=== PATIENT | female | born 1985 | race Caucasian/White ===

== ENCOUNTER 2017-08-25 17:19 | Emergency (ER) | payer MEDICAID, SELFPAY ==
[2017-08-25 17:21] VITALS: BP 165/117; PULSE 97; RESP 16; TEMP 36.7; O2SAT 100; BMI 36.6
--- NOTE | 2017-08-25 17:44 | EKG12_ITS ---
Test Reason : CP Blood Pressure : / mmHG Vent. Rate : 095 BPM Atrial Rate : 095 BPM P-R Int : 158 ms QRS Dur : 100 ms QT Int : 354 ms P-R-T Axes : 066 057 040 degrees QTc Int : 444 ms Normal sinus rhythm Nonspecific T wave abnormality Abnormal ECG Confirmed by LISE CASTAÑEDA, DONTRELL ([id number]), business editor BLANKA BRIGGS ([id number]) on 08/27/2017 3:35:40 PM Referred By: YEHUDA/DAVID Confirmed By:DONTRELL LEZAMA MD
[2017-08-25 18:12] LABS: Absolute Lymphocyte Count 1.82 X10^3/ul (0.83-4.51); Basophil# 0.02 X10^3/uL; Basophil% 0.3 % (0-1); Eosinophil# 0.06 X10^3/uL; Eosinophils% 0.8 % (0-5); Hematocrit 40.1 % (37-47); Hemoglobin 13.3 g/dl (12.0-15.0); Lymphocyte # 1.82 X10^3/ul (4.0); Lymphocyte % 24.3 % (19-41); Mean Corp Hgb Conc 33.2 g/gl (32-36); Mean Corpuscular Hgb 27.1 pg (27.0-32.0); Mean Corpuscular Volume 81.8 fL (81-99); Mean Platelet Vol. 9.5 fl (6.2-12.0); Monocyte# 0.55 X10^3/uL; Monocyte% 7.3 % (0-10); Neutrophil # 5.03 X10^3/uL (2.7-7.7); Neutrophil % 67.2 % (47-70); POSITIVE COUNT NO; POSITIVE DIFFERENTIAL NO; POSITIVE MORPHOLOGY NO; Platelet Count 319 K/mm3 (150-450); RBC Distribution Width CV 13.8 % (11.6-14.6); RBC Distribution Width SD 41.3 fl (35.1-43.9); White Blood Count 7.5 K/mm3 (4.4-11.0)
--- NOTE | 2017-08-25 18:25 | RAD_ITS ---
STUDY: X-RAY CHEST REASON FOR EXAM: Female, 32 years old. Chest pain TECHNIQUE: Single AP portable view of the chest. COMPARISON: None. 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 The lungs are clear and expanded. There is no demonstrated pleural abnormality. Normal size heart. Normal mediastinum and roland. Normal visualized pulmonary arteries. Normal visualized aortic arch and descending thoracic aorta. Normal visualized thoracic spine. Normal visualized ribs, clavicles, and shoulders. There is no demonstrated abnormality of the visualized soft tissue structures of the upper abdomen. RAD/Chest 1 View (Portable) IMPRESSION: Normal x-ray examination of the chest. Electronically Signed: Rhett Gage MD at 19:30 EDT , Service support ,
[2017-08-25 18:30] LABS: Anion Gap 6 (5-15); BUN 6 mg/dL (7-18); BUN/Creat Ratio 10.1 RATIO (10-20); Calcium,Total 9.2 mg/dL (8.5-10.1); Chloride 105 mmol/L (98-107); EST Glomerular Filtration Rate 126 mL/min (>60); Est Glom Filt Rate - Afr Amer 152 mL/min (>60); Estimated Creatinine Clearance 108.43 ml/min; Glucose 95 mg/dL (74-106); Potassium 3.4 mmol/L (3.5-5.1); Sodium Level 138 mmol/L (136-145)
--- NOTE | 2017-08-25 18:32 | CT_ITS ---
STUDY: CTA OF THE BRAIN REASON FOR EXAM: Female, 32 years old. Right arm weakness RADIATION DOSAGE (If Supplied By Facility): CTDIvol = ( 20.90 ) mGy, DLP = ( 2308.43 ) mGycm TECHNIQUE: CT angiography was performed with a multi-detector CT scanner. Data acquisition was obtained from the skull base through the vertex following intravenous administration of ml of . MIP images were reconstructed from the axial data set. Post-processing of the angiographic images was performed, with multiplanar reformation and 3D reconstruction. Individualized dose optimization techniques were used for this CT. COMPARISON: None. FINDINGS: Normal bilateral petrous carotid arteries. Normal right cavernous carotid artery with a normal supraclinoid bifurcation. Normal left cavernous carotid artery with a normal supraclinoid bifurcation. Normal right A1 segments of the anterior cerebral artery. Normal left A1 segments of the anterior cerebral artery. Anterior communicating artery not visualized consistent with normal variant. Normal bilateral A2 segments of the anterior cerebral arteries. Normal right M1 and M2 segments of the middle cerebral arteries, with a normal M1 bifurcation. Normal left M1 and M2 segments of the middle cerebral arteries, with a normal M1 bifurcation. Posterior communicating arteries are not identified consistent with normal variant. Normal bilateral vertebral arteries. Normal basilar artery with a normal basilar bifurcation. The visualized bilateral superior cerebellar (SCA) arteries are normal. Normal bilateral P1, P2 and visualized P3 segments of the posterior cerebral arteries. There is no demonstrated aneurysm of the [place]. There is no demonstrated abnormality of the visualized brain. CT/CTA Head W/WO Contrast IMPRESSION: Normal [place] without a demonstrated aneurysm or hemodynamically significant stenosis. Electronically Signed: Albert Nunez MD at 19:34 EDT , Service support ,
--- NOTE | 2017-08-25 18:32 | CT_ITS ---
STUDY: CTA NECK WITH CONTRAST REASON FOR EXAM: Female, 32 years old. Shortness of breath, right chest pain and right arm weakness dizziness elevated blood pressure RADIATION DOSAGE (If Supplied By Facility): CTDIvol = ( 20.90 ) mGy, DLP = ( 2308.43 ) mGycm TECHNIQUE: CT angiography with multi-detector data acquisition was performed from the aortic arch to the skull base following intravenous administration of 100ML ml of Isovue 370 contrast. MIP images were reconstructed from the axial data set. Post-processing of the angiographic images was performed, with multiplanar reformation and 3D reconstruction. The reconstructed images were obtained in the partial venous phase. Individualized dose optimization techniques were used for this CT. COMPARISON: None. FINDINGS: AORTIC ARCH: Normal visualized aortic arch. Normal origins of the brachiocephalic, left common carotid, and left subclavian arteries. RIGHT CAROTID ARTERIES: Normal right common carotid artery (CCA). Normal right common carotid bulb. Normal origin of the right internal carotid (ICA) artery without a hemodynamically significant stenosis. There is atherosclerotic tortuous elongation of the cervical portion of the right internal carotid artery. Normal origin of the right external carotid artery (ECA). LEFT CAROTID ARTERIES: Normal left common carotid artery (CCA). Normal left common carotid bulb. Normal origin of the left internal carotid (ICA) artery without a hemodynamically significant stenosis. Normal visualized cervical portion of the left internal carotid artery. Normal origin of the left external carotid artery (ECA). VERTEBRAL ARTERIES: Normal bilateral vertebral arteries. CT/CTA Neck W/WO Contrast IMPRESSION: Normal bilateral cervical carotid and vertebral arteries. Electronically Signed: Edelmira Livingston MD at 19:39 EDT Tel , Service support ,
--- NOTE | 2017-08-25 18:32 | CT_ITS ---
STUDY: CTA CHEST REASON FOR EXAM: Female, 32 years old. Chest pain and shortness of breath right arm weakness RADIATION DOSAGE (If Supplied By Facility): CTDIvol = ( 20.90 ) mGy, DLP = ( 2308.43 ) mGycm TECHNIQUE: The examination was performed with the intravenous administration of 100ML ml of Isovue 370 contrast material. Post-processing of the angiographic images was performed, with multiplanar reformation and 3D reconstruction. Individualized dose optimization techniques were used for this CT. COMPARISON: Chest x-ray August 25, 2017 FINDINGS: Normal enhancement of the main pulmonary artery and right and left pulmonary arteries. Normal enhancement of the bilateral peripheral pulmonary arteries. There is no demonstrated pulmonary embolism. Normal thoracic aorta and visualized great vessels. There is no demonstrated aortic dissection. Normal heart and pericardium. Normal mediastinum. Normal hilar regions. Normal visualized trachea and bronchi. There is motion artifact demonstrated. Allowing for motion artifact there is a suggestion of areas of possible air trapping within the lungs. Normal pleura. Normal chest wall structures. At T9-T10 there is a bridging osteophyte. The liver is borderline enlarged and fatty infiltrated. CT/CTA Chest W/WO Contrast IMPRESSION: Normal CTA chest examination, without a demonstrated pulmonary embolism or arterial dissection. There is substantial artifact on the lung windows allowing for this, there may be air trapping which can indicate underlying chronic obstructive pulmonary disease. Electronically Signed: Edelmira Livingston MD at 19:43 EDT Tel , Service support ,
[2017-08-25 18:38] VITALS: BP 154/86; PULSE 88; RESP 18; O2SAT 100
[2017-08-25 19:13] VITALS: BP 153/84; PULSE 96; RESP 26; O2SAT 97
[2017-08-25 19:56] LABS: Bacteria 0 SEEN /hpf (None Seen); Mucous, Urine 0 SEEN /hpf (<or=2+); Red Blood Cells-Urine 0 SEEN /hpf (0-5); White Blood Cells 0 SEEN /hpf (0-5)
[2017-08-25 20:10] VITALS: BP 150/83; PULSE 86; RESP 16; O2SAT 97
[2017-08-25 20:18] LABS: Color, Urine Yellow (Yellow); Glucose, Dipstick Normal (Normal); Ketone-Dipstick Negative (Negative); Leukocyte Esterase-Dipstick 25 /ul (Negative); Nitrite-Dipstick Negative (Negative); Occult Blood-Urine Negative /ul (Negative); Protein-Dipstick Negative (Negative); Specific Gravity, Urine 1.015 (1.002-1.030); Urine Bilirubin Dipstick Negative (Negative); Urine Clarity Clear (Clear); Urine Urobilinogen Normal (Normal)
[2017-08-25 20:24] LABS: Squamous Epithelial Cells - UA 0-5 SEEN /hpf (5-10)
[2017-08-25 20:27] LABS: Amphetamine Urine VISTA NEGATIVE (<1000 ng/mL); Barbiturate Urine VISTA NEGATIVE (< 200 ng/mL); Benzodiazepine Urine VISTA NEGATIVE (< 200 ng/mL); Cocaine Urine VISTA NEGATIVE (< 300 ng/mL); Ecstacy Urine VISTA NEGATIVE (< 500 ng/mL); Methadone Urine VISTA NEGATIVE (< 300 ng/mL); PCP Urine VISTA NEGATIVE (< 25 ng/mL); THC Urine VISTA NEGATIVE (< 50 ng/mL); Vista UDS pH Range 7
--- NOTE | 2017-08-25 20:49 | ED.DCSUM_ITS ---
- ER Visit Summary Date of Service: 08/25/17 Chief Complaint: Chest pain History of Present Illness: The patient is a 32 F presenting with right-sided chest pain. This started a couple of hours prior to arrival. Pain is on the right side of her chest. She complains of shortness of breath as well. Following the chest pain, she began having a tingling sensation in her right arm. She denies PE/DVT risk factors. She has a history of ADHD. She is not a smoker. No other complaints. Physical Examination: Vitals are stable. Patient is afebrile. Alert no acute distress. HEENT exam is unremarkable. Neck is supple. No meningismus Lungs are clear and equal bilaterally. Heart is regular rate and rhythm. Abdomen is soft nontender nondistended. Extremities are unremarkable. Skin is warm and dry. No focal neurologic deficit. NIH 0 Remainder of exam is unremarkable. Emergency Department Course and Treatment: Chest x-ray shows no acute process. CTA chest shows normal CTA chest examination, without a demonstrated pulmonary embolism or arterial dissection. There is substantial artifact on the lung windows allowing for this, there may be air trapping which can indicate underlying chronic obstructive pulmonary disease. CTA head and neck normal [place] without a demonstrated aneurysm or hemodynamically significant stenosis. Normal bilateral cervical carotid and vertebral arteries. EKG is sinus rate of 95. CBC, chemistries unremarkable. Troponin is negative. Urinalysis and urine tox are unremarkable. Patient now states that she is under a lot of stress. She states the tingling in her arm is resolved. When she arrived she was tachypneic, this is now improved. Her chest pain has resolved. She is advised to follow-up with her primary care physician. She is advised to return to ED if worsening complaints. Disposition: Discharge home Impression: Atypical chest pain, right upper extremity paresthesia This note was generated with [facility] dictation software. It may contain incorrect words, spelling, and punctuation that were not noted in review of the chart prior to signing ED Disposition - Plan for ED Patient: Chief Complaint: General Illness Referrals: Harriett Flood MD [Primary Care Provider] -
--- NOTE | 2017-08-25 20:52 | ED.DEP ---
ED Disposition - Plan for ED Patient: Chief Complaint: General Illness Instructions: ED Chest Pain Atypical Unkn Cause Referrals: Harriett Flood MD [Primary Care Provider] -
[2017-08-25 21:13] VITALS: BP 141/99; PULSE 87; RESP 18
== END 2017-08-25 21:14 | disposition home or self-care (01) ==
LOC: ED 18:20
PROVIDERS: Emergency Provider Emergency Medicine; Family Provider Internal Medicine; PCP Internal Medicine
DX: R07.89 Other chest pain (principal); R20.2 Paresthesia of skin; F90.9 Attention-deficit hyperactivity disorder, unspecified type
CPT/HCPCS: 70496; 70498; 71045; 71275; 80048; 80307; 81001; 84484; 85025; 93005; 99284; Q9967; A4216

== ENCOUNTER 2019-01-18 14:50 | Inpatient (IN) | payer MEDICAID, SELFPAY ==
[2019-01-18] MEDS: Lactated Ringers 1,000 ML 50 ML IV (15:55)
[2019-01-18] MEDS: Mag Hydrox/Al Hydrox/Simeth 30 ML UDC PO (16:33)
[2019-01-18 16:44] LABS: Absolute Lymphocyte Count 1.26 X10^3/uL (0.83-4.51); Absolute Neutrophil Count 7.9 X10^3/uL (2.0-7.7); Basophil# 0.02 X10^3/uL; Basophil% 0.2 % (0-1); Eosinophil# 0.09 X10^3/uL; Eosinophils% 0.9 % (0-5); Hemoglobin 11.3 g/dL (12.0-15.0); Lymphocyte # 1.26 X10^3/ul (4.0); Lymphocyte % 12.3 % (19-41); Mean Corp Hgb Conc 32.3 g/dL (32-36); Mean Corpuscular Hgb 26.5 pg (27.0-32.0); Mean Platelet Vol. 10.9 fl (6.2-12.0); Monocyte% 8.8 % (0-10); NRBC Flagged by Analyzer 0 % (0-5); Neutrophil # 7.88 X10^3/uL (2.7-7.7); Platelet Count 238 K/mm3 (150-450); RBC Distribution Width CV 13.6 % (11.6-14.6); RBC Distribution Width SD 40.1 fl (35.1-43.9); Red Blood Count 4.27 M/mm3 (4.2-5.4); White Blood Count 10.2 K/mm3 (4.4-11.0)
[2019-01-18 16:45] LABS: Protein, Urine (Random) 17.7 mg/dL (<11.9); Protein:Creat Ratio 258 mg/g CRE (0-200)
[2019-01-18 16:47] LABS: Partial Thromboplast Time 22.1 Seconds (24.1-36.2)
[2019-01-18 17:09] LABS: AST(SGOT) 19 U/L (15-37); Alanine Aminotransfer ALT/SGPT 22 U/L (13-56); Creatinine, Serum 0.43 mg/dL (0.55-1.02); EST Glomerular Filtration Rate 182 mL/min (>60); Est Glom Filt Rate - Afr Amer 220 mL/min (>60)
[2019-01-18] MEDS: Oxytocin 30 units/NS 500 ml 30 UNITS/500 ML IV.SOLN IV (17:09)
[2019-01-18 17:15] VITALS: BMI 47.2
[2019-01-18] MEDS: 0.9% Normal Saline 100 ML IV.SOLN. IY (17:44)
--- NOTE | 2019-01-18 17:51 | PCM.HP.OB ---
History Date of Admission: 01/18/19 Final [place]: 02/03/19 Gestational age: 37 Weeks and 5 Days History of this : This is a 33 year-old, 3 para 2 female who presents at 37-5/7 weeks gestation with elevated blood pressures in the office. Blood pressure in the office today was 154/92. Patient's had some mild intermittent visual changes but no diplopia. No severe headaches. No regular contractions. Good movement. No vaginal bleeding or leaking of fluid. No epigastric pain. Regnancy has been complicated to date by history of hypertension and previous pregnancies, history of depression, maternal obesity with BMI of 47. First 7 pounds 11 ounce at 40 weeks gestation induced for gestational hypertension, second 6 pound 8 ounces induced at 37-5/7 weeks for gestational hypertension. Allergies No Known Allergies Allergy (Verified 01/18/19 16:36) Home Medications: Home Medications Dextroamphetamine/Amphetamine [Adderall 10 mg Tablet] 10 mg PO BID 08/25/17 Multivitamin Tablet 01/18/19 Smoking Status: Former smoker Alcohol: None Number of Fetus(es): 1 History Past Pregnancies: Past Pregnancies Delivery Date Name GA/ Weeks Outcome Route Wt Infant Sex Labor Length Anesthesia Delivery Location Provider FOB Expected Infant Delivery Method: Spontaneous Vaginal Review of Systems Constitutional: Denies: Chills, Fever Eyes: Denies: Blurred vision Cardiovascular: Denies: Chest Pain Respiratory: Denies: Cough Gynecological: Denies: Vaginal bleeding Skin: Denies: Rash Neurological: Denies: Blurred vision, Double vision, Change in Speech Physical Exam General: Alert, Cooperative, No apparent distress Cardiovascular: Regular rate Lungs: Normal air movement Abdomen: Soft, Non-Distended, Gravid, Obese, Appropriate for Gestational Age Extremities:: Other - 2+edema Neurological: Cranial nerves II-XII grossly intact, Deep Tendon Reflexes 2+/4 and Symmetrical. Negative for: Clonus [employer] MEMBER: Normal external genitalia Estimated gestational size: Appropriate for gestational size Presentation: Cephalic Cervix Dilation (cm): 2 Station: -2 Effacement (%): 60 Assessment/Plan This is a 33 year-old, 3 para 2 at 37-5/7 weeks gestation for induction of labor due to gestational hypertension. Blood pressures are not in the severe range here. Will monitor closely. No evidence of preeclampsia with severe features. Risk benefits and alternatives to Costa induction were discussed with the patient, questions were answered to her satisfaction she desires to proceed. Consent was signed. We will proceed with Pitocin, Costa artificial rupture membranes if needed. Group B strep prophylaxis is initiated. May weight is less than 4500 g clinically, pelvis clinically adequate to expect vaginal delivery. Procedure note: Costa was placed over stylette into the internal cervical loss in the usual sterile fashion without difficulty. The balloon was inflated to 30 cc and placement over the internal loss was confirmed. Patient and fetus tolerated the procedure well.
[2019-01-18] MEDS: Lactated Ringers 500 ML 999 ML IV (20:21)
[2019-01-18] MEDS: fentaNYL-bupivacaine (epidural) 100 ML BAG EPIDURAL (21:50)
[2019-01-19] MEDS: Lactated Ringers 1,000 ML 200 ML IV (00:30)
[2019-01-19] MEDS: Oxytocin 30 units/NS 500 ml 30 UNITS/500 ML IV.SOLN 334 UNITS IV (01:42)
--- NOTE | 2019-01-19 01:56 | PCM.OPRPT ---
Vaginal Delivery Maternal Presentation: Medically Indicated Induction Method of Induction: Pitocin, Costa Bulb, Amniotomy Medical Reason for Induction: Gestational Hypertension Amniotic Membrane Rupture Type: Artificial Amniotic Fluid Description: Clear Final [place]: 02/03/19 Final [place] Source: US <20 weeks Gestational age: 37 Weeks and 6 Days Date of Procedure: 01/19/19 Pre-Operative Diagnosis: labor Post-Operative Diagnosis: same Surgery/ Procedure Performed: Spontaneous Vaginal Delivery Type of Anesthesia: Epidural Description of Procedure: A vigorous male infant was delivered ANIL over intact perineum. Tight nuchal cord x2 was easily reduced. The remainder the was delivered with maternal pushing and gentle traction only in less than 15 seconds. The Pitocin infusion was initiated for active management of the third stage. The cord was clamped and cut after 1 minute. The was attended to by the waiting nursing staff. The placenta was delivered spontaneously and intact. The cervix and vagina were intact. Sponge and needle counts were correct. A vaginal sweep was completed by me. Presentation: AARON Placental Delivery Description: Spontaneous Placenta Disposition: [facility] Cord Vessel Description: 3 Vessels Nuchal Cord Compression: Without compression Cord Entanglement: Around neck x 2, tight Drain: Costa to straight drain Estimated Blood Loss: 200 Infant A gender: Male (1 minute): 9 (5 minute): 9 Episiotomy Description: None Laceration: None Medications given after delivery: IV Pitocin Complications: None
[2019-01-19] MEDS: 0.9% Saline Lock 10 ML Syringe IV (04:37)
[2019-01-19 06:28] LABS: Hematocrit 35.2 % (37-47); Hemoglobin 11.4 g/dL (12.0-15.0); Mean Corp Hgb Conc 32.4 g/dL (32-36); Mean Corpuscular Hgb 26.6 pg (27.0-32.0); Mean Corpuscular Volume 82.2 fL (81-99); Mean Platelet Vol. 10.8 fl (6.2-12.0); Platelet Count 230 K/mm3 (150-450); RBC Distribution Width CV 13.6 % (11.6-14.6); RBC Distribution Width SD 40.2 fl (35.1-43.9); Red Blood Count 4.28 M/mm3 (4.2-5.4); White Blood Count 15.4 K/mm3 (4.4-11.0)
[2019-01-19] MEDS: Acetaminophen 500 MG Tablet 1000 MG PO ×2 (08:43→16:43)
[2019-01-19 08:50] VITALS: BP 130/63; PULSE 91; RESP 20; TEMP 36.3
[2019-01-19 12:00] VITALS: BP 123/72; PULSE 81; RESP 16; TEMP 36.2
[2019-01-19 15:39] VITALS: BP 150/89; PULSE 64; RESP 16; TEMP 36.5
[2019-01-19 16:00] VITALS: BP 126/74
[2019-01-19 19:36] VITALS: BP 140/77; PULSE 91; RESP 16; TEMP 36.2; O2SAT 98
[2019-01-20] VITALS (7 sets, daily range): BP systolic 107–141; BP diastolic 62–84; PULSE 72–99; RESP 16–18; TEMP 36.1–36.6; O2SAT 97
[2019-01-20] MEDS: Acetaminophen 500 MG Tablet 1000 MG PO ×2 (01:25→12:55)
[2019-01-20] MEDS: Ibuprofen 600 MG Tablet PO ×2 (08:37→20:40)
--- NOTE | 2019-01-20 09:15 | NURSING ---
Addendum entered by Nelda Carr 01/20/19 09:18: Labetalol 100 mg Original Note: Dr. Martínez in to see patient, wants to start patient on Labetalol TID precautionary for pt.s past high blood pressures and monitor for another 24 hours
[2019-01-20] MEDS: Labetalol 100 MG Tablet PO ×3 (09:45→22:35)
--- NOTE | 2019-01-20 09:47 | PCM.PN.OB ---
Subjective: pain well controlled, average lochia. Denies GUTIERREZ or visual changes, no epigastric pain - Physical Exam Vitals/I&O's: Vital Signs Temp Pulse Resp BP Pulse Ox 97.2 F L 72 16 126/63 H 98 01/20/19 08:15 01/20/19 08:15 01/20/19 08:15 01/20/19 08:15 01/19/19 19:36 Oxygen Delivery Method Room Air Weight: 117.027 kg Body Mass Index (BMI) 47.2 Intake and Output for Last 24 Hours 01/18/19 01/19/19 01/20/19 23:59 23:59 23:59 Intake Total 1482.57 / 1482.57 1530.50 / 1530.50 Output Total 450 / 450 1100 / 1100 Balance 1032.57 / 1032.57 430.50 / 430.50 General: Alert, Cooperative, No apparent distress Abdomen: Soft, Non-Distended, Tender - mildly, appropriately Extremities: Edema - 2+, - - 2+ DTRs, no clonus Current Medications Acetaminophen (Tylenol) 1,000 mg PO Q8H PRN PRN PRN Reason: Pain Score 1-310 Last Admin: 01/20/19 01:25 Dose: 1,000 mg Documented by: Bisacodyl (Dulcolax) 10 mg RECTAL UD PRN PRN Reason: If no BM Dibucaine (Dibucaine) 1 applic TOPICAL TID PRN PRN; Protocol PRN Reason: Discomfort Hydrocortisone (Hytone) 1 applic TOPICAL TID PRN PRN; Protocol PRN Reason: Discomfort Ibuprofen (Motrin) 600 mg PO Q6H PRN PRN PRN Reason: Pain Score 1-3/10 Last Admin: 01/20/19 08:37 Dose: 600 mg Documented by: Labetalol HCl (Trandate) 100 mg PO TID AMAYA Last Admin: 01/20/19 09:45 Dose: 100 mg Documented by: Methylergonovine Maleate (Methergine) 0.2 mg IM X1 PRN PRN Reason: Excess bleeding/uterine atony Ondansetron HCl (Zofran) 4 mg IV Q4H PRN PRN PRN Reason: Nausea Senna/Docusate Sodium (Senokot-S, Joslyn-Colace) 1 - 2 tablet PO DAILY PRN PRN PRN Reason: Constipation Simethicone (Mylicon) 80 mg PO PCHS PRN PRN Reason: Indigestion/Stomach pain Last Admin: 01/19/19 23:58 Dose: 80 mg Documented by: Sodium Chloride () 5 - 15 ml IV UD PRN PRN Reason: SALINE FLUSH Last Admin: 01/19/19 04:37 Dose: 10 ml Documented by: Medical Necessity - Tobacco Use Smoking Status: Former smoker Assessment/Plan PPD#1 s/p gest HTN, BPs elevated, no symptoms of preeclampsia. Start labetalol likely home tomorrow if BP stable and doing well
[2019-01-21 01:11] VITALS: BP 133/77; PULSE 94; RESP 18; TEMP 36.5; O2SAT 97
--- NOTE | 2019-01-21 05:12 | DCINST_ITS ---
Discharge Diet: No Restrictions Discharge Activity: Return to Normal Activity, May not drive while taking narcotic pain medications., May Shower May resume sexual activity in: 4-6 weeks Additional Activity Instructions:: Nothing in the vagina for 4-6 weeks. You may return to work/school in 6 weeks. Call your doctor if your incision/area has: Continuous Slow Oozing, Sudden Increased Bleeding, Increased Pain/ Swelling, Increased Redness, Foul Smelling Discharge Additional Instructions: If you experience any of the following, contact your healthcare provider. * Bleeding that soaks a pad every hour for 2 hours * Fever 100.4 or higher * Unrelieved incision or abdominal pain * Swelling, redness, discharge or bleeding from your incision or episiotomy site * Your incision begins to separate * Problems urinating (including inability to urinate or burning while urinating). * Visual changes * Severe headache * Flu-like symptoms * Pain or redness in one of both of your breasts * Pain, warmth, tenderness or swelling in your legs, especially the calf area * Frequent nausea and vomiting * Symptoms of depression or anxiety If you experience any of the following, call 911 or go to the nearest Emergency Room. * Chest pain * Problems breathing * Seizure activity * Partial or complete paralysis of a body part, slurred speech, weakness or drooping of the face, or a sudden inability to walk or hold your balance Allergies/Adverse Reactions: Allergies No Known Allergies Allergy (Verified 01/18/19 16:36) Medications to take at Discharge Multivitamin Tablet 01/18/19 Labetalol [Trandate (Beta Marce)] 100 mg PO TID #90 tab 01/21/19 The following prescriptions were given: Labetalol [Trandate (Beta Marce)] 100 mg PO TID #90 tab Transmission Status: Sent to [facility] Please Follow Up With: Sanna Martínez MD - [phone] When: Call to make an appointment with your doctor in 6 weeks. If you had elevated Blood Pressure or 4th degree laceration you will need to be seen in 2 weeks. Primary Care Physician: Harriett Flood MD [Primary Care Provider] - Test Results: Test results from this visit will be discussed in further detail at your follow- up appointment, if applicable.
--- NOTE | 2019-01-21 05:12 | PCM.DCVAG ---
Discharge Diet: No Restrictions Discharge Activity: Return to Normal Activity, May not drive while taking narcotic pain medications., May Shower May resume sexual activity in: 4-6 weeks Additional Activity Instructions:: Nothing in the vagina for 4-6 weeks. You may return to work/school in 6 weeks. Call your doctor if your incision/area has: Continuous Slow Oozing, Sudden Increased Bleeding, Increased Pain/ Swelling, Increased Redness, Foul Smelling Discharge Additional Instructions: If you experience any of the following, contact your healthcare provider. Bleeding that soaks a pad every hour for 2 hours Fever 100.4 or higher Unrelieved incision or abdominal pain Swelling, redness, discharge or bleeding from your incision or episiotomy site Your incision begins to separate Problems urinating (including inability to urinate or burning while urinating). Visual changes Severe headache Flu-like symptoms Pain or redness in one of both of your breasts Pain, warmth, tenderness or swelling in your legs, especially the calf area Frequent nausea and vomiting Symptoms of depression or anxiety If you experience any of the following, call 911 or go to the nearest Emergency Room. Chest pain Problems breathing Seizure activity Partial or complete paralysis of a body part, slurred speech, weakness or drooping of the face, or a sudden inability to walk or hold your balance Allergies/Adverse Reactions: Allergies No Known Allergies Allergy (Verified 01/18/19 16:36) Medications to take at Discharge Multivitamin Tablet 01/18/19 Labetalol [Trandate (Beta Marce)] 100 mg PO TID #90 tab 01/21/19 The following prescriptions were given: Labetalol [Trandate (Beta Marce)] 100 mg PO TID #90 tab Transmission Status: Sent to [facility] Please Follow Up With: Sanna Martínez MD - [phone] When: Call to make an appointment with your doctor in 6 weeks. If you had elevated Blood Pressure or 4th degree laceration you will need to be seen in 2 weeks. Primary Care Physician: Harriett Flood MD [Primary Care Provider] - Test Results: Test results from this visit will be discussed in further detail at your follow-up appointment, if applicable.
--- NOTE | 2019-01-21 05:37 | PCM.PN.OB ---
Subjective: Pain well controlled. Denies headache or visual changes. Has not been able to sleep. Would like to go home. Denies epigastric pain. - Physical Exam Vitals/I&O's: Vital Signs Temp Pulse Resp BP Pulse Ox 97.7 F L 94 18 133/77 H 97 01/21/19 01:11 01/21/19 01:11 01/21/19 01:11 01/21/19 01:11 01/21/19 01:11 Oxygen Delivery Method Room Air Weight: 117.027 kg Body Mass Index (BMI) 47.2 Intake and Output for Last 24 Hours 01/19/19 01/20/19 01/21/19 23:59 23:59 23:59 Intake Total 1530.50 / 1530.50 Output Total 1100 / 1100 Balance 430.50 / 430.50 General: Alert, Cooperative, No apparent distress Extremities: Edema - trace Neurological: Cranial nerves II-XII grossly intact, - - no clonus, 2+ DTRs Current Medications Acetaminophen (Tylenol) 1,000 mg PO Q8H PRN PRN PRN Reason: Pain Score 1-310 Last Admin: 01/20/19 12:55 Dose: 1,000 mg Documented by: Bisacodyl (Dulcolax) 10 mg RECTAL UD PRN PRN Reason: If no BM Dibucaine (Dibucaine) 1 applic TOPICAL TID PRN PRN; Protocol PRN Reason: Discomfort Hydrocortisone (Hytone) 1 applic TOPICAL TID PRN PRN; Protocol PRN Reason: Discomfort Ibuprofen (Motrin) 600 mg PO Q6H PRN PRN PRN Reason: Pain Score 1-310 Last Admin: 01/20/19 20:40 Dose: 600 mg Documented by: Labetalol HCl (Trandate) 100 mg PO TID AMAYA Last Admin: 01/20/19 22:35 Dose: 100 mg Documented by: Methylergonovine Maleate (Methergine) 0.2 mg IM X1 PRN PRN Reason: Excess bleeding/uterine atony Ondansetron HCl (Zofran) 4 mg IV Q4H PRN PRN PRN Reason: Nausea Senna/Docusate Sodium (Senokot-S, Joslyn-Colace) 1 - 2 tablet PO DAILY PRN PRN PRN Reason: Constipation Simethicone (Mylicon) 80 mg PO PCHS PRN PRN Reason: Indigestion/Stomach pain Last Admin: 01/19/19 23:58 Dose: 80 mg Documented by: Sodium Chloride () 5 - 15 ml IV UD PRN PRN Reason: SALINE FLUSH Last Admin: 01/19/19 04:37 Dose: 10 ml Documented by: Medical Necessity - Tobacco Use Smoking Status: Former smoker Assessment/Plan day #2 status post vaginal delivery. Blood pressures are stable on labetalol. No symptoms of preeclampsia. Okay to discharge home on labetalol, follow-up in the office within 1 week for blood pressure check. Call or return for any symptoms of preeclampsia. is breast-feeding and doing well.
[2019-01-21] MEDS: Labetalol 100 MG Tablet PO (05:49)
[2019-01-21 08:43] VITALS: BP 143/71; PULSE 98; RESP 18; TEMP 36
--- NOTE | 2019-01-21 09:10 | NURSING ---
mother dc off unit with baby on lap at this time.
== END 2019-01-21 09:10 | disposition home or self-care (01) | DRG 560 ==
PROVIDERS: Admitting Provider Obstetrics & Gynecology; Family Provider Internal Medicine; PCP Internal Medicine; Referring Provider Obstetrics & Gynecology; Visit Provider Obstetrics & Gynecology
DX: O13.4 Gestational [pregnancy-induced] hypertension without significant proteinuria, complicating childbirth (principal); O69.1XX0 Labor and delivery complicated by cord around neck, with compression, not applicable or unspecified; O60.14X0 Preterm labor third trimester with preterm delivery third trimester, not applicable or unspecified; O99.214 Obesity complicating childbirth; E66.9 Obesity, unspecified; Z3A.37 37 weeks gestation of pregnancy; Z37.0 Single live birth; Z87.891 Personal history of nicotine dependence
CPT/HCPCS: 59050; 82565; 82570; 84156; 84450; 84460; 84550; 85025; 85027; 85610; 85730; 86850; 86900; 86901; 99218; J7120; A4216; G0378

== ENCOUNTER 2021-07-27 12:01 | Emergency (ER) | payer MEDICAID, SELFPAY ==
[2021-07-27 12:03] VITALS: BP 163/114; PULSE 104; RESP 18; TEMP 36.4; O2SAT 99; BMI 36.6
--- NOTE | 2021-07-27 13:39 | EDS_ITS ---
HPI HPI - GI History of Present Illness Chief Complaint: Abd Pain Narrative Narrative: 35-year-old female presenting with epigastric pain. She states that sharp in nature. Patient states it started last night and it has been intermittent. Patient took Kaopectate last night with minimal relief. She states he has a history of GERD but only in . Patient has nausea without vomiting. She denies diarrhea or constipation. Denies fever or chills. She has no urinary complaints. Patient does states that her left lower back hurts. She states that this is not severe and it is a mild dull pain. She is not sure if she is anything to injure it. No known trauma. Patient has no loss of bladder bowel control. No urinary tension or saddle anesthesia. PFSH PFSH Medical History ADHD Home Medications Multivitamin Tablet 01/18/19 [History Last Taken 01/16/19] labetalol 100 mg PO TID #90 tab 01/21/19 [Rx Last Taken Unknown] ondansetron 4 mg PO Q8H PRN #14 tab 07/27/21 [Rx Last Taken Unknown] pantoprazole [Protonix] 40 mg PO DAILY #30 tab 07/27/21 [Rx Last Taken Unknown] Allergy/AdvReac Type Severity Reaction Status Date / Time No Known Allergies Allergy Verified 07/27/21 12:03 Surgical History no surgical history Social History Smoking Status: Former smoker ROS ROS ED Constitutional Constitutional ED: Denies chills or fever(s) ENT ENT ED: Denies rhinorrhea or sore throat Cardiovascular Cardiovascular: Denies chest pain or palpitations Respiratory/Chest Respiratory/Chest: Denies cough, dyspnea or sputum Gastrointestinal Gastrointestinal: Reports abdominal pain and nausea; Denies constipation, diarrhea or vomiting Genitourinary Genitourinary ED: Denies dysuria or hematuria Musculoskeletal Musculoskeletal: Reports back pain; Denies arthralgias, myalgias or neck pain Integumentary Denies rash Neurologic Neurologic: Denies headache(s) Psychiatric Psychiatric: Denies anxiety or depression Endocrine Endocrinology: Denies polydipsia or polyuria Hematologic/Lymphatic Hematologic/Lymphatic: Denies easy bleeding or easy bruising EXAM Physical Exam Const Vital Signs: 07/27/21 12:03 07/27/21 15:59 Temperature 97.6 F L Temperature Source Temporal Pulse Rate 104 H Respiratory Rate 18 Blood Pressure 163/114 H 141/75 H Blood Pressure Mean 130 Pulse Ox 99 95 Oxygen Delivery Method Room Air Positive well nourished General Appearance ED: NAD; Negative for pallor HEENT Reports moist mucous membranes normocephalic and atraumatic Eyes PERRL and EOMs intact bilaterally General Eye ED: Negative for pale conjunctiva or scleral icterus Neck supple Resp normal respiratory effort and clear to auscultation bilaterally Cardio regular rate and regular rhythm GI non-distended Auscultation: normoactive bowel sounds Palpation: soft and tender epigastric Back/Spine no CVA tenderness Lumbar Spine / Lower Back: Negative for lumbar spinal tenderness Neuro Sensorium / Orientation: alert, oriented to person, oriented to place and oriented to time Psych mental status grossly normal Skin No no wounds General Skin Exam: Negative for jaundice or pallor Lesions: no lesions Rashes: no rashes MDM MDM MDM Narrative Medical decision making narrative: 35-year-old female presenting with epigastric pain which is sharp and intermittent. She states is worse with eating and typically happens about 30 minutes after meals. Her abdominal exam benign. Negative Sherwood sign. Blood work is obtained and her CBC and CMP are normal. Lipase negative. Urinalysis negative for infection. Patient was treated with Zofran and a GI cocktail and states she has not had a return of her pain. I will discharge home with Protonix and Zofran. I told her about when to avoid while her stomach is upset. She can advance her diet as tolerated. I do not believe at this time with normal lab work and a benign exam that the patient needs any imaging. Impression: 1. Epigastric pain 2. Nausea Lab Data Attestation: I reviewed the patient's lab results. Labs: Laboratory Results - last 24 hr 07/27/21 07/27/21 07/27/21 13:45 13:45 13:50 WBC 6.4 RBC 5.20 Hgb 13.8 Hct 41.4 MCV 79.6 L MCH 26.5 L MCHC 33.3 RDW Std Deviation 40.9 RDW Coeff of María 14.1 Plt Count 343 MPV 9.6 Immature Gran % (Auto) 0.300 Neut % (Auto) 81.0 H Lymph % (Auto) 9.5 L Stephenson % (Auto) 8.7 Eos % (Auto) 0.3 Baso % (Auto) 0.2 Absolute Neuts (auto) 5.2 Absolute Lymphs (auto) 0.61 L Nucleated RBC % 0 Sodium 138 Potassium 3.6 Chloride 105 Carbon Dioxide 25.0 Anion Gap 8 BUN 6 L Creatinine 0.61 Estim Creat Clear Calc 103.75 Est GFR (MDRD) Af Amer 145 Est GFR (MDRD) Non-Af 120 BUN/Creatinine Ratio 9.9 L Glucose 92 Calcium 9.1 Total Bilirubin 0.50 AST 12 L ALT 20 Alkaline Phosphatase 85 Total Protein 7.8 Albumin 4.2 Globulin 3.6 Albumin/Globulin Ratio 1.2 Lipase 139 Urine Color Yellow Urine Clarity Sl. Cloudy Urine pH 6.0 Ur Specific [place] 1.020 Urine Protein 30 H Urine Glucose (UA) Normal Urine Ketones 5 H Urine Occult Blood Negative Urine Nitrite Negative Urine Bilirubin Negative Urine Urobilinogen Normal Ur Leukocyte Esterase 25 H Urine RBC 0 SEEN Urine WBC 0-5 SEEN Ur Squamous Epith Cells 0-5 SEEN Urine Bacteria RARE Urine Mucus 0 SEEN Urine Test Negative Discharge Plan Triage Chief Complaint: Abd Pain Other Complaint: Nausea/Vomiting ED Provider: Malick Saucedo Dx/Rx/DC Orders Instructions: ED Abdominal Pain Unkn Cause Fem, ED PEPTIC ULCER vs GASTRITIS Prescriptions: New pantoprazole [Protonix] 40 mg tablet,delayed release (DR/EC) 40 mg PO DAILY Qty: 30 RF: 0 ondansetron 4 mg tablet,disintegrating 4 mg PO Q8H PRN (Reason: nausea and vomiting) Qty: 14 RF: 0 No Action Multivitamin Tablet RF: 0 labetalol 100 MG tablet 100 mg PO TID Qty: 90 RF: 0 Primary Care Provider: Harriett Flood Referrals: Harriett Flood MD [Primary Care Provider] - Disposition Disposition: Home, Self Care Discharge Date/Time: 07/27/21 16:00
[2021-07-27 13:59] LABS: Absolute Lymphocyte Count 0.61 X10^3/uL (0.83-4.51); Absolute Neutrophil Count 5.2 X10^3/uL (2.0-7.7); Basophil# 0.01 X10^3/uL; Basophil% 0.2 % (0-1); Eosinophil# 0.02 X10^3/uL; Eosinophils% 0.3 % (0-5); Hematocrit 41.4 % (37-47); Hemoglobin 13.8 g/dL (12.0-15.0); Lymphocyte # 0.61 X10^3/ul (0.83-4.51); Lymphocyte % 9.5 % (19-41); Mean Corp Hgb Conc 33.3 g/dL (32-36); Mean Corpuscular Hgb 26.5 pg (27.0-32.0); Mean Corpuscular Volume 79.6 fL (81-99); Mean Platelet Vol. 9.6 fl (6.2-12.0); Monocyte# 0.56 X10^3/uL; Monocyte% 8.7 % (0-10); NRBC Flagged by Analyzer 0 % (0-5); Neutrophil # 5.21 X10^3/uL (2.7-7.7); Platelet Count 343 K/mm3 (150-450); RBC Distribution Width CV 14.1 % (11.6-14.6); RBC Distribution Width SD 40.9 fl (35.1-43.9); White Blood Count 6.4 K/mm3 (4.4-11.0)
[2021-07-27 14:02] LABS: Mucous, Urine 0 SEEN /hpf (<or=2+); Red Blood Cells-Urine 0 SEEN /hpf (0-5)
[2021-07-27] MEDS: Ondansetron 4 MG/2 ML Vial IV (14:02)
[2021-07-27] MEDS: Mag Hydrox/Al Hydrox/Simeth 30 ML UDC PO (14:03)
[2021-07-27 14:05] LABS: Color, Urine Yellow (Yellow); Glucose, Dipstick Normal (Normal); Ketone-Dipstick 5 mg/dl (Negative); Leukocyte Esterase-Dipstick 25 /ul (Negative); Nitrite-Dipstick Negative (Negative); Occult Blood-Urine Negative /ul (Negative); Protein-Dipstick 30 mg/dl (Negative); Urine Bilirubin Dipstick Negative (Negative); Urine Clarity Sl. Cloudy (Clear); Urine Urobilinogen Normal (Normal)
[2021-07-27 14:06] LABS: Internal QC Validated? YES +Cl - CLEAR BKGD; Pregnancy, Urine Negative Negative
[2021-07-27 14:12] LABS: Squamous Epithelial Cells - UA 0-5 SEEN /hpf (5-10); White Blood Cells 0-5 SEEN /hpf (0-5)
[2021-07-27 14:13] LABS: Bacteria RARE /hpf (None Seen)
[2021-07-27 14:17] LABS: ALB/GLOB Ratio 1.2 RATIO (0.9-2.4); AST(SGOT) 12 U/L (15-37); Alanine Aminotransfer ALT/SGPT 20 U/L (13-56); Albumin, Serum 4.2 g/dL (3.2-5.0); Alkaline Phosphatase 85 U/L (45-117); Anion Gap 8 (5-15); BUN 6 mg/dL (7-18); BUN/Creat Ratio 9.9 RATIO (10-20); Calcium,Total 9.1 mg/dL (8.5-10.1); Chloride 105 mmol/L (98-107); Creatinine, Serum 0.61 mg/dL (0.55-1.02); EST Glomerular Filtration Rate 120 mL/min (>60); Est Glom Filt Rate - Afr Amer 145 mL/min (>60); Estimated Creatinine Clearance 103.75 ml/min; Globulin 3.6 g/dL (2.2-4.2); Glucose 92 mg/dL (74-106); Lipase 139 U/L (73-393); Potassium 3.6 mmol/L (3.5-5.1); Protein, Total 7.8 g/dL (6.4-8.2); Sodium Level 138 mmol/L (136-145)
[2021-07-27] MEDS: Acetaminophen 500 MG Tablet 1000 MG PO (14:37)
[2021-07-27 15:59] VITALS: BP 141/75; O2SAT 95
== END 2021-07-27 16:00 | disposition home or self-care (01) ==
PROVIDERS: Emergency Provider Student in an Organized Health Care Education/Training Program; PCP Internal Medicine; Visit Provider Student in an Organized Health Care Education/Training Program
DX: R11.2 Nausea with vomiting, unspecified (principal); Z87.891 Personal history of nicotine dependence; R10.13 Epigastric pain; F90.9 Attention-deficit hyperactivity disorder, unspecified type
CPT/HCPCS: 80053; 81001; 81025; 83690; 85025; 96374; 99284; A4216; J2405

== ENCOUNTER 2021-11-09 06:33 | Day surgery (SDC) | payer MEDICAID, SELFPAY ==
--- NOTE | 2021-10-23 12:39 | PCM.HP.BLA ---
History and Physical Date of Admission: 10/26/21 HPI: The patient is a 36 year old female presenting for pre-operative visit. She is scheduled for Laparoscopic bilateral salpingectomy, for sterilization on 11/09/21. Procedure discussed along with risks, benefits and complications. Other alternatives discussed for management. Consent form signed? Yes. ? ? PAST MEDICAL HISTORY PAST MEDICAL HISTORY Diagnosis Date ? Abnormal Pap smear of cervix 2015 ? ASCUS pap , negative HPV ? Adult attention deficit disorder ? ? Obesity, unspecified ? ? ? PAST SURGICAL HISTORY PAST SURGICAL HISTORY Procedure Laterality Date ? ADENOIDECTOMY PRIMARY <AGE 14 ? ? ? Adenoidectomy ? PAST SURGICAL HISTORY OF ? ? ? normal vaginal delivery ? PAST SURGICAL HISTORY OF ? 10/2013 ? wisdom teeth ? TONSILLECTOMY PRIMARY/SECONDARY <AGE 14 ? CURRENT MEDICATIONS Current Outpatient Medications Medication Sig Dispense Refill ? MULTIVITAMIN ORAL Take by mouth. ? ? ? ADDERALL 30 mg tablet Take 1 tablet by mouth twice daily for 30 days. May fill today, October 17, 2021. 60 tablet 0 ? clindamycin (CLEOCIN-T) 1 % gel Apply to affected area twice daily. (Patient not taking: No sig reported) 30 g 0 ? No current facility-administered medications for this visit. ? ? ALLERGIES: Seasonal Allergies ? PERSONAL HISTORY: SOCIAL HISTORY Social History ? Tobacco Use ? Smoking status: Former ? ? Types: Cigarettes ? ? Quit date: 06/03/2008 ? ? Years since quittin.3 ? Smokeless tobacco: Never ? Tobacco comments: ? ? 2 Cigarettes per week Vaping Use ? Vaping Use: Never used Substance Use Topics ? Alcohol use: No ? Drug use: No ? FAMILY HISTORY: FAMILY HISTORY FAMILY HISTORY Problem Relation Age of Onset ? Arthritis Mother ? ? Lipids Mother ? ? No Known Problems Father ? ? Headache Sister ? ? No Known Problems Brother ? ? No Known Problems Brother ? ? Diabetes Maternal Grandmother ? ? Arthritis Maternal Grandmother ? ? Heart Maternal Grandmother ? ? Hypertension Maternal Grandmother ? ? Psychiatry Maternal Grandmother ? ? Alcohol/Drug Maternal Grandfather ? ? Arthritis Maternal Grandfather ? ? Heart Maternal Grandfather ? ? Hypertension Maternal Grandfather ? ? Diabetes Paternal Grandmother ? ? Arthritis Paternal Grandmother ? ? No Known Problems Son ? ? No Known Problems Other ? ? No Known Problems Daughter ? ? ? REVIEW OF SYMPTOMS: GENERAL: denies fevers or chills ENDOCRINOLOGY: has not been on steroids Cardiology : denies palpitations or chest pain Respiratory: denies SOB or cough Hematology: denies history of prolonged bleeding or easy bruising or VTE Allergy: Denies history of personal or family history of allergy to anesthesia ? PHYSICAL EXAMINATION: ? VITALS: Last menstrual period 09/13/2021. ? GENERAL: The patient is well nourished, well hydrated in no acute distress. , The patient is oriented to time, place, and person. NECK: Supple. No lynphadenopathy, normal thyroid, no thyromegaly. LUNGS: Clear to auscultation bilaterally. no wheezes, rhonchi or rales HEART: Regular rate and rhythm, Normal heart sounds, and No murmurs or gallops ? IMPRESSION: sterilization request ? PLAN: The risks/benefits/alternatives and personal involved for the planned laparoscopic bilateral salpingectomy were reviewed with the patient. Her questions were answered to her satisfaction and she desires to proceed. Consent was signed. I reviewed with her postop instructions and expectations. Risks, benefits and alternatives to sterilization have been discussed with the patient. She declines reversible options including LARC. She understands sterilization is permanent, irreversible, risks of failure, regret and ectopic. In addition she understands there are surgical risks as well. Her questions were answered to her satisfaction and consent was signed ? ? I have reviewed and updated past medical and surgical history, Assessment & Plan Assessment/Plan (1) Sterilization:
[2021-11-09 07:19] LABS: Hematocrit 37.3 % (37-47); Hemoglobin 11.9 g/dL (12.0-15.0); Mean Corp Hgb Conc 31.9 g/dL (32-36); Mean Corpuscular Volume 81.4 fL (81-99); Mean Platelet Vol. 9.5 fl (6.2-12.0); Platelet Count 351 K/mm3 (150-450); RBC Distribution Width CV 14.6 % (11.6-14.6); RBC Distribution Width SD 42.7 fl (35.1-43.9); Red Blood Count 4.58 M/mm3 (4.2-5.4); White Blood Count 4.9 K/mm3 (4.4-11.0)
[2021-11-09] MEDS: Acetaminophen 500 MG Tablet 1000 MG PO (07:21)
[2021-11-09 07:22] LABS: Internal QC Validated? YES +Cl - CLEAR BKGD; Pregnancy, Urine Negative Negative
[2021-11-09] MEDS: Celecoxib 200 MG Capsule PO (07:22)
[2021-11-09 07:24] VITALS: BP 137/98; PULSE 74; RESP 18; TEMP 36.2; O2SAT 100; BMI 38.8
--- NOTE | 2021-11-09 07:45 | FALS_PTH ---
PATIENT: CANDICE WORLEY [place] [facility] [id number] AGE/SX: 36/F ROOM: RE11/09/[address]: Dr. Sanna Martínez MD : 1985 BED: DIS: 11/09/2021 SPEC #: [id number] RECD: 11/09/21 12:22 STATUS: ASHLEY REAlanna #: [id number] VINAY: 11/09/21 07:[address]: Sanna Martínez DEPT: SURGICAL PATHOLOGY RECD BY: Misti Campuzano ENTERED: 11/09/21 12:51 SP TYPE: FALL TUBES OTHR DR: Dr. Harriett Flood MD Tissues: Fallopian tube Procedures: Surgery Specimen Level II HEADER OPERATION: Laparoscopic salpingectomy PRE-OP DIAGNOSIS: Desires tubal sterilization TISSUE SUBMITTED: Bilateral fallopian tubes MICROSCOPIC DIAGNOSIS Bilateral fallopian tubes, salpingectomy: Bilateral fallopian tubes, no pathologic diagnosis. Bilateral paratubal cysts. SJ:emily 11/13/2021 MICROSCOPIC DESCRIPTION Slides are reviewed. GROSS DESCRIPTION Received in fixative is one container labeled with the patient's name and designated bilateral fallopian tubes. The specimen consists of bilateral fallopian tubes including fimbrial ends measuring 7 cm in length and 0.6 cm in diameter and 3.5 cm in length and 0.6 cm in diameter. Two small segments of fallopian tubes are also noted measuring 1.1 and 1.5 cm in length and 0.5 cm in diameter. One of the fallopian tubes also show a paratubal cyst measuring 0.5 cm in greatest dimension. The second fallopian tube also shows a cyst filled with clear fluid measuring 0.5 cm in greatest dimension. The fallopian tubes are not identified as right or left. Sections reveal unremarkable cut surfaces. Ordnance Officer sections are submitted in two cassettes as follows: 1 ? one fallopian tube and paratubal cyst, 2 ? second fallopian tube, paratubal cyst and detached segment of fallopian tube. / AMAURI:emily 11/09/2021 TC:5 CPT: 71572 x2
[2021-11-09] MEDS: Lactated Ringers 1,000 ML 75 ML IV (08:00)
--- NOTE | 2021-11-09 08:15 | DCINST_ITS ---
Discharge Instructions Diet Discharge Diet: No restrictions Activity Discharge Activity: May Drive (11/11/21 as tolerated) Return to work on:: 11/15/21 May shower in (days): 1 May resume sexual activity in: 1 week Dressing / Incision Call your doctor if your incision/area has: Continuous Slow Oozing, Sudden Increased Bleeding and Foul Smelling Discharge Call your doctor if you observe: Fever of 101 or Higher Remove Dressing in: leave until fall off Cleanse incision/area with: Soap & Water Follow Up Care Please Follow Up With: Sanna Martínez MD When: 1-2 weeks as needed Test Results: Test results from this visit will be discussed in further detail at your follow- up appointment, if applicable. Discharge Plan Admission Primary Reason for Your Visit: Tubal sterilization Attending Provider: Sanna Martínez Primary Care Provider: Harriett Flood Discharge Orders/Prescriptions Prescriptions: New ibuprofen [ibuprofen] 600 MG tablet 600 mg PO Q6H PRN (Reason: Pain) 10 Days Qty: 30 1RF Continued multivitamin Tablet 1 tab PO DAILY dextroamphetamine-amphetamine [Adderall] 30 mg tablet 30 mg PO BID Label Comments: TAKE 1 TABLET BY MOUTH 2CTIMES A DAY Referrals / Follow Up: Harriett Flood MD [Primary Care Provider] - Disposition Disposition (needs filled in before D/C Order can be placed): Home, Self Care
--- NOTE | 2021-11-09 08:17 | OP.PCM_ITS ---
Problems Associated Problem List Diagnoses (1) Sterilization: Report of Operation Date of Procedure: 11/09/21 Pre-Operative Diagnosis: Sterilization request Post-Operative Diagnosis: same Surgery/Procedure Performed:: laparoscopic bilateral salpingectomy Surgeon: Sanna Martínez glove presser: Sanford Wu m3 Type of Anesthesia: General Anesthesiologist: Charan Pearson Special Medications: none Specimen's removed: bilateral fallopian tubes Drains: none Estimated Blood Loss (mL): 10 Fluids Replaced: 900 Description of Procedure: The patient was taken to the operating room where she was prepped and draped in the dorsolithotomy position. A weighted speculum was placed in the vagina and the anterior lip of the cervix was grasped with a tenaculum. The Oneal uterine manipulator was placed and the remainder of the instruments were removed from the vagina. Attention was turned to the abdomen. All port sites were infiltrated with 0.5% Marcaine before skin incisions were made. A 5 mm [intraumbilical] incision was made. The anterior abdominal wall was tented up with 2 towel clamps while a 5 mm blade less trocar and sleeve were [directly inserted]. Intraperitoneal place ment was confirmed with the laparoscope. The pneumoperitoneum was created and the underlying abdominal contents were intact. The patient was placed in Trendelenburg. Right and left lower quadrant ports were placed under direct visualization lateral to the inferior epigastric vessels. The bowel was swept away and the above findings were noted. The LigaSure device was used to clamp seal and transect the antimesenteric portions of the right tube to the cornual insertion of the uterus. The tube was amputated from the uterus and the pedicles were all confirmed to be hemostatic. The same procedure was performed on the contralateral side. The specimens were brought out through a 5 mm port. The pedicles were again examined and found to be hemostatic. The lateral ports were removed under direct visualization and no active bleeding was noted. The pneumoperitoneum was released. The skin incisions were closed with Monocryl suture in a subcuticular fashion and skin glue by me. I performed the entire procedure with assistance. The vaginal instruments were removed and the vaginal sweep was completed by me. All sponge and needle counts were correct and the patient was taken to the recovery room in stable condition. L Grafts/Implants Used: none Procedure Start Time: 08:58 Procedure Stop Time: 09:31 Complications none Admit VTE Documentation VTE Present on Admission: No VTE Mechan Device Prophylaxis: SCD's VTE Pharm Prophylaxis ordered?: No Reason prophylaxis not ordered:: Procedure Not Indicated
[2021-11-09] MEDS: Bupivacaine 0.25% 30 ML Vial (08:31)
[2021-11-09 09:08] VITALS: BP 137/98; BP 150/104; PULSE 85; RESP 12; TEMP 36.2; O2SAT 93
[2021-11-09 09:15] VITALS: BP 137/98; BP 149/98; PULSE 88; RESP 16; O2SAT 98
[2021-11-09 09:30] VITALS: BP 137/98; BP 141/106; PULSE 71; RESP 16; O2SAT 95
[2021-11-09 09:34] VITALS: BP 137/98; BP 138/93; PULSE 63; RESP 16; TEMP 36.2; O2SAT 96
[2021-11-09] MEDS: traMADol 50 MG Tablet PO (10:02)
[2021-11-09 10:19] VITALS: BP 137/98; BP 142/90; PULSE 68; RESP 18; TEMP 36.2; O2SAT 97
== END 2021-11-09 10:32 | disposition home or self-care (01) ==
LOC: SDC 06:35 → AC 06:36
PROVIDERS: PCP Internal Medicine; Referring Provider Obstetrics & Gynecology; Visit Provider Obstetrics & Gynecology
PROC: (CPT 58661; principal; 2021-11-09 07:30)
DX: Z30.2 Encounter for sterilization (principal); F17.210 Nicotine dependence, cigarettes, uncomplicated; F90.0 Attention-deficit hyperactivity disorder, predominantly inattentive type; N83.8 Other noninflammatory disorders of ovary, fallopian tube and broad ligament
CPT/HCPCS: 58661; 00840; 81025; 85027; 88302; J7120; C1760; J2405

== ENCOUNTER 2022-06-22 16:42 | Emergency (ER) | payer MEDICAID, SELFPAY ==
[2022-06-22 16:43] VITALS: BP 167/90; PULSE 94; RESP 16; TEMP 36.6; O2SAT 100; BMI 38.4
--- NOTE | 2022-06-22 17:05 | EDS_ITS ---
HPI History of Present Illness Chief Complaint: Burn Detail of Chief Complaint: Burn/rash in the area of the right and left knee. Onset/Context/Timing Onset: Days Context: Sudden Onset Timing: Continuous Quality: Erythematous rash with pustules and drainage Location: In the proximity of the right and left knee more so inferior than superior Current Severity: Moderate Maximum Severity: Moderate Worsened by: Nothing specific Relieved by: Nothing Associated Symptoms Associated Symptoms: None Narrative Narrative: Patient is a 36-year-old woman who states her and her were trying to save money by pouring their own cement. She apparently kneeled on cement. She developed a rash. She subsequently placed triple antibiotic ointment on it. She now presents because of pustules and drainage. She denies fever, chills night sweats. No systematic fever, heart murmur, SBE, mitral valve prolapse and is on no immunosuppressive meds. She denies history of diabetes or symptoms of diabetes. Prior similar symptoms: No Recent Illness/Hospitalization: No PFSH PFS Medical History ADHD Alcohol use Anxiety Depression Former smoker Hx of vaginal delivery Hypertension Migraine headache Wears glasses Home Medications dextroamphetamine-amphetamine 30 mg tablet (Adderall) 30 mg PO BID 11/08/21 [History Last Taken Unknown] multivitamin 1 tab PO DAILY 11/08/21 [History Last Taken Unknown] ibuprofen 600 mg tablet 600 mg PO Q6H PRN Pain 10 days #30 TABLETS 11/09/21 [Rx Last Taken Unknown] doxycycline monohydrate 100 mg capsule 100 mg PO BID #10 CAPSULES 06/22/22 [Rx Last Taken Unknown] Allergy/AdvReac Type Severity Reaction Status Date / Time No Known Allergies Allergy Verified 06/22/22 16:46 Surgical History History of tonsillectomy and adenoidectomy Social History (Updated 06/22/22 @ 17:[address] Johnny Barney MD) household members: spouse Smoking Status: Former smoker substance use type: does not use ROS ROS ED Constitutional Constitutional ED: Denies chills, fever(s), subjective, sweats or weight loss Eyes Eyes: Denies blurry vision, change in vision or diplopia ENT ENT ED: Denies ear pain, rhinorrhea or sore throat Cardiovascular Cardiovascular: Denies palpitations or racing heartbeat Respiratory/Chest Respiratory/Chest: Denies dyspnea Gastrointestinal Gastrointestinal: Denies nausea or vomiting Genitourinary Genitourinary ED: Reports other Details: Patient denies any signs or symptoms of . Integumentary Reports rash Hematologic/Lymphatic Hematologic/Lymphatic: Reports systems reviewed and no addt'l complaints, except as documented EXAM Physical Exam Const Vital Signs: 06/22/22 16:43 Temperature 97.8 F Temperature Source Temporal Pulse Rate 94 Respiratory Rate 16 Blood Pressure 167/90 H Blood Pressure Mean 115 Pulse Ox 100 Oxygen Delivery Method Room Air Positive well nourished, well developed and obese General Appearance ED: well developed and NAD; Negative for cyanotic, diaphoretic or pallor Nutritional Appearance: obese HEENT Reports moist mucous membranes HEENT Narrative: Head is atraumatic normocephalic. Ears normal. Nares patent. Eyes PERRL and EOMs intact bilaterally General Eye ED: Negative for pale conjunctiva or scleral icterus Neck no lymphadenopathy, supple and no JVD Resp normal respiratory effort Cardio regular rate and regular rhythm Extremity Negative for normal to inspection Extremity Narrative: Slight soft tissue swelling noted. There is a erythematous slightly blanching rash predominately inferior the right and left patella with pustules and drainage noted. There is no popliteal angle lymphadenopathy. There is no lymphangitis. There is no fluctuance. Neuro oriented x3 and CN's II-XII intact bilaterally Sensorium / Orientation: alert Psych mental status grossly normal Skin No no rashes or lesions noted, No no wounds and skin turgor normal General Skin Exam: elasticity normal; Negative for jaundice or pallor MDM MDM MDM Narrative Medical decision making narrative: Patient initially had a chemical dermatitis and may have an allergic component due to the triple antibiotic cream. Patient was instructed to stop the triple antibiotic cream since there is a 9 to 10% incidence of allergic reaction to the triple antibiotic ointment. Because she has pustules with purulent drainage will place on doxycycline to cover both strep and staphylococcal organisms. Blood pressure is elevated which may be due to her being in the emergency department. Since she has no history hypertension we will have her follow-up with her primary care physician to have this rechecked. History & Record Review Additional record(s) reviewed:: Prior outpatient record and Prior ED visit (No significant pathology other than the ADHD. Seen for minor complaints.) Treatment and Re-Evaluation :: Patient received first dose of doxycycline in department. She was discharged with scription for doxycycline. Discharge Plan Triage Chief Complaint: Burn ED Provider: Johnny Barney Dx/Rx/DC Orders Clinical Impression: Pustular rash, Chemical induced allergic contact dermatitis, Allergic derma titis Instructions: ED Cellulitis, ED Chemical Burn, Skin Prescriptions: New doxycycline monohydrate 100 mg capsule 100 mg PO BID Qty: 10 0RF No Action multivitamin Tablet 1 tab PO DAILY dextroamphetamine-amphetamine [Adderall] 30 mg tablet 30 mg PO BID Label Comments: TAKE 1 TABLET BY MOUTH 2CTIMES A DAY ibuprofen [ibuprofen] 600 MG tablet 600 mg PO Q6H PRN (Reason: Pain) 10 Days Qty: 30 1RF Primary Care Provider: Harriett Flood Referrals: Harriett Flood MD [Primary Care Provider] - 3-5 Days Activity Restrictions/Additional Instructions: 1. Disc continue application of triple antibiotic ointment. 2. If you wish to apply appointment use bacitracin ointment. 3. Take antibiotics until gone 4. If you develop temperature greater than 100 have shaking chills or red streak toward your groin return to the emergency department Disposition Disposition: Home, Self Care
[2022-06-22] MEDS: Doxycycline 100 MG CAPSULE PO (17:18)
== END 2022-06-22 17:22 | disposition home or self-care (01) ==
PROVIDERS: Emergency Provider Emergency Medicine; PCP Internal Medicine; Visit Provider Emergency Medicine
DX: L23.9 Allergic contact dermatitis, unspecified cause (principal); I10 Essential (primary) hypertension; Z87.891 Personal history of nicotine dependence
CPT/HCPCS: 99283

== ENCOUNTER 2023-11-05 15:58 | Emergency (ER) | payer MEDICAID, SELFPAY ==
[2023-11-05 15:58] VITALS: BP 138/112; PULSE 84; RESP 16; TEMP 36.4; O2SAT 100; BMI 39.6
--- NOTE | 2023-11-05 16:25 | ED.RN ---
Patient has been waiting for an ER room for 36 minutes. Spouse has come up to triage desk twice. S/o asked if people were seen based on how long they have been here. THis RN stated patients are seen based on acuity and life/ circumstances. Spouse stated so whats the magic word I have to say to get back there, because that cande just went back before us and we have been waiting longer and my is in way more pain. This RN stated that was an inappropriate to want to say things that would put you in front of others just to say it. Pt. and spouse walked out of ER.
== END 2023-11-05 16:26 | disposition left against medical advice (07) ==
LOC: ED 16:28
PROVIDERS: PCP Internal Medicine
DX: R10.9 Unspecified abdominal pain (principal)

== ENCOUNTER 2024-07-04 06:20 | Inpatient (IN) | payer MEDICAID, SELFPAY ==
[2024-07-04] VITALS (9 sets, daily range): BP systolic 116–153; BP diastolic 68–102; PULSE 71–85; RESP 14–20; TEMP 36.4–36.8; O2SAT 95–100; BMI 40.0; BMI 39.4
[2024-07-04] MEDS: 0.9% Normal Saline (1000mL) 1,000 ML 999 ML IV (06:42)
[2024-07-04] MEDS: Morphine 4 MG/ML Syringe IV (06:42)
[2024-07-04] MEDS: Ondansetron 4 MG/2 ML Vial IV (06:42)
[2024-07-04 06:45] LABS: Absolute Lymphocyte Count 0.96 X10^3/uL (0.83-4.51); Basophil# 0.02 X10^3/uL; Basophil% 0.3 % (0-1); Eosinophil# 0.03 X10^3/uL; Eosinophils% 0.4 % (0-5); Hemoglobin 11.9 g/dL (12.0-15.0); Lymphocyte # 0.96 X10^3/ul (0.83-4.51); Lymphocyte % 12.7 % (19-41); Mean Corp Hgb Conc 33.1 g/dL (32-36); Mean Corpuscular Hgb 25.6 pg (27.0-32.0); Mean Corpuscular Volume 77.4 fL (81-99); Monocyte# 0.52 X10^3/uL; Monocyte% 6.9 % (0-10); NRBC Flagged by Analyzer 0 % (0-5); Neutrophil # 6.01 X10^3/uL (2.7-7.7); Neutrophil % 79.3 % (47-70); Platelet Count 312 K/mm3 (150-450); RBC Distribution Width CV 15.9 % (11.6-14.6); RBC Distribution Width SD 44.5 fl (35.1-43.9); Red Blood Count 4.65 M/mm3 (4.2-5.4); White Blood Count 7.6 K/mm3 (4.4-11.0)
--- NOTE | 2024-07-04 06:53 | US_ITS ---
PROCEDURE: GALLBLADDER 07/04/2024 REASON FOR EXAM: RUQ TTP, +SHERWOOD SIGN COMPARISON: None. FINDINGS: Real-time ultrasound images. Unremarkable hepatic echogenicity. The liver measures 15.7 cm. Unremarkable flow in the main portal vein. The liver is normal in size measuring 15.7 cm. Mildly distended gallbladder measuring 7.4 cm. Negative sonographic Sherwood. Multiple gallstones are noted. No evidence of pericholecystic free fluid. Normal gallbladder wall thickness measuring 2.2 mm. Nondilated common bile duct measuring 4.7 mm. Unremarkable visualized pancreas. Unremarkable right kidney measuring 11.6 x 5.8 x 4.5 cm. Normal right renal cortical thickness measuring 1.4 cm. US/Gallbladder IMPRESSION: Cholelithiasis without sonographic evidence of acute cholecystitis. Reading Location: [place] [id number]
--- NOTE | 2024-07-04 06:59 | EDS_ITS ---
HPI History of Present Illness Chief Complaint: Abd Pain PFSH PFSH Medical History ADHD Alcohol use Anxiety Depression Former smoker Hx of vaginal delivery Hypertension Migraine headache Wears glasses Home Medications ?Medication ?Instructions ?Recorded ?Last Taken ?Type dextroamphetamine-amphetamine 30 30 mg PO BID 11/08/21 Unknown History mg tablet (Adderall) multivitamin 1 tab PO DAILY 11/08/21 Unkn own History ibuprofen 600 mg tablet 600 mg PO Q6H PRN Pain 10 da ys #30 11/09/21 Unknown Rx TABLETS doxycycline monohydrate 100 mg 100 mg PO BID #10 CAPSU LES 06/22/22 Unknown Rx capsule benzonatate 100 mg capsule 200 mg PO TID PRN PRN cough 07/04/24 Unknown History dextroamphetamine-amphetamine 30 30 mg PO BID 07/04/24 Unknown History mg tablet (Adderall) lisinopril 5 mg tablet 5 mg PO DAILY 07/04/24 Unkno wn History Allergy/AdvReac Type Severity Reaction Status Date / Time No Known Allergies Allergy Verified 11/05/23 16:00 Family History no significant family his Surgical History History of tonsillectomy and adenoidectomy Social History household members: spouse Smoking Status: Former smoker substance use type: does not use EXAM Physical Exam Const Vital Signs: 07/04/24 06:20 07/04/24 06:47 Temperature 97.5 F L Temperature Source Oral Pulse Rate 85 85 Respiratory Rate 18 20 H Blood Pressure 153/102 H 136/83 H Blood Pressure Mean 119 100 Pulse Ox 100 100 Oxygen Delivery Method Room Air Room Air MDM MDM MDM Narrative Medical decision making narrative: HISTORY OF PRESENT ILLNESS: Chief complaint: Abdominal pain 38-year-old female presents with right upper quad abdominal pain. Notes pain is worse with food. Notes she thinks is her gallbladder. States she had an ultrasound done in October 2023 showed gallstones. States has not followed with general surgery. States she only follows with primary doctor. Denies fevers. Denies chest pain. Denies shortness of breath. Denies trouble urinating. Denies melena hematochezia. Notes history of a tubal ligation otherwise no abdominal surgical history. REVIEW OF SYSTEMS: Pertinent positives: Abdominal pain Pertinent negatives: PHYSICAL EXAM: Nursing triage notes reviewed, Vital signs reviewed Constitutional: please see [facility] HENT: MMM Eyes: Pupils equal round and reactive to light, Extraocular muscles intact Neck: No stridor, no JVD, full neck ROM Lungs: Clear to auscultation, No wheezing or rales. No increased work of breathing, no conversational dyspnea, no accessory muscle use, no nasal flaring. No respiratory distress noted Heart: Regular rate and rhythm, No murmurs, No rubs and No gallops, 2+ distal pulses (radial, femoral, posterior tibial) in all extremities Abdomen: Soft, right upper quadrant TTP, no positive Sherwood sign but no rigidity, rebound or guarding, no obvious peritoneal signs, no palpable pulsatile abdominal masses, no auscultated abdominal bruit : No CVAT Extremities: No edema Neuro: No new focal neurological deficits, cranial nerves II through XII intact, 5/5 strength in all present extremities. Intact sensation to light touch in all present extremities, 2+ reflexes bilateral patella tendons. Skin: No rash or lesions noted MEDICAL DECISION MAKING: Chief Complaint: please see HPI External records reviewed: Reviewed prior imaging studies Factors affecting care: Gall[place] Social determinants of health: Denies alcohol or illicit drug use History obtained from others: none Consults: none [facility] Narrative: The patient was initially hemodynamically stable, afebrile and nontoxic- appearing. Exam with right upper quadrant TTP, positive Sherwood sign I considered the following differential diagnosis: AAA, small bowel obstruction, abdominal perforation, appendicitis, pancreatitis, hepatobiliary pathology (acute cholecystitis), mesenteric ischemia, pathology (ie nephrolithiasis, pyelonephritis). Patient was initially treated with IV fluid, Zofran and morphine. I obtained a broad lab and imaging workup including a right upper quadrant ultrasound to further elucidate etiology of patient's complaints ALL IMAGES (IF OBTAINED) HAVE BEEN PERSONALLY REVIEWED AND INTERPRETED BY MYSELF. CBC without leukocytosis, noted mild anemia, no thrombocytopenia. Awaiting CMP, lipase, right upper quadrant ultrasound, reassessment. Signed out to a.m. physician pending workup. The patient and/or family, caregivers express understanding. The patient and/or family, caregivers agrees with the plan. Shared decision making: I will have a discussion with the patient and or visitors regarding risk/benefits of further testing or admission. They will be made aware of of the risk/benefits inherent in this decision they will be given the opportunity to voice understanding. Total critical care time today provided was at least 0 minutes. This excludes separately billable procedures. Critical care time (if documented) is secondary to the patient having high probability of clinically significant/life threatening deterioration in the patient's condition which required my urgent intervention. Impression: 1. Right upper quadrant abdominal pain 2. Gallstones Dispo: Pending lab and imaging evaluation, reassessment and final disposition This note was generated with [employer] dictation software. It may contain incorrect words, spelling, and punctuation that were not noted in review of the chart prior to signing. Lab Data Labs: Laboratory Results - last 24 hr 07/04/24 06:36 WBC 7.6 RBC 4.65 Hgb 11.9 L Hct 36.0 L MCV 77.4 L MCH 25.6 L MCHC 33.1 RDW Std Deviation 44.5 H RDW Coeff of María 15.9 H Plt Count 312 MPV 10.0 Immature Gran % (Auto) 0.400 Neut % (Auto) 79.3 H Lymph % (Auto) 12.7 L [place] % (Auto) 6.9 Eos % (Auto) 0.4 Baso % (Auto) 0.3 Absolute Neuts (auto) 6.0 Absolute Lymphs (auto) 0.96 Nucleated RBC % 0 Discharge Plan Triage Chief Complaint: Abd Pain ED Provider: Harshil Sanches Dx/Rx/DC Orders Prescriptions: No Action multivitamin Tablet 1 tab PO DAILY dextroamphetamine-amphetamine [Adderall] 30 mg tablet 30 mg PO BID Patient Comments: TAKE 1 TABLET BY MOUTH 2CTIMES A DAY ibuprofen [ibuprofen] 600 MG tablet 600 mg PO Q6H PRN (Reason: Pain) 10 Days Qty: 30 1RF doxycycline monohydrate 100 mg capsule 100 mg PO BID Qty: 10 0RF benzonatate 100 mg capsule 200 mg PO TID PRN PRN (Reason: cough) lisinopril 5 mg tablet 5 mg PO DAILY dextroamphetamine-amphetamine [Adderall] 30 mg tablet 30 mg PO BID Rx Instructions: administer doses at least 4-6 hours apart Primary Care Provider: Harriett Flood Referrals: Harriett Flood MD [Primary Care Provider] - Print Language: Slovenian
[2024-07-04 07:43] LABS: AST(SGOT) 594 U/L (<=31); Alanine Aminotransfer ALT/SGPT 352 U/L (<=34); Albumin, Serum 4.2 g/dL (3.5-5.0); Alkaline Phosphatase 135 U/L (35-104); Anion Gap 13 (5-15); BUN 8 mg/dL (4-19); Bilirubin, Direct 0.54 mg/dL (0.00-0.30); Calcium,Total 9.3 mg/dL (7.6-11.0); Chloride 102 mmol/L (98-108); Creatinine, Serum 0.56 mg/dL (0.70-1.20); EST Glomerular Filtration Rate 121 (>60); Estimated Creatinine Clearance 152.99 ml/min (50-250); Globulin 2.4 g/dL (2.2-4.2); Glucose 105 mg/dL (70-99); Lipase 56 U/L (13-75); Protein, Total 6.6 g/dL (5.9-8.4); Sodium Level 138 mmol/L (133-145)
[2024-07-04 09:21] LABS: Bacteria 0 SEEN /hpf (None Seen); Mucous, Urine 0 SEEN /hpf (<or=2+); Red Blood Cells-Urine 0 SEEN /hpf (0-5)
--- NOTE | 2024-07-04 09:26 | RAD_ITS ---
PROCEDURE: CHEST 1 VIEW (PORTABLE) 07/04/2024 REASON FOR EXAM: PREOP TECHNIQUE: Frontal view of the chest. COMPARISON: None FINDINGS: Hardware: None Heart: Cardiac and mediastinal contours are stable. Lungs: The lungs are clear. Bones: The bones are unremarkable. Other: RAD/Chest 1 View (Portable) IMPRESSION: No Acute Findings. Reading Location: [facility]
--- NOTE | 2024-07-04 09:26 | EKG12_ITS ---
Test Reason : GENRAL Blood Pressure : */* mmHG Vent. Rate : 78 BPM Atrial Rate : 78 BPM P-R Int : 160 ms QRS Dur : 102 ms QT Int : 382 ms P-R-T Axes : 42 66 27 degrees QTcB Int : 435 ms Normal sinus rhythm Normal ECG Confirmed by ELADIO CASTAÑEDA, JOSH ([id number]), editor & co founder VERNELL MONTILLA ([id number]) on 07/07/2024 11:52:56 AM Referred By: Confirmed By: JOSH HENDRICKS MD
[2024-07-04 09:35] LABS: Color, Urine Yellow (Yellow); Glucose, Dipstick Normal (Normal); Ketone-Dipstick Negative (Negative); Leukocyte Esterase-Dipstick Negative /ul (Negative); Nitrite-Dipstick Negative (Negative); Occult Blood-Urine Negative /ul (Negative); Protein-Dipstick 30 mg/dl (Negative); Urine Bilirubin Dipstick Negative (Negative); Urine Clarity Clear (Clear); Urine Urobilinogen Normal (Normal)
[2024-07-04] MEDS: Piperacil/Tazobactam 4.5 GM in 0.9% Normal Saline (100mL MB+) 100 ML IV (09:39)
[2024-07-04 09:43] LABS: Squamous Epithelial Cells - UA 0-5 SEEN /hpf (5-10); White Blood Cells 0-5 SEEN /hpf (0-5)
[2024-07-04 09:44] LABS: Internal QC Validated? YES +Cl - CLEAR BKGD; Pregnancy, Urine Negative Negative
[2024-07-04 10:00] LABS: Prothrombin Time (Protime)PT. 13.5 SECONDS (11.7-14.9)
[2024-07-04 10:01] LABS: Partial Thromboplast Time 23.9 Seconds (24.1-36.2)
--- NOTE | 2024-07-04 10:11 | PCM.HP.STD ---
HPI - General General Date of Admission: 07/04/24 Date of Service: 07/04/24 Chief Complaint: Right upper quadrant biliary colic HPI Narrative CANDICE WORLEY, is a 38 F who came to ER with right upper quadrant colicky pain since 11 AM yesterday. She described her pain as colicky, gripping sensation started last night, waxing and waning till 2 AM and then she fell asleep. She woke up at 5 AM with pain that brought her to ED. She has mild nausea but denies vomiting. No fever but felt cold sweats. She had similar but less severe right upper quadrant pain October 2023 and she went to [facility] where she had ultrasound. She was told that she has a gallbladder stone and probably she has elevated transaminases as per Dr. Austin at that time. I tried to log into cliniisync to check it but could not. She had right upper quadrant sonogram in ED shows cholelithiasis without features of acute cholecystitis. ED physician consulted and she wanted to admit under medicine with GI consult. [facility] Medical History Wears glasses Depression Anxiety Alcohol use Migraine headache Former smoker Hypertension Hx of vaginal delivery ADHD Home Medications ?Medication ?Instructions ?Recorded ?Last Taken ?Type dextroamphetamine-amphetamine 30 30 mg PO 0800,1200 11/08/21 07/03/24 History mg tablet (Adderall) multivitamin 1 tab PO DAILY 11/08/21 07/03/24 History lisinopril 5 mg tablet 5 mg PO DAILY 07/04/24 07/04/24 History Allergy/AdvReac Type Severity Reaction Status Date / Time metformin AdvReac Diarrhea Verified 07/04/24 11:01 Family History no significant family his Surgical History History of tonsillectomy and adenoidectomy Social History household members: spouse Smoking Status: Former smoker substance use type: does not use ROS ROS Narrative Constitutional: Reports fatigue and weakness. No fever. HEENT: Reports systems reviewed and no addt'l complaints, except as documented Respiratory/Chest: No acute shortness of breath or respiratory distress or wheezing. CVS: Denies chronic heart disease. Gastrointestinal: Bowel movement normal. Rest as described in HPI Genitourinary: Denies burning urination or new urinary tract symptoms Musculoskeletal: Denies acute joint pain or limited range of motion. No acute injury Neurologic: Denies seizure-like symptoms. Psychiatric: History of ADHD on Adderall skin: No ulcer. No rash Endocrinology: Reports systems reviewed and no addt'l complaints, except as documented Hematologic/Lymphatic: Reports systems reviewed and no addt'l complaints, except as documented Rest 14 ROS are negative except as mentioned in HPI Vital Signs Vital Signs Vital Signs: 07/04/24 06:20 07/04/24 06:47 07/04/24 08:49 Temperature 97.5 F L Temperature Source Oral Pulse Rate 85 85 84 Respiratory Rate 18 20 H 18 Blood Pressure 153/102 H 136/83 H 146/68 H Blood Pressure Mean 119 100 94 Pulse Ox 100 100 96 Oxygen Delivery Method Room Air Room Air Room Air 07/04/24 09:46 Temperature 98.3 F Temperature Source Pulse Rate 72 Respiratory Rate 18 Blood Pressure 116/68 Blood Pressure Mean 84 Pulse Ox 100 Oxygen Delivery Method Weight Weight: 218 lb 14.704 oz Body Mass Index (BMI) 40.0 Physical Exam Narrative Seen and examined Abdomen was examined after patient received morphine in ED. Abdominal pain is much better. General: Alert, Oriented x3, Cooperative HEENT: Atraumatic, PERRLA, EOMI, Normocephalic Oral: No Gingival or Mucosal Lesions/ Ulcerations Neck: Supple, No JVD, Negative Carotid Bruits Chest wall/Lungs: Air entry diminished in bilateral lung bases. No crepitation/rhonchi Cardiovascular: Regular rate, Regular Rhythm, Normal S1, Normal S2, No M/G/R Abdomen: Bowel Sounds Present, Soft, tenderness present over right subcostal margin at midclavicular line. Sherwood sign positive. No guarding or rigidity. : No dysuria. No renal angle tenderness. No suprapubic tenderness. Extremities: No edema, Capillary Refill Less than 3 Seconds Skin: No rashes, No breakdown Musculoskeletal: No Tenderness to Palpation of Joints or Extremities. Neurological: Cranial nerves II-XII grossly intact, DTR 2+/4. No acute focal neurological deficit. Psych/Mental Status: Normal Affect, Appropriate. Results Lab / Micro Data 07/04/24 06:36 07/04/24 06:36 Labs: Laboratory Results - last 24 hr 07/04/24 06:36: WBC 7.6, RBC 4.65, Hgb 11.9 L, Hct 36.0 L, MCV 77.4 L, MCH 25.6 L, MCHC 33.1, RDW Std Deviation 44.5 H, RDW Coeff of María 15.9 H, Plt Count 312, MPV 10.0, Immature Gran % (Auto) 0.400, Neut % (Auto) 79.3 H, Lymph % (Auto) 12.7 L, [place] % (Auto) 6.9, Eos % (Auto) 0.4, Baso % (Auto) 0.3, Absolute Neuts (auto) 6.0, Absolute Lymphs (auto) 0.96, Nucleated RBC % 0, Sodium 138, Potassium 4.0, Chloride 102, Carbon Dioxide 23.0, Anion Gap 13, BUN 8, Creatinine 0.56 L, Estim Creat Clear Calc 152.99, Est GFR (MDRD) Non-Af 121, BUN/Creatinine Ratio 15.0, Glucose 105 H, Calcium 9.3, Total Bilirubin 0.80, Direct Bilirubin 0.54 H, AST 594 H, ALT 352 H, Alkaline Phosphatase 135 H, Total Protein 6.6, Albumin 4.2, Globulin 2.4, Lipase 56 07/04/24 08:55: Urine Color Yellow, Urine Clarity Clear, Urine pH 7.0, Ur Specific [place] 1.010, Urine Protein 30 H, Urine Glucose (UA) Normal, Urine Ketones Negative, Urine Occult Blood Negative, Urine Nitrite Negative, Urine Bilirubin Negative, Urine Urobilinogen Normal, Ur Leukocyte Esterase Negative, Urine RBC 0 SEEN, Urine WBC 0-5 SEEN, Ur Squamous Epith Cells 0-5 SEEN, Urine Bacteria 0 SEEN, Urine Mucus 0 SEEN, Urine Test Negative 07/04/24 09:40: PT 13.5, INR 1.0, APTT 23.9 L Imaging Radiology Impression Gallbladder Ultrasound 07/04/24 06:53 IMPRESSION: Cholelithiasis without sonographic evidence of acute cholecystitis. Reading Location: [place] [id number] Chest X-Ray 07/04/24 09:26 IMPRESSION: No Acute Findings. Reading Location: [facility] Assessment & Plan Assessment/Plan (1) Acute cholecystitis with acute cholangitis: PLAN: Plan This 38-year-old female is being admitted for right upper quadrant colicky pain for 1. Acute cholecystitis with cholelithiasis: [facility] fluid. Pain control. Lab evaluation shows normal WBC count, ALT 352 AST 594 elevated. ALP 135. Total bilirubin normal. Lipase normal. Right upper quadrant sonogram shows cholelithiasis with normal GB wall, no pericholecystic fluid. Clinically it seems patient has cholecystitis with biliary colic, Sherwood sign positive and elevated transaminases. ED physician consulted surgeon and wanted GI to see for therefore loan manager consulted. I do not think antibiotic is indicated at this time. Patient has similar episode of biliary colic/acute cholecystitis in October 2023. Liquid diet. Monitor liver chemistry and GGT. 2. Hypertension: Blood pressure is normal. On lisinopril 5 mg daily continued. 3. ADHD on Adderall. Continued DVT prophylaxis, low risk. Ambulation encouraged. Living will/advanced directive/end of life care: Patient does not have living will or advanced directive. Her is next of kin. After discussion of benefits/risks procedures involved with full code, DNR CC arrest and DNR CC, the patient opted for full code. Patient does want artificial life support including intubation, tube feed, ventilator and/chest compression, central venous catheter, vasopressor and DC shock if needed Total time spent in [id number] encounter in discussion of advanced directive 17 minutes. Laboratory Results 07/04/24 06:36: WBC 7.6, RBC 4.65, Hgb 11.9 L, Hct 36.0 L, MCV 77.4 L, MCH 25.6 L, MCHC 33.1, RDW Std Deviation 44.5 H, RDW Coeff of María 15.9 H, Plt Count 312, MPV 10.0, Immature Gran % (Auto) 0.400, Neut % (Auto) 79.3 H, Lymph % (Auto) 12.7 L, [place] % (Auto) 6.9, Eos % (Auto) 0.4, Baso % (Auto) 0.3, Absolute Neuts (auto) 6.0, Absolute Lymphs (auto) 0.96, Nucleated RBC % 0, Sodium 138, Potassium 4.0, Chloride 102, Carbon Dioxide 23.0, Anion Gap 13, BUN 8, Creatinine 0.56 L, Estim Creat Clear Calc 152.99, Est GFR (MDRD) Non-Af 121, BUN/Creatinine Ratio 15.0, Glucose 105 H, Calcium 9.3, Total Bilirubin 0.80, Direct Bilirubin 0.54 H, AST 594 H, ALT 352 H, Alkaline Phosphatase 135 H, Total Protein 6.6, Albumin 4.2, Globulin 2.4, Lipase 56 07/04/24 08:55: Urine Color Yellow, Urine Clarity Clear, Urine pH 7.0, Ur Specific [place] 1.010, Urine Protein 30 H, Urine Glucose (UA) Normal, Urine Ketones Negative, Urine Occult Blood Negative, Urine Nitrite Negative, Urine Bilirubin Negative, Urine Urobilinogen Normal, Ur Leukocyte Esterase Negative, Urine RBC 0 SEEN, Urine WBC 0-5 SEEN, Ur Squamous Epith Cells 0-5 SEEN, Urine Bacteria 0 SEEN, Urine Mucus 0 SEEN, Urine Test Negative 07/04/24 09:40: PT 13.5, INR 1.0, APTT 23.9 L, Blood Type Pending, Antibody Screen Pending Clinical Impression(s) from Imaging Studies Gallbladder Ultrasound 07/04/24 06:53 IMPRESSION: Cholelithiasis without sonographic evidence of acute cholecystitis. Reading Location: [place] [id number] Chest X-Ray 07/04/24 09:26 IMPRESSION: No Acute Findings. Reading Location: [facility] Charges/Coding Visit Charges Inpatient E&M: 56834 Init Hosp L3 Procedures Hospitalists Procedures: 37120 Advncd Care Plan 30 Min
[2024-07-04 10:40] LABS: Magnesium 1.9 mg/dL (1.5-2.2)
[2024-07-04] MEDS: Pantoprazole Sodium 40 MG in 0.9% Normal Saline (100mL MB+) 100 ML 330 MG IV (12:01)
[2024-07-04] MEDS: 0.9% Saline Lock 10 ML Syringe IV (12:03)
[2024-07-04] MEDS: Lactated Ringers 1,000 ML 100 ML IV ×2 (12:22→23:44)
[2024-07-05 04:02] LABS: Internal QC Validated? YES +Cl - CLEAR BKGD; Pregnancy, Urine Negative Negative
[2024-07-05 04:27] VITALS: BP 110/65; PULSE 82; RESP 16; TEMP 36.2; O2SAT 96
[2024-07-05 04:29] LABS: Absolute Lymphocyte Count 1.15 X10^3/uL (0.83-4.51); Absolute Neutrophil Count 2.8 X10^3/uL (2.0-7.7); Basophil# 0.04 X10^3/uL; Basophil% 0.9 % (0-1); Eosinophil# 0.16 X10^3/uL; Eosinophils% 3.5 % (0-5); Hematocrit 33.4 % (37-47); Hemoglobin 10.9 g/dL (12.0-15.0); Lymphocyte # 1.15 X10^3/ul (0.83-4.51); Lymphocyte % 25.2 % (19-41); Mean Corp Hgb Conc 32.6 g/dL (32-36); Mean Corpuscular Hgb 25.6 pg (27.0-32.0); Mean Corpuscular Volume 78.4 fL (81-99); Monocyte# 0.45 X10^3/uL; Monocyte% 9.9 % (0-10); NRBC Flagged by Analyzer 0 % (0-5); Neutrophil # 2.75 X10^3/uL (2.7-7.7); Neutrophil % 60.3 % (47-70); Platelet Count 282 K/mm3 (150-450); RBC Distribution Width SD 46.1 fl (35.1-43.9); Red Blood Count 4.26 M/mm3 (4.2-5.4); White Blood Count 4.6 K/mm3 (4.4-11.0)
[2024-07-05 04:48] LABS: AST(SGOT) 442 U/L (<=31); Albumin, Serum 3.6 g/dL (3.5-5.0); Alkaline Phosphatase 191 U/L (35-104); Anion Gap 8 (5-15); BUN 4 mg/dL (4-19); BUN/Creat Ratio 7.2 RATIO (10-20); Calcium,Total 8.3 mg/dL (7.6-11.0); Carbon Dioxide 25.2 mmol/L (21.0-32.0); Chloride 107 mmol/L (98-108); Creatinine, Serum 0.51 mg/dL (0.70-1.20); EST Glomerular Filtration Rate 124 (>60); Estimated Creatinine Clearance 166.71 ml/min (50-250); Globulin 2.5 g/dL (2.2-4.2); Glucose 91 mg/dL (70-99); Potassium 3.8 mmol/L (3.3-5.1); Protein, Total 6.2 g/dL (5.9-8.4); Sodium Level 140 mmol/L (133-145); Total Bilirubin 1.21 mg/dL (0.00-1.30)
[2024-07-05 05:11] VITALS: BMI 40.3
[2024-07-05 05:32] LABS: Alanine Aminotransfer ALT/SGPT 726 U/L (<=34)
[2024-07-05] MEDS: Acetaminophen 325 MG Tablet 650 MG PO (05:59)
--- NOTE | 2024-07-05 06:53 | CT_ITS ---
PROCEDURE: ABDOMEN/PELVIS W IV CONT ONLY 07/05/2024 REASON FOR EXAM: ELEVATED LFT'S TECHNIQUE: Abdomen and pelvis CT with intravenous contrast. Coronal and Sagittal reconstruction series were provided. PATIENT PREPARATION: Per protocol ORAL CONTRAST TYPE: None. CONTRAST: 98 cc Isovue-300 IV One or more dose reduction techniques were used (e.g., Automated exposure control, adjustment of the mA and/or kV according to patient size, use of iterative reconstruction technique. RADIATION DOSE SUMMARY: CTDlvol: 23.90 mGy DLP: 1237.80 mGycm COMPARISON: None available FINDINGS: Bibasilar atelectasis. The liver, adrenal glands, kidneys, pancreas and spleen appear within limits. Nondistended gallbladder with appearance of edema, gallbladder fossa fluid for example coronal 49 concerning for possible cholecystitis, clinically correlate. No evidence of biliary ductal dilation. Abdominal aorta appears within limits. No adenopathy. No bowel dilation or free air. Normal caliber appendix without secondary signs. The ovaries, uterus and bladder appear within limits. 2 cm follicle left ovary. Small amount of left lower quadrant and pelvic free fluid. The visualized osseous structures appear within limits. CT/Abdomen/Pelvis W IV Cont ONLY IMPRESSION: Nondistended gallbladder with appearance of edema, gallbladder fossa fluid for example coronal 49 concerning for possible cholecystitis, clinically correlate. No evidence of biliary ductal dilation. Small amount of left lower quadrant and pelvic free fluid. Reading Location: [id number]
[2024-07-05] MEDS: 0.9% Saline Lock 10 ML Syringe IV (07:29)
--- NOTE | 2024-07-05 08:36 | EX.PCM.CON.S ---
Assessment & Plan Assessment/Plan (1) Cholelithiasis: (2) Elevated LFTs: PLAN: Plan Will await GI workup to see if due to gallbladder/cholelithiasis vs liver primary etiology. Did briefly discuss cholecystectomy with patient and at this would be more of a primary liver issue cholecystectomy would not help at this point. Did review patient's CAT scan as well as her ultrasound with the patient. Patient does have some small gallstones no wall thickening on ultrasound, no evidence of inflammation on ultrasound. If this is questions on CT however ultrasound is a better modality for this. Discussed with patient that depending on further workup may determine whether or not cholecystectomy is warranted. This may be done as an outpatient procedure according to imaging with no obvious inflammation-if it would be beneficial. Reviewed the anatomy with the patient and discussed the procedure: laparoscopic cholecystectomy with possible cholangiograms, possible open. Review risks including but not limited to bleeding, infection, hernia, bile leak, retained gallstones requiring another procedure ERCP- Endoscopic Retrograde Cholangiopancreatography, injury to another organ (bile ducts, common bile duct, small bowel, etc.) and conversion to an open procedure. All questions were answered. Dr. Magdaleno will be covering tomorrow. Veronica Austin M.D. Pager: [phone] [facility] [address] [place] [address], [facility], [address] [place] [address] Office: [phone] HPI Consult Data Date of Consult: 07/05/24 HPI Narrative HPI Narrative: CANDICE WORLEY, is a 38 F who presents due to right upper quadrant/epigastric pain. Patient states that started 2 nights ago about 11 PM patient did not eat prior to this. Patient does not give a history of right upper quadrant pain after eating 30 minutes to an hour. Patient states that it came in waves with start of dull and then increased. Patient states it was a 10 out of 10 when she was in the ER she did get morphine. Patient has had no pain since. Patient denies any nausea and vomiting. Patient previously was seeing Sada in October 2023 and did have elevated LFTs at that time as well with the AST and ALT in the 100s the rest of the liver functions were normal. Patient had an ultrasound of the gallbladder which again showed some gallstones but no signs of cholecystitis. Patient's ultrasound in our ER also showed normal wall at 2.2 mm, normal common bile duct at 4.7 mm, no pericholecystic fluid, small gallstones. The patient's AST and ALT were elevated in the 4-500s with a small elevation of the direct bilirubin 0.4 and normal total bilirubin. This morning the ALT did go up even higher to 726 AST slightly fell and direct went slightly higher to 0.7 alk phos still remained mildly elevated at 191. [facility] Medical History Wears glasses Depression Anxiety Alcohol use Migraine headache Former smoker Hypertension Hx of vaginal delivery ADHD Home Medications ?Medication ?Instructions ?Recorded ?Last Taken ?Type dextroamphetamine-amphetamine 30 30 mg PO 0800,1200 11/08/21 07/03/24 History mg tablet (Adderall) multivitamin 1 tab PO DAILY 11/08/21 07/03/24 History lisinopril 5 mg tablet 5 mg PO DAILY 07/04/24 07/04/24 History Allergy/AdvReac Type Severity Reaction Status Date / Time metformin AdvReac Diarrhea Verified 07/04/24 11:01 Family History no significant family his Surgical History History of tonsillectomy and adenoidectomy Social History household members: spouse Smoking Status: Former smoker substance use type: does not use ROS Constitutional Constitutional: Denies fever(s) Eyes Eyes: Denies change in vision ENT HEENT: Denies dysphagia Cardiovascular Cardiovascular: Denies chest pain Respiratory/Chest Respiratory/Chest: Denies cough Gastrointestinal Gastrointestinal: Reports abdominal pain, nausea and vomiting; Denies diarrhea or hematemesis Genitourinary Genitourinary: Denies dysuria Integumentary Integumentary: Denies rash Neurologic Neurologic: Denies focal weakness Psychiatric Psychiatric: Denies anxiety Hematologic/Lymphatic Hematologic/Lymphatic: Denies easy bleeding Physical Exam Const alert, oriented x3 and no apparent distress HEENT normocephalic and head/scalp atraumatic Resp normal respiratory effort Cardio regular rate GI soft to palpation, non-tender and non-distended Palpation: Negative for guarding Extremity no clubbing, cyanosis or edema Neuro CN's II-XII intact bilaterally Psych mental status grossly normal Lab / Micro Data 07/05/24 04:23 07/05/24 04:23 Labs: Laboratory Results - last 24 hr 07/04/24 06:36: Magnesium 1.9 07/04/24 08:55: Urine Color Yellow, Urine Clarity Clear, Urine pH 7.0, Ur Specific Garrett 1.010, Urine Protein 30 H, Urine Glucose (UA) Normal, Urine Ketones Negative, Urine Occult Blood Negative, Urine Nitrite Negative, Urine Bilirubin Negative, Urine Urobilinogen Normal, Ur Leukocyte Esterase Negative, Urine RBC 0 SEEN, Urine WBC 0-5 SEEN, Ur Squamous Epith Cells 0-5 SEEN, Urine Bacteria 0 SEEN, Urine Mucus 0 SEEN, Urine Test Negative 07/04/24 09:40: PT 13.5, INR 1.0, APTT 23.9 L, Blood Type AB POSITIVE, Antibody Screen NEGATIVE 07/05/24 03:44: Urine Test Negative 07/05/24 04:23: WBC 4.6, RBC 4.26, Hgb 10.9 L, Hct 33.4 L, MCV 78.4 L, MCH 25.6 L, MCHC 32.6, RDW Std Deviation 46.1 H, RDW Coeff of María 16.0 H, Plt Count 282, MPV 10.0, Immature Gran % (Auto) 0.200, Neut % (Auto) 60.3, Lymph % (Auto) 25.2, [place] % (Auto) 9.9, Eos % (Auto) 3.5, Baso % (Auto) 0.9, Absolute Neuts (auto) 2.8, Absolute Lymphs (auto) 1.15, Nucleated RBC % 0, Sodium 140, Potassium 3.8, Chloride 107, Carbon Dioxide 25.2, Anion Gap 8, BUN 4, Creatinine 0.51 L, Estim Creat Clear Calc 166.71, Est GFR (MDRD) Non-Af 124, BUN/Creatinine Ratio 7.2 L, Glucose 91, Calcium 8.3, Total Bilirubin 1.21, Direct Bilirubin 0.70 H, AST 442 H, ALT 726 H, Alkaline Phosphatase 191 H, Total Protein 6.2, Albumin 3.6, Globulin 2.5 Imaging Radiology Impression Gallbladder Ultrasound 07/04/24 06:53 IMPRESSION: Cholelithiasis without sonographic evidence of acute cholecystitis. Reading Location: [facility] Chest X-Ray 07/04/24 09:26 IMPRESSION: No Acute Findings. Reading Location: [facility] Abdomen/Pelvis CT 07/05/24 06:53 IMPRESSION: Nondistended gallbladder with appearance of edema, gallbladder fossa fluid for example coronal 49 concerning for possible cholecystitis, clinically correlate. No evidence of biliary ductal dilation. Small amount of left lower quadrant and pelvic free fluid. Reading Location: [id number] Charges/Coding Visit Charges Inpatient E&M: 33181 In Hosp L3
[2024-07-05 08:38] LABS: Ferritin 23 ng/mL (22-378); Iron 209 ug/dL (50-170); Iron Binding Capacity,Total 316 ug/dL (250-450); Iron Binding Capacity,Unsat 107 ug/dL (228-428)
[2024-07-05 09:02] VITALS: BP 133/80; PULSE 73; RESP 16; TEMP 36.9; O2SAT 99
[2024-07-05 09:30] VITALS: O2SAT 97
[2024-07-05 09:37] LABS: Erythrocyte Sedimentation Rate 9 mm/hr (0-30)
[2024-07-05] MEDS: Pantoprazole Sodium 40 MG in 0.9% Normal Saline (100mL MB+) 100 ML 330 MG IV (11:02)
[2024-07-05 11:05] VITALS: BMI 40.0
--- NOTE | 2024-07-05 11:08 | PCM.PN.HOSP ---
Reason for Visit Reason for Visit: Diagnoses Acute cholecystitis (07/04/24) Other cholangitis (07/04/24) Objective Data Objective Data Vital Signs: Vital Signs Temp Pulse Resp BP Pulse Ox O2 Del Method 98.4 F 73 16 133/80 H 97 Room Air 07/05/24 09:02 07/05/24 09:02 07/05/24 09:02 07/05/24 09:02 07/05/24 09:30 07/05/24 09:30 Oxygen Delivery Method Room Air Weight: 99.3 kg Body Mass Index (BMI) 40.0 Intake & Output: Intake and Output for Last 24 Hours 07/03/24 07/04/24 07/05/24 23:59 23:59 23:59 Intake Total 2163.33 / 2363.33 1075 / 1075 Balance 2163.33 / 2363.33 1075 / 1075 Lab / Micro Data 07/05/24 04:23 07/05/24 04:23 Labs: Laboratory Results - last 24 hr 07/05/24 03:44: Urine Test Negative 07/05/24 04:23: WBC 4.6, RBC 4.26, Hgb 10.9 L, Hct 33.4 L, MCV 78.4 L, MCH 25.6 L, MCHC 32.6, RDW Std Deviation 46.1 H, RDW Coeff of María 16.0 H, Plt Count 282, MPV 10.0, Immature Gran % (Auto) 0.200, Neut % (Auto) 60.3, Lymph % (Auto) 25.2, [place] % (Auto) 9.9, Eos % (Auto) 3.5, Baso % (Auto) 0.9, Absolute Neuts (auto) 2.8, Absolute Lymphs (auto) 1.15, Nucleated RBC % 0, Sodium 140, Potassium 3.8, Chloride 107, Carbon Dioxide 25.2, Anion Gap 8, BUN 4, Creatinine 0.51 L, Estim Creat Clear Calc 166.71, Est GFR (MDRD) Non-Af 124, BUN/Creatinine Ratio 7.2 L, Glucose 91, Calcium 8.3, Iron 209 H, TIBC 316, Iron Saturation 66.0 H, Unsaturated IBC 107 L, Ferritin 23, Total Bilirubin 1.21, Direct Bilirubin 0.70 H, AST 442 H, ALT 726 H, Alkaline Phosphatase 191 H, Total Protein 6.2, Albumin 3.6, Globulin 2.5 07/05/24 09:20: ESR 9 Radiography Diagnostic Testing: Radiology Impression Abdomen/Pelvis CT 07/05/24 06:53 IMPRESSION: Nondistended gallbladder with appearance of edema, gallbladder fossa fluid for example coronal 49 concerning for possible cholecystitis, clinically correlate. No evidence of biliary ductal dilation. Small amount of left lower quadrant and pelvic free fluid. Reading Location: [id number]
[2024-07-05 11:14] LABS: Ferritin 28 ng/mL (22-378); Iron Binding Capacity,Total 352 ug/dL (250-450)
[2024-07-05] MEDS: Acetaminophen/Butalbital/Caffe 1 Tablet 2 TABLET PO (12:02)
[2024-07-05 12:15] LABS: Iron 258 ug/dL (50-170); Iron Binding Capacity,Unsat 94 ug/dL (228-428); PERCENT IRON SATURATION 73.3 % (13-59)
--- NOTE | 2024-07-05 12:20 | CASEMGMT ---
SHARIFA AHN Assessment: Face to Face with pt for initial transition planning/care coordination assessment. SHARIFA AHN introduced self and role at [facility], pt voices understanding and consents to assessment. Pt is A&O x4 and answers all questions appropriately at this time. Pt ambulating in room in no distress. Care providers, pharmacy, and demographics verified/updated. Admitting Dx: acute cholecystitis Strata Score: 1 PCP:Remigio Specialists:Denies Preferred Pharmacy:[facility] Retail Insurance: [facility] Prescription Benefit: yes LNOK: Thien Sánchez, Living Arrangements: Pt lives with and 3 kids in a two story home with no steps to enter. Pt reports she is I in ADL/IADLs and denies concerns at home. Transportation: Pt drives self and denies concerns with transportation. DME:Denies HHC/SNF: Denies hx of Pt states no concerns with going home at time of dc. Pt states no further concerns/needs. CM to follow. Advised pt to ask CM if any further questions/concerns/needs arise, voices understanding. Pt Goal: Home Plan: Home Estefanía SKAGGS CM
--- NOTE | 2024-07-05 13:32 | PCM.DC ---
Discharge Instructions Diet Discharge Diet: No restrictions DC O2, CPAP, BIPAP needs Home O2 Discharge instructions: No Dressing / Incision Discharge Activity: No Restrictions Follow Up Care Test Results: Test results from this visit will be discussed in further detail at your follow-up appointment, if applicable. Discharge Plan Admission Admit Date/Time: 07/04/24 10:12 Primary Reason for Your Visit: Abdominal pain Attending Provider: Tristen Harrison Primary Care Provider: Harriett Flood Consulting Providers: Veronica Austin; Juan Hdez Instructions Additional Instructions / Restrictions: Please have repeat labs drawn on to check your liver enzymes in 5 to 7 days. Follow-up with Dr. Mcfarland in the office in the next few weeks. Discharge Orders/Prescriptions Prescriptions: Continued multivitamin Tablet 1 tab PO DAILY dextroamphetamine-amphetamine [Adderall] 30 mg tablet 30 mg PO 0800,1200 lisinopril 5 mg tablet 5 mg PO DAILY Other Ambulatory Orders: Liver Profile (Routine) Timeframe: 5 Days Facility: [facility] - Location: Laboratory Ordered By: Dr. Tristen Harrison Referrals / Follow Up: Harriett Flood MD [Primary Care Provider] - Sergio Mcfarland DO [Med Staff - Active Staff] - Disposition Disposition (needs filled in before D/C Order can be placed): Home, Self Care
--- NOTE | 2024-07-05 13:33 | DS.PCM_ITS ---
Providers Date of Admission: 07/04/24 Date of Discharge: 07/05/24 Primary Care Physician: Dr. Harriett Flood MD Consultations 07/04/24 10:59 Consult: Gastroenterology Routine Consulting Provider: [facility] Reason for Consult: acute cholecysitis EMERGENT Consult: No Notified: Yes Date Notified: 07/04/24 Time Notified: 10:15 Method of Notification: Text Consult: General Surgery Routine Consulting Provider: Veronica Austin Reason for Consult: Acute cholecystitis with cholelithiasis EMERGENT Consult: No Notified: Yes Date Notified: 07/04/24 Time Notified: 10:15 Method of Notification: ED Physician Initiated Reason For Visit: ACUTE CHOLECYSTITIS Diagnosis Discharge Diagnosis (1) Cholelithiasis: Status: Acute Code(s): K80.20 - Calculus of gallbladder without cholecystitis without obstruction (2) Elevated LFTs: Status: Acute Code(s): R79.89 - Other specified abnormal findings of blood chemistry Medications at Discharge Home Medications dextroamphetamine-amphetamine 30 mg tablet (Adderall) 30 mg PO 0800,1200 11/08/21 multivitamin 1 tab PO DAILY 11/08/21 lisinopril 5 mg tablet 5 mg PO DAILY 07/04/24 Hospital Course Operations None Procedures - (Chest x-ray, gallbladder ultrasound, CT abdomen/pelvis with IV contrast) Summary of Care Provided Minutes Spent on Discharge: 35 Hospital Course: Patient is a 38-year-old female who presented to [facility] ED on 07/04/2024 with RUQ abdominal pain. Short hospital course as noted below. Patient discharged home in stable condition on 07/05. 1. RUQ abdominal pain with elevated LFTs ? GI and general surgery followed. Initially seemed consistent with acute cholecystitis. However, gallbladder ultrasound showed only cholelithiasis with no evidence of acute cholecystitis, and CT abdomen pelvis with IV contrast also showed normal-appearing gallbladder and no biliary duct dilation. LFTs on admit of total bili 0.80, direct bili 0.54, AST 594, ALT 352, alk phos 135; roughly remained stable on hospital day 2. Per GI, unclear etiology but autoimmune hepatitis is a possibility. Significant lab workup sent. Stable on hospital day 2 and wished to go home with close outpatient GI follow-up, and she was discharged home on 07/05. 2. Hypertension ? Continue home lisinopril. 3. Class III obesity ? BMI 40 on admit. Encouraged weight loss. 4. ADHD ? Continue home Adderall on discharge. *Patient notably was admitted under inpatient status but recovered more quickly than expected and was able to be discharged home on hospital day 2. Total clinical time spent by myself addressing the patient's medical issues, reviewing all the data, and collaborating with patient's care team: 35 minutes. Physical Exam Const alert, oriented x3 and no apparent distress Constitutional Narrative: Pleasant younger female, class III obesity, mildly fatigued appearing but otherwise sitting back comfortably in bed, conversing normally, in no acute distress. General Appearance: cooperative and comfortable HEENT normocephalic, head/scalp atraumatic, hearing grossly normal bilaterally, nasal mucous membranes and turbinates normal and moist oral mucous membranes Eyes PERRL, EOMs intact bilaterally and conjunctivae normal Neck full ROM Chest inspection of chest normal Resp normal respiratory effort, normal air movement, no use of accessory muscles and clear to auscultation bilaterally Cardio regular rate, regular rhythm, no murmurs and peripheral pulses 2+ throughout GI normal to inspection, nondistended, normoactive bowel sounds, soft to palpation, non-tender and non-distended Back/Spine normal ROM Extremity normal to inspection, full ROM and no pedal edema Skin no rashes or lesions noted Psych mental status grossly normal Weight / BMI Weight Weight: 99.3 kg Body Mass Index (BMI) 40.0 ABG / Lab / Microbiology Data 07/05/24 04:23 07/05/24 04:23 Laboratory: Laboratory Results - last 24 hr 07/04/24 06:36: GGT 213 H 07/05/24 04:23: Iron 209 H, TIBC 316, Iron Saturation 66.0 H, Unsaturated IBC 107 L, Ferritin 23 07/05/24 09:20: ESR 9, Iron 258 H, TIBC 352, Iron Saturation 73.3 H, Unsaturated IBC 94 L, Ferritin 28, C-React Prot Ext Range 6.50 H Radiography Diagnostic Testing: Radiology Impression Abdomen/Pelvis CT 07/05/24 06:53 IMPRESSION: Nondistended gallbladder with appearance of edema, gallbladder fossa fluid for example coronal 49 concerning for possible cholecystitis, clinically correlate. No evidence of biliary ductal dilation. Small amount of left lower quadrant and pelvic free fluid. Reading Location: [id number] D/C Instructions DC O2, CPAP, BIPAP Needs Home O2 Discharge instructions: No Meaningful Use Info Meaningful Use Meaningful Use Diagnoses (Choose all that apply): None applicable Ischemic Stroke Statin Dosing Therapy Reference: STATIN DOSE THERAPY REFERENCE: * Patients > 75 years receive moderate or high dose statin therapy. * Patients 75 years or YOUNGER should receive HIGH intensity statin dose unless contraindicated. You will be required to document reason for non-treatment if statin daily dose does not meet guidelines. HIGH DOSE STATIN THERAPY DAILY Atorvastatin > than or = to 40 mg Rosuvastatin > than or = to 20 mg Amlodipine + Atorvastatin > than or = to 2.5/40 mg Ezetimibe + Simvastatin 10/80 mg Simvastatin 80mg Discharge Plan Admission Admit Date/Time: 07/04/24 10:12 Primary Reason for Your Visit: Abdominal pain Attending Provider: Tristen Harrison Primary Care Provider: Harriett Flood Consulting Providers: Veronica Austin; Juan Hdez Instructions Forms: Work / School Excuse Additional Instructions / Restrictions: Please have repeat labs drawn on to check your liver enzymes in 5 to 7 days. Follow-up with Dr. Mcfarland in the office in the next few weeks. Discharge Orders/Prescriptions Prescriptions: Continued multivitamin Tablet 1 tab PO DAILY dextroamphetamine-amphetamine [Adderall] 30 mg tablet 30 mg PO 0800,1200 lisinopril 5 mg tablet 5 mg PO DAILY Other Ambulatory Orders: Liver Profile (Routine) Timeframe: 5 Days Facility: [facility] - Location: Laboratory Ordered By: Dr. Tristen Harrison Referrals / Follow Up: Harriett Flood MD [Primary Care Provider] - Sergio Mcfarland DO [Med Staff - Active Staff] - Disposition Disposition (needs filled in before D/C Order can be placed): Home, Self Care Charges/Coding Visit Charges Inpatient E&M: 53136 Disch Hosp >30min
[2024-07-05 14:46] VITALS: BP 138/102; PULSE 78; RESP 16; TEMP 36.2; O2SAT 100
--- NOTE | 2024-07-05 14:54 | PHA.DC.MR.R ---
Pharmacy [place] Med Reconciliation Pharmacy Service has performed discharge medication reconciliation for this patient. The patient's discharge medication list was reviewed for discrepancies and discrepancies were resolved. Medications at Discharge Home Medications dextroamphetamine-amphetamine 30 mg tablet (Adderall) 30 mg PO 0800,1200 11/08/21 multivitamin 1 tab PO DAILY 11/08/21 lisinopril 5 mg tablet 5 mg PO DAILY 07/04/24
[2024-07-06 04:07] LABS: GGTP 213 IU/L (0-60)
[2024-07-06 17:08] LABS: Anti-Mitochondrial AB <20.0 Units (0.0-20.0); Anti-Smooth Muscle ABS 11 Units (0-19)
== END 2024-07-05 14:54 | disposition home or self-care (01) ==
LOC: ED 07:19 → MS3 10:22
PROVIDERS: Anesthesiology; Emergency Medicine; Internal Medicine Gastroenterology; Admitting Provider Internal Medicine; Emergency Provider Emergency Medicine; PCP Internal Medicine; Visit Provider Hospitalist
DX: K80.20 Calculus of gallbladder without cholecystitis without obstruction (principal); E66.813 Obesity, class 3; Z66 Do not resuscitate; Z51.5 Encounter for palliative care; I10 Essential (primary) hypertension; Z68.41 Body mass index [BMI] 40.0-44.9, adult; F90.9 Attention-deficit hyperactivity disorder, unspecified type; Z87.891 Personal history of nicotine dependence; R79.89 Other specified abnormal findings of blood chemistry
CPT/HCPCS: 36415; 71045; 74177; 76705; 80048; 80074; 80076; 81001; 81025; 82728; 82784; 82785; 82787; 82977; 83516; 83540; 83550; 83690; 83735; 84165; 85025; 85610; 85652; 85730; 86036; 86037; 86140; 86255; 86334; 86645; 86664; 86665; 86671; 86850; 86900; 86901; 93005; 94668; 99252; 99283; Q9967; A4216; G0463; J2405

== ENCOUNTER → 2024-07-12 | Outpatient (CLI) | payer MEDICAID, SELFPAY ==
[2024-07-12 18:39] LABS: AST(SGOT) 24 U/L (<=31); Alanine Aminotransfer ALT/SGPT 113 U/L (<=34); Albumin, Serum 4.5 g/dL (3.5-5.0); Alkaline Phosphatase 143 U/L (35-104); Protein, Total 7.5 g/dL (5.9-8.4); Total Bilirubin 0.16 mg/dL (0.00-1.30)
== END | disposition home or self-care (01) ==
LOC: LABSPEC 16:48 → LAB 16:49
PROVIDERS: PCP Internal Medicine; Referring Provider Hospitalist; Visit Provider Hospitalist
DX: R79.89 Other specified abnormal findings of blood chemistry (principal); K80.20 Calculus of gallbladder without cholecystitis without obstruction
CPT/HCPCS: 36415; 80076

== ENCOUNTER → 2024-08-10 | Outpatient (CLI) | payer MEDICAID, SELFPAY ==
[2024-08-10 10:25] LABS: Absolute Neutrophil Count 2.9 X10^3/uL (2.0-7.7); Basophil# 0.03 X10^3/uL; Basophil% 0.6 % (0-1); Eosinophil# 0.11 X10^3/uL; Eosinophils% 2.3 % (0-5); Hemoglobin 12.1 g/dL (12.0-15.0); Lymphocyte % 25.5 % (19-41); Mean Corp Hgb Conc 32.7 g/dL (32-36); Mean Corpuscular Hgb 25.9 pg (27.0-32.0); Mean Corpuscular Volume 79.1 fL (81-99); Mean Platelet Vol. 9.9 fl (6.2-12.0); Monocyte% 10.6 % (0-10); NRBC Flagged by Analyzer 0 % (0-5); Neutrophil # 2.86 X10^3/uL (2.7-7.7); Neutrophil % 60.8 % (47-70); Platelet Count 334 K/mm3 (150-450); RBC Distribution Width CV 15.5 % (11.6-14.6); RBC Distribution Width SD 44.4 fl (35.1-43.9); Red Blood Count 4.68 M/mm3 (4.2-5.4); White Blood Count 4.7 K/mm3 (4.4-11.0)
[2024-08-10 10:46] LABS: Erythrocyte Sedimentation Rate 6 mm/hr (0-30)
[2024-08-10 11:14] LABS: ALB/GLOB Ratio 1.7 RATIO (0.9-2.4); AST(SGOT) 18 U/L (<=31); Alanine Aminotransfer ALT/SGPT 15 U/L (<=34); Albumin, Serum 4.5 g/dL (3.5-5.0); Alkaline Phosphatase 88 U/L (35-104); Anion Gap 9 (5-15); BUN 10 mg/dL (4-19); BUN/Creat Ratio 16.5 RATIO (10-20); CRP 3.64 mg/L (0.0-3.0); Calcium,Total 9.2 mg/dL (7.6-11.0); Carbon Dioxide 23.7 mmol/L (21.0-32.0); Chloride 105 mmol/L (98-108); EST Glomerular Filtration Rate 119 (>60); Globulin 2.6 g/dL (2.2-4.2); Glucose 94 mg/dL (70-99); Potassium 4.4 mmol/L (3.3-5.1); Protein, Total 7.1 g/dL (5.9-8.4); Sodium Level 137 mmol/L (133-145); Total Bilirubin 0.39 mg/dL (0.00-1.30)
--- OUTSIDE RECORDS SUMMARY | 2024-08-10 19:59 | XMS RPT_ITS | CCD ---
Author Organization [facility] Care Team Providers Care Plant Taxonomy Teacher Name Role Phone Mena Vernon MD Primary Care Provider Mena Vernon MD Primary Care Provider Mauricio CASTAÑEDA, Jaylan Unavailable JOANIE, VENITA R Attending Unavailable SELF, SELF Referring Unavailable MENA VERNON Primary Care Unavailable JOANIE, VENITA R Referring Unavailable JOANIE, VENITA R Attending Unavailable MENA VERNON Primary Care Unavailable JOANIE, VENITA R Attending Unavailable MENA VERNON Primary Care Unavailable JOANIE, VENITA R Referring Unavailable Mena Vernon MD Primary Care Provider Mena Vernon MD Primary Care Provider SAULO CASTAÑEDA, DR SAN Primary Care Physician DOMINIQUE CASTAÑEDA, DIEGO Sylvester Attending Unavail able SAULO CASTAÑEDA, DR SAN Primary Care Unavailable DIEGO FOX MD Attending Unavail able SAULO CASTAÑEDA, DR SAN Primary Care Unavailable Redd FUELER.HVAC/R INSTRUCTOR, Deepti Unavailable Jai FUELER.BONING ROOM WORKER, Karol Unavailable Jai FUELER.BONING ROOM WORKER, Karol Unavailable Saulo CASTAÑEDA, Dr. Mena Valenzuela Primary Care Provider Dr. Gavin Alford DO Emergency Provider Lemuel CASTAÑEDA, Dr. Martinez Admit Provider Lemuel CASTAÑEDA, Dr. Martinez Attending Provider Lemuel CASTAÑEDA, Dr. Martinez Other Provider Norman CASTAÑEDA, Dr. Martin Other Provider [phone]. Tristen Harrison DO Attending Provider Norman CASTAÑEDA, Dr. Martin Attending Provider Dr. Tristen Harrison DO Other Provider Hunter KING, Dr. Ramon Referring Provider Jai FUELER.BONING ROOM WORKER, Karol Unavailable TALAMPAS, MENA D Attending Unavailable TALAMPAS, EMNA D Primary Care Unavailable TALAMPAS, MENA D Primary Care Unavailable TALAMPAS, MENA D Primary Care Unavailable TALAMPAS, MENA D Primary Care Unavailable TALAMPAS, MENA D Attending Unavailable TALAMPAS, MENA D Referring Unavailable TALAMPAS, MENA D Primary Care Unavailable TALAMPAS, MENA D Primary Care Unavailable JAYLAN SYED Attending Unavailable TALAMPAS, MENA D Primary Care Unavailable TALAMPAS, MENA D Attending Unavailable TALAMPAS, MENA D Primary Care Unavailable Lemuel, Juan Admitting Unavailable Talampas, Mena D Primary Care Unavailable Robotham, Veronica Consulting Unavailable Lemuel, Juan Attending Unavailable Lemuel, Juan Consulting Unavailable Talampas, Mena D Primary Care Unavailable Tristen Harrison Referring Unavailable Tristen Harrison Attending Unavailable Provider, Ed Physician Attending Unavailab le Talampas, Mena D Primary Care Unavailable Lemuel, Juan Admitting Unavailable Talampas, Mena D Primary Care Unavailable Robotham, Veronica Consulting Unavailable Tristen Harrison Attending Unavailable Lemuel, Juan Consulting Unavailable Talampas, Mena D Primary Care Unavailable Talampas, Mena D Referring Unavailable Sergio Mcfarland Attending Unavailable Tristen Harrison Attending Unavailable Tristen Harrison Consulting Unavailable Roboteddie, Veronica Attending Unavailable Tristen Harrison Referring Unavailable Allergies Allergy Classification Reported Allergen(s) Allergy Type Date of Onset Reaction(s) Facility (20 sources) Seasonal allergy; Translations: [SEASONAL ALLERGIES] Propensity to adverse reactions 07-20-19 16 Other: See Comments [facility] (5 sources) Amphetamine aspartate / Amphetamine Sulfate / Dextroamphetamine saccharate / Dextroamphetamine Sulfate; Translations: [DEXTROAMPHETAMINE-A MPHETAMINE] Drug Allergy 05-25-19 Diarrhea [facility] (5 sources) metFORMIN; Translations: [METFORMIN] Drug Allergy 07-05-[address] [facility] (1 source) metFORMIN Drug Allergy 07-05-19 [facility] Repository Medications Current Medications Medication Drug Class(es) Dates Sig (Normalized) Sig (Original) fluconazole 150 mg oral tablet (3 sources) Azole Antifungal Start: 06-20-2023 End: 06-20-2023 take 1 tablet by mouth once fluconazole (DIFLUCAN) 150 mg tablet Take 1 tablet by mouth one time only for 1 dose. 1 tablet 0 06/20/2023 06/20/2023 Active Start: 07-15-2022 End: 07-15-2022 take 1 tablet by mouth once fluconazole (DIFLUCAN) 150 mg tablet Take 1 tablet by mouth one time only for 1 dose. 1 tablet 0 07/15/2022 07/15/2022 Comment on above: Take 1 tablet by ryan th one time only for 1 dose. labetalol hydrochloride 100 mg oral tablet (1 source) beta-Adrenergic Marce Start: take 100 mg by mouth three times daily Labetalol Active 100 MG PO THREE TIMES A DAY January 21, 2019 6:10am lisdexamfetamine dimesylate 50 mg oral capsule (12 sources) Central Nervous System Stimulant Start: End: take 1 capsule by mouth once daily lisdexamfetamine (VYVANSE) 50 mg capsule Indications: Attention deficit hyperactivity disorder (ADHD), unspecified ADHD type Take 1 capsule by mouth once daily for 30 days. 30 capsule 0 12/01/2021 12/31/2021 Active Start: 10-31-2021 End: 12-01-2021 take 1 capsule by mouth once daily lisdexamfetamine (VYVANSE) 40 mg capsule Indications: Attention deficit hyperactivity disorder (ADHD), unspecified ADHD type Take 1 capsule by mouth once daily for 30 days. 30 capsule 0 10/31/2021 12/01/2021 Discontinued Start: 08-14-2021 End: 07-31-2021 lisdexamfetamine (VYVANSE) 3 0 mg capsule Indications: Attention deficit hyperactivity disorder (ADHD), unspecified ADHD type Take 1 capsule by mouth once daily for 30 days. Do not start before August 14, 2021. 30 capsule 0 08/14/2021 07/31/2021 Discontinued Start: 08-08-2021 End: 09-05-2021 lisdexamfetamine (VYVANSE) 3 0 mg capsule Indications: Attention deficit hyperactivity disorder (ADHD), unspecified ADHD type Take one capsule daily Do not start before August 08, 2021. 30 capsule 0 08/08/2021 2021 Discontinued Start: 07-31-2021 End: 2021 take 1 capsule by mouth once daily, then take 3 capsules by mouth once daily lisdexamfetamine (VYVANSE) 10 mg capsule Indications: Attention deficit hyperactivity disorder (ADHD), unspecified ADHD type Take 1 capsule by mouth once daily for 7 days, THEN 3 capsules once daily for 7 days. 28 capsule 0 07/31/2021 2021 Discontinued Comment on above: Take 1 capsule by mo ut once daily for 7 days, THEN 3 capsules once daily for 7 days. Take one capsule bekah ly Do not start before August 08, 2021. Take 1 capsule by mo [facility] once daily for 7 days. Do not start before August 01, 2021. Take 1 capsule by [facility] once daily for 30 days. Do not start before August 14, 2021. Take 1 capsule by [facility] once daily for 30 days. lisinopril 5 mg oral tablet (20 sources) Angiotensin Converting Enzyme Inhibitor Start: 4 End: 5 take 1 tablet by mouth once daily lisinopril (ZESTRIL) 5 mg tablet Take 1 tablet by mouth once daily. 90 tablet 3 04/19/2024 Active Comment on above: [facility] Multiple Vitamin (multivitamin) capsule (3 sources) take 1 capsule by mouth once daily Multiple Vitamin (multivitamin) capsule Take 1 capsule by mouth daily. 0 Active MULTIVITAMIN ORAL (8 sources) MULTIVITAMIN ORA L Take by mouth. Active MULTIVITAMIN ORA L Take by mouth. 0 Active Comment on above: Take by mouth. Multivitamin preparation (2 sources) Start: 2 take 1 tablet by mouth once daily Multivitamin Active 1 TABLET PO DAILY November 08, 2021 12:00am Multivitamin Tablet (3 sources) Start: 2 Multivitamin Tablet Active 1 {tbl} PO DAILY November 08, 2021 12:00am ondansetron 4 mg disintegrating oral tablet (1 source) Serotonin-3 Receptor Antagonist Start: 2 take 4 mg by mouth every eight hours Ondansetron Active 4 MG PO Q8H July 27, 2021 3:42pm pantoprazole 40 mg delayed release oral tablet (1 source) Proton Pump Inhibitor Start: 2 take 1 tablet by mouth once daily Pantoprazole (Protonix) 40 mg tablet,delayed release (DR/EC) Active 40 MG PO DAILY July 27, 2021 3:42pm Multivitamin Tablet (1 source) Start: 9 Multivitamin Tablet Active January 18, 2019 5:36pm Completed/Discontinued Medications Medication Drug Class(es) Dates Sig (Normalized) Sig (Original) amoxicillin 875 mg / clavulanate 125 mg oral tablet (2 sources) Penicillin-class Antibacterial Start: 04-14-2024 End: 04-19-2024 take 1 tablet by mouth twice daily amoxicillin-clavu lanate potassium (AUGMENTIN) 875-125 mg per tablet Take 1 tablet by mouth two times a day for 5 days. 10 tablet 04/14/2024 04/19/2024 Discontinued amphetamine aspartate 7.5 mg / amphetamine sulfate 7.5 mg / dextroamphetamine saccharate 7.5 mg / dextroamphetamine sulfate 7.5 mg oral tablet (20 sources) Central Nervous System Stimulant Start: 07-04-2024 End: 07-04-2024 take 1 tablet by mouth every four to six hours Dextroamphetamine -Amphetamine (Adderall) 30 mg tablet Discontinued 30 mg PO TWICE A DAY July 04, 2024 12:00am July 04, 2024 9:45am administer doses at least 4-6 hours apart Start: 02-06-2024 End: 07-15-2024 ADDERALL 30 mg tablet Indica tions: Attention deficit hyperactivity disorder (ADHD), unspecified ADHD type Take 1 tablet by mouth two times a day for 30 days. Patient should start on June 15, 2024. 60 tablet 06/15/2024 Active Start: 01-08-2023 End: 12-01-2023 take 1 capsule by mouth once daily amphetamine-dextroamphetamine XR (ADDERALL XR) 30 mg capsule Indications: Attention deficit hyperactivity disorder (ADHD), unspecified ADHD type Take 1 capsule by mouth once daily for 30 days. Midday as directed 30 capsule 0 01/08/2023 01/24/2023 Discontinued Start: 12-09-2022 End: 01-24-2023 take 1 tablet by mouth once daily in the morning ADDERALL 30 mg tablet Indications: Attention deficit hyperactivity disorder (ADHD), unspecified ADHD type Take 1 tablet by mouth once daily for 30 days. In AM 30 tablet 0 12/09/2022 01/24/2023 Discontinued Start: 12-26-2021 End: 12-31-2021 take 1 capsule by mouth once daily amphetamine-dextroamphetamine XR (ADDERALL XR) 30 mg 24 hr capsule Indications: Attention deficit hyperactivity disorder (ADHD), unspecified ADHD type Take 1 capsule by mouth once daily for 30 days. 30 capsule 0 12/26/2021 12/31/2021 Discontinued Start: 04-25-2021 End: 02-02-2024 take 1 tablet by mouth twice daily ADDERALL 30 mg tablet Indications: Attention deficit hyperactivity disorder (ADHD), unspecified ADHD type Take 1 tablet by mouth two times a day for 30 days. 60 tablet 01/07/2024 02/02/2024 Discontinued Start: 08-25-2017 End: 01-21-2019 take 1 tablet by mouth twice daily Dextroamphetamine-Amphetamine (Adderall 10 Mg Tablet) 10 MG tablet Discontinued 10 mg PO TWICE A DAY August 25, 2017 12:00am January 21, 2019 6:10am Start: 06-24-2015 End: 04-26-2016 take 1 tablet by mouth once daily Dextroamphetamine-Amphetamine (Adderall 20 Mg Tablet) 20 MG tablet Discontinued 20 mg PO DAILY June 24, 2015 12:00am April 26, 2016 8:47am Comment on above: Take 1 tablet by ryan twice daily for 30 days. Do not start before July 24, 2021. Take 1 tablet by ryan twice daily for 30 days. Take 1 tablet by ryan twice daily for 30 days. Do not start before September 14, 2021. Take 1 tablet by ryan twice daily for 30 days. Do not start before October 14, 2021. Take 1 tablet by ryan th twice daily for 30 days. Do not start before April 25, 2021. Take 1 tablet by ryan th twice daily for 30 days. Do not start before May 25, 2021. Take 1 tablet by ryan th twice daily for 30 days. Do not start before June 24, 2021. Take 1 tablet by ryan th twice daily for 30 days. JulyOctober 17, 2021. Take 1 tablet by ryan th twice daily for 30 days. Do not start before January 30, 2022. Take 1 tablet by ryan th twice daily for 30 days. Do not start before March 01, 2022. Take 1 capsule by mo uth once daily for 30 days. Take 1 tablet by ryan th twice daily for 14 days. Do not start before March 01, 2022. Take 1 tablet by ryan th twice daily for 30 days. Do not start before March 15, 2022. Take 1 tablet by ryan th twice daily for 30 days. Do not start before April 20, 2022. Take 1 tablet by ryan th twice daily for 30 days. Do not start before May 20, 2022. Take 1 tablet by ryan th twice daily for 30 days. Do not start before June 19, 2022. Take 1 tablet by ryan th twice daily for 30 days. Do not start before July 19, 2022. Take 1 tablet by ryan th twice daily for 30 days. Do not start before September 17, 2022. Take 1 tablet by ryan th twice daily for 30 days. Do not start before August 18, 2022. Take 1 tablet by ryan th twice daily for 30 days. Do not start before November 22, 2022. Take 1 capsule by mo uth once daily for 30 days. Midday as directed Take 1 tablet by ryan th once daily for 30 days. In AM Take 1 tablet by ryan th two times a day for 30 days. Take 1 tablet by ryan th two times a day for 30 days. Do not start before April 27, 2023. Take 1 tablet by yran th two times a day for 30 days. Do not start before May 27, 2023. Take 1 tablet by ryan th two times a day for 30 days. Do not start before June 26, 2023. benzonatate 100 mg oral capsule (18 sources) Non-narcotic Antitussive Start: End: take 2 capsules by mouth three times daily as needed for cough Benzonatate 100 mg capsule Discontinued 200 mg PO 3 TIMES DAILY NEEDED as needed for cough July 04, 2024 12:00am July 04, 2024 9:43am Start: 05-29-2023 End: 10-03-2023 take 2 capsules by mouth every eight hours as needed benzonatate (TESSALON PERLES) 100 mg capsule Take 2 capsules by mouth three times a day as needed. 30 capsule 05/29/2023 10/03/2023 Discontinued Comment on above: Take 2 capsules by m out three times a day as needed. clindamycin 0.01 mg/mg topical gel (9 sources) Lincosamide Antibacterial Start: 04-30-19 End: 11-01-19 clindamycin (CLEOCIN-T) 1 % gel Apply to affected area twice daily. 30 g 0 04/30/2021 10/31/2021 Discontinued Comment on above: Apply to affected ar ea twice daily. doxycycline monohydrate 100 mg oral capsule (4 sources) Tetracycline-class Drug Start: 06-23-19 End: 07-05-19 take 1 capsule by mouth twice daily Doxycycline Monohydrate 100 mg capsule Discontinued 100 mg PO TWICE A DAY June 22, 2022 12:00am July 04, 2024 9:44am drospirenone / Ethinyl Estradiol (15 sources) Progestin, Estrogen Start: 12-25-19 End: 10-03-19 take 1 tablet by mouth once daily Drospirenone-Ethinyl Estradiol (Zahra DOYLE,) 3-0.02 mg per tablet Take 1 tablet by mouth once daily. 28 tablet 11 12/24/2022 10/03/2023 Discontinued Start: 12-24-2022 take 1 tablet by ryan th once daily Drospirenone-Ethinyl Estradiol (Zahra DOYLE,) 3-0.02 mg per tablet Take 1 tablet by mouth once daily. 28 tablet 11 12/24/2022 Active Comment on above: Take 1 tablet by ryan th once daily. escitalopram 10 mg oral tablet (11 sources) Serotonin Reuptake Inhibitor Start: 07-11-19 End: 10-23-19 take 1 tablet by mouth once daily escitalopram oxalate (LEXAPRO) 10 mg tablet Take 1 tablet by mouth once daily. 30 tablet 5 07/11/2022 10/22/2022 Discontinued (Other) Comment on above: Take 1 tablet by ryan th once daily. 12 hr guaiFENesin 600 mg extended release oral tablet (2 sources) Start: 04-14-19 End: 04-19-19 take 2 tablets by mouth twice daily guaiFENesin (MUCINEX) 600 mg 12 hr tablet Take 2 tablets by mouth two times a day. 24 tablet 04/14/2024 04/19/2024 Discontinued ibuprofen 600 mg oral tablet (5 sources) Nonsteroidal Anti-inflammatory Drug Start: 11-10-19 End: 07-05-19 take 1 tablet by mouth every six hours as needed for pain Ibuprofen 600 MG tablet Discontinued 600 mg PO EVERY 6 HOURS as needed for Pain 06 01November 09, 2021 12:00am July 04, 2024 9:45am 24 hr metFORMIN hydrochloride 500 mg extended release oral tablet (5 sources) Biguanide Start: 01-11-20 End: 05-10-19 24 take 1 tablet by mouth twice daily at mealtime metFORMIN ER (GLUCOPHAGE XR) 500 mg 24 hr tablet Take 1 tablet by mouth two times a day with meals. 60 tablet 3 01/10/2023 04/22/2023 Discontinued Start: 01-08-2023 End: 01-10-2023 take 1 tablet by mouth twice daily at mealtime metFORMIN (GLUCOPHAGE) 500 mg tablet Take 1 tablet by mouth two times a day with meals. 60 tablet 5 01/08/2023 01/10/2023 Discontinued Comment on above: Take 1 tablet by ryan th two times a day with meals. Problems Active Problems Problem Classification Problem Date Documented Date Episodic/Chronic Abdominal pain (20 sources) Epigastric pain; Translations: [Epigastric pain] Onset: 01-12-2010 Resolved: 03-24-2013 03-24-2013 Episodic Administrative/social admission (1 source) Worried well; Translations: [Person with feared health complaint in whom no diagnosis is made] Episodic Allergic reactions (8 sources) Allergic contact dermatitis caused by chemical; Translations: [Allergic contact dermatitis due to other chemical products] 06-22-2022 Episodic Anxiety disorders (20 sources) Mixed anxiety and depressive disorder; Translations: [Anxiety disorder, unspecified] Onset: 10-31-2021 Chronic Attention-deficit, conduct, and disruptive behavior disorders (20 sources) Attention deficit hyperactivity disorder; Translations: [Attention-deficit hyperactivity disorder, unspecified type] Chronic Attention-deficit, conduct, and disruptive behavior disorders (1 source) Attention-deficit hyperactivity disorder, unspecified type; Translations: [Attention deficit hyperactivity disorder (ADHD), unspecified ADHD type] Onset: 03-28-2014 Chronic Biliary tract disease (1 source) Other cholangitis; Translations: [Other cholangitis] Onset: 07-28-2024 Chronic Biliary tract disease (10 sources) Acute angiocholecystitis; Translations: [Acute cholecystitis] Onset: 07-28-2024 07-04-2024 Episodic Deficiency and other anemia (1 source) Microcytic hypochromic anemia; Translations: [Iron deficiency anemia, unspecified] 05-18-2023 Episodic Deficiency and other anemia (1 source) Iron deficiency anemia; Translations: [Iron deficiency anemia, unspecified] 04-19-2024 Episodic Disorders usually diagnosed in infancy, childhood, or adolescence (20 sources) Attention deficit hyperactivity disorder, predominantly inattentive type; Translations: [Other specified behavioral and emotional disorders with onset usually occurring in childhood and adolescence] Onset: 03-28-2014 03-28-2014 Chronic Essential hypertension (4 sources) Essential hypertension; Translations: [Essential (primary) hypertension] Onset: 10-03-2023 04-22-2023 Chronic Immunizations and screening for infectious disease (1 source) Encounter for screening for human papillomavirus (HPV); Translations: [Encounter for screening for human papillomavirus (HPV)] Onset: 07-21-2024 Episodic Inflammation; infection of eye (except that caused by tuberculosis or sexually transmitteddisease) (1 source) Acute atopic conjunctivitis, unspecified eye; Translations: [Seasonal allergic conjunctivitis] Onset: 07-28-2024 Episodic Menstrual disorders (2 sources) Menorrhagia; Translations: [Excessive and frequent menstruation with regular cycle] Chronic Nausea and vomiting (1 source) Nausea; Translations: [Nausea] Episodic Nonmalignant breast conditions (12 sources) Pain of breast; Translations: [Mastodynia] Onset: 02-15-2022 Episodic Other aftercare (1 source) Long-term current use of drug therapy; Translations: [Other oysterman (current) drug therapy] 04-19-2024 Episodic Other endocrine disorders (20 sources) Polycystic ovary syndrome; Translations: [Polycystic ovarian syndrome] Onset: 01-08-2023 01-08-2023 Chronic Other female genital disorders (1 source) Abnormal uterine bleeding; Translations: [Abnormal uterine and vaginal bleeding, unspecified] Chronic Other liver diseases (1 source) Inflammatory liver disease, unspecified; Translations: [Hepatitis] Onset: 07-28-2024 Chronic Other lower respiratory disease (1 source) Cough; Translations: [Acute cough] 05-29-2023 Episodic Other lower respiratory disease (1 source) Cough; Translations: [Acute cough] 04-14-2024 Episodic Other nervous system disorders (1 source) Tremor; Translations: [Tremor, unspecified] Episodic Other nervous system disorders (1 source) Eyelid finding; Translations: [Fasciculation] Episodic Other nutritional; endocrine; and metabolic disorders (20 sources) Obesity; Translations: [Obesity, unspecified] Onset: 09-28-2015 Resolved: 05-21-2016 10-07-2014 Chronic Other nutritional; endocrine; and metabolic disorders (20 sources) Obese class II; Translations: [Obesity, unspecified] Onset: 10-10-2021 10-10-2021 Chronic Other nutritional; endocrine; and metabolic disorders (1 source) Childhood obesity; Translations: [Other obesity due to excess calories] Chronic Other nutritional; endocrine; and metabolic disorders (3 sources) Morbid obesity; Translations: [Morbid (severe) obesity due to excess calories] Onset: 02-15-2022 02-15-2022 Chronic Other nutritional; endocrine; and metabolic disorders (3 sources) Obesity caused by energy imbalance; Translations: [Other obesity due to excess calories] 10-22-2022 Chronic Other nutritional; endocrine; and metabolic disorders (2 sources) Body mass index 30+ - obesity; Translations: [Body mass index (BMI) 38.0-38.9, adult] 07-21-2024 Chronic Other nutritional; endocrine; and metabolic disorders (1 source) Other obesity due to excess calories; Translations: [Class 2 obesity due to excess calories with body mass index (BMI) of 38.0 to 38.9 in adult, unspecified whether serious comorbidity present] Onset: 10-07-2014 Chronic Other nutritional; endocrine; and metabolic disorders (1 source) Body mass index (BMI) 38.0-38.9, adult; Translations: [Class 2 obesity due to excess calories with body mass index (BMI) of 38.0 to 38.9 in adult, unspecified whether serious comorbidity present] Onset: 10-07-2014 Chronic Other nutritional; endocrine; and metabolic disorders (1 source) Unintentional weight gain; Translations: [Abnormal weight gain] 10-22-2022 Episodic Other screening for suspected conditions (not mental disorders or infectious disease) (8 sources) Other specified abnormal findings of blood chemistry; Translations: [Elevated liver function tests] Onset: 07-15-2024 07-05-2024 Episodic Other skin disorders (2 sources) Acne vulgaris; Translations: [Acne vulgaris] Episodic Other skin disorders (1 source) Hirsutism; Translations: [Hirsutism] 10-22-2022 Episodic Other upper respiratory infections (4 sources) Acute upper respiratory infection; Translations: [Acute upper respiratory infection, unspecified] Episodic Skin and subcutaneous tissue infections (4 sources) Eruption; Translations: [Pyoderma] 06-22-2022 Episodic Spondylosis; intervertebral disc disorders; other back problems (1 source) Thoracic radiculopathy; Translations: [Radiculopathy, thoracic region] 04-19-2024 Episodic Unclassified (1 source) Obesity, Class II, BMI 35-39.9; Translations: [Obesity, Class II, BMI 35-39.9] Onset: 10-10-2021 Past or Other Problems Problem Classification Problem Date Documented Da te Episodic/Chronic Cancer of cervix (20 sources) Atypical squamous cells of undetermined significance on cervical Papanicolaou smear; Translations: [Atypical squamous cells of undetermined significance on cytologic smear of cervix (ASC-US)] Onset: 08-08-2015 Resolved: 10-10-2021 03-05-2021 Episodic Contraceptive and procreative management (20 sources) Patient encounter status; Translations: [Encounter for sterilization] Onset: 11-11-2018 Resolved: 05-29-2020 Episodic Deficiency and other anemia (1 source) Iron deficiency anemia, unspecified; Translations: [Iron deficiency anemia, unspecified iron deficiency anemia type] Onset: 04-19-2024 Episodic Genitourinary symptoms and ill-defined conditions (19 sources) Urinary incontinence; Translations: [Unspecified urinary incontinence] Onset: 12-10-2012 Resolved: 10-13-2015 10-13-2015 Chronic Hemorrhage during ; abruptio placenta; placenta previa (19 sources) Threatened miscarriage; Translations: [Threatened ] Onset: 01-12-2010 Resolved: 08-26-2010 08-26-2010 Episodic Hypertension complicating ; childbirth and the puerperium (19 sources) Elevated blood pressure; Translations: [Unspecified maternal hypertension, third trimester] Onset: 04-18-2016 Resolved: 05-21-2016 05-21-2016 Chronic Mood disorders (3 sources) Mood disorders Onset: 02-15-2022 02-15-2022 Nutritional deficiencies (2 sources) Iron deficiency; Translations: [Iron deficiency] Onset: 10-03-2023 11-13-2023 Episodic Other aftercare (1 source) Other oysterman (current) drug therapy; Translations: [Encounter for long-term current use of medication] Onset: 04-19-2024 Episodic Other complications of (19 sources) High risk ; Translations: [Supervision of other high risk pregnancies, first trimester] Onset: 02-19-2010 Resolved: 01-29-2019 01-29-2019 Episodic Other complications of (19 sources) Urinary tract infection in ; Translations: [Unspecified infection of urinary tract in , first trimester] Onset: 10-16-2015 Resolved: 05-21-2016 03-06-2021 Episodic Other diseases of bladder and urethra (20 sources) Urethral diverticulum; Translations: [Urethral diverticulum] Onset: 12-10-2012 12-10-2012 Episodic Other eye disorders (20 sources) Dry eyes; Translations: [Dry eye syndrome of bilateral lacrimal glands] Onset: 07-10-2022 Episodic Other eye disorders (1 source) Dry eye syndrome of bilateral lacrimal glands; Translations: [Dry eyes] Onset: 07-10-2022 Episodic Other gastrointestinal disorders (19 sources) Diarrhea; Translations: [Diarrhea, unspecified] Onset: 01-12-2010 Resolved: 03-24-2013 03-24-2013 Episodic Other and delivery including normal (19 sources) Normal in primigravida; Translations: [Encounter for supervision of normal first , unspecified trimester] Onset: 01-12-2010 Resolved: 02-19-2010 02-19-2010 Episodic Residual codes; unclassified (20 sources) History of gestational hypertension; Translations: [Personal history of other complications of , childbirth and the puerperium] Onset: 06-04-2018 06-04-2018 Episodic Screening and history of mental health and substance abuse codes (20 sources) H/O: depression; Translations: [Personal history of other mental and behavioral disorders] Onset: 06-04-2018 06-04-2018 Episodic Results Test Name Value Interpretation Reference Range Facility [facility] 07-23-2024 [facility] Telephone (AGGENS4) LIUDMILA WORLEY ([id number]) 1985 F Date Time Provider Department 07/23/24 PATRICIA GRIMES4 During your visit today, we recorded the following information about you: RejiMadeleineKamron 07/23/2024 11:52 AM Signed Lvm for pt to c/b and schedule new pt appt with Dr. Grimes for Interested in wt loss and possible surgery per referral request from Dr. Syed. Allergies As of Date: 07/23/2024 Noted Allergy Reaction DEXTROAMPHETAMINE-AMP HETAMINE 05/24/2024 6 - Diarrhea METFORMIN 07/04/2024 6 - Diarrhea SEASONAL ALLERGIES 07/20/2015 14 - Other: See Comments Date Reviewed: 07/21/2024 Reviewed by: Jaylan Syed MD - Fully Assessed Reason for Visit: Appointment [186] Prescriptions as of 07/23/2024 - MULTIVITAMIN ORAL Take by mouth. - lisinopril (ZESTRIL) 5 mg tablet Take 1 tablet by mouth once daily. - ADDERALL 30 mg tablet Take 1 tablet by mouth two times a day for 30 days. Patient should start on April 24, 2024. - ADDERALL 30 mg tablet Take 1 tablet by mouth two times a day for 30 days. Patient should start on May 16, 2024. - ADDERALL 30 mg tablet Take 1 tablet by mouth two times a day for 30 days. Patient should start on June 15, 2024. - ADDERALL 30 mg tablet Take 1 tablet by mouth two times a day for 30 days. Patient should start on April 05, 2024. Problem List As Of Date 07/23/2024 Noted Resolved Supervision of normal first [Z34.00] 01/12/2010 02/19/2010 Threatened , antepartum [O20.0] 01/12/2010 08/26/2010 Abdominal pain, epigastric [R10.13] 01/12/2010 03/24/2013 Diarrhea [R19.7] 01/12/2010 03/24/2013 Supervision of other high risk pregnancies, fir*02/19/2010 01/29/2019 Urethral diverticulum [N36.1] 12/10/2012 Urinary incontinence [R32] 12/10/2012 10/13/2015 Attention deficit disorder (ADD) [F98.8] 03/28/2014 Obesity, unspecified [E66.9] Atypical squamous cells of undetermined signifi*08/08/2015 10/10/2021 Obesity in [O99.210] 09/28/2015 05/21/2016 Group B Streptococcus urinary tract infection a*10/16/2015 05/21/2016 Elevated blood pressure affecting in *04/18/2016 05/21/2016 History of gestational hypertension [Z87.59] 06/04/2018 History of depression [Z86.59] 06/04/2018 Sterilization [Z30.2] 11/11/2018 05/29/2020 Obesity, Class II, BMI 35-39.9 [E66.812] 10/10/2021 Anxiety and depression [F41.9, F32.A] 10/31/2021 Dry eyes [H04.123] 07/10/2022 PCOS (polycystic ovarian syndrome) [E28.2] 01/08/2023 Encounter Status:Closed by KAMRON HORTON on 07/23/24 [facility] 07-21-2024 CNOV Office Visit (OBGYWM ) LIUDMILA WORLEY ([id number]) 1985 F Date Time Provider Department 07/21/24 4:00 PM JAYLAN SYED OBGYWM During your visit today, we recorded the following information about you: Blood pressure Weight Height Last Period 134/88 97.5 kg 1.6 m 07/16/24 Jaylan Syed MD 07/21/2024 5:06 PM Signed Liudmila is a 38 year old who presents for an annual gynecologic exam with complaints, GI issues. Had a hospitalization for abd. pain and dx w/ acute hepatitis as some type. Saw Dr. Mcfarland. Not sure what to do now, was told it wasn't her gallbladder. . 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 Menstrual flow: Moderate Sexually active: Yes Contraception: Tubal Ligation Contraception frequency: Always History of abnormal pap: No Last mammogram: never OB History Gravida3 Para3 Term3 Preterm0 AB0 Living3 SAB0 IAB0 Ectopic0 Multiple0 Live Births3 Problem Relation Age of Onset Arthritis Mother Lipids Mother No Known Problems Father Headache Sister No Known Problems Brother No Known Problems Brother Diabetes Maternal Grandmother Arthritis Maternal Grandmother Heart Maternal Grandmother Hypertension Maternal Grandmother Psychiatry Maternal Grandmother Alcohol/Drug Maternal Grandfather Arthritis Maternal Grandfather Heart Maternal Grandfather Hypertension Maternal Grandfather Diabetes Paternal Grandmother Arthritis Paternal Grandmother No Known Problems Son No Known Problems Other No Known Problems Daughter SOCIAL HISTORY Social History Tobacco Use Smoking status: Former Current packs/day: 0.00 Types: Cigarettes Quit date: 06/03/2008 Years since quittin.1 Smokeless tobacco: Never Tobacco comments: 2 Cigarettes per week Vaping Use Vaping status: Never Used Substance Use Topics Alcohol use: No Drug use: No REVIEW OF SYSTEMS Abdomen: No abdominal pain, nausea, vomiting, diarrhea, . No bloating, early satiety, indigestion, or increased flatulence. occas constipation Bladder: No dysuria, gross hematuria, urinary frequency, urinary urgency, or incontinence. Breast: No breast lumps, nipple d/c, overlying skin changes, redness or skin retraction. Allergies and current medication updated:Yes SENSITIVE EXAM: The sensitive examination was discussed with the Patient or Patient's Authorized Hotel Supplies Salesperson. As applicable, any other physician, advance practice provider, medical student, or other health professional student that will be observing or involved in the sensitive examination for educational or training purposes was discussed with the Patient or Authorized Hotel Supplies Salesperson. The Patient or Authorized Hotel Supplies Salesperson has agreed to proceed with the sensitive examination. (Sensitive examination includes inspection and/or palpation of the breasts, pelvis, prostate and anorectal regions). EXAM: BP 134/88 Ht 5' 3 (1.60m) Wt 215 lb (97.5kg) LMP 07/16/2024 BMI 38.09 kg/(m2). GENERAL: pleasant, female in no apparent distress HEENT: Normocephalic, atraumatic, mucus membranes moist, and no lesions NECK: Supple, full range of motion, no adenopathy, and thyroid normal DERMATOLOGY: Normal, without lesions, non-icteric, and non-hirsute BREAST: soft, non-tender, symmetric, no dominant mass, normal nipple-areolar complex, no lymphadenopathy, and no nipple discharge CHEST: Normal inspiratory effort ABDOMEN: soft, non-tender, and no masses PELVIC: external genitalia normal, normal Bartholin's glands, urethra, Friedenswald's glands, no vulvar lesions, no cervical lesions, good vaginal support, physiologic discharge present, normal appearing perineal body and perianal region BIMANUAL: uterus normal size, shape and consistency, no adnexal masses, and non-tender RECTOVAGINAL: deferred. NEURO: alert and oriented x3,exam grossly non-focal EXTREMITIES: normal ASSESSMENT/PLAN: 1) Health maintenance: Pap done with HPV. Mammogram starting age 40. 2) Contraception: tubal sterilization. Contraceptive options reviewed and information provided. 3) STD screening: Declined STD check. 4) Follow up one year or sooner as needed s/p hospitalization w/ elevated LFTs, f/u w/ PCP Desires wt management referal Jaylan Syed MD Allergies As of Date: 07/21/2024 Noted Allergy Reaction DEXTROAMPHETAMINE-AMP HETAMINE 05/24/2024 6 - Diarrhea METFORMIN 07/04/2024 6 - Diarrhea SEASONAL ALLERGIES 07/20/2015 14 - Other: See Comments Date Reviewed: 07/21/2024 Reviewed by: Jaylan Syed MD - Fully Assessed Reason for Visit: Yearly Exam [187] Primary Visit Diagnosis:Encounter for gynecological examination (general) (routine) without abnormal findings [Z01.419] Other Visit Diagnoses:Screening for cervical cancer [Z12.4] Encounter for screening for human papillomavir (more content not included)... Normal [facility] HIGH RISK HUMAN PAPILLOMA ANGEL (HPV), PCR FOR DETECTION AND GENOTYPINGon 07-21-2024 HPV 16 Ag Ql (Unsp spec) Not detected Normal Not detected [facility] Comment on above: Order Comment: Speci men Type: FLUID SPECIMENOrdering Facility: [facility] Address: [address] [place] [address] Performed By: #### H PVHRT ####[facility] LABCLIA [id number] [place] [address] [place] HPV 18 Ag Ql (Unsp spec) Not detected Normal Not detected [facility] Comment on above: Order Comment: Speci men Type: FLUID SPECIMENOrdering Facility: [facility] Address: [address] [place] [address] Performed By: #### H PVHRT ####[facility] LABIA [id number] [place] [address] [place] HPV 31+33+35+39+45+51+52+56+58+ 59+66+68 DNA DAVID+probe Ql (Cvx) Not detected Normal Not detected [facility] Comment on above: Order Comment: Speci men Type: FLUID SPECIMENOrdering Facility: [facility] Address: [address] [place] [address] Result Comment: High Risk HPV Other Type includes HPV types 31, 33, 35, 39, 45, 51, 52, 56, 58, 59, 66 and 68. Performed By: #### H PVHRT ####[facility] LABCLIA [id number] [place] [address] [place] PAP TESTon 07-21-2024 ADEQUACY Normal [facility] Comment on above: Order Comment: Speci men Type: FLUID SPECIMENOrdering Facility: [facility] Address: [address] [place] [address] Result Comment: Sati sfactory for interpretation. Transformation zone present Performed By: #### L [id number] ####[facility] LABCLIA [id number] [address] [address] [place] CASE REPORT Normal [facility] Comment on above: Order Comment: Speci men Type: FLUID SPECIMENOrdering Facility: [facility] Address: [address] [place] [address] Result Comment: Gyne cologic Cytology Report Case: [id number] Authorizing Provider: Jaylan Syed MD Collected: 07/21/2024 04:42 PM Ordering Location: OB/Gynecology Received: 07/22/2024 11:56 AM First Screen: Heard, [place], [place], ASCP Specimen: Pap Test, ThinPrep, Cervix Performed By: #### L [id number] ####[facility] LABCLIA [id number] [address] [address] [place] CLINICAL HISTORY, CYTOLOGY, GRAY MIXING OPERATOR Routine Exam Normal [facility] Comment on above: Order Comment: Speci men Type: FLUID SPECIMENOrdering Facility: [facility] Address: [address] [place] [address] Performed By: #### L [id number] ####[facility] LABCLIA [id number] [address] [address] [place] FINAL PERFORMING LAB Normal [facility] Comment on above: Order Comment: Speci men Type: FLUID SPECIMENOrdering Facility: [facility] Address: [address] [place] [address] Result Comment: Tech nical component, director business systems screening performed at: [facility], [address] [place] [address] [place] [address] CLIA: [id number] Diagnostic interpretation performed at: [facility], [address] [place] [address] [place] [address] CLIA# [id number] Ribbon Winder: Santo Rudd MD Performed By: #### L [id number] ####[facility] LABCLIA [id number] [address] [address] [place] INTERPRETATION, CYTOLOGY, GRAY MIXING OPERATOR Normal [facility] Comment on above: Order Comment: Speci men Type: FLUID SPECIMENOrdering Facility: [facility] Address: [address] [place] [address] Result Comment: Nega tive for intraepithelial lesion or malignancy. at 1358 EDT Performed By: #### L [id number] ####[facility] LABCLIA [id number] [address] [place] LMP 07/16/2024 Normal [facility] Comment on above: Order Comment: Speci men Type: FLUID SPECIMENOrdering Facility: [facility] Address: [address] [place] [address] Performed By: #### L [id number] ####[facility] LABCLIA [id number] [place] [id number] [place] PAP DISCLAIMER COMMENT The Pap Smear is a screening test for cervical cancer. False negative results occur with all screening tests, emphasizing the need for rescreening at recommended intervals, and clinical correlation. Normal [facility] Comment on above: Order Comment: Speci men Type: FLUID SPECIMENOrdering Facility: [facility] Address: [address] [place] [address] Performed By: #### L [id number] ####[facility] LABCLIA [id number] [address] [address] [place] PAP ASSISTANT ELEMENTARY TEACHER COMMENT This specimen has been analyzed by the FDA-approved Applimation System, which uses digital imaging and an enhanced artificial intelligence image analysis algorithm to identify lux of interest on the microscopic slide, to assist the international account representative and pathologist in evaluating cells on ThinPrep Pap tests. Following analysis, lux of interest on the microscopic slide selected by the algorithm are reviewed by a international account representative. If a sample requires hierarchical review, the pathologist will review the same lux of interest selected by the algorithm prior to final interpretation. Normal [facility] Comment on above: Order Comment: Speci men Type: FLUID SPECIMENOrdering Facility: [facility] Address: [address] [place] [address] Performed By: #### L [id number] ####[facility] LABCLIA [id number] [place] [address] [place] Bilirubin directOrdered By: Tristen Harrison on 07-12-2024 Bilirubin.direct [Mass/Vol] 0.10 mg/dL 0.00-0.[address] [facility] Bilirubin, totalOrdered By: Tristen Harrison on 07-12-2024 Bilirubin [Mass/Vol] 0.16 mg/dL 0.00-1.30 [facility] - Chemistry and C hemistry - challengeOrdered By: Tristen Harrison on 07-12-2024 AST [Catalytic activity/Vol] 24 U/L <32 [facility] Liver Profileon 07-12-2024 Albumin [Mass/Vol] 4.5 g/dL Normal 3.5-5.0 [facility] Comment on above: Performed By: #### L 500.3400 #### [facility] [address] [facility] [facility] [place], [place], [id number] ALK PHOS 143 U/L High 35-104 [facility] Comment on above: Performed By: #### L 500.3400 #### [facility] [address] [place], [address] ALT [Catalytic activity/Vol] 113 U/L High <=34 [facility] Comment on above: Performed By: #### L 500.3400 #### [facility] [address] [facility] [place], [address] AST [Catalytic activity/Vol] 24 U/L Normal <=31 [facility] Comment on above: Performed By: #### L 500.3400 #### [facility] [address] [place], [address] Bilirubin [Mass/Vol] 0.16 mg/dL Normal 0.00-1.30 [facility] Comment on above: Performed By: #### L 500.3400 #### [facility] [address] [place], [address] Bilirubin.direct [Mass/Vol] 0.10 mg/dL Normal 0.00-0.[address] [facility] Comment on above: Performed By: #### L 500.3400 #### [facility] [address] [place], [address] Globulin (S) [Mass/Vol] 3.0 g/dL Normal 2.2-4.2 [facility] Comment on above: Performed By: #### L 500.3400 #### [facility] [address] [place], [address] T PROT 7.5 g/dL Normal 5.9-8.4 [facility] Comment on above: Performed By: #### L 500.3400 #### [facility] [address] [place], [address] Serum globulin measurementOr dered By: Tristen Harrison on 07-12-2024 Globulin (S) [Mass/Vol] 3.0 g/dL 2.2-4.2 [facility] Serum or plasma alanine wilde otransferase (ALT) measurementOrdered By: Tristen Harrison on 07-12-2024 ALT [Catalytic activity/Vol] 113 U/L High <35 [facility] Serum or plasma albumin brian urement (mass/volume)Ordered By: Tristen Harrison on 07-12-2024 Albumin [Mass/Vol] 4.5 g/dL 3.5-5.0 [facility] Serum or plasma alkaline eduardo sphatase measurementOrdered By: Tristen Harrison on 07-12-2024 ALP [Catalytic activity/Vol] 143 U/L High 35-104 [facility] Total proteinOrdered By: Jerilyn Harrison on 07-12-2024 Protein [Mass/Vol] 7.5 g/dL 5.9-8.4 [facility] ANCAon 07-09-2024 Atypical pANCA <1:20 Normal Neg:<1:20 [facility] Comment on above: Result Comment: The atypical pANCA pattern has been observed in a significant percentage of patients with ulcerative colitis, primary sclerosing cholangitis and autoimmune hepatitis. Performed By: #### L 500.3400 #### [facility] [address] [place], [address] Cytoplasmic Ab <1:20 Normal Neg:<1:20 [facility] Comment on above: Performed By: #### L 500.3400 #### [facility] [address] [place], [address] Perinuclear Ab. <1:20 Normal Neg:<1:20 [facility] Comment on above: Result Comment: The presence of positive fluorescence exhibiting P-ANCA or C-ANCA patterns alone is not specific for the diagnosis of Salbador's Granulomatosis (WG) or microscopic polyangiitis. Decisions about treatment should not be based solely on ANCA IFA results. The International ANCA Group Consensus recommends follow up testing of positive sera with both SD- 3 and MPO-ANCA enzyme immunoassays. As many as 5% serum samples are positive only by EIA. Ref. AM J Clin Pathol 1999;111:507-513. Performed By: #### L 500.3400 #### [facility] [address] [place], [place], [address] CMV Acute Antibody IgMon CMV Ab, IgM < 30.0 Normal 0.0-29.9 [facility] Comment on above: Result Comment: Nega tive <30.0 Equivocal 30.0 - 34.9 Positive >34.9 A positive result is generally indicative of acute infection, reactivation or persistent IgM production. Performed at: [facility] [id number] Network Consultant: Brett Jasso PhD, Phone: [phone] Performed at: [facility] [address] [id number] Network Consultant: Renée Centeno MD, Phone: [phone] Performed By: #### L 500.3400 #### [facility] [address] [place], [place], [id number] Celiac AB,Comprehensiveon IMMUNOGLOB A QN TNP Normal [facility] Comment on above: Performed By: #### L 500.3400 #### [facility] [address] [place], [place], [id number] EBV Acute Prof IgG / IgMon 0 07-09-2024 EB Ab VCA, IgG 599.0 U/mL High 0.0-17.9 [facility] Comment on above: Result Comment: Nega tive <18.0 Equivocal 18.0 - 21.9 Positive >21.9 Performed By: #### L 500.3400 #### [facility] [address] [place], [place], [id number] EBV Ab VCA, IgM < 36.0 Normal 0.0-35.9 [facility] Comment on above: Result Comment: Nega tive <36.0 Equivocal 36.0 - 43.9 Positive >43.9 Performed By: #### L 500.3400 #### [facility] [address] [place], [place], [address] EBV NuAg Ab,IgG 564.0 U/mL High 0.0-17.9 [facility] Comment on above: Result Comment: Nega tive <18.0 Equivocal 18.0 - 21.9 Positive >21.9 Performed By: #### L 500.3400 #### [facility] [address] [place], [place], [address] INTERPRETATION Comment Normal . [facility] Comment on above: Result Comment: EBV Interpretation Chart Cisse: Antibody Present + Antibody Absent - Interpretation VCA-IgM VCA-IgG EBNA-IgG No previous infection/ - - - Susceptible Primary infection (new + + - or recent) Past Infection +or- + + See comment below* + - - *Results indicate infection with EBV at some time however cannot predict the timing of the infection since antibodies to EBNA usually develop after primary infection or, alternatively, approximately 5-10% of patients with EBV never develop antibodies to EBNA. Performed By: #### L 500.3400 #### [facility] [address] [place], [address] Hepatitis Panel Acuteon 05-0 HEP B CORE,IgM Negative Normal Negative [facility] Comment on above: Performed By: #### L 500.3400 #### [facility] [address] [place], [place], [facility] HEP B SURF AG Negative Normal Negative [facility] Comment on above: Performed By: #### L 500.3400 #### [facility] [address] [place], [place], [facility] HEP C VIRUS AB Non-Reactive Normal Non Reactive [facility] Comment on above: Performed By: #### L 500.3400 #### [facility] [address] [place], [address] HEPATITIS A-IgM Negative Normal Negative [facility] Comment on above: Result Comment: A ne gative anti-HAV IgM result suggests no recent or current HAV infection. Performed By: #### L 500.3400 #### [facility] [address] [place], [address] FABRIZIO + Protein Elect, Serumon 07-09-2024 IMMUNOGLOB G QN TNP Normal [facility] Comment on above: Performed By: #### L 500.3400 #### [facility] [address] [place], [address] IgG Subclasseson 07-09-2024 IgG, SUBCLASS 1 430 mg/dL Normal 248-810 [facility] Comment on above: Performed By: #### L 500.3400 #### [facility] [address] [place], [address] IgG, SUBCLASS 2 178 mg/dL Normal 130-555 [facility] Comment on above: Performed By: #### L 500.3400 #### [facility] [address] [place], [address] IgG, SUBCLASS 3 56 mg/dL Normal 15-102 [facility] Comment on above: Performed By: #### L 500.3400 #### [facility] [address] [place], [address] IgG, SUBCLASS 4 7 mg/dL Normal 2-96 [facility] Comment on above: Performed By: #### L 500.3400 #### [facility] [address] [place], [address] IGG,QUANT 787 mg/dL Normal 586-1602 [facility] Comment on above: Performed By: #### L 500.3400 #### [facility] [address] [place], [address] Immunoglobulins G/A/M/Cristopher IMMUNOGLOB E QN 5 IU/mL Low 6-495 [facility] Comment on above: Performed By: #### L 500.3400 #### [facility] [address] [place], [address] L2100.0000on 07-09-2024 ACCA 24 units Normal 0-90 [facility] Comment on above: Result Comment: Nega tive: <80 Equivocal: 80-90 Positive: >90 Performed By: #### L 500.3400 #### [facility] [address] [place], [address] ALCA 10 units Normal 0-60 [facility] Comment on above: Result Comment: Nega tive:<55 Equivocal: 55-60 Positive: >60 Performed By: #### L 500.3400 #### [facility] [address] [place], [address] AMCA 18 units Normal 0-100 [facility] Comment on above: Result Comment: Nega tive: <90 Equivocal: 90-100 Positive: >100 This test was developed and its performance characteristics determined by [facility]. It has not been cleared or approved by the Food and Drug Administration. The FDA has determined that such clearance or approval is not necessary. Performed By: #### L 500.3400 #### [facility] [facility] [address] [place], [address] Atypical pANCA Negative Normal Negative [facility] Comment on above: Performed By: #### L 500.3400 #### [facility] [address] [place], [address] COMMENT Comment Normal . [facility] Comment on above: Result Comment: Mandy sarah is not suggestive of Inflammatory Bowel Disease Performed By: #### L 500.3400 #### [facility] [address] [place], [address] Result Comment: Not infected with HCV unless early or acute infection is suspected (which may be delayed in an immunocompromised individual), or other evidence exists to indicate HCV infection. Jesika 12 units Normal 0-50 [facility] Comment on above: Result Comment: Nega tive: <45 Equivocal: 45-50 Positive: >50 Performed By: #### L 500.3400 #### [facility] [address] [place], [address] Liver Profileon 07-07-2024 ALB Normal 3.5-5.0 [facility] Comment on above: Result Comment: Canc elled via OM: Order cancelled - Patient discharged Performed By: #### L 500.3400 #### [facility] [address] [place], [address] ALK PHOS Normal 35-104 [facility] Comment on above: Result Comment: Canc elled via OM: Order cancelled - Patient discharged Performed By: #### L 500.3400 #### [facility] [address] [place], [address] ALT Normal <=34 [facility] Comment on above: Result Comment: Canc elled via OM: Order cancelled - Patient discharged Performed By: #### L 500.3400 #### [facility] [address] [place], [address] AST Normal <=31 [facility] Comment on above: Result Comment: Canc elled via OM: Order cancelled - Patient discharged Performed By: #### L 500.3400 #### [facility] [address] [place], [address] D BILI Normal 0.00-0.30 [facility] Comment on above: Result Comment: Canc elled via OM: Order cancelled - Patient discharged Performed By: #### L 500.3400 #### [facility] [address] [place], [address] T BILI Normal 0.00-1.30 [facility] Comment on above: Result Comment: Canc elled via OM: Order cancelled - Patient discharged Performed By: #### L 500.3400 #### [facility] [address] [place], [address] T PROT Normal 5.9-8.4 [facility] Comment on above: Result Comment: Canc elled via OM: Order cancelled - Patient discharged Performed By: #### L 500.3400 #### [facility] [address] [place], [address] Anti-Mitochondrial ABon 04-2 ANTIMITOCHON AB <20.0 Normal 0.0-20.0 [facility] Comment on above: Result Comment: Nega tive 0.0 - 20.0 Equivocal 20.1 - 24.9 Positive >24.9 Mitochondrial (M2) Antibodies are found in 90-96% of patients with primary biliary cirrhosis. Performed at: [address] [id number] Network Consultant: Brett Jasso PhD, Phone: [phone] Performed By: #### L 803.2200, L800.1280 #### [facility] [address] [place], [address] Anti-Smooth Muscle ABSon ANTISMOOTH MUSC 11 Units Normal 0-19 [facility] Comment on above: Result Comment: Nega tive 0 - 19 Weak positive 20 - 30 Moderate to strong positive >30 Actin Antibodies are found in 52-85% of patients with autoimmune hepatitis or chronic active hepatitis and in 22% of patients with primary biliary cirrhosis. Performed at: [address] [id number] Network Consultant: Brett Jasso PhD, Phone: [phone] Performed By: #### L 8032200, L800.1280 #### [facility] [address] [place] [id number] L501.5101on 07-06-2024 GGTP 213 IU/L Abnormal 0-60 [facility] Comment on above: Result Comment: Perf ormed at: [address] [id number] Network Consultant: Brett Jasso PhD, Phone: [phone] Performed By: #### L 501.5105 #### [facility] [address] [place] [id number] Liver Profileon 07-06-2024 ALB Normal 3.5-5.0 [facility] Comment on above: Result Comment: Canc elled via OM: Order cancelled - Patient discharged Performed By: #### L 582.3320 #### [facility] [address] [place], [place], [id number] ALK PHOS Normal 35-104 [facility] Comment on above: Result Comment: Canc elled via OM: Order cancelled - Patient discharged Performed By: #### L 500.3400 #### [facility] [address] [place], [address] ALT Normal <=34 [facility] Comment on above: Result Comment: Canc elled via OM: Order cancelled - Patient discharged Performed By: #### L 500.3400 #### [facility] [address] [place], [address] AST Normal <=31 [facility] Comment on above: Result Comment: Canc elled via OM: Order cancelled - Patient discharged Performed By: #### L 500.3400 #### [facility] [address] [place], [address] D BILI Normal 0.00-0.30 [facility] Comment on above: Result Comment: Canc elled via OM: Order cancelled - Patient discharged Performed By: #### L 500.3400 #### [facility] [address] [place], [address] T BILI Normal 0.00-1.30 [facility] Comment on above: Result Comment: Canc elled via OM: Order cancelled - Patient discharged Performed By: #### L 500.3400 #### [facility] [address] [place], [address] T PROT Normal 5.9-8.4 [facility] Comment on above: Result Comment: Canc elled via OM: Order cancelled - Patient discharged Performed By: #### L 500.3400 #### [facility] [address] [place], [address] Abdomen/Pelvis W IV Cont ONL Yon 07-05-2024 Abdomen/Pelvis W IV Cont ONLY [facility] Services [address] [place] [address] Abdomen/Pelvis W IV Cont ONLY MR#: [id number] Acct: [id number] Name: RUDYLIUDMILA MARQUIS Rep #: [id number] : 1985 F 38 From: Bernard Souza MD PCP: Dr. Mena Vernon MD Status: ADM IN Study: Abdomen/Pelvis W IV Cont ONLY Date of Exam: Exam# [id number] Ordering Dr: Sergio Mcfarland DO PROCEDURE: ABDOMEN/PELVIS W IV CONT ONLY 07/05/2024 REASON FOR EXAM: ELEVATED LFT'S TECHNIQUE: Abdomen and pelvis CT with intravenous contrast. Coronal and Sagittal reconstruction series were provided. PATIENT PREPARATION: Per protocol ORAL CONTRAST TYPE: None. CONTRAST: 98 cc Isovue-300 IV One or more dose reduction techniques were used (e.g., Automated exposure control, adjustment of the mA and/or kV according to patient size, use of iterative reconstruction technique. RADIATION DOSE SUMMARY: CTDlvol: 23.90 mGy DLP: 1237.80 mGycm COMPARISON: None available FINDINGS: Bibasilar atelectasis. The liver, adrenal glands, kidneys, pancreas and spleen appear within limits. Nondistended gallbladder with appearance of edema, gallbladder fossa fluid for example coronal 49 concerning for possible cholecystitis, clinically correlate. No evidence of biliary ductal dilation. Abdominal aorta appears within limits. No adenopathy. No bowel dilation or free air. Normal caliber appendix without secondary signs. The ovaries, uterus and bladder appear within limits. 2 cm follicle left ovary. Small amount of left lower quadrant and pelvic free fluid. The visualized osseous structures appear within limits. CT/Abdomen/Pelvis W IV Cont ONLY IMPRESSION: Nondistended gallbladder with appearance of edema, gallbladder fossa fluid for example coronal 49 concerning for possible cholecystitis, clinically correlate. No evidence of biliary ductal dilation. Small amount of left lower quadrant and pelvic free fluid. Reading Location: [id number] CC: Dr. Mena Vernon MD; Sergio Mcfarland DO Formula Clerk: Signed Normal [facility] Absolute lymphocyte countOrd ered By: Juan Hdez on 07-05-2024 Lymphocytes Auto (Unsp spec) [#/Vol] 1.15 10*3/uL 0.83-4.51 [facility] Absolute neutrophil countOrd ered By: Juan Hdez on 07-05-2024 Neutrophils (Bld) [#/Vol] 2.8 10*3/uL 2.0-7.7 [facility] Albumin Elph [Mass/Vol]Order ed By: Sergio Mcfarland on 07-05-2024 Albumin [Mass/Vol] 3.6 g/dL 2.9-4.4 [facility] Anion gap in Serum or Plasma Ordered By: Juan Hdez on 07-05-2024 Anion gap [Moles/Vol] 8 mmol/L 5-15 [facility] Automated lymphocyte count a s percentage of total leukocytesOrdered By: Juan Hdez on 07-05-2024 Lymphocytes/100 WBC Auto (Unsp spec) 25.2 % 19-41 [facility] BUN/creatinine ratioOrdered By: Juan Hdez on 07-05-2024 Urea nitrogen/Creatinine [Mass ratio] 7.2 mg/mg Low 10-20 [facility] Basic Metabolic Profile (BMP )on 07-05-2024 BUN/CRE 7.2 RATIO Low 10-20 [facility] Comment on above: Performed By: #### L 500.3400 #### [facility] [address] [place], [address] Calcium [Mass/Vol] 8.3 mg/dL Normal 7.6-11.0 [facility] Comment on above: Performed By: #### L 500.3400 #### [facility] [address] [place], [address] Chloride [Moles/Vol] 107 mmol/L Normal 98-108 [facility] Comment on above: Performed By: #### L 500.3400 #### [facility] [address] [place], [address] CO2 [Moles/Vol] 25.2 mmol/L Normal 21.0-32.0 [facility] Comment on above: Performed By: #### L 500.3400 #### [facility] [address] [place], [address] Creatinine [Mass/Vol] 0.51 mg/dL Low 0.70-1.20 [facility] Comment on above: Performed By: #### L 500.3400 #### [facility] [address] [place], [address] ECRCL 166.71 ml/min Normal 50-250 [facility] Comment on above: Performed By: #### L 500.3400 #### [facility] [address] [place], [address] GAP 8 Normal 5-15 [facility] Comment on above: Performed By: #### L 500.3400 #### [facility] [address] [place], [address] GFR/1.73 sq M.predicted among non-blacks MDRD (S/P/Bld) [Vol rate/Area] 124 mL/min/{1.73_m2} Normal >60 [facility] Comment on above: Result Comment: mL/m in/1.73m2 CKD-EPI Creatinine Equation (2020) Performed By: #### L 500.3400 #### [facility] [address] [place], [address] Glucose [Mass/Vol] 91 mg/dL Normal 70-99 [facility] Comment on above: Performed By: #### L 500.3400 #### [facility] [address] [place], [address] Potassium [Moles/Vol] 3.8 mmol/L Normal 3.3-5.1 [facility] Comment on above: Performed By: #### L 500.3400 #### [facility] [address] [place], [address] Sodium [Moles/Vol] 140 mmol/L Normal 133-145 [facility] Comment on above: Performed By: #### L 500.3400 #### [facility] [address] [place], [address] Urea nitrogen [Mass/Vol] 4 mg/dL Normal 4-19 [facility] Comment on above: Performed By: #### L 500.3400 #### [facility] [address] [place], [address] Basophil percentageOrdered B y: Juan Hdez on 07-05-2024 Basophils/100 WBC (Bld) 0.9 % 0-1 [facility] Bilirubin directOrdered By: Juan Hdez on 07-05-2024 Bilirubin.direct [Mass/Vol] 0.70 mg/dL High 0.00-0.[address] [facility] Bilirubin, totalOrdered By: Juan Hdez on 07-05-2024 Bilirubin [Mass/Vol] 1.21 mg/dL 0.00-1.30 [facility] CBC W/Diff, Automatedon 06-09 Absolute Lymph 1.15 X10 3/uL Normal 0.83-4.51 [facility] Comment on above: Performed By: #### L 500.3400 #### [facility] [address] [place], [address] Absolute Neut 2.8 X10 3/uL Normal 2.0-7.7 [facility] Comment on above: Performed By: #### L 500.3400 #### [facility] [address] [place], [address] Basophils/100 WBC (Bld) 0.9 % Normal 0-1 [facility] Comment on above: Performed By: #### L 500.3400 #### [facility] [address] [place], [address] Eosinophils/100 WBC (Bld) 3.5 % Normal 0-5 [facility] Comment on above: Performed By: #### L 500.3400 #### [facility] [address] [place], [address] Erythrocyte distribution width (RBC) [Ratio] 16.0 % High 11.6-14.6 [facility] Comment on above: Performed By: #### L 500.3400 #### [facility] [address] [place], [address] Hematocrit (Bld) [Volume fraction] 33.4 % Low 37-47 [facility] Comment on above: Performed By: #### L 500.3400 #### [facility] [address] [place], [address] Hemoglobin (Bld) [Mass/Vol] 10.9 g/dL Low 12.0-15. 0 [facility] Comment on above: Performed By: #### L 500.3400 #### [facility] [address] [place], [address] IG% 0.200 Normal 0.0-0.9 [facility] Comment on above: Result Comment: IG% - Immature Granulocytes (promyelocytes, myelocytes and metamyelocytes) > 1% indicates that a LEFT SHIFT is Present. Performed By: #### L 500.3400 #### [facility] [address] [place], [address] Lymphocytes/100 WBC (Bld) 25.2 % Normal 19-41 [facility] Comment on above: Performed By: #### L 500.3400 #### [facility] [address] [place], [address] MCH (RBC) [Entitic mass] 25.6 pg Low 27.0-32.0 [facility] Comment on above: Performed By: #### L 500.3400 #### [facility] [address] [place], [address] MCHC (RBC) [Mass/Vol] 32.6 g/dL Normal 32-36 [facility] Comment on above: Performed By: #### L 500.3400 #### [facility] [address] [place], [address] MCV (RBC) [Entitic vol] 78.4 fL Low 81-99 [facility] Comment on above: Performed By: #### L 500.3400 #### [facility] [address] [place], [address] Monocytes/100 WBC (Bld) 9.9 % Normal 0-10 [facility] Comment on above: Performed By: #### L 500.3400 #### [facility] [address] [place], [address] Neutrophils/100 WBC (Bld) 60.3 % Normal 47-70 [facility] Comment on above: Performed By: #### L 500.3400 #### [facility] [address] [place], [address] Nucleated RBC (Bld) [#/Vol] 0 10*3/uL Normal 0-5 [facility] Comment on above: Performed By: #### L 500.3400 #### [facility] [address] [place], [address] Platelet mean volume (Bld) [Entitic vol] 10.0 fL Normal 6.2-12.0 [facility] Comment on above: Performed By: #### L 500.3400 #### [facility] [address] [place], [address] Platelets (Bld) [#/Vol] 282 10*3/uL Normal 150-450 [facility] Comment on above: Performed By: #### L 500.3400 #### [facility] [address] [place], [address] RBC (Bld) [#/Vol] 4.26 10*6/uL Normal 4.2-5.4 [facility] Comment on above: Performed By: #### L 500.3400 #### [facility] [address] [place], [address] RDW SD 46.1 fl High 35.1-43.9 [facility] Comment on above: Performed By: #### L 500.3400 #### [facility] [address] [place], [place], [address] WBC (Bld) [#/Vol] 4.6 10*3/uL Normal 4.4-11.0 [facility] Comment on above: Performed By: #### L 500.3400 #### [facility] [address] [place], [address] CRPon 07-05-2024 C-REACTIVE PROT 6.50 mg/L High 0.0-3.0 [facility] Comment on above: Performed By: #### L 500.3400 #### [facility] [address] [place], [place], [id number] CRP [Mass/Vol]Ordered By: Ra nila Mcfarland on 07-05-2024 C-Reactive Protein Extended Range 6.50 mg/L High 0.0-3.0 [facility] Calculated total iron bindin g capacityOrdered By: Sergio Mcfarland on 07-05-2024 Total Iron Binding Capacity 352 ug/dL 250-450 [facility] Carbon dioxide, total [Moles /volume] in Central venous bloodOrdered By: Juan Hdez on 07-05-2024 CO2 [Moles/Vol] 25.2 mmol/L 21.0-32.0 [facility] Chitobioside IgA antibody as sayOrdered By: Sergio Mcfarland on 07-05-2024 Chitobioside IgA IA Qn 24 units 0-90 [facility] Comment on above: Negative: <80 Equivo abelardo: 80-90 Positive: >90 Chloride assayOrdered By: Brian Hdez on 07-05-2024 Chloride [Moles/Vol] 107 mmol/L 98-108 [facility] Consultation - Surgicalon Consultation - Surgical [facility] Medical Records Department [address] [place] [address] Consultation - Surgical 07/05/24 0836 MR#: [id number] Acct: [id number] Name: LIUDMILA WORLEY Rep #: [id number] : 1985 38 From: Veronica Austin MD PCP: Dr. Mena Vernon MD Status:ADM IN Location: [place] [address] Assessment Plan Assessment/Plan (1) Cholelithiasis: (2) Elevated LFTs: PLAN: Plan Will await GI workup to see if due to gallbladder/cholelith iasis vs liver primary etiology. Did briefly discuss cholecystectomy with patient and at this would be more of a primary liver issue cholecystectomy would not help at this point. Did review patient's CAT scan as well as her ultrasound with the patient. Patient does have some small gallstones no wall thickening on ultrasound, no evidence of inflammation on ultrasound. If this is questions on CT however ultrasound is a better modality for this. Discussed with patient that depending on further workup may determine whether or not cholecystectomy is warranted. This may be done as an outpatient procedure according to imaging with no obvious inflammation-if it would be beneficial. Reviewed the anatomy with the patient and discussed the procedure: laparoscopic cholecystectomy with possible cholangiograms, possible open. Review risks including but not limited to bleeding, infection, hernia, bile leak, retained gallstones requiring another procedure ERCP- Endoscopic Retrograde Cholangiopancreatogra phy, injury to another organ (bile ducts, common bile duct, small bowel, etc.) and conversion to an open procedure. All questions were answered. Dr. Magdaleno will be covering tomorrow. Veronica Austin M.D. Pager: [phone] [facility] [address] [place] [address], [facility], [address] [place] [address] Office: [phone] HPI Consult Data Date of Consult: 07/05/24 HPI Narrative HPI Narrative: LIUDMILA WORLEY, is a 38 F who presents due to right upper quadrant/epigastric pain. Patient states that started 2 nights ago about 11 PM patient did not eat prior to this. Patient does not give a history of right upper quadrant pain after eating 30 minutes to an hour. Patient states that it came in waves with start of dull and then increased. Patient states it was a 10 out of 10 when she was in the ER she did get morphine. Patient has had no pain since. Patient denies any nausea and vomiting. Patient previously was seeing Sada in October 2023 and did have elevated LFTs at that time as well with the AST and ALT in the 100s the rest of the liver functions were normal. Patient had an ultrasound of the gallbladder which again showed some gallstones but no signs of cholecystitis. Patient's ultrasound in our ER also showed normal wall at 2.2 mm, normal common bile duct at 4.7 mm, no pericholecystic fluid, small gallstones. The patient's AST and ALT were elevated in the 4-500s with a small elevation of the direct bilirubin 0.4 and normal total bilirubin. This morning the ALT did go up even higher to 726 AST slightly fell and direct went slightly higher to 0.7 alk phos still remained mildly elevated at 191. [facility] Medical History Wears glasses Depression Anxiety Alcohol use Migraine headache Former smoker Hypertension Hx of vaginal delivery ADHD Home Medications ???Medication ???Instructions ???Recorded ???Last Taken ???Type dextroamphetamine-amp hetamine 30 30 mg PO 0800,1200 11/08/21 History mg tablet (Adderall) multivitamin 1 tab PO DAILY 11/08/21 07/03/24 H istory lisinopril 5 mg tablet 5 mg PO DAILY 07/04/24 07/04/24 Hi story Allergy/AdvReac Type Severity Reaction Status Date / Time metformin AdvReac Diarrhea Verified 07/04/24 11:01 Family History no significant family his Surgical History History of tonsillectomy and adenoidectomy Social History household members: spouse Smoking Status: Former smoker substance use type: does not use ROS Constitutional Constitutional: Denies fever(s) Eyes Eyes: Denies change in vision ENT HEENT: Denies dysphagia Cardiovascular Cardiovascular: Denies chest pain Respiratory/Chest Respiratory/Chest: Denies cough Gastrointestinal Gastrointestinal: Reports abdominal pain, nausea and vomiting; Denies diarrhea or hematemesis Genitourinary Genitourinary: Denies dysuria Integumentary Integumentary: Denies rash Neurologic Neurologic: Denies focal weakness Psychiatric Psychiatric: Denies anxiety Hematologic/Lymphatic Hematologic/Lymphatic : Denies easy bleeding Physical Exam Const alert, oriented x3 and no apparent distress HEENT normocepha (more content not included)... Normal [facility] Discharge Instructionon 06-09 Discharge Instruction [facility] Medical Records Department [address] [place] [address] Instructions for Home/Discharge Instructions 07/05/24 1332 MR#: [id number] Acct: [id number] Name: LIUDMILA WORLEY Rep #: [id number] : 1985 38 From: Tristen Harrison DO PCP: Dr. Mena Vernon MD Status:ADM IN Discharge Instructions Diet Discharge Diet: No restrictions DC O2, CPAP, BIPAP needs Home O2 Discharge instructions: No Dressing / Incision Discharge Activity: No Restrictions Follow Up Care Test Results: Test results from this visit will be discussed in further detail at your follow-up appointment, if applicable. Discharge Plan Admission Admit Date/Time: 07/04/24 10:12 Primary Reason for Your Visit: Abdominal pain Attending Provider: Tristen Harrison Primary Care Provider: Mena Vernon Consulting Providers: Veronica Austin; Juan Hdez Instructions Additional Instructions / Restrictions: Please have repeat labs drawn on to check your liver enzymes in 5 to 7 days. Follow-up with Dr. Mcfarland in the office in the next few weeks. Discharge Orders/Prescriptions Prescriptions: Continued multivitamin Tablet 1 tab PO DAILY dextroamphetamine-amp hetamine [Adderall] 30 mg tablet 30 mg PO 0800,1200 lisinopril 5 mg tablet 5 mg PO DAILY Other Ambulatory Orders: Liver Profile (Routine) Timeframe: 5 Days Facility: [facility] - Location: Laboratory Ordered By: Dr. Tristen Harrison Referrals / Follow Up: Mena Vernon MD [Primary Care Provider] - Sergio Mcfarland DO [Med Staff - Active Staff] - Disposition Disposition (needs filled in before D/C Order can be placed): Home, Self Care 07/05/24 6175 Tristen Harrison DO CC: Dr. Mena Vernon MD; Dr. Juan Hdez MD; Dr. Veronica Austin MD Signed Normal [facility] Eosinophil percentageOrdered By: Juan Hdez on 07-05-2024 Eosinophils/100 WBC (Bld) 3.5 % 0-5 [facility] Erythrocyte Sed Rateon 07-05 SED RATE 9 mm/hr Normal 0-30 [facility] Comment on above: Performed By: #### L 101.9900, L3100.3425, L3000.0375, L503.6030, L3410.2350, L3300.1200, L3200.0500, L2100.0000, L3100.5850, L3400.1500, L503.6550, L3200.1100, L501.6710 #### [facility] [address] [place], [address] Erythrocyte distribution wid th (RBC) [Ratio]Ordered By: Juan Hdez on 07-05-2024 Erythrocyte distribution width (RBC) [Entitic vol] 46.1 fL High 35.1-43.9 [facility] Erythrocyte distribution wid th ratioOrdered By: Juan Hdez on 07-05-2024 Erythrocyte distribution width (RBC) [Ratio] 16.0 % High 11.6-14.6 [facility] Erythrocyte distribution wid th standard deviationOrdered By: Juan Hdez on 07-05-2024 Erythrocyte distribution width (RBC) [Ratio] 46.1 fl High 35.1-43.9 [facility] Erythrocyte sedimentation ra teOrdered By: Sergio Mcfarland on 07-05-2024 ESR (Bld) [Velocity] 9 mm/h 0-30 [facility] Estimation of creatinine jermain aranceOrdered By: Juan Hdez on 07-05-2024 Estimated Creatinine Clearance Calc 166.71 ml/min 50-250 [facility] [facility] Ferritin [Mass/Vol] 28 ng/mL Normal 22-378 [facility] Comment on above: Performed By: #### L 101.9900, L3100.3425, L3000.0375, L503.6030, L3410.2350, L3300.1200, L3200.0500, L2100.0000, L3100.5850, L3400.1500, L503.6550, L3200.1100, L501.6710 #### [facility] [address] [place], [place], [id number] Ferritin [Mass/Vol] 23 ng/mL Normal 22-378 [facility] Comment on above: Performed By: #### L 500.3400 #### [facility] [address] [place], [place], [id number] GFR/1.73 sq M.predicted shala g non-blacks MDRD (S/P/Bld) [Vol rate/Area]Ordered By: Juan Hdez on 07-05-2024 Estimated GFR (MDRD) Non-Af Amer [address] >60 [facility] Comment on above: mL/min/1.73m2 CKD-EP I Creatinine Equation (2020) Glomerular filtration rate ( GFR) estimation/1.73 sq m using serum, plasma, or whole bOrdered By: Juan Hdez on 07-05-2024 GFR/1.73 sq M.predicted among non-blacks MDRD (S/P/Bld) [Vol rate/Area] 124 mL/min/{1.73_m2} >60 [facility] Comment on above: mL/min/1.73m2 CKD-EP I Creatinine Equation (2020) Hematocrit Auto (Bld) [Volum e fraction]Ordered By: Juan Hdez on 07-05-2024 Hematocrit (Bld) [Volume fraction] 33.4 % Low 37-47 [facility] Hemoglobin measurementOrdere d By: Juan Hdez on 07-05-2024 Hemoglobin (Bld) [Mass/Vol] 10.9 g/dL Low 12.0-15. 0 [facility] IgEOrdered By: Sergio Beltrán d on 07-05-2024 IgE 5 IU/mL Low 6-495 [facility] Immature granulocytes/100 WB C Auto (Bld)Ordered By: Juan Hdez on 07-05-2024 Immature granulocytes/100 WBC (Bld) 0.200 % 0.0-0.9 [facility] Comment on above: IG% - Immature Granu locytes (promyelocytes, myelocytes and metamyelocytes) > 1% indicates that a LEFT SHIFT is Present. Interpretation of serum or p lasma protein pattern by immunofixation (narrative resultOrdered By: Sergio Mcfarland on 07-05-2024 Protein Fractions Immunofixation Kiran [Interp] Not Observed g/dL Not Observed [facility] Iron (Unsp spec) [Mass/Mass] Ordered By: Sergio Mcfarland on 07-05-2024 Iron [Mass/Vol] 258 ug/dL High 50-170 [facility] Iron measurement (mass/mass) Ordered By: Sergio Mcfarland on 07-05-2024 Iron (Unsp spec) [Mass/Mass] 258 ug/dL High 50-170 [facility] Iron saturation [Mass fracti on]Ordered By: Sergio Mcfarland on 07-05-2024 Iron Saturation 73.3 % High 13-59 [facility] Comment on above: Previous reported re sult: 73.0 %Edited by: BRENNA on 07/05/24:1215 AMENDED REPORT 07/05/24 1215 IRON SATURATION previously reported as: 73.0 H % Iron+Iron Binding Capacityon 07-05-2024 Iron [Mass/Vol] 258 ug/dL High 50-170 [facility] Comment on above: Performed By: #### L 101.9900, L3100.3425, L3000.0375, L503.6030, L3410.2350, L3300.1200, L3200.0500, L2100.0000, L3100.5850, L3400.1500, L503.6550, L3200.1100, L501.6710 #### [facility] [address] [place], [address] UIBC 94 ug/dL Low 228-428 [facility] Comment on above: Performed By: #### L 101.9900, L3100.3425, L3000.0375, L503.6030, L3410.2350, L3300.1200, L3200.0500, L2100.0000, L3100.5850, L3400.1500, L503.6550, L3200.1100, L501.6710 #### [facility] [address] [place], [address] Iron [Mass/Vol] 209 ug/dL High 50-170 [facility] Comment on above: Performed By: #### L 500.3400 #### [facility] [address] [place], [place], [address] IRON SATURATION 66.0 High 13-59 [facility] Comment on above: Performed By: #### L 500.3400 #### [facility] [address] [place], [address] TIBC 316 ug/dL Normal 250-450 [facility] Comment on above: Performed By: #### L 500.3400 #### [facility] [address] [place], [address] UIBC 107 ug/dL Low 228-428 [facility] Comment on above: Performed By: #### L 500.3400 #### [facility] [address] [place], [place], [address] Laboratory - Chemistry and C hemistry - challengeOrdered By: Juan Hdez on 07-05-2024 AST [Catalytic activity/Vol] 442 U/L High <32 [facility] - Miscellaneous t estsOrdered By: Sergio Mcfarland on 07-05-2024 Laboratory comment Kiran (Report) Comment . [facility] Comment on above: Pattern is not sugge stive of Inflammatory Bowel Disease Laminaribioside carbohydrate IgG antibody assayOrdered By: Sergio Mcfarland on 07-05-2024 Laminaribioside IgG IA Qn 10 units 0-60 [facility] Comment on above: Negative:<55 Equivoc al: 55-60 Positive: >60 Liver Profileon 07-05-2024 ALT [Catalytic activity/Vol] 726 U/L High <=34 [facility] Comment on above: Result Comment: AMENDED REPORT 07/05/24 0532 ALT previously reported as: 585 H U/L Performed By: #### L 500.3400 #### [facility] [address] [place], [address] Lymphocytes Auto (Unsp spec) [#/Vol]Ordered By: Juan Hdez on 07-05-2024 Lymphocytes (Bld) [#/Vol] 1.15 10*3/uL 0.83-4.[address] [facility] Lymphocytes/100 WBC Auto (Un sp spec)Ordered By: Juan Hdez on 07-05-2024 Lymphocytes/100 WBC (Bld) 25.2 % 19-41 [facility] MCV (mean corpuscular volume ) determinationOrdered By: Juan Hdez on 07-05-2024 MCV (RBC) [Entitic vol] 78.4 fL Low 81-99 [facility] Mean corpuscular hemoglobin (MCH) determinationOrdered By: Juan Hdez on 07-05-2024 MCH (RBC) [Entitic mass] 25.6 pg Low 27.0-32.0 [facility] Mean corpuscular hemoglobin concentration (MCHC) determinationOrdered By: Juan Hdez on 07-05-2024 MCHC (RBC) [Mass/Vol] 32.6 g/dL 32-36 [facility] Mean platelet volume determi nationOrdered By: Juanjil Hdez on 07-05-2024 Platelet mean volume (Bld) [Entitic vol] 10.0 fL 6.2-12.0 [facility] Monocyte percentageOrdered B y: Juan Hdez on 07-05-2024 Monocytes/100 WBC (Bld) 9.9 % 0-10 [facility] Neutrophil percentageOrdered By: Juancharlotte Hdez on 07-05-2024 Neutrophils/100 WBC (Bld) 60.3 % 47-70 [facility] No Panel InformationOrdered By: Sergio Friend on 07-05-2024 Addendum Document Comment . [facility] Comment on above: Protein electrophore sis scan will follow via computer,mail, or ophthalmic technologist delivery. Hepatitis C Antibody Comment Comment . [facility] Comment on above: Not infected with HC V unless early or acute infection issuspected (which may be delayed in an immunocompromisedindividual), or other evidence exists to indicate HCVinfection. Tissue Transglutaminase IgG Ab 3 U/mL 0-5 [facility] Comment on above: Negative 0 - 5 Weak Positive 6 - 9 Positive >9 Unsaturated Iron Binding Capacity 94 ug/dL Low 228-428 [facility] Nucleated red blood cell per centageOrdered By: Juan Hdez on 07-05-2024 Nucleated RBC/100 WBC (Bld) [Ratio] 0 % 0-5 [facility] Platelet countOrdered By: Brian Hdez on 07-05-2024 Platelets (Bld) [#/Vol] 282 10*3/uL 150-450 [facility] Potassium (Unsp spec) [Mass/ Vol]Ordered By: Juan Hdez on 07-05-2024 Potassium [Moles/Vol] 3.8 mmol/L 3.3-5.1 [facility] Potassium measurement (mass/ volume)Ordered By: Juan Hdez on 07-05-2024 Potassium (Unsp spec) [Mass/Vol] 3.8 mmol/L 3.3-5.1 [facility] ,Urineon 07-05-2024 Beta HCG ( test) Ql (U) Negative Normal [facility] Comment on above: Order Comment: Result Comment: Very dilute urine specimens, as indicated by a low specific gravity, may not contain sales representative raw fibers levels of hCG. If is still suspected, a first morning urine specimen should be collected 48 hours later and tested. Performed By: #### L 500.3406 #### [facility] [address] [place], [address] RBC Auto (Bld) [#/Vol]Ordere d By: Juan Hdez on 07-05-2024 RBC (Bld) [#/Vol] 4.26 10*6/uL 4.2-5.4 [facility] Serum Eboni Alcala virus cap harsha IgM antibody assay (units/volume)Ordered By: Sergio Mcfarland on 07-05-2024 EBV capsid IgM Qn (S) [arb'U]/mL 0.0-35.9 [facility] Comment on above: Negative <36.0 Equiv ocal 36.0 - 43.9 Positive >43.9 Serum Eboni Alcala virus nuc lear IgG antibody assay (units/volume)Ordered By: Sergio Mcfarland on 07-05-2024 EBV nuclear IgG Qn (S) 564.0 U/mL High 0.0-17.9 [facility] Comment on above: Negative <18.0 Equiv ocal 18.0 - 21.9 Positive >21.9 Serum IgG subclass 1 measure ment (mass/volume)Ordered By: Sergio Mcfarland on 07-05-2024 IgG subclass 1 (S) [Mass/Vol] 430 mg/dL 248-810 [facility] Serum IgG subclass 2 measure ment (mass/volume)Ordered By: Sergio Mcfarland on 07-05-2024 IgG subclass 2 (S) [Mass/Vol] 178 mg/dL 130-555 [facility] Serum IgG subclass 3 measure ment (mass/volume)Ordered By: Sergio Mcfarland on 07-05-2024 IgG subclass 3 (S) [Mass/Vol] 56 mg/dL 15-102 [facility] Serum classic neutrophil cyt oplasmic antibody assay (units/volume)Ordered By: Sergio Mcfarland on 07-05-2024 Neutrophil cytoplasmic Ab.classic Qn (S) <1:20 titer Neg:<1:20 [facility] Serum creatinine measurement (mass/volume)Ordered By: Juan Hdez on 07-05-2024 Creatinine [Mass/Vol] 0.51 mg/dL Low 0.70-1.20 [facility] Serum globulin measurementOr dered By: Juan Hdez on 07-05-2024 Globulin (S) [Mass/Vol] 2.5 g/dL 2.2-4.2 [facility] Serum globulin measurement ( mass/volume)Ordered By: Sergio Mcfarland on 07-05-2024 Globulin (S) [Mass/Vol] 2.5 g/dL 2.2-3.9 [facility] Serum glucose measurement (m ass/volume)Ordered By: Juan Hdez on 07-05-2024 Glucose [Mass/Vol] 91 mg/dL 70-99 [facility] Serum mitochondria antibody detectionOrdered By: Sergio Mcfarland on 07-05-2024 Mitochondria Ab Ql (S) <20.0 Units 0.0-20.0 [facility] Comment on above: Negative 0.0 - 20.0 Equivocal 20.1 - 24.9 Positive >24.9Mitochondrial (M2) Antibodies are found in 90-96% ofpatients with primary biliary cirrhosis.Performed at: [address] [id number] Director: Brett Jasso PhD, Phone: [phone] Serum or plasma C reactive p rotein measurement (mass/volume)Ordered By: Sergio Mcfarland on 07-05-2024 CRP [Mass/Vol] 6.50 mg/L High 0.0-3.0 [facility] Serum or plasma IgA measurem ent (mass/volume)Ordered By: Sergio Mcfarland on 07-05-2024 IgA [Mass/Vol] 106 mg/dL 87-352 [facility] Serum or plasma IgG measurem ent (mass/volume)Ordered By: Sergio Mcfarland on 07-05-2024 IgG [Mass/Vol] 787 mg/dL 586-1602 [facility] IgG [Mass/Vol] TNP [facility] Comment on above: Test not performed Serum or plasma actin IgG an tibody assay (units/volume)Ordered By: Sergio Mcfarland on 07-05-2024 Actin IgG Qn 11 Units 0-19 [facility] Comment on above: Negative 0 - 19 Weak positive 20 - 30 Moderate to strong positive >30 Actin Antibodies are found in 52-85% of patients with autoimmune hepatitis or chronic active hepatitis and in 22% of patients with primary biliary cirrhosis.Performed at: [facility] [employer] [id number] Director: Brett Jasso PhD, Phone: [phone] Serum or plasma alanine wilde otransferase (ALT) measurementOrdered By: Juan Hdez on 07-05-2024 ALT [Catalytic activity/Vol] 726 U/L High <35 [facility] Comment on above: Previous reported re sult: 585 U/LEdited by: BRENNA on 07/05/24:0532 AMENDED REPORT 07/05/24 0532 ALT previously reported as: 585 H U/L Serum or plasma albumin brian urement (mass/volume)Ordered By: Juan Hdez on 07-05-2024 Albumin [Mass/Vol] 3.6 g/dL 3.5-5.0 [facility] Serum or plasma alkaline eduardo sphatase measurementOrdered By: Juan Hdez on 07-05-2024 ALP [Catalytic activity/Vol] 191 U/L High 35-104 [facility] Serum or plasma alpha 1 glob ulin measurement by electrophoresis (mass/volume)Ordered By: Sergio Mcfarland on 07-05-2024 Alpha 1 globulin Elph [Mass/Vol] 0.2 g/dL 0.0-0.4 [facility] Alpha 1 globulin Elph [Mass/Vol] 0.7 g/dL 0.4-1.0 [facility] Serum or plasma beta globuli n measurement by electrophoresis (mass/volume)Ordered By: Sergio Mcfarland on 07-05-2024 Beta globulin Elph [Mass/Vol] 0.8 g/dL 0.7-1.3 [facility] Serum or plasma calcium brian urement (mass/volume)Ordered By: Juan Hdez on 07-05-2024 Calcium [Mass/Vol] 8.3 mg/dL 7.6-11.0 [facility] Serum or plasma cytomegalovi angel (CMV) IgM antibody assay (units/volume)Ordered By: Sergio Mcfarland on 07-05-2024 CMV IgM Qn < 30.0 AU/mL 0.0-29.9 [facility] Comment on above: Negative <30.0 Equiv ocal 30.0 - 34.9 Positive >34.9A positive result is generally indicative of acuteinfection, reactivation or persistent IgM production.Performed at: [facility] [id number] Director: Brett Jasso PhD, Phone: [phone] at: [facility] [id number] Director: Renée Centeno MD, Phone: [phone] Serum or plasma ferritin kenji surement (mass/volume)Ordered By: Sergio Mcfarland on 07-05-2024 Ferritin [Mass/Vol] 28 ng/mL 22-378 [facility] Serum or plasma gamma globul in measurement by electrophoresis (mass/volume)Ordered By: Sergio Mcfarland on 07-05-2024 Gamma globulin Elph [Mass/Vol] 0.8 g/dL 0.4-1.8 [facility] Serum or plasma hepatitis B virus surface antigen detection by immunoassayOrdered By: Sergio Mcfarland on 07-05-2024 HBV surface Ag IA Ql Negative Negative [facility] Serum or plasma immunoelectr ophoresis interpretation (nominal result)Ordered By: Sergio Mcfarland on 07-05-2024 Interpretation IEP [Interp] Comment . [facility] Comment on above: No monoclonality det ected. Serum or plasma iron saturat ion measurement (mass fraction)Ordered By: Sergio Mcfarland on 07-05-2024 Iron saturation [Mass fraction] 73.3 % High 13-59 [facility] Comment on above: Previous reported re sult: 73.0 %Edited by: AUTOINS on 07/05/24:1215 AMENDED REPORT 07/05/24 1215 IRON SATURATION previously reported as: 73.0 H % Serum or plasma mannobioside IgG antibody assay by immunoassay (units/volume)Ordered By: Sergio Mcfarland on 07-05-2024 Mannobioside IgG IA Qn 18 units 0-100 [facility] Comment on above: Negative: <90 Equivo abelardo: 90-100 Positive: >100 This test was developed and its performance characteristics determined by [facility]. It has not been cleared or approved by the Food and Drug Administration. The FDA has determined that such clearance or approval is not necessary. Serum or plasma protein brian urement (mass/volume)Ordered By: Sergio Mcfarland on 07-05-2024 Protein [Mass/Vol] 6.1 g/dL 6.0-8.5 [facility] Serum or plasma urea nitroge n measurement (mass/volume)Ordered By: Juan Hdez on 07-05-2024 Urea nitrogen [Mass/Vol] 4 mg/dL 4-19 [facility] Serum perinuclear neutrophil cytoplasmic antibody titer by immunofluorescenceOrdered By: Sergio Mcfarland on 07-05-2024 Neutrophil cytoplasmic Ab.perinuclear IF (S) [Titer] <1:20 titer Neg:<1:20 [facility] Comment on above: The presence of posi tive fluorescence exhibiting P-ANCA orC-ANCA patterns alone is not specific for the diagnosis ofWegener's Granulomatosis (WG) or microscopic polyangiitis.Decisions about treatment should not be based solely onANCA IFA results. The International ANCA Group Consensusrecommends follow up testing of positive sera with both SD-3 and MPO-ANCA enzyme immunoassays. As many as 5% serumsamples are positive only by EIA. Ref. AM J Clin Elupud3393;111:507-513. Serum tissue transglutaminas e (tTG) IgA antibody assay (units/volume)Ordered By: Sergio Mcfarland on 07-05-2024 tTG IgA Qn (S) <2 U/mL 0-3 [facility] Comment on above: Negative 0 - 3 Weak Positive 4 - 10 Positive >10 Tissue Transglutaminase (tTG) has been identified as the endomysial antigen. Studies have demonstr- ated that endomysial IgA antibodies have over 99% specificity for gluten sensitive enteropathy. Sodium levelOrdered By: Mami Hdez on 07-05-2024 Sodium [Moles/Vol] 140 mmol/L 133-145 [facility] Total proteinOrdered By: Izabel Hdez on 07-05-2024 Protein [Mass/Vol] 6.2 g/dL 5.9-8.4 [facility] Urine testOrdered By: Helder Geiger on 07-05-2024 HCG ( test) Ql (U) Negative [facility] Comment on above: Very dilute urine sp ecimens, as indicated by a low specificgravity, may not contain sales representative raw fibers levels of hCG. If is still suspected, a first morning urinespecimen should be collected 48 hours later and tested. White blood cell (WBC) count Ordered By: Juan Hdez on 07-05-2024 WBC (Bld) [#/Vol] 4.6 10*3/uL 4.4-11.0 [facility] 12 Lead EKGon 07-04-2024 12 Lead EKG [facility] [address] [place] [address] 12 Lead EKG 07/04/24 0942 MR#: [id number] Acct: [id number] Name: LIUDMILA WORLEY Rep #: [id number] : 1985 38 From: Lizzeth Castro MD Attending Dr: Dr. Tristen Harrison DO Status : DIS IN Ordering Dr: Gavin Alford DO Date: 07/04/24 Location: MO3 Sex: F C Admitted: 07/04/24 Test Reason : GENRAL Blood Pressure : */* mmHG Vent. Rate : 78 BPM Atrial Rate : 78 BPM P-R Int : 160 ms QRS Dur : 102 ms QT Int : 382 ms P-R-T Axes : 42 66 27 degrees QTcB Int : 435 ms Normal sinus rhythm Normal ECG Confirmed by ELADIO CASTAÑEDA, JOSH ([id number]), map editor VERNELL MONTILLA ([id number]) on 07/07/2024 11:52:56 AM Referred By: Confirmed By: JOSH CASTRO MD 07/07/24 1152 Date Lizzeth Castro MD CC: Dr. Tristen Harrison DO; Dr. Mena Vernon MD; Dr. Gavin Alford DO Signed Normal [facility] Absolute neutrophil countOrd ered By: Harshil Sanches on 07-04-2024 Neutrophils (Bld) [#/Vol] 6.0 10*3/uL 2.0-7.7 [facility] Activated partial thrombopla stin time (aPTT) in platelet poor plasma by coagulation aOrdered By: Gavin Alford on 07-04-2024 aPTT Coag (PPP) [Time] 23.9 s Low 24.1-36.2 [facility] Anion gap in Serum or Plasma Ordered By: Harshil Sanches on 07-04-2024 Anion gap [Moles/Vol] 13 mmol/L 5- [facility] BUN/creatinine ratioOrdered By: Harshil Sanches on 07-04-2024 Urea nitrogen/Creatinine [Mass ratio] 15.0 mg/mg 10-20 [facility] Basic Metabolic Profile (BMP )on 07-04-2024 BUN/CRE 15.0 RATIO Normal 10-20 [facility] Comment on above: Performed By: #### L 500.3400 #### [facility] [address] [place], [address] Calcium [Mass/Vol] 9.3 mg/dL Normal 7.6-11.0 [facility] Comment on above: Performed By: #### L 500.3400 #### [facility] [address] [place], [address] Chloride [Moles/Vol] 102 mmol/L Normal 98-108 [facility] Comment on above: Performed By: #### L 500.3400 #### [facility] [address] [place], [address] CO2 [Moles/Vol] 23.0 mmol/L Normal 21.0-32.0 [facility] Comment on above: Performed By: #### L 500.3400 #### [facility] [address] [place], [address] Creatinine [Mass/Vol] 0.56 mg/dL Low 0.70-1.20 [facility] Comment on above: Performed By: #### L 500.3400 #### [facility] [address] [place], [address] ECRCL 152.99 ml/min Normal 50-250 [facility] Comment on above: Performed By: #### L 500.3400 #### [facility] [address] [place], [address] GAP 13 Normal 5-15 [facility] Comment on above: Performed By: #### L 500.3400 #### [facility] [address] [place], [address] GFR/1.73 sq M.predicted among non-blacks MDRD (S/P/Bld) [Vol rate/Area] 121 mL/min/{1.73_m2} Normal >60 [facility] Comment on above: Result Comment: mL/m in/1.73m2 CKD-EPI Creatinine Equation (2020) Performed By: #### L 500.3400 #### [facility] [address] [place], [address] Glucose [Mass/Vol] 105 mg/dL High 70-99 [facility] Comment on above: Performed By: #### L 500.3400 #### [facility] [address] [place], [address] Potassium [Moles/Vol] 4.0 mmol/L Normal 3.3-5.1 [facility] Comment on above: Performed By: #### L 500.3400 #### [facility] [address] [place], [address] Sodium [Moles/Vol] 138 mmol/L Normal 133-145 [facility] Comment on above: Performed By: #### L 500.3400 #### [facility] [address] [place], [address] Urea nitrogen [Mass/Vol] 8 mg/dL Normal 4-19 [facility] Comment on above: Performed By: #### L 500.3400 #### [facility] [address] [place], [address] Basophil percentageOrdered B y: Harshil Sanches on 07-04-2024 Basophils/100 WBC (Bld) 0.3 % 0-1 [facility] Bilirubin Test strip Ql (U)O rdered By: Harshil Sanches on 07-04-2024 Bilirubin Ql (U) Negative Negative [facility] Bilirubin directOrdered By: Harshil Sanches on 07-04-2024 Bilirubin.direct [Mass/Vol] 0.54 mg/dL High 0.00-0.[address] [facility] Bilirubin, totalOrdered By: Harshil Sanches on 07-04-2024 Bilirubin [Mass/Vol] 0.80 mg/dL 0.00-1.30 [facility] CBC W/Diff, Automatedon 04-2 Absolute Lymph 0.96 X10 3/uL Normal 0.83-4.51 [facility] Comment on above: Performed By: #### L 500.3400 #### [facility] [address] [place], [address] Absolute Neut 6.0 X10 3/uL Normal 2.0-7.7 [facility] Comment on above: Performed By: #### L 500.3400 #### [facility] [address] [place], [address] Basophils/100 WBC (Bld) 0.3 % Normal 0-1 [facility] Comment on above: Performed By: #### L 500.3400 #### [facility] [address] [place], [address] Eosinophils/100 WBC (Bld) 0.4 % Normal 0-5 [facility] Comment on above: Performed By: #### L 500.3400 #### [facility] [address] [place], [address] Erythrocyte distribution width (RBC) [Ratio] 15.9 % High 11.6-14.6 [facility] Comment on above: Performed By: #### L 500.3400 #### [facility] [address] [place], [address] Hematocrit (Bld) [Volume fraction] 36.0 % Low 37-47 [facility] Comment on above: Performed By: #### L 500.3400 #### [facility] [address] [place], [address] Hemoglobin (Bld) [Mass/Vol] 11.9 g/dL Low 12.0-15. 0 [facility] Comment on above: Performed By: #### L 500.3400 #### [facility] [address] [place], [address] IG% 0.400 Normal 0.0-0.9 [facility] Comment on above: Result Comment: IG% - Immature Granulocytes (promyelocytes, myelocytes and metamyelocytes) > 1% indicates that a LEFT SHIFT is Present. Performed By: #### L 500.3400 #### [facility] [address] [place], [address] Lymphocytes/100 WBC (Bld) 12.7 % Low 19-41 [facility] Comment on above: Performed By: #### L 500.3400 #### [facility] [address] [facility] [place], [address] MCH (RBC) [Entitic mass] 25.6 pg Low 27.0-32.0 [facility] Comment on above: Performed By: #### L 500.3400 #### [facility] [place], [address] MCHC (RBC) [Mass/Vol] 33.1 g/dL Normal 32-36 [facility] Comment on above: Performed By: #### L 500.3400 #### [facility] [address] [facility] [place] [facility] [place], [address] MCV (RBC) [Entitic vol] 77.4 fL Low 81-99 [facility] Comment on above: Performed By: #### L 500.3400 #### [facility] [address] [place], [address] Monocytes/100 WBC (Bld) 6.9 % Normal 0-10 [facility] Comment on above: Performed By: #### L 500.3400 #### [facility] [address] [place], [address] Neutrophils/100 WBC (Bld) 79.3 % High 47-70 [facility] Comment on above: Performed By: #### L 500.3400 #### [facility] [address] [place], [address] Nucleated RBC (Bld) [#/Vol] 0 10*3/uL Normal 0-5 [facility] Comment on above: Performed By: #### L 500.3400 #### [facility] [address] [place], [address] Platelet mean volume (Bld) [Entitic vol] 10.0 fL Normal 6.2-12.0 [facility] Comment on above: Performed By: #### L 500.3400 #### [facility] [address] [place], [address] Platelets (Bld) [#/Vol] 312 10*3/uL Normal 150-450 [facility] Comment on above: Performed By: #### L 500.3400 #### [facility] [address] [place], [address] RBC (Bld) [#/Vol] 4.65 10*6/uL Normal 4.2-5.4 [facility] Comment on above: Performed By: #### L 500.3400 #### [facility] [address] [place], [address] RDW SD 44.5 fl High 35.1-43.9 [facility] Comment on above: Performed By: #### L 500.3400 #### [facility] [address] [place], [address] WBC (Bld) [#/Vol] 7.6 10*3/uL Normal 4.4-11.0 [facility] Comment on above: Performed By: #### L 500.3400 #### [facility] [address] [place], [address] Carbon dioxide, total [Moles /volume] in Central venous bloodOrdered By: Harshil Sanches on 07-04-2024 CO2 [Moles/Vol] 23.0 mmol/L 21.0-32.0 [facility] Chest 1 View (Portable)on Chest 1 View (Portable) [facility] Imaging Services [address] [place] [address] Chest 1 View (Portable) MR#: [id number] Acct: [id number] Name: LIUDMILA WORLEY Rep #: [id number] : 1985 F 38 From: Alon sylvester MD PCP: Dr. Mena Vernon MD Status: REG ER Study: Chest 1 View (Portable) Date of Exam: 07/04/24 Exam# [id number] Ordering Dr: Gavin Alford DO PROCEDURE: CHEST 1 VIEW (PORTABLE) 07/04/2024 REASON FOR EXAM: PREOP TECHNIQUE: Frontal view of the chest. COMPARISON: None FINDINGS: Hardware: None Heart: Cardiac and mediastinal contours are stable. Lungs: The lungs are clear. Bones: The bones are unremarkable. Other: RAD/Chest 1 View (Portable) IMPRESSION: No Acute Findings. Reading [facility] CC: Dr. Mena Vernon MD; Dr. Gavin Alford DO Formula Clerk: Signed Normal [facility] Chloride assayOrdered By: Nancy Sanches on 07-04-2024 Chloride [Moles/Vol] 102 mmol/L 98-108 [facility] Emergency Department Summary on 07-04-[address] [facility] Medical Records Department [address] [place] [address] Emergency Department Summary 07/04/24 MR#: [id number] Acct: [id number] Name: LIUDMILA WORLEY Rep #: [id number] : 1985 38 From: Harshil Sanches DO PCP: Dr. Mena Vernon MD Status:ADM [place] [facility] [id number] Gavin Alford DO on 07/04/24 at 1044 Preop EKG: Sinus rate of 78, no ST changes. QTc 435. 1 view chest x-ray: No acute process. I spoke with Dr. Hdez for admission. 07/04/24 1044 Cosigner Signature (if applicable): cc: Dr. Mena Vernon MD * Signed ADDENDUM by Dr. Gavin Alford DO on 07/04/24 at 0929 Patient signed out to me pending laboratory studies and repeat ultrasound. Labs white count 7.6, lipase normal liver enzymes elevated AST 594 ALT 352 direct bili 0.54. Gallbladder ultrasound multiple gallstones normal common bile duct. Pain is controlled at this time she reports her last initial flare October of last year diagnosed at [place]. She is told to follow-up with her PCP she has not had any issues until yesterday evening she ate nodule cheese for lunch nothing for dinner. I spoke with on-call surgeon Dr. Austin, reviewed her imagings and labs along with labs from [place]. Reported her AST was 100 at that time. She notes gallstones and normal common bile duct however she recommended starting her on Zosyn admission to medicine to get GI involved for possible need for ERCP first before her cholecystectomy. I will speak with hospitalist service. 07/04/24 0929 Cosigner Signature (if applicable): cc: Dr. Mena Vernon MD * Signed HPI History of Present Illness Chief Complaint: Abd Pain [facility] Medical History ADHD Alcohol use Anxiety Depression Former smoker Hx of vaginal delivery Hypertension Migraine headache Wears glasses Home Medications ???Medication ???Instructions ???Recorded ???Last Taken ???Type dextroamphetamine-amp hetamine 30 30 mg PO BID 11/08/21 Unknown Hist ory mg tablet (Adderall) multivitamin 1 tab PO DAILY 11/08/21 Unknown Hi story ibuprofen 600 mg tablet 600 mg PO Q6H PRN Pain 10 days #30 11/09/21 Unknown Rx TABLETS doxycycline monohydrate 100 mg 100 mg PO BID #10 CAPSULES 3 Unknown Rx capsule benzonatate 100 mg capsule 200 mg PO TID PRN PRN cough Unknown History dextroamphetamine-amp hetamine 30 30 mg PO BID 07/04/24 Unknown Hist ory mg tablet (Adderall) lisinopril 5 mg tablet 5 mg PO DAILY 07/04/24 Unknown His tory Allergy/AdvReac Type Severity Reaction Status Date / Time No Known Allergies Allergy Verified 11/05/23 16:00 Family History no significant family his Surgical History History of tonsillectomy and adenoidectomy Social History household members: spouse Smoking Status: Former smoker substance use type: does not use EXAM Physical Exam Const Vital Signs: 07/04/24 06:20 07/04/24 06:47 Temperature 97.5 F L Temperature Source Oral Pulse Rate 85 85 Respiratory Rate 18 20 H Blood Pressure 153/102 H 136/83 H Blood Pressure Mean 119 100 Pulse Ox 100 100 Oxygen Delivery Method Room Air Room Air MDM MDM MDM Narrative Medical decision making narrative: HISTORY OF PRESENT ILLNESS: Chief complaint: Abdominal pain 38-year-old female presents with right upper quad abdominal pain. Notes pain is worse with food. Notes she thinks is her gallbladder. States she had an ultrasound done in October 2023 showed gallstones. States has not followed with general surgery. States she only follows with primary doctor. Denies fevers. Denies chest pain. Denies shortness of breath. Denies trouble urinating. Denies melena hematochezia. Notes history of a tubal ligation otherwise no abdominal surgical history. REVIEW OF SYSTEMS: Pertinent positives: Abdominal pain Pertinent negatives: PHYSICAL EXAM: Nursing triage notes reviewed, Vital signs reviewed Constitutional: please see mdm HENT: MMM Eyes: Pupils equal round and reactive to light, Extraocular muscles intact Neck: No stridor, no JVD, full neck ROM Lungs: Clear to auscultation, No wheezing or rales. No increased work of breathing, no conversational dyspnea, no accessory muscle use, no nasal flaring. No respiratory distress noted Heart: Regular rate and rhythm, No murmurs, No rubs and No gallops, 2+ distal pulses (radial, femoral, posterior tibial) in all extremities Abdomen: Soft, right upper quadrant TTP, no positive Sherwood sign but no rigidity, rebound or guarding, no obvious peritoneal signs, no palpable pulsatile abdominal masses, no (more content not included)... Normal [facility] Eosinophil percentageOrdered By: Harshil Sanches on 07-04-2024 Eosinophils/100 WBC (Bld) 0.4 % 0-5 [facility] Epithelial cells.squamous LM Ql (Urine sed)Ordered By: Harshil Sanches on 07-04-2024 Epithelial cells.squamous LM.HPF (Urine sed) [#/Area] 0 /[HPF] 5-[address] [facility] [address] [facility] Erythrocyte distribution wid th (RBC) [Ratio]Ordered By: Harshil Sanches on 07-04-2024 Erythrocyte distribution width (RBC) [Entitic vol] 44.5 fL High 35.1-43.9 [facility] Erythrocyte distribution wid th ratioOrdered By: Harshil Sanches on 07-04-2024 Erythrocyte distribution width (RBC) [Ratio] 15.9 % High 11.6-14.6 [facility] Estimation of creatinine jermain aranceOrdered By: Harshil Sanches on 07-04-2024 Estimated Creatinine Clearance Calc 152.99 ml/min 50-250 [facility] GFR/1.73 sq M.predicted shala g non-blacks MDRD (S/P/Bld) [Vol rate/Area]Ordered By: Harshil Sanches on 07-04-2024 Estimated GFR (MDRD) Non-Af Amer [address] >60 [facility] Comment on above: mL/min/1.73m2 CKD-EP I Creatinine Equation (2020) Gallbladderon 07-04-2024 Gallbladder [facility] Imaging Services [address] [place], [place] [address] Gallbladder MR#: [id number] Acct: [id number] Name: LIUDMILA WORLEY Rep #: [id number] : 1985 F 38 From: Lexus thomas MD PCP: Dr. Mena Vernon MD Status: REG ER Study: Gallbladder Date of Exam: 07/04/24 Exam# [id number] Ordering Dr: Harshil Sanches DO PROCEDURE: GALLBLADDER 07/04/2024 REASON FOR EXAM: RUQ TTP, +SHERWOOD SIGN COMPARISON: None. FINDINGS: Real-time ultrasound images. Unremarkable hepatic echogenicity. The liver measures 15.7 cm. Unremarkable flow in the main portal vein. The liver is normal in size measuring 15.7 cm. Mildly distended gallbladder measuring 7.4 cm. Negative sonographic Sherwood. Multiple gallstones are noted. No evidence of pericholecystic free fluid. Normal gallbladder wall thickness measuring 2.2 mm. Nondilated common bile duct measuring 4.7 mm. Unremarkable visualized pancreas. Unremarkable right kidney measuring 11.6 x 5.8 x 4.5 cm. Normal right renal cortical thickness measuring 1.4 cm. US/Gallbladder IMPRESSION: Cholelithiasis without sonographic evidence of acute cholecystitis. Reading Location: [place] [address] CC: Dr. Mena Vernon MD; Dr. Harshil Sanches DO Formula Clerk: Signed Normal [facility] Gamma glutamyl transferase ( GGT) measurementOrdered By: Juan Hdez on 07-04-2024 Amylase [Catalytic activity/Vol] 213 U/L High 0-60 [facility] Comment on above: Performed at: [place] [id number] Director: Brett Jasso PhD, Phone: [phone] Glucose Ql (U)Ordered By: Nancy Sanches on 07-04-2024 Urine Glucose (UA) Normal mg/dl Normal [facility] H AND P Exam - Hospitaliston 07-04-2024 H&P Exam - Hospitalist [facility] Medical Records Department [address] [place] [address] H P Exam - Hospitalist 07/04/24 1011 MR#: [id number] Acct: [id number] Name: LIUDMILA WORLEY Rep #: [id number] : 1985 38 From: Juan Hdez MD PCP: Dr. Mena Vernon MD Status:ADM IN Location: [facility]3 [id number] HPI - General General Date of Admission: 07/04/24 Date of Service: 07/04/24 Chief Complaint: Right upper quadrant biliary colic HPI Narrative LIUDMILA WORLEY, is a 38 F who came to ER with right upper quadrant colicky pain since 11 AM yesterday. She described her pain as colicky, gripping sensation started last night, waxing and waning till 2 AM and then she fell asleep. She woke up at 5 AM with pain that brought her to ED. She has mild nausea but denies vomiting. No fever but felt cold sweats. She had similar but less severe right upper quadrant pain October 2023 and she went to [facility] where she had ultrasound. She was told that she has a gallbladder stone and probably she has elevated transaminases as per Dr. Austin at that time. I tried to log into [employer] to check it but could not. She had right upper quadrant sonogram in ED shows cholelithiasis without features of acute cholecystitis. ED physician consulted and she wanted to admit under medicine with GI consult. [facility] Medical History Wears glasses Depression Anxiety Alcohol use Migraine headache Former smoker Hypertension Hx of vaginal delivery ADHD Home Medications ???Medication ???Instructions ???Recorded ???Last Taken ???Type dextroamphetamine-amp hetamine 30 30 mg PO 0800,1200 11/08/21 History mg tablet (Adderall) multivitamin 1 tab PO DAILY 11/08/21 07/03/24 H istory lisinopril 5 mg tablet 5 mg PO DAILY 07/04/24 07/04/24 Hi story Allergy/AdvReac Type Severity Reaction Status Date / Time metformin AdvReac Diarrhea Verified 07/04/24 11:01 Family History no significant family his Surgical History History of tonsillectomy and adenoidectomy Social History household members: spouse Smoking Status: Former smoker substance use type: does not use ROS ROS Narrative Constitutional: Reports fatigue and weakness. No fever. HEENT: Reports systems reviewed and no addt'l complaints, except as documented Respiratory/Chest: No acute shortness of breath or respiratory distress or wheezing. CVS: Denies chronic heart disease. Gastrointestinal: Bowel movement normal. Rest as described in HPI Genitourinary: Denies burning urination or new urinary tract symptoms Musculoskeletal: Denies acute joint pain or limited range of motion. No acute injury Neurologic: Denies seizure-like symptoms. Psychiatric: History of ADHD on Adderall skin: No ulcer. No rash Endocrinology: Reports systems reviewed and no addt'l complaints, except as documented Hematologic/Lymphatic : Reports systems reviewed and no addt'l complaints, except as documented Rest 14 ROS are negative except as mentioned in HPI Vital Signs Vital Signs Vital Signs: 07/04/24 06:20 07/04/24 06:47 07/04/24 08:49 Temperature 97.5 F L Temperature Source Oral Pulse Rate 85 85 84 Respiratory Rate 18 20 H 18 Blood Pressure 153/102 H 136/83 H 146/68 H Blood Pressure Mean 119 100 94 Pulse Ox 100 100 96 Oxygen Delivery Method Room Air Room Air Room Air 07/04/24 09:46 Temperature 98.3 F Temperature Source Pulse Rate 72 Respiratory Rate 18 Blood Pressure 116/68 Blood Pressure Mean 84 Pulse Ox 100 Oxygen Delivery Method Weight Weight: 218 lb 14.704 oz Body Mass Index (BMI) 40.0 Physical Exam Narrative Seen and examined Abdomen was examined after patient received morphine in ED. Abdominal pain is much better. General: Alert, Oriented x3, Cooperative HEENT: Atraumatic, PERRLA, EOMI, Normocephalic Oral: No Gingival or Mucosal Lesions/ Ulcerations Neck: Supple, No JVD, Negative Carotid Bruits Chest wall/Lungs: Air entry diminished in bilateral lung bases. No crepitation/rhonchi Cardiovascular: Regular rate, Regular Rhythm, Normal S1, Normal S2, No M/G/R Abdomen: Bowel Sounds Present, Soft, tenderness present over right subcostal margin at midclavicular line. Sherwood sign positive. No guarding or rigidity. : No dysuria. No renal angle tenderness. No suprapubic tenderness. Extremities: No edema, Capillary Refill Less than 3 Seconds Skin: No rashes, No breakdown Musculoskeletal: No Tenderness to Palpation of Joints or Extremities. Neurological: Cranial nerves II-XII grossly intact, DTR 2+/4. No acute focal neurological deficit. Psych/Mental Status: Nor (more content not included)... Normal [facility] Hematocrit Auto (Bld) [Volum e fraction]Ordered By: Harshil Sanches on 07-04-2024 Hematocrit (Bld) [Volume fraction] 36.0 % Low 37-47 [facility] Hemoglobin measurementOrdere d By: Harshil Sanches on 07-04-2024 Hemoglobin (Bld) [Mass/Vol] 11.9 g/dL Low 12.0-15. 0 [facility] Immature granulocytes/100 WB C Auto (Bld)Ordered By: Harshil Sanches on 07-04-2024 Immature granulocytes/100 WBC (Bld) 0.400 % 0.0-0.9 [facility] Comment on above: IG% - Immature Granu locytes (promyelocytes, myelocytes and metamyelocytes) > 1% indicates that a LEFT SHIFT is Present. International normalized rat io (INR) calculationOrdered By: Gavin Alford on 07-04-2024 INR Coag (Bld) [Relative time] 1.0 {INR} [facility] Ketones Test strip Ql (U)Ord ered By: Harshil Sanches on 07-04-2024 Ketones Ql (U) Negative Negative [facility] - Chemistry and C hemistry - challengeOrdered By: Harshil Sanches on 07-04-2024 AST [Catalytic activity/Vol] 594 U/L High <32 [facility] Lipaseon 07-04-2024 Lipase [Catalytic activity/Vol] 56 U/L Normal 13-75 [facility] Comment on above: Result Comment: Ronen baeza note: LIPASE revised reference range effective 22. New Lipase methodology. Expected to produce lower values than the previous assay method. NEW Reference Range: 13 - 75 U/L Performed By: #### L 500.3400 #### [facility] [address] [place] [address], [address] Lipase measurementOrdered By : Harshil Sanches on 07-04-2024 Lipase [Catalytic activity/Vol] 56 U/L 13-75 [facility] Comment on above: Please note:LIPASE r evised reference range effective 22. New Lipase methodology. Expected to produce lower values than the previous assay method. NEW Reference Range: 13 - 75 U/L Liver Profileon 07-04-2024 Albumin [Mass/Vol] 4.2 g/dL Normal 3.5-5.0 [facility] Comment on above: Performed By: #### L 500.3400 #### [facility] [address] [place], [address] ALK PHOS 135 U/L High 35-104 [facility] Comment on above: Performed By: #### L 500.3400 #### [facility] [address] [place], [address] ALT [Catalytic activity/Vol] 352 U/L High <=34 [facility] Comment on above: Performed By: #### L 500.3400 #### [facility] [address] [place], [address] AST [Catalytic activity/Vol] 594 U/L High <=31 [facility] Comment on above: Performed By: #### L 500.3400 #### [facility] [address] [place], [address] Bilirubin [Mass/Vol] 0.80 mg/dL Normal 0.00-1.30 [facility] Comment on above: Performed By: #### L 500.3400 #### [facility] [address] [place], [address] Bilirubin.direct [Mass/Vol] 0.54 mg/dL High 0.00-0.[address] [facility] Comment on above: Performed By: #### L 500.3400 #### [facility] [address] [place], [address] Globulin (S) [Mass/Vol] 2.4 g/dL Normal 2.2-4.2 [facility] Comment on above: Performed By: #### L 500.3400 #### [facility] [address] [place], [address] T PROT 6.6 g/dL Normal 5.9-8.4 [facility] Comment on above: Performed By: #### L 500.3400 #### [facility] [address] [place], [place], [id number] Lymphocytes Auto (Unsp spec) [#/Vol]Ordered By: Harshil Sanches on 07-04-2024 Lymphocytes (Bld) [#/Vol] 0.96 10*3/uL 0.83-4.[address] [facility] Lymphocytes/100 WBC Auto (Un sp spec)Ordered By: Harshil Sanches on 07-04-2024 Lymphocytes/100 WBC (Bld) 12.7 % Low 19-41 [facility] MCV (mean corpuscular volume ) determinationOrdered By: Harshil Sanches on 07-04-2024 MCV (RBC) [Entitic vol] 77.4 fL Low 81-99 [facility] Magnesiumon 07-04-2024 Magnesium [Mass/Vol] 1.9 mg/dL Normal 1.5-2.2 [facility] Comment on above: Performed By: #### L [id number] #### [facility] [address] [place], [place], [address] Magnesium (Unsp spec) [Mass/ Vol]Ordered By: Juan Hdez on 07-04-2024 Magnesium [Mass/Vol] 1.9 mg/dL 1.5-2.2 [facility] Magnesium measurement (mass/ volume)Ordered By: Juan Hdez on 07-04-2024 Magnesium (Unsp spec) [Mass/Vol] 1.9 mg/dL 1.5-2.2 [facility] Mean corpuscular hemoglobin (MCH) determinationOrdered By: Harshil Sanches on 07-04-2024 MCH (RBC) [Entitic mass] 25.6 pg Low 27.0-32.0 [facility] Mean corpuscular hemoglobin concentration (MCHC) determinationOrdered By: Harshil Sanches on 07-04-2024 MCHC (RBC) [Mass/Vol] 33.1 g/dL 32-36 [facility] Mean platelet volume determi nationOrdered By: Harshil Sanches on 07-04-2024 Platelet mean volume (Bld) [Entitic vol] 10.0 fL 6.2-12.0 [facility] Microscopic analysis of urin e for red blood cells (RBC)Ordered By: Harshil Sanches on 07-04-2024 Microscopic analysis of urine for red blood cells (RBC) 0 SEEN /hpf 0-5 [facility] Urine RBC 0 SEEN /hpf 0-5 [facility] Monocyte percentageOrdered B y: Harshil Sanches on 07-04-2024 Monocytes/100 WBC (Bld) 6.9 % 0-10 [facility] Mucus LM Ql (Urine sed)Order ed By: Harshil Sanches on 07-04-2024 Mucus Ql (Urine sed) 0 SEEN /hpf [facility] Neutrophil percentageOrdered By: Harshil Sanches on 07-04-2024 Neutrophils/100 WBC (Bld) 79.3 % High 47-70 [facility] Nitrite Test strip Ql (U)Ord ered By: Harshil Sanches on 07-04-2024 Nitrite Ql (U) Negative Negative [facility] Nucleated red blood cell per centageOrdered By: Harshil Sanches on 07-04-2024 Nucleated RBC/100 WBC (Bld) [Ratio] 0 % 0-5 [facility] Partial Thromboplast Timeon 07-04-2024 aPTT Coag (Bld) [Time] 23.9 s Low 24.1-36.2 [facility] Comment on above: Performed By: #### L 500.3402 #### [facility] [address] [place] [address], [address] Platelet countOrdered By: Nancy Sanches on 07-04-2024 Platelets (Bld) [#/Vol] 312 10*3/uL 150-450 [facility] Potassium (Unsp spec) [Mass/ Vol]Ordered By: Harshil Sanches on 07-04-2024 Potassium [Moles/Vol] 4.0 mmol/L 3.3-5.1 [facility] ,Urineon 07-04-2024 Beta HCG ( test) Ql (U) Negative Normal [facility] Comment on above: Result Comment: Very dilute urine specimens, as indicated by a low specific gravity, may not contain sales representative raw fibers levels of hCG. If is still suspected, a first morning urine specimen should be collected 48 hours later and tested. Performed By: #### L 501.5200 #### [facility] [address] [place], [place], [id number] Protein Test strip Ql (U)Ord ered By: Harshil Sanches on 07-04-2024 Protein Ql (U) 30 mg/dl High Negative [facility] Prothrombin Time w/INRon INR Coag (PPP) [Relative time] 1.0 {INR} Normal [facility] Comment on above: Performed By: #### L 500.3400 #### [facility] [address] [place], [place], [id number] Prothrombin timeOrdered By: Gavin Alford on 07-04-2024 PT Coag (PPP) [Time] 13.5 s Normal 11.7-14.9 [facility] Comment on above: Performed By: #### L 500.3400 #### [facility] [address] [place], [place], [id number] RBC Auto (Bld) [#/Vol]Ordere d By: Harshil Sanches on 07-04-2024 RBC (Bld) [#/Vol] 4.65 10*6/uL 4.2-5.4 [facility] Serum creatinine measurement (mass/volume)Ordered By: Harshil Sanches on 07-04-2024 Creatinine [Mass/Vol] 0.56 mg/dL Low 0.70-1.20 [facility] Serum globulin measurementOr dered By: Harshil Sanches on 07-04-2024 Globulin (S) [Mass/Vol] 2.4 g/dL 2.2-4.2 [facility] Serum glucose measurement (m ass/volume)Ordered By: Harshil Sanches on 07-04-2024 Glucose [Mass/Vol] 105 mg/dL High 70-99 [facility] Serum or plasma alanine wilde otransferase (ALT) measurementOrdered By: Harshil Sanches on 07-04-2024 ALT [Catalytic activity/Vol] 352 U/L High <35 [facility] Serum or plasma albumin brian urement (mass/volume)Ordered By: Harshil Sanches on 07-04-2024 Albumin [Mass/Vol] 4.2 g/dL 3.5-5.0 [facility] Serum or plasma alkaline eduardo sphatase measurementOrdered By: Harshil Sanches on 07-04-2024 ALP [Catalytic activity/Vol] 135 U/L High 35-104 [facility] Serum or plasma calcium brian urement (mass/volume)Ordered By: Harshil Sanches on 07-04-2024 Calcium [Mass/Vol] 9.3 mg/dL 7.6-11.0 [facility] Serum or plasma urea nitroge n measurement (mass/volume)Ordered By: Harshil Sanches on 07-04-2024 Urea nitrogen [Mass/Vol] 8 mg/dL 4-19 [facility] Sodium levelOrdered By: Cahndan Sanches on 07-04-2024 Sodium [Moles/Vol] 138 mmol/L 133-145 [facility] Squamous epithelial cells de tection in urine sediment by light microscopyOrdered By: Harshil Sanches on 07-04-2024 Epithelial cells.squamous LM Ql (Urine sed) 0-5 SEEN /hpf 5-10 [facility] Total proteinOrdered By: Maynor Sanches on 07-04-2024 Protein [Mass/Vol] 6.6 g/dL 5.9-8.4 [facility] Type AND Screenon 07-04-2024 ABO and Rh group Nom (Bld) Blood group A B Rh(D) positive Normal [facility] Comment on above: Order Comment: S Performed By: #### L 500.3400 #### [facility] [address] [place], [place], [id number] Urinalysis, Completeon 07-04 EPI,SQUAMOUS 0-5 SEEN Normal 5-10 [facility] [facility] Comment on above: Order Comment: COLLE CTOR TO SPECIFY Performed By: #### L 501.5200 #### [facility] [address] [place], [address] WBC 0-5 SEEN Normal 0-5 [facility] Comment on above: Order Comment: MILTON CTOR TO SPECIFY Performed By: #### L 501.5200 #### [facility] [address] [place], [address] BACTERIA 0 SEEN Normal None Seen [facility] Comment on above: Order Comment: MILTON CTOR TO SPECIFY Performed By: #### L 501.5200 #### [facility] [address] [place], [address] Mucus Ql (Urine sed) 0 SEEN Normal [facility] Comment on above: Order Comment: MILTON CTOR TO SPECIFY Performed By: #### L 501.5200 #### [facility] [address] [place], [address] RBC 0 SEEN Normal 0-5 [facility] Comment on above: Order Comment: MILTON CTOR TO SPECIFY Performed By: #### L 501.5200 #### [facility] [address] [place], [address] Urine blood detectionOrdered By: Harshil Sanches on 07-04-2024 Urine Occult Blood Negative Negative [facility] Urine clarityOrdered By: Maynor Sanches on 07-04-2024 Clarity (U) Clear Clear [facility] Urine color determinationOrd ered By: Harshil Sanches on 07-04-2024 Color (U) Yellow Yellow [facility] Urine glucose detectionOrder ed By: Harshil Sanches on 07-04-2024 Glucose Ql (U) Normal mg/dl Normal [facility] Urine leukocyte esterase det ection by dipstickOrdered By: Harshil Sanches on 07-04-2024 Leukocyte esterase Test strip Ql (U) Negative Negative [facility] Urine pHOrdered By: Harshil means on 07-04-2024 pH (U) 7.0 [pH] 5.0 - 8.0 [facility] Urine testOrdered By: Harshil Sanches on 07-04-2024 HCG ( test) Ql (U) Negative [facility] Comment on above: Very dilute urine sp ecimens, as indicated by a low specificgravity, may not contain sales representative raw fibers levels of hCG. If is still suspected, a first morning urinespecimen should be collected 48 hours later and tested. Urine sediment bacteria coun t by microscopy (number/high power field)Ordered By: Harshil Sanches on 07-04-2024 Bacteria LM.HPF (Urine sed) [#/Area] 0 /[HPF] None Seen [facility] Urine specific gravity measu rementOrdered By: Harshil Sanches on 07-04-2024 Specific gravity (U) [Rel density] 1.010 1.002-1.[address] [facility] Urine urobilinogen measureme ntOrdered By: Harshil Sanches on 07-04-2024 Urobilinogen Ql (U) Normal mg/dl Normal [facility] Urobilinogen Ql (U)Ordered B y: Harshil Sanches on 07-04-2024 Urine Urobilinogen Normal mg/dl Normal [facility] White blood cell (WBC) count Ordered By: Harshil Sanches on 07-04-2024 WBC (Bld) [#/Vol] 7.6 10*3/uL 4.4-11.0 [facility] White blood cell countOrdere d By: Harshil Sanches on 07-04-2024 Urine WBC 0-5 SEEN /hpf 0-5 [facility] White blood cell count 0-5 SEEN /hpf 0-5 [facility] aPTT Coag (PPP) [Time]Ordere d By: Gavin Alford on 07-04-2024 aPTT Coag (Bld) [Time] 23.9 s Low 24.1-36.2 [facility] CNPNon 05-17-2024 CNPN Telephone (INTMWS) LIUDMILA WORLEY ([id number]) 1985 F Date Time Provider Department 05/17/24 MENA VERNON INTMWS During your visit today, we recorded the following information about you: Ashley Sprague RN 05/17/2024 12:25 PM Signed Pt states she is out of medication and this has happened before where she has had to have the PA put through before. Pt was asking if this could be processed as Stat or more quickly as the Pt is out of the medication. I told her it typically takes a few days for it to go through and it is dependant on her insurance. Prior Authorization Documentation Prior authorization requested for the following medication: Medication: Adderall Provider: Dr Vernon Insurance Company Name: [facility] [employer] Phone number: [phone] Patient ID number: [id number] Pharmacy Name: [facility] Telephone number: [phone] Leora Gambino MA 05/17/2024 1:35 PM Signed Tried to complete through covermymeds but would not process. Called [facility] at [phone] and completed with rep for adderall 30 mg BID. Advised will notify office once decision made through fax AIXA Meng Janice, LPN 05/18/2024 8:28 AM Signed Fax rec'd from [employer] noting no PA is needed for dextroamphetamine/amp hetamine. Please advise member enrolled in managed care plan to take their prescriptions to an in network pharmacy to have filled. Pt notified via my chart. Ashley Sprague RN 05/18/2024 10:36 AM Signed Pt states it is for the brand name Adderall to get the CHAZ 1. She states Dr Vernon knows about this. Leora Gambino MA 05/18/2024 11:05 AM Signed Called and spoke to [facility] PA is still in process that was done over the phone for Brand name ADDERALL 30 mg BID. Fax received yesterday was from [employer] submission. AIXA Meng Janice, LPN 05/19/2024 4:17 PM Signed Denial rec'd. They note they need notes noting pt has positive effects with current treatment. Office notes faxed for review. eLora Gambino MA 05/24/2024 11:13 AM Signed Called [facility] [phone] and did not receive chart notes. [facility] rep advised should re-submitted again for Name Brand : Adderall 30 mg BID and faxed chart notes Auth ID [id number] Leyla Hussein LPN 05/25/2024 8:55 AM Signed Fax rec'd from [facility]. Approval for adderall 30mg from 05/24/24 to 05/23/26. Faxed to pharmacy and pt notified via my chart. Allergies As of Date: 05/17/2024 Noted Allergy Reaction SEASONAL ALLERGIES 07/20/2015 14 - Other: See Comments Date Reviewed: 04/19/2024 Reviewed by: Edelmira Baugh LPN - Fully Assessed Reason for Visit: Insurance Authorization [[id number]] Prescriptions as of 05/25/2024 - lisinopril (ZESTRIL) 5 mg tablet Take 1 tablet by mouth once daily. - ADDERALL 30 mg tablet Take 1 tablet by mouth two times a day for 30 days. Patient should start on April 24, 2024. - ADDERALL 30 mg tablet Take 1 tablet by mouth two times a day for 30 days. Patient should start on May 16, 2024. - ADDERALL 30 mg tablet Take 1 tablet by mouth two times a day for 30 days. Patient should start on June 15, 2024. - benzonatate (TESSALON PERLE) 100 mg capsule Take 2 capsules by mouth three times a day as needed. - ADDERALL 30 mg tablet Take 1 tablet by mouth two times a day for 30 days. Patient should start on April 05, 2024. 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] 12/10/2012 Urinary incontinence [R32] 12/10/2012 10/13/2015 Attention deficit disorder (ADD) [F98.8] 03/28/2014 Obesity, unspecified [E66.9] Atypical squamous cells of undetermined signifi*08/08/2015 10/10/2021 Obesity in [O99.210] 09/28/2015 05/21/2016 Group B Streptococcus urinary tract infection a*10/16/2015 05/21/2016 Elevated blood pressure affecting in *04/18/2016 05/21/2016 History of gestational hypertension [Z87.59] 06/04/2018 History of depression [Z86.59] 06/04/2018 Sterilization [Z30.2] 11/11/2018 05/29/2020 Obesity, Class II, BMI 35-39.9 [E66.812] 10/10/2021 Anxiety and depression [F41.9, F32.A] 10/31/2021 Dry eyes [H04.123] 07/10/2022 PCOS (polycystic ovarian syndrome) [E28.2] 01/08/2023 Encounter Status:Closed by LEYLA HUSSEIN on 05/25/24 Normal [facility] CBC panel Auto (Bld)on 04-19 Erythrocyte distribution width (RBC) [Ratio] 14.8 % Normal 11.5-15.0 [facility] Comment on above: Order Comment: Speci men Type: BLOOD SPECIMENOrdering Facility: [facility] Address: [address] [place] [address] Performed By: #### 5 8410-2 ####[facility] LABCLIA [id number] [place] [address] [place] Hematocrit (Bld) [Volume fraction] 37.3 % Normal 36.0-46.0 [facility] Comment on above: Order Comment: Speci men Type: BLOOD SPECIMENOrdering Facility: [facility] Address: [address] [place] [address] Performed By: #### 5 8410-2 ####[facility] LABCLIA [id number] [place] [address] [place] Hemoglobin (Bld) [Mass/Vol] 11.7 g/dL Normal 11.5-15. 5 [facility] Comment on above: Order Comment: Speci men Type: BLOOD SPECIMENOrdering Facility: [facility] Address: [address] [place] [address] Performed By: #### 5 8410-2 ####[facility] LABIA [id number] [place] [address] [place] MCH (RBC) [Entitic mass] 24.5 pg Low 26.0-34.0 [facility] Comment on above: Order Comment: Speci men Type: BLOOD SPECIMENOrdering Facility: [facility] Address: [address] [place] [address] Performed By: #### 5 8410-2 ####[facility] LABIA [id number] [place] [address] [place] MCHC (RBC) [Mass/Vol] 31.4 g/dL Normal 30.5-36.0 [facility] Comment on above: Order Comment: Speci men Type: BLOOD SPECIMENOrdering Facility: [facility] Address: [address] [place] [address] Performed By: #### 5 8410-2 ####[facility] LABIA [id number] [place] [address] [place] MCV (RBC) [Entitic vol] 78.0 fL Low 80.0-100.0 [facility] Comment on above: Order Comment: Speci men Type: BLOOD SPECIMENOrdering Facility: [facility] Address: [address] [place] [address] Performed By: #### 5 8410-2 ####[facility] LABCLIA [id number] [place] [address] [place] Nucleated RBC (Bld) [#/Vol] 10*3/uL Normal <0.01 [facility] Comment on above: Order Comment: Speci men Type: BLOOD SPECIMENOrdering Facility: [facility] Address: [address] [place] [address] Performed By: #### 5 8410-2 ####[facility] LABIA [id number] [place] [id number] [place] Platelet mean volume (Bld) [Entitic vol] 9.7 fL Normal 9.0-12.7 [facility] Comment on above: Order Comment: Speci men Type: BLOOD SPECIMENOrdering Facility: [facility] Address: [address] [place] [address] Performed By: #### 5 8410-2 ####[facility] LABIA [id number] [place] [address] [place] Platelets (Bld) [#/Vol] 378 10*3/uL Normal 150-400 [facility] Comment on above: Order Comment: Speci men Type: BLOOD SPECIMENOrdering Facility: [facility] Address: [address] [place] [address] Performed By: #### 5 8410-2 ####[facility] LABIA [id number] [place] [address] [place] RBC (Bld) [#/Vol] 4.78 10*6/uL Normal 3.90-5.20 [facility] Comment on above: Order Comment: Speci men Type: BLOOD SPECIMENOrdering Facility: [facility] Address: [address] [place] [address] Performed By: #### 5 8410-2 ####[facility] LABIA [id number] [place] [address] [place] WBC (Bld) [#/Vol] 5.07 10*3/uL Normal 3.70-11.00 [facility] Comment on above: Order Comment: Speci men Type: BLOOD SPECIMENOrdering Facility: [facility] Address: [address] [place], [place] [address] Performed By: #### 5 8410-2 ####[facility] EBONI [id number] [id number] [id number] [place] CNOVon 04-19-2024 CNOV Office Visit (INTMWS ) LIUDMILA WORLEY ([id number]) 1985 F Date Time Provider Department 04/19/24 8:40 AM MENA VERNON INTMWS During your visit today, we recorded the following information about you: Pulse Respiration Blood pressure Weight 97/minute 16/minute 128/84 98 kg Mena Vernon MD 04/19/2024 9:45 AM Signed This note was created using [employer]. Subjective Liudmila Worley is a 38 year old female. Patient presents with: F/U 3 Month SUBJECTIVE: Liudmila Worley is a 38 year old year old lady here today for 3 month follow up appointment for review of medical conditions. Liudmila Worley is a 38-year-old female with a history of HTN and iron deficiency, presenting for a follow-up visit. Liudmila reports intermittent numbness and pruritus in the left paraspinal region, just below the bra strap area, which has been occurring for approximately 2 years. These symptoms are localized to the same area and can persist intermittently throughout the day. She denies any specific triggers or activities that exacerbate the symptoms and has not noticed any associated muscle tension or discomfort in the area. She has not scratched the area to the point of causing bleeding or bruising. She also reports persistent fatigue, which she attributes to a combination of hormonal changes, stress, and a busy lifestyle. She is uncertain if her fatigue is related to her known iron deficiency. She has been making efforts to incorporate iron-rich foods into her diet but denies consuming liver. Liudmila has been actively working on weight management and has recently started using a weight loss angélica to help with portion control and mindful eating. She reports a tendency to eat late at night, often choosing sweeter foods, but has been trying to make healthier choices, such as [place]an yogurt and fruit parfaits. She also reports experiencing dyspnea, which she notes has been a persistent issue since a previous COVID-19 infection. She recently had a bout of influenza A, which she describes as the worst flu she has ever experienced, with symptoms similar to COVID-19. She notes that her is still experiencing congestion and other symptoms. PAST MEDICAL HISTORY Diagnosis Date Abnormal Pap smear of cervix 2016 ASCUS pap , negative HPV Adult attention deficit disorder Obesity, unspecified Current Outpatient Medications Medication Sig guaiFENesin (MUCINEX) 600 mg 12 hr tablet Take 2 tablets by mouth two times a day. ADDERALL 30 mg tablet Take 1 tablet by mouth two times a day for 30 days. Patient should start on April 05, 2024. lisinopril (ZESTRIL) 5 mg tablet Take 1 tablet by mouth once daily. amoxicillin-clavulana te potassium (AUGMENTIN) 875-125 mg per tablet Take 1 tablet by mouth two times a day for 5 days. (Patient not taking: Reported on 04/19/2024) benzonatate (TESSALON PERLE) 100 mg capsule Take 2 capsules by mouth three times a day as needed. (Patient not taking: Reported on 04/19/2024) ADDERALL 30 mg tablet Take 1 tablet by mouth two times a day for 30 days. Patient should start on March 06, 2024. ADDERALL 30 mg tablet Take 1 tablet by mouth two times a day for 30 days. Patient should start on February 06, 2024. No current facility-administered medications for this visit. Review of Systems Objective BP 128/84 Pulse 97 Resp 16 Wt 98 kg (216 lb 0.8 oz) LMP 09/30/2023 BMI 38.27 kg/m? Last 5 Encounter Wt Readings: Date: Wt: 04/19/2024 98 kg (216 lb 0.8 oz) 04/14/2024 99.7 kg (219 lb 12.8 oz) 10/03/2023 98.9 kg (218 lb) 08/31/2023 97 kg (213 lb 13.5 oz) 05/29/2023 99.5 kg (219 lb 5.7 oz) No waist measurement recorded Estimated body mass index is 38.27 kg/m? as calculated from the following: Height as of 10/22/22: 160 cm (5' 3). Weight as of this encounter: 98 kg (216 lb 0.8 oz). Last 5 Encounter BP Readings: Date: BP: 04/19/2024 128/84 04/14/2024 136/82 10/03/2023 138/78 08/31/2023 155/97[no meds this am[ 05/29/2023 163/120 Physical Exam Musculoskeletal: Back: Assessment and Plan # Attention deficit hyperactivity disorder (ADHD), unspecified ADHD type (F90.9) - Medication management with Adderall; prior authorization required for brand name. - Submitted prescription with note to pharmacy to initiate prior authorization process. - Next refill due on May 16. # Essential (primary) hypertension (I10) - Blood pressure readings improved from 130 mmHg to 120 mmHg. - Refilled lisinopril prescription. - Ordered labs to monitor blood pressure control. # Iron deficiency anemia, unspecified iron deficiency anemia type (D50.9) - Ordered labs to assess current iron levels. - Discussed dietary sources of iron. # Radiculopathy, thoracic region (M54.14) - Symptoms of localized numbness and pruritus in the left thoracic region, likely due to (more content not included)... Normal [facility] Comprehensive metabolic 2000 panelon 04-19-2024 Albumin [Mass/Vol] 4.4 g/dL Normal 3.9-4.9 [facility] Comment on above: Order Comment: Kait rbock Type: BLOOD SPECIMENOrdering Facility: [facility] Address: [address] [place] [address] Performed By: #### 2 4331-1, 2276-4, 98616-9, 00473-1 ####[facility] LABCLIA [id number] [place] [address] [place] ALP [Catalytic activity/Vol] 100 U/L Normal 34-123 [facility] Comment on above: Order Comment: Kait brock Type: BLOOD SPECIMENOrdering Facility: [facility] Address: [address] [place] [address] Performed By: #### 2 4331-1, 2276-4, 35739-0, 82330-1 ####[facility] LABCLIA [id number] [place] [address] [place] ALT [Catalytic activity/Vol] 32 U/L Normal 7-38 [facility] Comment on above: Order Comment: Speci men Type: BLOOD SPECIMENOrdering Facility: [facility] Address: [address] [place] [address] Performed By: #### 2 4331-1, 2276-4, 53992-1, 36857-9 ####[facility] LABIA [id number] [place] [address] [place] Anion gap [Moles/Vol] 8 mmol/L Normal 8-15 [facility] Comment on above: Order Comment: Speci men Type: BLOOD SPECIMENOrdering Facility: [facility] Address: [address] [place] [address] Performed By: #### 2 4331-1, 6-4, 29265-3, 48033-8 ####[facility] LABIA [id number] [place] [address] [place] AST [Catalytic activity/Vol] 22 U/L Normal 13-35 [facility] Comment on above: Order Comment: Speci men Type: BLOOD SPECIMENOrdering Facility: [facility] Address: [address] [place] [address] Performed By: #### 2 4331-1, 6-4, 54811-6, 02697-9 ####[facility] LABIA [id number] [place] [id number] [place] Bilirubin [Mass/Vol] 0.2 mg/dL Normal 0.2-1.3 [facility] Comment on above: Order Comment: Speci men Type: BLOOD SPECIMENOrdering Facility: [facility] Address: [address] [place] [address] Performed By: #### 2 4331-1, 2276-4, 73456-2, 94186-0 ####[facility] LABCLIA [id number] [address] [address] [place] Calcium [Mass/Vol] 9.6 mg/dL Normal 8.5-10.2 [facility] Comment on above: Order Comment: Speci men Type: BLOOD SPECIMENOrdering Facility: [facility] Address: [address] [place], [place] [address] Performed By: #### 2 4331-1, 2276-4, 01252-1, 15886-3 ####[facility] LABIA [id number] [place] [id number] [place] Chloride [Moles/Vol] 105 mmol/L Normal 98-107 [facility] Comment on above: Order Comment: Speci men Type: BLOOD SPECIMENOrdering Facility: [facility] Address: [address] [place] [address] Performed By: #### 2 4331-1, 2276-4, 54792-4, 56714-2 ####[facility] LABIA [id number] [place] [id number] [place] CO2 [Moles/Vol] 24 mmol/L Normal 22-30 [facility] Comment on above: Order Comment: Speci men Type: BLOOD SPECIMENOrdering Facility: [facility] Address: [address] [place], [place] [address] Performed By: #### 2 4331-1, 2276-4, 41035-1, 30747-0 ####[facility] LABIA [id number] [place] [id number] [place] Creatinine [Mass/Vol] 0.59 mg/dL Normal 0.58-0.96 [facility] Comment on above: Order Comment: Speci men Type: BLOOD SPECIMENOrdering Facility: [facility] Address: [address] [place] [address] Performed By: #### 2 4331-1, 2276-4, 04864-0, 21838-7 ####[facility] LABIA [id number] [place] [id number] [place] Creatinine and Glomerular filtration rate.predicted panel (S/P/Bld) 120 mL/min/1.73m??? Normal >=60 [facility] Comment on above: Order Comment: Kait brock Type: BLOOD SPECIMENOrdering Facility: [facility] Address: [address] [place] [address] Result Comment: Angela mated Glomerular Filtration Rate (eGFR) is calculated using the 2020 CKD-EPI creatinine equation. This equation utilizes serum creatinine, sex, and age as parameters. The creatinine assay has traceable calibration to isotope dilution-mass spectrometry. Refer to KDIGO guidelines for clinical interpretation. In patients with unstable renal function, e.g. those with acute kidney injury, the eGFR may not accurately reflect actual GFR. Performed By: #### 2 4331-1, 2276-4, 95958-7, 32666-1 ####[facility] LABIA [id number] [place] [id number] [place] Glucose [Mass/Vol] 91 mg/dL Normal 74-99 [facility] Comment on above: Order Comment: Kait brock Type: BLOOD SPECIMENOrdering Facility: [facility] Address: [address] [place] [address] Result Comment: The [place] [employer] (ADA) provides guidance for cutoff values for fasting glucose and random glucose. The ADA defines fasting as no caloric intake for at least 8 hours. Fasting plasma glucose results between 100 to 125 mg/dL indicate increased risk for diabetes (prediabetes). Fasting plasma glucose results greater than or equal to 126 mg/dL meet the criteria for diagnosis of diabetes. In the absence of unequivocal hyperglycemia, results should be confirmed by repeat testing. In a patient with classic symptoms of hyperglycemia or hyperglycemic crisis, random plasma glucose results greater than or equal to 200 mg/dL meet the criteria for diagnosis of diabetes. Reference: Standards of Medical Care in Diabetes 2016, [place] [employer]. Diabetes Care. 2016.39(Suppl 1). Performed By: #### 2 4331-1, 2276-4, 56546-8, 45029-2 ####[facility] LABCLIA [id number] [address] [address] [place] Potassium [Moles/Vol] 4.2 mmol/L Normal 3.7-5.1 [facility] Comment on above: Order Comment: Speci men Type: BLOOD SPECIMENOrdering Facility: [facility] Address: [address] [place] [address] Performed By: #### 2 4331-1, 6-4, 75873-2, 16976-3 ####[facility] LABIA [id number] [place] [address] [place] Protein [Mass/Vol] 7.0 g/dL Normal 6.3-8.0 [facility] Comment on above: Order Comment: Speci men Type: BLOOD SPECIMENOrdering Facility: [facility] Address: [address] [place] [address] Performed By: #### 2 4331-1, 2276-4, 03788-1, 60594-8 ####[facility] LABIA [id number] [place] [id number] [place] Sodium [Moles/Vol] 137 mmol/L Normal 136-144 [facility] Comment on above: Order Comment: Speci men Type: BLOOD SPECIMENOrdering Facility: [facility] Address: [address] [place] [address] Performed By: #### 2 4331-1, 2276-4, 82674-5, 65147-5 ####[facility] LABIA [id number] [place] [id number] [place] Urea nitrogen [Mass/Vol] 10 mg/dL Normal 7-21 [facility] Comment on above: Order Comment: Speci men Type: BLOOD SPECIMENOrdering Facility: [facility] Address: [address] [place] [address] Performed By: #### 2 4331-1, 6-4, 83497-9, 84368-7 ####[facility] LABCLIA [id number] [address] [address] [place] Ferritin SerPl-ncon 2024 Ferritin [Mass/Vol] 17.6 ng/mL Normal 14.7-205.1 [facility] Comment on above: Order Comment: Speci men Type: BLOOD SPECIMENOrdering Facility: [facility] [facility] Address: [address] [place] [address] Performed By: #### 2 4331-1, 6-4, 22558-0, 38710-9 ####[facility] LABCLIA [id number] [place] [id number] [place] Iron and Iron binding capaci ty panelon 04-19-2024 Iron [Mass/Vol] 34 ug/dL Low 41-186 [facility] Comment on above: Order Comment: Speci men Type: BLOOD SPECIMENOrdering Facility: [facility] Address: [address] [place] [address] Performed By: #### 2 4331-1, 2275-4, 03074-2, 95492-7 ####[facility] LABCLIA [id number] [place] [id number] [place] Iron binding capacity [Mass/Vol] 407 ug/dL High 232-386 [facility] Comment on above: Order Comment: Speci men Type: BLOOD SPECIMENOrdering Facility: [facility] Address: [address] [place], [place] [address] Performed By: #### 2 4331-1, 6-4, 37729-5, 82000-1 ####[facility] LABCLIA [id number] [place] [id number] [place] Iron/TIBC [Molar ratio] 8.4 % Low 15.0-57.0 [facility] Comment on above: Order Comment: Speci men Type: BLOOD SPECIMENOrdering Facility: [facility] Address: [address] [place] [address] Performed By: #### 2 4331-1, 2275-4, 60722-5, 12804-5 ####[facility] LABCLIA [id number] [address] [address] [place] Lipid 1996 panelon 5 Cholesterol [Mass/Vol] 200 mg/dL High <200 [facility] Comment on above: Order Comment: Speci men Type: BLOOD SPECIMENOrdering Facility: [facility] Address: [address] [place] [address] Result Comment: <200 mg/dL, Desirable 200-239 mg/dL, Borderline high >239 mg/dL, High Performed By: #### 2 4331-1, 2275-4, 88770-7, 39816-1 ####[facility] LABCLIA [id number] [address] [place] Cholesterol in HDL [Mass/Vol] 47 mg/dL Normal >39 [facility] Comment on above: Order Comment: Speci men Type: BLOOD SPECIMENOrdering Facility: [facility] Address: [address] [place] [address] Result Comment: 40-5 9 mg/dL, Acceptable >59 mg/dL, High: Negative risk factor for coronary heart disease <40 mg/dL, Low: Positive risk factor for coronary heart disease Performed By: #### 2 4331-1, 2275-4, 26448-8, 15670-2 ####[facility] LABCLIA [id number] [place] [id number] [place] Cholesterol in LDL [Mass/Vol] 143 mg/dL High <100 [facility] Comment on above: Order Comment: Speci men Type: BLOOD SPECIMENOrdering Facility: [facility] Address: [address] [place] [address] Result Comment: <100 mg/dL, Optimal 100-129 mg/dL, Near optimal/above optimal 130-159 mg/dL, Borderline high 160-189 mg/dL, High >189 mg/dL, Very high Secondary prevention optimal LDL Cholesterol levels are recommended to be < 70 mg/dL Performed By: #### 2 4331-1, 2276-4, 82318-4, 09551-2 ####[facility] LABCLIA [id number] [address] [address] [place] Cholesterol in LDL/Cholesterol in HDL [Mass ratio] 3.04 {ratio} High <2.54 [facility] Comment on above: Order Comment: Speci men Type: BLOOD SPECIMENOrdering Facility: [facility] Address: [address] [place] [address] Result Comment: Refe lance: 1. National Cholesterol Education Program ATP III Guideline At-A-Glance Quick Desk Reference: National Heart, Lung, and Blood [place]. National Institutes of Health. 2001: NIH Publication No. 01-3305. 2. An International Atherosclerosis Society position paper: global recommendations for the management of dyslipidemia: executive summary, Atherosclerosis. 2014: 232(2):410-413. Performed By: #### 2 4331-1, 6-4, 62897-4, 20990-9 ####[facility] LABIA [id number] [place] [address] [place] Cholesterol in VLDL [Mass/Vol] 10 mg/dL Normal <30 [facility] Comment on above: Order Comment: Speci men Type: BLOOD SPECIMENOrdering Facility: [facility] Address: [address] [place] [address] Performed By: #### 2 4331-1, 6-4, 14530-8, 14324-1 ####[facility] LABCLIA [id number] [place] [id number] [place] Cholesterol non HDL [Mass/Vol] 153 mg/dL High <130 [facility] Comment on above: Order Comment: Speci men Type: BLOOD SPECIMENOrdering Facility: [facility] Address: [address] [place] [address] Result Comment: <130 mg/dL, Optimal 130-159 mg/dL, Near optimal/above optimal 160-189 mg/dL, Borderline high 190-219 mg/dL, High >219 mg/dL, Very high Secondary prevention optimal non HDL Cholesterol levels are recommended to be <100 mg/dL Performed By: #### 2 4331-1, 2276-4, 52013-2, 81554-5 ####[facility] LABCLIA [id number] [place] [address] [place] Cholesterol.total/Cholester ol in HDL [Mass ratio] 4.26 {ratio} Normal <5.10 [facility] Comment on above: Order Comment: Speci men Type: BLOOD SPECIMENOrdering Facility: [facility] Address: [address] [place] [address] Performed By: #### 2 4331-1, 6-4, 52023-0, 09491-0 ####[facility] LABCLIA [id number] [address] [place] FASTING TIME 12 hrs Normal [facility] Comment on above: Order Comment: Speci men Type: BLOOD SPECIMENOrdering Facility: [facility] Address: [address] [place] [address] Performed By: #### 2 4331-1, 2275-4, 17573-5, 56779-9 ####[facility] LABCLIA [id number] [address] [place] Triglyceride [Mass/Vol] 48 mg/dL Normal <150 [facility] Comment on above: Order Comment: Speci men Type: BLOOD SPECIMENOrdering Facility: [facility] Address: [address] [place] [address] Result Comment: <150 mg/dL, Normal 150-199 mg/dL, Borderline high 200-499 mg/dL, High >499 mg/dL, Very high Performed By: #### 2 4331-1, 6-4, 68988-7, 69086-7 ####[facility] LABCLIA [id number] [address] [address] [place] CNOVon 04-14-2024 CNOV Office Visit (UCWSTR ) LIUDMILA WORLEY ([id number]) 1985 F Date Time Provider Department 04/14/24 7:45 PM [facility] During your visit today, we recorded the following information about you: Temperature Pulse Respiration Blood pressure 97.4 degrees 102/minute 16/minute 136/82 Weight 99.7 kg 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 No english as a second language instructor was used. HPI Liudmila Worley is a 38 year old female who presents today for CC of nasal congestion, cough, sinus pressure for 6-7 days. She has used tylenol, theraflu without relief. Daughter had influenza A yesterday. LMP 09/30/2023 Social History Tobacco Use Smoking status: Former Current packs/day: 0.00 Types: Cigarettes Quit date: 06/03/2008 Years since quittin.8 Smokeless tobacco: Never Tobacco comments: 2 Cigarettes per week Vaping Use Vaping status: Never Used Substance Use Topics Alcohol use: No Drug use: No PAST MEDICAL HISTORY Diagnosis Date Abnormal Pap smear of cervix 2016 ASCUS pap , negative HPV Adult attention deficit disorder Obesity, unspecified I have confirmed and edited as necessary, the [facility] Review of Systems Constitutional: Negative for chills and fever. HENT: Positive for congestion and sinus pain. Negative for ear pain and sore throat. Respiratory: Positive for cough. Negative for sputum production, shortness of breath and wheezing. Cardiovascular: Negative for chest pain. Gastrointestinal: Negative for abdominal pain, diarrhea, nausea and vomiting. Musculoskeletal: Negative for myalgias. Neurological: Negative for headaches. Objective Physical Exam Vitals and nursing note reviewed. HENT: Head: Normocephalic and atraumatic. Right Ear: Tympanic membrane, ear canal and external ear normal. Left Ear: Tympanic membrane, ear canal and external ear normal. Nose: Mucosal edema, congestion and rhinorrhea present. Right Sinus: No maxillary sinus tenderness or frontal sinus tenderness. Left Sinus: No maxillary sinus tenderness or frontal sinus tenderness. Mouth/Throat: Pharynx: Uvula midline. No oropharyngeal exudate or posterior oropharyngeal erythema. Cardiovascular: Rate and Rhythm: Normal rate and regular rhythm. Heart sounds: Normal heart sounds. Pulmonary: Effort: Pulmonary effort is normal. Breath sounds: Normal breath sounds. Lymphadenopathy: Head: Right side of head: No submental, submandibular or tonsillar adenopathy. Left side of head: No submental, submandibular or tonsillar adenopathy. Cervical: No cervical adenopathy. Skin: General: Skin is warm and dry. Neurological: Mental Status: She is alert. Psychiatric: Mood and Affect: Affect normal. ASSESSMENT/PLAN: 1. Viral URI - ICD9: 465.9, ICD10: J06.9 (primary diagnosis) - probable flu - Discussed viral etiology and rationale for treatment. - Symptomatic treatment with prn analgesia - Supportive care with fluids and rest - No testing done If no improvement by Friday, to start Augmentin 2. Acute cough - ICD9: 786.2, ICD10: R05.1 Peyman shrestha Diagnosis and treatment plan were discussed and questions were answered to the patient's satisfaction. Pt acknowledged understanding of concepts and follow up plan. Specific signs and symptoms that would indicate the need for higher level of care were discussed in detail warranting prompt ER evaluation. ANIBAL Agudelo Tonya, APRN.CNP 04/14/2024 8:01 PM Signed Rest, increase water intake Motrin or Tylenol as needed for fever or pain. Salt water gargles, chloraseptic spray or lozenges as needed for sore throat. Warm beverages, honey. Nasal saline spray as needed Cool mist humidifier at night A cold normally lasts 7-10 days. If your symptoms are lasting longer, develop fever, or worsening by that time instead of improving then return to clinic or follow up with PCP for re-evaluation. Kassidyon Iris 2 every 8 hours, do not combine this with robitussin or delsym Mucinex as ordered Tylenol (generic acetaminophen) 500 mg-2 tabs every 8 hrs. as needed for fever and aches Ibuprofen 600 mg (3-200mg tablets) every 6 hours If no improvement start Augmentin as ordered ;* Seek medical care immediately, call 911, go to ER if you have chest pain, difficulty breathing, shortness of breath, inability to swallow. Allergies As of Date: 04/14/2024 Noted Allergy Reaction SEASONAL ALLERGIES 07/20/2015 14 - Other: See Comments Date Reviewed: 04/14/2024 Reviewed by: Elif Stanford MA - Fully Assessed Reason for Visit: Chest Congestion [236] Cmt: cough, sinus pressure, headache, ear pain x 6-7 days Primary Visit Diagnosis:Viral URI [J06.9] Other Visit Diagnosis:Acute cough [R05.1] Order(s):amoxicillin- clavulanate potassium (AUGMENTIN) 875-125 mg per tabletTake 1 (more content not included)... Normal [facility] LIUDMILA WORLEY ([id number]) 1985 F Date Time Provider Department 12/03/23 [facility] INTWS During your visit today, we recorded the following information about you: Aimee Ludwig RN 12/03/2023 10:49 AM Signed PRIOR AUTHORIZATION Medication for Prior Authorization: Adderall 30 mg (Brand Name) Insurance Company: [employer] Patient insurance ID number: [id number] SHARIFA Montanez Janice, LPN 12/03/2023 11:36 AM Signed Unable to complete electronically. Will try on covermymeds. Leyla Hussein LPN 12/03/2023 11:36 AM Signed Covermymeds PA response is Information regarding your request Electronic prior authorization not supported as no PA required for [facility] and for member's age. Called the pharmacy and reviewed. Pharmacist says they have to call insurance every month to get an override. This was previously approved in [facility] and good until 04/26/24. Allergies As of Date: 12/03/2023 Noted Allergy Reaction SEASONAL ALLERGIES 07/20/2015 14 - Other: See Comments Date Reviewed: 10/03/2023 Reviewed by: Caron Jama LPN - Fully Assessed Reason for Visit: Insurance Authorization [2373] Prescriptions as of 12/03/2023 - ADDERALL 30 mg tablet Take 1 tablet by mouth two times a day for 30 days. - ADDERALL 30 mg tablet Take 1 tablet by mouth two times a day for 30 days. Do not start before November 02, 2023. - ADDERALL 30 mg tablet Take 1 tablet by mouth two times a day for 30 days. Do not start before December 02, 2023. - lisinopril (ZESTRIL) 5 mg tablet Take 1 tablet by mouth once daily. 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] 12/10/2012 Urinary incontinence [R32] 12/10/2012 10/13/2015 Attention deficit disorder (ADD) [F98.8] 03/28/2014 Obesity, unspecified [E66.9] Atypical squamous cells of undetermined signifi*08/08/2015 10/10/2021 Obesity in [O99.210] 09/28/2015 05/21/2016 Group B Streptococcus urinary tract infection a*10/16/2015 05/21/2016 Elevated blood pressure affecting in *04/18/2016 05/21/2016 History of gestational hypertension [Z87.59] 06/04/2018 History of depression [Z86.59] 06/04/2018 Sterilization [Z30.2] 11/11/2018 05/29/2020 Obesity, Class II, BMI 35-39.9 [E66.9] 10/10/2021 Anxiety and depression [F41.9, F32.A] 10/31/2021 Dry eyes [H04.123] 07/10/2022 PCOS (polycystic ovarian syndrome) [E28.2] 01/08/2023 Encounter Status:Closed by MELVINA HUSSEINICE on 12/03/23 Normal [facility] US ABDOMEN LIMITEDon 024 US ABDOMEN LIMITED ORIGINAL EXAMINATION: LIMITED ABDOMINAL ULTRASOUND11/07/2023 9:53 am TECHNIQUE: Multiple real time sonographic images of the abdomen were obtained assessing sinclair-scale appearance and color Doppler. All images are recorded and archived. COMPARISON: None HISTORY: ORDERING SYSTEM PROVIDED HISTORY: Reason for Exam: ruq painreported nausea and chills. FINDINGS: PANCREAS: Partially obscured by bowel gas. The visualized portions of the pancreas are normal in size and echogenicity. LIVER: The visualized liver is normal in size, contour, and echogenicity with no hepatic mass identified. GALLBLADDER/BILARY: Negative sonographic Sherwood's sign. Cholelithiasis without evidence of gallbladder-wall thickening or pericholecystic fluid. Nointrahepatic biliary ductal dilatation. CBD measures 3 mm. RIGHT KIDNEY: The visualized right kidney is normal in length, parenchymal echogenicity, and cortical thickness. ASCITES: None. IMPRESSION: Cholelithiasis without secondary sonographic features of acute cholecystitis. I have personally reviewed the images of this examination and agree with the resident's findings and interpretation. Interpreted by: Demarco Gonzalez DO Preliminary Report By: Javad Stout Electronically signed By Demarco Gonzalez DO Dictated Date: 11/07/2023 10:00:27 AM Prelim Date: 11/07/2023 10:46:03 AM Sign Date: 11/07/2023 10:46:03 AM Ordering Provider: DIEGO Wilde [facility] ([place]) .Auto Diffon 11-05-2023 Basophil, Absolute 0.0 10 3/mcL Normal 0.0-0.2 [facility] ([place]) Comment on above: Performed By: #### A DIFF, GFR, MDW, LIP, CMP, ANEU, CBC #### [address] [address] Basophils/100 WBC (Bld) 0.3 % Normal 0.0-2.5 [facility] ([place]) Comment on above: Performed By: #### A DIFF, GFR, MDW, LIP, CMP, ANEU, CBC #### [address] [address] Eosinophil, Absolute 0.0 10 3/mcL Normal 0.0-0.4 [facility] ([place]) Comment on above: Performed By: #### A DIFF, GFR, MDW, LIP, CMP, ANEU, CBC #### [address] [address] Eosinophils/100 WBC (Bld) 0.3 % Normal 0.0-7.0 [facility] ([place]) Comment on above: Performed By: #### A DIFF, GFR, MDW, LIP, CMP, ANEU, CBC #### [address] [address] Lymphocyte, Absolute 0.7 10 3/mcL Low 0.8-3.9 [facility] ([place]) Comment on above: Performed By: #### A DIFF, GFR, MDW, LIP, CMP, ANEU, CBC #### [address] [address] Lymphocytes/100 WBC (Bld) 5.9 % Low 10.0-50.0 [facility] ([place]) Comment on above: Performed By: #### A DIFF, GFR, MDW, LIP, CMP, ANEU, CBC #### [address] [address] Monocyte, Absolute 0.6 10 3/mcL Normal 0.2-1.0 [facility] ([place]) Comment on above: Performed By: #### A DIFF, GFR, MDW, LIP, CMP, ANEU, CBC #### [address] [address] Monocytes/100 WBC (Bld) 5.1 % Normal 1.7-13.0 [facility] ([place]) Comment on above: Performed By: #### A DIFF, GFR, MDW, LIP, CMP, ANEU, CBC #### [address] [address] Neutrophils/100 WBC (Bld) 88.4 % High 37.0-80.0 [facility] ([place]) Comment on above: Performed By: #### A DIFF, GFR, MDW, LIP, CMP, ANEU, CBC #### [address] [address] .GFRon 11-05-2023 GFR 123 ml/min/1.73sqm Normal [facility] ([place]) Comment on above: Result Comment: GFR Population mean for , Non- Americans Ages 20-29 = 116 mL/min/1.73 sq.m. Ages 30-39 = 107 mL/min/1.73 sq.m. Ages 40-49 = 99 mL/min/1.73 sq.m. Ages 50-59 = 93 mL/min/1.73 sq.m. Ages 60-69 = 85 mL/min/1.73 sq.m. Ages 70+ = 75 mL/min/1.73 sq.m. Chronic Kidney Disease: Less than 60 mL/min/1.73 square meters End Stage Renal Disease: Less than 15 mL/min/1.73 square meters Performed By: #### A DIFF, GFR, MDW, LIP, CMP, ANEU, CBC #### [address] [address] GFR Non- 101 ml/min/1.73sqm Normal [facility] ([place]) Comment on above: Result Comment: GFR Population mean for , Non- Americans Ages 20-29 = 116 mL/min/1.73 sq.m. Ages 30-39 = 107 mL/min/1.73 sq.m. Ages 40-49 = 99 mL/min/1.73 sq.m. Ages 50-59 = 93 mL/min/1.73 sq.m. Ages 60-69 = 85 mL/min/1.73 sq.m. Ages 70+ = 75 mL/min/1.73 sq.m. Chronic Kidney Disease: Less than 60 mL/min/1.73 square meters End Stage Renal Disease: Less than 15 mL/min/1.73 square meters Performed By: #### A DIFF, GFR, MDW, LIP, CMP, ANEU, CBC #### [place] [address] .MDWon 11-05-2023 Monocyte Distribution Width 18.53 Normal 0.00-20. 00 [facility] ([place]) Comment on above: Result Comment: For ED adult patients suspected of sepsis, MDW<=20.0 does not rule out sepsis or risk of sepsis Performed By: #### A DIFF, GFR, MDW, LIP, CMP, ANEU, CBC #### [place] [address] .NEUABSon 11-05-2023 Neutrophil, Absolute 10.6 10 3/mcL High 2.9-6.2 [facility] ([place]) Comment on above: Performed By: #### A DIFF, GFR, MDW, LIP, CMP, ANEU, CBC #### [place] [address] CBCon 11-05-2023 Erythrocyte distribution width (RBC) [Ratio] 17.0 % High 11.5-14.5 [facility] ([place]) Comment on above: Performed By: #### A DIFF, GFR, MDW, LIP, CMP, ANEU, CBC #### [place] [address] Hematocrit (Bld) [Volume fraction] 36.9 % Low 37.0-47.0 [facility] ([place]) Comment on above: Performed By: #### A DIFF, GFR, MDW, LIP, CMP, ANEU, CBC #### [place] [address] Hgb 12.2 G/dL Normal 12.0-16.0 [facility] ([place]) Comment on above: Performed By: #### A DIFF, GFR, MDW, LIP, CMP, ANEU, CBC #### [place] [address] MCH (RBC) [Entitic mass] 25.4 pg Low 27.0-31.2 [facility] ([place]) Comment on above: Performed By: #### A DIFF, GFR, MDW, LIP, CMP, ANEU, CBC #### [address] [address] MCHC 33.1 G/dL Normal 33.0-37.0 [facility] ([place]) Comment on above: Performed By: #### A DIFF, GFR, MDW, LIP, CMP, ANEU, CBC #### [address] [address] MCV (RBC) [Entitic vol] 76.8 fL Low 80.0-94.0 [facility] ([place]) Comment on above: Performed By: #### A DIFF, GFR, MDW, LIP, CMP, ANEU, CBC #### [address] [address] Platelet 386 10 3/mcL Normal 130-400 [facility] ([place]) Comment on above: Performed By: #### A DIFF, GFR, MDW, LIP, CMP, ANEU, CBC #### [address] [address] Platelet mean volume (Bld) [Entitic vol] 7.7 fL Normal 7.4-10.4 [facility] ([place]) Comment on above: Performed By: #### A DIFF, GFR, MDW, LIP, CMP, ANEU, CBC #### [address] [address] RBC 4.81 10 6/mcL Normal 4.20-5.40 [facility] ([place]) Comment on above: Performed By: #### A DIFF, GFR, MDW, LIP, CMP, ANEU, CBC #### [address] [address] WBC 12.0 10 3/mcL High 4.6-10.8 [facility] ([place]) Comment on above: Performed By: #### A DIFF, GFR, MDW, LIP, CMP, ANEU, CBC #### [place] [id number] CMPon 11-05-2023 Albumin Level 4.0 G/dL Normal 3.5-5.0 [facility] ([place]) Comment on above: Performed By: #### A DIFF, GFR, MDW, LIP, CMP, ANEU, CBC #### [address] [address] Albumin/Globulin [Mass ratio] 1.3 {ratio} Normal 1.1-2.5 [facility] ([place]) Comment on above: Performed By: #### A DIFF, GFR, MDW, LIP, CMP, ANEU, CBC #### [address] [address] ALP [Catalytic activity/Vol] 107 U/L Normal 40-135 [facility] ([place]) Comment on above: Performed By: #### A DIFF, GFR, MDW, LIP, CMP, ANEU, CBC #### [address] [address] ALT [Catalytic activity/Vol] 81 U/L High 14-59 [facility] ([place]) Comment on above: Performed By: #### A DIFF, GFR, MDW, LIP, CMP, ANEU, CBC #### [address] [address] AST [Catalytic activity/Vol] 115 U/L High 10-40 [facility] ([place]) Comment on above: Performed By: #### A DIFF, GFR, MDW, LIP, CMP, ANEU, CBC #### [address] [address] Bili Total 1.0 mg/dL Normal 0.2-1.0 [facility] ([place]) Comment on above: Result Comment: Use of this assay is not recommended for patients undergoing treatment with eltrombopag due to the potential for falsely elevated results. Performed By: #### A DIFF, GFR, MDW, LIP, CMP, ANEU, CBC #### [address] [address] BUN/Creatinine Ratio 11 ratio Normal 7-27 [facility] ([place]) Comment on above: Performed By: #### A DIFF, GFR, MDW, LIP, CMP, ANEU, CBC #### [place] [address] [place], [place] [address] Calcium [Mass/Vol] 9.6 mg/dL Normal 8.4-10.2 [facility] ([place]) Comment on above: Performed By: #### A DIFF, GFR, MDW, LIP, CMP, ANEU, CBC #### [address] [address] Chloride [Moles/Vol] 101 mmol/L Normal 98-107 [facility] ([place]) Comment on above: Performed By: #### A DIFF, GFR, MDW, LIP, CMP, ANEU, CBC #### [address] [address] CO2 [Moles/Vol] 29 mmol/L Normal 22-29 [facility] ([place]) Comment on above: Performed By: #### A DIFF, GFR, MDW, LIP, CMP, ANEU, CBC #### [place] [id number] Creatinine [Mass/Vol] 0.66 mg/dL Normal 0.55-1.02 [facility] ([place]) Comment on above: Performed By: #### A DIFF, GFR, MDW, LIP, CMP, ANEU, CBC #### [address] [address] Electrolyte Balance 7.0 mEq/L Normal 4.0-15.0 [facility] [place] Comment on above: Performed By: #### A DIFF, GFR, MDW, LIP, CMP, ANEU, CBC #### [address] [address] Globulin 3.0 G/dL Normal [facility] ([place]) Comment on above: Performed By: #### A DIFF, GFR, MDW, LIP, CMP, ANEU, CBC #### [address] [address] Glucose [Mass/Vol] 103 mg/dL Normal 70-105 [facility] ([place]) Comment on above: Performed By: #### A DIFF, GFR, MDW, LIP, CMP, ANEU, CBC #### [address] [address] Potassium [Moles/Vol] 4.0 mmol/L Normal 3.5-5.1 [facility] ([place]) Comment on above: Performed By: #### A DIFF, GFR, MDW, LIP, CMP, ANEU, CBC #### [address] [address] Sodium [Moles/Vol] 137 mmol/L Normal 136-145 [facility] ([place]) Comment on above: Performed By: #### A DIFF, GFR, MDW, LIP, CMP, ANEU, CBC #### [address] [address] Total Protein 7.0 G/dL Normal 6.4-8.2 [facility] ([place]) Comment on above: Performed By: #### A DIFF, GFR, MDW, LIP, CMP, ANEU, CBC #### [address] [address] Urea nitrogen [Mass/Vol] 7 mg/dL Normal 7-18 [facility] ([place]) Comment on above: Performed By: #### A DIFF, GFR, MDW, LIP, CMP, ANEU, CBC #### [address] [address] CNOVon 11-05-2023 CNOV Office Visit (UCTR ) LIUDMILA WORLEY ([id number]) 1985 F Date Time Provider Department 11/05/23 5:00 PM [facility] During your visit today, we recorded the following information about you: Sulaiman Brooke 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 Patient says it is waxing and waning between a 6 and a 15 out of 10. Patient says she noticed it this morning and seems to be getting worse. Patient did go to the ER initially but they told her to go to urgent care. At this time is best believe that patient should be seen in an ER. Patient was okay with this care plan and will go to a different ER. Allergies As of Date: 11/05/2023 Noted Allergy Reaction SEASONAL ALLERGIES 07/20/2015 14 - Other: See Comments Date Reviewed: 10/03/2023 Reviewed by: Caron Jama LPN - Fully Assessed Primary Visit Diagnosis:Right upper quadrant abdominal pain [R10.11] Other Visit Diagnosis:Flank pain [R10.9] Prescriptions as of 11/05/2023 - ADDERALL 30 mg tablet Take 1 tablet by mouth two times a day for 30 days. - ADDERALL 30 mg tablet Take 1 tablet by mouth two times a day for 30 days. Do not start before November 02, 2023. - ADDERALL 30 mg tablet Take 1 tablet by mouth two times a day for 30 days. Do not start before December 02, 2023. - lisinopril (ZESTRIL) 5 mg tablet Take 1 tablet by mouth once daily. 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] 12/10/2012 Urinary incontinence [R32] 12/10/2012 10/13/2015 Attention deficit disorder (ADD) [F98.8] 03/28/2014 Obesity, unspecified [E66.9] Atypical squamous cells of undetermined signifi*08/08/2015 10/10/2021 Obesity in [O99.210] 09/28/2015 05/21/2016 Group B Streptococcus urinary tract infection a*10/16/2015 05/21/2016 Elevated blood pressure affecting in *04/18/2016 05/21/2016 History of gestational hypertension [Z87.59] 06/04/2018 History of depression [Z86.59] 06/04/2018 Sterilization [Z30.2] 11/11/2018 05/29/2020 Obesity, Class II, BMI 35-39.9 [E66.9] 10/10/2021 Anxiety and depression [F41.9, F32.A] 10/31/2021 Dry eyes [H04.123] 07/10/2022 PCOS (polycystic ovarian syndrome) [E28.2] 01/08/2023 Encounter Status:Closed by SULAIMAN BROOKE on 11/05/23 Normal [facility] LABORATORYOrdered By: SYSTEM SYSTEM on 11-05-2023 Albumin BCP dye [Mass/Vol] 4.0 G/dL Normal 3 .5 - 5.0 G/dL AO ADM SS Albumin/Globulin [Mass ratio] 1.3 {ratio} Normal 1.1 - 2.5 ratio AO ADM SS ALP [Catalytic activity/Vol] 107 U/L Normal 40 - 135 U/L AO ADM SS ALT With P-5'-P [Catalytic activity/Vol] 81 U/L High 14 - 59 U/L AO ADM SS AST With P-5'-P [Catalytic activity/Vol] 115 U/L High 10 - 40 U/L AO ADM SS Basophil, Absolute 0.0 103/mcL Normal 0.0 - 0.2 10^3/mcL AO Workflow SS Basophils/100 WBC (Bld) 0.3 % Normal 0.0 - 2.5 % AO Workflow SS Bilirubin [Mass/Vol] 1.0 mg/dL Normal 0.2 - 1 .0 mg/dL AO ADM SS Comment on above: Interpretive Data: U se of this assay is not recommended for patients undergoing treatment with eltrombopag due to the potential for falsely elevated results. Calcium [Mass/Vol] 9.6 mg/dL Normal 8.4 - 10. 2 mg/dL AO ADM SS Chloride [Moles/Vol] 101 mmol/L Normal 98 - 10 7 mmol/L AO ADM SS CO2 [Moles/Vol] 29 mmol/L Normal 22 - 29 mmol/L AO ADM SS Creatinine [Mass/Vol] 0.66 mg/dL Normal 0.55 - 1.02 mg/dL AO ADM SS Electrolyte Balance 7.0 mEq/L Normal 4.0 - 15 .0 mEq/L AO ADM SS Eosinophil, Absolute 0.0 103/mcL Normal 0.0 - 0 .4 10^3/mcL AO Workflow SS Eosinophils/100 WBC (Bld) 0.3 % Normal 0. 0 - 7.0 % AO Workflow SS Erythrocyte distribution width (RBC) [Ratio] 17.0 % High 11.5 - 14.5 % AO Workflow SS GFR/1.73 sq M.predicted among blacks MDRD (S/P/Bld) [Vol rate/Area] 123 ml/min/1.73sqm Invalid Interpretation Code AO Chemistry S Comment on above: Interpretive Data: GFR Population mean for , Non- Americans Ages 20-29 = 116 mL/min/1.73 sq.m. Ages 30-39 = 107 mL/min/1.73 sq.m. Ages 40-49 = 99 mL/min/1.73 sq.m. Ages 50-59 = 93 mL/min/1.73 sq.m. Ages 60-69 = 85 mL/min/1.73 sq.m. Ages 70+ = 75 mL/min/1.73 sq.m. Chronic Kidney Disease: Less than 60 mL/min/1.73 square meters End Stage Renal Disease: Less than 15 mL/min/1.73 square meters GFR/1.73 sq M.predicted among non-blacks MDRD (S/P/Bld) [Vol rate/Area] 101 ml/min/1.73sqm Invalid Interpretation Code AO Chemistry S Comment on above: Interpretive Data: GFR Population mean for , Non- Americans Ages 20-29 = 116 mL/min/1.73 sq.m. Ages 30-39 = 107 mL/min/1.73 sq.m. Ages 40-49 = 99 mL/min/1.73 sq.m. Ages 50-59 = 93 mL/min/1.73 sq.m. Ages 60-69 = 85 mL/min/1.73 sq.m. Ages 70+ = 75 mL/min/1.73 sq.m. Chronic Kidney Disease: Less than 60 mL/min/1.73 square meters End Stage Renal Disease: Less than 15 mL/min/1.73 square meters Globulin 3.0 G/dL Invalid Interpretation Code AO ADM SS Glucose [Mass/Vol] 103 mg/dL Normal 70 - 105 mg/dL AO ADM SS Hematocrit (Bld) [Volume fraction] 36.9 % Low 37.0 - 47.0 % AO Workflow SS Hemoglobin (Bld) [Mass/Vol] 12.2 G/dL Normal 12.0 - 16.0 G/dL AO Workflow SS Lipase [Catalytic activity/Vol] 43 U/L Normal 16 - 77 U/L AO ADM SS Lymphocyte, Absolute 0.7 103/mcL Low 0.8 - 3 .9 10^3/mcL AO Workflow SS Lymphocytes/100 WBC (Bld) 5.9 % Low 10 .0 - 50.0 % AO Workflow SS MCH (RBC) [Entitic mass] 25.4 pg Low 27. 0 - 31.2 pg AO Workflow SS MCHC 33.1 G/dL Normal 33.0 - 37.0 G/dL AO Workflow SS MCV (RBC) [Entitic vol] 76.8 fL Low 80.0 - 94.0 fL AO Workflow SS Monocyte distribution width Auto (Bld) [Entitic vol] 18.53 1 Normal 0.00 - 20.00 AO Workflow SS Comment on above: Result Comment: For ED adult patients suspected of sepsis, MDW<=20.0 does not rule out sepsis or risk of sepsis Monocyte, Absolute 0.6 103/mcL Normal 0.2 - 1.0 10^3/mcL AO Workflow SS Monocytes/100 WBC (Bld) 5.1 % Normal 1.7 - 13.0 % AO Workflow SS Neutrophil, Absolute 10.6 103/mcL High 2.9 - 6 .2 10^3/mcL AO Workflow SS Neutrophils/100 WBC (Bld) 88.4 % High 37 .0 - 80.0 % AO Workflow SS Platelet mean volume (Bld) [Entitic vol] 7.7 fL Normal 7.4 - 10.4 fL AO Workflow SS Platelets (Bld) [#/Vol] 386 103/mcL Normal 130 - 400 10^3/mcL AO Workflow SS Potassium [Moles/Vol] 4.0 mmol/L Normal 3.5 - 5.1 mmol/L AO ADM SS Protein [Mass/Vol] 7.0 G/dL Normal 6.4 - 8.2 G/dL AO ADM SS RBC (Bld) [#/Vol] 4.81 106/mcL Normal 4.20 - 5.40 10^6/mcL AO Workflow SS Sodium [Moles/Vol] 137 mmol/L Normal 136 - 145 mmol/L AO ADM SS Urea nitrogen [Mass/Vol] 7 mg/dL Normal 7 - 18 mg/dL AO ADM SS Urea nitrogen/Creatinine [Mass ratio] 11 ratio Normal 7 - 27 ratio AO ADM SS WBC (Bld) [#/Vol] 12.0 103/mcL High 4.6 - 10.8 10^3/mcL AO Workflow SS LABORATORYOrdered By: Heather Perry on 11-05-2023 Appearance (U) Clear (11/05/23 5:55 PM) Normal Clear AO Auto Urine SS Bilirubin Ql (U) Negative (11/05/23 5:55 PM) Normal Negative AO Auto Urine SS Color (U) Yellow (11/05/23 5:55 PM) Normal AO Auto Urine SS Glucose Test strip (U) [Mass/Vol] Negative Normal Negative AO Auto Urine SS HCG ( test) Ql Negative (11/05/23 5:55 PM) Normal AO Manual Urine SS Hemoglobin Auto test strip (U) [Mass/Vol] Negative (11/05/23 5:55 PM) Normal Negative AO Auto Urine SS Ketones Ql (U) Negative Normal Negative AO Auto Urine SS test (u) int Not detected Invalid Interpretation Code AO Manual Urine SS UA Leuk Est Negative (11/05/23 5:55 PM) Normal Negative AO Auto Urine SS UA Nitrite Negative (11/05/23 5:55 PM) Normal Negative AO Auto Urine SS UA pH 6.5 (11/05/23 5:55 PM) Normal 5.0 - 8.0 AO Auto Urine SS UA Protein Negative Normal Negative AO Auto Urine SS UA Spec Grav 1.025 (11/05/23 5:55 PM) Normal 1.015-1.02 5 AO Auto Urine SS UA Specimen Type Clean Catch (11/05/23 5:55 PM) Normal AO Auto Urine SS UA Urobilinogen 0.2 E.U./dL Normal 0.2-1.0 AO Auto Urine SS LIPon 11-05-2023 Lipase Level 43 U/L Normal 16-77 [facility] ([place]) Comment on above: Performed By: #### A DIFF, GFR, MDW, LIP, CMP, ANEU, CBC #### [address] [address] PREGUon 11-05-2023 HCG ( test) Ql (U) Negative Normal [facility] ([place]) Comment on above: Performed By: #### U A, PREGU #### [address] [address] test (u) int Not detected Invalid Interpretation Code [facility] ([place]) Comment on above: Performed By: #### U A, PREGU #### [address] [address] UAon 11-05-2023 Color (U) Yellow Normal [facility] ([place]) Comment on above: Performed By: #### U A, PREGU #### [place] [address] Glucose (U) [Mass/Vol] Negative Normal Negative [facility] ([place]) Comment on above: Performed By: #### U A, PREGU #### [address] [address] Ketones Ql (U) Negative Normal Negative [facility] ([place]) Comment on above: Performed By: #### U A, PREGU #### [address] [address] UA Appear Clear Normal Clear [facility] ([place]) Comment on above: Performed By: #### U A, PREGU #### [address] [address] UA Blood Negative Normal Negative [facility] ([place]) Comment on above: Performed By: #### U A, PREGU #### [address] [address] UA Leuk Est Negative Normal Negative [facility] ([place]) Comment on above: Performed By: #### U A, PREGU #### [address] [address] UA Nitrite Negative Normal Negative [facility] ([place]) Comment on above: Performed By: #### U A, PREGU #### [address] [address] UA pH 6.5 Normal 5.0 - 8.0 [facility] ([place]) Comment on above: Performed By: #### U Hasmukh, PREGU #### [address] [address] UA Protein Negative Normal Negative [facility] ([place]) Comment on above: Performed By: #### U A, PREGU #### [address] [address] UA Spec Grav 1.025 Normal 1.015-1.02 5 [facility] ([place]) Comment on above: Performed By: #### U Hasmukh, PREGU #### [address] [address] UA Specimen Type Clean Catch Normal [facility] ([place]) Comment on above: Performed By: #### U Hasmukh, PREGU #### [address] [address] UA Urobilinogen 0.2 E.U./dL Normal 0.2-1.0 [facility] ([place]) Comment on above: Performed By: #### U Hasmukh, PREGU #### [address] [address] Urobilinogen (U) [Mass/Vol] Negative Normal Negative [facility] ([place]) Comment on above: Performed By: #### U Hasmukh, PREGU #### [address] [address] CNOVon 10-03-2023 CNOV Office Visit (INTMWS ) LIUDMILA WORLEY ([id number]) 1985 F Date Time Provider Department 10/03/23 4:20 PM MENA VERNON INTMWS During your visit today, we recorded the following information about you: Temperature Pulse Respiration Blood pressure 98.1 degrees 120/minute 18/minute 138/78 Weight Last Period 98.9 kg 09/30/23 Mena Vernon MD 11/13/2023 10:31 PM Signed This note was created using [employer]. Subjective Liudmila Worley is a 38 year old female. Patient presents with: F/U 3 Month SUBJECTIVE: Liudmila Worley is a 38 year old year old lady here today for 3 month follow up appointment for review of medical conditions. Hard time losing weight. Work hours 10:30 to 7 to 8 PM. Stays up late so gets 5 to 6 hours of sleep. Too much sleep causes back hurting. Has a treadmill. Hard to make time. Adderall works sometimes and other times not. Periods have been heavy first and second days. Iron deficiency noted. PAST MEDICAL HISTORY Diagnosis Date Abnormal Pap smear of cervix 2016 ASCUS pap , negative HPV Adult attention deficit disorder Obesity, unspecified Current Outpatient Medications Medication Sig ADDERALL 30 mg tablet Take 1 tablet by mouth two times a day for 30 days. lisinopril (ZESTRIL) 5 mg tablet Take 1 tablet by mouth once daily. Amphetamine-Dextroamp hetamine (ADDERALL) 30 mg tablet Take 1 tablet by mouth two times a day for 30 days. ADDERALL 30 mg tablet Take 1 tablet by mouth two times a day for 30 days. benzonatate (TESSALON PERLES) 100 mg capsule Take 2 capsules by mouth three times a day as needed. (Patient not taking: Reported on 08/31/2023) Drospirenone-Ethinyl Estradiol (YANIRA, Zahra,) 3-0.02 mg per tablet Take 1 tablet by mouth once daily. (Patient not taking: Reported on 05/29/2023) No current facility-administered medications for this visit. Review of Systems Objective BP 138/78 Pulse 120 Temp 36.7 ?C (98.1 ?F) Resp 18 Wt 98.9 kg (218 lb) LMP 09/30/2023 SpO2 100% BMI 38.62 kg/m? Last 5 Encounter Wt Readings: Date: Wt: 10/03/2023 98.9 kg (218 lb) 08/31/2023 97 kg (213 lb 13.5 oz) 05/29/2023 99.5 kg (219 lb 5.7 oz) 04/22/2023 98 kg (216 lb) 10/22/2022 99.8 kg (220 lb) No waist measurement recorded Estimated body mass index is 38.62 kg/m? as calculated from the following: Height as of 10/22/22: 160 cm (5' 3). Weight as of this encounter: 98.9 kg (218 lb). Last 5 Encounter BP Readings: Date: BP: 10/03/2023 138/78 08/31/2023 155/97[no meds this am[ 05/29/2023 163/120 04/22/2023 138/88 10/22/2022 148/90 Physical Exam Constitutional: Appearance: Normal appearance. She is obese. HENT: Head: Normocephalic. Eyes: Conjunctiva/sclera: Conjunctivae normal. Cardiovascular: Rate and Rhythm: Normal rate and regular rhythm. Heart sounds: Normal heart sounds. Pulmonary: Effort: Pulmonary effort is normal. Breath sounds: Normal breath sounds. Musculoskeletal: Right lower leg: No edema. Left lower leg: No edema. Skin: General: Skin is warm and dry. Neurological: General: No focal deficit present. Mental Status: She is alert and oriented to person, place, and time. Psychiatric: Mood and Affect: Mood normal. Behavior: Behavior normal. Thought Content: Thought content normal. Judgment: Judgment normal. Latest Ref Rng 09/19/2021 10/22/2022 04/22/2023 Protein, Total 6.3 - 8.0 g/dL 7.2 Albumin 3.9 - 4.9 g/dL 4.6 Calcium 8.5 - 10.2 mg/dL 9.3 Bilirubin, Total 0.2 - 1.3 mg/dL 0.4 Alkaline Phosphatase 34 - 123 U/L 92 AST 13 - 35 U/L 19 ALT 7 - 38 U/L 14 Glucose 74 - 99 mg/dL 87 BUN 7 - 21 mg/dL 7 Creatinine 0.58 - 0.96 mg/dL 0.60 Sodium 136 - 144 mmol/L 138 Potassium 3.7 - 5.1 mmol/L 4.2 Chloride 97 - 105 mmol/L 102 CO2 22 - 30 mmol/L 26 Anion Gap 9 - 18 mmol/L 10 eGFR >=60 mL/min/1.73m? 120 WBC 3.70 - 11.00 k/uL 5.47 7.40 4.94 RBC 3.90 - 5.20 m/uL 4.84 4.77 5.08 Hemoglobin 11.5 - 15.5 g/dL 12.8 11.2 (L) 11.8 Hematocrit 36.0 - 46.0 % 38.5 36.0 38.7 MCV 80.0 - 100.0 fL 79.5 (L) 75.5 (L) 76.2 (L) MCH 26.0 - 34.0 pg 26.4 23.5 (L) 23.2 (L) MCHC 30.5 - 36.0 g/dL 33.2 31.1 30.5 RDW-CV 11.5 - 15.0 % 14.7 16.2 (H) 14.8 Platelet Count 150 - 400 k/uL 354 384 447 (H) MPV 9.0 - 12.7 fL 9.5 9.5 9.9 Absolute nRBC <0.01 k/uL <0.01 <0.01 <0.01 Cholesterol, Total <200 mg/dL 241 (H) Triglyceride <150 mg/dL 99 HDL Cholesterol >39 mg/dL 68 Non HDL Cholesterol <130 mg/dL 173 (H) Fasting Time hrs 12 VLDL Cholesterol <30 mg/dL 20 TC:HDL Ratio <5.10 3.54 LDL Cholesterol <100 mg/dL 153 (H) LDL:HDL Ratio <2.54 2.25 Iron 41 - 186 ug/dL 53 TIBC 232 - 386 ug/dL 498 (H) Transferrin Saturation 15.0 - 57.0 % 10.6 (L) TSH 0.270 - 4.200 mIU/L 1.890 1.730 Testosterone <40 ng/dL 28 DHEA-S 60.9 - 337.0 ug/dL 218.5 Hydroxyprogesterone <=206.00 ng/dL 28.26 Ferritin 14.7 - 205.1 ng/mL 11 (more content not included)... Normal [facility] CNOVon 08-31-2023 CNOV Office Visit (UCWSTR ) LIUDMILA WORLEY ([id number]) 1985 F Date Time Provider Department 08/31/23 9:00 AM ADE GASTELUM UCWSTR During your visit today, we recorded the following information about you: Temperature Pulse Respiration Blood pressure 97.3 degrees 87/minute 18/minute 155/97 Weight Last Period 97 kg 08/29/23 Ade Gastelum, FUELER.BONING ROOM WORKER 08/31/2023 9:24 AM Signed This note was created using [employer]. Subjective Liudmila Worley is a 38 year old female. HPI Pt developed a sore throat yesterday and today noted runny nose and body aches. Other family members have similar symptoms. Review of Systems Constitutional: Positive for fatigue. Negative for fever. HENT: Positive for sore throat. Musculoskeletal: Positive for arthralgias. Objective BP 155/97 Pulse 87 Temp 36.3 ?C (97.3 ?F) Resp 18 Wt 97 kg (213 lb 13.5 oz) LMP 08/29/2023 (Exact Date) SpO2 100% BMI 37.88 kg/m? Physical Exam Vitals and nursing note reviewed. Constitutional: General: She is not in acute distress. Appearance: Normal appearance. She is not ill-appearing. HENT: Head: Normocephalic. Right Ear: Tympanic membrane normal. Left Ear: Tympanic membrane normal. Mouth/Throat: Mouth: Mucous membranes are moist. Eyes: Conjunctiva/sclera: Conjunctivae normal. Cardiovascular: Rate and Rhythm: Normal rate and regular rhythm. Pulmonary: Effort: Pulmonary effort is normal. Breath sounds: Normal breath sounds. Musculoskeletal: General: Normal range of motion. Cervical back: Normal range of motion. Skin: General: Skin is warm and dry. Neurological: General: No focal deficit present. Mental Status: She is alert. Psychiatric: Mood and Affect: Mood normal. Behavior: Behavior normal. Assessment and Plan ASSESSMENT/PLAN: 1. Sore throat - ICD9: 462, ICD10: J02.9 - suspect viral - Rapid Strep negative in the office today - Discussed supportive care treatment with fluids, rest and analgesia. - The patient may also use warm salt water gargles, throat lozenges and/or OTC throat spray as needed. - Contagious dz precautions discussed- including considered contagious until on antibiotics for 24 hours - The patient should follow up in one week if symptoms persist or worsen - STREP A MOLECULAR (POC) Ade Gastelum APRN.CNP Allergies As of Date: 08/31/2023 Noted Allergy Reaction SEASONAL ALLERGIES 07/20/2015 14 - Other: See Comments Date Reviewed: 08/31/2023 Reviewed by: Ade Gastelum APRN.CNP - Fully Assessed Reason for Visit: Sore Throat [200] Cmt: Headache, runny nose x 2 days Primary Visit Diagnosis:Sore throat [J02.9] Order(s):STREP A MOLECULAR (POC) [5771095] Order #: [id number]. #:[id number] Prescriptions as of 08/31/2023 - ADDERALL 30 mg tablet Take 1 tablet by mouth two times a day for 30 days. - Amphetamine-Dextroamp hetamine (ADDERALL) 30 mg tablet Take 1 tablet by mouth two times a day for 30 days. - ADDERALL 30 mg tablet Take 1 tablet by mouth two times a day for 30 days. - benzonatate (TESSALON PERLES) 100 mg capsule Take 2 capsules by mouth three times a day as needed. - lisinopril (ZESTRIL) 5 mg tablet Take 1 tablet by mouth once daily. - Drospirenone-Ethinyl Estradiol (YANIRA, 28,) 3-0.02 mg per tablet Take 1 tablet by mouth once daily. Problem List As Of Date 08/31/2023 Noted Resolved Supervision of normal first [Z34.00] 01/12/2010 02/19/2010 Threatened , antepartum [O20.0] 01/12/2010 08/26/2010 Abdominal pain, epigastric [R10.13] 01/12/2010 03/24/2013 Diarrhea [R19.7] 01/12/2010 03/24/2013 Supervision of other high risk pregnancies, fir*02/19/2010 01/29/2019 Urethral diverticulum [N36.1] 12/10/2012 Urinary incontinence [R32] 12/10/2012 10/13/2015 Attention deficit disorder (ADD) [F98.8] 03/28/2014 Obesity, unspecified [E66.9] Atypical squamous cells of undetermined signifi*08/08/2015 10/10/2021 Obesity in [O99.210] 09/28/2015 05/21/2016 Group B Streptococcus urinary tract infection a*10/16/2015 05/21/2016 Elevated blood pressure affecting in *04/18/2016 05/21/2016 History of gestational hypertension [Z87.59] 06/04/2018 History of depression [Z86.59] 06/04/2018 Sterilization [Z30.2] 11/11/2018 05/29/2020 Obesity, Class II, BMI 35-39.9 [E66.9] 10/10/2021 Anxiety and depression [F41.9, F32.A] 10/31/2021 Dry eyes [H04.123] 07/10/2022 PCOS (polycystic ovarian syndrome) [E28.2] 01/08/2023 Encounter Status:Closed by ADE GASTELUM on 08/31/23 Normal [facility] STREP A MOLECULAR (POC)on Procedural Control Valid [facility] Strep A (POCT) Negative Negative [facility] XR Chest PA and Lateralon IMPRESSION: No acute radiographic abnormality. Formula Clerk: ROSALIE Transcribe Date/Time: May 29 2023 4:58P Dictated by : LIUDMILA ZARAGOZA MD This examination was interpreted and the report reviewed and electronically signed by: LIUDMILA ZARAGOZA MD on May 29 2023 5:00PM [facility] DIVISION OF RADIOLOGY * * *Final Report* * * DATE OF EXAM: May 29 2023 4:56PM WOX [id number] - XR CHEST 2V FRONTAL/LAT / PROCEDURE REASON: Acute cough * * * * Physician Interpretation * * * * EXAMINATION: CHEST RADIOGRAPH (2 VIEW FRONTAL & LATERAL) CLINICAL HISTORY: Acute cough MQ: XC2_6 EXAM DATE/TIME: 05/29/2023 4:56 PM COMPARISON: Chest x-ray 04/27/2012 RESULT: Lines, tubes, and devices: None. Lungs and pleura: No consolidation. No lung mass. No pleural effusion. No pneumothorax. Cardiomediastinal silhouette: Normal cardiomediastinal silhouette. Bones and soft tissues: Unremarkable. DIVISION OF RADIOLOGY Provider, Myles Negrete - 05/29/2023 * * *Final Report* * * DATE OF EXAM: May 29 2023 4:56PM WOX [id number] - XR CHEST 2V FRONTAL/LAT / PROCEDURE REASON: Acute cough * * * * Physician Interpretation * * * * EXAMINATION: CHEST RADIOGRAPH (2 VIEW FRONTAL & LATERAL) CLINICAL HISTORY: Acute cough MQ: XC2_6 EXAM DATE/TIME: 05/29/2023 4:56 PM COMPARISON: Chest x-ray 04/27/2012 RESULT: Lines, tubes, and devices: None. Lungs and pleura: No consolidation. No lung mass. No pleural effusion. No pneumothorax. Cardiomediastinal silhouette: Normal cardiomediastinal silhouette. Bones and soft tissues: Unremarkable. IMPRESSION IMPRESSION: No acute radiographic abnormality. Formula Clerk: PSCB Transcribe Date/Time: May 29 2023 4:58P Dictated by : LIUDMILA ZARAGOZA MD This examination was interpreted and the report reviewed and electronically signed by: LIUDMILA ZARAGOZA MD on May 29 2023 5:00PM EST [facility] Radiology Study observation (narrative) [facility] XR Chest PA and LateralOrder ed By: Cc Provider on 05-29-2023 [facility] CBC panel Auto (Bld)on 04-22 Erythrocyte distribution width (RBC) [Ratio] 14.8 % 11.5 - 15.0 % [facility] Hematocrit (Bld) [Volume fraction] 38.7 % 36.0 - 46.0 % [facility] Hemoglobin (Bld) [Mass/Vol] 11.8 g/dL 11.5 - 15.5 g/dL [facility] MCH (RBC) [Entitic mass] 23.2 pg Low 26. 0 - 34.0 pg [facility] MCHC (RBC) [Mass/Vol] 30.5 g/dL 30.5 - 36.0 g/dL [facility] MCV (RBC) [Entitic vol] 76.2 fL Low 80.0 - 100.0 fL [facility] Nucleated RBC (Bld) [#/Vol] <0.01 k/ uL [facility] Platelet mean volume (Bld) [Entitic vol] 9.9 fL 9.0 - 12.7 fL [facility] Platelets (Bld) [#/Vol] 447 10*3/uL High 150 - 400 k/uL [facility] RBC (Bld) [#/Vol] 5.08 10*6/uL 3.90 - 5.20 m/uL [facility] WBC (Bld) [#/Vol] 4.94 10*3/uL 3.70 - 11.00 k/uL [facility] Comprehensive metabolic 2000 panelon 04-22-2023 Albumin [Mass/Vol] 4.6 g/dL 3.9 - 4.9 g/dL [facility] ALP [Catalytic activity/Vol] 92 U/L 34 - 123 U/L [facility] ALT [Catalytic activity/Vol] 14 U/L 7 - 38 U/L [facility] Anion gap [Moles/Vol] 10 mmol/L 9 - 18 mmol/L [facility] AST [Catalytic activity/Vol] 19 U/L 13 - 35 U/L [facility] Bilirubin [Mass/Vol] 0.4 mg/dL 0.2 - 1 .3 mg/dL [facility] Calcium [Mass/Vol] 9.3 mg/dL 8.5 - 10. 2 mg/dL [facility] Chloride [Moles/Vol] 102 mmol/L 97 - 10 5 mmol/L [facility] CO2 [Moles/Vol] 26 mmol/L 22 - 30 mmol/L [facility] Creatinine [Mass/Vol] 0.60 mg/dL 0.58 - 0.96 mg/dL [facility] Estimated Glomerular Filtration Rate 120 mL/min/1.73m >=60 mL/min/1.7 3m [facility] Glucose [Mass/Vol] 87 mg/dL 74 - 99 mg/dL [facility] Potassium [Moles/Vol] 4.2 mmol/L 3.7 - 5.1 mmol/L [facility] Protein [Mass/Vol] 7.2 g/dL 6.3 - 8.0 g/dL [facility] Sodium [Moles/Vol] 138 mmol/L 136 - 144 mmol/L [facility] Urea nitrogen [Mass/Vol] 7 mg/dL 7 - 21 mg/dL [facility] FERRITIN BLDon 04-22-2023 Ferritin [Mass/Vol] 11.4 ng/mL Low 14.7 - 205.1 ng/mL [facility] Iron and Iron binding capaci ty panelon 04-22-2023 Iron [Mass/Vol] 53 ug/dL 41 - 186 ug/dL [facility] Iron binding capacity [Mass/Vol] 498 ug/dL High 232 - 386 ug/dL [facility] Iron/TIBC [Molar ratio] 10.6 % Low 15.0 - 57.0 % [facility] Lipid 1996 panelon Cholesterol [Mass/Vol] 241 mg/dL High <200 mg/dL [facility] Cholesterol in HDL [Mass/Vol] 68 mg/dL >39 mg/dL [facility] Cholesterol in LDL [Mass/Vol] 153 mg/dL High <100 mg/dL [facility] Cholesterol in LDL/Cholesterol in HDL [Mass ratio] 2.25 {ratio} <2.54 [facility] Cholesterol in VLDL [Mass/Vol] 20 mg/dL <30 mg/dL [facility] Cholesterol non HDL [Mass/Vol] 173 mg/dL High <130 mg/dL [facility] Cholesterol.total/Cholester ol in HDL [Mass ratio] 3.54 {ratio} <5.10 [facility] Fasting Time 12 hrs [facility] Triglyceride [Mass/Vol] 99 mg/dL <150 mg/dL [facility] CBC panel Auto (Bld)on 10-22 Erythrocyte distribution width (RBC) [Ratio] 16.2 % High 11.5 - 15.0 % [facility] Hematocrit (Bld) [Volume fraction] 36.0 % 36.0 - 46.0 % [facility] Hemoglobin (Bld) [Mass/Vol] 11.2 g/dL Low 11.5 - 15.5 g/dL [facility] MCH (RBC) [Entitic mass] 23.5 pg Low 26. 0 - 34.0 pg [facility] MCHC (RBC) [Mass/Vol] 31.1 g/dL 30.5 - 36.0 g/dL [facility] MCV (RBC) [Entitic vol] 75.5 fL Low 80.0 - 100.0 fL [facility] Nucleated RBC (Bld) [#/Vol] <0.01 k/ uL [facility] Platelet mean volume (Bld) [Entitic vol] 9.5 fL 9.0 - 12.7 fL [facility] Platelets (Bld) [#/Vol] 384 10*3/uL 150 - 400 k/uL [facility] RBC (Bld) [#/Vol] 4.77 10*6/uL 3.90 - 5.20 m/uL [facility] WBC (Bld) [#/Vol] 7.40 10*3/uL 3.70 - 11.00 k/uL [facility] DHEA-S [facility] 10-22-2022 DHEA-S [Mass/Vol] 218.5 ug/dL 60.9 - 337.0 ug/dL [facility] TESTOSTERONE TOTALon 023 Testosterone [Mass/Vol] 28 ng/dL <40 ng/dL C [facility] TSH [facility] 10-22-2022 TSH Qn 1.730 m[IU]/L 0.270 - 4.200 mIU/L [facility] MAMMO DIAGNOSTIC WITH MATA B ILATERALon 02-15-2022 MAMMO DIAGNOSTIC WITH MATA BILATERAL EXAM: MAMMO DIAGNOSTIC WITH MATA BILATERAL, US BREAST LIMITED UNILATERAL RIGHT, 02/15/2022 09:49 AM (accession [id number]), 02/15/2022 09:56 AM (accession [id number]) CLINICAL INDICATIONS: Palpable abnormality 10:00 right breast COMPARISON: No prior studies available for comparison. MAMMOGRAM TECHNIQUE: 2-D MLO and CC views were obtained of the bilateral breasts. 3-D MLO and CC digital tomosynthesis images were also acquired. Computer aided detection was utilized. MAMMOGRAPHIC FINDINGS: The breasts have scattered areas of fibroglandular density. No suspicious masses, suspicious calcifications or areas of distortion identified in either breast. ULTRASOUND TECHNIQUE: Multiple real-time sinclair-scale images of the right breast in the 10 o'clock axis are performed. Color Doppler was used to assess vascular flow. ULTRASOUND FINDINGS: There is no evidence of mass lesions, architectural distortion, or abnormal blood flow. IMPRESSION: Negative bilateral mammogram and negative targeted right breast ultrasound. Clinical follow-up and management of the patient's symptoms recommended BI-RADS: 1: Negative Recommendation: Clinical correlation/managemen t. Recommendation Laterality: Right Normal [facility] MG Breast - bilateral Diagno sticon 02-15-2022 Sha Rodríguez MD - 02/15/2022 EXAM: MAMMO DIAGNOSTIC WITH MATA BILATERAL, US BREAST LIMITED UNILATERAL RIGHT, 02/15/2022 09:49 AM (accession [id number]), 02/15/2022 09:56 AM (accession [id number]) CLINICAL INDICATIONS: Palpable abnormality 10:00 right breast COMPARISON: No prior studies available for comparison. MAMMOGRAM TECHNIQUE: 2-D MLO and CC views were obtained of the bilateral breasts. 3-D MLO and CC digital tomosynthesis images were also acquired. Computer aided detection was utilized. MAMMOGRAPHIC FINDINGS: The breasts have scattered areas of fibroglandular density. No suspicious masses, suspicious calcifications or areas of distortion identified in either breast. ULTRASOUND TECHNIQUE: Multiple real-time sinclair-scale images of the right breast in the 10 o'clock axis are performed. Color Doppler was used to assess vascular flow. ULTRASOUND FINDINGS: There is no evidence of mass lesions, architectural distortion, or abnormal blood flow. IMPRESSION IMPRESSION: Negative bilateral mammogram and negative targeted right breast ultrasound. Clinical follow-up and management of the patient's symptoms recommended BI-RADS: 1: Negative Recommendation: Clinical correlation/managemen t. Recommendation Laterality: Right [facility] Radiology Study observation (narrative) [facility] No Panel Informationon 02-15 IMPRESSION: Negative bilateral mammogram and negative targeted right breast ultrasound. Clinical follow-up and management of the patient's symptoms recommended BI-RADS: 1: Negative Recommendation: Clinical correlation/managemen t. Recommendation Laterality: Right OLOGY EXAM: MAMMO DIAGNOSTIC WITH MATA BILATERAL, US BREAST LIMITED UNILATERAL RIGHT, 02/15/2022 09:49 AM (accession [id number]), 02/15/2022 09:56 AM (accession [id number]) CLINICAL INDICATIONS: Palpable abnormality 10:00 right breast COMPARISON: No prior studies available for comparison. MAMMOGRAM TECHNIQUE: 2-D MLO and CC views were obtained of the bilateral breasts. 3-D MLO and CC digital tomosynthesis images were also acquired. Computer aided detection was utilized. MAMMOGRAPHIC FINDINGS: The breasts have scattered areas of fibroglandular density. No suspicious masses, suspicious calcifications or areas of distortion identified in either breast. ULTRASOUND TECHNIQUE: Multiple real-time sinclair-scale images of the right breast in the 10 o'clock axis are performed. Color Doppler was used to assess vascular flow. ULTRASOUND FINDINGS: There is no evidence of mass lesions, architectural distortion, or abnormal blood flow. RADIOLOGY No Panel InformationOrdered By: Sha Rodríguez on 02-15-2022 [facility] Work Phone: US BREAST LIMITED UNILATERAL RIGHTon 02-15-2022 US BREAST LIMITED UNILATERAL RIGHT EXAM: MAMMO DIAGNOSTIC WITH MATA BILATERAL, US BREAST LIMITED UNILATERAL RIGHT, 02/15/2022 09:49 AM (accession [id number]), 02/15/2022 09:56 AM (accession [id number]) CLINICAL INDICATIONS: Palpable abnormality 10:00 right breast COMPARISON: No prior studies available for comparison. MAMMOGRAM TECHNIQUE: 2-D MLO and CC views were obtained of the bilateral breasts. 3-D MLO and CC digital tomosynthesis images were also acquired. Computer aided detection was utilized. MAMMOGRAPHIC FINDINGS: The breasts have scattered areas of fibroglandular density. No suspicious masses, suspicious calcifications or areas of distortion identified in either breast. ULTRASOUND TECHNIQUE: Multiple real-time sinclair-scale images of the right breast in the 10 o'clock axis are performed. Color Doppler was used to assess vascular flow. ULTRASOUND FINDINGS: There is no evidence of mass lesions, architectural distortion, or abnormal blood flow. IMPRESSION: Negative bilateral mammogram and negative targeted right breast ultrasound. Clinical follow-up and management of the patient's symptoms recommended BI-RADS: 1: Negative Recommendation: Clinical correlation/managemen t. Recommendation Laterality: Right Normal [facility] US Breast - right limitedon 02-15-2022 Radiology Study observation (narrative) [facility] Basophil percentageon 2021 WBC (Bld) [#/Vol] 4.9 10*3/uL 4.4-11.0 [facility] Work Phone: Blood erythrocytes count (nu mber/volume)on 11-09-2021 RBC (Bld) [#/Vol] 4.58 10*6/uL 4.2-5.4 [facility] Work Phone: Blood hemoglobin measurement (mass/volume)on 11-09-2021 Hemoglobin (Bld) [Mass/Vol] 11.9 g/dL 12.0-15. 0 [facility] Work Phone: Blood platelet mean volumeon 11-09-2021 Platelet mean volume (Bld) [Entitic vol] 9.5 fL 6.2-12.0 [facility] Work Phone: Determination of erythrocyte mean corpuscular volume (MCV)on 11-09-2021 MCV (RBC) [Entitic vol] 81.4 fL 81-99 [facility] Work Phone: Hematocrit Auto (Bld) [Volum e fraction]on 11-09-2021 Hematocrit (Bld) [Volume fraction] 37.3 % 37-47 [facility] Work Phone: Laboratory - Chemistry and C hemistry - challengeon 11-09-2021 HCG ( test) Ql (U) Negative [facility] Work Phone: Comment on above: Very dilute urine sp ecimens, as indicated by a low specificgravity, may not contain sales representative raw fibers levels of hCG. If is still suspected, a first morning urinespecimen should be collected 48 hours later and tested. Laboratory - Hematology and Cell countson 11-09-2021 Erythrocyte distribution width (RBC) [Entitic vol] 42.7 fL 35.1-43.9 [facility] Work Phone: Erythrocyte distribution width (RBC) [Ratio] 14.6 % 11.6-14.6 [facility] Work Phone: MCH (RBC) [Entitic mass] 26.0 pg 27.0-32.0 [facility] Work Phone: MCHC Auto (RBC) [Mass/Vol]on 11-09-2021 MCHC (RBC) [Mass/Vol] 31.9 g/dL 32-36 [facility] Work Phone: Platelets bldon 11-09-2021 Platelets (Bld) [#/Vol] 351 10*3/uL 150-450 [facility] Work Phone: HCG QUAL UR B/Oon 10-10-2021 status Negative neg - pos [facility] Quality Check Yes [facility] CBC panel Auto (Bld)on 09-19 Erythrocyte distribution width (RBC) [Ratio] 14.7 % 11.5 - 15.0 % [facility] Hematocrit (Bld) [Volume fraction] 38.5 % 36.0 - 46.0 % [facility] Hemoglobin (Bld) [Mass/Vol] 12.8 g/dL 11.5 - 15.5 g/dL [facility] MCH (RBC) [Entitic mass] 26.4 pg 26. 0 - 34.0 pg [facility] MCHC (RBC) [Mass/Vol] 33.2 g/dL 30.5 - 36.0 g/dL [facility] MCV (RBC) [Entitic vol] 79.5 fL Low 80.0 - 100.0 fL [facility] Nucleated RBC (Bld) [#/Vol] 10*3/uL <0.01 k/ uL [facility] Platelet mean volume (Bld) [Entitic vol] 9.5 fL 9.0 - 12.7 fL [facility] Platelets (Bld) [#/Vol] 354 10*3/uL 150 - 400 k/uL [facility] RBC (Bld) [#/Vol] 4.84 10*6/uL 3.90 - 5.20 m/uL [facility] WBC (Bld) [#/Vol] 5.47 10*3/uL 3.70 - 11.00 k/uL [facility] Absolute lymphocyte counton 07-27-2021 Lymphocytes Auto (Unsp spec) [#/Vol] 0.61 10*3/uL 0.83-4.51 [facility] Work Phone: Basophil percentageon 2021 Basophil percentage 0-5 SEEN /hpf 0-5 [facility] Work Phone: Comment on above: Previous reported re sult: 0 SEEN /hpfEdited by: ALVARO on 07/27/21:1410 AMENDED REPORT 07/27/21 1410 WBC previously reported as: 0 SEEN /hpf Basophils/100 WBC (Bld) 0.2 % 0-1 [facility] Work Phone: Bilirubin [Mass/Vol] 0.50 mg/dL 0.20-1.00 [facility] Work Phone: [phone] Comment on above: For patients on eltr ombopag therapy, use of Dimension [place] TBIL is not recommended. Chloride [Moles/Vol] 105 mmol/L 98-107 [facility] Work Phone: Eosinophils/100 WBC (Bld) 0.3 % 0-5 [facility] Work Phone: Glucose [Mass/Vol] 92 mg/dL 74-106 [facility] Work Phone: Neutrophils (Bld) [#/Vol] 5.2 10*3/uL 2.0-7.7 [facility] Work Phone: [phone] Neutrophils/100 WBC (Bld) 81.0 % 47-70 [facility] Work Phone: Potassium [Moles/Vol] 3.6 mmol/L 3.5-5.1 [facility] Work Phone: Protein [Mass/Vol] 7.8 g/dL 6.4-8.2 [facility] Work Phone: [phone] Sodium [Moles/Vol] 138 mmol/L 136-145 [facility] Work Phone: WBC (Bld) [#/Vol] 6.4 10*3/uL 4.4-11.0 [facility] Work Phone: [phone] Bilirubin Test strip Ql (U)o n 07-27-2021 Bilirubin Ql (U) Negative Negative [facility] Work Phone: Blood erythrocytes count (nu mber/volume)on 07-27-2021 RBC (Bld) [#/Vol] 5.20 10*6/uL 4.2-5.4 [facility] Work Phone: Blood hemoglobin measurement (mass/volume)on 07-27-2021 Hemoglobin (Bld) [Mass/Vol] 13.8 g/dL 12.0-15. 0 [facility] Work Phone: Blood lymphocytes/100 leukoc yteson 07-27-2021 Lymphocytes/100 WBC (Bld) 9.5 % 19-41 [facility] Work Phone: Blood monocytes/100 leukocyt eson 07-27-2021 Monocytes/100 WBC (Bld) 8.7 % 0-10 [facility] Work Phone: Blood platelet mean volumeon 07-27-2021 Platelet mean volume (Bld) [Entitic vol] 9.6 fL 6.2-12.0 [facility] Work Phone: Determination of erythrocyte mean corpuscular volume (MCV)on 07-27-2021 MCV (RBC) [Entitic vol] 79.6 fL 81-99 [facility] Work Phone: Hematocrit Auto (Bld) [Volum e fraction]on 07-27-2021 Hematocrit (Bld) [Volume fraction] 41.4 % 37-47 [facility] Work Phone: Ketones Test strip Ql (U)on 07-27-2021 Ketones Ql (U) 5 mg/dl Negative [facility] Work Phone: Laboratory - Chemistry and C hemistry - challengeon 07-27-2021 HCG ( test) Ql (U) Negative [facility] Work Phone: Comment on above: Very dilute urine sp ecimens, as indicated by a low specificgravity, may not contain sales representative raw fibers levels of hCG. If is still suspected, a first morning urinespecimen should be collected 48 hours later and tested. ALP [Catalytic activity/Vol] 85 U/L 45-117 [facility] Work Phone: ALT [Catalytic activity/Vol] 20 U/L 13-56 [facility] Work Phone: CO2 [Moles/Vol] 25.0 mmol/L 21.0-32.0 [facility] Work Phone: Globulin (S) [Mass/Vol] 3.6 g/dL 2.2-4.2 [facility] Work Phone: Lipase [Catalytic activity/Vol] 139 U/L 73-393 [facility] Work Phone: Urea nitrogen/Creatinine [Mass ratio] 9.9 mg/mg 10-20 [facility] Work Phone: Laboratory - Hematology and Cell countson 07-27-2021 Erythrocyte distribution width (RBC) [Entitic vol] 40.9 fL 35.1-43.9 [facility] Work Phone: Erythrocyte distribution width (RBC) [Ratio] 14.1 % 11.6-14.6 [facility] Work Phone: [phone] Immature granulocytes/100 WBC (Bld) 0.300 % 0.0-0.9 [facility] Work Phone: Comment on above: IG% - Immature Granu locytes (promyelocytes, myelocytes and metamyelocytes) > 1% indicates that a LEFT SHIFT is Present. MCH (RBC) [Entitic mass] 26.5 pg 27.0-32.0 [facility] Work Phone: Nucleated RBC/100 WBC (Bld) [Ratio] 0 % 0-5 [facility] Work Phone: MCHC Auto (RBC) [Mass/Vol]on 07-27-2021 MCHC (RBC) [Mass/Vol] 33.3 g/dL 32-[address] [facility] Work Phone: Mucus LM Ql (Urine sed)on Mucus Ql (Urine sed) 0 SEEN /hpf [facility] Work Phone: Nitrite Test strip Ql (U)on 07-27-2021 Nitrite Ql (U) Negative Negative [facility] Work Phone: No Panel Informationon 07-27 Estimated Creatinine Clearance Calc 103.75 ml/min [facility] Work Phone: Estimated GFR (MDRD) Amer 145 mL/min >60 [facility] Work Phone: Comment on above: GFR Calc Estimated GFR (MDRD) Non-Af Amer 120 mL/min >60 [facility] Work Phone: Comment on above: Non- GFR Calc Platelets bldon 07-27-2021 Platelets (Bld) [#/Vol] 343 10*3/uL 150-450 [facility] Work Phone: Protein Test strip Ql (U)on 07-27-2021 Protein Ql (U) 30 mg/dl Negative [facility] Work Phone: Serum or plasma albumin brian urement (mass/volume)on 07-27-2021 Albumin [Mass/Vol] 4.2 g/dL 3.2-5.0 [facility] Work Phone: Serum or plasma albumin/glob ulin mass ratioon 07-27-2021 Albumin/Globulin [Mass ratio] 1.2 {ratio} 0.9-2.4 [facility] Work Phone: Serum or plasma calcium brian urement (mass/volume)on 07-27-2021 Calcium [Mass/Vol] 9.1 mg/dL 8.5-10.1 [facility] Work Phone: Serum or plasma creatinine m easurement (mass/volume)on 07-27-2021 Creatinine [Mass/Vol] 0.61 mg/dL 0.55-1.02 [facility] Work Phone: Comment on above: The validity of the calculated GFR & GFRAA in patients over 70 years has not been determined. Clinical correlation is essential. Serum or plasma urea nitroge n measurement (mass/volume)on 07-27-2021 Urea nitrogen [Mass/Vol] 6 mg/dL 7-18 [facility] Work Phone: Squamous epithelial cells de tection in urine sediment by light microscopyon 07-27-2021 Epithelial cells.squamous LM Ql (Urine sed) 0-5 SEEN /hpf 5-10 [facility] Work Phone: Comment on above: Previous reported re sult: 0 SEEN /hpfEdited by: ALVARO on 07/27/21:1412 AMENDED REPORT 07/27/21 141 SQUAM EPI previously reported as: 0 SEEN /hpf Thin prep Papanicolaou smear with manual screeningon 07-27-2021 Thin prep Papanicolaou smear with manual screening 12 U/L 15-37 [facility] Work Phone: Thin prep Papanicolaou smear with manual screening 8 5-15 [facility] Work Phone: Urine blood detectionon 07-09 0-2021 RBC Ql (U) Negative Negative [facility] Work Phone: RBC Ql (U) 0 SEEN /hpf 0-5 [facility] Work Phone: Urine clarityon 07-27-2021 Clarity (U) Sl. Cloudy Clear [facility] Work Phone: Urine color determinationon 07-27-2021 Color (U) Yellow Yellow [facility] Work Phone: Urine glucose detectionon Glucose Ql (U) Normal mg/dl Normal [facility] Work Phone: Urine leukocyte esterase det ection by dipstickon 07-27-2021 Leukocyte esterase Test strip Ql (U) 25 /ul Negative [facility] Work Phone: Urine pHon 07-27-2021 pH (U) 6.0 [pH] 5.0 - 8.0 [facility] Work Phone: Urine sediment bacteria coun t by microscopy (number/high power field)on 05-20-2022 Bacteria LM.HPF (Urine sed) [#/Area] RARE /hpf None Seen [facility] Work Phone: Comment on above: Previous reported re sult: 0 SEEN /hpfEdited by: ALVARO on 07/27/21:1413 AMENDED REPORT 07/27/211412 BACTERIA previously reported as: 0 SEEN /hpf Urine specific gravity measu rementon 07-27-2021 Specific gravity (U) [Rel density] 1.020 1.002-1.[address] [facility] Work Phone: Urobilinogen Auto test strip Ql (U)on 07-27-2021 Urobilinogen Ql (U) Normal mg/dl Normal [facility] Work Phone: Vital Signs Date Time Vital Sign Value Performing Clinician Facility 07-21-2024 16:07-0400 Body height 160 cm Jaylan Syed MD Work Phone: [facility] 07-21-2024 16:07-0400 Body mass index (BMI) [Ratio] 38.09 kg/m2 Jaylan Syed MD Work Phone: [facility] 07-21-2024 16:07-0400 Body weight 97.52 kg Jaylan Syed MD Work Phone: [facility] 07-21-2024 16:07-0400 Diastolic blood pressure 88 mm[Hg] Jaylan Syed MD Work Phone: [facility] 07-21-2024 16:07-0400 Systolic blood pressure 134 mm[Hg] Jaylan Syed MD Work Phone: [facility] 07-05-2024 14:46-0400 Body temperature 97.2 [degF] Dr. Mena Vernon MD Work Phone: [facility] 07-05-2024 14:46-0400 Diastolic blood pressure 102 mm[Hg] Dr. Mena Vernon MD Work Phone: [facility] 07-05-2024 14:46-0400 Heart rate 78 /min Dr. Mena Vernon MD Work Phone: [phone])[phone] [place] [address] 07-05-2024 14:46-0400 Respiratory rate 16 /min Dr. Mena Vernon MD Work Phone: [phone])397-753360 [place] [address] 07-05-2024 14:46-0400 SaO2% (BldA) [Mass fraction] 100 % Dr. Mena Vernon MD Work Phone: [phone] [place] [address] 07-05-2024 14:46-0400 Systolic blood pressure 138 mm[Hg] Dr. Mena Vernon MD Work Phone: [phone] [place] [address] 07-05-2024 11:05-0400 Body height 157.[address] Mena Vernon MD Work Phone: [phone] [place] [address] 07-05-2024 11:05-0400 Body mass index (BMI) [Ratio] 40 kg/m2 Dr. Mena Vernon MD Work Phone: [phone])[phone] [place] [address] 07-05-2024 11:05-0400 Body weight 99.[address] Mena Vernon MD Work Phone: [phone] [place] [address] 07-04-2024 09:46-0400 Body temperature 98.3 [degF] Dr. Mena Vernon MD Work Phone: [phone] [place] [address] 07-04-2024 09:46-0400 Diastolic blood pressure 68 mm[Hg] Dr. Mena Vernon MD Work Phone: [phone])[phone] [place] [address] 07-04-2024 09:46-0400 Heart rate 72 /min Dr. Mena Vernon MD Work Phone: [phone] [place] [address] 07-04-2024 09:46-0400 Respiratory rate 18 /min Dr. Mena Vernon MD Work Phone: [phone] [place] [address] 07-04-2024 09:46-0400 SaO2% (BldA) [Mass fraction] 100 % Dr. Mena Vernon MD Work Phone: [phone] [place] [address] 07-04-2024 09:46-0400 Systolic blood pressure 116 mm[Hg] Dr. Mena Vernon MD Work Phone: [facility] 07-04-2024 06:20-0400 Body height 157.[address] Mena Vernon MD Work Phone: [facility] 07-04-2024 06:20-0400 Body mass index (BMI) [Ratio] 40 kg/m2 Dr. Mena Vernon MD Work Phone: [facility] 07-04-2024 06:20-0400 Body weight 99.[address] Mena Vernon MD Work Phone: [facility] 04-19-2024 08:46-0500 Body mass index (BMI) [Ratio] 38.27 kg/m2 Mena Vernon MD Work Phone: [facility] 04-19-2024 08:46-0500 Body weight 98 kg Mena Vernon MD Work Phone: [facility] 04-19-2024 08:46-0500 Diastolic blood pressure 84 mm[Hg] Mena Vernon MD Work Phone: [facility] 04-19-2024 08:46-0500 Heart rate 97 /min Mena Vernon MD Work Phone: [facility] 04-19-2024 08:46-0500 Respiratory rate 16 /min Mena Vernon MD Work Phone: [facility] 04-19-2024 08:46-0500 Systolic blood pressure 128 mm[Hg] Mena Vernon MD Work Phone: [facility] 04-14-2024 19:52-0500 Body mass index (BMI) [Ratio] 38.94 kg/m2 Aliza Mcnamara APRN.[employer]ONING ROOM WORKER Work Phone: [facility] 04-14-2024 19:52-0500 Body temperature 97.39 [degF] Aliza Mcnamara APRN.CNP Work Phone: [facility] 04-14-2024 19:52-0500 Body weight 99.7 kg Aliza Randallk FUELER.[employer]ING [employer] WORKER Work Phone: [facility] 04-14-2024 19:52-0500 Diastolic blood pressure 82 mm[Hg] Aliza Naima FUELER.[employer]ING [employer]OM WORKER Work Phone: [facility] 04-14-2024 19:52-0500 Heart rate 102 /min Aliza Naima FUELER.[employer]ING [employer] WORKER Work Phone: [facility] 04-14-2024 19:52-0500 Respiratory rate 16 /min Aliza Naima FUELER.[employer]ING [employer]OM WORKER Work Phone: [facility] 04-14-2024 19:52-0500 SaO2% (BldA) [Mass fraction] 96 % Aliza Randallk FUELER.[employer]ING [employer] WORKER Work Phone: [facility] 04-14-2024 19:52-0500 Systolic blood pressure 136 mm[Hg] Aliza Naima FUELER.[employer]ING [employer] WORKER Work Phone: [facility] 11-05-2023 17:15-0400 Blood Pressure Location DIEGO FOX MD [facility] 11-05-2023 17:15-0400 Blood Pressure Method DIEGO FOX MD [facility] 11-05-2023 17:15-0400 Body height 157.5 cm DIEGO FOX MD [facility] 11-05-2023 17:15-0400 Body temperature 97.88 [degF] DIE[facility] [facility] 11-[facility]-2023 17:15-0400 Body weight 98 kg DIEGO FOX MD [facility] 11-05-2023 17:15-0400 Diastolic Blood Pressure Non-Invasive 90 mm[Hg] DIEGO FOX MD [facility] 11-05-2023 17:15-0400 Heart rate 95 /min DIEGO FOX MD [facility] 11-05-2023 17:15-0400 Respiratory rate 16 /min DIEGO FOX MD [facility] 11-05-2023 17:15-0400 Systolic Blood Pressure Non-Invasive 128 mm[Hg] DIEGO FOX MD [facility] 10-03-2023 16:56-0400 Body mass index (BMI) [Ratio] 38.62 kg/m2 Mena Vernon MD Work Phone: [facility] 10-03-2023 16:56-0400 Body temperature 98.1 [degF] Mena Vernon MD Work Phone: [facility] 10-03-2023 16:56-0400 Body weight 98.88 kg Mena Vernon MD Work Phone: [facility] 10-03-2023 16:56-0400 Diastolic blood pressure 78 mm[Hg] Mena Vernon MD Work Phone: [facility] 10-03-2023 16:56-0400 Heart rate 120 /min Mena Vernon MD Work Phone: [facility] 10-03-2023 16:56-0400 Respiratory rate 18 /min Mena Vernon MD Work Phone: [facility] 10-03-2023 16:56-0400 SaO2% (BldA) [Mass fraction] 100 % Mena Veronn MD Work Phone: [facility] 10-03-2023 16:56-0400 Systolic blood pressure 138 mm[Hg] Mena Vernon MD Work Phone: [facility] 08-31-2023 09:03-0400 Body mass index (BMI) [Ratio] 37.88 kg/m2 Ade Moomaw FUELER.BONING ROOM WORKER Work Phone: [facility] 08-31-2023 09:03-0400 Body temperature 97.3 [degF] Ade Moomaw FUELER.BONING ROOM WORKER Work Phone: [facility] 08-31-2023 09:03-0400 Body weight 97 kg Ade Moomaw FUELER.BONING ROOM WORKER Work Phone: [facility] 08-31-2023 09:03-0400 Diastolic blood pressure 97 mm[Hg] Ade Moomaw FUELER.BONING ROOM WORKER Work Phone: [facility] Comment on above: no meds this am 08-31-2023 09:03-0400 Heart rate 87 /min Ade Moomaw FUELER.BONING ROOM WORKER Work Phone: [facility] 08-31-2023 09:03-0400 Respiratory rate 18 /min Ade Moomaw FUELER.BONING ROOM WORKER Work Phone: [facility] 08-31-2023 09:03-0400 SaO2% (BldA) [Mass fraction] 100 % Ade Moomaw FUELER.BONING ROOM WORKER Work Phone: [facility] 08-31-2023 09:03-0400 Systolic blood pressure 155 mm[Hg] Ade Moomaw FUELER.BONING ROOM WORKER Work Phone: [facility] Comment on above: no meds this am 05-29-2023 16:37-0400 Body temperature 97 [degF] Shima Athy PA-C Work Phone: [facility] 05-29-2023 16:37-0400 Body weight 99.5 kg Shima Athy PA-C Work Phone: [facility] 05-29-2023 16:37-0400 Diastolic blood pressure 120 mm[Hg] Shima Athy PA-C Work Phone: [facility] 05-29-2023 16:37-0400 Heart rate 116 /min Shima Athy PA-C Work Phone: [facility] 05-29-2023 16:37-0400 Respiratory rate 16 /min Shima Barney PA-C Work Phone: [facility] 05-29-2023 16:37-0400 SaO2% (BldA) [Mass fraction] 98 % Shima Ector PA-C Work Phone: [facility] 05-29-2023 16:37-0400 Systolic blood pressure 163 mm[Hg] Shima Barney PA-C Work Phone: [facility] 04-22-2023 09:05-0500 Diastolic blood pressure 88 mm[Hg] Mena Vernon MD Work Phone: [facility] 04-22-2023 09:05-0500 Systolic blood pressure 138 mm[Hg] Mena Vernon MD Work Phone: [facility] 04-22-2023 08:18-0500 Body weight 97.98 kg Mena Vernon MD Work Phone: [facility] 04-22-2023 08:18-0500 Heart rate 88 /min Mena Vernon MD Work Phone: [facility] 10-22-2022 09:00-0400 Body height 160 cm Jaylan Syed MD Work Phone: [facility] 10-22-2022 09:00-0400 Body weight 99.79 kg Jaylan Syed MD Work Phone: [facility] 10-22-2022 09:00-0400 Diastolic blood pressure 90 mm[Hg] Jaylan Syed MD Work Phone: [facility] 10-22-2022 09:00-0400 Systolic blood pressure 148 mm[Hg] Jaylan Syed MD Work Phone: [facility] 06-22-2022 16:43-0400 Body height 157.48 cm [facility] 06-22-2022 16:43-0400 Body mass index (BMI) [Ratio] 38.4 kg/m2 [facility] 06-22-2022 16:43-0400 Body temperature 97.8 [degF] [facility] 06-22-2022 16:43-0400 Body weight 95.25 kg [facility] 06-22-2022 16:43-0400 Diastolic blood pressure 90 mm[Hg] [facility] 06-22-2022 16:43-0400 Heart rate 94 /min [facility] 06-22-2022 16:43-0400 Respiratory rate 16 /min [facility] 06-22-2022 16:43-0400 SaO2% (BldA) [Mass fraction] 100 % [facility] 06-22-2022 16:43-0400 Systolic blood pressure 167 mm[Hg] [facility] 04-10-2022 11:18-0500 Body temperature 98.01 [degF] Mena Vernon MD Work Phone: [facility] 04-10-2022 11:18-0500 Body weight 94.35 kg Mena Vernon MD Work Phone: [facility] 04-10-2022 11:18-0500 Diastolic blood pressure 74 mm[Hg] Mena Vernon MD Work Phone: [facility] 04-10-2022 11:18-0500 Heart rate 104 /min Mena Vernon MD Work Phone: [facility] 04-10-2022 11:18-0500 Respiratory rate 18 /min Mena Vernon MD Work Phone: [facility] 04-10-2022 11:18-0500 SaO2% (BldA) [Mass fraction] 99 % Mena Vernon MD Work Phone: [facility] 04-10-2022 11:18-0500 Systolic blood pressure 130 mm[Hg] Mena Vernon MD Work Phone: [facility] 04-02-2022 19:58-0500 Body temperature 98.29 [degF] Elizabeth Long PA Work Phone: [facility] 04-02-2022 19:58-0500 Body weight 97.07 kg Krislyn Aberegg PA Work Phone: [facility] 04-02-2022 19:58-0500 Diastolic blood pressure 86 mm[Hg] Krislyn Aberegg PA Work Phone: [facility] 04-02-2022 19:58-0500 Heart rate 100 /min Krislyn Aberegg PA Work Phone: [facility] 04-02-2022 19:58-0500 Respiratory rate 16 /min Krislyn Aberegg PA Work Phone: [facility] 04-02-2022 19:58-0500 SaO2% (BldA) [Mass fraction] 99 % Krislyn Aberegg PA Work Phone: [facility] 04-02-2022 19:58-0500 Systolic blood pressure 138 mm[Hg] Krislyn Aberegg PA Work Phone: [facility] 02-15-2022 09:06-0500 Body height 162.6 cm Venita Kingman FUELER-BONING ROOM WORKER Work Phone: [facility] 02-15-2022 09:06-0500 Body mass index (BMI) [Ratio] 36.06 kg/m2 Venita Joanie FUELER-BONING ROOM WORKER Work Phone: [facility] 02-15-2022 09:06-0500 Body temperature 98.29 [degF] Venita Kingman FUELER-BONING ROOM WORKER Work Phone: [facility] 02-15-2022 09:06-0500 Body weight 95.3 kg Venita Kingman FUELER-BONING ROOM WORKER Work Phone: [facility] 02-15-2022 09:06-0500 Diastolic blood pressure 93 mm[Hg] Venita Joanie FUELER-BONING ROOM WORKER Work Phone: [facility] 02-15-2022 09:06-0500 Heart rate 86 /min Venita Joanie FUELER-BONING ROOM WORKER Work Phone: [facility] 02-15-2022 09:06-0500 Systolic blood pressure 162 mm[Hg] Venita Nair FUELER-BONING ROOM WORKER Work Phone: [facility] 01-28-2022 10:02-0500 Body weight 96.16 kg Kayla Ferrer MD Work Phone: [facility] 01-28-2022 10:02-0500 Diastolic blood pressure 90 mm[Hg] Kayla Ferrer MD Work Phone: [facility] 01-28-2022 10:02-0500 Systolic blood pressure 154 mm[Hg] Kayla Ferrer MD Work Phone: [facility] 11-09-2021 10:19-0400 Body temperature 97.1 [degF] [facility] Work Phone: 11-09-2021 10:19-0400 Diastolic blood pressure 90 mm[Hg] [facility] Work Phone: 11-09-2021 10:19-0400 Heart rate 68 /min [facility] Work Phone: 11-09-2021 10:19-0400 Respiratory rate 18 /min [facility] Work Phone: 11-09-2021 10:19-0400 SaO2% (BldA) [Mass fraction] 97 % [facility] Work Phone: 11-09-2021 10:19-0400 Systolic blood pressure 142 mm[Hg] [facility] Work Phone: 11-09-2021 07:24-0400 Body height 157.48 cm [facility] Work Phone: 11-09-2021 07:24-0400 Body mass index (BMI) [Ratio] 38.8 kg/m2 [facility] Work Phone: 11-09-2021 07:24-0400 Body weight 96.3 kg [facility] Work Phone: 10-23-2021 11:02-0400 Body height 160 cm Jaylan Syed MD Work Phone: [facility] 10-23-2021 11:02-0400 Body weight 96.16 kg Jaylan Syed MD Work Phone: [facility] 10-23-2021 11:02-0400 Diastolic blood pressure 96 mm[Hg] Jaylan Syed MD Work Phone: [facility] 10-23-2021 11:02-0400 Heart rate 96 /min Jaylan Syed MD Work Phone: [facility] 10-23-2021 11:02-0400 Respiratory rate 16 /min Jaylan Syed MD Work Phone: [facility] 10-23-2021 11:02-0400 Systolic blood pressure 142 mm[Hg] Jaylan Syed MD Work Phone: [facility] 10-10-2021 11:35-0400 Diastolic blood pressure 92 mm[Hg] Jaylan Syed MD Work Phone: [facility] 10-10-2021 11:35-0400 Systolic blood pressure 136 mm[Hg] Jaylan Syed MD Work Phone: [facility] 09-19-2021 09:13-0400 Body height 160 cm Jaylan Syed MD Work Phone: [facility] 09-19-2021 09:13-0400 Body weight 97.07 kg Jaylan Syed MD Work Phone: [facility] 09-19-2021 09:13-0400 Diastolic blood pressure 96 mm[Hg] Jayaln Syed MD Work Phone: [facility] 09-19-2021 09:13-0400 Systolic blood pressure 148 mm[Hg] Jaylan Syed MD Work Phone: [facility] 07-31-2021 10:47-0400 Diastolic blood pressure 90 mm[Hg] Mena Vernon MD Work Phone: [facility] 07-31-2021 10:47-0400 Heart rate 70 /min Mena Vernon MD Work Phone: [facility] 07-31-2021 10:47-0400 Systolic blood pressure 142 mm[Hg] Mena Vernon MD Work Phone: [facility] 07-27-2021 15:59-0400 Diastolic blood pressure 75 mm[Hg] [facility] Work Phone: 07-27-2021 15:59-0400 SaO2% (BldA) [Mass fraction] 95 % [facility] Work Phone: 07-27-2021 15:59-0400 Systolic blood pressure 141 mm[Hg] [facility] Work Phone: 07-27-2021 12:03-0400 Body height 157.48 cm [facility] Work Phone: 07-27-2021 12:03-0400 Body mass index (BMI) [Ratio] 36.6 kg/m2 [facility] Work Phone: 07-27-2021 12:03-0400 Body temperature 97.6 [degF] [facility] Work Phone: 07-27-2021 12:03-0400 Body weight 90.71 kg [facility] Work Phone: 07-27-2021 12:03-0400 Heart rate 104 /min [facility] Work Phone: 07-27-2021 12:03-0400 Respiratory rate 18 /min [facility] Work Phone: Encounters Encounter Date Encounter Type Care Provider Facility Start: 08-10-2024 ambulatory Mena Nicolas Vernon Facilit y:[facility] Start: 07-28-2024 End: 07-28-2024 ambulatory MENA D SAULO Facility:[facility] Start: 07-23-2024 End: 07-23-2024 Telephone encounter Patricia Grimes MD Work Phone: [facility] Comment on above: Appointment Start: 07-21-2024 End: 07-21-2024 Patient encounter procedure Jaylan Syed MD Work Phone: OB/Gynecology Comment on above: Encounter for gyneco logical examination (general) (routine) without abnormal findings (Primary Dx); Screening for cervical cancer; Encounter for screening for human papillomavirus (HPV); BMI 38.0-38.9,adult Start: 07-21-2024 End: 07-21-2024 Patient encounter status Jaylan Syed MD Work Phone: [facility] Start: 07-21-2024 End: 07-21-2024 ambulatory MENA VERNON Facility:[facility] Start: 07-21-2024 Encounter for gynecological examination (general) (routine) without abnormal findings JAYLAN SYED [facility] Start: 07-12-2024 End: 07-12-[address] Mena Vernon MD Work Phone: [facility] Work Phone: Start: 07-12-2024 End: 07-12-[address] Tristen Harrison DO -Laboratory Work Phone: Start: 07-12-2024 End: 07-12-2024 ambulatory Mena Vernon Facility:[facility] Start: 07-05-2024 Non-patient / Non-visit Dr. Beltre DO -[facility] Work Phone: Start: 07-05-2024 Non-patient / Non-visit Dr. Aman Austin MD -[facility] Start: 07-04-2024 ambulatory Juan Hdez Facility: [facility] Start: 07-04-2024 End: 07-05-2024 Evaluation and management of inpatient Dr. Juan Hdez MD -Medical Surgical 3 Work Phone: Start: 05-23-2024 End: 05-24-2024 ambulatory Mena Vernon MD Work Phone: [facility] Comment on above: PA ISSUE! Start: 05-17-2024 End: 05-25-2024 Telephone encounter Mena Vernon MD Work Phone: [facility] Comment on above: Insurance Authorizat ion Start: 04-19-2024 End: 04-19-2024 ambulatory MENA VERNON Facility:[facility] Start: 04-19-2024 End: 04-19-2024 ambulatory MENA VERNON Facility:[facility] Start: 04-19-2024 End: 04-19-2024 Office outpatient visit 25 minutes Mena Vernon MD Work Phone: [facility] [place] Comment on above: Attention deficit hy peractivity disorder (ADHD), unspecified ADHD type (Primary Dx); Essential (primary) hypertension; Iron deficiency anemia, unspecified iron deficiency anemia type; Radiculopathy, thoracic region; Encounter for long-term current use of medication; Obesity, Class II, BMI 35-39.9 Start: 04-14-2024 End: 04-14-2024 ambulatory MENA VERNON Facility:[facility] Start: 04-14-2024 End: 04-14-2024 Patient encounter procedure Aliza Mcnamara APRN.BONING ROOM WORKER Work Phone: [facility] Comment on above: Viral URI (Primary D x); Acute cough Start: 02-02-2024 End: 02-02-2024 Refill Mena Vernon MD Work Phone: [facility] Comment on above: Refill Request Start: 12-03-2023 End: 12-03-2023 Telephone encounter Mena Vernon MD Work Phone: [facility] Comment on above: Insurance Authorizat ion Start: 11-07-2023 End: 11-07-2023 ambulatory DIEGO FOX MD Facility: Start: 11-07-2023 End: 11-07-2023 Patient encounter procedure DIEGO FOX MD [facility] Start: 11-05-2023 End: 11-05-2023 Emergency department patient visit DIEGO FOX MD [facility] Start: 11-05-2023 End: 11-05-2023 Patient encounter procedure Sulaiman Brooke APRN.BONING ROOM WORKER Work Phone: [facility] Comment on above: Right upper quadrant abdominal pain (Primary Dx); Flank pain Start: 11-05-2023 End: 11-05-2023 ambulatory MENA VERNON Facility:[facility] Start: 11-05-2023 End: 11-05-2023 Emergency department patient visit Ed Physician Provider Facility:[facility] Start: 10-03-2023 End: 10-03-2023 Office outpatient visit 25 minutes Mena Vernon MD Work Phone: [facility] Comment on above: Attention deficit hy peractivity disorder (ADHD), unspecified ADHD type (Primary Dx); Iron deficiency; Primary hypertension; Class 2 obesity due to excess calories with body mass index (BMI) of 38.0 to 38.9 in adult, unspecified whether serious comorbidity present Start: 10-03-2023 End: 10-03-2023 Refill Karol Vergara APRN.BONING ROOM WORKER Work Phone: [facility] Comment on above: Refill Request Start: 09-03-2023 Refill Karol Donaldsonr A PRN.BONING ROOM WORKER Work Phone: [facility] Comment on above: Refill Request Start: 08-31-2023 End: 08-31-2023 ambulatory MENA VERNON Facility:[facility] Start: 08-31-2023 End: 08-31-2023 Patient encounter procedure Ade Gastelum FUELER.BONING ROOM WORKER Work Phone: [facility] Comment on above: Sore throat (Primary Dx) Start: 08-05-2023 Refill Mena gamboa MD Work Phone: [facility] Comment on above: Refill Request Start: 08-02-2023 Refill Deepti Noe PRN.HVAC/R INSTRUCTOR Work Phone: [facility] Comment on above: Refill Request Start: 07-04-2023 Refill Mena gamboa MD Work Phone: [facility] Comment on above: Refill Request Start: 07-03-2023 Telephone encounter Mena rubio MD Work Phone: [facility] Comment on above: Medication Problem ( Adderall) Medication Problem Start: 06-20-2023 Telephone encounter Jaylan Syed MD Work Phone: OB/Gynecology Comment on above: Vaginal Problem Start: 05-29-2023 End: 05-29-2023 Subsequent hospital visit by physician [facility] Work Phone: Radiology Comment on above: Acute cough [R05.1] Start: 05-29-2023 End: 05-29-2023 Patient encounter procedure Shima Barney PA-C Work Phone: [facility] Comment on above: Viral URI (Primary D x) Start: 04-28-2023 Telephone encounter Mena rubio MD Work Phone: [facility] Comment on above: Insurance Authorizat ion Start: 04-22-2023 End: 04-22-2023 Office outpatient visit 25 minutes Mena Vernon MD Work Phone: [facility] Comment on above: Attention deficit hy peractivity disorder (ADHD), unspecified ADHD type (Primary Dx); Primary hypertension; Hypochromic microcytic anemia; Class 2 obesity due to excess calories with body mass index (BMI) of 38.0 to 38.9 in adult, unspecified whether serious comorbidity present; Lipid screening; Encounter for long-term current use of medication Start: 01-23-2023 Telephone encounter Mena rubio MD Work Phone: [facility] Comment on above: Patient Question Start: 01-21-2023 ambulatory Mena gamboa MD Work Phone: [facility] Comment on above: Medication change re quest Start: 01-09-2023 ambulatory Adilene eli MD Work Phone: Endocrinology Comment on above: Urgent Rx side effec ts Start: 11-14-2022 Refill Karol Noe PRN.CNP Work Phone: [facility] Comment on above: Refill Request Start: 10-22-2022 End: 10-22-2022 Patient encounter procedure Jaylan Syed MD Work Phone: OB/Gynecology Comment on above: Encounter for gyneco logical examination with abnormal finding (Primary Dx); Hirsutism; Acne vulgaris; Unintended weight gain; Class 2 obesity due to excess calories without serious comorbidity with body mass index (BMI) of 38.0 to 38.9 in adult Refill Request Start: 10-22-2022 End: 10-22-2022 Patient encounter status Jaylan Syed MD Work Phone: [facility] Work Phone: Start: 07-17-2022 Refill Jaylan chung MD Work Phone: OB/Gynecology Comment on above: Refill Request Start: 07-15-2022 Telephone encounter Jaylan Syed MD Work Phone: OB/Gynecology Comment on above: Vaginal Problem Patient Update; Medi cation Request Start: 07-11-2022 Telephone encounter Mena rubio MD Work Phone: [facility] [place] Comment on above: Medication Problem ( Lexapro ) Start: 07-10-2022 End: 07-10-2022 Office outpatient visit 25 minutes Mena Vernon MD Work Phone: [facility] Comment on above: Attention deficit hy peractivity disorder (ADHD), unspecified ADHD type (Primary Dx); Anxiety and depression; Dry eyes Start: 06-22-2022 End: 06-22-2022 Emergency department patient visit [facility] Start: 04-23-2022 Telephone encounter Mena rubio MD Work Phone: [facility] [place] Comment on above: Insurance Authorizat ion Start: 04-10-2022 End: 04-10-2022 Office outpatient visit 15 minutes Mena Vernon MD Work Phone: [facility] Comment on above: Attention deficit hy peractivity disorder (ADHD), unspecified ADHD type (Primary Dx); Encounter for long-term current use of medication; Encounter for immunization Start: 04-02-2022 End: 04-02-2022 Patient encounter procedure Elizabeth LIEBERMAN Work Phone: [facility] Comment on above: URI, acute (Primary Dx); Nausea Start: 03-19-2022 Telephone encounter Mena rubio MD Work Phone: [facility] [place] Comment on above: Medication Problem Start: 02-15-2022 ambulatory VENITA NAIR Facility: [facility] Start: 02-15-2022 End: 02-15-2022 Subsequent hospital visit by physician Venita Nair FUELER-BONING ROOM WORKER Work Phone: [facility] Comment on above: Arrived Start: 02-15-2022 End: 02-15-2022 Office outpatient new 45 minutes Venita Nair FUELER-BONING ROOM WORKER Work Phone: [facility] [place] Comment on above: Breast pain (Primary Dx); Mass of right breast, unspecified quadrant Start: 01-28-2022 Telephone encounter Mena rubio MD Work Phone: [facility] Comment on above: fax orders to [facility] Patient Question Start: 01-28-2022 End: 01-28-2022 Patient encounter procedure Kayla Ferrer MD Work Phone: OB/Gynecology Comment on above: Breast pain (Primary Dx); Large breasts Start: 01-15-2022 Telephone encounter Mena rubio MD Work Phone: [facility] [place] Comment on above: Appointment Start: 12-31-2021 Refill Mena gamboa MD Work Phone: [facility] [place] Comment on above: Refill Request (que ent wants brand name Adderall rx) Start: 12-28-2021 Telephone encounter Mena rubio MD Work Phone: [facility] Comment on above: Med Change Request Start: 11-26-2021 ambulatory Mena gamboa MD Work Phone: [facility] Comment on above: Rx Question Start: 11-09-2021 End: 11-09-2021 ambulatory Jaylan Syed MD Work Phone: [facility] Work Phone: Comment on above: Encounter for steril ization (Primary Dx) Start: 11-09-2021 Patient encounter procedure Jaylan Syed MD Work Phone: [facility] Start: 11-09-2021 End: 11-09-2021 Admission to same day surgery center [facility] Start: 10-31-2021 End: 10-31-2021 Office outpatient visit 40 minutes Mena Vernon MD Work Phone: [facility] Comment on above: Attention deficit hy peractivity disorder (ADHD), unspecified ADHD type (Primary Dx); Anxiety and depression; Obesity due to excess calories without serious comorbidity, unspecified classification Start: 10-23-2021 End: 10-23-2021 Patient encounter procedure Jaylan Syed MD Work Phone: OB/Gynecology Comment on above: Encounter for steril ization (Primary Dx); Preoperative examination Start: 10-23-2021 End: 10-23-2021 Preprocedural examination done Jaylan Syed MD Work Phone: OB/Gynecology Start: 10-12-2021 Telephone encounter Mena rubio MD Work Phone: [facility] Comment on above: Medication Question Start: 10-10-2021 End: 10-10-2021 Patient encounter procedure Kayla Ferrer MD Work Phone: OB/Gynecology Comment on above: Abnormal uterine ble eding (AUB) (Primary Dx) Start: 10-10-2021 End: 10-10-2021 Patient encounter procedure Jaylan Syed MD Work Phone: OB/Gynecology Comment on above: Menorrhagia with reg ular cycle (Primary Dx) Start: 09-19-2021 End: 09-19-2021 Patient encounter procedure Jaylan Syed MD Work Phone: OB/Gynecology Comment on above: Encounter for gyneco logical examination with abnormal finding (Primary Dx); Menorrhagia with regular cycle Start: 09-19-2021 End: 09-19-2021 Patient encounter status Jaylan Syed MD Work Phone: OB/Gynecology Start: 08-13-2021 Refill Mena gamboa MD Work Phone: [facility] Comment on above: Refill Request Start: 08-09-2021 ambulatory Mena gamboa MD Work Phone: [facility] Comment on above: Barky Cough Start: 07-31-2021 End: 07-31-2021 Office outpatient visit 40 minutes Mena Vernon MD Work Phone: [facility] Comment on above: Attention deficit hy peractivity disorder (ADHD), unspecified ADHD type (Primary Dx); Tremor; Eyelid twitch; Acne vulgaris; Class 2 obesity due to excess calories with body mass index (BMI) of 37.0 to 37.9 in adult, unspecified whether serious comorbidity present Start: 07-27-2021 End: 07-27-2021 Emergency department patient visit [facility] [facility] Procedures Date Procedure Procedure Detail Performing Clinician Start: 07-05-2024 Albumin/Globulin ratio Dr. Mena Vernon MD Work Phone: Start: 07-05-[address] Adalberto Vernon MD Work Phone: Comment on above: *Additional results available. Contact laboratory/see report*The atypical pANCA pattern has been observed in asignificant percentage of patients with ulcerative colitis,primary sclerosing cholangitis and autoimmune hepatitis. Start: 07-05-2024 Endomysial antibody IgA level Dr. Mena Vernon MD Work Phone: Start: 07-05-2024 Eboni-Alcala virus c apsid IgG measurement Dr. Mena Vernon MD Work Phone: Comment on above: Negative <18.0 Equiv ocal 18.0 - 21.9 Positive >21.9 Start: 07-05-2024 Eboni-Alcala virus serologic test Dr. Mena Vernon MD Work Phone: Comment on above: EBV Interpretation C hartKey: Antibody Present + Antibody Absent -Interpretation VCA-IgM VCA-IgG EBNA-IgGNo previous infection/ - - -SusceptiblePrimary infection (new + + -or recent)Past Infection +or- + +See comment below* + - -*Results indicate infection with EBV at some time however cannot predict the timing of the infection since antibodies to EBNA usually develop after primary infection or, alternatively, approximately 5-10% of patients with EBV never develop antibodies to EBNA. Start: 07-05-2024 Gliadin antibody, Ig A measurement Dr. Mena Vernon MD Work Phone: Comment on above: Negative 0 - 19 Weak Positive 20 - 30 Moderate to Strong Positive >30 Start: 07-05-2024 Gliadin antibody, Ig G measurement Dr. Mena Vernon MD Work Phone: Comment on above: Negative 0 - 19 Weak Positive 20 - 30 Moderate to Strong Positive >30 Start: 07-05-2024 Hepatitis A virus an tibody, IgM type Dr. Mena Vernon MD Work Phone: Comment on above: A negative anti-HAV IgM result suggests no recent orcurrent HAV infection. Start: 07-05-2024 Hepatitis B core ant ibody measurement, IgM type Dr. Mena Vernon MD Work Phone: Start: 07-05-2024 Hepatitis C antibody measurement Dr. Mena Vernon MD Work Phone: Start: 07-05-2024 Immunoglobulin G sub class, G4 measurement Dr. Mena Vernon MD Work Phone: Start: 07-05-[address] M measurement Dr. Mena Vernon MD Work Phone: Start: 07-05-2024 Measurement of funga l antibody Dr. Mena Vernon MD Work Phone: Comment on above: Negative: <45 Equivo abelardo: 45-50 Positive: >50 Start: 07-05-2024 Total iron binding c apacity measurement Dr. Mena Vernon MD Work Phone: Start: 07-05-2024 Computed tomography of abdomen and pelvis with intravenous contrast Dr. Mena Vernon MD Work Phone: Start: 07-05-[address] Mena Vernon MD Work Phone: Start: 07-04-2024 Plain chest X-ray Dr. Nayana Vernon MD Work Phone: Start: 07-04-2024 Urnls dip stick/tabl et reagent auto microscopy Dr. Mena Vernon MD Work Phone: Start: 07-04-2024 US scan of gallbladder Dr. Mena Vernon MD Work Phone: Start: 08-31-2023 STREP A MOLECULAR (POC) Albert Gutierrez APRN.[employer]ONING ROOM WORKER Work Phone: Start: 05-29-2023 Radiologic exam ches t 2 views Shima Barney PA-C Work Phone: Start: 02-15-2022 Us breast uni real t haile with image limited Venita Nair [employer] Work Phone: Start: 02-15-2022 Diagnostic mammograp hy computer-aided detcj bi Venita Nair [employer] Work Phone: Start: 11-09-2021 Laparoscopic salpingectomy Start: 10-10-2021 Urine test visual color cmprsn meths Jaylan Syed MD Work Phone: Start: 07-31-2021 Adult depression scr eening assessment Mena Vernon MD Work Phone: Plan of Treatment Date Care Activity Detail Author Start: 12-08-2028 Tetanus vaccination TETANUS [facility] Start: 12-08-2028 Urine microalbumin profile [facility] Start: 07-22-2025 End: 07-22-2025 Patient encounter procedure 07/22/2025 1:40 PM EDT Office Visit OB/Gynecology [address] [place] [address] Jaylan Syed MD [address] [place] [address] annual OB/Gynecology Comment on above: annual Start: 07-04-2025 HPV TESTING HPV TESTING [facility] Start: 07-04-2025 PAP TESTING PAP TESTING [facility] Start: 07-04-2025 Screening for malignant neoplasm of cervix [facility] Start: 04-19-2025 Annual PCP Team Chronic Disease Visit Annual PCP Team Chronic Disease Visit [facility] Start: 04-19-2025 BP Controlled (<130/80) BP Controlled (<130/80) [facility] Start: 11-08-2024 Influenza vaccination Influenza Vaccine (Season Ended) [facility] Start: 10-27-2024 End: 10-27-2024 Patient encounter procedure 10/27/2024 10:40 AM EDT Office Visit Internal Medicine [place] [address] [facility] [place], [place] [id number] Mena Vernon MD [address], [place] [id number] 3 month f/u [facility] [place] Comment on above: 3 month f/u Start: 10-02-2024 Annual PCP Team Chronic Disease Visit Annual PCP Team Chronic Disease Visit [facility] Start: 09-06-2024 Influenza vaccination Influ[facility] Vacc[facility] Comment on above: Postponed from 11/09/2023 (Declined at t his time) Start: 07-28-2024 End: 07-28-2024 Patient encounter procedure 07/28/2024 9:20 AM EDT Office Visit Internal Medicine [place] [address] [place], [place] [address] Mena Vernon MD [address] [facility], [place] [id number] 3 month follow up [facility] [place] Comment on above: 3 month follow up Start: 07-23-2024 End: 07-23-2024 Patient encounter procedure 07/23/2024 9:20 AM EDT Office Visit Internal Medicine [place] [address] [place] [address] Mena Vernon MD [address] [place] [address] 3 month follow up [facility] [place] Comment on above: 3 month follow up Start: 07-21-2024 End: 07-21-2024 Patient encounter procedure 07/21/2024 4:00 PM EDT Office Visit OB/Gynecology [address] [place] [address] Jaylan Syed MD [address] [place] [address] Annual visit OB/Gynecology Comment on above: Annual visit Start: 07-20-2024 End: 07-20-2024 Patient encounter procedure 07/20/2024 8:20 AM EDT Office Visit Internal Medicine [place] [address] [place] [address] Mena Vernon MD [address] [facility] [place] [address] 3 month follow up Internal Medicine [place] Comment on above: 3 month follow up Start: 07-05-[address] [facility] Start: 07-05-2024 Cytomegalovirus IgM antibody assay [facility] Start: 07-05-2024 Immunoglobulin measurement [facility] Start: 07-05-[address] [facility] Start: 07-05-[address] [facility] Start: 07-05-2024 End: 07-05-2024 [facility] Start: 07-04-2024 Following clinical pathway protocol [facility] Start: 07-04-2024 Assessment of risk of venous thromboembolism [facility] Start: 07-04-[address] [facility] Start: 07-04-2024 Insertion of catheter into peripheral vein [facility] Start: 07-04-2024 Measuring intake and output [facility] Start: 07-04-[address] [facility] Start: 07-04-2024 Providing care according to standard [facility] Start: 07-04-2024 Referral to gastroenterology service [facility] Start: 07-04-2024 Referral to general surgeon [facility] Start: 07-04-2024 [facility] Start: 07-04-[address] [facility] Start: 07-04-2024 Hospital admission, emergency, from emergency room, medical nature [facility] Start: 07-04-[address] [facility] Start: 07-04-2024 End: 07-04-2024 [facility] Start: 07-04-[address] [facility] Start: 04-22-2024 Hepatitis B Vaccine (1 of 3 - 19+ 3-dose series) Hepatitis B Vaccine (1 of 3 - 19+ 3-dose series) [facility] Comment on above: Postponed from 08/14/2006 (Declined at t his time) Start: 04-22-2024 Hepatitis B Vaccine (1 of 3 - 3-dose series) Hepatitis B Vaccine (1 of 3 - 3-dose series) [facility] Comment on above: Postponed from 1987 (Declined at t his time) Start: 04-19-2024 End: 07-19-2024 CBC panel - Blood by Automated count [facility] Comment on above: Expected: 04/19/2024, Expires: Start: 04-19-2024 End: 07-19-2024 Comprehensive metabolic 2000 panel - Serum or Plasma [facility] Work Phone: Comment on above: Expected: 04/19/2024, Expires: Start: 04-19-2024 End: 07-19-2024 Ferritin [Mass/volume] in Serum or Plasma [facility] Comment on above: Expected: 04/19/2024, Expires: Start: 04-19-2024 End: 07-19-2024 Iron and Iron binding capacity panel - Serum or Plasma [facility] Comment on above: Expected: 04/19/2024, Expires: Start: 04-19-2024 End: 07-19-2024 Lipid 1996 panel - Serum or Plasma [facility] Comment on above: Expected: 04/19/2024, Expires: Start: 04-19-2024 End: 04-19-2024 Patient encounter procedure 04/19/2024 8:40 AM EST Office Visit Internal Medicine [place] [address] [place] [address] Mena Vernon MD [address] [facility] [place] [address] 3 month follow up Internal Medicine [facility] Comment on above: 3 month follow up Start: 01-13-2024 End: 01-13-2024 Patient encounter procedure 01/13/2024 8:20 AM EST Office Visit Internal Medicine [place] [address] [place] [address] Mena Vernon MD [address] [facility] [place] [address] 3 month follow up [facility] [place] Comment on above: 3 month follow up Start: 11-09-2023 Influenza vaccination [facility] Start: 10-24-2023 End: 10-24-2023 Patient encounter procedure 10/24/2023 9:00 AM EDT Office Visit OB/Gynecology [address] [place] [address] Jaylan Syed MD [address] [place] [address] annual OB/Gynecology Comment on above: annual Start: 10-03-2023 End: 10-03-2023 Patient encounter procedure 10/03/2023 4:20 PM EDT Office Visit Internal Medicine [place] [address] [place] [address] Mena Vernon MD [address] [facility] [place] [address] 3 month follow up Internal Medicine [place] Comment on above: 3 month follow up Start: 09-07-2023 Influenza vaccination Influenza Vaccine (#1) [facility] Comment on above: Postponed from 11/08/2022 (Declined at t his time) Start: 04-10-2023 COVID-19 VACCINE (3 - Booster for Pfizer series) COVID-19 VACCINE (3 - Booster for Pfizer series) [facility] Comment on above: Postponed from 04/04/2021 (Declined at t his time) Start: 04-10-2023 COVID-19 VACCINE (3 - Pfizer series) COVID-19 VACCINE (3 - Pfizer series) [facility] Comment on above: Postponed from 04/04/2021 (Declined at t his time) Start: 04-10-2023 HEPATITIS B (1 of 3 - 3-dose series) HEPATITIS B (1 of 3 - 3-dose series) [facility] Comment on above: Postponed from 1987 (Declined at t his time) Start: 04-10-2023 Hepatitis B Vaccine (1 of 3 - 3-dose series) Hepatitis B Vaccine (1 of 3 - 3-dose series) [facility] Comment on above: Postponed from 1987 (Declined at t his time) Start: 11-08-2022 Covid-19 Vaccine ( season) Covid-19 Vaccine ( season) [facility] Start: 11-08-2022 Influenza vaccination [facility] Start: 09-06-2022 Influenza vaccination INFLUENZA (#1) [facility] Comment on above: Postponed from 11/08/2021 (Declined at t his time) Start: 07-31-2022 Adult depression screening assessment DEPRESSION SCREENING [facility] Start: 11-09-[address] [facility] Work Phone: Start: 11-09-[address] [facility] Work Phone: Start: 11-09-2021 Medical regimen orders management [facility] Work Phone: Start: 11-09-[address] [facility] Work Phone: Start: 11-09-[address] [facility] Work Phone: Start: 11-09-2021 Taking patient vital signs [facility] Work Phone: Start: 11-09-2021 Vital signs measurements [facility] Work Phone: Start: 11-09-2021 [facility] Work Phone: Start: 11-08-2021 Influenza vaccination [facility] Start: 09-19-2021 End: 11-19-2021 Thyrotropin [Units/volume] in Serum or Plasma [facility] Work Phone: Comment on above: Expected: 09/19/2021, Expires: Start: 07-08-2021 COVID-19 VACCINE (3 - Booster for Pfizer series) COVID-19 VACCINE (3 - Booster for Pfizer series) [facility] Start: 04-04-2021 COVID-19 VACCINE (3 - Booster for Pfizer series) COVID-19 VACCINE (3 - Booster for Pfizer series) [facility] Start: 08-14-2008 Screening for malignant neoplasm of cervix CERVICAL CANCER SCREENING DISCUSSION [facility] Start: 08-14-2006 Hepatitis B Vaccine (1 of 3 - 19+ 3-dose series) Hepatitis B Vaccine (1 of 3 - 19+ 3-dose series) [facility] Start: 08-14-2005 BP Controlled (<130/80) BP Controlled (<130/80) [facility] Start: 08-14-2005 HEPATITIS C SCREENING HEPATITIS C SCREENING [facility] Start: 08-14-2002 HIV screening HIV SCREENING DISCUSSION [facility] Start: 1987 HEPATITIS B (1 of 3 - 3-dose series) HEPATITIS B (1 of 3 - 3-dose series) [facility] Start: 1987 Hepatitis C screening HEPATITIS C VIRUS SCREENING [facility] Albumin [Moles/volum e] in Serum or Plasma [facility] Albumin/Globulin ratio [facility] Chitobioside IgA Ab [Units/volume] in Serum or Plasma by Immunoassay [facility] End: 02-27-2023 Diagnostic mammography computer-aided detcj bi [facility] DIAGNOSTIC BILAT Radiology Routine Breast pain Large breasts 1 Occurrences starting 01/28/2022 until 02/27/2023 [facility] Work Phone: Comment on above: 1 Occurrences starting 01/28/2022 until 02/27/2023 Electrophoresis: [id number] [facility] Electrophoresis: alexa ma globulin [facility] Endometrial bx w/wo endocervix bx w/o dilat spx ENDOMETRIAL BIOPSY Procedures Routine Menorrhagia with regular cycle Ordered: 09/19/2021 [facility] Work Phone: Comment on above: Ordered: 09/19/2021 Ebnoi Alcala virus c apsid IgG Ab [Units/volume] in Serum [facility] Eboni Alcala virus c apsid IgM Ab [Units/volume] in Serum [facility] Eboni Alcala virus n uclear IgG Ab [Units/volume] in Cerebral spinal fluid [facility] Eboni-Alcala virus serologic test [facility] Gliadin peptide IgA Ab [Units/volume] in Serum [facility] Gliadin peptide IgG Ab [Units/volume] in Serum [facility] Globulin measurement [facility] Hepatic function panel [facility] Hepatitis A virus Ig M Ab [Presence] in Serum [facility] Hepatitis B core ant ibody measurement, IgM type [facility] Hepatitis B surface antigen measurement [facility] Hepatitis C antibody measurement [facility] IgA [Mass/volume] in Serum or Plasma [facility] IgE [Units/volume] i n Serum or Plasma [facility] IgG [Mass/volume] in Serum or Plasma [facility] IgG subclass 1 [Mass/volume] in Serum [facility] IgG subclass 2 [Mass/volume] in Serum [facility] IgG subclass 3 [Mass/volume] in Serum [facility] IgG subclass 4 [Mass/volume] in Serum [facility] IgM [Mass/volume] in Serum or Plasma [facility] Laboratory data interpretation [facility] Laminaribioside IgG Ab [Units/volume] in Serum or Plasma by Immunoassay [facility] Mannobioside IgG Ab [Units/volume] in Serum or Plasma by Immunoassay [facility] Measurement of funga l antibody [facility] Measurement of immunoglobulin A in serum specimen [facility] Mitochondria Ab [Pre sence] in Serum [facility] Neutrophil cytoplasm ic Ab.classic [Units/volume] in Serum [facility] Neutrophil cytoplasm ic Ab.perinuclear.atypical [Titer] in Serum by Immunofluorescence [facility] P-ANCA measurement [facility] PAP TEST PAP TEST Lab Rou satish Screening for cervical cancer Encounter for screening for human papillomavirus (HPV) Ordered: 07/21/2024 [facility] Work Phone: Comment on above: Ordered: 07/21/2024 Patient Education [facility] Work Phone: Patient referral [facility] Work Phone: PELVIC US WHI PELVIC US WHI An c Imaging Routine Menorrhagia with regular cycle Ordered: 09/19/2021 [facility] Work Phone: Comment on above: Ordered: 09/19/2021 Protein electrophore sis panel - Serum or Plasma [facility] Smooth muscle Ab [Pr esence] in Serum [facility] SURGICAL PATHOLOGY SURGICAL PATH OLOGY Lab Routine Menorrhagia with regular cycle Ordered: 10/10/2021 [facility] Work Phone: Comment on above: Ordered: 10/10/2021 Tissue transglutamin ase IgA Ab [Units/volume] in Serum [facility] TOX SCREEN ROUT UR TOX SCREEN RO UT UR Lab Routine Encounter for long-term current use of medication Ordered: 04/10/2022 [facility] Work Phone: Comment on above: Ordered: 04/10/2022 End: 02-27-2023 Us breast uni real time with image limited US BREAST LTD RT Radiology Routine Breast pain Large breasts 1 Occurrences starting 01/28/2022 until 02/27/2023 [facility] Work Phone: Comment on above: 1 Occurrences starting 01/28/2022 until 02/27/2023 [facility] Immunizations Immunization Date Immunization Notes Care Provider Brenda roldan 02-07-2021 influenza, injectabl e, quadrivalent, preservative free Mena Vernon MD Work Phone: [facility] 02-07-2021 influenza virus vaccine, unspecified formulation Venita Nair [employer] WORK[employer] Work Phone: [facility] 12-08-2018 Influenza virus vaccine W [facility] 12-08-2018 influenza, injectabl e, quadrivalent, preservative free Mena Vernon MD Work Phone: [facility] 12-08-2018 influenza, seasonal, injectable, preservative free Mena Vernon MD Work Phone: [facility] 12-08-2018 tetanus toxoid, redu tenisha diphtheria toxoid, and acellular pertussis vaccine, adsorbed [facility] 11-26-2018 influenza, injectabl e, quadrivalent, contains preservative Mena Vernon MD Work Phone: [facility] 11-11-2018 tetanus toxoid, redu tenisha diphtheria toxoid, and acellular pertussis vaccine, adsorbed Mena Vernon MD Work Phone: [facility] Work Phone: 03-12-2016 tetanus toxoid, redu tenisha diphtheria toxoid, and acellular pertussis vaccine, adsorbed Mena Vernon MD Work Phone: [facility] 02-08-2014 tetanus toxoid, redu tenisha diphtheria toxoid, and acellular pertussis vaccine, adsorbed Mena Vernon MD Work Phone: [facility] Payers Date Payer Category Payer Self-pay [id number] 2022 Unknown [id number] 2019 Medicaid [employer] [id number] 2019-Present [phone] [address] [place] [address] Medicaid [id number] 2019 Medicaid [id number] 2015 Unknown [id number] 2015 Unknown [id number] 1987 Unknown [id number] 1987 Unknown [id number] 1987 Unknown [id number] 1987 Unknown [id number] 1987 Unknown [id number] Self-pay SELF PAY INSURANCE [id number] Unknown [id number] Unknown [id number] Unknown [id number] Unknown [id number] Unknown [id number] Unknown [id number] Unknown [id number] Social History Date Type Detail Facility [facility] Work Phone: Start: 07-27-2021 End: 06-22-2022 Tobacco smoking status MOIS Unknown if ever smoked [facility] Start: 01-18-2019 None [facility] Start: 1985 Sex Assigned At Female C [facility] Start: 12-28-2014 End: 07-21-2024 Tobacco smoking status NHIS Ex-smoker [facility] End: 06-03-2008 History of tobacco use Current smoker [facility] End: 06-03-2008 History of tobacco use Cigarette Smoker [facility] Start: 12-28-2014 End: 07-21-2024 Tobacco use and exposure Smokeless tobacco non-user [facility] Start: 07-31-2021 End: 07-21-2024 Alcohol intake Current non-drinker of alcohol (finding) [facility] Start: 04-30-2021 End: 07-10-2022 History SDOH Alcohol Frequency 3 [facility] Start: 04-30-2021 End: 07-10-2022 History SDOH Alcohol Std Drinks 1 [facility] Start: 04-30-2021 End: 07-10-2022 History SDOH Social Connections Membership 2 [facility] Start: 04-30-2021 History SDOH Physica l Activity MPS 6 [facility] Start: 04-30-2021 History SDOH Financial 4 [facility] Start: 11-23-2019 Education 21 [facility] Start: 11-09-2013 End: 01-28-2022 Tobacco Comment 2 Cigarettes per week [facility] Start: 1985 Sex Assigned At Not on file [facility] Start: 07-21-2021 End: 02-15-2022 Exposure to SARS-CoV-2 (event) Not sure [facility] Start: 02-15-2022 Alcohol intake Current drinke r of alcohol (finding) [facility] Start: 07-10-2022 History SDOH Social Connections Phone 5 [facility] Start: 07-31-2021 End: 07-10-2022 History of Social function [facility] Start: 07-31-2021 End: 07-10-2022 Social connection and isolation panel [facility] Do you belong to any clubs or organizations such as anabaptist groups, unions, fraternal or athletic groups, or school groups? No [facility] Are you now , , , , never or living with a partner? [facility] How often to you hav e a drink containing alcohol? 2-4 times a month [facility] How many standard dr inks containing alcohol do you have on a typical day? 1 or 2 [facility] How often do you hav e 6 or more drinks on 1 occasion? Never [facility] How hard is it for y ou to pay for the very basics like food, housing, medical care, and heating Somewhat hard [facility] Adult Depression Screening Assessment 1 [facility] Do you feel stress - tense, restless, nervous, or anxious, or unable to sleep at night because your mind is troubled all the time - these days [OSQ] Only a little [facility] (I/We) worried alisha er (my/our) food would run out before (I/we) got money to buy more. Never true [facility] In the past 12 month s, was there a time when you were not able to pay the mortgage or rent on time? Yes [facility] Start: 09-13-2021 Gender identity Identifies as female gender (finding) [facility] Start: 07-04-2024 End: 07-05-2024 Sex Female (finding) [facility] NEGATED: Highlighted row [facility] NEGATED: Highlighted row Not [facility] Goals Date Patient Goal Desired Activity /State Functional Status Date Assessment Result Facility 07-05-2024 Functional status Ambulates;Up ad maikol [facility] Work Phone: 11-05-2023 Functional Status Independent [place] Saad sarmiento [facility] 11-05-2023 Functional Status Standard Safet y ID band on, Call device within reach, Bed in low position, Wheels locked, Upper/Half-Length side-rails up, personal items within reach, Bedside Cart Locked, Visitor at bedside [facility] 09-16-2014 Are you deaf, or do you have serious difficulty hearing No 09/16/2014 4:09 PM EDT Namrata Miguel Cma No [facility] 09-16-2014 Are you blind, or do you have serious difficulty seeing, even when wearing glasses No 09/16/2014 4:09 PM EDT Namrata Miguel Cma [facility] 09-16-2014 Do you have serious difficulty walking or climbing stairs No 09/16/2014 4:09 PM EDT Namrata Miguel Cma [facility] 09-16-2014 Do you have difficul ty dressing or bathing No 09/16/2014 4:09 PM EDT Namrata Miguel Cma [facility] 09-16-2014 Because of a physica l, mental, or emotional condition, do you have difficulty doing errands alone such as visiting a physician's office or shopping No 09/16/2014 4:09 PM EDT Namrata Miguel Cma [facility] Mental Status Date Assessment Result Facility 07-04-2024 Cognitive function Voice/Name [facility] Work Phone: 11-05-2023 Mental Status Orientation Oriented x 4 [facility] 11-05-2023 Mental Status [facility] 11-09-2021 Cognitive function Voice/Name [facility] Work Phone: 09-16-2014 Because of a physica l, mental, or emotional condition, do you have serious difficulty concentrating, remembering, or making decisions No 09/16/2014 4:09 PM EDT Namrata Miguel Cma [facility] Clinical Notes 11-11-2018 to 07-28-2024 Telephone Encounter - Kamron Horton - 07/23/2024 11:52 AM EDTTelephone Encounter - Kamron Horton - 07/23/2024 11:52 AM Jaylan Jordan MD - 07/21/2024 4:04 PM EDT Note Date & Type Note Facility 07-28-2024 Note HNO ID: [id number] Author: MENA VERNON MD Service: ? Author Type: Physician Type: Progress Notes Filed: 07/28/2024 13:04 Note Text: VIRTUAL VISIT PROGRESS NOTE This is a virtual visit using [employer] Video Visit. It required patient-provider interaction for the medical decision making as documented below. I have communicated my name and active licensure. The patient's identity and physical location were verified at the time of this visit. Either the patient or their legal sales representative raw fibers has been informed of the risks and benefits of -- and alternatives to -- treatment through a remote evaluation and consents to proceed with the evaluation remotely. Liudmila is a 38-year-old female presenting for follow-up after a recent hospitalization for abdominal pain and elevated liver enzymes. Liudmila reports feeling well since her recent hospitalization, during which she was evaluated for possible cholecystitis/cholangitis causing pain and elevated liver enzymes. She was initially suspected to have gallbladder issues, but imaging did not reveal any gallstones or acute cholecystitis. Liudmila was informed that she might have passed a couple of gallstones, causing bile to back up into the liver. She was also told that autoimmune hepatitis is a potential diagnosis. She is scheduled to follow up with a regional engineer, Dr. Mcfarland, on August 10. During her hospitalization, Liudmila experienced abdominal pain, which has since resolved. She recalls a similar episode in October, during which she was diagnosed with two gallstones at [facility]. She did not experience any pain after that episode and believes she may have passed the stones. Liudmila was kept NPO during her recent hospitalization and expresses frustration with the [id number] instructions regarding her diet. She was eventually allowed to have liquids and was discharged after two days. Dr. Mcfarland advised her that he did not believe her symptoms were related to her gallbladder and recommended against cholecystectomy. Since her discharge, Liudmlia has felt well and has not experienced any further abdominal pain. She was asked to return for repeat labs, which showed some improvement but still some abnormalities. She has not had any further testing since July 12. Liudmila also discusses her interest in bariatric surgery, specifically the gastric sleeve, as a hard reset for her weight management. She has been referred to a bariatric specialist by her GRAPHIC ART DESIGNER, Dr. Syed, but has not yet pursued this further. She is currently taking metformin for weight management. She expresses a desire to avoid injectable medications and prefers not to be on lifelong medication. 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 She reports being very active on weekends, sometimes reaching up to 20,000 steps a day, but finds it challenging to maintain this level of activity during the week due to work commitments. Additionally, Liudmila reports experiencing seasonal eye allergies and was prescribed Pataday by her eye doctor. She did not purchase the medication due to its cost and inquires about alternative treatments. She has been using Systane Complete PF for dry eyes, which she finds effective but also notes is expensive. HISTORY REVIEWED (electronic chart updated): PAST MEDICAL HISTORY Diagnosis Date Abnormal Pap smear of cervix 2016 ASCUS pap , negative HPV Adult attention deficit disorder Obesity, unspecified PAST SURGICAL HISTORY Procedure Laterality Date ADENOIDECTOMY PRIMARY Adenoidectomy PAST SURGICAL HISTORY OF normal vaginal delivery PAST SURGICAL HISTORY OF 10/08/2013 wisdom teeth SALPINGECTOMY Bilateral 11/09/2021 Laparoscopic B/L Salpingectomy at [facility]-Dr. Syed TONSILLECTOMY PRIMARY/SECONDARY FAMILY HISTORY Problem Relation Age of Onset Arthritis Mother Lipids Mother No Known Problems Father Headache Sister No Known Problems Brother No Known Problems Brother Diabetes Maternal Grandmother Arthritis Maternal Grandmother Heart Maternal Grandmother Hypertension Maternal Grandmother Psychiatry Maternal Grandmother Alcohol/Drug Maternal Grandfather Arthritis Maternal Grandfather Heart Maternal Grandfather Hypertension Maternal Grandfather Diabetes Paternal Grandmother Arthritis Paternal Grandmother No Known Problems Son No Known Problems Other No Known Problems Daughter Social History Tobacco Use Smoking status: Former Current packs/day: 0.00 Types: Cigarettes Quit date: 06/03/2008 Years since quittin.1 Smokeless tobacco: Never Tobacco comments: 2 Cigarettes per week Vaping Use Vaping status: Never Used Substance Use Topics Alcohol use: No Drug use: No Current Outpatient Medications Medication Sig propylene glycoL, PF, (SYSTANE COMPLETE PF) 0.6 % drop Use 1 drop in eyes as needed (more content not included)... [facility] 07-23-2024 Miscellaneous Notes Lvm for pt to c/b and schedule new pt appt with Dr. Grimes for Interested in wt loss and possible surgery per referral request from Dr. Syed. documented in this encounter [facility] 07-23-2024 Telephone encounter Note Lvm for pt to c/b and schedule new pt appt with Dr. Grimes for Interested in wt loss and possible surgery per referral request from Dr. Syed. [facility] 07-21-2024 Note HNO ID: [id number] Author: JAYLAN SYED MD Service: ? Author Type: Physician Type: Progress Notes Filed: 07/21/2024 17:06 Note Text: Liudmila is a 38 year old who presents for an annual gynecologic exam with complaints, GI issues. Had a hospitalization for abd. pain and dx w/ acute hepatitis as some type. Saw Dr. Friend. Not sure what to do now, was told it wasn't her gallbladder. . 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 Menstrual flow: Moderate Sexually active: Yes Contraception: Tubal Ligation Contraception frequency: Always History of abnormal pap: No Last mammogram: never OB History Gravida3 Para3 Term3 Preterm0 AB0 Living3 SAB0 IAB0 Ectopic0 Multiple0 Live Births3 Problem Relation Age of Onset Arthritis Mother Lipids Mother No Known Problems Father Headache Sister No Known Problems Brother No Known Problems Brother Diabetes Maternal Grandmother Arthritis Maternal Grandmother Heart Maternal Grandmother Hypertension Maternal Grandmother Psychiatry Maternal Grandmother Alcohol/Drug Maternal Grandfather Arthritis Maternal Grandfather Heart Maternal Grandfather Hypertension Maternal Grandfather Diabetes Paternal Grandmother Arthritis Paternal Grandmother No Known Problems Son No Known Problems Other No Known Problems Daughter SOCIAL HISTORY Social History Tobacco Use Smoking status: Former Current packs/day: 0.00 Types: Cigarettes Quit date: 06/03/2008 Years since quittin.1 Smokeless tobacco: Never Tobacco comments: 2 Cigarettes per week Vaping Use Vaping status: Never Used Substance Use Topics Alcohol use: No Drug use: No REVIEW OF SYSTEMS Abdomen: No abdominal pain, nausea, vomiting, diarrhea, . No bloating, early satiety, indigestion, or increased flatulence. occas constipation Bladder: No dysuria, gross hematuria, urinary frequency, urinary urgency, or incontinence. Breast: No breast lumps, nipple d/c, overlying skin changes, redness or skin retraction. Allergies and current medication updated:Yes SENSITIVE EXAM: The sensitive examination was discussed with the Patient or Patient's Authorized Hotel Supplies Salesperson. As applicable, any other physician, advance practice provider, medical student, or other health professional student that will be observing or involved in the sensitive examination for educational or training purposes was discussed with the Patient or Authorized Hotel Supplies Salesperson. The Patient or Authorized Hotel Supplies Salesperson has agreed to proceed with the sensitive examination. (Sensitive examination includes inspection and/or palpation of the breasts, pelvis, prostate and anorectal regions). EXAM: BP 134/88 Ht 5' 3 (1.60m) Wt 215 lb (97.5kg) LMP 07/16/2024 BMI 38.09 kg/(m2). GENERAL: pleasant, female in no apparent distress HEENT: Normocephalic, atraumatic, mucus membranes moist, and no lesions NECK: Supple, full range of motion, no adenopathy, and thyroid normal DERMATOLOGY: Normal, without lesions, non-icteric, and non-hirsute BREAST: soft, non-tender, symmetric, no dominant mass, normal nipple-areolar complex, no lymphadenopathy, and no nipple discharge CHEST: Normal inspiratory effort ABDOMEN: soft, non-tender, and no masses PELVIC: external genitalia normal, normal Bartholin's glands, urethra, Friedenswald's glands, no vulvar lesions, no cervical lesions, good vaginal support, physiologic discharge present, normal appearing perineal body and perianal region BIMANUAL: uterus normal size, shape and consistency, no adnexal masses, and non-tender RECTOVAGINAL: deferred. NEURO: alert and oriented x3,exam grossly non-focal EXTREMITIES: normal ASSESSMENT/PLAN: 1) Health maintenance: Pap done with HPV. Mammogram starting age 40. 2) Contraception: tubal sterilization. Contraceptive options reviewed and information provided. 3) STD screening: Declined STD check. 4) Follow up one year or sooner as needed s/p hospitalization w/ elevated LFTs, f/u w/ PCP Desires wt management referal Jaylan Syed MD [facility] 07-21-2024 History of Presen t illness Narrative Liudmila is a 38 year old who presents for an annual gynecologic exam with complaints, GI issues. Had a hospitalization for abd. pain and dx w/ acute hepatitis as some type. Saw Friend. Not sure what to do now, was told it wasn't her gallbladder. . 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 Menstrual flow: Moderate Sexually active: Yes Contraception: Tubal Ligation Contraception frequency: Always History of abnormal pap: No Last mammogram: never OB History Gravida3 Para3 Term3 Preterm0 AB0 Living3 SAB0 IAB0 Ectopic0 Multiple0 Live Births3 Problem Relation Age of Onset Arthritis Mother Lipids Mother No Known Problems Father Headache Sister No Known Problems Brother No Known Problems Brother Diabetes Maternal Grandmother Arthritis Maternal Grandmother Heart Maternal Grandmother Hypertension Maternal Grandmother Psychiatry Maternal Grandmother Alcohol/Drug Maternal Grandfather Arthritis Maternal Grandfather Heart Maternal Grandfather Hypertension Maternal Grandfather Diabetes Paternal Grandmother Arthritis Paternal Grandmother No Known Problems Son No Known Problems Other No Known Problems Daughter SOCIAL HISTORY Social History Tobacco Use Smoking status: Former Current packs/day: 0.00 Types: Cigarettes Quit date: 06/03/2008 Years since quittin.1 Smokeless tobacco: Never Tobacco comments: 2 Cigarettes per week Vaping Use Vaping status: Never Used Substance Use Topics Alcohol use: No Drug use: No REVIEW OF SYSTEMS Abdomen: No abdominal pain, nausea, vomiting, diarrhea, . No bloating, early satiety, indigestion, or increased flatulence. occas constipation Bladder: No dysuria, gross hematuria, urinary frequency, urinary urgency, or incontinence. Breast: No breast lumps, nipple d/c, overlying skin changes, redness or skin retraction. Allergies and current medication updated:Yes SENSITIVE EXAM: The sensitive examination was discussed with the Patient or Patient's Authorized Hotel Supplies Salesperson. As applicable, any other physician, advance practice provider, medical student, or other health professional student that will be observing or involved in the sensitive examination for educational or training purposes was discussed with the Patient or Authorized Hotel Supplies Salesperson. The Patient or Authorized Hotel Supplies Salesperson has agreed to proceed with the sensitive examination. (Sensitive examination includes inspection and/or palpation of the breasts, pelvis, prostate and anorectal regions). EXAM: BP 134/88 Ht 5' 3 (1.60m) Wt 215 lb (97.5kg) LMP 07/16/2024 BMI 38.09 kg/(m^2). GENERAL: pleasant, female in no apparent distress HEENT: Normocephalic, atraumatic, mucus membranes moist, and no lesions NECK: Supple, full range of motion, no adenopathy, and thyroid normal DERMATOLOGY: Normal, without lesions, non-icteric, and non-hirsute BREAST: soft, non-tender, symmetric, no dominant mass, normal nipple-areolar complex, no lymphadenopathy, and no nipple discharge CHEST: Normal inspiratory effort ABDOMEN: soft, non-tender, and no masses PELVIC: external genitalia normal, normal Bartholin's glands, urethra, Friedenswald's glands, no vulvar lesions, no cervical lesions, good vaginal support, physiologic discharge present, normal appearing perineal body and perianal region BIMANUAL: uterus normal size, shape and consistency, no adnexal masses, and non-tender RECTOVAGINAL: deferred. NEURO: alert and oriented x3,exam grossly non-focal EXTREMITIES: normal ASSESSMENT/PLAN: 1) Health maintenance: Pap done with HPV. Mammogram starting age 40. 2) Contraception: tubal sterilization. Contraceptive options reviewed and information provided. 3) STD screening: Declined STD check. 4) Follow up one year or sooner as needed s/p hospitalization w/ elevated LFTs, f/u w/ PCP Desires wt management referal Jaylan Syed MD documented in this encounter [facility] 07-05-[address] [facility] 07-05-[address] [facility] 07-05-2024 Note [facility] Medical Records Department [address] [place] [address] Discharge Summary 07/05/24 1333 MR#: [id number] Acct: [id number] Name: LIUDMILA WORLEY Rep #: [id number] : 1985 38 From: Tristen Harrison DO PCP: Dr. Mena Vernon MD Status:DIS IN [place] [facility] [id number] Providers Date of Admission: 07/04/24 Date of Discharge: 07/05/24 Primary Care Physician: Dr. Mena Vernon MD Consultations 07/04/24 10:59 Consult: Gastroenterology Routine Consulting Provider: [facility]y Gastro[facility] Reason for Consult: acute cholecysitis EMERGENT Consult: No Notified: Yes Date Notified: 07/04/24 Time Notified: 10:15 Method of Notification: Text Consult: General Surgery Routine Consulting Provider: Veronica Austin Reason for Consult: Acute cholecystitis with cholelithiasis EMERGENT Consult: No Notified: Yes Date Notified: 07/04/24 Time Notified: 10:15 Method of Notification: ED Physician Initiated Reason For Visit: ACUTE CHOLECYSTITIS Diagnosis Discharge Diagnosis (1) Cholelithiasis: Status: Acute Code(s): K80.20 - Calculus of gallbladder without cholecystitis without obstruction (2) Elevated LFTs: Status: Acute Code(s): R79.89 - Other specified abnormal findings of blood chemistry Medications at Discharge Home Medications dextroamphetamine-amphetamine 30 mg tablet (Adderall) 30 mg PO 0800,1200 11/08/21 multivitamin 1 tab PO DAILY 11/08/21 lisinopril 5 mg tablet 5 mg PO DAILY 07/04/24 Hospital Course Operations None Procedures - (Chest x-ray, gallbladder ultrasound, CT abdomen/pelvis with IV contrast) Summary of Care Provided Minutes Spent on Discharge: 35 Hospital Course: Patient is a 38-year-old female who presented to [facility] ED on 07/04/2024 with RUQ abdominal pain. Short hospital course as noted below. Patient discharged home in stable condition on 07/05. 1. RUQ abdominal pain with elevated LFTs ??? GI and general surgery followed. Initially seemed consistent with acute cholecystitis. However, gallbladder ultrasound showed only cholelithiasis with no evidence of acute cholecystitis, and CT abdomen pelvis with IV contrast also showed normal-appearing gallbladder and no biliary duct dilation. LFTs on admit of total bili 0.80, direct bili 0.54, AST 594, ALT 352, alk phos 135; roughly remained stable on hospital day 2. Per GI, unclear etiology but autoimmune hepatitis is a possibility. Significant lab workup sent. Stable on hospital day 2 and wished to go home with close outpatient GI follow-up, and she was discharged home on 07/05. 2. Hypertension ??? Continue home lisinopril. 3. Class III obesity ??? BMI 40 on admit. Encouraged weight loss. 4. ADHD ??? Continue home Adderall on discharge. *Patient notably was admitted under inpatient status but recovered more quickly than expected and was able to be discharged home on hospital day 2. Total clinical time spent by myself addressing the patient's medical issues, reviewing all the data, and collaborating with patient's care team: 35 minutes. Physical Exam Const alert, oriented x3 and no apparent distress Constitutional Narrative: Pleasant younger female, class III obesity, mildly fatigued appearing but otherwise sitting back comfortably in bed, conversing normally, in no acute distress. General Appearance: cooperative and comfortable HEENT normocephalic, head/scalp atraumatic, hearing grossly normal bilaterally, nasal mucous membranes and turbinates normal and moist oral mucous membranes Eyes PERRL, EOMs intact bilaterally and conjunctivae normal Neck full ROM Chest inspection of chest normal Resp normal respiratory effort, normal air movement, no use of accessory muscles and clear to auscultation bilaterally Cardio regular rate, regular rhythm, no murmurs and peripheral pulses 2+ throughout GI normal to inspection, nondistended, normoactive bowel sounds, soft to palpation, non-tender and non- distended Back/Spine normal ROM Extremity normal to inspection, full ROM and no pedal edema Skin no rashes or lesions noted Psych mental status grossly normal Weight / BMI Weight Weight: 99.3 kg Body Mass Index (BMI) 40.0 ABG / Lab / Microbiology Data 07/05/24 04:23 07/05/24 04:23 Laboratory: Laboratory Results - last 24 hr 07/04/24 06:36: GGT 213 H 07/05/24 04:23: Iron 209 H, TIBC 316, Iron Saturation 66.0 H, Unsaturated IBC 107 L, Ferritin 23 07/05/24 09:20: ESR 9, Iron 258 H, TIBC 352, Iron Saturation 73.3 H, Unsaturated IBC 94 L, Ferritin 28, C-React Prot Ext Range 6.50 H Radiography Diagnostic Testing: Radiology Impression Abdomen/Pelvis CT 07/05/24 06:53 IMPRESSION: Nondistended gallbladder with appearance of edema, gallbladder fossa fluid for ex (more content not included)... [facility] 07-05-[address] [facility] 07-05-2024 Consult note Note Date/Time July 05, 2024 1:05pm [facility] Medical Records Department [address] [place] [address] Consultation - Surgical 07/05/24 0836 MR#: [id number] Acct: [id number] Name: LIUDMILA WORLEY Rep #:[id number] : 1985 38 From: Veronica Austin MD PCP: Dr. Mena Vernon MD Status:AD M IN Location: MS3 [id number] Assessment & Plan Assessment/Plan (1) Cholelithiasis: (2) Elevated LFTs: PLAN: Plan Will await GI workup to see if due to gallbladder/cholelithiasis vs liver primary etiology. Did briefly discuss cholecystectomy with patient and at this would be more of a primary liver issue cholecystectomy would not help at this point. Did review patient's CAT scan as well as her ultrasound with the patient. Patient does have some small gallstones no wall thickening on ultrasound, no evidence of inflammation on ultrasound. If this is questions on CT however ultrasound is a better modality for this. Discussed with patient that depending on further workup may determine whether ornot cholecystectomy is warranted. This may be done as an outpatient procedure according to imaging with no obvious inflammation-if it would be beneficial. Reviewed the anatomy with the patient and discussed the procedure: laparoscopic cholecystectomy with possible cholangiograms, possible open. Review risks including but not limited to bleeding, infection, hernia, bile leak, retained gallstones requiring another procedure ERCP- Endoscopic Retrograde Cholangiopancreatography, injury to another organ (bile ducts, common bile duct,small bowel, etc.) and conversion to an open procedure. All questions were answered. Dr. Magdaleno will be covering tomorrow. Veronica Austin M.D. Pager: [phone] [facility] [address] [place] [address], [address] [place] [address] Office: [phone] HPI Consult Data Date of Consult: 07/05/24 HPI Narrative HPI Narrative: LIUDMILA WORLEY, is a 38 F who presents due to right upper quadrant/epigastric pain. Patient states that started 2 nights ago about 11 PM patient did not eat prior to this. Patient does not give a history of right upper quadrant pain after eating 30 minutes to an hour. Patient states that it came in waves with start of dull and then increased. Patient states it was a 10 out of 10 when shewas in the ER she did get morphine. Patient has had no pain since. Patient denies any nausea and vomiting. Patient previously was seeing Sada in October2023 and did have elevated LFTs at that time as well with the AST and ALT in [id number] the rest of the liver functions were normal. Patient had an ultrasound of the gallbladder which again showed some gallstones but no signs of cholecystitis. Patient's ultrasound in our ER also showed normal wall at 2.2 mm, normal common bile duct at 4.7 mm, no pericholecystic fluid, small gallstones. The patient's AST and ALT were elevated in the 4-500s with a small elevation of the direct bilirubin 0.4 and normal total bilirubin. This morning the ALT did go up even higher to 726 AST slightly fell and direct went slightly higher to 0.7 alk phos still remained mildly elevated at 191. [facility] Medical History Wears glasses Depression Anxiety Alcohol use Migraine headache Former smoker Hypertension Hx of vaginal delivery ADHD Home Medications ?Medication ?Instructions ?Recorded ?Last Taken ?Type dextroamphetamine-amphetamine 30 30 mg PO 0800,1200 07/03/24 History mg tablet (Adderall) multivitamin 1 tab PO DAILY 11/08/2106/09 History lisinopril 5 mg tablet 5 mg PO DAILY 07/04/2407/04 History Allergy/AdvReac Type Severity Reaction Status Date / Time metformin AdvReac Diarrhea Verified 07/04/24 11:01 Family History no significant family his Surgical History History of tonsillectomy and adenoidectomy Social History household members: spouse Smoking Status: Former smoker substance use type: does not use ROS Constitutional Constitutional: Denies fever(s) Eyes Eyes: Denies change in vision ENT HEENT: Denies dysphagia Cardiovascular Cardiovascular: Denies chest pain Respiratory/Chest Respiratory/Chest: Denies cough Gastrointestinal Gastrointestinal: Reports abdominal pain, nausea and vomiting; Denies diarrhea or hematemesis Genitourinary Genitourinary: Denies dysuria Integumentary Integumentary: Denies rash Neurologic Neurologic: Denies focal weakness Psychiatric Psychiatric: Denies anxiety Hematologic/Lymphatic Hematologic/Lymphatic: Denies easy bleeding Physical Exam Const alert, oriented x3 and no apparent distress HEENT normocephalic and head/scalp atraumatic Resp normal respiratory effort Cardio regular rate GI soft to palpation, non-tender and non-distended Palpation: Negative for guarding Extremity no clubbing, cyanosis or edema Neuro CN's II-XII intact bilaterally Psych mental status grossly normal Lab / Micro Data 07/05/24 04:23 07/05/24 04:23 Labs: Laboratory Results - last 24 hr 07/04/24 06:36: Magnesium 1.9 07/04/24 08:55: Urine Color Yellow, Urine Clarity Clear, Urine pH 7.0, Ur Specific [place] 1.010, Urine Protein 30 H, Urine Glucose (UA) Normal, Urine Ketones Negative, Urine Occult Blood Negative, Urine Nitrite Negative, Urine Bilirubin Negative, Urine Urobilinogen Normal, Ur Leukocyte Esterase Negative, Urine RBC 0 SEEN, Urine WBC 0-5 SEEN, Ur Squamous Epith Cells 0-5 SEEN, Urine Bacteria 0 SEEN, Urine Mucus 0 SEEN, Urine Test Negative 07/04/24 09:40: PT 13.5, INR 1.0, APTT 23.9 L, Blood Type AB POSITIVE, Antibody Screen NEGATIVE 07/05/24 03:44: Urine Test Negative 07/05/24 04:23: WBC 4.6, RBC 4.26, Hgb 10.9 L, Hct 33.4 L, MCV 78.4 L, MCH 25.6 L, MCHC 32.6, RDW Std Deviation 46.1 H, RDW Coeff of María 16.0 H, Plt Count 282, MPV 10.0, Immature Gran % (Auto) 0.200, Neut % (Auto) 60.3, Lymph % (Auto) 25.2,Wright % (Auto) 9.9, Eos % (Auto) 3.5, Baso % (Auto) 0.9, Absolute Neuts (auto) 2.8, Absolute Lymphs (auto) 1.15, Nucleated RBC % 0, Sodium 140, Potassium 3.8, Chloride 107, Carbon Dioxide 25.2, Anion Gap 8, BUN 4, Creatinine 0.51 L, Estim Creat Clear Calc 166.71, Est GFR (MDRD) Non-Af 124, BUN/Creatinine Ratio 7.2 L, Glucose 91, Calcium 8.3, Total Bilirubin 1.21, Direct Bilirubin 0.70 H, AST 442 H, ALT 726 H, Alkaline Phosphatase 191 H, Total Protein 6.2, Albumin 3.6, Globulin 2.5 Imaging Radiology Impression Gallbladder Ultrasound 07/04/24 06:53 IMPRESSION: Cholelithiasis without sonographic evidence of acute cholecystitis. [facility] Chest [facility] 07/04/24 09:26 IMPRESSION: No Acute Findings. Reading [facility] Abdomen/Pelvis CT 07/05/24 06:53 IMPRESSION: Nondistended gallbladder with appearance of edema, gallbladder fossa fluid for example coronal 49 concerning for possible cholecystitis, clinically correlate. No evidence of biliary ductal dilation. Small amount of left lower quadrant and pelvic free fluid. Reading Location: [id number] Charges/Coding Visit Charges Inpatient E&M: 32138 Init Hosp L3 07/05/24 1305 <Electronically signed by Veronica Austin MD> Cosigner Signature (if applicable): CC: Dr. Mena Vernon MD~ Signed [facility] Work Phone: [phone] 499-354604-28-2025 Radiology Diagnostic study note [facility] Imaging Services [address] [place] [address] [id number] Abdomen/Pelvis W IV Cont ONLY MR#: [id number] Acct: [id number] Name: LIUDMILA WORLEY Rep #: [id number] : 1985 F 38 From: Lucien Souza MD PCP: Dr. Mena Vernon MD Status: AD M IN Study:Abdomen/Pelvis W IV Cont ONLY Date of E xam: 07/05/24 Exam# [id number] Ordering Dr: Julissa Mcfarland DO PROCEDURE: ABDOMEN/PELVIS W IV CONT ONLY 07/05/2024 REASON FOR EXAM: ELEVATED LFT'S TECHNIQUE: Abdomen and pelvis CT with intravenous contrast. Coronal and Sagittal reconstruction series were provided. PATIENT PREPARATION: Per protocol ORAL CONTRAST TYPE: None. CONTRAST: 98 cc Isovue-300 IV One or more dose reduction techniques were used (e.g., Automated exposure control, adjustment of the mA and/or kV according to patient size, use of iterative reconstruction technique. RADIATION DOSE SUMMARY: CTDlvol: 23.90 mGy DLP: 1237.80 mGycm COMPARISON: None available FINDINGS: Bibasilar atelectasis. The liver, adrenal glands, kidneys, pancreas and spleen appear within limits. Nondistended gallbladder with appearance of edema, gallbladder fossa fluid for example coronal 49 concerning for possible cholecystitis, clinically correlate. No evidence of biliary ductal dilation. Abdominal aorta appears within limits. No adenopathy. No bowel dilation or free air. Normal caliber appendix without secondary signs. The ovaries, uterus and bladder appear within limits. 2 cm follicle left ovary. Small amount of left lower quadrant and pelvic free fluid. The visualized osseous structures appear within limits. CT/Abdomen/Pelvis W IV Cont ONLY IMPRESSION: Nondistended gallbladder with appearance of edema, gallbladder fossa fluid for example coronal 49 concerning for possible cholecystitis, clinically correlate. No evidence of biliary ductal dilation. Small amount of left lower quadrant and pelvic free fluid. Reading Location: [id number] CC: Dr. Mena Vernon MD; Sergio Friend, DO ~ Formula Clerk: Signed [facility]04-27-2025 History and physical note Author Juan Hdez [facility] Note Date/Time July 04, 2024 11: 35am [facility] Medical Records Department [address] [place] [id number] H&P Exam - Hospitalist 07/04/24 1011 MR#: [id number] Acct: [id number] Name: LIUDMILA WORLEY Rep #:[id number] : 1985 38 From: Juan Valenzuela PCP: Dr. Mena Vernon MD Status:AD M IN Location: MO3 [id number] HPI - General General Date of Admission: 07/04/24 Date of Service: 07/04/24 Chief Complaint: Right upper quadrant biliary colic HPI Narrative LIUDMILA WORLEY, is a 38 F who came to ER with right upper quadrant colicky pain since 11 AM yesterday. She described her pain as colicky, gripping sensation started last night, waxing and waning till 2 AM and then she fell asleep. She woke up at 5 AM with pain that brought her to ED. She has mild nausea but denies vomiting. No fever but felt cold sweats. She had similar butless severe right upper quadrant pain October 2023 and she went to [facility] where she had ultrasound. She was told that she has a gallbladder stone and probably she has elevated transaminases as per Dr. Austin at that time. I tried to log into [employer] to check it but could not. She had right upper quadrant sonogram in ED shows cholelithiasis without features of acute cholecystitis. ED physician consulted and she wanted to admit under medicine with GI consult. [facility] Medical History Wears glasses Depression Anxiety Alcohol use Migraine headache Former smoker Hypertension Hx of vaginal delivery ADHD Home Medications ?Medication ?Instructions ?Recorded ?Last Taken ?Type dextroamphetamine-amphetamine 30 30 mg PO 0800,1200 07/03/24 History mg tablet (Adderall) multivitamin 1 tab PO DAILY 11/08/2106/09 History lisinopril 5 mg tablet 5 mg PO DAILY 07/04/2407/04 History Allergy/AdvReac Type Severity Reaction Status Date / Time metformin AdvReac Diarrhea Verified 07/04/24 11:01 Family History no significant family his Surgical History History of tonsillectomy and adenoidectomy Social History household members: spouse Smoking Status: Former smoker substance use type: does not use ROS ROS Narrative Constitutional: Reports fatigue and weakness. No fever. HEENT: Reports systems reviewed and no addt'l complaints, except as documented Respiratory/Chest: No acute shortness of breath or respiratory distress or wheezing. CVS: Denies chronic heart disease. Gastrointestinal: Bowel movement normal. Rest as described in HPI Genitourinary: Denies burning urination or new urinary tract symptoms Musculoskeletal: Denies acute joint pain or limited range of motion. No acute injury Neurologic: Denies seizure-like symptoms. Psychiatric: History of ADHD on Adderall skin: No ulcer. No rash Endocrinology: Reports systems reviewed and no addt'l complaints, except as documented Hematologic/Lymphatic: Reports systems reviewed and no addt'l complaints, exceptas documented Rest 14 ROS are negative except as mentioned in HPI Vital Signs Vital Signs Vital Signs: 07/04/24 06:20 07/04/24 06:47 07/04/24 08:49 Temperature 97.5 F L Temperature Source Oral Pulse Rate 85 85 84 Respiratory Rate 18 20 H 18 Blood Pressure 153/102 H 136/83 H 146/68 H Blood Pressure Mean 119 100 94 Pulse Ox 100 100 96 Oxygen Delivery Method Room Air Room Air Room Air 07/04/24 09:46 Temperature 98.3 F Temperature Source Pulse Rate 72 Respiratory Rate 18 Blood Pressure 116/68 Blood Pressure Mean 84 Pulse Ox 100 Oxygen Delivery Method Weight Weight: 218 lb 14.704 oz Body Mass Index (BMI) 40.0 Physical Exam Narrative Seen and examined Abdomen was examined after patient received morphine in ED. Abdominal pain is much better. General: Alert, Oriented x3, Cooperative HEENT: Atraumatic, PERRLA, EOMI, Normocephalic Oral: No Gingival or Mucosal Lesions/ Ulcerations Neck: Supple, No JVD, Negative Carotid Bruits Chest wall/Lungs: Air entry diminished in bilateral lung bases. No crepitation/rhonchi Cardiovascular: Regular rate, Regular Rhythm, Normal S1, Normal S2, No M/G/R Abdomen: Bowel Sounds Present, Soft, tenderness present over right subcostal margin at midclavicular line. [place] sign positive. No guarding or rigidity. : No dysuria. No renal angle tenderness. No suprapubic tenderness. Extremities: No edema, Capillary Refill Less than 3 Seconds Skin: No rashes, No breakdown Musculoskeletal: No Tenderness to Palpation of Joints or Extremities. Neurological: Cranial nerves II-XII grossly intact, DTR 2+/4. No acute focal neurological deficit. Psych/Mental Status: Normal Affect, Appropriate. Results Lab / Micro Data 07/04/24 06:36 07/04/24 06:36 Labs: Laboratory Results - last 24 hr 07/04/24 06:36: WBC 7.6, RBC 4.65, Hgb 11.9 L, Hct 36.0 L, MCV 77.4 L, MCH 25.6 L, MCHC 33.1, RDW Std Deviation 44.5 H, RDW Coeff of María 15.9 H, Plt Count 312, MPV 10.0, Immature Gran % (Auto) 0.400, Neut % (Auto) 79.3 H, Lymph % (Auto) 12.7 L, Wright % (Auto) 6.9, Eos % (Auto) 0.4, Baso % (Auto) 0.3, Absolute Neuts (auto) 6.0, Absolute Lymphs (auto) 0.96, Nucleated RBC % 0, Sodium 138, Potassium 4.0, Chloride 102, Carbon Dioxide 23.0, Anion Gap 13, BUN 8, Creatinine 0.56 L, Estim Creat Clear Calc 152.99, Est GFR (MDRD) Non-Af 121, BUN/Creatinine Ratio 15.0, Glucose 105 H, Calcium 9.3, Total Bilirubin 0.80, Direct Bilirubin 0.54 H, AST 594 H, ALT 352 H, Alkaline Phosphatase 135 H, Total Protein 6.6, Albumin 4.2, Globulin 2.4, Lipase 56 07/04/24 08:55: Urine Color Yellow, Urine Clarity Clear, Urine pH 7.0, Ur Specific [place] 1.010, Urine Protein 30 H, Urine Glucose (UA) Normal, Urine Ketones Negative, Urine Occult Blood Negative, Urine Nitrite Negative, Urine Bilirubin Negative, Urine Urobilinogen Normal, Ur Leukocyte Esterase Negative, Urine RBC 0 SEEN, Urine WBC 0-5 SEEN, Ur Squamous Epith Cells 0-5 SEEN, Urine Bacteria 0 SEEN, Urine Mucus 0 SEEN, Urine Test Negative 07/04/24 09:40: PT 13.5, INR 1.0, APTT 23.9 L Imaging Radiology Impression Gallbladder Ultrasound 07/04/24 06:53 IMPRESSION: Cholelithiasis without sonographic evidence of acute cholecystitis. Reading Location: [place] [address] Chest X-Ray 07/04/24 09:26 IMPRESSION: No Acute Findings. Reading [facility] Assessment & Plan Assessment/Plan (1) Acute cholecystitis with acute cholangitis: PLAN: Plan This 38-year-old female is being admitted for right upper quadrant colicky pain for 1. Acute cholecystitis with cholelithiasis: Patient is being admitted to [facility] floor. IV fluid. Pain control. Lab evaluation shows normal WBC count,ALT 352 AST 594 elevated. ALP 135. Total bilirubin normal. Lipase normal. Right upper quadrant sonogram shows cholelithiasis with normal GB wall, no pericholecystic fluid. Clinically it seems patient has cholecystitis with biliary colic, [place] sign positive and elevated transaminases. ED physician consulted surgeon and wanted GI to see for therefore regional engineer consulted. I do not think antibiotic is indicated at this time. Patient has similar episode of biliary colic/acute cholecystitis in October 2023. Liquid diet. Monitor liver chemistry and GGT. 2. Hypertension: Blood pressure is normal. On lisinopril 5 mg daily continued. 3. ADHD on Adderall. Continued DVT prophylaxis, low risk. Ambulation encouraged. Living will/advanced directive/end of life care: Patient does not have living will or advanced directive. Her is next of kin. After discussion of benefits/risks procedures involved with full code, DNR CC arrest and DNR CC, the patient opted for full code. Patient does want artificial life support including intubation, tube feed, ventilator and/chest compression, central venous catheter, vasopressor and DC shock if needed Total time spent in [id number] encounter in discussion of advanced directive 17 minutes. Laboratory Results 07/04/24 06:36: WBC 7.6, RBC 4.65, Hgb 11.9 L, Hct 36.0 L, MCV 77.4 L, MCH 25.6 L, MCHC 33.1, RDW Std Deviation 44.5 H, RDW Coeff of María 15.9 H, Plt Count 312, MPV 10.0, Immature Gran % (Auto) 0.400, Neut % (Auto) 79.3 H, Lymph % (Auto) 12.7 L, Wright % (Auto) 6.9, Eos % (Auto) 0.4, Baso % (Auto) 0.3, Absolute Neuts (auto) 6.0, Absolute Lymphs (auto) 0.96, Nucleated RBC % 0, Sodium 138, Potassium 4.0, Chloride 102, Carbon Dioxide 23.0, Anion Gap 13, BUN8, Creatinine 0.56 L, Estim Creat Clear Calc 152.99, Est GFR (MDRD) Non-Af 121, BUN/Creatinine Ratio 15.0, Glucose 105 H, Calcium 9.3, Total Bilirubin 0.80, Direct Bilirubin 0.54 H, AST 594 H, ALT 352 H, Alkaline Phosphatase 135 H, Total Protein 6.6, Albumin 4.2, Globulin 2.4, Lipase 56 07/04/24 08:55: Urine Color Yellow, Urine Clarity Clear, Urine pH 7.0, Ur Specific [place] 1.010, Urine Protein 30 H, Urine Glucose (UA) Normal, Urine Ketones Negative, Urine Occult Blood Negative, Urine Nitrite Negative, Urine Bilirubin Negative, Urine Urobilinogen Normal, Ur Leukocyte Esterase Negative, Urine RBC 0 SEEN, Urine WBC 0-5 SEEN, Ur Squamous Epith Cells 0-5 SEEN, Urine Bacteria 0 SEEN, Urine Mucus 0 SEEN, Urine Test Negative 07/04/24 09:40: PT 13.5, INR 1.0, APTT 23.9 L, Blood Type Pending, Antibody Screen Pending Clinical Impression(s) from Imaging Studies Gallbladder Ultrasound 07/04/24 06:53 IMPRESSION: Cholelithiasis without sonographic evidence of acute cholecystitis. Reading Location: [place] [address] Chest X-Ray 07/04/24 09:26 IMPRESSION: No Acute Findings. Reading Location[facility] Charges/Coding Visit Charges Inpatient E&M: 28726 Init Hosp L3 Procedures Hospitalists Procedures: 82666 Advncd Care Plan 30 Min 07/04/24 1135 <Electronically signed by Juan Hdez MD> Cosigner Signature (if applicable): CC: Dr. Mena Vernon MD; Dr. Juan Hdez MD~ Signed [facility] Work Phone: [phone]) 336-940204-27-2025 Discharge summary Author Harshil Sanches [facility] Note Date/Time July 04, 2024 10: 44am [facility] Medical Records Department [address] [place] [address] Emergency Department Summary 07/04/24 MR#: [id number] Acct: [id number] Name: LIUDMILA WORLEY Rep #:[id number] : 1985 38 From: Harshil Garcia PCP: Dr. Mena Vernon MD Status:AD M IN Location: MS3 [id number] Gavin Alford DO on 07/04/24 at 1044 Preop EKG: Sinus rate of 78, no ST changes. QTc 435. 1 view chest x-ray: No acute process. I spoke with Dr. Hdez for admission. 07/04/24 1044<Electronically signed by Gavin Sparrow> Cosigner Signature (if applicable): cc: Dr. Mena Vernon MD ~* Signed ADDENDUM by Dr. Gavin Alford DO on 07/04/24 at 0929 Patient signed out to me pending laboratory studies and repeat ultrasound. Labswhite count 7.6, lipase normal liver enzymes elevated AST 594 ALT 352 direct bili 0.54. Gallbladder ultrasound multiple gallstones normal common bile duct. Pain is controlled at this time she reports her last initial flare October of last year diagnosed at [place]. She is told to follow-up with her PCP she has not had any issues until yesterday evening she ate nodule cheese for lunch nothing for dinner. I spoke with on-call surgeon Dr. Austin, reviewed her imagings and labs along with labs from [place]. Reported her AST was 100 at that time. She notes gallstones and normal common bile duct however she recommended starting her on Zosyn admission to medicine to get GI involved for possible need for ERCP first before her cholecystectomy. I will speak with hospitalist service. 07/04/24 0929<Electronically signed by Gavin Sparrow> Cosigner Signature (if applicable): cc: Dr. Mena Vernon MD ~* Signed HPI History of Present Illness Chief Complaint: Abd Pain [facility] Medical History ADHD Alcohol use Anxiety Depression Former smoker Hx of vaginal delivery Hypertension Migraine headache Wears glasses Home Medications ?Medication ?Instructions ?Recorded ?Last Taken ?Type dextroamphetamine-amphetamine 30 30 mg PO BID 11/08/21 Unknown History mg tablet (Adderall) multivitamin 1 tab PO DAILY 11/08/21 Unkn own History ibuprofen 600 mg tablet 600 mg PO Q6H PRN Pain 10 da ys #30 11/09/21 Unknown Rx TABLETS doxycycline monohydrate 100 mg 100 mg PO BID #10 CAPSU LES 06/22/22 Unknown Rx capsule benzonatate 100 mg capsule 200 mg PO TID PRN PRN cough 07/04/24 Unknown History dextroamphetamine-amphetamine 30 30 mg PO BID 07/04/24 Unknown History mg tablet (Adderall) lisinopril 5 mg tablet 5 mg PO DAILY 07/04/24 Unkno wn History Allergy/AdvReac Type Severity Reaction Status Date / Time No Known Allergies Allergy Verified 11/05/23 16:00 Family History no significant family his Surgical History History of tonsillectomy and adenoidectomy Social History household members: spouse Smoking Status: Former smoker substance use type: does not use EXAM Physical Exam Const Vital Signs: 07/04/24 06:20 07/04/24 06:47 Temperature 97.5 F L Temperature Source Oral Pulse Rate 85 85 Respiratory Rate 18 20 H Blood Pressure 153/102 H 136/83 H Blood Pressure Mean 119 100 Pulse Ox 100 100 Oxygen Delivery Method Room Air Room Air MDM MDM MDM Narrative Medical decision making narrative: HISTORY OF PRESENT ILLNESS: Chief complaint: Abdominal pain 38-year-old female presents with right upper quad abdominal pain. Notes pain isworse with food. Notes she thinks is her gallbladder. States she had an ultrasound done in October 2023 showed gallstones. States has not followed with general surgery. States she only follows with primary doctor. Denies fevers. Denies chest pain. Denies shortness of breath. Denies trouble urinating. Denies melena hematochezia. Notes history of a tubal ligation otherwise no abdominal surgical history. REVIEW OF SYSTEMS: Pertinent positives: Abdominal pain Pertinent negatives: PHYSICAL EXAM: Nursing triage notes reviewed, Vital signs reviewed Constitutional: please see mdm HENT: MMM Eyes: Pupils equal round and reactive to light, Extraocular muscles intact Neck: No stridor, no JVD, full neck ROM Lungs: Clear to auscultation, No wheezing or rales. No increased work of breathing, no conversational dyspnea, no accessory muscle use, no nasal flaring. No respiratory distress noted Heart: Regular rate and rhythm, No murmurs, No rubs and No gallops, 2+ distal pulses (radial, femoral, posterior tibial) in all extremities Abdomen: Soft, right upper quadrant TTP, no positive [place] sign but no rigidity, rebound or guarding, no obvious peritoneal signs, no palpable pulsatile abdominal masses, no auscultated abdominal bruit : No CVAT Extremities: No edema Neuro: No new focal neurological deficits, cranial nerves II through XII intact,5/5 strength in all present extremities. Intact sensation to light touch in all present extremities, 2+ reflexes bilateral patella tendons. Skin: No rash or lesions noted MEDICAL DECISION MAKING: Chief Complaint: please see HPI External records reviewed: Reviewed prior imaging studies Factors affecting care: Gallstone Social determinants of health: Denies alcohol or illicit drug use History obtained from others: none Consults: none MDM Narrative: The patient was initially hemodynamically stable, afebrile and nontoxic- appearing. Exam with right upper quadrant TTP, positive [place] sign I considered the following differential diagnosis: AAA, small bowel obstruction,abdominal perforation, appendicitis, pancreatitis, hepatobiliary pathology (acute cholecystitis), mesenteric ischemia, pathology (ie nephrolithiasis, pyelonephritis). Patient was initially treated with IV fluid, Zofran and morphine. I obtained a broad lab and imaging workup including a right upper quadrant ultrasound to further elucidate etiology of patient's complaints ALL IMAGES (IF OBTAINED) HAVE BEEN PERSONALLY REVIEWED AND INTERPRETED BY MYSELF. CBC without leukocytosis, noted mild anemia, no thrombocytopenia. Awaiting CMP, lipase, right upper quadrant ultrasound, reassessment. Signed outto a.m. physician pending workup. The patient and/or family, caregivers express understanding. The patient and/orfamily, caregivers agrees with the plan. Shared decision making: I will have a discussion with the patient and or visitors regarding risk/benefits of further testing or admission. They will be made aware of of the risk/benefits inherent in this decision they will be given the opportunity to voice understanding. Total critical care time today provided was at least 0 minutes. This excludes separately billable procedures. Critical care time (if documented) is secondary to the patient having high probability of clinically significant/life threatening deterioration in the patient's condition which required my urgent intervention. Impression: 1. Right upper quadrant abdominal pain 2. Gallstones Dispo: Pending lab and imaging evaluation, reassessment and final disposition This note was generated with [employer] dictation software. It may contain incorrectwords, spelling, and punctuation that were not noted in review of the chart prior to signing. Lab Data Labs: Laboratory Results - last 24 hr 07/04/24 06:36 WBC 7.6 RBC 4.65 Hgb 11.9 L Hct 36.0 L MCV 77.4 L MCH 25.6 L MCHC 33.1 RDW Std Deviation 44.5 H RDW Coeff of María 15.9 H Plt Count 312 MPV 10.0 Immature Gran % (Auto) 0.400 Neut % (Auto) 79.3 H Lymph % (Auto) 12.7 L Wright % (Auto) 6.9 Eos % (Auto) 0.4 Baso % (Auto) 0.3 Absolute Neuts (auto) 6.0 Absolute Lymphs (auto) 0.96 Nucleated RBC % 0 Discharge Plan Triage Chief Complaint: Abd Pain ED Provider: Harshil Sanches Dx/Rx/DC Orders Prescriptions: No Action multivitamin Tablet 1 tab PO DAILY dextroamphetamine-amphetamine [Adderall] 30 mg tablet 30 mg PO BID Patient Comments: TAKE 1 TABLET BY MOUTH 2CTIMES A DAY ibuprofen [ibuprofen] 600 MG tablet 600 mg PO Q6H PRN (Reason: Pain) 10 Days Qty: 30 1RF doxycycline monohydrate 100 mg capsule 100 mg PO BID Qty: 10 0RF benzonatate 100 mg capsule 200 mg PO TID PRN PRN (Reason: cough) lisinopril 5 mg tablet 5 mg PO DAILY dextroamphetamine-amphetamine [Adderall] 30 mg tablet 30 mg PO BID Rx Instructions: administer doses at least 4-6 hours apart Primary Care Provider: Mena Vernon Referrals: Mena Vernon MD [Primary Care Provider] - Print Language: Djiboutian What to do if you have Problems For any increased pain, shortness of breath, bleeding, nausea or vomiting, chestpain, or any unexpected problems, contact your Primary Care Provider. Call [facility] ([phone]) or report to the closest Emergency Room. Call 911 if necessary. 07/04/24 0707 <Electronically signed by Harshil Sanches DO> Cosigner Signature (if applicable): CC: Dr. Mena Vernon MD ~ Signed [facility] Work Phone: 1(688) 540-540604-27-2025 Evaluation note* Diagnosis Onset Date Resolution Status Admit Date Acute cholecystitis with acu te cholangitis acute July 04, 2024 10:12am Cholelithiasis acute June 10:12am Elevated LFTs acute July 04, 2024 10:12am [facility] Work Phone: [phone]) 240-691704-27-2025 Evaluation note* Diagnosis Onset Date Resolution Status Admit Date Elevated LFTs acute July 04, 2024 10:12am Acute cholecystitis with acu te cholangitis resolved July 04, 2024 10:12am Cholelithiasis inactive June 10:12am [facility] Work Phone: 1(796) 885-160604-27-2025 History and physical note [facility] Medical Records Department [address] [place] [address] H&P Exam - Hospitalist 07/04/24 1011 MR#: [id number] Acct: [id number] Name: LIUDMILA WORLEY Rep #:[id number] : 1985 38 From: Juan Valenzuela PCP: Dr. Mena Vernon MD Status:AD M IN [place] [facility] [id number] HPI - General General Date of Admission: 07/04/24 Date of Service: 07/04/24 Chief Complaint: Right upper quadrant biliary colic HPI Narrative LIUDMILA WORLEY, is a 38 F who came to ER with right upper quadrant colicky pain since 11 AM yesterday. She described her pain as colicky, gripping sensation started last night, waxing and waning till 2 AM and then she fell asleep. She woke up at 5 AM with pain that brought her to ED. She has mildnausea but denies vomiting. No fever but felt cold sweats. She had similar butless severe right upper quadrant pain October 2023 and she went to [facility] where she had ultrasound. She was toldthat she has a gallbladder stone and probably she has elevated transaminases as per Dr. Norman suazo time. I tried to log into cliniisync to check it but could not. She had right upper quadrant sonogram in ED shows cholelithiasis without features of acute cholecystitis. ED physician consulted and she wanted to admit under medicine with GI consult. [facility] Medical History Wears glasses Depression Anxiety Alcohol use Migraine headache Former smoker Hypertension Hx of vaginal delivery ADHD Home Medications ?Medication ?Instructions ?Recorded ?Last Taken ?Type dextroamphetamine-amphetamine 30 30 mg PO 0800,1200 07/03/24 History mg tablet (Adderall) multivitamin 1 tab PO DAILY 11/08/21/09/01 History lisinopril 5 mg tablet 5 mg PO DAILY 07/04/2407/04 History Allergy/AdvReac Type Severity Reaction Status Date / Time metformin AdvReac Diarrhea Verified 07/04/24 11:01 Family History no significant family his Surgical History History of tonsillectomy and adenoidectomy Social History household members: spouse Smoking Status: Former smoker substance use type: does not use ROS ROS Narrative Constitutional: Reports fatigue and weakness. No fever. HEENT: Reports systems reviewed and no addt'l complaints, except as documented Respiratory/Chest: No acute shortness of breath or respiratory distress or wheezing. CVS: Denies chronic heart disease. Gastrointestinal: Bowel movement normal. Rest as described in HPI Genitourinary: Denies burning urination or new urinary tract symptoms Musculoskeletal: Denies acute joint pain or limited range of motion. No acute injury Neurologic: Denies seizure-like symptoms. Psychiatric: History of ADHD on Adderall skin: No ulcer. No rash Endocrinology: Reports systems reviewed and no addt'l complaints, except as documented Hematologic/Lymphatic: Reports systems reviewed and no addt'l complaints, exceptas documented Rest 14 ROS are negative except as mentioned in HPI Vital Signs Vital Signs Vital Signs: 07/04/24 06:20 07/04/24 06:47 07/04/24 08:49 Temperature 97.5 F L Temperature Source Oral Pulse Rate 85 85 84 Respiratory Rate 18 20 H 18 Blood Pressure 153/102 H 136/83 H 146/68 H Blood Pressure Mean 119 100 94 Pulse Ox 100 100 96 Oxygen Delivery Method Room Air Room Air Room Air 07/04/24 09:46 Temperature 98.3 F Temperature Source Pulse Rate 72 Respiratory Rate 18 Blood Pressure 116/68 Blood Pressure Mean 84 Pulse Ox 100 Oxygen Delivery Method Weight Weight: 218 lb 14.704 oz Body Mass Index (BMI) 40.0 Physical Exam Narrative Seen and examined Abdomen was examined after patient received morphine in ED. Abdominal pain is much better. General: Alert, Oriented x3, Cooperative HEENT: Atraumatic, PERRLA, EOMI, Normocephalic Oral: No Gingival or Mucosal Lesions/ Ulcerations Neck: Supple, No JVD, Negative Carotid Bruits Chest wall/Lungs: Air entry diminished in bilateral lung bases. No crepitation/rhonchi Cardiovascular: Regular rate, Regular Rhythm, Normal S1, Normal S2, No M/G/R Abdomen: Bowel Sounds Present, Soft, tenderness present over right subcostal margin at midclavicular line. Sherwood sign positive. No guarding or rigidity. : No dysuria. No renal angle tenderness. No suprapubic tenderness. Extremities: No edema, Capillary Refill Less than 3 Seconds Skin: No rashes, No breakdown Musculoskeletal: No Tenderness to Palpation of Joints or Extremities. Neurological: Cranial nerves II-XII grossly intact, DTR 2+/4. No acute focal neurological deficit. Psych/Mental Status: Normal Affect, Appropriate. Results Lab / Micro Data 07/04/24 06:36 07/04/24 06:36 Labs: Laboratory Results - last 24 hr 07/04/24 06:36: WBC 7.6, RBC 4.65, Hgb 11.9 L, Hct 36.0 L, MCV 77.4 L, MCH 25.6 L, MCHC 33.1, RDW Std Deviation 44.5 H, RDW Coeff of María 15.9 H, Plt Count 312, MPV 10.0, Immature Gran % (Auto) 0.400,Neut % (Auto) 79.3 H, Lymph % (Auto) 12.7 L, Wright % (Auto) 6.9, Eos % (Auto) 0.4, Baso % (Auto) 0.3, Absolute Neuts (auto) 6.0, Absolute Lymphs (auto) 0.96, Nucleated RBC % 0, Sodium 138, Potassium 4.0, Chloride 102, Carbon Dioxide 23.0, Anion Gap 13, BUN 8, Creatinine 0.56 L, Estim Creat Clear Calc 152.99, Est GFR (MDRD) Non-Af 121, BUN/Creatinine Ratio 15.0, Glucose 105 H, Calcium 9.3, Total Bilirubin 0.80, Direct Bilirubin 0.54 H, AST 594 H, ALT 352 H, Alkaline Phosphatase 135 H, Total Protein 6.6, Albumin 4.2, Globulin 2.4, Lipase 56 07/04/24 08:55: Urine Color Yellow, Urine Clarity Clear, Urine pH 7.0, Ur Specific [place] 1.010, Urine Protein 30 H, Urine Glucose (UA) Normal, Urine Ketones Negative, Urine Occult Blood Negative, Urine Nitrite Negative, Urine Bilirubin Negative, Urine Urobilinogen Normal, Ur Leukocyte Esterase Negative, Urine RBC 0 SEEN, Urine WBC 0-5 SEEN, Ur Squamous Epith Cells 0-5 SEEN, Urine Bacteria 0 SEEN, Urine Mucus 0 SEEN, Urine Test Negative 07/04/24 09:40: PT 13.5, INR 1.0, APTT 23.9 L Imaging Radiology Impression Gallbladder Ultrasound 07/04/24 06:53 IMPRESSION: Cholelithiasis without sonographic evidence of acute cholecystitis. Reading Location: [place] [address] Chest X-Ray 07/04/24 09:26 IMPRESSION: No Acute Findings. Reading [facility] Assessment & Plan Assessment/Plan (1) Acute cholecystitis with acute cholangitis: PLAN: Plan This 38-year-old female is being admitted for right upper quadrant colicky pain for 1. Acute cholecystitis with cholelithiasis: Patient is being admitted to [facility]Sur floor. IV fluid. Pain control. Lab evaluation shows normal WBC count,ALT 352 AST 594 elevated. ALP 135. Total bilirubin normal. Lipase normal. Right upper quadrant sonogram shows cholelithiasis with normal GB wall, no pericholecystic fluid. Clinically it seems patient has cholecystitis with biliary colic, Sherwood signpositive and elevated transaminases. ED physician consulted surgeon and wanted GI to see for therefore regional engineer consulted. I do not think antibiotic is indicated at this time. Patient has similar episode of biliary colic/acute cholecystitis in October 2023. Liquid diet. Monitor liver chemistry and GGT. 2. Hypertension: Blood pressure is normal. On lisinopril 5 mg daily continued. 3. ADHD on Adderall. Continued DVT prophylaxis, low risk. Ambulation encouraged. Living will/advanced directive/end of life care: Patient does not have living will or advanced directive. Her is next of kin. After discussion of benefits/risks procedures involved with full code, DNR CC arrest and DNR CC, the patient opted for full code. Patient does want artificial life support including intubation, tube feed, ventilator and/chest compression, central venous catheter, vasopressor and DC shock if needed Total time spent in [id number] encounter in discussion of advanced directive 17 minutes. Laboratory Results 07/04/24 06:36: WBC 7.6, RBC 4.65, Hgb 11.9 L, Hct 36.0 L, MCV 77.4 L, MCH 25.6 L, MCHC 33.1, RDW Std Deviation 44.5 H, RDW Coeff of María 15.9 H, Plt Count 312, MPV 10.0, Immature Gran % (Auto) 0.400,Neut % (Auto) 79.3 H, Lymph % (Auto) 12.7 L, Wright % (Auto) 6.9, Eos % (Auto) 0.4, Baso % (Auto) 0.3, Absolute Neuts (auto) 6.0, Absolute Lymphs (auto) 0.96, Nucleated RBC % 0, Sodium 138, Potassium 4.0, Chloride 102, Carbon Dioxide 23.0, Anion Gap 13, BUN8, Creatinine 0.56 L, Estim Creat Clear Calc 152.99, Est GFR (MDRD) Non-Af 121, BUN/Creatinine Ratio 15.0, Glucose 105 H, Calcium 9.3, Total Bilirubin 0.80, Direct Bilirubin 0.54 H, AST 594 H, ALT 352 H, Alkaline Phosphatase 135 H, Total Protein 6.6, Albumin 4.2, Globulin 2.4, Lipase 56 07/04/24 08:55: Urine Color Yellow, Urine Clarity Clear, Urine pH 7.0, Ur Specific [place] 1.010, Urine Protein 30 H, Urine Glucose (UA) Normal, Urine Ketones Negative, Urine Occult Blood Negative, Urine Nitrite Negative, Urine Bilirubin Negative, Urine Urobilinogen Normal, Ur Leukocyte Esterase Negative, Urine RBC 0 SEEN, Urine WBC 0-5 SEEN, Ur Squamous Epith Cells 0-5 SEEN, Urine Bacteria 0 SEEN, Urine Mucus 0 SEEN, Urine Test Negative 07/04/24 09:40: PT 13.5, INR 1.0, APTT 23.9 L, Blood Type Pending, Antibody Screen Pending Clinical Impression(s) from Imaging Studies Gallbladder Ultrasound 07/04/24 06:53 IMPRESSION: Cholelithiasis without sonographic evidence of acute cholecystitis. Reading Location: [place] [address] Chest X-Ray 07/04/24 09:26 IMPRESSION: No Acute Findings. Reading Location: [facility] Charges/Coding Visit Charges Inpatient E&M: 23096 Init Hosp L3 Procedures Hospitalists Procedures: 62530 Advncd Care Plan 30 Min 07/04/24 1135 Cosigner Signature (if applicable): CC: Dr. Mena Vernon MD; Dr. Juan Hdez MD~ Signed [facility]04-27-2025 Discharge summary [facility] Records Department [address] [place] [address] Emergency Department Summary 07/04/24 MR#: [id number] Acct: [id number] Name: LIUDMILA WORLEY Rep #:[id number] : 1985 38 From: Harshil Garcia PCP: Dr. Mena Vernon MD Status:AD M IN Location: [facility] [id number] Gavin Alford DO on 07/04/24 at 1044 Preop EKG: Sinus rate of 78, no ST changes. QTc 435. 1 view chest x-ray: No acute process. I spoke with Dr. Hdez for admission. 07/04/24 1044 Cosigner Signature (if applicable): cc: Dr. Mena Vernon MD ~* Signed ADDENDUM by Dr. Gavin Alford DO on 07/04/24 at 0929 Patient signed out to me pending laboratory studies and repeat ultrasound. Labswhite count 7.6, lipase normal liver enzymes elevated AST 594 ALT 352 direct bili 0.54. Gallbladder ultrasound multiple gallstones normal common bile duct. Pain is controlled at this time she reports her last initial flare October of last year diagnosed at [place]. She is told to follow-up with her PCP she has not had any issues until yesterday evening she ate nodule cheese for lunch nothing for dinner. I spoke with on-call surgeon Dr. Austin, reviewed her imagings and labs along with labs from [place]. Reported her AST was 100 at that time. She notes gallstones and normal common bile duct however she recommended starting her on Zosyn admission to medicine to get GI involved for possible need for ERCP first before her cholecystectomy. I will speak with hospitalist service. 07/04/24928 Cosigner Signature (if applicable): cc: Dr. Mena Vernon MD ~* Signed HPI History of Present Illness Chief Complaint: [facility] Medical History ADHD Alcohol use Anxiety Depression Former smoker Hx of vaginal delivery Hypertension Migraine headache Wears glasses Home Medications ?Medication ?Instructions ?Recorded ?Last Taken ?Type dextroamphetamine-amphetamine 30 30 mg PO BID 11/08/21 Unknown History mg tablet (Adderall) multivitamin 1 tab PO DAILY 11/08/21 Unkn own History ibuprofen 600 mg tablet 600 mg PO Q6H PRN Pain 10 da ys #30 11/09/21 Unknown Rx TABLETS doxycycline monohydrate 100 mg 100 mg PO BID #10 CAPSU LES 06/22/22 Unknown Rx capsule benzonatate 100 mg capsule 200 mg PO TID PRN PRN cough 07/04/24 Unknown History dextroamphetamine-amphetamine 30 30 mg PO BID 07/04/24 Unknown History mg tablet (Adderall) lisinopril 5 mg tablet 5 mg PO DAILY 07/04/24 Unkno wn History Allergy/AdvReac Type Severity Reaction Status Date / Time No Known Allergies Allergy Verified 11/05/23 16:00 Family History no significant family his Surgical History History of tonsillectomy and adenoidectomy Social History household members: spouse Smoking Status: Former smoker substance use type: does not use EXAM Physical Exam Const Vital Signs: 07/04/24 06:20 07/04/24 06:47 Temperature 97.5 F L Temperature Source Oral Pulse Rate 85 85 Respiratory Rate 18 20 H Blood Pressure 153/102 H 136/83 H Blood Pressure Mean 119 100 Pulse Ox 100 100 Oxygen Delivery Method Room Air Room Air [facility] Narrative Medical decision making narrative: HISTORY OF PRESENT ILLNESS: Chief complaint: Abdominal pain 38-year-old female presents with right upper quad abdominal pain. Notes pain isworse with food. Notes she thinks is her gallbladder. States she had an ultrasound done in October 2023 showed gallstones. States has not followed with general surgery. States she only follows with primary doctor. Denies fevers. Denies chest pain. Denies shortness of breath. Denies trouble urinating. Denies melena hematochezia. Notes history of a tubal ligation otherwise no abdominal surgical history. REVIEW OF SYSTEMS: Pertinent positives: Abdominal pain Pertinent negatives: PHYSICAL EXAM: Nursing triage notes reviewed, Vital signs reviewed Constitutional: please see mdm HENT: MMM Eyes: Pupils equal round and reactive to light, Extraocular muscles intact Neck: No stridor, no JVD, full neck ROM Lungs: Clear to auscultation, No wheezing or rales. No increased work of breathing, no conversational dyspnea, no accessory muscle use, no nasal flaring. No respiratory distress noted Heart: Regular rate and rhythm, No murmurs, No rubs and No gallops, 2+ distal pulses (radial, femoral, posterior tibial) in all extremities Abdomen: Soft, right upper quadrant TTP, no positive Sherwood sign but no rigidity, rebound or guarding, no obvious peritoneal signs, no palpable pulsatile abdominal masses, no auscultated abdominal bruit : No CVAT Extremities: No edema Neuro: No new focal neurological deficits, cranial nerves II through XII intact,5/5 strength in allpresent extremities. Intact sensation to light touch in all present extremities, 2+ reflexes bilateral patella tendons. Skin: No rash or lesions noted MEDICAL DECISION MAKING: Chief Complaint: please see HPI External records reviewed: Reviewed prior imaging studies Factors affecting care: Gallstone Social determinants of health: Denies alcohol or illicit drug use History obtained from others: none Consults: none [facility] Narrative: The patient was initially hemodynamically stable, afebrile and nontoxic- appearing. Exam with right upper quadrant TTP, positive Sherwood sign I considered the following differential diagnosis: AAA, small bowel obstruction,abdominal perforation, appendicitis, pancreatitis, hepatobiliary pathology (acute cholecystitis), mesenteric ischemia, pathology (ie nephrolithiasis, pyelonephritis). Patient was initially treated with IV fluid, Zofran and morphine. I obtained a broad lab and imaging workup including a right upper quadrant ultrasound to further elucidate etiology of patient's complaints ALL IMAGES (IF OBTAINED) HAVE BEEN PERSONALLY REVIEWED AND INTERPRETED BY MYSELF. CBC without leukocytosis, noted mild anemia, no thrombocytopenia. Awaiting CMP, lipase, right upper quadrant ultrasound, reassessment. Signed outto a.m. physician pending workup. The patient and/or family, caregivers express understanding. The patient and/orfamily, caregivers agrees with the plan. Shared decision making: I will have a discussion with the patient and or visitors regarding risk/benefits of further testing or admission. They will be made aware of of the risk/benefits inherent in this decision they will be given the opportunity to voice understanding. Total critical care time today provided was at least 0 minutes. This excludes separately billable procedures. Critical care time (if documented) is secondary to the patient having high probability ofclinically significant/life threatening deterioration in the patient's condition which required my urgent intervention. Impression: 1. Right upper quadrant abdominal pain 2. Gallstones Dispo: Pending lab and imaging evaluation, reassessment and final disposition This note was generated with EntrenaYa dictation software. It may contain incorrectwords, spelling, and punctuation that were not noted in review of the chart prior to signing. Lab Data Labs: Laboratory Results - last 24 hr 07/04/24 06:36 WBC 7.6 RBC 4.65 Hgb 11.9 L Hct 36.0 L MCV 77.4 L MCH 25.6 L MCHC 33.1 RDW Std Deviation 44.5 H RDW Coeff of María 15.9 H Plt Count 312 MPV 10.0 Immature Gran % (Auto) 0.400 Neut % (Auto) 79.3 H Lymph % (Auto) 12.7 L Wright % (Auto) 6.9 Eos % (Auto) 0.4 Baso % (Auto) 0.3 Absolute Neuts (auto) 6.0 Absolute Lymphs (auto) 0.96 Nucleated RBC % 0 Discharge Plan Triage Chief Complaint: Abd Pain ED Provider: Harshil Sanches Dx/Rx/DC Orders Prescriptions: No Action multivitamin Tablet 1 tab PO DAILY dextroamphetamine-amphetamine [Adderall] 30 mg tablet 30 mg PO BID Patient Comments: TAKE 1 TABLET BY MOUTH 2CTIMES A DAY ibuprofen [ibuprofen] 600 MG tablet 600 mg PO Q6H PRN (Reason: Pain) 10 Days Qty: 30 1RF doxycycline monohydrate 100 mg capsule 100 mg PO BID Qty: 10 0RF benzonatate 100 mg capsule 200 mg PO TID PRN PRN (Reason: cough) lisinopril 5 mg tablet 5 mg PO DAILY dextroamphetamine-amphetamine [Adderall] 30 mg tablet 30 mg PO BID Rx Instructions: administer doses at least 4-6 hours apart Primary Care Provider: Mena Vernon Referrals: Mena Vernon MD [Primary Care Provider] - Print Language: Djiboutian What to do if you have Problems For any increased pain, shortness of breath, bleeding, nausea or vomiting, chestpain, or any unexpected problems, contact your Primary Care Provider. Call [facility] ([phone]) or report tothe closest Emergency Room. Call 911 if necessary. 07/04/24 0707 Cosigner Signature (if applicable): CC: Dr. Mena Vernon MD ~ Signed [facility]04-27-2025 Radiology Diagnostic study note [facility] Imaging Services [address] [place], [place] [address] Chest 1 View (Portable) MR#: [id number] Acct: [id number] Name: LIUDMIAL WORLEY Rep #: [id number] : 1985 F 38 From: Lamar Patel MD PCP: Dr. Mena Vernon MD Status: RE G ER Study:Chest 1 View (Portable) Date of Exam: 07/04/24 Exam# [id number] Ordering Dr: Gavin Alford DO PROCEDURE: CHEST 1 VIEW (PORTABLE) 07/04/2024 REASON FOR EXAM: PREOP TECHNIQUE: Frontal view of the chest. COMPARISON: None FINDINGS: Hardware: None Heart: Cardiac and mediastinal contours are stable. Lungs: The lungs are clear. Bones: The bones are unremarkable. Other: RAD/Chest 1 View (Portable) IMPRESSION: No Acute Findings. Reading Location: [facility] CC: Dr. Mena Vernon MD; Dr. Gavni Alford DO ~ Formula Clerk: Signed [facility]04-27-2025 Radiology Diagnostic study note [facility] Imaging Services [address] [place], [place] [id number] Gallbladder MR#: [id number] Acct: [id number] Name: LIUDMILA WORLEY Rep #: [id number] : 1985 F 38 From: Maynor Lopez MD PCP: Dr. Mena Vernon MD Status: RE G ER Study:Gallbladder Date of Exam: 07/04/24 Exam# [id number] Ordering Dr: Brenda Sanches DO PROCEDURE: GALLBLADDER 07/04/2024 REASON FOR EXAM: RUQ TTP, +SHERWOOD SIGN COMPARISON: None. FINDINGS: Real-time ultrasound images. Unremarkable hepatic echogenicity. The liver measures 15.7 cm. Unremarkable flow in the main portal vein. The liver is normal in size measuring 15.7 cm. Mildly distended gallbladder measuring 7.4 cm. Negative sonographic Sherwood. Multiple gallstones are noted. No evidence of pericholecystic free fluid. Normal gallbladder wall thickness measuring 2.2 mm. Nondilated common bile duct measuring 4.7 mm. Unremarkable visualized pancreas. Unremarkable right kidney measuring 11.6 x 5.8 x 4.5 cm. Normal right renal cortical thickness measuring 1.4 cm. US/Gallbladder IMPRESSION: Cholelithiasis without sonographic evidence of acute cholecystitis. Reading [facility] CC: Dr. Mena Vernon MD; Dr. Harshil Sanchse DO ~ Formula Clerk: Signed [facility]03-18-2025 Telephone encounter Note* Telephone Encounter - Leyla Hussein LPN - 05/25/2024 8:49 AM EDT Fax rec'd from [facility]. Approval for adderall 30mg from 05/24/24 to 05/23/26. Faxed to pharmacy and pt notified via my chart. [facility]03-18-2025 Miscellaneous Notes* Telephone Encounter - Leyla Hussein LPN - 05/25/2024 8:49 AM EDT Fax rec'd from [facility]. Approval for adderall 30mg from 05/24/24 to 05/23/26. Faxed to pharmacy and pt notified via my chart. * Telephone Encounter - Leora Gambino MA - 05/24/2024 11:13 AM EDT Called [facility] [phone] and did not receive chart notes. [facility] rep advised should re-submitted again for Name Brand : Adderall 30 mg BID and faxed chart notes Auth ID [id number] * Telephone Encounter - Leyla Hussein LPN - 05/19/2024 4:12 PM EDT Denial rec'd. They note they need notes noting pt has positive effects with current treatment. Office notes faxed for review. * Telephone Encounter - Leora Gambino MA - 05/18/2024 11:04 AM EDT Called and spoke to [facility] PA is still in process that was done over the phone for Brand name ADDERALL 30 mg BID. Fax received yesterday was from covermeds submission. Leora Gambino MA * Telephone Encounter - Ashley Sprague RN - 05/18/2024 10:36 AM EDT Pt states it is for the brand name Adderall to get the CHAZ [address]. She states Dr Vernon knows about this. * Telephone Encounter - Leyla Hussein LPN - 05/18/2024 8:18 AM EDT Fax rec'd from [facility] noting no PA is needed for dextroamphetamine/amphetamine. Please advise member enrolled in managed care plan to take their prescriptions to an in network pharmacy to have filled. Pt notified via my chart. * Telephone Encounter - Leora Gambino MA - 05/17/2024 1:34 PM EDT Tried to complete through covermymeds but would not process. Called [facility] at [phone] and completed with rep for adderall 30 mg BID. Advised will notify office once decision made through fax Leora Gambino MA * Telephone Encounter - Ashley Sprague RN - 05/17/2024 12:19 PM EDT Pt states she is out of medication and this has happened before where she has had to have the PA put through before. Pt was asking if this could be processed as Stat or more quickly as the Pt is out of the medication. I told her it typically takes a few days for it to go through and it is dependanton her insurance. Prior Authorization Documentation Prior authorization requested for the following medication: Medication: Adderall Provider: Dr Vernon Insurance Company Name: [facility] [employer] Phone number: [phone] Patient ID number: [id number] Pharmacy Name: [facility] Telephone number: [phone] [facility] in [facility] Telephone encounter Note * Telephone Encounter - Leora Gambino MA - 05/24/2024 11:13 AM EDT Called [facility] [phone] and did not receive chart notes. [facility] meyer advised should re-submitted again for Name Brand : Adderall 30 mg BID and faxed chart notes Auth ID [id number] [facility]03-17-2025 Telephone encounter Note* Telephone Encounter - Leora Gambino MA - 05/24/2024 10:44 AM EDT Called Beverley [phone] and did not receive chart notes. Beverley meyer advised should re-submitted again for Name Brand : Adderall 30 mg BID and faxed chart notes Auth ID [id number] [facility]03-17-2025 Miscellaneous Notes* Telephone Encounter - Leora Gambino MA - 05/24/2024 10:44 AM EDT Called Beverley [phone] and did not receive chart notes. Beverley meyer advised should re-submitted again for Name Brand : Adderall 30 mg BID and faxed chart notes Auth ID [id number] documented in this encounter[facility] Telephone encounter Note * Telephone Encounter - Leyla Hussein LPN - 05/19/2024 4:12 PM EDT Denial rec'd. They note they need notes noting pt has positive effects with current treatment. Office notes faxed for review. [facility]03-11-2025 Telephone encounter Note* Telephone Encounter - Leora Gambino MA - 05/18/2024 11:04 AM EDT Called and spoke to beverley PA is still in process that was done over the phone for Brand name ADDERALL 30 mg BID. Fax received yesterday was from covermymeds submission. Leora Gambino MA [facility]03-11-2025 Telephone encounter Note* Telephone Encounter - Ashley Sprague RN - 05/18/2024 10:36 AM EDT Pt states it is for the brand name Adderall to get the CHAZ 1. She states Dr Vernon knows about this. [facility]03-11-2025 Telephone encounter Note* Telephone Encounter - Leyla Hussein LPN - 05/18/2024 8:18 AM EDT Fax rec'd from [facility] noting no PA is needed for dextroamphetamine/amphetamine. Please advise member enrolled in managed care plan to take their prescriptions to an in network pharmacy to have filled. Pt notified via my chart. [facility]03-10-2025 Telephone encounter Note* Telephone Encounter - Leora Gambino MA - 05/17/2024 1:34 PM EDT Tried to complete through covermymeds but would not process. Called beverley at [phone] and completed with rep for adderall 30 mg BID. Advised will notify office once decision made through fax Leora Gambino MA [facility]03-10-2025 Telephone encounter Note* Telephone Encounter - Ashley Sprague RN - 05/17/2024 12:19 PM EDT Pt states she is out of medication and this has happened before where she has had to have the PA put through before. Pt was asking if this could be processed as Stat or more quickly as the Pt is out of the medication. I told her it typically takes a few days for it to go through and it is dependanton her insurance. Prior Authorization Documentation Prior authorization requested for the following medication: Medication: Adderall Provider: Dr Vernon Insurance Company Name: [employer] Phone number: [phone] Patient ID number: [id number] Pharmacy Name: [facility] Telephone number: [phone] [facility]02-10-2025 NoteHNO ID: [id number] Author: MENA VERNON MD Service: ? Author Type: Physician Type: Progress Notes Filed: 04/19/2024 09:45 Note Text: This note was created using [employer]. Subjective Liudmila Worley is a 38 year old female. Patient presents with: F/U 3 Month SUBJECTIVE: Liudmila Worley is a 38 year old year old lady here today for 3 month follow up appointment for review of medical conditions. Liudmila Worley is a 38-year-old female with a history of HTN and iron deficiency, presenting for a follow-up visit. Liudmila reports intermittent numbness and pruritus in the left paraspinal region, just below the bra strap area, which has been occurring for approximately 2 years. These symptoms are localized to the same area and can persist intermittently throughout the day. She denies any specific triggers or activities that exacerbate the symptoms and has not noticed any associated muscle tension or discomfort in the area. She has not scratched the area to the point of causing bleeding or bruising. She also reports persistent fatigue, which she attributes to a combination of hormonal changes, stress, and a busy lifestyle. She is uncertain if her fatigue is related to her known iron deficiency. She has been making efforts to incorporate iron-rich foods into her diet but denies consuming liver. Liudmila has been actively working on weight management and has recently started using a weight loss angélica to help with portion control and mindful eating. She reports a tendency to eat late at night, often choosing sweeter foods, but has been trying to make healthier choices, such as [place] yogurt and fruit parfaits. She also reports experiencing dyspnea, which she notes has been a persistent issue since a previous COVID-19 infection. She recently had a bout of influenza A, which she describes as the worst flu she has ever experienced, with symptoms similar to COVID-19. She notes that her is still experiencing congestion and other symptoms. PAST MEDICAL HISTORY Diagnosis Date Abnormal Pap smear of cervix 2016 ASCUS pap , negative HPV Adult attention deficit disorder Obesity, unspecified Current Outpatient Medications Medication Sig guaiFENesin (MUCINEX) 600 mg 12 hr tablet Take 2 tablets by mouth two times a day. ADDERALL 30 mg tablet Take 1 tablet by mouth two times a day for 30 days. Patient should start on April 05, 2024. lisinopril (ZESTRIL) 5 mg tablet Take 1 tablet by mouth once daily. amoxicillin-clavulanate potassium (AUGMENTIN) 875-125 mg per tablet Take 1 tablet by mouth two times a day for 5 days. (Patient not taking: Reported on 04/19/2024) benzonatate (TESSALON PERLE) 100 mg capsule Take 2 capsules by mouth three times a day as needed. (Patient not taking: Reported on 04/19/2024) ADDERALL 30 mg tablet Take 1 tablet by mouth two times a day for 30 days. Patient should start on March 06, 2024. ADDERALL 30 mg tablet Take 1 tablet by mouth two times a day for 30 days. Patient should start on February 06, 2024. No current facility-administered medications for this visit. Review of Systems Objective BP 128/84 Pulse 97 Resp 16 Wt 98 kg (216 lb 0.8 oz) LMP 09/30/2023 BMI 38.27 kg/m? Last 5 Encounter Wt Readings: Date: Wt: 04/19/2024 98 kg (216 lb 0.8 oz) 04/14/2024 99.7 kg (219 lb 12.8 oz) 10/03/2023 98.9 kg (218 lb) 08/31/2023 97 kg (213 lb 13.5 oz) 05/29/2023 99.5 kg (219 lb 5.7 oz) No waist measurement recorded Estimated body mass index is 38.27 kg/m? as calculated from the following: Height as of 10/22/22: 160 cm (5' 3). Weight as of this encounter: 98 kg (216 lb 0.8 oz). Last 5 Encounter BP Readings: Date: BP: 04/19/2024 128/84 04/14/2024 136/82 10/03/2023 138/78 08/31/2023 155/97[no meds this am[ 05/29/2023 163/120 Physical Exam Musculoskeletal: Back: Assessment and Plan # Attention deficit hyperactivity disorder (ADHD), unspecified ADHD type (F90.9) - Medication management with Adderall; prior authorization required for brand name. - Submitted prescription with note to pharmacy to initiate prior authorization process. - Next refill due on May 16. # Essential (primary) hypertension (I10) - Blood pressure readings improved from 130 mmHg to 120 mmHg. - Refilled lisinopril prescription. - Ordered labs to monitor blood pressure control. # Iron deficiency anemia, unspecified iron deficiency anemia type (D50.9) - Ordered labs to assess current iron levels. - Discussed dietary sources of iron. # Radiculopathy, thoracic region (M54.14) - Symptoms of localized numbness and pruritus in the left thoracic region, likely due to nerve impingement. - Recommended yoga and stretching exercises to improve posture and core strength. - Advised use of cool compresses and antihistamines like Claritin to alleviate pruritus. - Suggested trial of sxhb-ihh-mkaiowx lidocaine patches for localized sympt (more content not included)...[facility]02-10-2025 History of Present illness Narrative* Mena Vernon MD - 04/19/2024 9:13 AM EST Images from the original note were not included. This note was created using NoteWriter. Subjective Liudmila Worley is a 38 year old female. Patient presents with: F/U 3 Month SUBJECTIVE: Liudmila Worley is a 38 year old year old lady here today for 3 month follow up appointment for review of medical conditions. Liudmila Worley is a 38-year-old female with a history of HTN and iron deficiency, presenting for a follow-up visit. Liudmila reports intermittent numbness and pruritus in the left paraspinal region, just below the bra strap area, which has been occurring for approximately 2 years. These symptoms are localized to the same area and can persist intermittently throughout the day. She denies any specific triggers or activities that exacerbate the symptoms and has not noticed any associated muscle tension or discomfort in the area. She has not scratched the area to the point of causing bleeding or bruising. She also reports persistent fatigue, which she attributes to a combination of hormonal changes, stress, and a busy lifestyle. She is uncertain if her fatigue is related to her known iron deficiency. She has been making efforts to incorporate iron-rich foods into her diet but denies consuming liver. Liudmila has been actively working on weight management and has recently started using a weight lossapp to help with portion control and mindful eating. She reports a tendency to eat late at night, often choosing sweeter foods, but has been trying to make healthier choices, such as [place] yogurt andfruit parfaits. She also reports experiencing dyspnea, which she notes has been a persistent issue since a previousCOVID-19 infection. She recently had a bout of influenza A, which she describes as the worst flu she has ever experienced, with symptoms similar to COVID-19. She notes that her is still experiencing congestion and other symptoms. PAST MEDICAL HISTORY Diagnosis Date Abnormal Pap smear of cervix 2016 ASCUS pap , negative HPV Adult attention deficit disorder Obesity, unspecified Current Outpatient Medications Medication Sig guaiFENesin (MUCINEX) 600 mg 12 hr tablet Take 2 tablets by mouth two times a day. ADDERALL 30 mg tablet Take 1 tablet by mouth two times a day for 30 days. Patient should start on April 05, 2024. lisinopril (ZESTRIL) 5 mg tablet Take 1 tablet by mouth once daily. amoxicillin-clavulanate potassium (AUGMENTIN) 875-125 mg per tablet Take 1 tablet by mouth two times a day for 5 days. (Patient not taking: Reported on 04/19/2024) benzonatate (TESSALON PERLE) 100 mg capsule Take 2 capsules by mouth three times a day as needed. (Patient not taking: Reported on 04/19/2024) ADDERALL 30 mg tablet Take 1 tablet by mouth two times a day for 30 days. Patient should start on March 06, 2024. ADDERALL 30 mg tablet Take 1 tablet by mouth two times a day for 30 days. Patient should start on February 06, 2024. No current facility-administered medications for this visit. Review of Systems Objective BP 128/84 Pulse 97 Resp 16 Wt 98 kg (216 lb 0.8 oz) LMP 09/30/2023 BMI 38.27 kg/m Last 5 Encounter Wt Readings: Date: Wt: 04/19/2024 98 kg (216 lb 0.8 oz) 04/14/2024 99.7 kg (219 lb 12.8 oz) 10/03/2023 98.9 kg (218 lb) 08/31/2023 97 kg (213 lb 13.5 oz) 05/29/2023 99.5 kg (219 lb 5.7 oz) No waist measurement recorded Estimated body mass index is 38.27 kg/m as calculated from the following: Height as of 10/22/22: 160 cm (5' 3). Weight as of this encounter: 98 kg (216 lb 0.8 oz). Last 5 Encounter BP Readings: Date: BP: 04/19/2024 128/84 04/14/2024 136/82 10/03/2023 138/78 08/31/2023 155/97[no meds this am[ 05/29/2023 163/120 Physical Exam Musculoskeletal: Back: Assessment and Plan # Attention deficit hyperactivity disorder (ADHD), unspecified ADHD type (F90.9) - Medication management with Adderall; prior authorization required for brand name. - Submitted prescription with note to pharmacy to initiate prior authorization process. - Next refill due on May 16. # Essential (primary) hypertension (I10) - Blood pressure readings improved from 130 mmHg to 120 mmHg. - Refilled lisinopril prescription. - Ordered labs to monitor blood pressure control. # Iron deficiency anemia, unspecified iron deficiency anemia type (D50.9) - Ordered labs to assess current iron levels. - Discussed dietary sources of iron. # Radiculopathy, thoracic region (M54.14) - Symptoms of localized numbness and pruritus in the left thoracic region, likely due to nerve impingement. - Recommended yoga and stretching exercises to improve posture and core strength. - Advised use of cool compresses and antihistamines like Claritin to alleviate pruritus. - Suggested trial of gqhl-fsw-wujhfdo lidocaine patches for localized symptom relief. # Encounter for long-term current use of medication (Z79.049) - Reviewed and updated medication list. - Discontinued Augmentin and Tessalon Perles as they were not needed. - Removed guaifenesin (Mucinex) from the list as it was not picked up. # Obesity, Class II, BMI 35-39.9 (E66.812) - Weight decreased from 218 lbs to 216 lbs. - Discussed dietary habits and introduced a new weight loss angélica focusing on mindset and portion control. - Encouraged continuation of healthy eating practices and regular physical activity. Noted getting over influenza A. No bacterial superinfection noted. Mena Vernon MD documented in this encounterAv[facility] Instructions* Patient Instructions* Aliza Mcnamara APRN.[facility] - 04/14/2024 8:01 PM EST Rest, increase water intake Motrin or Tylenol as needed for fever or pain. Salt water gargles, chloraseptic spray or lozenges as needed for sore throat. Warm beverages, honey. Nasal saline spray as needed Cool mist humidifier at night A cold normally lasts 7-10 days. If your symptoms are lasting longer, develop fever, or worsening by that time instead of improving then return to clinic or follow up with PCP for re-evaluation. Tessalon Perles 2 every 8 hours, do not combine this with robitussin or delsym Mucinex as ordered Tylenol (generic acetaminophen) 500 mg-2 tabs every 8 hrs. as needed for fever and aches Ibuprofen 600 mg (3-200mg tablets) every 6 hours If no improvement start Augmentin as ordered ;* Seek medical care immediately, call 911, go to ER if you have chest pain, difficulty breathing, shortness of breath, inability to swallow. documented in this encounterAvita [facility]25 NoteHNO ID: [id number] Author: ALIZA MCNAMARA APRN.DELMA Service: ? Author Type: Nurse Practitioner Type: Progress Notes Filed: 04/14/2024 20:08 Note Text: Subjective The history is provided by the patient. No english as a second language instructor was used. HPI Liudmila Worley is a 38 year old female who presents today for CC of nasal congestion, cough, sinus pressure for 6-7 days. She has used tylenol, theraflu without relief. Daughter had influenza A yesterday. LMP 09/30/2023 Social History Tobacco Use Smoking status: Former Current packs/day: 0.00 Types: Cigarettes Quit date: 06/03/2008 Years since quittin.8 Smokeless tobacco: Never Tobacco comments: 2 Cigarettes per week Vaping Use Vaping status: Never Used Substance Use Topics Alcohol use: No Drug use: No PAST MEDICAL HISTORY Diagnosis Date Abnormal Pap smear of cervix 2016 ASCUS pap , negative HPV Adult attention deficit disorder Obesity, unspecified I have confirmed and edited as necessary, the [facility] Review of Systems Constitutional: Negative for chills and fever. HENT: Positive for congestion and sinus pain. Negative for ear pain and sore throat. Respiratory: Positive for cough. Negative for sputum production, shortness of breath and wheezing. Cardiovascular: Negative for chest pain. Gastrointestinal: Negative for abdominal pain, diarrhea, nausea and vomiting. Musculoskeletal: Negative for myalgias. Neurological: Negative for headaches. Objective Physical Exam Vitals and nursing note reviewed. HENT: Head: Normocephalic and atraumatic. Right Ear: Tympanic membrane, ear canal and external ear normal. Left Ear: Tympanic membrane, ear canal and external ear normal. Nose: Mucosal edema, congestion and rhinorrhea present. Right Sinus: No maxillary sinus tenderness or frontal sinus tenderness. Left Sinus: No maxillary sinus tenderness or frontal sinus tenderness. Mouth/Throat: Pharynx: Uvula midline. No oropharyngeal exudate or posterior oropharyngeal erythema. Cardiovascular: Rate and Rhythm: Normal rate and regular rhythm. Heart sounds: Normal heart sounds. Pulmonary: Effort: Pulmonary effort is normal. Breath sounds: Normal breath sounds. Lymphadenopathy: Head: Right side of head: No submental, submandibular or tonsillar adenopathy. Left side of head: No submental, submandibular or tonsillar adenopathy. Cervical: No cervical adenopathy. Skin: General: Skin is warm and dry. Neurological: Mental Status: She is alert. Psychiatric: Mood and Affect: Affect normal. ASSESSMENT/PLAN: 1. Viral URI - ICD9: 465.9, ICD10: J06.9 (primary diagnosis) - probable flu - Discussed viral etiology and rationale for treatment. - Symptomatic treatment with prn analgesia - Supportive care with fluids and rest - No testing done If no improvement by Friday, to start Augmentin 2. Acute cough - ICD9: 786.2, ICD10: R05.1 Peyman shrestha Diagnosis and treatment plan were discussed and questions were answered to the patient's satisfaction. Pt acknowledged understanding of concepts and follow up plan. Specific signs and symptoms that would indicate the need for higher level of care were discussed in detail warranting prompt ER evaluation. Al[facility] Mcnamara APRN.[facility] History of Present illness Narrative* Aliza Mcnamara APRN.[employer] - 04/14/2024 7:48 PM EST Subjective The history is provided by the patient. No english as a second language instructor was used. HPI Liudmila Worley is a 38 year old female who presents today for CC of nasal congestion, cough, sinus pressure for 6-7 days. She has used tylenol, theraflu without relief. Daughter had influenzaA yesterday. LMP 09/30/2023 Social History Tobacco Use Smoking status: Former Current packs/day: 0.00 Types: Cigarettes Quit date: 06/03/2008 Years since quittin.8 Smokeless tobacco: Never Tobacco comments: 2 Cigarettes per week Vaping Use Vaping status: Never Used Substance Use Topics Alcohol use: No Drug use: No PAST MEDICAL HISTORY Diagnosis Date Abnormal Pap smear of cervix 2016 ASCUS pap , negative HPV Adult attention deficit disorder Obesity, unspecified I have confirmed and edited as necessary, the [facility] Review of Systems Constitutional: Negative for chills and fever. HENT: Positive for congestion and sinus pain. Negative for ear pain and sore throat. Respiratory: Positive for cough. Negative for sputum production, shortness of breath and wheezing. Cardiovascular: Negative for chest pain. Gastrointestinal: Negative for abdominal pain, diarrhea, nausea and vomiting. Musculoskeletal: Negative for myalgias. Neurological: Negative for headaches. Objective Physical Exam Vitals and nursing note reviewed. HENT: Head: Normocephalic and atraumatic. Right Ear: Tympanic membrane, ear canal and external ear normal. Left Ear: Tympanic membrane, ear canal and external ear normal. Nose: Mucosal edema, congestion and rhinorrhea present. Right Sinus: No maxillary sinus tenderness or frontal sinus tenderness. Left Sinus: No maxillary sinus tenderness or frontal sinus tenderness. Mouth/Throat: Pharynx: Uvula midline. No oropharyngeal exudate or posterior oropharyngeal erythema. Cardiovascular: Rate and Rhythm: Normal rate and regular rhythm. Heart sounds: Normal heart sounds. Pulmonary: Effort: Pulmonary effort is normal. Breath sounds: Normal breath sounds. Lymphadenopathy: Head: Right side of head: No submental, submandibular or tonsillar adenopathy. Left side of head: No submental, submandibular or tonsillar adenopathy. Cervical: No cervical adenopathy. Skin: General: Skin is warm and dry. Neurological: Mental Status: She is alert. Psychiatric: Mood and Affect: Affect normal. ASSESSMENT/PLAN: 1. Viral URI - ICD9: 465.9, ICD10: J06.9 (primary diagnosis) - probable flu - Discussed viral etiology and rationale for treatment. - Symptomatic treatment with prn analgesia - Supportive care with fluids and rest - No testing done If no improvement by Friday, to start Augmentin 2. Acute cough - ICD9: 786.2, ICD10: R05.1 Peyman shrestha Diagnosis and treatment plan were discussed and questions were answered to the patient's satisfaction. Pt acknowledged understanding of concepts and follow up plan. Specific signs and symptoms that would indicate the need for higher level of care were discussed indetail warranting prompt ER evaluation. Aliza Mcnamara APRN.CNP documented in this encounterAvita [facility] Telephone encounter Note * Telephone Encounter - Fariha Syed LPN - 02/02/2024 1:21 PM EST Prescription Refill Information The patient has been identified by name and date of : Yes Caregiver verified no other encounters exist for this prescription request: Yes Caregiver confirmed with patient/requestor that no other refills are due, in the near future, with this provider at this time: Yes The last office visit in the department: 10/03/23 Does the patient have a future office visit with this provider/department: Yes 04/19/23 Requested Prescriptions Pending Prescriptions Disp Refills ADDERALL 30 mg tablet 60 tablet 0 Sig: Take 1 tablet by mouth two times a day for 30 days. ADDERALL 30 mg tablet 60 tablet 0 Sig: Take 1 tablet by mouth two times a day for 30 days. ADDERALL 30 mg tablet 60 tablet 0 Sig: Take 1 tablet by mouth two times a day for 30 days. Fariha Syed LPN February 02, 2024 1:22 PM [facility]11-25-2024 Miscellaneous Notes* Telephone Encounter - Fariha Syed LPN - 02/02/2024 1:21 PM EST Prescription Refill Information The patient has been identified by name and date of : Yes Caregiver verified no other encounters exist for this prescription request: Yes Caregiver confirmed with patient/requestor that no other refills are due, in the near future, with this provider at this time: Yes The last office visit in the department: 10/03/23 Does the patient have a future office visit with this provider/department: Yes 04/19/23 Requested Prescriptions Pending Prescriptions Disp Refills ADDERALL 30 mg tablet 60 tablet 0 Sig: Take 1 tablet by mouth two times a day for 30 days. ADDERALL 30 mg tablet 60 tablet 0 Sig: Take 1 tablet by mouth two times a day for 30 days. ADDERALL 30 mg tablet 60 tablet 0 Sig: Take 1 tablet by mouth two times a day for 30 days. Fariha Syed LPN February 02, 2024 1:22 PM documented in this encounterAvita [facility]09-[facility]24 Telephone encounter Note * Telephone Encounter - Leyla Hussein LPN - 12/03/2023 11:34 AM EDT Covermymeds PA response is Information regarding your request Electronic prior authorization not supported as no PA required for NDC and for member's age. Called the pharmacy and reviewed. Pharmacist says they have to call insurance every month to get anoverride. This was previously approved in [employer] until 04/26/24. [facility]09-25-2024 Miscellaneous Notes* Telephone Encounter - Leyla Hussein LPN - 12/03/2023 11:34 AM EDT Covermymeds PA response is Information regarding your request Electronic prior authorization not supported as no PA required for NDC and for member's age. Called the pharmacy and reviewed. Pharmacist says they have to call insurance every month to get anoverride. This was previously approved in [employer] until 04/26/24. * Telephone Encounter - Leyla Hussein LPN - 12/03/2023 11:25 AM EDT Unable to complete electronically. Will try on covermymeds. * Telephone Encounter - Aimee Ludwig RN - 12/03/2023 10:47 AM EDT PRIOR AUTHORIZATION Medication for Prior Authorization: Adderall 30 mg (Brand Name) Insurance Company: [employer] Patient insurance ID number: [id number] Aimee Ludwig RN documented in this encounterAvita Health [facility]09-[facility]-2024 Telephone encounter Note * Telephone Encounter - Leyla Hussein LPN - 12/03/2023 11:25 AM EDT Unable to complete electronically. Will try on covermymeds. [facility]09-25-2024 Telephone encounter Note* Telephone Encounter - Aimee Ludwig RN - 12/03/2023 10:47 AM EDT PRIOR AUTHORIZATION Medication for Prior Authorization: Adderall 30 mg (Brand Name) Insurance Company: [employer] Patient insurance ID number: [id number] Aimee Ludwgi RN [facility]08-30-2024 Note ORIGINAL EXAMINATION: LIMITED ABDOMINAL ULTRASOUND11/07/2023 9:53 am TECHNIQUE: Multiple real time sonographic images of the abdomen were obtained assessing sinclair-scale appearance and color Doppler. All images are recorded and archived. COMPARISON: None HISTORY: ORDERING SYSTEM PROVIDED HISTORY: Reason for Exam: ruq painreported nausea and chills. FINDINGS: PANCREAS: Partially obscured by bowel gas. The visualized portions of the pancreas are normal in size and echogenicity. LIVER: The visualized liver is normal in size, contour, and echogenicity with no hepatic mass identified. GALLBLADDER/BILARY: Negative sonographic Sherwood's sign. Cholelithiasis without evidence of gallbladder-wall thickening or pericholecystic fluid. Nointrahepatic biliary ductal dilatation. CBD measures 3 mm. RIGHT KIDNEY: The visualized right kidney is normal in length, parenchymal echogenicity, and cortical thickness. ASCITES: None. IMPRESSION: Cholelithiasis without secondary sonographic features of acute cholecystitis. I have personally reviewed the images of this examination and agree with the resident's findings and interpretation. Interpreted by: Demarco Gonzalez DO Preliminary Report By: Javad Stout Electronically signed By Demarco Gonzalez DO Dictated Date: 11/07/2023 10:00:27 AM Prelim Date: 11/07/2023 10:46:03 AM Sign Date: 11/07/2023 10:46:03 AM [facility]ing [facility] Discharge instructions Patient Education 11/05/2023 18:56:15 Abdominal Pain Abdominal Pain Abdominal pain is pain in the stomach or belly area. Everyone has this pain from time to time. In many cases it goes away on its own. But abdominal pain can sometimes be due to a serious problem, such as appendicitis. So it s important to know when to get help. Causes of abdominal pain There are many possible causes of abdominal pain. Common causes in adults include: Constipation, diarrhea, or gas Stomach acid flowing back up into the esophagus (acid reflux or heartburn) Severe acid reflux, called GERD (gastroesophageal reflux disease) A sore in the lining of the stomach or small intestine (peptic ulcer) Inflammation of the gallbladder, liver, or pancreas Gallstones or kidney stones Appendicitis Intestinal blockage An internal organ pushing through a muscle or other tissue (hernia) Urinary tract infections In women, menstrual cramps, fibroids, ovarian cysts, pelvic inflammatory disease, or endometriosis Inflammation or infection of the intestines, including Crohn's disease and ulcerative colitis Irritable bowel syndrome Diagnosing the cause of abdominal pain Your healthcare provider will give you a physical exam help find the cause of your pain. If needed,you will have tests. Belly pain has many possible causes. So it can be hard to find the reason for your pain. Giving details about your pain can help. Tell your provider where and when you feel the pain, and what makes it better or worse. Also let your provider know if you have other symptoms such as: Fever Tiredness Upset stomach (nausea) Vomiting Changes in bathroom habits Blood in the stool or black, tarry stool Weight loss that you can't explain (involuntary weight loss?) Also report any family history of stomach or intestinal problems, or cancers. Tell your provider about all your alcohol use and drug use. Tell your provider about all medicines you use, including herbs, vitamins, and supplements. Treating abdominal pain Some causes of pain need emergency medical treatment right away. These include appendicitis or a bowel blockage. Other problems can be treated with rest, fluids, or medicines. Your healthcare provider can give you specific instructions for treatment or self-care based on what is causing your pain. If you have vomiting or diarrhea, sip water or other clear fluids. When you are ready to eat solid foods again, start with small amounts of gund-ir-bruxvp, low- fat foods. These include apple sauce, toast, or crackers. When to get medical care Call 911 or go to the hospital right away if you: Can t pass stool and are vomiting Are vomiting blood or have bloody diarrhea or black, tarry diarrhea Have chest, neck, or shoulder pain Feel like you might pass out Have pain in your shoulder blades with nausea Have sudden, severe belly pain Have new, severe pain unlike any you have felt before Have a belly that is rigid, hard, and hurts to touch Call your healthcare provider if you have: Pain for more than 5 days Bloating for more than 2 days Diarrhea for more than 5 days A fever of 100.4 F (38 C) or higher, or as directed by your healthcare provider Pain that gets worse Weight loss for no reason Continued lack of appetite Blood in your stool How to prevent abdominal pain Here are some tips to help prevent abdominal pain: Eat smaller amounts of food at each meal. Don't eat greasy, fried, or other high-fat foods. Don't eat foods that give you gas. Exercise regularly. Drink plenty of fluids. To help prevent GERD symptoms: Quit smoking. Reduce alcohol and foods that increase stomach acid. Don't use aspirin or garq-qii-dsbrrqt pain and fever medicines, if possible. This includes nonsteroidal anti-inflammatory drugs (NSAIDs). Lose excess weight. Finish eating at least 2 hours before you go to bed or lie down. Raise the head of your bed. 1697-1797 [employer]. [address] [place] [address]. All rights reserved. This information is not intended as a substitute for professional medical care. Always follow yourhealthcare professional's instructions. Follow Up Care 11/05/2023 17:11:21 With:MENA VERNON MD Address: [address] [place] [id number]- When:2-4 days [facility] 08-28-2024 Note Discharge Instructions Thank you for allowing [facility] to assist you with your healthcare needs. The following is importantdischarge information regarding your hospital visit. Diagnosis from Today's Visit Abdominal pain What to Do Next Instructions from Your Care Team No qualifying data available. Post Acute Orders No qualifying data available. You Need to Schedule the Following Appointments Follow Up with MENA VERNON MD When:Within 2-4 days Where:[address] [place] [id number]- Allergies No Known Medication Allergies Medications Please ask your primary doctor or pharmacist before taking any other medication not listed, including over the counter drugs, herbal medications, vitamins and or supplements as they may interact withyour home medications. Please take this list to your next doctor s visit. Bring all medications you take, including over the counter medications, herbals and other supplements with you to your doctor s visit. Patients and families are reminded to discard old lists and to update any records with all medication providers or retail pharmacies. Education Materials Abdominal Pain Abdominal pain is pain in the stomach or belly area. Everyone has this pain from time to time. In many cases it goes away on its own. But abdominal pain can sometimes be due to a serious problem, such as appendicitis. So it s important to know when to get help. Causes of abdominal pain There are many possible causes of abdominal pain. Common causes in adults include: Constipation, diarrhea, or gas Stomach acid flowing back up into the esophagus (acid reflux or heartburn) Severe acid reflux, called GERD (gastroesophageal reflux disease) A sore in the lining of the stomach or small intestine (peptic ulcer) Inflammation of the gallbladder, liver, or pancreas Gallstones or kidney stones Appendicitis Intestinal blockage An internal organ pushing through a muscle or other tissue (hernia) Urinary tract infections In women, menstrual cramps, fibroids, ovarian cysts, pelvic inflammatory disease, or endometriosis Inflammation or infection of the intestines, including Crohn's disease and ulcerative colitis Irritable bowel syndrome Diagnosing the cause of abdominal pain Your healthcare provider will give you a physical exam help find the cause of your pain. If needed,you will have tests. Belly pain has many possible causes. So it can be hard to find the reason for your pain. Giving details about your pain can help. Tell your provider where and when you feel the pain, and what makes it better or worse. Also let your provider know if you have other symptoms such as: Fever Tiredness Upset stomach (nausea) Vomiting Changes in bathroom habits Blood in the stool or black, tarry stool Weight loss that you can't explain (involuntary weight loss?) Also report any family history of stomach or intestinal problems, or cancers. Tell your provider about all your alcohol use and drug use. Tell your provider about all medicines you use, including herbs, vitamins, and supplements. Treating abdominal pain Some causes of pain need emergency medical treatment right away. These include appendicitis or a bowel blockage. Other problems can be treated with rest, fluids, or medicines. Your healthcare provider can give you specific instructions for treatment or self-care based on what is causing your pain. If you have vomiting or diarrhea, sip water or other clear fluids. When you are ready to eat solid foods again, start with small amounts of iaqc-ni-ygzzba, low- fat foods. These include apple sauce, toast, or crackers. When to get medical care Call 911 or go to the hospital right away if you: Can t pass stool and are vomiting Are vomiting blood or have bloody diarrhea or black, tarry diarrhea Have chest, neck, or shoulder pain Feel like you might pass out Have pain in your shoulder blades with nausea Have sudden, severe belly pain Have new, severe pain unlike any you have felt before Have a belly that is rigid, hard, and hurts to touch Call your healthcare provider if you have: Pain for more than 5 days Bloating for more than 2 days Diarrhea for more than 5 days A fever of 100.4 F (38 C) or higher, or as directed by your healthcare provider Pain that gets worse Weight loss for no reason Continued lack of appetite Blood in your stool How to prevent abdominal pain Here are some tips to help prevent abdominal pain: Eat smaller amounts of food at each meal. Don't eat greasy, fried, or other high-fat foods. Don't eat foods that give you gas. Exercise regularly. Drink plenty of fluids. To help prevent GERD symptoms: Quit smoking. Reduce alcohol and foods that increase stomach acid. Don't use aspirin or zaat-knf-qjqzuni pain and fever medicines, if possible. This includes nonsteroidal anti-inflammatory drugs (NSAIDs). Lose excess weight. Finish eating at least 2 hours before you go to bed or lie down. Raise the head of your bed. 9764-4819 [employer]. [address] [place] [address], [place] [address]. All rights reserved. This information is not intended as a substitute for professional medical care. Always follow yourhealthcare professional's instructions. Additional Information VACCINATE! IT SAVES LIVES! Members of the community who have not yet received the COVID-19 vaccine and would like to receive it can visit one of [facility] vaccine clinics. There are many vaccine clinic locations within the [facility]. For locations and available times, please visit www.[email or web address].[email or web address]/. It is important to note that some COVID mobile vaccine clinics are held outdoors and may be canceled in rainy or stormy conditions. To learn more about pediatric vaccinations (ages 5-11), we invite you to visit the [facility] webpage. [email or web address]/[email or web address] [email or web address].htmlTo learn more about the COVID-19 vaccine, we invite you to visit the CDC website for a list of frequently asked questions. https://www.cdc.gov/coronavirus/2019-ncov/vaccines/faq.html [facility] Patient Portal Access Instructions: Stay connected with your healthcare team and access your personal medical information anytime with the [facility] Patient Portal. If you would like a full copy of your medical records please contact the [facility] Medical Records Department Friday through Friday between 8a.m. and 4:30p.m. Please follow the directions below to access the portal: 1.Access the email account you provided upon registration to the hospital.2.Look for an invitation email from [facility].3.Open the email and access the invitation link: Accept Invitation to [facility]4.Fill in the required lux to create your account. Sign into [email or web address] with your username and password that you created in the above steps to stay up to date. You can then view a summary of results, a summary of your visits, and the ability to download your summaries to your computer or send the information securely to a physician. Remember that your healthcare information is confidential, so carefully consider who you will allow to register on the [facility] Patient Portal for access to your information. You can also access the [facility] Patient Portal on the [employer] angélica. Simply click on Health Records under [email or web address] and then click on the [employer] logo. HOW TO SAFELY DISPOSE OF PRESCRIPTION MEDICATIONS Please use one of the following methods to safely dispose of your unused medications. 1.Use a drug disposal kit: the drug disposal pouch allows you to safely discard your old and unuseddrugs. Ask your nurse to give you one when you are discharged.2.Visit a local take-back location: Many local pharmacies and police departments have programs that collect old and unwanted prescriptiondrugs. Call your local pharmacy or go to http://[employer].Zillow/9N4Vl9x to find one close to you.3.Make use of household items: Use cat litter or old coffee grounds to dispose medications if other options arenot available. Mix your drugs with these household products, seal them in an airtight container andthrow it into the garbage. Call [facility]: [phone] to be sure your drugs can be disposed of in this way. Some medicines may require a different approach.4.Never flush your medications down the toilet. IF YOU HAVE BEEN PRESCRIBED AN OPIOIDS FOR PAIN If you have been prescribed an opioid (such as hydrocodone, oxycodone or morphine), it is critical to understand the possible side effects and risks of opioid pain medications. Even when taken as directed, opioids can have several side effects including: Tolerance, meaning you might need to take more of a medication for the same pain relief. Nausea, vomiting and/or constipation. Sleepiness, dizziness, dry mouth, confusion, depression or itching. Physical dependence, meaning you have withdrawal symptoms when a medication is stopped ? this can develop within a few days. KNOW YOUR RESPONSIBILITIES It is important to know exactly how much and how often to take the opioid pain medications you are prescribed. Never take opioids in higher amounts or more often than prescribed. Do not combine opioids with alcohol or other drugs that cause drowsiness, such as benzodiazepines, also known as benzos,including diazepam and alprazolam, muscle relaxants or sleep aids. Never sell or share prescriptionopioids. This is illegal. Store opioids in a secure place and out of reach of others (including children, family, friends and visitors). The last page(s) of this document has been signed and retained as a CHART COPY Signatures Patient Education Materials Abdominal Pain Medication Leaflets My discharge plan and instructions have been reviewed and explained to me and IMEIR HEATHER Eunderstand my current condition and have read and understand these discharge instructions. I have received a written copy of the plan/instructions. If I have questions, I am aware that I should contact my doctor. 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 Author Type: Nurse Practitioner Type: Progress Notes Filed: 11/05/2023 16:48 Note Text: Patient came in with complaints of right sided upper abdominal pain and back pain. Patient says it is waxing and waning between a 6 and a 15 out of 10. Patient says she noticed it this morning and seems to be getting worse. Patient did go to the ER initially but they told her to go to urgent care. At this time is best believe that patient should be seen in an ER. Patient was okay with this care plan and will go to a different ER.[facility] 11-05-2023 History of Present illness Narrative* Sulaiman Brooke APRN.DELMA - 11/05/2023 4:45 PM EDT Patient came in with complaints of right sided upper abdominal pain and back pain. Patient says it is waxing and waning between a 6 and a 15 out of 10. Patient says she noticed it this morning and seems to be getting worse. Patient did go to the ER initially but they told her to go to urgent care. At this time is best believe that patient should be seen in an ER. Patient was okay with this care plan and will go to a different ER. [facility] Instructions* Patient Instructions* Mena Vernon MD - 10/03/2023 5:58 PM EDT Iron --if take supplement, then Mon, Wed, Fri. Iron glycinate, gluconate, fumarate or succinate better tolerated to sulfate. Okay lower doses of iron around 20 range. Okay to take [id number] documented in [facility] NoteHNO ID: [id number] Author: MENA VERNON MD Service: ? Author Type: Physician Type: Progress Notes Filed: 11/13/2023 22:31 Note Text: This note was created using [employer]. Subjective Liudmila Worley is a 38 year old female. Patient presents with: F/U 3 Month SUBJECTIVE: Liudmila Worley is a 38 year old year old lady here today for 3 month follow up appointment for review of medical conditions. Hard time losing weight. Work hours 10:30 to 7 to 8 PM. Stays up late so gets 5 to 6 hours of sleep. Too much sleep causes back hurting. Has a treadmill. Hard to make time. Adderall works sometimes and other times not. Periods have been heavy first and second days. Iron deficiency noted. PAST MEDICAL HISTORY Diagnosis Date Abnormal Pap smear of cervix 2016 ASCUS pap , negative HPV Adult attention deficit disorder Obesity, unspecified Current Outpatient Medications Medication Sig ADDERALL 30 mg tablet Take 1 tablet by mouth two times a day for 30 days. lisinopril (ZESTRIL) 5 mg tablet Take 1 tablet by mouth once daily. Amphetamine-Dextroamphetamine (ADDERALL) 30 mg tablet Take 1 tablet by mouth two times a day for 30 days. ADDERALL 30 mg tablet Take 1 tablet by mouth two times a day for 30 days. benzonatate (TESSALON PERLES) 100 mg capsule Take 2 capsules by mouth three times a day as needed. (Patient not taking: Reported on 08/31/2023) Drospirenone-Ethinyl Estradiol (YANIRA, 28,) 3-0.02 mg per tablet Take 1 tablet by mouth once daily. (Patient not taking: Reported on 05/29/2023) No current facility-administered medications for this visit. Review of Systems Objective BP 138/78 Pulse 120 Temp 36.7 ?C (98.1 ?F) Resp 18 Wt 98.9 kg (218 lb) LMP 09/30/2023 SpO2 100% BMI 38.62 kg/m? Last 5 Encounter Wt Readings: Date: Wt: 10/03/2023 98.9 kg (218 lb) 08/31/2023 97 kg (213 lb 13.5 oz) 05/29/2023 99.5 kg (219 lb 5.7 oz) 04/22/2023 98 kg (216 lb) 10/22/2022 99.8 kg (220 lb) No waist measurement recorded Estimated body mass index is 38.62 kg/m? as calculated from the following: Height as of 10/22/22: 160 cm (5' 3). Weight as of this encounter: 98.9 kg (218 lb). Last 5 Encounter BP Readings: Date: BP: 10/03/2023 138/78 08/31/2023 155/97[no meds this am[ 05/29/2023 163/120 04/22/2023 138/88 10/22/2022 148/90 Physical Exam Constitutional: Appearance: Normal appearance. She is obese. HENT: Head: Normocephalic. Eyes: Conjunctiva/sclera: Conjunctivae normal. Cardiovascular: Rate and Rhythm: Normal rate and regular rhythm. Heart sounds: Normal heart sounds. Pulmonary: Effort: Pulmonary effort is normal. Breath sounds: Normal breath sounds. Musculoskeletal: Right lower leg: No edema. Left lower leg: No edema. Skin: General: Skin is warm and dry. Neurological: General: No focal deficit present. Mental Status: She is alert and oriented to person, place, and time. Psychiatric: Mood and Affect: Mood normal. Behavior: Behavior normal. Thought Content: Thought content normal. Judgment: Judgment normal. Latest Ref Rng 09/19/2021 10/22/2022 04/22/2023 Protein, Total 6.3 - 8.0 g/dL 7.2 Albumin 3.9 - 4.9 g/dL 4.6 Calcium 8.5 - 10.2 mg/dL 9.3 Bilirubin, Total 0.2 - 1.3 mg/dL 0.4 Alkaline Phosphatase 34 - 123 U/L 92 AST 13 - 35 U/L 19 ALT 7 - 38 U/L 14 Glucose 74 - 99 mg/dL 87 BUN 7 - 21 mg/dL 7 Creatinine 0.58 - 0.96 mg/dL 0.60 Sodium 136 - 144 mmol/L 138 Potassium 3.7 - 5.1 mmol/L 4.2 Chloride 97 - 105 mmol/L 102 CO2 22 - 30 mmol/L 26 Anion Gap 9 - 18 mmol/L 10 eGFR >=60 mL/min/1.73m? 120 WBC 3.70 - 11.00 k/uL 5.47 7.40 4.94 RBC 3.90 - 5.20 m/uL 4.84 4.77 5.08 Hemoglobin 11.5 - 15.5 g/dL 12.8 11.2 (L) 11.8 Hematocrit 36.0 - 46.0 % 38.5 36.0 38.7 MCV 80.0 - 100.0 fL 79.5 (L) 75.5 (L) 76.2 (L) MCH 26.0 - 34.0 pg 26.4 23.5 (L) 23.2 (L) MCHC 30.5 - 36.0 g/dL 33.2 31.1 30.5 RDW-CV 11.5 - 15.0 % 14.7 16.2 (H) 14.8 Platelet Count 150 - 400 k/uL 354 384 447 (H) MPV 9.0 - 12.7 fL 9.5 9.5 9.9 Absolute nRBC <0.01 k/uL <0.01 <0.01 <0.01 Cholesterol, Total <200 mg/dL 241 (H) Triglyceride <150 mg/dL 99 HDL Cholesterol >39 mg/dL 68 Non HDL Cholesterol <130 mg/dL 173 (H) Fasting Time hrs 12 VLDL Cholesterol <30 mg/dL 20 TC:HDL Ratio <5.10 3.54 LDL Cholesterol <100 mg/dL 153 (H) LDL:HDL Ratio <2.54 2.25 Iron 41 - 186 ug/dL 53 TIBC 232 - 386 ug/dL 498 (H) Transferrin Saturation 15.0 - 57.0 % 10.6 (L) TSH 0.270 - 4.200 mIU/L 1.890 1.730 Testosterone <40 ng/dL 28 DHEA-S 60.9 - 337.0 ug/dL 218.5 Hydroxyprogesterone <=206.00 ng/dL 28.26 Ferritin 14.7 - 205.1 ng/mL 11.4 (L) Legend: (L) Low (H) High Assessment and Plan Encounter Diagnosis ICD-10-CM 1. Attention deficit hyperactivity disorder (ADHD), unspecified ADHD type F90.9 ADDERALL 30 mg tablet ADDERALL 30 mg tablet ADDERALL 30 mg tablet Stable on med. Continue present management 2. Iron deficiency E61.1 Heavy m (more content not included)...[facility]07-26-2024 History of Present illness Narrative* Mena Vernon MD - 10/03/2023 5:25 PM EDT This note was created using [employer]. Subjective Liudmila Worley is a 38 year old female. Patient presents with: F/U 3 Month SUBJECTIVE: Liudmila Worley is a 38 year old year old lady here today for 3 month follow up appointment for review of medical conditions. Hard time losing weight. Work hours 10:30 to 7 to 8 PM. Stays up late so gets 5 to 6 hours of sleep. Too much sleep causes back hurting. Has a treadmill. Hard to make time. Adderall works sometimes and other times not. Periods have been heavy first and second days. Iron deficiency noted. PAST MEDICAL HISTORY Diagnosis Date Abnormal Pap smear of cervix 2016 ASCUS pap , negative HPV Adult attention deficit disorder Obesity, unspecified Current Outpatient Medications Medication Sig ADDERALL 30 mg tablet Take 1 tablet by mouth two times a day for 30 days. lisinopril (ZESTRIL) 5 mg tablet Take 1 tablet by mouth once daily. Amphetamine-Dextroamphetamine (ADDERALL) 30 mg tablet Take 1 tablet by mouth two times a day for 30days. ADDERALL 30 mg tablet Take 1 tablet by mouth two times a day for 30 days. benzonatate (TESSALON PERLES) 100 mg capsule Take 2 capsules by mouth three times a day as needed. (Patient not taking: Reported on 08/31/2023) Drospirenone-Ethinyl Estradiol (YANIRA, 28,) 3-0.02 mg per tablet Take 1 tablet by mouth once daily. (Patient not taking: Reported on 05/29/2023) No current facility-administered medications for this visit. Review of Systems Objective BP 138/78 Pulse 120 Temp 36.7 C (98.1 F) Resp 18 Wt 98.9 kg (218 lb) LMP 09/30/2023 SpO2 100% BMI 38.62 kg/m Last 5 Encounter Wt Readings: Date: Wt: 10/03/2023 98.9 kg (218 lb) 08/31/2023 97 kg (213 lb 13.5 oz) 05/29/2023 99.5 kg (219 lb 5.7 oz) 04/22/2023 98 kg (216 lb) 10/22/2022 99.8 kg (220 lb) No waist measurement recorded Estimated body mass index is 38.62 kg/m as calculated from the following: Height as of 10/22/22: 160 cm (5' 3). Weight as of this encounter: 98.9 kg (218 lb). Last 5 Encounter BP Readings: Date: BP: 10/03/2023 138/78 08/31/2023 155/97[no meds this am[ 05/29/2023 163/120 04/22/2023 138/88 10/22/2022 148/90 Physical Exam Constitutional: Appearance: Normal appearance. She is obese. HENT: Head: Normocephalic. Eyes: Conjunctiva/sclera: Conjunctivae normal. Cardiovascular: Rate and Rhythm: Normal rate and regular rhythm. Heart sounds: Normal heart sounds. Pulmonary: Effort: Pulmonary effort is normal. Breath sounds: Normal breath sounds. Musculoskeletal: Right lower leg: No edema. Left lower leg: No edema. Skin: General: Skin is warm and dry. Neurological: General: No focal deficit present. Mental Status: She is alert and oriented to person, place, and time. Psychiatric: Mood and Affect: Mood normal. Behavior: Behavior normal. Thought Content: Thought content normal. Judgment: Judgment normal. Latest Ref Rng 09/19/2021 10/22/2022 04/22/2023 Protein, Total 6.3 - 8.0 g/dL 7.2 Albumin 3.9 - 4.9 g/dL 4.6 Calcium 8.5 - 10.2 mg/dL 9.3 Bilirubin, Total 0.2 - 1.3 mg/dL 0.4 Alkaline Phosphatase 34 - 123 U/L 92 AST 13 - 35 U/L 19 ALT 7 - 38 U/L 14 Glucose 74 - 99 mg/dL 87 BUN 7 - 21 mg/dL 7 Creatinine 0.58 - 0.96 mg/dL 0.60 Sodium 136 - 144 mmol/L 138 Potassium 3.7 - 5.1 mmol/L 4.2 Chloride 97 - 105 mmol/L 102 CO2 22 - 30 mmol/L 26 Anion Gap 9 - 18 mmol/L 10 eGFR >=60 mL/min/1.73m 120 WBC 3.70 - 11.00 k/uL 5.47 7.40 4.94 RBC 3.90 - 5.20 m/uL 4.84 4.77 5.08 Hemoglobin 11.5 - 15.5 g/dL 12.8 11.2 (L) 11.8 Hematocrit 36.0 - 46.0 % 38.5 36.0 38.7 MCV 80.0 - 100.0 fL 79.5 (L) 75.5 (L) 76.2 (L) MCH 26.0 - 34.0 pg 26.4 23.5 (L) 23.2 (L) MCHC 30.5 - 36.0 g/dL 33.2 31.1 30.5 RDW-CV 11.5 - 15.0 % 14.7 16.2 (H) 14.8 Platelet Count 150 - 400 k/uL 354 384 447 (H) MPV 9.0 - 12.7 fL 9.5 9.5 9.9 Absolute nRBC <0.01 k/uL <0.01 <0.01 <0.01 Cholesterol, Total <200 mg/dL 241 (H) Triglyceride <150 mg/dL 99 HDL Cholesterol >39 mg/dL 68 Non HDL Cholesterol <130 mg/dL 173 (H) Fasting Time hrs 12 VLDL Cholesterol <30 mg/dL 20 TC:HDL Ratio <5.10 3.54 LDL Cholesterol <100 mg/dL 153 (H) LDL:HDL Ratio <2.54 2.25 Iron 41 - 186 ug/dL 53 TIBC 232 - 386 ug/dL 498 (H) Transferrin Saturation 15.0 - 57.0 % 10.6 (L) TSH 0.270 - 4.200 mIU/L 1.890 1.730 Testosterone <40 ng/dL 28 DHEA-S 60.9 - 337.0 ug/dL 218.5 Hydroxyprogesterone <=206.00 ng/dL 28.26 Ferritin 14.7 - 205.1 ng/mL 11.4 (L) Legend: (L) Low (H) High Assessment and Plan Encounter Diagnosis ICD-10-CM 1. Attention deficit hyperactivity disorder (ADHD), unspecified ADHD type F90.9 ADDERALL 30 mg tablet ADDERALL 30 mg tablet ADDERALL 30 mg tablet Stable on med. Continue present management 2. Iron deficiency E61.1 Heavy menses contributing. Iron supplement as discussed. 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 Primary hypertension I10 Stay on same med management. Control fair 4. Class 2 obesity due to excess calories with body mass index (BMI) of 38.0 to 38.9 in adult, unspecified whether serious comorbidity present E66.09 Z68.38 Reviewed difficulties with losing weight.Discsused options for diet and exercise lifestyle changes.Work on stress management Above issues addressed with patient. Patient involved in shared decision making for management of medical issues. History and medications reviewed. Epic updated as needed Refills and/or prescriptions taken care of and meds adjusted as indicated after reviewed history, exam and labs. Health Maintenance reviewed. Updated record and/or ordered tests as recorded. Encouraged on efforts at healthy diet and regular exercise and adequate sleep. Mena Vernon MD documented [facility] encounter[facility] Telephone encounter Note * Telephone Encounter - Deacon Burgos MA - 10/03/2023 2:48 PM EDT Prescription Refill Information The patient has been identified by name and date of : Yes Caregiver verified no other encounters exist for this prescription request: Yes Caregiver confirmed with patient/requestor that no other refills are due, in the near future, with this provider at this time: Yes The last office visit in the department: 04/12/2023 Does the patient have a future office visit with this provider/department: Yes Requested Prescriptions Pending Prescriptions Disp Refills ADDERALL 30 mg tablet 60 tablet 0 Sig: Take 1 tablet by mouth two times a day for 30 days. Deacon Burgos MA October 03, 2023 2:48 PM [facility]07-26-2024 Miscellaneous Notes* Telephone Encounter - Deacon Burgos MA - 10/03/2023 2:48 PM EDT Prescription Refill Information The patient has been identified by name and date of : Yes Caregiver verified no other encounters exist for this prescription request: Yes Caregiver confirmed with patient/requestor that no other refills are due, in the near future, with this provider at this time: Yes The last office visit in the department: 04/12/2023 Does the patient have a future office visit with this provider/department: Yes Requested Prescriptions Pending Prescriptions Disp Refills ADDERALL 30 mg tablet 60 tablet 0 Sig: Take 1 tablet by mouth two times a day for 30 days. Deacon Burgos MA October 03, 2023 2:48 PM documented in this encounterAv[facility]06[facility] Telephone encounter Note * Telephone Encounter - Delisa Rea OCCA - 09/03/2023 1:11 PM EDT Prescription Refill Information The patient has been identified by name and date of : Yes Caregiver verified no other encounters exist for this prescription request: Yes Caregiver confirmed with patient/requestor that no other refills are due, in the near future, with this provider at this time: Yes The last office visit in the department: 04/22/2023 Does the patient have a future office visit with this provider/department: Yes, 10/03/2023 Requested Prescriptions Pending Prescriptions Disp Refills ADDERALL 30 mg tablet 60 tablet 0 Sig: Take 1 tablet by mouth two times a day for 30 days. DERECK Alejandre September 03, 2023 1:11 PM [facility] Miscellaneous Notes* Telephone Encounter - Delisa Rea OCCA - 09/03/2023 1:11 PM EDT Prescription Refill Information The patient has been identified by name and date of : Yes Caregiver verified no other encounters exist for this prescription request: Yes Caregiver confirmed with patient/requestor that no other refills are due, in the near future, with this provider at this time: Yes The last office visit in the department: 04/22/2023 Does the patient have a future office visit with this provider/department: Yes, 10/03/2023 Requested Prescriptions Pending Prescriptions Disp Refills ADDERALL 30 mg tablet 60 tablet 0 Sig: Take 1 tablet by mouth two times a day for 30 days. DERECK Alejandre September 03, 2023 1:11 PM documented in this encounterAvita [facility]06-[facility]24 NoteHNO ID: [id number] Author: ADE GASTELUM APRN.BONING ROOM WORKER Service: ? Author Type: Nurse Practitioner Type: Progress Notes Filed: 08/31/2023 09:24 Note Text: This note was created using [employer]. Dorene Worley is a 38 year old female. HPI Pt developed a sore throat yesterday and today noted runny nose and body aches. Other family members have similar symptoms. Review of Systems Constitutional: Positive for fatigue. Negative for fever. HENT: Positive for sore throat. Musculoskeletal: Positive for arthralgias. Objective BP 155/97 Pulse 87 Temp 36.3 ?C (97.3 ?F) Resp 18 Wt 97 kg (213 lb 13.5 oz) LMP 08/29/2023 (Exact Date) SpO2 100% BMI 37.88 kg/m? Physical Exam Vitals and nursing note reviewed. Constitutional: General: She is not in acute distress. Appearance: Normal appearance. She is not ill-appearing. HENT: Head: Normocephalic. Right Ear: Tympanic membrane normal. Left Ear: Tympanic membrane normal. Mouth/Throat: Mouth: Mucous membranes are moist. Eyes: Conjunctiva/sclera: Conjunctivae normal. Cardiovascular: Rate and Rhythm: Normal rate and regular rhythm. Pulmonary: Effort: Pulmonary effort is normal. Breath sounds: Normal breath sounds. Musculoskeletal: General: Normal range of motion. Cervical back: Normal range of motion. Skin: General: Skin is warm and dry. Neurological: General: No focal deficit present. Mental Status: She is alert. Psychiatric: Mood and Affect: Mood normal. Behavior: Behavior normal. Assessment and Plan ASSESSMENT/PLAN: 1. Sore throat - ICD9: 462, ICD10: J02.9 - suspect viral - Rapid Strep negative in the office today - Discussed supportive care treatment with fluids, rest and analgesia. - The patient may also use warm salt water gargles, throat lozenges and/or OTC throat spray as needed. - Contagious dz precautions discussed- including considered contagious until on antibiotics for 24 hours - The patient should follow up in one week if symptoms persist or worsen - STREP A MOLECULAR (POC) Ade Gastelum APRN.[facility]06-[facility] History of Present illness Narrative* Ade Gastelum APRN.DELMA - 08/31/2023 9:13 AM EDT This note was created using [employer]. Subjective Liudmila Worley is a 38 year old female. HPI Pt developed a sore throat yesterday and today noted runny nose and body aches. Other family members have similar symptoms. Review of Systems Constitutional: Positive for fatigue. Negative for fever. HENT: Positive for sore throat. Musculoskeletal: Positive for arthralgias. Objective BP 155/97 Pulse 87 Temp 36.3 C (97.3 F) Resp 18 Wt 97 kg (213 lb 13.5 oz) LMP 08/29/2023 (Exact Date) SpO2 100% BMI 37.88 kg/m Physical Exam Vitals and nursing note reviewed. Constitutional: General: She is not in acute distress. Appearance: Normal appearance. She is not ill-appearing. HENT: Head: Normocephalic. Right Ear: Tympanic membrane normal. Left Ear: Tympanic membrane normal. Mouth/Throat: Mouth: Mucous membranes are moist. Eyes: Conjunctiva/sclera: Conjunctivae normal. Cardiovascular: Rate and Rhythm: Normal rate and regular rhythm. Pulmonary: Effort: Pulmonary effort is normal. Breath sounds: Normal breath sounds. Musculoskeletal: General: Normal range of motion. Cervical back: Normal range of motion. Skin: General: Skin is warm and dry. Neurological: General: No focal deficit present. Mental Status: She is alert. Psychiatric: Mood and Affect: Mood normal. Behavior: Behavior normal. Assessment and Plan ASSESSMENT/PLAN: 1. Sore throat - ICD9: 462, ICD10: J02.9 - suspect viral - Rapid Strep negative in the office today - Discussed supportive care treatment with fluids, rest and analgesia. - The patient may also use warm salt water gargles, throat lozenges and/or OTC throat spray as needed. - Contagious dz precautions discussed- including considered contagious until on antibiotics for 24 hours - The patient should follow up in one week if symptoms persist or worsen - STREP A MOLECULAR (POC) Ade Gastelum APRN.CNP documented in this encounterAv[facility]05-29-[facility] Telephone encounter Note * Telephone Encounter - Karol Vergara APRN.CNP - 08/06/2023 12:41 PM EDT Addressed in another encounter [facility] Work Phone: 1(209) 837-445105-29-2024 Telephone encounter Note* Telephone Encounter - Karol Vergara APRN.CNP - 08/06/2023 12:41 PM EDT PDMP website checked and validated. All prescriptions have been APPROPRIATELY filled. No suspiciousactivity was identified. 08/06/2023 by Karol Vergara APRN.CNP [facility]05-29-2024 Miscellaneous Notes* Telephone Encounter - Karol Vergara APRN.CNP - 08/06/2023 12:41 PM EDT PDMP website checked and validated. All prescriptions have been APPROPRIATELY filled. No suspiciousactivity was identified. 08/06/2023 by Karol Vergara APRN.CNP * Telephone Encounter - Tereza Tobar RN - 08/06/2023 9:22 AM EDT Patient has been out of medication for 2 days. * Telephone Encounter - Carmen Rooney MA - 08/05/2023 4:24 PM EDT Patient has been identified by name and date of : Yes Patient phones for refill(s): Requested Prescriptions Pending Prescriptions Disp Refills ADDERALL 30 mg tablet 60 tablet 0 Sig: Take 1 tablet by mouth two times a day for 30 days. Date of last office visit in primary care: 04/22/2023 Date of next office visit in primary care: 10/03/2023 Please advise. Thank you. Carmen Rooney MA. documented in this encounterAv[facility]05-29-2024 Miscellaneous Notes* Telephone Encounter - Karol Vergara APRN.CNP - 08/06/2023 12:41 PM EDT Addressed in another encounter * Telephone Encounter - Carmen Rooney MA - 08/05/2023 8:44 AM EDT Patient has been identified by name and date of : Yes Patient phones for refill(s): Requested Prescriptions Pending Prescriptions Disp Refills ADDERALL 30 mg tablet 60 tablet 0 Sig: Take 1 tablet by mouth two times a day for 30 days. Date of last office visit in primary care: 04/22/2023 Date of next office visit in primary care: 10/03/2023 Please advise. Thank you. Carmen Rooney MA. documented in this encounterAv[facility]05-[facility] Telephone encounter Note * Telephone Encounter - Tereza Tobar RN - 08/06/2023 9:22 AM EDT Patient has been out of medication for 2 days. [facility]05-28-[facility] Telephone encounter Note* Telephone Encounter - Carmen Rooney MA - 08/05/2023 4:24 PM EDT Patient has been identified by name and date of : Yes Patient phones for refill(s): Requested Prescriptions Pending Prescriptions Disp Refills ADDERALL 30 mg tablet 60 tablet 0 Sig: Take 1 tablet by mouth two times a day for 30 days. Date of last office visit in primary care: 04/22/2023 Date of next office visit in primary care: 10/03/2023 Please advise. Thank you. Carmen Rooney MA. [facility]05-28-2024 Telephone encounter Note* Telephone Encounter - Carmen Rooney MA - 08/05/2023 8:44 AM EDT Patient has been identified by name and date of : Yes Patient phones for refill(s): Requested Prescriptions Pending Prescriptions Disp Refills ADDERALL 30 mg tablet 60 tablet 0 Sig: Take 1 tablet by mouth two times a day for 30 days. Date of last office visit in primary care: 04/22/2023 Date of next office visit in primary care: 10/03/2023 Please advise. Thank you. Carmen Rooney MA. [facility]04-26-2024 Telephone encounter Note* Telephone Encounter - Deepti Redd APRN.CNS - 07/04/2023 9:06 AM EDT ok [facility]04-26-2024 Miscellaneous Notes* Telephone Encounter - Deepti Redd APRN.CNS - 07/04/2023 9:06 AM EDT ok * Telephone Encounter - Tereza Tobar RN - 07/04/2023 8:54 AM EDT Patient reports the adderall rx sent to [facility] yesterday was not generic, it was name brand. Reports the name brand is $850 The generic is $50 Reports she learned [facility] did not renew their contract with her insurance so adderall is no longer covered at [facility], but they are the only ones that have it. [facility] does not have it. Patient is willingto pay the $50 this month. Patient took her last pill yesterday. Pended for generic adderall. documented in this encounterAv[facility]04-[facility] Telephone encounter Note * Telephone Encounter - Tereza Tobar RN - 07/04/2023 8:54 AM EDT Patient reports the adderall rx sent to [facility] yesterday was not generic, it was name brand. Reports the name brand is $850 The generic is $50 Reports she learned [facility] did not renew their contract with her insurance so adderall is no longer covered at [facility], but they are the only ones that have it. [facility] does not have it. Patient is willingto pay the $50 this month. Patient took her last pill yesterday. Pended for generic adderall. [facility]04-[facility] Telephone encounter Note* Telephone Encounter - Deepti Redd APRN.CNS - 07/03/2023 4:17 PM EDT ok [facility]04-[facility] Miscellaneous Notes* Telephone Encounter - Deepti Redd APRN.CNS - 07/03/2023 4:17 PM EDT ok * Telephone Encounter - Leanne Woods RN - 07/03/2023 2:27 PM EDT Patient calling to say [facility] pharmacy does not have brand name Adderall in stock. She is requesting script for generic Adderall be sent to [facility] retail pharmacy and she will pay out of pocket. Leanne Woods RN documented in this encounterAvita [facility]04-25-2024 Telephone encounter Note * Telephone Encounter - Leanne Woods RN - 07/03/2023 2:27 PM EDT Patient calling to say [facility] pharmacy does not have brand name Adderall in stock. She is requesting script for generic Adderall be sent to [facility] retail pharmacy and she will pay out of pocket. Leanne Woods RN [facility]04-25-[facility] Telephone encounter Note* Telephone Encounter - Deepti Redd APRN.CNS - 07/03/2023 10:58 AM EDT ok [facility]04-[facility] Miscellaneous Notes* Telephone Encounter - Deepti Redd APRN.CNS - 07/03/2023 10:58 AM EDT ok * Telephone Encounter - Kelly Bush LPN - 07/03/2023 9:32 AM EDT Pt called back and she [facility] the Brand name is what she wants not generic. Reason for switching pharmacy [facility] did not renew contract with the insurance pt has. No call back, only if a problem KAPIL: 04/22/23 NOV: 10/03/23 Kelly Bush LPN * Telephone Encounter - Veronica Thacker RN - 07/03/2023 8:48 AM EDT Pt calling and states she has to pay out of pocket this month for her Adderall so she needs the generic sent in to [facility] pharmacy. Call pt only if problem. Last OV 04/22/23 Next OV 10/03/23 documented in this encounterAvita [facility]04-[facility]-2024 Telephone encounter Note * Telephone Encounter - Kelly Bush LPN - 07/03/2023 9:32 AM EDT Pt called back and she wants request for Adderall to be sent to [facility] and the Brand name is what she wants not generic. Reason for switching pharmacy [facility] did not renew contract with the insurance pt has. No call back, only if a problem KAPIL: 04/22/23 NOV: 10/03/23 Kelly Bush LPN [facility]04-[facility] Telephone encounter Note* Telephone Encounter - Veroinca Thacker RN - 07/03/2023 8:48 AM EDT Pt calling and states she has to pay out of pocket this month for her Adderall so she needs the generic sent in to [facility] pharmacy. Call pt only if problem. Last OV 04/22/23 Next OV 10/03/23 [facility]04-[facility]24 Miscellaneous Notes* Telephone Encounter - Lissa Neumann RN - 06/20/2023 4:49 PM EDT Patient notified and voiced understanding. Lissa Neumann RN * Telephone Encounter - Brittni Ware APRN.CNM - 06/20/2023 4:44 PM EDT Rx sent. Brittni Ware APRN.CNM * Telephone Encounter - Lissa Neumann RN - 06/20/2023 3:41 PM EDT Can you address in Dr. Syed's absence? Lissa Neumann RN * Telephone Encounter - Lissa Neumann RN - 06/20/2023 12:51 PM EDT Patient calling requesting a Diflucan. Patient states she has had vaginal itching/burning and discharge without odor for 3 days. Patient refusing to use Monistat. Pharmacy is up to date. Please address if medication can be sent. Lissa Neumann RN documented in this encounterAvita [facility]03-21-[facility] History of Present illness Narrative* Shima Barney PA-C - 05/29/2023 4:52 PM EDT This note was created using [employer]. Subjective Liudmila Worley is a 37 year old female. Cough (Congestion, sore throat, & drainage with RIGHT ear pressure ) HPI Presents with cough and shortness of breath over the past 4 days. Cough has been productive. No hemoptysis. She has had some nasal congestion and ear pain. She is also had a sore throat. No fever. Denies sick contacts. She did try some [id number] cough and cold medicines which did help some at night. Cough does wake her up at night. No vomiting or diarrhea. No abdominal pain. No hx of asthma, not a smoker. Review of Systems Constitutional: Negative for fever. HENT: Positive for congestion, ear pain and sore throat. Negative for sinus pain. Respiratory: Positive for cough and shortness of breath. Negative for chest tightness and wheezing. All other systems reviewed and are negative. PAST MEDICAL HISTORY Diagnosis Date Abnormal Pap smear of cervix 2016 ASCUS pap , negative HPV Adult attention deficit disorder Obesity, unspecified Current Outpatient Medications Medication Sig Dispense Refill ADDERALL 30 mg tablet Take 1 tablet by mouth two times a day for 30 days. Do not start before 2023. 60 tablet 0 [START ON 06/26/2023] ADDERALL 30 mg tablet Take 1 tablet by mouth two times a day for 30 days. Do not start before June 26, 2023. 60 tablet 0 lisinopril (ZESTRIL) 5 mg tablet Take 1 tablet by mouth once daily. 90 tablet 3 ADDERALL 30 mg tablet Take 1 tablet by mouth two times a day for 30 days. Do not start before April 27, 2023. 60 tablet 0 Drospirenone-Ethinyl Estradiol (YANIRA, 28,) 3-0.02 mg per tablet Take 1 tablet by mouth once daily. (Patient not taking: Reported on 05/29/2023) 28 tablet 11 No current facility-administered medications for this visit. PAST SURGICAL HISTORY Procedure Laterality Date ADENOIDECTOMY PRIMARY <AGE 14 Adenoidectomy PAST SURGICAL HISTORY OF normal vaginal delivery PAST SURGICAL HISTORY OF 10/08/2013 wisdom teeth SALPINGECTOMY Bilateral 11/09/2021 Laparoscopic B/L Salpingectomy at [facility]-Dr. Syed TONSILLECTOMY PRIMARY/SECONDARY <AGE 12 FAMILY HISTORY Problem Relation Age of Onset Arthritis Mother Lipids Mother No Known Problems Father Headache Sister No Known Problems Brother No Known Problems Brother Diabetes Maternal Grandmother Arthritis Maternal Grandmother Heart Maternal Grandmother Hypertension Maternal Grandmother Psychiatry Maternal Grandmother Alcohol/Drug Maternal Grandfather Arthritis Maternal Grandfather Heart Maternal Grandfather Hypertension Maternal Grandfather Diabetes Paternal Grandmother Arthritis Paternal Grandmother No Known Problems Son No Known Problems Other No Known Problems Daughter Social History Tobacco Use Smoking status: Former Types: Cigarettes Quit date: 06/03/2008 Years since quittin.9 Smokeless tobacco: Never Tobacco comments: 2 Cigarettes per week Vaping Use Vaping Use: Never used Substance Use Topics Alcohol use: No Drug use: No Objective BP 163/120 Pulse 116 Temp 36.1 C (97 F) (Left Tympanic) Resp 16 Wt 99.5 kg (219 lb 5.7 oz) LMP 10/08/2022 (Within Days) SpO2 98% BMI 38.86 kg/m Physical Exam Vitals reviewed. Constitutional: Appearance: Normal appearance. HENT: Head: Normocephalic and atraumatic. Right Ear: Tympanic membrane, ear canal and external ear normal. Left Ear: Tympanic membrane, ear canal and external ear normal. Nose: Congestion present. Mouth/Throat: Mouth: Mucous membranes are moist. Cardiovascular: Rate and Rhythm: Regular rhythm. Tachycardia present. Heart sounds: Normal heart sounds. Pulmonary: Effort: Pulmonary effort is normal. Breath sounds: Normal breath sounds. Musculoskeletal: Cervical back: Neck supple. Lymphadenopathy: Cervical: No cervical adenopathy. Skin: General: Skin is warm and dry. Findings: No rash. Neurological: Mental Status: She is alert. Assessment and Plan ASSESSMENT/PLAN: 1. Viral URI - ICD9: 465.9, ICD10: J06.9 - Discussed viral etiology and rationale for treatment. - Symptomatic treatment with prn analgesia - Supportive care with fluids and rest -Chest x-ray is clear. Rx for tesssalon. I feel she does have a viral URI. She declined viral testing. Blood pressure noted to be elevated, she does not take her lisinopril today. No symptoms of hypertension. Recommended seeing her blood pressure medication as prescribed. - XR CHEST 2V FRONTAL/LAT Shima Barney PA-C documented in this encounterAvita [facility]03-21-2024 History of Present illness Narrative* Cheryl Polanco RT(R) - 05/29/2023 4:50 PM EDT Radiology Service Progress Note PATIENT NAME: Liudmila Worley DATE OF SERVICE: May 29, 2023 TIME: 4:47 PM PATIENT IDENTITY VERIFICATION COMPLETED USING TWO (2) IDENTIFIERS: Name and Date of confirmedby patient verbally. FALL SCREENING: Has the patient had 2 falls in the last year or 1 fall with injury or currently using an Ambulatory Assistive Device (Walker, Cane, Wheelchair, Crutches, etc.)? No PATIENT GENDER DATA: Female. status: : No status: NO. PATIENT RELEVANT IMPLANT DATA REVIEWED: Yes PATIENT PRESENTS WITH AN IMPLANTABLE OR ATTACHED COKE DRAWER: No RADIOLOGY DEPARTMENT: General X-ray: Exam(s) Completed: Chest X-Ray PERIPHERAL IV DATA: Not applicable SIGNED BY: RT Perry(R) May 29, 2023 4:47 PM documented in this encounterAvita Health System [facility]02-20-2024 Miscellaneous Notes* Telephone Encounter - Leyla Hussein LPN - 04/29/2023 12:44 PM EST PA number is [id number] * Telephone Encounter - Leyla Hussein LPN - 04/29/2023 12:42 PM EST Pt notified. * Telephone Encounter - Leyla Hussein LPN - 04/29/2023 12:19 PM EST Rec'd approval from [facility]. This was approved from 04/29/23 to 04/26/24. Pharmacy notified. They say it's still not called [facility]. They have this corrected and they will notify the pharmacy. This call reference number is [id number]. * Telephone Encounter - Leyla Hussein LPN - 04/29/2023 9:31 AM EST Was re entered with one twice daily and sent to plan for review. * Telephone Encounter - Gabriela Menendez LPN - 04/29/2023 9:23 AM EST Pt called in & stated she was told by her insurance company that the PA was sent in for her to take one adderall tab daily so it was determined a PA was not needed. However pt takes 2 tabs daily so it will need to be resubmitted for 2 tabs. Please notify pt when PA has been completed. Gabriela Menendez LPN * Telephone Encounter - Leyla Hussein LPN - 04/28/2023 3:33 PM EST PA completed via [facility] liudmila worley (Cisse: [id number]) Adderall 30MG tablets Status: Sent To Plan Created: April 28, 2023 Sent: April 28, 2023 Open José Manuel As Not Sent Archive * Telephone Encounter - Leyla Hussein LPN - 04/28/2023 1:58 PM EST PA response is Prior Authorization History ADDERALL 30 mg tablet History View all authorizations for this medication Closed 04/28/2023 1:55 PM Close reason: Prior Authorization not required for patient/medication Note from payer: Prior Authorization not required for patient/medication * Telephone Encounter - Leyla Hussein LPN - 04/28/2023 1:55 PM EST Electronic PA requested. * Telephone Encounter - Adriane Reinoso LPN - 04/28/2023 12:32 PM EST Pt. calling and states her Adderall 30 mg needs Prior Auth. Please advise. documented in this encounterAvita Health System [facility]02-13-2024 History of Present illness Narrative* Mena Vernon MD - 04/22/2023 8:30 AM EST This note was created using [employer]. Subjective Liudmila Worley is a 37 year old female. Patient presents with: Follow Up SUBJECTIVE: Liudmila Worley is a 37 year old year old lady here today for follow up appointment for review of medical conditions. Reviewed Dr. Mckay's progress note. Cotton wool spot and also had blepharoconjuncitivitis right eye. He recommended check sugar and lipids. PAST MEDICAL HISTORY Diagnosis Date Abnormal Pap smear of cervix 2016 ASCUS pap , negative HPV Adult attention deficit disorder Obesity, unspecified Current Outpatient Medications Medication Sig ADDERALL 30 mg tablet Take 1 tablet by mouth two times a day for 30 days. metFORMIN ER (GLUCOPHAGE XR) 500 mg 24 hr tablet Take 1 tablet by mouth two times a day with meals. Drospirenone-Ethinyl Estradiol (YANIRA, 28,) 3-0.02 mg per tablet Take 1 tablet by mouth once daily. No current facility-administered medications for this visit. OBJECTIVE: Review of Systems Objective BP 136/88 Pulse 88 Wt 98 kg (216 lb) LMP 10/08/2022 (Within Days) BMI 38.26 kg/m Last 5 Encounter Wt Readings: Date: Wt: 04/22/2023 98 kg (216 lb) 10/22/2022 99.8 kg (220 lb) 04/10/2022 94.3 kg (208 lb) 04/02/2022 97.1 kg (214 lb) 01/28/2022 96.2 kg (212 lb) No waist measurement recorded Estimated body mass index is 38.26 kg/m as calculated from the following: Height as of 10/22/22: 160 cm (5' 3). Weight as of this encounter: 98 kg (216 lb). Last 5 Encounter BP Readings: Date: BP: 04/22/2023 136/88 10/22/2022 148/90 04/10/2022 130/74 04/02/2022 138/86 01/28/2022 154/90 Physical Exam Constitutional: Appearance: Normal appearance. HENT: Head: Normocephalic. Eyes: Conjunctiva/sclera: Conjunctivae normal. Cardiovascular: Rate and Rhythm: Normal rate and regular rhythm. Heart sounds: Normal heart sounds. Pulmonary: Effort: Pulmonary effort is normal. Breath sounds: Normal breath sounds. Musculoskeletal: Right lower leg: No edema. Left lower leg: No edema. Skin: General: Skin is warm and dry. Neurological: General: No focal deficit present. Mental Status: She is alert and oriented to person, place, and time. Psychiatric: Attention and Perception: Attention and perception normal. Mood and Affect: Mood and affect normal. Speech: Speech normal. Behavior: Behavior normal. Thought Content: Thought content normal. Judgment: Judgment normal. Assessment and Plan Encounter Diagnosis ICD-10-CM 1. Attention deficit hyperactivity disorder (ADHD), unspecified ADHD type F90.9 ADDERALL 30 mg tablet ADDERALL 30 mg tablet ADDERALL 30 mg tablet 2. Primary hypertension I10 BP staying over 130/80. Mother has HTN. Will treat with lisinopril. Adjust as needed 3. Hypochromic microcytic anemia D50.9 CBC IRON + TIBC FERRITIN BLD 4. Class 2 obesity due to excess calories with body mass index (BMI) of 38.0 to 38.9 in adult, unspecified whether serious comorbidity present E66.09 Z68.38 5. Lipid screening Z13.220 LIPID PANEL BASIC 6. Encounter for long-term current use of medication Z79.899 LIPID PANEL BASIC COMP METABOLIC PANEL CBC IRON + TIBC FERRITIN BLD Above issues addressed with patient. Patient involved in shared decision making for management of medical issues. History and medications reviewed. Epic updated as needed Refills and/or prescriptions taken care of and meds adjusted as indicated after reviewed history, exam and labs. Health Maintenance reviewed. Updated record and/or ordered tests as recorded. Encouraged on efforts at healthy diet and regular exercise and adequate sleep. Stable with control of ADHD. Benefits from use and able to continue working from home. No signs of diversion or abuse of medication(s); no adverse effects. Continue present management. I spent a total of at least 39 minutes on the date of the service which included [id number] patient care, completing clinical documentation, obtaining and/or reviewing separately obtained history, performing a medically appropriate examination, counseling and educating the patient/family/caregiver, and ordering medications, tests, or procedures. Mena Vernon MD documented in this encounterAvita Health [facility]11-17-2023 Miscellaneous Notes* Telephone Encounter - Tereza Tobar RN - 01/24/2023 1:45 PM EST Notified patient. * Telephone Encounter - Mena Vernon MD - 01/24/2023 12:13 PM EST The following approved medication requests have been transmitted electronically. Requested Prescriptions Signed Prescriptions Disp Refills ADDERALL 30 mg tablet 60 tablet 0 Sig: Take 1 tablet by mouth two times a day for 30 days. Authorizing Provider: MENA VERNON MD * Telephone Encounter - Yakelin Weston LPN - 01/24/2023 11:46 AM EST Pt calling to check on status of request below. Pt states the Adderall XR did not help and she wants to go back on Adderall 30 mg twice daily. 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 States [facility] Pharm is only open a couple of hrs on Sat. Please call pt when rx has been sent. Yakelin Weston LPN * Telephone Encounter - Evita Madrigal RN - 01/23/2023 10:43 AM EST Patient calls to check on status of request of returning back to Adderall 30 mg twice daily and discontinuing the Adderall XR dose. Notified patient it was pending provider review. Changed request to TE. Pended request for review. Evita Madrigal RN documented in this encounterAvita Health [facility]11-16-2023 Miscellaneous Notes* Telephone Encounter - Evita Madrigal RN - 01/23/2023 10:37 AM EST Patient calls to check on status of request of returning back to Adderall 30 mg twice daily and discontinuing the Adderall XR dose. Notified patient it was pending provider review. Changed request to TE. Evita Madrigal RN documented in this encounterAvita Health [facility]11-03-2023 Miscellaneous Notes* Telephone Encounter - Adilene Jacobo MD - 01/10/2023 11:34 AM EDT Noted and signed. FLY Richardson * Telephone Encounter - Geena Martinez RN - 01/10/2023 10:00 AM EDT Contacted patient , symptoms are dull ache, encouraged to stay hydrated and make sure she is urinating. If symptoms continue to go to the ED. Patient also is fine with trying Metformin XR. Requested Prescriptions Pending Prescriptions Disp Refills metFORMIN ER (GLUCOPHAGE XR) 500 mg 24 hr tablet 60 tablet 3 Sig: Take 1 tablet by mouth two times a day with meals. * Telephone Encounter - Adilene Jacobo MD - 01/10/2023 9:55 AM EDT Sounds good.Patient should not take the Metformin (if IR form,we can offer XR form) if the patient cannot tolerate it at all.If the patient is feeling worse,she needs to go to ER. [facility] * Telephone Encounter - Samara Sow MA - 01/10/2023 9:46 AM EDT Pt reports better today. It had gotten worse overnight however. Asked pt if any urinary concerns - denies pressure/burning but does state urine is brown. States she hasn't been drinking as much. States today back is still sore, dull pain. States she has not taken Metformin today. * Telephone Encounter - Geena Martinez RN - 01/10/2023 9:26 AM EDT Attempted to contact patient and see how she is feeling this morning. Left contact information in documented in this encounterAvita Health [facility]09-08-2023 Miscellaneous Notes* Telephone Encounter - Mena Vernon MD - 11/15/2022 10:15 PM EDT The following approved medication requests have been transmitted electronically. Requested Prescriptions Signed Prescriptions Disp Refills ADDERALL 30 mg tablet 60 tablet 0 Sig: Take 1 tablet by mouth twice daily for 30 days. Do not start before November 22, 2022. Authorizing Provider: MENA VERNON MD * Telephone Encounter - Fariha Syed LPN - 11/15/2022 1:51 PM EDT Last office visit: 07/10/22 Next appointment scheduled: 12/09/22 Last labs: 06/19/18 last tox screen Patient phones requesting refills as follows: Requested Prescriptions Pending Prescriptions Disp Refills ADDERALL 30 mg tablet 60 tablet 0 Sig: Take 1 tablet by mouth twice daily for 30 days. Please review and advise. Fariha Syed LPN documented in this encounterAvita [facility]2023 Miscellaneous Notes* Telephone Encounter - Fariha Syed LPN - 10/22/2022 1:27 PM EDT Last office visit: 07/10/2022 Next appointment scheduled: 10/22/2022 Last labs: 06/19/2018 last tox screen Patient phones requesting refills as follows: Requested Prescriptions Pending Prescriptions Disp Refills ADDERALL 30 mg tablet 60 tablet 0 Sig: Take 1 tablet by mouth twice daily for 30 days. Fariha Syed LPN documented in this encounterAvita Health [facility]2023 History of Present illness Narrative* Jaylan Syed MD - 10/22/2022 8:57 AM EDT Liudmila is a 37 year old who presents for an annual gynecologic exam with complaints, acne . Some shoulder acne as well. Some increased hair growth on face Menses: cycles every 28 days and 3 days of flow. Contraception: tubal sterilization HPV vaccine: No Last Pap: 07/10/2020 normal HPV: 07/08/2020 negative History of abnormal pap: Yes Last mammogram: 2021 Sexually active: Yes OB History T3 L3 SAB0 IAB0 Ectopic0 Multiple0 Live Births3 Tobacco Buyer History LMP: 10/08/2022 (Within Days), Having periods Age at Menarche: Age at First : Age at Menopause: Tobacco Buyer History Comments: Sexual Activity: Yes; Male; bilateral salpingectomy Contraception: Condom, Tubal Ligation PAST MEDICAL HISTORY Diagnosis Date Abnormal Pap smear of cervix 2016 ASCUS pap , negative HPV Adult attention deficit disorder Obesity, unspecified PAST SURGICAL HISTORY Procedure Laterality Date ADENOIDECTOMY PRIMARY <AGE 14 Adenoidectomy PAST SURGICAL HISTORY OF normal vaginal delivery PAST SURGICAL HISTORY OF 10/08/2013 wisdom teeth SALPINGECTOMY Bilateral 11/09/2021 Laparoscopic B/L Salpingectomy at [facility]-Dr. Syed TONSILLECTOMY PRIMARY/SECONDARY <AGE 14 FAMILY HISTORY Problem Relation Age of Onset Arthritis Mother Lipids Mother No Known Problems Father Headache Sister No Known Problems Brother No Known Problems Brother Diabetes Maternal Grandmother Arthritis Maternal Grandmother Heart Maternal Grandmother Hypertension Maternal Grandmother Psychiatry Maternal Grandmother Alcohol/Drug Maternal Grandfather Arthritis Maternal Grandfather Heart Maternal Grandfather Hypertension Maternal Grandfather Diabetes Paternal Grandmother Arthritis Paternal Grandmother No Known Problems Son No Known Problems Other No Known Problems Daughter SOCIAL HISTORY Social History Tobacco Use Smoking status: Former Types: Cigarettes Quit date: 06/03/2008 Years since quittin.3 Smokeless tobacco: Never Tobacco comments: 2 Cigarettes per week Vaping Use Vaping Use: Never used Substance Use Topics Alcohol use: No Drug use: No REVIEW OF SYSTEMS Abdomen: No abdominal pain, nausea, vomiting, diarrhea, or constipation. No bloating, early satiety, indigestion, or increased flatulence. Bladder: No dysuria, gross hematuria, urinary frequency, urinary urgency, or incontinence. Breast: No breast lumps, nipple d/c, overlying skin changes, redness or skin retraction. Allergies and current medication updated:Yes EXAM: BP 148/90 Ht 5' 3 (1.60m) Wt 220 lb (99.8kg) LMP 10/08/2022 BMI 38.98 kg/(m^2). GENERAL: pleasant, female in no apparent distress HEENT: Normocephalic, atraumatic, mucus membranes moist, and no lesions NECK: Supple, full range of motion, no adenopathy, and thyroid normal DERMATOLOGY: Normal, without lesions, non-icteric, and non-hirsute BREAST: soft, non-tender, symmetric, no dominant mass, normal nipple-areolar complex, no lymphadenopathy, and no nipple discharge CHEST: Normal inspiratory effort ABDOMEN: soft, non-tender, and no masses PELVIC: external genitalia normal, normal Bartholin's glands, urethra, Friedenswald's glands, no vulvar lesions, no cervical lesions, good vaginal support, physiologic discharge present, normal appearing perineal body and perianal region BIMANUAL: uterus normal size, shape and consistency, no adnexal masses, and non-tender RECTOVAGINAL: deferred. NEURO: alert and oriented x3,exam grossly non-focal EXTREMITIES: normal ASSESSMENT/PLAN: 1) Health maintenance: Pap/HPV up to date. Mammogram starting age 40. 2) Contraception: tubal sterilization. Contraceptive options reviewed and information provided. 3) STD screening: Declined STD check. 4) Follow up one year or sooner as needed acne- check labs obesity- d/w her option of consult w/ weight management team/provider and she would like to proceedwith this. Jaylan Syed MD documented in this encounterAvita Health System [facility]05-08-2023 Miscellaneous Notes* Telephone Encounter - Deepti Redd APRN.CNS - 07/15/2022 4:40 PM EDT Sent in by Dr Syed * Telephone Encounter - Ashley Sprague RN - 07/15/2022 9:15 AM EDT Pt called in and reports she is having vaginal burning and itching. She is asking if the provider would call in Fluconazole to [facility] pharmacy for her. I let Pt know that she need to come in and be see. Patient has been identified by name and date of : Yes, Provider Dr Vernon Date 07/15/22 Time 0917. Patient phones for refill(s): Requested Prescriptions Pending Prescriptions Disp Refills fluconazole (DIFLUCAN) 150 mg tablet 1 tablet 0 Sig: Take 1 tablet by mouth once daily for 1 day. Date of last office visit in primary care: 07/10/22 Future visit: none Last 2 Encounter Wt Readings: Date: Wt: 04/10/2022 94.3 kg (208 lb) 04/02/2022 97.1 kg (214 lb) Previous labs/tests for medication: Blood Pressure: BUN (mg/dL) Date Value 04/18/2016 4 Sodium (mmol/L) Date Value 04/18/2016 138 Last 1 Encounter BP Readings: Date: BP: 04/10/2022 130/74 Liver Function: ALT (U/L) Date Value 04/18/2016 10 AST (U/L) Date Value 04/18/2016 12 Please advise. Thank you. Ashley Sprague RN documented in this encounterAvita Health System [facility]05-08-2023 Miscellaneous Notes* Telephone Encounter - Robyn Perez RN - 07/15/2022 2:04 PM EDT Patient calling c/o yeast infection symptoms of vaginal itching/irritation. Asking for diflucan refill. Only call back with problems. Robyn Perez RN documented in this encounterAvita Health System [facility]05-04-2023 Miscellaneous Notes* Telephone Encounter - Leora Gambino Ma - 07/11/2022 9:06 AM EDT [employer] will not cover name brand lexapro and not willing to approve PA since not clinical evidence that generic ineffective. Spoke to patient who is aware and fine with generic being sent. Pleasesend rx Leora Gambino Ma documented in this encounterAvita Health System [facility]05-03-2023 History of Present illness Narrative* Mena Vernon MD - 07/10/2022 10:40 AM EDT VIRTUAL VISIT PROGRESS NOTE This is a virtual visit using [employer] video visit. It required patient-provider interaction for themedical decision making as documented below. I have communicated my name and active licensure. The patient's identity and physical location wereverified at the time of this visit. Either the patient or their legal sales representative [employer] fibers has been informed of the risks and benefits of -- and alternatives to -- treatment through a remote evaluation andconsents to proceed with the evaluation remotely. Liudmila Worley is a 36 year old female seen for follow up. Wonders about med for depression and anxiety. Some irritability Migraines the past couple months. Few times a weeks--Excedrin migraine does help. Stressors noted. 2,11, 14 yo kids. Did online questionnaire and Lexapro popped up. Had depression symptoms during . Prefers to see psychotherapists or psychologist rather than a therapist. Prefers namebrand. Concerned about potential for adverse effects with generic meds. Dry eyes discussed. Has not closed eyes for a few minutes after applying drops (saline lubricating eye drops). Eye feel irritated and burn. HISTORY REVIEWED (electronic chart updated): PAST MEDICAL HISTORY Diagnosis Date Abnormal Pap smear of cervix 2015 ASCUS pap , negative HPV Adult attention deficit disorder Obesity, unspecified PAST SURGICAL HISTORY Procedure Laterality Date ADENOIDECTOMY PRIMARY <AGE 14 Adenoidectomy PAST SURGICAL HISTORY OF normal vaginal delivery PAST SURGICAL HISTORY OF 10/08/2013 wisdom teeth SALPINGECTOMY Bilateral 11/09/2021 Laparoscopic B/L Salpingectomy at [facility]-Dr. Syed TONSILLECTOMY PRIMARY/SECONDARY <AGE 12 FAMILY HISTORY Problem Relation Age of Onset Arthritis Mother Lipids Mother No Known Problems Father Headache Sister No Known Problems Brother No Known Problems Brother Diabetes Maternal Grandmother Arthritis Maternal Grandmother Heart Maternal Grandmother Hypertension Maternal Grandmother Psychiatry Maternal Grandmother Alcohol/Drug Maternal Grandfather Arthritis Maternal Grandfather Heart Maternal Grandfather Hypertension Maternal Grandfather Diabetes Paternal Grandmother Arthritis Paternal Grandmother No Known Problems Son No Known Problems Other No Known Problems Daughter Social History Tobacco Use Smoking status: Former Types: Cigarettes Quit date: 06/03/2008 Years since quittin.1 Smokeless tobacco: Never Tobacco comments: 2 Cigarettes per week Vaping Use Vaping Use: Never used Substance Use Topics Alcohol use: No Drug use: No Current Outpatient Medications Medication Sig ADDERALL 30 mg tablet Take 1 tablet by mouth twice daily for 30 days. Do not start before April 20, 2022. ADDERALL 30 mg tablet Take 1 tablet by mouth twice daily for 30 days. Do not start before May. ADDERALL 30 mg tablet Take 1 tablet by mouth twice daily for 30 days. Do not start before June. ADDERALL 30 mg tablet Take 1 tablet by mouth twice daily for 30 days. Do not start before March 15, 2022. ADDERALL 30 mg tablet Take 1 tablet by mouth twice daily for 14 days. Do not start before March 01, 2022. No current facility-administered medications for this visit. ALLERGIES Allergen Reactions Seasonal Allergies Other: See Comments REVIEW OF SYSTEMS: As noted in HPI PHYSICAL EXAMINATION: VIDEO EXAM: (if completed, performed via video enabled technology) GENERAL: alert and appropriate, in no distress, well-hydrated, well nourished, appears anxious to depressed at times while discussing stressors and need for med to help with anxiety and depression but affect is reactive, overweight. HEAD: normocephalic, no abnormality or lesion noted EYES: no injection and visual acuity is grossly normal RESPIRATORY: breathing non-labored Encounter Diagnosis ICD-10-CM 1. Attention deficit hyperactivity disorder (ADHD), unspecified ADHD type F90.9 ADDERALL 30 mg tablet ADDERALL 30 mg tablet ADDERALL 30 mg tablet 2. Anxiety and depression F41.9 LEXAPRO 10 mg tablet F32.A 3. Dry eyes H04.123 Above issues addressed with patient. Patient involved in shared decision making for management of medical issues. History and medications reviewed. Epic updated as needed Refills and/or prescriptions taken care of and meds adjusted as indicated after reviewed history, exam and labs. Health Maintenance reviewed. Updated record and/or ordered tests as recorded. Encouraged on efforts at healthy diet and regular exercise and adequate sleep. Stable with control of ADHD. At this time benefits outweigh risks. Continue to monitor for adverse effects and indications for decreasing dose or tapering off. No signs of diversion or abuse of medication(s); no adverse effects. Continue present management. Depression and anxiety symptoms increased to point needs to try a medication to help control symptoms. better. Consider Psychiatrist or Psychologist to help with management of symptoms--seems she is leaning toward a psychologist who could help more with counseling than prior therapists has followedwith over the years. Will see if medication adequate first then refer as needed. One who specializes in family counseling may be most effective since from discussion today, stressors sound related tomanaging family dynamics/issues. Emotional support given. Adjust Lexapro as needed. Discussed R/B/I/A. Low risk for interaction with Adderall to cause serotonin syndrome discussed. Discussed proper use of saline lubricating eye drops. If not adequate for treating and preventing eye irritation, then consider other eye drops as well as evaluation by ophthalmology. Mena Vernon MD documented in this encounterAvita Health System [facility]04-15-[address] [facility] June 22, 2022 5:13pm Note Date/Time June 22, 2022 5:0 9pm [facility] Medical Records Department [address] [place] [address] Emergency Department Summary 06/22/22 MR#: [id number] Acct: [id number] Name: LIUDMILA WORLEY Rep #:[id number] : 1985 36 From: Johnny Barney MD PCP: Dr. Mena Vernon MD Status:SD E ER Location: ED HPI History of Present Illness Chief Complaint: Burn Detail of Chief Complaint: Burn/rash in the area of the right and left knee. Onset/Context/Timing Onset: Days Context: Sudden Onset Timing: Continuous Quality: Erythematous rash with pustules and drainage Location: In the proximity of the right and left knee more so inferior than superior Current Severity: Moderate Maximum Severity: Moderate Worsened by: Nothing specific Relieved by: Nothing Associated Symptoms Associated Symptoms: None Narrative Narrative: Patient is a 36-year-old woman who states her and her were trying to save money by pouring their own cement. She apparently kneeled on cement. She developed a rash. She subsequently placed triple antibiotic ointment on it. She now presents because of pustules and drainage. She denies fever, chills night sweats. No systematic fever, heart murmur, SBE, mitral valve prolapse andis on no immunosuppressive meds. She denies history of diabetes or symptoms of diabetes. Prior similar symptoms: No Recent Illness/Hospitalization: No PFSH PFSH Medical History ADHD Alcohol use Anxiety Depression Former smoker Hx of vaginal delivery Hypertension Migraine headache Wears glasses Home Medications dextroamphetamine-amphetamine 30 mg tablet (Adderall) 30 mg PO BID 11/08/21 [History Last Taken Unknown] multivitamin 1 tab PO DAILY 11/08/21 [History Last Taken Unknown] ibuprofen 600 mg tablet 600 mg PO Q6H PRN Pain 10 days #30 TABLETS 11/09/21 [Rx Last Taken Unknown] doxycycline monohydrate 100 mg capsule 100 mg PO BID #10 CAPSULES 06/22/22 [Rx Last Taken Unknown] Allergy/AdvReac Type Severity Reaction Status Date / Time No Known Allergies Allergy Verified 06/22/22 16:46 Surgical History History of tonsillectomy and adenoidectomy Social History (Updated 06/22/22 @ 17:[address] Johnny Barney MD) household members: spouse Smoking Status: Former smoker substance use type: does not use ROS ROS ED Constitutional Constitutional ED: Denies chills, fever(s), subjective, sweats or weight loss Eyes Eyes: Denies blurry vision, change in vision or diplopia ENT ENT ED: Denies ear pain, rhinorrhea or sore throat Cardiovascular Cardiovascular: Denies palpitations or racing heartbeat Respiratory/Chest Respiratory/Chest: Denies dyspnea Gastrointestinal Gastrointestinal: Denies nausea or vomiting Genitourinary Genitourinary ED: Reports other Details: Patient denies any signs or symptoms ofpregnancy. Integumentary Reports rash Hematologic/Lymphatic Hematologic/Lymphatic: Reports systems reviewed and no addt'l complaints, exceptas documented EXAM Physical Exam Const Vital Signs: 06/22/22 16:43 Temperature 97.8 F Temperature Source Temporal Pulse Rate 94 Respiratory Rate 16 Blood Pressure 167/90 H Blood Pressure Mean 115 Pulse Ox 100 Oxygen Delivery Method Room Air Positive well nourished, well developed and obese General Appearance ED: well developed and NAD; Negative for cyanotic, diaphoretic or pallor Nutritional Appearance: obese HEENT Reports moist mucous membranes HEENT Narrative: Head is atraumatic normocephalic. Ears normal. Nares patent. Eyes PERRL and EOMs intact bilaterally General Eye ED: Negative for pale conjunctiva or scleral icterus Neck no lymphadenopathy, supple and no JVD Resp normal respiratory effort Cardio regular rate and regular rhythm Extremity Negative for normal to inspection Extremity Narrative: Slight soft tissue swelling noted. There is a erythematous slightly blanching rash predominately inferior the right and left patella with pustules and drainage noted. There is no popliteal angle lymphadenopathy. There is no lymphangitis. There is no fluctuance. Neuro oriented x3 and CN's II-XII intact bilaterally Sensorium / Orientation: alert Psych mental status grossly normal Skin No no rashes or lesions noted, No no wounds and skin turgor normal General Skin Exam: elasticity normal; Negative for jaundice or pallor MDM MDM MDM Narrative Medical decision making narrative: Patient initially had a chemical dermatitis and may have an allergic component due to the triple antibiotic cream. Patient was instructed to stop the triple antibiotic cream since there is a 9 to 10% incidence of allergic reaction to thetriple antibiotic ointment. Because she has pustules with purulent drainage will place on doxycycline to cover both strep and staphylococcal organisms. Blood pressure is elevated which may be due to her being in the emergency department. Since she has no history hypertension we will have her follow-up with her primary care physician to have this rechecked. History & Record Review Additional record(s) reviewed:: Prior outpatient record and Prior ED visit (No significant pathology other than the ADHD. Seen for minor complaints.) Treatment and Re-Evaluation :: Patient received first dose of doxycycline in department. She was discharged with scription for doxycycline. Discharge Plan Triage Chief Complaint: Burn ED Provider: Johnny Barney Dx/Rx/DC Orders Clinical Impression: Pustular rash, Chemical induced allergic contact dermatitis, Allergic dermatitis Instructions: ED Cellulitis, ED Chemical Burn, Skin Prescriptions: New doxycycline monohydrate 100 mg capsule 100 mg PO BID Qty: 10 0RF No Action multivitamin Tablet 1 tab PO DAILY dextroamphetamine-amphetamine [Adderall] 30 mg tablet 30 mg PO BID Label Comments: TAKE 1 TABLET BY MOUTH 2CTIMES A DAY ibuprofen [ibuprofen] 600 MG tablet 600 mg PO Q6H PRN (Reason: Pain) 10 Days Qty: 30 1RF Primary Care Provider: Mena Vernon Referrals: Mena Vernon MD [Primary Care Provider] - 3-5 Days Activity Restrictions/Additional Instructions: 1. Disc continue application of triple antibiotic ointment. 2. If you wish to apply appointment use bacitracin ointment. 3. Take antibiotics until gone 4. If you develop temperature greater than 100 have shaking chills or red streak toward your groin return to the emergency department Disposition Disposition: Home, Self Care What to do if you have Problems For any increased pain, shortness of breath, bleeding, nausea or vomiting, chestpain, or any unexpected problems, contact your Primary Care Provider. Call [facility] ([phone]) or report to the closest Emergency Room. Call 911 if necessary. 06/22/221712 <Electronically signed by Johnny Barney MD> Cosigner Signature (if applicable): CC: Dr. Mena Vernon MD ~ Signed [facility] Work Phone: [phone] 119-482502-16-2023 Miscellaneous Notes* Telephone Encounter - Leyla Hussein SYD - 04/25/2022 9:30 AM EST Rec'd fax noting this was already approved until 03/18/23. * Telephone Encounter - Leyla Hussein LPN - 04/23/2022 2:49 PM EST LIUDMILA WORLEY (Cisse: [id number]) - [id number] Adderall 30MG tablets Status: Sent to Plan Created: April 20, 2022 Sent: April 23, 2022 documented in this encounter[facility] History of Present illness Narrative* Mena Vernon MD - 04/10/2022 11:05 AM EST This note was created using [employer]. Subjective Liudmila Worley is a 36 year old female. Patient presents with: F/U 3 Month SUBJECTIVE: Liudmila Worley is a 36 year old year old lady here today for 3 month follow up appointment for review of medical conditions. Stable on meds. Issues with getting meds--availability at pharmacy. PAST MEDICAL HISTORY Diagnosis Date Abnormal Pap smear of cervix 2016 ASCUS pap , negative HPV Adult attention deficit disorder Obesity, unspecified Current Outpatient Medications Medication Sig ADDERALL 30 mg tablet Take 1 tablet by mouth twice daily for 30 days. Do not start before March 15, 2022. ADDERALL 30 mg tablet Take 1 tablet by mouth twice daily for 14 days. Do not start before March 01, 2022. Amphetamine-Dextroamphetamine (ADDERALL) 30 mg tablet Take 1 tablet by mouth twice daily for 30 days. No current facility-administered medications for this visit. Review of Systems Objective BP 130/74 Pulse 104 Temp 36.7 C (98 F) Resp 18 Wt 94.3 kg (208 lb) LMP 04/07/2022 (Exact Date) SpO2 99% BMI 36.85 kg/m Last 5 Encounter Wt Readings: Date: Wt: 04/10/2022 94.3 kg (208 lb) 04/02/2022 97.1 kg (214 lb) 01/28/2022 96.2 kg (212 lb) 10/23/2021 96.2 kg (212 lb) 09/19/2021 97.1 kg (214 lb) No waist measurement recorded Estimated body mass index is 36.85 kg/m as calculated from the following: Height as of 10/23/21: 160 cm (5' 3). Weight as of this encounter: 94.3 kg (208 lb). Last 5 Encounter BP Readings: Date: BP: 04/10/2022 130/74 04/02/2022 138/86 01/28/2022 154/90 10/23/2021 142/96 10/10/2021 136/92 Physical Exam Constitutional: Appearance: Normal appearance. HENT: Head: Normocephalic. Eyes: Conjunctiva/sclera: Conjunctivae normal. Cardiovascular: Rate and Rhythm: Normal rate and regular rhythm. Heart sounds: Normal heart sounds. Pulmonary: Effort: Pulmonary effort is normal. Breath sounds: Normal breath sounds. Skin: General: Skin is warm and dry. Neurological: General: No focal deficit present. Mental Status: She is alert and oriented to person, place, and time. Psychiatric: Mood and Affect: Mood normal. Behavior: Behavior normal. Thought Content: Thought content normal. Judgment: Judgment normal. Mammogram reviewed. [facility] Assessment and Plan Encounter Diagnosis ICD-10-CM 1. Attention deficit hyperactivity disorder (ADHD), unspecified ADHD type F90.9 ADDERALL 30 mg tablet ADDERALL 30 mg tablet ADDERALL 30 mg tablet 2. Encounter for long-term current use of medication Z79.899 TOX SCREEN ROUT UR 3. Encounter for immunization Z23 Above issues addressed with patient. Patient involved in shared decision making for management of medical issues. History and medications reviewed. Epic updated as needed Refills and/or prescriptions taken care of and meds adjusted as indicated after reviewed history, exam and labs. Health Maintenance reviewed. Updated record and/or ordered tests as recorded. Encouraged on efforts at healthy diet and regular exercise and adequate sleep. Stable with control of ADHD--helps with getting work done. Noted issues with pharmacy having enoughmed to refill RXs. Work with pharmacy to get meds on time. At this time benefits outweigh risks. Continue to monitor for adverse effects and indications for decreasing dose or tapering off. No signs of diversion or abuse of medication(s); no adverse effects. Continue present management. Mena Vernon MD documented in this encounterAv[facility]01-24-[facility] History of Present illness Narrative* MIO Meyer - 04/02/2022 8:14 PM EST This note was created using [employer]. Subjective Liudmila Worley is a 36 year old female. HPI 36-year-old female presents for nausea, body aches. Patient states she has been having some achiness for about a week. Her family has been sick recently. She reports nausea, no vomiting. No fevers. Mild cough. No congestion. No ear pain. No fevers. No sore throat PAST MEDICAL HISTORY Diagnosis Date Abnormal Pap smear of cervix 2015 ASCUS pap , negative HPV Adult attention deficit disorder Obesity, unspecified PAST SURGICAL HISTORY Procedure Laterality Date ADENOIDECTOMY PRIMARY <AGE 14 Adenoidectomy PAST SURGICAL HISTORY OF normal vaginal delivery PAST SURGICAL HISTORY OF 10/08/2013 wisdom teeth SALPINGECTOMY Bilateral 11/09/2021 Laparoscopic B/L Salpingectomy at [facility]-Dr. Syed TONSILLECTOMY PRIMARY/SECONDARY <AGE 14 ALLERGIES Seasonal Allergies MEDICATIONS ADDERALL 30 mg tablet Take 1 tablet by mouth twice daily for 30 days. Do not start before March 15, 2022. ADDERALL 30 mg tablet Take 1 tablet by mouth twice daily for 14 days. Do not start before March 01, 2022. Amphetamine-Dextroamphetamine (ADDERALL) 30 mg tablet Take 1 tablet by mouth twice daily for 30 days. FAMILY HISTORY Problem Relation Age of Onset Arthritis Mother Lipids Mother No Known Problems Father Headache Sister No Known Problems Brother No Known Problems Brother Diabetes Maternal Grandmother Arthritis Maternal Grandmother Heart Maternal Grandmother Hypertension Maternal Grandmother Psychiatry Maternal Grandmother Alcohol/Drug Maternal Grandfather Arthritis Maternal Grandfather Heart Maternal Grandfather Hypertension Maternal Grandfather Diabetes Paternal Grandmother Arthritis Paternal Grandmother No Known Problems Son No Known Problems Other No Known Problems Daughter Social History Tobacco Use Smoking status: Former Types: Cigarettes Quit date: 06/03/2008 Years since quittin.8 Smokeless tobacco: Never Tobacco comments: 2 Cigarettes per week Vaping Use Vaping Use: Never used Substance Use Topics Alcohol use: No Drug use: No Review of Systems Constitutional: Positive for fatigue. Negative for chills and fever. HENT: Negative for congestion, ear pain and sore throat. Respiratory: Positive for cough. Negative for shortness of breath. Cardiovascular: Negative for chest pain. Gastrointestinal: Positive for nausea. Negative for diarrhea and vomiting. Musculoskeletal: Positive for myalgias. Objective BP 138/86 Pulse 100 Temp 36.8 C (98.3 F) Resp 16 Wt 97.1 kg (214 lb) LMP 01/18/2022 (Exact Date) SpO2 99% BMI 37.91 kg/m Physical Exam Vitals and nursing note reviewed. Constitutional: General: She is not in acute distress. Appearance: Normal appearance. She is not toxic-appearing. HENT: Right Ear: Tympanic membrane and ear canal normal. Left Ear: Tympanic membrane and ear canal normal. Nose: Nose normal. Mouth/Throat: Mouth: Mucous membranes are moist. Pharynx: No oropharyngeal exudate or posterior oropharyngeal erythema. Eyes: Conjunctiva/sclera: Conjunctivae normal. Cardiovascular: Rate and Rhythm: Normal rate and regular rhythm. Pulmonary: Effort: Pulmonary effort is normal. Breath sounds: Normal breath sounds. Neurological: Mental Status: She is alert. Assessment and Plan ASSESSMENT/PLAN: 1. URI, acute - ICD9: 465.9, ICD10: J06.9 (primary diagnosis) - Discussed viral etiology and rationale for treatment. - Symptomatic treatment with prn analgesia - Supportive care with fluids and rest -Offered COVID/flu swab, but she declined. 2. Nausea - ICD9: 787.02, ICD10: R11.0 -Likely viral illness. -Supportive treatment at home. -Offered COVID/flu swab, but declined. Diagnosis and treatment plan were discussed and questions were answered to the patient's satisfaction. Pt acknowledged understanding of concepts and follow up plan. Specific signs and symptoms that would indicate the need for higher level of care were discussed in detail warranting prompt ER evaluation. MIO Meyer documented in this encounterAvita [facility]01-12-2023 Miscellaneous Notes* Telephone Encounter - Leora Gambino Ma - 03/21/2022 9:52 AM EST Spoke to [facility] josef who advised stating need PA. Called [facility] and they advised name brand is approved appears issue on pharmacy end when running RX are not using correct code. Spoke to [facility] pharmacy again and josef stated needing CHAZ-9 so ran and went through. PA is approved and patient notified. Ref# [id number] Leora Gambino Ma * Telephone Encounter - Leyla Hussein LPN - 03/20/2022 10:52 AM EST Rec'd approval from [facility] for dextromphetamine/amthetamine 03/19/22 to 03/18/23. But this PA is for ADDERALL. Brand not generic. Will wait for that PA to be reviewed. * Telephone Encounter - Leora Gambino Ma - 03/19/2022 3:13 PM EST Prior Authorization has been completed online at [employer] for Adderall, will await response. [id number] Please keep encounter open until final decision has been received and documented from insurance company. Leora Gambino MA * Telephone Encounter - Fariha Syed LPN - 03/19/2022 11:41 AM EST Patient states that the prior authorization for the brand name Adderall is and a new prior authorization is needed for brand name. She is also due for a refill of Adderall but because prior authorization has will have to be written for generic. She states that the generic she is able to take the pharmacy has in stock at this time. documented in this encounterAvita [facility]12-09-2022 History of Present illness Narrative* Kamron Sharif - 02/15/2022 8:30 AM EST Patient offered a medical taker off hemp fiber for sensitive exam. Pt declined [facility] History and physical note* Venita Nair, FUELER-BONING ROOM WORKER - 02/15/2022 8:00 AM EST Date of Service: 02/15/2022 History of Present Illness: Chief Complaint Patient presents with New Patient Here for evaluation of right breast flatter and c/o right breast pain lateral to the right nipple. Present for the last few months. Denies nipple discharge. States right breast feels warm at times. Liudmila Worley is a 36 y.o. premenopausal female who presents to the [facility] on 02/15/2022 for evaluation regarding right breast changein contour-appears flatter and also reports right breast pain adjacent to the nipple. Pain in the right breast is focal, non cyclic rates at 2/10. She also reports intermittent warmth in the right breast. She reports first noticing these symptoms for a few months. She feels that at times she has found a pea size lump in the region of the right focal breast pain. She has not noted any associated left breast masses, B/L skin changes, B/L nipple discharge, or left pain. Denies injury to breast/chest wall. Denies any nipple piercing in the past. Denies any recent vaccines in the UE. She presents to the [facility] today for evaluation. Liudmila Worley reports examining her breasts intermittently. She denies any history of breast problems or previous breast biopsy. She has not had prior breast imaging. She denies any family history of breast or ovarian cancer. She advises her mother is currently being evaluated for a breast finding that might be cystic in nature. Ms. Worley took OCPs 10-15 years. Menses began at age 14 years. 3 times. Age at first live 25 years. She breast fed her children. 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 01/2022 Last PAP: 2021 Para: 3 Age at of first child: 25 Age of menarche: 14 Age of menopause: n/a Patient denies hormonal therapy at this time. BREAST (GENERAL): Patient admits to self-breast exams and does them intermittently. Date of patient's first mammogram: n/a Date of most recent mammogram: n/a Bra/Cup Size: 44F BREAST(HISTORICAL BIOPSY/THERAPY/TREATMENT) Patient denies previous breast biopsy(s). Patient denies being told they personally have breast cancer or a breast malignancy. Patient denies chemotherapy, hormone therapy or radiation therapy during the last month. Family/Social History: Her family history is not on file. She reports that she has quit smoking. Her smoking use included cigarettes. She has never used smokeless tobacco. She reports current alcohol use. She reports that she does not currently use drugs. Medications/Allergies/Immunizations: Current Outpatient Medications Medication Sig amphetamine-dextroamphetamine (Adderall) 30 MG tablet Take 30 mg by mouth 2 times daily. Multiple Vitamin (multivitamin) capsule Take 1 capsule by mouth daily. No Known Allergies Immunization History Administered Date(s) Administered COVID-19 vaccine, mRNA, Pfizer, 0.3 ML 11/29/2020, 02/07/2021 Review of Systems: General/Constitutional: Negative for fever, chills, fatigue, recent unexplained weight gain or loss. HEENT: No visual disturbances, diplopia. No hearing loss, tinnitus, sore throat, nosebleeds, and rhinorrhea. No dysphagia or odynophagia. Cardiovascular: Negative for persistent palpitations or chest pain. States she does drink coffee and takes Adderall. Sometimes feels that she can't take a deep breath and this causes some panic. States some occasional dyspnea at rest that just goes away. Respiratory: No history of TB exposure. Negative for chronic or productive cough, hemoptysis, or asthma. Non smoker. Lymph/Heme: No history of hematologic malignancies or bleeding disorders. Denies any blood thinner use. Gastrointestinal: Negative for abdominal pain, nausea, vomiting, diarrhea, constipation or changes in bowel habits. Genitourinary: Negative for dysuria or hematuria. No frequency, urgency, or hesitancy. Musculoskeletal: Negative for arthralgias, myalgias, or back pain. Neurological: Negative for dizziness, syncope, focal weakness. In the past one year has been experiencing headaches behind the eyes. OTC analgesics sometimes helpful. Psychiatric: +Attention concerns on Adderall. Some low mood but feels this is stable and denies anysuicidal/homicial ideation. C/o some arm pain and intermittent tremor which she has reported to herPCP. Endocrine: Negative for polyuria, polydipsia or hot/cold intolerance. Skin: Negative for acute skin lesions. Physical Exam: Vital Signs: BP (!) 162/93 Pulse 86 Temp 98.3 F (36.8 C) Ht 1.321 m (4' 4) Wt 95.3 kg (210lb 1.6 oz) BMI 54.63 kg/m Smoking Status Former , General/Constitutional: Well developed, well nourished female, who looks their stated age of 36 y.o.. No acute distress. HEENT: Head: Normocephalic and atraumatic. Eyes: Pupils are equal, round, and reactive to light andaccomodation. Extraocular movements are intact. Sclerae are anicteric. Neck: Supple, non-tender, with no lymphadenopathy. No jugular venous distension, carotid bruits, or tracheal deviation. Pulmonary/Chest: Respirations regular and easy w/symmetric expansion. No cough noted during interview/exam. Normal effort. Breast/ChestWall: Examined sitting and supine. Breasts appear symmetric, large, ptotic. There are no dominant masses present in either breast. There are no nipple abnormalities or skin changes bilaterally. There is no supraclavicular or axillary adenopathy present. There is no significant left breast pain or tenderness on exam today. She has focal pain of 2-3 cm at 10:00 9-10 cmfn and advises shemay have felt a pea size lump there. Abdominal: Normoactive bowel sounds in all four quadrants. Soft, non-tender, non-distended. No organomegaly. No hepatojugular reflux. No abdominal wall hernias. No guarding, rebound, or CVA tenderness. Extremities: Normal range of motion in all four extremities, with normal strength equally and symmetrically. No cyanosis or clubbing or peripheral edema. Radial pulses easily palpable and regular. Peripheral Vascular Exam: Normal radial, posterior tibialis, and dorsalis pedis arterial pulses. Neurological: Conscious, alert and oriented. Cranial nerves II through XII are intact grossly and symmetrically. No focal neurologic deficit. Skin: Skin is warm and dry. She is not diaphoretic. Psychiatric: Appropiate mood and affect for her clinical situation. Imaging Data: EXAM: MAMMO DIAGNOSTIC WITH MATA BILATERAL, US BREAST LIMITED UNILATERAL RIGHT, 02/15/2022 09:49 AM (accession [id number]), 02/15/2022 09:56 AM (accession [id number]) CLINICAL INDICATIONS: Palpable abnormality 10:00 right breast COMPARISON: No prior studies available for comparison. MAMMOGRAM TECHNIQUE: 2-D MLO and CC views were obtained of the bilateral breasts. 3-D MLO and CC digital tomosynthesis images were also acquired. Computer aided detection was utilized. MAMMOGRAPHIC FINDINGS: The breasts have scattered areas of fibroglandular density. No suspicious masses, suspicious calcifications or areas of distortion identified in either breast. ULTRASOUND TECHNIQUE: Multiple real-time sinclair-scale images of the right breast in the 10 o'clock axis are performed. Color Doppler was used to assess vascular flow. ULTRASOUND FINDINGS: There is no evidence of mass lesions, architectural distortion, or abnormal blood flow. IMPRESSION: Negative bilateral mammogram and negative targeted right breast ultrasound. Clinical follow-up and management of the patient's symptoms recommended BI-RADS: 1: Negative Recommendation: Clinical correlation/management. Recommendation Laterality: Right Impression and Plan: Impression: Ms. Worley is a 36 year old premenopausal woman that presents to the [facility] for evaluation of change in right breast contour (appears flatter), focal non cyclic right breast pain with possibly a pea size lump in the region. She also reports some intermittent right breast warmth. Clinical exam without suspicious findings. I recommended B/L diagnostic mammogram and right breast ultrasound. Plan: I reviewed the findings of today's B/L diagnostic mammogram and right breast ultrasound with Ms. Worley in detail. I advised of the dense tissue and negative findings. Today we reviewed the importance of engaging in self breast awareness. I advised it is important toknow how your breasts normally look and feel so that changes are able to be detected. I recommendedthe patient call for evaluation if a change is seen or felt in either breast. This includes, but isnot limited to: changes to the nipple which includes scaling, discharge, inversion, rashes or sores, signs of breast infection (+/- pain, +/-erythema, +/- excess warmth), new lumps under the arm pit,sudden changes in shape or size of the breast(s), skin irritation to the breast or nipples, dimpling or skin thickening, or darkening of the breasts. Written literature from the [facility] was provided today regarding breast health. Today we discussed cyclical/noncyclical breast pain. I provided reassurance that breast pain is nota common sign of breast cancer and that today's clinical breast exam and breast imaging are withoutsuspicious findings. We reviewed common causes of breast pain. We discussed that chronic breast pain can be a difficult problem to manage and treat, both from theperspective of the patient and from the perspective of the treating provider as often times no clear etiology can be found. We reviewed strategies to mitigate breast pain including obtaining/maintaining a healthy weight which may lower circulating endogeneous estrogen levels thus decreasing chronicbreast pain, elimination/reduction of caffeine, smoking cessation, participation in moderate physical activity, addition of oral Flax Seed 25 grams daily if deemed safe by a healthcare provider, decreasing sodium intake, and decreasing alcohol intake. I encouraged the utilization of a well fitting s upportive bra, such as a sports bra. I advised that utilization of over the counter (OTC) analgesics could be helpful if deemed safe by a healthcare provider. Further, I advised that topical OTC Voltaren Gel 1% could be a helpful analgesic. [facility] patient education literature was provided regarding breast pain (mastalgia). Urged to call for any breast related changes or if the breast pain failed to improve or worsened. Contact information was provided. RTC prn. Orders Placed This Encounter MAMMO DIAGNOSTIC WITH MATA BILATERAL US BREAST LIMITED UNILATERAL RIGHT amphetamine-dextroamphetamine (Adderall) 30 MG tablet Multiple Vitamin (multivitamin) capsule Venita Nair, FUELER-BONING ROOM WORKER, AOCNP Breast Surgical Oncology [facility] P: [phone] [facility]12-09-2022 History and physical note* PIOTR Cox - 02/15/2022 8:00 AM EST Date of Service: 02/15/2022 History of Present Illness: Chief Complaint Patient presents with New Patient Here for evaluation of right breast flatter and c/o right breast pain lateral to the right nipple. Present for the last few months. Denies nipple discharge. States right breast feels warm at times. Liudmila Worley is a 36 y.o. premenopausal female who presents to the [facility] on 02/15/2022 for evaluation regarding right breast changein contour-appears flatter and also reports right breast pain adjacent to the nipple. Pain in the right breast is focal, non cyclic rates at 2/10. She also reports intermittent warmth in the right breast. She reports first noticing these symptoms for a few months. She feels that at times she has found a pea size lump in the region of the right focal breast pain. She has not noted any associated left breast masses, B/L skin changes, B/L nipple discharge, or left pain. Denies injury to breast/chest wall. Denies any nipple piercing in the past. Denies any recent vaccines in the UE. She presents to the [facility] today for evaluation. Liudmila Worley reports examining her breasts intermittently. She denies any history of breast problems or previous breast biopsy. She has not had prior breast imaging. She denies any family history of breast or ovarian cancer. She advises her mother is currently being evaluated for a breast finding that might be cystic in nature. Ms. Worley took OCPs 10-15 years. Menses began at age 14 years. 3 times. Age at first live 25 years. She breast fed her children. She works in [employer] and has been very busy with open enrollment. 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 01/2022 Last PAP: 2021 Para: 3 Age at of first child: 25 Age of menarche: 14 Age of menopause: n/a Patient denies hormonal therapy at this time. BREAST (GENERAL): Patient admits to self-breast exams and does them intermittently. Date of patient's first mammogram: n/a Date of most recent mammogram: n/a Bra/Cup Size: 44F BREAST(HISTORICAL BIOPSY/THERAPY/TREATMENT) Patient denies previous breast biopsy(s). Patient denies being told they personally have breast cancer or a breast malignancy. Patient denies chemotherapy, hormone therapy or radiation therapy during the last month. Family/Social History: Her family history is not on file. She reports that she has quit smoking. Her smoking use included cigarettes. She has never used smokeless tobacco. She reports current alcohol use. She reports that she does not currently use drugs. Medications/Allergies/Immunizations: Current Outpatient Medications Medication Sig amphetamine-dextroamphetamine (Adderall) 30 MG tablet Take 30 mg by mouth 2 times daily. Multiple Vitamin (multivitamin) capsule Take 1 capsule by mouth daily. No Known Allergies Immunization History Administered Date(s) Administered COVID-19 vaccine, mRNA, Pfizer, 0.3 ML 11/29/2020, 02/07/2021 Review of Systems: General/Constitutional: Negative for fever, chills, fatigue, recent unexplained weight gain or loss. HEENT: No visual disturbances, diplopia. No hearing loss, tinnitus, sore throat, nosebleeds, and rhinorrhea. No dysphagia or odynophagia. Cardiovascular: Negative for persistent palpitations or chest pain. States she does drink coffee and takes Adderall. Sometimes feels that she can't take a deep breath and this causes some panic. States some occasional dyspnea at rest that just goes away. Respiratory: No history of TB exposure. Negative for chronic or productive cough, hemoptysis, or asthma. Non smoker. Lymph/Heme: No history of hematologic malignancies or bleeding disorders. Denies any blood thinner use. Gastrointestinal: Negative for abdominal pain, nausea, vomiting, diarrhea, constipation or changes in bowel habits. Genitourinary: Negative for dysuria or hematuria. No frequency, urgency, or hesitancy. Musculoskeletal: Negative for arthralgias, myalgias, or back pain. Neurological: Negative for dizziness, syncope, focal weakness. In the past one year has been experiencing headaches behind the eyes. OTC analgesics sometimes helpful. Psychiatric: +Attention concerns on Adderall. Some low mood but feels this is stable and denies anysuicidal/homicial ideation. C/o some arm pain and intermittent tremor which she has reported to herP. Endocrine: Negative for polyuria, polydipsia or hot/cold intolerance. Skin: Negative for acute skin lesions. Physical Exam: Vital Signs: BP (!) 162/93 Pulse 86 Temp 98.3 F (36.8 C) Ht 1.321 m (4' 4) Wt 95.3 kg (210lb 1.6 oz) BMI 54.63 kg/m Smoking Status Former , General/Constitutional: Well developed, well nourished female, who looks their stated age of 36 y.o.. No acute distress. HEENT: Head: Normocephalic and atraumatic. Eyes: Pupils are equal, round, and reactive to light andaccomodation. Extraocular movements are intact. Sclerae are anicteric. Neck: Supple, non-tender, with no lymphadenopathy. No jugular venous distension, carotid bruits, or tracheal deviation. Pulmonary/Chest: Respirations regular and easy w/symmetric expansion. No cough noted during interview/exam. Normal effort. Breast/ChestWall: Examined sitting and supine. Breasts appear symmetric, large, ptotic. There are no dominant masses present in either breast. There are no nipple abnormalities or skin changes bilaterally. There is no supraclavicular or axillary adenopathy present. There is no significant left breast pain or tenderness on exam today. She has focal pain of 2-3 cm at 10:00 9-10 cmfn and advises shemay have felt a pea size lump there. Abdominal: Normoactive bowel sounds in all four quadrants. Soft, non-tender, non-distended. No organomegaly. No hepatojugular reflux. No abdominal wall hernias. No guarding, rebound, or CVA tenderness. Extremities: Normal range of motion in all four extremities, with normal strength equally and symmetrically. No cyanosis or clubbing or peripheral edema. Radial pulses easily palpable and regular. Peripheral Vascular Exam: Normal radial, posterior tibialis, and dorsalis pedis arterial pulses. Neurological: Conscious, alert and oriented. Cranial nerves II through XII are intact grossly and symmetrically. No focal neurologic deficit. Skin: Skin is warm and dry. She is not diaphoretic. Psychiatric: Appropiate mood and affect for her clinical situation. Imaging Data: EXAM: MAMMO DIAGNOSTIC WITH MATA BILATERAL, US BREAST LIMITED UNILATERAL RIGHT, 02/15/2022 09:49 AM (accession [id number]), 02/15/2022 09:56 AM (accession [id number]) CLINICAL INDICATIONS: Palpable abnormality 10:00 right breast COMPARISON: No prior studies available for comparison. MAMMOGRAM TECHNIQUE: 2-D MLO and CC views were obtained of the bilateral breasts. 3-D MLO and CC digital tomosynthesis images were also acquired. Computer aided detection was utilized. MAMMOGRAPHIC FINDINGS: The breasts have scattered areas of fibroglandular density. No suspicious masses, suspicious calcifications or areas of distortion identified in either breast. ULTRASOUND TECHNIQUE: Multiple real-time sinclair-scale images of the right breast in the 10 o'clock axis are performed. Color Doppler was used to assess vascular flow. ULTRASOUND FINDINGS: There is no evidence of mass lesions, architectural distortion, or abnormal blood flow. IMPRESSION: Negative bilateral mammogram and negative targeted right breast ultrasound. Clinical follow-up and management of the patient's symptoms recommended BI-RADS: 1: Negative Recommendation: Clinical correlation/management. Recommendation Laterality: Right Impression and Plan: Impression: Ms. Worley is a 36 year old premenopausal woman that presents to the [facility] for evaluation of change in right breast contour (appears flatter), focal non cyclic right breast pain with possibly a pea size lump in the region. She also reports some intermittent right breast warmth. Clinical exam without suspicious findings. I recommended B/L diagnostic mammogram and right breast ultrasound. Plan: I reviewed the findings of today's B/L diagnostic mammogram and right breast ultrasound with Ms. Worley in detail. I advised of the dense tissue and negative findings. Today we reviewed the importance of engaging in self breast awareness. I advised it is important toknow how your breasts normally look and feel so that changes are able to be detected. I recommendedthe patient call for evaluation if a change is seen or felt in either breast. This includes, but isnot limited to: changes to the nipple which includes scaling, discharge, inversion, rashes or sores, signs of breast infection (+/- pain, +/-erythema, +/- excess warmth), new lumps under the arm pit,sudden changes in shape or size of the breast(s), skin irritation to the breast or nipples, dimpling or skin thickening, or darkening of the breasts. Written literature from the [facility] was provided today regarding breast health. Today we discussed cyclical/noncyclical breast pain. I provided reassurance that breast pain is nota common sign of breast cancer and that today's clinical breast exam and breast imaging are withoutsuspicious findings. We reviewed common causes of breast pain. We discussed that chronic breast pain can be a difficult problem to manage and treat, both from theperspective of the patient and from the perspective of the treating provider as often times no clear etiology can be found. We reviewed strategies to mitigate breast pain including obtaining/maintaining a healthy weight which may lower circulating endogeneous estrogen levels thus decreasing chronicbreast pain, elimination/reduction of caffeine, smoking cessation, participation in moderate physical activity, addition of oral Flax Seed 25 grams daily if deemed safe by a healthcare provider, decreasing sodium intake, and decreasing alcohol intake. I encouraged the utilization of a well fitting s upportive bra, such as a sports bra. I advised that utilization of over the counter (OTC) analgesics could be helpful if deemed safe by a healthcare provider. Further, I advised that topical OTC Voltaren Gel 1% could be a helpful analgesic. [facility] patient education literature was provided regarding breast pain (mastalgia). Urged to call for any breast related changes or if the breast pain failed to improve or worsened. Contact information was provided. RTC prn. Orders Placed This Encounter MAMMO DIAGNOSTIC WITH MATA BILATERAL US BREAST LIMITED UNILATERAL RIGHT amphetamine-dextroamphetamine (Adderall) 30 MG tablet Multiple Vitamin (multivitamin) capsule PIOTR Paul, AOCNP Breast Surgical Oncology [facility] P: [phone] documented [facility] this encounter[facility] History of Present illness Narrative* Alicia Adams RN - 02/15/2022 8:00 AM EST Liudmila Worley was offered and declined a Medical Rehabilitation Physician for this exam/procedure/test 02/15/2022. documented in this encounterOS[facility]11-21-2022 Miscellaneous Notes* Telephone Encounter - Aleshia Brito RN - 01/28/2022 3:19 PM EST Patient notified. States that she wishes to go to [facility]. Orders faxed. Aleshia Brito RN * Telephone Encounter - Kayla Ferrer MD - 01/28/2022 2:58 PM EST Yes, I told her at appt today that the wait was probably 4-5 weeks out but that I did not feel anything needed done emergently. I am ok with her waiting. If she desires sooner appt she can go to [facility]. * Telephone Encounter - Aleshia Brito RN - 01/28/2022 2:28 PM EST See below. Patient seen in office today. * Telephone Encounter - Aleshia Rousseau - 01/28/2022 2:19 PM EST Pt called concerned about mammogram appt that is scheduled in the soonest appt available on 03/06/22. She would like to know if that is okay or should she be more concerned. [facility] location is the soonest available anywhere within the system and she is on the waitlist. documented [facility] encounter[facility] Miscellaneous Notes* Telephone Encounter - Annabelle Bolaños LPN - 01/28/2022 2:37 PM EST Patient calling asking that luma diagnostic mamm and ultrasound right breast order be faxed to [facility] to [phone]. Printed orders, face sheet and faxed as requested. documented in this encounterAv[facility]11-21-2022 Instructions* Patient Instructions* Kayla Ferrer MD - 01/28/2022 10:19 AM EST Breast Reconstruction Lobito Ruelas [facility] [phone] [facility] [phone] [phone] [facility]. Robbie Nolen [facility] [phone] Dr. Iron Fernandez [facility] [phone] documented in this encounterAvita [facility]11-21-2022 History of Present illness Narrative* Kayla Ferrer MD - 01/28/2022 10:00 AM EST Rehabilitation Physician offered: Patient declines. Liudmila Worley is a 36 year old female who presents for concerns regarding right breast pain for the last few weeks. Patient states she has noticed heavier feeling in her right breast and more pain on the upper outer quadrant. She denies any masses or skin changes or nipple discharge but statesis just an uncomfortable feeling. She denies any trauma to the area. She also states she notices more varicosities on the right breast. Patient has been interested in a breast reduction but is worried they will tell her that she needs to lose weight prior to having that performed. Patient offers noother concerns at this time today. OB History T3 L3 SAB0 IAB0 Ectopic0 Multiple0 Live Births3 Tobacco Buyer History LMP: 10/11/2021 (Exact Date), Having periods Age at Menarche: Age at First : Age at Menopause: Tobacco Buyer History Comments: Sexual Activity: Yes; Male; bilateral salpingectomy Contraception: Condom, Tubal Ligation PAST MEDICAL HISTORY Diagnosis Date Abnormal Pap smear of cervix 2016 ASCUS pap , negative HPV Adult attention deficit disorder Obesity, unspecified PAST SURGICAL HISTORY Procedure Laterality Date ADENOIDECTOMY PRIMARY <AGE 14 Adenoidectomy PAST SURGICAL HISTORY OF normal vaginal delivery PAST SURGICAL HISTORY OF 10/08/2013 wisdom teeth SALPINGECTOMY Bilateral 11/09/2021 Laparoscopic B/L Salpingectomy at [facility]-Dr. Syed TONSILLECTOMY PRIMARY/SECONDARY <AGE 14 FAMILY HISTORY Problem Relation Age of Onset Arthritis Mother Lipids Mother No Known Problems Father Headache Sister No Known Problems Brother No Known Problems Brother Diabetes Maternal Grandmother Arthritis Maternal Grandmother Heart Maternal Grandmother Hypertension Maternal Grandmother Psychiatry Maternal Grandmother Alcohol/Drug Maternal Grandfather Arthritis Maternal Grandfather Heart Maternal Grandfather Hypertension Maternal Grandfather Diabetes Paternal Grandmother Arthritis Paternal Grandmother No Known Problems Son No Known Problems Other No Known Problems Daughter Social History Tobacco Use Smoking status: Former Types: Cigarettes Quit date: 06/03/2008 Years since quittin.6 Smokeless tobacco: Never Tobacco comments: 2 Cigarettes per week Vaping Use Vaping Use: Never used Substance Use Topics Alcohol use: No Drug use: No Current Outpatient Medications Medication Sig [START ON 03/01/2022] ADDERALL 30 mg tablet Take 1 tablet by mouth twice daily for 14 days. Do not start before March 01, 2022. [START ON 01/30/2022] ADDERALL 30 mg tablet Take 1 tablet by mouth twice daily for 30 days. Do not start before January 30, 2022. Amphetamine-Dextroamphetamine (ADDERALL) 30 mg tablet Take 1 tablet by mouth twice daily for 30 days. No current facility-administered medications for this visit. Allergies As of Date: 01/28/2022 Allergen Noted Reaction SEASONAL ALLERGIES 07/20/2015 Other: See Comments Fully Assessed 10/23/2021 REVIEW OF SYSTEMS Abdomen: no pain Expanded ROS: GENERAL: Negative for fever Allergies and current medication updated:Yes EXAM: BP 154/90 Wt 212 lb (96.2kg) LMP 01/18/2022 GENERAL: pleasant, female in no apparent distress HEENT: Normocephalic, atraumatic, mucus membranes moist, and no lesions NECK: full range of motion, no adenopathy DERMATOLOGY: Normal, without lesions, non-icteric, and non-hirsute BREAST: soft, symmetric, no dominant mass, normal nipple-areolar complex, no lymphadenopathy, no nipple discharge, and tender in right breast. Right breast is slightly larger. Pt examined sitting andsupine. Dermatitis under right breast. NEURO: alert and oriented x3,exam grossly non-focal EXTREMITIES: normal ASSESSMENT AND PLAN: Encounter Diagnosis ICD-10-CM 1. Breast pain N64.4 MATA DIAGNOSTIC BILAT US BREAST LTD RT 2. Large breasts N62 MATA DIAGNOSTIC BILAT US BREAST LTD RT 3. Reviewed breast reduction surgery gave her the names of physicians and numbers to call if interested. Patient does suffer from rashes under her breasts as well as breast indentations from shoulderstraps and neck pain. I spent a total of 20 minutes on the date of the service which included preparing to see the patient, [id number] patient care, completing clinical documentation, obtaining and/or reviewing separately obtained history, performing a medically appropriate examination, counseling and educating the pat ient/family/caregiver, and ordering medications, tests, or procedures Medical Decision Making: Medical Decision Making Level: 1 - N/A Kayla Bustillo MD documented in this encounterAvita [facility]11-08-2022 Miscellaneous Notes* Telephone Encounter - Wendy Obando Ma - 01/15/2022 11:19 AM EST PER LDT: Please make follow up appointments; AM in April any day F2F and VV next Left message for patient to call office documented in this encounterAvita [facility]10-24-2022 Miscellaneous Notes* Telephone Encounter - Mena Vernon MD - 12/31/2021 5:35 PM EDT The following approved medication requests have been transmitted electronically. Requested Prescriptions Signed Prescriptions Disp Refills ADDERALL 30 mg tablet 60 tablet 0 Sig: Take 1 tablet by mouth twice daily for 30 days. Authorizing Provider: MENA VERNON ADDERALL 30 mg tablet 60 tablet 0 Sig: Take 1 tablet by mouth twice daily for 30 days. Do not start before January 30, 2022. Authorizing Provider: MENA VERNON ADDERALL 30 mg tablet 28 tablet 0 Sig: Take 1 tablet by mouth twice daily for 14 days. Do not start before March 01, 2022. Authorizing Provider: MENA VERNON MD * Telephone Encounter - nAnabelle Bolaños LPN - 12/31/2021 4:49 PM EDT [facility] pharmacist from [facility] calling patient is requesting Brand Name Adderall rx please. Patient said her insurance does not cover the XR. Pending brand name for 3 rx, need check the dates.Not sure I completed correctly. [facility] cancelled the other rx that were sent. Please advise Patient has been identified by name and date of : Yes Pharmacy phones for refill(s): Requested Prescriptions Pending Prescriptions Disp Refills ADDERALL 30 mg tablet 30 tablet 0 Sig: Take 1 tablet by mouth once daily for 30 days. ADDERALL 30 mg tablet 30 tablet 0 Sig: Take 1 tablet by mouth once daily for 30 days. Do not start before January 30, 2022. ADDERALL 30 mg tablet 30 tablet 0 Sig: Take 1 tablet by mouth once daily for 30 days. Do not start before March 01, 2022. Date of last office visit in primary care: 10/31/2021 , has appt 04/01/2022 Last 2 Encounter Wt Readings: Date: Wt: 10/23/2021 96.2 kg (212 lb) 09/19/2021 97.1 kg (214 lb) Previous labs/tests for medication: Not applicable Please advise. Thank you. Annabelle Bolaños LPN documented in this encounterAvita [facility]10-24-2022 Miscellaneous Notes* Telephone Encounter - Edelmira Marcial LPN - 12/31/2021 4:34 PM EDT Patient notified that provider sent in regular dose of the adderall to the pharmacy and verbalized understanding. * Telephone Encounter - Mena Vernon MD - 12/31/2021 3:46 PM EDT The following approved medication requests have been transmitted electronically. Requested Prescriptions Signed Prescriptions Disp Refills Amphetamine-Dextroamphetamine (ADDERALL) 30 mg tablet 60 tablet 0 Sig: Take 1 tablet by mouth twice daily for 30 days. Authorizing Provider: MENA VERNON Amphetamine-Dextroamphetamine (ADDERALL) 30 mg tablet 60 tablet 0 Sig: Take 1 tablet by mouth twice daily for 30 days. Do not start before January 30, 2022. Authorizing Provider: MENA VERNON Amphetamine-Dextroamphetamine (ADDERALL) 30 mg tablet 60 tablet 0 Sig: Take 1 tablet by mouth twice daily for 30 days. Do not start before March 01, 2022. Authorizing Provider: MENA VERNON MD * Telephone Encounter - Marcia Pace Pss - 12/31/2021 2:58 PM EDT Patient Liudmila called checking on status of adderall , insurance wont cover XR, need to go back onprevious medication. Please advise, . * Telephone Encounter - Adele Salinas - 12/28/2021 9:14 AM EDT Patient requesting again that the Adderal brand name prescription 30 mg sig 2 x daily be sent to pharmacy instead of the extended release that was sent to pharmacy on 12/26/21. Please contact patientonce the prescription has been sent. documented in this encounterAvita [facility]09-24-2022 Miscellaneous Notes* Telephone Encounter - Ashley Sprague RN - 12/01/2021 10:24 AM EDT Pt called and is notified of providers message and instructions. Pt voices understanding. Ashley Sprague RN * Telephone Encounter - Mena Vernon MD - 12/01/2021 10:12 AM EDT The following approved medication requests have been transmitted electronically. Requested Prescriptions Signed Prescriptions Disp Refills lisdexamfetamine (VYVANSE) 50 mg capsule 30 capsule 0 Sig: Take 1 capsule by mouth once daily for 30 days. Mena Vernon MD Okayed increased dose * Telephone Encounter - Ashley Sprague RN - 12/01/2021 9:20 AM EDT Pt called in asking about if this medication was filled. Provider out of office, sending to [employer] to do on Friday. * Telephone Encounter - Marcia Saravia - 11/30/2021 8:55 AM EDT Patient Liudmila called checking if prescription-lisdexamfetamine (VYVANSE) 40 mg capsule, can be increased to 50 mg. Please advise, . documented in this encounterAvita Health [facility]09-06-2022 History of Present illness Narrative* Jaylan Syed MD - 11/13/2021 12:39 PM EDT Laparoscopic bilateral salpingectomy at [facility] on 11/09/2021 without complication. Jaylan Syed MD documented in this encounterAvita Health System [facility]08-24-2022 History of Present illness Narrative* Mena Vernon MD - 10/31/2021 5:44 PM EDT VIRTUAL VISIT PROGRESS NOTE This is a virtual visit using [employer] video visit. It required patient-provider interaction for themedical decision making as documented below. Liudmila Worley is a 36 year old female seen for Medication check. 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 Panic attack first one at store--kids were with her. [place] warm; SOB, heart racing. happened before appointment today. For a while felt heart still racing and fitness tracker watch showed heart rate could be 100 to 120s. ADHD med needed when works. Memory issues sometimes--feels like so many things going on. Worried about depression meds and potential adverse effects or interaction with ADHD med. Not great experience with counseling before so had not sought counseling--now interested in counseling to help with marriage and raising children, Would like it if went back to work so she could spend more time with the kids. Noted that tries to teach their kids to be grateful for what they have and be content with what they have. She and try to give when they see a need. HISTORY REVIEWED (electronic chart updated): PAST MEDICAL HISTORY Diagnosis Date Abnormal Pap smear of cervix 2015 ASCUS pap , negative HPV Adult attention deficit disorder Obesity, unspecified PAST SURGICAL HISTORY Procedure Laterality Date ADENOIDECTOMY PRIMARY <AGE 14 Adenoidectomy PAST SURGICAL HISTORY OF normal vaginal delivery PAST SURGICAL HISTORY OF 10/2013 wisdom teeth TONSILLECTOMY PRIMARY/SECONDARY <AGE 14 FAMILY HISTORY Problem Relation Age of Onset Arthritis Mother Lipids Mother No Known Problems Father Headache Sister No Known Problems Brother No Known Problems Brother Diabetes Maternal Grandmother Arthritis Maternal Grandmother Heart Maternal Grandmother Hypertension Maternal Grandmother Psychiatry Maternal Grandmother Alcohol/Drug Maternal Grandfather Arthritis Maternal Grandfather Heart Maternal Grandfather Hypertension Maternal Grandfather Diabetes Paternal Grandmother Arthritis Paternal Grandmother No Known Problems Son No Known Problems Other No Known Problems Daughter Social History Tobacco Use Smoking status: Former Types: Cigarettes Quit date: 06/03/2008 Years since quittin.4 Smokeless tobacco: Never Tobacco comments: 2 Cigarettes per week Vaping Use Vaping Use: Never used Substance Use Topics Alcohol use: No Drug use: No Current Outpatient Medications Medication Sig MULTIVITAMIN ORAL Take by mouth. ADDERALL 30 mg tablet Take 1 tablet by mouth twice daily for 30 days. May fill today, October 17, 2021. clindamycin (CLEOCIN-T) 1 % gel Apply to affected area twice daily. (Patient not taking: No sig reported) No current facility-administered medications for this visit. ALLERGIES Allergen Reactions Seasonal Allergies Other: See Comments REVIEW OF SYSTEMS: As noted in HPI PHYSICAL EXAMINATION: Last 5 Encounter Pulse Readings: Date: Pulse: 10/23/2021 96 07/31/2021 70 12/06/2020 86 09/08/2017 92 06/13/2017 96 VIDEO EXAM: (if completed, performed via video enabled technology) GENERAL: alert and appropriate, in no distress, well-hydrated, well nourished, overweight, and initially was teary, then anxious and depressed but affect was normal reactive. HEAD: normocephalic, no abnormality or lesion noted EYES: no injection and visual acuity is grossly normal RESPIRATORY: breathing non-labored ASSESSMENT/PLAN: 1. Attention deficit hyperactivity disorder (ADHD), unspecified ADHD type - ICD9: 314.01, ICD10: F90.9 (primary diagnosis) Will try Vyvanse at higher dose since already on higher dose of Adderall. Discussed that dose range goes up to 70 mg. - LISDEXAMFETAMINE 40 MG CAPSULE 2. Anxiety and depression - ICD9: 300.00, 311, ICD10: F41.9, F32.A Plans to see counselor Emotional support given. Encouraged to find support system. Family not helpful (discussed issues). Consider meds. Also consider referral to Jennifer Rangel to help with meds to help for depression andanxiety and maybe ADHD if needed then back to me for management. Work on dealing with frustrations--not being able to spend more time with family/kids, not able to take a break from work for long, etc. 3. Obesity--discussed setting SMART goals to help with weight loss to help with setting goals to exercise routinely as well as make healthy diet changes. Has treadmill by her work desk. Mena Vernon MD There are no Patient Instructions on file for this visit. I spent a total of at least 99 minutes on the date of the service which included preparing to see the patient, [id number] patient care, completing clinical documentation, counseling and educating the patient/family/caregiver, and ordering medications, tests, or procedures Mena Vernon MD documented in this encounterAvita Health System [facility]08-16-2022 History and physical note * Jaylan Syed MD - 10/23/2021 11:01 AM EDT Pre-Op History and Physical HPI: The patient is a 36 year old female presenting for pre-operative visit. She is scheduled for Laparoscopic bilateral salpingectomy, for sterilization on 11/09/21. Procedure discussed along with risks, benefits and complications. Other alternatives discussed for management. Consent form signed? Yes. PAST MEDICAL HISTORY Diagnosis Date Abnormal Pap smear of cervix 2015 ASCUS pap , negative HPV Adult attention deficit disorder Obesity, unspecified PAST SURGICAL HISTORY Procedure Laterality Date ADENOIDECTOMY PRIMARY <AGE 14 Adenoidectomy PAST SURGICAL HISTORY OF normal vaginal delivery PAST SURGICAL HISTORY OF 10/2013 wisdom teeth TONSILLECTOMY PRIMARY/SECONDARY <AGE 14 Current Outpatient Medications Medication Sig Dispense Refill MULTIVITAMIN ORAL Take by mouth. ADDERALL 30 mg tablet Take 1 tablet by mouth twice daily for 30 days. May fill today, October 17, 2021. 60 tablet 0 clindamycin (CLEOCIN-T) 1 % gel Apply to affected area twice daily. (Patient not taking: No sig reported) 30 g 0 No current facility-administered medications for this visit. ALLERGIES: Seasonal Allergies PERSONAL HISTORY: Social History Tobacco Use Smoking status: Former Types: Cigarettes Quit date: 06/03/2008 Years since quittin.3 Smokeless tobacco: Never Tobacco comments: 2 Cigarettes per week Vaping Use Vaping Use: Never used Substance Use Topics Alcohol use: No Drug use: No FAMILY HISTORY: FAMILY HISTORY Problem Relation Age of Onset Arthritis Mother Lipids Mother No Known Problems Father Headache Sister No Known Problems Brother No Known Problems Brother Diabetes Maternal Grandmother Arthritis Maternal Grandmother Heart Maternal Grandmother Hypertension Maternal Grandmother Psychiatry Maternal Grandmother Alcohol/Drug Maternal Grandfather Arthritis Maternal Grandfather Heart Maternal Grandfather Hypertension Maternal Grandfather Diabetes Paternal Grandmother Arthritis Paternal Grandmother No Known Problems Son No Known Problems Other No Known Problems Daughter REVIEW OF SYMPTOMS: GENERAL: denies fevers or chills ENDOCRINOLOGY: has not been on steroids Cardiology : denies palpitations or chest pain Respiratory: denies SOB or cough Hematology: denies history of prolonged bleeding or easy bruising or VTE Allergy: Denies history of personal or family history of allergy to anesthesia PHYSICAL EXAMINATION: VITALS: Last menstrual period 09/13/2021. GENERAL: The patient is well nourished, well hydrated in no acute distress. , The patient is oriented to time, place, and person. NECK: Supple. No lynphadenopathy, normal thyroid, no thyromegaly. LUNGS: Clear to auscultation bilaterally. no wheezes, rhonchi or rales HEART: Regular rate and rhythm, Normal heart sounds, and No murmurs or gallops IMPRESSION: sterilization request PLAN: The risks/benefits/alternatives and personal involved for the planned laparoscopic bilateral salpingectomy were reviewed with the patient. Her questions were answered to her satisfaction and she desires to proceed. Consent was signed. I reviewed with her postop instructions and expectations. Risks, benefits and alternatives to sterilization have been discussed with the patient. She declines reversible options including LARC. She understands sterilization is permanent, irreversible, risksof failure, regret and ectopic. In addition she understands there are surgical risks as well. Her questions were answered to her satisfaction and consent was signed I have reviewed and updated past medical and surgical history, medications and allergies Jaylan Syed M.D. documented in this encounterAvita Health [facility]08-11-2022 Miscellaneous Notes* Telephone Encounter - Leyla Hussein LPN - 10/18/2021 12:08 PM EDT No return call from pt. My chart message sent. * Telephone Encounter - Wendy Obando Ma - 10/17/2021 10:11 AM EDT Left message for patient to call office * Telephone Encounter - Mena Vernon MD - 10/17/2021 1:21 AM EDT Below noted Just saw note today. Should be able to fill a couple days early. Make sure to take precautions with pills since insurance and pharmacy often will not fill controlled medication prescription early more than once in a year and medicine institute guidelines to avoid early refills.. The following approved medication requests have been transmitted electronically. Requested Prescriptions Signed Prescriptions Disp Refills ADDERALL 30 mg tablet 60 tablet 0 Sig: Take 1 tablet by mouth twice daily for 30 days. May fill today, October 17, 2021. Authorizing Provider: MENA VERNON MD * Telephone Encounter - Brianna Connlely - 10/12/2021 11:04 AM EDT Liudmila Worley is calling Mena Vernon MD today requesting an early refill of her Adderall medication. Patient accidentally dropped her medicine in the sink. She was only able to save two pills. Pharmacy said she is not due for refill until 10/19 and would need call from PCP to allow early fill. Please advise and return her call. [facility] Pharmacy documented in this encounterAvita Health [facility]08-03-2022 Instructions* Patient Instructions* Anna Nieto Ma - 10/10/2021 11:08 AM EDT YOUR RECOVERY After your biopsy you may have: Vaginal bleeding (less than a normal menstrual period) Mild cramping Do NOT put anything in the vagina for 1 week after your endometrial biopsy. This includes: tampons douches and refraining from having sexual intercourse If you have any discomfort, you may take an over the counter pain medication (motrin, advil, ibuprofen, tylenol, etc). If this does not relieve your discomfort, contact the office. It is okay to wear a sanitary pad until the discharge and spotting stops. RISKS Although problems seldom occur with endometrial biopsies, there can be some complications. You may feel faint during and shortly after the procedure as well as have some bleeding after the procedure.There is also a risk of infection after the procedure. These complications are rare and can be easily treated. You should contact you doctor is you have any of the following: Heavy bleeding (more than your normal period) Bleeding with clots Severe abdominal pain Fever (more than 100.4F) Foul smelling vaginal discharge RESULTS We will have the results of your biopsy in 1-2 weeks. If you do not hear the results of your biopsyafter 2 weeks, please contact the office for the results. If you have any additional questions or concerns please do not hesitate to contact the office. documented in this encounterAvita Health [facility]08-03-2022 History of Present illness Narrative* Jaylan Syed MD - 10/10/2021 11:06 AM EDT Liudmila is a 36 year old Female who presents today for an endometrial biopsy for abnormal uterine bleeding. test: negative UNIVERSAL PROTOCOL / SAFETY CHECKLIST Procedure to be Performed: EMB Sign In: A Moment of CARE was completed. Personnel directly involved with the procedure wore the appropriate PPE (Personal Protective Equipment). Patient/Surrogate Stated/Verified: PATIENT VERIFIED(optional for EMERGENT procedures): Patient name, Date of , Relevant allergies and The intended procedure Time Out Communication: Intended patient and procedure match the source documents. Consent documented and matches the intended procedure. No implant(s) inserted. Sign Out: SIGN OUT (optional for EMERGENT procedures): All specimen containers correctly labeled. All instruments, equipment, possible retained foreign bodies accounted for. Post-procedure follow-up management communicated and Plan of Care Visit completed when applicable. Jaylan Syed M.D. PROCEDURE: EXTERNAL GENITALIA: Normal in appearance without lesions VAGINA: Normal in appearance without lesions BIOPSY: Speculum placed into the vagina with excellent visualization of the cervix. Cervix cleaned with betadine. Anterior lip of cervix grasped with single toothed tenaculum. Uterus sounded to 8 cm.Pipelle inserted into the uterus without difficulty and endometrial biopsy obtained. Specimen labeled and sent to pathology. Procedure Summary: Patient tolerated procedure well. ASSESSMENT: abnormal uterine bleeding PLAN: Specimens labeled and sent to Pathology. Will notify patient of results in 1-2 weeks. Post-procedure instructions reviewed and written material given to the patient. IF benign prefers to monitor for now. D/ wher options including lysteda. Plans tubal for contraception Jaylan Syed MD documented in this encounterAvita Health [facility]07-13-2022 History of Present illness Narrative* Jaylan Syed MD - 09/19/2021 9:10 AM EDT Liudmila is a 36 year old who presents for an annual gynecologic exam with complaints, heavier menses over past few years. Menses: cycles every 28 -30days and 3-4 days of flow. Contraception: condoms HPV vaccine: No Last Pap: 07/10/2020 normal HPV: 07/08/2020 negative History of abnormal pap: No Last mammogram: never Sexually active: Yes, no pain or discomfort OB History T3 L3 SAB0 IAB0 Ectopic0 Multiple0 Live Births3 Tobacco Buyer History LMP: 09/13/2021 (Exact Date), Having periods Age at Menarche: Age at First : Age at Menopause: Tobacco Buyer History Comments: Sexual Activity: Yes; Male Contraception: Condom PAST MEDICAL HISTORY Diagnosis Date Abnormal Pap smear of cervix 2015 ASCUS pap , negative HPV Adult attention deficit disorder Obesity, unspecified PAST SURGICAL HISTORY Procedure Laterality Date ADENOIDECTOMY PRIMARY <AGE 14 Adenoidectomy PAST SURGICAL HISTORY OF normal vaginal delivery PAST SURGICAL HISTORY OF 10/2013 wisdom teeth TONSILLECTOMY PRIMARY/SECONDARY <AGE 14 FAMILY HISTORY Problem Relation Age of Onset Arthritis Mother Lipids Mother No Known Problems Father Headache Sister No Known Problems Brother No Known Problems Brother Diabetes Maternal Grandmother Arthritis Maternal Grandmother Heart Maternal Grandmother Hypertension Maternal Grandmother Psychiatry Maternal Grandmother Alcohol/Drug Maternal Grandfather Arthritis Maternal Grandfather Heart Maternal Grandfather Hypertension Maternal Grandfather Diabetes Paternal Grandmother Arthritis Paternal Grandmother No Known Problems Son No Known Problems Other No Known Problems Daughter SOCIAL HISTORY Social History Tobacco Use Smoking status: Former Smoker Types: Cigarettes Quit date: 06/03/2008 Years since quittin.3 Smokeless tobacco: Never Used Tobacco comment: 2 Cigarettes per week Vaping Use Vaping Use: Never used Substance Use Topics Alcohol use: No Drug use: No REVIEW OF SYSTEMS Abdomen: No abdominal pain, nausea, vomiting, diarrhea, or constipation. No bloating, early satiety, indigestion, or increased flatulence. Bladder: No dysuria, gross hematuria, urinary frequency, urinary urgency, or incontinence. Breast: No breast lumps, nipple d/c, overlying skin changes, redness or skin retraction. Allergies and current medication updated:Yes EXAM: BP 148/96 Ht 5' 3 (1.60m) Wt 214 lb (97.1kg) LMP 09/13/2021 BMI 37.92 kg/(m^2). GENERAL: pleasant, female in no apparent distress HEENT: Normocephalic, atraumatic, mucus membranes moist and no lesions NECK: Supple, full range of motion, no adenopathy and thyroid normal DERMATOLOGY: Normal, without lesions, non-icteric and non-hirsute BREAST: soft, non-tender, symmetric, no dominant mass, normal nipple-areolar complex, no lymphadenopathy and no nipple discharge CHEST: Normal inspiratory effort ABDOMEN: soft, non-tender and no masses PELVIC: external genitalia normal, normal Bartholin's glands, urethra, Friedenswald's glands, no vulvar lesions, no cervical lesions, good vaginal support, physiologic discharge present, normal appearing perineal body and perianal region BIMANUAL: uterus normal size, shape and consistency, no adnexal masses and non-tender RECTOVAGINAL: deferred. NEURO: alert and oriented x3,exam grossly non-focal EXTREMITIES: normal ASSESSMENT/PLAN: 1) Health maintenance: Pap/HPV up to date. 2) Contraception: condoms. Contraceptive options reviewed and information provided. 3) STD screening: Declined STD check. 4) Follow up one year or sooner as needed Heavy menstrual bleeding, labs, US and EMB. Had mirena in the past, one dislodged. Didn't really like it but did help menses. Risks, benefits and alternatives to sterilization have been discussed with the patient. She declines reversible options including LARC. She understands sterilization is permanent, irreversible, risksof failure, regret and ectopic. In addition she understands there are surgical risks as well. Her questions were answered to her satisfaction and consent was signed Jaylan Syed MD documented in this encounterAvita Health [facility]06-09-2022 Miscellaneous Notes* Telephone Encounter - Leyla Hussein LPN - 08/16/2021 2:02 PM EDT Message left to pt with info. Recommended she call back if she needs anything else. * Telephone Encounter - Mena Vernon MD - 2021 7:00 PM EDT The following approved medication requests have been transmitted electronically. Signed Prescriptions Disp Refills ADDERALL 30 mg tablet 60 tablet 0 Sig: Take 1 tablet by mouth twice daily for 30 days. AMANDA Class: C-II CHAZ: Yes Authorizing Provider: MENA VERNON ADDERALL 30 mg tablet 60 tablet 0 Sig: Take 1 tablet by mouth twice daily for 30 days. Do not start before September 14, 2021. AMANDA Class: C-II CHAZ: Yes Authorizing Provider: MENA VERNON ADDERALL 30 mg tablet 60 tablet 0 Sig: Take 1 tablet by mouth twice daily for 30 days. Do not start before October 14, 2021. AMANDA Class: C-II CHAZ: Yes Authorizing Provider: MENA VERNON MD Below noted RE: insurance issue See if still needs me to try to call her about other issues. * Telephone Encounter - Kelly Bush LPN - 2021 4:22 PM EDT Pt called back and states she wants to stay with the Adderall. She picked up the 1st prescription for Vyvanse and her insurance is going to be a problem per pt. So pt states just want to go back to the Adderall. Kelly Bush LPN * Telephone Encounter - Kelly Bush LPN - 2021 8:35 AM EDT Left a message for pt to call the office and ask to speak to a triage nurse. Kelly Bush LPN * Telephone Encounter - Mena Vernon MD - 2021 12:59 AM EDT Is patient wanting to go back to Adderall instead of titrating up the Vyvanse? documented in this encounterAvita Health [facility]06-02-2022 Miscellaneous Notes* Telephone Encounter - Leyla Hussein LPN - 08/09/2021 11:39 AM EDT My chart message to pt to arrange appt or come to urgent care. * Telephone Encounter - Marcia Pace Pss - 08/09/2021 10:39 AM EDT Patient Liudmila hoyos, she had a sore throat few days ago, now has a barky cough with green phlegm. Please advise if an inhaler can be prescribed, ok to leave VM (since at work) or message on my chart. documented in this encounterAvita Health System [facility]05-24-2022 History of Present illness Narrative* Mena Vernon MD - 07/31/2021 11:02 AM EDT This note was created using [employer]. Subjective Liudmila Worley is a 35 year old female. Patient presents with: Follow Up SUBJECTIVE: Liudmila Worley is a 35 year old year old lady here today for follow up appointment for review of medical conditions. Brand name Adderall does not seem as effective as the generic but would keep getting wrong effective one. Noted second pill that does not last long enough. Needs to last longer for her longer work shift. 6:30 AM first dose Second dose 1 to 1:30. End of work day is 6:30--med lasts to about 4:30. Melencrot not effective. Teva at [facility]--this was fine. Issues with shortages so went to namebrand. Wondered about extended release. Noted works from home. Hand with left thumb sometimes like no control. Video showed that thumb tremors but fingers also with tremor. Can last a few minutes. Stretching hand does not help. Lasted 15 minutes the day did the video. Hadnot eaten yet. No coffee yet. No specific time of day. Eye twitches sometimes. Lateral corner of right eye. Does not bother her too much but seems to be happening more, Started using eye drops. Noted found benign fasciculation syndrome info. ER labs reviewed--all fine. Acne ?Hormones--after period maybe. Was 2 weeks ago. Stressors noted. Not enough motivation to exercise. Issues with depression too but not able to discuss with son present at appointment. Decided to try to work on above issues and try to touch base another time to discuss depression symptoms. PAST MEDICAL HISTORY Diagnosis Date Abnormal Pap smear of cervix 2016 ASCUS pap , negative HPV Adult attention deficit disorder Obesity, unspecified Current Outpatient Medications Medication Sig ADDERALL 30 mg tablet Take 1 tablet by mouth twice daily for 30 days. Do not start before July 24, 2021. ADDERALL 30 mg tablet Take 1 tablet by mouth twice daily for 30 days. Do not start before May. ADDERALL 30 mg tablet Take 1 tablet by mouth twice daily for 30 days. Do not start before June. clindamycin (CLEOCIN-T) 1 % gel Apply to affected area twice daily. (Patient not taking: Reported on 07/31/2021 ) ADDERALL 30 mg tablet Take 1 tablet by mouth twice daily for 30 days. Do not start before April 25, 2021. No current facility-administered medications for this visit. Objective BP 142/90 Pulse 70 LMP 06/28/2020 (Exact Date) Last 5 Encounter Wt Readings: Date: Wt: 12/06/2020 93 kg (205 lb) 07/04/2020 95.3 kg (210 lb) 10/15/2019 101.6 kg (224 lb) 03/31/2019 107 kg (236 lb) 03/01/2019 106.1 kg (234 lb) No waist measurement recorded Estimated body mass index is 36.31 kg/m as calculated from the following: Height as of 10/12/18: 160 cm (5' 3). Weight as of 12/06/20: 93 kg (205 lb). Last 5 Encounter BP Readings: Date: BP: 07/31/2021 142/90 12/06/2020 122/82 10/15/2019 132/82 03/31/2019 122/80 03/01/2019 118/78 Physical Exam Constitutional: Appearance: Normal appearance. She is obese. HENT: Head: Normocephalic. Eyes: Conjunctiva/sclera: Conjunctivae normal. Cardiovascular: Rate and Rhythm: Normal rate and regular rhythm. Heart sounds: Normal heart sounds. Pulmonary: Effort: Pulmonary effort is normal. Breath sounds: Normal breath sounds. Skin: General: Skin is warm and dry. Neurological: General: No focal deficit present. Mental Status: She is alert and oriented to person, place, and time. Psychiatric: Attention and Perception: Attention and perception normal. Mood and Affect: Affect normal. Mood is depressed. Speech: Speech normal. Behavior: Behavior normal. Thought Content: Thought content normal. Judgment: Judgment normal. Assessment and Plan ASSESSMENT/PLAN: 1. Attention deficit hyperactivity disorder (ADHD), unspecified ADHD type - ICD9: 314.01, ICD10: F90.9 (primary diagnosis) Will adjust meds as discussed. Further evaluation and treatment as indicated. - LISDEXAMFETAMINE 10 MG CAPSULE - LISDEXAMFETAMINE 30 MG CAPSULE 2. Tremor - ICD9: 781.0, ICD10: R25.1 Monitor for now. Try stretching exercises. Stay hydrated. Further evaluation and treatment as indicated. 3. Eyelid twitch - ICD9: 781.0, ICD10: R25.3 As noted above. Eye strain and fatigue can contribute. Rest eyes as able. Might need dry eye drops. Further evaluation and treatment as indicated. 4. Acne vulgaris - ICD9: 706.1, ICD10: L70.0 Discussed management. Masks can contribute. Further evaluation and treatment as indicated. 5. Class 2 obesity due to excess calories with body mass index (BMI) of 37.0 to 37.9 in adult, unspecified whether serious comorbidity present - ICD9: 278.00, V85.37, ICD10: E66.09, Z68.37 Weight increasing - Behavioral intervention Needs to keep working on diet and exercise with lifestyle changes for effective weight loss as wellas prevention of DM, and control of BP and lipids. I spent a total of at least 44 minutes on the date of the service which included preparing to see the patient, [id number] patient care, completing clinical documentation, obtaining and/or reviewingseparately obtained history, performing a medically appropriate examination, counseling and educating the patient/family/caregiver and ordering medications, tests, or procedures. Mena Vernon MD [facility] History of Past illness Narrative* Problem Noted Date Resolved Date Sterilization 11/11/2018 05/29/2020 Overview: November 11, 2018 Risks, benefits and alternatives to sterilization have been discussed with the patient. She declines reversible options including LARC. She understands sterilization is permanent, irreversible, risks of failure, regret and ectopic. In addition she understands there are surgical risks as well. Her questions were answered to her satisfaction and consent was signed. Jaylan Syed MD Elevated blood pressure affe cting in third trimester, antepartum 04/18/2016 05/21/2016 Overview: Mild elevated asymptomatic- check labs today and 24 urine, come back for bp check tomorrow. If still elevated or labs abnormal recommend IOL 37 weeks Yadi Howard MD Group B Streptococcus urinar y tract infection affecting in first trimester 10/16/2015 05/21/2016 Overview: 11/14/15: Urine culture contaminated, repeat at next visit. 10/16/15 Repeat urine culture 4 weeks Obesity in 09/28/2015 05/21/2016 Overview: 06/04/2018Patient is obese. Will plan on GCT@ NOB. TKRN Urinary incontinence 12/10/2012 10/13/2015 Supervision of other high risk pregnancies, firs t trimester 02/19/2010 01/29/2019 Supervision of normal first 01/12/2010 02/19/2010 Threatened , antepartum 01/12/2010 08/26/2010 Abdominal pain, epigastric 01/12/201003/24 Diarrhea 01/12/2010 03/24/2013 documented as of this encounter (statuses as of 08/09/2021) [facility] History of Past illness Narrative* Problem Noted Date Resolved Date Sterilization 11/11/2018 05/29/2020 Overview: November 11, 2018 Risks, benefits and alternatives to sterilization have been discussed with the patient. She declines reversible options including LARC. She understands sterilization is permanent, irreversible, risks of failure, regret and ectopic. In addition she understands there are surgical risks as well. Her questions were answered to her satisfaction and consent was signed. Jaylan Syed MD Elevated blood pressure affe cting in third trimester, antepartum 04/18/2016 05/21/2016 Overview: Mild elevated asymptomatic- check labs today and 24 urine, come back for bp check tomorrow. If still elevated or labs abnormal recommend IOL 37 weeks Yadi Howard MD Group B Streptococcus urinar y tract infection affecting in first trimester 10/16/2015 05/21/2016 Overview: 11/14/15: Urine culture contaminated, repeat at next visit. MH 10/16/15 Repeat urine culture 4 weeks MH Obesity in 09/28/2015 05/21/2016 Overview: 06/04/2018Patient is obese. Will plan on GCT@ NOB. TKRN Urinary incontinence 12/10/2012 10/13/2015 Supervision of other high risk pregnancies, firs t trimester 02/19/2010 01/29/2019 Supervision of normal first 01/12/2010 02/19/2010 Threatened , antepartum 01/12/2010 08/26/2010 Abdominal pain, epigastric 01/12/201003/24 Diarrhea 01/12/2010 03/24/2013 documented as of this encounter (statuses as of 08/16/2021) [facility] History of Past illness Narrative* Problem Noted Date Resolved Date Sterilization 11/11/2018 05/29/2020 Overview: November 11, 2018 Risks, benefits and alternatives to sterilization have been discussed with the patient. She declines reversible options including LARC. She understands sterilization is permanent, irreversible, risks of failure, regret and ectopic. In addition she understands there are surgical risks as well. Her questions were answered to her satisfaction and consent was signed. Jaylan Syed MD Elevated blood pressure affe cting in third trimester, antepartum 04/18/2016 05/21/2016 Overview: Mild elevated asymptomatic- check labs today and 24 urine, come back for bp check tomorrow. If still elevated or labs abnormal recommend IOL 37 weeks Yadi Howard MD Group B Streptococcus urinar y tract infection affecting in first trimester 10/16/2015 05/21/2016 Overview: 11/14/15: Urine culture contaminated, repeat at next visit. MH 10/16/15 Repeat urine culture 4 weeks Obesity in 09/28/2015 05/21/2016 Overview: 06/04/2018Patient is obese. Will plan on GCT@ NOB. TKRN Urinary incontinence 12/10/2012 10/13/2015 Supervision of other high risk pregnancies, firs t trimester 02/19/2010 01/29/2019 Supervision of normal first 01/12/2010 02/19/2010 Threatened , antepartum 01/12/2010 08/26/2010 Abdominal pain, epigastric 01/12/201003/24 Diarrhea 01/12/2010 03/24/2013 documented as of this encounter (statuses as of 09/19/2021) [facility] of Past illness Narrative* Problem Noted Date Resolved Date Sterilization 11/11/2018 05/29/2020 Overview: November 11, 2018 Risks, benefits and alternatives to sterilization have been discussed with the patient. She declines reversible options including LARC. She understands sterilization is permanent, irreversible, risks of failure, regret and ectopic. In addition she understands there are surgical risks as well. Her questions were answered to her satisfaction and consent was signed. Jaylan Syed MD Elevated blood pressure affe cting in third trimester, antepartum 04/18/2016 05/21/2016 Overview: Mild elevated asymptomatic- check labs today and 24 urine, come back for bp check tomorrow. If still elevated or labs abnormal recommend IOL 37 weeks Yadi Howard MD Group B Streptococcus urinar y tract infection affecting in first trimester 10/16/2015 05/21/2016 Overview: 11/14/15: Urine culture contaminated, repeat at next visit. MH 10/16/15 Repeat urine culture 4 weeks MH Obesity in 09/28/2015 05/21/2016 Overview: 06/04/2018Patient is obese. Will plan on GCT@ NOB. TKRN Urinary incontinence 12/10/2012 10/13/2015 Supervision of other high risk pregnancies, firs t trimester 02/19/2010 01/29/2019 Supervision of normal first 01/12/2010 02/19/2010 Threatened , antepartum 01/12/2010 08/26/2010 Abdominal pain, epigastric 01/12/201003/24 Diarrhea 01/12/2010 03/24/2013 documented as of this encounter (statuses as of 09/28/2021) [facility] History of Past illness Narrative* Problem Noted Date Resolved Date Sterilization 11/11/2018 05/29/2020 Overview: November 11, 2018 Risks, benefits and alternatives to sterilization have been discussed with the patient. She declines reversible options including LARC. She understands sterilization is permanent, irreversible, risks of failure, regret and ectopic. In addition she understands there are surgical risks as well. Her questions were answered to her satisfaction and consent was signed. Jaylan Syed MD Elevated blood pressure affe cting in third trimester, antepartum 04/18/2016 05/21/2016 Overview: Mild elevated asymptomatic- check labs today and 24 urine, come back for bp check tomorrow. If still elevated or labs abnormal recommend IOL 37 weeks Yadi Howard MD Group B Streptococcus urinar y tract infection affecting in first trimester 10/16/2015 05/21/2016 Overview: 11/14/15: Urine culture contaminated, repeat at next visit. MH 10/16/15 Repeat urine culture 4 weeks MH Obesity in 09/28/2015 05/21/2016 Overview: 06/04/2018Patient is obese. Will plan on GCT@ NOB. TKRN Atypical squamous cells of u ndetermined significance (ASCUS) on Papanicolaou smear of cervix 08/08/2015 10/10/2021 Overview: August 08, 2015 neg HRHPV.; Jaylan Syed MD Urinary incontinence 12/10/2012 10/13/2015 Supervision of other high risk pregnancies, firs t trimester 02/19/2010 01/29/2019 Supervision of normal first 01/12/2010 02/19/2010 Threatened , antepartum 01/12/2010 08/26/2010 Abdominal pain, epigastric 01/12/201003/24 Diarrhea 01/12/2010 03/24/2013 documented as of this encounter (statuses as of 10/10/2021) [facility] History of Past illness Narrative* Problem Noted Date Resolved Date Sterilization 11/11/2018 05/29/2020 Overview: November 11, 2018 Risks, benefits and alternatives to sterilization have been discussed with the patient. She declines reversible options including LARC. She understands sterilization is permanent, irreversible, risks of failure, regret and ectopic. In addition she understands there are surgical risks as well. Her questions were answered to her satisfaction and consent was signed. Jaylan Syed MD Elevated blood pressure affe cting in third trimester, antepartum 04/18/2016 05/21/2016 Overview: Mild elevated asymptomatic- check labs today and 24 urine, come back for bp check tomorrow. If still elevated or labs abnormal recommend IOL 37 weeks Yadi Howard MD Group B Streptococcus urinar y tract infection affecting in first trimester 10/16/2015 05/21/2016 Overview: 11/14/15: Urine culture contaminated, repeat at next visit. 10/16/15 Repeat urine culture 4 weeks MH Obesity in 09/28/2015 05/21/2016 Overview: 06/04/2018Patient is obese. Will plan on GCT@ NOB. TKRN Atypical squamous cells of u ndetermined significance (ASCUS) on Papanicolaou smear of cervix 08/08/2015 10/10/2021 Overview: August 08, 2015 neg HRHPV.; Jaylan Syed MD Urinary incontinence 12/10/2012 10/13/2015 Supervision of other high risk pregnancies, firs t trimester 02/19/2010 01/29/2019 Supervision of normal first 01/12/2010 02/19/2010 Threatened , antepartum 01/12/2010 08/26/2010 Abdominal pain, epigastric 01/12/201003/24 Diarrhea 01/12/2010 03/24/2013 documented as of this encounter (statuses as of 10/10/2021) [facility] of Past illness Narrative* Problem Noted Date Resolved Date Sterilization 11/11/2018 05/29/2020 Overview: November 11, 2018 Risks, benefits and alternatives to sterilization have been discussed with the patient. She declines reversible options including LARC. She understands sterilization is permanent, irreversible, risks of failure, regret and ectopic. In addition she understands there are surgical risks as well. Her questions were answered to her satisfaction and consent was signed. Jaylan Syed MD Elevated blood pressure affe cting in third trimester, antepartum 04/18/2016 05/21/2016 Overview: Mild elevated asymptomatic- check labs today and 24 urine, come back for bp check tomorrow. If still elevated or labs abnormal recommend IOL 37 weeks Yadi Howard MD Group B Streptococcus urinar y tract infection affecting in first trimester 10/16/2015 05/21/2016 Overview: 11/14/15: Urine culture contaminated, repeat at next visit. MH 10/16/15 Repeat urine culture 4 weeks MH Obesity in 09/28/2015 05/21/2016 Overview: 06/04/2018Patient is obese. Will plan on GCT@ NOB. TKRN Atypical squamous cells of u ndetermined significance (ASCUS) on Papanicolaou smear of cervix 08/08/2015 10/10/2021 Overview: August 08, 2015 neg HRHPV.; Jaylan Syed MD Urinary incontinence 12/10/2012 10/13/2015 Supervision of other high risk pregnancies, firs t trimester 02/19/2010 01/29/2019 Supervision of normal first 01/12/2010 02/19/2010 Threatened , antepartum 01/12/2010 08/26/2010 Abdominal pain, epigastric 01/12/201003/24 Diarrhea 01/12/2010 03/24/2013 documented as of this encounter (statuses as of 10/18/2021) [facility] of Past illness Narrative* Problem Noted Date Resolved Date Sterilization 11/11/2018 05/29/2020 Overview: November 11, 2018 Risks, benefits and alternatives to sterilization have been discussed with the patient. She declines reversible options including LARC. She understands sterilization is permanent, irreversible, risks of failure, regret and ectopic. In addition she understands there are surgical risks as well. Her questions were answered to her satisfaction and consent was signed. Jaylan Syed MD Elevated blood pressure affe cting in third trimester, antepartum 04/18/2016 05/21/2016 Overview: Mild elevated asymptomatic- check labs today and 24 urine, come back for bp check tomorrow. If still elevated or labs abnormal recommend IOL 37 weeks Yadi Howard MD Group B Streptococcus urinar y tract infection affecting in first trimester 10/16/2015 05/21/2016 Overview: 11/14/15: Urine culture contaminated, repeat at next visit. 10/16/15 Repeat urine culture 4 weeks MH Obesity in 09/28/2015 05/21/2016 Overview: 06/04/2018Patient is obese. Will plan on GCT@ NOB. TKRN Atypical squamous cells of u ndetermined significance (ASCUS) on Papanicolaou smear of cervix 08/08/2015 10/10/2021 Overview: August 08, 2015 neg HRHPV.; Jaylan Syed MD Urinary incontinence 12/10/2012 10/13/2015 Supervision of other high risk pregnancies, firs t trimester 02/19/2010 01/29/2019 Supervision of normal first 01/12/2010 02/19/2010 Threatened , antepartum 01/12/2010 08/26/2010 Abdominal pain, epigastric 01/12/201003/24 Diarrhea 01/12/2010 03/24/2013 documented as of this encounter (statuses as of 10/23/2021) [facility] of Past illness Narrative* Problem Noted Date Resolved Date Sterilization 11/11/2018 05/29/2020 Overview: November 11, 2018 Risks, benefits and alternatives to sterilization have been discussed with the patient. She declines reversible options including LARC. She understands sterilization is permanent, irreversible, risks of failure, regret and ectopic. In addition she understands there are surgical risks as well. Her questions were answered to her satisfaction and consent was signed. Jaylan Syed MD Elevated blood pressure affe cting in third trimester, antepartum 04/18/2016 05/21/2016 Overview: Mild elevated asymptomatic- check labs today and 24 urine, come back for bp check tomorrow. If still elevated or labs abnormal recommend IOL 37 weeks Yadi Howard MD Group B Streptococcus urinar y tract infection affecting in first trimester 10/16/2015 05/21/2016 Overview: 11/14/15: Urine culture contaminated, repeat at next visit. 10/16/15 Repeat urine culture 4 weeks MH Obesity in 09/28/2015 05/21/2016 Overview: 06/04/2018Patient is obese. Will plan on GCT@ NOB. TKRN Atypical squamous cells of u ndetermined significance (ASCUS) on Papanicolaou smear of cervix 08/08/2015 10/10/2021 Overview: August 08, 2015 neg HRHPV.; Jaylan Syed MD Urinary incontinence 12/10/2012 10/13/2015 Supervision of other high risk pregnancies, firs t trimester 02/19/2010 01/29/2019 Supervision of normal first 01/12/2010 02/19/2010 Threatened , antepartum 01/12/2010 08/26/2010 Abdominal pain, epigastric 01/12/201003/24 Diarrhea 01/12/2010 03/24/2013 documented as of this encounter (statuses as of 10/31/2021) [facility] of Past illness Narrative* Problem Noted Date Resolved Date Sterilization 11/11/2018 05/29/2020 Overview: November 11, 2018 Risks, benefits and alternatives to sterilization have been discussed with the patient. She declines reversible options including LARC. She understands sterilization is permanent, irreversible, risks of failure, regret and ectopic. In addition she understands there are surgical risks as well. Her questions were answered to her satisfaction and consent was signed. Jaylan Syed MD Elevated blood pressure affe cting in third trimester, antepartum 04/18/2016 05/21/2016 Overview: Mild elevated asymptomatic- check labs today and 24 urine, come back for bp check tomorrow. If still elevated or labs abnormal recommend IOL 37 weeks Yadi Howard MD Group B Streptococcus urinar y tract infection affecting in first trimester 10/16/2015 05/21/2016 Overview: 11/14/15: Urine culture contaminated, repeat at next visit. 10/16/15 Repeat urine culture 4 weeks MH Obesity in 09/28/2015 05/21/2016 Overview: 06/04/2018Patient is obese. Will plan on GCT@ NOB. TKRN Atypical squamous cells of u ndetermined significance (ASCUS) on Papanicolaou smear of cervix 08/08/2015 10/10/2021 Overview: August 08, 2015 neg HRHPV.; Jaylan Syed MD Urinary incontinence 12/10/2012 10/13/2015 Supervision of other high risk pregnancies, firs t trimester 02/19/2010 01/29/2019 Supervision of normal first 01/12/2010 02/19/2010 Threatened , antepartum 01/12/2010 08/26/2010 Abdominal pain, epigastric 01/12/201003/24 Diarrhea 01/12/2010 03/24/2013 documented as of this encounter (statuses as of 11/13/2021) [facility] Past illness Narrative* Problem Noted Date Resolved Date Sterilization 11/11/2018 05/29/2020 Overview: November 11, 2018 Risks, benefits and alternatives to sterilization have been discussed with the patient. She declines reversible options including LARC. She understands sterilization is permanent, irreversible, risks of failure, regret and ectopic. In addition she understands there are surgical risks as well. Her questions were answered to her satisfaction and consent was signed. Jaylan Syed MD Elevated blood pressure affe cting in third trimester, antepartum 04/18/2016 05/21/2016 Overview: Mild elevated asymptomatic- check labs today and 24 urine, come back for bp check tomorrow. If still elevated or labs abnormal recommend IOL 37 weeks Yadi Howard MD Group B Streptococcus urinar y tract infection affecting in first trimester 10/16/2015 05/21/2016 Overview: 11/14/15: Urine culture contaminated, repeat at next visit. 10/16/15 Repeat urine culture 4 weeks MH Obesity in 09/28/2015 05/21/2016 Overview: 06/04/2018Patient is obese. Will plan on GCT@ NOB. TKRN Atypical squamous cells of u ndetermined significance (ASCUS) on Papanicolaou smear of cervix 08/08/2015 10/10/2021 Overview: August 08, 2015 neg HRHPV.; Jaylan Syed MD Urinary incontinence 12/10/2012 10/13/2015 Supervision of other high risk pregnancies, firs t trimester 02/19/2010 01/29/2019 Supervision of normal first 01/12/2010 02/19/2010 Threatened , antepartum 01/12/2010 08/26/2010 Abdominal pain, epigastric 01/12/201003/24 Diarrhea 01/12/2010 03/24/2013 documented as of this encounter (statuses as of 12/01/2021) [facility] of Past illness Narrative* Problem Noted Date Resolved Date Sterilization 11/11/2018 05/29/2020 Overview: November 11, 2018 Risks, benefits and alternatives to sterilization have been discussed with the patient. She declines reversible options including LARC. She understands sterilization is permanent, irreversible, risks of failure, regret and ectopic. In addition she understands there are surgical risks as well. Her questions were answered to her satisfaction and consent was signed. Jaylan Syed MD Elevated blood pressure affe cting in third trimester, antepartum 04/18/2016 05/21/2016 Overview: Mild elevated asymptomatic- check labs today and 24 urine, come back for bp check tomorrow. If still elevated or labs abnormal recommend IOL 37 weeks Yadi Howard MD Group B Streptococcus urinar y tract infection affecting in first trimester 10/16/2015 05/21/2016 Overview: 11/14/15: Urine culture contaminated, repeat at next visit. 10/16/15 Repeat urine culture 4 weeks MH Obesity in 09/28/2015 05/21/2016 Overview: 06/04/2018Patient is obese. Will plan on GCT@ NOB. TKRN Atypical squamous cells of u ndetermined significance (ASCUS) on Papanicolaou smear of cervix 08/08/2015 10/10/2021 Overview: August 08, 2015 neg HRHPV.; Jaylan Syed MD Urinary incontinence 12/10/2012 10/13/2015 Supervision of other high risk pregnancies, firs t trimester 02/19/2010 01/29/2019 Supervision of normal first 01/12/2010 02/19/2010 Threatened , antepartum 01/12/2010 08/26/2010 Abdominal pain, epigastric 01/12/201003/24 Diarrhea 01/12/2010 03/24/2013 documented as of this encounter (statuses as of 12/31/2021) [facility] of Past illness Narrative* Problem Noted Date Resolved Date Sterilization 11/11/2018 05/29/2020 Overview: November 11, 2018 Risks, benefits and alternatives to sterilization have been discussed with the patient. She declines reversible options including LARC. She understands sterilization is permanent, irreversible, risks of failure, regret and ectopic. In addition she understands there are surgical risks as well. Her questions were answered to her satisfaction and consent was signed. Jaylan Syed MD Elevated blood pressure affe cting in third trimester, antepartum 04/18/2016 05/21/2016 Overview: Mild elevated asymptomatic- check labs today and 24 urine, come back for bp check tomorrow. If still elevated or labs abnormal recommend IOL 37 weeks Yadi Howard MD Group B Streptococcus urinar y tract infection affecting in first trimester 10/16/2015 05/21/2016 Overview: 11/14/15: Urine culture contaminated, repeat at next visit. 10/16/15 Repeat urine culture 4 weeks Obesity in 09/28/2015 05/21/2016 Overview: 06/04/2018Patient is obese. Will plan on GCT@ NOB. TKRN Atypical squamous cells of u ndetermined significance (ASCUS) on Papanicolaou smear of cervix 08/08/2015 10/10/2021 Overview: August 08, 2015 neg HRHPV.; Jaylan Syed MD Urinary incontinence 12/10/2012 10/13/2015 Supervision of other high risk pregnancies, firs t trimester 02/19/2010 01/29/2019 Supervision of normal first 01/12/2010 02/19/2010 Threatened , antepartum 01/12/2010 08/26/2010 Abdominal pain, epigastric 01/12/201003/24 Diarrhea 01/12/2010 03/24/2013 documented as of this encounter (statuses as of 01/01/2022) [facility] History of Past illness Narrative* Problem Noted Date Resolved Date Sterilization 11/11/2018 05/29/2020 Overview: November 11, 2018 Risks, benefits and alternatives to sterilization have been discussed with the patient. She declines reversible options including LARC. She understands sterilization is permanent, irreversible, risks of failure, regret and ectopic. In addition she understands there are surgical risks as well. Her questions were answered to her satisfaction and consent was signed. Jaylan Syed MD Elevated blood pressure affe cting in third trimester, antepartum 04/18/2016 05/21/2016 Overview: Mild elevated asymptomatic- check labs today and 24 urine, come back for bp check tomorrow. If still elevated or labs abnormal recommend IOL 37 weeks Yadi Howard MD [facility] Streptococcus urinar y tract infection affecting in first trimester 10/16/2015 05/21/2016 Overview: 11/14/15: Urine culture contaminated, repeat at next visit. MH 10/16/15 Repeat urine culture 4 weeks MH Obesity in 09/28/2015 05/21/2016 Overview: 06/04/2018Patient is obese. Will plan on GCT@ NOB. TKRN Atypical squamous cells of u ndetermined significance (ASCUS) on Papanicolaou smear of cervix 08/08/2015 10/10/2021 Overview: August 08, 2015 neg HRHPV.; Jaylan Syed MD Urinary incontinence 12/10/2012 10/13/2015 Supervision of other high risk pregnancies, firs t trimester 02/19/2010 01/29/2019 Supervision of normal first 01/12/2010 02/19/2010 Threatened , antepartum 01/12/2010 08/26/2010 Abdominal pain, epigastric 01/12/201003/24 Diarrhea 01/12/2010 03/24/2013 documented as of this encounter (statuses as of 01/28/2022) [facility]09-04-2019 History of Past illness Narrative* Problem Noted Date Resolved Date Sterilization 11/11/2018 05/29/2020 Overview: November 11, 2018 Risks, benefits and alternatives to sterilization have been discussed with the patient. She declines reversible options including LARC. She understands sterilization is permanent, irreversible, risks of failure, regret and ectopic. In addition she understands there are surgical risks as well. Her questions were answered to her satisfaction and consent was signed. Jaylan Syed MD Elevated blood pressure affe cting in third trimester, antepartum 04/18/2016 05/21/2016 Overview: Mild elevated asymptomatic- check labs today and 24 urine, come back for bp check tomorrow. If still elevated or labs abnormal recommend IOL 37 weeks Yadi Howard MD Group B Streptococcus urinar y tract infection affecting in first trimester 10/16/2015 05/21/2016 Overview: 11/14/15: Urine culture contaminated, repeat at next visit. MH 10/16/15 Repeat urine culture 4 weeks MH Obesity in 09/28/2015 05/21/2016 Overview: 06/04/2018Patient is obese. Will plan on GCT@ NOB. TKRN Atypical squamous cells of u ndetermined significance (ASCUS) on Papanicolaou smear of cervix 08/08/2015 10/10/2021 Overview: August 08, 2015 neg HRHPV.; Jaylan Syed MD Urinary incontinence 12/10/2012 10/13/2015 Supervision of other high risk pregnancies, firs t trimester 02/19/2010 01/29/2019 Supervision of normal first 01/12/2010 02/19/2010 Threatened , antepartum 01/12/2010 08/26/2010 Abdominal pain, epigastric 01/12/201003/24 Diarrhea 01/12/2010 03/24/2013 documented as of this encounter (statuses as of 01/28/2022) [facility]09-04-2019 History of Past illness Narrative* Problem Noted Date Resolved Date Sterilization 11/11/2018 05/29/2020 Overview: November 11, 2018 Risks, benefits and alternatives to sterilization have been discussed with the patient. She declines reversible options including LARC. She understands sterilization is permanent, irreversible, risks of failure, regret and ectopic. In addition she understands there are surgical risks as well. Her questions were answered to her satisfaction and consent was signed. Jaylan Syed MD Elevated blood pressure affe cting in third trimester, antepartum 04/18/2016 05/21/2016 Overview: Mild elevated asymptomatic- check labs today and 24 urine, come back for bp check tomorrow. If still elevated or labs abnormal recommend IOL 37 weeks Yadi Howard MD Group B Streptococcus urinar y tract infection affecting in first trimester 10/16/2015 05/21/2016 Overview: 11/14/15: Urine culture contaminated, repeat at next visit. 10/16/15 Repeat urine culture 4 weeks Obesity in 09/28/2015 05/21/2016 Overview: 06/04/2018Patient is obese. Will plan on GCT@ NOB. TKRN Atypical squamous cells of u ndetermined significance (ASCUS) on Papanicolaou smear of cervix 08/08/2015 10/10/2021 Overview: August 08, 2015 neg HRHPV.; Jaylan Syed MD Urinary incontinence 12/10/2012 10/13/2015 Supervision of other high risk pregnancies, firs t trimester 02/19/2010 01/29/2019 Supervision of normal first 01/12/2010 02/19/2010 Threatened , antepartum 01/12/2010 08/26/2010 Abdominal pain, epigastric 01/12/201003/24 Diarrhea 01/12/2010 03/24/2013 documented as of this encounter (statuses as of 03/15/2022) [facility]09-04[facility]2019 History of Past illness Narrative* Problem Noted Date Resolved Date Sterilization 11/11/2018 05/29/2020 Overview: November 11, 2018 Risks, benefits and alternatives to sterilization have been discussed with the patient. She declines reversible options including LARC. She understands sterilization is permanent, irreversible, risks of failure, regret and ectopic. In addition she understands there are surgical risks as well. Her questions were answered to her satisfaction and consent was signed. Jaylan Syed MD Elevated blood pressure affe cting in third trimester, antepartum 04/18/2016 05/21/2016 Overview: Mild elevated asymptomatic- check labs today and 24 urine, come back for bp check tomorrow. If still elevated or labs abnormal recommend IOL 37 weeks Yadi Howard MD Group B Streptococcus urinar y tract infection affecting in first trimester 10/16/2015 05/21/2016 Overview: 11/14/15: Urine culture contaminated, repeat at next visit. 10/16/15 Repeat urine culture 4 weeks Obesity in 09/28/2015 05/21/2016 Overview: 06/04/2018Patient is obese. Will plan on GCT@ NOB. TKRN Atypical squamous cells of u ndetermined significance (ASCUS) on Papanicolaou smear of cervix 08/08/2015 10/10/2021 Overview: August 08, 2015 neg HRHPV.; Jaylan Syed MD Urinary incontinence 12/10/2012 10/13/2015 Supervision of other high risk pregnancies, firs t trimester 02/19/2010 01/29/2019 Supervision of normal first 01/12/2010 02/19/2010 Threatened , antepartum 01/12/2010 08/26/2010 Abdominal pain, epigastric 01/12/201003/24 Diarrhea 01/12/2010 03/24/2013 documented as of this encounter (statuses as of 03/21/2022) [facility]09-04[facility]2019 History of Past illness Narrative* Problem Noted Date Resolved Date Sterilization 11/11/2018 05/29/2020 Overview: November 11, 2018 Risks, benefits and alternatives to sterilization have been discussed with the patient. She declines reversible options including LARC. She understands sterilization is permanent, irreversible, risks of failure, regret and ectopic. In addition she understands there are surgical risks as well. Her questions were answered to her satisfaction and consent was signed. Jaylan Syed MD Elevated blood pressure affe cting in third trimester, antepartum 04/18/2016 05/21/2016 Overview: Mild elevated asymptomatic- check labs today and 24 urine, come back for bp check tomorrow. If still elevated or labs abnormal recommend IOL 37 weeks Yadi Howard MD Group B Streptococcus urinar y tract infection affecting in first trimester 10/16/2015 05/21/2016 Overview: 11/14/15: Urine culture contaminated, repeat at next visit. 10/16/15 Repeat urine culture 4 weeks Obesity in 09/28/2015 05/21/2016 Overview: 06/04/2018Patient is obese. Will plan on GCT@ NOB. TKRN Atypical squamous cells of u ndetermined significance (ASCUS) on Papanicolaou smear of cervix 08/08/2015 10/10/2021 Overview: August 08, 2015 neg HRHPV.; Jaylan Syed MD Urinary incontinence 12/10/2012 10/13/2015 Supervision of other high risk pregnancies, firs t trimester 02/19/2010 01/29/2019 Supervision of normal first 01/12/2010 02/19/2010 Threatened , antepartum 01/12/2010 08/26/2010 Abdominal pain, epigastric 01/12/201003/24 Diarrhea 01/12/2010 03/24/2013 documented as of this encounter (statuses as of 04/03/2022) [facility]09-04[facility]2019 History of Past illness Narrative* Problem Noted Date Resolved Date Sterilization 11/11/2018 05/29/2020 Overview: November 11, 2018 Risks, benefits and alternatives to sterilization have been discussed with the patient. She declines reversible options including LARC. She understands sterilization is permanent, irreversible, risks of failure, regret and ectopic. In addition she understands there are surgical risks as well. Her questions were answered to her satisfaction and consent was signed. Jaylan Syed MD Elevated blood pressure affe cting in third trimester, antepartum 04/18/2016 05/21/2016 Overview: Mild elevated asymptomatic- check labs today and 24 urine, come back for bp check tomorrow. If still elevated or labs abnormal recommend IOL 37 weeks Yadi Howard MD Group [facility] Streptococcus urinar y tract infection affecting in first trimester 10/16/2015 05/21/2016 Overview: 11/14/15: Urine culture contaminated, repeat at next visit. MH 10/16/15 Repeat urine culture 4 weeks Obesity in 09/28/2015 05/21/2016 Overview: 06/04/2018Patient is obese. Will plan on GCT@ NOB. TKRN Atypical squamous cells of u ndetermined significance (ASCUS) on Papanicolaou smear of cervix 08/08/2015 10/10/2021 Overview: August 08, 2015 neg HRHPV.; Jaylan Syed MD Urinary incontinence 12/10/2012 10/13/2015 Supervision of other high risk pregnancies, firs t trimester 02/19/2010 01/29/2019 Supervision of normal first 01/12/2010 02/19/2010 Threatened , antepartum 01/12/2010 08/26/2010 Abdominal pain, epigastric 01/12/201003/24 Diarrhea 01/12/2010 03/24/2013 documented as of this encounter (statuses as of 04/25/2022) [facility]09-[facility]2019 History of Past illness Narrative* Problem Noted Date Resolved Date Sterilization 11/11/2018 05/29/2020 Overview: November 11, 2018 Risks, benefits and alternatives to sterilization have been discussed with the patient. She declines reversible options including LARC. She understands sterilization is permanent, irreversible, risks of failure, regret and ectopic. In addition she understands there are surgical risks as well. Her questions were answered to her satisfaction and consent was signed. Jaylan Syed MD Elevated blood pressure affe cting in third trimester, antepartum 04/18/2016 05/21/2016 Overview: Mild elevated asymptomatic- check labs today and 24 urine, come back for bp check tomorrow. If still elevated or labs abnormal recommend IOL 37 weeks Yadi Howard MD Group B Streptococcus urinar y tract infection affecting in first trimester 10/16/2015 05/21/2016 Overview: 11/14/15: Urine culture contaminated, repeat at next visit. MH 10/16/15 Repeat urine culture 4 weeks MH Obesity in 09/28/2015 05/21/2016 Overview: 06/04/2018Patient is obese. Will plan on GCT@ NOB. TKRN Atypical squamous cells of u ndetermined significance (ASCUS) on Papanicolaou smear of cervix 08/08/2015 10/10/2021 Overview: August 08, 2015 neg HRHPV.; Jaylan Syed MD Urinary incontinence 12/10/2012 10/13/2015 Supervision of other high risk pregnancies, firs t trimester 02/19/2010 01/29/2019 Supervision of normal first 01/12/2010 02/19/2010 Threatened , antepartum 01/12/2010 08/26/2010 Abdominal pain, epigastric 01/12/201003/24 Diarrhea 01/12/2010 03/24/2013 documented as of this encounter (statuses as of 05/10/2022) [facility]09-[facility]2019 History of Past illness Narrative* Problem Noted Date Resolved Date Sterilization 11/11/2018 05/29/2020 Overview: November 11, 2018 Risks, benefits and alternatives to sterilization have been discussed with the patient. She declines reversible options including LARC. She understands sterilization is permanent, irreversible, risks of failure, regret and ectopic. In addition she understands there are surgical risks as well. Her questions were answered to her satisfaction and consent was signed. Jaylan Syed MD Elevated blood pressure affe cting in third trimester, antepartum 04/18/2016 05/21/2016 Overview: Mild elevated asymptomatic- check labs today and 24 urine, come back for bp check tomorrow. If still elevated or labs abnormal recommend IOL 37 weeks Yadi Howard MD Group [facility] Streptococcus urinar y tract infection affecting in first trimester 10/16/2015 05/21/2016 Overview: 11/14/15: Urine culture contaminated, repeat at next visit. MH 10/16/15 Repeat urine culture 4 weeks Obesity in 09/28/2015 05/21/2016 Overview: 06/04/2018Patient is obese. Will plan on GCT@ NOB. TKRN Atypical squamous cells of u ndetermined significance (ASCUS) on Papanicolaou smear of cervix 08/08/2015 10/10/2021 Overview: August 08, 2015 neg HRHPV.; Jaylan Syed MD Urinary incontinence 12/10/2012 10/13/2015 Supervision of other high risk pregnancies, firs t trimester 02/19/2010 01/29/2019 Supervision of normal first 01/12/2010 02/19/2010 Threatened , antepartum 01/12/2010 08/26/2010 Abdominal pain, epigastric 01/12/201003/24 Diarrhea 01/12/2010 03/24/2013 documented as of this encounter (statuses as of 07/11/2022) [facility]09-[facility] History of Past illness Narrative* Problem Noted Date Resolved Date Sterilization 11/11/2018 05/29/2020 Overview: November 11, 2018 Risks, benefits and alternatives to sterilization have been discussed with the patient. She declines reversible options including LARC. She understands sterilization is permanent, irreversible, risks of failure, regret and ectopic. In addition she understands there are surgical risks as well. Her questions were answered to her satisfaction and consent was signed. Jaylan Syed MD Elevated blood pressure affe cting in third trimester, antepartum 04/18/2016 05/21/2016 Overview: Mild elevated asymptomatic- check labs today and 24 urine, come back for bp check tomorrow. If still elevated or labs abnormal recommend IOL 37 weeks Yadi Howard MD Group B Streptococcus urinar y tract infection affecting in first trimester 10/16/2015 05/21/2016 Overview: 11/14/15: Urine culture contaminated, repeat at next visit. MH 10/16/15 Repeat urine culture 4 weeks MH Obesity in 09/28/2015 05/21/2016 Overview: 06/04/2018Patient is obese. Will plan on GCT@ NOB. TKRN Atypical squamous cells of u ndetermined significance (ASCUS) on Papanicolaou smear of cervix 08/08/2015 10/10/2021 Overview: August 08, 2015 neg HRHPV.; Jaylan Syed MD Urinary incontinence 12/10/2012 10/13/2015 Supervision of other high risk pregnancies, firs t trimester 02/19/2010 01/29/2019 Supervision of normal first 01/12/2010 02/19/2010 Threatened , antepartum 01/12/2010 08/26/2010 Abdominal pain, epigastric 01/12/201003/24 Diarrhea 01/12/2010 03/24/2013 documented as of this encounter (statuses as of 07/11/2022) [facility]09[facility] History of Past illness Narrative* Problem Noted Date Resolved Date Sterilization 11/11/2018 05/29/2020 Overview: November 11, 2018 Risks, benefits and alternatives to sterilization have been discussed with the patient. She declines reversible options including LARC. She understands sterilization is permanent, irreversible, risks of failure, regret and ectopic. In addition she understands there are surgical risks as well. Her questions were answered to her satisfaction and consent was signed. Jaylan Syed MD Elevated blood pressure affe cting in third trimester, antepartum 04/18/2016 05/21/2016 Overview: Mild elevated asymptomatic- check labs today and 24 urine, come back for bp check tomorrow. If still elevated or labs abnormal recommend IOL 37 weeks Yadi Howard MD Group [facility] Streptococcus urinar y tract infection affecting in first trimester 10/16/2015 05/21/2016 Overview: 11/14/15: Urine culture contaminated, repeat at next visit. MH 10/16/15 Repeat urine culture 4 weeks MH Obesity in 09/28/2015 05/21/2016 Overview: 06/04/2018Patient is obese. Will plan on GCT@ NOB. TKRN Atypical squamous cells of u ndetermined significance (ASCUS) on Papanicolaou smear of cervix 08/08/2015 10/10/2021 Overview: August 08, 2015 neg HRHPV.; Jaylan Syed MD Urinary incontinence 12/10/2012 10/13/2015 Supervision of other high risk pregnancies, firs t trimester 02/19/2010 01/29/2019 Supervision of normal first 01/12/2010 02/19/2010 Threatened , antepartum 01/12/2010 08/26/2010 Abdominal pain, epigastric 01/12/201003/24 Diarrhea 01/12/2010 03/24/2013 documented as of this encounter (statuses as of 07/16/2022) [facility]09[facility] History of Past illness Narrative* Problem Noted Date Resolved Date Sterilization 11/11/2018 05/29/2020 Overview: November 11, 2018 Risks, benefits and alternatives to sterilization have been discussed with the patient. She declines reversible options including LARC. She understands sterilization is permanent, irreversible, risks of failure, regret and ectopic. In addition she understands there are surgical risks as well. Her questions were answered to her satisfaction and consent was signed. Jaylan Syed MD Elevated blood pressure affe cting in third trimester, antepartum 04/18/2016 05/21/2016 Overview: Mild elevated asymptomatic- check labs today and 24 urine, come back for bp check tomorrow. If still elevated or labs abnormal recommend IOL 37 weeks Yadi Howard MD Group B Streptococcus urinar y tract infection affecting in first trimester 10/16/2015 05/21/2016 Overview: 11/14/15: Urine culture contaminated, repeat at next visit. MH 10/16/15 Repeat urine culture 4 weeks MH Obesity in 09/28/2015 05/21/2016 Overview: 06/04/2018Patient is obese. Will plan on GCT@ NOB. TKRN Atypical squamous cells of u ndetermined significance (ASCUS) on Papanicolaou smear of cervix 08/08/2015 10/10/2021 Overview: August 08, 2015 neg HRHPV.; Jaylan Syed MD Urinary incontinence 12/10/2012 10/13/2015 Supervision of other high risk pregnancies, firs t trimester 02/19/2010 01/29/2019 Supervision of normal first 01/12/2010 02/19/2010 Threatened , antepartum 01/12/2010 08/26/2010 Abdominal pain, epigastric 01/12/201003/24 Diarrhea 01/12/2010 03/24/2013 documented as of this encounter (statuses as of 07/16/2022) [facility]09[facility] History of Past illness Narrative* Problem Noted Date Resolved Date Sterilization 11/11/2018 05/29/2020 Overview: November 11, 2018 Risks, benefits and alternatives to sterilization have been discussed with the patient. She declines reversible options including LARC. She understands sterilization is permanent, irreversible, risks of failure, regret and ectopic. In addition she understands there are surgical risks as well. Her questions were answered to her satisfaction and consent was signed. Jaylan Syed MD Elevated blood pressure affe cting in third trimester, antepartum 04/18/2016 05/21/2016 Overview: Mild elevated asymptomatic- check labs today and 24 urine, come back for bp check tomorrow. If still elevated or labs abnormal recommend IOL 37 weeks Yadi Howard MD Group [facility] Streptococcus urinar y tract infection affecting in first trimester 10/16/2015 05/21/2016 Overview: 11/14/15: Urine culture contaminated, repeat at next visit. MH 10/16/15 Repeat urine culture 4 weeks MH Obesity in 09/28/2015 05/21/2016 Overview: 06/04/2018Patient is obese. Will plan on GCT@ NOB. TKRN Atypical squamous cells of u ndetermined significance (ASCUS) on Papanicolaou smear of cervix 08/08/2015 10/10/2021 Overview: August 08, 2015 neg HRHPV.; Jaylan Syed MD Urinary incontinence 12/10/2012 10/13/2015 Supervision of other high risk pregnancies, firs t trimester 02/19/2010 01/29/2019 Supervision of normal first 01/12/2010 02/19/2010 Threatened , antepartum 01/12/2010 08/26/2010 Abdominal pain, epigastric 01/12/201003/24 Diarrhea 01/12/2010 03/24/2013 documented as of this encounter (statuses as of 07/17/2022) [facility]09[facility] History of Past illness Narrative* Problem Noted Date Diagnosed Date Resolved Date Sterilization 11/11/2018 05/29/2020 Overview: November 11, 2018 Risks, benefits and alternatives to sterilization have been discussed with the patient. She declines reversible options including LARC. She understands sterilization is permanent, irreversible, risks of failure, regret and ectopic. In addition she understands there are surgical risks as well. Her questions were answered to her satisfaction and consent was signed. Jaylan Syed MD Elevated blood pressure affe cting in third trimester, antepartum 04/18/2016 7 Overview: Mild elevated asymptomatic- check labs today and 24 urine, come back for bp check tomorrow. If still elevated or labs abnormal recommend IOL 37 weeks Yadi Howard MD Group [facility] Streptococcus urinar y tract infection affecting in first trimester 10/16/2015 0 05/21/2016 Overview: 11/14/15: Urine culture contaminated, repeat at next visit. MH 10/16/15 Repeat urine culture 4 weeks MH Obesity in 09/28/2015 017 Overview: 06/04/2018Patient is obese. Will plan on GCT@ NOB. TKRN Atypical squamous cells of u ndetermined significance (ASCUS) on Papanicolaou smear of cervix 08/08/2015 10/10/2021 Overview: August 08, 2015 neg HRHPV.; Jaylan Syed MD Urinary incontinence 12/10/2012 016 Supervision of other high ri sk pregnancies, first trimester 02/19/2010 01/29/2019 Supervision of normal first 01/12/2010 02/19/2010 Threatened , antepartum 01/12/2010 08/26/2010 Abdominal pain, epigastric 01/12/2010 0 03/24/2013 Diarrhea 01/12/2010 03/24/2013 documented as of this encounter (statuses as of 10/22/2022) [facility] History of Past illness Narrative* Problem Noted Date Diagnosed Date Resolved Date Sterilization 11/11/2018 05/29/2020 Overview: November 11, 2018 Risks, benefits and alternatives to sterilization have been discussed with the patient. She declines reversible options including LARC. She understands sterilization is permanent, irreversible, risks of failure, regret and ectopic. In addition she understands there are surgical risks as well. Her questions were answered to her satisfaction and consent was signed. Jaylan Syed MD Elevated blood pressure affe cting in third trimester, antepartum 04/18/2016 7 Overview: Mild elevated asymptomatic- check labs today and 24 urine, come back for bp check tomorrow. If still elevated or labs abnormal recommend IOL 37 weeks Yadi Howard MD Group [facility] Streptococcus urinar y tract infection affecting in first trimester 10/16/2015 0 05/21/2016 Overview: 11/14/15: Urine culture contaminated, repeat at next visit. 10/16/15 Repeat urine culture 4 weeks MH Obesity in 09/28/2015 017 Overview: 06/04/2018Patient is obese. Will plan on GCT@ NOB. TKRN Atypical squamous cells of u ndetermined significance (ASCUS) on Papanicolaou smear of cervix 08/08/2015 10/10/2021 Overview: August 08, 2015 neg HRHPV.; Jaylan Syed MD Urinary incontinence 12/10/2012 016 Supervision of other high ri sk pregnancies, first trimester 02/19/2010 01/29/2019 Supervision of normal first 01/12/2010 02/19/2010 Threatened , antepartum 01/12/2010 08/26/2010 Abdominal pain, epigastric 01/12/2010 0 03/24/2013 Diarrhea 01/12/2010 03/24/2013 documented as of this encounter (statuses as of 10/24/2022) [facility] History of Past illness Narrative* Problem Noted Date Diagnosed Date Resolved Date Sterilization 11/11/2018 05/29/2020 Overview: November 11, 2018 Risks, benefits and alternatives to sterilization have been discussed with the patient. She declines reversible options including LARC. She understands sterilization is permanent, irreversible, risks of failure, regret and ectopic. In addition she understands there are surgical risks as well. Her questions were answered to her satisfaction and consent was signed. Jaylan Syed MD Elevated blood pressure affe cting in third trimester, antepartum 04/18/2016 7 Overview: Mild elevated asymptomatic- check labs today and 24 urine, come back for bp check tomorrow. If still elevated or labs abnormal recommend IOL 37 weeks Yadi Howard MD Group [facility] Streptococcus urinar y tract infection affecting in first trimester 10/16/2015 0 05/21/2016 Overview: 11/14/15: Urine culture contaminated, repeat at next visit. MH 10/16/15 Repeat urine culture 4 weeks MH Obesity in 09/28/2015 017 Overview: 06/04/2018Patient is obese. Will plan on GCT@ NOB. TKRN Atypical squamous cells of u ndetermined significance (ASCUS) on Papanicolaou smear of cervix 08/08/2015 10/10/2021 Overview: August 08, 2015 neg HRHPV.; Jaylan Syed MD Urinary incontinence 12/10/2012 016 Supervision of other high ri sk pregnancies, first trimester 02/19/2010 01/29/2019 Supervision of normal first 01/12/2010 02/19/2010 Threatened , antepartum 01/12/2010 08/26/2010 Abdominal pain, epigastric 01/12/2010 0 03/24/2013 Diarrhea 01/12/2010 03/24/2013 documented as of this encounter (statuses as of 11/18/2022) [facility]09-04-2019 History of Past illness Narrative* Problem Noted Date Diagnosed Date Resolved Date Sterilization 11/11/2018 05/29/2020 Overview: November 11, 2018 Risks, benefits and alternatives to sterilization have been discussed with the patient. She declines reversible options including LARC. She understands sterilization is permanent, irreversible, risks of failure, regret and ectopic. In addition she understands there are surgical risks as well. Her questions were answered to her satisfaction and consent was signed. Jaylan Syed MD Elevated blood pressure affe cting in third trimester, antepartum 04/18/2016 7 Overview: Mild elevated asymptomatic- check labs today and 24 urine, come back for bp check tomorrow. If still elevated or labs abnormal recommend IOL 37 weeks Yadi Marcanthony, MD Group B Streptococcus urinar y tract infection affecting in first trimester 10/16/2015 0 05/21/2016 Overview: 11/14/15: Urine culture contaminated, repeat at next visit. 10/16/15 Repeat urine culture 4 weeks MH Obesity in 09/28/2015 017 Overview: 06/04/2018Patient is obese. Will plan on GCT@ NOB. TKRN Atypical squamous cells of u ndetermined significance (ASCUS) on Papanicolaou smear of cervix 08/08/2015 10/10/2021 Overview: August 08, 2015 neg HRHPV.; Jaylan Syed MD Urinary incontinence 12/10/2012 016 Supervision of other high ri sk pregnancies, first trimester 02/19/2010 01/29/2019 Supervision of normal first 01/12/2010 02/19/2010 Threatened , antepartum 01/12/2010 08/26/2010 Abdominal pain, epigastric 01/12/2010 0 03/24/2013 Diarrhea 01/12/2010 03/24/2013 documented as of this encounter (statuses as of 01/11/2023) [facility]09-04-2019 History of Past illness Narrative* Problem Noted Date Diagnosed Date Resolved Date Sterilization 11/11/2018 05/29/2020 Overview: November 11, 2018 Risks, benefits and alternatives to sterilization have been discussed with the patient. She declines reversible options including LARC. She understands sterilization is permanent, irreversible, risks of failure, regret and ectopic. In addition she understands there are surgical risks as well. Her questions were answered to her satisfaction and consent was signed. Jaylan Syed MD Elevated blood pressure affe cting in third trimester, antepartum 04/18/2016 7 Overview: Mild elevated asymptomatic- check labs today and 24 urine, come back for bp check tomorrow. If still elevated or labs abnormal recommend IOL 37 weeks Yadi Howard MD Group B Streptococcus urinar y tract infection affecting in first trimester 10/16/2015 0 05/21/2016 Overview: 11/14/15: Urine culture contaminated, repeat at next visit. 10/16/15 Repeat urine culture 4 weeks MH Obesity in 09/28/2015 017 Overview: 06/04/2018Patient is obese. Will plan on GCT@ NOB. TKRN Atypical squamous cells of u ndetermined significance (ASCUS) on Papanicolaou smear of cervix 08/08/2015 10/10/2021 Overview: August 08, 2015 neg HRHPV.; Jaylan Syed MD Urinary incontinence 12/10/2012 016 Supervision of other high ri sk pregnancies, first trimester 02/19/2010 01/29/2019 Supervision of normal first 01/12/2010 02/19/2010 Threatened , antepartum 01/12/2010 08/26/2010 Abdominal pain, epigastric 01/12/2010 0 03/24/2013 Diarrhea 01/12/2010 03/24/2013 documented as of this encounter (statuses as of 01/23/2023) [facility]09-04-2019 History of Past illness Narrative* Problem Noted Date Diagnosed Date Resolved Date Sterilization 11/11/2018 05/29/2020 Overview: November 11, 2018 Risks, benefits and alternatives to sterilization have been discussed with the patient. She declines reversible options including LARC. She understands sterilization is permanent, irreversible, risks of failure, regret and ectopic. In addition she understands there are surgical risks as well. Her questions were answered to her satisfaction and consent was signed. Jaylan Syed MD Elevated blood pressure affe cting in third trimester, antepartum 04/18/2016 7 Overview: Mild elevated asymptomatic- check labs today and 24 urine, come back for bp check tomorrow. If still elevated or labs abnormal recommend IOL 37 weeks Yadi Howard MD Group B Streptococcus urinar y tract infection affecting in first trimester 10/16/2015 0 05/21/2016 Overview: 11/14/15: Urine culture contaminated, repeat at next visit. 10/16/15 Repeat urine culture 4 weeks Obesity in 09/28/2015 017 Overview: 06/04/2018Patient is obese. Will plan on GCT@ NOB. TKRN Atypical squamous cells of u ndetermined significance (ASCUS) on Papanicolaou smear of cervix 08/08/2015 10/10/2021 Overview: August 08, 2015 neg HRHPV.; Jaylan Syed MD Urinary incontinence 12/10/2012 016 Supervision of other high ri sk pregnancies, first trimester 02/19/2010 01/29/2019 Supervision of normal first 01/12/2010 02/19/2010 Threatened , antepartum 01/12/2010 08/26/2010 Abdominal pain, epigastric 01/12/2010 0 03/24/2013 Diarrhea 01/12/2010 03/24/2013 documented as of this encounter (statuses as of 01/24/2023) [facility]09-[facility] History of Past illness Narrative* Problem Noted Date Diagnosed Date Resolved Date Sterilization 11/11/2018 05/29/2020 Overview: November 11, 2018 Risks, benefits and alternatives to sterilization have been discussed with the patient. She declines reversible options including LARC. She understands sterilization is permanent, irreversible, risks of failure, regret and ectopic. In addition she understands there are surgical risks as well. Her questions were answered to her satisfaction and consent was signed. Jaylan Syed MD Elevated blood pressure affe cting in third trimester, antepartum 04/18/2016 7 Overview: Mild elevated asymptomatic- check labs today and 24 urine, come back for bp check tomorrow. If still elevated or labs abnormal recommend IOL 37 weeks Yadi Howard MD Group B Streptococcus urinar y tract infection affecting in first trimester 10/16/2015 0 05/21/2016 Overview: 11/14/15: Urine culture contaminated, repeat at next visit. 10/16/15 Repeat urine culture 4 weeks MH Obesity in 09/28/2015 017 Overview: 06/04/2018Patient is obese. Will plan on GCT@ NOB. TKRN Atypical squamous cells of u ndetermined significance (ASCUS) on Papanicolaou smear of cervix 08/08/2015 10/10/2021 Overview: August 08, 2015 neg HRHPV.; Jaylan Syed MD Urinary incontinence 12/10/2012 016 Supervision of other high ri sk pregnancies, first trimester 02/19/2010 01/29/2019 Supervision of normal first 01/12/2010 02/19/2010 Threatened , antepartum 01/12/2010 08/26/2010 Abdominal pain, epigastric 01/12/2010 0 03/24/2013 Diarrhea 01/12/2010 03/24/2013 documented as of this encounter (statuses as of 04/29/2023) [facility]09-[facility] History of Past illness Narrative* Problem Noted Date Diagnosed Date Resolved Date Sterilization 11/11/2018 05/29/2020 Overview: November 11, 2018 Risks, benefits and alternatives to sterilization have been discussed with the patient. She declines reversible options including LARC. She understands sterilization is permanent, irreversible, risks of failure, regret and ectopic. In addition she understands there are surgical risks as well. Her questions were answered to her satisfaction and consent was signed. Jaylan Syed MD Elevated blood pressure affe cting in third trimester, antepartum 04/18/2016 7 Overview: Mild elevated asymptomatic- check labs today and 24 urine, come back for bp check tomorrow. If still elevated or labs abnormal recommend IOL 37 weeks Yadi Howard MD Group B Streptococcus urinar y tract infection affecting in first trimester 10/16/2015 0 05/21/2016 Overview: 11/14/15: Urine culture contaminated, repeat at next visit. 10/16/15 Repeat urine culture 4 weeks MH Obesity in 09/28/2015 017 Overview: 06/04/2018Patient is obese. Will plan on GCT@ NOB. TKRN Atypical squamous cells of u ndetermined significance (ASCUS) on Papanicolaou smear of cervix 08/08/2015 10/10/2021 Overview: August 08, 2015 neg HRHPV.; Jaylan Syed MD Urinary incontinence 12/10/2012 016 Supervision of other high ri sk pregnancies, first trimester 02/19/2010 01/29/2019 Supervision of normal first 01/12/2010 02/19/2010 Threatened , antepartum 01/12/2010 08/26/2010 Abdominal pain, epigastric 01/12/2010 0 03/24/2013 Diarrhea 01/12/2010 03/24/2013 documented as of this encounter (statuses as of 05/19/2023) [facility]09-[facility]2019 History of Past illness Narrative* Problem Noted Date Diagnosed Date Resolved Date Sterilization 11/11/2018 05/29/2020 Overview: November 11, 2018 Risks, benefits and alternatives to sterilization have been discussed with the patient. She declines reversible options including LARC. She understands sterilization is permanent, irreversible, risks of failure, regret and ectopic. In addition she understands there are surgical risks as well. Her questions were answered to her satisfaction and consent was signed. Jaylan Syed MD Elevated blood pressure affe cting in third trimester, antepartum 04/18/2016 7 Overview: Mild elevated asymptomatic- check labs today and 24 urine, come back for bp check tomorrow. If still elevated or labs abnormal recommend IOL 37 weeks Yadi Howard MD Group B Streptococcus urinar y tract infection affecting in first trimester 10/16/2015 0 05/21/2016 Overview: 11/14/15: Urine culture contaminated, repeat at next visit. 10/16/15 Repeat urine culture 4 weeks MH Obesity in 09/28/2015 017 Overview: 06/04/2018Patient is obese. Will plan on GCT@ NOB. TKRN Atypical squamous cells of u ndetermined significance (ASCUS) on Papanicolaou smear of cervix 08/08/2015 10/10/2021 Overview: August 08, 2015 neg HRHPV.; Jaylan Syed MD Urinary incontinence 12/10/2012 016 Supervision of other high ri sk pregnancies, first trimester 02/19/2010 01/29/2019 Supervision of normal first 01/12/2010 02/19/2010 Threatened , antepartum 01/12/2010 08/26/2010 Abdominal pain, epigastric 01/12/2010 0 03/24/2013 Diarrhea 01/12/2010 03/24/2013 documented as of this encounter (statuses as of 05/30/2023) [facility] History of Past illness Narrative* Problem Noted Date Diagnosed Date Resolved Date Sterilization 11/11/2018 05/29/2020 Overview: November 11, 2018 Risks, benefits and alternatives to sterilization have been discussed with the patient. She declines reversible options including LARC. She understands sterilization is permanent, irreversible, risks of failure, regret and ectopic. In addition she understands there are surgical risks as well. Her questions were answered to her satisfaction and consent was signed. Jaylan Syed MD Elevated blood pressure affe cting in third trimester, antepartum 04/18/2016 7 Overview: Mild elevated asymptomatic- check labs today and 24 urine, come back for bp check tomorrow. If still elevated or labs abnormal recommend IOL 37 weeks Yadi Howard MD Group B Streptococcus urinar y tract infection affecting in first trimester 10/16/2015 0 05/21/2016 Overview: 11/14/15: Urine culture contaminated, repeat at next visit. 10/16/15 Repeat urine culture 4 weeks MH Obesity in 09/28/2015 017 Overview: 06/04/2018Patient is obese. Will plan on GCT@ NOB. TKRN Atypical squamous cells of u ndetermined significance (ASCUS) on Papanicolaou smear of cervix 08/08/2015 10/10/2021 Overview: August 08, 2015 neg HRHPV.; Jaylan Syed MD Urinary incontinence 12/10/2012 016 Supervision of other high ri sk pregnancies, first trimester 02/19/2010 01/29/2019 Supervision of normal first 01/12/2010 02/19/2010 Threatened , antepartum 01/12/2010 08/26/2010 Abdominal pain, epigastric 01/12/2010 0 03/24/2013 Diarrhea 01/12/2010 03/24/2013 documented as of this encounter (statuses as of 06/20/2023) [facility] Author Julianne Adams [facility] Note Date/Time July 05, 2024 2:5 4pm [facility] Medical Records Department [address] [place] [id number] Counseling Note - Pharmacy 07/05/24 1454 MR#: [id number] Acct: [id number] Name: LIUDMILA WORLEY Rep #:[id number] : 1985 38 From: Julianne Adams PCP: Dr. Mena Vernon MD Status:AD M IN Y [place] [facility] [id number] Med Reconciliation Pharmacy Service has performed discharge medication reconciliation for this patient. The patient's discharge medication list was reviewed for discrepancies and discrepancies were resolved. Medications at Discharge Home Medications dextroamphetamine-amphetamine 30 mg tablet (Adderall) 30 mg PO 0800,1200 11/08/21 multivitamin 1 tab PO DAILY 11/08/21 lisinopril 5 mg tablet 5 mg PO DAILY 07/04/24 07/05/24 1454 <Electronically signed by Julianne Adams> Date _ Julianne Adams Cosigner Signature (if applicable): Date CC: ~ Signed [facility] Work Phone: Discharge summary Author Harshil Sanches [facility] Note Date/Time July 04, 2024 10: 44am [facility] Medical Records Department [address] [place] [address] Emergency Department Summary 07/04/24 MR#: [id number] Acct: [id number] Name: LIUDMILA WORLEY Rep #:[id number] : 1985 38 From: Harshil Garcia PCP: Dr. Mena Vernon MD Status:AD M IN [id number] Gavin Alford DO on 07/04/24 at 1044 Preop EKG: Sinus rate of 78, no ST changes. QTc 435. 1 view chest x-ray: No acute process. I spoke with Dr. Hdez for admission. 07/04/24 1044<Electronically signed by Gavin Sparrow> Cosigner Signature (if applicable): cc: Dr. Mena Vernon MD ~* Signed ADDENDUM by Dr. Gavin Alford DO on 07/04/24 at 0929 Patient signed out to me pending laboratory studies and repeat ultrasound. Labswhite count 7.6, lipase normal liver enzymes elevated AST 594 ALT 352 direct bili 0.54. Gallbladder ultrasound multiple gallstones normal common bile duct. Pain is controlled at this time she reports her last initial flare October of last year diagnosed at [place]. She is told to follow-up with her PCP she has not had any issues until yesterday evening she ate nodule cheese for lunch nothing for dinner. I spoke with on-call surgeon Dr. Austin, reviewed her imagings and labs along with labs from [place]. Reported her AST was 100 at that time. She notes gallstones and normal common bile duct however she recommended starting her on Zosyn admission to medicine to get GI involved for possible need for ERCP first before her cholecystectomy. I will speak with hospitalist service. 07/04/24 0929<Electronically signed by Gavin Le DO> Cosigner Signature (if applicable): cc: Dr. Mena Vernon MD ~* Signed HPI History of Present Illness Chief Complaint: Abd Pain PFSH PFSH Medical History ADHD Alcohol use Anxiety Depression Former smoker Hx of vaginal delivery Hypertension Migraine headache Wears glasses Home Medications ?Medication ?Instructions ?Recorded ?Last Taken ?Type dextroamphetamine-amphetamine 30 30 mg PO BID 11/08/21 Unknown History mg tablet (Adderall) multivitamin 1 tab PO DAILY 11/08/21 Unkn own History ibuprofen 600 mg tablet 600 mg PO Q6H PRN Pain 10 da ys #30 11/09/21 Unknown Rx TABLETS doxycycline monohydrate 100 mg 100 mg PO BID #10 CAPSU LES 06/22/22 Unknown Rx capsule benzonatate 100 mg capsule 200 mg PO TID PRN PRN cough 07/04/24 Unknown History dextroamphetamine-amphetamine 30 30 mg PO BID 07/04/24 Unknown History mg tablet (Adderall) lisinopril 5 mg tablet 5 mg PO DAILY 07/04/24 Unkno wn History Allergy/AdvReac Type Severity Reaction Status Date / Time No Known Allergies Allergy Verified 11/05/23 16:00 Family History no significant family his Surgical History History of tonsillectomy and adenoidectomy Social History household members: spouse Smoking Status: Former smoker substance use type: does not use EXAM Physical Exam Const Vital Signs: 07/04/24 06:20 07/04/24 06:47 Temperature 97.5 F L Temperature Source Oral Pulse Rate 85 85 Respiratory Rate 18 20 H Blood Pressure 153/102 H 136/83 H Blood Pressure Mean 119 100 Pulse Ox 100 100 Oxygen Delivery Method Room Air Room Air MDM MDM MDM Narrative Medical decision making narrative: HISTORY OF PRESENT ILLNESS: Chief complaint: Abdominal pain 38-year-old female presents with right upper quad abdominal pain. Notes pain isworse with food. Notes she thinks is her gallbladder. States she had an ultrasound done in October 2023 showed gallstones. States has not followed with general surgery. States she only follows with primary doctor. Denies fevers. Denies chest pain. Denies shortness of breath. Denies trouble urinating. Denies melena hematochezia. Notes history of a tubal ligation otherwise no abdominal surgical history. REVIEW OF SYSTEMS: Pertinent positives: Abdominal pain Pertinent negatives: PHYSICAL EXAM: Nursing triage notes reviewed, Vital signs reviewed Constitutional: please see [facility] HENT: MMM Eyes: Pupils equal round and reactive to light, Extraocular muscles intact Neck: No stridor, no JVD, full neck ROM Lungs: Clear to auscultation, No wheezing or rales. No increased work of breathing, no conversational dyspnea, no accessory muscle use, no nasal flaring. No respiratory distress noted Heart: Regular rate and rhythm, No murmurs, No rubs and No gallops, 2+ distal pulses (radial, femoral, posterior tibial) in all extremities Abdomen: Soft, right upper quadrant TTP, no positive Sherwood sign but no rigidity, rebound or guarding, no obvious peritoneal signs, no palpable pulsatile abdominal masses, no auscultated abdominal bruit : No CVAT Extremities: No edema Neuro: No new focal neurological deficits, cranial nerves II through XII intact,5/5 strength in all present extremities. Intact sensation to light touch in all present extremities, 2+ reflexes bilateral patella tendons. Skin: No rash or lesions noted MEDICAL DECISION MAKING: Chief Complaint: please see HPI External records reviewed: Reviewed prior imaging studies Factors affecting care: Gallstone Social determinants of health: Denies alcohol or illicit drug use History obtained from others: none Consults: none [facility] Narrative: The patient was initially hemodynamically stable, afebrile and nontoxic- appearing. Exam with right upper quadrant TTP, positive Sherwood sign I considered the following differential diagnosis: AAA, small bowel obstruction,abdominal perforation, appendicitis, pancreatitis, hepatobiliary pathology (acute cholecystitis), mesenteric ischemia, pathology (ie nephrolithiasis, pyelonephritis). Patient was initially treated with IV fluid, Zofran and morphine. I obtained a broad lab and imaging workup including a right upper quadrant ultrasound to further elucidate etiology of patient's complaints ALL IMAGES (IF OBTAINED) HAVE BEEN PERSONALLY REVIEWED AND INTERPRETED BY MYSELF. CBC without leukocytosis, noted mild anemia, no thrombocytopenia. Awaiting CMP, lipase, right upper quadrant ultrasound, reassessment. Signed outto a.m. physician pending workup. The patient and/or family, caregivers express understanding. The patient and/orfamily, caregivers agrees with the plan. Shared decision making: I will have a discussion with the patient and or visitors regarding risk/benefits of further testing or admission. They will be made aware of of the risk/benefits inherent in this decision they will be given the opportunity to voice understanding. Total critical care time today provided was at least 0 minutes. This excludes separately billable procedures. Critical care time (if documented) is secondary to the patient having high probability of clinically significant/life threatening deterioration in the patient's condition which required my urgent intervention. Impression: 1. Right upper quadrant abdominal pain 2. Gallstones Dispo: Pending lab and imaging evaluation, reassessment and final disposition This note was generated with [employer] dictation software. It may contain incorrectwords, spelling, and punctuation that were not noted in review of the chart prior to signing. Lab Data Labs: Laboratory Results - last 24 hr 07/04/24 06:36 WBC 7.6 RBC 4.65 Hgb 11.9 L Hct 36.0 L MCV 77.4 L MCH 25.6 L MCHC 33.1 RDW Std Deviation 44.5 H RDW Coeff of María 15.9 H Plt Count 312 MPV 10.0 Immature Gran % (Auto) 0.400 Neut % (Auto) 79.3 H Lymph % (Auto) 12.7 L Wright % (Auto) 6.9 Eos % (Auto) 0.4 Baso % (Auto) 0.3 Absolute Neuts (auto) 6.0 Absolute Lymphs (auto) 0.96 Nucleated RBC % 0 Discharge Plan Triage Chief Complaint: Abd Pain ED Provider: Harshil Sanches Dx/Rx/DC Orders Prescriptions: No Action multivitamin Tablet 1 tab PO DAILY dextroamphetamine-amphetamine [Adderall] 30 mg tablet 30 mg PO BID Patient Comments: TAKE 1 TABLET BY MOUTH 2CTIMES A DAY ibuprofen [ibuprofen] 600 MG tablet 600 mg PO Q6H PRN (Reason: Pain) 10 Days Qty: 30 1RF doxycycline monohydrate 100 mg capsule 100 mg PO BID Qty: 10 0RF benzonatate 100 mg capsule 200 mg PO TID PRN PRN (Reason: cough) lisinopril 5 mg tablet 5 mg PO DAILY dextroamphetamine-amphetamine [Adderall] 30 mg tablet 30 mg PO BID Rx Instructions: administer doses at least 4-6 hours apart Primary Care Provider: Mena Vernon Referrals: Mena Vernon MD [Primary Care Provider] - Print Language: Djiboutian What to do if you have Problems For any increased pain, shortness of breath, bleeding, nausea or vomiting, chestpain, or any unexpected problems, contact your Primary Care Provider. Call [facility] ([phone]) or report to the closest Emergency Room. Call 911 if necessary. 07/04/24 0707 <Electronically signed by Harshil Sanches DO> Cosigner Signature (if applicable): CC: Dr. Mena Vernon MD ~ Signed [facility] Work Phone: Discharge summary Author Tristen Harrison [facility] Note Date/Time July 05, 2024 2:[address] [facility] Medical Records Department [address] [place] [address] Instructions for Home/Discharge Instructions 07/05/24 1332 MR#: [id number] Acct: [id number] Name: LIUDMILA WORLEY Rep #:[id number] : 1985 38 From: Tristen mcclain DO PCP: Dr. Mena Vernon MD Status:AD M IN Discharge Instructions Diet Discharge Diet: No restrictions DC O2, CPAP, BIPAP needs Home O2 Discharge instructions: No Dressing / Incision Discharge Activity: No Restrictions Follow Up Care Test Results: Test results from this visit will be discussed in further detail at your follow- up appointment, if applicable. Discharge Plan Admission Admit Date/Time: 07/04/24 10:12 Primary Reason for Your Visit: Abdominal pain Attending Provider: Tristen Harrison Primary Care Provider: Mena Vernon Consulting Providers: Veronica Austin; Juan Hdez Instructions Additional Instructions / Restrictions: Please have repeat labs drawn on to check your liver enzymes in 5 to 7 days. Follow-up with Dr. Mcfarland in the office in the next few weeks. Discharge Orders/Prescriptions Prescriptions: Continued multivitamin Tablet 1 tab PO DAILY dextroamphetamine-amphetamine [Adderall] 30 mg tablet 30 mg PO 0800,1200 lisinopril 5 mg tablet 5 mg PO DAILY Other Ambulatory Orders: Liver Profile (Routine) Timeframe: 5 Days Facility: [facility] - Location: Laboratory Ordered By: Dr. Tristen Harrison Referrals / Follow Up: Mena Vernon MD [Primary Care Provider] - Friend,DO Sergio [Med Staff - Active Staff] - Disposition Disposition (needs filled in before D/C Order can be placed): Home, Self Care 07/05/24 1425<Electronically signed by Tristen Harrison DO>Tristen Harrison DO CC: Dr. Mena Vernon MD; Dr. Juan Hdez MD; Dr. Veronica Austin MD ~ Signed [facility] Work Phone: Evaluation + Plan note No data available for this section [facility] Evaluation noteNo assessment information available [facility] Work Phone: Evaluation note* Diagnosis Attention deficit hyperactivity disorder (ADHD), unspecified ADHD type [facility] in this encounter [facility] Diagnosis Encounter for gynecological examination with abnormal finding- Primary Routine gynecological examination Menorrhagia with regular cycle Excessive or frequent menstruation documented in this encounter [facility] [facility] Diagnosis Attention deficit hyperactivity disorder (ADHD), unspecified ADHD type- Primary Tremor Abnormal involuntary movements Eyelid twitch Abnormal involuntary movements Acne vulgaris Other acne Class 2 obesity due to excess calories with body mass index (BMI) of 37.0 to 37.9 in adult, unspecified whether serious comorbidity present [facility] Diagnosis Menorrhagia with regular cycle- Primary Excessive or frequent menstruation documented [facility] Diagnosis Abnormal uterine bleeding (AUB)- Primary [facility] Diagnosis Attention deficit hyperactivity disorder (ADHD), unspecified ADHD type documented [facility] Diagnosis Encounter for sterilization- Primary Sterilization Preoperative examination Preoperative examination, unspecified [facility] Diagnosis Attention deficit hyperactivity disorder (ADHD), unspecified ADHD type- Primary Anxiety and depression Dysthymic disorder Obesity due to excess calories without serious comorbidity, unspecified classification [facility]* Diagnosis Onset Date Resolution Status Sterilization acute [facility] Work Phone: Evaluation note* Diagnosis Encounter for sterilization- Primary Sterilization documented in this encounter [facility] note* Diagnosis Attention deficit hyperactivity disorder (ADHD), unspecified ADHD type documented in this encounter [facility] note* Diagnosis Attention deficit hyperactivity disorder (ADHD), unspecified ADHD type- Primary documented in this encounter [facility] note* Diagnosis Breast pain- Primary Mastodynia Large breasts Hypertrophy of breast documented in this encounter [facility] note* Diagnosis Breast pain- Primary Mastodynia Mass of right breast, unspecified quadrant Breast pain Mastodynia Mass of right breast, unspecified quadrant Breast pain Mastodynia Mass of right breast, unspecified quadrant documented in this encounter [facility] note* Diagnosis Breast pain Mastodynia Mass of right breast, unspecified quadrant documented in this encounter [facility] note* Diagnosis Breast pain Mastodynia Mass of right breast, unspecified quadrant documented in this encounter [facility] note* Diagnosis URI, acute- Primary Acute upper respiratory infections of unspecified site Nausea Nausea alone documented in this encounter [facility] note* Diagnosis Attention deficit hyperactivity disorder (ADHD), unspecified ADHD type- Primary Encounter for long-term current use of medication Encounter for immunization Need for other specified prophylactic vaccination against single bacterial disease documented in this encounter [facility] note* Diagnosis Attention deficit hyperactivity disorder (ADHD), unspecified ADHD type- Primary Anxiety and depression Dysthymic disorder Dry eyes Tear film insufficiency, unspecified documented in this encounter [facility] note* Diagnosis Feared complaint without diagnosis Person with feared complaint in whom no diagnosis was made documented in this encounter [facility] note* Diagnosis Encounter for gynecological examination with abnormal finding- Primary Routine gynecological examination Hirsutism Acne vulgaris Other acne Unintended weight gain Abnormal weight gain Class 2 obesity due to excess calories without serious comorbidity with body mass index (BMI) of 38.0 to 38.9 in adult documented in this encounter [facility] note* Diagnosis Attention deficit hyperactivity disorder (ADHD), unspecified ADHD type documented in this encounter [facility] note* Diagnosis Attention deficit hyperactivity disorder (ADHD), unspecified ADHD type documented in this encounter [facility] note* Diagnosis Attention deficit hyperactivity disorder (ADHD), unspecified ADHD type- Primary Primary hypertension Unspecified essential hypertension Hypochromic microcytic anemia Iron deficiency anemia, unspecified Class 2 obesity due to excess calories with body mass index (BMI) of 38.0 to 38.9 in adult, unspecified whether serious comorbidity present Lipid screening Screening for lipoid disorders Encounter for long-term current use of medication documented in this encounter [facility] note* Diagnosis Viral URI- Primary Acute upper respiratory infections of unspecified site documented in this encounter [facility] note* Diagnosis Attention deficit hyperactivity disorder (ADHD), unspecified ADHD type documented in this encounter [facility] note* Diagnosis Attention deficit hyperactivity disorder (ADHD), unspecified ADHD type documented in this encounter [facility] note* Diagnosis Attention deficit hyperactivity disorder (ADHD), unspecified ADHD type- Primary documented in this encounter [facility] note* Diagnosis Attention deficit hyperactivity disorder (ADHD), unspecified ADHD type documented in this encounter [facility] note* Diagnosis Sore throat- Primary Acute pharyngitis documented in this encounter [facility] note* Diagnosis Attention deficit hyperactivity disorder (ADHD), unspecified ADHD type documented in this encounter [facility] note* Diagnosis Right upper quadrant abdominal pain- Primary Abdominal pain, right upper quadrant Flank pain Abdominal pain, unspecified site documented in this encounter [facility] note* Diagnosis Attention deficit hyperactivity disorder (ADHD), unspecified ADHD type- Primary Iron deficiency Iron deficiency anemia, unspecified Primary hypertension Unspecified essential hypertension Class 2 obesity due to excess calories with body mass index (BMI) of 38.0 to 38.9 in adult, unspecified whether serious comorbidity present documented in this encounter [facility] note* Diagnosis Acute cough documented in this encounter [facility] note* Diagnosis Attention deficit hyperactivity disorder (ADHD), unspecified ADHD type documented in this encounter [facility] note* Diagnosis Viral URI- Primary Acute upper respiratory infections of unspecified site Acute cough documented in this encounter [facility] note* Diagnosis Attention deficit hyperactivity disorder (ADHD), unspecified ADHD type- Primary Essential (primary) hypertension Unspecified essential hypertension Iron deficiency anemia, unspecified iron deficiency anemia type Radiculopathy, thoracic region Thoracic or lumbosacral neuritis or radiculitis, unspecified Encounter for long-term current use of medication Obesity, Class II, BMI 35-39.9 Obesity, unspecified [facility]* Diagnosis Encounter for gynecological examination (general) (routine) without abnormal findings- Primary Screening for cervical cancer Screening for malignant neoplasm of the cervix Encounter for screening for human papillomavirus (HPV) Special screening examination for human papillomavirus (HPV) BMI 38.0-38.9,adult Body Mass Index 38.0-38.9, adult [facility] instructions Additional Instructions 1. Disc continue application of triple antibiotic ointment. 2. If you wish to apply appointment use bacitracin ointment. 3. Take antibiotics until gone 4. If you develop temperature greater than 100 have shaking chills or red streak toward your groin [facility] Phone: Hospital Discharge instructions No data available for this section [facility] Instructions* Attachments The following attachments cannot be sent through Care Everywhere. * Breast Health ([facility]) ([place]) * Breast Pain (Mastalgia) ([facility] [place]) ([place]) [facility] No data available for this section [facility] Reason for referral (narrative)* Diagnostic Procedure Only (Routine) - Authorized Specialty Diagnoses / Procedures Referred By Travis t Referred To Contact [facility] Diagnoses Menorrhagia with regular cycle Procedures PELVIC US WHI US PELVIC NONOBSTETRIC REAL-TIME IMAGE COMPLETE Jaylan Syed MD [facility] [place] [address] [address] Referral ID Status Reason Start Date Expiration Date Visits Requested Visits Authorized [id number] Authorized Auto-Generat ed Referral 09/19/2021 09/19/2022 1 1 * Outpatient Procedure (Routine) - Authorized Specialty Diagnoses / Procedures Referred By Contac t Referred To Contact [facility] Diagnoses Menorrhagia with regular cycle Procedures ENDOMETRIAL BIOPSY ENDOMETRIAL BX W/WO ENDOCERVIX BX W/O DILAT SPX Jaylan Syed MD [address] [place] [address] [facility] [address] [place] [address] Referral ID Status Reason Start Date Expiration Date Visits Requested Visits Authorized [id number] Authorized Auto-Generat ed Referral 09/19/2021 09/19/2022 1 1 [facility] for referral (narrative)* Diagnostic Procedure Only (Routine) - Authorized Specialty Diagnoses / Procedures Referred By Contac t Referred To Contact [facility] Diagnoses Breast pain Large breasts Procedures US BREAST LTD RT US BREAST UNI REAL TIME WITH IMAGE LIMITED Kayla Denny MD [address] [place] [address] [facility] [address] [place] [phone] Referral ID Status Reason Start Date Expiration Date Visits Requested Visits Authorized [id number] Authorized Auto-Generat ed Referral 2 02/27/2023 1 1 * Diagnostic Procedure Only (Routine) - Authorized Specialty Diagnoses / Procedures Referred By Contac t Referred To Contact [facility] Diagnoses Breast pain Large breasts Procedures MATA DIAGNOSTIC BILAT DIAGNOSTIC MAMMOGRAPHY COMPUTER-AIDED DETCJ BI Kayla Denny MD [address] [place] [address] [facility] [address] [place] [phone] Referral ID Status Reason Start Date Expiration Date Visits Requested Visits Authorized [id number] Authorized Auto-Generat ed Referral 2 02/27/2023 1 1 [facility] for referral (narrative)No reason for referral [facility] Work Phone: Chief Complaint and Reason for Visit Chief Complaint abd pain Chief Complaint abd pain 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 Reason for Visit Sterilization Chief Complaint BURN Chief Complaint Admit Date ACUTE CHOLECYSTITIS July 04, 2024 10: 12am Chief Complaint Admit Date ACUTE CHOLECYSTITIS July 04, 2024 10: 12am ACUTE CHOLECYSTITIS July 05, 2024 8:3 6am Reason for Visit Admit Date Acute cholecystitis with acute cholangit is July 04, 2024 10:12am Cholelithiasis July 04, 2024 10: 12am Elevated LFTs July 04, 2024 10: 12am Chief Complaint Admit Date ACUTE CHOLECYSTITIS July 04, 2024 10: 12am ACUTE CHOLECYSTITIS July 05, 2024 8:3 6am ACUTE CHOLECYSTITIS July 05, 2024 1:3 3pm INT LAB ORDER July 12, 2024 4:47pm Reason for Visit Admit Date Elevated LFTs July 04, 2024 10: 12am Acute cholecystitis with acute cholangit is July 04, 2024 10:12am Cholelithiasis July 04, 2024 10: 12am Advance Directives No Advanced Directives Records Found Advance Directive Response Recorded Date/ Time Advance Directives No April 8:45am Living Will No July 27, 2021 1 2:43pm Power of Asp Developer No July 27, 2021 12:43pm Advance Directive Response Recorded Date/ Time Advance Directives No April 8:45am Living Will No November 08 12:23pm Power of Asp Developer No November 08, 2021 12:23pm Advance Directive Response Recorded Date/ Time Advance Directives No April 8:45am Living Will No June 22, 2022 4:46pm Power of Asp Developer No June 22 4:46pm Advance Directive Response Recorded Date/ Time Do you have a Healthcare Power of Asp Developer? No July 04, 2024 6:20am Advance Directives No April 8:45am Advance Directive Response Recorded Date/ Time Do you have a Healthcare Power of Asp Developer? No July 04, 2024 11:02am Advance Directives No April 8:45am Reason for Referral Specialty Diagnoses / Procedures Referred By Contac t Referred To Contact Diagnoses Breast pain Mass of right breast, unspecified quadrant Procedures US BREAST LIMITED UNILATERAL RIGHT Venita Nair, [employer]ER-[employer]ING [employer] WORKER [address] [phone] Referral ID Status Reason Start Date Expiration Date V isits Requested Visits Authorized [id number] New Request 02/15/2022 03/12/2023 1 1 Specialty Diagnoses / Procedures Referred By Contac t Referred To Contact Diagnoses Breast pain Mass of right breast, unspecified quadrant Procedures MAMMO DIAGNOSTIC WITH MATA BILATERAL Venita Nair R, [employer] WORKER [address] [place] [address] Referral ID Status Reason Start Date Expiration Date V isits Requested Visits Authorized [id number] New Request 02/15/2022 03/12/2023 1 1 Specialty Diagnoses / Procedures Referred By Contac t Referred To Contact Diagnoses Attention deficit hyperactivity disorder (ADHD), unspecified ADHD type Mena Vernon MD [address] [place], [place] [phone] Referral ID Status Reason Start Date Expiration Date Visits Re quested Visits Authorized [id number] Closed 1 1 Referral ID Status Reason Start Date Expiration Date Visits Re quested Visits Authorized [id number] Closed 1 1 Referral ID Status Reason Start Date Expiration Date Visits Re quested Visits Authorized [id number] Closed 1 1 Specialty Diagnoses / Procedures Referred By Contac t Referred To Contact Diagnoses Anxiety and depression Mena Vernon MD [address] [place] [phone] Referral ID Status Reason Start Date Expiration Date Visits Re quested Visits Authorized [id number] Closed 1 1 Referral ID Status Reason Start Date Expiration Date V isits Requested Visits Authorized [id number] Authorized 1 1 Referral ID Status Reason Start Date Expiration Date V isits Requested Visits Authorized [id number] Authorized 1 1 Referral ID Status Reason Start Date Expiration Date V isits Requested Visits Authorized [id number] Authorized 1 1 Specialty Diagnoses / Procedures Referred By Contac t Referred To Contact Diagnoses Class 2 obesity due to excess calories without serious comorbidity with body mass index (BMI) of 38.0 to 38.9 in adult Procedures CONSULT TO [facility] PROGRAM OFFICE/OUTPATIENT NEW HIGH MDM 60-74 MINUTES Jaylan Syed MD [address] [place] [phone] Referral ID Status Reason Start Date Expiration Date Visits Requested Visits Authorized [id number] Authorized PCP Requested Referral Auto-Generate d Referral 10/22/2022 10/22/2023 1 1 Referral ID Status Reason Start Date Expiration Date Visits Re quested Visits Authorized [id number] Closed 1 1 Specialty Diagnoses / Procedures Referred By Contac t Referred To Contact Diagnoses Attention deficit hyperactivity disorder (ADHD), unspecified ADHD type Deepti Redd, FUELER.HVAC/R INSTRUCTOR [address] [place] [address] Referral ID Status Reason Start Date Expiration Date Visits Re quested Visits Authorized [id number] Closed 1 1 Referral ID Status Reason Start Date Expiration Date Visits Re quested Visits Authorized [id number] Closed 1 1 Referral ID Status Reason Start Date Expiration Date Visits Re quested Visits Authorized [id number] Closed 1 1 Referral ID Status Reason Start Date Expiration Date Visits Re quested Visits Authorized [id number] Closed 1 1 Specialty Diagnoses / Procedures Referred By Contac t Referred To Contact Diagnoses Attention deficit hyperactivity disorder (ADHD), unspecified ADHD type Karol Vergara FUELER.[employer]ING ROOM WORKER [address] [phone] Referral ID Status Reason Start Date Expiration Date Visits Re quested Visits Authorized [id number] Closed 1 1 Referral ID Status Reason Start Date Expiration Date Visits Re quested Visits Authorized [id number] Closed 1 1 Summary Purpose Family History No Family History Records Found No data available for this section No data available for this section No Family History Records FoundNo Family History Records FoundNo Family History Records FoundNo Family History Records Found Additional Source Comments Goals (unrecognized section and content) Goals may be documented in a n alternate sectionGoals may be documented in an alternate section No data available for this section No data available for this sectionGoals may be documented in an alternate section Source Comments (unrecognize d section and content) In the event this informatio n is protected by the Federal Confidentiality of Alcohol and Drug Abuse Patient Records regulations: The Federal rules restrict any use of the information to criminally investigate or prosecute any alcohol or drug abuse patient.[facility] the event this information is protected by the Federal Confidentiality of Alcohol and Drug Abuse Patient Records regulations: The Federal rules restrict any use of the information to criminally investigate or prosecute any alcohol or drug abuse patient.[facility] Hospital[facility] the event this information is protected by the Federal Confidentiality of Alcohol and Drug Abuse Patient Records regulations: The Federal rules restrict any use of the information to criminally investigate or prosecute any alcohol or drug abuse patient.[facility] the event this information is protected by the Federal Confidentiality of Alcohol and Drug Abuse Patient Records regulations: The Federal rules restrict any use of the information to criminally investigate or prosecute any alcohol or drug abuse patient.[facility] Hospital[facility] the event this information is protected by the Federal Confidentiality of Alcohol and Drug Abuse Patient Records regulations: The Federal rules restrict any use of the information to criminally investigate or prosecute any alcohol or drug abuse patient.[facility] Hospital[facility] the event this information is protected by the Federal Confidentiality of Alcohol and Drug Abuse Patient Records regulations: The Federal rules restrict any use of the information to criminally investigate or prosecute any alcohol or drug abuse patient.[facility] Hospital[facility] the event this information is protected by the Federal Confidentiality of Alcohol and Drug Abuse Patient Records regulations: The Federal rules restrict any use of the information to criminally investigate or prosecute any alcohol or drug abuse patient.[facility] Hospital[facility] the event this information is protected by the Federal Confidentiality of Alcohol and Drug Abuse Patient Records regulations: The Federal rules restrict any use of the information to criminally investigate or prosecute any alcohol or drug abuse patient.[facility] Hospital[facility] the event this information is protected by the Federal Confidentiality of Alcohol and Drug Abuse Patient Records regulations: The Federal rules restrict any use of the information to criminally investigate or prosecute any alcohol or drug abuse patient.[facility] HospitalIn the event this information is protected by the Federal Confidentiality of Alcohol and Drug Abuse Patient Records regulations: The Federal rules restrict any use of the information to criminally investigate or prosecute any alcohol or drug abuse patient.[facility] the event this information is protected by the Federal Confidentiality of Alcohol and Drug Abuse Patient Records regulations: The Federal rules restrict any use of the information to criminally investigate or prosecute any alcohol or drug abuse patient.[facility] the event this information is protected by the Federal Confidentiality of Alcohol and Drug Abuse Patient Records regulations: The Federal rules restrict any use of the information to criminally investigate or prosecute any alcohol or drug abuse patient.[facility] Hospital[facility] the event this information is protected by the Federal Confidentiality of Alcohol and Drug Abuse Patient Records regulations: The Federal rules restrict any use of the information to criminally investigate or prosecute any alcohol or drug abuse patient.[facility] Hospital[facility] the event this information is protected by the Federal Confidentiality of Alcohol and Drug Abuse Patient Records regulations: The Federal rules restrict any use of the information to criminally investigate or prosecute any alcohol or drug abuse patient.[facility] Hospital[facility] the event this information is protected by the Federal Confidentiality of Alcohol and Drug Abuse Patient Records regulations: The Federal rules restrict any use of the information to criminally investigate or prosecute any alcohol or drug abuse patient.[facility] Hospital[facility] the event this information is protected by the Federal Confidentiality of Alcohol and Drug Abuse Patient Records regulations: The Federal rules restrict any use of the information to criminally investigate or prosecute any alcohol or drug abuse patient.[facility] HospitalIn the event this information is protected by the Federal Confidentiality of Alcohol and Drug Abuse Patient Records regulations: The Federal rules restrict any use of the information to criminally investigate or prosecute any alcohol or drug abuse patient.[facility] HospitalIn the event this information is protected by the Federal Confidentiality of Alcohol and Drug Abuse Patient Records regulations: The Federal rules restrict any use of the information to criminally investigate or prosecute any alcohol or drug abuse patient.[facility] Hospital[facility] the event this information is protected by the Federal Confidentiality of Alcohol and Drug Abuse Patient Records regulations: The Federal rules restrict any use of the information to criminally investigate or prosecute any alcohol or drug abuse patient.[facility] HospitalIn the event this information is protected by the Federal Confidentiality of Alcohol and Drug Abuse Patient Records regulations: The Federal rules restrict any use of the information to criminally investigate or prosecute any alcohol or drug abuse patient.[facility] Hospital[facility] the event this information is protected by the Federal Confidentiality of Alcohol and Drug Abuse Patient Records regulations: The Federal rules restrict any use of the information to criminally investigate or prosecute any alcohol or drug abuse patient.[facility] Hospital[facility] the event this information is protected by the Federal Confidentiality of Alcohol and Drug Abuse Patient Records regulations: The Federal rules restrict any use of the information to criminally investigate or prosecute any alcohol or drug abuse patient.[facility] HospitalIn the event this information is protected by the Federal Confidentiality of Alcohol and Drug Abuse Patient Records regulations: The Federal rules restrict any use of the information to criminally investigate or prosecute any alcohol or drug abuse patient.[facility] HospitalIn the event this information is protected by the Federal Confidentiality of Alcohol and Drug Abuse Patient Records regulations: The Federal rules restrict any use of the information to criminally investigate or prosecute any alcohol or drug abuse patient.[facility] HospitalIn the event this information is protected by the Federal Confidentiality of Alcohol and Drug Abuse Patient Records regulations: The Federal rules restrict any use of the information to criminally investigate or prosecute any alcohol or drug abuse patient.[facility] HospitalIn the event this information is protected by the Federal Confidentiality of Alcohol and Drug Abuse Patient Records regulations: The Federal rules restrict any use of the information to criminally investigate or prosecute any alcohol or drug abuse patient.[facility] HospitalIn the event this information is protected by the Federal Confidentiality of Alcohol and Drug Abuse Patient Records regulations: The Federal rules restrict any use of the information to criminally investigate or prosecute any alcohol or drug abuse patient.[facility] HospitalIn the event this information is protected by the Federal Confidentiality of Alcohol and Drug Abuse Patient Records regulations: The Federal rules restrict any use of the information to criminally investigate or prosecute any alcohol or drug abuse patient.[facility] HospitalIn the event this information is protected by the Federal Confidentiality of Alcohol and Drug Abuse Patient Records regulations: The Federal rules restrict any use of the information to criminally investigate or prosecute any alcohol or drug abuse patient.[facility] HospitalIn the event this information is protected by the Federal Confidentiality of Alcohol and Drug Abuse Patient Records regulations: The Federal rules restrict any use of the information to criminally investigate or prosecute any alcohol or drug abuse patient.[facility] HospitalIn the event this information is protected by the Federal Confidentiality of Alcohol and Drug Abuse Patient Records regulations: The Federal rules restrict any use of the information to criminally investigate or prosecute any alcohol or drug abuse patient.[facility] HospitalIn the event this information is protected by the Federal Confidentiality of Alcohol and Drug Abuse Patient Records regulations: The Federal rules restrict any use of the information to criminally investigate or prosecute any alcohol or drug abuse patient.[facility] HospitalIn the event this information is protected by the Federal Confidentiality of Alcohol and Drug Abuse Patient Records regulations: The Federal rules restrict any use of the information to criminally investigate or prosecute any alcohol or drug abuse patient.[facility] HospitalIn the event this information is protected by the Federal Confidentiality of Alcohol and Drug Abuse Patient Records regulations: The Federal rules restrict any use of the information to criminally investigate or prosecute any alcohol or drug abuse patient.[facility] HospitalIn the event this information is protected by the Federal Confidentiality of Alcohol and Drug Abuse Patient Records regulations: The Federal rules restrict any use of the information to criminally investigate or prosecute any alcohol or drug abuse patient.[facility] HospitalIn the event this information is protected by the Federal Confidentiality of Alcohol and Drug Abuse Patient Records regulations: The Federal rules restrict any use of the information to criminally investigate or prosecute any alcohol or drug abuse patient.[facility] HospitalIn the event this information is protected by the Federal Confidentiality of Alcohol and Drug Abuse Patient Records regulations: The Federal rules restrict any use of the information to criminally investigate or prosecute any alcohol or drug abuse patient.[facility] HospitalIn the event this information is protected by the Federal Confidentiality of Alcohol and Drug Abuse Patient Records regulations: The Federal rules restrict any use of the information to criminally investigate or prosecute any alcohol or drug abuse patient.[facility] HospitalIn the event this information is protected by the Federal Confidentiality of Alcohol and Drug Abuse Patient Records regulations: The Federal rules restrict any use of the information to criminally investigate or prosecute any alcohol or drug abuse patient.[facility] HospitalIn the event this information is protected by the Federal Confidentiality of Alcohol and Drug Abuse Patient Records regulations: The Federal rules restrict any use of the information to criminally investigate or prosecute any alcohol or drug abuse patient.[facility] HospitalIn the event this information is protected by the Federal Confidentiality of Alcohol and Drug Abuse Patient Records regulations: The Federal rules restrict any use of the information to criminally investigate or prosecute any alcohol or drug abuse patient.[facility] HospitalIn the event this information is protected by the Federal Confidentiality of Alcohol and Drug Abuse Patient Records regulations: The Federal rules restrict any use of the information to criminally investigate or prosecute any alcohol or drug abuse patient.[facility] HospitalIn the event this information is protected by the Federal Confidentiality of Alcohol and Drug Abuse Patient Records regulations: The Federal rules restrict any use of the information to criminally investigate or prosecute any alcohol or drug abuse patient.[facility] HospitalIn the event this information is protected by the Federal Confidentiality of Alcohol and Drug Abuse Patient Records regulations: The Federal rules restrict any use of the information to criminally investigate or prosecute any alcohol or drug abuse patient.[facility] HospitalIn the event this information is protected by the Federal Confidentiality of Alcohol and Drug Abuse Patient Records regulations: The Federal rules restrict any use of the information to criminally investigate or prosecute any alcohol or drug abuse patient.[facility] HospitalIn the event this information is protected by the Federal Confidentiality of Alcohol and Drug Abuse Patient Records regulations: The Federal rules restrict any use of the information to criminally investigate or prosecute any alcohol or drug abuse patient.[facility] HospitalIn the event this information is protected by the Federal Confidentiality of Alcohol and Drug Abuse Patient Records regulations: The Federal rules restrict any use of the information to criminally investigate or prosecute any alcohol or drug abuse patient.[facility] HospitalIn the event this information is protected by the Federal Confidentiality of Alcohol and Drug Abuse Patient Records regulations: The Federal rules restrict any use of the information to criminally investigate or prosecute any alcohol or drug abuse patient.[facility] HospitalIn the event this information is protected by the Federal Confidentiality of Alcohol and Drug Abuse Patient Records regulations: The Federal rules restrict any use of the information to criminally investigate or prosecute any alcohol or drug abuse patient.[facility] HospitalIn the event this information is protected by the Federal Confidentiality of Alcohol and Drug Abuse Patient Records regulations: The Federal rules restrict any use of the information to criminally investigate or prosecute any alcohol or drug abuse patient.[facility] HospitalIn the event this information is protected by the Federal Confidentiality of Alcohol and Drug Abuse Patient Records regulations: The Federal rules restrict any use of the information to criminally investigate or prosecute any alcohol or drug abuse patient.[facility] HospitalIn the event this information is protected by the Federal Confidentiality of Alcohol and Drug Abuse Patient Records regulations: The Federal rules restrict any use of the information to criminally investigate or prosecute any alcohol or drug abuse patient.[facility] HospitalIn the event this information is protected by the Federal Confidentiality of Alcohol and Drug Abuse Patient Records regulations: The Federal rules restrict any use of the information to criminally investigate or prosecute any alcohol or drug abuse patient.[facility] HospitalIn the event this information is protected by the Federal Confidentiality of Alcohol and Drug Abuse Patient Records regulations: The Federal rules restrict any use of the information to criminally investigate or prosecute any alcohol or drug abuse patient.[facility] HospitalIn the event this information is protected by the Federal Confidentiality of Alcohol and Drug Abuse Patient Records regulations: The Federal rules restrict any use of the information to criminally investigate or prosecute any alcohol or drug abuse patient.[facility] Reason for Visit (unrecogniz ed section and content) Reason Onset Date Comments Barky Cough 08/09/2021 Reason Onset Date Comments Refill Request 08/13/2021 Reason Comments Follow Up Reason Comments Endometrial Biopsy Specialty Diagnoses / Procedures Referred By Contleonardo Referred To Contact [facility] Diagnoses Menorrhagia with regular cycle Procedures ENDOMETRIAL BIOPSY ENDOMETRIAL BX W/WO ENDOCERVIX BX W/O DILAT SPX Jaylan Syed MD [address] 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 Denies nipple discharge. States right breast feels warm at times. Specialty Diagnoses / Procedures Referred By Contac t Referred To Contact Certified Nurse Practitioner / Surgical Oncology Diagnoses New Patient right breast flatter than the left-pain around nipple on right breast and breast feels warm to touch-no breast imaging. NPP mailed Procedures NEW DIAGNOSTIC BREAST CLINIC Self, Self Venita Nair, FUELER-BONING ROOM WORKER [address] [place] [address] Referral ID Status Reason Start Date Expiration Date V isits Requested Visits Authorized [id number] New Request 02/15/2022 03/12/2023 1 1 Specialty Diagnoses / Procedures Referred By Contac t Referred To Contact Diagnoses Breast pain Mass of right breast, unspecified quadrant Procedures MAMMO DIAGNOSTIC WITH MATA BILATERAL Venita Nair, FUELER-BONING ROOM WORKER [address] [place] [address] Referral ID Status Reason Start Date Expiration Date V isits Requested Visits Authorized [id number] New Request 02/15/2022 03/12/2023 1 1 Specialty Diagnoses / Procedures Referred By Contac t Referred To Contact Diagnoses Breast pain Mass of right breast, unspecified quadrant Procedures US BREAST LIMITED UNILATERAL RIGHT Venita Nair, FUELER-BONING ROOM WORKER [address] [place] [id number] Referral ID Status Reason Start Date Expiration Date V isits Requested Visits Authorized [id number] New Request 02/15/2022 03/12/2023 1 1 Reason Comments Appointment Reason Comments Medication Problem Reason Comments Nausea x 1 day, bodyaches x 1 week Reason Comments Insurance Authorization Reason Comments F/U 3 Month Reason Comments Follow Up Rx Refills Reason Comments Medication Problem Lexapro Reason Onset Date Comments Vaginal Problem 07/15/2022 Reason Comments Patient Update Medication Request Reason Onset Date Comments Refill Request 07/17/2022 Reason Comments Yearly Exam Reason Onset Date Comments Refill Request 10/22/2022 Reason Onset Date Comments Refill Request 11/14/2022 Reason Comments Follow Up Reason Comments Cough Congestion, sore thr oat, & drainage with RIGHT ear pressure Specialty Diagnoses / Procedures Referred By Contac t Referred To Contact Internal Medicine / [facility] Diagnoses possible sinus infection: ear pressure, sore throat cough, congstion, drainage x 4 days Procedures EST SAME DAY Self [facility] [address] [place] [address] Referral ID Status Reason Start Date Expiration Date Visits Requested Visits Authorized [id number] Pending Review Financial Clearance Required - Self Pay 05/29/2023 08/27/2023 1 1 Reason Comments Vaginal Problem Reason Onset Date Comments Medication Problem 07/03/2023 Adderall Reason Onset Date Comments Refill Request 07/04/2023 Reason Onset Date Comments Refill Request 08/05/2023 Reason Onset Date Comments Refill Request 08/02/2023 Reason Comments Sore Throat Headache, runny nose x 2 days Reason Onset Date Comments Refill Request 09/03/2023 Reason Onset Date Comments Refill Request 10/03/2023 Specialty Diagnoses / Procedures Referred By Contac t Referred To Contact Radiology / [facility] Diagnoses 2 Procedures XR CHEST Shima Barney PA-C [address] [place] [address] [facility] [address] [place] [address] Referral ID Status Reason Start Date Expiration Date V isits Requested Visits Authorized [id number] Closed Clearance Not Met -Financial Clearance Bypassed 05/29/2023 08/27/2023 1 1 Reason Onset Date Comments Refill Request 02/02/2024 Reason Comments Chest Congestion cough, sinus pressur e, headache, ear pain x 6-7 days Care Teams (unrecognized sec tion and content) Team Status: Active Member Role Status Dates Dr. Mena Vernon MD Primary Care Provider Active Team Status: Inactive Member Role Status Dates Dr. Mena Vernon MD Primary Care Provider Active Start: July 04, 2024 End: July 05, 2024 Dr. Gavin Alford DO Emergency Provider Active Start : July 04, 2024 End: July 05, 2024 Dr. Juan Hdez MD Admit Provider Active Sta rt: July 04, 2024 End: July 05, 2024 Dr. Juan Hdez MD Other Provider Active Sta rt: July 04, 2024 End: July 05, 2024 Dr. Veronica Austin MD Other Provider Active S tart: July 04, 2024 End: July 05, 2024 Dr. Tristen Harrison DO Attending Provider Active Start: July 04, 2024 End: July 05, 2024 Team Status: Active Member Role Status Dates Dr. Mena Vernon MD Primary Care Provider Active Start: July 05, 2024 Dr. Gavin Alford DO Emergency Provider Active Start : July 05, 2024 Dr. Juan Hdez MD Admit Provider Active Sta rt: July 05, 2024 Dr. Juan Hdez MD Other Provider Active Sta rt: July 05, 2024 Dr. Veronica Austin MD Attending Provider Active Start: July 05, 2024 Dr. Veronica Austin MD Other Provider Active S tart: July 05, 2024 Dr. Tritsen Harrison DO Other Provider Active Start: July 05, 2024 Plant Taxonomy Teacher Relationship Specialty Start Date End Date Mena Vernon MD [address] [place] [address] PCP - General Internal Medicine 05/13/13 Plant Taxonomy Teacher Relationship Specialty Start Date End Date Mena Vernon MD [address] [place] [address] PCP - General Internal Medicine 05/13/13 Plant Taxonomy Teacher Relationship Specialty Start Date End Date Mena Vernon MD [address] [place] [address] PCP - General Internal Medicine 05/13/13 Plant Taxonomy Teacher Relationship Specialty Start Date End Date Mena Vernon MD [address] [place] [address] PCP - General Internal Medicine 05/13/13 Plant Taxonomy Teacher Relationship Specialty Start Date End Date Mena Vernon MD [address] [place] [address] PCP - General Internal Medicine 05/13/13 Plant Taxonomy Teacher Relationship Specialty Start Date End Date Mena Vernon MD [address] [place] [address] PCP - General Internal Medicine 05/13/13 Plant Taxonomy Teacher Relationship Specialty Start Date End Date Mena Vernon MD [address] [facility] [place] [address] PCP - General Internal Medicine 05/13/13 Plant Taxonomy Teacher Relationship Specialty Start Date End Date Mena Vernon MD [address] [facility] [place] [address] PCP - General Internal Medicine 05/13/13 Plant Taxonomy Teacher Relationship Specialty Start Date End Date Mena Vernon MD [address] [facility] [place] [address] PCP - General Internal Medicine 05/13/13 Plant Taxonomy Teacher Relationship Specialty Start Date End Date Mena Vernon MD [address] [facility] [place] [address] PCP - General Internal Medicine 05/13/13 Plant Taxonomy Teacher Relationship Specialty Start Date End Date Mena Vernon MD [address] [place] [address] PCP - General Internal Medicine 02/15/22 Jaylan Syed MD [address] [place] [address] Rotary Rock Drilling Machine Operator Obstetrics & Gynecology 02/15/22 Plant Taxonomy Teacher Relationship Specialty Start Date End Date Mena Vernon MD [address] [facility] [place] [address] PCP - General Internal Medicine 02/15/22 Jaylan Syed MD [address] [place] [address] Rotary Rock Drilling Machine Operator Obstetrics & Gynecology 02/15/22 Plant Taxonomy Teacher Relationship Specialty Start Date End Date Mena Vernon MD [address] [facility] [place] [address] PCP - General Internal Medicine 02/15/22 Jaylan Syed MD [address] [place] [address] Rotary Rock Drilling Machine Operator Obstetrics & Gynecology 02/15/22 Plant Taxonomy Teacher Relationship Specialty Start Date End Date Mena Vernon MD [address] [place] [address] PCP - General Internal Medicine 05/13/13 Plant Taxonomy Teacher Relationship Specialty Start Date End Date Mena Vernon MD [address] [place] [address] PCP - General Internal Medicine 05/13/13 Plant Taxonomy Teacher Relationship Specialty Start Date End Date Mena Vernon MD [address] [place] [address] PCP - General Internal Medicine 05/13/13 Team Status: Active Member Role Status Dates Dr. Mena Vernon MD Family Provider Active Dr. Mena Vernon MD Primary Care Provider Active Team Status: Inactive Member Role Status Dates Dr. Mena Vernon MD Primary Care Provider Active Dr. Johnny Barney MD Emergency Provider Active Plant Taxonomy Teacher Relationship Specialty Start Date End Date Mena Vernon MD [address] [place] [address] PCP - General Internal Medicine 05/13/13 Plant Taxonomy Teacher Relationship Specialty Start Date End Date Mena Vernon MD [address] [place], [place] [address] PCP - General Internal Medicine 05/13/13 Plant Taxonomy Teacher Relationship Specialty Start Date End Date Mena Vernon MD [address] [place] [address] PCP - General Internal Medicine 05/13/13 Plant Taxonomy Teacher Relationship Specialty Start Date End Date Mena Vernon MD [address] [facility] [place] [address] PCP - General Internal Medicine 05/13/13 Plant Taxonomy Teacher Relationship Specialty Start Date End Date Mena Vernon MD [address] [place] [address] PCP - General Internal Medicine 05/13/13 Plant Taxonomy Teacher Relationship Specialty Start Date End Date Mena Vernon MD [address] [place] [address] PCP - General Internal Medicine 05/13/13 Plant Taxonomy Teacher Relationship Specialty Start Date End Date Mena Vernon MD [address] [place] [address] PCP - General Internal Medicine 05/13/13 Plant Taxonomy Teacher Relationship Specialty Start Date End Date Mena Vernon MD [address] [facility] [place] [address] PCP - General Internal Medicine 05/13/13 Plant Taxonomy Teacher Relationship Specialty Start Date End Date Mena Vernon MD [address] [facility] [place] [address] PCP - General Internal Medicine 05/13/13 Plant Taxonomy Teacher Relationship Specialty Start Date End Date Mena Vernon MD [address] [place] [address] PCP - General Internal Medicine 05/13/13 Plant Taxonomy Teacher Relationship Specialty Start Date End Date Mena Vernon MD [address] [place] [address] PCP - General Internal Medicine 05/13/13 Plant Taxonomy Teacher Relationship Specialty Start Date End Date Mena Vernon MD [address] [facility] [place] [address] PCP - General Internal Medicine 05/13/13 Plant Taxonomy Teacher Relationship Specialty Start Date End Date Mena Vernon MD [address] [facility] [place] [address] PCP - General Internal Medicine 05/13/13 Plant Taxonomy Teacher Relationship Specialty Start Date End Date Mena Vernon MD [address] [facility] [place] [address] PCP - General Internal Medicine 05/13/13 Plant Taxonomy Teacher Relationship Specialty Start Date End Date Mena Vernon MD [address] [facility] [place] [address] PCP - General Internal Medicine 05/13/13 Plant Taxonomy Teacher Relationship Specialty Start Date End Date Mena Vernon MD [address] [facility] [place] [address] PCP - General Internal Medicine 05/13/13 Plant Taxonomy Teacher Relationship Specialty Start Date End Date Mena Vernon MD [address] [facility] [place] [address] PCP - General Internal Medicine 05/13/13 Plant Taxonomy Teacher Relationship Specialty Start Date End Date Mena Vernon MD [address] [facility] [place] [address] PCP - General Internal Medicine 05/13/13 Deepti Redd, FUELER.HVAC/R INSTRUCTOR [address] [facility] [place] [address] [facility] 02/16/24 Karol Vergara APRN.BONING ROOM WORKER [address] [place] [address] [facility] 02/16/24 Plant Taxonomy Teacher Relationship Specialty Start Date End Date Mena Vernon MD [address] [place] [address] PCP - General Internal Medicine 05/13/13 Deepti Redd, FUELER.HVAC/R INSTRUCTOR [address] [place] [address] [facility] 02/16/24 Karol Vergara APRN.BONING ROOM WORKER [address] [place] [address] [facility] 02/16/24 Plant Taxonomy Teacher Relationship Specialty Start Date End Date Mena Vernon MD [address] [place] [address] PCP - General Internal Medicine 05/13/13 Deepti Redd, FUELER.HVAC/R INSTRUCTOR [address] [place] [address] [facility] 02/16/24 Karol Vergara APRN.BONING ROOM WORKER [address] [place] [address] [facility] 02/16/24 Plant Taxonomy Teacher Relationship Specialty Start Date End Date Mena Vernon MD [address] [place] [address] PCP - General Internal Medicine 05/13/13 Deepti Redd, FUELER.HVAC/R INSTRUCTOR [address] [place] [address] [facility] 02/16/24 Karol Vergara FUELER.BONING ROOM WORKER [address] [place] [address] [facility] 02/16/24 Team Status: Active Member Role Status Dates Dr. Mena Vernon MD Primary Care Provider Active Start: July 04, 2024 Dr. Gavin Alford DO Emergency Provider Active Start : July 04, 2024 Dr. Juan Hdez MD Admit Provider Active Sta rt: July 04, 2024 Dr. Juan Hdez MD Attending Provider Active Start: July 04, 2024 Team Status: Active Member Role Status Dates Dr. Mena Vernon MD Primary Care Provider Active Start: July 05, 2024 Dr. Gavin Alford DO Emergency Provider Active Start : July 05, 2024 Dr. Juan Hdez MD Admit Provider Active Sta rt: July 05, 2024 Dr. Juan Hdez MD Other Provider Active Sta rt: July 05, 2024 Dr. Veronica Austin MD Other Provider Active S tart: July 05, 2024 Dr. Tristen Harrison DO Attending Provider Active Start: July 05, 2024 Dr. Tristen Harrison DO Other Provider Active Start: July 05, 2024 Team Status: Inactive Member Role Status Dates Dr. Mena Vernon MD Primary Care Provider Active Start: July 12, 2024 End: July 12, 2024 Dr. Tristen Harrison DO Attending Provider Active Start: July 12, 2024 End: July 12, 2024 Dr. Tristen Harrison DO Referring Provider Active Start: July 12, 2024 End: July 12, 2024 Plant Taxonomy Teacher Relationship Specialty Start Date End Date Mena Vernon MD [address] [place] [address] PCP - General Internal Medicine 05/13/13 Deepti Redd, SLADE.HVAC/R INSTRUCTOR [address] [place] [address] [facility] 02/16/24 Karol Vergara APRN.BONING ROOM WORKER [address] [place] [address] [facility] Internal Medicine 06/01/24 Plant Taxonomy Teacher Relationship Specialty Start Date End Date Mena Vernon MD [address] [place] [address] PCP - General Internal Medicine 05/13/13 Deepti Redd, FUELER.HVAC/R INSTRUCTOR [address] [place] [address] [facility] Internal Medicine 02/16/24 Karol Vergara APRN.BONING ROOM WORKER [address] [place] [address] [facility] Internal Medicine 06/01/24 INFORMATION SOURCE (unrecogn ized section and content) DATE CREATED AUTHOR 02/16/2022 [facility] DATE CREATED AUTHOR AUTHOR'S ORGANIZ ATION 11/09/2023 [facility] ([place]) DATE CREATED AUTHOR AUTHOR'S ORGANIZ ATION 07/24/2024 [facility] DATE CREATED AUTHOR AUTHOR'S ORGANIZ ATION 08/04/2024 [facility] DATE CREATED AUTHOR AUTHOR'S ORGANIZ ATION 08/09/2024 [facility] FOR RECORDS PERTAINING TO PATIENTS WHO ARE OR HAVE BEEN ENROLLED IN A CHEMICAL DEPENDENCY/SUBSTANCEABUSE PROGRAM, SOME INFORMATION MAY BE OMITTED. This clinical summary was aggregated from multiple sources. Caution should be exercised in using it in the provision of clinical care. This summary normalizes information from multiple sources, and as a consequence, information in this document may materially change the coding, format and clinical context of patient data. In addition, data may be omitted in some cases. CLINICAL DECISIONS SHOULD BE BASED ON THE PRIMARY CLINICAL RECORDS. [employer] [facility]. provides no warranty or guarantee of the accuracy or completeness of information in this document.
== END | disposition home or self-care (01) ==
PROVIDERS: PCP Internal Medicine; Referring Provider Internal Medicine Gastroenterology; Visit Provider Internal Medicine Gastroenterology
DX: R79.89 Other specified abnormal findings of blood chemistry (principal)
CPT/HCPCS: 36415; 80053; 85025; 85652; 86140

== ENCOUNTER 2024-12-03 03:07 | Emergency (ER) | payer MEDICAID, SELFPAY ==
[2024-12-03 03:07] VITALS: BP 155/92; PULSE 92; RESP 16; TEMP 36.6; O2SAT 100; BMI 39.9
[2024-12-03] MEDS: Ketorolac 30 MG/ML Syringe IV (03:37)
[2024-12-03] MEDS: 0.9% Normal Saline (1000mL) 1,000 ML 999 ML IV (03:37)
[2024-12-03 03:38] LABS: Hematocrit 39.0 % (37-47); Hemoglobin 13.0 g/dL (12.0-15.0); Immature Granulocytes Count 0.030 X10^3/uL (0.0-0.0); Mean Corp Hgb Conc 33.3 g/dL (32-36); Mean Corpuscular Volume 80.6 fL (81-99); Mean Platelet Vol. 9.9 fl (6.2-12.0); NRBC Flagged by Analyzer 0 % (0-5); Platelet Count 358 K/mm3 (150-450); RBC Distribution Width CV 15.0 % (11.6-14.6); RBC Distribution Width SD 43.5 fl (35.1-43.9); Red Blood Count 4.84 M/mm3 (4.2-5.4); White Blood Count 7.1 K/mm3 (4.4-11.0)
[2024-12-03 03:47] LABS: Color, Urine Yellow (Yellow); Glucose, Dipstick Normal (Normal); Ketone-Dipstick Negative (Negative); Leukocyte Esterase-Dipstick Negative /ul (Negative); Nitrite-Dipstick Negative (Negative); Occult Blood-Urine Negative /ul (Negative); Protein-Dipstick 15 mg/dl (Negative); Specific Gravity, Urine 1.020 (1.002-1.030); Urine Bilirubin Dipstick Negative (Negative)
[2024-12-03 03:51] LABS: Internal QC Validated? YES +Cl - CLEAR BKGD; Pregnancy, Urine Negative Negative; Record Kit Lot#,Urine Preg 0000964736; Red Blood Cells-Urine 0 SEEN /hpf (0-5)
[2024-12-03 03:57] LABS: Mucous, Urine RARE /hpf (<or=2+); Squamous Epithelial Cells - UA 10-25 SEEN /hpf (5-10)
[2024-12-03 03:59] LABS: AST(SGOT) 37 U/L (<=31); Alanine Aminotransfer ALT/SGPT 27 U/L (<=34); Albumin, Serum 4.5 g/dL (3.5-5.0); Alkaline Phosphatase 72 U/L (35-104); Anion Gap 11 (5-15); BUN 12 mg/dL (4-19); BUN/Creat Ratio 20.2 RATIO (10-20); Bilirubin, Direct 0.15 mg/dL (0.00-0.30); Calcium,Total 9.5 mg/dL (7.6-11.0); Carbon Dioxide 25.6 mmol/L (21.0-32.0); Chloride 102 mmol/L (98-108); Estimated Creatinine Clearance 148.60 ml/min (50-250); Globulin 2.3 g/dL (2.2-4.2); Glucose 89 mg/dL (70-99); Lipase 55 U/L (13-75); Potassium 3.6 mmol/L (3.3-5.1)
--- OUTSIDE RECORDS SUMMARY | 2024-12-03 04:23 | XMS RPT_ITS | CCD ---
Author Organization [facility] Care Team Providers Care Ballistics Teacher Name Role Phone Mena Vernon MD Primary Care Provider Mena Vernon MD Primary Care Provider Mauricio CASTAÑEDA, Jaylan Unavailable JOANIE, VENITA R Attending Unavailable SELF, SELF Referring Unavailable MENA VERNON Primary Care Unavailable JOANIE, VENITA R Referring Unavailable JOANIE, VENITA R Attending Unavailable PHILIPAMPJOSEPH, MENA Primary Care Unavailable JOANIE, VENITA R Attending Unavailable PHILIPAMPJOSEPH, MENA Primary Care Unavailable JOANIE, VENITA R Referring Unavailable Mena Vernon MD Primary Care Provider Mena Vernon MD Primary Care Provider SAULO CASTAÑEDA, DR SAN Primary Care Physician DIEGO FOX MD Attending Unavail able SAULO CASTAÑEDA, DR SAN Primary Care Unavailable DIEGO FOX MD Attending Unavail able SAULO CASTAÑEDA, DR SAN Primary Care Unavailable Redd MECHANICAL OPERATOR.INFORMATION BROKER, Deepti Unavailable Jai MECHANICAL OPERATOR.GREEN CHAIN MARKER, Karol Unavailable Jai MECHANICAL OPERATOR.GREEN CHAIN MARKER, Karol Unavailable Dr. Mena Vernon MD Primary Care Provider Dr. Gavin Alford DO Emergency Provider Lemuel CASTAÑEDA, Dr. Martinez Admit Provider Lemuel CASTAÑEDA, Dr. Martinez Attending Provider Lemuel CASTAÑEDA, Dr. Martinez Other Provider Norman CASTAÑEDA, Dr. Martin Other Provider Hunter KING, Dr. Ramon Attending Provider Norman CASTAÑEDA, Dr. Martin Attending Provider Dr. Tristen Harrison DO Other Provider [phone] Hunter KING, Dr. Ramon Referring Provider Jai MECHANICAL OPERATOR.GREEN CHAIN MARKER, Karol Unavailable Hunter KING, Dr. Ramon Referring Provider Saulo CASTAÑEDA, Dr. Mena Valenzuela Referring Provider Bruna KING, Dr. Hill Attending Provider Bruna KING, Dr. Hill Referring Provider Talampas, Mena D Primary Care Unavailable Provider, Ed Physician Attending Unavailab le Talampas, Mena D Primary Care Unavailable Tristen Harrison Attending Unavailable Lemuel, Juan Admitting Unavailable Robotham, Veronica Consulting Unavailable Lemuel, Juan Consulting Unavailable Talampas, Mena D Primary Care Unavailable Lemuel, Juan Attending Unavailable Lemuel, Juan Admitting Unavailable Robotham, Veronica Consulting Unavailable Lemuel, Juan Consulting Unavailable Tristen Harrison Referring Unavailable Norman, Veronica Attending Unavailable Tristen Harrison Consulting Unavailable Tristen Harrison Attending Unavailable Talampas, Mena D Referring Unavailable Talampas, Mena D Primary Care Unavailable Sergio Mcfarland Attending Unavailable Tristen Harrison Attending Unavailable Tristen Harrison Referring Unavailable Talampas, Mena D Primary Care Unavailable Talampas, Mena D Primary Care Unavailable Sergio Mcfarland Attending Unavailable Sergio Mcfarland Referring Unavailable Redd MECHANICAL OPERATOR.INFORMATION BROKER, Deepti Unavailable JAYLAN SYED Attending Unavailable TALAMPAS, MENA D Primary Care Unavailable TALAMPAS, MENA D Primary Care Unavailable TALAMPAS, MENA D Attending Unavailable TALAMPAS, MENA D Primary Care Unavailable TALAMPAS, MENA D Attending Unavailable TALAMPAS, MENA D Primary Care Unavailable TALAMPAS, MENA D Referring Unavailable TALAMPAS, MENA D Primary Care Unavailable Allergies Allergy Classification Reported Allergen(s) Allergy Type Date of Onset Reaction(s) Facility (20 sources) Seasonal allergy; Translations: [SEASONAL ALLERGIES] Propensity to adverse reactions 07-20-19 16 Other: See Comments [facility] (8 sources) Amphetamine aspartate / Amphetamine Sulfate / Dextroamphetamine saccharate / Dextroamphetamine Sulfate; Translations: [DEXTROAMPHETAMINE-A MPHETAMINE] Drug Allergy 05-25-19 Diarrhea [facility] (10 sources) metFORMIN; Translations: [METFORMIN] Drug Allergy 07-05-19 Diarrhea [facility] (1 source) metFORMIN Drug Allergy 07-05-19 [facility] Repository Medications Current Medications Medication Drug Class(es) Dates Sig (Normalized) Sig (Original) amphetamine aspartate 7.5 mg / amphetamine sulfate 7.5 mg / dextroamphetamine saccharate 7.5 mg / dextroamphetamine sulfate 7.5 mg oral tablet (20 sources) Central Nervous System Stimulant Start: 11-18-2024 End: 02-16-2025 take 1 tablet by mouth twice daily ADDERALL 30 mg tablet Indications: Attention deficit hyperactivity disorder (ADHD), unspecified ADHD type Take 1 tablet by mouth two times a day for 30 days. Patient should start on January 17, 2025. 60 tablet 01/17/2025 02/16/2025 Active Start: 07-04-2024 End: 07-04-2024 take 1 tablet by mouth every four to six hours Dextroamphetamine-Amphetamine (Adderall) 30 mg tablet Discontinued 30 mg PO TWICE A DAY July 04, 2024 12:00am July 04, 2024 9:45am administer doses at least 4-6 hours apart Start: 01-08-2023 End: 02-07-2023 take 1 capsule by mouth once daily amphetamine-dextroamphetamine XR (ADDERA LL XR) 30 mg capsule Indications: Attention deficit hyperactivity disorder (ADHD), unspecified ADHD type Take 1 capsule by mouth once daily for 30 days. Midday as directed 30 capsule 0 01/08/2023 01/24/2023 Discontinued Start: 12-26-2021 End: 12-31-2021 take 1 capsule by mouth once daily amphetamine-dextroamphetamine XR (ADDERA LL XR) 30 mg 24 hr capsule Indications: Attention deficit hyperactivity disorder (ADHD), unspecified ADHD type Take 1 capsule by mouth once daily for 30 days. 30 capsule 0 12/26/2021 12/31/2021 Discontinued Start: 11-08-2021 End: 01-24-2023 take 1 tablet by mouth once daily in the morning ADDERALL 30 mg tablet Indications: Atten tion deficit hyperactivity disorder (ADHD), unspecified ADHD type Take 1 tablet by mouth once daily for 30 days. In AM 30 tablet 0 12/09/2022 01/24/2023 Discontinued Start: 04-25-2021 End: 11-15-2024 take 1 tablet by mouth twice daily ADDERALL 30 mg tablet Indications: Atten tion deficit hyperactivity disorder (ADHD), unspecified ADHD type Take 1 tablet by mouth two times a day for 30 days. Patient should start on September 27, 2024. 60 tablet 09/27/2024 11/15/2024 Discontinued Start: 08-25-2017 End: 01-21-2019 take 1 [...] ryan th twice daily for 30 days. May fill October 17, 2021. Take 1 tablet by ryan twice daily for 30 days. Do not start before January 30, 2022. Take 1 tablet by ryan twice daily [...] April 27, 2023. Take 1 tablet by ryan th two times a day for 30 days. Do not start before May 27, 2023. Take 1 tablet by ryan th two times a day for 30 days. Do not start before June 26, 2023. fluconazole 150 mg oral tablet (3 sources) Azole Antifungal Start: End: take 1 tablet by mouth once fluconazole [...] Comment on above: Take 1 tablet by rayn th one time only for 1 dose. ketotifen 0.25 mg/ml ophthalmic solution (3 sources) Histamine-1 Receptor Inhibitor Start: ketotifen fumarate (ALAWAY) 0.025 % (0.035 %) ophthalmic solution Indications: Seasonal allergic conjunctivitis Use 2 drops in both eyes two times a day. 10 mL 11 07/28/2024 Active labetalol hydrochloride 100 mg oral tablet (1 [...] Comment on above: Take 1 capsule by [facility] once daily for 7 days, THEN 3 capsules once daily for 7 days. Take one capsule bekah ly Do not start before August 08, 2021. Take 1 capsule by [facility] once daily for 7 days. Do not start before August 01, 2021. Take 1 capsule by [facility] once daily for 30 days. Do not start before August 14, 2021. Take 1 capsule by [facility] once daily for 30 days. lisinopril 5 mg oral tablet (20 sources) Angiotensin Converting Enzyme Inhibitor Start: 4 End: 5 take 1 tablet by mouth once daily lisinopril (ZESTRIL) 5 mg tablet Take 1 tablet by mouth once daily. 90 tablet 3 04/19/2024 Active Comment on above: Take 1 tablet by [facility] once daily. Multiple Vitamin (multivitamin) capsule (3 sources) take 1 capsule by mouth once daily Multiple Vitamin (multivitamin) capsule Take 1 capsule by mouth daily. 0 Active MULTIVITAMIN ORAL (11 sources) MULTIVITAMIN ORA L Take by mouth. Active MULTIVITAMIN ORA L Take by mouth. 0 Active Comment on above: Take by mouth. Multivitamin preparation (2 sources) Start: 11-09-19 take 1 tablet by mouth once daily Multivitamin Active 1 TABLET PO DAILY November 08, 2021 12:00am Multivitamin Tablet (5 sources) Start: 11-09-19 Multivitamin Tablet Active 1 {tbl} PO DAILY November 08, 2021 12:00am ondansetron 4 mg disintegrating oral tablet (1 source) Serotonin-3 Receptor Antagonist Start: 07-28-19 take 4 mg by mouth every eight hours Ondansetron Active 4 MG PO Q8H July 27, 2021 3:42pm pantoprazole 40 mg delayed release oral tablet (1 source) Proton Pump Inhibitor Start: 07-28-19 take 1 tablet by mouth once daily Pantoprazole (Protonix) 40 mg tablet,delayed release (DR/EC) Active 40 MG PO DAILY July 27, 2021 3:42pm Multivitamin Tablet (1 source) Start: 01-19-20 Multivitamin Tablet Active January 18, 2019 5:36pm propylene glycol 6 mg/ml ophthalmic solution (3 sources) Start: 07-29-19 propylene glycoL, PF, (SYSTANE COMPLETE PF) 0.6 % drop Indications: Seasonal allergic conjunctivitis Use 1 drop in eyes as needed (dry eyes). 10 mL 11 07/28/2024 Active Completed/Discontinued Medications Medication Drug Class(es) Dates Sig (Normalized) Sig (Original) amoxicillin 875 mg / clavulanate 125 mg oral tablet (2 sources) Penicillin-class Antibacterial Start: 04-14-2024 End: 04-19-2024 take 1 tablet by mouth twice daily amoxicillin-clavul anate potassium (AUGMENTIN) 875-125 mg per tablet Take 1 tablet by mouth two times a day for 5 days. 10 tablet 04/14/2024 04/19/2024 Discontinued benzonatate 100 mg oral capsule (20 sources) Non-narcotic Antitussive Start: 04-14-2024 End: 07-21-2024 take 2 capsules by mouth three times [...] on above: Take 2 capsules by m outh three times a day as needed. clindamycin 0.01 mg/mg topical gel (9 sources) Lincosamide Antibacterial Start: 04-30-19 End: 11-01-19 clindamycin (CLEOCIN-T) 1 % gel Apply to affected area twice daily. 30 g 0 04/30/2021 10/31/2021 Discontinued Comment on above: Apply to affected ar ea twice daily. doxycycline monohydrate 100 mg oral capsule (6 sources) Tetracycline-class Drug Start: 06-23-19 End: 07-05-19 take 1 capsule by mouth twice daily Doxycycline Monohydrate 100 mg capsule Discontinued 100 mg PO TWICE A DAY June 22, 2022 12:00am July 04, 2024 9:44am drospirenone / Ethinyl Estradiol (15 sources) Progestin, Estrogen Start: 12-25-19 End: 10-03-19 take 1 tablet by mouth once daily Drospirenone-Ethinyl Estradiol (YANIRA, 28,) 3-0.02 mg per tablet Take 1 tablet by mouth once daily. 28 tablet 11 12/24/2022 10/03/2023 Discontinued Start: 12-24-2022 take 1 tablet by ryan th once daily Drospirenone-Ethinyl Estradiol (YANIRA, 28,) 3-0.02 mg per [...] tablet (2 sources) Start: 04-14-19 End: 04-19-19 25 take 2 tablets by mouth twice daily guaiFENesin (MUCINEX) 600 mg 12 hr tablet Take 2 tablets by mouth two times a day. 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; [...] cholangitis] Onset: 07-28-2024 Chronic Biliary tract disease (18 sources) Acute angiocholecystitis; Translations: [Acute cholecystitis] Onset: [...] adolescence] Onset: 03-28-2014 03-28-2014 Chronic Essential hypertension (3 sources) Essential hypertension; Translations: [Essential (primary) hypertension] 04-22-2023 Chronic Menstrual disorders (2 sources) Menorrhagia; Translations: [Excessive and frequent menstruation with regular cycle] Chronic Nausea and vomiting (1 source) Nausea; Translations: [Nausea] Episodic Nonmalignant breast conditions (12 sources) Pain of breast; Translations: [Mastodynia] Onset: 02-15-2022 Episodic Nutritional deficiencies (1 source) Iron deficiency; Translations: [Iron deficiency] 11-13-2023 Episodic Other aftercare (1 source) Long-term current use of drug therapy; Translations: [Other intermediate (current) drug therapy] 04-19-2024 Episodic Other endocrine [...] Translations: [Abnormal weight gain] 10-22-2022 Episodic Other skin disorders (2 sources) Acne vulgaris; Translations: [Acne vulgaris] Episodic Other skin disorders (1 source) Hirsutism; Translations: [Hirsutism] 10-22-2022 Episodic Other upper respiratory infections (4 sources) Acute upper respiratory infection; Translations: [Acute upper respiratory infection, unspecified] Episodic Skin and subcutaneous tissue infections (6 sources) Eruption; Translations: [Pyoderma] 06-22-2022 Episodic Spondylosis; intervertebral disc disorders; other back problems (1 source) Thoracic radiculopathy; Translations: [Radiculopathy, thoracic region] 04-19-2024 Episodic Unclassified (1 source) Obesity, Class II, BMI 35-39.9; Translations: [Obesity, Class II, BMI 35-39.9] Onset: 10-10-2021 Past or Other Problems Problem Classification Problem Date Documented Da te Episodic/Chronic Abdominal pain (20 sources) Epigastric pain; Translations: [Epigastric pain] Onset: 01-12-2010 Resolved: 03-24-2013 03-24-2013 Episodic Cancer of cervix (20 sources) Atypical squamous [...] 04-19-2024 Episodic Genitourinary symptoms and ill-defined conditions (20 sources) Urinary incontinence; Translations: [Unspecified urinary incontinence] Onset: 12-10-2012 Resolved: 10-13-2015 10-13-2015 Chronic Hemorrhage during ; abruptio placenta; placenta previa (20 sources) Threatened miscarriage; Translations: [Threatened ] Onset: 01-12-2010 Resolved: 08-26-2010 08-26-2010 Episodic Hypertension complicating ; childbirth and the puerperium (20 sources) Elevated blood pressure; Translations: [Unspecified maternal hypertension, third trimester] Onset: 04-18-2016 Resolved: 05-21-2016 05-21-2016 Chronic Immunizations and screening for infectious disease (1 source) Encounter for screening for human papillomavirus (HPV); Translations: [Encounter for screening for human papillomavirus (HPV)] Onset: 07-21-2024 Episodic Inflammation; infection of eye (except that caused by tuberculosis or sexually transmitteddisease) (1 source) Acute atopic conjunctivitis, unspecified eye; Translations: [Seasonal allergic conjunctivitis] Onset: 07-28-2024 Episodic Mood disorders (3 sources) Mood disorders Onset: 02-15-2022 02-15-2022 Other aftercare (1 source) Other parts counterman (current) drug therapy; Translations: [Encounter for long-term current use of medication] Onset: 04-19-2024 Episodic Other complications of (20 sources) High risk ; Translations: [Supervision of other high risk pregnancies, first trimester] Onset: 02-19-2010 Resolved: 01-29-2019 01-29-2019 Episodic Other complications of (20 sources) Urinary tract infection in ; Translations: [...] eyes] Onset: 07-10-2022 Episodic Other gastrointestinal disorders (20 sources) Diarrhea; Translations: [Diarrhea, unspecified] Onset: 01-12-2010 Resolved: 03-24-2013 03-24-2013 Episodic Other and delivery including normal (20 sources) Normal in primigravida; Translations: [Encounter for supervision of normal first , unspecified trimester] Onset: 01-12-2010 Resolved: 02-19-2010 02-19-2010 Episodic Other screening for suspected conditions (not mental disorders or infectious disease) (14 sources) Other specified abnormal findings of blood chemistry; Translations: [Elevated liver function tests] Onset: 07-21-2024 07-05-2024 Episodic Residual codes; unclassified (20 sources) History of gestational hypertension; Translations: [Personal history of other complications of , childbirth and the puerperium] Onset: 06-04-2018 06-04-2018 Episodic Screening and history of mental health and substance abuse codes (20 sources) H/O: depression; Translations: [Personal history of other mental and behavioral disorders] Onset: 06-04-2018 06-04-2018 Episodic Results Test Name Value Interpretation Reference Range Facility [facility] 11-09-2024 [facility] Telephone (INTMWS) MEIRSIXTOLIUDMILA E ([id number]) 1985 F Date Time Provider Department 11/09/24 MENA VERNON [facility] During your visit today, we recorded the following information about you: Edelmira Baugh LPN 11/09/2024 5:00 PM Signed Patients (Thien Worley) drops off FMLA form for . Form states that they need to be completed by 11/12/24. Patient is aware that provider is out until 11/12/24. Forms at nurse's desk Closed in error Annabelle Bolaños LPN 11/11/2024 2:37 PM Signed Liudmila calling left FMLA forms to be completed has to deal with her Thien. She said forms are due on 11/12/2024. Advised PCP has been out of the office and returns 11/12. Please advise Mena Vernon MD 11/11/2024 4:11 PM Addendum Verify form is in the office. Can she do a Virtual Visit so can make sure enter correct dates and such on 11/12/24 (can put moonlighing slot 20 min at noon and appointment sometime between 12 and 1 depending on how morning goes)? Or does the form need sent in today? If needs done today, can she do a virtual visit today still? If so, can someone add a moonlighting slot, 20 minutes slot? Someone can text me if/when this is done in case I am not still online. Annabelle Bolaños LPN 11/11/2024 4:32 PM Signed Phoned patient and scheduled her for virtual visit with Dr Vernon at 1120 am. Advised to get her pre visit questions done and she said she has done virtual visit before. Allergies As of Date: 11/09/2024 Noted Allergy Reaction DEXTROAMPHETAMINE-AMP HETAMINE 05/24/2024 6 - Diarrhea METFORMIN 07/04/2024 6 - Diarrhea SEASONAL ALLERGIES 07/20/2015 14 - Other: See Comments Date Reviewed: 07/21/2024 Reviewed by: Jaylan Syed MD - Fully Assessed Reason for Visit: FMLA form [Other] Prescriptions as of 11/11/2024 - propylene glycoL, PF, (SYSTANE COMPLETE PF) 0.6 % drop Use 1 drop in eyes as needed (dry eyes). - ketotifen fumarate (ALAWAY) 0.025 % (0.035 %) ophthalmic solution Use 2 drops in both eyes two times a day. - ADDERALL 30 mg tablet Take 1 tablet by mouth two times a day for 30 days. Patient should start on July 29, 2024. - ADDERALL 30 mg tablet Take 1 tablet by mouth two times a day for 30 days. Patient should start on August 28, 2024. - ADDERALL 30 mg tablet Take 1 tablet by mouth two times a day for 30 days. Patient should start on September 27, 2024. - MULTIVITAMIN ORAL Take by mouth. - lisinopril (ZESTRIL) 5 mg tablet Take 1 tablet by mouth once daily. - ADDERALL 30 mg tablet Take 1 tablet by mouth two times a day for 30 days. Patient should start on June 15, 2024. 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] 01/08/2023 Encounter Status:Closed by EDELMIRA BAUGH on 11/09/24 Normal [facility] Absolute lymphocyte countOrd ered By: Sergio Friend on 08-10-2024 Lymphocytes Auto (Unsp spec) [#/Vol] 1.20 10*3/uL 0.83-4.51 [facility] Absolute neutrophil countOrd ered By: Sergio Friend on 08-10-2024 Neutrophils (Bld) [#/Vol] 2.9 10*3/uL 2.0-7.7 [facility] Anion gap in Serum or Plasma Ordered By: Sergio Mcfarland on 08-10-2024 Anion gap [Moles/Vol] 9 mmol/L 5-15 [facility] Automated lymphocyte count a s percentage of total leukocytesOrdered By: Sergio Friend on 08-10-2024 Lymphocytes/100 WBC Auto (Unsp spec) 25.5 % 19- [facility] BUN/creatinine ratioOrdered By: Sergio Friend on 08-10-2024 Urea nitrogen/Creatinine [Mass ratio] 16.5 mg/mg 10-20 [facility] Basophil percentageOrdered B y: Sergio Friend on 08-10-2024 Basophils/100 WBC (Bld) 0.6 % 0-1 [facility] Bilirubin, totalOrdered By: Sergio Friend on 08-10-2024 Bilirubin [Mass/Vol] 0.39 mg/dL 0.00-1.30 [facility] CBC W/Diff, Automatedon Absolute Lymph 1.20 X10 3/uL Normal 0.83-4.51 [facility] Comment on above: Performed By: #### L 500.2500, L501.2450, L500.3400, L100.0100 #### [facility] [address] [place], [address] Absolute Neut 2.9 X10 3/uL Normal 2.0-7.7 [facility] Comment on above: Performed By: #### L 500.2500, L501.2450, L500.3400, L100.0100 #### [facility] [address] [place], [address] Basophils/100 WBC (Bld) 0.6 % Normal 0-1 [facility] Comment on above: Performed By: #### L 500.2500, L501.2450, L500.3400, L100.0100 #### [facility] [address] [place], [address] Eosinophils/100 WBC (Bld) 2.3 % Normal 0-5 [facility] Comment on above: Performed By: #### L 500.2500, L501.2450, L500.3400, L100.0100 #### [facility] [address] [place], [address] Erythrocyte distribution width (RBC) [Ratio] 15.5 % High 11.6-14.6 [facility] Comment on above: Performed By: #### L 500.2500, L501.2450, L500.3400, L100.0100 #### [facility] [address] [place], [address] Hematocrit (Bld) [Volume fraction] 37.0 % Normal 37-47 [facility] Comment on above: Performed By: #### L 500.2500, L501.2450, L500.3400, L100.0100 #### [facility] [address] [place], [address] Hemoglobin (Bld) [Mass/Vol] 12.1 g/dL Normal 12.0-15. 0 [facility] Comment on above: Performed By: #### L 500.2500, L501.2450, L500.3400, L100.0100 #### [facility] [address] [place], [address] IG% 0.200 Normal 0.0-0.9 [facility] Comment on above: Result Comment: IG% - Immature Granulocytes (promyelocytes, myelocytes and metamyelocytes) > 1% indicates that a LEFT SHIFT is Present. Performed By: #### L 500.2500, L501.2450, L500.3400, L100.0100 #### [facility] [address] [place], [address] Lymphocytes/100 WBC (Bld) 25.5 % Normal 19-41 [facility] Comment on above: Performed By: #### L 500.2500, L501.2450, L500.3400, L100.0100 #### [facility] [address] [place], [address] MCH (RBC) [Entitic mass] 25.9 pg Low 27.0-32.0 [facility] Comment on above: Performed By: #### L 500.2500, L501.2450, L500.3400, L100.0100 #### [facility] [address] [place], [address] MCHC (RBC) [Mass/Vol] 32.7 g/dL Normal 32-36 [facility] Comment on above: Performed By: #### L 500.2500, L501.2450, L500.3400, L100.0100 #### [facility] [address] [place], [address] MCV (RBC) [Entitic vol] 79.1 fL Low 81-99 [facility] Comment on above: Performed By: #### L 500.2500, L501.2450, L500.3400, L100.0100 #### [facility] [address] [place], [address] Monocytes/100 WBC (Bld) 10.6 % High 0-10 [facility] Comment on above: Performed By: #### L 500.2500, L501.2450, L500.3400, L100.0100 #### [facility] [address] [place], [address] Neutrophils/100 WBC (Bld) 60.8 % Normal 47-70 [facility] Comment on above: Performed By: #### L 500.2500, L501.2450, L500.3400, L100.0100 #### [facility] [address] [place], [address] Nucleated RBC (Bld) [#/Vol] 0 10*3/uL Normal 0-5 [facility] Comment on above: Performed By: #### L 500.2500, L501.2450, L500.3400, L100.0100 #### [facility] [address] [place], [address] Platelet mean volume (Bld) [Entitic vol] 9.9 fL Normal 6.2-12.0 [facility] Comment on above: Performed By: #### L 500.2500, L501.2450, L500.3400, L100.0100 #### [facility] [facility] [address] [place], [address] Platelets (Bld) [#/Vol] 334 10*3/uL Normal 150-450 [facility] Comment on above: Performed By: #### L 500.2500, L501.2450, L500.3400, L100.0100 #### [facility] [address] [place], [address] RBC (Bld) [#/Vol] 4.68 10*6/uL Normal 4.2-5.4 [facility] Comment on above: Performed By: #### L 500.2500, L501.2450, L500.3400, L100.0100 #### [facility] [address] [place], [address] RDW SD 44.4 fl High 35.1-43.9 [facility] Comment on above: Performed By: #### L 500.2500, L501.2450, L500.3400, L100.0100 #### [facility] [address] [place], [address] WBC (Bld) [#/Vol] 4.7 10*3/uL Normal 4.4-11.0 [facility] Comment on above: Performed By: #### L 500.2500, L501.2450, L500.3400, L100.0100 #### [facility] [address] [place], [address] CRPon 08-10-2024 C-REACTIVE PROT 3.64 mg/L High 0.0-3.0 [facility] Comment on above: Performed By: #### L 500.2500, L501.2450, L500.3400, L100.0100 #### [facility] [address] [place], [address] Carbon dioxide, total [Moles /volume] in Central venous bloodOrdered By: Sergio Friend on 08-10-2024 CO2 [Moles/Vol] 23.7 mmol/L 21.0-32.0 [facility] Chloride assayOrdered By: Ra dotson Friend on 08-10-2024 Chloride [Moles/Vol] 105 mmol/L 98-108 [facility] Comprehensive Metabolic Prof ilon 08-10-2024 Albumin [Mass/Vol] 4.5 g/dL Normal 3.5-5.0 [facility] Comment on above: Performed By: #### L 500.2500, L501.2450, L500.3400, L100.0100 #### [facility] [address] [place], [address] Albumin/Globulin [Mass ratio] 1.7 {ratio} Normal 0.9-2.4 [facility] Comment on above: Performed By: #### L 500.2500, L501.2450, L500.3400, L100.0100 #### [facility] [address] [place], [address] ALK PHOS 88 U/L Normal 35-104 [facility] Comment on above: Performed By: #### L 500.2500, L501.2450, L500.3400, L100.0100 #### [facility] [address] [place], [address] ALT [Catalytic activity/Vol] 15 U/L Normal <=34 [facility] Comment on above: Performed By: #### L 500.2500, L501.2450, L500.3400, L100.0100 #### [facility] [address] [place], [address] AST [Catalytic activity/Vol] 18 U/L Normal <=31 [facility] Comment on above: Performed By: #### L 500.2500, L501.2450, L500.3400, L100.0100 #### [facility] [address] [place], [address] Bilirubin [Mass/Vol] 0.39 mg/dL Normal 0.00-1.30 [facility] Comment on above: Performed By: #### L 500.2500, L501.2450, L500.3400, L100.0100 #### [facility] [address] [place], [address] BUN/CRE 16.5 RATIO Normal 10-20 [facility] Comment on above: Performed By: #### L 500.2500, L501.2450, L500.3400, L100.0100 #### [facility] [address] [place], [address] Calcium [Mass/Vol] 9.2 mg/dL Normal 7.6-11.0 [facility] Comment on above: Performed By: #### L 500.2500, L501.2450, L500.3400, L100.0100 #### [facility] [address] [place], [address] Chloride [Moles/Vol] 105 mmol/L Normal 98-108 [facility] Comment on above: Performed By: #### L 500.2500, L501.2450, L500.3400, L100.0100 #### [facility] [address] [place], [address] CO2 [Moles/Vol] 23.7 mmol/L Normal 21.0-32.0 [facility] Comment on above: Performed By: #### L 500.2500, L501.2450, L500.3400, L100.0100 #### [facility] [address] [place], [address] Creatinine [Mass/Vol] 0.60 mg/dL Low 0.70-1.20 [facility] Comment on above: Performed By: #### L 500.2500, L501.2450, L500.3400, L100.0100 #### [facility] [address] [place], [address] GAP 9 Normal 5-15 [facility] Comment on above: Performed By: #### L 500.2500, L501.2450, L500.3400, L100.0100 #### [facility] [address] [place], [address] GFR/1.73 sq M.predicted among non-blacks MDRD (S/P/Bld) [Vol rate/Area] 119 mL/min/{1.73_m2} Normal >60 [facility] Comment on above: Result Comment: mL/m in/1.73m2 CKD-EPI Creatinine Equation (2020) Performed By: #### L 500.2500, L501.2450, L500.3400, L100.0100 #### [facility] [address] [place], [address] Globulin (S) [Mass/Vol] 2.6 g/dL Normal 2.2-4.2 [facility] Comment on above: Performed By: #### L 500.2500, L501.2450, L500.3400, L100.0100 #### [facility] [address] [place], [address] Glucose [Mass/Vol] 94 mg/dL Normal 70-99 [facility] Comment on above: Performed By: #### L 500.2500, L501.2450, L500.3400, L100.0100 #### [facility] [address] [place], [address] Potassium [Moles/Vol] 4.4 mmol/L Normal 3.3-5.1 [facility] Comment on above: Performed By: #### L 500.2500, L501.2450, L500.3400, L100.0100 #### [facility] [address] [place], [address] Sodium [Moles/Vol] 137 mmol/L Normal 133-145 [facility] Comment on above: Performed By: #### L 500.2500, L501.2450, L500.3400, L100.0100 #### [facility] [address] [place], [address] T PROT 7.1 g/dL Normal 5.9-8.4 [facility] Comment on above: Performed By: #### L 500.2500, L501.2450, L500.3400, L100.0100 #### [facility] [address] [place], [address] Urea nitrogen [Mass/Vol] 10 mg/dL Normal 4-19 [facility] Comment on above: Performed By: #### L 500.2500, L501.2450, L500.3400, L100.0100 #### [facility] [address] [place], [address] Eosinophil percentageOrdered By: Sergio Mcfarland on 08-10-2024 Eosinophils/100 WBC (Bld) 2.3 % 0-5 [facility] Erythrocyte Sed Rateon 08-10 SED RATE 6 mm/hr Normal 0-30 [facility] Comment on above: Performed By: #### L 500.2500, L501.2450, L500.3400, L100.0100 #### [facility] [address] [place], [address] Erythrocyte distribution wid th ratioOrdered By: Sergio Mcfarland on 08-10-2024 Erythrocyte distribution width (RBC) [Ratio] 15.5 % High 11.6-14.6 [facility] Erythrocyte distribution wid th standard deviationOrdered By: Sergio Friend on 08-10-2024 Erythrocyte distribution width (RBC) [Ratio] 44.4 fl High 35.1-43.9 [facility] Erythrocyte sedimentation ra teOrdered By: Sergio Friend on 08-10-2024 ESR (Bld) [Velocity] 6 mm/h 0-30 [facility] Gastroenterology Visit Repor ton 08-10-2024 Gastroenterology Visit Report [facility] [address] [place] [address] OFFICE VISIT Date of Service: 08/10/24 MR#: [id number] Acct: [id number] Name: LIUDMILA WORLEY Rep #: [id number] : 1985 Provider: Sergio Mcfarland DO Age/Sex: 38/F [place] [facility]: Signed Intake Vital Signs 07/05/24 11:05 Height 5 ft 2 in Weight: 218 lb 14.704 oz BMI 40.0 Intake Visit Reasons: Abnormal test results Allergies metformin Adverse Reaction (Verified 07/04/24 11:01) Diarrhea Medications ???Medication ???Instructions ???Recorded ???Confirmed ???Type dextroamphetamine-amp hetamine 30 30 mg PO 0800,1200 11/08/21 History mg tablet (Adderall) multivitamin 1 tab PO DAILY 11/08/21 08/10/24 H istory lisinopril 5 mg tablet 5 mg PO DAILY 07/04/24 08/10/24 Hi story PFSH Medical History Wears glasses Depression Anxiety Alcohol use Migraine headache Former smoker Hypertension Hx of vaginal delivery ADHD Surgical History History of tonsillectomy and adenoidectomy Family History no significant family his Social History (Updated 08/10/24 @ 09:23 by Zoey Tang) household members: spouse Smoking Status: Former smoker alcohol intake: current alcohol intake frequency: holidays/special occasions only substance use type: does not use HPI HPI Details: LIUDMILA BENCHOFF, is a 38 F who presents to the office today for hospital follow up. [facility] hospitalization 07.04.24 - 07.06.24 abd pain - GI consulted for acute cholecystitis gall bladder US 07.04.24 Cholelithiasis without sonographic evidence of acute cholecystitis. abd/pelvis CT 07.05.24 Nondistended gallbladder with appearance of edema, gallbladder fossa fluid for example coronal 49 concerning for possible cholecystitis, clinically correlate. No evidence of biliary ductal dilation. Small amount of left lower quadrant and pelvic free fluid. *BGI established 6.3.25 pt reports that she is feeling well overall and denies GI symptoms of concern at this time. Pt reports she is here to review test results and lab work. ROS Const Constitutional: No fatigue, fever(s) or weight change ENT ENT: No difficulty swallowing Gastro GI: No abdominal pain, belching, bloating, change in bowel habits, change in stool character, coffee ground emesis, constipation, cramping, diarrhea, heartburn, difficulty swallowing, feeling full early, excessive flatus, incontinent of stools, Vomiting blood/hematemesis, Blood in stool, loose stools, Black,tarry stools, nausea/dyspepsia, pain with swallowing, vomiting or other Musc Musculoskeletal: No joint pain Skin Skin: No yellowing of the eye or itchy eyes Psych Psychiatric: Positive for anxiety and Positive for depression Endo Endocrine: No fatigue or weight change Aller/Imm Allergy/Immunologic: No itchy eyes Cristian/Lymp Hematologic/Lymphatic : No easy bleeding or easy bruising Exam Const General: cooperative, healthy appearing and comfortable Nutritional Appearance: average body habitus Eyes Sclera: sclerae normal Resp Effort Inspection: normal respiratory effort Auscultation: Bilateral: Clear to Auscultation Cardio Rate: regular rate Rhythm: regular rhythm GI Inspection: normal to inspection Auscultation: normal bowel sounds Percussion: normal to percussion Palpation: no hepatosplenomegaly Rectal Exam: deferred Assessment and Plan Assessment and Plan (1) Elevated LFTs: Status: Acute Plan: Patient is a 38-year-old female who presented to [facility] ED on 07/04/2024 with RUQ abdominal pain. RUQ abdominal pain with elevated LFTs ???Initially seemed consistent with acute cholecystitis. However, gallbladder [...] is a possibility. Significant lab workup sent. LFT's are improving. Repeat liver enzymes and refer to surgery for cholecystectomy. Orders: Orders CBC W/Diff, Automated Today R79.89 - Other specified abnormal findings of blood chemistry CRP Today R79.89 - Other specified abnormal findings of blood chemistry Erythrocyte Sed Rate Today R79.89 - Other specified abnormal findings of blood chemistry Comprehensive Metabolic Profil Today R79.89 - Other specified abnormal findings of blood chemistry Coding Level of Care Code Off vis,est,level 4 Diagnoses Elevated LFTs R79.89 (more content not included)... Normal [facility] Glomerular filtration rate ( GFR) estimation/1.73 sq m using serum, plasma, or whole bOrdered By: Sergio Mcfarland on 08-10-2024 GFR/1.73 sq M.predicted among non-blacks MDRD (S/P/Bld) [Vol rate/Area] 119 mL/min/{1.73_m2} >60 [facility] Comment on above: mL/min/1.73m2 CKD-EP I Creatinine Equation (2020) Hematocrit Auto (Bld) [Volum e fraction]Ordered By: Sergio Mcfarland on 08-10-2024 Hematocrit (Bld) [Volume fraction] 37.0 % 37-47 [facility] Hemoglobin measurementOrdere d By: Sergio Mcfarland on 08-10-2024 Hemoglobin (Bld) [Mass/Vol] 12.1 g/dL 12.0-15. 0 [facility] Immature granulocytes/100 WB C Auto (Bld)Ordered By: Sergio Mcfarland on 08-10-2024 Immature granulocytes/100 WBC (Bld) 0.200 % 0.0-0.9 [facility] Comment on above: IG% - Immature Granu locytes (promyelocytes, myelocytes and metamyelocytes) > 1% indicates that a LEFT SHIFT is Present. Laboratory - Chemistry and C hemistry - challengeOrdered By: Sergio Mcfarland on 08-10-2024 AST [Catalytic activity/Vol] 18 U/L <32 [facility] MCV (mean corpuscular volume ) determinationOrdered By: Sergio Mcfarland on 08-10-2024 MCV (RBC) [Entitic vol] 79.1 fL Low 81-99 [facility] Mean corpuscular hemoglobin (MCH) determinationOrdered By: Sergio Mcfarland on 08-10-2024 MCH (RBC) [Entitic mass] 25.9 pg Low 27.0-32.0 [facility] Mean corpuscular hemoglobin concentration (MCHC) determinationOrdered By: Sergio Mcfarland on 08-10-2024 MCHC (RBC) [Mass/Vol] 32.7 g/dL 32-36 [facility] Mean platelet volume determi nationOrdered By: Sergio Mcfarland on 08-10-2024 Platelet mean volume (Bld) [Entitic vol] 9.9 fL 6.2-12.0 [facility] Monocyte percentageOrdered B y: Sergio Mcfarland on 08-10-2024 Monocytes/100 WBC (Bld) 10.6 % High 0-10 [facility] Neutrophil percentageOrdered By: Sergio Mcfarland on 08-10-2024 Neutrophils/100 WBC (Bld) 60.8 % 47-70 [facility] Nucleated red blood cell per centageOrdered By: Sergio Mcfarland on 08-10-2024 Nucleated RBC/100 WBC (Bld) [Ratio] 0 % 0-5 [facility] Platelet countOrdered By: Ra nila Mcfarland on 08-10-2024 Platelets (Bld) [#/Vol] 334 10*3/uL 150-450 [facility] Potassium measurement (mass/ volume)Ordered By: Sergio Mcfarland on 08-10-2024 Potassium (Unsp spec) [Mass/Vol] 4.4 mmol/L 3.3-5.1 [facility] RBC Auto (Bld) [#/Vol]Ordere d By: Sergio Mcfarland on 08-10-2024 RBC (Bld) [#/Vol] 4.68 10*6/uL 4.2-5.4 [facility] Serum creatinine measurement (mass/volume)Ordered By: Sergio Mcfarland on 08-10-2024 Creatinine [Mass/Vol] 0.60 mg/dL Low 0.70-1.20 [facility] Serum globulin measurementOr dered By: Sergio Mcfarland on 08-10-2024 Globulin (S) [Mass/Vol] 2.6 g/dL 2.2-4.2 [facility] Serum glucose measurement (m ass/volume)Ordered By: Sergio Mcfarland on 08-10-2024 Glucose [Mass/Vol] 94 mg/dL 70-99 [facility] Serum or plasma C reactive p rotein measurement (mass/volume)Ordered By: Sergio Mcfarland on 08-10-2024 CRP [Mass/Vol] 3.64 mg/L High 0.0-3.0 [facility] Serum or plasma alanine wilde otransferase (ALT) measurementOrdered By: Sergio Mcfarland on 08-10-2024 ALT [Catalytic activity/Vol] 15 U/L <35 [facility] Serum or plasma albumin brian urement (mass/volume)Ordered By: Sergio Mcfarland on 08-10-2024 Albumin [Mass/Vol] 4.5 g/dL 3.5-5.0 [facility] Serum or plasma albumin/glob ulin mass ratioOrdered By: Sergio Mcfarland on 08-10-2024 Albumin/Globulin [Mass ratio] 1.7 {ratio} 0.9-2.4 [facility] Serum or plasma alkaline eduardo sphatase measurementOrdered By: Sergio Mcfarland on 08-10-2024 ALP [Catalytic activity/Vol] 88 U/L 35-104 [facility] Serum or plasma calcium brian urement (mass/volume)Ordered By: Sergio Mcfarland on 08-10-2024 Calcium [Mass/Vol] 9.2 mg/dL 7.6-11.0 [facility] Serum or plasma urea nitroge n measurement (mass/volume)Ordered By: Sergio Mcfarland on 08-10-2024 Urea nitrogen [Mass/Vol] 10 mg/dL 4-19 [facility] Sodium levelOrdered By: Caleb Gustafson on 08-10-2024 Sodium [Moles/Vol] 137 mmol/L 133-145 [facility] Total proteinOrdered By: Edgard prescott Friend on 08-10-2024 Protein [Mass/Vol] 7.1 g/dL 5.9-8.4 [facility] White blood cell (WBC) count Ordered By: Sergio Friend on 08-10-2024 WBC (Bld) [#/Vol] 4.7 10*3/uL 4.4-11.0 [facility] CNPNon 07-23-2024 CNPN Telephone (AGGENS4) LIUDMILA WORLEY ([id number]) 1985 F Date Time Provider Department 07/23/24 PATRICIA GRIMES4 During your visit today, we recorded the following information about you: Kamron Horton 07/23/2024 11:52 AM Signed Lvm for pt [...] Encounter Status:Closed by KAMRON HORTON on 07/23/24 [facility] Maldonado 07-21-2024 CNOV Office Visit (OBGYWM ) LIUDMILA GRANT ([id number]) 1985 F Date Time Provider Department 07/21/24 [...] wasn't her gallbladder. . 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 As applicable, any other physician, advance practice provider, medical student, or other health professional student that will be observing or involved in the sensitive examination for educational or training purposes was discussed with the Patient or Authorized Software Support Specialist. The Patient or Authorized Software Support Specialist has agreed to proceed with the sensitive examination. (Sensitive examination includes inspection and/or palpation of the breasts, pelvis, prostate and anorectal regions). EXAM: BP 134/88 Ht 5' 3" (1.60m) Wt 215 lb (97.5kg) LMP 07/16/2024 [...] external genitalia normal, normal Bartholin's glands, urethra, Laurie's glands, no vulvar lesions, no cervical lesions, [...] human papillomavir (more content not included)... Normal [facility] HIGH RISK HUMAN PAPILLOMA ANGEL (HPV), PCR FOR DETECTION AND GENOTYPINGon 07-21-2024 HPV 16 Ag Ql (Unsp spec) Not detected Normal Not detected [facility] Comment on above: Order Comment: Speci men Type: BLOOD SPECIMEN Ordering Facility: [facility] Address: [address] [place] [address] Performed By: #### 2 4331-1, 2275-4, 03239-4, 21148-3 #### [facility] CLIA [id number] [address] [place] [address] [place] HPV 18 Ag Ql (Unsp spec) Not detected Normal Not detected [facility] Comment on above: Order Comment: Speci men Type: BLOOD SPECIMEN Ordering Facility: [facility] Address: [address] [place] [address] Performed By: #### 2 4331-1, 2275-4, 81026-2, 32204-6 #### [facility] CLIA [id number] [address] [place] [address] [place] HPV 31+33+35+39+45+51+52+56+58+ 59+66+68 DNA DAVID+probe Ql (Cvx) Not detected Normal Not detected [facility] Comment on above: Order Comment: Speci men Type: BLOOD SPECIMEN Ordering Facility: [facility] Address: [address] [place] [address] Result Comment: High Risk HPV Other Type includes HPV types 31, 33, 35, 39, 45, 51, 52, 56, 58, 59, 66 and 68. Performed By: #### 2 4331-1, 2275-4, 14341-6, 09157-3 #### [facility] CLIA [id number] [address] [place] [address] [place] PAP TESTon 07-21-2024 ADEQUACY Normal [facility] Comment on above: Order Comment: Speci men Type: FLUID SPECIMEN Ordering Facility: [facility] Address: [address] [place] [address] Result Comment: Sati sfactory for interpretation. Transformation zone present Performed By: #### L [id number] #### [facility] CLIA [id number] [address] [place], [place] [address] [place] CASE REPORT Normal [facility] Comment on above: Order Comment: Speci men Type: FLUID SPECIMEN Ordering Facility: [facility] Address: [address] [place] [address] Result Comment: Gyne cologic Cytology Report Case: [id number] Authorizing Provider: Jaylan Syed MD Collected: 07/21/2024 04:42 PM Ordering Location: OB/Gynecology Received: 07/22/2024 11:56 AM First Screen: Heard, [place], CT, ASCP Specimen: Pap Test, ThinPrep, Cervix Performed By: #### L [id number] #### [facility] CLIA [id number] [address] [place], [place] [address] [place] CLINICAL HISTORY, CYTOLOGY, MANAGER INTELLIGENCE Routine Exam Normal [facility] Comment on above: Order Comment: Speci men Type: FLUID SPECIMEN Ordering Facility: [facility] Address: [address] [place] [address] Performed By: #### L [id number] #### [facility] CLIA [id number] [address] [place], [place] [address] [place] FINAL PERFORMING LAB Normal [facility] Comment on above: Order Comment: Speci men Type: FLUID SPECIMEN Ordering Facility: [facility] Address: [address] [place], [place] [address] Result Comment: Tech nical component, manager of project management screening performed at: [facility], [address] [id number] CLIA: [id number] Diagnostic interpretation performed at: [facility], [address] [place], [place] [address] CLIA# [id number] It Integration Architect: Santo Rudd MD Performed By: #### L [id number] #### [facility] CLIA [id number] [address] [place] [address] [place] INTERPRETATION, CYTOLOGY, MANAGER INTELLIGENCE Normal [facility] Comment on above: Order Comment: Speci men Type: FLUID SPECIMEN Ordering Facility: [facility] Address: [address] [place] [address] Result Comment: Nega tive for intraepithelial lesion or malignancy. at 1358 EDT Performed By: #### L [id number] #### [facility] CLIA [id number] [address] [place] [address] [place] LMP 07/16/2024 Normal [facility] Comment on above: Order Comment: Speci men Type: FLUID SPECIMEN Ordering Facility: [facility] Address: [address] [place] [address] Performed By: #### L [id number] #### [facility] CLIA [id number] [address] [place] [address] [place] PAP DISCLAIMER COMMENT The Pap Smear is a screening test for cervical cancer. False negative results occur with all screening tests, emphasizing the need for rescreening at recommended intervals, and clinical correlation. Normal [facility] Comment on above: Order Comment: Speci men Type: FLUID SPECIMEN Ordering Facility: [facility] Address: [address] [place] [address] Performed By: #### L [id number] #### [facility] CLIA [id number] [address] [place], [place] [address] [place] PAP TUNNEL KILN REPAIRER COMMENT This specimen has been analyzed by the FDA-approved [employer] System, which uses digital imaging and an enhanced artificial intelligence image analysis algorithm to identify lux of interest on the microscopic slide, to assist the sugar boiler and pathologist in evaluating cells on ThinPrep Pap tests. Following analysis, lux of interest on the microscopic slide selected by the algorithm are reviewed by a sugar boiler. If a sample requires hierarchical review, the pathologist will review the same lux of interest selected by the algorithm prior to final interpretation. Normal [facility] Comment on above: Order Comment: Speci men Type: FLUID SPECIMEN Ordering Facility: [facility] Address: [address] [place] [address] Performed By: #### L [id number] #### [facility] CLIA [id number] [address] [place], [place] [address] [place] [address] [place] Bilirubin directOrdered By: Tristen Harrison on 07-12-2024 Bilirubin.direct [Mass/Vol] 0.10 mg/dL 0.00-0.3 0 [facility] Bilirubin, totalOrdered By: Tristen Harrison on 07-12-2024 Bilirubin [Mass/Vol] 0.16 mg/dL 0.00-1.30 [facility] - Chemistry and C hemistry - challengeOrdered By: Tristen Harrison on 07-12-2024 AST [Catalytic activity/Vol] 24 U/L <32 [facility] [facility] Liver Profileon 07-12-2024 Albumin [Mass/Vol] 4.5 g/dL Normal 3.5-5.0 [facility] Comment on above: Performed By: #### L 500.3400 #### [facility] [address] [place], [address] ALK PHOS 143 U/L High 35-104 [facility] Comment on above: Performed By: #### L 500.3400 #### [facility] [address] [place], [address] ALT [Catalytic activity/Vol] 113 U/L High <=34 [facility] Comment on above: Performed By: #### L 500.3400 #### [facility] [address] [place], [place], [address] AST [Catalytic activity/Vol] 24 U/L Normal <=31 [facility] Comment on above: Performed By: #### L 500.3400 #### [facility] [address] [place], [address] Bilirubin [Mass/Vol] 0.16 mg/dL Normal 0.00-1.30 [facility] Comment on above: Performed By: #### L 500.3400 #### [facility] [address] [place], [address] Bilirubin.direct [Mass/Vol] 0.10 mg/dL Normal 0.00-0.3 0 [facility] Comment on above: Performed By: #### L 500.3400 #### [facility] [address] [place], [address] Globulin (S) [Mass/Vol] 3.0 g/dL Normal 2.2-4.2 [facility] Comment on above: Performed By: #### L 500.3400 #### [facility] [address] [place], [address] T PROT 7.5 g/dL Normal 5.9-8.4 [facility] Comment on above: Performed By: #### L 500.3400 #### [facility] [address] [place], [address] Serum globulin measurementOr dered By: Tristen Harrison on 07-12-2024 Globulin (S) [Mass/Vol] 3.0 g/dL 2.2-4.2 [facility] Serum or plasma alanine wilde otransferase (ALT) measurementOrdered By: Tristen Harrison on 07-12-2024 ALT [Catalytic activity/Vol] 113 U/L High <35 [facility] Serum or plasma albumin brian urement (mass/volume)Ordered By: Tristen Harrison on 07-12-2024 Albumin [Mass/Vol] 4.5 g/dL 3.5-5.0 [facility] Serum or plasma alkaline eduardo sphatase measurementOrdered By: Tristen Harrison on 07-12-2024 ALP [Catalytic activity/Vol] 143 U/L High 35-104 [facility] Total proteinOrdered By: Jerilyn Harrison on 07-12-2024 Protein [Mass/Vol] 7.5 g/dL 5.9-8.4 [facility] ANCAon 07-09-2024 Atypical pANCA <1:20 Normal Neg:<1:20 [facility] Comment on above: Result Comment: The atypical pANCA pattern has been observed in a significant percentage of patients with ulcerative colitis, primary sclerosing cholangitis and autoimmune hepatitis. Performed By: #### L 500.2500, L501.2450, L500.3400, L100.0100 #### [facility] [address] [place], [address] Cytoplasmic Ab <1:20 Normal Neg:<1:20 [facility] Comment on above: Performed By: #### L 500.2500, L501.2450, L500.3400, L100.0100 #### [facility] [address] [place], [address] Perinuclear Ab. <1:20 Normal Neg:<1:20 [facility] Comment on above: Result Comment: The presence of positive fluorescence exhibiting P-ANCA or C-ANCA patterns alone is not specific for the diagnosis of Salbador's Granulomatosis (WG) or microscopic polyangiitis. Decisions about treatment should not be based solely on ANCA IFA results. The [employer] Consensus recommends follow up testing of positive sera with both MD- 3 and MPO-ANCA enzyme immunoassays. As many as 5% serum samples are positive only by EIA. Ref. AM J Clin Pathol 1999;111:507-513. Performed By: #### L 500.2500, L501.2450, L500.3400, L100.0100 #### [facility] [address] [place], [address] CMV Acute Antibody IgMon CMV Ab, IgM < 30.0 Normal 0.0-29.9 [facility] Comment on above: Result Comment: Nega tive <30.0 Equivocal 30.0 - 34.9 Positive >34.9 A positive result is generally indicative of acute infection, reactivation or persistent IgM production. Performed at: [facility] [address] [id number] Supervisor Braiding: Brett Jasso PhD, Phone: [phone] Performed at: [facility] [address] [id number] Supervisor Braiding: Renée Centeno MD, Phone: [phone] Performed By: #### L 500.2500, L501.2450, L500.3400, L100.0100 #### [facility] [address] [place], [place], [id number] Celiac AB,Comprehensiveon IMMUNOGLOB A QN TNP Normal [facility] Comment on above: Performed By: #### L 500.2500, L501.2450, L500.3400, L100.0100 #### [facility] [address] [place], [place], [id number] EBV Acute Prof IgG / IgMon 0 07-09-2024 EB Ab VCA, IgG 599.0 U/mL High 0.0-17.9 [facility] Comment on above: Result Comment: Nega tive <18.0 Equivocal 18.0 - 21.9 Positive >21.9 Performed By: #### L 500.2500, L501.2450, L500.3400, L100.0100 #### [facility] [address] [place], [place], [address] EBV Ab VCA, IgM < 36.0 Normal 0.0-35.9 [facility] Comment on above: Result Comment: Nega tive <36.0 Equivocal 36.0 - 43.9 Positive >43.9 Performed By: #### L 500.2500, L501.2450, L500.3400, L100.0100 #### [facility] [address] [place], [address] EBV NuAg Ab,IgG 564.0 U/mL High 0.0-17.9 [facility] Comment on above: Result Comment: Nega tive <18.0 Equivocal 18.0 - 21.9 Positive >21.9 Performed By: #### L 500.2500, L501.2450, L500.3400, L100.0100 #### [facility] [address] [place], [address] INTERPRETATION Comment Normal . [facility] Comment on above: Result Comment: EBV Interpretation [...] antibodies to EBNA. Performed By: #### L 500.2500, L501.2450, L500.3400, L100.0100 #### [facility] [address] [place], [address] Hepatitis Panel Acuteon 05-0 HEP B CORE,IgM Negative Normal Negative [facility] Comment on above: Performed By: #### L 500.2500, L501.2450, L500.3400, L100.0100 #### [facility] [address] [place], [address] HEP B SURF AG Negative Normal Negative [facility] Comment on above: Performed By: #### L 500.2500, L501.2450, L500.3400, L100.0100 #### [facility] [address] [place], [address] HEP C VIRUS AB Non-Reactive Normal Non Reactive [facility] Comment on above: Performed By: #### L 500.2500, L501.2450, L500.3400, L100.0100 #### [facility] [address] [place], [address] HEPATITIS A-IgM Negative Normal Negative [facility] Comment on above: Result Comment: A ne gative anti-HAV IgM result suggests no recent or current HAV infection. Performed By: #### L 500.2500, L501.2450, L500.3400, L100.0100 #### [facility] [address] [place], [address] FABRIZIO + Protein Elect, Serumon 07-09-2024 IMMUNOGLOB G QN TNP Normal [facility] Comment on above: Performed By: #### L 500.2500, L501.2450, L500.3400, L100.0100 #### [facility] [address] [place], [address] IgG Subclasseson 07-09-2024 IgG, SUBCLASS 1 430 mg/dL Normal 248-810 [facility] Comment on above: Performed By: #### L 500.2500, L501.2450, L500.3400, L100.0100 #### [facility] [address] [place], [address] IgG, SUBCLASS 2 178 mg/dL Normal 130-555 [facility] Comment on above: Performed By: #### L 500.2500, L501.2450, L500.3400, L100.0100 #### [facility] [address] [place], [address] IgG, SUBCLASS 3 56 mg/dL Normal 15-102 [facility] Comment on above: Performed By: #### L 500.2500, L501.2450, L500.3400, L100.0100 #### [facility] [address] [place], [address] IgG, SUBCLASS 4 7 mg/dL Normal 2-96 [facility] Comment on above: Performed By: #### L 500.2500, L501.2450, L500.3400, L100.0100 #### [facility] [address] [place], [address] IGG,QUANT 787 mg/dL Normal 586-1602 [facility] Comment on above: Performed By: #### L 500.2500, L501.2450, L500.3400, L100.0100 #### [facility] [address] [place], [address] Immunoglobulins G/A/M/Cristopher IMMUNOGLOB E QN 5 IU/mL Low 6-495 [facility] Comment on above: Performed By: #### L 500.2500, L501.2450, L500.3400, L100.0100 #### [facility] [address] [place], [address] L2100.0000on 07-09-2024 ACCA 24 units Normal 0-90 [facility] Comment on above: Result Comment: Nega tive: <80 Equivocal: 80-90 Positive: >90 Performed By: #### L 500.2500, L501.2450, L500.3400, L100.0100 #### [facility] [address] [place], [address] ALCA 10 units Normal 0-60 [facility] Comment on above: Result Comment: Nega tive:<55 Equivocal: 55-60 Positive: >60 Performed By: #### L 500.2500, L501.2450, L500.3400, L100.0100 #### [facility] [address] [place], [address] AMCA 18 units Normal 0-100 [facility] Comment on above: Result Comment: Nega tive: <90 Equivocal: 90-100 Positive: >100 This test was developed and its performance characteristics determined by [employer]. It has not been cleared or approved by the Food and Drug Administration. The FDA has determined that such clearance or approval is not necessary. Performed By: #### L 500.2500, L501.2450, L500.3400, L100.0100 #### [facility] [address] [place], [address] Atypical pANCA Negative Normal Negative [facility] Comment on above: Performed By: #### L 500.2500, L501.2450, L500.3400, L100.0100 #### [facility] [address] [place], [address] COMMENT Comment Normal . [facility] Comment on above: Result Comment: Mandy sarah is not suggestive of Inflammatory Bowel Disease Performed By: #### L 500.2500, L501.2450, L500.3400, L100.0100 #### [facility] [address] [place], [address] Result Comment: Not infected with HCV unless early or acute infection is suspected (which may be delayed in an immunocompromised individual), or other evidence exists to indicate HCV infection. Jesika 12 units Normal 0-50 [facility] Comment on above: Result Comment: Nega tive: <45 Equivocal: 45-50 Positive: >50 Performed By: #### L 500.2500, L501.2450, L500.3400, L100.0100 #### [facility] [address] [place], [address] Liver Profileon 07-07-2024 ALB Normal 3.5-5.0 [facility] Comment on above: Result Comment: Canc elled via OM: Order cancelled - Patient discharged Performed By: #### L 500.3400 #### [facility] [address] [place], [address] ALK PHOS Normal 35-104 [facility] Comment on above: Result Comment: Canc elled via OM: Order cancelled - Patient discharged Performed By: #### L 500.3400 #### [facility] [address] [place], [address] ALT Normal <=34 [facility] Comment on above: Result Comment: Canc elled via OM: Order cancelled - Patient discharged Performed By: #### L 500.3400 #### [facility] [address] [place], [address] AST Normal <=31 [facility] Comment on above: Result Comment: Canc elled via OM: Order cancelled - Patient discharged Performed By: #### L 500.3400 #### [facility] [address] [place], [address] D BILI Normal 0.00-0.30 [facility] Comment on above: Result Comment: Canc elled via OM: Order cancelled - Patient discharged Performed By: #### L 500.3400 #### [facility] [address] [place], [address] T BILI Normal 0.00-1.30 [facility] Comment on above: Result Comment: Canc elled via OM: Order cancelled - Patient discharged Performed By: #### L 500.3400 #### [facility] [address] [place], [address] T PROT Normal 5.9-8.4 [facility] Comment on above: Result Comment: Canc elled via OM: Order cancelled - Patient discharged Performed By: #### L 500.3400 #### [facility] [address] [place], [address] Anti-Mitochondrial ABon 04-2 ANTIMITOCHON AB <20.0 Normal 0.0-20.0 [facility] Comment on above: Result Comment: Nega tive 0.0 - 20.0 Equivocal 20.1 - 24.9 Positive >24.9 Mitochondrial (M2) Antibodies are found in 90-96% of patients with primary biliary cirrhosis. Performed at: [facility] [address] [id number] Supervisor Braiding: Brett Jasso PhD, Phone: [phone] Performed By: #### L 803.2200, L800.1280 #### [facility] [address] [place], [place], [id number] Anti-Smooth Muscle ABSon ANTISMOOTH MUSC 11 Units Normal 0-19 [facility] Comment on above: Result Comment: Nega tive 0 - 19 Weak positive 20 - 30 Moderate to strong positive >30 Actin Antibodies are found in 52-85% of patients with autoimmune hepatitis or chronic active hepatitis and in 22% of patients with primary biliary cirrhosis. Performed at: [address] [id number] Supervisor Braiding: Brett Jasso PhD, Phone: [phone] Performed By: #### L 500.2500, L501.2450, L500.3400, L100.0100 #### [facility] [address] [place], [place], [id number] L501.5101on 07-06-2024 GGTP 213 IU/L Abnormal 0-60 [facility] Comment on above: Result Comment: Perf ormed at: [address] [id number] Supervisor Braiding: Brett Jasso PhD, Phone: [phone] Performed By: #### L 501.5101 #### [facility] [address] [place], [place], [id number] Liver Profileon 07-06-2024 ALB Normal 3.5-5.0 [facility] Comment on above: Result Comment: Canc elled via OM: Order cancelled - Patient discharged Performed By: #### L 500.3400 #### [facility] [address] [place], [place], [address] ALK PHOS Normal 35-104 [facility] Comment on above: Result Comment: Canc elled via OM: Order cancelled - Patient discharged Performed By: #### L 500.3400 #### [facility] [address] [place], [address] ALT Normal <=34 [facility] Comment on above: Result Comment: Canc elled via OM: Order cancelled - Patient discharged Performed By: #### L 500.3400 #### [facility] [address] [place], [address] AST Normal <=31 [facility] Comment on above: Result Comment: Canc elled via OM: Order cancelled - Patient discharged Performed By: #### L 500.3400 #### [facility] [address] [place], [address] D BILI Normal 0.00-0.30 [facility] Comment on above: Result Comment: Canc elled via OM: Order cancelled - Patient discharged Performed By: #### L 500.3400 #### [facility] [address] [place], [address] T BILI Normal 0.00-1.30 [facility] Comment on above: Result Comment: Canc elled via OM: Order cancelled - Patient discharged Performed By: #### L 500.3400 #### [facility] [address] [place], [address] T PROT Normal 5.9-8.4 [facility] Comment on above: Result Comment: Canc elled via OM: Order cancelled - Patient discharged Performed By: #### L 500.3400 #### [facility] [address] [place], [address] Abdomen/Pelvis W IV Cont ONL Yon 07-05-2024 Abdomen/Pelvis W IV Cont ONLY [facility] [address] [place] [address] Abdomen/Pelvis W IV Cont ONLY MR#: [id number] Acct: [id number] Name: MEIRLIUDMILA MARQUIS Rep #: [id number] : 1985 F 38 From: Bernard Souza MD PCP: Dr. Mena Vernon MD Status: ADM IN Study: Abdomen/Pelvis W IV Cont ONLY Date of Exam: Exam# [id number] Ordering Dr: Sergio Mcfarland DO PROCEDURE: ABDOMEN/PELVIS [...] quadrant and pelvic free fluid. Reading Location: [id number] CC: Dr. Mena Vernon MD; Sergio Mcfarland DO Shank Sorter: Signed Normal [facility] Absolute lymphocyte countOrd ered By: Juan Hdez on 07-05-2024 Lymphocytes Auto (Unsp spec) [#/Vol] 1.15 10*3/uL 0.83-4.51 [facility] Absolute neutrophil countOrd ered By: Juan Hdez on 07-05-2024 Neutrophils (Bld) [#/Vol] 2.8 10*3/uL 2.0-7.7 [facility] Albumin Elph [Mass/Vol]Order ed By: Sergio Mcfarland on 07-05-2024 Albumin [Mass/Vol] 3.6 g/dL 2.9-4.4 [facility] Anion gap in Serum or Plasma Ordered By: Juan Hdez on 07-05-2024 Anion gap [Moles/Vol] 8 mmol/L 5-15 [facility] Automated lymphocyte count a s percentage of total leukocytesOrdered By: Juan Hdez on 07-05-2024 Lymphocytes/100 WBC Auto (Unsp spec) 25.2 % 19-41 [facility] BUN/creatinine ratioOrdered By: Juan Hdez on 07-05-2024 Urea nitrogen/Creatinine [Mass ratio] 7.2 mg/mg Low 10-20 [facility] Basic Metabolic Profile (BMP )on 07-05-2024 BUN/CRE 7.2 RATIO Low 10-20 [facility] Comment on above: Performed By: #### L 500.2500, L501.2450, L500.3400, L100.0100 #### [facility] [address] [place], [address] Calcium [Mass/Vol] 8.3 mg/dL Normal 7.6-11.0 [facility] Comment on above: Performed By: #### L 500.2500, L501.2450, L500.3400, L100.0100 #### [facility] [address] [place], [address] Chloride [Moles/Vol] 107 mmol/L Normal 98-108 [facility] Comment on above: Performed By: #### L 500.2500, L501.2450, L500.3400, L100.0100 #### [facility] [address] [place], [address] CO2 [Moles/Vol] 25.2 mmol/L Normal 21.0-32.0 [facility] Comment on above: Performed By: #### L 500.2500, L501.2450, L500.3400, L100.0100 #### [facility] [address] [place], [address] Creatinine [Mass/Vol] 0.51 mg/dL Low 0.70-1.20 [facility] Comment on above: Performed By: #### L 500.2500, L501.2450, L500.3400, L100.0100 #### [facility] [address] [place], [address] ECRCL 166.71 ml/min Normal 50-250 [facility] Comment on above: Performed By: #### L 500.2500, L501.2450, L500.3400, L100.0100 #### [facility] [address] [place], [address] GAP 8 Normal 5-15 [facility] Comment on above: Performed By: #### L 500.2500, L501.2450, L500.3400, L100.0100 #### [facility] [address] [place], [address] GFR/1.73 sq M.predicted among non-blacks MDRD (S/P/Bld) [Vol rate/Area] 124 mL/min/{1.73_m2} Normal >60 [facility] Comment on above: Result Comment: mL/m in/1.73m2 CKD-EPI Creatinine Equation (2020) Performed By: #### L 500.2500, L501.2450, L500.3400, L100.0100 #### [facility] [address] [place], [address] Glucose [Mass/Vol] 91 mg/dL Normal 70-99 [facility] Comment on above: Performed By: #### L 500.2500, L501.2450, L500.3400, L100.0100 #### [facility] [address] [place], [address] Potassium [Moles/Vol] 3.8 mmol/L Normal 3.3-5.1 [facility] Comment on above: Performed By: #### L 500.2500, L501.2450, L500.3400, L100.0100 #### [facility] [address] [place], [address] Sodium [Moles/Vol] 140 mmol/L Normal 133-145 [facility] Comment on above: Performed By: #### L 500.2500, L501.2450, L500.3400, L100.0100 #### [facility] [address] [place], [address] Urea nitrogen [Mass/Vol] 4 mg/dL Normal 4-19 [facility] Comment on above: Performed By: #### L 500.2500, L501.2450, L500.3400, L100.0100 #### [facility] [address] [place], [address] Basophil percentageOrdered B y: Juan Hdez on 07-05-2024 Basophils/100 WBC (Bld) 0.9 % 0-1 [facility] Bilirubin directOrdered By: Juan Hdez on 07-05-2024 Bilirubin.direct [Mass/Vol] 0.70 mg/dL High 0.00-0.3 0 [facility] Bilirubin, totalOrdered By: Juan Hdez on 07-05-2024 Bilirubin [Mass/Vol] 1.21 mg/dL 0.00-1.30 [facility] CBC W/Diff, Automatedon 06-09 Absolute Lymph 1.15 X10 3/uL Normal 0.83-4.51 [facility] Comment on above: Performed By: #### L 500.2500, L501.2450, L500.3400, L100.0100 #### [facility] [address] [place], [address] Absolute Neut 2.8 X10 3/uL Normal 2.0-7.7 [facility] Comment on above: Performed By: #### L 500.2500, L501.2450, L500.3400, L100.0100 #### [facility] [address] [place], [address] Basophils/100 WBC (Bld) 0.9 % Normal 0-1 [facility] Comment on above: Performed By: #### L 500.2500, L501.2450, L500.3400, L100.0100 #### [facility] [address] [place], [address] Eosinophils/100 WBC (Bld) 3.5 % Normal 0-5 [facility] Comment on above: Performed By: #### L 500.2500, L501.2450, L500.3400, L100.0100 #### [facility] [address] [place], [address] Erythrocyte distribution width (RBC) [Ratio] 16.0 % High 11.6-14.6 [facility] Comment on above: Performed By: #### L 500.2500, L501.2450, L500.3400, L100.0100 #### [facility] [address] [place], [address] Hematocrit (Bld) [Volume fraction] 33.4 % Low 37-47 [facility] Comment on above: Performed By: #### L 500.2500, L501.2450, L500.3400, L100.0100 #### [facility] [address] [place], [address] Hemoglobin (Bld) [Mass/Vol] 10.9 g/dL Low 12.0-15. 0 [facility] Comment on above: Performed By: #### L 500.2500, L501.2450, L500.3400, L100.0100 #### [facility] [address] [place], [address] IG% 0.200 Normal 0.0-0.9 [facility] Comment on above: Result Comment: IG% - Immature Granulocytes (promyelocytes, myelocytes and metamyelocytes) > 1% indicates that a LEFT SHIFT is Present. Performed By: #### L 500.2500, L501.2450, L500.3400, L100.0100 #### [facility] [address] [place], [address] Lymphocytes/100 WBC (Bld) 25.2 % Normal 19-41 [facility] Comment on above: Performed By: #### L 500.2500, L501.2450, L500.3400, L100.0100 #### [facility] [address] [place], [address] MCH (RBC) [Entitic mass] 25.6 pg Low 27.0-32.0 [facility] Comment on above: Performed By: #### L 500.2500, L501.2450, L500.3400, L100.0100 #### [facility] [address] [place], [address] MCHC (RBC) [Mass/Vol] 32.6 g/dL Normal 32-36 [facility] Comment on above: Performed By: #### L 500.2500, L501.2450, L500.3400, L100.0100 #### [facility] [address] [place], [address] MCV (RBC) [Entitic vol] 78.4 fL Low 81-99 [facility] Comment on above: Performed By: #### L 500.2500, L501.2450, L500.3400, L100.0100 #### [facility] [address] [place], [address] Monocytes/100 WBC (Bld) 9.9 % Normal 0-10 [facility] Comment on above: Performed By: #### L 500.2500, L501.2450, L500.3400, L100.0100 #### [facility] [address] [place], [address] Neutrophils/100 WBC (Bld) 60.3 % Normal 47-70 [facility] Comment on above: Performed By: #### L 500.2500, L501.2450, L500.3400, L100.0100 #### [facility] [address] [place], [address] Nucleated RBC (Bld) [#/Vol] 0 10*3/uL Normal 0-5 [facility] Comment on above: Performed By: #### L 500.2500, L501.2450, L500.3400, L100.0100 #### [facility] [address] [place], [address] Platelet mean volume (Bld) [Entitic vol] 10.0 fL Normal 6.2-12.0 [facility] Comment on above: Performed By: #### L 500.2500, L501.2450, L500.3400, L100.0100 #### [facility] [address] [place], [address] Platelets (Bld) [#/Vol] 282 10*3/uL Normal 150-450 [facility] Comment on above: Performed By: #### L 500.2500, L501.2450, L500.3400, L100.0100 #### [facility] [address] [place], [address] RBC (Bld) [#/Vol] 4.26 10*6/uL Normal 4.2-5.4 [facility] Comment on above: Performed By: #### L 500.2500, L501.2450, L500.3400, L100.0100 #### [facility] [address] [place], [address] RDW SD 46.1 fl High 35.1-43.9 [facility] Comment on above: Performed By: #### L 500.2500, L501.2450, L500.3400, L100.0100 #### [facility] [address] [place], [address] WBC (Bld) [#/Vol] 4.6 10*3/uL Normal 4.4-11.0 [facility] Comment on above: Performed By: #### L 500.2500, L501.2450, L500.3400, L100.0100 #### [facility] [address] [place], [address] CRPon 07-05-2024 C-REACTIVE PROT 6.50 mg/L High 0.0-3.0 [facility] Comment on above: Performed By: #### L 500.2500, L501.2450, L500.3400, L100.0100 #### [facility] [address] [place], [address] CRP [Mass/Vol]Ordered By: Ra nila Mcfarland on 07-05-2024 C-Reactive Protein Extended Range 6.50 mg/L High 0.0-3.0 [facility] Calculated total iron bindin g capacityOrdered By: Sergio Mcfarland on 07-05-2024 Total Iron Binding Capacity 352 ug/dL 250-450 [facility] Carbon dioxide, total [Moles /volume] in Central venous bloodOrdered By: Juan Hdez on 07-05-2024 CO2 [Moles/Vol] 25.2 mmol/L 21.0-32.0 [facility] Chitobioside IgA antibody as sayOrdered By: Sergio Mcfarland on 07-05-2024 Chitobioside IgA IA Qn 24 units 0-90 [facility] Comment on above: Negative: <80 Equivo abelardo: 80-90 Positive: >90 Chloride assayOrdered By: Brian Hdez on 07-05-2024 Chloride [Moles/Vol] 107 mmol/L 98-108 [facility] Consultation - Surgicalon Consultation - Surgical [facility] Medical Records Department [address] [place] [address] Consultation - Surgical 07/05/24 0836 MR#: [id number] Acct: [id number] Name: LIUDMILA WORLEY Rep #: [id number] : 1985 38 From: Veronica Austin MD PCP: Dr. Mena Vernon MD Status:ADM IN Location: [place] [address] Assessment Plan Assessment/Plan (1) Cholelithiasis: (2) Elevated [...] be covering tomorrow. Veronica Austin M.D. Pager: [phone] [facility] [address] [place] [address], [facility], [address] [place] [address] Office: [phone] HPI Consult Data Date of Consult: 07/05/24 [...] remained mildly elevated at 191. [facility] Medical History Wears glasses Depression [...] HEENT normocepha (more content not included)... Normal [facility] Discharge Instructionon 06-09 Discharge Instruction [facility] Medical Records Department [address] [place] [address] Instructions for Home/Discharge Instructions 07/05/24 1332 MR#: [id number] Acct: [id number] Name: LIUDMILA WORLEY Rep #: [id number] : 1985 38 From: Tristen Harrison DO [...] Liver Profile (Routine) Timeframe: 5 Days Facility: [facility] - Location: Laboratory Ordered By: Dr. Tristen Harrison Referrals / Follow Up: Mena Vernon MD [Primary Care Provider] - Friend,DO Sergio [Med Staff - Active Staff] - Disposition Disposition (needs filled in before D/C Order can be placed): Home, Self Care 07/05/24 1425 Tristen Harrison DO CC: Dr. Mena Vernon MD; Dr. Juan Hdez MD; Dr. Veronica Austin MD Signed Normal [facility] Eosinophil percentageOrdered By: Juan Hdez on 07-05-2024 Eosinophils/100 WBC (Bld) 3.5 % 0-5 [facility] Erythrocyte Sed Rateon 07-05 SED RATE 9 mm/hr Normal 0-30 [facility] Comment on above: Performed By: #### L 500.2500, L501.2450, L500.3400, L100.0100 #### [facility] [address] [place], [place], [id number] Erythrocyte distribution wid th (RBC) [Ratio]Ordered By: Juan Hdez on 07-05-2024 Erythrocyte distribution width (RBC) [Entitic vol] 46.1 fL High 35.1-43.9 [facility] Erythrocyte distribution wid th ratioOrdered By: Juan Hdez on 07-05-2024 Erythrocyte distribution width (RBC) [Ratio] 16.0 % High 11.6-14.6 [facility] Erythrocyte distribution wid th standard deviationOrdered By: Juan Hdez on 07-05-2024 Erythrocyte distribution width (RBC) [Ratio] 46.1 fl High 35.1-43.9 [facility] Erythrocyte sedimentation ra teOrdered By: Sergio Mcfarland on 07-05-2024 ESR (Bld) [Velocity] 9 mm/h 0-30 [facility] Estimation of creatinine jermain aranceOrdered By: Juan Hdez on 07-05-2024 Estimated Creatinine Clearance Calc 166.71 ml/min 50-250 [facility] Ferritinon 07-05-2024 Ferritin [Mass/Vol] 28 ng/mL Normal 22-378 [facility] Comment on above: Performed By: #### L 500.2500, L501.2450, L500.3400, L100.0100 #### [facility] [address] [place], [address] Ferritin [Mass/Vol] 23 ng/mL Normal 22-378 [facility] Comment on above: Performed By: #### L 500.2500, L501.2450, L500.3400, L100.0100 #### [facility] [address] [place], [address] GFR/1.73 sq M.predicted shala g non-blacks MDRD (S/P/Bld) [Vol rate/Area]Ordered By: Juan Hdez on 07-05-2024 Estimated GFR (MDRD) Non-Af Amer 124 >60 [facility] Comment on above: mL/min/1.73m2 CKD-EP I Creatinine Equation (2020) Glomerular filtration rate ( GFR) estimation/1.73 sq m using serum, plasma, or whole bOrdered By: Juan Hdez on 07-05-2024 GFR/1.73 sq M.predicted among non-blacks MDRD (S/P/Bld) [Vol rate/Area] 124 mL/min/{1.73_m2} >60 [facility] Comment on above: mL/min/1.73m2 CKD-EP I Creatinine Equation (2020) Hematocrit Auto (Bld) [Volum e fraction]Ordered By: Juan Hdez on 07-05-2024 Hematocrit (Bld) [Volume fraction] 33.4 % Low 37-47 [facility] Hemoglobin measurementOrdere d By: Juan Hdez on 07-05-2024 Hemoglobin (Bld) [Mass/Vol] 10.9 g/dL Low 12.0-15. 0 [facility] IgEOrdered By: Sergio Beltrán d on 07-05-2024 IgE 5 IU/mL Low 6-495 [facility] Immature granulocytes/100 WB C Auto (Bld)Ordered By: Juan Hdez on 07-05-2024 Immature granulocytes/100 WBC (Bld) 0.200 % 0.0-0.9 [facility] Comment on above: IG% - Immature Granu locytes (promyelocytes, myelocytes and metamyelocytes) > 1% indicates that a LEFT SHIFT is Present. Interpretation of serum or p lasma protein pattern by immunofixation (narrative resultOrdered By: Sergio Mcfarland on 07-05-2024 Protein Fractions Immunofixation Kiran [Interp] Not Observed g/dL Not Observed [facility] Iron (Unsp spec) [Mass/Mass] Ordered By: Sergio Mcfarland on 07-05-2024 Iron [Mass/Vol] 258 ug/dL High 50-170 [facility] Iron measurement (mass/mass) Ordered By: Sergio Mcfarland on 07-05-2024 Iron (Unsp spec) [Mass/Mass] 258 ug/dL High 50-170 [facility] Iron saturation [Mass fracti on]Ordered By: Sergio Mcfarland on 07-05-2024 Iron Saturation 73.3 % High 13-59 [facility] Comment on above: Previous reported re sult: 73.0 %Edited by: BRENNA on 07/05/24:1215 AMENDED REPORT 07/05/24 1215 IRON SATURATION previously reported as: 73.0 H % Iron+Iron Binding Capacityon 07-05-2024 Iron [Mass/Vol] 258 ug/dL High 50-170 [facility] Comment on above: Performed By: #### L 500.2500, L501.2450, L500.3400, L100.0100 #### [facility] [address] [place], [address] UIBC 94 ug/dL Low 228-428 [facility] Comment on above: Performed By: #### L 500.2500, L501.2450, L500.3400, L100.0100 #### [facility] [address] [place], [address] Iron [Mass/Vol] 209 ug/dL High 50-170 [facility] Comment on above: Performed By: #### L 500.2500, L501.2450, L500.3400, L100.0100 #### [facility] [address] [place], [address] IRON SATURATION 66.0 High 13-59 [facility] Comment on above: Performed By: #### L 500.2500, L501.2450, L500.3400, L100.0100 #### [facility] [address] [place], [address] TIBC 316 ug/dL Normal 250-450 [facility] Comment on above: Performed By: #### L 500.2500, L501.2450, L500.3400, L100.0100 #### [facility] [address] [place], [address] UIBC 107 ug/dL Low 228-428 [facility] Comment on above: Performed By: #### L 500.2500, L501.2450, L500.3400, L100.0100 #### [facility] [address] [place], [address] Laboratory - Chemistry and C hemistry - challengeOrdered By: Juan Hdez on 07-05-2024 AST [Catalytic activity/Vol] 442 U/L High <32 [facility] - Miscellaneous t estsOrdered By: Sergio Mcfarland on 07-05-2024 Laboratory comment Kiran (Report) Comment . [facility] Comment on above: Pattern is not sugge stive of Inflammatory Bowel Disease Laminaribioside carbohydrate IgG antibody assayOrdered By: Sergio Mcfarland on 07-05-2024 Laminaribioside IgG IA Qn 10 units 0-60 [facility] Comment on above: Negative:<55 Equivoc al: 55-60 Positive: >60 Liver Profileon 07-05-2024 ALT [Catalytic activity/Vol] 726 U/L High <=34 [facility] Comment on above: Result Comment: AMENDED REPORT 07/05/24 2432 ALT previously reported as: 585 H U/L Performed By: #### L 500.2500, L501.2450, L500.3400, L100.0100 #### [facility] [address] [place], [address] Lymphocytes Auto (Unsp spec) [#/Vol]Ordered By: Juan Hdez on 07-05-2024 Lymphocytes (Bld) [#/Vol] 1.15 10*3/uL 0.83-4.5 1 [facility] Lymphocytes/100 WBC Auto (Un sp spec)Ordered By: Juan Hdez on 07-05-2024 Lymphocytes/100 WBC (Bld) 25.2 % 19-41 [facility] MCV (mean corpuscular volume ) determinationOrdered By: Juan Hdez on 07-05-2024 MCV (RBC) [Entitic vol] 78.4 fL Low 81-99 [facility] Mean corpuscular hemoglobin (MCH) determinationOrdered By: Juan Hdez on 07-05-2024 MCH (RBC) [Entitic mass] 25.6 pg Low 27.0-32.0 [facility] Mean corpuscular hemoglobin concentration (MCHC) determinationOrdered By: Juan Hdez on 07-05-2024 MCHC (RBC) [Mass/Vol] 32.6 g/dL 32-36 [facility] Mean platelet volume determi nationOrdered By: Juan Hdez on 07-05-2024 Platelet mean volume (Bld) [Entitic vol] 10.0 fL 6.2-12.0 [facility] Monocyte percentageOrdered B y: Juan Hdez on 07-05-2024 Monocytes/100 WBC (Bld) 9.9 % 0-10 [facility] Neutrophil percentageOrdered By: Juan Hdez on 07-05-2024 Neutrophils/100 WBC (Bld) 60.3 % 47-70 [facility] No Panel InformationOrdered By: Sergio Friend on 07-05-2024 Addendum Document Comment . [facility] Comment on above: Protein electrophore sis scan will follow via computer,mail, or accountant auditor delivery. Hepatitis C Antibody Comment Comment . [facility] Comment on above: Not infected with HC V unless early or acute infection issuspected (which may be delayed in an immunocompromisedindividual), or other evidence exists to indicate HCVinfection. Tissue Transglutaminase IgG Ab 3 U/mL 0-5 [facility] Comment on above: Negative 0 - 5 Weak Positive 6 - 9 Positive >9 Unsaturated Iron Binding Capacity 94 ug/dL Low 228-428 [facility] Nucleated red blood cell per centageOrdered By: Juan Hdez on 07-05-2024 Nucleated RBC/100 WBC (Bld) [Ratio] 0 % 0-5 [facility] Platelet countOrdered By: Brian Hdez on 07-05-2024 Platelets (Bld) [#/Vol] 282 10*3/uL 150-450 [facility] Potassium (Unsp spec) [Mass/ Vol]Ordered By: Juan Hdez on 07-05-2024 Potassium [Moles/Vol] 3.8 mmol/L 3.3-5.1 [facility] Potassium measurement (mass/ volume)Ordered By: Juan Hdez on 07-05-2024 Potassium (Unsp spec) [Mass/Vol] 3.8 mmol/L 3.3-5.1 [facility] ,Urineon 07-05-2024 Beta HCG ( test) Ql (U) Negative Normal [facility] Comment on above: Order Comment: 411 Result Comment: Very dilute urine specimens, as indicated by a low specific gravity, may not contain quality assurance representative levels of hCG. If is still suspected, a first morning urine specimen should be collected 48 hours later and tested. Performed By: #### L 500.2500, L501.2450, L500.3400, L100.0100 #### [facility] [address] [place], [address] RBC Auto (Bld) [#/Vol]Ordere d By: Juan Hdez on 07-05-2024 RBC (Bld) [#/Vol] 4.26 10*6/uL 4.2-5.4 [facility] Serum Eboni Alcala virus cap harsha IgM antibody assay (units/volume)Ordered By: Sergio Mcfarland on 07-05-2024 EBV capsid IgM Qn (S) [arb'U]/mL 0.0-35.9 [facility] Comment on above: Negative <36.0 Equiv ocal 36.0 - 43.9 Positive >43.9 Serum Eboni Alcala virus nuc lear IgG antibody assay (units/volume)Ordered By: Sergio Mcfarland on 07-05-2024 EBV nuclear IgG Qn (S) 564.0 U/mL High 0.0-17.9 [facility] Comment on above: Negative <18.0 Equiv ocal 18.0 - 21.9 Positive >21.9 Serum IgG subclass 1 measure ment (mass/volume)Ordered By: Sergio Mcfarland on 07-05-2024 IgG subclass 1 (S) [Mass/Vol] 430 mg/dL 248-810 [facility] Serum IgG subclass 2 measure ment (mass/volume)Ordered By: Sergio Mcfarland on 07-05-2024 IgG subclass 2 (S) [Mass/Vol] 178 mg/dL 130-555 [facility] Serum IgG subclass 3 measure ment (mass/volume)Ordered By: Sergio Mcfarland on 07-05-2024 IgG subclass 3 (S) [Mass/Vol] 56 mg/dL 15-102 [facility] Serum classic neutrophil cyt oplasmic antibody assay (units/volume)Ordered By: Sergio Mcfarland on 07-05-2024 Neutrophil cytoplasmic Ab.classic Qn (S) <1:20 titer Neg:<1:20 [facility] Serum creatinine measurement (mass/volume)Ordered By: Juan Hdez on 07-05-2024 Creatinine [Mass/Vol] 0.51 mg/dL Low 0.70-1.20 [facility] Serum globulin measurementOr dered By: Juan Hdez on 07-05-2024 Globulin (S) [Mass/Vol] 2.5 g/dL 2.2-4.2 [facility] Serum globulin measurement ( mass/volume)Ordered By: Sergio Mcfarland on 07-05-2024 Globulin (S) [Mass/Vol] 2.5 g/dL 2.2-3.9 [facility] Serum glucose measurement (m ass/volume)Ordered By: Juan Hdez on 07-05-2024 Glucose [Mass/Vol] 91 mg/dL 70-99 [facility] Serum mitochondria antibody detectionOrdered By: Sergio Mcfarland on 07-05-2024 Mitochondria Ab Ql (S) <20.0 Units 0.0-20.0 [facility] Comment on above: Negative 0.0 - 20.0 Equivocal 20.1 - 24.9 Positive >24.9Mitochondrial (M2) Antibodies are found in 90-96% ofpatients with primary biliary cirrhosis.Performed at: [facility] [employer] [id number] Director: Brett Jasso PhD, Phone: [phone] Serum or plasma C reactive p rotein measurement (mass/volume)Ordered By: Sergio Mcfarland on 07-05-2024 CRP [Mass/Vol] 6.50 mg/L High 0.0-3.0 [facility] Serum or plasma IgA measurem ent (mass/volume)Ordered By: Sergio Mcfarland on 07-05-2024 IgA [Mass/Vol] 106 mg/dL 87-352 [facility] Serum or plasma IgG measurem ent (mass/volume)Ordered By: Sergio Mcfarland on 07-05-2024 IgG [Mass/Vol] 787 mg/dL 586-1602 [facility] IgG [Mass/Vol] TNP [facility] Comment on above: Test not performed Serum or plasma actin IgG an tibody assay (units/volume)Ordered By: Sergio Mcfarland on 07-05-2024 Actin IgG Qn 11 Units 0-19 [facility] Comment on above: Negative 0 - 19 Weak positive 20 - 30 Moderate to strong positive >30 Actin Antibodies are found in 52-85% of patients with autoimmune hepatitis or chronic active hepatitis and in 22% of patients with primary biliary cirrhosis.Performed at: [email or web address] [id number] Director: Brett Jasso PhD, Phone: [phone] Serum or plasma alanine wilde otransferase (ALT) measurementOrdered By: Juan Hdez on 07-05-2024 ALT [Catalytic activity/Vol] 726 U/L High <35 [facility] Comment on above: Previous reported re sult: 585 U/LEdited by: AUTOINBee on 07/05/24:0532 AMENDED REPORT 07/05/24 0532 ALT previously reported as: 585 H U/L Serum or plasma albumin brian urement (mass/volume)Ordered By: Juan Hdez on 07-05-2024 Albumin [Mass/Vol] 3.6 g/dL 3.5-5.0 [facility] Serum or plasma alkaline eduardo sphatase measurementOrdered By: Juan Hdez on 07-05-2024 ALP [Catalytic activity/Vol] 191 U/L High 35-104 [facility] Serum or plasma alpha 1 glob ulin measurement by electrophoresis (mass/volume)Ordered By: Sergio Mcfarland on 07-05-2024 Alpha 1 globulin Elph [Mass/Vol] 0.2 g/dL 0.0-0.4 [facility] Alpha 1 globulin Elph [Mass/Vol] 0.7 g/dL 0.4-1.0 [facility] Serum or plasma beta globuli n measurement by electrophoresis (mass/volume)Ordered By: Sergio Mcfarland on 07-05-2024 Beta globulin Elph [Mass/Vol] 0.8 g/dL 0.7-1.3 [facility] Serum or plasma calcium brian urement (mass/volume)Ordered By: Juan Hdez on 07-05-2024 Calcium [Mass/Vol] 8.3 mg/dL 7.6-11.0 [facility] Serum or plasma cytomegalovi angel (CMV) IgM antibody assay (units/volume)Ordered By: Sergio Mcfarland on 07-05-2024 CMV IgM Qn < 30.0 AU/mL 0.0-29.9 [facility] Comment on above: Negative <30.0 Equiv ocal 30.0 - 34.9 Positive >34.9A positive result is generally indicative of acuteinfection, reactivation or persistent IgM production.Performed at: - [facility] [id number] Director: Brett Jasso PhD, Phone: [phone] at: - [facility] [id number] Director: Renée Centeno MD, Phone: [phone] Serum or plasma ferritin kenji surement (mass/volume)Ordered By: Sergio Mcfarland on 07-05-2024 Ferritin [Mass/Vol] 28 ng/mL 22-378 [facility] Serum or plasma gamma globul in measurement by electrophoresis (mass/volume)Ordered By: Sergio Mcfarland on 07-05-2024 Gamma globulin Elph [Mass/Vol] 0.8 g/dL 0.4-1.8 [facility] Serum or plasma hepatitis B virus surface antigen detection by immunoassayOrdered By: Sergio Mcfarland on 07-05-2024 HBV surface Ag IA Ql Negative Negative [facility] Serum or plasma immunoelectr ophoresis interpretation (nominal result)Ordered By: Sergio Mcfarland on 07-05-2024 Interpretation IEP [Interp] Comment . [facility] Comment on above: No monoclonality det ected. Serum or plasma iron saturat ion measurement (mass fraction)Ordered By: Sergio Mcfarland on 07-05-2024 Iron saturation [Mass fraction] 73.3 % High 13-59 [facility] Comment on above: Previous reported re sult: 73.0 %Edited by: BRENNA on 07/05/24:1215 AMENDED REPORT 07/05/24 1215 IRON SATURATION previously reported as: 73.0 H % Serum or plasma mannobioside IgG antibody assay by immunoassay (units/volume)Ordered By: Sergio Mcfarland on 07-05-2024 Mannobioside IgG IA Qn 18 units 0-100 [facility] Comment on above: Negative: <90 Equivo abelardo: 90-100 Positive: >100 This test was developed and its performance characteristics determined by [employer]. It has not been cleared or approved by the Food and Drug Administration. The FDA has determined that such clearance or approval is not necessary. Serum or plasma protein brian urement (mass/volume)Ordered By: Sergio Mcfarland on 07-05-2024 Protein [Mass/Vol] 6.1 g/dL 6.0-8.5 [facility] Serum or plasma urea nitroge n measurement (mass/volume)Ordered By: Juan Hdez on 07-05-2024 Urea nitrogen [Mass/Vol] 4 mg/dL 4-19 [facility] Serum perinuclear neutrophil cytoplasmic antibody titer by immunofluorescenceOrdered By: Sergio Mcfarland on 07-05-2024 Neutrophil cytoplasmic Ab.perinuclear IF (S) [Titer] <1:20 titer Neg:<1:20 [facility] Comment on above: The presence of posi tive fluorescence exhibiting P-ANCA orC-ANCA patterns alone is not specific for the diagnosis ofWegener's Granulomatosis (WG) or microscopic polyangiitis.Decisions about treatment should not be based solely onANCA IFA results. The [employer] ANCA Group Consensusrecommends follow up testing of positive sera with both MD-3 and MPO-ANCA enzyme immunoassays. As many as 5% serumsamples are positive only by EIA. Ref. AM J Clin Qpguem2319;111:507-513. Serum tissue transglutaminas e (tTG) IgA antibody assay (units/volume)Ordered By: Sergio Mcfarland on 07-05-2024 tTG IgA Qn (S) <2 U/mL 0-3 [facility] Comment on above: Negative 0 - 3 Weak Positive 4 - 10 Positive >10 Tissue Transglutaminase (tTG) has been identified as the endomysial antigen. Studies have demonstr- ated that endomysial IgA antibodies have over 99% specificity for gluten sensitive enteropathy. Sodium levelOrdered By: Mami Hdez on 07-05-2024 Sodium [Moles/Vol] 140 mmol/L 133-145 [facility] Total proteinOrdered By: Izabel Hdez on 07-05-2024 Protein [Mass/Vol] 6.2 g/dL 5.9-8.4 [facility] Urine testOrdered By: Helder Geiger on 07-05-2024 HCG ( test) Ql (U) Negative [facility] Comment on above: Very dilute urine sp ecimens, as indicated by a low specificgravity, may not contain quality assurance representative levels of hCG. If is still suspected, a first morning urinespecimen should be collected 48 hours later and tested. White blood cell (WBC) count Ordered By: Juan Hdez on 07-05-2024 WBC (Bld) [#/Vol] 4.6 10*3/uL 4.4-11.0 [facility] 12 Lead EKGon 07-04-2024 12 Lead EKG [facility] [address] [place] [address] 12 Lead EKG 07/04/24 0942 MR#: [id number] Acct: [id number] Name: LIUDMILA WORLEY Rep #: [id number] : 1985 38 From: Lizzeth Castro MD Attending Dr: Dr. Tristen Harrison DO Status : DIS IN Ordering Dr: Gavin Alford DO Date: 07/04/24 Location: [facility] Sex: F C Admitted: 07/04/24 Test Reason : GENRAL Blood Pressure : */* mmHG Vent. Rate : 78 BPM Atrial Rate : 78 BPM P-R Int : 160 ms QRS Dur : 102 ms QT Int : 382 ms P-R-T Axes : 42 66 27 degrees QTcB Int : 435 ms Normal sinus rhythm Normal ECG Confirmed by ELADIO CASTAÑEDA, JOSH ([id number]), commercial production editor VERNELL MONTILLA ([id number]) on 07/07/2024 11:52:56 AM Referred By: Confirmed By: JOSH CASTRO MD 07/07/24 1152 Date Lizzeth Castro MD CC: Dr. Tristen Harrison DO; Dr. Mena Vernon MD; Dr. Gavin Alford DO Signed Normal [facility] Absolute neutrophil countOrd ered By: Harshil Sanches on 07-04-2024 Neutrophils (Bld) [#/Vol] 6.0 10*3/uL 2.0-7.7 [facility] Activated partial thrombopla stin time (aPTT) in platelet poor plasma by coagulation aOrdered By: Gavin Alford on 07-04-2024 aPTT Coag (PPP) [Time] 23.9 s Low 24.1-36.2 [facility] Anion gap in Serum or Plasma Ordered By: Harshil Sanches on 07-04-2024 Anion gap [Moles/Vol] 13 mmol/L - [facility] BUN/creatinine ratioOrdered By: Harshil Sanches on 07-04-2024 Urea nitrogen/Creatinine [Mass ratio] 15.0 mg/mg - [facility] Basic Metabolic Profile (BMP )on 07-04-2024 BUN/CRE 15.0 RATIO Normal 12-27 [facility] Comment on above: Performed By: #### L 500.2500, L501.2450, L500.3400, L100.0100 #### [facility] [address] [place], [address] Calcium [Mass/Vol] 9.3 mg/dL Normal 7.6-11.0 [facility] Comment on above: Performed By: #### L 500.2500, L501.2450, L500.3400, L100.0100 #### [facility] [address] [place], [address] Chloride [Moles/Vol] 102 mmol/L Normal 98-108 [facility] Comment on above: Performed By: #### L 500.2500, L501.2450, L500.3400, L100.0100 #### [facility] [address] [place], [address] CO2 [Moles/Vol] 23.0 mmol/L Normal 21.0-32.0 [facility] Comment on above: Performed By: #### L 500.2500, L501.2450, L500.3400, L100.0100 #### [facility] [address] [place], [address] Creatinine [Mass/Vol] 0.56 mg/dL Low 0.70-1.20 [facility] Comment on above: Performed By: #### L 500.2500, L501.2450, L500.3400, L100.0100 #### [facility] [address] [place], [address] ECRCL 152.99 ml/min Normal 50-250 [facility] Comment on above: Performed By: #### L 500.2500, L501.2450, L500.3400, L100.0100 #### [facility] [address] [place], [address] GAP 13 Normal 5-15 [facility] Comment on above: Performed By: #### L 500.2500, L501.2450, L500.3400, L100.0100 #### [facility] [address] [place], [address] GFR/1.73 sq M.predicted among non-blacks MDRD (S/P/Bld) [Vol rate/Area] 121 mL/min/{1.73_m2} Normal >60 [facility] Comment on above: Result Comment: mL/m in/1.73m2 CKD-EPI Creatinine Equation (2020) Performed By: #### L 500.2500, L501.2450, L500.3400, L100.0100 #### [facility] [address] [place], [address] Glucose [Mass/Vol] 105 mg/dL High 70-99 [facility] Comment on above: Performed By: #### L 500.2500, L501.2450, L500.3400, L100.0100 #### [facility] [address] [place], [address] Potassium [Moles/Vol] 4.0 mmol/L Normal 3.3-5.1 [facility] Comment on above: Performed By: #### L 500.2500, L501.2450, L500.3400, L100.0100 #### [facility] [address] [place], [address] Sodium [Moles/Vol] 138 mmol/L Normal 133-145 [facility] Comment on above: Performed By: #### L 500.2500, L501.2450, L500.3400, L100.0100 #### [facility] [address] [place], [address] Urea nitrogen [Mass/Vol] 8 mg/dL Normal 4-19 [facility] Comment on above: Performed By: #### L 500.2500, L501.2450, L500.3400, L100.0100 #### [facility] [address] [place], [address] Basophil percentageOrdered B y: Harshil Sanches on 07-04-2024 Basophils/100 WBC (Bld) 0.3 % 0-1 [facility] Bilirubin Test strip Ql (U)O rdered By: Harshil Sanches on 07-04-2024 Bilirubin Ql (U) Negative Negative [facility] Bilirubin directOrdered By: Harshil Sanches on 07-04-2024 Bilirubin.direct [Mass/Vol] 0.54 mg/dL High 0.00-0.3 0 [facility] Bilirubin, totalOrdered By: Harshil Sanches on 07-04-2024 Bilirubin [Mass/Vol] 0.80 mg/dL 0.00-1.30 [facility] CBC W/Diff, Automatedon 06-09 Absolute Lymph 0.96 X10 3/uL Normal 0.83-4.51 [facility] Comment on above: Performed By: #### L 500.2500, L501.2450, L500.3400, L100.0100 #### [facility] [address] [place], [address] Absolute Neut 6.0 X10 3/uL Normal 2.0-7.7 [facility] Comment on above: Performed By: #### L 500.2500, L501.2450, L500.3400, L100.0100 #### [facility] [address] [place], [address] Basophils/100 WBC (Bld) 0.3 % Normal 0-1 [facility] Comment on above: Performed By: #### L 500.2500, L501.2450, L500.3400, L100.0100 #### [facility] [address] [place], [address] Eosinophils/100 WBC (Bld) 0.4 % Normal 0-5 [facility] Comment on above: Performed By: #### L 500.2500, L501.2450, L500.3400, L100.0100 #### [facility] [address] [place], [address] Erythrocyte distribution width (RBC) [Ratio] 15.9 % High 11.6-14.6 [facility] Comment on above: Performed By: #### L 500.2500, L501.2450, L500.3400, L100.0100 #### [facility] [address] [place], [address] Hematocrit (Bld) [Volume fraction] 36.0 % Low 37-47 [facility] Comment on above: Performed By: #### L 500.2500, L501.2450, L500.3400, L100.0100 #### [facility] [address] [place], [address] Hemoglobin (Bld) [Mass/Vol] 11.9 g/dL Low 12.0-15. 0 [facility] Comment on above: Performed By: #### L 500.2500, L501.2450, L500.3400, L100.0100 #### [facility] [address] [place], [address] IG% 0.400 Normal 0.0-0.9 [facility] Comment on above: Result Comment: IG% - Immature Granulocytes (promyelocytes, myelocytes and metamyelocytes) > 1% indicates that a LEFT SHIFT is Present. Performed By: #### L 500.2500, L501.2450, L500.3400, L100.0100 #### [facility] [address] [place] [place], [address] Lymphocytes/100 WBC (Bld) 12.7 % Low 19-41 [facility] Comment on above: Performed By: #### L 500.2500, L501.2450, L500.3400, L100.0100 #### [facility] [address] [place], [address] MCH (RBC) [Entitic mass] 25.6 pg Low 27.0-32.0 [facility] Comment on above: Performed By: #### L 500.2500, L501.2450, L500.3400, L100.0100 #### [facility] [address] [place], [address] MCHC (RBC) [Mass/Vol] 33.1 g/dL Normal 32-36 [facility] Comment on above: Performed By: #### L 500.2500, L501.2450, L500.3400, L100.0100 #### [facility] [address] [place], [address] MCV (RBC) [Entitic vol] 77.4 fL Low 81-99 [facility] Comment on above: Performed By: #### L 500.2500, L501.2450, L500.3400, L100.0100 #### [facility] [address] [place], [address] Monocytes/100 WBC (Bld) 6.9 % Normal 0-10 [facility] Comment on above: Performed By: #### L 500.2500, L501.2450, L500.3400, L100.0100 #### [facility] [address] [place], [address] Neutrophils/100 WBC (Bld) 79.3 % High 47-70 [facility] Comment on above: Performed By: #### L 500.2500, L501.2450, L500.3400, L100.0100 #### [facility] [address] [place], [address] Nucleated RBC (Bld) [#/Vol] 0 10*3/uL Normal 0-5 [facility] Comment on above: Performed By: #### L 500.2500, L501.2450, L500.3400, L100.0100 #### [facility] [address] [place], [address] Platelet mean volume (Bld) [Entitic vol] 10.0 fL Normal 6.2-12.0 [facility] Comment on above: Performed By: #### L 500.2500, L501.2450, L500.3400, L100.0100 #### [facility] [address] [place], [address] Platelets (Bld) [#/Vol] 312 10*3/uL Normal 150-450 [facility] Comment on above: Performed By: #### L 500.2500, L501.2450, L500.3400, L100.0100 #### [facility] [address] [place], [address] RBC (Bld) [#/Vol] 4.65 10*6/uL Normal 4.2-5.4 [facility] Comment on above: Performed By: #### L 500.2500, L501.2450, L500.3400, L100.0100 #### [facility] [address] [place], [address] RDW SD 44.5 fl High 35.1-43.9 [facility] Comment on above: Performed By: #### L 500.2500, L501.2450, L500.3400, L100.0100 #### [facility] [address] [place], [address] WBC (Bld) [#/Vol] 7.6 10*3/uL Normal 4.4-11.0 [facility] Comment on above: Performed By: #### L 500.2500, L501.2450, L500.3400, L100.0100 #### [facility] [address] [place], [address] Carbon dioxide, total [Moles /volume] in Central venous bloodOrdered By: Harshil Sanches on 07-04-2024 CO2 [Moles/Vol] 23.0 mmol/L 21.0-32.0 [facility] Chest 1 View (Portable)on Chest 1 View (Portable) [facility] Imaging Services [address] [place] [address] Chest 1 View (Portable) MR#: [id number] Acct: [id number] Name: LIUDMILA WORLEY Rep #: [id number] : 1985 F 38 From: Alon sylvester MD PCP: Dr. Mena Vernon MD Status: REG ER Study: Chest 1 View (Portable) Date of Exam: 07/04/24 Exam# [id number] Ordering Dr: Gavin Alford DO PROCEDURE: CHEST 1 VIEW (PORTABLE) 07/04/2024 REASON FOR EXAM: PREOP TECHNIQUE: Frontal view of the chest. COMPARISON: None FINDINGS: Hardware: None Heart: Cardiac and mediastinal contours are stable. Lungs: The lungs are clear. Bones: The bones are unremarkable. Other: RAD/Chest 1 View (Portable) IMPRESSION: No Acute Findings. Reading Location: [facility] CC: Dr. Mena Vernon MD; Dr. Gavin Alford DO Shank Sorter: Signed Normal [facility] Chloride assayOrdered By: Nancy Sanches on 07-04-2024 Chloride [Moles/Vol] 102 mmol/L 98-108 [facility] Emergency Department Summary on 07-04-2024 Emergency Department Summary [facility] Medical Records Department [address] [place] [address] Emergency Department Summary 07/04/24 MR#: [id number] Acct: [id number] Name: LIUDMILA WORLEY Rep #: [id number] : 1985 38 From: Harshil Sanches DO PCP: Dr. Mena Vernon MD Status:[facility] Gavin Alford DO on [...] flare October of last year diagnosed at [place]. She is told to follow-up with her PCP she has not had any issues until yesterday evening she ate nodule cheese for lunch nothing for dinner. I spoke with on-call surgeon Dr. Austin, reviewed her imagings and labs along with labs from [place]. Reported her AST was 100 at that [...] of Present Illness Chief Complaint: Abd Pain [facility] Medical History ADHD Alcohol use Anxiety Depression [...] masses, no (more content not included)... Normal [facility] Eosinophil percentageOrdered By: Harshil Sanches on 07-04-2024 Eosinophils/100 WBC (Bld) 0.4 % 0-5 [facility] Epithelial cells.squamous LM Ql (Urine sed)Ordered By: Harshil Sanches on 07-04-2024 Epithelial cells.squamous LM.HPF (Urine sed) [#/Area] 0 /[HPF] 5-10 [facility] Erythrocyte distribution wid th (RBC) [Ratio]Ordered By: Harshil Sanches on 07-04-2024 Erythrocyte distribution width (RBC) [Entitic vol] 44.5 fL High 35.1-43.9 [facility] Erythrocyte distribution wid th ratioOrdered By: Harshil Sanches on 07-04-2024 Erythrocyte distribution width (RBC) [Ratio] 15.9 % High 11.6-14.6 [facility] Estimation of creatinine jermain aranceOrdered By: Harshil Sanches on 07-04-2024 Estimated Creatinine Clearance Calc 152.99 ml/min 50-250 [facility] GFR/1.73 sq M.predicted shala g non-blacks MDRD (S/P/Bld) [Vol rate/Area]Ordered By: Harshil Sanches on 07-04-2024 Estimated GFR (MDRD) Non-Af Amer 121 >60 [facility] Comment on above: mL/min/1.73m2 CKD-EP I Creatinine Equation (2020) Gallbladderon 07-04-2024 Gallbladder [facility] Imaging Services [address] [place] [address] Gallbladder MR#: [id number] Acct: [id number] Name: LIUDMILA WORLEY Rep #: [id number] : 1985 F 38 From: Lexus thomas MD PCP: Dr. Mena Vernon MD Status: REG ER Study: Gallbladder Date of Exam: 07/04/24 Exam# [id number] Ordering Dr: Harshil Sanches DO PROCEDURE: GALLBLADDER [...] of acute cholecystitis. Reading Location: [place] [address] CC: Dr. Mena Vernon MD; Dr. Harshil Sanches DO Shank Sorter: Signed Normal [facility] Gamma glutamyl transferase ( GGT) measurementOrdered By: Juan Hdez on 07-04-2024 Amylase [Catalytic activity/Vol] 213 U/L High 0-60 [facility] Comment on above: Performed at: [address] Director: Brett Jasso PhD, Phone: [phone] Glucose Ql (U)Ordered By: Nancy Sanches on 07-04-2024 Urine Glucose (UA) Normal mg/dl Normal [facility] H AND P Exam - [place] 07-04-2024 H&P Exam - Hospitalist [facility] Medical Records Department [address] [place] [address] H P Exam - Hospitalist 07/04/24 1011 MR#: [id number] Acct: [id number] Name: LIUDMILA WORLEY Rep #: [id number] : 1985 38 From: Juan Hdez MD PCP: Dr. Mena Vernon MD Status:ADM IN Location: [facility]-4 HPI - General General Date of Admission: [...] pain October 2023 and she went to [facility] where she had ultrasound. She was told that she has a gallbladder stone and probably she has elevated transaminases as per Dr. Austin at that time. I tried to log into [employer] to check it but could not. She had right upper quadrant sonogram in ED shows cholelithiasis without features of acute cholecystitis. ED physician consulted and she wanted to admit under medicine with GI consult. [facility] Medical History Wears glasses Depression [...] Status: Nor (more content not included)... Normal [facility] Hematocrit Auto (Bld) [Volum e fraction]Ordered By: Harshil Sanches on 07-04-2024 Hematocrit (Bld) [Volume fraction] 36.0 % Low 37-47 [facility] Hemoglobin measurementOrdere d By: Harshil Sanches on 07-04-2024 Hemoglobin (Bld) [Mass/Vol] 11.9 g/dL Low 12.0-15. 0 [facility] Immature granulocytes/100 WB C Auto (Bld)Ordered By: Harshil Sanches on 07-04-2024 Immature granulocytes/100 WBC (Bld) 0.400 % 0.0-0.9 [facility] Comment on above: IG% - Immature Granu locytes (promyelocytes, myelocytes and metamyelocytes) > 1% indicates that a LEFT SHIFT is Present. International normalized rat io (INR) calculationOrdered By: Gavin Alford on 07-04-2024 INR Coag (Bld) [Relative time] 1.0 {INR} [facility] Ketones Test strip Ql (U)Ord ered By: Harshil Sanches on 07-04-2024 Ketones Ql (U) Negative Negative [facility] Laboratory - Chemistry and C hemistry - challengeOrdered By: Harshil Sanches on 07-04-2024 AST [Catalytic activity/Vol] 594 U/L High <32 [facility] Lipaseon 07-04-2024 Lipase [Catalytic activity/Vol] 56 U/L Normal 13-75 [facility] Comment on above: Result Comment: Plegarett baeza note: LIPASE revised reference range effective 22. New Lipase methodology. Expected to produce lower values than the previous assay method. NEW Reference Range: 13 - 75 U/L Performed By: #### L 500.2500, L501.2450, L500.3400, L100.0100 #### [facility] [address] [place], [address] Lipase measurementOrdered By : Harshil Sanches on 07-04-2024 Lipase [Catalytic activity/Vol] 56 U/L 13-75 [facility] Comment on above: Please note:LIPASE r evised reference range effective 22. New Lipase methodology. Expected to produce lower values than the previous assay method. NEW Reference Range: 13 - 75 U/L Liver Profileon 07-04-2024 Albumin [Mass/Vol] 4.2 g/dL Normal 3.5-5.0 [facility] Comment on above: Performed By: #### L 500.2500, L501.2450, L500.3400, L100.0100 #### [facility] [address] [place], [address] ALK PHOS 135 U/L High 35-104 [facility] Comment on above: Performed By: #### L 500.2500, L501.2450, L500.3400, L100.0100 #### [facility] [address] [place], [address] ALT [Catalytic activity/Vol] 352 U/L High <=34 [facility] Comment on above: Performed By: #### L 500.2500, L501.2450, L500.3400, L100.0100 #### [facility] [address] [place], [address] AST [Catalytic activity/Vol] 594 U/L High <=31 [facility] Comment on above: Performed By: #### L 500.2500, L501.2450, L500.3400, L100.0100 #### [facility] [address] [place], [address] Bilirubin [Mass/Vol] 0.80 mg/dL Normal 0.00-1.30 [facility] Comment on above: Performed By: #### L 500.2500, L501.2450, L500.3400, L100.0100 #### [facility] [address] [place], [address] Bilirubin.direct [Mass/Vol] 0.54 mg/dL High 0.00-0.3 0 [facility] Comment on above: Performed By: #### L 500.2500, L501.2450, L500.3400, L100.0100 #### [facility] [address] [place], [address] Globulin (S) [Mass/Vol] 2.4 g/dL Normal 2.2-4.2 [facility] Comment on above: Performed By: #### L 500.2500, L501.2450, L500.3400, L100.0100 #### [facility] [address] [place], [address] T PROT 6.6 g/dL Normal 5.9-8.4 [facility] Comment on above: Performed By: #### L 500.2500, L501.2450, L500.3400, L100.0100 #### [facility] [address] [place], [address] Lymphocytes Auto (Unsp spec) [#/Vol]Ordered By: Harshil Sanches on 07-04-2024 Lymphocytes (Bld) [#/Vol] 0.96 10*3/uL 0.83-4.5 1 [facility] Lymphocytes/100 WBC Auto (Un sp spec)Ordered By: Harshil Sanches on 07-04-2024 Lymphocytes/100 WBC (Bld) 12.7 % Low 19-41 [facility] MCV (mean corpuscular volume ) determinationOrdered By: Harshil Sanches on 07-04-2024 MCV (RBC) [Entitic vol] 77.4 fL Low 81-99 [facility] Magnesiumon 07-04-2024 Magnesium [Mass/Vol] 1.9 mg/dL Normal 1.5-2.2 [facility] Comment on above: Performed By: #### L 501.5200 #### [facility] [address] [place], [address] Magnesium (Unsp spec) [Mass/ Vol]Ordered By: Juan Hdez on 07-04-2024 Magnesium [Mass/Vol] 1.9 mg/dL 1.5-2.2 [facility] Magnesium measurement (mass/ volume)Ordered By: Juan Hdez on 07-04-2024 Magnesium (Unsp spec) [Mass/Vol] 1.9 mg/dL 1.5-2.2 [facility] Mean corpuscular hemoglobin (MCH) determinationOrdered By: Harshil Sanches on 07-04-2024 MCH (RBC) [Entitic mass] 25.6 pg Low 27.0-32.0 [facility] Mean corpuscular hemoglobin concentration (MCHC) determinationOrdered By: Harshil Sanches on 07-04-2024 MCHC (RBC) [Mass/Vol] 33.1 g/dL 32-36 [facility] Mean platelet volume determi nationOrdered By: Harshil Sanches on 07-04-2024 Platelet mean volume (Bld) [Entitic vol] 10.0 fL 6.2-12.0 [facility] Microscopic analysis of urin e for red blood cells (RBC)Ordered By: Harshil Sanches on 07-04-2024 Microscopic analysis of urine for red blood cells (RBC) 0 SEEN /hpf 0-5 [facility] Urine RBC 0 SEEN /hpf 0-5 [facility] Monocyte percentageOrdered B y: Harshil Sanches on 07-04-2024 Monocytes/100 WBC (Bld) 6.9 % 0-10 [facility] Mucus LM Ql (Urine sed)Order ed By: Harshil Sanches on 07-04-2024 Mucus Ql (Urine sed) 0 SEEN /hpf [facility] Neutrophil percentageOrdered By: Harshil Sanches on 07-04-2024 Neutrophils/100 WBC (Bld) 79.3 % High 47-70 [facility] Nitrite Test strip Ql (U)Ord ered By: Harshil Sanches on 07-04-2024 Nitrite Ql (U) Negative Negative [facility] Nucleated red blood cell per centageOrdered By: Harshil Sanches on 07-04-2024 Nucleated RBC/100 WBC (Bld) [Ratio] 0 % 0-5 [facility] Partial Thromboplast Timeon 07-04-2024 aPTT Coag (Bld) [Time] 23.9 s Low 24.1-36.2 [facility] Comment on above: Performed By: #### L 501.5101 #### [facility] [address] [place], [address] Platelet countOrdered By: Nancy Sanches on 07-04-2024 Platelets (Bld) [#/Vol] 312 10*3/uL 150-450 [facility] Potassium (Unsp spec) [Mass/ Vol]Ordered By: Harshil Sanches on 07-04-2024 Potassium [Moles/Vol] 4.0 mmol/L 3.3-5.1 [facility] ,Urineon 07-04-2024 Beta HCG ( test) Ql (U) Negative Normal [facility] Comment on above: Result Comment: Very dilute urine specimens, as indicated by a low specific gravity, may not contain quality assurance representative levels of hCG. If is still suspected, a first morning urine specimen should be collected 48 hours later and tested. Performed By: #### L 501.5101 #### [facility] [address] [place], [address] Protein Test strip Ql (U)Ord ered By: Harshil Sanches on 07-04-2024 Protein Ql (U) 30 mg/dl High Negative [facility] Prothrombin Time w/INRon INR Coag (PPP) [Relative time] 1.0 {INR} Normal [facility] Comment on above: Performed By: #### L 501.5101 #### [facility] [address] [place], [address] Prothrombin timeOrdered By: Gavin Alford on 07-04-2024 PT Coag (PPP) [Time] 13.5 s Normal 11.7-14.9 [facility] Comment on above: Performed By: #### L 501.5101 #### [facility] [address] [place], [address] RBC Auto (Bld) [#/Vol]Ordere d By: Harshil Sanches on 07-04-2024 RBC (Bld) [#/Vol] 4.65 10*6/uL 4.2-5.4 [facility] Serum creatinine measurement (mass/volume)Ordered By: Harshil Sanches on 07-04-2024 Creatinine [Mass/Vol] 0.56 mg/dL Low 0.70-1.20 [facility] Serum globulin measurementOr dered By: Harshil Sanches on 07-04-2024 Globulin (S) [Mass/Vol] 2.4 g/dL 2.2-4.2 [facility] Serum glucose measurement (m ass/volume)Ordered By: Harshil Sanches on 07-04-2024 Glucose [Mass/Vol] 105 mg/dL High 70-99 [facility] Serum or plasma alanine wilde otransferase (ALT) measurementOrdered By: Harshil Sanches on 07-04-2024 ALT [Catalytic activity/Vol] 352 U/L High <35 [facility] Serum or plasma albumin brian urement (mass/volume)Ordered By: Harshil Sanches on 07-04-2024 Albumin [Mass/Vol] 4.2 g/dL 3.5-5.0 [facility] Serum or plasma alkaline eduardo sphatase measurementOrdered By: Harshil Sanches on 07-04-2024 ALP [Catalytic activity/Vol] 135 U/L High 35-104 [facility] Serum or plasma calcium brian urement (mass/volume)Ordered By: Harshil Sanches on 07-04-2024 Calcium [Mass/Vol] 9.3 mg/dL 7.6-11.0 [facility] Serum or plasma urea nitroge n measurement (mass/volume)Ordered By: Harshil Sanches on 07-04-2024 Urea nitrogen [Mass/Vol] 8 mg/dL 4-19 [facility] Sodium levelOrdered By: Chandan Sanches on 07-04-2024 Sodium [Moles/Vol] 138 mmol/L 133-145 [facility] Squamous epithelial cells de tection in urine sediment by light microscopyOrdered By: Harshil Sanches on 07-04-2024 Epithelial cells.squamous LM Ql (Urine sed) 0-5 SEEN /hpf 5-10 [facility] Total proteinOrdered By: Maynor Sanches on 07-04-2024 Protein [Mass/Vol] 6.6 g/dL 5.9-8.4 [facility] Type AND Screenon 07-04-2024 ABO and Rh group Nom (Bld) Blood group A B Rh(D) positive Normal [facility] Comment on above: Order Comment: S Performed By: #### L 501.5101 #### [facility] [address] [place], [address] Urinalysis, Completeon 07-04 EPI,SQUAMOUS 0-5 SEEN Normal 5-10 [facility] Comment on above: Order Comment: COLLE CTOR TO SPECIFY Performed By: #### L 501.5101 #### [facility] [address] [place], [address] WBC 0-5 SEEN Normal 0-5 [facility] Comment on above: Order Comment: MILTON CTOR TO SPECIFY Performed By: #### L 501.5101 #### [facility] [address] [place], [address] BACTERIA 0 SEEN Normal None Seen [facility] Comment on above: Order Comment: MILTON CTOR TO SPECIFY Performed By: #### L 501.5101 #### [facility] [address] [place], [address] Mucus Ql (Urine sed) 0 SEEN Normal [facility] Comment on above: Order Comment: COLLE CTOR TO SPECIFY Performed By: #### L 501.5101 #### [facility] [address] [place], [address] RBC 0 SEEN Normal 0-5 [facility] Comment on above: Order Comment: MILTON CTOR TO SPECIFY Performed By: #### L 501.5101 #### [facility] [address] [place], [address] Urine blood detectionOrdered By: Harshil Sanches on 07-04-2024 Urine Occult Blood Negative Negative [facility] Urine clarityOrdered By: Maynor Sanches on 07-04-2024 Clarity (U) Clear Clear [facility] Urine color determinationOrd ered By: Harshil Sanches on 07-04-2024 Color (U) Yellow Yellow [facility] Urine glucose detectionOrder ed By: Harshil Sanches on 07-04-2024 Glucose Ql (U) Normal mg/dl Normal [facility] Urine leukocyte esterase det ection by dipstickOrdered By: Harshil Sanches on 07-04-2024 Leukocyte esterase Test strip Ql (U) Negative Negative [facility] Urine pHOrdered By: Harshil means on 07-04-2024 pH (U) 7.0 [pH] 5.0 - 8.0 [facility] Urine testOrdered By: Harshil Sanches on 07-04-2024 HCG ( test) Ql (U) Negative [facility] Comment on above: Very dilute urine sp ecimens, as indicated by a low specificgravity, may not contain quality assurance representative levels of hCG. If is still suspected, a first morning urinespecimen should be collected 48 hours later and tested. Urine sediment bacteria coun t by microscopy (number/high power field)Ordered By: Harshil Sanches on 07-04-2024 Bacteria LM.HPF (Urine sed) [#/Area] 0 /[HPF] None Seen [facility] Urine specific gravity measu rementOrdered By: Harshil Sanches on 07-04-2024 Specific gravity (U) [Rel density] 1.010 1.002-1.03 0 [facility] Urine urobilinogen measureme ntOrdered By: Harshil Sanches on 07-04-2024 Urobilinogen Ql (U) Normal mg/dl Normal [facility] Urobilinogen Ql (U)Ordered B y: Harshil Sanches on 07-04-2024 Urine Urobilinogen Normal mg/dl Normal [facility] White blood cell (WBC) count Ordered By: Harshil Sanches on 07-04-2024 WBC (Bld) [#/Vol] 7.6 10*3/uL 4.4-11.0 [facility] White blood cell countOrdere d By: Harshil Sanches on 07-04-2024 Urine WBC 0-5 SEEN /hpf 0-5 [facility] White blood cell count 0-5 SEEN /hpf 0-5 [facility] aPTT Coag (PPP) [Time]Ordere d By: Gavin Alford on 07-04-2024 aPTT Coag (Bld) [Time] 23.9 s Low 24.1-36.2 [facility] CNPNon 05-17-2024 CNPN Telephone (INTMWS) LIUDMILA WORLEY ([id number]) 1985 F Date Time Provider Department 05/17/24 MENA VERNON INTMWS During your visit today, we recorded the following information about you: Ashley Sprague, RN 05/17/2024 12:25 PM Signed Pt states [...] Adderall Provider: Dr Vernon [facility] [place] [employer] Phone number: [phone] Patient ID number: [id number] Pharmacy Name: [facility] Telephone number: [phone] Leora Gambino MA 05/17/2024 1:35 PM Signed Tried to complete through covermymeds but would not process. Called [facility] at [phone] and completed with rep for adderall 30 [...] filled. Pt notified via my chart. Ashley Sprague, RN 05/18/2024 10:36 AM Signed Pt states it is for the brand name Adderall to get the CHAZ 1. She states Dr Vernon knows about this. Leora Gambino MA 05/18/2024 11:05 AM Signed Called and spoke to [facility] PA is still in process that was done over the phone for Brand name ADDERALL 30 mg BID. Fax received yesterday was from [facility] submission. AIXA Meng Janice, LPN 05/19/2024 4:17 PM Signed Denial rec'd. They note they need notes noting pt has positive effects with current treatment. Office notes faxed for review. Leora Gambino MA 05/24/2024 11:13 AM Signed Called [facility] [phone] and did not receive chart notes. [facility] rep advised should re-submitted again for Name Brand : Adderall 30 mg BID and faxed chart notes Auth ID [id number] Leyla Hussein LPN 05/25/2024 8:55 AM Signed [...] Status:Closed by LEYLA HUSSEIN on 05/25/24 Normal [facility] CBC panel Auto (Bld)on 04-19 Erythrocyte distribution width (RBC) [Ratio] 14.8 % Normal 11.5-15.0 [facility] Comment on above: Order Comment: Speci men Type: BLOOD SPECIMEN Ordering Facility: [facility] Address: [address] [place] [address] Performed By: #### 2 4331-1, 2276-4, 79939-3, 66424-0 #### [facility] CLIA [id number] [address] [place] [address] [place] Hematocrit (Bld) [Volume fraction] 37.3 % Normal 36.0-46.0 [facility] Comment on above: Order Comment: Speci men Type: BLOOD SPECIMEN Ordering Facility: [facility] Address: [address] [place] [address] Performed By: #### 2 4331-1, 6-4, 27142-1, 78249-0 #### [facility] CLIA [id number] [address] [place] [address] [place] Hemoglobin (Bld) [Mass/Vol] 11.7 g/dL Normal 11.5-15. 5 [facility] Comment on above: Order Comment: Speci men Type: BLOOD SPECIMEN Ordering Facility: [facility] Address: [address] [place] [address] Performed By: #### 2 4331-1, 2276-4, 11385-8, 94058-0 #### [facility] CLIA [id number] [address] [place] [address] [place] MCH (RBC) [Entitic mass] 24.5 pg Low 26.0-34.0 [facility] Comment on above: Order Comment: Speci men Type: BLOOD SPECIMEN Ordering Facility: [facility] Address: [address] [place] [address] Performed By: #### 2 4331-1, 2276-4, 35316-4, 84282-6 #### [facility] CLIA [id number] [address] [place] [address] [place] MCHC (RBC) [Mass/Vol] 31.4 g/dL Normal 30.5-36.0 [facility] Comment on above: Order Comment: Speci men Type: BLOOD SPECIMEN Ordering Facility: [facility] Address: [address] [place] [address] Performed By: #### 2 4331-1, 2275-4, 87211-4, 16926-7 #### [facility] CLIA [id number] [address] [place] [address] [place] MCV (RBC) [Entitic vol] 78.0 fL Low 80.0-100.0 C [facility] Comment on above: Order Comment: Speci men Type: BLOOD SPECIMEN Ordering Facility: [facility] Address: [address] [place] [address] Performed By: #### 2 4331-1, 2275-4, 75049-2, 46868-0 #### [facility] CLIA [id number] [address] [place] [address] [place] Nucleated RBC (Bld) [#/Vol] 10*3/uL Normal <0.01 [facility] Comment on above: Order Comment: Speci men Type: BLOOD SPECIMEN Ordering Facility: [facility] Address: [address] [place] [address] Performed By: #### 2 4331-1, 2275-4, 00870-1, 07895-1 #### [facility] CLIA [id number] [address] [place] [address] [place] Platelet mean volume (Bld) [Entitic vol] 9.7 fL Normal 9.0-12.7 [facility] Comment on above: Order Comment: Speci men Type: BLOOD SPECIMEN Ordering Facility: [facility] Address: [address] [place] [address] Performed By: #### 2 4331-1, 2275-4, 00273-8, 30883-6 #### [facility] CLIA [id number] [address] [place] [address] [place] Platelets (Bld) [#/Vol] 378 10*3/uL Normal 150-400 [facility] Comment on above: Order Comment: Speci men Type: BLOOD SPECIMEN Ordering Facility: [facility] Address: [address] [place] [address] Performed By: #### 2 4331-1, 2276-4, 03216-9, 86932-1 #### [facility] CLIA [id number] [address] [place] [address] [place] RBC (Bld) [#/Vol] 4.78 10*6/uL Normal 3.90-5.20 [facility] Comment on above: Order Comment: Speci men Type: BLOOD SPECIMEN Ordering Facility: [facility] Address: [address] [place] [address] Performed By: #### 2 4331-1, 2276-4, 78165-8, 31155-2 #### [facility] CLIA [id number] [address] [place] [address] [place] WBC (Bld) [#/Vol] 5.07 10*3/uL Normal 3.70-11.00 [facility] Comment on above: Order Comment: Speci men Type: BLOOD SPECIMEN Ordering Facility: [facility] Address: [address] [place] [address] Performed By: #### 2 4331-1, 2276-4, 60726-1, 46516-8 #### [facility] CLIA [id number] [address] [place] [address] [place] CNOVon 04-19-2024 CNOV Office Visit (INTMWS ) LIUDMILA WORLEY ([id number]) 1985 F Date Time Provider Department 04/19/24 8:40 AM MENA VERNON INTMWS During your visit today, we recorded the following information about you: Pulse Respiration Blood pressure Weight 97/minute 16/minute 128/84 98 kg Mena Vernon MD 04/19/2024 9:45 AM Signed This note was created using Deenty. Subjective Liudmila Worley is a 38 year [...] trying to make healthier choices, such as [place] yogurt and fruit parfaits. She also reports [...] Height as of 10/22/22: 160 cm (5' 3"). Weight as of this encounter: 98 kg [...] due to (more content not included)... Normal [facility] Comprehensive metabolic 2000 panelon 04-19-2024 Albumin [Mass/Vol] 4.4 g/dL Normal 3.9-4.9 [facility] Comment on above: Order Comment: Speci men Type: BLOOD SPECIMEN Ordering Facility: [facility] Address: [address] [place] [address] Performed By: #### 2 4331-1, 2276-4, 63319-2, 42494-7 #### [facility] CLIA [id number] [address] [place] [address] [place] ALP [Catalytic activity/Vol] 100 U/L Normal 34-123 [facility] Comment on above: Order Comment: Speci men Type: BLOOD SPECIMEN Ordering Facility: [facility] Address: [address] [place] [address] Performed By: #### 2 4331-1, 2276-4, 30380-3, 67193-7 #### [facility] CLIA [id number] [address] [place] [address] [place] ALT [Catalytic activity/Vol] 32 U/L Normal 7-38 [facility] Comment on above: Order Comment: Speci men Type: BLOOD SPECIMEN Ordering Facility: [facility] Address: [address] [place] [address] Performed By: #### 2 4331-1, 2276-4, 68231-4, 62233-8 #### [facility] CLIA [id number] [address] [place], [place] [address] [place] Anion gap [Moles/Vol] 8 mmol/L Normal 8-15 [facility] Comment on above: Order Comment: Speci men Type: BLOOD SPECIMEN Ordering Facility: [facility] Address: [address] [place] [address] Performed By: #### 2 4331-1, 2276-4, 28690-7, 21370-4 #### [facility] CLIA [id number] [address] [place], [place] [address] [place] AST [Catalytic activity/Vol] 22 U/L Normal 13-35 [facility] Comment on above: Order Comment: Speci men Type: BLOOD SPECIMEN Ordering Facility: [facility] Address: [address] [place] [address] Performed By: #### 2 4331-1, 2276-4, 27694-8, 92361-3 #### [facility] CLIA [id number] [address] [place] [address] [place] Bilirubin [Mass/Vol] 0.2 mg/dL Normal 0.2-1.3 [facility] Comment on above: Order Comment: Speci men Type: BLOOD SPECIMEN Ordering Facility: [facility] Address: [address] [place] [address] Performed By: #### 2 4331-1, 2276-4, 28330-7, 67852-7 #### [facility] CLIA [id number] [address] [place] [address] [place] Calcium [Mass/Vol] 9.6 mg/dL Normal 8.5-10.2 [facility] Comment on above: Order Comment: Speci men Type: BLOOD SPECIMEN Ordering Facility: [facility] Address: [address] [place] [address] Performed By: #### 2 4331-1, 2276-4, 41842-9, 68085-6 #### [facility] CLIA [id number] [address] [place] [address] [place] Chloride [Moles/Vol] 105 mmol/L Normal 98-107 [facility] Comment on above: Order Comment: Speci men Type: BLOOD SPECIMEN Ordering Facility: [facility] Address: [address] [place] [address] Performed By: #### 2 4331-1, 2276-4, 49059-0, 04407-4 #### [facility] CLIA [id number] [address] [place] [address] [place] CO2 [Moles/Vol] 24 mmol/L Normal 22-30 [facility] Comment on above: Order Comment: Speci men Type: BLOOD SPECIMEN Ordering Facility: [facility] Address: [address] [place] [address] Performed By: #### 2 4331-1, 2276-4, 80156-4, 87269-8 #### [facility] CLIA [id number] [address] [place] [address] [place] Creatinine [Mass/Vol] 0.59 mg/dL Normal 0.58-0.96 [facility] Comment on above: Order Comment: Speci men Type: BLOOD SPECIMEN Ordering Facility: [facility] Address: [address] [place] [address] Performed By: #### 2 4331-1, 2276-4, 98400-9, 60272-7 #### [facility] CLIA [id number] [address] [place] [address] [place] Creatinine and Glomerular filtration rate.predicted panel (S/P/Bld) 120 mL/min/1.73m??? Normal >=60 [facility] Comment on above: Order Comment: Speci men Type: BLOOD SPECIMEN Ordering Facility: [facility] Address: [address] [place] [address] Result Comment: Angela mated Glomerular Filtration Rate [...] actual GFR. Performed By: #### 2 4331-1, 6-4, 39819-6, 83566-7 #### [facility] CLIA [id number] [address] [place] [address] [place] Glucose [Mass/Vol] 91 mg/dL Normal 74-99 [facility] Comment on above: Order Comment: Kait brock Type: BLOOD SPECIMEN Ordering Facility: [facility] Address: [address] [place] [address] Result Comment: The [place] Diabetes Association (ADA) provides guidance for cutoff [...] Standards of Medical Care in Diabetes 2016, [place] Diabetes Association. Diabetes Care. 2016.39(Suppl 1). Performed By: #### 2 4331-1, 2275-4, 67365-2, 74926-0 #### [facility] CLIA [id number] [address] [place], [place] [address] [place] Potassium [Moles/Vol] 4.2 mmol/L Normal 3.7-5.1 [facility] Comment on above: Order Comment: Kait brock Type: BLOOD SPECIMEN Ordering Facility: [facility] Address: [address] [place] [address] Performed By: #### 2 4331-1, 2275-4, 09342-9, 21926-3 #### [facility] CLIA [id number] [address] [place] [address] [place] Protein [Mass/Vol] 7.0 g/dL Normal 6.3-8.0 [facility] Comment on above: Order Comment: Speci men Type: BLOOD SPECIMEN Ordering Facility: [facility] Address: [address] [place] [address] Performed By: #### 2 4331-1, 2276-4, 43045-9, 35766-2 #### [facility] CLIA [id number] [address] [place] [address] [place] Sodium [Moles/Vol] 137 mmol/L Normal 136-144 [facility] Comment on above: Order Comment: Speci men Type: BLOOD SPECIMEN Ordering Facility: [facility] Address: [address] [place] [address] Performed By: #### 2 4331-1, 6-4, 80075-1, 35108-9 #### [facility] CLIA [id number] [address] [place] [address] [place] Urea nitrogen [Mass/Vol] 10 mg/dL Normal 7-21 [facility] Comment on above: Order Comment: Speci men Type: BLOOD SPECIMEN Ordering Facility: [facility] Address: [address] [place] [address] Performed By: #### 2 4331-1, 2276-4, 00201-2, 78667-4 #### [facility] CLIA [id number] [address] [place], [place] [address] [place] Ferritin SerPl-mCncon 2024 Ferritin [Mass/Vol] 17.6 ng/mL Normal 14.7-205.1 [facility] Comment on above: Order Comment: Speci men Type: BLOOD SPECIMEN Ordering Facility: [facility] Address: [address] [place] [address] Performed By: #### 2 4331-1, 2276-4, 60466-4, 00815-4 #### [facility] CLIA [id number] [address] [place] [address] [place] Iron and Iron binding capaci ty panelon 04-19-2024 Iron [Mass/Vol] 34 ug/dL Low 41-186 [facility] Comment on above: Order Comment: Speci men Type: BLOOD SPECIMEN Ordering Facility: [facility] Address: [address] [place] [address] Performed By: #### 2 4331-1, 2276-4, 58254-9, 80414-2 #### [facility] CLIA [id number] [address] [place] [address] [place] Iron binding capacity [Mass/Vol] 407 ug/dL High 232-386 [facility] Comment on above: Order Comment: Speci men Type: BLOOD SPECIMEN Ordering Facility: [facility] Address: [address] [place] [address] Performed By: #### 2 4331-1, 2276-4, 46353-9, 62274-6 #### [facility] CLIA [id number] [address] [place] [address] [place] Iron/TIBC [Molar ratio] 8.4 % Low 15.0-57.0 C [facility] Comment on above: Order Comment: Speci men Type: BLOOD SPECIMEN Ordering Facility: [facility] Address: [address] [place] [address] Performed By: #### 2 4331-1, 2276-4, 74519-3, 71027-1 #### [facility] CLIA [id number] [address] [place] [address] [place] Lipid 1996 panelon 5 Cholesterol [Mass/Vol] 200 mg/dL High <200 [facility] Comment on above: Order Comment: Speci men Type: BLOOD SPECIMEN Ordering Facility: [facility] Address: [address] [place] [address] Result Comment: <200 mg/dL, Desirable 200-239 mg/dL, Borderline high >239 mg/dL, High Performed By: #### 2 4331-1, 6-4, 26777-1, 59978-3 #### [facility] CLIA [id number] [address] [place] [address] [place] Cholesterol in HDL [Mass/Vol] 47 mg/dL Normal >39 [facility] Comment on above: Order Comment: Kait brock Type: BLOOD SPECIMEN Ordering Facility: [facility] Address: [address] [place] [address] Result Comment: 40-5 9 mg/dL, Acceptable >59 mg/dL, High: Negative risk factor for coronary heart disease <40 mg/dL, Low: Positive risk factor for coronary heart disease Performed By: #### 2 4331-1, 6-4, 21726-2, 80364-5 #### [facility] CLIA [id number] [address] [place] [address] [place] Cholesterol in LDL [Mass/Vol] 143 mg/dL High <100 [facility] Comment on above: Order Comment: Kait brock Type: BLOOD SPECIMEN Ordering Facility: [facility] Address: [address] [place] [address] Result Comment: <100 mg/dL, Optimal 100-129 mg/dL, Near optimal/above optimal 130-159 mg/dL, Borderline high 160-189 mg/dL, High >189 mg/dL, Very high Secondary prevention optimal LDL Cholesterol levels are recommended to be < 70 mg/dL Performed By: #### 2 4331-1, 2275-4, 23652-7, 77163-6 #### [facility] CLIA [id number] [address] [place] [address] [place] Cholesterol in LDL/Cholesterol in HDL [Mass ratio] 3.04 {ratio} High <2.54 [facility] Comment on above: Order Comment: Kait brock Type: BLOOD SPECIMEN Ordering Facility: [facility] Address: [address] [place] [address] Result Comment: Refe rence: 1. National Cholesterol Education Program ATP III Guideline At-A-Glance Quick Desk Reference: National Heart, Lung, and Blood [place]. National Institutes of Health. 2001: NIH Publication No. 01-3305. 2. An International Atherosclerosis Society position paper: global recommendations for the management of dyslipidemia: executive summary, Atherosclerosis. 2014: 232(2):410-413. Performed By: #### 2 4331-1, 6-4, 04508-5, 31287-0 #### [facility] CLIA [id number] [address] [place] [address] [place] Cholesterol in VLDL [Mass/Vol] 10 mg/dL Normal <30 [facility] Comment on above: Order Comment: Kait brock Type: BLOOD SPECIMEN Ordering Facility: [facility] Address: [address] [place] [address] Performed By: #### 2 4331-1, 2275-4, 44188-9, 91416-4 #### [facility] CLIA [id number] [address] [place] [address] [place] Cholesterol non HDL [Mass/Vol] 153 mg/dL High <130 [facility] Comment on above: Order Comment: Kait brock Type: BLOOD SPECIMEN Ordering Facility: [facility] Address: [address] [place] [address] Result Comment: <130 mg/dL, Optimal 130-159 mg/dL, Near optimal/above optimal 160-189 mg/dL, Borderline high 190-219 mg/dL, High >219 mg/dL, Very high Secondary prevention optimal non HDL Cholesterol levels are recommended to be <100 mg/dL Performed By: #### 2 4331-1, 6-4, 59223-1, 25834-2 #### [facility] CLIA [id number] [address] [place] [address] [place] Cholesterol.total/Cholester ol in HDL [Mass ratio] 4.26 {ratio} Normal <5.10 [facility] Comment on above: Order Comment: Chazi men Type: BLOOD SPECIMEN Ordering Facility: [facility] Address: [address] [place] [address] Performed By: #### 2 4331-1, 2276-4, 94251-8, 43851-2 #### [facility] CLIA [id number] [address] [place] [address] [place] FASTING TIME 12 hrs Normal [facility] Comment on above: Order Comment: Speci men Type: BLOOD SPECIMEN Ordering Facility: [facility] Address: [address] [place] [address] Performed By: #### 2 4331-1, 2276-4, 22772-1, 24962-2 #### [facility] CLIA [id number] [address] [place] [address] [place] Triglyceride [Mass/Vol] 48 mg/dL Normal <150 C [facility] Comment on above: Order Comment: Speci men Type: BLOOD SPECIMEN Ordering Facility: [facility] Address: [address] [place] [address] Result Comment: <150 mg/dL, Normal 150-199 mg/dL, Borderline high 200-499 mg/dL, High >499 mg/dL, Very high Performed By: #### 2 4331-1, 6-4, 66611-8, 72836-3 #### [facility] CLIA [id number] [address] [place] [address] [place] CNOVon 04-14-2024 CNOV Office Visit (UCWSTR ) LIUDMILA WORLEY ([id number]) 1985 F Date Time Provider Department 04/14/24 7:45 PM ALIZA MCNAMARA [facility] During your visit today, we recorded the following information about you: Temperature Pulse Respiration Blood pressure 97.4 degrees 102/minute 16/minute 136/82 Weight 99.7 kg Aliza Mcnamara APRN.CNP 04/14/2024 8:08 PM Signed Subjective The history is provided by the patient. No side panel padder was used. HPI Liudmila Worley is a [...] have confirmed and edited as necessary, the [facility] Review of Systems Constitutional: Negative for [...] or follow up with PCP for re-evaluation. Peyman Simmons 2 every 8 hours, do not combine [...] tabletTake 1 (more content not included)... Normal [facility] [place] 12-03-2023 [facility] Telephone (INTMWS) LIUDMILA WORLEY ([id number]) 1985 F Date Time Provider Department 12/03/23 MENA VERNON INTMWS During your visit today, we recorded the following information about you: Aimee Ludwig RN 12/03/2023 10:49 AM Signed PRIOR AUTHORIZATION Medication for Prior Authorization: Adderall 30 mg (Brand Name) Insurance Company: [employer] Patient insurance ID number: [id number] SHARIFA Montanez Janice, LPN 12/03/2023 11:36 AM [...] an override. This was previously approved in [place] and good until 04/26/24. Allergies As of Date: 12/03/2023 Noted Allergy Reaction SEASONAL ALLERGIES 07/20/2015 14 - Other: See Comments Date Reviewed: 10/03/2023 Reviewed by: Caron Jama LPN - Fully Assessed Reason for Visit: Insurance Authorization [[id number]] Prescriptions as of 12/03/2023 - ADDERALL 30 [...] 01/08/2023 Encounter Status:Closed by LEYLA HUSSEIN on 12/03/23 Normal [facility] US ABDOMEN LIMITEDon 11-06- 024 US ABDOMEN LIMITED ORIGINAL EXAMINATION: LIMITED [...] Date: 11/07/2023 10:46:03 AM Ordering Provider: DIEGO FOX Normal [facility] ([place] .Auto Diffon 11-05-2023 Basophil, Absolute 0.0 10 3/mcL Normal 0.0-0.2 [facility] ([place] Comment on above: Performed By: #### A DIFF, GFR, MDW, LIP, CMP, ANEU, CBC #### [address] [address] Basophils/100 WBC (Bld) 0.3 % Normal 0.0-2.5 [facility] [place] Comment on above: Performed By: #### A DIFF, GFR, MDW, LIP, CMP, ANEU, CBC #### [address] [address] Eosinophil, Absolute 0.0 10 3/mcL Normal 0.0-0.4 [facility] ([place] Comment on above: Performed By: #### A DIFF, GFR, MDW, LIP, CMP, ANEU, CBC #### [address] [address] Eosinophils/100 WBC (Bld) 0.3 % Normal 0.0-7.0 [facility] ([place] Comment on above: Performed By: #### A DIFF, GFR, MDW, LIP, CMP, ANEU, CBC #### [address] [address] Lymphocyte, Absolute 0.7 10 3/mcL Low 0.8-3.9 [facility] ([place] Comment on above: Performed By: #### A DIFF, GFR, MDW, LIP, CMP, ANEU, CBC #### [address] [address] Lymphocytes/100 WBC (Bld) 5.9 % Low 10.0-50.0 [facility] ([place] Comment on above: Performed By: #### A DIFF, GFR, MDW, LIP, CMP, ANEU, CBC #### [address] [address] Monocyte, Absolute 0.6 10 3/mcL Normal 0.2-1.0 [facility] ([place] Comment on above: Performed By: #### A DIFF, GFR, MDW, LIP, CMP, ANEU, CBC #### [address] [address] Monocytes/100 WBC (Bld) 5.1 % Normal 1.7-13.0 [facility] [place] Comment on above: Performed By: #### A DIFF, GFR, MDW, LIP, CMP, ANEU, CBC #### [address] [address] Neutrophils/100 WBC (Bld) 88.4 % High 37.0-80.0 [facility] ([place] Comment on above: Performed By: #### A DIFF, GFR, MDW, LIP, CMP, ANEU, CBC #### [address] [address] .GFRon 11-05-2023 GFR 123 ml/min/1.73sqm Normal [facility] ([place] Comment on above: Result Comment: GFR Population [...] GFR, MDW, LIP, CMP, ANEU, CBC #### [address] [address] GFR Non- 101 ml/min/1.73sqm Normal [facility] ([place] Comment on above: Result Comment: GFR Population [...] GFR, MDW, LIP, CMP, ANEU, CBC #### [address] [address] .MDWon 11-05-2023 Monocyte Distribution Width 18.53 Normal 0.00-20. 00 [facility] ([place] Comment on above: Result Comment: For ED adult patients suspected of sepsis, MDW<=20.0 does not rule out sepsis or risk of sepsis Performed By: #### A DIFF, GFR, MDW, LIP, CMP, ANEU, CBC #### [address] [address] .NEUABSon 11-05-2023 Neutrophil, Absolute 10.6 10 3/mcL High 2.9-6.2 [facility] [place] Comment on above: Performed By: #### A DIFF, GFR, MDW, LIP, CMP, ANEU, CBC #### [address] [address] CBCon 11-05-2023 Erythrocyte distribution width (RBC) [Ratio] 17.0 % High 11.5-14.5 [facility] ([place] Comment on above: Performed By: #### A DIFF, GFR, MDW, LIP, CMP, ANEU, CBC #### [address] [address] Hematocrit (Bld) [Volume fraction] 36.9 % Low 37.0-47.0 [facility] ([place] Comment on above: Performed By: #### A DIFF, GFR, MDW, LIP, CMP, ANEU, CBC #### [place] [id number] Hgb 12.2 G/dL Normal 12.0-16.0 [facility] ([place] Comment on above: Performed By: #### A DIFF, GFR, MDW, LIP, CMP, ANEU, CBC #### [address] [address] MCH (RBC) [Entitic mass] 25.4 pg Low 27.0-31.2 [facility] ([place] Comment on above: Performed By: #### A DIFF, GFR, MDW, LIP, CMP, ANEU, CBC #### [address] [address] MCHC 33.1 G/dL Normal 33.0-37.0 [facility] ([place] Comment on above: Performed By: #### A DIFF, GFR, MDW, LIP, CMP, ANEU, CBC #### [address] [address] MCV (RBC) [Entitic vol] 76.8 fL Low 80.0-94.0 [facility] [place] Comment on above: Performed By: #### A DIFF, GFR, MDW, LIP, CMP, ANEU, CBC #### [address] [address] Platelet 386 10 3/mcL Normal 130-400 [facility] ([place] Comment on above: Performed By: #### A DIFF, GFR, MDW, LIP, CMP, ANEU, CBC #### [address] [address] Platelet mean volume (Bld) [Entitic vol] 7.7 fL Normal 7.4-10.4 [facility] ([place] Comment on above: Performed By: #### A DIFF, GFR, MDW, LIP, CMP, ANEU, CBC #### [address] [address] RBC 4.81 10 6/mcL Normal 4.20-5.40 [facility] ([place] Comment on above: Performed By: #### A DIFF, GFR, MDW, LIP, CMP, ANEU, CBC #### [address] [address] WBC 12.0 10 3/mcL High 4.6-10.8 [facility] ([place] Comment on above: Performed By: #### A DIFF, GFR, MDW, LIP, CMP, ANEU, CBC #### [address] [address] CMPon 11-05-2023 Albumin Level 4.0 G/dL Normal 3.5-5.0 [facility] ([place] Comment on above: Performed By: #### A DIFF, GFR, MDW, LIP, CMP, ANEU, CBC #### [address] [address] Albumin/Globulin [Mass ratio] 1.3 {ratio} Normal 1.1-2.5 [facility] ([place] Comment on above: Performed By: #### A DIFF, GFR, MDW, LIP, CMP, ANEU, CBC #### [address] [address] ALP [Catalytic activity/Vol] 107 U/L Normal 40-135 [facility] ([place] Comment on above: Performed By: #### A DIFF, GFR, MDW, LIP, CMP, ANEU, CBC #### [address] [address] ALT [Catalytic activity/Vol] 81 U/L High 14-59 [facility] ([place] Comment on above: Performed By: #### A DIFF, GFR, MDW, LIP, CMP, ANEU, CBC #### [address] [address] AST [Catalytic activity/Vol] 115 U/L High 10-40 [facility] ([place] Comment on above: Performed By: #### A DIFF, GFR, MDW, LIP, CMP, ANEU, CBC #### [address] [address] Bili Total 1.0 mg/dL Normal 0.2-1.0 [facility] ([place] Comment on above: Result Comment: Use of this assay is not recommended for patients undergoing treatment with eltrombopag due to the potential for falsely elevated results. Performed By: #### A DIFF, GFR, MDW, LIP, CMP, ANEU, CBC #### [address] [address] BUN/Creatinine Ratio 11 ratio Normal 7-27 [facility] ([place] Comment on above: Performed By: #### A DIFF, GFR, MDW, LIP, CMP, ANEU, CBC #### [address] [address] Calcium [Mass/Vol] 9.6 mg/dL Normal 8.4-10.2 [facility] Comment on above: Performed By: #### A DIFF, GFR, MDW, LIP, CMP, ANEU, CBC #### [address] [address] Chloride [Moles/Vol] 101 mmol/L Normal 98-107 [facility] ([place] Comment on above: Performed By: #### A DIFF, GFR, MDW, LIP, CMP, ANEU, CBC #### [address] [address] CO2 [Moles/Vol] 29 mmol/L Normal 22-29 [facility] ([place] Comment on above: Performed By: #### A DIFF, GFR, MDW, LIP, CMP, ANEU, CBC #### [address] [address] Creatinine [Mass/Vol] 0.66 mg/dL Normal 0.55-1.02 [facility] ([place]) Comment on above: Performed By: #### A DIFF, GFR, MDW, LIP, CMP, ANEU, CBC #### [address] [address] Electrolyte Balance 7.0 mEq/L Normal 4.0-15.0 [facility] ([place] Comment on above: Performed By: #### A DIFF, GFR, MDW, LIP, CMP, ANEU, CBC #### [address] [address] Globulin 3.0 G/dL Normal [facility] ([place] Comment on above: Performed By: #### A DIFF, GFR, MDW, LIP, CMP, ANEU, CBC #### [address] [address] Glucose [Mass/Vol] 103 mg/dL Normal 70-105 [facility] [place] Comment on above: Performed By: #### A DIFF, GFR, MDW, LIP, CMP, ANEU, CBC #### [address] [address] Potassium [Moles/Vol] 4.0 mmol/L Normal 3.5-5.1 [facility] ([place]) Comment on above: Performed By: #### A DIFF, GFR, MDW, LIP, CMP, ANEU, CBC #### [address] [address] Sodium [Moles/Vol] 137 mmol/L Normal 136-145 [facility] [place] Comment on above: Performed By: #### A DIFF, GFR, MDW, LIP, CMP, ANEU, CBC #### [address] [address] Total Protein 7.0 G/dL Normal 6.4-8.2 [facility] ([place] Comment on above: Performed By: #### A DIFF, GFR, MDW, LIP, CMP, ANEU, CBC #### [place] [address] [place], [place] [address] Urea nitrogen [Mass/Vol] 7 mg/dL Normal 7-18 [facility] ([place]) Comment on above: Performed By: #### A DIFF, GFR, MDW, LIP, CMP, ANEU, CBC #### [place] [address] [place], [place] [address] LABORATORYOrdered By: SYSTEM SYSTEM on 11-05-2023 Albumin [...] 11-05-2023 Lipase Level 43 U/L Normal 16-77 [facility] ([place] Comment on above: Performed By: #### A DIFF, GFR, MDW, LIP, CMP, ANEU, CBC #### [address] [address] PREGUon 11-05-2023 HCG ( test) Ql (U) Negative Normal [facility] ([place]) Comment on above: Performed By: #### U A, PREGU #### [address] [address] test (u) int Not detected Invalid Interpretation Code [facility] ([place]) Comment on above: Performed By: #### U A, PREGU #### [address] [address] UAon 11-05-2023 Color (U) Yellow Normal [facility] ([place]) Comment on above: Performed By: #### U A, PREGU #### [address] [address] Glucose (U) [Mass/Vol] Negative Normal Negative [facility] ([place]) Comment on above: Performed By: #### U A, PREGU #### [address] [address] Ketones Ql (U) Negative Normal Negative [facility] ([place]) Comment on above: Performed By: #### U A, PREGU #### [address] [address] UA Appear Clear Normal Clear [facility] ([place] Comment on above: Performed By: #### U A, PREGU #### [address] [address] UA Blood Negative Normal Negative [facility] ([place] Comment on above: Performed By: #### U A, PREGU #### [address] [address] UA Leuk Est Negative Normal Negative [facility] ([place] Comment on above: Performed By: #### U A, PREGU #### [address] [address] UA Nitrite Negative Normal Negative [facility] ([place] Comment on above: Performed By: #### U A, PREGU #### [address] [address] UA pH 6.5 Normal 5.0 - 8.0 [facility] ([place] Comment on above: Performed By: #### U A, PREGU #### [address] [address] UA Protein Negative Normal Negative [facility] ([place] Comment on above: Performed By: #### U A, PREGU #### [address] [address] UA Spec Grav 1.025 Normal 1.015-1.02 5 [facility] ([place] Comment on above: Performed By: #### U A, PREGU #### [address] [address] UA Specimen Type Clean Catch Normal [facility] ([place] Comment on above: Performed By: #### U A, PREGU #### [address] [address] UA Urobilinogen 0.2 E.U./dL Normal 0.2-1.0 [facility] ([place] Comment on above: Performed By: #### U A, PREGU #### [address] [address] Urobilinogen (U) [Mass/Vol] Negative Normal Negative [facility] ([place] Comment on above: Performed By: #### U A, PREGU #### [address] [address] STREP A MOLECULAR (POC)on Procedural Control Valid [facility] Strep A (POCT) Negative Negative [facility] XR Chest PA and Lateralon IMPRESSION: No acute radiographic abnormality. Shank Sorter: PSCB Transcribe Date/Time: May 29 2023 4:58P Dictated by : LIUDMILA ZARAGOZA MD This examination was interpreted and the report reviewed and electronically signed by: LIUDIMLA ZARAGOZA MD on May 29 2023 5:00PM [...] soft tissues: Unremarkable. DIVISION OF RADIOLOGY Provider, [facility] - 05/29/2023 * * *Final Report* * [...] Unremarkable. IMPRESSION IMPRESSION: No acute radiographic abnormality. Shank Sorter: ROSALIE Transcribe Date/Time: May 29 2023 4:58P Dictated by : LIUDMILA ZARAGOZA MD This examination was interpreted and the report reviewed and electronically signed by: LIUDMILA ZARAGOZA MD on May 29 2023 5:00PM EST [facility] Radiology Study observation (narrative) [facility] XR Chest PA and LateralOrder ed By: Ccf Provider on 05-29-2023 [facility] CBC panel Auto (Bld)on 04-22 Erythrocyte distribution width (RBC) [Ratio] 14.8 % 11.5 - 15.0 % [facility] Hematocrit (Bld) [Volume fraction] 38.7 % 36.0 - 46.0 % [facility] Hemoglobin (Bld) [Mass/Vol] 11.8 g/dL 11.5 - 15.5 g/dL [facility] MCH (RBC) [Entitic mass] 23.2 pg Low 26. 0 - 34.0 pg [facility] MCHC (RBC) [Mass/Vol] 30.5 g/dL 30.5 - 36.0 g/dL [facility] MCV (RBC) [Entitic vol] 76.2 fL Low 80.0 - 100.0 fL [facility] Nucleated RBC (Bld) [#/Vol] <0.01 k/ uL [facility] Platelet mean volume (Bld) [Entitic vol] 9.9 fL 9.0 - 12.7 fL [facility] Platelets (Bld) [#/Vol] 447 10*3/uL High 150 - 400 k/uL [facility] RBC (Bld) [#/Vol] 5.08 10*6/uL 3.90 - 5.20 m/uL [facility] WBC (Bld) [#/Vol] 4.94 10*3/uL 3.70 - 11.00 k/uL [facility] Comprehensive metabolic 2000 panelon 04-22-2023 Albumin [Mass/Vol] 4.6 g/dL 3.9 - 4.9 g/dL [facility] ALP [Catalytic activity/Vol] 92 U/L 34 - 123 U/L [facility] ALT [Catalytic activity/Vol] 14 U/L 7 - 38 U/L [facility] Anion gap [Moles/Vol] 10 mmol/L 9 - 18 mmol/L [facility] AST [Catalytic activity/Vol] 19 U/L 13 - 35 U/L [facility] Bilirubin [Mass/Vol] 0.4 mg/dL 0.2 - 1 .3 mg/dL [facility] Calcium [Mass/Vol] 9.3 mg/dL 8.5 - 10. 2 mg/dL [facility] Chloride [Moles/Vol] 102 mmol/L 97 - 10 5 mmol/L [facility] CO2 [Moles/Vol] 26 mmol/L 22 - 30 mmol/L [facility] Creatinine [Mass/Vol] 0.60 mg/dL 0.58 - 0.96 mg/dL [facility] Estimated Glomerular Filtration Rate 120 mL/min/1.73m >=60 mL/min/1.7 3m [facility] Glucose [Mass/Vol] 87 mg/dL 74 - 99 mg/dL [facility] Potassium [Moles/Vol] 4.2 mmol/L 3.7 - 5.1 mmol/L [facility] Protein [Mass/Vol] 7.2 g/dL 6.3 - 8.0 g/dL [facility] Sodium [Moles/Vol] 138 mmol/L 136 - 144 mmol/L [facility] Urea nitrogen [Mass/Vol] 7 mg/dL 7 - 21 mg/dL [facility] FERRITIN BLDon 04-22-2023 Ferritin [Mass/Vol] 11.4 ng/mL Low 14.7 - 205.1 ng/mL [facility] Iron and Iron binding capaci ty panelon 04-22-2023 Iron [Mass/Vol] 53 ug/dL 41 - 186 ug/dL [facility] Iron binding capacity [Mass/Vol] 498 ug/dL High 232 - 386 ug/dL [facility] Iron/TIBC [Molar ratio] 10.6 % Low 15.0 - 57.0 % [facility] Lipid 1996 panelon Cholesterol [Mass/Vol] 241 mg/dL High <200 mg/dL [facility] Cholesterol in HDL [Mass/Vol] 68 mg/dL >39 mg/dL [facility] Cholesterol in LDL [Mass/Vol] 153 mg/dL High <100 mg/dL [facility] Cholesterol in LDL/Cholesterol in HDL [Mass ratio] 2.25 {ratio} <2.54 [facility] Cholesterol in VLDL [Mass/Vol] 20 mg/dL <30 mg/dL [facility] Cholesterol non HDL [Mass/Vol] 173 mg/dL High <130 mg/dL [facility] Cholesterol.total/Cholester ol in HDL [Mass ratio] 3.54 {ratio} <5.10 [facility] Fasting Time 12 hrs [facility] Triglyceride [Mass/Vol] 99 mg/dL <150 mg/dL [facility] CBC panel Auto (Bld)on 10-22 Erythrocyte distribution width (RBC) [Ratio] 16.2 % High 11.5 - 15.0 % [facility] Hematocrit (Bld) [Volume fraction] 36.0 % 36.0 - 46.0 % [facility] Hemoglobin (Bld) [Mass/Vol] 11.2 g/dL Low 11.5 - 15.5 g/dL [facility] MCH (RBC) [Entitic mass] 23.5 pg Low 26. 0 - 34.0 pg [facility] MCHC (RBC) [Mass/Vol] 31.1 g/dL 30.5 - 36.0 g/dL [facility] MCV (RBC) [Entitic vol] 75.5 fL Low 80.0 - 100.0 fL [facility] Nucleated RBC (Bld) [#/Vol] <0.01 k/ uL [facility] Platelet mean volume (Bld) [Entitic vol] 9.5 fL 9.0 - 12.7 fL [facility] Platelets (Bld) [#/Vol] 384 10*3/uL 150 - 400 k/uL [facility] RBC (Bld) [#/Vol] 4.77 10*6/uL 3.90 - 5.20 m/uL [facility] WBC (Bld) [#/Vol] 7.40 10*3/uL 3.70 - 11.00 k/uL [facility] DHEA-S [facility] 10-22-2022 DHEA-S [Mass/Vol] 218.5 ug/dL 60.9 - 337.0 ug/dL [facility] TESTOSTERONE TOTALon 023 Testosterone [Mass/Vol] 28 ng/dL <40 ng/dL [facility] TSH [facility] 10-22-2022 TSH Qn 1.730 m[IU]/L 0.270 - 4.200 mIU/L [facility] MAMMO DIAGNOSTIC WITH MATA B ILATERALon 02-15-2022 MAMMO DIAGNOSTIC WITH MATA BILATERAL EXAM: MAMMO DIAGNOSTIC WITH MATA BILATERAL, US BREAST LIMITED UNILATERAL RIGHT, 02/15/2022 09:49 AM (accession [id number]), 02/15/2022 09:56 AM (accession [id number]) CLINICAL INDICATIONS: Palpable abnormality 10:00 right breast [...] Clinical correlation/managemen t. Recommendation Laterality: Right Normal [facility] MG Breast - bilateral Diagno sticon 02-15-2022 Sha Rodríguez MD - 02/15/2022 EXAM: MAMMO DIAGNOSTIC WITH MATA BILATERAL, US BREAST LIMITED UNILATERAL RIGHT, 02/15/2022 09:49 AM (accession [id number]), 02/15/2022 09:56 AM (accession [id number]) CLINICAL INDICATIONS: Palpable abnormality 10:00 right breast [...] Recommendation: Clinical correlation/managemen t. Recommendation Laterality: Right [facility] Radiology Study observation (narrative) [facility] No Panel Informationon 02-15 IMPRESSION: Negative bilateral mammogram and negative targeted right breast ultrasound. Clinical follow-up and management of the patient's symptoms recommended BI-RADS: 1: Negative Recommendation: Clinical correlation/managemen t. Recommendation Laterality: Right OLOGY EXAM: MAMMO DIAGNOSTIC WITH MATA BILATERAL, US BREAST LIMITED UNILATERAL RIGHT, 02/15/2022 09:49 AM (accession [id number]), 02/15/2022 09:56 AM (accession [id number]) CLINICAL INDICATIONS: Palpable abnormality 10:00 right breast [...] Panel InformationOrdered By: Sha Rodríguez on 02-15-2022 [facility] Work Phone: US BREAST LIMITED UNILATERAL RIGHTon 02-15-2022 US BREAST LIMITED UNILATERAL RIGHT EXAM: MAMMO DIAGNOSTIC WITH MATA BILATERAL, US BREAST LIMITED UNILATERAL RIGHT, 02/15/2022 09:49 AM (accession [id number]), 02/15/2022 09:56 AM (accession [id number]) CLINICAL INDICATIONS: Palpable abnormality 10:00 right breast [...] Clinical correlation/managemen t. Recommendation Laterality: Right Normal [facility] US Breast - right limitedon 02-15-2022 Radiology Study observation (narrative) [facility] Basophil percentageon 2021 WBC (Bld) [#/Vol] 4.9 10*3/uL 4.4-11.0 [facility] Work Phone: Blood erythrocytes count (nu mber/volume)on 11-09-2021 RBC (Bld) [#/Vol] 4.58 10*6/uL 4.2-5.4 [facility] Work Phone: Blood hemoglobin measurement (mass/volume)on 11-09-2021 Hemoglobin (Bld) [Mass/Vol] 11.9 g/dL 12.0-15. 0 [facility] Work Phone: Blood platelet mean volumeon 11-09-2021 Platelet mean volume (Bld) [Entitic vol] 9.5 fL 6.2-12.0 [facility] Work Phone: Determination of erythrocyte mean corpuscular volume (MCV)on 11-09-2021 MCV (RBC) [Entitic vol] 81.4 fL 81-99 [facility] Work Phone: Hematocrit Auto (Bld) [Volum e fraction]on 11-09-2021 Hematocrit (Bld) [Volume fraction] 37.3 % 37-47 [facility] Work Phone: Laboratory - Chemistry and C hemistry - challengeon 11-09-2021 HCG ( test) Ql (U) Negative [facility] Work Phone: Comment on above: Very dilute urine sp ecimens, as indicated by a low specificgravity, may not contain quality assurance representative levels of hCG. If is still suspected, a first morning urinespecimen should be collected 48 hours later and tested. Laboratory - Hematology and Cell countson 11-09-2021 Erythrocyte distribution width (RBC) [Entitic vol] 42.7 fL 35.1-43.9 [facility] Work Phone: Erythrocyte distribution width (RBC) [Ratio] 14.6 % 11.6-14.6 [facility] Work Phone: MCH (RBC) [Entitic mass] 26.0 pg 27.0-32.0 [facility] Work Phone: MCHC Auto (RBC) [Mass/Vol]on 11-09-2021 MCHC (RBC) [Mass/Vol] 31.9 g/dL 32-36 [facility] Work Phone: Platelets bldon 11-09-2021 Platelets (Bld) [#/Vol] 351 10*3/uL 150-450 [facility] Work Phone: HCG QUAL UR B/Oon 10-10-2021 status Negative neg - [facility] Yes [facility] CBC panel Auto (Bld)on 09-19 Erythrocyte distribution width (RBC) [Ratio] 14.7 % 11.5 - 15.0 % [facility] Hematocrit (Bld) [Volume fraction] 38.5 % 36.0 - 46.0 % [facility] Hemoglobin (Bld) [Mass/Vol] 12.8 g/dL 11.5 - 15.5 g/dL [facility] MCH (RBC) [Entitic mass] 26.4 pg 26. 0 - 34.0 pg [facility] MCHC (RBC) [Mass/Vol] 33.2 g/dL 30.5 - 36.0 g/dL [facility] MCV (RBC) [Entitic vol] 79.5 fL Low 80.0 - 100.0 fL [facility] Nucleated RBC (Bld) [#/Vol] 10*3/uL <0.01 k/ uL [facility] Platelet mean volume (Bld) [Entitic vol] 9.5 fL 9.0 - 12.7 fL [facility] Platelets (Bld) [#/Vol] 354 10*3/uL 150 - 400 k/uL [facility] RBC (Bld) [#/Vol] 4.84 10*6/uL 3.90 - 5.20 m/uL [facility] WBC (Bld) [#/Vol] 5.47 10*3/uL 3.70 - 11.00 k/uL [facility] Absolute lymphocyte counton 07-27-2021 Lymphocytes Auto (Unsp spec) [#/Vol] 0.61 10*3/uL 0.83-4.51 [facility] Work Phone: Basophil percentageon 2021 Basophil percentage 0-5 SEEN /hpf 0-5 [facility] Work Phone: Comment on above: Previous reported re sult: 0 SEEN /hpfEdited by: ALVARO on 07/27/21:1410 AMENDED REPORT 07/27/21 1410 WBC previously reported as: 0 SEEN /hpf Basophils/100 WBC (Bld) 0.2 % 0-1 [facility] Work Phone: Bilirubin [Mass/Vol] 0.50 mg/dL 0.20-1.00 [facility] Work Phone: Comment on above: For patients on eltr ombopag therapy, use of Dimension [place] TBIL is not recommended. Chloride [Moles/Vol] 105 mmol/L 98-107 [facility] Work Phone: Eosinophils/100 WBC (Bld) 0.3 % 0-5 [facility] Work Phone: Glucose [Mass/Vol] 92 mg/dL 74-106 [facility] Work Phone: Neutrophils (Bld) [#/Vol] 5.2 10*3/uL 2.0-7.7 [facility] Work Phone: Neutrophils/100 WBC (Bld) 81.0 % 47-70 [facility] Work Phone: Potassium [Moles/Vol] 3.6 mmol/L 3.5-5.1 [facility] Work Phone: Protein [Mass/Vol] 7.8 g/dL 6.4-8.2 [facility] Work Phone: Sodium [Moles/Vol] 138 mmol/L 136-145 [facility] Work Phone: WBC (Bld) [#/Vol] 6.4 10*3/uL 4.4-11.0 [facility] Work Phone: Bilirubin Test strip Ql (U)o n 07-27-2021 Bilirubin Ql (U) Negative Negative [facility] Work Phone: Blood erythrocytes count (nu mber/volume)on 07-27-2021 RBC (Bld) [#/Vol] 5.20 10*6/uL 4.2-5.4 [facility] Work Phone: Blood hemoglobin measurement (mass/volume)on 07-27-2021 Hemoglobin (Bld) [Mass/Vol] 13.8 g/dL 12.0-15. 0 [facility] Work Phone: Blood lymphocytes/100 leukoc yteson 07-27-2021 Lymphocytes/100 WBC (Bld) 9.5 % 19-41 [facility] Work Phone: Blood monocytes/100 leukocyt eson 07-27-2021 Monocytes/100 WBC (Bld) 8.7 % 0-10 [facility] Work Phone: Blood platelet mean volumeon 07-27-2021 Platelet mean volume (Bld) [Entitic vol] 9.6 fL 6.2-12.0 [facility] Work Phone: Determination of erythrocyte mean corpuscular volume (MCV)on 07-27-2021 MCV (RBC) [Entitic vol] 79.6 fL 81-99 [facility] Work Phone: Hematocrit Auto (Bld) [Volum e fraction]on 07-27-2021 Hematocrit (Bld) [Volume fraction] 41.4 % 37-47 [facility] Work Phone: Ketones Test strip Ql (U)on 07-27-2021 Ketones Ql (U) 5 mg/dl Negative [facility] Work Phone: Laboratory - Chemistry and C hemistry - challengeon 07-27-2021 HCG ( test) Ql (U) Negative [facility] Work Phone: Comment on above: Very dilute urine sp ecimens, as indicated by a low specificgravity, may not contain quality assurance representative levels of hCG. If is still suspected, a first morning urinespecimen should be collected 48 hours later and tested. ALP [Catalytic activity/Vol] 85 U/L 45-117 [facility] Work Phone: ALT [Catalytic activity/Vol] 20 U/L 13-56 [facility] Work Phone: CO2 [Moles/Vol] 25.0 mmol/L 21.0-32.0 [facility] Work Phone: Globulin (S) [Mass/Vol] 3.6 g/dL 2.2-4.2 [facility] Work Phone: Lipase [Catalytic activity/Vol] 139 U/L 73-393 [facility] Work Phone: Urea nitrogen/Creatinine [Mass ratio] 9.9 mg/mg 10-20 [facility] Work Phone: Laboratory - Hematology and Cell countson 07-27-2021 Erythrocyte distribution width (RBC) [Entitic vol] 40.9 fL 35.1-43.9 [facility] Work Phone: Erythrocyte distribution width (RBC) [Ratio] 14.1 % 11.6-14.6 [facility] Work Phone: Immature granulocytes/100 WBC (Bld) 0.300 % 0.0-0.9 [facility] Work Phone: Comment on above: IG% - Immature Granu locytes (promyelocytes, myelocytes and metamyelocytes) > 1% indicates that a LEFT SHIFT is Present. MCH (RBC) [Entitic mass] 26.5 pg 27.0-32.0 [facility] Work Phone: Nucleated RBC/100 WBC (Bld) [Ratio] 0 % 0-5 [facility] Work Phone: MCHC Auto (RBC) [Mass/Vol]on 07-27-2021 MCHC (RBC) [Mass/Vol] 33.3 g/dL 32-36 [facility] Work Phone: Mucus LM Ql (Urine sed)on Mucus Ql (Urine sed) 0 SEEN /hpf [facility] Work Phone: Nitrite Test strip Ql (U)on 07-27-2021 Nitrite Ql (U) Negative Negative [facility] Work Phone: No Panel Informationon 07-27 Estimated Creatinine Clearance Calc 103.75 ml/min [facility] Work Phone: Estimated GFR (MDRD) Amer 145 mL/min >60 [facility] Work Phone: Comment on above: GFR Calc Estimated GFR (MDRD) Non-Af Amer 120 mL/min >60 [facility] Work Phone: Comment on above: Non- GFR Calc Platelets bldon 07-27-2021 Platelets (Bld) [#/Vol] 343 10*3/uL 150-450 [facility] Work Phone: Protein Test strip Ql (U)on 07-27-2021 Protein Ql (U) 30 mg/dl Negative [facility] Work Phone: Serum or plasma albumin brian urement (mass/volume)on 07-27-2021 Albumin [Mass/Vol] 4.2 g/dL 3.2-5.0 [facility] Work Phone: Serum or plasma albumin/glob ulin mass ratioon 07-27-2021 Albumin/Globulin [Mass ratio] 1.2 {ratio} 0.9-2.4 [facility] Work Phone: Serum or plasma calcium brian urement (mass/volume)on 07-27-2021 Calcium [Mass/Vol] 9.1 mg/dL 8.5-10.1 [facility] Work Phone: Serum or plasma creatinine m easurement (mass/volume)on 07-27-2021 Creatinine [Mass/Vol] 0.61 mg/dL 0.55-1.02 [facility] Work Phone: Comment on above: The validity of the calculated GFR & GFRAA in patients over 70 years has not been determined. Clinical correlation is essential. Serum or plasma urea nitroge n measurement (mass/volume)on 07-27-2021 Urea nitrogen [Mass/Vol] 6 mg/dL 7-18 [facility] Work Phone: Squamous epithelial cells de tection in urine sediment by light microscopyon 07-27-2021 Epithelial cells.squamous LM Ql (Urine sed) 0-5 SEEN /hpf 5-10 [facility] Work Phone: Comment on above: Previous reported re sult: 0 SEEN /hpfEdited by: ALVARO on 07/27/21:1412 AMENDED REPORT 07/27/21 1412 SQUAM EPI previously reported as: 0 SEEN /hpf Thin prep Papanicolaou smear with manual screeningon 07-27-2021 Thin prep Papanicolaou smear with manual screening 12 U/L 15-37 [facility] Work Phone: Thin prep Papanicolaou smear with manual screening 8 5-15 [facility] Work Phone: Urine blood detectionon 07-09 0-2021 RBC Ql (U) Negative Negative [facility] Work Phone: RBC Ql (U) 0 SEEN /hpf 0-5 [facility] Work Phone: Urine clarityon 07-27-2021 Clarity (U) Sl. Cloudy Clear [facility] Work Phone: Urine color determinationon 07-27-2021 Color (U) Yellow Yellow [facility] Work Phone: Urine glucose detectionon Glucose Ql (U) Normal mg/dl Normal [facility] Work Phone: Urine leukocyte esterase det ection by dipstickon 07-27-2021 Leukocyte esterase Test strip Ql (U) 25 /ul Negative [facility] Work Phone: Urine pHon 07-27-2021 pH (U) 6.0 [pH] 5.0 - 8.0 [facility] Work Phone: Urine sediment bacteria coun t by microscopy (number/high power field)on 07-27-2021 Bacteria LM.HPF (Urine sed) [#/Area] RARE /hpf None Seen [facility] Work Phone: Comment on above: Previous reported re sult: 0 SEEN /hpfEdited by: ALVARO on 07/27/21:1413 AMENDED REPORT 07/27/21 1413 BACTERIA previously reported as: 0 SEEN /hpf Urine specific gravity measu rementon 07-27-2021 Specific gravity (U) [Rel density] 1.020 1.002-1.03 0 [facility] Work Phone: Urobilinogen Auto test strip Ql (U)on 07-27-2021 Urobilinogen Ql (U) Normal mg/dl Normal [facility] Work Phone: Vital Signs Date Time Vital Sign Value Performing Clinician Facility 07-21-2024 16:07-0400 Body height 160 cm Jaylan Syed MD Work Phone: [facility] 07-21-2024 16:07-0400 Body mass index (BMI) [Ratio] 38.09 kg/m2 Jaylan Syed MD Work Phone: [facility] 07-21-2024 16:07-0400 Body weight 97.52 kg Jaylan Syed MD Work Phone: [facility] 07-21-2024 16:07-0400 Diastolic blood pressure 88 mm[Hg] Jaylan Syed MD Work Phone: [facility] 07-21-2024 16:07-0400 Systolic blood pressure 134 mm[Hg] Jaylan Syed MD Work Phone: [facility] 07-05-2024 14:46-0400 Body temperature 97.2 [degF] Dr. Mena Vernon MD Work Phone: 2(206)419-504285 [place] [address] 07-05-2024 14:46-0400 Diastolic blood pressure 102 mm[Hg] Dr. Mena Vernon MD Work Phone: 4(285)400-604585 [place] [address] 07-05-2024 14:46-0400 Heart rate 78 /min Dr. Mena Vernon MD Work Phone: 3(813)350-201485 [place] [address] 07-05-2024 14:46-0400 Respiratory rate 16 /min Dr. Mena Vernon MD Work Phone: 7(683)659-765085 [place] [address] 07-05-2024 14:46-0400 SaO2% (BldA) [Mass fraction] 100 % Dr. Mena Vernon MD Work Phone: 0(654)825-009785 [place] [address] 07-05-2024 14:46-0400 Systolic blood pressure 138 mm[Hg] Dr. Mena Vernon MD Work Phone: 2(363)661-105685 [place] [address] 07-05-2024 11:05-0400 Body height 157.[address] Mena Vernon MD Work Phone: 7(679)740-860085 [place] [address] 07-05-2024 11:05-0400 Body mass index (BMI) [Ratio] 40 kg/m2 Dr. Mena Vernon MD Work Phone: 9(474)070-717485 [place] [address] 07-05-2024 11:05-0400 Body weight 99.[address] Mena Vernon MD Work Phone: 5(188)605-363585 [place] [address] 07-04-2024 09:46-0400 Body temperature 98.3 [degF] Dr. Mena Vernon MD Work Phone: 9(658)[phone] [place] [address] 07-04-2024 09:46-0400 Diastolic blood pressure 68 mm[Hg] Dr. Mena Vernon MD Work Phone: 1(860)273-940185 [place] [address] 07-04-2024 09:46-0400 Heart rate 72 /min Dr. Mena Vernon MD Work Phone: 8(655)084-884785 [place] [address] 07-04-2024 09:46-0400 Respiratory rate 18 /min Dr. Mena Vernon MD Work Phone: [facility] 07-04-2024 09:46-0400 SaO2% (BldA) [Mass fraction] 100 % Dr. Mena Vernon MD Work Phone: [facility] 07-04-2024 09:46-0400 Systolic blood pressure 116 mm[Hg] Dr. Mena Vernon MD Work Phone: [facility] 07-04-2024 06:20-0400 Body height 157.[address] Mena Vernon MD Work Phone: [facility] 07-04-2024 06:20-0400 Body mass index (BMI) [Ratio] 40 kg/m2 Dr. Mena Vernon MD Work Phone: [facility] 07-04-2024 06:20-0400 Body weight 99.[address] Mena Vernon MD Work Phone: [facility] 04-19-2024 08:46-0500 Body mass index (BMI) [Ratio] 38.27 kg/m2 Mena Vernon MD Work Phone: [facility] 04-19-2024 08:46-0500 Body weight 98 kg Mena Vernon MD Work Phone: [facility] 04-19-2024 08:46-0500 Diastolic blood pressure 84 mm[Hg] Mena Vernon MD Work Phone: [facility] 04-19-2024 08:46-0500 Heart rate 97 /min Mena Vernon MD Work Phone: [facility] 04-19-2024 08:46-0500 Respiratory rate 16 /min Mena Vernon MD Work Phone: [facility] 04-19-2024 08:46-0500 Systolic blood pressure 128 mm[Hg] Mena Vernon MD Work Phone: [facility] 04-14-2024 19:52-0500 Body mass index (BMI) [Ratio] 38.94 kg/m2 Aliza Randallk MECHANICAL OPERATOR.[employer] Work Phone: [facility] 04-14-2024 19:52-0500 Body temperature 97.39 [degF] Aliza Randallk MECHANICAL OPERATOR.[employer] Work Phone: [facility] 04-14-2024 19:52-0500 Body weight 99.7 kg Aliza Naima MECHANICAL OPERATOR.[employer] Work Phone: [facility] 04-14-2024 19:52-0500 Diastolic blood pressure 82 mm[Hg] Aliza Randallk MECHANICAL OPERATOR.[employer] Work Phone: [facility] 04-14-2024 19:52-0500 Heart rate 102 /min Aliza Randallk MECHANICAL OPERATOR.[employer] Work Phone: [facility] 04-14-2024 19:52-0500 Respiratory rate 16 /min Aliza Randallk MECHANICAL OPERATOR.[employer] MARK[employer] Work Phone: [facility] 04-14-2024 19:52-0500 SaO2% (BldA) [Mass fraction] 96 % Aliza Naima MECHANICAL OPERATOR.[employer] Work Phone: [facility] 04-14-2024 19:52-0500 Systolic blood pressure 136 mm[Hg] Aliza Randallk MECHANICAL OPERATOR.[employer] Work Phone: [facility] 11-05-2023 17:15-0400 Blood Pressure Location DIEGO FOX MD [facility] 11-05-2023 17:15-0400 Blood Pressure Method DIEGO FOX MD [facility] 11-05-2023 17:15-0400 Body height 157.5 cm DIEGO FOX MD [facility] 11-05-2023 17:15-0400 Body temperature 97.88 [degF] DIEGO FOX MD [facility] 11-05-2023 17:15-0400 Body weight 98 kg DIEGO FOX MD [facility] 11-05-2023 17:15-0400 Diastolic Blood Pressure Non-Invasive 90 mm[Hg] DIEGO FOX MD [facility] 11-05-2023 17:15-0400 Heart rate 95 /min DIEGO FOX MD [facility] 11-05-2023 17:15-0400 Respiratory rate 16 /min DIEGO FOX MD [facility] 11-05-2023 17:15-0400 Systolic Blood Pressure Non-Invasive 128 mm[Hg] DIEGO FOX MD [facility] 10-03-2023 16:56-0400 Body mass index (BMI) [Ratio] 38.62 kg/m2 Mena Vernon MD Work Phone: [facility] 10-03-2023 16:56-0400 Body temperature 98.1 [degF] Mena Vernon MD Work Phone: [facility] 10-03-2023 16:56-0400 Body weight 98.88 kg Mena Vernon MD Work Phone: [facility] 10-03-2023 16:56-0400 Diastolic blood pressure 78 mm[Hg] Mena Vernon MD Work Phone: [facility] 10-03-2023 16:56-0400 Heart rate 120 /min Mena Vernon MD Work Phone: [facility] 10-03-2023 16:56-0400 Respiratory rate 18 /min Mena Vernon MD Work Phone: [facility] 10-03-2023 16:56-0400 SaO2% (BldA) [Mass fraction] 100 % Mena Vernon MD Work Phone: [facility] 10-03-2023 16:56-0400 Systolic blood pressure 138 mm[Hg] Mena Vernon MD Work Phone: [facility] 08-31-2023 09:03-0400 Body mass index (BMI) [Ratio] 37.88 kg/m2 Madhu Moomaw MECHANICAL OPERATOR.[employer] MARKER Work Phone: [facility] 08-31-2023 09:03-0400 Body temperature 97.3 [degF] Madhu Moomaw MECHANICAL OPERATOR.[employer] Work Phone: [facility] 08-31-2023 09:03-0400 Body weight 97 kg Madhu Moomaw MECHANICAL OPERATOR.[employer] Work Phone: [facility] 08-31-2023 09:03-0400 Diastolic blood pressure 97 mm[Hg] Madhu Moomaw MECHANICAL OPERATOR.[employer] MARK[employer] Work Phone: [facility] Comment on above: no meds this am 08-31-2023 09:03-0400 Heart rate 87 /min Madhu Moomaw MECHANICAL OPERATOR.[employer] MARKER Work Phone: [facility] 08-31-2023 09:03-0400 Respiratory rate 18 /min Madhu Moomaw MECHANICAL OPERATOR.[employer] Work Phone: [facility] 08-31-2023 09:03-0400 SaO2% (BldA) [Mass fraction] 100 % Madhu Moomaw MECHANICAL OPERATOR.[employer] Work Phone: [facility] 08-31-2023 09:03-0400 Systolic blood pressure 155 mm[Hg] Madhu Moomaw MECHANICAL OPERATOR.[employer] Work Phone: [facility] Comment on above: no meds this am 05-29-2023 16:37-0400 Body temperature 97 [degF] Shima Barney PA-C Work Phone: [facility] 05-29-2023 16:37-0400 Body weight 99.5 kg Shima Barney PA-C Work Phone: [facility] 05-29-2023 16:37-0400 Diastolic blood pressure 120 mm[Hg] Shima Athy PA-C Work Phone: [facility] 05-29-2023 16:37-0400 Heart rate 116 /min Shima Athy PA-C Work Phone: [facility] 05-29-2023 16:37-0400 Respiratory rate 16 /min Shima Athy PA-C Work Phone: [facility] 05-29-2023 16:37-0400 SaO2% (BldA) [Mass fraction] 98 % Shima Athy PA-C Work Phone: [facility] 05-29-2023 16:37-0400 Systolic blood pressure 163 mm[Hg] Shima Athy PA-C Work Phone: [facility] 04-22-2023 09:05-0500 Diastolic blood pressure 88 mm[Hg] Mena Venron MD Work Phone: [facility] 04-22-2023 09:05-0500 Systolic blood pressure 138 mm[Hg] Mena Vernon MD Work Phone: [facility] 04-22-2023 08:18-0500 Body weight 97.98 kg Mena Vernon MD Work Phone: [facility] 04-22-2023 08:18-0500 Heart rate 88 /min Mena Vernon MD Work Phone: [facility] 10-22-2022 09:00-0400 Body height 160 cm Jaylan Syed MD Work Phone: [facility] 10-22-2022 09:00-0400 Body weight 99.79 kg Jaylan Syed MD Work Phone: [facility] 10-22-2022 09:00-0400 Diastolic blood pressure 90 mm[Hg] Jaylan Syed MD Work Phone: [facility] 10-22-2022 09:00-0400 Systolic blood pressure 148 mm[Hg] Jaylan Syed MD Work Phone: [facility] 06-22-2022 16:43-0400 Body height 157.48 cm [facility] 06-22-2022 16:43-0400 Body mass index (BMI) [Ratio] 38.4 kg/m2 [facility] 06-22-2022 16:43-0400 Body temperature 97.8 [degF] [facility] 06-22-2022 16:43-0400 Body weight 95.25 kg [facility] 06-22-2022 16:43-0400 Diastolic blood pressure 90 mm[Hg] [facility] 06-22-2022 16:43-0400 Heart rate 94 /min [facility] 06-22-2022 16:43-0400 Respiratory rate 16 /min [facility] 06-22-2022 16:43-0400 SaO2% (BldA) [Mass fraction] 100 % [facility] 06-22-2022 16:43-0400 Systolic blood pressure 167 mm[Hg] [facility] 04-10-2022 11:18-0500 Body temperature 98.01 [degF] Mena Vernon MD Work Phone: [facility] 04-10-2022 11:18-0500 Body weight 94.35 kg Mena Vernon MD Work Phone: [facility] 04-10-2022 11:18-0500 Diastolic blood pressure 74 mm[Hg] Mena Vernon MD Work Phone: [facility] 04-10-2022 11:18-0500 Heart rate 104 /min Mena Vernon MD Work Phone: [facility] 04-10-2022 11:18-0500 Respiratory rate 18 /min Mena Vernon MD Work Phone: [facility] 04-10-2022 11:18-0500 SaO2% (BldA) [Mass fraction] 99 % Mena Vernon MD Work Phone: [facility] 04-10-2022 11:18-0500 Systolic blood pressure 130 mm[Hg] Mena Vernon MD Work Phone: [facility] 04-02-2022 19:58-0500 Body temperature 98.29 [degF] Krislyn Aberegg PA Work Phone: [facility] 04-02-2022 19:58-0500 Body weight 97.07 kg Krislyn Aberegg PA Work Phone: [facility] 04-02-2022 19:58-0500 Diastolic blood pressure 86 mm[Hg] Krislyn Aberegg PA Work Phone: [facility] 04-02-2022 19:58-0500 Heart rate 100 /min Krislyn Aberegg PA Work Phone: [facility] 04-02-2022 19:58-0500 Respiratory rate 16 /min Krislyn Aberegg PA Work Phone: [facility] 04-02-2022 19:58-0500 SaO2% (BldA) [Mass fraction] 99 % Krislyn Aberegg PA Work Phone: [facility] 04-02-2022 19:58-0500 Systolic blood pressure 138 mm[Hg] Krislyn Aberegg PA Work Phone: [facility] 02-15-2022 09:06-0500 Body height 162.6 cm Venita Nair MECHANICAL OPERATOR-GREEN CH[employer] MARKER Work Phone: [facility] 02-15-2022 09:06-0500 Body mass index (BMI) [Ratio] 36.06 kg/m2 Venita Havana MECHANICAL OPERATOR-[employer] CH[employer] MARKER Work Phone: [facility] 02-15-2022 09:06-0500 Body temperature 98.29 [degF] Venita Havana MECHANICAL OPERATOR-[employer] CH[employer] MARKER Work Phone: [facility] 02-15-2022 09:06-0500 Body weight 95.3 kg Venita Nair MECHANICAL OPERATOR-[employer] CH[employer] MARKER Work Phone: [facility] 02-15-2022 09:06-0500 Diastolic blood pressure 93 mm[Hg] Venita Nair MECHANICAL OPERATOR-GRE[employer] CH[employer] MARKER Work Phone: [facility] 02-15-2022 09:06-0500 Heart rate 86 /min Venita Nair MECHANICAL OPERATOR-[employer] CH[employer] MARKER Work Phone: [facility] 02-15-2022 09:06-0500 Systolic blood pressure 162 mm[Hg] Venita Nair MECHANICAL OPERATOR-GRE[employer] CH[employer] MARKER Work Phone: [facility] 01-28-2022 10:02-0500 Body weight 96.16 kg Kayla Ferrer MD Work Phone: [facility] 01-28-2022 10:02-0500 Diastolic blood pressure 90 mm[Hg] Kayla Ferrer MD Work Phone: [facility] 01-28-2022 10:02-0500 Systolic blood pressure 154 mm[Hg] Kayla Ferrer MD Work Phone: [facility] 11-09-2021 10:19-0400 Body temperature 97.1 [degF] [facility] Work Phone: 11-09-2021 10:19-0400 Diastolic blood pressure 90 mm[Hg] [facility] Work Phone: 11-09-2021 10:19-0400 Heart rate 68 /min [facility] Work Phone: 11-09-2021 10:19-0400 Respiratory rate 18 /min [facility] Work Phone: 11-09-2021 10:19-0400 SaO2% (BldA) [Mass fraction] 97 % [facility] Work Phone: 11-09-2021 10:19-0400 Systolic blood pressure 142 mm[Hg] [facility] Work Phone: 11-09-2021 07:24-0400 Body height 157.48 cm [facility] Work Phone: 11-09-2021 07:24-0400 Body mass index (BMI) [Ratio] 38.8 kg/m2 [facility] Work Phone: 11-09-2021 07:24-0400 Body weight 96.3 kg [facility] Work Phone: 10-23-2021 11:02-0400 Body height 160 cm Jaylan Syed MD Work Phone: [facility] 10-23-2021 11:02-0400 Body weight 96.16 kg Jaylan Syed MD Work Phone: [facility] 10-23-2021 11:02-0400 Diastolic blood pressure 96 mm[Hg] Jaylan Syed MD Work Phone: [facility] 10-23-2021 11:02-0400 Heart rate 96 /min Jaylan Syed MD Work Phone: [facility] 10-23-2021 11:02-0400 Respiratory rate 16 /min Jaylan Syed MD Work Phone: [facility] 10-23-2021 11:02-0400 Systolic blood pressure 142 mm[Hg] Jaylan Syed MD Work Phone: [facility] 10-10-2021 11:35-0400 Diastolic blood pressure 92 mm[Hg] Jaylan Syed MD Work Phone: [facility] 10-10-2021 11:35-0400 Systolic blood pressure 136 mm[Hg] Jaylan Syed MD Work Phone: [facility] 09-19-2021 09:13-0400 Body height 160 cm Jaylan Syed MD Work Phone: [facility] 09-19-2021 09:13-0400 Body weight 97.07 kg Jaylan Syed MD Work Phone: [facility] 09-19-2021 09:13-0400 Diastolic blood pressure 96 mm[Hg] Jaylan Syed MD Work Phone: [facility] 09-19-2021 09:13-0400 Systolic blood pressure 148 mm[Hg] Jaylan Syed MD Work Phone: [facility] 07-31-2021 10:47-0400 Diastolic blood pressure 90 mm[Hg] Mena Vernon MD Work Phone: [facility] 07-31-2021 10:47-0400 Heart rate 70 /min Mena Vernon MD Work Phone: [facility] 07-31-2021 10:47-0400 Systolic blood pressure 142 mm[Hg] Mena Vernon MD Work Phone: [facility] 07-27-2021 15:59-0400 Diastolic blood pressure 75 mm[Hg] [facility] Work Phone: 07-27-2021 15:59-0400 SaO2% (BldA) [Mass fraction] 95 % [facility] Work Phone: 07-27-2021 15:59-0400 Systolic blood pressure 141 mm[Hg] [facility] Work Phone: 07-27-2021 12:03-0400 Body height 157.48 cm [facility] Work Phone: 07-27-2021 12:03-0400 Body mass index (BMI) [Ratio] 36.6 kg/m2 [facility] Work Phone: 07-27-2021 12:03-0400 Body temperature 97.6 [degF] [facility] Work Phone: 07-27-2021 12:03-0400 Body weight 90.71 kg [facility] Work Phone: 07-27-2021 12:03-0400 Heart rate 104 /min [facility] Work Phone: 07-27-2021 12:03-0400 Respiratory rate 18 /min [facility] Work Phone: Encounters Encounter Date Encounter Type Care Provider Facility Start: 11-12-2024 End: 11-15-2024 Refill Mena Vernon MD Work Phone: [facility] [place] Comment on above: Refill Request Start: 11-09-2024 End: 11-09-2024 Telephone encounter Mena Vernon MD Work Phone: [facility] [place] Comment on above: FMLA form Start: 08-10-2024 End: 08-10-2024 Patient encounter procedure Sergio Mcfarland [facility] Work Phone: Start: 08-10-2024 End: 08-10-[address] Mena Vernon MD Work Phone: [facility] Work Phone: Start: 08-10-2024 End: 08-10-2024 ambulatory Mena Vernon Facility:[facility] Start: 08-03-2024 End: 10-03-2024 Follow-up encounter Jaylan Syed MD Work Phone: OB/Gynecology Start: 07-28-2024 End: 07-28-2024 ambulatory MENA Nicolas VERNON Facility:[facility] Start: 07-23-2024 End: 07-23-2024 Telephone encounter Patricia Grimes MD Work Phone: [facility] Comment on above: Appointment Start: 07-21-2024 End: 07-21-2024 Patient encounter procedure Jaylan Syed MD Work Phone: OB/Gynecology Comment on above: Encounter for gyneco logical examination (general) (routine) without abnormal findings (Primary Dx); Screening for cervical cancer; Encounter for screening for human papillomavirus (HPV); BMI 38.0-38.9,adult Start: 07-21-2024 End: 07-21-2024 Patient encounter status Jaylan Syed MD Work Phone: [facility] Start: 07-21-2024 End: 07-21-2024 ambulatory JAYLAN SYED Facility:[facility] Start: 07-21-2024 Encounter for gynecological examination (general) (routine) without abnormal findings JAYLAN SYED [facility] Start: 07-12-2024 End: 07-12-[address] Mena Vernon MD Work Phone: [facility] Work Phone: Start: 07-12-2024 End: 07-12-[address] Tristen Harrison DO -Laboratory Work Phone: Start: 07-12-2024 End: 07-12-2024 ambulatory Tristen Harrison Facility:[facility] Start: 07-05-2024 Non-patient / Non-visit [facility]. Beltre [facility] Work Phone: Start: 07-05-2024 Non-patient / Non-visit Dr. Aman Austin MD -[facility] Start: 07-04-2024 ambulatory Mena Vernon Facilit y:[facility] Start: 07-04-2024 End: 07-05-2024 Evaluation and management of inpatient Dr. Juan Hdez MD -Medical Surgical 3 Work Phone: Start: 05-23-2024 End: 05-24-2024 ambulatory Mena Vernon MD Work Phone: [facility] [place] Comment on above: PA ISSUE! Start: 05-17-2024 End: 05-25-2024 Telephone encounter Mena Vernon MD Work Phone: [facility] [place] Comment on above: Insurance Authorizat ion Start: 04-19-2024 End: 04-19-2024 ambulatory MENA VERNON Facility:[facility] Start: 04-19-2024 End: 04-19-2024 ambulatory MENA VERNON Facility:[facility] Start: 04-19-2024 End: 04-19-2024 Office outpatient visit 25 minutes Mena Vernon MD Work Phone: [facility] [place] Comment on above: Attention deficit hy peractivity disorder (ADHD), unspecified ADHD type (Primary Dx); Essential (primary) hypertension; Iron deficiency anemia, unspecified iron deficiency anemia type; Radiculopathy, thoracic region; Encounter for long-term current use of medication; Obesity, Class II, BMI 35-39.9 Start: 04-14-2024 End: 04-14-2024 ambulatory MNEA VERNON Facility:[facility] Start: 04-14-2024 End: 04-14-2024 Patient encounter procedure Aliza Mcnamara APRN.GREEN CHAIN MARKER Work Phone: [facility] Comment on above: Viral URI (Primary D x); Acute cough Start: 02-02-2024 End: 02-02-2024 Refill Mena Vernon MD Work Phone: [facility] [place] Comment on above: Refill Request Start: 12-03-2023 End: 12-03-2023 Telephone encounter Mena Vernon MD Work Phone: [facility] [place] Comment on above: Insurance Authorizat ion Start: 11-07-2023 End: 11-07-2023 ambulatory DIEGO FOX MD Facility: Start: 11-07-2023 End: 11-07-2023 Patient encounter procedure DIEGO FOX MD [facility] Start: 11-05-2023 End: 11-05-2023 Emergency department patient visit DIEGO FOX MD [facility] Start: 11-05-2023 End: 11-05-2023 Patient encounter procedure Joanie Pak APRN.GREEN CH[employer] MARKER Work Phone: [facility] Comment on above: Right upper quadrant abdominal pain (Primary Dx); Flank pain Start: 11-05-2023 End: 11-05-2023 Emergency department patient visit Mena Vernon Facility:[facility] Start: 10-03-2023 End: 10-03-2023 Office outpatient visit 25 minutes Mena Vernon MD Work Phone: [facility] [place] Comment on above: Attention deficit hy peractivity disorder (ADHD), unspecified ADHD type (Primary Dx); Iron deficiency; Primary hypertension; Class 2 obesity due to excess calories with body mass index (BMI) of 38.0 to 38.9 in adult, unspecified whether serious comorbidity present Start: 10-03-2023 Refill Karol Jai MECHANICAL OPERATOR.GREEN CH[employer] MARKER Work Phone: [facility] [place] Comment on above: Refill Request Start: 09-03-2023 Refill Karol Jai MECHANICAL OPERATOR.GREEN CH[employer] MARKER Work Phone: [facility] [place] Comment on above: Refill Request Start: 08-31-2023 End: 08-31-2023 Patient encounter procedure Madhu Ames MECHANICAL OPERATOR.GREEN CH[employer] MARKER Work Phone: [facility] Comment on above: Sore throat (Primary Dx) Start: 08-05-2023 Refill Mena gamboa MD Work Phone: [facility] [place] Comment on above: Refill Request Start: 08-02-2023 Refill Deepti Redd MECHANICAL OPERATOR.INFORMATION BROKER Work Phone: [facility] [place] Comment on above: Refill Request Start: 07-04-2023 Refill Mena gamboa MD Work Phone: [facility] [place] Comment on above: Refill Request Start: 07-03-2023 Telephone encounter Mena rubio MD Work Phone: [facility] [place] Comment on above: Medication Problem ( Adderall) Medication Problem Start: 06-20-2023 Telephone encounter Jaylan Syed MD Work Phone: OB/Gynecology Comment on above: Vaginal Problem Start: 05-29-2023 End: 05-29-2023 Subsequent hospital visit by physician [facility] [place] Work Phone: Radiology Comment on above: Acute cough [R05.1] Start: 05-29-2023 End: 05-29-2023 Patient encounter procedure Shima Barney PA-C Work Phone: [facility] Comment on above: Viral URI (Primary D x) Start: 04-28-2023 Telephone encounter Mena rubio MD Work Phone: [facility] [place] Comment on above: Insurance Authorizat ion Start: 04-22-2023 End: 04-22-2023 Office outpatient visit 25 minutes Mena Vernon MD Work Phone: [facility] [place] Comment on above: Attention deficit hy peractivity [...] Mena gamboa MD Work Phone: [facility] [place] Comment on above: Medication change re quest Start: 01-09-2023 ambulatory Adilene eli MD Work Phone: Endocrinology Comment on above: Urgent Rx side effec ts Start: 11-14-2022 Refill Karol Vergara APRN.CNP Work Phone: [facility] [place] Comment on [...] encounter status Jaylan Syed MD Work Phone: [facility] Work Phone: Start: 07-17-2022 Refill Jaylan chung MD Work Phone: OB/Gynecology Comment on above: Refill Request Start: 07-15-2022 Telephone encounter Jaylan Syed MD Work Phone: OB/Gynecology Comment on above: Vaginal Problem Patient Update; Medi cation Request Start: 07-11-2022 Telephone encounter Mena rubio MD Work Phone: [facility] [place] Comment on above: Medication Problem ( Lexapro ) Start: 07-10-2022 End: 07-10-2022 Office outpatient visit 25 minutes Mena Vernon MD Work Phone: [facility] [place] Comment on above: Attention deficit hy peractivity disorder (ADHD), unspecified ADHD type (Primary Dx); Anxiety and depression; Dry eyes Start: 06-22-2022 End: 06-22-2022 [facility] Start: 04-23-2022 Telephone encounter Mena rubio [...] Patient encounter procedure Elizabeth LIEBERMAN Work Phone: [facility] Comment on above: URI, acute (Primary Dx); Nausea Start: 03-19-2022 Telephone encounter Mena rubio MD Work Phone: [facility] [place] Comment on above: Medication Problem Start: 02-15-2022 ambulatory VENITA NAIR Facility: [facility] Start: 02-15-2022 End: 02-15-2022 Subsequent hospital visit by physician Venita SALDAÑA Work Phone: [facility] Comment on above: Arrived Start: 02-15-2022 End: 02-15-2022 Office outpatient new 45 minutes Venita SALDAÑA Work Phone: [facility] Comment on above: Breast pain (Primary Dx); Mass of right breast, unspecified quadrant Start: 01-28-2022 Telephone encounter Mena rubio MD Work Phone: [facility] [place] Comment on above: fax orders to [facility] Patient Question Start: 01-28-2022 End: 01-28-2022 Patient encounter procedure Kayla Ferrer MD Work Phone: OB/Gynecology Comment on above: Breast pain (Primary Dx); Large breasts Start: 01-15-2022 Telephone encounter Mena rubio MD Work Phone: [facility] [place] Comment on above: Appointment Start: 12-31-2021 Refill Mena gamboa MD Work Phone: [facility] [place] Comment on above: Refill Request (que ent wants brand name Adderall rx) Start: 12-28-2021 Telephone encounter Mena rubio MD Work Phone: [facility] [place] Comment on above: Med Change Request Start: 11-26-2021 ambulatory Mena gamboa MD Work Phone: [facility] [place] Comment on above: Rx Question Start: 11-09-2021 End: 11-09-2021 ambulatory Jaylan Syed MD Work Phone: [facility] Work Phone: Comment on above: Encounter for steril ization (Primary Dx) Start: 11-09-2021 Patient encounter procedure Jaylan Syed MD Work Phone[facility] Start: 11-09-2021 End: 11-09-2021 Admission to same day surgery center [facility] Start: 10-31-2021 End: 10-31-2021 Office outpatient visit 40 minutes Mena Vernon MD Work Phone: [facility] [place] Comment on above: Attention deficit hy peractivity [...] [facility] [place] Comment on above: Medication Question Start: 10-10-2021 [...] Mena gamboa MD Work Phone: [facility] [place] Comment on above: Refill Request Start: 08-09-2021 ambulatory Mena gamboa MD Work Phone: [facility] [place] Comment on above: Barky Cough Start: 07-31-2021 End: 07-31-2021 Office outpatient visit 40 minutes Mena Vernon MD Work Phone: [facility] [place] Comment on above: Attention deficit hy peractivity disorder (ADHD), unspecified ADHD type (Primary Dx); Tremor; Eyelid twitch; Acne vulgaris; Class 2 obesity due to excess calories with body mass index (BMI) of 37.0 to 37.9 in adult, unspecified whether serious comorbidity present Start: 07-27-2021 End: 07-27-2021 Emergency department patient visit [facility] Procedures Date Procedure Procedure Detail Performing [...] 08-31-2023 STREP A MOLECULAR (POC) Albert Gutierrez APRN.GREEN CH[employer] MARKER Work Phone: Start: 05-29-2023 Radiologic exam ches t 2 views Shima Barney PA-C Work Phone: Start: 02-15-2022 Us breast uni real t haile with image limited Venita Nair MECHANICAL OPERATOR-GREEN CHAIN MARKER Work Phone: Start: 02-15-2022 Diagnostic mammograp hy computer-aided detcj bi Venita Nair MECHANICAL OPERATOR-GREEN CHAIN MARKER Work Phone: Start: 11-09-2021 Laparoscopic salpingectomy Start: 10-10-2021 Urine test visual color cmprsn meths Jaylan Syed MD Work Phone: Start: 07-31-2021 Adult depression scr eening assessment Mena Vernon MD Work Phone: Plan of Treatment Date Care Activity Detail Author Start: 07-21-2029 Screening for malignant neoplasm of cervix Cervical Cancer Screening [facility] Start: 12-08-2028 Tetanus vaccination TETANUS [facility] Start: 12-08-2028 [facility] Start: 07-28-2025 Annual PCP Team Chronic Disease Visit Annual PCP Team Chronic Disease Visit [facility] Start: 07-22-2025 End: 07-22-2025 Patient encounter procedure 07/22/2025 1:40 PM EDT Office Visit OB/Gynecology [address] [place] [address] Jaylan Syed MD [address] [place], [place] [id number] annual OB/Gynecology Comment on above: annual Start: 07-04-2025 HPV TESTING HPV TESTING [facility] Start: 07-04-2025 PAP TESTING PAP TESTING [facility] Start: 07-04-2025 Screening for malignant neoplasm of cervix [facility] Start: 04-19-2025 Annual PCP Team Chronic Disease Visit Annual PCP Team Chronic Disease Visit [facility] Start: 04-19-2025 BP Controlled (<130/80) BP Controlled (<130/80) [facility] Start: 04-04-2025 End: 04-04-2025 Patient encounter procedure 04/04/2025 2:40 PM EST Office Visit [facility] [place] [address] [facility] [place] [address] Mena Vernon MD [address] [place] [address] 3 month f/u [facility] [place] Comment on above: 3 month f/u Start: 11-18-2024 End: 11-18-2024 Patient encounter procedure 11/18/2024 9:20 AM EDT Office Visit OB/Gynecology [address] [place] [address] Kayla Denny MD [address] [place] [address] Ovarian cyst found on hospital stay, unrelated iss OB/Gynecology Comment on above: Ovarian cyst found on hospital stay, unr elated iss Start: 11-08-2024 Influenza vaccination [facility] Start: 10-27-2024 End: 10-27-2024 Patient encounter procedure 10/27/2024 10:40 AM EDT Office Visit [facility] [place] [address] [facility] [place] [address] Mena Vernon MD [address] [place] [address] 3 month f/u [facility] [place] Comment on above: 3 month f/u Start: 10-02-2024 Annual PCP Team Chronic Disease Visit Annual PCP Team Chronic Disease Visit [facility] Start: 09-06-2024 Influenza vaccination Influenza Vaccine (#1) [facility] Comment on above: Postponed from 11/09/2023 (Declined at t his time) Start: 08-10-2024 C reactive protein [Mass/volume] in Serum or Plasma [facility] Start: 08-10-2024 CBC W Auto Differential panel - Blood [facility] Start: 08-10-2024 Comprehensive metabolic 2000 panel - Serum or Plasma [facility] Start: 08-10-2024 Erythrocyte sedimentation rate [facility] Start: 07-28-2024 End: 07-28-2024 Patient encounter procedure 07/28/2024 9:20 AM EDT Office Visit [facility] [place] [address] [facility] [place] [address] Mena Vernon MD [address] [place] [address] 3 month follow up [facility] [place] Comment on above: 3 month follow up Start: 07-23-2024 End: 07-23-2024 Patient encounter procedure 07/23/2024 9:20 AM EDT Office Visit [facility] [place] [address] [facility] [place] [address] Mena Vernon MD [address] [place] [address] 3 month follow up [facility] [place] Comment on above: 3 month follow up Start: 07-21-2024 End: 07-21-2024 Patient encounter procedure 07/21/2024 4:00 PM EDT Office Visit OB/Gynecology [address] [place] [address] Jaylan Syed MD [address] [place] [address] Annual visit OB/Gynecology Comment on above: Annual visit Start: 07-20-2024 End: 07-20-2024 Patient encounter procedure 07/20/2024 8:20 AM EDT Office Visit [facility] [place] [address] [facility] [place] [address] Mena Vernon MD [address] [place] [address] 3 month follow up [facility] [place] Comment on above: 3 month follow up Start: 07-05-2024 Patient discharge [facility] Start: 07-05-2024 Cytomegalovirus IgM antibody assay [facility] Start: 07-05-2024 Immunoglobulin measurement [facility] Start: 07-05-2024 Laboratory test [facility] Start: 07-05-2024 Serum immunofixation [facility] Start: 07-05-2024 End: 07-05-2024 [facility] Start: 07-04-2024 Following clinical pathway protocol [facility] Start: 07-04-2024 Assessment of risk of venous thromboembolism [facility] Start: 07-04-2024 Incentive spirometry [facility] Start: 07-04-2024 Insertion of catheter into peripheral vein [facility] Start: 07-04-2024 Measuring intake and output [facility] Start: 07-04-2024 Oxygen therapy [facility] Start: 07-04-2024 Providing care according to standard [facility] Start: 07-04-2024 Referral to gastroenterology service [facility] Start: 07-04-2024 Referral to general surgeon [facility] Start: 07-04-2024 [facility] Start: 07-04-2024 Verification routine [facility] Start: 07-04-2024 Hospital admission, emergency, from emergency room, medical nature [facility] Start: 07-04-2024 Admission procedure [facility] Start: 07-04-2024 End: 07-04-2024 [facility] Start: 07-04-2024 Gamma glutamyl transferase measurement [facility] Start: 04-22-2024 Hepatitis B Vaccine (1 of 3 - 19+ 3-dose series) Hepatitis B Vaccine (1 of 3 - 19+ 3-dose series) [facility] Comment on above: Postponed from 08/14/2006 (Declined at t his time) Start: 04-22-2024 Hepatitis B Vaccine (1 of 3 - 3-dose series) Hepatitis B Vaccine (1 of 3 - 3-dose series) [facility] Comment on above: Postponed from 1987 (Declined at t his time) Start: 04-19-2024 End: 07-19-2024 CBC panel - Blood by Automated count [facility] Comment on above: Expected: 04/19/2024, Expires: Start: 04-19-2024 End: 07-19-2024 Comprehensive metabolic 2000 panel - Serum or Plasma [facility] Work Phone: Comment on above: Expected: 04/19/2024, Expires: Start: 04-19-2024 End: 07-19-2024 Ferritin [Mass/volume] in Serum or Plasma [facility] Comment on above: Expected: 04/19/2024, Expires: Start: 04-19-2024 End: 07-19-2024 Iron and Iron binding capacity panel - Serum or Plasma [facility] Comment on above: Expected: 04/19/2024, Expires: Start: 04-19-2024 End: 07-19-2024 Lipid 1996 panel - Serum or Plasma [facility] Comment on above: Expected: 04/19/2024, Expires: Start: 04-19-2024 End: 04-19-2024 Patient encounter procedure 04/19/2024 8:40 AM EST Office Visit [facility] [place] [address] [facility] [place] [address] Mena Vernon MD [address] [facility] [place] [address] 3 month follow up [facility] [place] Comment on above: 3 month follow up Start: 01-13-2024 End: 01-13-2024 Patient encounter procedure 01/13/2024 8:20 AM EST Office Visit [facility] [place] [address] [place] [address] Mena Vernon MD [address] [facility] [place] [address] 3 month follow up [facility] [place] Comment on above: 3 month follow up Start: 11-09-2023 Influenza vaccination [facility] Start: 10-24-2023 End: 10-24-2023 Patient encounter procedure 10/24/2023 9:00 AM EDT Office Visit OB/Gynecology [address] [place] [address] Jaylan Syed MD [address] [place] [address] annual OB/Gynecology Comment on above: annual Start: 10-03-2023 End: 10-03-2023 Patient encounter procedure 10/03/2023 4:20 PM EDT Office Visit [facility] [place] [address] [place] [address] Mena Vernon MD [address] [place] [address] 3 month follow up [facility] [place] Comment on above: 3 month follow up Start: 09-07-2023 Influenza vaccination Influenza Vaccine (#1) [facility] Comment on above: Postponed from 11/08/2022 (Declined at t his time) Start: 04-10-2023 COVID-19 VACCINE (3 - Booster for Pfizer series) COVID-19 VACCINE (3 - Booster for Pfizer series) [facility] Comment on above: Postponed from 04/04/2021 (Declined at t his time) Start: 04-10-2023 COVID-19 VACCINE (3 - Pfizer series) COVID-19 VACCINE (3 - Pfizer series) [facility] Comment on above: Postponed from 04/04/2021 (Declined at t his time) Start: 04-10-2023 HEPATITIS B (1 of 3 - 3-dose series) HEPATITIS B (1 of 3 - 3-dose series) [facility] Comment on above: Postponed from 1987 (Declined at t his time) Start: 04-10-2023 Hepatitis B Vaccine (1 of 3 - 3-dose series) Hepatitis B Vaccine (1 of 3 - 3-dose series) [facility] Comment on above: Postponed from 1987 (Declined at t his time) Start: 11-08-2022 Covid-19 Vaccine ( season) Covid-19 Vaccine ( season) [facility] Start: 11-08-2022 Influenza vaccination [facility] Start: 09-06-2022 Influenza vaccination INFLUENZA (#1) [facility] Comment on above: Postponed from 11/08/2021 (Declined at t his time) Start: 07-31-2022 Adult depression screening assessment DEPRESSION SCREENING [facility] Start: 11-09-2021 Patient discharge [facility] Work Phone: Start: 11-09-2021 Ambulation without limitation [facility] Work Phone: Start: 11-09-2021 Medical regimen orders management [facility] Work Phone: Start: 11-09-2021 Medication education [facility] Work Phone: Start: 11-09-2021 Procedure discontinued [facility] Work Phone: Start: 11-09-2021 Taking patient vital signs [facility] Work Phone: Start: 11-09-2021 Vital signs measurements [facility] Work Phone: Start: 11-09-2021 [facility] Work Phone: Start: 11-08-2021 Influenza vaccination [facility] Start: 09-19-2021 End: 11-19-2021 Thyrotropin [Units/volume] in Serum or Plasma [facility] Work Phone: Comment on above: Expected: 09/19/2021, Expires: 2 Start: 07-08-2021 COVID-19 VACCINE (3 - Booster for Pfizer series) COVID-19 VACCINE (3 - Booster for Pfizer series) [facility] Start: 04-04-2021 COVID-19 VACCINE (3 - Booster for Pfizer series) COVID-19 VACCINE (3 - Booster for Pfizer series) [facility] Start: 08-14-2014 HPV Vaccine (1 - 3-dose SCDM series) HPV Vaccine (1 - 3-dose SCDM series) [facility] Start: 08-14-2008 Screening for malignant neoplasm of cervix CERVICAL CANCER SCREENING DISCUSSION [facility] Start: 08-14-2006 Hepatitis B Vaccine (1 of 3 - 19+ 3-dose series) Hepatitis B Vaccine (1 of 3 - 19+ 3-dose series) [facility] Start: 08-14-2005 BP Controlled (<130/80) BP Controlled (<130/80) [facility] Start: 08-14-2005 HEPATITIS C SCREENING HEPATITIS C SCREENING [facility] Start: 08-14-2002 HIV screening HIV SCREENING DISCUSSION [facility] Start: 1987 HEPATITIS B (1 of 3 - 3-dose series) HEPATITIS B (1 of 3 - 3-dose series) [facility] Start: 1987 Hepatitis C screening HEPATITIS C VIRUS SCREENING [facility] Alanine aminotransfe rase [Enzymatic activity/volume] in Serum or Plasma [facility] Albumin [Mass/volume ] in Serum or Plasma [facility] Albumin [Moles/volum e] in Serum or Plasma [facility] Albumin/Globulin ratio [facility] Alkaline phosphatase [Enzymatic activity/volume] in Serum or Plasma [facility] Anion gap in Serum o r Plasma [facility] Bilirubin, total measurement [facility] BUN/Creatinine ratio [facility] Calcium [Mass/volume ] in Serum or Plasma [facility] Carbon dioxide, tota l [Moles/volume] in Central venous blood [facility] Chitobioside IgA Ab [Units/volume] in Serum or Plasma by Immunoassay [facility] Creatinine [Mass/vol ume] in Serum or Plasma [facility] End: 02-27-2023 Diagnostic mammography computer-aided detcj bi [facility] DIAGNOSTIC BILAT Radiology Routine Breast pain Large breasts 1 Occurrences starting 01/28/2022 until 02/27/2023 [facility] Work Phone: Comment on above: 1 Occurrences starting 01/28/2022 until 02/27/2023 Electrophoresis: [id number] [facility] Electrophoresis: alexa ma globulin [facility] Endometrial bx w/wo endocervix bx w/o dilat spx ENDOMETRIAL BIOPSY Procedures Routine Menorrhagia with regular cycle Ordered: 09/19/2021 [facility] Work Phone: Comment on above: Ordered: 09/19/2021 Eboni Alcala virus c apsid IgG Ab [Units/volume] in Serum [facility] Eboni Alcala virus c apsid IgM Ab [Units/volume] in Serum [facility] Eboni Alcala virus n uclear IgG Ab [Units/volume] in Cerebral spinal fluid [facility] Eboni-Alcala virus serologic test [facility] Gliadin peptide IgA Ab [Units/volume] in Serum [facility] Gliadin peptide IgG Ab [Units/volume] in Serum [facility] Globulin measurement [facility] Glucose [Mass/volume ] in Serum or Plasma [facility] Hepatic function panel [facility] Hepatitis A virus Ig M Ab [Presence] in Serum [facility] Hepatitis B core ant ibody measurement, IgM type [facility] Hepatitis B surface antigen measurement [facility] Hepatitis C antibody measurement [facility] IgA [Mass/volume] in Serum or Plasma [facility] IgE [Units/volume] i n Serum or Plasma [facility] IgG [Mass/volume] in Serum or Plasma [facility] IgG subclass 1 [Mass/volume] in Serum [facility] IgG subclass 2 [Mass/volume] in Serum [facility] IgG subclass 3 [Mass/volume] in Serum [facility] IgG subclass 4 [Mass/volume] in Serum [facility] IgM [Mass/volume] in Serum or Plasma [facility] Laboratory data interpretation [facility] Laminaribioside IgG Ab [Units/volume] in Serum or Plasma by Immunoassay [facility] Mannobioside IgG Ab [Units/volume] in Serum or Plasma by Immunoassay [facility] Measurement of funga l antibody [facility] Measurement of immunoglobulin A in serum specimen [facility] Measurement of renal function [facility] Mitochondria Ab [Pre sence] in Serum [facility] Neutrophil cytoplasm ic Ab.classic [Units/volume] in Serum [facility] Neutrophil cytoplasm ic Ab.perinuclear.atypical [Titer] in Serum by Immunofluorescence [facility] P-ANCA measurement [facility] PAP TEST PAP TEST Lab [facility] satish Screening for cervical cancer Encounter for screening for human papillomavirus (HPV) Ordered: 07/21/2024 [facility] Work Phone: Comment on above: Ordered: 07/21/2024 Patient Education [facility] Work Phone: Patient referral [facility] Work Phone: PELVIC US WHI PELVIC US WHI An c Imaging Routine Menorrhagia with regular cycle Ordered: 09/19/2021 [facility] Work Phone: Comment on above: Ordered: 09/19/2021 Potassium measurement [facility] Protein electrophore sis panel - Serum or Plasma [facility] Serum chloride measurement [facility] Smooth muscle Ab [Pr esence] in Serum [facility] Sodium measurement [facility] SURGICAL PATHOLOGY SURGICAL PATH OLOGY Lab Routine Menorrhagia with regular cycle Ordered: 10/10/2021 [facility] Work Phone: Comment on above: Ordered: 10/10/2021 Tissue transglutamin ase IgA Ab [Units/volume] in Serum [facility] Total protein measurement [facility] TOX SCREEN ROUT UR TOX SCREEN RO UT UR Lab Routine Encounter for long-term current use of medication Ordered: 04/10/2022 [facility] Work Phone: Comment on above: Ordered: 04/10/2022 Urea nitrogen [Mass/ volume] in Serum or Plasma [facility] End: 02-27-2023 Us breast uni real time with image limited US BREAST LTD RT Radiology Routine Breast pain Large breasts 1 Occurrences starting 01/28/2022 until 02/27/2023 [facility] Work Phone: Comment on above: 1 Occurrences starting 01/28/2022 until 02/27/2023 [facility] Immunizations Immunization Date Immunization Notes Care Provider Brenda roldan 02-07-2021 influenza, injectabl e, quadrivalent, preservative free Mena Vernon MD Work Phone: [facility] 02-07-2021 influenza virus vaccine, unspecified formulation Venita Nair MECHANICAL OPERATOR-[employer]EN CH[employer] MARKER Work Phone: [facility] 12-08-2018 Influenza virus vaccine [facility] 12-08-2018 influenza, injectabl e, quadrivalent, preservative free Mena Vernon MD Work Phone: [facility] 12-08-2018 influenza, seasonal, injectable, preservative free Mena Vernon MD Work Phone: [facility] 12-08-2018 tetanus toxoid, redu tenisha diphtheria toxoid, and acellular pertussis vaccine, adsorbed [facility] 11-26-2018 influenza, injectabl e, quadrivalent, contains preservative Mena Vernon MD Work Phone: [facility] 11-11-2018 tetanus toxoid, redu tenisha diphtheria toxoid, and acellular pertussis vaccine, adsorbed Mena Vernon MD Work Phone: [facility] Work Phone: 03-12-2016 tetanus toxoid, redu tenisha diphtheria toxoid, and acellular pertussis vaccine, adsorbed Mena Vernon MD Work Phone: [facility] 02-08-2014 tetanus toxoid, redu tenisha diphtheria toxoid, and acellular pertussis vaccine, adsorbed Mena Vernon MD Work Phone: [facility] Payers Date Payer Category Payer Self-pay [id number] 2022 Unknown [id number] 2019 Medicaid [facility] [id number] 2019-Present [phone] [address] [place] [address] Medicaid [id number] 2019 Medicaid [id number] 2015 Unknown [id number] 2015 Unknown [id number] 1987 Unknown [id number] 1987 Unknown [id number] 1987 Unknown [id number] 1987 Unknown [id number] 1987 Unknown [id number] Self-pay SELF PAY INSURANCE [id number] Unknown [id number] Unknown [id number] Unknown [id number] Unknown [id number] Unknown [id number] Unknown [id number] Unknown [id number] Unknown [id number] Social History Date Type Detail Facility [facility] Work Phone: Start: 07-27-2021 End: 06-22-2022 Tobacco smoking status VAIS Unknown if ever smoked [facility] Start: 01-18-2019 None [facility] Start: 1985 Sex Assigned At Female [facility] Start: 12-28-2014 End: 07-21-2024 Tobacco smoking status VAIS Ex-smoker [facility] End: 06-03-2008 History of tobacco use Current smoker [facility] End: 06-03-2008 History of tobacco use Cigarette Smoker [facility] Start: 12-28-2014 End: 07-21-2024 Tobacco use and exposure Smokeless tobacco non-user [facility] Start: 07-31-2021 End: 07-21-2024 Alcohol intake Current non-drinker of alcohol (finding) [facility] Start: 04-30-2021 End: 07-10-2022 History SDOH Alcohol Frequency 3 [facility] Start: 04-30-2021 End: 07-10-2022 History SDOH Alcohol Std Drinks 1 [facility] Start: 04-30-2021 End: 07-10-2022 History SDOH Social Connections Membership 2 [facility] Start: 04-30-2021 History SDOH Physica l Activity MPS 6 [facility] Start: 04-30-2021 History SDOH Financial 4 [facility] Start: 11-23-2019 Education 21 [facility] Start: 11-09-2013 End: 01-28-2022 Tobacco Comment 2 Cigarettes per week [facility] Start: 1985 Sex Assigned At Not on file [facility] Start: 07-21-2021 End: 02-15-2022 Exposure to SARS-CoV-2 (event) Not sure [facility] Start: 02-15-2022 Alcohol intake Current drinke r of alcohol (finding) [facility] Start: 07-10-2022 History SDOH Social Connections Phone 5 [facility] Start: 07-10-2022 End: 11-12-2024 History of Social function [facility] Start: 07-10-2022 End: 11-12-2024 Social connection and isolation panel [facility] Do you belong to any clubs or organizations such as mosque groups, unions, fraternal or athletic groups, or school groups? No [facility] Are you now , , , , never or living with a partner? [facility] How often to you hav e a drink containing alcohol? 2-4 times a month [facility] How many standard dr inks containing alcohol do you have on a typical day? 1 or 2 [facility] How often do you hav e 6 or more drinks on 1 occasion? Never [facility] How hard is it for y ou to pay for the very basics like food, housing, medical care, and heating Somewhat hard [facility] Start: 02-09-2012 Adult Depression Screening Assessment 1 [facility] Do you feel stress - tense, restless, nervous, or anxious, or unable to sleep at night because your mind is troubled all the time - these days [OSQ] Only a little [facility] (I/We) worried alisha er (my/our) food would run out before (I/we) got money to buy more. Never true [facility] In the past 12 month s, was there a time when you were not able to pay the mortgage or rent on time? Yes [facility] Start: 09-13-2021 Gender identity Identifies as female gender (finding) [facility] Start: 07-04-2024 End: 07-05-2024 Sex Female (finding) [facility] How often to you hav e a drink containing alcohol? Monthly or less [facility] Do you feel stress - tense, restless, nervous, or anxious, or unable to sleep at night because your mind is troubled all the time - these days [OSQ] To some extent [facility] NEGATED: Highlighted row [facility] NEGATED: Highlighted row Not [facility] Goals Date Patient Goal Desired Activity /State Functional Status Date Assessment Result Facility 11-12-2024 Total score [AUDIT-C] 1 11/13/19 25 11:16 AM EDT User, Mag [facility] 11-12-2024 How often to you hav e a drink containing alcohol? Monthly or less 11/12/2024 11:16 AM EDT User, Mag Monthly or less [facility] 11-12-[address] inks containing alcohol do you have on a typical day? 1 or 2 11/12/2024 11:16 AM EDT User, Asiat 1 or 2 [facility] 11-12-2024 How often do you hav e 6 or more drinks on 1 occasion? Never 11/12/2024 11:16 AM EDT User, Mag Never [facility] 07-05-2024 Functional status Ambulates;Up ad maikol [facility] Work Phone: 11-05-2023 Functional Status Independent Sada Tomlin [place] 11-05-2023 Functional Status Standard Safet y ID band on, Call device within reach, Bed in low position, Wheels locked, Upper/Half-Length side-rails up, personal items within reach, Bedside Cart Locked, Visitor at bedside [facility] 09-16-2014 Are you deaf, or do you have serious difficulty hearing No 09/16/2014 4:09 PM EDT Lamont HiltonNamrata [facility] 09-16-2014 Are you blind, or do you have serious difficulty seeing, even when wearing glasses No 09/16/2014 4:09 PM EDT Lamont HiltonNamrata Olga [facility] 09-16-2014 Do you have serious difficulty walking or climbing stairs No 09/16/2014 4:09 PM EDT Lamont Hilton Namrata Espinoza [facility] 09-16-2014 Do you have difficul ty dressing or bathing No 09/16/2014 4:09 PM EDT Lamont Hilton Namrata Espinoza [facility] 09-16-2014 Because of a physica l, mental, or emotional condition, do you have difficulty doing errands alone such as visiting a physician's office or shopping No 09/16/2014 4:09 PM EDT Lamont Hilton Namrata Espinoza [facility] Mental Status Date Assessment Result Facility 07-04-2024 Cognitive function Voice/Name [facility] Work Phone: 11-05-2023 Mental Status Orientation Oriented x [address] [place] [address] 11-05-2023 Mental Status [facility] 11-09-2021 Cognitive function Voice/Name [facility] Work Phone: 09-16-2014 Because of a physica l, mental, or emotional condition, do you have serious difficulty concentrating, remembering, or making decisions No 09/16/2014 4:09 PM EDT Namrata Miguel Cma [facility] Clinical Notes 11-11-2018 to 11-15-2024 Telephone Encounter - Mena Vernon MD - 11/15/2024 12:59 AM EDTTelephone Encounter - Mena Vernon MD - 11/15/2024 12:59 AM EDTTelephone Encounter - Kamron Horton - 07/23/2024 11:52 AM EDT Note Date & Type Note Facility 11-15-2024 Telephone encount er Note The following approved medication requests have been transmitted electronically. Requested Prescriptions Signed Prescriptions Disp Refills ADDERALL 30 mg tablet 60 tablet 0 Sig: Take 1 tablet by mouth two times a day for 30 days. Patient should start on November 18, 2024. Authorizing Provider: MENA VERNON ADDERALL 30 mg tablet 60 tablet 0 Sig: Take 1 tablet by mouth two times a day for 30 days. Patient should start on December 18, 2024. Authorizing Provider: MENA VERNON ADDERALL 30 mg tablet 60 tablet 0 Sig: Take 1 tablet by mouth two times a day for 30 days. Patient should start on January 17, 2025. Authorizing Provider: MENA VERNON MD Patient has March appointment for follow up. Last had VV July and April. [facility] 11-15-2024 Miscellaneous Notes Formattin g of this note is different from the original. The following approved medication requests have been transmitted electronically. Requested Prescriptions Signed Prescriptions Disp Refills ADDERALL 30 mg tablet 60 tablet 0 Sig: Take 1 tablet by mouth two times a day for 30 days. Patient should start on November 18, 2024. Authorizing Provider: MENA VERNON ADDERALL 30 mg tablet 60 tablet 0 Sig: Take 1 tablet by mouth two times a day for 30 days. Patient should start on December 18, 2024. Authorizing Provider: MENA VERNON ADDERALL 30 mg tablet 60 tablet 0 Sig: Take 1 tablet by mouth two times a day for 30 days. Patient should start on January 17, 2025. Authorizing Provider: MENA VERNON MD Patient has March appointment for follow up. Last had VV July and April. Prescription Refill Information The patient has been identified by name and date of : Yes Caregiver verified no other encounters exist for this prescription request: Yes Caregiver confirmed with patient/requestor that no other refills are due, in the near future, with this provider at this time: Yes The last office visit in the department: 07/28/24 Does the patient have a future office [...] two times a day for 30 days. Edelmira Baugh LPN November 12, 2024 11:51 AM documented in this encounter [facility] 11-12-2024 Telephone encount er Note Prescription Refill Information The patient has been identified by name and date of : Yes Caregiver verified no other encounters exist for this prescription request: Yes Caregiver confirmed with patient/requestor that no other refills are due, in the near future, with this provider at this time: Yes The last office visit in the department: 07/28/24 Does the patient have a future office [...] two times a day for 30 days. Edelmira Baugh LPN November 12, 2024 11:51 AM [facility] 11-09-2024 Telephone encount er Note Patients (Thien Worley) drops off FMLA form for . Form states that they need to be completed by 11/12/24. Patient is aware that provider is out until 11/12/24. Forms at nurse's desk Closed in error [facility] 11-09-2024 Miscellaneous Notes Formattin g of this note might be different from the original. Patients (Thien Worley) drops off FMLA form for . Form states that they need to be completed by 11/12/24. Patient is aware that provider is out until 11/12/24. Forms at nurse's desk Closed in error documented in this encounter [facility] 08-10-2024 Progress note [facility] 08-03-2024 Progress note Formatting of t his note might be different from the original. Send letter about normal pap if she does not have mychart. Jaylan Syed MD [facility] 08-03-2024 Miscellaneous Notes Send letter about normal pap if she does not have mychart. Jaylan Syed MD documented in this encounter [facility] 07-28-2024 Note HNO ID: [id number] Author: MENA VERNON MD Service: ? Author Type: Physician Type: Progress Notes Filed: 07/28/2024 13:04 Note Text: VIRTUAL VISIT PROGRESS NOTE This is a virtual visit using [employer] Zoom Video Visit. It required patient-provider interaction for the medical decision making as documented below. I have communicated my name and active licensure. The patient's identity and physical location were verified at the time of this visit. Either the patient or their legal quality assurance representative has been informed of the risks and [...] is scheduled to follow up with a fish roe technician, Dr. Mcfarland, on August 10. During her hospitalization, Liudmila experienced abdominal pain, which has since resolved. She recalls a similar episode in October, during which she was diagnosed with two gallstones at [facility]. She did not experience any pain after that episode and believes she may have passed the stones. Liudmila was kept NPO during her recent hospitalization and expresses frustration with the [id number] instructions regarding her diet. She was eventually allowed to have liquids and was discharged after two days. Dr. Mcfarland advised her that he did not believe her symptoms were related to her gallbladder and recommended against cholecystectomy. Since her discharge, Liudmila has felt well and has not experienced any further abdominal pain. She was asked to return for repeat labs, which showed some improvement but still some abnormalities. She has not had any further testing since July 12. Liudmila also discusses her interest in bariatric surgery, specifically the gastric sleeve, as a "hard reset" for her weight management. She has been referred to a bariatric specialist by her SMALL PARTS ASSEMBLER, Dr. Syed, but has not yet pursued [...] SALPINGECTOMY Bilateral 11/09/2021 Laparoscopic B/L Salpingectomy at [facility]-Dr. Syed TONSILLECTOMY PRIMARY/SECONDARY FAMILY HISTORY Problem [...] eyes as needed (more content not included)... [facility] 07-23-2024 Miscellaneous Notes Lvm for pt to c/b and schedule new pt appt with Dr. Grimes for Interested in wt loss and possible surgery per referral request from Dr. Syed. documented in this encounter [facility] 07-23-2024 Telephone encounter Note Lvm for pt to c/b and schedule new pt appt with Dr. Grimes for Interested in wt loss and possible surgery per referral request from Dr. Syed. [facility] 07-21-2024 Note HNO ID: [id number] Author: JAYLAN SYED MD Service: ? Author [...] wasn't her gallbladder. . 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 As applicable, any other physician, advance practice provider, medical student, or other health professional student that will be observing or involved in the sensitive examination for educational or training purposes was discussed with the Patient or Authorized Software Support Specialist. The Patient or Authorized Software Support Specialist has agreed to proceed with the sensitive examination. (Sensitive examination includes inspection and/or palpation of the breasts, pelvis, prostate and anorectal regions). EXAM: BP 134/88 Ht 5' 3" (1.60m) Wt 215 lb (97.5kg) LMP 07/16/2024 [...] external genitalia normal, normal Bartholin's glands, urethra, Laurie's glands, no vulvar lesions, no cervical lesions, [...] Desires wt management referal Jaylan Syed MD [facility] 07-21-2024 History of Presen t illness Narrative Liudmila is a 38 year old who presents for an annual gynecologic exam with complaints, GI issues. Had a hospitalization for abd. pain and dx w/ acute hepatitis as some type. Saw . Friend. Not sure what to do now, was told it wasn't her gallbladder. . 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 As applicable, any other physician, advance practice provider, medical student, or other health professional student that will be observing or involved in the sensitive examination for educational or training purposes was discussed with the Patient or Authorized Software Support Specialist. The Patient or Authorized Software Support Specialist has agreed to proceed with the sensitive examination. (Sensitive examination includes inspection and/or palpation of the breasts, pelvis, prostate and anorectal regions). EXAM: BP 134/88 Ht 5' 3" (1.60m) Wt 215 lb (97.5kg) LMP 07/16/2024 [...] external genitalia normal, normal Bartholin's glands, urethra, Laurie's glands, no vulvar lesions, no cervical lesions, [...] Jaylan Syed MD documented in this encounter [facility] 07-05-2024 Consult note [facility] 07-05-2024 Discharge summary [facility] 07-05-2024 Note [facility] Medical Records Department [address] [place] [address] Discharge Summary 07/05/24 1333 MR#: [id number] Acct: [id number] Name: LIUDMILA WORLEY Rep #: [id number] : 1985 38 From: Tristen Harrison DO PCP: Dr. Mena Vernon MD Status:DIS [id number] Prov[facility] Date of Admission: 07/04/24 Date of Discharge: 07/05/24 Primary Care Physician: Dr. Mena Vernon MD Consultations 07/04/24 10:59 Consult: Gastroenterology Routine Consulting Provider: [facility] Reason for Consult: acute cholecysitis EMERGENT [...] is a 38-year-old female who presented to [facility] ED on 07/04/2024 with RUQ abdominal pain. [...] fluid for ex (more content not included)... [facility] 07-05-2024 Consult note [facility] 07-05-2024 Consult note Note Date/Time July 05, 2024 1:05pm [facility] Medical Records Department [address] [place] [address] Consultation - Surgical 07/05/24 0836 MR#: [id number] Acct: [id number] Name: LIUDMILA WORLEY Rep #:[id number] : 1985 38 From: Veronica Austin MD PCP: Dr. Mena Vernon MD Status:AD M IN Location: DE3 MB657-3 Assessment & Plan Assessment/Plan (1) Cholelithiasis: (2) [...] be covering tomorrow. Veronica Austin M.D. Pager: [phone] [facility] [address] [place] [address], [facility], [address] [place] [address] Office: [phone] HPI Consult Data Date of Consult: 07/05/24 HPI Narrative HPI Narrative: LIUDMILA WROLEY, is a 38 F who presents due [...] well with the AST and ALT in [id number] the rest of the liver functions were [...] remained mildly elevated at 191. [facility] Medical History Wears glasses Depression [...] Clarity Clear, Urine pH 7.0, Ur Specific Westbrook 1.010, Urine Protein 30 H, Urine Glucose [...] Neut % (Auto) 60.3, Lymph % (Auto) 25.2,Wells % (Auto) 9.9, Eos % (Auto) 3.5, [...] sonographic evidence of acute cholecystitis. [facility] Chest X-Ray 07/04/24 09:26 IMPRESSION: No Acute Findings. Reading Location[facility] Ab[facility]/Pelvis CT 07/05/24 06:53 IMPRESSION: Nondistended gallbladder with appearance of edema, gallbladder fossa fluid for example coronal 49 concerning for possible cholecystitis, clinically correlate. No evidence of biliary ductal dilation. Small amount of left lower quadrant and pelvic free fluid. Reading Location: [facility] Charges/Coding Visit Charges Inpatient E&M: 72088 Init Hosp L3 07/05/24 1305 <Electronically signed by Veronica Austin MD> Cosigner Signature (if applicable): CC: Dr. Mena Vernon MD~ Signed [facility] Work Phone: 1(679) 329-777104-28-2025 Radiology Diagnostic study note [facility] Imaging Services [address] [place] [address] Abdomen/Pelvis W IV Cont ONLY MR#: [id number] Acct: [id number] Name: LIUDMILA WORLEY Rep #: [id number] : 1985 F 38 From: Lucien Souza MD PCP: Dr. Mena Vernon MD Status: AD M IN Study:Abdomen/Pelvis W IV Cont ONLY Date of E xam: 07/05/24 Exam# [id number] Ordering Dr: Julissa Mcfarland DO PROCEDURE: ABDOMEN/PELVIS [...] quadrant and pelvic free fluid. Reading Location: [facility] CC: Dr. Mena Vernon MD; Sergio Friend, DO ~ Shank Sorter: Signed [facility]04-27-2025 History and physical note Author Juan Hdez [facility] Note Date/Time July 04, 2024 11: 35am [facility] Medical Records Department [address] [place] [address] H&P Exam - Hospitalist 07/04/24 1011 MR#: [id number] Acct: [id number] Name: LIUDMILA WORLEY Rep #:[id number] : 1985 38 From: Juan Valenzuela PCP: Dr. Mena Vernon MD Status:AD M IN Location: DE3 KC140-0 HPI - General General Date of Admission: [...] pain October 2023 and she went to [facility] where she had ultrasound. She was told that she has a gallbladder stone and probably she has elevated transaminases as per Dr. Austin at that time. I tried to log into [employer] to check it but could not. She had right upper quadrant sonogram in ED shows cholelithiasis without features of acute cholecystitis. ED physician consulted and she wanted to admit under medicine with GI consult. [facility] Medical History Wears glasses Depression [...] 79.3 H, Lymph % (Auto) 12.7 L, Wells % (Auto) 6.9, Eos % (Auto) 0.4, [...] Clarity Clear, Urine pH 7.0, Ur Specific Westbrook 1.010, Urine Protein 30 H, Urine Glucose [...] sonographic evidence of acute cholecystitis. [facility] Chest X-Ray 07/04/24 09:26 IMPRESSION: No Acute Findings. Reading Location[facility] Assessment & Plan Assessment/Plan (1) Acute cholecystitis with acute cholangitis: PLAN: Plan This 38-year-old female is being admitted for right upper quadrant colicky pain for 1. Acute cholecystitis with cholelithiasis: Patient is being admitted to [facility] floor. IV fluid. Pain control. Lab evaluation shows normal WBC count,ALT 352 AST 594 elevated. ALP 135. Total bilirubin normal. Lipase normal. Right upper quadrant sonogram shows cholelithiasis with normal GB wall, no pericholecystic fluid. Clinically it seems patient has cholecystitis with biliary colic, Sherwood sign positive and elevated transaminases. ED physician consulted surgeon and wanted GI to see for therefore fish roe technician consulted. I do not think antibiotic is [...] shock if needed Total time spent in amjg-sh-kvpp encounter in discussion of advanced directive 17 minutes. Laboratory Results 07/04/24 06:36: WBC 7.6, RBC 4.65, Hgb 11.9 L, Hct 36.0 L, MCV 77.4 L, MCH 25.6 L, MCHC 33.1, RDW Std Deviation 44.5 H, RDW Coeff of María 15.9 H, Plt Count 312, MPV 10.0, Immature Gran % (Auto) 0.400, Neut % (Auto) 79.3 H, Lymph % (Auto) 12.7 L, Wells % (Auto) 6.9, Eos % (Auto) 0.4, [...] Clarity Clear, Urine pH 7.0, Ur Specific Westbrook 1.010, Urine Protein 30 H, Urine Glucose [...] of acute cholecystitis. Reading Location: [place] [address] Chest X-Ray 07/04/24 09:26 IMPRESSION: No Acute Findings. Reading Location: [facility] Charges/Coding Visit Charges Inpatient E&M: 37792 Init Hosp L3 Procedures Hospitalists Procedures: 78357 Advncd Care Plan 30 Min 07/04/24 1135 <Electronically signed by Juan Hdez MD> Cosigner Signature (if applicable): CC: Dr. Mena Vernon MD; Dr. Juan Hdez MD~ Signed [facility] Work Phone: 1(709) 236-990304-27-2025 Discharge summary Author Harshil Nguyenrus [facility] Note Date/Time July 04, 2024 10: 44am [facility] Medical Records Department [address] [place] [address] Emergency Department Summary 07/04/24 MR#: [id number] Acct: [id number] Name: LIUDMILA WORLEY Rep #:[id number] : 1985 38 From: Harshil Garcia PCP: Dr. Mena Vernon MD Status:AD M IN Location: MS3 HV462-[address] Gavin Alford DO on [...] flare October of last year diagnosed at [place]. She is told to follow-up with her PCP she has not had any issues until yesterday evening she ate nodule cheese for lunch nothing for dinner. I spoke with on-call surgeon Dr. Austin, reviewed her imagings and labs along with labs from [place]. Reported her AST was 100 at that [...] of Present Illness Chief Complaint: Abd Pain [facility] Medical History ADHD Alcohol use Anxiety Depression Former smoker Hx of vaginal delivery Hypertension Migraine headache Wears glasses Home Medications ?Medication ?Instructions ?Recorded ?Last Taken ?Type dextroamphetamine-amphetamine 30 30 mg PO BID 11/08/21 Unknown History mg tablet (Adderall) multivitamin 1 tab PO DAILY 11/08/21 Unkn own History ibuprofen 600 mg tablet 600 mg PO Q6H PRN Pain 10 da ys #30 09/02/22 Unknown Rx TABLETS doxycycline monohydrate 100 mg [...] History obtained from others: none Consults: none [facility] Narrative: The patient was initially hemodynamically stable, [...] final disposition This note was generated with Dragon dictation software. It may contain incorrectwords, spelling, [...] 79.3 H Lymph % (Auto) 12.7 L Wells % (Auto) 6.9 Eos % (Auto) 0.4 [...] MD [Primary Care Provider] - Print Language: Mozambican What to do if you have Problems For any increased pain, shortness of breath, bleeding, nausea or vomiting, chestpain, or any unexpected problems, contact your Primary Care Provider. Call [facility] ([phone]) or report to the closest Emergency Room. Call 911 if necessary. 07/04/24 0707 <Electronically signed by Harshil Sanches DO> Cosigner Signature (if applicable): CC: Dr. Mena Vernon MD ~ Signed [facility] Work Phone: 1(664) 662-149204-27-2025 Evaluation note* Diagnosis Onset Date Resolution Status Admit Date Acute cholecystitis with acu te cholangitis acute July 04, 2024 10:12am Cholelithiasis acute June 10:12am Elevated LFTs acute July 04, 2024 10:12am [facility] Work Phone: 1(953) 814-205004-27-2025 Evaluation note* Diagnosis Onset Date Resolution Status Admit Date Elevated LFTs acute July 04, 2024 10:12am Acute cholecystitis with acu te cholangitis resolved July 04, 2024 10:12am Cholelithiasis inactive June 10:12am [facility] Work Phone: 1(718) 508-693904-27-2025 Evaluation note* Diagnosis Onset Date Resolution Status Admit Date Elevated LFTs acute July 04, 2024 10:12am Acute cholecystitis with acu te cholangitis resolved July 04, 2024 10:12am Cholelithiasis inactive June 10:12am Elevated LFTs acute August 10, 025 9:06am [facility] Work Phone: 1(269) 330-616104-27-2025 History and physical note [facility] Medical Records Department [address] [place] [address] H&P Exam - Hospitalist 07/04/24 1011 MR#: [id number] Acct: [id number] Name: LIUDMILA WORLEY Rep #:[id number] : 1985 38 From: Juan Valenzuela PCP: Dr. Mena Vernon MD Status:AD M IN Location: DE3 XL335-1 HPI - General General Date of Admission: [...] pain October 2023 and she went to [facility] where she had ultrasound. She was toldthat she has a gallbladder stone and probably she has elevated transaminases as per Dr. Austin atthat time. I tried to log into [employer] to check it but could not. She had right upper quadrant sonogram in ED shows cholelithiasis without features of acute cholecystitis. ED physician consulted and she wanted to admit under medicine with GI consult. [facility] Medical History Wears glasses Depression [...] 79.3 H, Lymph % (Auto) 12.7 L, Wells % (Auto) 6.9, Eos % (Auto) 0.4, [...] Clarity Clear, Urine pH 7.0, Ur Specific Westbrook 1.010, Urine Protein 30 H, Urine Glucose [...] sonographic evidence of acute cholecystitis. Reading Location: [facility] Chest X-Ray 07/04/24 09:26 IMPRESSION: No Acute Findings. Reading Location: [facility] Assessment & Plan Assessment/Plan (1) Acute cholecystitis with acute cholangitis: PLAN: Plan This 38-year-old female is being admitted for right upper quadrant colicky pain for 1. Acute cholecystitis with cholelithiasis: Patient is being admitted to [facility] floor. IV fluid. Pain control. Lab evaluation shows normal WBC count,ALT 352 AST 594 elevated. ALP 135. Total bilirubin normal. Lipase normal. Right upper quadrant sonogram shows cholelithiasis with normal GB wall, no pericholecystic fluid. Clinically it seems patient has cholecystitis with biliary colic, Sherwood signpositive and elevated transaminases. ED physician consulted surgeon and wanted GI to see for therefore fish roe technician consulted. I do not think antibiotic is [...] shock if needed Total time spent in khxa-xd-trmq encounter in discussion of advanced directive 17 minutes. Laboratory Results 07/04/24 06:36: WBC 7.6, RBC 4.65, Hgb 11.9 L, Hct 36.0 L, MCV 77.4 L, MCH 25.6 L, MCHC 33.1, RDW Std Deviation 44.5 H, RDW Coeff of María 15.9 H, Plt Count 312, MPV 10.0, Immature Gran % (Auto) 0.400,Neut % (Auto) 79.3 H, Lymph % (Auto) 12.7 L, Wells % (Auto) 6.9, Eos % (Auto) 0.4, [...] Clarity Clear, Urine pH 7.0, Ur Specific Westbrook 1.010, Urine Protein 30 H, Urine Glucose [...] of acute cholecystitis. Reading Location: [place] [address] Chest X-Ray 07/04/24 09:26 IMPRESSION: No Acute Findings. Reading Location[facility] Charges/Coding Visit Charges Inpatient E&M: 92485 Init Hosp L3 Procedures Hospitalists Procedures: 42534 Advncd Care Plan 30 Min 07/04/24 1135 Cosigner Signature (if applicable): CC: Dr. Mena Vernon MD; Dr. Juan Hdez MD~ Signed [facility]04-27-2025 Discharge summary [facility] Medical Records Department [address] [place] [address] Emergency Department Summary 07/04/24 MR#: [id number] Acct: [id number] Name: LIUDMILA WORLEY Rep #:[id number] : 1985 38 From: Harshil Garcia PCP: Dr. Mena Vernon MD Status:AD M IN [facility] Gavin Alford DO on [...] flare October of last year diagnosed at [place]. She is told to follow-up with her PCP she has not had any issues until yesterday evening she ate nodule cheese for lunch nothing for dinner. I spoke with on-call surgeon Dr. Austin, reviewed her imagings and labs along with labs from [place]. Reported her AST was 100 at that time. She notes gallstones and normal common bile duct however she recommended starting her on Zosyn admission to medicine to get GI involved for possible need for ERCP first before her cholecystectomy. I will speak with hospitalist service. 07/04/24 0929 Cosigner Signature (if applicable): cc: Dr. Mena Vrenon MD ~* Signed HPI History of Present Illness Chief Complaint: [facility] Medical History ADHD Alcohol use [...] Oxygen Delivery Method Room Air Room Air [facility] Narrative Medical decision making narrative: HISTORY OF [...] History obtained from others: none Consults: none [facility] Narrative: The patient was initially hemodynamically stable, [...] final disposition This note was generated with [employer] dictation software. It may contain incorrectwords, spelling, [...] 79.3 H Lymph % (Auto) 12.7 L Wells % (Auto) 6.9 Eos % (Auto) 0.4 [...] MD [Primary Care Provider] - Print Language: Mozambican What to do if you have Problems For any increased pain, shortness of breath, bleeding, nausea or vomiting, chestpain, or any unexpected problems, contact your Primary Care Provider. Call [facility] ([phone]) or report tothe closest Emergency Room. Call 911 if necessary. 07/04/24 0707 Cosigner Signature (if applicable): CC: Dr. Mena Vernon MD ~ Signed [facility]04-27-2025 Radiology Diagnostic study note [facility] Imaging Services [address] [place], [place] [id number] Chest 1 View (Portable) MR#: [id number] Acct: [id number] Name: LIUDMILA WORLEY Rep #: [id number] : 1985 F 38 From: Lamar Patel MD PCP: Dr. Mena Vernon MD Status: RE G ER Study:Chest 1 View (Portable) Date of Exam: 07/04/24 Exam# [id number] Ordering Dr: Gavin Alford DO PROCEDURE: CHEST 1 VIEW (PORTABLE) 07/04/2024 REASON FOR EXAM: PREOP TECHNIQUE: Frontal view of the chest. COMPARISON: None FINDINGS: Hardware: None Heart: Cardiac and mediastinal contours are stable. Lungs: The lungs are clear. Bones: The bones are unremarkable. Other: RAD/Chest 1 View (Portable) IMPRESSION: No Acute Findings. Reading Location[facility] CC: Dr. Mena Vernon MD; Dr. Gavin Alford DO ~ Shank Sorter: Signed [facility]04-27-2025 Radiology Diagnostic study note [facility] Imaging Services [address] [place] [address] Gallbladder MR#: [id number] Acct: [id number] Name: LIUDMILA WORLEY Rep #: [id number] : 1985 F 38 From: Maynor Lopez MD PCP: Dr. Mena Vernon MD Status: RE G ER Study:Gallbladder Date of Exam: 07/04/24 Exam# [id number] Ordering Dr: Brenda Sanches DO PROCEDURE: GALLBLADDER [...] sonographic evidence of acute cholecystitis. Reading Location[facility] CC: Dr. Mena Vernon MD; Dr. Harshil Sanches, DO ~ Shank Sorter: Signed [facility]03-18-2025 Telephone encounter Note* Telephone Encounter - Leyla Hussein LPN - 05/25/2024 8:49 AM EDT Fax rec'd from [facility]. Approval for adderall 30mg from 05/24/24 to 05/23/26. Faxed to pharmacy and pt notified via my chart. [facility]03-18-2025 Miscellaneous Notes* Telephone Encounter - Leyla Hussein LPN - 05/25/2024 8:49 AM EDT Fax rec'd from [facility]. Approval for adderall 30mg from 05/24/24 to 05/23/26. Faxed to pharmacy and pt notified via my chart. * Telephone Encounter - Leora Gambino MA - 05/24/2024 11:13 AM EDT Called [facility] [phone] and did not receive chart notes. [facility] rep advised should re-submitted again for Name Brand : Adderall 30 mg BID and faxed chart notes Auth ID [id number] * Telephone Encounter - Leyla Hussein LPN [...] was from covermymeds submission. Leora Gambino MA * Telephone Encounter - Ashley Sprague RN - 05/18/2024 10:36 AM EDT Pt states it is for the brand name Adderall to get the CHAZ [address]. [address] Vernon knows about this. * Telephone Encounter - Leyla Hussein LPN - 05/18/2024 8:18 AM EDT Fax rec'd from [facility] noting no PA is needed for dextroamphetamine/amphetamine. Please advise member enrolled in managed care plan to take their prescriptions to an in network pharmacy to have filled. Pt notified via my chart. * Telephone Encounter - Leora Gambino MA - 05/17/2024 1:34 PM EDT Tried to complete through covermymeds but would not process. Called [facility] at [phone] and completed with rep for adderall 30 [...] Adderall Provider: Dr Vernon Insurance Company Name: [facility] [employer] [facility] [employer] Phone number: [phone] Patient ID number: [id number] Pharmacy Name: [facility] Telephone number: [phone] documented in this [facility] Telephone encounter Note * Telephone Encounter - Leora Gambino MA - 05/24/2024 11:13 AM EDT Called [facility] [phone] and did not receive chart notes. [facility] meyer advised should re-submitted again for Name Brand : Adderall 30 mg BID and faxed chart notes Auth ID [id number] [facility]03-17-2025 Telephone encounter Note* Telephone Encounter - Leora Gambino MA - 05/24/2024 10:44 AM EDT Called [facility] [phone] and did not receive chart notes. [facility] meyer advised should re-submitted again for Name Brand : Adderall 30 mg BID and faxed chart notes Auth ID [id number] [facility]03-17-2025 Miscellaneous Notes* Telephone Encounter - Leora Gambino MA - 05/24/2024 10:44 AM EDT Called [facility] [phone] and did not receive chart notes. [facility] meyer advised should re-submitted again for Name Brand : Adderall 30 mg BID and faxed chart notes Auth ID [id number] documented in this encounterC[facility]03-[facility]-2025 Telephone encounter Note * Telephone Encounter - Leyla Hussein LPN - 05/19/2024 4:12 PM EDT Denial rec'd. They note they need notes noting pt has positive effects with current treatment. Office notes faxed for review. [facility]03-11-2025 Telephone encounter Note* Telephone Encounter - Leora Gambino MA - 05/18/2024 11:04 AM EDT Called and spoke to [facility] PA is still in process that was done over the phone for Brand name ADDERALL 30 mg BID. Fax received yesterday was from [facility] submission. Leora Gambino MA [facility]03-11-2025 Telephone encounter Note* Telephone Encounter - Ashley Sprague RN - 05/18/2024 10:36 AM EDT Pt states it is for the brand name Adderall to get the CHAZ [address]. She [address] Vernon knows about this. [facility]03-11-2025 Telephone encounter Note* Telephone Encounter - Leyla Hussein LPN - 05/18/2024 8:18 AM EDT Fax rec'd from [facility] noting no PA is needed for dextroamphetamine/amphetamine. Please advise member enrolled in managed care plan to take their prescriptions to an in network pharmacy to have filled. Pt notified via my chart. [facility]03-10-2025 Telephone encounter Note* Telephone Encounter - Leora Gambino MA - 05/17/2024 1:34 PM EDT Tried to complete through covermymeds but would not process. Called [facility] at [phone] and completed with rep for adderall 30 mg BID. Advised will notify office once decision made through fax Leora Gambino MA [facility]03-10-2025 Telephone encounter Note* Telephone Encounter - [...] Adderall Provider: Dr Vernon Insurance Company Name: [employer] Phone number: [phone] Patient ID number: [id number] Pharmacy Name: [facility] Telephone number: [phone] [facility]02-10-2025 NoteHNO ID: [id number] Author: MENA VERNON MD Service: ? Author Type: Physician Type: Progress Notes Filed: 04/19/2024 09:45 Note Text: This note was created using [employer]. Subjective Liudmila Worley is a 38 year [...] trying to make healthier choices, such as Emirati yogurt and fruit parfaits. She also reports [...] Height as of 10/22/22: 160 cm (5' 3"). Weight as of this encounter: 98 kg [...] to alleviate pruritus. - Suggested trial of qhmg-vni-xtqfgsk lidocaine patches for localized sympt (more content not included)...[facility]02-10-2025 History of Present illness Narrative* Mena Vernon MD - 04/19/2024 9:13 AM EST Images from the original note were not included. This note was created using Deenty. Subjective Liudmila Worley is a 38 year [...] trying to make healthier choices, such as Emirati yogurt andfruit parfaits. She also reports experiencing [...] Height as of 10/22/22: 160 cm (5' 3"). Weight as of this encounter: 98 kg [...] to alleviate pruritus. - Suggested trial of oiwr-odx-oyfpybq lidocaine patches for localized symptom relief. # Encounter for long-term current use of medication (Z79.899) - Reviewed and updated medication list. - [...] noted. Mena Vernon MD documented in this encounterC[facility]02-[facility] Instructions* Patient Instructions* Aliza Mcnamara APRN.GREEN CHAIN MARKER - 04/14/2024 8:01 PM EST Rest, increase [...] breath, inability to swallow. documented in this encounterC[facility]02-05-2025 NoteHNO ID: [id number] Author: ALIZA MCNAMARA APRN.CNP Service: ? Author Type: Nurse Practitioner Type: Progress Notes Filed: 04/14/2024 20:08 Note Text: Subjective The history is provided by the patient. No side panel padder was used. HPI Liudmila Worley is a [...] have confirmed and edited as necessary, the [facility] Review of Systems Constitutional: Negative for [...] Acute cough - ICD9: 786.2, ICD10: R05.1 ePyman shrestha Diagnosis and treatment plan were discussed and questions were answered to the patient's satisfaction. Pt acknowledged understanding of concepts and follow up plan. Specific signs and symptoms that would indicate the need for higher level of care were discussed in detail warranting prompt ER evaluation. Aliza Mcnamara APRN.[facility]02-05-2025 History of Present illness Narrative* Aliza Mcnamara APRN.GREEN CHAIN MARKER - 04/14/2024 7:48 PM EST Subjective The history is provided by the patient. No side panel padder was used. HPI Liudmila Worley is a [...] have confirmed and edited as necessary, the [facility] Review of Systems Constitutional: Negative for [...] cough - ICD9: 786.2, ICD10: R05.1 Peyman perlbee Diagnosis and treatment plan were discussed and questions were answered to the patient's satisfaction. Pt acknowledged understanding of concepts and follow up plan. Specific signs and symptoms that would indicate the need for higher level of care were discussed indetail warranting prompt ER evaluation. Aliza Mcnamara APRN.GREEN CHAIN MARKER documented in this encounterCleveland [facility] Telephone encounter Note * Telephone Encounter [...] Syed LPN February 02, 2024 1:22 PM [facility]11-25-2024 Miscellaneous Notes* Telephone Encounter - Fariha [...] 02, 2024 1:22 PM documented in this encounterC[facility] Telephone encounter Note * Telephone Encounter - Leyla Hussein LPN - 12/03/2023 11:34 AM EDT Covermymeds PA response is Information regarding your request Electronic prior authorization not supported as no PA required for NDC and for member's age. Called the pharmacy and reviewed. Pharmacist says they have to call insurance every month to get anoverride. This was previously approved in [employer] until 04/26/24. [facility]09-25-2024 Miscellaneous Notes* Telephone Encounter - Leyla Hussein LPN - 12/03/2023 11:34 AM EDT Covermymeds PA response is Information regarding your request Electronic prior authorization not supported as no PA required for NDC and for member's age. Called the pharmacy and reviewed. Pharmacist says they have to call insurance every month to get anoverride. This was previously approved in [employer] until 04/26/24. * Telephone Encounter - Leyla Hussein LPN - 12/03/2023 11:25 AM EDT Unable to complete electronically. Will try on covermymeds. * Telephone Encounter - Aimee Ludwig RN - 12/03/2023 10:47 AM EDT PRIOR AUTHORIZATION Medication for Prior Authorization: Adderall 30 mg (Brand Name) Insurance Company: [employer] Patient insurance ID number: [id number] Aimee Ludwig RN documented in this encounterC[facility] Telephone encounter Note * Telephone Encounter - Leyla Husseni LPN - 12/03/2023 11:25 AM EDT Unable to complete electronically. Will try on covermymeds. [facility]09-25-2024 Telephone encounter Note* Telephone Encounter - Aimee Ludwig RN - 12/03/2023 10:47 AM EDT PRIOR AUTHORIZATION Medication for Prior Authorization: Adderall 30 mg (Brand Name) Insurance Company: [employer] Patient insurance ID number: [id number] Aimee Ludwig RN [facility]08-30-2024 Note ORIGINAL EXAMINATION: LIMITED ABDOMINAL ULTRASOUND11/07/2023 [...] Date: 11/07/2023 10:46:03 AM [facility] Discharge instructions Patient Education 11/05/2023 18:56:15 [...] foods again, start with small amounts of rfei-uk-veamfp, low- fat foods. These include apple sauce, [...] increase stomach acid. Don't use aspirin or ovgl-qcq-ieohjmo pain and fever medicines, if possible. This includes nonsteroidal anti-inflammatory drugs (NSAIDs). Lose excess weight. Finish eating at least 2 hours before you go to bed or lie down. Raise the head of your bed. 6980-8680 [employer]. [address] [place] [address], [place] [address]. All rights reserved. This information is not intended as a substitute for professional medical care. Always follow yourhealthcare professional's instructions. Follow Up Care 11/05/2023 17:11:21 With:MENA VERNON MD Address: [address] [place] [id number]- When:2-4 days [facility] 08-28-2024 Note Discharge Instructions Thank you for allowing [facility] to assist you with your healthcare needs. The following is importantdischarge information regarding your hospital visit. Diagnosis from Today's Visit Abdominal pain What to Do Next Instructions from Your Care Team No qualifying data available. Post Acute Orders No qualifying data available. You Need to Schedule the Following Appointments Follow Up with MENA VERNON MD When:Within 2-4 days Where:[address] [place] [address]- Allergies No Known Medication Allergies Medications Please [...] foods again, start with small amounts of ndsn-xh-juunik, low- fat foods. These include apple sauce, [...] increase stomach acid. Don't use aspirin or xyfb-hhz-iijvaej pain and fever medicines, if possible. This includes nonsteroidal anti-inflammatory drugs (NSAIDs). Lose excess weight. Finish eating at least 2 hours before you go to bed or lie down. Raise the head of your bed. 2681-2443 [employer]. [address] [place] [address], [place] [address]. All rights reserved. This information is not intended as a substitute for professional medical care. Always follow yourhealthcare professional's instructions. Additional Information VACCINATE! IT SAVES LIVES! Members of the community who have not yet received the COVID-19 vaccine and would like to receive it can visit one of [facility] vaccine clinics. There are many vaccine clinic locations within the [facility]. For locations and available times, please visit www.[email or web address].[place].gov/. It is important to note that some COVID mobile vaccine clinics are held outdoors and may be canceled in rainy or stormy conditions. To learn more about pediatric vaccinations (ages 5-11), we invite you to visit the [facility] webpage. https://www.[employer].org/pages/6648-Hnqju-Ckrxkwwizsg-Cfhwaqronw-Tykvh-Iop stions.htmlTo learn more about the COVID-19 vaccine, we invite you to visit the CDC website for a list of frequently asked questions. https://www.cdc.gov/coronavirus/2019-ncov/vaccines/faq.html [facility] Patient Portal Access Instructions: Stay connected with your healthcare team and access your personal medical information anytime with the [facility] Patient Portal. If you would like a full copy of your medical records please contact the [facility] Medical Records Department Friday through Friday between 8a.m. and 4:30p.m. Please follow the directions below to access the portal: 1.Access the email account you provided upon registration to the hospital.2.Look for an invitation email from [facility].3.Open the email and access the invitation link: Accept Invitation to [facility]4.Fill in the required lux to create your account. Sign into [email or web address] with your username and password that you [...] you will allow to register on the [facility] Patient Portal for access to your information. You can also access the [facility] Patient Portal on the [employer]. Simply click on "Health Records" under "HealthData" and then click on the [employer] logo. HOW TO SAFELY DISPOSE OF PRESCRIPTION [...] Call your local pharmacy or go to [email or web address]/[email or web address] to find one close to you.3.Make use of household items: Use cat litter or old coffee grounds to dispose medications if other options arenot available. Mix your drugs with these household products, seal them in an airtight container andthrow it into the garbage. Call [facility]: [phone] to be sure your drugs can be [...] been reviewed and explained to me and I,LIUDMILA WORLEYtand my current condition and have read and understand these discharge instructions. I have received a written copy of the plan/instructions. If I have questions, I am aware that I should contact my doctor. Patient/Software Support Specialist Signature: Date/Time: Relationship to Patient: Witness Name/Signature: Date/Time: [facility]08-28-2024 History of Present illness Narrative * Joanie Pak APRN.DELMA - 11/05/2023 4:45 PM EDT Patient [...] to a different ER. documented in this encounterC[facility]07-26-2024 Instructions* Patient Instructions* Mena Vernon MD - 10/03/2023 5:58 PM EDT Iron --if take supplement, then Mon, Wed, Fri. Iron glycinate, gluconate, fumarate or succinate better tolerated to sulfate. Okay lower doses of iron around 20 range. Okay to take E-yodago-tyttel documented in this encounterCleveland [facility]07-26-2024 History of Present illness Narrative* Mena Vernon MD - 10/03/2023 5:25 PM EDT This note was created using [employer]. Subjective Liudmila Worley is a 38 year [...] Height as of 10/22/22: 160 cm (5' 3"). Weight as of this encounter: 98.9 kg [...] Iron supplement as discussed. Follow up with MANAGER INTELLIGENCE as needed 3. Primary hypertension I10 Stay [...] sleep. Mena Vernon MD documented in this encounterCleveland [facility]07-26-2024 Telephone encounter Note * Telephone Encounter [...] Burgos MA October 03, 2023 2:48 PM [facility]07-26-2024 Miscellaneous Notes* Telephone Encounter - Deacon [...] 03, 2023 2:48 PM documented in this encounterCleveland Clinic [facility]06-26-2024 Telephone encounter Note * Telephone Encounter [...] times a day for 30 days. DERECK Alejanrde September 03, 2023 1:11 PM [facility]06-26-2024 Miscellaneous Notes* Telephone Encounter - Delisa [...] 03, 2023 1:11 PM documented in this encounterCleveland Clinic [facility]06-23-2024 History of Present illness Narrative* Madhu Ames APRN.GREEN CHAIN MARKER - 08/31/2023 9:13 AM EDT This note was created using [employer]. Subjective Liudmila Worley is a 38 year [...] or worsen - STREP A MOLECULAR (POC) Madhu Ames APRN.CNP documented in this encounterCleveland [facility]05-29-2024 Telephone encounter Note * Telephone Encounter - Karol Vergara APRN.CNP - 08/06/2023 12:41 PM EDT Addressed in another encounter [facility] Work Phone: 1(190) 172-677305-29-2024 Telephone encounter Note* Telephone Encounter - Karol Vergara APRN.CNP - 08/06/2023 12:41 PM EDT PDMP website checked and validated. All prescriptions have been APPROPRIATELY filled. No suspiciousactivity was identified. 08/06/2023 by Karol Vergara APRN.CNP [facility]05-29-2024 Miscellaneous Notes* Telephone Encounter - Karol [...] you. Carmen Rooney MA. documented in this encounterCleveland [facility]05-29-2024 Miscellaneous Notes* Telephone Encounter - Karol [...] you. Carmen Rooney MA. documented in this encounterC[facility]05-29-2024 Telephone encounter Note * Telephone Encounter - Tereza Tobar RN - 08/06/2023 9:22 AM EDT Patient has been out of medication for 2 days. [facility]05-28-2024 Telephone encounter Note* Telephone Encounter - [...] care: 10/03/2023 Please advise. Thank you. Carmen Roonye MA. [facility]05-28-2024 Telephone encounter Note* Telephone Encounter - [...] Please advise. Thank you. Carmen Rooney MA. [facility]04-26-2024 Telephone encounter Note* Telephone Encounter - Deepti Redd APRN.CNS - 07/04/2023 9:06 AM EDT ok [facility]04-26-2024 Miscellaneous Notes* Telephone Encounter - Deepti Redd APRN.CNS - 07/04/2023 9:06 AM EDT ok * Telephone Encounter - Tereza Tobar RN - 07/04/2023 8:54 AM EDT Patient reports the adderall rx sent to [facility] yesterday was not generic, it was name brand. Reports the name brand is $850 The generic is $50 Reports she learned [facility] did not renew their contract with her insurance so adderall is no longer covered at [facility], but they are the only ones that have it. [facility] does not have it. Patient is willingto pay the $50 this month. Patient took her last pill yesterday. Pended for generic adderall. documented in this encounterCleveland [facility]04-26-2024 Telephone encounter Note * Telephone Encounter - Tereza Tobar RN - 07/04/2023 8:54 AM EDT Patient reports the adderall rx sent to [facility] yesterday was not generic, it was name brand. Reports the name brand is $850 The generic is $50 Reports she learned [facility] did not renew their contract with her insurance so adderall is no longer covered at [facility], but they are the only ones that have it. [facility] does not have it. Patient is willingto pay the $50 this month. Patient took her last pill yesterday. Pended for generic adderall. [facility]04-25-2024 Telephone encounter Note* Telephone Encounter - Deepti Redd APRN.CNS - 07/03/2023 4:17 PM EDT ok [facility]04-25-2024 Miscellaneous Notes* Telephone Encounter - Deepti Redd APRN.CNS - 07/03/2023 4:17 PM EDT ok * Telephone Encounter - Leanne Woods RN - 07/03/2023 2:27 PM EDT Patient calling to say [facility] does not have brand name Adderall in stock. She is requesting script for generic Adderall be sent to [facility] retail pharmacy and she will pay out of pocket. Leanne Woods RN documented in this encounterCleveland Clinic [facility]04-25-2024 Telephone encounter Note * Telephone Encounter - Leanne Woods RN - 07/03/2023 2:27 PM EDT Patient calling to say [facility] pharmacy does not have brand name Adderall in stock. She is requesting script for generic Adderall be sent to [facility] retail pharmacy and she will pay out of pocket. Leanne Woods RN [facility]04-25-2024 Telephone encounter Note* Telephone Encounter - Deepti Redd APRN.CNS - 07/03/2023 10:58 AM EDT ok [facility]04-25-2024 Miscellaneous Notes* Telephone Encounter - Deepti Redd APRN.CNS - 07/03/2023 10:58 AM EDT ok * Telephone Encounter - Kelly Bush LPN - 07/03/2023 9:32 AM EDT Pt called back and she wants request for Adderall to be sent to [facility] and the Brand name is what she wants not generic. Reason for switching pharmacy [facility] did not renew contract with the insurance pt has. No call back, only if a problem KAPIL: 04/22/23 NOV: 10/03/23 Kelly Bush LPN * Telephone Encounter - Veronica Thacker RN - 07/03/2023 8:48 AM EDT Pt calling and states she has to pay out of pocket this month for her Adderall so she needs the generic sent in to [facility] pharmacy. Call pt only if problem. Last OV 04/22/23 Next OV 10/03/23 documented in this encounterCleveland [facility]04-25-2024 Telephone encounter Note * Telephone Encounter - Kelly Bush LPN - 07/03/2023 9:32 AM EDT Pt called back and she wants request for Adderall to be sent to [facility] and the Brand name is what she wants not generic. Reason for switching pharmacy [facility] did not renew contract with the insurance pt has. No call back, only if a problem KAPIL: 04/22/23 NOV: 10/03/23 Kelly Bush LPN [facility]04-25-2024 Telephone encounter Note* Telephone Encounter - Veronica Thacker RN - 07/03/2023 8:48 AM EDT Pt calling and states she has to pay out of pocket this month for her Adderall so she needs the generic sent in to [facility] pharmacy. Call pt only if problem. Last OV 04/22/23 Next OV 10/03/23 [facility]04-12-2024 Miscellaneous Notes* Telephone Encounter - Lissa [...] sent. Lissa Neumann RN documented in this encounterCleveland [facility]03-21-2024 History of Present illness Narrative* Shima Barney PA-C - 05/29/2023 4:52 PM EDT This note was created using [employer]. Subjective Liudmila Worley is a 37 year [...] Denies sick contacts. She did try some tsos-ogj-oknkkpv cough and cold medicines which did help [...] SALPINGECTOMY Bilateral 11/09/2021 Laparoscopic B/L Salpingectomy at [facility]-Dr. Syed TONSILLECTOMY PRIMARY/SECONDARY <AGE 12 FAMILY [...] FRONTAL/LAT Shima Barney PA-C documented in this encounterCleveland [facility]03-21-2024 History of Present illness Narrative* Cheryl Polanco, RT(R) - 05/29/2023 4:50 PM EDT Radiology [...] PATIENT PRESENTS WITH AN IMPLANTABLE OR ATTACHED STRATEGIC ANALYST: No RADIOLOGY DEPARTMENT: General X-ray: Exam(s) Completed: Chest X-Ray PERIPHERAL IV DATA: Not applicable SIGNED BY: Cheryl Polanco RT(R) May 29, 2023 4:47 PM documented in this encounterCleveland Clinic [facility]02-20-2024 Miscellaneous Notes* Telephone Encounter - Leyla Hussein LPN - 04/29/2023 12:44 PM EST PA number is [id number] * Telephone Encounter - Leyla Hussein LPN - 04/29/2023 12:42 PM EST Pt notified. * Telephone Encounter - Leyal Hussein LPN - 04/29/2023 12:19 PM EST Rec'd approval from [facility]. This was approved from 04/29/23 to 04/26/24. Pharmacy notified. They say it's still not called [facility]. They have this corrected and they will notify the pharmacy. This call reference number is [id number]. * Telephone Encounter - Leyla Hussein LPN [...] 04/28/2023 3:33 PM EST PA completed via [facility] (Cisse: [id number]) Adderall 30MG tablets Status: Sent To Plan [...] Prior Auth. Please advise. documented in this encounterCleveland Clinic [facility]02-13-2024 History of Present illness Narrative* Mena Vernon MD - 04/22/2023 8:30 AM EST This note was created using NoteWriter. Subjective Liudmila Worley is a 37 year [...] Height as of 10/22/22: 160 cm (5' 3"). Weight as of this encounter: 98 kg [...] the date of the service which included uomy-ah-roav patient care, completing clinical documentation, obtaining and/or reviewing separately obtained history, performing a medically appropriate examination, counseling and educating the patient/family/caregiver, and ordering medications, tests, or procedures. Mena Vernon MD documented in this encounterCleveland Clinic [facility]11-17-2023 Miscellaneous Notes* Telephone Encounter - Tereza [...] Adderall 30 mg twice daily. Wanting to slate picker rx before the weekend. States [facility] Pharm is only open a couple [...] review. Evita Madrigal RN documented in this encounterCleveland Clinic [facility] Hospital11-16-2023 Miscellaneous Notes* Telephone Encounter - Evita Madrigal RN - 01/23/2023 10:37 AM EST Patient calls to check on status of request of returning back to Adderall 30 mg twice daily and discontinuing the Adderall XR dose. Notified patient it was pending provider review. Changed request to TE. Evita Madrigal RN documented in this encounterCleveland Clinic [facility]11-03-2023 Miscellaneous Notes* Telephone Encounter - Adilene [...] feeling worse,she needs to go to ER. FLY Richardson * Telephone Encounter - Samara Sow MA [...] Left contact information in documented in this encounterCleveland Clinic [facility]09-08-2023 Miscellaneous Notes* Telephone Encounter - Mena [...] advise. Fariha Syed LPN documented in this encounterCleveland Clinic [facility] Hospital2023 Miscellaneous Notes* Telephone Encounter - Fariha [...] days. 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 Syed TONSILLECTOMY PRIMARY/SECONDARY <AGE 12 FAMILY [...] medication updated:Yes EXAM: BP 148/90 Ht 5' 3" (1.60m) Wt 220 lb (99.8kg) LMP 10/08/2022 [...] external genitalia normal, normal Bartholin's glands, urethra, Laurie's glands, no vulvar lesions, no cervical lesions, [...] this. Jaylan Syed MD documented in this encounterCleveland Clinic [facility]05-08-2023 Miscellaneous Notes* Telephone Encounter - Deepti Redd APRN.INFORMATION BROKER - 07/15/2022 4:40 PM EDT Sent in by Dr Syed * Telephone Encounter - Ashley Sprague RN - 07/15/2022 9:15 AM EDT Pt called in and reports she is having vaginal burning and itching. She is asking if the provider would call in Fluconazole to [facility] pharmacy for her. I let Pt [...] you. Ashley Sprague RN documented in this encounterCleveland Clinic [facility]05-08-2023 Miscellaneous Notes* Telephone Encounter - Robyn Perez RN - 07/15/2022 2:04 PM EDT Patient calling c/o yeast infection symptoms of vaginal itching/irritation. Asking for diflucan refill. Only call back with problems. Robyn Perez RN documented in this encounterCleveland Clinic [facility]05-04-2023 Miscellaneous Notes* Telephone Encounter - Leora Gambino Ma - 07/11/2022 9:06 AM EDT [employer] will not cover name brand lexapro and not willing to approve PA since not clinical evidence that generic ineffective. Spoke to patient who is aware and fine with generic being sent. Pleasesend rx Leora Gambino Ma documented in this encounterCleveland Clinic [facility]05-03-2023 History of Present illness Narrative* Mena Vernon MD - 07/10/2022 10:40 AM EDT VIRTUAL VISIT PROGRESS NOTE This is a virtual visit using Sarta video visit. It required patient-provider interaction for themedical decision making as documented below. I have communicated my name and active licensure. The patient's identity and physical location wereverified at the time of this visit. Either the patient or their legal quality assurance representative has been informed of the risks and [...] SALPINGECTOMY Bilateral 11/09/20[facility] TONSILLECTOMY PRIMARY/SECONDARY <AGE 12 FAMILY HISTORY [...] ophthalmology. Mena Vernon MD documented in this encounterCleveland Clinic [facility]04-15-[address] Barney [facility] June 22, 2022 5:13pm Note Date/Time June 22, 2022 5:0 9pm [facility] Medical Records Department [address] [place] [address] Emergency Department Summary 06/22/22 MR#: [id number] Acct: [id number] Name: LIUDMILA WORLEY Rep #:[id number] : 1985 36 From: Johnny Barney MD PCP: Dr. Mena Vernon MD Status:MD E ER Location: ED HPI History of [...] your Primary Care Provider. Call [facility] ([phone]) or report to the closest Emergency Room. Call 911 if necessary. 06/22/221712 <Electronically signed by Johnny Barney MD> Cosigner Signature (if applicable): CC: Dr. Mena Vernon MD ~ Signed [facility] Work Phone: [phone]) 148-685902-16-2023 Miscellaneous Notes* Telephone Encounter - Leyla Hussein LPN - 04/25/2022 9:30 AM EST Rec'd fax noting this was already approved until 03/18/23. * Telephone Encounter - Leyla Hussein LPN - 04/23/2022 2:49 PM EST LIUDMILA WORLEY (Cisse: [id number]) - [id number] Adderall 30MG tablets Status: Sent to Plan Created: April 20, 2022 Sent: April 23, 2022 documented in this encounterCleveland Clinic [facility]02-01-2023 History of Present illness Narrative* Mena Vernon MD - 04/10/2022 11:05 AM EST This note was created using [employer]. Subjective Liudmila Worley is a 36 year [...] Height as of 10/23/21: 160 cm (5' 3"). Weight as of this encounter: 94.3 kg [...] management. Mena Vernon MD documented in this encounterCleveland Clinic [facility] Hospital01-24-2023 History of Present illness Narrative* MIO Meyer - 04/02/2022 8:14 PM EST This note was created using [employer]. Subjective Liudmila Worley is a 36 year [...] SALPINGECTOMY Bilateral 11/09/2021 Laparoscopic B/L Salpingectomy at [facility]-Dr. Syed TONSILLECTOMY PRIMARY/SECONDARY <AGE 12 ALLERGIES [...] ER evaluation. MIO Meyer documented in this encounterCleveland Clinic [facility] Hospital01-12-2023 Miscellaneous Notes* Telephone Encounter - Leora Gambino Ma - 03/21/2022 9:52 AM EST Spoke to [facility] josef who advised stating need PA. Called [facility] and they advised name brand is approved appears issue on pharmacy end when running RX are not using correct code. Spoke to [facility] pharmacy again and josef stated needing CHAZ-9 so ran and went through. PA is approved and patient notified. Ref# [id number] Leora Gambino Ma * Telephone Encounter - Leyla Hussein LPN - 03/20/2022 10:52 AM EST Rec'd approval from [facility] for dextromphetamine/amthetamine 03/19/22 to 03/18/23. But this PA is for ADDERALL. Brand not generic. Will wait for that PA to be reviewed. * Telephone Encounter - Leora Gambino Ma - 03/19/2022 3:13 PM EST Prior Authorization has been completed online at [employer] for Adderall, will await response. [id number] Please keep encounter open until final decision [...] stock at this time. documented in this encounterC[facility] History of Present illness Narrative* Kamron Sharif - 02/15/2022 8:30 AM EST Patient offered a medical physics teacher for sensitive exam. Pt declined documented in [facility] encounterBrown [facility] History and physical note* Venita Nair, MECHANICAL OPERATOR-GREEN CHAIN MARKER - 02/15/2022 8:00 AM EST Date of [...] y.o. premenopausal female who presents to the [facility] on 02/15/2022 for evaluation [...] Laterality Date TUBAL LIGATION Bilateral 2021 TONSILLECTOMY Breast/MANAGER INTELLIGENCE History: Social History Social History Narrative MANAGER INTELLIGENCE: No LMP recorded.. 01/2022 Last PAP: 2021 [...] History Administered Date(s) Administered COVID-19 vaccine, mRNA, zePASS, 0.3 ML 11/29/2020, 02/07/2021 Review of Systems: [...] F (36.8 C) Ht 1.321 m (4' 4") Wt 95.3 kg (210lb 1.6 oz) BMI [...] LIMITED UNILATERAL RIGHT, 02/15/2022 09:49 AM (accession [id number]), 02/15/2022 09:56 AM (accession [id number]) CLINICAL INDICATIONS: Palpable abnormality 10:00 right breast [...] capsule PIOTR Paul, AOCNP Breast Surgical Oncology [facility] [place] [facility] P: [phone] [facility]12-09-[facility] History and physical note* PIOTR Cox [...] y.o. premenopausal female who presents to the [facility] on 02/15/2022 for evaluation [...] Laterality Date TUBAL LIGATION Bilateral 2021 TONSILLECTOMY Breast/MANAGER INTELLIGENCE History: Social History Social History Narrative MANAGER INTELLIGENCE: No LMP recorded.. 01/2022 Last PAP: 2021 [...] F (36.8 C) Ht 1.321 m (4' 4") Wt 95.3 kg (210lb 1.6 oz) BMI [...] LIMITED UNILATERAL RIGHT, 02/15/2022 09:49 AM (accession [id number]), 02/15/2022 09:56 AM (accession [id number]) CLINICAL INDICATIONS: Palpable abnormality 10:00 right breast [...] capsule PIOTR Paul, AOCNP Breast Surgical Oncology [facility] [place] [facility] P: [phone] documented in this encounterOSU [facility] History of Present illness Narrative* Alicia Adams RN - 02/15/2022 8:00 AM EST Liudmila Worley was offered and declined a Medical Donations Attendant for this exam/procedure/test 02/15/2022. documented in this encounterBrown Memorial Hospital11-21-2022 Miscellaneous Notes* Telephone Encounter - Aleshia Brito RN - 01/28/2022 3:19 PM EST Patient notified. States that she wishes to go to [facility]. Orders faxed. Alehsia Brito RN * Telephone Encounter - Kayla Ferrer MD - 01/28/2022 2:58 PM EST Yes, I told her at appt today that the wait was probably 4-5 weeks out but that I did not feel anything needed done emergently. I am ok with her waiting. If she desires sooner appt she can go to [facility]. * Telephone Encounter - Aleshia Brito RN - 01/28/2022 2:28 PM EST See below. Patient seen in office today. * Telephone Encounter - Aleshia Rousseau - 01/28/2022 2:19 PM EST Pt called concerned about mammogram appt that is scheduled in the soonest appt available on 03/06/22. She would like to know if that is okay or should she be more concerned. [place] location is the soonest available anywhere within the system and she is on the waitlist. documented in this encounterCleveland Clinic [facility]11-21-2022 Miscellaneous Notes* Telephone Encounter - Annabelle Bolñaos LPN - 01/28/2022 2:37 PM EST Patient calling asking that [facility] and ultrasound right breast order be faxed to [facility] to [phone]. Printed orders, face sheet and faxed as requested. documented in this encounterCleveland Clinic Fairview [facility]11-21-2022 Instructions* Patient Instructions* Kayla Ferrer MD - 01/28/2022 10:19 AM EST Breast Reconstruction Lobito Ruelas [facility] [phone] [facility] [phone] [facility] [phone] Dr. Robbie Nolen [facility] [phone] Dr. Iron Fernandez [facility] [phone] documented in this encounterCleveland Clinic [facility]11-21-2022 History of Present illness Narrative* Kayla Ferrer MD - 01/28/2022 10:00 AM EST Donations Attendant offered: Patient declines. Liudmila Worley is a [...] L3 SAB0 IAB0 Ectopic0 Multiple0 Live Births3 Scrap Drop Operator History LMP: 10/11/2021 (Exact Date), Having periods Age at Menarche: Age at First : Age at Menopause: Scrap Drop Operator History Comments: Sexual Activity: Yes; Male; bilateral [...] SALPINGECTOMY Bilateral 11/09/2021 Laparoscopic B/L Salpingectomy at [facility]-Dr. Syed TONSILLECTOMY PRIMARY/SECONDARY <AGE 14 FAMILY [...] which included preparing to see the patient, [id number] patient care, completing clinical documentation, obtaining and/or reviewing separately obtained history, performing a medically appropriate examination, counseling and educating the pat ient/family/caregiver, and ordering medications, tests, or procedures Medical Decision Making: Medical Decision Making Level: 1 - N/A Kayla Bustillo MD documented in this encounterCleveland Clinic [facility] Hospital11-08-2022 Miscellaneous Notes* Telephone Encounter - Wendy Obando Ma - 01/15/2022 11:19 AM EST PER LDT: Please make follow up appointments; AM in April any day F2F and VV next Left message for patient to call office documented in this encounterCleveland Clinic [facility]view Hospital10-24-2022 Miscellaneous Notes* Telephone Encounter - Mena [...] MENA VERNON MD * Telephone Encounter - Annabelle Bolaños LPN - 12/31/2021 4:49 PM EDT [place] pharmacist from [facility] calling patient is requesting [...] you. Annabelle Bolaños LPN documented in this encounterCleveland Clinic Fairview Hospital10-24-2022 Miscellaneous Notes* Telephone Encounter - Edelmira [...] prescription has been sent. documented in this encounterCleveland Clinic Fairview Hospital09-24-2022 Miscellaneous Notes* Telephone Encounter - Ashley [...] Okayed increased dose * Telephone Encounter - Aslhey Sprague RN - 12/01/2021 9:20 AM EDT Pt called in asking about if this medication was filled. Provider out of office, sending to [facility] to do on Friday. * Telephone Encounter - Marcia Pace Pss - 11/30/2021 8:55 AM EDT Patient Liudmila called checking if prescription-lisdexamfetamine (VYVANSE) 40 mg capsule, can be increased to 50 mg. Please advise, . documented in this encounterCleveland Clinic Fairview Hospital09-06-2022 History of Present illness Narrative* Jaylan Syed MD - 11/13/2021 12:39 PM EDT Laparoscopic bilateral salpingectomy at [facility] on 11/09/2021 without complication. Jaylan Syed MD documented in this encounterCleveland Clinic Fairview Hospital08-24-2022 History of Present illness Narrative* Mena Vernon MD - 10/31/2021 5:44 PM EDT VIRTUAL VISIT PROGRESS NOTE This is a virtual visit using Sarta video visit. It required patient-provider interaction for themedical decision making as documented below. Liudmila Worley is a 36 year old female seen for Medication check. 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 Panic attack first one at store--kids were with her. [place] warm; SOB, heart racing. happened before appointment [...] which included preparing to see the patient, [id number] patient care, completing clinical documentation, counseling and educating the patient/family/caregiver, and ordering medications, tests, or procedures Mena Vernon MD documented in this encounterCleveland Clinic [facility] Hospital08-16-2022 History and physical note * Jaylan [...] allergies Jaylan Syed M.D. documented in this encounterCleveland Clinic Fairview Hospital08-11-2022 Miscellaneous Notes* Telephone Encounter - Leyla [...] VERNON MD * Telephone Encounter - Brianna Connelly - 10/12/2021 11:04 AM EDT Liudmila Worley is calling Mena Vernon MD today requesting an early refill of her Adderall medication. Patient accidentally dropped her medicine in the sink. She was only able to save two pills. Pharmacy said she is not due for refill until 10/19 and would need call from PCP to allow early fill. Please advise and return her call. [facility] documented in this encounterCleveland Clinic [facility]08-03-2022 Instructions* Patient Instructions* Anna Nieto Ma [...] to contact the office. documented in this encounterCleveland Clinic [facility]view Hospital08-03-2022 History of Present illness Narrative* Jaylan [...] contraception Jaylan Syed MD documented in this encounterCleveland Clinic [facility]view Hospital07-13-2022 History of Present illness Narrative* Jaylan [...] L3 SAB0 IAB0 Ectopic0 Multiple0 Live Births3 Scrap Drop Operator History LMP: 09/13/2021 (Exact Date), Having periods Age at Menarche: Age at First : Age at Menopause: Scrap Drop Operator History Comments: Sexual Activity: Yes; Male Contraception: [...] medication updated:Yes EXAM: BP 148/96 Ht 5' 3" (1.60m) Wt 214 lb (97.1kg) LMP 09/13/2021 [...] external genitalia normal, normal Bartholin's glands, urethra, Laurie's glands, no vulvar lesions, no cervical lesions, [...] signed Jaylan Syed MD documented in this encounterCleveland Clinic [facility] Hospital06-09-2022 Miscellaneous Notes* Telephone Encounter - Leyla [...] titrating up the Vyvanse? documented in this encounterCleveland Clinic [facility] Hospital06-02-2022 Miscellaneous Notes* Telephone Encounter - Leyla [...] message on my chart. documented in this encounterCleveland Clinic [facility]view Hospital05-24-2022 History of Present illness Narrative* Mena Vernon MD - 07/31/2021 11:02 AM EDT This note was created using [employer]. Subjective Liudmila Worley is a 35 year [...] about 4:30. Melencrot not effective. [facility] at [place] [facility]--this was fine. Issues with shortages [...] Height as of 10/12/18: 160 cm (5' 3"). Weight as of 12/06/20: 93 kg (205 [...] which included preparing to see the patient, [id number] patient care, completing clinical documentation, obtaining and/or reviewingseparately obtained history, performing a medically appropriate examination, counseling and educating the patient/family/caregiver and ordering medications, tests, or procedures. Mena Vernon MD documented in this encounterCleveland Clinic [facility] Hospital09-04-2019 History of Past illness Narrative* Problem [...] of this encounter (statuses as of 08/09/2021) [facility] of Past illness Narrative* Problem [...] of this encounter (statuses as of 08/16/2021) [facility] of Past illness Narrative* Problem [...] of this encounter (statuses as of 09/19/2021) [facility] of Past illness Narrative* Problem [...] of this encounter (statuses as of 09/28/2021) [facility] of Past illness Narrative* Problem [...] of this encounter (statuses as of 10/10/2021) [facility] of Past illness Narrative* Problem [...] of this encounter (statuses as of 10/10/2021) [facility] of Past illness Narrative* Problem [...] of this encounter (statuses as of 10/18/2021) [facility] of Past illness Narrative* Problem [...] of this encounter (statuses as of 10/23/2021) [facility] of Past illness Narrative* Problem [...] of this encounter (statuses as of 10/31/2021) [facility] of Past illness Narrative* Problem [...] of this encounter (statuses as of 11/13/2021) [facility] of Past illness Narrative* Problem [...] of this encounter (statuses as of 12/01/2021) [facility] of Past illness Narrative* Problem [...] of this encounter (statuses as of 12/31/2021) [facility] of Past illness Narrative* Problem [...] of this encounter (statuses as of 01/01/2022) [facility] Narrative* Problem [...] of this encounter (statuses as of 01/28/2022) [facility] Narrative* Problem [...] of this encounter (statuses as of 01/28/2022) [facility] Narrative* Problem [...] of this encounter (statuses as of 03/15/2022) [facility] Narrative* Problem [...] of this encounter (statuses as of 03/21/2022) [facility] Narrative* Problem [...] of this encounter (statuses as of 04/03/2022) [facility] Narrative* Problem [...] of this encounter (statuses as of 04/25/2022) [facility] Narrative* Problem [...] of this encounter (statuses as of 05/10/2022) [facility] Narrative* Problem [...] of this encounter (statuses as of 07/11/2022) [facility] Narrative* Problem [...] of this encounter (statuses as of 07/11/2022) [facility] Narrative* Problem [...] of this encounter (statuses as of 07/16/2022) [facility] Narrative* Problem [...] of this encounter (statuses as of 07/16/2022) [facility] Narrative* Problem [...] of this encounter (statuses as of 07/17/2022) [facility] Narrative* Problem [...] of this encounter (statuses as of 10/22/2022) [facility] Narrative* Problem [...] of this encounter (statuses as of 10/24/2022) [facility] Narrative* Problem [...] of this encounter (statuses as of 11/18/2022) [facility] Narrative* Problem [...] of this encounter (statuses as of 01/11/2023) [facility] Narrative* Problem [...] of this encounter (statuses as of 01/23/2023) [facility] Narrative* Problem [...] of this encounter (statuses as of 01/24/2023) [facility] Narrative* Problem [...] of this encounter (statuses as of 04/29/2023) [facility] Narrative* Problem [...] to her satisfaction and consent was signed. Jalyan Syed MD Elevated blood pressure affe cting [...] of this encounter (statuses as of 05/19/2023) [facility] Narrative* Problem [...] of this encounter (statuses as of 05/30/2023) [facility] Narrative* Problem [...] of this encounter (statuses as of 06/20/2023) [facility] HospitalConsult note Author Julianne Adams [facility] Note Date/Time July 05, 2024 2:5 4pm [facility] Medical Records Department [address] [place] [address] Counseling Note - Pharmacy 07/05/24 1454 MR#: [id number] Acct: [id number] Name: LIUDMILA WORLEY Rep #:[id number] : 1985 38 From: Julianne Adams PCP: Dr. Mena Vernon MD Status:AD M IN Location: [facility] WH618-[facility] has performed discharge medication reconciliation for this patient. The patient's discharge medication list was reviewed for discrepancies and discrepancies were resolved. Medications at Discharge Home Medications dextroamphetamine-amphetamine 30 mg tablet (Adderall) 30 mg PO 0800,1200 11/08/21 multivitamin 1 tab PO DAILY 11/08/21 lisinopril 5 mg tablet 5 mg PO DAILY 07/04/24 07/05/24 8548 <Electronically signed by Julianne Adams> Date _ Julianne Hays Signature (if applicable): Date CC: ~ Signed [facility] Work Phone: Discharge summary Author Harshil Sanches [facility] Note Date/Time July 04, 2024 10: 44am [facility] Medical Records Department [address] [place] [address] Emergency Department Summary 07/04/24 MR#: [id number] Acct: [id number] Name: LIUDMILA WORLEY Rep #:[id number] : 1985 38 From: Harshil Garcia PCP: Dr. Mena Vernon MD Status:AD M IN Location: DE3 [id number] Gavin Alford DO on [...] flare October of last year diagnosed at [place]. She is told to follow-up with her PCP she has not had any issues until yesterday evening she ate nodule cheese for lunch nothing for dinner. I spoke with on-call surgeon Dr. Austin, reviewed her imagings and labs along with labs from [place]. Reported her AST was 100 at that [...] Oxygen Delivery Method Room Air Room Air [facility] Narrative Medical decision making narrative: HISTORY OF [...] History obtained from others: none Consults: none [facility] Narrative: The patient was initially hemodynamically stable, [...] final disposition This note was generated with [employer] dictation software. It may contain incorrectwords, spelling, [...] 79.3 H Lymph % (Auto) 12.7 L Wells % (Auto) 6.9 Eos % (Auto) 0.4 [...] MD [Primary Care Provider] - Print Language: Mozambican What to do if you have Problems For any increased pain, shortness of breath, bleeding, nausea or vomiting, chestpain, or any unexpected problems, contact your Primary Care Provider. Call [facility] ([phone]) or report to the closest Emergency Room. Call 911 if necessary. 07/04/24 0707 <Electronically signed by Harshil Sanches DO> Cosigner Signature (if applicable): CC: Dr. Mena Vernon MD ~ Signed [facility] Work Phone: Discharge summary Author Tristen Harrison [facility] Note Date/Time July 05, 2024 2:2 5pm [facility] Medical Records Department [address] [place] [address] Instructions for Home/Discharge Instructions 07/05/24 1332 MR#: [id number] Acct: [id number] Name: LIUDMILA WORLEY Rep #:[id number] : 1985 38 From: Tristen mcclain DO [...] Liver Profile (Routine) Timeframe: 5 Days Facility: [facility] - Location: Laboratory Ordered By: Dr. Tristen Harrison Referrals / Follow Up: Mena Vernon MD [Primary Care Provider] - Sergio Mcfarland DO [Med Staff - Active Staff] - Disposition Disposition (needs filled in before D/C Order can be placed): Home, Self Care 07/05/24 1424<Electronically signed by Tirsten Harrison DO>Tristen Harrison DO CC: Dr. Mena Vernon MD; Dr. Juan Hdez MD; Dr. Veronica Austin MD ~ Signed [facility] Work Phone: Evaluation + Plan note No data available for this section [facility] Evaluation noteNo assessment information available [facility] Work Phone: Evaluation note* Diagnosis Attention deficit hyperactivity disorder (ADHD), unspecified ADHD type [facility] Diagnosis Encounter for gynecological examination with abnormal finding- Primary Routine gynecological examination Menorrhagia with regular cycle Excessive or frequent menstruation documented in this encounter [facility]* Diagnosis Attention deficit hyperactivity disorder (ADHD), unspecified ADHD type- Primary Tremor Abnormal involuntary movements Eyelid twitch Abnormal involuntary movements Acne vulgaris Other acne Class 2 obesity due to excess calories with body mass index (BMI) of 37.0 to 37.9 in adult, unspecified whether serious comorbidity present [facility]* Diagnosis Menorrhagia with regular cycle- Primary Excessive or frequent menstruation [facility]* Diagnosis Abnormal uterine bleeding (AUB)- Primary [facility]* Diagnosis Attention deficit hyperactivity disorder (ADHD), unspecified ADHD type documented [facility] this encounter [facility]* Diagnosis Encounter for sterilization- Primary Sterilization Preoperative examination Preoperative examination, unspecified [facility]* Diagnosis Attention deficit hyperactivity disorder (ADHD), unspecified ADHD type- Primary Anxiety and depression Dysthymic disorder Obesity due to excess calories without serious comorbidity, unspecified classification documented in this encounter [facility]* Diagnosis Onset Date Resolution Status Sterilization acute [facility] Work Phone: Evaluation note* Diagnosis Encounter for sterilization- Primary Sterilization [facility] this encounter [facility]* Diagnosis Attention deficit hyperactivity disorder (ADHD), unspecified ADHD type [facility]* Diagnosis Attention deficit hyperactivity disorder (ADHD), unspecified ADHD type- Primary [facility]* Diagnosis Breast pain- Primary Mastodynia Large breasts Hypertrophy of breast documented in this encounter [facility] note* Diagnosis Breast pain- Primary Mastodynia Mass of right breast, unspecified quadrant Breast pain Mastodynia Mass of right breast, unspecified quadrant Breast pain Mastodynia Mass of right breast, unspecified quadrant documented in this encounter [facility] note* Diagnosis Breast pain Mastodynia Mass of right breast, unspecified quadrant documented in this encounter [facility] note* Diagnosis Breast pain Mastodynia Mass of right breast, unspecified quadrant documented in this encounter [facility] note* Diagnosis URI, acute- Primary Acute upper respiratory infections of unspecified site Nausea Nausea alone documented in this encounter [facility] note* Diagnosis Attention deficit hyperactivity disorder (ADHD), unspecified ADHD type- Primary Encounter for long-term current use of medication Encounter for immunization Need for other specified prophylactic vaccination against single bacterial disease documented in this encounter [facility] note* Diagnosis Attention deficit hyperactivity disorder (ADHD), unspecified ADHD type- Primary Anxiety and depression Dysthymic disorder Dry eyes Tear film insufficiency, unspecified documented in this encounter [facility] note* Diagnosis Feared complaint without diagnosis Person with feared complaint in whom no diagnosis was made documented in this encounter [facility] note* Diagnosis Encounter for gynecological examination with abnormal finding- Primary Routine gynecological examination Hirsutism Acne vulgaris Other acne Unintended weight gain Abnormal weight gain Class 2 obesity due to excess calories without serious comorbidity with body mass index (BMI) of 38.0 to 38.9 in adult documented in this encounter [facility] note* Diagnosis Attention deficit hyperactivity disorder (ADHD), unspecified ADHD type documented in this encounter [facility] note* Diagnosis Attention deficit hyperactivity disorder (ADHD), unspecified ADHD type documented in this encounter [facility] note* Diagnosis Attention deficit hyperactivity disorder (ADHD), unspecified ADHD type- Primary Primary hypertension Unspecified essential hypertension Hypochromic microcytic anemia Iron deficiency anemia, unspecified Class 2 obesity due to excess calories with body mass index (BMI) of 38.0 to 38.9 in adult, unspecified whether serious comorbidity present Lipid screening Screening for lipoid disorders Encounter for long-term current use of medication documented in this encounter [facility] note* Diagnosis Viral URI- Primary Acute upper respiratory infections of unspecified site documented in this encounter [facility] note* Diagnosis Attention deficit hyperactivity disorder (ADHD), unspecified ADHD type documented in this encounter [facility] note* Diagnosis Attention deficit hyperactivity disorder (ADHD), unspecified ADHD type documented in this encounter [facility] note* Diagnosis Attention deficit hyperactivity disorder (ADHD), unspecified ADHD type- Primary documented in this encounter [facility] note* Diagnosis Attention deficit hyperactivity disorder (ADHD), unspecified ADHD type documented in this encounter [facility] note* Diagnosis Sore throat- Primary Acute pharyngitis documented in this encounter [facility] note* Diagnosis Attention deficit hyperactivity disorder (ADHD), unspecified ADHD type documented in this encounter [facility] note* Diagnosis Right upper quadrant abdominal pain- Primary Abdominal pain, right upper quadrant Flank pain Abdominal pain, unspecified site documented in this encounter [facility] note* Diagnosis Attention deficit hyperactivity disorder (ADHD), unspecified ADHD type- Primary Iron deficiency Iron deficiency anemia, unspecified Primary hypertension Unspecified essential hypertension Class 2 obesity due to excess calories with body mass index (BMI) of 38.0 to 38.9 in adult, unspecified whether serious comorbidity present documented in this encounter [facility] note* Diagnosis Acute cough documented in this encounter [facility] note* Diagnosis Attention deficit hyperactivity disorder (ADHD), unspecified ADHD type documented in this encounter [facility] note* Diagnosis Viral URI- Primary Acute upper respiratory infections of unspecified site Acute cough documented in this encounter [facility] note* Diagnosis Attention deficit hyperactivity disorder (ADHD), unspecified ADHD type- Primary Essential (primary) hypertension Unspecified essential hypertension Iron deficiency anemia, unspecified iron deficiency anemia type Radiculopathy, thoracic region Thoracic or lumbosacral neuritis or radiculitis, unspecified Encounter for long-term current use of medication Obesity, Class II, BMI 35-39.9 Obesity, unspecified documented in this encounter [facility] note* Diagnosis Encounter for gynecological examination (general) (routine) without abnormal findings- Primary Screening for cervical cancer Screening for malignant neoplasm of the cervix Encounter for screening for human papillomavirus (HPV) Special screening examination for human papillomavirus (HPV) BMI 38.0-38.9,adult Body Mass Index 38.0-38.9, adult [facility] Diagnosis Attention deficit hyperactivity disorder (ADHD), unspecified ADHD type [facility] Additional Instructions 1. Disc continue application of triple antibiotic ointment. 2. If you wish to apply appointment use bacitracin ointment. 3. Take antibiotics until gone 4. If you develop temperature greater than 100 have shaking chills or red streak toward your groin return [facility] the [facility] Work Phone: Hospital Discharge instructions No data available for this section [facility] Instructions* Attachments The following attachments cannot be sent through Care Everywhere. * Breast Health ([facility]) ([place]) * Breast Pain (Mastalgia) ([facility]) ([place]) [facility] No data available for this section [facility] Progress note Author Sergio Mcfarland [facility] Note Date/Time August 10, 2024 9:48a m [facility] [address] [place] [address] OFFICE VISIT Date of Service: 08/10/24 MR#: [id number] Acct: [id number] Name: LIUDMILA WORLEY Rep #: [id number] : 1985 Provider: Sergio Mcfarland DO Age/Sex: 38/F [place] [facility] [place] S[place] Intake Vital Signs 07/05/24 11:05 Height 5 ft 2 in Weight: 218 lb 14.704 oz BMI 40.0 Intake Visit Reasons: Abnormal test results Allergies metformin Adverse Reaction (Verified 07/04/24 11:01) Diarrhea Medications ?Medication ?Instructions ?Recorded ?Confirmed ?Type dextroamphetamine-amphetamine 30 30 mg PO 0800,1200 08/10/24 History mg tablet (Adderall) multivitamin 1 tab PO DAILY 11/08/21 0606/01 History lisinopril 5 mg tablet 5 mg PO DAILY 07/04/2408/10 History PFSH Medical History Wears glasses Depression Anxiety Alcohol use Migraine headache Former smoker Hypertension Hx of vaginal delivery ADHD Surgical History History of tonsillectomy and adenoidectomy Family History no significant family his Social History (Updated 08/10/24 @ 09:23 by Zoey Tang) household members: spouse Smoking Status: Former smoker alcohol intake: current alcohol intake frequency: holidays/special occasions only substance use type: does not use HPI HPI Details: LIUDMILA WORLEY, is a 38 F who presents to the office today for hospital followup. [facility] hospitalization 07.04.24 - 07.06.24 abd pain - GI consulted for acute cholecystitis gall bladder US 07.04.24 Cholelithiasis without sonographic evidence of acute cholecystitis. abd/pelvis CT 07.05.24 Nondistended gallbladder with appearance of edema, gallbladder fossa fluid for example coronal 49 concerning for possible cholecystitis, clinically correlate. No evidence of biliary ductal dilation. Small amount of left lower quadrant and pelvic free fluid. *BGI established 6.3.25 pt reports that she is feeling well overall and denies GI symptoms of concern at this time. Pt reports she is here to review test results and lab work. ROS Const Constitutional: No fatigue, fever(s) or weight change ENT ENT: No difficulty swallowing Gastro GI: No abdominal pain, belching, bloating, change in bowel habits, change in stool character, coffee ground emesis, constipation, cramping, diarrhea, heartburn, difficulty swallowing, feeling full early, excessive flatus, incontinent of stools, Vomiting blood/hematemesis, Blood in stool, loose stools,Black,tarry stools, nausea/dyspepsia, pain with swallowing, vomiting or other Musc Musculoskeletal: No joint pain Skin Skin: No yellowing of the eye or itchy eyes Psych Psychiatric: Positive for anxiety and Positive for depression Endo Endocrine: No fatigue or weight change Aller/Imm Allergy/Immunologic: No itchy eyes Cristian/Lymp Hematologic/Lymphatic: No easy bleeding or easy bruising Exam Const General: cooperative, healthy appearing and comfortable Nutritional Appearance: average body habitus Eyes Sclera: sclerae normal Resp Effort & Inspection: normal respiratory effort Auscultation: Bilateral: Clear to Auscultation Cardio Rate: regular rate Rhythm: regular rhythm GI Inspection: normal to inspection Auscultation: normal bowel sounds Percussion: normal to percussion Palpation: no hepatosplenomegaly Rectal Exam: deferred Assessment and Plan Assessment and Plan (1) Elevated LFTs: Status: Acute Plan: Patient is a 38-year-old female who presented to [facility] ED on 07/04/2024 with RUQ abdominal pain. RUQ abdominal pain with elevated LFTs ?Initially seemed consistent with acute cholecystitis. However, gallbladder [...] is a possibility. Significant lab workup sent. LFT's are improving. Repeat liver enzymes and refer to surgery for cholecystectomy. Orders: Orders CBC W/Diff, Automated Today R79.89 - Other specified abnormal findings of bloodchemistry CRP Today R79.89 - Other specified abnormal findings of blood chemistry Erythrocyte Sed Rate Today R79.89 - Other specified abnormal findings of blood chemistry Comprehensive Metabolic Profil Today R79.89 - Other specified abnormal findingsof blood chemistry Coding Level of Care Code Off vis,est,level 4 Diagnoses Elevated LFTs R79.89 08/10/24 8404 <Electronically signed by Sergio valenzuela DO> Date _ Sergio Marte Signature: Date (if applicable) CC: ~ [facility] [email or web address] Work Phone: Reason for referral (narrative)* Diagnostic Procedure Only (Routine) - Authorized Specialty Diagnoses / Procedures Referred By Contac t Referred To Contact [facility] Diagnoses Menorrhagia with regular cycle Procedures PELVIC US WHI US PELVIC NONOBSTETRIC REAL-TIME IMAGE COMPLETE Jaylan Syed MD [address] [place] [address] [address] Referral ID Status Reason Start Date Expiration Date Visits Requested Visits Authorized [id number] Authorized Auto-Generat ed Referral 09/19/2021 09/19/2022 1 1 * Outpatient Procedure (Routine) - Authorized Specialty Diagnoses / Procedures Referred By Contac t Referred To Contact [facility] Diagnoses Menorrhagia with regular cycle Procedures ENDOMETRIAL BIOPSY ENDOMETRIAL BX W/WO ENDOCERVIX BX W/O DILAT SPX Jaylan Syed MD [address] [place] [address] [address] Referral ID Status Reason Start Date Expiration Date Visits Requested Visits Authorized [id number] Authorized Auto-Generat ed Referral 09/19/2021 09/19/2022 1 1 [facility] for referral (narrative)* Diagnostic Procedure Only (Routine) - Authorized Specialty Diagnoses / Procedures Referred By Contac t Referred To Contact [facility] Diagnoses Breast pain Large breasts Procedures US BREAST LTD RT US BREAST UNI REAL TIME WITH IMAGE LIMITED Kayla Denny MD [address] [place] [address] [facility] [address] [place] [phone] Referral ID Status Reason Start Date Expiration Date Visits Requested Visits Authorized [id number] Authorized Auto-Generat ed Referral 02/27/2023 1 1 * Diagnostic Procedure Only (Routine) - Authorized Specialty Diagnoses / Procedures Referred By Contac t Referred To Contact [facility] Diagnoses Breast pain Large breasts Procedures MATA DIAGNOSTIC BILAT DIAGNOSTIC MAMMOGRAPHY COMPUTER-AIDED DETCJ BI Kayla Denny MD [address] [place] [address] [facility] [address] [place] [address] Referral ID Status Reason Start Date Expiration Date Visits Requested Visits Authorized [id number] Authorized Auto-Generat ed Referral 2 02/27/2023 1 1 [facility] ([facility]arrative)No reason for referral information availableWOhio Valley [facility] Hospital Work Phone: Chief Complaint and Reason [...] 10:12am Cholelithiasis July 04, 2024 10: 12am Chief Complaint Admit Date ACUTE CHOLECYSTITIS July 04, 2024 10: 12am ACUTE CHOLECYSTITIS July 05, 2024 8:3 6am ACUTE CHOLECYSTITIS July 05, 2024 1:3 3pm INT LAB ORDER July 12, 2024 4:47pm Abnormal test results August 10, 2024 9:0 6am INT LABS August 10, 2024 9:47a m Reason for Visit Admit Date Elevated LFTs July 04, 2024 10: 12am Acute cholecystitis with acute cholangit is July 04, 2024 10:12am Cholelithiasis July 04, 2024 10: 12am Elevated LFTs August 10, 2024 9:06a m Advance Directives Advance Directive Response Recorded Date/ Time Advance Directives No April 8:45am Living Will No July 27, 2021 1 2:43pm Power of Equipment Maintenance Supervisor No July 27, 2021 12:43pm Advance Directive Response Recorded Date/ Time Advance Directives No April 8:45am Living Will No November 08 12:23pm Power of Equipment Maintenance Supervisor No November 08, 2021 12:23pm Advance Directive Response Recorded Date/ Time Advance Directives No April 8:45am Living Will No June 22, 2022 4:46pm Power of Equipment Maintenance Supervisor No June 22 4:46pm Advance Directive Response Recorded Date/ Time Do you have a Healthcare Power of Equipment Maintenance Supervisor? No July 04, 2024 6:20am Advance Directives No April 8:45am Advance Directive Response Recorded Date/ Time Do you have a Healthcare Power of Equipment Maintenance Supervisor? No July 04, 2024 11:02am Advance Directives No April 8:45am Reason for Referral Specialty Diagnoses / Procedures Referred By Travis garcia Referred To Contact Diagnoses Breast pain Mass of right breast, unspecified quadrant Procedures US BREAST LIMITED UNILATERAL RIGHT Venita Nair APRN-[employer] [address] [place] [address] Referral ID Status Reason Start Date Expiration Date V isits Requested Visits Authorized [id number] New Request 02/15/2022 03/12/2023 1 1 Specialty Diagnoses / Procedures Referred By Travis t Referred To Contact Diagnoses Breast pain Mass of right breast, unspecified quadrant Procedures MAMMO DIAGNOSTIC WITH MATA BILATERAL Venita Nair APRN-[employer] [address] [place] [address] Referral ID Status Reason Start Date Expiration Date V isits Requested Visits Authorized [id number] New Request 02/15/2022 03/12/2023 1 1 Specialty Diagnoses / Procedures Referred By Contac t Referred To Contact Diagnoses Attention deficit hyperactivity disorder (ADHD), unspecified ADHD type Mena Vernon MD [address] [place] [address] Referral ID Status Reason Start Date Expiration Date Visits Re quested Visits Authorized [id number] Closed 1 1 Referral ID Status Reason Start Date Expiration Date Visits Re quested Visits Authorized [id number] Closed 1 1 Referral ID Status Reason Start Date Expiration Date Visits Re quested Visits Authorized [id number] Closed 1 1 Specialty Diagnoses / Procedures Referred By Contac t Referred To Contact Diagnoses Anxiety and depression Mena Vernon MD [address] [place] [address] Referral ID Status Reason Start Date Expiration Date Visits Re quested Visits Authorized [id number] Closed 1 1 Referral ID Status Reason Start Date Expiration Date V isits Requested Visits Authorized [id number] Authorized 1 1 Referral ID Status Reason Start Date Expiration Date V isits Requested Visits Authorized [id number] Authorized 1 1 Referral ID Status Reason Start Date Expiration Date V isits Requested Visits Authorized [id number] Authorized 1 1 Specialty Diagnoses / Procedures Referred By Contac t Referred To Contact Diagnoses Class 2 obesity due to excess calories without serious comorbidity with body mass index (BMI) of 38.0 to 38.9 in adult Procedures CONSULT TO [facility] WEIGHT [facility]NAG[facility] PROGRAM OFFICE/OUTPATIENT [facility] 60-74 MINUTES Jaylan Syed MD [address] [place] [address] Referral ID Status Reason Start Date Expiration Date Visits Requested Visits Authorized [id number] Authorized PCP Requested Referral Auto-Generate d Referral 10/22/2022 10/22/2023 1 1 Referral ID Status Reason Start Date Expiration Date Visits Re quested Visits Authorized [id number] Closed 1 1 Specialty Diagnoses / Procedures Referred By Contac t Referred To Contact Diagnoses Attention deficit hyperactivity disorder (ADHD), unspecified ADHD type Deepti Redd APRN.INFORMATION [employer]ER [address] [place] [address] Referral ID Status Reason Start Date Expiration Date Visits Re quested Visits Authorized [id number] Closed 1 1 Referral ID Status Reason Start Date Expiration Date Visits Re quested Visits Authorized [id number] Closed 1 1 Referral ID Status Reason Start Date Expiration Date Visits Re quested Visits Authorized [id number] Closed 1 1 Referral ID Status Reason Start Date Expiration Date Visits Re quested Visits Authorized [id number] Closed 1 1 Specialty Diagnoses / Procedures Referred By Contac t Referred To Contact Diagnoses Attention deficit hyperactivity disorder (ADHD), unspecified ADHD type Karol Vergara APRN.[employer] [address] [place] [address] Referral ID Status Reason Start Date Expiration Date Visits Re quested Visits Authorized [id number] Closed 1 1 Referral ID Status Reason Start Date Expiration Date Visits Re quested Visits Authorized [id number] Closed 1 1 Summary Purpose Family History [...] or prosecute any alcohol or drug abuse patient.[facility] the event this information is protected by the Federal Confidentiality of Alcohol and Drug Abuse Patient Records regulations: The Federal rules restrict any use of the information to criminally investigate or prosecute any alcohol or drug abuse patient.[facility] Hospital[facility] the event this information is protected by the Federal Confidentiality of Alcohol and Drug Abuse Patient Records regulations: The Federal rules restrict any use of the information to criminally investigate or prosecute any alcohol or drug abuse patient.[facility] Hospital[facility] the event this information is protected by the Federal Confidentiality of Alcohol and Drug Abuse Patient Records regulations: The Federal rules restrict any use of the information to criminally investigate or prosecute any alcohol or drug abuse patient.[facility] HospitalIn the event this information is protected by the Federal Confidentiality of Alcohol and Drug Abuse Patient Records regulations: The Federal rules restrict any use of the information to criminally investigate or prosecute any alcohol or drug abuse patient.[facility] HospitalIn the event this information is protected by the Federal Confidentiality of Alcohol and Drug Abuse Patient Records regulations: The Federal rules restrict any use of the information to criminally investigate or prosecute any alcohol or drug abuse patient.[facility] HospitalIn the event this information is protected by the Federal Confidentiality of Alcohol and Drug Abuse Patient Records regulations: The Federal rules restrict any use of the information to criminally investigate or prosecute any alcohol or drug abuse patient.[facility] HospitalIn the event this information is protected by the Federal Confidentiality of Alcohol and Drug Abuse Patient Records regulations: The Federal rules restrict any use of the information to criminally investigate or prosecute any alcohol or drug abuse patient.[facility] HospitalIn the event this information is protected by the Federal Confidentiality of Alcohol and Drug Abuse Patient Records regulations: The Federal rules restrict any use of the information to criminally investigate or prosecute any alcohol or drug abuse patient.[facility] HospitalIn the event this information is protected by the Federal Confidentiality of Alcohol and Drug Abuse Patient Records regulations: The Federal rules restrict any use of the information to criminally investigate or prosecute any alcohol or drug abuse patient.[facility] HospitalIn the event this information is protected by the Federal Confidentiality of Alcohol and Drug Abuse Patient Records regulations: The Federal rules restrict any use of the information to criminally investigate or prosecute any alcohol or drug abuse patient.[facility] HospitalIn the event this information is protected by the Federal Confidentiality of Alcohol and Drug Abuse Patient Records regulations: The Federal rules restrict any use of the information to criminally investigate or prosecute any alcohol or drug abuse patient.[facility] HospitalIn the event this information is protected by the Federal Confidentiality of Alcohol and Drug Abuse Patient Records regulations: The Federal rules restrict any use of the information to criminally investigate or prosecute any alcohol or drug abuse patient.[facility] HospitalIn the event this information is protected by the Federal Confidentiality of Alcohol and Drug Abuse Patient Records regulations: The Federal rules restrict any use of the information to criminally investigate or prosecute any alcohol or drug abuse patient.[facility] HospitalIn the event this information is protected by the Federal Confidentiality of Alcohol and Drug Abuse Patient Records regulations: The Federal rules restrict any use of the information to criminally investigate or prosecute any alcohol or drug abuse patient.[facility] HospitalIn the event this information is protected by the Federal Confidentiality of Alcohol and Drug Abuse Patient Records regulations: The Federal rules restrict any use of the information to criminally investigate or prosecute any alcohol or drug abuse patient.[facility] HospitalIn the event this information is protected by the Federal Confidentiality of Alcohol and Drug Abuse Patient Records regulations: The Federal rules restrict any use of the information to criminally investigate or prosecute any alcohol or drug abuse patient.[facility] HospitalIn the event this information is protected by the Federal Confidentiality of Alcohol and Drug Abuse Patient Records regulations: The Federal rules restrict any use of the information to criminally investigate or prosecute any alcohol or drug abuse patient.[facility] HospitalIn the event this information is protected by the Federal Confidentiality of Alcohol and Drug Abuse Patient Records regulations: The Federal rules restrict any use of the information to criminally investigate or prosecute any alcohol or drug abuse patient.[facility] HospitalIn the event this information is protected by the Federal Confidentiality of Alcohol and Drug Abuse Patient Records regulations: The Federal rules restrict any use of the information to criminally investigate or prosecute any alcohol or drug abuse patient.[facility] HospitalIn the event this information is protected by the Federal Confidentiality of Alcohol and Drug Abuse Patient Records regulations: The Federal rules restrict any use of the information to criminally investigate or prosecute any alcohol or drug abuse patient.[facility] HospitalIn the event this information is protected by the Federal Confidentiality of Alcohol and Drug Abuse Patient Records regulations: The Federal rules restrict any use of the information to criminally investigate or prosecute any alcohol or drug abuse patient.[facility] HospitalIn the event this information is protected by the Federal Confidentiality of Alcohol and Drug Abuse Patient Records regulations: The Federal rules restrict any use of the information to criminally investigate or prosecute any alcohol or drug abuse patient.[facility] HospitalIn the event this information is protected by the Federal Confidentiality of Alcohol and Drug Abuse Patient Records regulations: The Federal rules restrict any use of the information to criminally investigate or prosecute any alcohol or drug abuse patient.[facility] HospitalIn the event this information is protected by the Federal Confidentiality of Alcohol and Drug Abuse Patient Records regulations: The Federal rules restrict any use of the information to criminally investigate or prosecute any alcohol or drug abuse patient.[facility] HospitalIn the event this information is protected by the Federal Confidentiality of Alcohol and Drug Abuse Patient Records regulations: The Federal rules restrict any use of the information to criminally investigate or prosecute any alcohol or drug abuse patient.[facility] HospitalIn the event this information is protected by the Federal Confidentiality of Alcohol and Drug Abuse Patient Records regulations: The Federal rules restrict any use of the information to criminally investigate or prosecute any alcohol or drug abuse patient.[facility] HospitalIn the event this information is protected by the Federal Confidentiality of Alcohol and Drug Abuse Patient Records regulations: The Federal rules restrict any use of the information to criminally investigate or prosecute any alcohol or drug abuse patient.[facility] HospitalIn the event this information is protected by the Federal Confidentiality of Alcohol and Drug Abuse Patient Records regulations: The Federal rules restrict any use of the information to criminally investigate or prosecute any alcohol or drug abuse patient.[facility] HospitalIn the event this information is protected by the Federal Confidentiality of Alcohol and Drug Abuse Patient Records regulations: The Federal rules restrict any use of the information to criminally investigate or prosecute any alcohol or drug abuse patient.[facility] HospitalIn the event this information is protected by the Federal Confidentiality of Alcohol and Drug Abuse Patient Records regulations: The Federal rules restrict any use of the information to criminally investigate or prosecute any alcohol or drug abuse patient.[facility] HospitalIn the event this information is protected by the Federal Confidentiality of Alcohol and Drug Abuse Patient Records regulations: The Federal rules restrict any use of the information to criminally investigate or prosecute any alcohol or drug abuse patient.[facility] HospitalIn the event this information is protected by the Federal Confidentiality of Alcohol and Drug Abuse Patient Records regulations: The Federal rules restrict any use of the information to criminally investigate or prosecute any alcohol or drug abuse patient.[facility] HospitalIn the event this information is protected by the Federal Confidentiality of Alcohol and Drug Abuse Patient Records regulations: The Federal rules restrict any use of the information to criminally investigate or prosecute any alcohol or drug abuse patient.[facility] HospitalIn the event this information is protected by the Federal Confidentiality of Alcohol and Drug Abuse Patient Records regulations: The Federal rules restrict any use of the information to criminally investigate or prosecute any alcohol or drug abuse patient.[facility] HospitalIn the event this information is protected by the Federal Confidentiality of Alcohol and Drug Abuse Patient Records regulations: The Federal rules restrict any use of the information to criminally investigate or prosecute any alcohol or drug abuse patient.[facility] HospitalIn the event this information is protected by the Federal Confidentiality of Alcohol and Drug Abuse Patient Records regulations: The Federal rules restrict any use of the information to criminally investigate or prosecute any alcohol or drug abuse patient.[facility] HospitalIn the event this information is protected by the Federal Confidentiality of Alcohol and Drug Abuse Patient Records regulations: The Federal rules restrict any use of the information to criminally investigate or prosecute any alcohol or drug abuse patient.[facility] HospitalIn the event this information is protected by the Federal Confidentiality of Alcohol and Drug Abuse Patient Records regulations: The Federal rules restrict any use of the information to criminally investigate or prosecute any alcohol or drug abuse patient.[facility] HospitalIn the event this information is protected by the Federal Confidentiality of Alcohol and Drug Abuse Patient Records regulations: The Federal rules restrict any use of the information to criminally investigate or prosecute any alcohol or drug abuse patient.[facility] HospitalIn the event this information is protected by the Federal Confidentiality of Alcohol and Drug Abuse Patient Records regulations: The Federal rules restrict any use of the information to criminally investigate or prosecute any alcohol or drug abuse patient.[facility] HospitalIn the event this information is protected by the Federal Confidentiality of Alcohol and Drug Abuse Patient Records regulations: The Federal rules restrict any use of the information to criminally investigate or prosecute any alcohol or drug abuse patient.[facility] HospitalIn the event this information is protected by the Federal Confidentiality of Alcohol and Drug Abuse Patient Records regulations: The Federal rules restrict any use of the information to criminally investigate or prosecute any alcohol or drug abuse patient.[facility] HospitalIn the event this information is protected by the Federal Confidentiality of Alcohol and Drug Abuse Patient Records regulations: The Federal rules restrict any use of the information to criminally investigate or prosecute any alcohol or drug abuse patient.[facility] HospitalIn the event this information is protected by the Federal Confidentiality of Alcohol and Drug Abuse Patient Records regulations: The Federal rules restrict any use of the information to criminally investigate or prosecute any alcohol or drug abuse patient.[facility] HospitalIn the event this information is protected by the Federal Confidentiality of Alcohol and Drug Abuse Patient Records regulations: The Federal rules restrict any use of the information to criminally investigate or prosecute any alcohol or drug abuse patient.[facility] HospitalIn the event this information is protected by the Federal Confidentiality of Alcohol and Drug Abuse Patient Records regulations: The Federal rules restrict any use of the information to criminally investigate or prosecute any alcohol or drug abuse patient.[facility] HospitalIn the event this information is protected by the Federal Confidentiality of Alcohol and Drug Abuse Patient Records regulations: The Federal rules restrict any use of the information to criminally investigate or prosecute any alcohol or drug abuse patient.[facility] HospitalIn the event this information is protected by the Federal Confidentiality of Alcohol and Drug Abuse Patient Records regulations: The Federal rules restrict any use of the information to criminally investigate or prosecute any alcohol or drug abuse patient.[facility] HospitalIn the event this information is protected by the Federal Confidentiality of Alcohol and Drug Abuse Patient Records regulations: The Federal rules restrict any use of the information to criminally investigate or prosecute any alcohol or drug abuse patient.[facility] HospitalIn the event this information is protected by the Federal Confidentiality of Alcohol and Drug Abuse Patient Records regulations: The Federal rules restrict any use of the information to criminally investigate or prosecute any alcohol or drug abuse patient.[facility] HospitalIn the event this information is protected by the Federal Confidentiality of Alcohol and Drug Abuse Patient Records regulations: The Federal rules restrict any use of the information to criminally investigate or prosecute any alcohol or drug abuse patient.[facility] HospitalIn the event this information is protected by the Federal Confidentiality of Alcohol and Drug Abuse Patient Records regulations: The Federal rules restrict any use of the information to criminally investigate or prosecute any alcohol or drug abuse patient.[facility] HospitalIn the event this information is protected by the Federal Confidentiality of Alcohol and Drug Abuse Patient Records regulations: The Federal rules restrict any use of the information to criminally investigate or prosecute any alcohol or drug abuse patient.[facility] HospitalIn the event this information is protected by the Federal Confidentiality of Alcohol and Drug Abuse Patient Records regulations: The Federal rules restrict any use of the information to criminally investigate or prosecute any alcohol or drug abuse patient.[facility] HospitalIn the event this information is protected by the Federal Confidentiality of Alcohol and Drug Abuse Patient Records regulations: The Federal rules restrict any use of the information to criminally investigate or prosecute any alcohol or drug abuse patient.[facility] HospitalIn the event this information is protected by the Federal Confidentiality of Alcohol and Drug Abuse Patient Records regulations: The Federal rules restrict any use of the information to criminally investigate or prosecute any alcohol or drug abuse patient.[facility] HospitalIn the event this information is protected by the Federal Confidentiality of Alcohol and Drug Abuse Patient Records regulations: The Federal rules restrict any use of the information to criminally investigate or prosecute any alcohol or drug abuse patient.[facility] Reason for Visit (unrecogniz ed section and content) Reason Onset Date Comments Barky Cough 08/09/2021 Reason Onset Date Comments Refill Request 08/13/2021 Reason Comments Follow Up Reason Comments Endometrial Biopsy Specialty Diagnoses / Procedures Referred By Travis garcia Referred To Contact [facility] Diagnoses Menorrhagia with regular cycle Procedures ENDOMETRIAL BIOPSY ENDOMETRIAL BX W/WO ENDOCERVIX BX W/O DILAT SPX Jaylan Syed MD [address] 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 Denies nipple discharge. States right breast feels warm at times. Specialty Diagnoses / Procedures Referred By Travis garcia Referred To Contact Certified Nurse Practitioner / Surgical Oncology Diagnoses New Patient right breast flatter than the left-pain around nipple on right breast and breast feels warm to touch-no breast imaging. NPP mailed Procedures NEW DIAGNOSTIC BREAST CLINIC Self, Self Venita Nair APRN-GREEN CHAIN MARKER [address] [place] [address] Referral ID Status Reason Start Date Expiration Date V isits Requested Visits Authorized [id number] New Request 02/15/2022 03/12/2023 1 1 Specialty Diagnoses / Procedures Referred By Travis garcia Referred To Contact Diagnoses Breast pain Mass of right breast, unspecified quadrant Procedures MAMMO DIAGNOSTIC WITH MATA BILATERAL Venita Nair MECHANICAL OPERATOR-GREEN CHAIN MARKER [address] [id number] Referral ID Status Reason Start Date Expiration Date V isits Requested Visits Authorized [id number] New Request 02/15/2022 03/12/2023 1 1 Specialty Diagnoses / Procedures Referred By Travis garcia Referred To Contact Diagnoses Breast pain Mass of right breast, unspecified quadrant Procedures US BREAST LIMITED UNILATERAL RIGHT Venita Nair MECHANICAL OPERATOR-GREEN CHAIN MARKER [address] [place] [address] Referral ID Status Reason Start Date Expiration Date V isits Requested Visits Authorized [id number] New Request 02/15/2022 03/12/2023 1 1 Reason [...] pressure Specialty Diagnoses / Procedures Referred By Travis garcia Referred To Contact Internal Medicine / [facility] Diagnoses possible sinus infection: ear pressure, sore throat cough, congstion, drainage x 4 days Procedures EST SAME DAY Self [facility] [address] [place] [address] Referral ID Status Reason Start Date Expiration Date Visits Requested Visits Authorized [id number] Pending Review Financial Clearance Required - Self [...] 10/03/2023 Specialty Diagnoses / Procedures Referred By Travis garcia Referred To Contact Radiology / [facility] Diagnoses 2 Procedures XR CHEST Athy, Shima R, PA-C [address] [place] [address] [facility] [address] [place] [address] Referral ID Status Reason Start Date Expiration Date V isits Requested Visits Authorized [id number] Closed Clearance Not Met -Financial Clearance Bypassed 05/29/2023 08/27/2023 1 1 Reason Onset Date Comments Refill Request 02/02/2024 Reason Comments Chest Congestion cough, sinus pressur e, headache, ear pain x 6-7 days Reason Comments FMLA form Reason Onset Date Comments Refill Request 11/12/2024 Care Teams (unrecognized sec tion and content) [...] Other Provider Active Start: July 05, 2024 Ballistics Teacher Relationship Specialty Start Date End Date Mena Vernon MD [address] [place], [place] [address] PCP - General Internal Medicine 05/13/13 Ballistics Teacher Relationship Specialty Start Date End Date Mena Vernon MD [address] [place] [address] PCP - General Internal Medicine 05/13/13 Ballistics Teacher Relationship Specialty Start Date End Date Mena Vernon MD [address] [facility] [place] [address] PCP - General Internal Medicine 05/13/13 Ballistics Teacher Relationship Specialty [place] [address] [place] [address], [place] [address] PCP - General Internal Medicine 05/13/13 Ballistics Teacher Relationship Specialty Start Date End Date Mena Vernon MD [address] [place] [address], [place] [address] PCP - General Internal Medicine 05/13/13 Ballistics Teacher Relationship Specialty Start Date End Date Mena Vernon MD [address] [place] [address], [place] [address] PCP - General Internal Medicine 05/13/13 Ballistics Teacher Relationship Specialty Start Date End Date Mena Vernon MD [address] [place] [address], [place] [address] PCP - General Internal Medicine 05/13/13 Ballistics Teacher Relationship Specialty Start Date End Date Mena Vernon MD [address] [place] [address], [place] [address] PCP - General Internal Medicine 05/13/13 Ballistics Teacher Relationship Specialty [place] [address] [place] [address], [place] [address] PCP - General Internal Medicine 05/13/13 Ballistics Teacher Relationship Specialty Start Date End Date Mena Vernon MD [address] [place] [address], [place] [address] PCP - General Internal Medicine 05/13/13 Ballistics Teacher Relationship Specialty Start Date End Date Mena Vernon MD [address] [place] [address] PCP - General Internal Medicine 02/15/22 Jaylan Syed MD [address] [facility] [place] [address] [employer]fish Farming Supervisor Obstetrics & Gynecology 02/15/22 Ballistics Teacher Relationship Specialty Start Date End Date Mena Vernon MD [address] [place] [address] PCP - General Internal Medicine 02/15/22 Jaylan Syed MD [address] [place] [address] [employer]fish Farming Supervisor Obstetrics & Gynecology 02/15/22 Ballistics Teacher Relationship Specialty Start Date End Date Mena Vernon MD [address] [place] [address] PCP - General Internal Medicine 02/15/22 Jaylan Syed MD [address] [place] [address] [employer]fish Farming Supervisor Obstetrics & Gynecology 02/15/22 Ballistics Teacher Relationship Specialty Start Date End Date Mena Vernon MD [address] [facility] [place] [address] PCP - General Internal Medicine 05/13/13 Ballistics Teacher Relationship Specialty Start Date End Date Mena Vernon MD [address] [facility] [place] [address] PCP - General Internal Medicine 05/13/13 Ballistics Teacher Relationship Specialty Start Date End Date Mena Vernon MD [address] [facility] [place] [address] PCP - General Internal Medicine 05/13/13 Team Status: Active Member Role Status Dates Dr. Mena Vernon MD Family Provider Active Dr. Mena Vernon MD Primary Care Provider Active Team Status: Inactive Member Role Status Dates Dr. Mena Vernon MD Primary Care Provider Active Dr. Johnny Barney MD Emergency Provider Active Ballistics Teacher Relationship Specialty Start Date End Date Mena Vernon MD [address] [facility] [place] [address] PCP - General Internal Medicine 05/13/13 Ballistics Teacher Relationship Specialty Start Date End Date Mena Vernon MD [address] [facility] [place] [address] PCP - General Internal Medicine 05/13/13 Ballistics Teacher Relationship Specialty Start Date End Date Mena Vernon MD [address] [facility] [place] [address] PCP - General Internal Medicine 05/13/13 Ballistics Teacher Relationship Specialty Start Date End Date Mena Vernon MD [address] [facility] [place] [address] PCP - General Internal Medicine 05/13/13 Ballistics Teacher Relationship Specialty Start Date End Date Mena Vernon MD [address] [facility] [address] PCP - General Internal Medicine 05/13/13 Ballistics Teacher Relationship Specialty Start Date End Date Mena Vernon MD [address] [facility] [address] PCP - General Internal Medicine 05/13/13 Ballistics Teacher Relationship Specialty Start Date End Date Mena Vernon MD [address] [facility] [address] PCP - General Internal Medicine 05/13/13 Ballistics Teacher Relationship Specialty Start Date End Date Mena Vernon MD [address] [place] [address] PCP - General Internal Medicine 05/13/13 Ballistics Teacher Relationship Specialty Start Date End Date Mena Vernon MD [address] [place] [address] PCP - General Internal Medicine 05/13/13 Ballistics Teacher Relationship Specialty Start Date End Date Mena Vernon MD [address] [place] [address] PCP - General Internal Medicine 05/13/13 Ballistics Teacher Relationship Specialty Start Date End Date Mena Vernon MD [address] [place] [address] PCP - General Internal Medicine 05/13/13 Ballistics Teacher Relationship Specialty Start Date End Date Mena Vernon MD [address] [place] [address] PCP - General Internal Medicine 05/13/13 Ballistics Teacher Relationship Specialty Start Date End Date Mena Vernon MD [address] [place] [address] PCP - General Internal Medicine 05/13/13 Ballistics Teacher Relationship Specialty Start Date End Date Mena Vernon MD [address] [place] [address] PCP - General Internal Medicine 05/13/13 Ballistics Teacher Relationship Specialty Start Date End Date Mena Vernon MD [address] [facility] [place] [address] PCP - General Internal Medicine 05/13/13 Ballistics Teacher Relationship Specialty Start Date End Date Mena Vernon MD [address] [facility] [address] PCP - General Internal Medicine 05/13/13 Ballistics Teacher Relationship Specialty Start Date End Date Mena Vernon MD [address] [facility] [place] [address] PCP - General Internal Medicine 05/13/13 Ballistics Teacher Relationship Specialty Start Date End Date Mena Vernon MD [address] [facility] [address] PCP - General Internal Medicine 05/13/13 Deepti Redd, MECHANICAL OPERATOR.INFORMATION BROKER [address] [facility] [place] [address] Supervisor Power Reactor Internal Medicine 02/16/24 Karol Vergara APRN.GREEN CHAIN MARKER [address] [place] [address] Supervisor Power Reactor Internal Medicine 02/16/24 Ballistics Teacher Relationship Specialty Start Date End Date Mena Vernon MD [address] [facility] [place] [address] PCP - General Internal Medicine 05/13/13 Deepti Redd APRN.INFORMATION BROKER [address] [facility] [address] Supervisor Power Reactor Internal Medicine 02/16/24 Karol Vergara APRN.GREEN CHAIN MARKER [address] [place] [address] [facility] Internal Medicine 02/16/24 Ballistics Teacher Relationship Specialty Start Date End Date Mena Vernon MD [address] [place] [address] PCP - General Internal Medicine 05/13/13 Deepti Redd, MECHANICAL OPERATOR.INFORMATION BROKER [address] [place] [address] Supervisor Power Reactor Internal Medicine 02/16/24 Karol Vergara, MECHANICAL OPERATOR.GREEN CHAIN MARKER [address] [place] [address] [facility] Internal Medicine 02/16/24 Ballistics Teacher Relationship Specialty Start Date End Date Mena Vernon MD [address] [place] [address] PCP - General Internal Medicine 05/13/13 Deepti Redd, MECHANICAL OPERATOR.INFORMATION BROKER [address] [place] [address] [facility] Internal Medicine 02/16/24 Karol Vergara, MECHANICAL OPERATOR.GREEN CHAIN MARKER [address] [place] [address] [facility] Internal Medicine 02/16/24 Team Status: Active Member [...] July 12, 2024 End: July 12, 2024 Ballistics Teacher Relationship Specialty Start Date End Date Mena Vernon MD [address] [place] [address] PCP - General Internal Medicine 05/13/13 Deepti Redd, MECHANICAL OPERATOR.INFORMATION BROKER [address] [place] [address] Supervisor Power Reactor Internal Medicine 02/16/24 Karol Vergara, MECHANICAL OPERATOR.GREEN CHAIN MARKER [address] [facility] [place] [address] [facility] Internal Medicine 06/01/24 Ballistics Teacher Relationship Specialty Start Date End Date Mena Vernon MD [address] [place], [place] [address] PCP - General Internal Medicine 05/13/13 Deepti Redd, MECHANICAL OPERATOR.INFORMATION BROKER [address] [place], [place] [address] [facility] Internal Medicine 02/16/24 Karol Vergara APRN.GREEN CHAIN MARKER [address] [place] [address] [facility] Internal Medicine 06/01/24 Team Status: Active Member Role Status Dates [...] July 05, 2024 Dr. Tristen Harrison DO Referring Provider Active Start: July 05, 2024 Dr. Tristen Harrison DO Other Provider Active Start: July 05, 2024 Team Status: Inactive Member Role Status Dates Dr. Mena Vernon MD Primary Care Provider Active Start: August 10, 2024 End: August 10, 2024 Dr. Mena Vernon MD Referring Provider Active Start: August 10, 2024 End: August 10, 2024 Dr. Sergio Mcfarland DO Attending Provider Active Start: August 10, 2024 End: August 10, 2024 Team Status: Inactive Member Role Status Dates Dr. Mena Vernon MD Primary Care Provider Active Start: August 10, 2024 End: August 10, 2024 Dr. Sergio Mcfarland DO Attending Provider Active Start: August 10, 2024 End: August 10, 2024 Dr. Sergio Mcfarland DO Referring Provider Active Start: August 10, 2024 End: August 10, 2024 Team Status: Active Member Role Status Dates Dr. Mena Vernon MD Primary Care Provider Active Start: August 10, 2024 Dr. Sergio Mcfarland DO Attending Provider Active Start: August 10, 2024 Dr. Sergio Mcfarland DO Referring Provider Active Start: August 10, 2024 Ballistics Teacher Relationship Specialty Start Date End Date Mena Vernon MD [address] [facility] [place] [address] PCP - General Internal Medicine 05/13/13 Karol Vergara APRN.GREEN CHAIN MARKER [address] [place] [address] Supervisor Power Reactor Internal Medicine 06/01/24 Deepti Redd APRN.INFORMATION BROKER [address] [facility] [place] [address] Supervisor Power Reactor Internal Medicine 07/28/24 Ballistics Teacher Relationship Specialty Start Date End Date Mena Vernon MD [address] [facility] [address] PCP - General Internal Medicine 05/13/13 Karol Vergara APRN.GREEN CHAIN MARKER [address] [facility] [address] Supervisor Power Reactor Internal Medicine 06/01/24 Deepti Redd APRN.INFORMATION BROKER [address] [facility] [address] Supervisor Power [facility] 07/28/24 Ballistics Teacher Relationship Specialty Start Date End Date Mena Vernon MD [address] [facility] [place] [address] PCP - General Internal Medicine 05/13/13 Karol Vergara APRN.GREEN CHAIN MARKER [address] [facility] [place] [address] Supervisor Power [facility] Internal [facility] 06/01/24 Deepti Redd APRN.INFORMATION BROKER [address] [facility] [place] [address] Supervisor Power [facility] Internal [facility] 07/28/24 INFORMATION SOURCE (unrecogn ized section and content) DATE CREATED AUTHOR 02/16/2022 [facility] DATE CREATED AUTHOR AUTHOR'S ORGANIZ ATION 11/09/2023 [facility] DATE CREATED AUTHOR AUTHOR'S ORGANIZ ATION 07/24/2024 [facility] DATE CREATED AUTHOR AUTHOR'S ORGANIZ ATION 08/17/2024 [facility] DATE CREATED AUTHOR AUTHOR'S ORGANIZ ATION 11/14/2024 [facility] FOR RECORDS PERTAINING TO PATIENTS WHO [...] BE BASED ON THE PRIMARY CLINICAL RECORDS. [facility]. provides no warranty or guarantee of the accuracy or completeness of information in this document.
--- NOTE | 2024-12-03 04:32 | EDS_ITS ---
HPI History of Present Illness Chief Complaint: Abd Pain Informant: patient Narrative Narrative: Patient is a 39-year-old female who was admitted in June secondary to cholelithiasis with concern for acute cholecystitis. She states that during this time I felt there was a stone in the common bile duct and that she did not have true acute cholecystitis. Therefore she underwent ERCP and had the stone removed but gallbladder was left in place. She states that she has been doing well for the past 4 to 5 months but in the last 2 days has been having increasing pain along the right upper abdomen. She states that this feels similar nature to her previous episode. She states she scheduled an appointment with a general surgeon which is to happen later this morning but she states the pain was more severe and therefore she presents to ER for evaluation. [facility] Medical History (Updated 12/09/24 @ 23:[address] Mohit Gary, ) Cholelithiasis Wears glasses Depression Anxiety Alcohol use Migraine headache Former smoker Hypertension Hx of vaginal delivery ADHD Home Medications Medication Instructions Recorded Last Taken Type dextroamphetamine-amphetamine 30 30 mg PO 0800,1200 AD HD 11/08/21 12/02/24 History mg tablet (Adderall) multivitamin 1 tab PO DAILY supplement 12/02/24 History lisinopril 5 mg tablet 5 mg PO DAILY BP 07/04/24 History famotidine 20 mg tablet (Acid 20 mg PO DAILY gastrix r eflux 12/03/24 12/03/24 History Ehr Trainer (famotidine)) hydrocodone-acetaminophen 5-325mg 1 tab PO Q6H PRN nico n 3 days #12 12/03/24 Unknown Rx 5mg-325mg tabs ketotifen fumarate 0.025 % (0.035 2 drp ophthalmic (ey e) BID PRN 12/03/24 11/19/24 History %) eye drops allergy symptoms omeprazole 20 mg capsule,delayed 20 mg PO QDAY gastric reflux 12/03/24 12/03/24 History release oxycodone 5 mg capsule 5 mg PO Q6H PRN pain 3 days #14 12/06/24 Unknown Rx caps Allergy/AdvReac Type Severity Reaction Status Date / Time metformin AdvReac Nausea/Vom/ Verified 12/03/24 20:48 Diarrhea Surgical History (Updated 12/06/24 @ 15:[address] Veronica Austin MD) S/P laparoscopic cholecystectomy History of tonsillectomy and adenoidectomy Social History household members: spouse Smoking Status: Former smoker alcohol intake: current alcohol intake frequency: holidays/special occasions only substance use type: does not use ROS ROS ED Constitutional Constitutional ED: Denies chills or fever(s) ENT ENT ED: Denies sore throat Cardiovascular Cardiovascular: Denies chest pain Respiratory/Chest Respiratory/Chest: Denies cough or dyspnea Gastrointestinal Gastrointestinal: Reports abdominal pain and nausea; Denies diarrhea or vomiting Genitourinary Genitourinary ED: Denies dysuria or hematuria Musculoskeletal Musculoskeletal: Denies back pain or myalgias Integumentary Denies rash Neurologic Neurologic: Denies headache(s) Hematologic/Lymphatic Hematologic/Lymphatic: Denies easy bleeding or easy bruising EXAM Physical Exam Const Vital Signs: 12/03/24 03:07 Temperature 97.8 F Temperature Source Oral Pulse Rate 92 Respiratory Rate 16 Blood Pressure 155/92 H Blood Pressure Mean 113 Pulse Ox 100 Oxygen Delivery Method Room Air Positive well nourished, well developed and obese General Appearance ED: well developed; Negative for pallor Nutritional Appearance: obese HEENT HEENT Narrative: Normocephalic atraumatic No tongue or lip swelling no oral lesions no airway edema or compromise; no secondary findings in the posterior pharynx to suggest infection Eyes PERRL and EOMs intact bilaterally General Eye ED: Negative for scleral icterus Neck supple Resp normal respiratory effort and clear to auscultation bilaterally Cardio regular rate and regular rhythm Rate: other Other Details: Heart is regular rate and rhythm without murmurs rubs or gallop Radial and carotid pulses are equal and symmetric GI non-distended and no masses GI Narrative: Abdomen is soft and nondistended with normal active bowel sounds. There is pain on palpation in the midepigastric and right upper quadrant region. However no voluntary guarding or rigidity. Negative Sherwood sign. No pulsatile mass Auscultation: normoactive bowel sounds Palpation: soft Back/Spine no CVA tenderness Extremity normal to inspection Neuro oriented x3, CN's II-XII intact bilaterally and no sensory deficits noted Sensorium / Orientation: alert Motor Exam: strength 5/5 throughout Psych Psych Narrative: Patient has a flat affect Skin no rashes or lesions noted General Skin Exam: Negative for jaundice or pallor MDM MDM MDM Narrative Medical decision making narrative: Patient arrived to the ER hypertensive but otherwise with stable vitals. Based on her history of known cholelithiasis with right upper quadrant pain for the last 1 to 2 days there is concern that this is biliary colic versus acute cholecystitis versus gallstone pancreatitis. Basic labs were obtained and show no leukocytosis or left shift going against a secondary infection. Lipase is normal going against acute pancreatitis and liver enzymes are normal as well. Urine sample also shows no sign of secondary infection and test is negative going against complication. At this time of night I cannot perform an ultrasound I did discuss obtaining a CT scan to further assess for Luigi cholecystic fluid and acute cholecystitis. The patient is adamant she does not want a CT scan. On reevaluation blood pressure has improved and vitals are stable. We discussed her laboratory results and potential repeating imaging even though she did not wanted initially. She states that as her labs are overall normal and she has an appoint with the surgeon later today and her abdomen does feel better after Toradol that she would prefer to be discharged and follow-up with general surgeon and will return if symptoms worsen or the surgeon recommends repeat evaluation. Therefore this time with stable vitals and improvement of her pain and overall negative workup she is otherwise safe for discharge History & Record Review Discussion w/independent historian: Patient Lab Data Attestation: I reviewed the patient's lab results. Labs: Laboratory Results - last 24 hr 12/03/24 12/03/24 03:12 03:38 WBC 7.1 RBC 4.84 Hgb 13.0 Hct 39.0 MCV 80.6 L MCH 26.9 L MCHC 33.3 RDW Std Deviation 43.5 RDW Coeff of María 15.0 H Plt Count 358 MPV 9.9 Immature Gran % (Auto) 0.400 Neut % (Auto) 59.5 Lymph % (Auto) 27.4 [place] % (Auto) 10.2 H Eos % (Auto) 1.8 Baso % (Auto) 0.7 Absolute Neuts (auto) 4.2 Absolute Lymphs (auto) 1.93 Nucleated RBC % 0 Sodium 138 Potassium 3.6 Chloride 102 Carbon Dioxide 25.6 Anion Gap 11 BUN 12 Creatinine 0.57 L Estim Creat Clear Calc 148.60 Est GFR (MDRD) Non-Af 120 BUN/Creatinine Ratio 20.2 H Glucose 89 Calcium 9.5 Total Bilirubin 0.29 Direct Bilirubin 0.15 AST 37 H ALT 27 Alkaline Phosphatase 72 Total Protein 6.8 Albumin 4.5 Globulin 2.3 Lipase 55 Urine Color Yellow Urine Clarity Cloudy Urine pH 6.0 Ur Specific [place] 1.020 Urine Protein 15 H Urine Glucose (UA) Normal Urine Ketones Negative Urine Occult Blood Negative Urine Nitrite Negative Urine Bilirubin Negative Urine Urobilinogen Normal Ur Leukocyte Esterase Negative Urine RBC 0 SEEN Urine WBC 0-5 SEEN Ur Squamous Epith Cells 10-25 SEEN Urine Bacteria 2+ Urine Mucus RARE Urine Test Negative Discharge Plan Triage Chief Complaint: Abd Pain ED Provider: Mohit Gary Dx/Rx/DC Orders Clinical Impression: Nonspecific abdominal pain, Cholelithiasis, Anxiety and depression Instructions: ED Abdominal Pain Gallstone Poss Prescriptions: New hydrocodone-acetaminophen 5-325 mg tablet 1 tab PO Q6H PRN (Reason: pain) 3 Days Qty: 12 0RF Patient Comments: "filled it, but didn't take any" No Action omeprazole 20 mg capsule,delayed release(DR/EC) 20 mg PO QDAY multivitamin Tablet 1 tab PO DAILY dextroamphetamine-amphetamine [Adderall] 30 mg tablet 30 mg PO 0800,1200 famotidine [Acid Ehr Trainer (famotidine)] 20 mg tablet 20 mg PO DAILY oxycodone 5 mg capsule 5 mg PO Q6H PRN (Reason: pain) 3 Days Qty: 14 0RF lisinopril 5 mg tablet 5 mg PO DAILY ketotifen fumarate 0.025 % (0.035 %) drops 2 drp ophthalmic (eye) BID PRN (Reason: allergy symptoms) Primary Care Provider: Harriett Flood Referrals: Harirett Flood MD [Primary Care Provider, Internal Medicine] Veronica Austin MD [Med Staff - Active Staff, General Surgery] Activity Restrictions/Additional Instructions: Your labs today revealed no clinically significant findings. However based on your previous history there is concern that your pain is related to biliary colic versus potential acute cholecystitis or even a retained common bile duct stone. Follow-up with your general surgeon to discuss further testing such as ultrasound or HIDA scan. Return to the ER should you have any further concerns Print Language: Belarusian Disposition Disposition: Home, Self Care Discharge Date/Time: 12/03/24 04:46
[2024-12-03 04:37] VITALS: BP 132/81; PULSE 85; RESP 16; TEMP 36.6; O2SAT 100
== END 2024-12-03 04:46 | disposition home or self-care (01) ==
PROVIDERS: Emergency Provider Emergency Medicine; PCP Internal Medicine; Visit Provider Emergency Medicine
DX: R10.9 Unspecified abdominal pain (principal); I10 Essential (primary) hypertension; Z87.891 Personal history of nicotine dependence; F90.9 Attention-deficit hyperactivity disorder, unspecified type
CPT/HCPCS: 80048; 80076; 81001; 81025; 83690; 85025; 99283; A4216; J2405

== ENCOUNTER 2024-12-03 14:59 | Observation (INO) | payer MEDICAID, SELFPAY ==
[2024-12-03 15:01] VITALS: BP 131/75; PULSE 96; RESP 18; TEMP 36.9; O2SAT 98; BMI 39.7
[2024-12-03 17:03] VITALS: BP 131/84; PULSE 78; RESP 18; O2SAT 100
--- NOTE | 2024-12-03 17:21 | CT_ITS ---
PROCEDURE: ABDOMEN/PELVIS W IV CONT ONLY 12/03/2024 REASON FOR EXAM: ELEVATED LIVER ENZYMES TECHNIQUE: Procedure Code: [id number] Modality: CT Procedure: ABDOMEN/PELVIS W IV CONT ONLY Coronal and Sagittal reconstruction series were provided. CONTRAST: 100 cc of Isovue 370 intravenous contrast. One or more dose reduction techniques were used (e.g., Automated exposure control, adjustment of the mA and/or kV according to patient size, use of iterative reconstruction technique. COMPARISON: 07/05/2024 CT FINDINGS: Lung bases: Unremarkable. Liver: Normal size. No mass. Gallbladder: Unremarkable. No biliary ductal dilatation. Spleen: Normal size. Pancreas: Normal size without evidence of mass surrounding inflammation or ductal dilation. Adrenals: Unremarkable. Kidneys: Normal renal sizes. No hydronephrosis. Bladder: Unremarkable. Reproductive Organs: Normal uterine size and contour. Ovaries are unremarkable. Bowel: Scattered colonic diverticulosis with no evidence of acute diverticulitis. No bowel obstruction. Appendix: Normal. Lymph nodes: Unremarkable. Vasculature: The abdominal aorta and IVC are normal. Peritoneum / Retroperitoneum: No free fluid or air. Bones: No acute fractures. CT/Abdomen/Pelvis W IV Cont ONLY IMPRESSION: 1. No acute findings in the abdomen or pelvis. 2. Scattered colonic diverticulosis without acute diverticulitis. Reading [facility]
--- NOTE | 2024-12-03 17:30 | US_ITS ---
PROCEDURE: GALLBLADDER 12/03/2024 REASON FOR EXAM: RUQ PAIN, ELEVATED LFTS TECHNIQUE: Procedure Code: USGB Modality: US Procedure: GALLBLADDER COMPARISON: Gallbladder ultrasound 07/04/2024 FINDINGS: Liver: The liver is normal in size measuring up to 15.4 cm. Mildly echogenic hepatic parenchyma suggesting fatty infiltration. Gallbladder: There is cholelithiasis. No gallbladder wall thickening or pericholecystic fluid. Negative sonographic Sherwood's sign. Common bile duct: Normal measuring 2.9 mm . Pancreas: Obscured by bowel gas. Other: Normal visualized right kidney measuring up to 10.6 cm in length. US/Gallbladder IMPRESSION: Cholelithiasis without evidence of acute cholecystitis. Reading Location: [id number]
--- NOTE | 2024-12-03 17:31 | EX.ED.DYSGE1 ---
HPI History of Present Illness Chief Complaint: Abn Labs Narrative Narrative: Patient is a 39-year-old female past medical history of cholelithiasis, depression, anxiety, alcohol use she states socially, hypertension, ADHD who presented to the emergency department the chief complaint of abnormal liver enzymes. She states that she followed up with Dr. Austin earlier and noted that her liver enzymes were elevated she was advised that she needs to come back to the emergency department for imaging of her abdomen. States that this has happened in the past but they state that she passed a gallstone on her own and her liver enzymes normalized. Patient states that she was having some pain in the right upper portion of her abdomen but this has resolved she is complaining of nausea. Patient denies any history of any IV drug use PFSH PFS Medical History Cholelithiasis Wears glasses Depression Anxiety Alcohol use Migraine headache Former smoker Hypertension Hx of vaginal delivery ADHD Home Medications Medication Instructions Recorded Last Taken Type dextroamphetamine-amphetamine 30 30 mg PO 0800,1200 11/08/21 07/03/24 History mg tablet (Adderall) multivitamin 1 tab PO DAILY 11/08/21 07/03/24 History lisinopril 5 mg tablet 5 mg PO DAILY 07/04/24 07/04/24 History hydrocodone-acetaminophen 5-325mg 1 tab PO Q6H PRN pain 3 days #12 12/03/24 Unknown Rx 5mg-325mg tabs ketotifen fumarate 0.025 % (0.035 2 drp ophthalmic (eye) BID PRN 12/03/24 Unknown History %) eye drops allergy symptoms omeprazole 20 mg capsule,delayed 20 mg PO QDAY 12/03/24 Unknown History release Allergy/AdvReac Type Severity Reaction Status Date / Time metformin AdvReac Diarrhea Verified 12/03/24 09:26 Surgical History History of tonsillectomy and adenoidectomy Social History household members: spouse Smoking Status: Former smoker alcohol intake: current alcohol intake frequency: holidays/special occasions only substance use type: does not use ROS ROS ED ROS Narrative Constitutional: Denies any fevers, chills, headaches Eyes: Denies change in vision double vision Cardiovascular: Denies chest pain Respiratory: Denies shortness of breath Abdomen: Complains of abdominal pain and nausea as noted above denies vomiting or diarrhea : Denies urinary symptoms Neurological: Denies any numbness, weakness, tingling Musculoskeletal: Denies back pain Skin: Denies any rashes or lesions EXAM Physical Exam Narrative Exam Narrative: General: Patient was lying in bed rest comfortably did not appear to be in acute distress Head: Atraumatic, normocephalic Eyes: PERRL bilaterally, EOMI bilaterally, no conjunctival injection noted Neck: Soft, supple, trachea midline Cardiovascular: Regular rate and rhythm Respiratory: Clear to auscultation bilaterally Abdomen: Soft, nondistended, tenderness to palpation epigastric in the right upper quadrant is no rebound or guarding on exam Extremities: +5/5 strength noted in the bilateral upper lower extremities, radial pulses +2/4 in the bilateral extremities Neurological: Patient following commands knew that she was at [facility] year is 2024 Skin: Warm, dry, intact no rashes or lesions noted Const Vital Signs: 12/03/24 15:01 12/03/24 17:03 12/03/24 17:04 Temperature 98.5 F Temperature Source Oral Pulse Rate 96 78 Respiratory Rate 18 18 Respiratory Effort Normal Non-Labored Blood Pressure 131/75 H 131/84 H Blood Pressure Mean 93 99 Pulse Ox 98 100 Oxygen Delivery Method Room Air Room Air MDM MDM MDM Narrative Medical decision making narrative: Patient is a 39-year-old female who presents to the emergency department after having abnormal blood work obtained in the outpatient setting. On the differential diagnose includes but limited to choledocholithiasis, cholecystitis, cholangitis, pancreatitis. Once workup is obtained reviewed she will be reevaluated. Patient got IV fluids and Zofran. Patient CBC reviewed showed no evidence leukocytosis white blood count 4.7, hemoglobin 12.4, platelet count was noted be 347. Patient sodium was 139, potassium normal at 4, creatinine 0.63. Patient's total bilirubin elevated 1.77, AST and ALT were 1452 and 1428 respectively. Patient urinalysis reviewed showed negative nitrites negative leukocyte esterase microscopic is pending however have low suspicion for infection at this point in time. Patient CT ab pelvis with IV contrast showed no acute findings abdomen pelvis scattered colonic diverticulosis without acute diverticulitis. Patient gallbladder ultrasound reviewed by myself official read is pending shows gallstones but normal common bile duct. Discussed case with Dr. Austin who states that the patient needs admitted to the hospital service and will plan for HIDA scan as well as liver biopsy with gastroenterology Dr. Mcfarland. Will discuss case with hospitalist for admission. Spoke with hospitalist Dr. Rodriguez who will admit the patient he is requesting Zosyn which was ordered as well as discussion with configuration analyst Dr. Mcfarland. There is no identifiable source of infection at this point in time at 7:00 PM. Spoke with configuration analyst Dr. Mcfarland who states that the patient likely needs MRCP and HIDA scan. Discussed this plan with the patient and significant other bedside they are agreeable all question concerns answered Lab Data Labs: Laboratory Results - last 24 hr 12/03/24 12/03/24 17:32 17:40 WBC 4.7 RBC 4.79 Hgb 12.4 Hct 38.4 MCV 80.2 L MCH 25.9 L MCHC 32.3 RDW Std Deviation 43.8 RDW Coeff of María 15.1 H Plt Count 347 MPV 10.5 Immature Gran % (Auto) 0.200 Neut % (Auto) 75.0 H Lymph % (Auto) 14.3 L [place] % (Auto) 9.2 Eos % (Auto) 0.9 Baso % (Auto) 0.4 Absolute Neuts (auto) 3.5 Absolute Lymphs (auto) 0.67 L Nucleated RBC % 0 Sodium 139 Potassium 4.0 Chloride 105 Carbon Dioxide 23.5 Anion Gap 11 BUN 9 Creatinine 0.63 L Estim Creat Clear Calc 134.15 Est GFR (MDRD) Non-Af 117 BUN/Creatinine Ratio 14.1 Glucose 95 Calcium 9.4 Total Bilirubin 1.77 H AST 1452 H ALT 1428 H Alkaline Phosphatase 164 H Total Protein 7.1 Albumin 4.7 Globulin 2.5 Albumin/Globulin Ratio 1.9 Lipase 64 Urine Color Yellow Urine Clarity Sl. Cloudy Urine pH 6.0 Ur Specific [place] 1.030 Urine Protein 30 H Urine Glucose (UA) Normal Urine Ketones Negative Urine Occult Blood Negative Urine Nitrite Negative Urine Bilirubin 1 H Urine Urobilinogen 1 H Ur Leukocyte Esterase Negative Radiography Diagnostic Testing: Clinical Impression(s) from Imaging Studies Abdomen/Pelvis CT 09/26/25 17:21 IMPRESSION: 1. No acute findings in the abdomen or pelvis. 2. Scattered colonic diverticulosis without acute diverticulitis. Reading Location: [facility] Gallbladder Ultrasound 12/03/24 17:30 IMPRESSION: Cholelithiasis without evidence of acute cholecystitis. Reading Location: [facility] Discharge Plan Dx/Rx/DC Orders Clinical Impression: Cholelithiasis, Elevated LFTs, RUQ abdominal pain Disposition Disposition: Acute Care Hospital [facility]
--- OUTSIDE RECORDS SUMMARY | 2024-12-03 17:40 | XMS RPT_ITS | CCD ---
Author Organization [facility] ion Partnership [facility] Care Team Providers Care Rug Receiving Clerk Name Role Phone Mena Vernon MD Primary [...] CASTAÑEDA, DR SAN Primary Care Unavailable Redd CORPORATE ACCOUNTING MANAGER.CUPROUS CHLORIDE OPERATOR, Deepti Unavailable Jai CORPORATE ACCOUNTING MANAGER.METER/RELAY TECHNICIAN, Karol Unavailable Jai CORPORATE ACCOUNTING MANAGER.METER/RELAY TECHNICIAN, Karol Unavailable Saulo CASTAÑEDA, Dr. Mena Valenzuela Primary Care Provider [phone] Dr. Gavin Alford DO Emergency Provider [phone] Lemuel CASTAÑEDA, Dr. Martinez Admit Provider Lemuel CASTAÑEDA, Dr. Martinez Attending Provider Lemuel CASTAÑEDA, Dr. Martinez Other Provider Norman CASTAÑEDA, Dr. Martin Other Provider Hunter KING, Dr. Ramon Attending Provider Norman CASTAÑEDA, Dr. Martin Attending Provider Hunter KING, Dr. Ramon Other Provider Hunter KING, Dr. Ramon Referring Provider Jai CORPORATE ACCOUNTING MANAGER.METER/RELAY TECHNICIAN, Karol Unavailable Hunter KING, Dr. Ramon Referring Provider Saulo CASTAÑEDA, Dr. Mena Valenzuela Referring Provider Bruna KING, Dr. Hill Attending Provider Bruna KING, Dr. Hill Referring Provider Redd CORPORATE ACCOUNTING MANAGER.CUPROUS CHLORIDE OPERATOR, Deepti Unavailable JAYLAN SYED Attending Unavailable TALAMPAS, MENA D Primary Care Unavailable TALAMPAS, EMNA D Primary Care Unavailable TALAMPAS, MENA D Attending Unavailable TALAMPAS, MENA D Primary Care Unavailable TALAMPAS, MENA D Attending Unavailable TALAMPAS, MENA D Primary Care Unavailable TALAMPAS, MENA D Referring Unavailable TALAMPAS, MENA D Primary Care Unavailable Tristen Harrison Attending Unavailable Tristen Harrison Referring Unavailable Talampas, Mena D Primary Care Unavailable Talampas, Mena D Primary Care Unavailable Robotham, Veronica Attending Unavailable Robotham, Veronica Referring Unavailable Talampas, Mena D Primary Care Unavailable Mohit Gary Attending Unavailable Talampas, Mena D Primary Care Unavailable Sergio Mcfarland Attending Unavailable Sergio Mcfarland Referring Unavailable Talampas, Mena D Primary Care Unavailable Robotham, Veronica Attending Unavailable Talampas, Mena D Referring Unavailable Talampas, Mena D Primary Care Unavailable Sergio Mcfarland Attending Unavailable Talampas, Mena D Referring Unavailable Lemuel, Juan Admitting Unavailable Tristen Harrison Attending Unavailable Robotham, Veronica Consulting Unavailable Talampas, Mena D Primary Care Unavailable Lemuel, Juan Consulting Unavailable Tristen Harrison Consulting Unavailable Tristen Harrison Referring Unavailable Roboteddie, Veronica Attending Unavailable Juan Hdez Attending Unavailable Tristen Harrison Attending Unavailable Juan Hdez Admitting Unavailable Veronica Austin Consulting Unavailable Mena Vernon Primary Care Unavailable Juan Hdez Consulting Unavailable Allergies Allergy Classification Reported Allergen(s) Allergy Type Date of Onset Reaction(s) Facility (20 sources) Seasonal allergy; Translations: [SEASONAL ALLERGIES] Propensity to adverse reactions 07-20-19 16 Other: See Comments [facility] (8 sources) Amphetamine aspartate / Amphetamine Sulfate / Dextroamphetamine saccharate / Dextroamphetamine Sulfate; Translations: [DEXTROAMPHETAMINE-A MPHETAMINE] Drug Allergy 05-25-19 Diarrhea [facility] (10 sources) metFORMIN; Translations: [METFORMIN] Drug Allergy 07-05-19 Diarrhea [facility] (1 source) metFORMIN Drug Allergy 12-04-19 [facility] Repository Medications Current Medications Medication Drug [...] 25, 2021. Take 1 tablet by ryan twice daily for 30 days. Do not start before May 25, 2021. Take 1 tablet by ryan twice [...] on above: Take 1 tablet by ryan one time only for 1 dose. ketotifen [...] on above: Take 1 capsule by mo [facility] once daily for 7 days, THEN 3 capsules once daily for 7 days. Take one capsule bekah ly Do not start before August 08, 2021. Take 1 capsule by [facility] once daily for 7 days. Do not start before August 01, 2021. Take 1 capsule by [facility] once daily for 30 days. Do not start before August 14, 2021. Take 1 capsule by [facility] once daily for 30 days. lisinopril 5 mg oral tablet (20 sources) Angiotensin Converting Enzyme Inhibitor Start: 4 End: take 1 tablet by mouth once daily lisinopril (ZESTRIL) 5 mg tablet Take 1 tablet by mouth once daily. 90 tablet 3 04/19/2024 Active Comment on above: Take 1 tablet by [facility] once daily. Multiple Vitamin (multivitamin) capsule [...] (5 sources) Biguanide Start: 01-11-20 End: 05-10-19 take 1 tablet by mouth twice daily [...] cholangitis; Translations: [Other cholangitis] Onset: 07-28-2024 Chronic Deficiency and other anemia (1 source) Microcytic [...] current use of drug therapy; Translations: [Other longterm (current) drug therapy] 04-19-2024 Episodic Other endocrine [...] liver function tests] Onset: 07-21-2024 07-05-2024 Episodic Other skin disorders (2 sources) [...] Classification Problem Date Documented Da te Episodic/Chronic Biliary tract disease (18 sources) Acute angiocholecystitis; Translations: [Acute cholecystitis] Onset: 07-28-2024 07-04-2024 Episodic Cancer of cervix (20 sources) Atypical [...] 02-15-2022 02-15-2022 Other aftercare (1 source) Other longterm (current) drug therapy; Translations: [Encounter for long-term [...] Test Name Value Interpretation Reference Range Facility Basic Metabolic Profile (BMP )on 12-03-2024 BUN/CRE 20.2 RATIO High 10-20 [facility] Comment on above: Performed By: #### L 500.3400, L501.2450, L100.0100, L500.2500 #### [facility] [address] [place], [address] Calcium [Mass/Vol] 9.5 mg/dL Normal 7.6-11.[address] [facility] Comment on above: Performed By: #### L 500.3400, L501.2450, L100.0100, L500.2500 #### [facility] [address] [place], [address] Chloride [Moles/Vol] 102 mmol/L Normal 98-108 [facility] Comment on above: Performed By: #### L 500.3400, L501.2450, L100.0100, L500.2500 #### [facility] [address] [place], [address] CO2 [Moles/Vol] 25.6 mmol/L Normal 21.0-32.0 [facility] Comment on above: Performed By: #### L 500.3400, L501.2450, L100.0100, L500.2500 #### [facility] [address] [place], [address] Creatinine [Mass/Vol] 0.57 mg/dL Low 0.70-1.20 [facility] Comment on above: Performed By: #### L 500.3400, L501.2450, L100.0100, L500.2500 #### [facility] [address] [place], [address] ECRCL 148.60 ml/min Normal 50-250 [facility] Comment on above: Performed By: #### L 500.3400, L501.2450, L100.0100, L500.2500 #### [facility] [address] [place], [address] GAP 11 Normal 5-15 [facility] Comment on above: Performed By: #### L 500.3400, L501.2450, L100.0100, L500.2500 #### [facility] [address] [place], [address] GFR/1.73 sq M.predicted among non-blacks MDRD (S/P/Bld) [Vol rate/Area] 120 mL/min/{1.73_m2} Normal >60 [facility] Comment on above: Result Comment: mL/m in/1.73m2 CKD-EPI Creatinine Equation (2020) Performed By: #### L 500.3400, L501.2450, L100.0100, L500.2500 #### [facility] [address] [place], [address] Glucose [Mass/Vol] 89 mg/dL Normal 70-[address] [facility] Comment on above: Performed By: #### L 500.3400, L501.2450, L100.0100, L500.2500 #### [facility] [address] [place], [address] Potassium [Moles/Vol] 3.6 mmol/L Normal 3.3-5.1 [facility] Comment on above: Performed By: #### L 500.3400, L501.2450, L100.0100, L500.2500 #### [facility] [address] [place], [address] Sodium [Moles/Vol] 138 mmol/L Normal 133-[address] [facility] Comment on above: Performed By: #### L 500.3400, L501.2450, L100.0100, L500.2500 #### [facility] [address] [place], [address] Urea nitrogen [Mass/Vol] 12 mg/dL Normal 4-19 [facility] Comment on above: Performed By: #### L 500.3400, L501.2450, L100.0100, L500.2500 #### [facility] [address] [place], [address] CBC W/Diff, Automatedon 09-2 Absolute Lymph 1.93 X10 3/uL Normal 0.83-4.51 [facility] Comment on above: Performed By: #### L 500.3400, L501.2450, L100.0100, L500.2500 #### [facility] [address] [place], [address] Absolute Neut 4.2 X10 3/uL Normal 2.0-7.7 [facility] Comment on above: Performed By: #### L 500.3400, L501.2450, L100.0100, L500.2500 #### [facility] [address] [place], [address] Basophils/100 WBC (Bld) 0.7 % Normal 0-1 [facility] Comment on above: Performed By: #### L 500.3400, L501.2450, L100.0100, L500.2500 #### [facility] [address] [place], [address] Eosinophils/100 WBC (Bld) 1.8 % Normal 0-5 [facility] Comment on above: Performed By: #### L 500.3400, L501.2450, L100.0100, L500.2500 #### [facility] [address] [place], [address] Erythrocyte distribution width (RBC) [Ratio] 15.0 % High 11.6-14.6 [facility] Comment on above: Performed By: #### L 500.3400, L501.2450, L100.0100, L500.2500 #### [facility] [address] [place], [address] Hematocrit (Bld) [Volume fraction] 39.0 % Normal 37-47 [facility] Comment on above: Performed By: #### L 500.3400, L501.2450, L100.0100, L500.2500 #### [facility] [address] [place], [address] Hemoglobin (Bld) [Mass/Vol] 13.0 g/dL Normal 12.0-15. 0 [facility] Comment on above: Performed By: #### L 500.3400, L501.2450, L100.0100, L500.2500 #### [facility] [address] [place], [address] IG% 0.400 Normal 0.0-0.9 [facility] Comment on above: Result Comment: IG% - Immature Granulocytes (promyelocytes, myelocytes and metamyelocytes) > 1% indicates that a LEFT SHIFT is Present. Performed By: #### L 500.3400, L501.2450, L100.0100, L500.2500 #### [facility] [address] [place], [address] Lymphocytes/100 WBC (Bld) 27.4 % Normal 19-41 [facility] Comment on above: Performed By: #### L 500.3400, L501.2450, L100.0100, L500.2500 #### [facility] [address] [place], [address] MCH (RBC) [Entitic mass] 26.9 pg Low 27.0-32.0 [facility] Comment on above: Performed By: #### L 500.3400, L501.2450, L100.0100, L500.2500 #### [facility] [address] [place], [address] MCHC (RBC) [Mass/Vol] 33.3 g/dL Normal 32-36 [facility] Comment on above: Performed By: #### L 500.3400, L501.2450, L100.0100, L500.2500 #### [facility] [address] [place], [address] MCV (RBC) [Entitic vol] 80.6 fL Low 81-99 [facility] Comment on above: Performed By: #### L 500.3400, L501.2450, L100.0100, L500.2500 #### [facility] [address] [place], [address] Monocytes/100 WBC (Bld) 10.2 % High 0-10 [facility] Comment on above: Performed By: #### L 500.3400, L501.2450, L100.0100, L500.2500 #### [facility] [address] [place], [address] Neutrophils/100 WBC (Bld) 59.5 % Normal 47-70 [facility] Comment on above: Performed By: #### L 500.3400, L501.2450, L100.0100, L500.2500 #### [facility] [address] [place], [address] Nucleated RBC (Bld) [#/Vol] 0 10*3/uL Normal 0-5 [facility] Comment on above: Performed By: #### L 500.3400, L501.2450, L100.0100, L500.2500 #### [facility] [address] [place], [address] Platelet mean volume (Bld) [Entitic vol] 9.9 fL Normal 6.2-12.0 [facility] Comment on above: Performed By: #### L 500.3400, L501.2450, L100.0100, L500.2500 #### [facility] [address] [place], [address] Platelets (Bld) [#/Vol] 358 10*3/uL Normal 150-450 [facility] Comment on above: Performed By: #### L 500.3400, L501.2450, L100.0100, L500.2500 #### [facility] [address] [place], [address] RBC (Bld) [#/Vol] 4.84 10*6/uL Normal 4.2-5.4 [facility] Comment on above: Performed By: #### L 500.3400, L501.2450, L100.0100, L500.2500 #### [facility] [address] [place], [address] RDW SD 43.5 fl Normal 35.1-43.9 [facility] Comment on above: Performed By: #### L 500.3400, L501.2450, L100.0100, L500.2500 #### [facility] [address] [place], [address] WBC (Bld) [#/Vol] 7.1 10*3/uL Normal 4.4-11.[address] [facility] Comment on above: Performed By: #### L 500.3400, L501.2450, L100.0100, L500.2500 #### [facility] [address] [place], [address] Lipaseon 12-03-2024 Lipase [Catalytic activity/Vol] 55 U/L Normal 13-75 [facility] Comment on above: Result Comment: Ronen baeza note: LIPASE revised reference range effective 22. New Lipase methodology. Expected to produce lower values than the previous assay method. NEW Reference Range: 13 - 75 U/L Performed By: #### L 500.3400, L501.2450, L100.0100, L500.2500 #### [facility] [address] [place], [address] Liver Profileon 12-03-2024 Albumin [Mass/Vol] 4.5 g/dL Normal 3.5-5.[address] [facility] Comment on above: Performed By: #### L 500.3400, L501.2450, L100.0100, L500.2500 #### [facility] [address] [place], [address] ALK PHOS 72 U/L Normal 35-104 [facility] Comment on above: Performed By: #### L 500.3400, L501.2450, L100.0100, L500.2500 #### [facility] [address] [place], [address] ALT [Catalytic activity/Vol] 27 U/L Normal <=34 [facility] Comment on above: Performed By: #### L 500.3400, L501.2450, L100.0100, L500.2500 #### [facility] [address] [place], [address] AST [Catalytic activity/Vol] 37 U/L High <=31 [facility] Comment on above: Performed By: #### L 500.3400, L501.2450, L100.0100, L500.2500 #### [facility] [address] [place], [address] Bilirubin [Mass/Vol] 0.29 mg/dL Normal 0.00-1.30 [facility] Comment on above: Performed By: #### L 500.3400, L501.2450, L100.0100, L500.2500 #### [facility] [address] [place], [address] Bilirubin.direct [Mass/Vol] 0.15 mg/dL Normal 0.00-0.3 0 [facility] Comment on above: Performed By: #### L 500.3400, L501.2450, L100.0100, L500.2500 #### [facility] [address] [place], [address] Globulin (S) [Mass/Vol] 2.3 g/dL Normal 2.2-4.2 [facility] Comment on above: Performed By: #### L 500.3400, L501.2450, L100.0100, L500.2500 #### [facility] [address] [place], [address] T PROT 6.8 g/dL Normal 5.9-8.4 [facility] Comment on above: Performed By: #### L 500.3400, L501.2450, L100.0100, L500.2500 #### [facility] [address] [place], [address] ,Urineon 12-03-2024 Beta HCG ( test) Ql (U) Negative Normal [facility] Comment on above: Result Comment: Very dilute urine specimens, as indicated by a low specific gravity, may not contain patient representative levels of hCG. If is still suspected, a first morning urine specimen should be collected 48 hours later and tested. Performed By: #### L 400.7600, L400.0001 #### [facility] [address] [place], [address] Urinalysis, Completeon 12-03 BACTERIA 2+ /hpf Normal None Seen [facility] Comment on above: Order Comment: CLEAN CATCH Performed By: #### L 400.0001, L400.7600 #### [facility] [address] [place], [address] EPI,SQUAMOUS 10-25 SEEN Normal 5-10 [facility] Comment on above: Order Comment: CLEAN CATCH Performed By: #### L 400.0001, L400.7600 #### [facility] [address] [place], [address] Mucus Ql (Urine sed) RARE Normal [facility] Comment on above: Order Comment: CLEAN CATCH Performed By: #### L 400.0001, L400.7600 #### [facility] [address] [place], [address] WBC 0-5 SEEN Normal 0-5 [facility] Comment on above: Order Comment: CLEAN CATCH Performed By: #### L 400.0001, L400.7600 #### [facility] [address] [place], [address] RBC 0 SEEN Normal 0-5 [facility] Comment on above: Order Comment: CLEAN CATCH Performed By: #### L 400.0001, L400.7600 #### [facility] [address] [place], [address] [facility] Telephone (INTWS) LIUDMILA WORLEY ([id number]) 1985 F Date Time Provider Department 11/09/24 MENA VERNON INTMWS During your visit today, [...] Status:Closed by EDELMIRA BAUGH on 11/09/24 Normal [facility] Absolute lymphocyte countOrd ered By: Sergio Mcfarland on 08-10-2024 Lymphocytes Auto (Unsp spec) [#/Vol] 1.20 10*3/uL 0.83-4.51 [facility] Absolute neutrophil countOrd ered By: Sergiomarissa Mcfarland on 08-10-2024 Neutrophils (Bld) [#/Vol] 2.9 10*3/uL 2.0-7.7 [facility] Anion gap in Serum or Plasma Ordered By: Sergio Mcfarland on 08-10-2024 Anion gap [Moles/Vol] 9 mmol/L 5-15 [facility] Automated lymphocyte count a s percentage of total leukocytesOrdered By: Sergiowilliam Mcfarland on 08-10-2024 Lymphocytes/100 WBC Auto (Unsp spec) 25.5 % 19-41 [facility] BUN/creatinine ratioOrdered By: Sergiowilliam Mcfarland on 08-10-2024 Urea nitrogen/Creatinine [Mass ratio] 16.5 mg/mg 10-20 [facility] Basophil percentageOrdered B y: Sergio Mcfarland on 08-10-2024 Basophils/100 WBC (Bld) 0.6 % 0-1 [facility] Bilirubin, totalOrdered By: Sergiowilliam Mcfarland on 08-10-2024 Bilirubin [Mass/Vol] 0.39 mg/dL 0.00-1.30 [facility] CBC W/Diff, Automatedon Absolute Lymph 1.20 X10 3/uL Normal 0.83-4.51 [facility] Comment on above: Performed By: #### L 500.3400, L501.2450, L100.0100, L500.2500 #### [facility] [address] [place], [address] Absolute Neut 2.9 X10 3/uL Normal 2.0-7.7 [facility] Comment on above: Performed By: #### L 500.3400, L501.2450, L100.0100, L500.2500 #### [facility] [address] [place], [address] Basophils/100 WBC (Bld) 0.6 % Normal 0-1 [facility] Comment on above: Performed By: #### L 500.3400, L501.2450, L100.0100, L500.2500 #### [facility] [address] [place], [address] Eosinophils/100 WBC (Bld) 2.3 % Normal 0-5 [facility] Comment on above: Performed By: #### L 500.3400, L501.2450, L100.0100, L500.2500 #### [facility] [address] [place], [address] Erythrocyte distribution width (RBC) [Ratio] 15.5 % High 11.6-14.6 [facility] Comment on above: Performed By: #### L 500.3400, L501.2450, L100.0100, L500.2500 #### [facility] [address] [place], [address] Hematocrit (Bld) [Volume fraction] 37.0 % Normal 37-47 [facility] Comment on above: Performed By: #### L 500.3400, L501.2450, L100.0100, L500.2500 #### [facility] [address] [place], [address] Hemoglobin (Bld) [Mass/Vol] 12.1 g/dL Normal 12.0-15. 0 [facility] Comment on above: Performed By: #### L 500.3400, L501.2450, L100.0100, L500.2500 #### [facility] [address] [place], [address] IG% 0.200 Normal 0.0-0.9 [facility] Comment on above: Result Comment: IG% - Immature Granulocytes (promyelocytes, myelocytes and metamyelocytes) > 1% indicates that a LEFT SHIFT is Present. Performed By: #### L 500.3400, L501.2450, L100.0100, L500.2500 #### [facility] [address] [place], [address] Lymphocytes/100 WBC (Bld) 25.5 % Normal 19-41 [facility] Comment on above: Performed By: #### L 500.3400, L501.2450, L100.0100, L500.2500 #### [facility] [address] [place], [address] MCH (RBC) [Entitic mass] 25.9 pg Low 27.0-32.0 [facility] Comment on above: Performed By: #### L 500.3400, L501.2450, L100.0100, L500.2500 #### [facility] [address] [place], [address] MCHC (RBC) [Mass/Vol] 32.7 g/dL Normal 32-36 [facility] Comment on above: Performed By: #### L 500.3400, L501.2450, L100.0100, L500.2500 #### [facility] [address] [place], [address] MCV (RBC) [Entitic vol] 79.1 fL Low 81-99 [facility] Comment on above: Performed By: #### L 500.3400, L501.2450, L100.0100, L500.2500 #### [facility] [address] [place], [address] Monocytes/100 WBC (Bld) 10.6 % High 0-10 [facility] Comment on above: Performed By: #### L 500.3400, L501.2450, L100.0100, L500.2500 #### [facility] [address] [place], [address] Neutrophils/100 WBC (Bld) 60.8 % Normal 47-70 [facility] Comment on above: Performed By: #### L 500.3400, L501.2450, L100.0100, L500.2500 #### [facility] [address] [place], [address] Nucleated RBC (Bld) [#/Vol] 0 10*3/uL Normal 0-5 [facility] Comment on above: Performed By: #### L 500.3400, L501.2450, L100.0100, L500.2500 #### [facility] [address] [place], [address] Platelet mean volume (Bld) [Entitic vol] 9.9 fL Normal 6.2-12.0 [facility] Comment on above: Performed By: #### L 500.3400, L501.2450, L100.0100, L500.2500 #### [facility] [address] [place], [address] Platelets (Bld) [#/Vol] 334 10*3/uL Normal 150-450 [facility] Comment on above: Performed By: #### L 500.3400, L501.2450, L100.0100, L500.2500 #### [facility] [address] [place], [address] RBC (Bld) [#/Vol] 4.68 10*6/uL Normal 4.2-5.4 [facility] Comment on above: Performed By: #### L 500.3400, L501.2450, L100.0100, L500.2500 #### [facility] [address] [place], [address] RDW SD 44.4 fl High 35.1-43.9 [facility] Comment on above: Performed By: #### L 500.3400, L501.2450, L100.0100, L500.2500 #### [facility] [address] [place], [address] WBC (Bld) [#/Vol] 4.7 10*3/uL Normal 4.4-11.[address] [facility] Comment on above: Performed By: #### L 500.3400, L501.2450, L100.0100, L500.2500 #### [facility] [address] [place], [address] CRPon 08-10-2024 C-REACTIVE PROT 3.64 mg/L High 0.0-3.0 [facility] Comment on above: Performed By: #### L 500.3400, L501.2450, L100.0100, L500.2500 #### [facility] [address] [place], [address] Carbon dioxide, total [Moles /volume] in Central venous bloodOrdered By: Sergio Friend on 08-10-2024 CO2 [Moles/Vol] 23.7 mmol/L 21.0-32.0 [facility] Chloride assayOrdered By: Ra nila Mcfarland on 08-10-2024 Chloride [Moles/Vol] 105 mmol/L 98-108 [facility] Comprehensive Metabolic Prof ilon 08-10-2024 Albumin [Mass/Vol] 4.5 g/dL Normal 3.5-5.[address] [facility] Comment on above: Performed By: #### L 500.3400, L501.2450, L100.0100, L500.2500 #### [facility] [address] [place], [address] Albumin/Globulin [Mass ratio] 1.7 {ratio} Normal 0.9-2.4 [facility] [facility] Comment on above: Performed By: #### L 500.3400, L501.2450, L100.0100, L500.2500 #### [facility] [address] [place], [address] ALK PHOS 88 U/L Normal 35-104 [facility] Comment on above: Performed By: #### L 500.3400, L501.2450, L100.0100, L500.2500 #### [facility] [address] [place], [address] ALT [Catalytic activity/Vol] 15 U/L Normal <=34 [facility] Comment on above: Performed By: #### L 500.3400, L501.2450, L100.0100, L500.2500 #### [facility] [address] [place], [address] AST [Catalytic activity/Vol] 18 U/L Normal <=31 [facility] Comment on above: Performed By: #### L 500.3400, L501.2450, L100.0100, L500.2500 #### [facility] [address] [place], [address] Bilirubin [Mass/Vol] 0.39 mg/dL Normal 0.00-1.30 [facility] Comment on above: Performed By: #### L 500.3400, L501.2450, L100.0100, L500.2500 #### [facility] [address] [place], [address] BUN/CRE 16.5 RATIO Normal 10-20 [facility] Comment on above: Performed By: #### L 500.3400, L501.2450, L100.0100, L500.2500 #### [facility] [address] [place], [address] Calcium [Mass/Vol] 9.2 mg/dL Normal 7.6-11.[address] [facility] Comment on above: Performed By: #### L 500.3400, L501.2450, L100.0100, L500.2500 #### [facility] [address] [place], [address] Chloride [Moles/Vol] 105 mmol/L Normal 98-108 [facility] Comment on above: Performed By: #### L 500.3400, L501.2450, L100.0100, L500.2500 #### [facility] [address] [place], [address] CO2 [Moles/Vol] 23.7 mmol/L Normal 21.0-32.0 [facility] Comment on above: Performed By: #### L 500.3400, L501.2450, L100.0100, L500.2500 #### [facility] [address] [place], [address] Creatinine [Mass/Vol] 0.60 mg/dL Low 0.70-1.20 [facility] Comment on above: Performed By: #### L 500.3400, L501.2450, L100.0100, L500.2500 #### [facility] [address] [place], [address] GAP 9 Normal 5-15 [facility] Comment on above: Performed By: #### L 500.3400, L501.2450, L100.0100, L500.2500 #### [facility] [address] [place], [address] GFR/1.73 sq M.predicted among non-blacks MDRD (S/P/Bld) [Vol rate/Area] 119 mL/min/{1.73_m2} Normal >60 [facility] Comment on above: Result Comment: mL/m in/1.73m2 CKD-EPI Creatinine Equation (2020) Performed By: #### L 500.3400, L501.2450, L100.0100, L500.2500 #### [facility] [address] [place], [address] Globulin (S) [Mass/Vol] 2.6 g/dL Normal 2.2-4.2 [facility] Comment on above: Performed By: #### L 500.3400, L501.2450, L100.0100, L500.2500 #### [facility] [address] [place], [address] Glucose [Mass/Vol] 94 mg/dL Normal 70-[address] [facility] Comment on above: Performed By: #### L 500.3400, L501.2450, L100.0100, L500.2500 #### [facility] [address] [place], [address] Potassium [Moles/Vol] 4.4 mmol/L Normal 3.3-5.1 [facility] Comment on above: Performed By: #### L 500.3400, L501.2450, L100.0100, L500.2500 #### [facility] [address] [place], [address] Sodium [Moles/Vol] 137 mmol/L Normal 133-[address] [facility] Comment on above: Performed By: #### L 500.3400, L501.2450, L100.0100, L500.2500 #### [facility] [address] [place], [address] T PROT 7.1 g/dL Normal 5.9-8.4 [facility] Comment on above: Performed By: #### L 500.3400, L501.2450, L100.0100, L500.2500 #### [facility] [address] [place], [address] Urea nitrogen [Mass/Vol] 10 mg/dL Normal 4-19 [facility] Comment on above: Performed By: #### L 500.3400, L501.2450, L100.0100, L500.2500 #### [facility] [address] [place], [address] Eosinophil percentageOrdered By: Sergio Mcfarland on 08-10-2024 Eosinophils/100 WBC (Bld) 2.3 % 0-5 [facility] Erythrocyte Sed Rateon 08-10 SED RATE 6 mm/hr Normal 0-30 [facility] Comment on above: Performed By: #### L 500.3400, L501.2450, L100.0100, L500.2500 #### [facility] [address] [place], [place], [address] Erythrocyte distribution wid th ratioOrdered By: Sergio Mcfarland on 08-10-2024 Erythrocyte distribution width (RBC) [Ratio] 15.5 % High 11.6-14.6 [facility] Erythrocyte distribution wid th standard deviationOrdered By: Sergio Mcfarland on 08-10-2024 Erythrocyte distribution width (RBC) [Ratio] 44.4 fl High 35.1-43.9 [facility] Erythrocyte sedimentation ra teOrdered By: Sergio Mcfarland on 08-10-2024 ESR (Bld) [Velocity] 6 mm/h 0-30 [facility] Gastroenterology Visit Repor ton 08-10-2024 Gastroenterology Visit Report [facility] [address] [place] [address] OFFICE VISIT Date of Service: 08/10/24 MR#: [id number] Acct: [id number] Name: RUDYLIUDMILA MARQUIS Rep #: [id number] : 1985 Provider: Sergio Mcfarland DO Age/Sex: 38/F Location: [facility] [place] Status: Signed Intake Vital Signs 07/05/24 [...] mg PO DAILY 07/04/24 08/10/24 Hi story [facility] Medical History Wears glasses Depression Anxiety Alcohol [...] the office today for hospital follow up. [facility] hospitalization 4..25 - 4.25 abd pain - GI consulted for acute cholecystitis gall bladder US 4..25 Cholelithiasis without sonographic evidence of acute cholecystitis. abd/pelvis CT 4..25 Nondistended gallbladder with appearance of edema, gallbladder [...] is a 38-year-old female who presented to [facility] ED on 07/04/2024 with RUQ abdominal [...] LFTs R79.89 (more content not included)... Normal [facility] Glomerular filtration rate ( GFR) estimation/1.73 sq m using serum, plasma, or whole bOrdered By: Sergio Mcfarland on 08-10-2024 GFR/1.73 sq M.predicted among non-blacks MDRD (S/P/Bld) [Vol rate/Area] 119 mL/min/{1.73_m2} >60 [facility] Comment on above: mL/min/1.73m2 CKD-EP I Creatinine Equation (2020) Hematocrit Auto (Bld) [Volum e fraction]Ordered By: Sergio Mcfarland on 08-10-2024 Hematocrit (Bld) [Volume fraction] 37.0 % 37-47 [facility] Hemoglobin measurementOrdere d By: Sergio Mcfarland on 08-10-2024 Hemoglobin (Bld) [Mass/Vol] 12.1 g/dL 12.0-15. 0 [facility] Immature granulocytes/100 WB C Auto (Bld)Ordered By: Sergio Mcfarland on 08-10-2024 Immature granulocytes/100 WBC (Bld) 0.200 % 0.0-0.9 [facility] Comment on above: IG% - Immature Granu locytes (promyelocytes, myelocytes and metamyelocytes) > 1% indicates that a LEFT SHIFT is Present. Laboratory - Chemistry and C hemistry - challengeOrdered By: Sergio Mcfarland on 08-10-2024 AST [Catalytic activity/Vol] 18 U/L <32 [facility] MCV (mean corpuscular volume ) determinationOrdered By: Sergio Mcfarland on 08-10-2024 MCV (RBC) [Entitic vol] 79.1 fL Low 81-99 [facility] Mean corpuscular hemoglobin (MCH) determinationOrdered By: Sergio Mcfarland on 08-10-2024 MCH (RBC) [Entitic mass] 25.9 pg Low 27.0-32.0 [facility] Mean corpuscular hemoglobin concentration (MCHC) determinationOrdered By: Sergio Mcfarland on 08-10-2024 MCHC (RBC) [Mass/Vol] 32.7 g/dL 32-36 [facility] Mean platelet volume determi nationOrdered By: Sergio Mcfarland on 08-10-2024 Platelet mean volume (Bld) [Entitic vol] 9.9 fL 6.2-12.0 [facility] Monocyte percentageOrdered B y: Sergio Mcfarland on 08-10-2024 Monocytes/100 WBC (Bld) 10.6 % High 0-10 [facility] Neutrophil percentageOrdered By: Sergio Mcfarland on 08-10-2024 Neutrophils/100 WBC (Bld) 60.8 % 47-70 [facility] Nucleated red blood cell per centageOrdered By: Sergio Mcfarland on 08-10-2024 Nucleated RBC/100 WBC (Bld) [Ratio] 0 % 0-5 [facility] Platelet countOrdered By: Ra nila Mcfarland on 08-10-2024 Platelets (Bld) [#/Vol] 334 10*3/uL 150-450 [facility] Potassium measurement (mass/ volume)Ordered By: Sergio Mcfarland on 08-10-2024 Potassium (Unsp spec) [Mass/Vol] 4.4 mmol/L 3.3-5.1 [facility] RBC Auto (Bld) [#/Vol]Ordere d By: Sergio Mcfarland on 08-10-2024 RBC (Bld) [#/Vol] 4.68 10*6/uL 4.2-5.4 [facility] Serum creatinine measurement (mass/volume)Ordered By: Sergio Mcfarland on 08-10-2024 Creatinine [Mass/Vol] 0.60 mg/dL Low 0.70-1.20 [facility] Serum globulin measurementOr dered By: Sergio Mcfarland on 08-10-2024 Globulin (S) [Mass/Vol] 2.6 g/dL 2.2-4.2 [facility] Serum glucose measurement (m ass/volume)Ordered By: Sergio Mcfarland on 08-10-2024 Glucose [Mass/Vol] 94 mg/dL 70-[address] [facility] Serum or plasma C reactive p rotein measurement (mass/volume)Ordered By: Sergio Mcfarland on 08-10-2024 CRP [Mass/Vol] 3.64 mg/L High 0.0-3.0 [facility] Serum or plasma alanine wilde otransferase (ALT) measurementOrdered By: Sergio Mcfarland on 08-10-2024 ALT [Catalytic activity/Vol] 15 U/L <35 [facility] Serum or plasma albumin brian urement (mass/volume)Ordered By: Sergio Mcfarland on 08-10-2024 Albumin [Mass/Vol] 4.5 g/dL 3.5-5.[address] [facility] Serum or plasma albumin/glob ulin mass ratioOrdered By: Sergio Mcfarland on 08-10-2024 Albumin/Globulin [Mass ratio] 1.7 {ratio} 0.9-2.4 [facility] Serum or plasma alkaline eduardo sphatase measurementOrdered By: Sergio Mcfarland on 08-10-2024 ALP [Catalytic activity/Vol] 88 U/L 35-104 [facility] Serum or plasma calcium brian urement (mass/volume)Ordered By: Sergio Mcfarland on 08-10-2024 Calcium [Mass/Vol] 9.2 mg/dL 7.6-11.[address] [facility] Serum or plasma urea nitroge n measurement (mass/volume)Ordered By: Sergio Mcfarland on 08-10-2024 Urea nitrogen [Mass/Vol] 10 mg/dL 4-19 [facility] Sodium levelOrdered By: Caleb ann Friend on 08-10-2024 Sodium [Moles/Vol] 137 mmol/L 133-[address] [facility] Total proteinOrdered By: Edgard prescott Friend on 08-10-2024 Protein [Mass/Vol] 7.1 g/dL 5.9-8.[address] [facility] White blood cell (WBC) count Ordered By: Sergio Mcfarland on 08-10-2024 WBC (Bld) [#/Vol] 4.7 10*3/uL 4.4-11.0 [facility] 07-23-2024 DELMA Telephone (AGGENS4) LIUDMILA WORLEY ([id number]) 1985 F Date Time Provider Department 07/23/24 [...] Encounter Status:Closed by KAMRON HORTON on 07/23/24 [facility] CNOVon 07-21-2024 CNOV Office Visit (OBGYWM ) MEIRLIUDMILA ([id number]) 1985 F Date Time Provider Department 07/21/24 [...] wasn't her gallbladder. . 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 As applicable, any other physician, advance practice provider, medical student, or other health professional student that will be observing or involved in the sensitive examination for educational or training purposes was discussed with the Patient or Authorized Railroad Watchman. The Patient or Authorized Railroad Watchman has agreed to proceed with the sensitive [...] external genitalia normal, normal Bartholin's glands, urethra, Ke[place]e's glands, no vulvar lesions, no cervical lesions, [...] human papillomavir (more content not included)... Normal [facility] HIGH RISK HUMAN PAPILLOMA ANGEL (HPV), PCR FOR DETECTION AND GENOTYPINGon 07-21-2024 HPV 16 Ag Ql (Unsp spec) Not detected Normal Not detected [facility] Comment on above: Order Comment: Speci men Type: BLOOD SPECIMEN Ordering Facility: [facility] Address: [address] [place] [address] Performed By: #### 2 4331-1, 2276-4, 33938-7, 84844-9 #### [facility] CLIA [id number] [address] [place] [address] [place] [address] [place] HPV 18 Ag Ql (Unsp spec) Not detected Normal Not detected [facility] Comment on above: Order Comment: Speci men Type: BLOOD SPECIMEN Ordering Facility: [facility] Address: [address] [place] [address] Performed By: #### 2 4331-1, 2276-4, 62436-9, 04493-4 #### [facility] CLIA [id number] [address] [place] [address] [place] HPV 31+33+35+39+45+51+52+56+58+ 59+66+68 DNA DAVID+probe Ql (Cvx) Not detected Normal Not detected [facility] Comment on above: Order Comment: Speci men Type: BLOOD SPECIMEN Ordering Facility: [facility] Address: [address] [place] [address] Result Comment: High Risk HPV Other Type includes HPV types 31, 33, 35, 39, 45, 51, 52, 56, 58, 59, 66 and 68. Performed By: #### 2 4331-1, 2276-4, 06558-5, 96824-9 #### [facility] CLIA [id number] [address] [place] [address] [place] PAP TESTon 07-21-2024 ADEQUACY Normal [facility] Comment on above: Order Comment: Speci men Type: FLUID SPECIMEN Ordering Facility: [facility] Address: [address] [place] [address] Result Comment: Sati sfactory for interpretation. Transformation zone present Performed By: #### L [id number] #### [facility] CLIA [id number] [address] [place] [address] [place] CASE REPORT Normal [facility] Comment on above: Order Comment: Speci men Type: FLUID SPECIMEN Ordering Facility: [facility] Address: [address] [place] [address] Result Comment: Gyne cologic Cytology Report Case: [id number] Authorizing Provider: Jaylan Syed MD Collected: 07/21/2024 04:42 PM Ordering Location: OB/Gynecology Received: 07/22/2024 11:56 AM First Screen: Heard, [place], CT, ASCP Specimen: Pap Test, ThinPrep, Cervix Performed By: #### L [id number] #### [facility] CLIA [id number] [address] [place] [address] [place] CLINICAL HISTORY, CYTOLOGY, CASINO FLOORPERSON Routine Exam Normal [facility] Comment on above: Order Comment: Speci men Type: FLUID SPECIMEN Ordering Facility: [facility] Address: [address] [place] [address] Performed By: #### L [id number] #### [facility] CLIA [id number] [address] [place], [place] [id number] [place] [facility] Normal [facility] Comment on above: Order Comment: Speci men Type: FLUID SPECIMEN Ordering Facility: [facility] Address: [address] [place] [address] Result Comment: Tech nical component, internal control manager screening performed at: [facility], [address] [place] [address] CLIA: [id number] Diagnostic interpretation performed at: [facility], [address] [place] [address] CLIA# [id number] Roll Grinder: Santo Rudd MD Performed By: #### L [id number] #### [facility] CLIA [id number] [address] [place] [address] [place] INTERPRETATION, CYTOLOGY, CASINO FLOORPERSON Normal [facility] Comment on above: Order Comment: Speci men Type: FLUID SPECIMEN Ordering Facility: [facility] Address: [address] [place] [address] Result Comment: Nega tive for intraepithelial lesion or malignancy. at 1358 EDT Performed By: #### L [id number] #### [facility] CLIA [id number] [address] [place], [place] [address] [place] LMP 07/16/2024 Normal [facility] Comment on above: Order Comment: Speci men Type: FLUID SPECIMEN Ordering Facility: [facility] Address: [address] [place] [address] Performed By: #### L [id number] #### [facility] CLIA [id number] [address] [place] [address] [place] PAP DISCLAIMER COMMENT The Pap Smear is a screening test for cervical cancer. False negative results occur with all screening tests, emphasizing the need for rescreening at recommended intervals, and clinical correlation. Normal [facility] Comment on above: Order Comment: Speci men Type: FLUID SPECIMEN Ordering Facility: [facility] Address: [address] [place] [address] Performed By: #### L [id number] #### [facility] CLIA [id number] [address] [place] [address] [place] PAP PARK MAINTENANCE TECHNICIAN COMMENT This specimen has been analyzed by the FDA-approved Internet Gold - Golden Lines System, which uses digital imaging and an enhanced artificial intelligence image analysis algorithm to identify lux of interest on the microscopic slide, to assist the upholstery trimmer and pathologist in evaluating cells on ThinPrep Pap tests. Following analysis, lux of interest on the microscopic slide selected by the algorithm are reviewed by a upholstery trimmer. If a sample requires hierarchical review, the pathologist will review the same lux of interest selected by the algorithm prior to final interpretation. Normal [facility] Comment on above: Order Comment: Speci men Type: FLUID SPECIMEN Ordering Facility: [facility] Address: [address] [place] [address] Performed By: #### L [id number] #### [facility] CLIA [id number] [address] [place] [address] [place] Bilirubin directOrdered By: Tristen Harrison on 07-12-2024 Bilirubin.direct [Mass/Vol] 0.10 mg/dL 0.00-0.3 0 [facility] Bilirubin, totalOrdered By: Tristen Harrison on 07-12-2024 Bilirubin [Mass/Vol] 0.16 mg/dL 0.00-1.30 [facility] - Chemistry and C hemistry - challengeOrdered By: Tristen Harrison on 07-12-2024 AST [Catalytic activity/Vol] 24 U/L <32 [facility] Liver Profileon 07-12-2024 Albumin [Mass/Vol] 4.5 g/dL Normal 3.5-5.[address] [facility] Comment on above: Performed By: #### L 400.7600, L400.0001 #### [facility] [address] [place], [address] ALK PHOS 143 U/L High 35-104 [facility] Comment on above: Performed By: #### L 400.7600, L400.0001 #### [facility] [address] [place], [address] ALT [Catalytic activity/Vol] 113 U/L High <=34 [facility] Comment on above: Performed By: #### L 400.7600, L400.0001 #### [facility] [address] [place], [address] AST [Catalytic activity/Vol] 24 U/L Normal <=31 [facility] Comment on above: Performed By: #### L 400.7600, L400.0001 #### [facility] [address] [place], [address] Bilirubin [Mass/Vol] 0.16 mg/dL Normal 0.00-1.30 [facility] Comment on above: Performed By: #### L 400.7600, L400.0001 #### [facility] [address] [place], [address] Bilirubin.direct [Mass/Vol] 0.10 mg/dL Normal 0.00-0.3 0 [facility] Comment on above: Performed By: #### L 400.7600, L400.0001 #### [facility] [address] [place], [address] Globulin (S) [Mass/Vol] 3.0 g/dL Normal 2.2-4.2 [facility] Comment on above: Performed By: #### L 400.7600, L400.0001 #### [facility] [address] [place], [address] T PROT 7.5 g/dL Normal 5.9-8.4 [facility] Comment on above: Performed By: #### L 400.7600, L400.0001 #### [facility] [address] [place], [address] Serum globulin measurementOr dered By: Tristen Harrison on 07-12-2024 Globulin (S) [Mass/Vol] 3.0 g/dL 2.2-4.2 [facility] Serum or plasma alanine wilde otransferase (ALT) measurementOrdered By: Tristen Harrison on 07-12-2024 ALT [Catalytic activity/Vol] 113 U/L High <35 [facility] Serum or plasma albumin brian urement (mass/volume)Ordered By: Tristen Harrison on 07-12-2024 Albumin [Mass/Vol] 4.5 g/dL 3.5-5.[address] [facility] Serum or plasma alkaline eduardo sphatase measurementOrdered By: Tristen Harrison on 07-12-2024 ALP [Catalytic activity/Vol] 143 U/L High 35-104 [facility] Total proteinOrdered By: Jerilyn Harrison on 07-12-2024 Protein [Mass/Vol] 7.5 g/dL 5.9-8.[address] [facility] ANCAon 07-09-2024 Atypical pANCA <1:20 Normal Neg:<1:20 [facility] Comment on above: Result Comment: The atypical pANCA pattern has been observed in a significant percentage of patients with ulcerative colitis, primary sclerosing cholangitis and autoimmune hepatitis. Performed By: #### L 500.3400, L501.2450, L100.0100, L500.2500 #### [facility] [address] [place], [address] Cytoplasmic Ab <1:20 Normal Neg:<1:20 [facility] Comment on above: Performed By: #### L 500.3400, L501.2450, L100.0100, L500.2500 #### [facility] [address] [place], [address] Perinuclear Ab. <1:20 Normal Neg:<1:20 [facility] Comment on above: Result Comment: The presence of positive fluorescence exhibiting P-ANCA or C-ANCA patterns alone is not specific for the diagnosis of Salbador's Granulomatosis (WG) or microscopic polyangiitis. Decisions about treatment should not be based solely on ANCA IFA results. The International ANCA [employer] Consensus recommends follow up testing of positive sera with both CA- 3 and MPO-ANCA enzyme immunoassays. As many as 5% serum samples are positive only by EIA. Ref. AM J Clin Pathol 1999;111:507-513. Performed By: #### L 500.3400, L501.2450, L100.0100, L500.2500 #### [facility] [address] [place], [address] CMV Acute Antibody IgMon CMV Ab, IgM < 30.0 Normal 0.0-29.9 [facility] Comment on above: Result Comment: Nega tive <30.0 Equivocal 30.0 - 34.9 Positive >34.9 A positive result is generally indicative of acute infection, reactivation or persistent IgM production. Performed at: [facility] [address] [id number] Independent Living Specialist: Brett Jasso PhD, Phone: [phone] Performed at: [facility] [address] [id number] Independent Living Specialist: Renée Centeno MD, Phone: [phone] Performed By: #### L 500.3400, L501.2450, L100.0100, L500.2500 #### [facility] [address] [place], [address] Celiac AB,Comprehensiveon 05 -02-2025 IMMUNOGLOB A QN TNP Normal [facility] Comment on above: Performed By: #### L 500.3400, L501.2450, L100.0100, L500.2500 #### [facility] [address] [place], [place], [address] EBV Acute Prof IgG / IgMon 0 5- EB Ab VCA, IgG 599.0 U/mL High 0.0-17.9 [facility] Comment on above: Result Comment: Nega tive <18.0 Equivocal 18.0 - 21.9 Positive >21.9 Performed By: #### L 500.3400, L501.2450, L100.0100, L500.2500 #### [facility] [address] [place], [place], [address] EBV Ab VCA, IgM < 36.0 Normal 0.0-35.9 [facility] Comment on above: Result Comment: Nega tive <36.0 Equivocal 36.0 - 43.9 Positive >43.9 Performed By: #### L 500.3400, L501.2450, L100.0100, L500.2500 #### [facility] [address] [place], [place], [address] EBV NuAg Ab,IgG 564.0 U/mL High 0.0-17.9 [facility] Comment on above: Result Comment: Nega tive <18.0 Equivocal 18.0 - 21.9 Positive >21.9 Performed By: #### L 500.3400, L501.2450, L100.0100, L500.2500 #### [facility] [address] [place], [address] INTERPRETATION Comment Normal . [facility] Comment on above: Result Comment: EBV [...] antibodies to EBNA. Performed By: #### L 500.3400, L501.2450, L100.0100, L500.2500 #### [facility] [address] [place], [address] Hepatitis Panel Acuteon -0 HEP B CORE,IgM Negative Normal Negative [facility] Comment on above: Performed By: #### L 400.7600, L400.0001 #### [facility] [address] [place], [address] HEP B SURF AG Negative Normal Negative [facility] Comment on above: Performed By: #### L 400.7600, L400.0001 #### [facility] [address] [place], [address] HEP C VIRUS AB Non-Reactive Normal Non Reactive [facility] Comment on above: Performed By: #### L 400.7600, L400.0001 #### [facility] [address] [place], [address] HEPATITIS A-IgM Negative Normal Negative [facility] Comment on above: Result Comment: A ne gative anti-HAV IgM result suggests no recent or current HAV infection. Performed By: #### L 400.7600, L400.0001 #### [facility] [address] [place], [address] FABRIZIO + Protein Elect, Serumon 07-09-2024 IMMUNOGLOB G QN TNP Normal [facility] Comment on above: Performed By: #### L 500.3400, L501.2450, L100.0100, L500.2500 #### [facility] [address] [place], [address] IgG Subclasseson 07-09-2024 IgG, SUBCLASS 1 430 mg/dL Normal 248-810 [facility] Comment on above: Performed By: #### L 500.3400, L501.2450, L100.0100, L500.2500 #### [facility] [address] [place], [address] IgG, SUBCLASS 2 178 mg/dL Normal 130-555 [facility] Comment on above: Performed By: #### L 500.3400, L501.2450, L100.0100, L500.2500 #### [facility] [address] [place], [address] IgG, SUBCLASS 3 56 mg/dL Normal 15-102 [facility] Comment on above: Performed By: #### L 500.3400, L501.2450, L100.0100, L500.2500 #### [facility] [address] [place], [address] IgG, SUBCLASS 4 7 mg/dL Normal 2-96 [facility] Comment on above: Performed By: #### L 500.3400, L501.2450, L100.0100, L500.2500 #### [facility] [address] [place], [address] IGG,QUANT 787 mg/dL Normal 586-1602 [facility] Comment on above: Performed By: #### L 500.3400, L501.2450, L100.0100, L500.2500 #### [facility] [address] [place], [address] Immunoglobulins G/A/M/Cristopher IMMUNOGLOB E QN 5 IU/mL Low 6-495 [facility] Comment on above: Performed By: #### L 500.3400, L501.2450, L100.0100, L500.2500 #### [facility] [address] [place], [address] L2100.0000on 07-09-2024 ACCA 24 units Normal 0-90 [facility] Comment on above: Result Comment: Nega tive: <80 Equivocal: 80-90 Positive: >90 Performed By: #### L 400.7600, L400.0001 #### [facility] [address] [place], [address] ALCA 10 units Normal 0-60 [facility] Comment on above: Result Comment: Nega tive:<55 Equivocal: 55-60 Positive: >60 Performed By: #### L 400.7600, L400.0001 #### [facility] [address] [place], [address] AMCA 18 units Normal 0-100 [facility] Comment on above: Result Comment: Nega tive: <90 Equivocal: 90-100 Positive: >100 This test was developed and its performance characteristics determined by [employer]. It has not been cleared or approved by the Food and Drug Administration. The FDA has determined that such clearance or approval is not necessary. Performed By: #### L 400.7600, L400.0001 #### [facility] [address] [facility] [address] Atypical pANCA Negative Normal Negative [facility] Comment on above: Performed By: #### L 400.7600, L400.0001 #### [facility] [address] [facility] [address] COMMENT Comment Normal . [facility] Comment on above: Result Comment: Mandy sarah is not suggestive of Inflammatory Bowel Disease Performed By: #### L 400.7600, L400.0001 #### [facility] [address] [facility] [address] Result Comment: Not infected with HCV unless early or acute infection is suspected (which may be delayed in an immunocompromised individual), or other evidence exists to indicate HCV infection. Jesika 12 units Normal 0-50 [facility] Comment on above: Result Comment: Nega tive: <45 Equivocal: 45-50 Positive: >50 Performed By: #### L 400.7600, L400.0001 #### [facility] [address] [place], [address] Liver Profileon 07-07-2024 ALB Normal 3.5-5.0 [facility] Comment on above: Result Comment: Canc elled via OM: Order cancelled - Patient discharged Performed By: #### L 500.3400 #### [facility] [address] [place], [address] ALK PHOS Normal 35-104 [facility] Comment on above: Result Comment: Canc elled via OM: Order cancelled - Patient discharged Performed By: #### L 500.3400 #### [facility] [address] [place], [address] ALT Normal <=34 [facility] Comment on above: Result Comment: Canc elled via OM: Order cancelled - Patient discharged Performed By: #### L 500.3400 #### [facility] [address] [place], [address] AST Normal <=31 [facility] Comment on above: Result Comment: Canc elled via OM: Order cancelled - Patient discharged Performed By: #### L 500.3400 #### [facility] [address] [place], [address] D BILI Normal 0.00-0.30 [facility] Comment on above: Result Comment: Canc elled via OM: Order cancelled - Patient discharged Performed By: #### L 500.3400 #### [facility] [address] [place], [address] T BILI Normal 0.00-1.30 [facility] Comment on above: Result Comment: Canc elled via OM: Order cancelled - Patient discharged Performed By: #### L 500.3400 #### [facility] [address] [place], [address] T PROT Normal 5.9-8.4 [facility] Comment on above: Result Comment: Canc elled via OM: Order cancelled - Patient discharged Performed By: #### L 634.5839 #### [facility] [address] [place], [place], [address] Anti-Mitochondrial ABon 04-2 ANTIMITOCHON AB <20.0 Normal 0.0-20.0 [facility] Comment on above: Result Comment: Nega tive 0.0 - 20.0 Equivocal 20.1 - 24.9 Positive >24.9 Mitochondrial (M2) Antibodies are found in 90-96% of patients with primary biliary cirrhosis. Performed at: [address] [id number] Independent Living Specialist: Brett Jasso PhD, Phone: [phone] Performed By: #### L 423.3218, L400.0001 #### [facility] [address] [place], [address] Anti-Smooth Muscle ABSon ANTISMOOTH MUSC 11 Units Normal 0-19 [facility] Comment on above: Result Comment: Nega tive 0 - 19 Weak positive 20 - 30 Moderate to strong positive >30 Actin Antibodies are found in 52-85% of patients with autoimmune hepatitis or chronic active hepatitis and in 22% of patients with primary biliary cirrhosis. Performed at: [address] [id number] Independent Living Specialist: Brett Jasso PhD, Phone: [phone] Performed By: #### L 632.6614, L400.0001 #### [facility] [address] [place], [place], [address] L501.5101on 07-06-2024 GGTP 213 IU/L Abnormal 0-60 [facility] Comment on above: Result Comment: Perf ormed at: [address] [id number] Independent Living Specialist: Brett Jasso PhD, Phone: [phone] Performed By: #### L 501.5101 #### [facility] [address] [place], [address] Liver Profileon 07-06-2024 ALB Normal 3.5-5.0 [facility] Comment on above: Result Comment: Canc elled via OM: Order cancelled - Patient discharged Performed By: #### L 500.3400, L501.2450, L100.0100, L500.2500 #### [facility] [address] [place], [address] ALK PHOS Normal 35-104 [facility] Comment on above: Result Comment: Canc elled via OM: Order cancelled - Patient discharged Performed By: #### L 500.3400, L501.2450, L100.0100, L500.2500 #### [facility] [address] [place], [address] ALT Normal <=34 [facility] Comment on above: Result Comment: Canc elled via OM: Order cancelled - Patient discharged Performed By: #### L 500.3400, L501.2450, L100.0100, L500.2500 #### [facility] [address] [place], [address] AST Normal <=31 [facility] Comment on above: Result Comment: Canc elled via OM: Order cancelled - Patient discharged Performed By: #### L 500.3400, L501.2450, L100.0100, L500.2500 #### [facility] [address] [place], [address] D BILI Normal 0.00-0.30 [facility] Comment on above: Result Comment: Canc elled via OM: Order cancelled - Patient discharged Performed By: #### L 500.3400, L501.2450, L100.0100, L500.2500 #### [facility] [address] [place], [address] T BILI Normal 0.00-1.30 [facility] Comment on above: Result Comment: Canc elled via OM: Order cancelled - Patient discharged Performed By: #### L 500.3400, L501.2450, L100.0100, L500.2500 #### [facility] [address] [place], [address] T PROT Normal 5.9-8.4 [facility] Comment on above: Result Comment: Canc elled via OM: Order cancelled - Patient discharged Performed By: #### L 500.3400, L501.2450, L100.0100, L500.2500 #### [facility] [address] [place], [address] Abdomen/Pelvis W IV Cont ONL Yon 07-05-2024 Abdomen/Pelvis W IV Cont ONLY [facility] [address] [place] [address] Abdomen/Pelvis W IV Cont ONLY MR#: [id number] Acct: [id number] Name: LIUDMILA WORLEY Rep #: [id number] : 1985 F 38 From: Bernard Souza MD PCP: Dr. Mena Vernon MD Status: ADM IN Study: Abdomen/Pelvis W IV Cont ONLY Date of Exam: Exam# [id number] Ordering Dr: Sergio Mcfarland DO PROCEDURE: ABDOMEN/PELVIS [...] quadrant and pelvic free fluid. Reading Location: [id number] CC: Dr. 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 Anion gap in Serum or Plasma Ordered By: Juan Hdez on 07-05-2024 Anion gap [Moles/Vol] 8 mmol/L 5-15 [facility] Automated lymphocyte count a s percentage of total leukocytesOrdered By: Juan Hdez on 07-05-2024 Lymphocytes/100 WBC Auto (Unsp spec) 25.2 % 19-41 [facility] BUN/creatinine ratioOrdered By: Juan Hdez on 07-05-2024 Urea nitrogen/Creatinine [Mass ratio] 7.2 mg/mg Low 10-20 [facility] Basic Metabolic Profile (BMP )on 07-05-2024 BUN/CRE 7.2 RATIO Low 10-20 [facility] Comment on above: Performed By: #### L 500.3400, L501.2450, L100.0100, L500.2500 #### [facility] [address] [place], [address] Calcium [Mass/Vol] 8.3 mg/dL Normal 7.6-11.[address] [facility] Comment on above: Performed By: #### L 500.3400, L501.2450, L100.0100, L500.2500 #### [facility] [address] [place], [address] Chloride [Moles/Vol] 107 mmol/L Normal 98-108 [facility] Comment on above: Performed By: #### L 500.3400, L501.2450, L100.0100, L500.2500 #### [facility] [address] [place], [address] CO2 [Moles/Vol] 25.2 mmol/L Normal 21.0-32.0 [facility] Comment on above: Performed By: #### L 500.3400, L501.2450, L100.0100, L500.2500 #### [facility] [address] [place], [address] Creatinine [Mass/Vol] 0.51 mg/dL Low 0.70-1.20 [facility] Comment on above: Performed By: #### L 500.3400, L501.2450, L100.0100, L500.2500 #### [facility] [address] [place], [address] ECRCL 166.71 ml/min Normal 50-250 [facility] Comment on above: Performed By: #### L 500.3400, L501.2450, L100.0100, L500.2500 #### [facility] [address] [place], [address] GAP 8 Normal 5-15 [facility] Comment on above: Performed By: #### L 500.3400, L501.2450, L100.0100, L500.2500 #### [facility] [address] [place], [address] GFR/1.73 sq M.predicted among non-blacks MDRD (S/P/Bld) [Vol rate/Area] 124 mL/min/{1.73_m2} Normal >60 [facility] Comment on above: Result Comment: mL/m in/1.73m2 CKD-EPI Creatinine Equation (2020) Performed By: #### L 500.3400, L501.2450, L100.0100, L500.2500 #### [facility] [address] [place], [address] Glucose [Mass/Vol] 91 mg/dL Normal 70-[address] [facility] Comment on above: Performed By: #### L 500.3400, L501.2450, L100.0100, L500.2500 #### [facility] [address] [place], [address] Potassium [Moles/Vol] 3.8 mmol/L Normal 3.3-5.1 [facility] Comment on above: Performed By: #### L 500.3400, L501.2450, L100.0100, L500.2500 #### [facility] [address] [place], [address] Sodium [Moles/Vol] 140 mmol/L Normal 133-[address] [facility] Comment on above: Performed By: #### L 500.3400, L501.2450, L100.0100, L500.2500 #### [facility] [address] [place], [address] Urea nitrogen [Mass/Vol] 4 mg/dL Normal 4-19 [facility] Comment on above: Performed By: #### L 500.3400, L501.2450, L100.0100, L500.2500 #### [facility] [address] [place], [address] Basophil percentageOrdered B y: Juan Hdez on 07-05-2024 Basophils/100 WBC (Bld) 0.9 % 0-1 [facility] Bilirubin directOrdered By: Juan Hdez on 07-05-2024 Bilirubin.direct [Mass/Vol] 0.70 mg/dL High 0.00-0.3 0 [facility] Bilirubin, totalOrdered By: Juan Hdez on 07-05-2024 Bilirubin [Mass/Vol] 1.21 mg/dL 0.00-1.30 [facility] CBC W/Diff, Automatedon 06-09 Absolute Lymph 1.15 X10 3/uL Normal 0.83-4.51 [facility] Comment on above: Performed By: #### L 500.3400, L501.2450, L100.0100, L500.2500 #### [facility] [address] [place], [address] Absolute Neut 2.8 X10 3/uL Normal 2.0-7.7 [facility] Comment on above: Performed By: #### L 500.3400, L501.2450, L100.0100, L500.2500 #### [facility] [address] [place], [address] Basophils/100 WBC (Bld) 0.9 % Normal 0-1 [facility] Comment on above: Performed By: #### L 500.3400, L501.2450, L100.0100, L500.2500 #### [facility] [address] [place], [address] Eosinophils/100 WBC (Bld) 3.5 % Normal 0-5 [facility] Comment on above: Performed By: #### L 500.3400, L501.2450, L100.0100, L500.2500 #### [facility] [address] [place], [address] Erythrocyte distribution width (RBC) [Ratio] 16.0 % High 11.6-14.6 [facility] Comment on above: Performed By: #### L 500.3400, L501.2450, L100.0100, L500.2500 #### [facility] [address] [place], [address] Hematocrit (Bld) [Volume fraction] 33.4 % Low 37-47 [facility] Comment on above: Performed By: #### L 500.3400, L501.2450, L100.0100, L500.2500 #### [facility] [address] [place], [address] Hemoglobin (Bld) [Mass/Vol] 10.9 g/dL Low 12.0-15. 0 [facility] Comment on above: Performed By: #### L 500.3400, L501.2450, L100.0100, L500.2500 #### [facility] [address] [place], [address] IG% 0.200 Normal 0.0-0.9 [facility] Comment on above: Result Comment: IG% - Immature Granulocytes (promyelocytes, myelocytes and metamyelocytes) > 1% indicates that a LEFT SHIFT is Present. Performed By: #### L 500.3400, L501.2450, L100.0100, L500.2500 #### [facility] [address] [place], [address] Lymphocytes/100 WBC (Bld) 25.2 % Normal 19-41 [facility] Comment on above: Performed By: #### L 500.3400, L501.2450, L100.0100, L500.2500 #### [facility] [address] [place], [address] MCH (RBC) [Entitic mass] 25.6 pg Low 27.0-32.0 [facility] Comment on above: Performed By: #### L 500.3400, L501.2450, L100.0100, L500.2500 #### [facility] [address] [place], [address] MCHC (RBC) [Mass/Vol] 32.6 g/dL Normal 32-36 [facility] Comment on above: Performed By: #### L 500.3400, L501.2450, L100.0100, L500.2500 #### [facility] [address] [place], [address] MCV (RBC) [Entitic vol] 78.4 fL Low 81-99 [facility] Comment on above: Performed By: #### L 500.3400, L501.2450, L100.0100, L500.2500 #### [facility] [address] [place], [address] Monocytes/100 WBC (Bld) 9.9 % Normal 0-10 [facility] Comment on above: Performed By: #### L 500.3400, L501.2450, L100.0100, L500.2500 #### [facility] [address] [place], [address] Neutrophils/100 WBC (Bld) 60.3 % Normal 47-70 [facility] Comment on above: Performed By: #### L 500.3400, L501.2450, L100.0100, L500.2500 #### [facility] [address] [place], [address] Nucleated RBC (Bld) [#/Vol] 0 10*3/uL Normal 0-5 [facility] Comment on above: Performed By: #### L 500.3400, L501.2450, L100.0100, L500.2500 #### [facility] [address] [place], [address] Platelet mean volume (Bld) [Entitic vol] 10.0 fL Normal 6.2-12.0 [facility] Comment on above: Performed By: #### L 500.3400, L501.2450, L100.0100, L500.2500 #### [facility] [address] [place], [address] Platelets (Bld) [#/Vol] 282 10*3/uL Normal 150-450 [facility] Comment on above: Performed By: #### L 500.3400, L501.2450, L100.0100, L500.2500 #### [facility] [address] [place], [address] RBC (Bld) [#/Vol] 4.26 10*6/uL Normal 4.2-5.4 [facility] Comment on above: Performed By: #### L 500.3400, L501.2450, L100.0100, L500.2500 #### [facility] [address] [place], [address] RDW SD 46.1 fl High 35.1-43.9 [facility] Comment on above: Performed By: #### L 500.3400, L501.2450, L100.0100, L500.2500 #### [facility] [address] [place], [address] WBC (Bld) [#/Vol] 4.6 10*3/uL Normal 4.4-11.[address] [facility] Comment on above: Performed By: #### L 500.3400, L501.2450, L100.0100, L500.2500 #### [facility] [address] [place], [address] CRPon 07-05-2024 C-REACTIVE PROT 6.50 mg/L High 0.0-3.0 [facility] Comment on above: Performed By: #### L 400.7600, L400.0001 #### [facility] [address] [place], [address] CRP [Mass/Vol]Ordered By: Ra nila Mcfarland on 07-05-2024 C-Reactive Protein Extended Range 6.50 mg/L High 0.0-3.0 [facility] Calculated total iron bindin g capacityOrdered By: Sergio Mcfarland on 07-05-2024 Total Iron Binding Capacity 352 ug/dL 250-450 [facility] Carbon dioxide, total [Moles /volume] in Central venous bloodOrdered By: Juan Hdez on 07-05-2024 CO2 [Moles/Vol] 25.2 mmol/L 21.0-32.0 [facility] Chitobioside IgA antibody as sayOrdered By: Sergio Mcfarland on 07-05-2024 Chitobioside IgA IA Qn 24 units 0-90 [facility] Comment on above: Negative: <80 Equivo abelardo: 80-90 Positive: >90 Chloride assayOrdered By: Brian Hdez on 07-05-2024 Chloride [Moles/Vol] 107 mmol/L 98-108 [facility] Consultation - Surgicalon Consultation - Surgical [facility] Medical Records Department [address] [place] [address] Consultation - Surgical 07/05/24 0836 MR#: [id number] Acct: [id number] Name: LIUDMILA WORLEY Rep #: [id number] : 1985 38 From: Veronica Austin MD PCP: Dr. Mena Vernon MD Status:ADM IN Location: [place] [address] Assessment Plan Assessment/Plan (1) Cholelithiasis: (2) Elevated [...] be covering tomorrow. Veronica Austin M.D. Pager: [phone] [facility] [address] [place] [address], [facility], [address] [place] [id number] Office: [phone] HPI Consult Data Date of Consult: 07/05/24 [...] phos still remained mildly elevated at 191. [facility] Medical History Wears glasses Depression Anxiety Alcohol [...] HEENT normocepha (more content not included)... Normal [facility] Discharge Instructionon 06-09 Discharge Instruction [facility] Medical Records Department [address] [place] [address] Instructions for Home/Discharge Instructions 07/05/24 1332 MR#: [id number] Acct: [id number] Name: LIUDMILA WORLEY Rep #: [id number] : 1985 38 From: Tristen Harrison DO [...] Liver Profile (Routine) Timeframe: 5 Days Facility: [facility] - Location: Laboratory Ordered By: Dr. Tristen Harrison Referrals / Follow Up: Mena Vernon MD [Primary Care Provider] - Sergio Mcfarland DO [Med Staff - Active Staff] - Disposition Disposition (needs filled in before D/C Order can be placed): Home, Self Care 07/05/24 1425 Tristen Harrison DO CC: Dr. Mena Vernon MD; Dr. Juan Hdez MD; Dr. Veronica Austin MD Signed Normal [facility] Eosinophil percentageOrdered By: Juan Hdez on 07-05-2024 Eosinophils/100 WBC (Bld) 3.5 % 0-5 [facility] Erythrocyte Sed Rateon 07-05 SED RATE 9 mm/hr Normal 0-30 [facility] Comment on above: Performed By: #### L 400.7600, L400.0001 #### [facility] [address] [place], [address] Erythrocyte distribution wid th (RBC) [Ratio]Ordered By: Juan Hdez on 07-05-2024 Erythrocyte distribution width (RBC) [Entitic vol] 46.1 fL High 35.1-43.[address] [facility] Erythrocyte distribution wid th ratioOrdered By: Juan Hdez on 07-05-2024 Erythrocyte distribution width (RBC) [Ratio] 16.0 % High 11.6-14.6 [facility] Erythrocyte distribution wid th standard deviationOrdered By: Juan Hdez on 07-05-2024 Erythrocyte distribution width (RBC) [Ratio] 46.1 fl High 35.1-43.9 [facility] Erythrocyte sedimentation ra teOrdered By: Sergio Mcfarland on 07-05-2024 ESR (Bld) [Velocity] 9 mm/h 0-30 [facility] Estimation of creatinine jermain aranceOrdered By: Juan Hdez on 07-05-2024 Estimated Creatinine Clearance Calc 166.71 ml/min 50-250 [facility] Ferritinon 07-05-2024 Ferritin [Mass/Vol] 28 ng/mL Normal 22-378 [facility] Comment on above: Performed By: #### L 400.7600, L400.0001 #### [facility] [address] [place], [address] Ferritin [Mass/Vol] 23 ng/mL Normal 22-378 [facility] Comment on above: Performed By: #### L 500.3400, L501.2450, L100.0100, L500.2500 #### [facility] [address] [facility] [place], [address] GFR/1.73 sq M.predicted shala g non-blacks MDRD (S/P/Bld) [Vol rate/Area]Ordered By: Juan Hdez on 07-05-2024 Estimated GFR (MDRD) Non-Af Amer 124 >60 [facility] Comment on above: mL/min/1.73m2 CKD-EP I Creatinine Equation (2020) Glomerular filtration rate ( GFR) estimation/1.73 sq m using serum, plasma, or whole bOrdered By: Juan Hdez on 07-05-2024 GFR/1.73 sq M.predicted among non-blacks MDRD (S/P/Bld) [Vol rate/Area] 124 mL/min/{1.73_m2} >60 [facility] Comment on above: mL/min/1.73m2 CKD-EP I Creatinine Equation (2020) Hematocrit Auto (Bld) [Volum e fraction]Ordered By: Juan Hdez on 07-05-2024 Hematocrit (Bld) [Volume fraction] 33.4 % Low 37-47 [facility] Hemoglobin measurementOrdere d By: Juan Hdez on 07-05-2024 Hemoglobin (Bld) [Mass/Vol] 10.9 g/dL Low 12.0-15. 0 [facility] IgEOrdered By: Sergio valenzuela on 07-05-2024 IgE 5 IU/mL Low 6-495 [facility] Immature granulocytes/100 WB C Auto (Bld)Ordered By: Juan Hdez on 07-05-2024 Immature granulocytes/100 WBC (Bld) 0.200 % 0.0-0.9 [facility] Comment on above: IG% - Immature Granu locytes (promyelocytes, myelocytes and metamyelocytes) > 1% indicates that a LEFT SHIFT is Present. Interpretation of serum or p lasma protein pattern by immunofixation (narrative resultOrdered By: Sergio Mcfarland on 07-05-2024 Protein Fractions Immunofixation Kiran [Interp] Not Observed g/dL Not Observed [facility] Iron (Unsp spec) [Mass/Mass] Ordered By: Sergio Mcfarland on 07-05-2024 Iron [Mass/Vol] 258 ug/dL High 50-170 [facility] Iron measurement (mass/mass) Ordered By: Sergio Mcfarland on 07-05-2024 Iron (Unsp spec) [Mass/Mass] 258 ug/dL High 50-170 [facility] Iron saturation [Mass fracti on]Ordered By: Sergio Mcfarland on 07-05-2024 Iron Saturation 73.3 % High 13-59 [facility] Comment on above: Previous reported re sult: 73.0 %Edited by: BRENNA on 07/05/24:1215 AMENDED REPORT 07/05/24 1215 IRON SATURATION previously reported as: 73.0 H % Iron+Iron Binding Capacityon 07-05-2024 Iron [Mass/Vol] 258 ug/dL High 50-170 [facility] Comment on above: Performed By: #### L 400.7600, L400.0001 #### [facility] [address] [place], [address] UIBC 94 ug/dL Low 228-428 [facility] Comment on above: Performed By: #### L 400.7600, L400.0001 #### [facility] [address] [place], [address] Iron [Mass/Vol] 209 ug/dL High 50-170 [facility] Comment on above: Performed By: #### L 500.3400, L501.2450, L100.0100, L500.2500 #### [facility] [address] [place], [address] IRON SATURATION 66.0 High 13-59 [facility] Comment on above: Performed By: #### L 500.3400, L501.2450, L100.0100, L500.2500 #### [facility] [address] [place], [address] TIBC 316 ug/dL Normal 250-450 [facility] Comment on above: Performed By: #### L 500.3400, L501.2450, L100.0100, L500.2500 #### [facility] [address] [place], [address] UIBC 107 ug/dL Low 228-428 [facility] Comment on above: Performed By: #### L 500.3400, L501.2450, L100.0100, L500.2500 #### [facility] [address] [place], [address] Laboratory - Chemistry and C hemistry - challengeOrdered By: Juan Hdez on 07-05-2024 AST [Catalytic activity/Vol] 442 U/L High <32 [facility] - Miscellaneous t estsOrdered By: Sergio Mcfarland on 07-05-2024 Laboratory comment Kiran (Report) Comment . [facility] Comment on above: Pattern is not sugge stive of Inflammatory Bowel Disease Laminaribioside carbohydrate IgG antibody assayOrdered By: Sergio Mcfarland on 07-05-2024 Laminaribioside IgG IA Qn 10 units 0-60 [facility] Comment on above: Negative:<55 Equivoc al: 55-60 Positive: >60 Liver Profileon 07-05-2024 ALT [Catalytic activity/Vol] 726 U/L High <=34 [facility] Comment on above: Result Comment: AMENDED REPORT 07/05/24 0532 ALT previously reported as: 585 H U/L Performed By: #### L 500.3400, L501.2450, L100.0100, L500.2500 #### [facility] [address] [place], [address] Lymphocytes Auto (Unsp spec) [#/Vol]Ordered By: Juan Hdez on 07-05-2024 Lymphocytes (Bld) [#/Vol] 1.15 10*3/uL 0.83-4.5 1 [facility] Lymphocytes/100 WBC Auto (Un sp spec)Ordered By: Juan Hdez on 07-05-2024 Lymphocytes/100 WBC (Bld) 25.2 % 19-41 [facility] MCV (mean corpuscular volume ) determinationOrdered By: Juan Hdez on 07-05-2024 MCV (RBC) [Entitic vol] 78.4 fL Low 81-99 [facility] Mean corpuscular hemoglobin (MCH) determinationOrdered By: Juan Hdez on 07-05-2024 MCH (RBC) [Entitic mass] 25.6 pg Low 27.0-32.0 [facility] Mean corpuscular hemoglobin concentration (MCHC) determinationOrdered By: Juan Hdez on 07-05-2024 MCHC (RBC) [Mass/Vol] 32.6 g/dL 32-36 [facility] Mean platelet volume determi nationOrdered By: Juan Hdez on 07-05-2024 Platelet mean volume (Bld) [Entitic vol] 10.0 fL 6.2-12.0 [facility] Monocyte percentageOrdered B y: Juan Hdez on 07-05-2024 Monocytes/100 WBC (Bld) 9.9 % 0-10 [facility] Neutrophil percentageOrdered By: Juan Hdez on 07-05-2024 Neutrophils/100 WBC (Bld) 60.3 % 47-70 [facility] No Panel InformationOrdered By: Sergio Mcfarland on 07-05-2024 Addendum Document Comment . [facility] Comment on above: Protein electrophore sis scan will follow via computer,mail, or sales lead generator delivery. Hepatitis C Antibody Comment Comment . [facility] Comment on above: Not infected with HC V unless early or acute infection issuspected (which may be delayed in an immunocompromisedindividual), or other evidence exists to indicate HCVinfection. Tissue Transglutaminase IgG Ab 3 U/mL 0-5 [facility] Comment on above: Negative 0 - 5 Weak Positive 6 - 9 Positive >9 Unsaturated Iron Binding Capacity 94 ug/dL Low 228-428 [facility] Nucleated red blood cell per centageOrdered By: Juan Hdez on 07-05-2024 Nucleated RBC/100 WBC (Bld) [Ratio] 0 % 0-5 [facility] Platelet countOrdered By: Brian Hdez on 07-05-2024 Platelets (Bld) [#/Vol] 282 10*3/uL 150-450 [facility] Potassium (Unsp spec) [Mass/ Vol]Ordered By: Juan Hdez on 07-05-2024 Potassium [Moles/Vol] 3.8 mmol/L 3.3-5.1 [facility] Potassium measurement (mass/ volume)Ordered By: Juan Hdez on 07-05-2024 Potassium (Unsp spec) [Mass/Vol] 3.8 mmol/L 3.3-5.1 [facility] ,Urineon 07-05-2024 Beta HCG ( test) Ql (U) Negative Normal [facility] Comment on above: Order Comment: 411 Result Comment: Very dilute urine specimens, as indicated by a low specific gravity, may not contain patient representative levels of hCG. If is still suspected, a first morning urine specimen should be collected 48 hours later and tested. Performed By: #### L 500.3400, L501.2450, L100.0100, L500.2500 #### [facility] [place], [address] RBC Auto (Bld) [#/Vol]Ordere d By: Juan Hdez on 07-05-2024 RBC (Bld) [#/Vol] 4.26 10*6/uL 4.2-5.4 [facility] Serum Eboni Alcala virus cap harsha IgM antibody assay (units/volume)Ordered By: Sergio Mcfarland on 07-05-2024 EBV capsid IgM Qn (S) [arb'U]/mL 0.0-35.9 [facility] Comment on above: Negative <36.0 Equiv ocal 36.0 - 43.9 Positive >43.9 Serum Eboni Alcala virus nuc lear IgG antibody assay (units/volume)Ordered By: Sergio Mcfarland on 07-05-2024 EBV nuclear IgG Qn (S) 564.0 U/mL High 0.0-17.9 [facility] Comment on above: Negative <18.0 Equiv ocal 18.0 - 21.9 Positive >21.9 Serum IgG subclass 1 measure ment (mass/volume)Ordered By: Sergio Mcfarland on 07-05-2024 IgG subclass 1 (S) [Mass/Vol] 430 mg/dL 248-810 [facility] Serum IgG subclass 2 measure ment (mass/volume)Ordered By: Sergio Mcfarland on 07-05-2024 IgG subclass 2 (S) [Mass/Vol] 178 mg/dL 130-555 [facility] Serum IgG subclass 3 measure ment (mass/volume)Ordered By: Sergio Mcfarland on 07-05-2024 IgG subclass 3 (S) [Mass/Vol] 56 mg/dL 15-102 [facility] Serum classic neutrophil cyt oplasmic antibody assay (units/volume)Ordered By: Sergio Mcfarland on 07-05-2024 Neutrophil cytoplasmic Ab.classic Qn (S) <1:20 titer Neg:<1:20 [facility] Serum creatinine measurement (mass/volume)Ordered By: Juan Hdez on 07-05-2024 Creatinine [Mass/Vol] 0.51 mg/dL Low 0.70-1.20 [facility] Serum globulin measurementOr dered By: Juan Hdez on 07-05-2024 Globulin (S) [Mass/Vol] 2.5 g/dL 2.2-4.2 [facility] Serum globulin measurement ( mass/volume)Ordered By: Sergio Mcfarland on 07-05-2024 Globulin (S) [Mass/Vol] 2.5 g/dL 2.2-3.9 [facility] Serum glucose measurement (m ass/volume)Ordered By: Juan Hdez on 07-05-2024 Glucose [Mass/Vol] 91 mg/dL 70-[address] [facility] Serum mitochondria antibody detectionOrdered By: Sergio Mcfarland on 07-05-2024 Mitochondria Ab Ql (S) <20.0 Units 0.0-20.0 [facility] Comment on above: Negative 0.0 - 20.0 Equivocal 20.1 - 24.9 Positive >24.9Mitochondrial (M2) Antibodies are found in 90-96% ofpatients with primary biliary cirrhosis.Performed at: [facility] [id number] Director: Brett Jasso PhD, Phone: [phone] Serum or plasma C reactive p rotein measurement (mass/volume)Ordered By: Sergio Mcfarland on 07-05-2024 CRP [Mass/Vol] 6.50 mg/L High 0.0-3.0 [facility] Serum or plasma IgA measurem ent (mass/volume)Ordered By: Sergio Mcfarland on 07-05-2024 IgA [Mass/Vol] 106 mg/dL 87-352 [facility] Serum or plasma IgG measurem ent (mass/volume)Ordered By: Sergio Mcfarland on 07-05-2024 IgG [Mass/Vol] 787 mg/dL 586-1602 [facility] IgG [Mass/Vol] TNP [facility] Comment on above: Test not performed Serum or plasma actin IgG an tibody assay (units/volume)Ordered By: Sergio Mcfarland on 07-05-2024 Actin IgG Qn 11 Units 0-19 [facility] Comment on above: Negative 0 - 19 Weak positive 20 - 30 Moderate to strong positive >30 Actin Antibodies are found in 52-85% of patients with autoimmune hepatitis or chronic active hepatitis and in 22% of patients with primary biliary cirrhosis.Performed at: [facility] [id number] Director: Brett Jasso PhD, Phone: [phone] Serum or plasma alanine wilde otransferase (ALT) measurementOrdered By: Juan Hdez on 07-05-2024 ALT [Catalytic activity/Vol] 726 U/L High <35 [facility] Comment on above: Previous reported re sult: 585 U/LEdited by: AUTOINSandoval on 07/05/24:0532 AMENDED REPORT 07/05/24531 ALT previously reported as: 585 H U/L Serum or plasma albumin brian urement (mass/volume)Ordered By: Juan Hdez on 07-05-2024 Albumin [Mass/Vol] 3.6 g/dL 3.5-5.[address] [facility] Serum or plasma alkaline eduardo sphatase measurementOrdered By: Juan Hdez on 07-05-2024 ALP [Catalytic activity/Vol] 191 U/L High 35-104 [facility] Serum or plasma alpha 1 glob ulin measurement by electrophoresis (mass/volume)Ordered By: Sergio Mcfarland on 07-05-2024 Alpha 1 globulin Elph [Mass/Vol] 0.2 g/dL 0.0-0.4 [facility] Alpha 1 globulin Elph [Mass/Vol] 0.7 g/dL 0.4-1.0 [facility] Serum or plasma beta globuli n measurement by electrophoresis (mass/volume)Ordered By: Sergio Mcfarland on 07-05-2024 Beta globulin Elph [Mass/Vol] 0.8 g/dL 0.7-1.3 [facility] Serum or plasma calcium brian urement (mass/volume)Ordered By: Juan Hdez on 07-05-2024 Calcium [Mass/Vol] 8.3 mg/dL 7.6-11.[address] [facility] Serum or plasma cytomegalovi angel (CMV) IgM antibody assay (units/volume)Ordered By: Sergio Mcfarland on 07-05-2024 CMV IgM Qn < 30.0 AU/mL 0.0-29.9 [facility] Comment on above: Negative <30.0 Equiv ocal 30.0 - 34.9 Positive >34.9A positive result is generally indicative of acuteinfection, reactivation or persistent IgM production.Performed at: - [address] [id number] Director: Brett Jasso PhD, Phone: [phone] at: [facility] [id number] Director: Renée Centeno MD, Phone: [phone] Serum or plasma ferritin kenji surement (mass/volume)Ordered By: Sergio Mcfarland on 07-05-2024 Ferritin [Mass/Vol] 28 ng/mL 22-378 [facility] Serum or plasma gamma globul in measurement by electrophoresis (mass/volume)Ordered By: Sergio Mcfarland on 07-05-2024 Gamma globulin Elph [Mass/Vol] 0.8 g/dL 0.4-1.8 [facility] Serum or plasma hepatitis B virus surface antigen detection by immunoassayOrdered By: Sergio Mcfarland on 07-05-2024 HBV surface Ag IA Ql Negative Negative [facility] Serum or plasma immunoelectr ophoresis interpretation (nominal result)Ordered By: Sergio Mcfarland on 07-05-2024 Interpretation IEP [Interp] Comment . [facility] Comment on above: No monoclonality det ected. Serum or plasma iron saturat ion measurement (mass fraction)Ordered By: Sergio Mcfarland on 07-05-2024 Iron saturation [Mass fraction] 73.3 % High 13-59 [facility] Comment on above: Previous reported re sult: 73.0 %Edited by: AUTOINS on 07/05/24:1215 AMENDED REPORT 07/05/24 1215 IRON SATURATION previously reported as: 73.0 H % Serum or plasma mannobioside IgG antibody assay by immunoassay (units/volume)Ordered By: Sergio Mcfarland on 07-05-2024 Mannobioside IgG IA Qn 18 units 0-100 [facility] Comment on above: Negative: <90 Equivo abelardo: 90-100 Positive: >100 This test was developed and its performance characteristics determined by [employer]. It has not been cleared or approved by the Food and Drug Administration. The FDA has determined that such clearance or approval is not necessary. Serum or plasma protein brian urement (mass/volume)Ordered By: Sergio Mcfarland on 07-05-2024 Protein [Mass/Vol] 6.1 g/dL 6.0-8.[address] [facility] Serum or plasma urea nitroge n measurement (mass/volume)Ordered By: Juan Hdez on 07-05-2024 Urea nitrogen [Mass/Vol] 4 mg/dL 4-19 [facility] Serum perinuclear neutrophil cytoplasmic antibody titer by immunofluorescenceOrdered By: Sergio Mcfarland on 07-05-2024 Neutrophil cytoplasmic Ab.perinuclear IF (S) [Titer] <1:20 titer Neg:<1:20 [facility] Comment on above: The presence of posi tive fluorescence exhibiting P-ANCA orC-ANCA patterns alone is not specific for the diagnosis ofWegener's Granulomatosis (WG) or microscopic polyangiitis.Decisions about treatment should not be based solely onANCA IFA results. The International ANCA Group Consensusrecommends follow up testing of positive sera with both CA-3 and MPO-ANCA enzyme immunoassays. As many as 5% serumsamples are positive only by EIA. Ref. AM J Clin Geiekr2649;111:507-513. Serum tissue transglutaminas e (tTG) IgA antibody assay (units/volume)Ordered By: Sergio Mcfarland on 07-05-2024 tTG IgA Qn (S) <2 U/mL 0-3 [facility] Comment on above: Negative 0 - 3 Weak Positive 4 - 10 Positive >10 Tissue Transglutaminase (tTG) has been identified as the endomysial antigen. Studies have demonstr- ated that endomysial IgA antibodies have over 99% specificity for gluten sensitive enteropathy. Sodium levelOrdered By: Mami Hdez on 07-05-2024 Sodium [Moles/Vol] 140 mmol/L 133-[address] [facility] Total proteinOrdered By: Izabel Hdez on 07-05-2024 Protein [Mass/Vol] 6.2 g/dL 5.9-8.[address] [facility] Urine testOrdered By: Helder Geiger on 07-05-2024 HCG ( test) Ql (U) Negative [facility] Comment on above: Very dilute urine sp ecimens, as indicated by a low specificgravity, may not contain patient representative levels of hCG. If is still suspected, a first morning urinespecimen should be collected 48 hours later and tested. White blood cell (WBC) count Ordered By: Juan Hdez on 07-05-2024 WBC (Bld) [#/Vol] 4.6 10*3/uL 4.4-11.[address] [facility] 12 Lead EKGon 07-04-2024 12 Lead EKG [facility] [address] [place] [address] 12 Lead EKG 07/04/24 0942 MR#: [id number] Acct: [id number] Name: LIUDMILA WORLEY Rep #: [id number] : 1985 38 From: Lizzeth Castro MD Attending Dr: Dr. Tristen Harrison DO Status : DIS IN Ordering Dr: Gavin Alford DO Date: 07/04/24 [place] [facility] [place] F C Admitted: 07/04/24 Test Reason : GENRAL Blood Pressure : */* mmHG Vent. Rate : 78 BPM Atrial Rate : 78 BPM P-R Int : 160 ms QRS Dur : 102 ms QT Int : 382 ms P-R-T Axes : 42 66 27 degrees QTcB Int : 435 ms Normal sinus rhythm Normal ECG Confirmed by ELADIO CASTAÑEDA, JOSH ([id number]), mapping editor VERNELL MONTILLA ([id number]) on 07/07/2024 11:52:56 AM Referred By: Confirmed By: JOSH CASTRO MD 07/07/24 1152 Date Lizzeth Castro MD CC: Dr. Tristen Harrison DO; Dr. Mena Vernon MD; Dr. Gavin Alford DO Signed Normal [facility] Absolute neutrophil countOrd ered By: Harshil Sanches on 07-04-2024 Neutrophils (Bld) [#/Vol] 6.0 10*3/uL 2.0-7.7 [facility] Activated partial thrombopla stin time (aPTT) in platelet poor plasma by coagulation aOrdered By: Gavin Alford on 07-04-2024 aPTT Coag (PPP) [Time] 23.9 s Low 24.1-36.2 [facility] Anion gap in Serum or Plasma Ordered By: Harshil Sanches on 07-04-2024 Anion gap [Moles/Vol] 13 mmol/L 07-22 [facility] BUN/creatinine ratioOrdered By: Harshil Sanches on 07-04-2024 Urea nitrogen/Creatinine [Mass ratio] 15.0 mg/mg 12-27 [facility] Basic Metabolic Profile (BMP )on 07-04-2024 BUN/CRE 15.0 RATIO Normal 12-27 [facility] Comment on above: Performed By: #### L 500.3400, L501.2450, L100.0100, L500.2500 #### [facility] [address] [place], [address] Calcium [Mass/Vol] 9.3 mg/dL Normal 7.6-11.[address] [facility] Comment on above: Performed By: #### L 500.3400, L501.2450, L100.0100, L500.2500 #### [facility] [address] [place], [address] Chloride [Moles/Vol] 102 mmol/L Normal 98-108 [facility] Comment on above: Performed By: #### L 500.3400, L501.2450, L100.0100, L500.2500 #### [facility] [address] [place], [address] CO2 [Moles/Vol] 23.0 mmol/L Normal 21.0-32.0 [facility] Comment on above: Performed By: #### L 500.3400, L501.2450, L100.0100, L500.2500 #### [facility] [address] [place], [address] Creatinine [Mass/Vol] 0.56 mg/dL Low 0.70-1.20 [facility] Comment on above: Performed By: #### L 500.3400, L501.2450, L100.0100, L500.2500 #### [facility] [address] [place], [address] ECRCL 152.99 ml/min Normal 50-250 [facility] Comment on above: Performed By: #### L 500.3400, L501.2450, L100.0100, L500.2500 #### [facility] [address] [place], [address] GAP 13 Normal 5-15 [facility] Comment on above: Performed By: #### L 500.3400, L501.2450, L100.0100, L500.2500 #### [facility] [address] [place], [address] GFR/1.73 sq M.predicted among non-blacks MDRD (S/P/Bld) [Vol rate/Area] 121 mL/min/{1.73_m2} Normal >60 [facility] Comment on above: Result Comment: mL/m in/1.73m2 CKD-EPI Creatinine Equation (2020) Performed By: #### L 500.3400, L501.2450, L100.0100, L500.2500 #### [facility] [address] [place], [address] Glucose [Mass/Vol] 105 mg/dL High 70-[address] [facility] Comment on above: Performed By: #### L 500.3400, L501.2450, L100.0100, L500.2500 #### [facility] [address] [place], [address] Potassium [Moles/Vol] 4.0 mmol/L Normal 3.3-5.1 [facility] Comment on above: Performed By: #### L 500.3400, L501.2450, L100.0100, L500.2500 #### [facility] [address] [place], [address] Sodium [Moles/Vol] 138 mmol/L Normal 133-[address] [facility] Comment on above: Performed By: #### L 500.3400, L501.2450, L100.0100, L500.2500 #### [facility] [address] [place], [address] Urea nitrogen [Mass/Vol] 8 mg/dL Normal 4-19 [facility] Comment on above: Performed By: #### L 500.3400, L501.2450, L100.0100, L500.2500 #### [facility] [address] [place], [address] Basophil percentageOrdered B y: Harshil Sanches on 07-04-2024 Basophils/100 WBC (Bld) 0.3 % 0-1 [facility] Bilirubin Test strip Ql (U)O rdered By: Harshil Sanches on 07-04-2024 Bilirubin Ql (U) Negative Negative [facility] Bilirubin directOrdered By: Harshil Sanches on 07-04-2024 Bilirubin.direct [Mass/Vol] 0.54 mg/dL High 0.00-0.3 0 [facility] Bilirubin, totalOrdered By: Harshil Sanches on 07-04-2024 Bilirubin [Mass/Vol] 0.80 mg/dL 0.00-1.30 [facility] CBC W/Diff, Automatedon 06-09 Absolute Lymph 0.96 X10 3/uL Normal 0.83-4.51 [facility] Comment on above: Performed By: #### L 500.3400, L501.2450, L100.0100, L500.2500 #### [facility] [address] [place], [address] Absolute Neut 6.0 X10 3/uL Normal 2.0-7.7 [facility] Comment on above: Performed By: #### L 500.3400, L501.2450, L100.0100, L500.2500 #### [facility] [address] [place], [address] Basophils/100 WBC (Bld) 0.3 % Normal 0-1 [facility] Comment on above: Performed By: #### L 500.3400, L501.2450, L100.0100, L500.2500 #### [facility] [address] [place], [address] Eosinophils/100 WBC (Bld) 0.4 % Normal 0-5 [facility] Comment on above: Performed By: #### L 500.3400, L501.2450, L100.0100, L500.2500 #### [facility] [address] [place], [address] Erythrocyte distribution width (RBC) [Ratio] 15.9 % High 11.6-14.6 [facility] Comment on above: Performed By: #### L 500.3400, L501.2450, L100.0100, L500.2500 #### [facility] [address] [place], [address] Hematocrit (Bld) [Volume fraction] 36.0 % Low 37-47 [facility] Comment on above: Performed By: #### L 500.3400, L501.2450, L100.0100, L500.2500 #### [facility] [address] [place], [address] Hemoglobin (Bld) [Mass/Vol] 11.9 g/dL Low 12.0-15. 0 [facility] Comment on above: Performed By: #### L 500.3400, L501.2450, L100.0100, L500.2500 #### [facility] [address] [place], [address] IG% 0.400 Normal 0.0-0.9 [facility] Comment on above: Result Comment: IG% - Immature Granulocytes (promyelocytes, myelocytes and metamyelocytes) > 1% indicates that a LEFT SHIFT is Present. Performed By: #### L 500.3400, L501.2450, L100.0100, L500.2500 #### [facility] [address] [place], [address] Lymphocytes/100 WBC (Bld) 12.7 % Low 19-41 [facility] Comment on above: Performed By: #### L 500.3400, L501.2450, L100.0100, L500.2500 #### [facility] [address] [place], [address] MCH (RBC) [Entitic mass] 25.6 pg Low 27.0-32.0 [facility] Comment on above: Performed By: #### L 500.3400, L501.2450, L100.0100, L500.2500 #### [facility] [address] [place], [address] MCHC (RBC) [Mass/Vol] 33.1 g/dL Normal 32-36 [facility] Comment on above: Performed By: #### L 500.3400, L501.2450, L100.0100, L500.2500 #### [facility] [address] [place], [address] MCV (RBC) [Entitic vol] 77.4 fL Low 81-99 [facility] Comment on above: Performed By: #### L 500.3400, L501.2450, L100.0100, L500.2500 #### [facility] [address] [place], [address] Monocytes/100 WBC (Bld) 6.9 % Normal 0-10 [facility] Comment on above: Performed By: #### L 500.3400, L501.2450, L100.0100, L500.2500 #### [facility] [address] [place], [address] Neutrophils/100 WBC (Bld) 79.3 % High 47-70 [facility] Comment on above: Performed By: #### L 500.3400, L501.2450, L100.0100, L500.2500 #### [facility] [address] [place], [address] Nucleated RBC (Bld) [#/Vol] 0 10*3/uL Normal 0-5 [facility] Comment on above: Performed By: #### L 500.3400, L501.2450, L100.0100, L500.2500 #### [facility] [address] [place], [address] Platelet mean volume (Bld) [Entitic vol] 10.0 fL Normal 6.2-12.0 [facility] Comment on above: Performed By: #### L 500.3400, L501.2450, L100.0100, L500.2500 #### [facility] [address] [place], [address] Platelets (Bld) [#/Vol] 312 10*3/uL Normal 150-450 [facility] Comment on above: Performed By: #### L 500.3400, L501.2450, L100.0100, L500.2500 #### [facility] [address] [place], [address] RBC (Bld) [#/Vol] 4.65 10*6/uL Normal 4.2-5.4 [facility] Comment on above: Performed By: #### L 500.3400, L501.2450, L100.0100, L500.2500 #### [facility] [address] [place], [address] RDW SD 44.5 fl High 35.1-43.9 [facility] Comment on above: Performed By: #### L 500.3400, L501.2450, L100.0100, L500.2500 #### [facility] [address] [place], [address] WBC (Bld) [#/Vol] 7.6 10*3/uL Normal 4.4-11.[address] [facility] Comment on above: Performed By: #### L 500.3400, L501.2450, L100.0100, L500.2500 #### [facility] [address] [place], [address] Carbon dioxide, total [Moles /volume] in Central venous bloodOrdered By: Harshil Sanches on 07-04-2024 CO2 [Moles/Vol] 23.0 mmol/L 21.0-32.0 [facility] Chest 1 View (Portable)on Chest 1 View (Portable) [facility] Imaging Services [address] [place] [address] Chest 1 View (Portable) MR#: [id number] Acct: [id number] Name: LIUDMILA WORLEY Rep #: [id number] : 1985 F 38 From: Alon sylvester MD PCP: Dr. Mena Vernon MD Status: REG ER Study: Chest 1 View (Portable) Date of Exam: 07/04/24 Exam# [id number] Ordering Dr: Gavin Alford DO PROCEDURE: CHEST 1 VIEW (PORTABLE) 07/04/2024 REASON FOR EXAM: PREOP TECHNIQUE: Frontal view of the chest. COMPARISON: None FINDINGS: Hardware: None Heart: Cardiac and mediastinal contours are stable. Lungs: The lungs are clear. Bones: The bones are unremarkable. Other: RAD/Chest 1 View (Portable) IMPRESSION: No Acute Findings. Reading Location: [facility] CC: Dr. Mena Vernon MD; Dr. Gavin Alford DO Dairy Clerk: Signed Normal [facility] Chloride assayOrdered By: Nancy Sanches on 07-04-2024 Chloride [Moles/Vol] 102 mmol/L 98-108 [facility] Emergency Department Summary on 07-04-2024 Emergency Department Summary [facility] Medical Records Department [address] [place] [address] Emergency Department Summary 07/04/24 MR#: [id number] Acct: [id number] Name: LIUDMILA WORLEY Rep #: [id number] : 1985 38 From: Harshil Sanches DO PCP: Dr. Mena Vernon MD Status:ADM IN [place] [facility] [place]-[address] Gavin Alford DO on [...] flare October of last year diagnosed at [facility]. She is told to follow-up with her PCP she has not had any issues until yesterday evening she ate nodule cheese for lunch nothing for dinner. I spoke with on-call surgeon Dr. Austin, reviewed her imagings and labs along with labs from [place]. Reported her AST was 100 at that [...] masses, no (more content not included)... Normal [facility] Eosinophil percentageOrdered By: Harshil Sanches on 07-04-2024 Eosinophils/100 WBC (Bld) 0.4 % 0-5 [facility] Epithelial cells.squamous LM Ql (Urine sed)Ordered By: Harshil Sanches on 07-04-2024 Epithelial cells.squamous LM.HPF (Urine sed) [#/Area] 0 /[HPF] 5-10 [facility] Erythrocyte distribution wid th (RBC) [Ratio]Ordered By: Harshil Sanches on 07-04-2024 Erythrocyte distribution width (RBC) [Entitic vol] 44.5 fL High 35.1-43.[address] [facility] Erythrocyte distribution wid th ratioOrdered By: Harshil Sanches on 07-04-2024 Erythrocyte distribution width (RBC) [Ratio] 15.9 % High 11.6-14.6 [facility] Estimation of creatinine jermain aranceOrdered By: Harshil Sanches on 07-04-2024 Estimated Creatinine Clearance Calc 152.99 ml/min 50-250 [facility] GFR/1.73 sq M.predicted shala g non-blacks MDRD (S/P/Bld) [Vol rate/Area]Ordered By: Harshil Sanches on 07-04-2024 Estimated GFR (MDRD) Non-Af Amer 121 >60 [facility] Comment on above: mL/min/1.73m2 CKD-EP I Creatinine Equation (2020) Gallbladderon 07-04-2024 Gallbladder [facility] Imaging Services [address] [place] [address] Gallbladder MR#: [id number] Acct: [id number] Name: LIUDMILA WORLEY Rep #: [id number] : 1985 F 38 From: Lexus thomas MD PCP: Dr. Mena Vernon MD Status: REG ER Study: Gallbladder Date of Exam: 07/04/24 Exam# [id number] Ordering Dr: Harshil Sanches DO PROCEDURE: GALLBLADDER [...] sonographic evidence of acute cholecystitis. [facility] CC: Dr. Mena Vernon MD; Dr. Harshil Sanches DO Dairy Clerk: Signed Normal [facility] Gamma glutamyl transferase ( GGT) measurementOrdered By: Juan Hdez on 07-04-2024 Amylase [Catalytic activity/Vol] 213 U/L High 0-60 [facility] Comment on above: Performed at: [address] [id number] Director: Brett Jasso PhD, Phone: [phone] Glucose Ql (U)Ordered By: Nancy casianobetty Sanches on 07-04-2024 Urine Glucose (UA) Normal mg/dl Normal [facility] H AND P Exam - Hospitaliston 07-04-2024 H&P Exam - Hospitalist [facility] Medical Records Department [address] [place] [address] H P Exam - Hospitalist 07/04/24 1011 MR#: [id number] Acct: [id number] Name: LIUDMILA WORLEY Rep #: [id number] : 1985 38 From: Juan Hdez MD PCP: Dr. Mena Vernon MD Status:ADM IN [place] [facility] GC303-9 HPI - General General Date of Admission: [...] pain October 2023 and she went to [facility] where she had ultrasound. She was told that she has a gallbladder stone and probably she has elevated transaminases as per Dr. Austin at that time. I tried to log into [employer] to check it but could not. She had right upper quadrant sonogram in ED shows cholelithiasis without features of acute cholecystitis. ED physician consulted and she wanted to admit under medicine with GI consult. [facility] Medical History Wears glasses Depression Anxiety Alcohol [...] Status: Nor (more content not included)... Normal [facility] Hematocrit Auto (Bld) [Volum e fraction]Ordered By: Harshil Sanches on 07-04-2024 Hematocrit (Bld) [Volume fraction] 36.0 % Low 37-47 [facility] Hemoglobin measurementOrdere d By: Harshil Sanches on 07-04-2024 Hemoglobin (Bld) [Mass/Vol] 11.9 g/dL Low 12.0-15. 0 [facility] Immature granulocytes/100 WB C Auto (Bld)Ordered By: Harshil Sanches on 07-04-2024 Immature granulocytes/100 WBC (Bld) 0.400 % 0.0-0.9 [facility] Comment on above: IG% - Immature Granu locytes (promyelocytes, myelocytes and metamyelocytes) > 1% indicates that a LEFT SHIFT is Present. International normalized rat io (INR) calculationOrdered By: Gavin Alford on 07-04-2024 INR Coag (Bld) [Relative time] 1.0 {INR} [facility] Ketones Test strip Ql (U)Ord ered By: Harshil Sanches on 07-04-2024 Ketones Ql (U) Negative Negative [facility] - Chemistry and C hemistry - challengeOrdered By: Harshil Sanches on 07-04-2024 AST [Catalytic activity/Vol] 594 U/L High <32 [facility] Lipaseon 07-04-2024 Lipase [Catalytic activity/Vol] 56 U/L Normal 13-75 [facility] Comment on above: Result Comment: Ronen baeza note: LIPASE revised reference range effective 22. New Lipase methodology. Expected to produce lower values than the previous assay method. NEW Reference Range: 13 - 75 U/L Performed By: #### L 500.3400, L501.2450, L100.0100, L500.2500 #### [facility] [address] [place], [address] Lipase measurementOrdered By : Harshil Sanches on 07-04-2024 Lipase [Catalytic activity/Vol] 56 U/L 13-75 [facility] Comment on above: Please note:LIPASE r evised reference range effective 22. New Lipase methodology. Expected to produce lower values than the previous assay method. NEW Reference Range: 13 - 75 U/L Liver Profileon 07-04-2024 Albumin [Mass/Vol] 4.2 g/dL Normal 3.5-5.[address] [facility] Comment on above: Performed By: #### L 500.3400, L501.2450, L100.0100, L500.2500 #### [facility] [address] [place], [address] ALK PHOS 135 U/L High 35-104 [facility] Comment on above: Performed By: #### L 500.3400, L501.2450, L100.0100, L500.2500 #### [facility] [address] [place], [address] ALT [Catalytic activity/Vol] 352 U/L High <=34 [facility] Comment on above: Performed By: #### L 500.3400, L501.2450, L100.0100, L500.2500 #### [facility] [address] [place], [address] AST [Catalytic activity/Vol] 594 U/L High <=31 [facility] Comment on above: Performed By: #### L 500.3400, L501.2450, L100.0100, L500.2500 #### [facility] [address] [place], [address] Bilirubin [Mass/Vol] 0.80 mg/dL Normal 0.00-1.30 [facility] Comment on above: Performed By: #### L 500.3400, L501.2450, L100.0100, L500.2500 #### [facility] [address] [place], [address] Bilirubin.direct [Mass/Vol] 0.54 mg/dL High 0.00-0.3 0 [facility] Comment on above: Performed By: #### L 500.3400, L501.2450, L100.0100, L500.2500 #### [facility] [address] [place], [address] Globulin (S) [Mass/Vol] 2.4 g/dL Normal 2.2-4.2 [facility] Comment on above: Performed By: #### L 500.3400, L501.2450, L100.0100, L500.2500 #### [facility] [address] [place], [address] T PROT 6.6 g/dL Normal 5.9-8.4 [facility] Comment on above: Performed By: #### L 500.3400, L501.2450, L100.0100, L500.2500 #### [facility] [address] [place], [address] Lymphocytes Auto (Unsp spec) [#/Vol]Ordered By: Harshil Sanches on 07-04-2024 Lymphocytes (Bld) [#/Vol] 0.96 10*3/uL 0.83-4.5 1 [facility] Lymphocytes/100 WBC Auto (Un sp spec)Ordered By: Harshil Sanches on 07-04-2024 Lymphocytes/100 WBC (Bld) 12.7 % Low 19-41 [facility] MCV (mean corpuscular volume ) determinationOrdered By: Harshil Sanches on 07-04-2024 MCV (RBC) [Entitic vol] 77.4 fL Low 81-99 [facility] Magnesiumon 07-04-2024 Magnesium [Mass/Vol] 1.9 mg/dL Normal 1.5-2.2 [facility] Comment on above: Performed By: #### L 501.5200 #### [facility] [address] [place], [address] Magnesium (Unsp spec) [Mass/ Vol]Ordered By: Juan Hdez on 07-04-2024 Magnesium [Mass/Vol] 1.9 mg/dL 1.5-2.2 [facility] Magnesium measurement (mass/ volume)Ordered By: Juan Hdez on 07-04-2024 Magnesium (Unsp spec) [Mass/Vol] 1.9 mg/dL 1.5-2.2 [facility] Mean corpuscular hemoglobin (MCH) determinationOrdered By: Harshil Sanches on 07-04-2024 MCH (RBC) [Entitic mass] 25.6 pg Low 27.0-32.0 [facility] Mean corpuscular hemoglobin concentration (MCHC) determinationOrdered By: Harshil Sanches on 07-04-2024 MCHC (RBC) [Mass/Vol] 33.1 g/dL 32-36 [facility] Mean platelet volume determi nationOrdered By: Harshil Sanches on 07-04-2024 Platelet mean volume (Bld) [Entitic vol] 10.0 fL 6.2-12.0 [facility] Microscopic analysis of urin e for red blood cells (RBC)Ordered By: Harshil Sanches on 07-04-2024 Microscopic analysis of urine for red blood cells (RBC) 0 SEEN /hpf 0-5 [facility] Urine RBC 0 SEEN /hpf 0-5 [facility] Monocyte percentageOrdered B y: Harshil Sanches on 07-04-2024 Monocytes/100 WBC (Bld) 6.9 % 0-10 [facility] Mucus LM Ql (Urine sed)Order ed By: Harshil Sanches on 07-04-2024 Mucus Ql (Urine sed) 0 SEEN /hpf [facility] Neutrophil percentageOrdered By: Harshil Sanches on 07-04-2024 Neutrophils/100 WBC (Bld) 79.3 % High 47-70 [facility] Nitrite Test strip Ql (U)Ord ered By: Harshil Sanches on 07-04-2024 Nitrite Ql (U) Negative Negative [facility] Nucleated red blood cell per centageOrdered By: Harshil Sanches on 07-04-2024 Nucleated RBC/100 WBC (Bld) [Ratio] 0 % 0-5 [facility] Partial Thromboplast Timeon 07-04-2024 aPTT Coag (Bld) [Time] 23.9 s Low 24.1-36.2 [facility] Comment on above: Performed By: #### L 500.3400, L501.2450, L100.0100, L500.2500 #### [facility] [address] [place], [place], [address] Platelet countOrdered By: Nancy Sanches on 07-04-2024 Platelets (Bld) [#/Vol] 312 10*3/uL 150-450 [facility] Potassium (Unsp spec) [Mass/ Vol]Ordered By: Harshil Sanches on 07-04-2024 Potassium [Moles/Vol] 4.0 mmol/L 3.3-5.1 [facility] ,Urineon 07-04-2024 Beta HCG ( test) Ql (U) Negative Normal [facility] Comment on above: Result Comment: Very dilute urine specimens, as indicated by a low specific gravity, may not contain patient representative levels of hCG. If is still suspected, a first morning urine specimen should be collected 48 hours later and tested. Performed By: #### L 400.7600, L400.0001 #### [facility] [address] [place], [address] Protein Test strip Ql (U)Ord ered By: Harshil aSnches on 07-04-2024 Protein Ql (U) 30 mg/dl High Negative [facility] Prothrombin Time w/INRon INR Coag (PPP) [Relative time] 1.0 {INR} Normal [facility] Comment on above: Performed By: #### L 500.3400, L501.2450, L100.0100, L500.2500 #### [facility] [address] [place], [address] Prothrombin timeOrdered By: Gavin Alford on 07-04-2024 PT Coag (PPP) [Time] 13.5 s Normal 11.7-14.9 [facility] Comment on above: Performed By: #### L 500.3400, L501.2450, L100.0100, L500.2500 #### [facility] [address] [place], [address] RBC Auto (Bld) [#/Vol]Ordere d By: Harshil Sanches on 07-04-2024 RBC (Bld) [#/Vol] 4.65 10*6/uL 4.2-5.4 [facility] Serum creatinine measurement (mass/volume)Ordered By: Harshil Sanches on 07-04-2024 Creatinine [Mass/Vol] 0.56 mg/dL Low 0.70-1.20 [facility] Serum globulin measurementOr dered By: Harshil Sanches on 07-04-2024 Globulin (S) [Mass/Vol] 2.4 g/dL 2.2-4.2 [facility] Serum glucose measurement (m ass/volume)Ordered By: Harshil Sanches on 07-04-2024 Glucose [Mass/Vol] 105 mg/dL High 70-[address] [facility] Serum or plasma alanine wilde otransferase (ALT) measurementOrdered By: Harshil Sanches on 07-04-2024 ALT [Catalytic activity/Vol] 352 U/L High <35 [facility] Serum or plasma albumin brian urement (mass/volume)Ordered By: Harshil Sanches on 07-04-2024 Albumin [Mass/Vol] 4.2 g/dL 3.5-5.[address] [facility] Serum or plasma alkaline eduardo sphatase measurementOrdered By: Harshil Sanches on 07-04-2024 ALP [Catalytic activity/Vol] 135 U/L High 35-104 [facility] Serum or plasma calcium brian urement (mass/volume)Ordered By: Harshil Sanches on 07-04-2024 Calcium [Mass/Vol] 9.3 mg/dL 7.6-11.[address] [facility] Serum or plasma urea nitroge n measurement (mass/volume)Ordered By: Harshil Sanches on 07-04-2024 Urea nitrogen [Mass/Vol] 8 mg/dL 4-19 [facility] Sodium levelOrdered By: Chandan Sanches on 07-04-2024 Sodium [Moles/Vol] 138 mmol/L 133-[address] [facility] Squamous epithelial cells de tection in urine sediment by light microscopyOrdered By: Harshil Sanches on 07-04-2024 Epithelial cells.squamous LM Ql (Urine sed) 0-5 SEEN /hpf 5-10 [facility] Total proteinOrdered By: Maynor Sanches on 07-04-2024 Protein [Mass/Vol] 6.6 g/dL 5.9-8.[address] [facility] Type AND Screenon 07-04-2024 ABO and Rh group Nom (Bld) Blood group A B Rh(D) positive Normal [facility] Comment on above: Order Comment: S Performed By: #### L 500.3400, L501.2450, L100.0100, L500.2500 #### [facility] [address] [place], [address] Urinalysis, Completeon 07-04 EPI,SQUAMOUS 0-5 SEEN Normal 5-10 [facility] Comment on above: Order Comment: COLLE CTOR TO SPECIFY Performed By: #### L 400.7600, L400.0001 #### [facility] [address] [place], [address] WBC 0-5 SEEN Normal 0-5 [facility] Comment on above: Order Comment: COLLE CTOR TO SPECIFY Performed By: #### L 400.7600, L400.0001 #### [facility] [address] [place], [address] BACTERIA 0 SEEN Normal None Seen [facility] Comment on above: Order Comment: MILTON CTOR TO SPECIFY Performed By: #### L 400.7600, L400.0001 #### [facility] [address] [place], [address] Mucus Ql (Urine sed) 0 SEEN Normal [facility] Comment on above: Order Comment: MILTON CTOR TO SPECIFY Performed By: #### L 400.7600, L400.0001 #### [facility] [address] [place], [address] RBC 0 SEEN Normal 0-5 [facility] Comment on above: Order Comment: MILTON CTOR TO SPECIFY Performed By: #### L 400.7600, L400.0001 #### [facility] [address] [place], [address] Urine blood detectionOrdered By: Harshil Sanches on 07-04-2024 Urine Occult Blood Negative Negative [facility] Urine clarityOrdered By: Maynor Sanches on 07-04-2024 Clarity (U) Clear Clear [facility] Urine color determinationOrd ered By: Harshil Sanches on 07-04-2024 Color (U) Yellow Yellow [facility] Urine glucose detectionOrder ed By: Harshil Sanches on 07-04-2024 Glucose Ql (U) Normal mg/dl Normal [facility] Urine leukocyte esterase det ection by dipstickOrdered By: Harshil Sanches on 07-04-2024 Leukocyte esterase Test strip Ql (U) Negative Negative [facility] Urine pHOrdered By: Harshil means on 07-04-2024 pH (U) 7.0 [pH] 5.0 - 8.0 [facility] Urine testOrdered By: Harshil Sanches on 07-04-2024 HCG ( test) Ql (U) Negative [facility] Comment on above: Very dilute urine sp ecimens, as indicated by a low specificgravity, may not contain patient representative levels of hCG. If is still suspected, a first morning urinespecimen should be collected 48 hours later and tested. Urine sediment bacteria coun t by microscopy (number/high power field)Ordered By: Harshil Sanches on 07-04-2024 Bacteria LM.HPF (Urine sed) [#/Area] 0 /[HPF] None Seen [facility] Urine specific gravity measu rementOrdered By: Harshil Sanches on 07-04-2024 Specific gravity (U) [Rel density] 1.010 1.002-1.03 0 [facility] Urine urobilinogen measureme ntOrdered By: Harshil Sanches on 07-04-2024 Urobilinogen Ql (U) Normal mg/dl Normal [facility] Urobilinogen Ql (U)Ordered B y: Harshil Sanches on 07-04-2024 Urine Urobilinogen Normal mg/dl Normal [facility] White blood cell (WBC) count Ordered By: Harshil Sanches on 07-04-2024 WBC (Bld) [#/Vol] 7.6 10*3/uL 4.4-11.[address] [facility] White blood cell countOrdere d By: Harshil Sanches on 07-04-2024 Urine WBC 0-5 SEEN /hpf 0-5 [facility] White blood cell count 0-5 SEEN /hpf 0-5 [facility] aPTT Coag (PPP) [Time]Ordere d By: Gavin Alford on 07-04-2024 aPTT Coag (Bld) [Time] 23.9 s Low 24.1-36.2 [facility] CNPNon 05-17-2024 [facility] Telephone (INTMWS) LIUDMILA WORLEY ([id number]) 1985 F Date Time Provider Department 05/17/24 [...] Adderall Provider: Dr Vernon Insurance Company Name: [employer] Phone number: [phone] Patient ID number: [id number] Pharmacy Name: [facility] Telephone number: [phone] Leora Gambino MA 05/17/2024 1:35 PM Signed Tried to complete through covermymeds but would not process. Called [facility] at [phone] and completed with rep for adderall 30 [...] Fax received yesterday was from covermymeds submission. AIXA Meng Janice, LPN 05/19/2024 4:17 PM Signed Denial rec'd. They note they need notes noting pt has positive effects with current treatment. Office notes faxed for review. Leora Gambnio MA 05/24/2024 11:13 AM Signed Called [facility] [phone] and did not receive chart notes. [facility] rep advised should re-submitted again for Name Brand : Adderall 30 mg BID and faxed chart notes Auth ID [id number] Leyla Hussein LPN 05/25/2024 8:55 AM Signed [...] Status:Closed by LEYLA HUSSEIN on 05/25/24 Normal [facility] CBC panel Auto (Bld)on 04-19 Erythrocyte distribution width (RBC) [Ratio] 14.8 % Normal 11.5-15.0 [facility] Comment on above: Order Comment: Speci men Type: BLOOD SPECIMEN Ordering Facility: [facility] Address: [address] [place] [address] Performed By: #### 2 4331-1, 2276-4, 34593-0, 55270-3 #### [facility] CLIA [id number] [address] [place] [address] [place] Hematocrit (Bld) [Volume fraction] 37.3 % Normal 36.0-46.0 [facility] Comment on above: Order Comment: Speci men Type: BLOOD SPECIMEN Ordering Facility: [facility] Address: [address] [place] [address] Performed By: #### 2 4331-1, 2276-4, 56051-2, 50495-3 #### [facility] CLIA [id number] [address] [place] [address] [place] Hemoglobin (Bld) [Mass/Vol] 11.7 g/dL Normal 11.5-15. 5 [facility] Comment on above: Order Comment: Speci men Type: BLOOD SPECIMEN Ordering Facility: [facility] Address: [address] [place] [address] Performed By: #### 2 4331-1, 2276-4, 70418-5, 32496-6 #### [facility] CLIA [id number] [address] [place] [address] [place] MCH (RBC) [Entitic mass] 24.5 pg Low 26.0-34.0 [facility] Comment on above: Order Comment: Speci men Type: BLOOD SPECIMEN Ordering Facility: [facility] Address: [address] [place] [address] Performed By: #### 2 4331-1, 2276-4, 37859-0, 05959-7 #### [facility] CLIA [id number] [address] [place] [address] [place] MCHC (RBC) [Mass/Vol] 31.4 g/dL Normal 30.5-36.0 [facility] Comment on above: Order Comment: Speci men Type: BLOOD SPECIMEN Ordering Facility: [facility] Address: [address] [place] [address] Performed By: #### 2 4331-1, 2276-4, 85893-4, 34802-4 #### [facility] CLIA [id number] [address] [place] [address] [place] MCV (RBC) [Entitic vol] 78.0 fL Low 80.0-100.0 [facility] Comment on above: Order Comment: Speci men Type: BLOOD SPECIMEN Ordering Facility: [facility] Address: [address] [place] [address] Performed By: #### 2 4331-1, 2276-4, 42799-3, 06835-9 #### [facility] CLIA [id number] [address] [place] [address] [place] Nucleated RBC (Bld) [#/Vol] 10*3/uL Normal <0.01 [facility] Comment on above: Order Comment: Speci men Type: BLOOD SPECIMEN Ordering Facility: [facility] Address: [address] [place] [address] Performed By: #### 2 4331-1, 2276-4, 89358-5, 46469-0 #### [facility] CLIA [id number] [address] [place] [address] [place] Platelet mean volume (Bld) [Entitic vol] 9.7 fL Normal 9.0-12.7 [facility] Comment on above: Order Comment: Speci men Type: BLOOD SPECIMEN Ordering Facility: [facility] Address: [address] [place] [address] Performed By: #### 2 4331-1, 2276-4, 72092-9, 74372-3 #### [facility] CLIA [id number] [address] [place] [address] [place] Platelets (Bld) [#/Vol] 378 10*3/uL Normal 150-400 [facility] Comment on above: Order Comment: Speci men Type: BLOOD SPECIMEN Ordering Facility: [facility] Address: [address] [place] [address] Performed By: #### 2 4331-1, 2276-4, 57329-4, 42675-9 #### [facility] CLIA [id number] [address] [place] [address] [place] RBC (Bld) [#/Vol] 4.78 10*6/uL Normal 3.90-5.20 [facility] Comment on above: Order Comment: Speci men Type: BLOOD SPECIMEN Ordering Facility: [facility] Address: [address] [place] [address] Performed By: #### 2 4331-1, 2276-4, 41246-0, 37716-0 #### [facility] CLIA [id number] [address] [place] [address] [place] WBC (Bld) [#/Vol] 5.07 10*3/uL Normal 3.70-11.00 [facility] Comment on above: Order Comment: Speci men Type: BLOOD SPECIMEN Ordering Facility: [facility] Address: [address] [place] [address] Performed By: #### 2 4331-1, 2276-4, 73417-9, 79535-0 #### [facility] CLIA [id number] [address] [place] [address] [place] CNOVon 04-19-2024 CNOV Office Visit (INTMWS ) LIUDMILA WORLEY ([id number]) 1985 F Date Time Provider Department 04/19/24 8:40 AM MENA VERNON INTMWS During your visit today, we recorded the following information about you: Pulse Respiration Blood pressure Weight 97/minute 16/minute 128/84 98 kg Mena Vernon MD 04/19/2024 9:45 AM Signed This note was created using Cotopaxiriter. Subjective Liudmila Worley is a 38 year [...] trying to make healthier choices, such as [place] yogurt and fruit parfaits. She also reports [...] due to (more content not included)... Normal [facility] Comprehensive metabolic 2000 panelon 04-19-2024 Albumin [Mass/Vol] 4.4 g/dL Normal 3.9-4.9 [facility] Comment on above: Order Comment: Speci men Type: BLOOD SPECIMEN Ordering Facility: [facility] Address: [address] [place], [place] [id number] Performed By: #### 2 4331-1, 2276-4, 10538-0, 85712-1 #### [facility] CLIA [id number] [address] [place] [address] [place] ALP [Catalytic activity/Vol] 100 U/L Normal 34-123 [facility] Comment on above: Order Comment: Speci men Type: BLOOD SPECIMEN Ordering Facility: [facility] Address: [address] [place] [address] Performed By: #### 2 4331-1, 6-4, 49075-0, 16841-2 #### [facility] CLIA [id number] [address] [place] [address] [place] ALT [Catalytic activity/Vol] 32 U/L Normal 7-38 [facility] Comment on above: Order Comment: Speci men Type: BLOOD SPECIMEN Ordering Facility: [facility] Address: [address] [place] [address] Performed By: #### 2 4331-1, 6-4, 89918-5, 97642-1 #### [facility] CLIA [id number] [address] [place] [address] [place] Anion gap [Moles/Vol] 8 mmol/L Normal 8-15 [facility] Comment on above: Order Comment: Speci men Type: BLOOD SPECIMEN Ordering Facility: [facility] Address: [address] [place] [address] Performed By: #### 2 4331-1, 6-4, 02575-4, 56690-9 #### [facility] CLIA [id number] [address] [place] [address] [place] AST [Catalytic activity/Vol] 22 U/L Normal 13-35 [facility] Comment on above: Order Comment: Speci men Type: BLOOD SPECIMEN Ordering Facility: [facility] Address: [address] [place], [place] [address] Performed By: #### 2 4331-1, 2276-4, 93037-7, 24471-1 #### [facility] CLIA [id number] [address] [place] [address] [place] Bilirubin [Mass/Vol] 0.2 mg/dL Normal 0.2-1.3 [facility] Comment on above: Order Comment: Speci men Type: BLOOD SPECIMEN Ordering Facility: [facility] Address: [address] [place] [address] Performed By: #### 2 4331-1, 2276-4, 60008-1, 13192-1 #### [facility] CLIA [id number] [address] [place] [address] [place] Calcium [Mass/Vol] 9.6 mg/dL Normal 8.5-10.2 [facility] Comment on above: Order Comment: Speci men Type: BLOOD SPECIMEN Ordering Facility: [facility] Address: [address] [place] [address] Performed By: #### 2 4331-1, 2276-4, 19152-8, 67444-5 #### [facility] CLIA [id number] [address] [place] [address] [place] Chloride [Moles/Vol] 105 mmol/L Normal 98-107 [facility] Comment on above: Order Comment: Speci men Type: BLOOD SPECIMEN Ordering Facility: [facility] Address: [address] [place] [address] Performed By: #### 2 4331-1, 2276-4, 44045-9, 61432-4 #### [facility] CLIA [id number] [address] [place] [address] [place] CO2 [Moles/Vol] 24 mmol/L Normal 22-30 [facility] Comment on above: Order Comment: Speci men Type: BLOOD SPECIMEN Ordering Facility: [facility] Address: [address] [place] [address] Performed By: #### 2 4331-1, 2276-4, 07563-1, 67125-8 #### [facility] CLIA [id number] [address] [place] [address] [place] Creatinine [Mass/Vol] 0.59 mg/dL Normal 0.58-0.96 [facility] Comment on above: Order Comment: Speci men Type: BLOOD SPECIMEN Ordering Facility: [facility] Address: [address] [place] [address] Performed By: #### 2 4331-1, 2276-4, 94345-4, 71878-5 #### [facility] CLIA [id number] [address] [place] [address] [place] Creatinine and Glomerular filtration rate.predicted panel (S/P/Bld) 120 mL/min/1.73m??? Normal >=60 [facility] Comment on above: Order Comment: Speci men Type: BLOOD SPECIMEN Ordering Facility: [facility] Address: [address] [place] [address] Result Comment: Angela mated Glomerular Filtration Rate [...] GFR. Performed By: #### 2 4331-1, 2276-4, 71374-3, 78902-1 #### [facility] CLIA [id number] [address] [place] [address] [place] Glucose [Mass/Vol] 91 mg/dL Normal 74-99 [facility] Comment on above: Order Comment: Speci men Type: BLOOD SPECIMEN Ordering Facility: [facility] Address: [address] [place] [address] Result Comment: The [place] Diabetes Association (ADA) provides guidance for cutoff [...] Standards of Medical Care in Diabetes 2016, [place] [employer]. Diabetes Care. 2016.39(Suppl 1). Performed By: #### 2 4331-1, 2276-4, 26688-7, 22910-4 #### [facility] CLIA [id number] [address] [place] [address] [place] Potassium [Moles/Vol] 4.2 mmol/L Normal 3.7-5.1 [facility] Comment on above: Order Comment: Speci men Type: BLOOD SPECIMEN Ordering Facility: [facility] Address: [address] [place] [address] Performed By: #### 2 4331-1, 2276-4, 28372-8, 84560-0 #### [facility] CLIA [id number] [address] [place] [address] [place] Protein [Mass/Vol] 7.0 g/dL Normal 6.3-8.0 [facility] Comment on above: Order Comment: Chazi men Type: BLOOD SPECIMEN Ordering Facility: [facility] Address: [address] [place] [address] Performed By: #### 2 4331-1, 2276-4, 59869-6, 87511-8 #### [facility] CLIA [id number] [address] [place] [address] [place] Sodium [Moles/Vol] 137 mmol/L Normal 136-144 [facility] Comment on above: Order Comment: Chazi men Type: BLOOD SPECIMEN Ordering Facility: [facility] Address: [address] [place] [address] Performed By: #### 2 4331-1, 2275-4, 31360-0, 89905-9 #### [facility] CLIA [id number] [address] [place] [address] [place] Urea nitrogen [Mass/Vol] 10 mg/dL Normal 7-21 [facility] Comment on above: Order Comment: Speci men Type: BLOOD SPECIMEN Ordering Facility: [facility] Address: [address] [place] [address] Performed By: #### 2 4331-1, 2275-4, 22977-1, 06401-9 #### [facility] CLIA [id number] [address] [place] [address] [place] Ferritin SerPl-ncon 2024 Ferritin [Mass/Vol] 17.6 ng/mL Normal 14.7-205.1 [facility] Comment on above: Order Comment: Speci men Type: BLOOD SPECIMEN Ordering Facility: [facility] Address: [address] [place] [address] Performed By: #### 2 4331-1, 2275-, 70931-9, 09766-5 #### [facility] CLIA [id number] [address] [place] [address] [place] Iron and Iron binding capaci ty panelon 04-19-2024 Iron [Mass/Vol] 34 ug/dL Low 41-186 [facility] Comment on above: Order Comment: Speci men Type: BLOOD SPECIMEN Ordering Facility: [facility] Address: [address] [place] [address] Performed By: #### 2 4331-1, 2275-4, 91080-7, 04793-1 #### [facility] CLIA [id number] [address] [place], [place] [id number] [place] Iron binding capacity [Mass/Vol] 407 ug/dL High 232-386 [facility] Comment on above: Order Comment: Speci men Type: BLOOD SPECIMEN Ordering Facility: [facility] Address: [address] [place] [address] Performed By: #### 2 4331-1, 2275-, 00143-5, 10150-2 #### [facility] CLIA [id number] [address] [place] [address] [place] Iron/TIBC [Molar ratio] 8.4 % Low 15.0-57.0 [facility] Comment on above: Order Comment: Speci men Type: BLOOD SPECIMEN Ordering Facility: [facility] Address: [address] [place] [address] Performed By: #### 2 4331-1, 2275-06, 08460-4, 99945-0 #### [facility] CLIA [id number] [address] [place] [address] [place] Lipid 1996 panelon 5 Cholesterol [Mass/Vol] 200 mg/dL High <200 [facility] Comment on above: Order Comment: Speci men Type: BLOOD SPECIMEN Ordering Facility: [facility] Address: [address] [place] [address] Result Comment: <200 mg/dL, Desirable 200-239 mg/dL, Borderline high >239 mg/dL, High Performed By: #### 2 4331-1, 2275-06, 93478-4, 89194-0 #### [facility] CLIA [id number] [address] [address] [place] Cholesterol in HDL [Mass/Vol] 47 mg/dL Normal >39 [facility] Comment on above: Order Comment: Speci men Type: BLOOD SPECIMEN Ordering Facility: [facility] Address: [address] [place] [address] Result Comment: 40-5 9 mg/dL, Acceptable >59 mg/dL, High: Negative risk factor for coronary heart disease <40 mg/dL, Low: Positive risk factor for coronary heart disease Performed By: #### 2 4331-1, 2275-4, 98539-5, 22071-2 #### [facility] CLIA [id number] [address] [place] [address] [place] Cholesterol in LDL [Mass/Vol] 143 mg/dL High <100 [facility] Comment on above: Order Comment: Chazi men Type: BLOOD SPECIMEN Ordering Facility: [facility] Address: [address] [place] [address] Result Comment: <100 mg/dL, Optimal 100-129 mg/dL, Near optimal/above optimal 130-159 mg/dL, Borderline high 160-189 mg/dL, High >189 mg/dL, Very high Secondary prevention optimal LDL Cholesterol levels are recommended to be < 70 mg/dL Performed By: #### 2 4331-1, 2275-4, 06436-2, 32705-4 #### [facility] CLIA [id number] [address] [place] [address] [place] Cholesterol in LDL/Cholesterol in HDL [Mass ratio] 3.04 {ratio} High <2.54 [facility] Comment on above: Order Comment: Kait brock Type: BLOOD SPECIMEN Ordering Facility: [facility] Address: [address] [place] [address] Result Comment: Reynaldo gutierrez: 1. National Cholesterol Education Program ATP III Guideline At-A-Glance Quick Desk Reference: National Heart, Lung, and Blood Mobile. National Institutes of Health. 2001: NIH Publication No. 01-3305. 2. An International Atherosclerosis Society position paper: global recommendations for the management of dyslipidemia: executive summary, Atherosclerosis. 2014: 232(2):410-413. Performed By: #### 2 4331-1, 2275-4, 19163-7, 03609-4 #### [facility] CLIA [id number] [address] [place] [address] [place] Cholesterol in VLDL [Mass/Vol] 10 mg/dL Normal <30 [facility] Comment on above: Order Comment: Kait brock Type: BLOOD SPECIMEN Ordering Facility: [facility] Address: [address] [place] [address] Performed By: #### 2 4331-1, 6-4, 65188-4, 32137-7 #### [facility] CLIA [id number] [address] [place] [address] [place] Cholesterol non HDL [Mass/Vol] 153 mg/dL High <130 [facility] Comment on above: Order Comment: Speci men Type: BLOOD SPECIMEN Ordering Facility: [facility] Address: [address] [place] [address] Result Comment: <130 mg/dL, Optimal 130-159 mg/dL, Near optimal/above optimal 160-189 mg/dL, Borderline high 190-219 mg/dL, High >219 mg/dL, Very high Secondary prevention optimal non HDL Cholesterol levels are recommended to be <100 mg/dL Performed By: #### 2 4331-1, 2275-4, 98891-0, 67929-6 #### [facility] CLIA [id number] [address] [place] [address] [place] Cholesterol.total/Cholester ol in HDL [Mass ratio] 4.26 {ratio} Normal <5.10 [facility] Comment on above: Order Comment: Speci men Type: BLOOD SPECIMEN Ordering Facility: [facility] Address: [address] [place] [address] Performed By: #### 2 4331-1, 2275-4, 83320-2, 81500-8 #### [facility] CLIA [id number] [address] [place] [address] [place] FASTING TIME 12 hrs Normal [facility] Comment on above: Order Comment: Speci men Type: BLOOD SPECIMEN Ordering Facility: [facility] Address: [address] [place] [address] Performed By: #### 2 4331-1, 2275-4, 46467-4, 57555-1 #### [facility] CLIA [id number] [address] [place] [address] [place] Triglyceride [Mass/Vol] 48 mg/dL Normal <150 [facility] Comment on above: Order Comment: Speci men Type: BLOOD SPECIMEN Ordering Facility: [facility] Address: [address] [place] [address] [place] [address] Result Comment: <150 mg/dL, Normal 150-199 mg/dL, Borderline high 200-499 mg/dL, High >499 mg/dL, Very high Performed By: #### 2 4331-1, 2276-4, 08899-2, 80708-5 #### [facility] CLIA [id number] [address] [place] [address] [id number] [id number] [facility] CNOVon 04-14-2024 CNOV Office Visit (UCTR ) LIUDMILA WORELY ([id number]) 1985 F Date Time Provider Department 04/14/24 7:45 PM ALIZA MCNAMARA [facility] During your visit today, we recorded the following information about you: Temperature Pulse Respiration Blood pressure 97.4 degrees 102/minute 16/minute 136/82 Weight 99.7 kg Aliza Mcnamara APRN.METER/RELAY TECHNICIAN 04/14/2024 8:08 PM Signed Subjective The history is provided by the patient. No master lay out specialist was used. HPI Liudmila Worley is a [...] have confirmed and edited as necessary, the [facility] Review of Systems Constitutional: Negative for chills [...] detail warranting prompt ER evaluation. Aliza Mcnamara APRN.Aliza Gillespie APRN.METER/RELAY TECHNICIAN 04/14/2024 8:01 PM Signed Rest, increase water [...] tabletTake 1 (more content not included)... Normal [facility] 12-03-2023 [facility] Telephone (INTMWS) LIUDMILA WORLEY ([id number]) 1985 F Date Time Provider Department 12/03/23 MENA VERNON INTMWS During your visit today, we recorded the following information about you: Aimee Ludwig RN 12/03/2023 10:49 AM Signed PRIOR AUTHORIZATION Medication for Prior Authorization: Adderall 30 mg (Brand Name) Insurance Company: [employer] Patient insurance ID number: [id number] SHARIFA Montanez Janice, LPN 12/03/2023 11:36 AM [...] an override. This was previously approved in [facility] until 04/26/24. Allergies As of Date: 12/03/2023 [...] Status:Closed by LEYLA HUSSEIN on 12/03/23 Normal [facility] US ABDOMEN LIMITEDon 11-06-2 024 US ABDOMEN LIMITED ORIGINAL EXAMINATION: LIMITED [...] 11/07/2023 10:46:03 AM Ordering Provider: DIEGO Wilde [facility] ([place] .Auto Diffon 11-05-2023 Basophil, Absolute 0.0 10 3/mcL Normal 0.0-0.2 [facility] ([place]) Comment on above: Performed By: #### A DIFF, GFR, MDW, LIP, CMP, ANEU, CBC #### [address] [address] Basophils/100 WBC (Bld) 0.3 % Normal 0.0-2.5 [facility] ([place]) Comment on above: Performed By: #### A DIFF, GFR, MDW, LIP, CMP, ANEU, CBC #### [address] [address] Eosinophil, Absolute 0.0 10 3/mcL Normal 0.0-0.4 [facility] ([place]) Comment on above: Performed By: #### A DIFF, GFR, MDW, LIP, CMP, ANEU, CBC #### [address] [address] Eosinophils/100 WBC (Bld) 0.3 % Normal 0.0-7.0 [facility] ([place]) Comment on above: Performed By: #### A DIFF, GFR, MDW, LIP, CMP, ANEU, CBC #### [address] [address] Lymphocyte, Absolute 0.7 10 3/mcL Low 0.8-3.9 [facility] ([place]) Comment on above: Performed By: #### A DIFF, GFR, MDW, LIP, CMP, ANEU, CBC #### [address] [address] Lymphocytes/100 WBC (Bld) 5.9 % Low 10.0-50.0 [facility] ([place] Comment on above: Performed By: #### A DIFF, GFR, MDW, LIP, CMP, ANEU, CBC #### [address] [address] Monocyte, Absolute 0.6 10 3/mcL Normal 0.2-1.0 [facility] ([place]) Comment on above: Performed By: #### A DIFF, GFR, MDW, LIP, CMP, ANEU, CBC #### [address] [address] Monocytes/100 WBC (Bld) 5.1 % Normal 1.7-13.0 [facility] ([place]) Comment on above: Performed By: #### A DIFF, GFR, MDW, LIP, CMP, ANEU, CBC #### [address] [address] Neutrophils/100 WBC (Bld) 88.4 % High 37.0-80.0 [facility] ([place] Comment on above: Performed By: #### A DIFF, GFR, MDW, LIP, CMP, ANEU, CBC #### [address] [address] .GFRon 11-05-2023 GFR 123 ml/min/1.73sqm Normal [facility] ([place]) Comment on above: Result Comment: GFR Population [...] GFR, MDW, LIP, CMP, ANEU, CBC #### [address] [address] GFR Non- 101 ml/min/1.73sqm Normal [facility] ([place] Comment on above: Result Comment: GFR Population [...] GFR, MDW, LIP, CMP, ANEU, CBC #### [address] [address] .MDWon 11-05-2023 Monocyte Distribution Width 18.53 Normal 0.00-20. 00 [facility] ([place]) Comment on above: Result Comment: For ED adult patients suspected of sepsis, MDW<=20.0 does not rule out sepsis or risk of sepsis Performed By: #### A DIFF, GFR, MDW, LIP, CMP, ANEU, CBC #### [address] [address] .NEUABSon 11-05-2023 Neutrophil, Absolute 10.6 10 3/mcL High 2.9-6.2 A [facility] ([place]) Comment on above: Performed By: #### A DIFF, GFR, MDW, LIP, CMP, ANEU, CBC #### [address] [address] CBCon 11-05-2023 Erythrocyte distribution width (RBC) [Ratio] 17.0 % High 11.5-14.5 [facility] ([place] Comment on above: Performed By: #### A DIFF, GFR, MDW, LIP, CMP, ANEU, CBC #### [address] [address] Hematocrit (Bld) [Volume fraction] 36.9 % Low 37.0-47.0 [facility] ([place] Comment on above: Performed By: #### A DIFF, GFR, MDW, LIP, CMP, ANEU, CBC #### [address] [address] Hgb 12.2 G/dL Normal 12.0-16.0 [facility] ([place] Comment on above: Performed By: #### A DIFF, GFR, MDW, LIP, CMP, ANEU, CBC #### [place] [id number] MCH (RBC) [Entitic mass] 25.4 pg Low 27.0-31.2 [facility] ([place] Comment on above: Performed By: #### A DIFF, GFR, MDW, LIP, CMP, ANEU, CBC #### [address] [address] MCHC 33.1 G/dL Normal 33.0-37.0 [facility] ([place] Comment on above: Performed By: #### A DIFF, GFR, MDW, LIP, CMP, ANEU, CBC #### [address] [address] MCV (RBC) [Entitic vol] 76.8 fL Low 80.0-94.0 A [facility] ([place]) Comment on above: Performed By: #### A DIFF, GFR, MDW, LIP, CMP, ANEU, CBC #### [address] [address] Platelet 386 10 3/mcL Normal 130-400 [facility] ([place] Comment on above: Performed By: #### A DIFF, GFR, MDW, LIP, CMP, ANEU, CBC #### [address] [address] Platelet mean volume (Bld) [Entitic vol] 7.7 fL Normal 7.4-10.4 [facility] ([place] Comment on above: Performed By: #### A DIFF, GFR, MDW, LIP, CMP, ANEU, CBC #### [address] [address] RBC 4.81 10 6/mcL Normal 4.20-5.40 [facility] ([place] Comment on above: Performed By: #### A DIFF, GFR, MDW, LIP, CMP, ANEU, CBC #### [address] [address] WBC 12.0 10 3/mcL High 4.6-10.8 [facility] ([place] Comment on above: Performed By: #### A DIFF, GFR, MDW, LIP, CMP, ANEU, CBC #### [address] [address] CMPon 11-05-2023 Albumin Level 4.0 G/dL Normal 3.5-5.0 [facility] ([place] Comment on above: Performed By: #### A DIFF, GFR, MDW, LIP, CMP, ANEU, CBC #### [address] [address] Albumin/Globulin [Mass ratio] 1.3 {ratio} Normal 1.1-2.5 [facility] ([place] Comment on above: Performed By: #### A DIFF, GFR, MDW, LIP, CMP, ANEU, CBC #### [address] [address] ALP [Catalytic activity/Vol] 107 U/L Normal 40-135 [facility] ([place] Comment on above: Performed By: #### A DIFF, GFR, MDW, LIP, CMP, ANEU, CBC #### [address] [address] ALT [Catalytic activity/Vol] 81 U/L High 14-59 [facility] ([place] Comment on above: Performed By: #### A DIFF, GFR, MDW, LIP, CMP, ANEU, CBC #### [address] [address] AST [Catalytic activity/Vol] 115 U/L High 10-40 [facility] ([place] Comment on above: Performed By: #### A DIFF, GFR, MDW, LIP, CMP, ANEU, CBC #### [address] [address] Bili Total 1.0 mg/dL Normal 0.2-1.0 [facility] ([place]) Comment on above: Result Comment: Use of this assay is not recommended for patients undergoing treatment with eltrombopag due to the potential for falsely elevated results. Performed By: #### A DIFF, GFR, MDW, LIP, CMP, ANEU, CBC #### [address] [address] BUN/Creatinine Ratio 11 ratio Normal 7-27 [facility] ([place]) Comment on above: Performed By: #### A DIFF, GFR, MDW, LIP, CMP, ANEU, CBC #### [address] [address] Calcium [Mass/Vol] 9.6 mg/dL Normal 8.4-10.2 [facility] ([place]) Comment on above: Performed By: #### A DIFF, GFR, MDW, LIP, CMP, ANEU, CBC #### [address] [address] Chloride [Moles/Vol] 101 mmol/L Normal 98-107 [facility] ([place]) Comment on above: Performed By: #### A DIFF, GFR, MDW, LIP, CMP, ANEU, CBC #### [address] [address] CO2 [Moles/Vol] 29 mmol/L Normal 22-29 [facility] ([place] Comment on above: Performed By: #### A DIFF, GFR, MDW, LIP, CMP, ANEU, CBC #### [address] [address] Creatinine [Mass/Vol] 0.66 mg/dL Normal 0.55-1.02 [facility] ([place]) Comment on above: Performed By: #### A DIFF, GFR, MDW, LIP, CMP, ANEU, CBC #### [address] [address] Electrolyte Balance 7.0 mEq/L Normal 4.0-15.0 [facility] ([place]) Comment on above: Performed By: #### A DIFF, GFR, MDW, LIP, CMP, ANEU, CBC #### [address] [address] Globulin 3.0 G/dL Normal [facility] ([place] Comment on above: Performed By: #### A DIFF, GFR, MDW, LIP, CMP, ANEU, CBC #### [address] [address] Glucose [Mass/Vol] 103 mg/dL Normal 70-105 [facility] ([place]) Comment on above: Performed By: #### A DIFF, GFR, MDW, LIP, CMP, ANEU, CBC #### [address] [address] Potassium [Moles/Vol] 4.0 mmol/L Normal 3.5-5.1 [facility] ([place]) Comment on above: Performed By: #### A DIFF, GFR, MDW, LIP, CMP, ANEU, CBC #### [address] [address] Sodium [Moles/Vol] 137 mmol/L Normal 136-145 [facility] ([place] Comment on above: Performed By: #### A DIFF, GFR, MDW, LIP, CMP, ANEU, CBC #### [address] [address] Total Protein 7.0 G/dL Normal 6.4-8.2 [facility] ([place] Comment on above: Performed By: #### A DIFF, GFR, MDW, LIP, CMP, ANEU, CBC #### [address] [address] Urea nitrogen [Mass/Vol] 7 mg/dL Normal 7-18 [facility] ([place] Comment on above: Performed By: #### A DIFF, GFR, MDW, LIP, CMP, ANEU, CBC #### [address] [address] LABORATORYOrdered By: SYSTEM SYSTEM on 11-05-2023 Albumin [...] 11-05-2023 Lipase Level 43 U/L Normal 16-77 [facility] ([place] Comment on above: Performed By: #### A DIFF, GFR, MDW, LIP, CMP, ANEU, CBC #### [address] [address] PREGUon 11-05-2023 HCG ( test) Ql (U) Negative Normal [facility] ([place] Comment on above: Performed By: #### U A, PREGU #### [address] [address] test (u) int Not detected Invalid Interpretation Code [facility] ([place] Comment on above: Performed By: #### U A, PREGU #### [address] [address] UAon 11-05-2023 Color (U) Yellow Normal [facility] ([place] Comment on above: Performed By: #### U A, PREGU #### [address] [address] Glucose (U) [Mass/Vol] Negative Normal Negative [facility] ([place]) Comment on above: Performed By: #### U A, PREGU #### [place] [address] Ketones Ql (U) Negative Normal Negative [facility] ([place] Comment on above: Performed By: #### U A, PREGU #### [place] [address] UA Appear Clear Normal Clear [facility] ([place] Comment on above: Performed By: #### U A, PREGU #### [place] [address] UA Blood Negative Normal Negative [facility] ([place] Comment on above: Performed By: #### U A, PREGU #### [place] [address] UA Leuk Est Negative Normal Negative [facility] ([place] Comment on above: Performed By: #### U A, PREGU #### [place] [address] UA Nitrite Negative Normal Negative [facility] ([place] Comment on above: Performed By: #### U A, PREGU #### [place] [address] UA pH 6.5 Normal 5.0 - 8.0 [facility] ([place] Comment on above: Performed By: #### U A, PREGU #### [place] [address] UA Protein Negative Normal Negative [facility] ([place] Comment on above: Performed By: #### U A, PREGU #### [place] [address] UA Spec Grav 1.025 Normal 1.015-1.02 5 [facility] ([place] Comment on above: Performed By: #### U A, PREGU #### [place] [address] UA Specimen Type Clean Catch Normal [facility] ([place] Comment on above: Performed By: #### U A, PREGU #### [facility] [address] [place], [place] [address] UA Urobilinogen 0.2 E.U./dL Normal 0.2-1.0 [facility] ([place] Comment on above: Performed By: #### U A, PREGU #### [facility] [address] [place], [place] [address] Urobilinogen (U) [Mass/Vol] Negative Normal Negative [facility] ([place] Comment on above: Performed By: #### U A, PREGU #### [facility] [address] [place], [place] [address] STREP A MOLECULAR (POC)on Procedural Control Valid [facility] Strep A (POCT) Negative Negative [facility] XR Chest PA and Lateralon IMPRESSION: No acute radiographic abnormality. Dairy Clerk: [facility]ENTER[facility]ica Transcribe Date/Time: May 29 2023 4:58P Dictated by : LIUDMILA ZARAGOZA MD This examination was interpreted and the report reviewed and electronically signed by: LIUDMILA ZARAGOZA MD on May 29 2023 5:00PM [facility] DIVISION OF RADIOLOGY * * *Final Report* [...] soft tissues: Unremarkable. DIVISION OF RADIOLOGY Provider, [facility] - 05/29/2023 * * *Final Report* * [...] Unremarkable. IMPRESSION IMPRESSION: No acute radiographic abnormality. Dairy Clerk: [facility] Transcribe Date/Time: May 29 2023 4:58P Dictated by : LIUDMILA ZARAGOZA MD This examination was interpreted and the report reviewed and electronically signed by: LIUDMILA ZARAGOZA MD on May 29 2023 5:00PM EST [facility] Radiology Study observation (narrative) [facility] XR Chest PA and LateralOrder ed By: Ccf Provider on 05-29-2023 [facility] CBC panel Auto (Bld)on 04-22 Erythrocyte distribution width (RBC) [Ratio] 14.8 % 11.5 - 15.0 % [facility] Hematocrit (Bld) [Volume fraction] 38.7 % 36.0 - 46.0 % [facility] Hemoglobin (Bld) [Mass/Vol] 11.8 g/dL 11.5 - 15.5 g/dL [facility] MCH (RBC) [Entitic mass] 23.2 pg Low 26. 0 - 34.0 pg [facility] MCHC (RBC) [Mass/Vol] 30.5 g/dL 30.5 - 36.0 g/dL [facility] MCV (RBC) [Entitic vol] 76.2 fL Low 80.0 - 100.0 fL [facility] Nucleated RBC (Bld) [#/Vol] <0.01 k/ uL [facility] Platelet mean volume (Bld) [Entitic vol] 9.9 fL 9.0 - 12.7 fL [facility] Platelets (Bld) [#/Vol] 447 10*3/uL High 150 - 400 k/uL [facility] RBC (Bld) [#/Vol] 5.08 10*6/uL 3.90 - 5.20 m/uL [facility] WBC (Bld) [#/Vol] 4.94 10*3/uL 3.70 - 11.00 k/uL [facility] Comprehensive metabolic 2000 panelon 04-22-2023 Albumin [Mass/Vol] 4.6 g/dL 3.9 - 4.9 g/dL [facility] ALP [Catalytic activity/Vol] 92 U/L 34 - 123 U/L [facility] ALT [Catalytic activity/Vol] 14 U/L 7 - 38 U/L [facility] Anion gap [Moles/Vol] 10 mmol/L 9 - 18 mmol/L [facility] AST [Catalytic activity/Vol] 19 U/L 13 - 35 U/L [facility] Bilirubin [Mass/Vol] 0.4 mg/dL 0.2 - 1 .3 mg/dL [facility] Calcium [Mass/Vol] 9.3 mg/dL 8.5 - 10. 2 mg/dL [facility] Chloride [Moles/Vol] 102 mmol/L 97 - 10 5 mmol/L [facility] CO2 [Moles/Vol] 26 mmol/L 22 - 30 mmol/L [facility] Creatinine [Mass/Vol] 0.60 mg/dL 0.58 - 0.96 mg/dL [facility] Estimated Glomerular Filtration Rate 120 mL/min/1.73m >=60 mL/min/1.7 3m [facility] Glucose [Mass/Vol] 87 mg/dL 74 - 99 mg/dL [facility] Potassium [Moles/Vol] 4.2 mmol/L 3.7 - 5.1 mmol/L [facility] Protein [Mass/Vol] 7.2 g/dL 6.3 - 8.0 g/dL [facility] Sodium [Moles/Vol] 138 mmol/L 136 - 144 mmol/L [facility] Urea nitrogen [Mass/Vol] 7 mg/dL 7 - 21 mg/dL [facility] FERRITIN BLDon 04-22-2023 Ferritin [Mass/Vol] 11.4 ng/mL Low 14.7 - 205.1 ng/mL [facility] Iron and Iron binding capaci ty panelon 04-22-2023 Iron [Mass/Vol] 53 ug/dL 41 - 186 ug/dL [facility] Iron binding capacity [Mass/Vol] 498 ug/dL High 232 - 386 ug/dL [facility] Iron/TIBC [Molar ratio] 10.6 % Low 15.0 - 57.0 % [facility] Lipid 1996 panelon 4 Cholesterol [Mass/Vol] 241 mg/dL High <200 mg/dL Cl [facility] Cholesterol in HDL [Mass/Vol] 68 mg/dL >39 mg/dL [facility] Cholesterol in LDL [Mass/Vol] 153 mg/dL High <100 mg/dL [facility] Cholesterol in LDL/Cholesterol in HDL [Mass ratio] 2.25 {ratio} <2.54 [facility] Cholesterol in VLDL [Mass/Vol] 20 mg/dL <30 mg/dL [facility] Cholesterol non HDL [Mass/Vol] 173 mg/dL High <130 mg/dL [facility] Cholesterol.total/Cholester ol in HDL [Mass ratio] 3.54 {ratio} <5.10 [facility] Fasting Time 12 hrs [facility] Triglyceride [Mass/Vol] 99 mg/dL <150 mg/dL C [facility] CBC panel Auto (Bld)on 10-22 Erythrocyte distribution width (RBC) [Ratio] 16.2 % High 11.5 - 15.0 % [facility] Hematocrit (Bld) [Volume fraction] 36.0 % 36.0 - 46.0 % [facility] Hemoglobin (Bld) [Mass/Vol] 11.2 g/dL Low 11.5 - 15.5 g/dL [facility] MCH (RBC) [Entitic mass] 23.5 pg Low 26. 0 - 34.0 pg [facility] MCHC (RBC) [Mass/Vol] 31.1 g/dL 30.5 - 36.0 g/dL [facility] MCV (RBC) [Entitic vol] 75.5 fL Low 80.0 - 100.0 fL [facility] Nucleated RBC (Bld) [#/Vol] <0.01 k/ uL [facility] Platelet mean volume (Bld) [Entitic vol] 9.5 fL 9.0 - 12.7 fL [facility] Platelets (Bld) [#/Vol] 384 10*3/uL 150 - 400 k/uL [facility] RBC (Bld) [#/Vol] 4.77 10*6/uL 3.90 - 5.20 m/uL [facility] WBC (Bld) [#/Vol] 7.40 10*3/uL 3.70 - 11.00 k/uL [facility] DHEA-S BLDon 10-22-2022 DHEA-S [Mass/Vol] 218.5 ug/dL 60.9 - 337.0 ug/dL [facility] TESTOSTERONE TOTALon 023 Testosterone [Mass/Vol] 28 ng/dL <40 ng/dL C [facility] TSH Don 10-22-2022 TSH Qn 1.730 m[IU]/L 0.270 - 4.200 mIU/L [facility] MAMMO DIAGNOSTIC WITH MATA B ILATERALon 02-15-2022 MAMMO DIAGNOSTIC WITH MATA BILATERAL EXAM: MAMMO DIAGNOSTIC WITH MATA BILATERAL, US BREAST LIMITED UNILATERAL RIGHT, 02/15/2022 09:49 AM (accession [id number]), 02/15/2022 09:56 AM (accession [id number]) CLINICAL INDICATIONS: Palpable abnormality 10:00 right breast [...] Clinical correlation/managemen t. Recommendation Laterality: Right Normal [facility] MG Breast - bilateral Diagno sticon 02-15-2022 Sha Rodríguez MD - 02/15/2022 EXAM: MAMMO DIAGNOSTIC WITH MATA BILATERAL, US BREAST LIMITED UNILATERAL RIGHT, 02/15/2022 09:49 AM (accession [id number]), 02/15/2022 09:56 AM (accession [id number]) CLINICAL INDICATIONS: Palpable abnormality 10:00 right breast [...] Recommendation: Clinical correlation/managemen t. Recommendation Laterality: Right [facility] Radiology Study observation (narrative) [facility] No Panel Informationon 02-15 IMPRESSION: Negative bilateral mammogram and negative targeted right breast ultrasound. Clinical follow-up and management of the patient's symptoms recommended BI-RADS: 1: Negative Recommendation: Clinical correlation/managemen t. Recommendation Laterality: Right OLOGY EXAM: MAMMO DIAGNOSTIC WITH MATA BILATERAL, US BREAST LIMITED UNILATERAL RIGHT, 02/15/2022 09:49 AM (accession [id number]), 02/15/2022 09:56 AM (accession [id number]) CLINICAL INDICATIONS: Palpable abnormality 10:00 right breast [...] Panel InformationOrdered By: Sha Rodríguez on 02-15-2022 [facility] Work Phone: US BREAST LIMITED UNILATERAL RIGHTon 02-15-2022 US BREAST LIMITED UNILATERAL RIGHT EXAM: MAMMO DIAGNOSTIC WITH MATA BILATERAL, US BREAST LIMITED UNILATERAL RIGHT, 02/15/2022 09:49 AM (accession [id number]), 02/15/2022 09:56 AM (accession [id number]) CLINICAL INDICATIONS: Palpable abnormality 10:00 right breast [...] Clinical correlation/managemen t. Recommendation Laterality: Right Normal [facility] US Breast - right limitedon 02-15-2022 Radiology Study observation (narrative) [facility] Basophil percentageon 2021 WBC (Bld) [#/Vol] 4.9 10*3/uL 4.4-11.0 [facility]: Blood erythrocytes count (nu mber/volume)on 11-09-2021 RBC (Bld) [#/Vol] 4.58 10*6/uL 4.2-5.4 [facility]: Blood hemoglobin measurement (mass/volume)on 11-09-2021 Hemoglobin (Bld) [Mass/Vol] 11.9 g/dL 12.0-15. 0 [facility] Work Phone: Blood platelet mean volumeon 11-09-2021 Platelet mean volume (Bld) [Entitic vol] 9.5 fL 6.2-12.0 [facility] Work Phone: Determination of erythrocyte mean corpuscular volume (MCV)on 11-09-2021 MCV (RBC) [Entitic vol] 81.4 fL 81-99 [facility] Work Phone: Hematocrit Auto (Bld) [Volum e fraction]on 11-09-2021 Hematocrit (Bld) [Volume fraction] 37.3 % 37-47 [facility] Work Phone: Laboratory - Chemistry and C hemistry - challengeon 11-09-2021 HCG ( test) Ql (U) Negative [facility] Work Phone: Comment on above: Very dilute urine sp ecimens, as indicated by a low specificgravity, may not contain patient representative levels of hCG. If is still suspected, a first morning urinespecimen should be collected 48 hours later and tested. Laboratory - Hematology and Cell countson 11-09-2021 Erythrocyte distribution width (RBC) [Entitic vol] 42.7 fL 35.1-43.[address] [facility] Work Phone: Erythrocyte distribution width (RBC) [Ratio] 14.6 % 11.6-14.6 [facility] Work Phone: MCH (RBC) [Entitic mass] 26.0 pg 27.0-32.0 [facility] Work Phone: MCHC Auto (RBC) [Mass/Vol]on 11-09-2021 MCHC (RBC) [Mass/Vol] 31.9 g/dL 32-36 [facility] Work [facility]: Platelets bldon 11-09-2021 Platelets (Bld) [#/Vol] 351 10*3/uL 150-450 [facility] Work Phone: HCG QUAL UR B/Oon 10-10-2021 status Negative neg - pos [facility] Quality Check Yes [facility] CBC panel Auto (Bld)on 09-19 Erythrocyte distribution width (RBC) [Ratio] 14.7 % 11.5 - 15.0 % [facility] Hematocrit (Bld) [Volume fraction] 38.5 % 36.0 - 46.0 % [facility] Hemoglobin (Bld) [Mass/Vol] 12.8 g/dL 11.5 - 15.5 g/dL [facility] MCH (RBC) [Entitic mass] 26.4 pg 26. 0 - 34.0 pg [facility] MCHC (RBC) [Mass/Vol] 33.2 g/dL 30.5 - 36.0 g/dL [facility] MCV (RBC) [Entitic vol] 79.5 fL Low 80.0 - 100.0 fL [facility] Nucleated RBC (Bld) [#/Vol] 10*3/uL <0.01 k/ uL [facility] Platelet mean volume (Bld) [Entitic vol] 9.5 fL 9.0 - 12.7 fL [facility] Platelets (Bld) [#/Vol] 354 10*3/uL 150 - 400 k/uL [facility] RBC (Bld) [#/Vol] 4.84 10*6/uL 3.90 - 5.20 m/uL [facility] WBC (Bld) [#/Vol] 5.47 10*3/uL 3.70 - 11.00 k/uL [facility] Absolute lymphocyte counton 07-27-2021 Lymphocytes Auto (Unsp spec) [#/Vol] 0.61 10*3/uL 0.83-4.51 [facility] Work Phone: Basophil percentageon 2021 Basophil percentage 0-5 SEEN /hpf 0-5 [facility] Work Phone: Comment on above: Previous reported re sult: 0 SEEN /hpfEdited by: ALVARO on 07/27/21:1410 AMENDED REPORT 07/27/21 1410 WBC previously reported as: 0 SEEN /hpf Basophils/100 WBC (Bld) 0.2 % 0-1 [facility] Work Phone: Bilirubin [Mass/Vol] 0.50 mg/dL 0.20-1.00 [facility] Work Phone: Comment on above: For patients on eltr ombopag therapy, use of Dimension [place] TBIL is not recommended. Chloride [Moles/Vol] 105 mmol/L 98-107 [facility] Work Phone: Eosinophils/100 WBC (Bld) 0.3 % 0-5 [facility] Work Phone: Glucose [Mass/Vol] 92 mg/dL 74-[address] [facility] Work Phone: [phone] Neutrophils (Bld) [#/Vol] 5.2 10*3/uL 2.0-7.7 [facility] Work Phone: Neutrophils/100 WBC (Bld) 81.0 % 47-70 [facility] Work Phone: [phone] Potassium [Moles/Vol] 3.6 mmol/L 3.5-5.1 [facility] Work Phone: Protein [Mass/Vol] 7.8 g/dL 6.4-8.[address] [facility] Work Phone: Sodium [Moles/Vol] 138 mmol/L 136-[address] [facility] Work Phone: [phone] WBC (Bld) [#/Vol] 6.4 10*3/uL 4.4-11.[address] [facility] Work Phone: [phone] Bilirubin Test strip Ql (U)o n 07-27-2021 Bilirubin Ql (U) Negative Negative [facility] Work Phone: Blood erythrocytes count (nu mber/volume)on 07-27-2021 RBC (Bld) [#/Vol] 5.20 10*6/uL 4.2-5.4 [facility] Work Phone: Blood hemoglobin measurement (mass/volume)on 07-27-2021 Hemoglobin (Bld) [Mass/Vol] 13.8 g/dL 12.0-15. 0 [facility] Work Phone: Blood lymphocytes/100 leukoc yteson 07-27-2021 Lymphocytes/100 WBC (Bld) 9.5 % 19-41 [facility] Work Phone: Blood monocytes/100 leukocyt eson 07-27-2021 Monocytes/100 WBC (Bld) 8.7 % 0-10 [facility] Work Phone: Blood platelet mean volumeon 07-27-2021 Platelet mean volume (Bld) [Entitic vol] 9.6 fL 6.2-12.0 [facility] Work Phone: Determination of erythrocyte mean corpuscular volume (MCV)on 07-27-2021 MCV (RBC) [Entitic vol] 79.6 fL 81-99 [facility] Work Phone: Hematocrit Auto (Bld) [Volum e fraction]on 07-27-2021 Hematocrit (Bld) [Volume fraction] 41.4 % 37-47 [facility] Work Phone: Ketones Test strip Ql (U)on 07-27-2021 Ketones Ql (U) 5 mg/dl Negative [facility] Work Phone: Laboratory - Chemistry and C hemistry - challengeon 07-27-2021 HCG ( test) Ql (U) Negative [facility] Work Phone: Comment on above: Very dilute urine sp ecimens, as indicated by a low specificgravity, may not contain patient representative levels of hCG. If is still suspected, a first morning urinespecimen should be collected 48 hours later and tested. ALP [Catalytic activity/Vol] 85 U/L 45-117 [facility] Work Phone: ALT [Catalytic activity/Vol] 20 U/L 13-56 [facility] Work Phone: CO2 [Moles/Vol] 25.0 mmol/L 21.0-32.0 [facility] Work Phone: Globulin (S) [Mass/Vol] 3.6 g/dL 2.2-4.2 [facility] Work Phone: Lipase [Catalytic activity/Vol] 139 U/L 73-393 [facility] Work Phone: Urea nitrogen/Creatinine [Mass ratio] 9.9 mg/mg 10-20 [facility] Work Phone: Laboratory - Hematology and Cell countson 07-27-2021 Erythrocyte distribution width (RBC) [Entitic vol] 40.9 fL 35.1-43.[address] [facility] Work Phone: Erythrocyte distribution width (RBC) [Ratio] 14.1 % 11.6-14.6 [facility] Work Phone: Immature granulocytes/100 WBC (Bld) 0.300 % 0.0-0.9 [facility] Work Phone: Comment on above: IG% - Immature Granu locytes (promyelocytes, myelocytes and metamyelocytes) > 1% indicates that a LEFT SHIFT is Present. MCH (RBC) [Entitic mass] 26.5 pg 27.0-32.0 [facility] Work Phone: Nucleated RBC/100 WBC (Bld) [Ratio] 0 % 0-5 [facility] Work Phone: MCHC Auto (RBC) [Mass/Vol]on 07-27-2021 MCHC (RBC) [Mass/Vol] 33.3 g/dL 32-36 [facility] Work Phone: Mucus LM Ql (Urine sed)on Mucus Ql (Urine sed) 0 SEEN /hpf [facility] Work Phone: Nitrite Test strip Ql (U)on 07-27-2021 Nitrite Ql (U) Negative Negative [facility] Work Phone: No Panel Informationon 07-27 Estimated Creatinine Clearance Calc 103.75 ml/min [facility] Work Phone: Estimated GFR (MDRD) Amer 145 mL/min >60 [facility] Work Phone: Comment on above: GFR Calc Estimated GFR (MDRD) Non-Af Amer 120 mL/min >60 [facility] Work Phone: Comment on above: Non- GFR Calc Platelets bldon 07-27-2021 Platelets (Bld) [#/Vol] 343 10*3/uL 150-450 [facility] Work Phone: Protein Test strip Ql (U)on 07-27-2021 Protein Ql (U) 30 mg/dl Negative [facility] Work Phone: Serum or plasma albumin brian urement (mass/volume)on 07-27-2021 Albumin [Mass/Vol] 4.2 g/dL 3.2-5.[address] [facility] Work Phone: Serum or plasma albumin/glob ulin mass ratioon 07-27-2021 Albumin/Globulin [Mass ratio] 1.2 {ratio} 0.9-2.4 [facility] Work Phone: Serum or plasma calcium brian urement (mass/volume)on 07-27-2021 Calcium [Mass/Vol] 9.1 mg/dL 8.5-10.[address] [facility] Work Phone: Serum or plasma creatinine m easurement (mass/volume)on 07-27-2021 Creatinine [Mass/Vol] 0.61 mg/dL 0.55-1.02 [facility] Work Phone: Comment on above: The validity of the calculated GFR & GFRAA in patients over 70 years has not been determined. Clinical correlation is essential. Serum or plasma urea nitroge n measurement (mass/volume)on 07-27-2021 Urea nitrogen [Mass/Vol] 6 mg/dL 7-18 [facility] Work Phone: Squamous epithelial cells de tection in urine sediment by light microscopyon 07-27-2021 Epithelial cells.squamous LM Ql (Urine sed) 0-5 SEEN /hpf 5-10 [facility] Work Phone: Comment on above: Previous reported re sult: 0 SEEN /hpfEdited by: ALVARO on 07/27/21:1412 AMENDED REPORT 07/27/211411 SQUAM EPI previously reported as: 0 SEEN /hpf Thin prep Papanicolaou smear with manual screeningon 07-27-2021 Thin prep Papanicolaou smear with manual screening 12 U/L 15-37 [facility] Work Phone: Thin prep Papanicolaou smear with manual screening 8 5-15 [facility] Work Phone: Urine blood detectionon 07-09-2021 RBC Ql (U) Negative Negative [facility] Work Phone: RBC Ql (U) 0 SEEN /hpf 0-5 [facility] Work Phone: Urine clarityon 07-27-2021 Clarity (U) Sl. Cloudy Clear [facility] Work Phone: Urine color determinationon 07-27-2021 Color (U) Yellow Yellow [facility] Work Phone: Urine glucose detectionon Glucose Ql (U) Normal mg/dl Normal [facility] Work Phone: Urine leukocyte esterase det ection by dipstickon 07-27-2021 Leukocyte esterase Test strip Ql (U) 25 /ul Negative [facility] Work Phone: Urine pHon 07-27-2021 pH (U) 6.0 [pH] 5.0 - 8.0 [facility] Work Phone: Urine sediment bacteria coun t by microscopy (number/high power field)on 07-27-2021 Bacteria LM.HPF (Urine sed) [#/Area] RARE /hpf None Seen [facility] Work Phone: Comment on above: Previous reported re sult: 0 SEEN /hpfEdited by: ALVARO on 07/27/21:1413 AMENDED REPORT 07/27/211412 BACTERIA previously reported as: 0 SEEN /hpf Urine specific gravity measu rementon 07-27-2021 Specific gravity (U) [Rel density] 1.020 1.002-1.03 0 [facility] Work Phone: Urobilinogen Auto test strip Ql (U)on 07-27-2021 Urobilinogen Ql (U) Normal mg/dl Normal [facility] Work Phone: Vital Signs Date Time Vital Sign Value Performing Clinician Facility 07-21-2024 16:07-0400 Body height 160 cm Jaylan Syed MD Work Phone: [facility] 07-21-2024 16:07-0400 Body mass index (BMI) [Ratio] 38.09 kg/m2 Jaylan Syed MD Work Phone: [facility] 07-21-2024 16:07-0400 Body weight 97.52 kg Jaylan Syed MD Work Phone: [facility] 07-21-2024 16:07-0400 Diastolic blood pressure 88 mm[Hg] Jaylan Syed MD Work Phone: [facility] 07-21-2024 16:07-0400 Systolic blood pressure 134 mm[Hg] Jaylan Syed MD Work Phone: [facility] 07-05-2024 14:46-0400 Body temperature 97.2 [degF] Dr. Mena Vernon MD Work Phone: [facility] 07-05-2024 14:46-0400 Diastolic blood pressure 102 mm[Hg] Dr. Mena Vernon MD Work Phone: [facility] 07-05-2024 14:46-0400 Heart rate 78 /min Dr. Mena Vernon MD Work Phone: [facility] 07-05-2024 14:46-0400 Respiratory rate 16 /min Dr. Mena Vernon MD Work Phone: [facility] 07-05-2024 14:46-0400 SaO2% (BldA) [Mass fraction] 100 % Dr. Mena Vernon MD [facility] Phone: [facility] [facility] 07-[facility]-2024 14:46-0400 Systolic blood pressure 138 mm[Hg] Dr. Mena Vernon MD Work Phone: 5(844)158-553015 [place] [address] 07-05-2024 11:05-0400 Body height 157.[address] Mena Vernon MD Work Phone: 3(349)380-408915 [place] [address] 07-05-2024 11:05-0400 Body mass index (BMI) [Ratio] 40 kg/m2 Dr. Mena Vernon MD Work Phone: 1(135)350-003115 [place] [address] 07-05-2024 11:05-0400 Body weight 99.[address] Mena Vernon MD Work Phone: 3(466)927-178515 [place] [address] 07-04-2024 09:46-0400 Body temperature 98.3 [degF] Dr. Mena Vernon MD Work Phone: 4(563)455-015315 [place] [address] 07-04-2024 09:46-0400 Diastolic blood pressure 68 mm[Hg] Dr. Mena Vernon MD Work Phone: 8(747)983-577715 [place] [address] 07-04-2024 09:46-0400 Heart rate 72 /min Dr. Mena Vernon MD Work Phone: 7(772)962-749915 [place] [address] 07-04-2024 09:46-0400 Respiratory rate 18 /min Dr. Mena Vernon MD Work Phone: 9(128)376-637015 [place] [address] 07-04-2024 09:46-0400 SaO2% (BldA) [Mass fraction] 100 % Dr. Mena Vernon MD Work Phone: 8(921)838-774215 [place] [address] 07-04-2024 09:46-0400 Systolic blood pressure 116 mm[Hg] Dr. Mena Vernon MD Work Phone: 2(454)622-067415 [place] [address] 07-04-2024 06:20-0400 Body height 157.[address] Mena Vernon MD Work Phone: 7(547)753-787615 [place] [address] 07-04-2024 06:20-0400 Body mass index (BMI) [Ratio] 40 kg/m2 Dr. Mena Vernon MD Work Phone: [facility] 07-04-2024 06:20-0400 Body weight 99.[address] Mena Vernon MD Work Phone: [facility] 04-19-2024 08:46-0500 Body mass index (BMI) [Ratio] 38.27 kg/m2 Mena Vernon MD Work Phone: [facility] 04-19-2024 08:46-0500 Body weight 98 kg Mena Vernon MD Work Phone: [facility] 04-19-2024 08:46-0500 Diastolic blood pressure 84 mm[Hg] Mena Vernon MD Work Phone: [facility] 04-19-2024 08:46-0500 Heart rate 97 /min Mena Vernon MD Work Phone: [facility] 04-19-2024 08:46-0500 Respiratory rate 16 /min Mena Vernon MD Work Phone: [facility] 04-19-2024 08:46-0500 Systolic blood pressure 128 mm[Hg] Mena Vernon MD Work Phone: [facility] 04-14-2024 19:52-0500 Body mass index (BMI) [Ratio] 38.94 kg/m2 Aliza Naima CORPORATE ACCOUNTING MANAGER.METER/RELAY TECHNICIAN Work Phone: [facility] 04-14-2024 19:52-0500 Body temperature 97.39 [degF] Aliza Naima CORPORATE ACCOUNTING MANAGER.METER/RELAY TECHNICIAN Work Phone: [facility] 04-14-2024 19:52-0500 Body weight 99.7 kg Aliza Naima CORPORATE ACCOUNTING MANAGER.METER/RELAY TECHNICIAN Work Phone: [facility] 04-14-2024 19:52-0500 Diastolic blood pressure 82 mm[Hg] Aliza Naima CORPORATE ACCOUNTING MANAGER.METER/RELAY TECHNICIAN Work Phone: [facility] 04-14-2024 19:52-0500 Heart rate 102 /min Aliza Naima CORPORATE ACCOUNTING MANAGER.METER/RELAY TECHNICIAN Work Phone: [facility] 04-14-2024 19:52-0500 Respiratory rate 16 /min Aliza Mcnamara CORPORATE ACCOUNTING MANAGER.METER/RELAY TECHNICIAN Work Phone: [facility] 04-14-2024 19:52-0500 SaO2% (BldA) [Mass fraction] 96 % Aliza Mcnamara CORPORATE ACCOUNTING MANAGER.METER/RELAY TECHNICIAN Work Phone: [facility] 04-14-2024 19:52-0500 Systolic blood pressure 136 mm[Hg] Aliza Mcnamara CORPORATE ACCOUNTING MANAGER.METER/RELAY TECHNICIAN Work Phone: [facility] 11-05-2023 17:15-0400 Blood Pressure Location DIEGO FOX MD [facility] 11-05-2023 17:15-0400 Blood Pressure Method DIEGO FOX MD [facility] 11-05-2023 17:15-0400 Body height 157.5 cm DIEGO FOX MD [facility] 11-05-2023 17:15-0400 Body temperature 97.88 [degF] DIEGO FOX MD [facility] 11-05-2023 17:15-0400 Body weight 98 kg DIEGO FOX MD [facility] 11-05-2023 17:15-0400 Diastolic Blood Pressure Non-Invasive 90 mm[Hg] DIEGO FOX MD [facility] 11-05-2023 17:15-0400 Heart rate 95 /min DIEGO FOX MD [facility] 11-05-2023 17:15-0400 Respiratory rate 16 /min DIEGO FOX MD [facility] 11-05-2023 17:15-0400 Systolic Blood Pressure Non-Invasive 128 mm[Hg] DIEGO FOX MD [facility] 10-03-2023 16:56-0400 Body mass index (BMI) [Ratio] 38.62 kg/m2 Mena Vernon MD Work Phone: [facility] 10-03-2023 16:56-0400 Body temperature 98.1 [degF] Mena Vernon MD Work Phone: [facility] 10-03-2023 16:56-0400 Body weight 98.88 kg Mena Vernon MD Work Phone: [facility] 10-03-2023 16:56-0400 Diastolic blood pressure 78 mm[Hg] Mena Vernon MD Work Phone: [facility] 10-03-2023 16:56-0400 Heart rate 120 /min Mena Vernon MD Work Phone: [facility] 10-03-2023 16:56-0400 Respiratory rate 18 /min Mena Vernon MD Work Phone: [facility] 10-03-2023 16:56-0400 SaO2% (BldA) [Mass fraction] 100 % Mena Vernon MD Work Phone: [facility] 10-03-2023 16:56-0400 Systolic blood pressure 138 mm[Hg] Mena Vernon MD Work Phone: [facility] 08-31-2023 09:03-0400 Body mass index (BMI) [Ratio] 37.88 kg/m2 Madhu Moomaw CORPORATE ACCOUNTING MANAGER.METER/RELAY TECHNICIAN Work Phone: [facility] 08-31-2023 09:03-0400 Body temperature 97.3 [degF] Madhu Moomaw CORPORATE ACCOUNTING MANAGER.METER/RELAY TECHNICIAN Work Phone: [facility] 08-31-2023 09:03-0400 Body weight 97 kg Madhu Moomaw CORPORATE ACCOUNTING MANAGER.METER/RELAY TECHNICIAN Work Phone: [facility] 08-31-2023 09:03-0400 Diastolic blood pressure 97 mm[Hg] Madhu Moomaw CORPORATE ACCOUNTING MANAGER.METER/RELAY TECHNICIAN Work Phone: [facility] Comment on above: no meds this am 08-31-2023 09:03-0400 Heart rate 87 /min Madhu Moomaw CORPORATE ACCOUNTING MANAGER.METER/RELAY TECHNICIAN Work Phone: [facility] 08-31-2023 09:03-0400 Respiratory rate 18 /min Madhu Moomaw CORPORATE ACCOUNTING MANAGER.METER/RELAY TECHNICIAN Work Phone: [facility] 08-31-2023 09:03-0400 SaO2% (BldA) [Mass fraction] 100 % Madhu Moomaw CORPORATE ACCOUNTING MANAGER.METER/RELAY TECHNICIAN Work Phone: [facility] 08-31-2023 09:03-0400 Systolic blood pressure 155 mm[Hg] Madhu Moomaw CORPORATE ACCOUNTING MANAGER.METER/RELAY TECHNICIAN Work Phone: [facility] Comment on above: no meds this am 05-29-2023 16:37-0400 Body temperature 97 [degF] Shima Athy PA-C Work Phone: [facility] 05-29-2023 16:37-0400 Body weight 99.5 kg Shima Athy PA-C Work Phone: [facility] 05-29-2023 16:37-0400 Diastolic blood pressure 120 mm[Hg] Shima Athy PA-C Work Phone: [facility] 05-29-2023 16:37-0400 Heart rate 116 /min Shima Athy PA-C Work Phone: [facility] 05-29-2023 16:37-0400 Respiratory rate 16 /min Shima Athy PA-C Work Phone: [facility] 05-29-2023 16:37-0400 SaO2% (BldA) [Mass fraction] 98 % Shima Athy PA-C Work Phone: [facility] 05-29-2023 16:37-0400 Systolic blood pressure 163 mm[Hg] Shima Athy PA-C Work Phone: [facility] 04-22-2023 09:05-0500 Diastolic blood pressure 88 mm[Hg] Mena Vernon MD Work Phone: [facility] 04-22-2023 09:05-0500 Systolic blood pressure 138 mm[Hg] Mena Vernon MD Work Phone: [facility] 04-22-2023 08:18-0500 Body weight 97.98 kg Mena Vernon MD Work Phone: [facility] 04-22-2023 08:18-0500 Heart rate 88 /min Mena Vernon MD Work Phone: [facility] 10-22-2022 09:00-0400 Body height 160 cm Jaylan Syed MD Work Phone: [facility] 10-22-2022 09:00-0400 Body weight 99.79 kg Jaylan Syed MD Work Phone: [facility] 10-22-2022 09:00-0400 Diastolic blood pressure 90 mm[Hg] Jaylan Syed MD Work Phone: [facility] 10-22-2022 09:00-0400 Systolic blood pressure 148 mm[Hg] Jaylan Syed MD Work Phone: [facility] 06-22-2022 16:43-0400 Body height 157.48 cm [facility] 06-22-2022 16:43-0400 Body mass index (BMI) [Ratio] 38.4 kg/m2 [facility] 06-22-2022 16:43-0400 Body temperature 97.8 [degF] [facility] 06-22-2022 16:43-0400 Body weight 95.25 kg [facility] 06-22-2022 16:43-0400 Diastolic blood pressure 90 mm[Hg] [facility] 06-22-2022 16:43-0400 Heart rate 94 /min [facility] 06-22-2022 16:43-0400 Respiratory rate 16 /min [facility] 06-22-2022 16:43-0400 SaO2% (BldA) [Mass fraction] 100 % [facility] 06-22-2022 16:43-0400 Systolic blood pressure 167 mm[Hg] [facility] 04-10-2022 11:18-0500 Body temperature 98.01 [degF] Mena Vernon MD Work Phone: [facility] 04-10-2022 11:18-0500 Body weight 94.35 kg Mena Vernon MD Work Phone: [facility] 04-10-2022 11:18-0500 Diastolic blood pressure 74 mm[Hg] Mena Vernon MD Work Phone: [facility] 04-10-2022 11:18-0500 Heart rate 104 /min Mena Vernon MD Work Phone: [facility] 04-10-2022 11:18-0500 Respiratory rate 18 /min Mena Vernon MD Work Phone: [facility] 04-10-2022 11:18-0500 SaO2% (BldA) [Mass fraction] 99 % Mena Vernon MD Work Phone: [facility] 04-10-2022 11:18-0500 Systolic blood pressure 130 mm[Hg] Mena Vernon MD Work Phone: [facility] 04-02-2022 19:58-0500 Body temperature 98.29 [degF] Krislyn Aberegg PA Work Phone: [facility] 04-02-2022 19:58-0500 Body weight 97.07 kg Krislyn Aberegg PA Work Phone: [facility] 04-02-2022 19:58-0500 Diastolic blood pressure 86 mm[Hg] Krislyn Aberegg PA Work Phone: [facility] 04-02-2022 19:58-0500 Heart rate 100 /min Krislyn Aberegg PA Work Phone: [facility] 04-02-2022 19:58-0500 Respiratory rate 16 /min Krislyn Aberegg PA Work Phone: [facility] 04-02-2022 19:58-0500 SaO2% (BldA) [Mass fraction] 99 % Krislyn Aberegg PA Work Phone: [facility] 04-02-2022 19:58-0500 Systolic blood pressure 138 mm[Hg] Krislyn Aberegg PA Work Phone: [facility] 02-15-2022 09:06-0500 Body height 162.6 cm Venita Joanie CORPORATE ACCOUNTING MANAGER-METER/RELAY TECHNICIAN Work Phone: [facility] 02-15-2022 09:06-0500 Body mass index (BMI) [Ratio] 36.06 kg/m2 Venita Cortland CORPORATE ACCOUNTING MANAGER-METER/RELAY TECHNICIAN Work Phone: [facility] 02-15-2022 09:06-0500 Body temperature 98.29 [degF] Venita Cortland CORPORATE ACCOUNTING MANAGER-METER/RELAY TECHNICIAN Work Phone: [facility] 02-15-2022 09:06-0500 Body weight 95.3 kg Venita Joanie CORPORATE ACCOUNTING MANAGER-METER/RELAY TECHNICIAN Work Phone: [facility] 02-15-2022 09:06-0500 Diastolic blood pressure 93 mm[Hg] Venita Cortland CORPORATE ACCOUNTING MANAGER-METER/RELAY TECHNICIAN Work Phone: [facility] 02-15-2022 09:06-0500 Heart rate 86 /min Venita Cortland CORPORATE ACCOUNTING MANAGER-METER/RELAY TECHNICIAN Work Phone: [facility] 02-15-2022 09:06-0500 Systolic blood pressure 162 mm[Hg] Venita Cortland CORPORATE ACCOUNTING MANAGER-METER/RELAY TECHNICIAN Work Phone: [facility] 01-28-2022 10:02-0500 Body weight 96.16 kg Kayla Ferrer MD Work Phone: [facility] 01-28-2022 10:02-0500 Diastolic blood pressure 90 mm[Hg] Kayla Ferrer MD Work Phone: [facility] 01-28-2022 10:02-0500 Systolic blood pressure 154 mm[Hg] Kayla Ferrer MD Work Phone: [facility] 11-09-2021 10:19-0400 Body temperature 97.1 [degF] [facility] Work Phone: 11-09-2021 10:19-0400 Diastolic blood pressure 90 mm[Hg] [facility] Work Phone: 11-09-2021 10:19-0400 Heart rate 68 /min [facility] Work Phone: 11-09-2021 10:19-0400 Respiratory rate 18 /min [facility] Work Phone: 11-09-2021 10:19-0400 SaO2% (BldA) [Mass fraction] 97 % [facility] Work Phone: 11-09-2021 10:19-0400 Systolic blood pressure 142 mm[Hg] [facility] Work Phone: 11-09-2021 07:24-0400 Body height 157.48 cm [facility] Work Phone: 11-09-2021 07:24-0400 Body mass index (BMI) [Ratio] 38.8 kg/m2 [facility] Work Phone: 11-09-2021 07:24-0400 Body weight 96.3 kg [facility] Work Phone: 10-23-2021 11:02-0400 Body height 160 cm Jaylan Syed MD Work Phone: [facility] 10-23-2021 11:02-0400 Body weight 96.16 kg Jaylan Syed MD Work Phone: [facility] 10-23-2021 11:02-0400 Diastolic blood pressure 96 mm[Hg] Jaylan Syed MD Work Phone: [facility] 10-23-2021 11:02-0400 Heart rate 96 /min Jaylan Syed MD Work Phone: [facility] 10-23-2021 11:02-0400 Respiratory rate 16 /min Jaylan Syed MD Work Phone: [facility] 10-23-2021 11:02-0400 Systolic blood pressure 142 mm[Hg] Jaylan Syed MD Work Phone: [facility] 10-10-2021 11:35-0400 Diastolic blood pressure 92 mm[Hg] Jaylan Syed MD Work Phone: [facility] 10-10-2021 11:35-0400 Systolic blood pressure 136 mm[Hg] Jaylan Syed MD Work Phone: [facility] 09-19-2021 09:13-0400 Body height 160 cm Jaylan Syed MD Work Phone: [facility] 09-19-2021 09:13-0400 Body weight 97.07 kg Jaylan Syed MD Work Phone: [facility] 09-19-2021 09:13-0400 Diastolic blood pressure 96 mm[Hg] Jaylan Syed MD Work Phone: [facility] 09-19-2021 09:13-0400 Systolic blood pressure 148 mm[Hg] Jaylan Syed MD Work Phone: [facility] 07-31-2021 10:47-0400 Diastolic blood pressure 90 mm[Hg] Mena Vernon MD Work Phone: [facility] 07-31-2021 10:47-0400 Heart rate 70 /min Mena Vernon MD Work Phone: [facility] 07-31-2021 10:47-0400 Systolic blood pressure 142 mm[Hg] Mena Vernon MD Work Phone: [facility] 07-27-2021 15:59-0400 Diastolic blood pressure 75 mm[Hg] [facility] Work Phone: 07-27-2021 15:59-0400 SaO2% (BldA) [Mass fraction] 95 % [facility] Work Phone: 07-27-2021 15:59-0400 Systolic blood pressure 141 mm[Hg] [facility] Work Phone: 07-27-2021 12:03-0400 Body height 157.48 cm [facility] Work Phone: 07-27-2021 12:03-0400 Body mass index (BMI) [Ratio] 36.6 kg/m2 [facility] Work Phone: 07-27-2021 12:03-0400 Body temperature 97.6 [degF] [facility] Work Phone: 07-27-2021 12:03-0400 Body weight 90.71 kg [facility] Work Phone: 07-27-2021 12:03-0400 Heart rate 104 /min [facility] Work Phone: 07-27-2021 12:03-0400 Respiratory rate 18 /min [facility] Work Phone: Encounters Encounter Date Encounter Type Care Provider Facility Start: 12-03-2024 End: 12-03-2024 ambulatory Mena Nicolas Vernon Facility:[facility] Start: 12-03-2024 End: 12-03-2024 Emergency department patient visit Mena Nicolas Vernon Facility:[facility] Start: 11-12-2024 End: 11-15-2024 Refill Mena Vernon MD Work Phone: [facility] Comment on above: Refill Request Start: 11-09-2024 End: 11-09-2024 Telephone encounter Mena Vernon MD Work Phone: [facility] Comment on above: FMLA form Start: 08-10-2024 End: 08-10-2024 Patient encounter procedure Sergio Mcfarland DO [facility] Gastroenterology Work Phone: Start: 08-10-2024 End: 08-10-[address] Mena Vernon MD Work Phone: [facility] Work Phone: Start: 08-10-2024 End: 08-10-2024 ambulatory Mena Vernon Facility:[facility] Start: 08-03-2024 End: 10-03-2024 Follow-up encounter Jyalan Syed MD Work Phone: OB/Gynecology Start: 07-28-2024 End: 07-28-2024 ambulatory MENA VERNON Facility:[facility] Start: 07-23-2024 End: 07-23-2024 Telephone encounter aPtricia Grimes MD Work Phone: [facility] BAR[facility] Comment on above: Appointment Start: 07-21-2024 End: 07-21-2024 Patient encounter procedure Jaylan Syed MD Work Phone: OB/Gynecology Comment on above: Encounter for gyneco logical examination (general) (routine) without abnormal findings (Primary Dx); Screening for cervical cancer; Encounter for screening for human papillomavirus (HPV); BMI 38.0-38.9,adult Start: 07-21-2024 End: 07-21-2024 Patient encounter status Jaylan Syed MD Work Phone: [facility] Start: 07-21-2024 End: 07-21-2024 ambulatory JAYLAN SYED Facility:[facility] Start: 07-21-2024 Encounter for gynecological examination (general) (routine) without abnormal findings JAYLAN SYED [facility] Start: 07-12-2024 End: 07-12-[address] Mena Vernon MD Work Phone: [facility] Work Phone: Start: 07-12-2024 End: 07-12-[address] Tristen Harrison DO -Laboratory Work Phone: Start: 07-12-2024 End: 07-12-2024 ambulatory Tristen Harrison Facility:[facility] Start: 07-05-2024 Non-patient / Non-visit Dr. Beltre -[facility] Work Phone: Start: 07-05-2024 Non-patient / Non-visit Dr. Aman Austin MD -[facility] Start: 07-04-2024 ambulatory Juan Hdez [facility] Start: 07-04-2024 End: 07-05-2024 Evaluation and management of inpatient Dr. Juan Hdez MD -Medical Surgical 3 Work Phone: Start: 05-23-2024 End: 05-24-2024 ambulatory Mena Vernon MD Work Phone: [facility] [place] Comment on above: PA ISSUE! Start: 05-17-2024 End: 05-25-2024 Telephone encounter Mena Vernon MD Work Phone: [facility] [place] Comment on above: Insurance Authorizat ion Start: 04-19-2024 End: 04-19-2024 ambulatory MENA VERNON Facility:[facility] Start: 04-19-2024 End: 04-19-2024 [facility] Start: 04-19-2024 End: 04-19-2024 Office outpatient visit 25 minutes Mena Vernon MD Work Phone: [facility] [place] Comment on above: Attention deficit hy peractivity disorder (ADHD), unspecified ADHD type (Primary Dx); Essential (primary) hypertension; Iron deficiency anemia, unspecified iron deficiency anemia type; Radiculopathy, thoracic region; Encounter for long-term current use of medication; Obesity, Class II, BMI 35-39.9 Start: 04-14-2024 End: 04-14-2024 ambulatory MENA VERNON Facility:[facility] Start: 04-14-2024 End: 04-14-2024 Patient encounter procedure Aliza Mcnamara APRN.METER/RELAY TECHNICIAN Work Phone: [facility] Comment on above: Viral URI (Primary D x); Acute cough Start: 02-02-2024 End: 02-02-2024 Refill Mena Vernon MD Work Phone: [facility] Comment on above: Refill Request Start: 12-03-2023 End: 12-03-2023 Telephone encounter Mena Vernon MD Work Phone: [facility] [place] Comment on above: Insurance Authorizat ion Start: 11-07-2023 End: 11-07-2023 ambulatory DIEGO FOX MD Facility:[facility] Start: 11-07-2023 End: 11-07-2023 Patient encounter procedure DIEGO FOX MD [facility] Start: 11-05-2023 End: 11-05-2023 Emergency department patient visit DIEGO FOX MD [facility] Start: 11-05-2023 End: 11-05-2023 Patient encounter procedure Joanie Pak APRN.METER/RELAY TECHNICIAN Work Phone: [facility] Comment on above: Right upper quadrant abdominal pain (Primary Dx); Flank pain Start: 10-03-2023 End: 10-03-2023 Office outpatient visit 25 minutes Mena Vernon MD Work Phone: [facility] Comment on above: Attention deficit hy peractivity disorder (ADHD), unspecified ADHD type (Primary Dx); Iron deficiency; Primary hypertension; Class 2 obesity due to excess calories with body mass index (BMI) of 38.0 to 38.9 in adult, unspecified whether serious comorbidity present Start: 10-03-2023 Refill Karol Vergara CORPORATE ACCOUNTING MANAGER.METER/RELAY TECHNICIAN Work Phone: [facility] Comment on above: Refill Request Start: 09-03-2023 Refill Karol Vergara CORPORATE ACCOUNTING MANAGER.METER/RELAY TECHNICIAN Work Phone: [facility] [place] Comment on above: Refill Request Start: 08-31-2023 End: 08-31-2023 Patient encounter procedure Madhu Ames APRN.METER/RELAY TECHNICIAN Work Phone: [facility] Comment on above: Sore throat (Primary Dx) Start: 08-05-2023 Refill Mena gamboa MD Work Phone: [facility] Comment on above: Refill Request Start: 08-02-2023 Refill Deepti Redd APRN.CNS Work Phone: [facility] Comment on above: Refill Request Start: 07-04-2023 Refill Mena gamboa MD Work Phone: [facility] Comment on above: Refill Request Start: 07-03-2023 Telephone encounter Mena rubio MD Work Phone: [facility] [place] Comment on above: Medication Problem ( Adderall) Medication Problem Start: 06-20-2023 Telephone encounter Jaylan Syed MD Work Phone: OB/Gynecology Comment on above: Vaginal Problem Start: 05-29-2023 End: 05-29-2023 Subsequent hospital visit by physician Xr [facility] [place] Work Phone: Radiology Comment on above: Acute cough [R05.1] Start: 05-29-2023 End: 05-29-2023 Patient encounter procedure Shima Barney PA-C Work Phone: [facility] Comment on above: Viral URI [...] Mena rubio MD Work Phone: [facility] [place] Comment on above: Patient Question Start: 01-21-2023 ambulatory Mena gamboa MD Work Phone: [facility] [place] Comment on above: Medication change re quest Start: 01-09-2023 ambulatory Adilene eli MD Work Phone: Endocrinology Comment on above: Urgent Rx side effec ts Start: 11-14-2022 Refill Karol Vergara APRN.CNP Work Phone: [facility] [place] Comment on above: Refill Request Start: 10-22-2022 [...] encounter status Jaylan Syed MD Work Phone: [facility] Work Phone: Start: 07-17-2022 Refill Jaylan chung MD Work Phone: OB/Gynecology Comment on above: Refill Request Start: 07-15-2022 Telephone encounter Jaylan Syed MD Work Phone: OB/Gynecology Comment on above: Vaginal Problem Patient Update; Medi cation Request Start: 07-11-2022 Telephone encounter Mena rubio MD Work Phone: [facility] [place] Comment on above: Medication Problem ( Lexapro ) Start: 07-10-2022 End: 07-10-2022 Office outpatient visit 25 minutes Mena Vernon MD Work Phone: [facility] [place] Comment on above: Attention deficit hy peractivity disorder (ADHD), unspecified ADHD type (Primary Dx); Anxiety and depression; Dry eyes Start: 06-22-2022 End: 06-22-2022 Emergency department patient visit [facility] Start: 04-23-2022 Telephone encounter Mena [...] Patient encounter procedure Elizabeth LIEBERMAN Work Phone: [facility] Comment on above: URI, acute (Primary Dx); Nausea Start: 03-19-2022 Telephone encounter Mena rubio MD Work Phone: [facility] Comment on above: Medication Problem Start: 02-15-2022 ambulatory VENITA NAIR Facility: [facility] Start: 02-15-2022 End: 02-15-2022 Subsequent hospital visit by physician Venita Nair CORPORATE ACCOUNTING MANAGER-METER/RELAY TECHNICIAN Work Phone: [facility] [place] Comment on above: Arrived Start: 02-15-2022 End: 02-15-2022 Office outpatient new 45 minutes Venita Nair CORPORATE ACCOUNTING MANAGER-METER/RELAY TECHNICIAN Work Phone: [facility] [place] Comment on above: Breast pain (Primary Dx); Mass of right breast, unspecified quadrant Start: 01-28-2022 Telephone encounter Mena rubio MD Work Phone: [facility] Comment on above: fax orders to [facility] Patient Question Start: 01-28-2022 End: 01-28-2022 Patient encounter procedure Kayla Ferrer MD Work Phone: OB/Gynecology Comment on above: Breast pain (Primary Dx); Large breasts Start: 01-15-2022 Telephone encounter Mena rubio MD Work Phone: [facility] [place] Comment on above: Appointment Start: 12-31-2021 Refill Mena gamboa MD Work Phone: [facility] [place] Comment on above: Refill Request (que ent wants brand name Adderall rx) Start: 12-28-2021 Telephone encounter Mena rubio MD Work Phone: [facility] [place] Comment on above: Med Change Request Start: 11-26-2021 ambulatory Mena gamboa MD Work Phone: [facility] [place] Comment on above: Rx Question Start: 11-09-2021 End: 11-09-2021 ambulatory Jaylan Syed MD Work Phone: [facility] Work Phone: Comment on above: Encounter for steril ization (Primary Dx) Start: 11-09-2021 Patient encounter procedure Jaylan Syed MD Work Phone: [facility] Start: 11-09-2021 End: 11-09-2021 Admission to same day surgery center [facility] Start: 10-31-2021 End: 10-31-2021 Office outpatient visit 40 minutes Mena Vernon MD Work Phone: [facility] [place] Comment on above: Attention deficit hy peractivity [...] Mena rubio MD Work Phone: [facility] [place] Comment on above: Medication Question Start: 10-10-2021 [...] Mena gamboa MD Work Phone: [facility] [place] Comment on above: Refill Request Start: 08-09-2021 ambulatory Mena gamboa MD Work Phone: [facility] [place] Comment on above: Barky Cough Start: 07-31-2021 End: 07-31-2021 Office outpatient visit 40 minutes Mena Vernon MD Work Phone: [facility] [place] Comment on above: Attention deficit hy peractivity disorder (ADHD), unspecified ADHD type (Primary Dx); Tremor; Eyelid twitch; Acne vulgaris; Class 2 obesity due to excess calories with body mass index (BMI) of 37.0 to 37.9 in adult, unspecified whether serious comorbidity present Start: 07-27-2021 End: 07-27-2021 Emergency department patient visit [facility] Procedures Date Procedure Procedure Detail [...] 08-31-2023 STREP A MOLECULAR (POC) Albert Gutierrez APRN.METER/RELAY TECHNICIAN Work Phone: Start: 05-29-2023 Radiologic exam ches t 2 views Shima Barney PA-C Work Phone: Start: 02-15-2022 Us breast uni real t haile with image limited Venita Nair CORPORATE ACCOUNTING MANAGER-METER/RELAY TECHNICIAN Work Phone: Start: 02-15-2022 Diagnostic mammograp hy computer-aided detcj bi Venita Nair CORPORATE ACCOUNTING MANAGER-METER/RELAY TECHNICIAN Work Phone: Start: 11-09-2021 Laparoscopic salpingectomy Start: 10-10-2021 Urine test visual color cmprsn meths Jaylan Syed MD Work Phone: Start: 07-31-2021 Adult depression scr eening assessment Mena Vernon MD Work Phone: Plan of Treatment Date Care Activity Detail Author Start: 07-21-2029 Screening for malignant neoplasm of cervix Cervical Cancer Screening [facility] Start: 12-08-2028 Tetanus vaccination TETANUS [facility] Start: 12-08-2028 Urine microalbumin profile [facility] Start: 07-28-2025 Annual PCP Team Chronic Disease Visit Annual PCP Team Chronic Disease Visit [facility] Start: 07-22-2025 End: 07-22-2025 Patient encounter procedure 07/22/2025 1:40 PM EDT Office Visit OB/Gynecology [address] [place] [id number] Jaylan Syed MD [address] [place] [address] annual OB/Gynecology Comment on above: annual Start: 07-04-2025 HPV TESTING HPV TESTING [facility] Start: 07-04-2025 PAP TESTING PAP TESTING [facility] Start: 07-04-2025 Screening for malignant neoplasm of cervix [facility] Start: 04-19-2025 Annual PCP Team Chronic Disease Visit Annual PCP Team Chronic Disease Visit [facility] Start: 04-19-2025 BP Controlled (<130/80) BP Controlled (<130/80) [facility] Start: 04-04-2025 End: 04-04-2025 Patient encounter procedure 04/04/2025 2:40 PM EST Office Visit [facility] [place] [address] [place] [address] Mena Vernon MD [address] [place] [address] 3 month f/u [facility] [place] Comment on above: 3 month f/u Start: 11-18-2024 End: 11-18-2024 Patient encounter procedure 11/18/2024 9:20 AM EDT Office Visit OB/Gynecology [address] [place] [id number] Kayla Denny MD [address] [facility] [place] [address] Ovarian cyst found on hospital stay, unrelated iss OB/Gynecology Comment on above: Ovarian cyst found on hospital stay, unr elated iss Start: 11-08-2024 Influenza vaccination [facility] Start: 10-27-2024 End: 10-27-2024 Patient encounter procedure 10/27/2024 10:40 AM EDT Office Visit [facility] [place] [address] [facility] [place] [address] Mena Vernon MD [address] [facility] [place] [address] 3 month f/u [facility] [place] Comment on above: 3 month f/u Start: 10-02-2024 Annual PCP Team Chronic Disease Visit Annual PCP Team Chronic Disease Visit [facility] Start: 09-06-2024 [facility]: Postponed from 11/09/2023 (Declined at t his time) Start: 08-10-2024 C reactive protein [Mass/volume] in Serum or Plasma [facility] Start: 08-10-2024 CBC W Auto Differential panel - Blood [facility] Start: 08-10-2024 Comprehensive metabolic 2000 panel - Serum or Plasma [facility] Start: 08-10-2024 Erythrocyte sedimentation rate [facility] Start: 07-28-2024 End: 07-28-2024 Patient encounter procedure 07/28/2024 9:20 AM EDT Office Visit [facility] [place] [address] [facility] [place] [address] Mena Vernon MD [address] [facility] [place] [address] 3 month follow up [facility] [place] Comment on above: 3 month follow up Start: 07-23-2024 End: 07-23-2024 Patient encounter procedure 07/23/2024 9:20 AM EDT Office Visit [facility] [place] [address] [facility], [place] [address] Mena Vernon MD [address] [place] [address] 3 month follow up [facility] [place] Comment on above: 3 month follow up Start: 07-21-2024 End: 07-21-2024 Patient encounter procedure 07/21/2024 4:00 PM EDT Office Visit OB/Gynecology [address] [place] [facility] [place] [address] Jaylan Syed MD [address] [facility] [place] [address] Annual visit OB/Gynecology Comment on above: Annual visit Start: 07-20-2024 End: 07-20-2024 Patient encounter procedure 07/20/2024 8:20 AM EDT Office Visit [facility] [place] [address] [facility] [place] [address] Mena Vernon MD [address] [place] [address] 3 month follow up [facility] [place] Comment on above: 3 month follow up Start: 07-05-2024 Patient discharge [facility] Start: 07-05-2024 Cytomegalovirus IgM antibody assay [facility] Start: 07-05-2024 Immunoglobulin measurement [facility] Start: 07-05-2024 Laboratory test [facility] Start: 07-05-2024 Serum immunofixation [facility] Start: 07-05-2024 End: 07-05-2024 [facility] Start: 07-04-2024 Following clinical pathway protocol [facility] Start: 07-04-2024 Assessment of risk of venous thromboembolism [facility] Start: 07-04-2024 Incentive spirometry [facility] Start: 07-04-2024 Insertion of catheter into peripheral vein [facility] Start: 07-04-2024 Measuring intake and output [facility] Start: 07-04-2024 Oxygen therapy [facility] Start: 07-04-2024 Providing care according to standard [facility] Start: 07-04-2024 Referral to gastroenterology service [facility] Start: 07-04-2024 Referral to general surgeon [facility] Start: 07-04-2024 [facility] Start: 07-04-2024 Verification routine [facility] Start: 07-04-2024 Hospital admission, emergency, from emergency room, medical nature [facility] Start: 07-04-2024 Admission procedure [facility] Start: 07-04-2024 End: 07-04-2024 [facility] Start: 07-04-2024 Gamma glutamyl transferase measurement [facility] Start: 04-22-2024 Hepatitis B Vaccine (1 of 3 - 19+ 3-dose series) Hepatitis B Vaccine (1 of 3 - 19+ 3-dose series) [facility] Comment on above: Postponed from 08/14/2006 (Declined at t his time) Start: 04-22-2024 Hepatitis B Vaccine (1 of 3 - 3-dose series) Hepatitis B Vaccine (1 of 3 - 3-dose series) [facility] Comment on above: Postponed from 1987 (Declined at t his time) Start: 04-19-2024 End: 07-19-2024 CBC panel - Blood by Automated count [facility] Comment on above: Expected: 04/19/2024, Expires: Start: 04-19-2024 End: 07-19-2024 Comprehensive metabolic 2000 panel - Serum or Plasma [facility] Work Phone: Comment on above: Expected: 04/19/2024, Expires: Start: 04-19-2024 End: 07-19-2024 Ferritin [Mass/volume] in Serum or Plasma [facility] Comment on above: Expected: 04/19/2024, Expires: Start: 04-19-2024 End: 07-19-2024 Iron and Iron binding capacity panel - Serum or Plasma [facility] Comment on above: Expected: 04/19/2024, Expires: Start: 04-19-2024 End: 07-19-2024 Lipid 1996 panel - Serum or Plasma [facility] Comment on above: Expected: 04/19/2024, Expires: Start: 04-19-2024 End: 04-19-2024 Patient encounter procedure 04/19/2024 8:40 AM EST Office Visit Internal Medicine [place] [address] [facility] [place] [address] Mena Vernon MD [address] [place] [address] 3 month follow up [facility] [place] Comment on above: 3 month follow up Start: 01-13-2024 End: 01-13-2024 Patient encounter procedure 01/13/2024 8:20 AM EST Office Visit [facility] [place] [address] [facility] [place] [address] Mena Vernon MD [address] [place] [address] 3 month follow up [facility] [place] Comment on above: 3 month follow up Start: 11-09-2023 Influenza vaccination [facility] Start: 10-24-2023 End: 10-24-2023 Patient encounter procedure 10/24/2023 9:00 AM EDT Office Visit OB/Gynecology [address] [place] [address] Jaylan Syed MD [address] [facility] [place] [address] annual OB/Gynecology Comment on above: annual Start: 10-03-2023 End: 10-03-2023 Patient encounter procedure 10/03/2023 4:20 PM EDT Office Visit [facility] [place] [address] [facility] [place] [address] Mena Vernon MD [address] [facility] [place] [address] 3 month follow up [facility] [place] Comment on above: 3 month follow up Start: 09-07-2023 Influenza [facility] Comment on above: Postponed from 11/08/2022 (Declined at t his time) Start: 04-10-2023 COVID-19 VACCINE (3 - Booster for Pfizer series) COVID-19 VACCINE (3 - Booster for Pfizer series) [facility] Comment on above: Postponed from 04/04/2021 (Declined at t his time) Start: 04-10-2023 COVID-19 VACCINE (3 - Pfizer series) COVID-19 VACCINE (3 - Pfizer series) [facility] Comment on above: Postponed from 04/04/2021 (Declined at t his time) Start: 04-10-2023 HEPATITIS B (1 of 3 - 3-dose series) HEPATITIS B (1 of 3 - 3-dose series) [facility] Comment on above: Postponed from 1987 (Declined at t his time) Start: 04-10-2023 Hepatitis B Vaccine (1 of 3 - 3-dose series) Hepatitis B Vaccine (1 of 3 - 3-dose series) [facility] Comment on above: Postponed from 1987 (Declined at t his time) Start: 11-08-2022 Covid-19 Vaccine ( season) Covid-19 Vaccine ( season) [facility] Start: 11-08-2022 Influenza vaccination [facility] Start: 09-06-2022 Influenza vaccination INFLUENZA (#1) [facility] Comment on above: Postponed from 11/08/2021 (Declined at t his time) Start: 07-31-2022 Adult depression screening assessment DEPRESSION SCREENING [facility] Start: 11-09-2021 Patient discharge [facility] Work Phone: Start: 11-09-2021 Ambulation without limitation [facility] Work Phone: Start: 11-09-2021 Medical regimen orders management [facility] Work Phone: Start: 11-09-2021 Medication education [facility] Work Phone: Start: 11-09-2021 Procedure discontinued [facility] Work Phone: Start: 11-09-2021 Taking patient vital signs [facility] Work Phone: Start: 11-09-2021 Vital signs measurements [facility] Work Phone: Start: 11-09-2021 [facility] Work Phone: Start: 11-08-2021 Influenza vaccination [facility] Start: 09-19-2021 End: 11-19-2021 Thyrotropin [Units/volume] in Serum or Plasma [facility] Work Phone: Comment on above: Expected: 09/19/2021, Expires: Start: 07-08-2021 COVID-19 VACCINE (3 - Booster for Pfizer series) COVID-19 VACCINE (3 - Booster for Pfizer series) [facility] Start: 04-04-2021 COVID-19 VACCINE (3 - Booster for Pfizer series) COVID-19 VACCINE (3 - Booster for Pfizer series) [facility] Start: 08-14-2014 HPV Vaccine (1 - 3-dose SCDM series) HPV Vaccine (1 - 3-dose SCDM series) [facility] Start: 08-14-2008 Screening for malignant neoplasm of cervix CERVICAL CANCER SCREENING DISCUSSION [facility] Start: 08-14-2006 Hepatitis B Vaccine (1 of 3 - 19+ 3-dose series) Hepatitis B Vaccine (1 of 3 - 19+ 3-dose series) [facility] Start: 08-14-2005 BP Controlled (<130/80) BP Controlled (<130/80) [facility] Start: 08-14-2005 HEPATITIS C SCREENING HEPATITIS C SCREENING [facility] Start: 08-14-2002 HIV screening HIV SCREENING DISCUSSION [facility] Start: 1987 HEPATITIS B (1 of 3 - 3-dose series) HEPATITIS B (1 of 3 - 3-dose series) [facility] Start: 1987 Hepatitis C screening HEPATITIS C VIRUS SCREENING [facility] Alanine aminotransfe rase [Enzymatic activity/volume] in Serum or Plasma [facility] Albumin [Mass/volume ] in Serum or Plasma [facility] Albumin [Moles/volum e] in Serum or Plasma [facility] Albumin/Globulin ratio [facility] Alkaline phosphatase [Enzymatic activity/volume] in Serum or Plasma [facility] Anion gap in Serum o r Plasma [facility] Bilirubin, total measurement [facility] BUN/Creatinine ratio [facility] Calcium [Mass/volume ] in Serum or Plasma [facility] Carbon dioxide, tota l [Moles/volume] in Central venous blood [facility] Chitobioside IgA Ab [Units/volume] in Serum or Plasma by Immunoassay [facility] Creatinine [Mass/vol ume] in Serum or Plasma [facility] End: 02-27-2023 Diagnostic mammography computer-aided detcj bi [facility] DIAGNOSTIC BILAT Radiology Routine Breast pain Large breasts 1 Occurrences starting 01/28/2022 until 02/27/2023 [facility] Work Phone: Comment on above: 1 Occurrences starting 01/28/2022 until 02/27/2023 Electrophoresis: [id number] [facility] Electrophoresis: alexa ma globulin [facility] Endometrial bx w/wo endocervix bx w/o dilat spx ENDOMETRIAL BIOPSY Procedures Routine Menorrhagia with regular cycle Ordered: 09/19/2021 [facility] Work Phone: Comment on above: Ordered: 09/19/2021 Eboni Alcala virus c apsid IgG Ab [Units/volume] in Serum [facility] Eboni Alcala virus c apsid IgM Ab [Units/volume] in Serum [facility] Eboni Alcala virus n uclear IgG Ab [Units/volume] in Cerebral spinal fluid [facility] Eboni-Alcala virus serologic test [facility] Gliadin peptide IgA Ab [Units/volume] in Serum [facility] Gliadin peptide IgG Ab [Units/volume] in Serum [facility] Globulin measurement [facility] Glucose [Mass/volume ] in Serum or Plasma [facility] Hepatic function panel [facility] Hepatitis A virus Ig M Ab [Presence] in Serum [facility] Hepatitis B core ant ibody measurement, IgM type [facility] Hepatitis B surface antigen measurement [facility] Hepatitis C antibody measurement [facility] IgA [Mass/volume] in Serum or Plasma [facility] IgE [Units/volume] i n Serum or Plasma [facility] IgG [Mass/volume] in Serum or Plasma [facility] IgG subclass 1 [Mass/volume] in Serum [facility] IgG subclass 2 [Mass/volume] in Serum [facility] IgG subclass 3 [Mass/volume] in Serum [facility] IgG subclass 4 [Mass/volume] in Serum [facility] IgM [Mass/volume] in Serum or Plasma [facility] Laboratory data interpretation [facility] Laminaribioside IgG Ab [Units/volume] in Serum or Plasma by Immunoassay [facility] Mannobioside IgG Ab [Units/volume] in Serum or Plasma by Immunoassay [facility] Measurement of funga l antibody [facility] Measurement of immunoglobulin A in serum specimen [facility] Measurement of renal function [facility] Mitochondria Ab [Pre sence] in Serum [facility] Neutrophil cytoplasm ic Ab.classic [Units/volume] in Serum [facility] Neutrophil cytoplasm ic Ab.perinuclear.atypical [Titer] in Serum by Immunofluorescence [facility] P-ANCA measurement [facility] PAP TEST PAP TEST Lab Rou satish Screening for cervical cancer Encounter for screening for human papillomavirus (HPV) Ordered: 07/21/2024 [facility] Work Phone: Comment on above: Ordered: 07/21/2024 Patient Education [facility] Work Phone: Patient referral [facility] Work Phone: PELVIC US I PELVIC US I An c Imaging Routine Menorrhagia with regular cycle Ordered: 09/19/2021 [facility] Work Phone: Comment on above: Ordered: 09/19/2021 Potassium measurement [facility] Protein electrophore sis panel - Serum or Plasma [facility] Serum chloride measurement [facility] Smooth muscle Ab [Pr esence] in Serum [facility] Sodium measurement [facility] SURGICAL PATHOLOGY SURGICAL PATH OLOGY Lab Routine Menorrhagia with regular cycle Ordered: 10/10/2021 [facility] Work Phone: Comment on above: Ordered: 10/10/2021 Tissue transglutamin ase IgA Ab [Units/volume] in Serum [facility] Total protein measurement [facility] TOX SCREEN ROUT UR TOX SCREEN RO UT UR Lab Routine Encounter for long-term current use of medication Ordered: 04/10/2022 [facility] Work Phone: Comment on above: Ordered: 04/10/2022 Urea nitrogen [Mass/ volume] in Serum or Plasma [facility] End: 02-27-2023 Us breast uni real time with image limited US BREAST LTD RT Radiology Routine Breast pain Large breasts 1 Occurrences starting 01/28/2022 until 02/27/2023 [facility] Work Phone: Comment on above: 1 Occurrences starting 01/28/2022 until 02/27/2023 [facility] Immunizations Immunization Date Immunization Notes Care Provider Brenda roldan 02-07-2021 influenza, injectabl e, quadrivalent, preservative free Mena Vernon MD Work Phone: [facility] 02-07-2021 influenza virus vaccine, unspecified formulation Venita Nair CORPORATE ACCOUNTING MANAGER-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/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 TECHNICIAN Work Phone: [facility] 12-08-2018 Influenza virus vaccine [facility] 12-08-2018 influenza, injectabl e, quadrivalent, preservative free Mena Vernon MD Work Phone: [facility] 12-08-2018 influenza, seasonal, injectable, preservative free Mena Vernon MD Work Phone: [facility] 12-08-2018 tetanus toxoid, redu tenisha diphtheria toxoid, and acellular pertussis vaccine, adsorbed [facility] 11-26-2018 influenza, injectabl e, quadrivalent, contains preservative Mena Vernon MD Work Phone: [facility] 11-11-2018 tetanus toxoid, redu tenisha diphtheria toxoid, and acellular pertussis vaccine, adsorbed Mena Vernon MD Work Phone: [facility] Work Phone: 03-12-2016 tetanus toxoid, redu tenisha diphtheria toxoid, and acellular pertussis vaccine, adsorbed Mena Vernon MD Work Phone: [facility] 02-08-2014 tetanus toxoid, redu tenisha diphtheria toxoid, and acellular pertussis vaccine, adsorbed Mena Vernon MD Work Phone: [facility] Payers Date Payer Category Payer Self-pay [id number] 2022 Unknown [id number] 2019 Medicaid [employer] [facility] [id number] 2019-Present [phone] [address] [place] [address] Medicaid [id number] 2019 Medicaid [id number] 2015 Unknown [id number] 2015 Unknown [id number] 1987 Unknown [id number] 1987 Unknown [id number] 1987 Unknown [id number] 1987 Unknown [id number] 1987 Unknown [id number] Self-pay SEL[employer] PAY INSURANCE [id number] Unknown [id number] Unknown [id number] Unknown [id number] Unknown [id number] Unknown [id number] Unknown [id number] Unknown [id number] Unknown [id number] Unknown [id number] Unknown [id number] Social History Date Type Detail Facility [facility] Work Phone: Start: 07-27-2021 End: 06-22-2022 Tobacco smoking status [facility] Unknown if ever smoked [facility] Start: 01-18-2019 None [facility] Start: 1985 Sex Assigned At Female C [facility] Start: 12-28-2014 End: 07-21-2024 Tobacco smoking status WAIS Ex-smoker [facility] End: 06-03-2008 History of tobacco use Current smoker [facility] End: 06-03-2008 History of tobacco use Cigarette Smoker [facility] Start: 12-28-2014 End: 07-21-2024 Tobacco use and exposure Smokeless tobacco non-user [facility] Start: 07-31-2021 End: 07-21-2024 Alcohol intake Current non-drinker of alcohol (finding) [facility] Start: 04-30-2021 End: 07-10-2022 History SDOH Alcohol Frequency 3 [facility] Start: 04-30-2021 End: 07-10-2022 History SDOH Alcohol Std Drinks 1 [facility] Start: 04-30-2021 End: 07-10-2022 History SDOH Social Connections Membership 2 [facility] Start: 04-30-2021 History SDOH Physica l Activity MPS 6 [facility] Start: 04-30-2021 History SDOH Financial 4 [facility] Start: 11-23-2019 Education 21 [facility] Start: 11-09-2013 End: 01-28-2022 Tobacco Comment 2 Cigarettes per week [facility] Start: 1985 Sex Assigned At Not on file C [facility] Start: 07-21-2021 End: 02-15-2022 Exposure to SARS-CoV-2 (event) Not sure [facility] Start: 02-15-2022 Alcohol intake Current drinke r of alcohol (finding) [facility] Start: 07-10-2022 History SDOH Social Connections Phone 5 [facility] Start: 07-10-2022 End: 11-12-2024 History of Social function [facility] Start: 07-10-2022 End: 11-12-2024 Social connection and isolation panel [facility] Do you belong to any clubs or organizations such as nondenominational groups, unions, fraternal or athletic groups, or school groups? No [facility] Are you now , , , , never or living with a partner? [facility] How often to you hav e a drink containing alcohol? 2-4 times a month [facility] How many standard dr inks containing alcohol do you have on a typical day? 1 or 2 [facility] How often do you hav e 6 or more drinks on 1 occasion? Never [facility] How hard is it for y ou to pay for the very basics like food, housing, medical care, and heating Somewhat hard [facility] Start: 02-09-2012 Adult Depression Screening Assessment 1 [facility] Do you feel stress - tense, restless, nervous, or anxious, or unable to sleep at night because your mind is troubled all the time - these days [OSQ] Only a little [facility] (I/We) worried wheth er (my/our) food would run out before (I/we) got money to buy more. Never true [facility] In the past 12 month s, was there a time when you were not able to pay the mortgage or rent on time? Yes [facility] Start: 09-13-2021 Gender identity Identifies as female gender (finding) [facility] Start: 07-04-2024 End: 07-05-2024 Sex Female (finding) [facility] How often to you hav e a drink containing alcohol? Monthly or less [facility] Do you feel stress - tense, restless, nervous, or anxious, or unable to sleep at night because your mind is troubled all the time - these days [OSQ] To some extent [facility] NEGATED: Highlighted row [facility] NEGATED: Highlighted row Not [facility] Goals Date Patient Goal Desired Activity /State Functional Status Date Assessment Result Facility 11-12-2024 Total score [AUDIT-C] 1 11/13/19 11:16 AM EDT User, Mag [facility] 11-12-2024 How often to you hav e a drink containing alcohol? Monthly or less 11/12/2024 11:16 AM EDT User, Mag Monthly or less [facility] 11-12-[address] inks containing alcohol do you have on a typical day? 1 or 2 11/12/2024 11:16 AM EDT User, Asiat 1 or 2 [facility] 11-12-2024 How often do you hav e 6 or more drinks on 1 occasion? Never 11/12/2024 11:16 AM EDT User, Mychart Never [facility] 07-05-2024 Functional status Ambulates;Up ad maikol [facility] Work Phone: 11-05-2023 Functional Status Independent [place] Saad sarmiento [facility] 11-05-2023 Functional Status Standard Safet y ID band on, Call device within reach, Bed in low position, Wheels locked, Upper/Half-Length side-rails up, personal items within reach, Bedside Cart Locked, Visitor at bedside [facility] 09-16-2014 Are you deaf, or do you have serious difficulty hearing No 09/16/2014 4:09 PM EDT Namrata Miguel Cma No [facility] 09-16-2014 Are you blind, or do you have serious difficulty seeing, even when wearing glasses No 09/16/2014 4:09 PM EDT Namrata Miguel Cma [facility] 09-16-2014 Do you have serious difficulty walking or climbing stairs No 09/16/2014 4:09 PM EDT Namrata Miguel Cma [facility] 09-16-2014 Do you have difficul ty dressing or bathing No 09/16/2014 4:09 PM EDT Namrata Miguel Cma [facility] 09-16-2014 Because of a physica l, mental, or emotional condition, do you have difficulty doing errands alone such as visiting a physician's office or shopping No 09/16/2014 4:09 PM EDT Namrata Miguel Cma [facility] Mental Status Date Assessment Result Facility 07-04-2024 Cognitive function Voice/Name [facility] Work Phone: 11-05-2023 Mental Status Orientation Oriented x 4 [facility] 11-05-2023 Mental Status [facility] 11-09-2021 Cognitive function Voice/Name [facility] Work Phone: 09-16-2014 Because of a physica l, mental, or emotional condition, do you have serious difficulty concentrating, remembering, or making decisions No 09/16/2014 4:09 PM EDT Namrata Miguel Cma [facility] Clinical Notes 11-11-2018 to 11-15-2024 Telephone [...] up. Last had VV July and April. [facility] 11-15-2024 Miscellaneous Notes Formattin g of [...] follow up. Last had VV July and F2april. Prescription Refill Information The patient has been [...] 2024 11:51 AM documented in this encounter [facility] 11-12-2024 Telephone encount er Note Prescription [...] Baugh LPN November 12, 2024 11:51 AM [facility] 11-09-2024 Telephone encount er Note Patients (Thien Worley) drops off FMLA form for . Form states that they need to be completed by 11/12/24. Patient is aware that provider is out until 11/12/24. Forms at nurse's desk Closed in error [facility] 11-09-2024 Miscellaneous Notes Formattin g of this note might be different from the original. Patients (Thien Worley) drops off FMLA form for . Form states that they need to be completed by 11/12/24. Patient is aware that provider is out until 11/12/24. Forms at nurse's desk Closed in error documented in this encounter [facility] 08-10-2024 Progress note [facility] 08-03-2024 Progress note Formatting of t his note might be different from the original. Send letter about normal pap if she does not have mychart. Jaylan Syed MD [facility] 08-03-2024 Miscellaneous Notes Send letter about normal pap if she does not have mychart. Jaylan Syed MD documented in this encounter [facility] 07-28-2024 Note HNO ID: [id number] Author: MENA VERNON MD Service: ? Author Type: Physician Type: Progress Notes Filed: 07/28/2024 13:04 Note Text: VIRTUAL VISIT PROGRESS NOTE This is a virtual visit using [employer] Zoom Video Visit. It required patient-provider interaction for the medical decision making as documented below. I have communicated my name and active licensure. The patient's identity and physical location were verified at the time of this visit. Either the patient or their legal patient representative has been informed of the risks [...] is scheduled to follow up with a kettle operator head, Dr. Mcfarland, on August 10. During her hospitalization, Liudmila experienced abdominal pain, which has since resolved. She recalls a similar episode in October, during which she was diagnosed with two gallstones at [facility]. She did not experience any pain after that episode and believes she may have passed the stones. Liudmila was kept NPO during her recent hospitalization and expresses frustration with the [id number] instructions regarding her diet. She was eventually [...] referred to a bariatric specialist by her LABELS MOLDER, Dr. Syed, but has not yet pursued [...] SALPINGECTOMY Bilateral 11/09/2021 Laparoscopic B/L Salpingectomy at [facility]-Dr. Syed TONSILLECTOMY PRIMARY/SECONDARY FAMILY HISTORY Problem Relation [...] eyes as needed (more content not included)... [facility] 07-23-2024 Miscellaneous Notes Lvm for pt to c/b and schedule new pt appt with Dr. Grimes for Interested in wt loss and possible surgery per referral request from Dr. Syed. documented in this encounter [facility] 07-23-2024 Telephone encounter Note Lvm for pt to c/b and schedule new pt appt with Dr. Grimes for Interested in wt loss and possible surgery per referral request from Dr. Syed. [facility] 07-21-2024 Note HNO ID: [id number] Author: JAYLAN SYED MD Service: ? Author [...] wasn't her gallbladder. . 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 As applicable, any other physician, advance practice provider, medical student, or other health professional student that will be observing or involved in the sensitive examination for educational or training purposes was discussed with the Patient or Authorized Railroad Watchman. The Patient or Authorized Railroad Watchman has agreed to proceed with the sensitive [...] external genitalia normal, normal Bartholin's glands, urethra, Keokee's glands, no vulvar lesions, no cervical lesions, [...] Desires wt management referal Jaylan Syed MD [facility] 07-21-2024 History of Presen t illness Narrative Liudmila is a 38 year old who presents for an annual gynecologic exam with complaints, GI issues. Had a hospitalization for abd. pain and dx w/ acute hepatitis as some type. Saw Friend. Not sure what to do now, was told it wasn't her gallbladder. . 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 As applicable, any other physician, advance practice provider, medical student, or other health professional student that will be observing or involved in the sensitive examination for educational or training purposes was discussed with the Patient or Authorized Railroad Watchman. The Patient or Authorized Railroad Watchman has agreed to proceed with the sensitive [...] external genitalia normal, normal Bartholin's glands, urethra, Keokee's glands, no vulvar lesions, no cervical lesions, [...] Jaylan Syed MD documented in this encounter [facility] 07-05-2024 Consult note [facility] 07-05-2024 Discharge summary [facility] 07-05-2024 Note [facility] Medical Records Department [address] [place] [address] Discharge Summary 07/05/24 1333 MR#: [id number] Acct: [id number] Name: LIUDMILA WORLEY Rep #: [id number] : 1985 38 From: Tristen Harrison DO PCP: Dr. Mena Vernon MD Status:DIS IN [place] [facility] [place]864-3 Providers Date of Admission: 07/04/24 Date of Discharge: 07/05/24 Primary Care Physician: Dr. Mena Vernon MD Consultations 07/04/24 10:59 Consult: Gastroenterology Routine Consulting Provider: [facility] Reason for Consult: acute cholecysitis EMERGENT [...] is a 38-year-old female who presented to [facility] ED on 07/04/2024 with RUQ abdominal [...] fluid for ex (more content not included)... [facility] 07-05-2024 Consult note [facility] 07-05-2024 Consult note Note Date/Time July 05, 2024 1:05pm [facility] Medical Records Department [address] [place] [address] Consultation - Surgical 07/05/24 0836 MR#: [id number] Acct: [id number] Name: LIUDMILA WORLEY Rep #:[id number] : 1985 38 From: Veronica Austin MD PCP: Dr. Mena Vernon MD Status:AD M IN [place] [facility] CN727-5 Assessment & Plan Assessment/Plan (1) Cholelithiasis: (2) [...] be covering tomorrow. Veronica Austin M.D. Pager: [phone] [facility] [address] [place] [address], [facility], [address] [place] [address] Office: [phone] HPI Consult Data Date of Consult: 07/05/24 [...] nausea and vomiting. Patient previously was seeing [place] in October2023 and did have elevated LFTs at that time as well with the AST and ALT in [id number] the rest of the liver functions were [...] phos still remained mildly elevated at 191. [facility] Medical History Wears glasses Depression Anxiety Alcohol use Migraine headache Former smoker Hypertension Hx of vaginal delivery ADHD Home Medications ?Medication ?Instructions ?Recorded ?Last Taken ?Type dextroamphetamine-amphetamine 30 30 mg PO 0800,1200 07/03/24 History mg tablet (Adderall) multivitamin 1 tab PO DAILY 11/08/21 04/2 09/01 History lisinopril 5 mg tablet 5 mg [...] Clarity Clear, Urine pH 7.0, Ur Specific [place] 1.010, Urine Protein 30 H, Urine Glucose [...] Neut % (Auto) 60.3, Lymph % (Auto) 25.2,Coos % (Auto) 9.9, Eos % (Auto) 3.5, [...] sonographic evidence of acute cholecystitis. Reading [facility] Chest X-Ray 07/04/24 09:26 IMPRESSION: No Acute Findings. Reading Location[facility] Abdomen/Pelvis CT 07/05/24 06:53 IMPRESSION: Nondistended gallbladder with appearance of edema, gallbladder fossa fluid for example coronal 49 concerning for possible cholecystitis, clinically correlate. No evidence of biliary ductal dilation. Small amount of left lower quadrant and pelvic free fluid. Reading Location: [facility] Charges/Coding Visit Charges Inpatient E&M: 70810 Init Hosp L3 07/05/24 1305 <Electronically signed by Veronica Austin MD> Cosigner Signature (if applicable): CC: Dr. Mena Vernon MD~ Signed [facility] Work Phone: 1(137) 568-857004-28-2025 Radiology Diagnostic study note [facility] Imaging Services [address] [place], [place] [address] Abdomen/Pelvis W IV Cont ONLY MR#: [id number] Acct: [id number] Name: LIUDMILA WORLEY Rep #: [id number] : 1985 F 38 From: Lucien Souza MD PCP: Dr. Mena Vernon MD Status: AD M IN Study:Abdomen/Pelvis W IV Cont ONLY Date of E xam: 07/05/24 Exam# [id number] Ordering Dr: Julissa Mcfarland DO PROCEDURE: ABDOMEN/PELVIS [...] quadrant and pelvic free fluid. Reading Location: [id number] CC: Dr. Mena Vernon MD; Sergio Friend, DO ~ Dairy Clerk: Signed [facility]04-27-2025 History and physical note Author Juan Hdez [facility] Note Date/Time July 04, 2024 11: 35am [facility] Medical Records Department [address] [address] H&P Exam - Hospitalist 07/04/24 1011 MR#: [id number] Acct: [id number] Name: LIUDMILA WORLEY Rep #:[id number] : 1985 38 From: Juan Valenzuela PCP: Dr. Mena Vernon MD Status:AD M IN Location: [facility]3 LP490-4 HPI - General General Date of Admission: [...] pain October 2023 and she went to [facility] where she had ultrasound. She was told that she has a gallbladder stone and probably she has elevated transaminases as per Dr. Austin at that time. I tried to log into [employer] to check it but could not. She had right upper quadrant sonogram in ED shows cholelithiasis without features of acute cholecystitis. ED physician consulted and she wanted to admit under medicine with GI consult. [facility] Medical History Wears glasses Depression Anxiety Alcohol [...] 79.3 H, Lymph % (Auto) 12.7 L, Coos % (Auto) 6.9, Eos % (Auto) 0.4, [...] Clarity Clear, Urine pH 7.0, Ur Specific [place] 1.010, Urine Protein 30 H, Urine Glucose [...] sonographic evidence of acute cholecystitis. Reading Location: [place] [address] Chest X-Ray 07/04/24 09:26 IMPRESSION: No Acute Findings. Reading Location: [facility] Assessment & Plan Assessment/Plan (1) Acute cholecystitis with acute cholangitis: PLAN: Plan This 38-year-old female is being admitted for right upper quadrant colicky pain for 1. Acute cholecystitis with cholelithiasis: [facility] IV fluid. Pain control. Lab evaluation shows normal WBC count,ALT 352 AST 594 elevated. ALP 135. Total bilirubin normal. Lipase normal. Right upper quadrant sonogram shows cholelithiasis with normal GB wall, no pericholecystic fluid. Clinically it seems patient has cholecystitis with biliary colic, Sherwood sign positive and elevated transaminases. ED physician consulted surgeon and wanted GI to see for therefore kettle operator head consulted. I do not think antibiotic is [...] shock if needed Total time spent in [id number] encounter in discussion of advanced directive 17 minutes. Laboratory Results 07/04/24 06:36: WBC 7.6, RBC 4.65, Hgb 11.9 L, Hct 36.0 L, MCV 77.4 L, MCH 25.6 L, MCHC 33.1, RDW Std Deviation 44.5 H, RDW Coeff of María 15.9 H, Plt Count 312, MPV 10.0, Immature Gran % (Auto) 0.400, Neut % (Auto) 79.3 H, Lymph % (Auto) 12.7 L, Coos % (Auto) 6.9, Eos % (Auto) 0.4, [...] Clarity Clear, Urine pH 7.0, Ur Specific [place] 1.010, Urine Protein 30 H, Urine Glucose [...] sonographic evidence of acute cholecystitis. Reading [facility] Chest X-Ray 07/04/24 09:26 IMPRESSION: No Acute Findings. Reading Location: [facility] Charges/Coding Visit Charges Inpatient E&M: 72010 Init Hosp L3 Procedures Hospitalists Procedures: 01282 Advncd Care Plan 30 Min 07/04/24 1135 <Electronically signed by Juan Hdez MD> Cosigner Signature (if applicable): CC: Dr. Mena Vernon MD; Dr. Juan Hdez MD~ Signed [facility] Work Phone: 1(654) 671-776304-27-2025 Discharge summary Author Harshil Nguyenrus [facility] Note Date/Time July 04, 2024 10: 44am [facility] Medical Records Department [address] [place] [address] Emergency Department Summary 07/04/24 MR#: [id number] Acct: [id number] Name: LIUDMILA WORLEY Rep #:[id number] : 1985 38 From: Harshil Garcia PCP: Dr. Mena Vernon MD Status:AD M IN Location: MS3 RA395-[address] Gavin Alford DO on [...] flare October of last year diagnosed at [facility]. She is told to follow-up with her PCP she has not had any issues until yesterday evening she ate nodule cheese for lunch nothing for dinner. I spoke with on-call surgeon Dr. Austin, reviewed her imagings and labs along with labs from [facility]. Reported her AST was 100 at that [...] Present Illness Chief Complaint: Abd Pain PFSH [facility] Medical History ADHD Alcohol use Anxiety [...] History obtained from others: none Consults: none [facility] Narrative: The patient was initially hemodynamically [...] final disposition This note was generated with [employer] dictation software. It may contain incorrectwords, spelling, [...] 79.3 H Lymph % (Auto) 12.7 L Coos % (Auto) 6.9 Eos % (Auto) 0.4 [...] MD [Primary Care Provider] - Print Language: Puerto Rican What to do if you have Problems For any increased pain, shortness of breath, bleeding, nausea or vomiting, chestpain, or any unexpected problems, contact your Primary Care Provider. Call [facility] ([phone]) or report to the closest Emergency Room. Call 911 if necessary. 07/04/24 0707 <Electronically signed by Harshil Sanches DO> Cosigner Signature (if applicable): CC: Dr. Mena Vernon MD ~ Signed [facility] Work Phone: 1(972) 605-240904-27-2025 Evaluation note* Diagnosis Onset Date Resolution Status Admit Date Acute cholecystitis with acu te cholangitis acute July 04, 2024 10:12am Cholelithiasis acute June 10:12am Elevated LFTs acute July 04, 2024 10:12am [facility] Work Phone: 1(220) 887-752204-27-2025 Evaluation note* Diagnosis Onset Date Resolution Status Admit Date Elevated LFTs acute July 04, 2024 10:12am Acute cholecystitis with acu te cholangitis resolved July 04, 2024 10:12am Cholelithiasis inactive June 10:12am [facility] Work Phone: 1(621) 276-562404-27-2025 Evaluation note* Diagnosis Onset Date Resolution Status Admit Date Elevated LFTs acute July 04, 2024 10:12am Acute cholecystitis with acu te cholangitis resolved July 04, 2024 10:12am Cholelithiasis inactive June 10:12am Elevated LFTs acute August 10, 2 025 9:06am [facility] Work Phone: 1(740) 988-580604-27-2025 History and physical note [facility] Medical Records Department [address] [place] [address] H&P Exam - Hospitalist 07/04/24 1011 MR#: [id number] Acct: [id number] Name: LIUDMILA WORLEY Rep #:[id number] : 1985 38 From: Juan Valenzuela PCP: Dr. Mena Vernon MD Status:AD M IN [place] [facility] WW174-8 HPI - General General Date of Admission: [...] pain October 2023 and she went to [facility] where she had ultrasound. She was toldthat she has a gallbladder stone and probably she has elevated transaminases as per Dr. Austin atthat time. I tried to log into [employer] to check it but could not. She had right upper quadrant sonogram in ED shows cholelithiasis without features of acute cholecystitis. ED physician consulted and she wanted to admit under medicine with GI consult. [facility] Medical History Wears glasses Depression Anxiety Alcohol use Migraine headache Former smoker Hypertension Hx of vaginal delivery ADHD Home Medications ?Medication ?Instructions ?Recorded ?Last Taken ?Type dextroamphetamine-amphetamine 30 30 mg PO 0800,1200 07/03/24 History mg tablet (Adderall) multivitamin 1 tab PO DAILY 11/08/21 04/09/01 History lisinopril 5 mg tablet 5 mg [...] 79.3 H, Lymph % (Auto) 12.7 L, Coos % (Auto) 6.9, Eos % (Auto) 0.4, [...] Clarity Clear, Urine pH 7.0, Ur Specific [place] 1.010, Urine Protein 30 H, Urine Glucose [...] sonographic evidence of acute cholecystitis. Reading Location: [place] [address] Chest X-Ray 07/04/24 09:26 IMPRESSION: No Acute Findings. Reading Location: [facility] Assessment & Plan Assessment/Plan (1) Acute cholecystitis with acute cholangitis: PLAN: Plan This 38-year-old female is being admitted for right upper quadrant colicky pain for 1. Acute cholecystitis with cholelithiasis: [facility] IV fluid. Pain control. Lab evaluation shows normal WBC count,ALT 352 AST 594 elevated. ALP 135. Total bilirubin normal. Lipase normal. Right upper quadrant sonogram shows cholelithiasis with normal GB wall, no pericholecystic fluid. Clinically it seems patient has cholecystitis with biliary colic, Sherwood signpositive and elevated transaminases. ED physician consulted surgeon and wanted GI to see for therefore kettle operator head consulted. I do not think antibiotic is [...] shock if needed Total time spent in pwqn-hg-[id number] encounter in discussion of advanced directive 17 minutes. Laboratory Results 07/04/24 06:36: WBC 7.6, RBC 4.65, Hgb 11.9 L, Hct 36.0 L, MCV 77.4 L, MCH 25.6 L, MCHC 33.1, RDW Std Deviation 44.5 H, RDW Coeff of María 15.9 H, Plt Count 312, MPV 10.0, Immature Gran % (Auto) 0.400,Neut % (Auto) 79.3 H, Lymph % (Auto) 12.7 L, Coos % (Auto) 6.9, Eos % (Auto) 0.4, [...] Clarity Clear, Urine pH 7.0, Ur Specific [place] 1.010, Urine Protein 30 H, Urine Glucose [...] sonographic evidence of acute cholecystitis. [facility] Chest X-Ray 07/04/24 09:26 IMPRESSION: No Acute Findings. Reading Location: [facility] Charges/Coding Visit Charges Inpatient E&M: 22015 Init Hosp L3 Procedures Hospitalists Procedures: 21943 Advncd Care Plan 30 Min 07/04/24 1135 Cosigner Signature (if applicable): CC: Dr. Mena Vernon MD; Dr. Juan Hdez MD~ Signed [facility]04-27-2025 Discharge summary [facility] Medical Records Department [address] [place] [address] Emergency Department Summary 07/04/24 MR#: [id number] Acct: [id number] Name: LIUDMILA WORLEY Rep #:[id number] : 1985 38 From: Harshil Garcia PCP: Dr. Mena Vernon MD Status:AD M IN Location: [facility]3 [id number] Gavin Alford DO on [...] flare October of last year diagnosed at [facility]. She is told to follow-up with her PCP she has not had any issues until yesterday evening she ate nodule cheese for lunch nothing for dinner. I spoke with on-call surgeon Dr. Austin, reviewed her imagings and labs along with labs from [facility]. Reported her AST was 100 at that [...] Present Illness Chief Complaint: Abd Pain PFSH [facility] Medical History ADHD Alcohol use Anxiety Depression [...] Oxygen Delivery Method Room Air Room Air [facility] Narrative Medical decision making narrative: HISTORY OF [...] reviewed, Vital signs reviewed Constitutional: please see [facility] HENT: MMM Eyes: Pupils equal round and [...] History obtained from others: none Consults: none [facility] Narrative: The patient was initially hemodynamically [...] final disposition This note was generated with CityVoter dictation software. It may contain incorrectwords, spelling, [...] 79.3 H Lymph % (Auto) 12.7 L Coos % (Auto) 6.9 Eos % (Auto) 0.4 [...] MD [Primary Care Provider] - Print Language: Puerto Rican What to do if you have Problems For any increased pain, shortness of breath, bleeding, nausea or vomiting, chestpain, or any unexpected problems, contact your Primary Care Provider. Call [facility] ([phone]) or report tothe closest Emergency Room. Call 911 if necessary. 07/04/24 0707 Cosigner Signature (if applicable): CC: Dr. Mena Vernon MD ~ Signed [facility]04-27-2025 Radiology Diagnostic study note [facility] Imaging Services [address] [place] [address] Chest 1 View (Portable) MR#: [id number] Acct: [id number] Name: LIUDMILA WORLEY Rep #: [id number] : 1985 F 38 From: Lamar Patel MD PCP: Dr. Mena Vernon MD Status: RE G ER Study:Chest 1 View (Portable) Date of Exam: 07/04/24 Exam# [id number] Ordering Dr: Gavin Alford DO PROCEDURE: CHEST 1 VIEW (PORTABLE) 07/04/2024 REASON FOR EXAM: PREOP TECHNIQUE: Frontal view of the chest. COMPARISON: None FINDINGS: Hardware: None Heart: Cardiac and mediastinal contours are stable. Lungs: The lungs are clear. Bones: The bones are unremarkable. Other: RAD/Chest 1 View (Portable) IMPRESSION: No Acute Findings. [facility] CC: Dr. Mena Vernon MD; Dr. Gavin Alfodr DO ~ Dairy Clerk: Signed [facility]04-27-2025 Radiology Diagnostic study note [facility] Imaging Services [address] [place], [place] [id number] Gallbladder MR#: [id number] Acct: [id number] Name: LIUDMILA WORLEY Rep #: [id number] : 1985 F 38 From: Maynor Lopez MD PCP: Dr. Mena Vernon MD Status: RE G ER Study:Gallbladder Date of Exam: 07/04/24 Exam# [id number] Ordering Dr: Brenda Sanches DO PROCEDURE: GALLBLADDER [...] sonographic evidence of acute cholecystitis. Reading Location: [facility] CC: Dr. Mena Vernon MD; Dr. Harshil Sanches DO ~ Dairy Clerk: Signed [facility]03-18-2025 Telephone encounter Note* Telephone Encounter - Leyla Hussein LPN - 05/25/2024 8:49 AM EDT Fax rec'd from [facility]. Approval for adderall 30mg from 05/24/24 to 05/23/26. Faxed to pharmacy and pt notified via my chart. [facility]03-18-2025 Miscellaneous Notes* Telephone Encounter - Leyla Hussein LPN - 05/25/2024 8:49 AM EDT Fax rec'd from [facility]. Approval for adderall 30mg from 05/24/24 to 05/23/26. Faxed to pharmacy and pt notified via my chart. * Telephone Encounter - Leora Gambino MA - 05/24/2024 11:13 AM EDT Called [facility] [phone] and did not receive chart notes. [facility] rep advised should re-submitted again for Name Brand : Adderall 30 mg BID and faxed chart notes Auth ID [id number] * Telephone Encounter - Leyla Hussein LPN [...] mg BID. [facility] Leora Gambino MA * Telephone Encounter [...] but would not process. Called [facility] at [phone] and completed with rep for adderall 30 [...] Adderall Provider: Dr Vernon Insurance Company Name: [employer] Phone number: [phone] Patient ID number: [id number] Pharmacy Name: [facility] Telephone number: [phone] documented in this encounterProm[facility]03-[facility] Telephone encounter Note * Telephone Encounter - Leora Gambino MA - 05/24/2024 11:13 AM EDT Called [facility] [phone] and did not receive chart notes. [facility] meyer advised should re-submitted again for Name Brand : Adderall 30 mg BID and faxed chart notes Auth ID [id number] [facility]03-17-2025 Telephone encounter Note* Telephone Encounter - Leora Gambino MA - 05/24/2024 10:44 AM EDT Called [facility] [phone] and did not receive chart notes. [facility] meyer advised should re-submitted again for Name Brand : Adderall 30 mg BID and faxed chart notes Auth ID [id number] [facility]03-17-2025 Miscellaneous Notes* Telephone Encounter - Leora Gambino MA - 05/24/2024 10:44 AM EDT Called [facility] [phone] and did not receive chart notes. [facility] meyer advised should re-submitted again for Name Brand : Adderall 30 mg BID and faxed chart notes Auth ID [id number] documented in this encounterPromedica Flower Hospital03-12-2025 Telephone encounter Note * Telephone Encounter - Leyla Hussein LPN - 05/19/2024 4:12 PM EDT Denial rec'd. They note they need notes noting pt has positive effects with current treatment. Office notes faxed for review. [facility]03-11-2025 Telephone encounter Note* Telephone Encounter - Leora Gambino MA - 05/18/2024 11:04 AM EDT Called and spoke to [facility] PA is still in process that was done over the phone for Brand name ADDERALL 30 mg BID. Fax received yesterday was from covermymeds submission. Leora Gambino MA [facility]03-11-2025 Telephone encounter Note* Telephone Encounter - Ashley Sprague RN - 05/18/2024 10:36 AM EDT Pt states it is for the brand name Adderall to get the CHAZ 1. She states Dr Vernon knows about this. [facility]03-11-2025 Telephone encounter Note* Telephone Encounter - Leyla Hussein LPN - 05/18/2024 8:18 AM EDT Fax rec'd from [facility] noting no PA is needed for dextroamphetamine/amphetamine. Please advise member enrolled in managed care plan to take their prescriptions to an in network pharmacy to have filled. Pt notified via my chart. [facility]03-10-2025 Telephone encounter Note* Telephone Encounter - Leora Gambino MA - 05/17/2024 1:34 PM EDT Tried to complete through covermymeds but would not process. Called [facility] at [phone] and completed with rep for adderall 30 mg BID. Advised will notify office once decision made through fax Leora Gambino MA [facility]03-10-2025 Telephone encounter Note* Telephone Encounter - [...] Adderall Provider: Dr Vernon Insurance Company Name: [employer] Phone number: [phone] Patient ID number: [id number] Pharmacy Name: [facility] Telephone number: [phone] [facility]02-10-2025 NoteHNO ID: [id number] Author: MENA VERNON MD Service: ? Author Type: Physician Type: Progress Notes Filed: 04/19/2024 09:45 Note Text: This note was created using Q.branchter. Subjective Liudmila Worley is a 38 year [...] trying to make healthier choices, such as [place] yogurt and fruit parfaits. She also reports [...] to alleviate pruritus. - Suggested trial of jnlp-tsb-dduoxas lidocaine patches for localized sympt (more content not included)...[facility]02-10-2025 History of Present illness Narrative* Mena Vernon MD - 04/19/2024 9:13 AM EST Images from the original note were not included. This note was created using Cotopaxiriter. Subjective Liudmila Worley is a 38 year [...] trying to make healthier choices, such as [place] yogurt andfruit parfaits. She also reports experiencing [...] to alleviate pruritus. - Suggested trial of wtfh-hai-gsxosba lidocaine patches for localized symptom relief. # [...] noted. Mena Vernon MD documented in this encounterPromedica Flower Hospital02-05-2025 Instructions* Patient Instructions* Aliza Mcnamara APRN.METER/RELAY TECHNICIAN - 04/14/2024 8:01 PM EST Rest, increase [...] breath, inability to swallow. documented in this encounterPromedica Flower Hospital02-05-2025 NoteHNO ID: [id number] Author: ALIZA MCNAMARA APRN.METER/RELAY TECHNICIAN Service: ? Author Type: Nurse Practitioner Type: Progress Notes Filed: 04/14/2024 20:08 Note Text: Subjective The history is provided by the patient. No master lay out specialist was used. HPI Liudmila Worley is a [...] have confirmed and edited as necessary, the [facility] Review of Systems Constitutional: Negative for chills [...] detail warranting prompt ER evaluation. Aliza Mcnamara APRN.[facility] History of Present illness Narrative* Aliza Mcnamara APRN.DELMA - 04/14/2024 7:48 PM EST Subjective The history is provided by the patient. No master lay out specialist was used. HPI Liudmila Worley is a [...] have confirmed and edited as necessary, the [facility] Review of Systems Constitutional: Negative for chills [...] evaluation. Aliza Mcnamara APRN.CNP documented in this encounterPromedica Flower Hospital11-25-2024 Telephone encounter Note * Telephone Encounter [...] Syed LPN February 02, 2024 1:22 PM [facility]11-25-2024 Miscellaneous Notes* Telephone Encounter - Fariha [...] 02, 2024 1:22 PM documented in this encounterPromedica Flower Hospital09-25-2024 Telephone encounter Note * Telephone Encounter - Leyla Hussein LPN - 12/03/2023 11:34 AM EDT Covermymeds PA response is Information regarding your request Electronic prior authorization not supported as no PA required for NDC and for member's age. Called the pharmacy and reviewed. Pharmacist says they have to call insurance every month to get anoverride. This was previously approved in [employer] until 04/26/24. [facility]09-25-2024 Miscellaneous Notes* Telephone Encounter - Leyla Hussein LPN - 12/03/2023 11:34 AM EDT Covermymeds PA response is Information regarding your request Electronic prior authorization not supported as no PA required for NDC and for member's age. Called the pharmacy and reviewed. Pharmacist says they have to call insurance every month to get anoverride. This was previously approved in [employer] until 04/26/24. * Telephone Encounter - Leyla Hussein LPN - 12/03/2023 11:25 AM EDT Unable to complete electronically. Will try on covermymeds. * Telephone Encounter - Aimee Ludwig RN - 12/03/2023 10:47 AM EDT PRIOR AUTHORIZATION Medication for Prior Authorization: Adderall 30 mg (Brand Name) Insurance Company: [employer] Patient insurance ID number: [id number] Aimee Ludwig RN documented in this encounterPromedica Flower Hospital09-25-2024 Telephone encounter Note * Telephone Encounter - Leyla Hussein LPN - 12/03/2023 11:25 AM EDT Unable to complete electronically. Will try on covermymeds. [facility]09-25-2024 Telephone encounter Note* Telephone Encounter - Aimee Ludwig RN - 12/03/2023 10:47 AM EDT PRIOR AUTHORIZATION Medication for Prior Authorization: Adderall 30 mg (Brand Name) Insurance Company: [employer] Patient insurance ID number: [id number] Aimee Ludwig RN [facility]08-30-2024 Note ORIGINAL EXAMINATION: LIMITED ABDOMINAL ULTRASOUND11/07/2023 [...] Sign Date: 11/07/2023 10:46:03 AM Ordering Provider: [facility] Hospital Discharge instructions Patient Education 11/05/2023 18:56:15 [...] foods again, start with small amounts of mofd-mo-klpnhn, low- fat foods. These include apple sauce, [...] increase stomach acid. Don't use aspirin or ygdh-ztx-npibzmr pain and fever medicines, if possible. This includes nonsteroidal anti-inflammatory drugs (NSAIDs). Lose excess weight. Finish eating at least 2 hours before you go to bed or lie down. Raise the head of your bed. [id number] [employer]. [address] [place] [address]. All rights reserved. This information is not intended as a substitute for professional medical care. Always follow yourhealthcare professional's instructions. Follow Up Care 11/05/2023 17:11:21 With:MENA VERNON MD Address: [address], [place] [address]- When:2-4 days [facility] 08-28-2024 Note Discharge Instructions Thank you for allowing [facility] to assist you with your healthcare needs. The following is importantdischarge information regarding your hospital visit. Diagnosis from Today's Visit Abdominal pain What to Do Next Instructions from Your Care Team No qualifying data available. Post Acute Orders No qualifying data available. You Need to Schedule the Following Appointments Follow Up with MENA VERNON MD When:Within 2-4 days Where:[address], [place] [id number]- Allergies No Known Medication Allergies Medications Please [...] foods again, start with small amounts of zvos-hy-ypuiix, low- fat foods. These include apple sauce, [...] increase stomach acid. Don't use aspirin or paql-gcc-ecikrvg pain and fever medicines, if possible. This includes nonsteroidal anti-inflammatory drugs (NSAIDs). Lose excess weight. Finish eating at least 2 hours before you go to bed or lie down. Raise the head of your bed. 9723-5495 [employer]. [address] [place] [address], [place] [address]. All rights reserved. This information is not intended as a substitute for professional medical care. Always follow yourhealthcare professional's instructions. Additional Information VACCINATE! IT SAVES LIVES! Members of the community who have not yet received the COVID-19 vaccine and would like to receive it can visit one of [facility] vaccine clinics. There are many vaccine clinic locations within the [facility]. For locations and available times, please visit www.[email or web address].gov/. It is important to note that some COVID mobile vaccine clinics are held outdoors and may be canceled in rainy or stormy conditions. To learn more about pediatric vaccinations (ages 5-11), we invite you to visit the [facility] webpage. https://[email or web address]/[email or web address]-[email or web address]-Mdknmdexda-[email or web address] stions.htmlTo learn more about the COVID-19 vaccine, we invite you to visit the CDC website for a list of frequently asked questions. https://www.cdc.gov/coronavirus/2019-ncov/vaccines/faq.html [employer] Patient Portal Access Instructions: Stay connected with your healthcare team and access your personal medical information anytime with the [employer] Patient Portal. If you would like a full copy of your medical records please contact the [facility] Medical Records Department Friday through Friday between 8a.m. and 4:30p.m. Please follow the directions below to access the portal: 1.Access the email account you provided upon registration to the [facility].2.Look for an invitation email from [facility].3.Open the email and access the invitation link: Accept Invitation to [employer]4.Fill in the required lux to create your account. Sign into www.[email or web address] with your username and password that you [...] you will allow to register on the [employer] Patient Portal for access to your information. You can also access the [employer] Patient Portal on the RoughHands. Simply click on "Health Records" under "HealthData" and then click on the Archipelago logo. HOW TO SAFELY DISPOSE OF PRESCRIPTION [...] Call your local pharmacy or go to [email or web address] to find one close to you.3.Make use of household items: Use cat litter or old coffee grounds to dispose medications if other options arenot available. Mix your drugs with these household products, seal them in an airtight container andthrow it into the garbage. Call [facility]: [phone] to be sure your drugs can be [...] reviewed and explained to me and I,LIUDMILA WORLEYd my current condition and have read and understand these discharge instructions. I have received a written copy of the plan/instructions. If I have questions, I am aware that I should contact my doctor. 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 documented in this encounterPromedica Flower Hospital07-26-2024 Instructions* Patient Instructions* Mena Vernon MD - 10/03/2023 5:58 PM EDT Iron --if take supplement, then Mon, Wed, Fri. Iron glycinate, gluconate, fumarate or succinate better tolerated to sulfate. Okay lower doses of iron around 20 range. Okay to take K-mpafzs-olqmkp documented in this encounterPromedica Flower Hospital07-26-2024 History of Present illness Narrative* Mena Vernon MD - 10/03/2023 5:25 PM EDT This note was created using Cotopaxiriter. Subjective Liudmila Worley is a 38 year [...] not taking: Reported on 08/31/2023) Drospirenone-Ethinyl Estradiol (Zahra DOYLE,) 3-0.02 mg per [...] Iron supplement as discussed. Follow up with [facility] as needed 3. Primary hypertension I10 Stay [...] sleep. Mena Vernon MD documented in this encounterPromedica Flower Hospital07-26-2024 Telephone encounter Note * Telephone Encounter [...] Burgos MA October 03, 2023 2:48 PM [facility]07-26-2024 Miscellaneous Notes* Telephone Encounter - Deacon [...] 03, 2023 2:48 PM documented in this encounterPromedica Flower Hospital06-26-2024 Telephone encounter Note * Telephone Encounter [...] DERECK Alejandre September 03, 2023 1:11 PM [facility]06-26-2024 Miscellaneous Notes* Telephone Encounter - Delisa [...] 03, 2023 1:11 PM documented in this encounterPromedica Flower Hospital06-23-2024 History of Present illness Narrative* Madhu Ames APRN.METER/RELAY TECHNICIAN - 08/31/2023 9:13 AM EDT This note was created using NoteWriter. Subjective [...] (POC) Madhu Ames APRN.CNP documented in this encounterPromedica Flower Hospital05-29-2024 Telephone encounter Note * Telephone Encounter - Karol Vergara APRN.CNP - 08/06/2023 12:41 PM EDT Addressed in another encounter [facility] Work Phone: [phone] 266-154505-29-2024 Telephone encounter Note* Telephone Encounter - Karol Vergara APRN.CNP - 08/06/2023 12:41 PM EDT PDMP website checked and validated. All prescriptions have been APPROPRIATELY filled. No suspiciousactivity was identified. 08/06/2023 by Karol Vergara APRN.CNP [facility]05-29-2024 Miscellaneous Notes* Telephone Encounter - Karol [...] you. Carmen Rooney MA. documented in this encounterPromedica Flower Hospital05-29-2024 Miscellaneous Notes* Telephone Encounter - Karol [...] you. Carmen Rooney MA. documented in this encounterPromedica Flower Hospital05-29-2024 Telephone encounter Note * Telephone Encounter - Tereza Tobar RN - 08/06/2023 9:22 AM EDT Patient has been out of medication for 2 days. [facility]05-28-2024 Telephone encounter Note* Telephone Encounter - [...] Please advise. Thank you. Carmen Rooney MA. [facility]05-28-2024 Telephone encounter Note* Telephone Encounter - [...] Please advise. Thank you. Carmen Rooney MA. [facility]04-26-2024 Telephone encounter Note* Telephone Encounter - Deepti Redd APRN.CNS - 07/04/2023 9:06 AM EDT ok [facility]04-26-2024 Miscellaneous Notes* Telephone Encounter - Deepti Redd APRN.CNS - 07/04/2023 9:06 AM EDT ok * Telephone Encounter - Tereza Tobar RN - 07/04/2023 8:54 AM EDT Patient reports the adderall rx sent to [facility] yesterday was not generic, it was name brand. Reports the name brand is $850 The generic is $50 Reports she learned [facility] did not renew their contract with her insurance so adderall is no longer covered at [facility], but they are the only ones that have it. [facility] does not have it. Patient is willingto pay the $50 this month. Patient took her last pill yesterday. Pended for generic adderall. documented in this encounterPromedica Flower Hospital04-26-2024 Telephone encounter Note * Telephone Encounter - Tereza Tobar RN - 07/04/2023 8:54 AM EDT Patient reports the adderall rx sent to [facility] yesterday was not generic, it was name brand. Reports the name brand is $850 The generic is $50 Reports she learned [facility] did not renew their contract with her insurance so adderall is no longer covered at [facility], but they are the only ones that have it. [facility] does not have it. Patient is willingto pay the $50 this month. Patient took her last pill yesterday. Pended for generic adderall. [facility]04-25-2024 Telephone encounter Note* Telephone Encounter - Deepti Redd APRN.CNS - 07/03/2023 4:17 PM EDT ok [facility]04-25-2024 Miscellaneous Notes* Telephone Encounter - Deepti Redd APRN.CNS - 07/03/2023 4:17 PM EDT ok * Telephone Encounter - Leanne Woods RN - 07/03/2023 2:27 PM EDT Patient calling to say [facility] pharmacy does not have brand name Adderall in stock. She is requesting script for generic Adderall be sent to [facility] retail pharmacy and she will pay out of pocket. Leanne Woods RN documented in this encounterPromedica Flower Hospital04-25-2024 Telephone encounter Note * Telephone Encounter - Leanne Woods RN - 07/03/2023 2:27 PM EDT Patient calling to say [facility] pharmacy does not have brand name Adderall in stock. She is requesting script for generic Adderall be sent to [facility] retail pharmacy and she will pay out of pocket. Leanne Woods, RN [facility]04-25-2024 Telephone encounter Note* Telephone Encounter - Deepti Redd APRN.CNS - 07/03/2023 10:58 AM EDT ok [facility]04-25-2024 Miscellaneous Notes* Telephone Encounter - Deepti Redd APRN.CNS - 07/03/2023 10:58 AM EDT ok * Telephone Encounter - Kelly Bush LPN - 07/03/2023 9:32 AM EDT Pt called back and she wants request for Adderall to be sent to [facility] and the Brand name is what she wants not generic. Reason for switching pharmacy [facility] did not renew contract with the insurance pt has. No call back, only if a problem KAPIL: 04/22/23 NOV: 10/03/23 Kelly Bush LPN * Telephone Encounter - Veronica Thacker RN - 07/03/2023 8:48 AM EDT Pt calling and states she has to pay out of pocket this month for her Adderall so she needs the generic sent in to [facility] pharmacy. Call pt only if problem. Last OV 04/22/23 Next OV 10/03/23 documented in this encounterPromedica Flower Hospital04-25-2024 Telephone encounter Note * Telephone Encounter - Kelly Bush LPN - 07/03/2023 9:32 AM EDT Pt called back and she wants request for Adderall to be sent to [facility] and the Brand name is what she wants not generic. Reason for switching pharmacy [facility] did not renew contract with the insurance pt has. No call back, only if a problem KAPIL: 04/22/23 NOV: 10/03/23 Kelly Bush LPN [facility]04-25-2024 Telephone encounter Note* Telephone Encounter - Veronica Thacker RN - 07/03/2023 8:48 AM EDT Pt calling and states she has to pay out of pocket this month for her Adderall so she needs the generic sent in to [facility] pharmacy. Call pt only if problem. Last OV 04/22/23 Next OV 10/03/23 [facility]04-12-2024 Miscellaneous Notes* Telephone Encounter - Lissa [...] sent. Lissa Neumann RN documented in this encounterPromedica Flower Hospital03-21-2024 History of Present illness Narrative* Shima Barney PA-C - 05/29/2023 4:52 PM EDT This note was created using [employer]. Subjective Liudmila Worley is a 37 year [...] Denies sick contacts. She did try some owup-npc-zhipuyu cough and cold medicines which did help [...] SALPINGECTOMY Bilateral 11/09/2021 Laparoscopic B/L Salpingectomy at [facility]-Dr. Syed TONSILLECTOMY PRIMARY/SECONDARY <AGE 12 FAMILY HISTORY [...] FRONTAL/LAT Shima Barney PA-C documented in this encounterPromedica Flower Hospital03-21-2024 History of Present illness Narrative* Cheryl Polanco RT(Julissa) - 05/29/2023 4:50 PM EDT Radiology Service [...] PATIENT PRESENTS WITH AN IMPLANTABLE OR ATTACHED BANKING ANALYST: No RADIOLOGY DEPARTMENT: General X-ray: Exam(s) Completed: Chest X-Ray PERIPHERAL IV DATA: Not applicable SIGNED BY: RT Perry(Julissa) May 29, 2023 4:47 PM documented in this encounterPromedica Flower Hospital02-20-2024 Miscellaneous Notes* Telephone Encounter - Leyla Hussein LPN - 04/29/2023 12:44 PM EST PA number is [id number] * Telephone Encounter - Leyla Hussein LPN - 04/29/2023 12:42 PM EST Pt notified. * Telephone Encounter - Leyla Hussein LPN - 04/29/2023 12:19 PM EST Rec'd approval from [facility]. This was approved from 04/29/23 to 04/26/24. Pharmacy notified. They say it's still not called [facility]. They have this corrected and they will notify the pharmacy. This call reference number is [id number]. * Telephone Encounter - Leyla Hussein LPN [...] 04/28/2023 3:33 PM EST PA completed via [facility] liudmila worley (Cisse: [id number]) Adderall 30MG tablets Status: Sent To Plan [...] Prior Auth. Please advise. documented in this encounterPromedica Flower Hospital02-13-2024 History of Present illness Narrative* Mena Vernon MD - 04/22/2023 8:30 AM EST This note was created using Cotopaxiriter. Subjective Liudmila Worley is a 37 year [...] the date of the service which included lkxw-et-gdsj patient care, completing clinical documentation, obtaining and/or reviewing separately obtained history, performing a medically appropriate examination, counseling and educating the patient/family/caregiver, and ordering medications, tests, or procedures. Mena Vernon MD documented in this encounterPromedica Flower Hospital11-17-2023 Miscellaneous Notes* Telephone Encounter - Tereza [...] Adderall 30 mg twice daily. 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 States [facility] Pharm is only open a couple of [...] review. Evita Madrigal RN documented in this encounterPromedica Flower Hospital11-16-2023 Miscellaneous Notes* Telephone Encounter - Evita Madrigal RN - 01/23/2023 10:37 AM EST Patient calls to check on status of request of returning back to Adderall 30 mg twice daily and discontinuing the Adderall XR dose. Notified patient it was pending provider review. Changed request to TE. Evita Madrigal RN documented in this encounterPromedica Flower Hospital11-03-2023 Miscellaneous Notes* Telephone Encounter - Adilnee Jacobo MD - 01/10/2023 11:34 AM EDT Noted and signed. Thanks, PC * Telephone Encounter - Geena Martinez RN [...] feeling worse,she needs to go to ER. Thanks, PC * Telephone Encounter - Samara Sow [...] Left contact information in documented in this encounterPromedica Flower Hospital09-08-2023 Miscellaneous Notes* Telephone Encounter - Mena [...] advise. Fariha Syed LPN documented in this encounterPromedica Flower Hospital2023 Miscellaneous Notes* Telephone Encounter - Fariha [...] days. Fariha Syed LPN documented in this [facility]2023 History of Present illness Narrative* Jaylan [...] L3 SAB0 IAB0 Ectopic0 Multiple0 Live Births3 Retail Marketing Specialist History LMP: 10/08/2022 (Within Days), Having periods Age at Menarche: Age at First : Age at Menopause: Retail Marketing Specialist History Comments: Sexual Activity: Yes; Male; bilateral [...] SALPINGECTOMY Bilateral 11/09/2021 Laparoscopic B/L Salpingectomy at [facility]-Dr. Syed TONSILLECTOMY PRIMARY/SECONDARY <AGE 14 FAMILY HISTORY [...] external genitalia normal, normal Bartholin's glands, urethra, Keokee's glands, no vulvar lesions, no cervical lesions, [...] this. Jaylan Syed MD documented in this encounterPromedica Flower Hospital05-08-2023 Miscellaneous Notes* Telephone Encounter - Deepti Redd APRN.CNS - 07/15/2022 4:40 PM EDT Sent in by Dr Syed * Telephone Encounter - Ashley Sprague RN - 07/15/2022 9:15 AM EDT Pt called in and reports she is having vaginal burning and itching. She is asking if the provider would call in Fluconazole to [facility] pharmacy for her. I let Pt know [...] you. Ashley Sprague RN documented in this encounterPromedica Flower Hospital05-08-2023 Miscellaneous Notes* Telephone Encounter - Robyn Perez RN - 07/15/2022 2:04 PM EDT Patient calling c/o yeast infection symptoms of vaginal itching/irritation. Asking for diflucan refill. Only call back with problems. Robyn Perez RN documented in this encounterPromedica Flower Hospital05-04-2023 Miscellaneous Notes* Telephone Encounter - Leora Gambino Ma - 07/11/2022 9:06 AM EDT [employer] will not cover name brand lexapro and not willing to approve PA since not clinical evidence that generic ineffective. Spoke to patient who is aware and fine with generic being sent. Pleasesend rx Leora Gambino Ma documented in this encounterPromedica Flower Hospital05-03-2023 History of Present illness Narrative* Mena Vernon MD - 07/10/2022 10:40 AM EDT VIRTUAL VISIT PROGRESS NOTE This is a virtual visit using SEElogix video visit. It required patient-provider interaction for themedical decision making as documented below. I have communicated my name and active licensure. The patient's identity and physical location wereverified at the time of this visit. Either the patient or their legal patient representative has been informed of the risks [...] SALPINGECTOMY Bilateral 11/09/2021 Laparoscopic B/L Salpingectomy at [facility]-Dr. Syed TONSILLECTOMY PRIMARY/SECONDARY <AGE 14 FAMILY HISTORY [...] ophthalmology. Mena Vernon MD documented in this encounterPromedica Flower Hospital04-15-[address] Barney [facility] June 22, 2022 5:13pm Note Date/Time June 22, 2022 5:0 9pm [facility] Medical Records Department [address] [place] [address] Emergency Department Summary 06/22/22 MR#: [id number] Acct: [id number] Name: LIUDMILA WORLEY Rep #:[id number] : 1985 36 From: Johnny Barney MD PCP: Dr. Mena Vernon MD Status:CA E ER Location: ED HPI History of [...] your Primary Care Provider. Call [facility] ([phone]) or report to the closest Emergency Room. Call 911 if necessary. 06/22/223 <Electronically signed by Johnny Barney MD> Cosigner Signature (if applicable): CC: Dr. Mena Vernon MD ~ Signed [facility] Work Phone: [phone] Miscellaneous Notes* Telephone Encounter - Leyla Hussein LPN - 04/25/2022 9:30 AM EST Rec'd fax noting this was already approved until 03/18/23. * Telephone Encounter - Leyla Hussein LPN - 04/23/2022 2:49 PM EST LIUDMILA STACYRUDY (Cisse: [id number]) - [id number] Adderall 30MG tablets Status: Sent to Plan Created: April 20, 2022 Sent: April 23, 2022 documented in this encounterPromedica Flower Hospital02-01-2023 History of Present illness Narrative* Mena Vernon MD - 04/10/2022 11:05 AM EST This note was created using Q.branchter. Subjective Liudmila Worley is a 36 year [...] management. Mena Vernon MD documented in this encounterPromedica Flower Hospital01-24-2023 History of Present illness Narrative* MIO Meyer - 04/02/2022 8:14 PM EST This note was created using Cotopaxiriter. Subjective Liudmila Worley is a 36 year [...] SALPINGECTOMY Bilateral 11/09/2021 Laparoscopic B/L Salpingectomy at [facility]-Dr. Syed TONSILLECTOMY PRIMARY/SECONDARY <AGE 14 ALLERGIES Seasonal [...] ER evaluation. MIO Meyer documented in this encounterPromedica Flower Hospital01-12-2023 Miscellaneous Notes* Telephone Encounter - Leora Gambino Ma - 03/21/2022 9:52 AM EST Spoke to [facility] josef who advised stating need PA. Called [facility] and they advised name brand is approved appears issue on pharmacy end when running RX are not using correct code. Spoke to [facility] pharmacy again and josef stated needing CHAZ-9 so ran and went through. PA is approved and patient notified. Ref# [id number] Leora Gambino Ma * Telephone Encounter - Leyla Hussein LPN - 03/20/2022 10:52 AM EST Rec'd approval from [employer] for dextromphetamine/amthetamine 03/19/22 to 03/18/23. But this PA is for ADDERALL. Brand not generic. Will wait for that PA to be reviewed. * Telephone Encounter - Leora Gambino Ma - 03/19/2022 3:13 PM EST Prior Authorization has been completed online at [employer] for Adderall, will await response. [id number] Please keep encounter open until final decision has been received and documented from insurance company. Leora Gamibno MA * Telephone Encounter - Fariha Syed [...] stock at this time. documented in this encounterPromedica Flower Hospital12-09-2022 History of Present illness Narrative* Kamron Sharif - 02/15/2022 8:30 AM EST Patient offered a medical monorail helper for sensitive exam. Pt declined documented in this encounterRegency Hospital Company12-09-2022 History and physical note* Venita Nair APRN-DELMA - 02/15/2022 8:00 AM EST Date of [...] y.o. premenopausal female who presents to the [facility] on 02/15/2022 for evaluation [...] in the UE. She presents to the [facility] today for evaluation. Liudmila [...] Laterality Date TUBAL LIGATION Bilateral 2021 TONSILLECTOMY Breast/CASINO FLOORPERSON History: Social History Social History Narrative CASINO FLOORPERSON: No LMP recorded.. 01/2022 Last PAP: 2021 [...] LIMITED UNILATERAL RIGHT, 02/15/2022 09:49 AM (accession [id number]), 02/15/2022 09:56 AM (accession [id number]) CLINICAL INDICATIONS: Palpable abnormality 10:00 right breast [...] tablet Multiple Vitamin (multivitamin) capsule PIOTR Paul, AOP Breast Surgical Oncology [facility] [place] [facility] and [employer] [facility] P: [phone] [facility]12-09-2022 History and physical note* PIOTR Cox - [...] y.o. premenopausal female who presents to the [facility] on 02/15/2022 for evaluation [...] in the UE. She presents to the [facility] today for evaluation. [...] Laterality Date TUBAL LIGATION Bilateral 2021 TONSILLECTOMY Breast/CASINO FLOORPERSON History: Social History Social History Narrative CASINO FLOORPERSON: No LMP recorded.. 01/2022 Last PAP: 2021 [...] LIMITED UNILATERAL RIGHT, 02/15/2022 09:49 AM (accession [id number]), 02/15/2022 09:56 AM (accession [id number]) CLINICAL INDICATIONS: Palpable abnormality 10:00 right breast [...] capsule PIOTR Paul, AOCNP Breast Surgical Oncology [facility] and [employer] [facility] P: [phone] documented in this [facility]12-09-2022 History of Present illness Narrative* Alicia Adams RN - 02/15/2022 8:00 AM EST Liudmila Worley was offered and declined a Medical Marketing Instructor for this exam/procedure/test 02/15/2022. documented in this [facility]11-21-2022 Miscellaneous Notes* Telephone Encounter - Aleshia Brito RN - 01/28/2022 3:19 PM EST Patient notified. States that she wishes to go to [facility]. Orders faxed. Aleshia Brito RN * Telephone Encounter - Kayla Ferrer MD - 01/28/2022 2:58 PM EST Yes, I told her at appt today that the wait was probably 4-5 weeks out but that I did not feel anything needed done emergently. I am ok with her waiting. If she desires sooner appt she can go to [facility]. * Telephone Encounter - Aleshia Brito RN [...] is on the waitlist. documented in this encounterPromedica Flower Hospital11-21-2022 Miscellaneous Notes* Telephone Encounter - Annabelle Bolaños LPN - 01/28/2022 2:37 PM EST Patient calling asking that [facility] diagnostic mamm and ultrasound right breast order be faxed to [facility] to [phone]. Printed orders, face sheet and faxed as requested. documented in this encounterPromedica Flower Hospital11-21-2022 Instructions* Patient Instructions* Kayla Ferrer MD - 01/28/2022 10:19 AM EST Breast Reconstruction Lobito Ruelas - [facility] [phone] [facility] [phone] Alan Saleh [facility] [phone] Dr. Robbie Nolen [facility] [phone] Dr. Iron Fernandez [facility] [phone] documented in this encounterPromedica Flower Hospital11-21-2022 History of Present illness Narrative* Kayla Ferrer MD - 01/28/2022 10:00 AM EST Marketing Instructor offered: Patient declines. Liudmila Worley is a [...] L3 SAB0 IAB0 Ectopic0 Multiple0 Live Births3 Retail Marketing Specialist History LMP: 10/11/2021 (Exact Date), Having periods Age at Menarche: Age at First : Age at Menopause: Retail Marketing Specialist History Comments: Sexual Activity: Yes; Male; bilateral [...] SALPINGECTOMY Bilateral 11/09/2021 Laparoscopic B/L Salpingectomy at [facility]-Dr. Syed TONSILLECTOMY PRIMARY/SECONDARY <AGE 14 FAMILY HISTORY [...] which included preparing to see the patient, daad-yc-rlfo patient care, completing clinical documentation, obtaining and/or reviewing separately obtained history, performing a medically appropriate examination, counseling and educating the pat ient/family/caregiver, and ordering medications, tests, or procedures Medical Decision Making: Medical Decision Making Level: 1 - N/A Kayla Bustillo MD documented in this encounterPromedica Flower Hospital11-08-2022 Miscellaneous Notes* Telephone Encounter - Wendy Obando Ma - 01/15/2022 11:19 AM EST PER LDT: Please make follow up appointments; AM in April any day F2F and VV next Left message for patient to call office documented in this encounterPromedica Flower Hospital10-24-2022 Miscellaneous Notes* Telephone Encounter - Mena [...] 12/31/2021 4:49 PM EDT Rashard pharmacist from [facility] calling patient is requesting Brand [...] you. Annabelle Bolaños LPN documented in this encounterPromedica Flower Hospital10-24-2022 Miscellaneous Notes* Telephone Encounter - Edelmira [...] prescription has been sent. documented in this encounterPromedica Flower Hospital09-24-2022 Miscellaneous Notes* Telephone Encounter - Ashley [...] filled. Provider out of office, sending to POWER SCREWDRIVER OPERATOR to do on Friday. * Telephone Encounter - Marcia Saravia - 11/30/2021 8:55 AM EDT Patient Liudmila called checking if prescription-lisdexamfetamine (VYVANSE) 40 mg capsule, can be increased to 50 mg. Please advise, . documented in this encounterPromedica Flower Hospital09-06-2022 History of Present illness Narrative* Jaylan Syed MD - 11/13/2021 12:39 PM EDT Laparoscopic bilateral salpingectomy at [facility] on 11/09/2021 without complication. Jaylan Syed MD documented in this encounterPromedica Flower Hospital08-24-2022 History of Present illness Narrative* Mena Vernon MD - 10/31/2021 5:44 PM EDT VIRTUAL VISIT PROGRESS NOTE This is a virtual visit using SEElogix video visit. It required patient-provider interaction for themedical decision making as documented below. Liudmila Worley is a 36 year old female seen for Medication check. 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 Panic attack first one at store--kids were with her. [place] warm; SOB, heart racing. happened before appointment [...] which included preparing to see the patient, ffiq-al-dffo patient care, completing clinical documentation, counseling and educating the patient/family/caregiver, and ordering medications, tests, or procedures Mena Vernon MD documented in this encounterPromedica Flower Hospital08-16-2022 History and physical note * Jaylan [...] allergies Jaylan Syed M.D. documented in this encounterPromedica Flower Hospital08-11-2022 Miscellaneous Notes* Telephone Encounter - Leyla [...] fill. Please advise and return her call. [facility] Pharmacy documented in this encounterPromedica Flower Hospital08-03-2022 Instructions* Patient Instructions* Anna Nieto Ma [...] to contact the office. documented in this encounterPromedica Flower Hospital08-03-2022 History of Present illness Narrative* Jaylan [...] contraception Jaylan Syed MD documented in this encounterPromedica Flower Hospital07-13-2022 History of Present illness Narrative* Jaylan [...] L3 SAB0 IAB0 Ectopic0 Multiple0 Live Births3 Retail Marketing Specialist History LMP: 09/13/2021 (Exact Date), Having periods Age at Menarche: Age at First : Age at Menopause: Retail Marketing Specialist History Comments: Sexual Activity: Yes; Male Contraception: [...] external genitalia normal, normal Bartholin's glands, urethra, Keokee's glands, no vulvar lesions, no cervical lesions, [...] signed Jaylan Syed MD documented in this encounterPromedica Flower Hospital06-09-2022 Miscellaneous Notes* Telephone Encounter - Leyla [...] Kelly Bush LPN * Telephone Encounter - Klely Bush LPN - 2021 8:35 AM EDT Left a message for pt to call the office and ask to speak to a triage nurse. Kelly Bush LPN * Telephone Encounter - Mena Vernon MD - 2021 12:59 AM EDT Is patient wanting to go back to Adderall instead of titrating up the Vyvanse? documented in this encounterPromedica Flower Hospital06-02-2022 Miscellaneous Notes* Telephone Encounter - Leyla Hussein LPN - 08/09/2021 11:39 AM EDT My chart message to pt to arrange appt or come to urgent care. * Telephone Encounter - Marcai Pace Pss - 08/09/2021 10:39 AM EDT Patient Liudmila called, she had a sore throat few days ago, now has a barky cough with green phlegm. Please advise if an inhaler can be prescribed, ok to leave VM (since at work) or message on my chart. documented in this encounterPromedica Flower Hospital05-24-2022 History of Present illness Narrative* Mena Vernon MD - 07/31/2021 11:02 AM EDT This note was created using Cotopaxiriter. Subjective Liudmila Worley is a 35 year [...] about 4:30. Melencrot not effective. Teva at [facility]--this was fine. Issues with shortages [...] which included preparing to see the patient, levf-yu-ghsh patient care, completing clinical documentation, obtaining and/or reviewingseparately obtained history, performing a medically appropriate examination, counseling and educating the patient/family/caregiver and ordering medications, tests, or procedures. Mena Vernon MD documented in this encounterPromedica Flower Hospital09-04-2019 History of Past illness Narrative* Problem [...] of this encounter (statuses as of 08/09/2021) [facility] of Past illness Narrative* Problem [...] of this encounter (statuses as of 08/16/2021) [facility] History of Past illness Narrative* Problem [...] of this encounter (statuses as of 09/19/2021) [facility] History of Past illness Narrative* Problem [...] of this encounter (statuses as of 09/28/2021) [facility] of Past illness Narrative* Problem [...] of this encounter (statuses as of 10/10/2021) [facility] History of Past illness Narrative* Problem [...] of this encounter (statuses as of 10/10/2021) [facility] of Past illness Narrative* Problem [...] of this encounter (statuses as of 10/18/2021) [facility] of Past illness Narrative* Problem [...] of this encounter (statuses as of 10/23/2021) [facility] of Past illness Narrative* Problem [...] of this encounter (statuses as of 10/31/2021) [facility] of Past illness Narrative* Problem [...] of this encounter (statuses as of 11/13/2021) [facility] of Past illness Narrative* Problem [...] of this encounter (statuses as of 12/01/2021) [facility] Narrative* Problem [...] of this encounter (statuses as of 12/31/2021) [facility] of Past illness Narrative* Problem [...] of this encounter (statuses as of 01/01/2022) [facility] Narrative* Problem [...] of this encounter (statuses as of 01/28/2022) [facility] Narrative* Problem [...] of this encounter (statuses as of 01/28/2022) [facility] Narrative* Problem [...] of this encounter (statuses as of 03/15/2022) [facility] Narrative* Problem [...] of this encounter (statuses as of 03/21/2022) [facility] Narrative* Problem [...] of this encounter (statuses as of 04/03/2022) [facility] Narrative* Problem [...] of this encounter (statuses as of 04/25/2022) [facility] Narrative* Problem [...] of this encounter (statuses as of 05/10/2022) [facility] Narrative* Problem [...] of this encounter (statuses as of 07/11/2022) [facility] Narrative* Problem [...] her satisfaction and consent was signed. Jaylan Syde MD Elevated blood pressure affe cting in [...] of this encounter (statuses as of 07/11/2022) [facility] Narrative* Problem [...] of this encounter (statuses as of 07/16/2022) [facility] Narrative* Problem [...] of this encounter (statuses as of 07/16/2022) [facility] Narrative* Problem [...] of this encounter (statuses as of 07/17/2022) [facility] Narrative* Problem [...] of this encounter (statuses as of 10/22/2022) [facility] Narrative* Problem [...] of this encounter (statuses as of 10/24/2022) [facility] Narrative* Problem [...] of this encounter (statuses as of 11/18/2022) [facility] Narrative* Problem [...] her satisfaction and consent was signed. Jaylan Syde MD Elevated blood pressure affe cting in [...] of this encounter (statuses as of 01/11/2023) [facility] Narrative* Problem [...] of this encounter (statuses as of 01/23/2023) [facility] Narrative* Problem [...] of this encounter (statuses as of 01/24/2023) [facility] Narrative* Problem [...] of this encounter (statuses as of 04/29/2023) [facility] Narrative* Problem [...] of this encounter (statuses as of 05/19/2023) [facility] Narrative* Problem [...] of this encounter (statuses as of 05/30/2023) [facility] Narrative* Problem [...] of this encounter (statuses as of 06/20/2023) [facility] note Author Julianne Adams [facility] Note Date/Time July 05, 2024 2:5 4pm [facility] Medical Records Department [address] [place] [address] Counseling Note - Pharmacy 07/05/24 1454 MR#: [id number] Acct: [id number] Name: LIUDMILA WORLEY Rep #:[id number] : 1985 38 From: Julianne Adams PCP: Dr. Mena Vernon MD Status:AD M IN Y Location: [facility] [place] Med Reconciliation Pharmacy Service has performed discharge medication reconciliation for this patient. The patient's discharge medication list was reviewed for discrepancies and discrepancies were resolved. Medications at Discharge Home Medications dextroamphetamine-amphetamine 30 mg tablet (Adderall) 30 mg PO 0800,1200 11/08/21 multivitamin 1 tab PO DAILY 11/08/21 lisinopril 5 mg tablet 5 mg PO DAILY 07/04/24 07/05/24 1457 <Electronically signed by Julianne Adams> Date _ Julianne Romeder Cosigner Signature (if applicable): Date CC: ~ Signed [facility] Work Phone: Discharge summary Author Harshil Nguyenrus [facility] Note Date/Time July 04, 2024 10: 44am [facility] Medical Records Department [address] [place] [address] Emergency Department Summary 07/04/24 MR#: [id number] Acct: [id number] Name: LIUDMILA WORLEY Rep #:[id number] : 1985 38 From: Harshil Garcia PCP: Dr. Mena Vernon MD Status:AD M IN Location: MS3 [id number] Gavin Alford DO on [...] flare October of last year diagnosed at [facility]. She is told to follow-up with her PCP she has not had any issues until yesterday evening she ate nodule cheese for lunch nothing for dinner. I spoke with on-call surgeon Dr. Austin, reviewed her imagings and labs along with labs from [facility]. Reported her AST was 100 at that [...] of Present Illness Chief Complaint: Abd Pain [facility] Medical History ADHD Alcohol use Anxiety [...] History obtained from others: none Consults: none [facility] Narrative: The patient was initially hemodynamically [...] final disposition This note was generated with [employer] dictation software. It may contain incorrectwords, spelling, [...] 79.3 H Lymph % (Auto) 12.7 L Coos % (Auto) 6.9 Eos % (Auto) 0.4 [...] MD [Primary Care Provider] - Print Language: [place] Rican What to do if you have Problems For any increased pain, shortness of breath, bleeding, nausea or vomiting, chestpain, or any unexpected problems, contact your Primary Care Provider. Call [facility] ([phone]) or report to the closest Emergency Room. Call 911 if necessary. 07/04/24 0707 <Electronically signed by Harshil Sanches DO> Cosigner Signature (if applicable): CC: Dr. Mena Vernon MD ~ Signed [facility] Work Phone: Discharge summary Author Tristen Harrison [facility] Note Date/Time July 05, 2024 2:2 5pm [facility] Medical Records Department [address] [place] [address] Instructions for Home/Discharge Instructions 07/05/24 1332 MR#: [id number] Acct: [id number] Name: LIUDMILA WORLEY Rep #:[id number] : 1985 38 From: Tristen mcclain DO [...] Liver Profile (Routine) Timeframe: 5 Days Facility: [facility] - Location: Laboratory Ordered By: Dr. Tristen Harrison Referrals / Follow Up: Mena Vernon MD [Primary Care Provider] - Sergio Mcfarland DO [Med Staff - Active Staff] - Disposition Disposition (needs filled in before D/C Order can be placed): Home, Self Care 07/05/24 1425<Electronically signed by Tristen Harrison DO>Tristen Harrison DO CC: Dr. Mena Vernon MD; Dr. uJan Hdez MD; Dr. Veronica Austin MD ~ Signed [facility] Work Phone: Evaluation + Plan note No data available for this section [facility] Evaluation noteNo assessment information available [facility] Work Phone: Evaluation note* Diagnosis Attention deficit hyperactivity disorder (ADHD), unspecified ADHD type [facility] Diagnosis Encounter for gynecological examination with abnormal finding- Primary Routine gynecological examination Menorrhagia with regular cycle Excessive or frequent menstruation documented [facility] this [facility]* Diagnosis Attention deficit hyperactivity disorder (ADHD), unspecified ADHD type- Primary Tremor Abnormal involuntary movements Eyelid twitch Abnormal involuntary movements Acne vulgaris Other acne Class 2 obesity due to excess calories with body mass index (BMI) of 37.0 to 37.9 in adult, unspecified whether serious comorbidity present [facility] Diagnosis Menorrhagia with regular cycle- Primary Excessive or frequent menstruation documented [facility]* Diagnosis Abnormal uterine bleeding (AUB)- Primary [facility] Diagnosis Attention deficit hyperactivity disorder (ADHD), unspecified ADHD type documented [facility]* Diagnosis Encounter for sterilization- Primary Sterilization Preoperative examination Preoperative examination, unspecified [facility] Diagnosis Attention deficit hyperactivity disorder (ADHD), unspecified ADHD type- Primary Anxiety and depression Dysthymic disorder Obesity due to excess calories without serious comorbidity, unspecified classification documented in this encounter [facility] note* Diagnosis Onset Date Resolution Status Sterilization acute [facility] Work Phone: Evaluation note* Diagnosis Encounter for sterilization- Primary Sterilization [facility] Diagnosis Attention deficit hyperactivity disorder (ADHD), unspecified ADHD type documented [facility]* Diagnosis Attention deficit hyperactivity disorder (ADHD), unspecified ADHD type- Primary documented in this [facility]* Diagnosis Breast pain- Primary Mastodynia Large breasts Hypertrophy of breast documented in this [facility]* Diagnosis Breast pain- Primary Mastodynia Mass of right breast, unspecified quadrant Breast pain Mastodynia Mass of right breast, unspecified quadrant Breast pain Mastodynia Mass of right breast, unspecified quadrant [facility] Diagnosis Breast pain Mastodynia Mass of right breast, unspecified quadrant [facility] Diagnosis Breast pain Mastodynia Mass of right breast, unspecified quadrant [facility] Diagnosis URI, acute- Primary Acute upper respiratory infections of unspecified site Nausea Nausea alone documented in this encounter [facility] note* Diagnosis Attention deficit hyperactivity disorder (ADHD), unspecified ADHD type- Primary Encounter for long-term current use of medication Encounter for immunization Need for other specified prophylactic vaccination against single bacterial disease documented in this encounter [facility] note* Diagnosis Attention deficit hyperactivity disorder (ADHD), unspecified ADHD type- Primary Anxiety and depression Dysthymic disorder Dry eyes Tear film insufficiency, unspecified documented in this encounter [facility] note* Diagnosis Feared complaint without diagnosis Person with feared complaint in whom no diagnosis was made documented in this encounter [facility] note* Diagnosis Encounter for gynecological examination with abnormal finding- Primary Routine gynecological examination Hirsutism Acne vulgaris Other acne Unintended weight gain Abnormal weight gain Class 2 obesity due to excess calories without serious comorbidity with body mass index (BMI) of 38.0 to 38.9 in adult documented in this encounter [facility] note* Diagnosis Attention deficit hyperactivity disorder (ADHD), unspecified ADHD type documented [facility] this encounter [facility]* Diagnosis Attention deficit hyperactivity disorder (ADHD), unspecified ADHD type documented [facility] this [facility]* Diagnosis Attention deficit hyperactivity disorder (ADHD), unspecified ADHD type- Primary Primary hypertension Unspecified essential hypertension Hypochromic microcytic anemia Iron deficiency anemia, unspecified Class 2 obesity due to excess calories with body mass index (BMI) of 38.0 to 38.9 in adult, unspecified whether serious comorbidity present Lipid screening Screening for lipoid disorders Encounter for long-term current use of medication documented [facility] this encounter [facility]* Diagnosis Viral URI- Primary Acute upper respiratory infections of unspecified site documented [facility] this [facility]* Diagnosis Attention deficit hyperactivity disorder (ADHD), unspecified ADHD type documented [facility]* Diagnosis Attention deficit hyperactivity disorder (ADHD), unspecified ADHD type documented [facility] this [facility]* Diagnosis Attention deficit hyperactivity disorder (ADHD), unspecified ADHD type- Primary documented in this encounter [facility]* Diagnosis Attention deficit hyperactivity disorder (ADHD), unspecified ADHD type [facility] Diagnosis Sore throat- Primary Acute pharyngitis [facility] Diagnosis Attention deficit hyperactivity disorder (ADHD), unspecified ADHD type documented [facility] this [facility]* Diagnosis Right upper quadrant abdominal pain- Primary Abdominal pain, right upper quadrant Flank pain Abdominal pain, unspecified site documented in this encounter [facility]* Diagnosis Attention deficit hyperactivity disorder (ADHD), unspecified ADHD type- Primary Iron deficiency Iron deficiency anemia, unspecified Primary hypertension Unspecified essential hypertension Class 2 obesity due to excess calories with body mass index (BMI) of 38.0 to 38.9 in adult, unspecified whether serious comorbidity present [facility] this [facility]* Diagnosis Acute cough documented [facility] this encounter [facility]* Diagnosis Attention deficit hyperactivity disorder (ADHD), unspecified ADHD type documented in this encounter [facility] note* Diagnosis Viral URI- Primary Acute upper respiratory infections of unspecified site Acute cough [facility] this [facility]* Diagnosis Attention deficit hyperactivity disorder (ADHD), unspecified ADHD type- Primary Essential (primary) hypertension Unspecified essential hypertension Iron deficiency anemia, unspecified iron deficiency anemia type Radiculopathy, thoracic region Thoracic or lumbosacral neuritis or radiculitis, unspecified Encounter for long-term current use of medication Obesity, Class II, BMI 35-39.9 Obesity, unspecified documented in this encounter [facility] note* Diagnosis Encounter for gynecological examination (general) (routine) without abnormal findings- Primary Screening for cervical cancer Screening for malignant neoplasm of the cervix Encounter for screening for human papillomavirus (HPV) Special screening examination for human papillomavirus (HPV) BMI 38.0-38.9,adult Body Mass Index 38.0-38.9, adult documented in this encounter [facility] note* Diagnosis Attention deficit hyperactivity disorder (ADHD), unspecified ADHD type [facility] Additional Instructions 1. Disc continue application of triple antibiotic ointment. 2. If you wish to apply appointment use bacitracin ointment. 3. Take antibiotics until gone 4. If you develop temperature greater than 100 have shaking chills or red streak toward your groin [facility] Work [facility]: Hospital Discharge instructions No data available for this section [facility] Instructions* Attachments The following attachments cannot be sent through Care Everywhere. * Breast Health ([facility]) ([place]) * Breast Pain (Mastalgia) ([facility]) ([place]) [facility] No data available for this section [facility] Progress note Author Sergio Mcfarland [facility] Note Date/Time August 10, 2024 9:48a m [facility] [address] [place] [address] OFFICE VISIT Date of Service: 08/10/24 MR#: [id number] Acct: [id number] Name: LIUDMILA WORLEY Rep #: [id number] : 1985 Provider: Sergio Mcfarland DO Age/Sex: 38/F [place] Status: Signed Intake Vital Signs 07/05/24 11:05 Height 5 ft 2 in Weight: 218 lb 14.704 oz BMI 40.0 Intake Visit Reasons: Abnormal test results Allergies metformin Adverse Reaction (Verified 07/04/24 11:01) Diarrhea Medications ?Medication ?Instructions ?Recorded ?Confirmed ?Type dextroamphetamine-amphetamine 30 30 mg PO 0800,1200 08/10/24 History mg tablet (Adderall) multivitamin 1 tab PO DAILY 11/08/21 06/06/01 History lisinopril 5 mg tablet 5 mg PO DAILY 07/04/2408/10 History PFSH Medical History Wears glasses Depression Anxiety Alcohol use Migraine headache Former smoker Hypertension Hx of vaginal delivery ADHD Surgical History History of tonsillectomy and adenoidectomy Family History no significant family his Social History (Updated 08/10/24 @ 09:23 by Zoey Bodager) household members: spouse Smoking Status: Former smoker alcohol intake: current alcohol intake frequency: holidays/special occasions only substance use type: does not use HPI HPI Details: LIUDMILA WORLEY, is a 38 F who presents to the office today for hospital followup. [facility] hospitalization 07.04.24 - 07.06.24 abd pain - GI consulted for acute cholecystitis gall bladder US 07.04.24 Cholelithiasis without sonographic evidence of acute cholecystitis. abd/pelvis CT 07.05.24 Nondistended gallbladder with appearance of edema, gallbladder fossa fluid for example coronal 49 concerning for possible cholecystitis, clinically correlate. No evidence of biliary ductal dilation. Small amount of left lower quadrant and pelvic free fluid. *BGI established 6..25 pt reports that she is feeling well [...] is a 38-year-old female who presented to [facility] ED on 07/04/2024 with RUQ abdominal [...] cholecystectomy. Orders: Orders CBC W/Diff, Automated Today R7. - Other specified abnormal findings of bloodchemistry CRP Today R7 - Other specified abnormal findings of blood chemistry Erythrocyte Sed Rate Today R7 - Other specified abnormal findings of blood chemistry Comprehensive Metabolic Profil Today R7 - Other specified abnormal findingsof blood chemistry Coding Level of Care Code Off vis,est,level 4 Diagnoses Elevated LFTs R7.08/10/24 0948 <Electronically signed by Sergio valenzuela DO> Date _ Sergio Mcfarland DO Cosigner Signature: Date (if applicable) CC: ~ [facility] Work Phone: Reason for referral (narrative)* Diagnostic Procedure Only (Routine) - Authorized Specialty Diagnoses / Procedures Referred By Travis garcia Referred To Contact [facility] Diagnoses Menorrhagia with regular cycle Procedures PELVIC US I US PELVIC NONOBSTETRIC REAL-TIME IMAGE COMPLETE Jaylan Syed MD [address] [place] [address] [address] [place] [place] [address] Referral ID Status Reason Start Date Expiration Date Visits Requested Visits Authorized [id number] Authorized Auto-Generat ed Referral 09/19/2021 09/19/2022 1 1 * Outpatient Procedure (Routine) - Authorized Specialty Diagnoses / Procedures Referred By Travis garcia Referred To Contact [facility] Diagnoses Menorrhagia with regular cycle Procedures ENDOMETRIAL BIOPSY ENDOMETRIAL BX W/WO ENDOCERVIX BX W/O DILAT SPX Jaylan Syed MD [address] [address] [facility] [address] [place] [address] Referral ID Status Reason Start Date Expiration Date Visits Requested Visits Authorized [id number] Authorized Auto-Generat ed Referral 09/19/2021 09/19/2022 1 1 [facility] for referral (narrative)* Diagnostic Procedure Only (Routine) - Authorized Specialty Diagnoses / Procedures Referred By Travis garcia Referred To Contact [facility] Diagnoses Breast pain Large breasts Procedures US BREAST LTD RT US BREAST UNI REAL TIME WITH IMAGE LIMITED Kayla Denny MD [address] [place] [address] [facility] [address] [place] [address] Referral ID Status Reason Start Date Expiration Date Visits Requested Visits Authorized [id number] Authorized Auto-Generat ed Referral 2 02/27/2023 1 1 * Diagnostic Procedure Only (Routine) - Authorized Specialty Diagnoses / Procedures Referred By Travis garcia Referred To Contact [facility] Diagnoses Breast pain Large breasts Procedures MATA DIAGNOSTIC BILAT DIAGNOSTIC MAMMOGRAPHY COMPUTER-AIDED DETCJ BI Kayla Denny MD [address] [place] [address] [facility] [address] [place] [id number] Referral ID Status Reason Start Date Expiration Date Visits Requested Visits Authorized [id number] Authorized Auto-Generat ed Referral 02/27/2023 1 1 [facility] for referral (narrative)No reason for referral information availableWCincinnati [facility] Work Phone: Chief Complaint and Reason for [...] August 10, 2024 9:06a m Advance Directives No Advanced Directives Records Found Advance Directive Response Recorded Date/ Time Advance Directives No April 8:45am Living Will No July 27, 2021 1 2:43pm Power of Distribution Operations Supervisor No July 27, 2021 12:43pm Advance Directive Response Recorded Date/ Time Advance Directives No April 8:45am Living Will No November 08 12:23pm Power of Distribution Operations Supervisor No November 08, 2021 12:23pm Advance Directive Response Recorded Date/ Time Advance Directives No April 8:45am Living Will No June 22, 2022 4:46pm Power of Distribution Operations Supervisor No June 22 4:46pm Advance Directive Response Recorded Date/ Time Do you have a Healthcare Power of Distribution Operations Supervisor? No July 04, 2024 6:20am Advance Directives No April 8:45am Advance Directive Response Recorded Date/ Time Do you have a Healthcare Power of Distribution Operations Supervisor? No July 04, 2024 11:02am Advance Directives No April 8:45am Reason for Referral Specialty Diagnoses / Procedures Referred By Contac t Referred To Contact Diagnoses Breast pain Mass of right breast, unspecified quadrant Procedures US BREAST LIMITED UNILATERAL RIGHT Venita Nair, CORPORATE ACCOUNTING MANAGER-METER/RELAY TECHNICIAN [address] [place] [address] Referral ID Status Reason Start Date Expiration Date V isits Requested Visits Authorized [id number] New Request 02/15/2022 03/12/2023 1 1 Specialty Diagnoses / Procedures Referred By Contac t Referred To Contact Diagnoses Breast pain Mass of right breast, unspecified quadrant Procedures MAMMO DIAGNOSTIC WITH MATA BILATERAL Venita Nair, CORPORATE ACCOUNTING MANAGER-METER/RELAY TECHNICIAN [address] [place] [address] Referral ID Status Reason Start Date Expiration Date V isits Requested Visits Authorized [id number] New Request 02/15/2022 03/12/2023 1 1 Specialty Diagnoses / Procedures Referred By Contac t Referred To Contact Diagnoses Attention deficit hyperactivity disorder (ADHD), unspecified ADHD type Mena Vernon MD [address] [place] [address] Referral ID Status Reason Start Date Expiration Date Visits Re quested Visits Authorized [id number] Closed 1 1 Referral ID Status Reason Start Date Expiration Date Visits Re quested Visits Authorized [id number] Closed 1 1 Referral ID Status Reason Start Date Expiration Date Visits Re quested Visits Authorized [id number] Closed 1 1 Specialty Diagnoses / Procedures Referred By Contac t Referred To Contact Diagnoses Anxiety and depression Mena Vernon MD [address] [place] [address] Referral ID Status Reason Start Date Expiration Date Visits Re quested Visits Authorized [id number] Closed 1 1 Referral ID Status Reason Start Date Expiration Date V isits Requested Visits Authorized [id number] Authorized 1 1 Referral ID Status Reason Start Date Expiration Date V isits Requested Visits Authorized [id number] Authorized 1 1 Referral ID Status Reason Start Date Expiration Date V isits Requested Visits Authorized [id number] Authorized 1 1 Specialty Diagnoses / Procedures Referred By Contac t Referred To Contact Diagnoses Class 2 obesity due to excess calories without serious comorbidity with body mass index (BMI) of 38.0 to 38.9 in adult Procedures CONSULT TO [facility] OFFICE/OUTPATIENT [facility] MDM 60-74 MINUTES Jaylan Syed MD [address] [place] [address] Referral ID Status Reason Start Date Expiration Date Visits Requested Visits Authorized [id number] Authorized PCP Requested Referral Auto-Generate d Referral 10/22/2022 10/22/2023 1 1 Referral ID Status Reason Start Date Expiration Date Visits Re quested Visits Authorized [id number] Closed 1 1 Specialty Diagnoses / Procedures Referred By Contac t Referred To Contact Diagnoses Attention deficit hyperactivity disorder (ADHD), unspecified ADHD type Deepti Redd APRN.CUPROUS CHLORIDE OPERATOR [address] [place] [address] Referral ID Status Reason Start Date Expiration Date Visits Re quested Visits Authorized [id number] Closed 1 1 Referral ID Status Reason Start Date Expiration Date Visits Re quested Visits Authorized [id number] Closed 1 1 Referral ID Status Reason Start Date Expiration Date Visits Re quested Visits Authorized [id number] Closed 1 1 Referral ID Status Reason Start Date Expiration Date Visits Re quested Visits Authorized [id number] Closed 1 1 Specialty Diagnoses / Procedures Referred By Contleonardo t Referred To Contact Diagnoses Attention deficit hyperactivity disorder (ADHD), unspecified ADHD type Karol Vergara APRN.METER/RELAY TECHNICIAN [address] [place] [address] Referral ID Status Reason Start Date Expiration Date Visits Re quested Visits Authorized [id number] Closed 1 1 Referral ID Status Reason Start Date Expiration Date Visits Re quested Visits Authorized [id number] Closed 1 1 Summary Purpose Family History [...] or prosecute any alcohol or drug abuse patient.[facility] the event this information is protected by the Federal Confidentiality of Alcohol and Drug Abuse Patient Records regulations: The Federal rules restrict any use of the information to criminally investigate or prosecute any alcohol or drug abuse patient.[facility] the event this information is protected by the Federal Confidentiality of Alcohol and Drug Abuse Patient Records regulations: The Federal rules restrict any use of the information to criminally investigate or prosecute any alcohol or drug abuse patient.[facility] the event this information is protected by the Federal Confidentiality of Alcohol and Drug Abuse Patient Records regulations: The Federal rules restrict any use of the information to criminally investigate or prosecute any alcohol or drug abuse patient.[facility] the event this information is protected by the Federal Confidentiality of Alcohol and Drug Abuse Patient Records regulations: The Federal rules restrict any use of the information to criminally investigate or prosecute any alcohol or drug abuse patient.[facility] the event this information is protected by the Federal Confidentiality of Alcohol and Drug Abuse Patient Records regulations: The Federal rules restrict any use of the information to criminally investigate or prosecute any alcohol or drug abuse patient.[facility] the event this information is protected by the Federal Confidentiality of Alcohol and Drug Abuse Patient Records regulations: The Federal rules restrict any use of the information to criminally investigate or prosecute any alcohol or drug abuse patient.[facility] Hospital[facility] the event this information is protected by the Federal Confidentiality of Alcohol and Drug Abuse Patient Records regulations: The Federal rules restrict any use of the information to criminally investigate or prosecute any alcohol or drug abuse patient.[facility] HospitalIn the event this information is protected by the Federal Confidentiality of Alcohol and Drug Abuse Patient Records regulations: The Federal rules restrict any use of the information to criminally investigate or prosecute any alcohol or drug abuse patient.[facility] HospitalIn the event this information is protected by the Federal Confidentiality of Alcohol and Drug Abuse Patient Records regulations: The Federal rules restrict any use of the information to criminally investigate or prosecute any alcohol or drug abuse patient.[facility] HospitalIn the event this information is protected by the Federal Confidentiality of Alcohol and Drug Abuse Patient Records regulations: The Federal rules restrict any use of the information to criminally investigate or prosecute any alcohol or drug abuse patient.[facility] HospitalIn the event this information is protected by the Federal Confidentiality of Alcohol and Drug Abuse Patient Records regulations: The Federal rules restrict any use of the information to criminally investigate or prosecute any alcohol or drug abuse patient.[facility] HospitalIn the event this information is protected by the Federal Confidentiality of Alcohol and Drug Abuse Patient Records regulations: The Federal rules restrict any use of the information to criminally investigate or prosecute any alcohol or drug abuse patient.[facility] HospitalIn the event this information is protected by the Federal Confidentiality of Alcohol and Drug Abuse Patient Records regulations: The Federal rules restrict any use of the information to criminally investigate or prosecute any alcohol or drug abuse patient.[facility] HospitalIn the event this information is protected by the Federal Confidentiality of Alcohol and Drug Abuse Patient Records regulations: The Federal rules restrict any use of the information to criminally investigate or prosecute any alcohol or drug abuse patient.[facility] HospitalIn the event this information is protected by the Federal Confidentiality of Alcohol and Drug Abuse Patient Records regulations: The Federal rules restrict any use of the information to criminally investigate or prosecute any alcohol or drug abuse patient.[facility] HospitalIn the event this information is protected by the Federal Confidentiality of Alcohol and Drug Abuse Patient Records regulations: The Federal rules restrict any use of the information to criminally investigate or prosecute any alcohol or drug abuse patient.[facility] HospitalIn the event this information is protected by the Federal Confidentiality of Alcohol and Drug Abuse Patient Records regulations: The Federal rules restrict any use of the information to criminally investigate or prosecute any alcohol or drug abuse patient.[facility] HospitalIn the event this information is protected by the Federal Confidentiality of Alcohol and Drug Abuse Patient Records regulations: The Federal rules restrict any use of the information to criminally investigate or prosecute any alcohol or drug abuse patient.[facility] HospitalIn the event this information is protected by the Federal Confidentiality of Alcohol and Drug Abuse Patient Records regulations: The Federal rules restrict any use of the information to criminally investigate or prosecute any alcohol or drug abuse patient.[facility] HospitalIn the event this information is protected by the Federal Confidentiality of Alcohol and Drug Abuse Patient Records regulations: The Federal rules restrict any use of the information to criminally investigate or prosecute any alcohol or drug abuse patient.[facility] HospitalIn the event this information is protected by the Federal Confidentiality of Alcohol and Drug Abuse Patient Records regulations: The Federal rules restrict any use of the information to criminally investigate or prosecute any alcohol or drug abuse patient.[facility] HospitalIn the event this information is protected by the Federal Confidentiality of Alcohol and Drug Abuse Patient Records regulations: The Federal rules restrict any use of the information to criminally investigate or prosecute any alcohol or drug abuse patient.[facility] HospitalIn the event this information is protected by the Federal Confidentiality of Alcohol and Drug Abuse Patient Records regulations: The Federal rules restrict any use of the information to criminally investigate or prosecute any alcohol or drug abuse patient.[facility] HospitalIn the event this information is protected by the Federal Confidentiality of Alcohol and Drug Abuse Patient Records regulations: The Federal rules restrict any use of the information to criminally investigate or prosecute any alcohol or drug abuse patient.[facility] HospitalIn the event this information is protected by the Federal Confidentiality of Alcohol and Drug Abuse Patient Records regulations: The Federal rules restrict any use of the information to criminally investigate or prosecute any alcohol or drug abuse patient.[facility] HospitalIn the event this information is protected by the Federal Confidentiality of Alcohol and Drug Abuse Patient Records regulations: The Federal rules restrict any use of the information to criminally investigate or prosecute any alcohol or drug abuse patient.[facility] HospitalIn the event this information is protected by the Federal Confidentiality of Alcohol and Drug Abuse Patient Records regulations: The Federal rules restrict any use of the information to criminally investigate or prosecute any alcohol or drug abuse patient.[facility] HospitalIn the event this information is protected by the Federal Confidentiality of Alcohol and Drug Abuse Patient Records regulations: The Federal rules restrict any use of the information to criminally investigate or prosecute any alcohol or drug abuse patient.[facility] HospitalIn the event this information is protected by the Federal Confidentiality of Alcohol and Drug Abuse Patient Records regulations: The Federal rules restrict any use of the information to criminally investigate or prosecute any alcohol or drug abuse patient.[facility] HospitalIn the event this information is protected by the Federal Confidentiality of Alcohol and Drug Abuse Patient Records regulations: The Federal rules restrict any use of the information to criminally investigate or prosecute any alcohol or drug abuse patient.[facility] HospitalIn the event this information is protected by the Federal Confidentiality of Alcohol and Drug Abuse Patient Records regulations: The Federal rules restrict any use of the information to criminally investigate or prosecute any alcohol or drug abuse patient.[facility] HospitalIn the event this information is protected by the Federal Confidentiality of Alcohol and Drug Abuse Patient Records regulations: The Federal rules restrict any use of the information to criminally investigate or prosecute any alcohol or drug abuse patient.[facility] HospitalIn the event this information is protected by the Federal Confidentiality of Alcohol and Drug Abuse Patient Records regulations: The Federal rules restrict any use of the information to criminally investigate or prosecute any alcohol or drug abuse patient.[facility] HospitalIn the event this information is protected by the Federal Confidentiality of Alcohol and Drug Abuse Patient Records regulations: The Federal rules restrict any use of the information to criminally investigate or prosecute any alcohol or drug abuse patient.[facility] HospitalIn the event this information is protected by the Federal Confidentiality of Alcohol and Drug Abuse Patient Records regulations: The Federal rules restrict any use of the information to criminally investigate or prosecute any alcohol or drug abuse patient.[facility] HospitalIn the event this information is protected by the Federal Confidentiality of Alcohol and Drug Abuse Patient Records regulations: The Federal rules restrict any use of the information to criminally investigate or prosecute any alcohol or drug abuse patient.[facility] HospitalIn the event this information is protected by the Federal Confidentiality of Alcohol and Drug Abuse Patient Records regulations: The Federal rules restrict any use of the information to criminally investigate or prosecute any alcohol or drug abuse patient.[facility] HospitalIn the event this information is protected by the Federal Confidentiality of Alcohol and Drug Abuse Patient Records regulations: The Federal rules restrict any use of the information to criminally investigate or prosecute any alcohol or drug abuse patient.[facility] HospitalIn the event this information is protected by the Federal Confidentiality of Alcohol and Drug Abuse Patient Records regulations: The Federal rules restrict any use of the information to criminally investigate or prosecute any alcohol or drug abuse patient.[facility] HospitalIn the event this information is protected by the Federal Confidentiality of Alcohol and Drug Abuse Patient Records regulations: The Federal rules restrict any use of the information to criminally investigate or prosecute any alcohol or drug abuse patient.[facility] HospitalIn the event this information is protected by the Federal Confidentiality of Alcohol and Drug Abuse Patient Records regulations: The Federal rules restrict any use of the information to criminally investigate or prosecute any alcohol or drug abuse patient.[facility] HospitalIn the event this information is protected by the Federal Confidentiality of Alcohol and Drug Abuse Patient Records regulations: The Federal rules restrict any use of the information to criminally investigate or prosecute any alcohol or drug abuse patient.[facility] HospitalIn the event this information is protected by the Federal Confidentiality of Alcohol and Drug Abuse Patient Records regulations: The Federal rules restrict any use of the information to criminally investigate or prosecute any alcohol or drug abuse patient.[facility] HospitalIn the event this information is protected by the Federal Confidentiality of Alcohol and Drug Abuse Patient Records regulations: The Federal rules restrict any use of the information to criminally investigate or prosecute any alcohol or drug abuse patient.[facility] HospitalIn the event this information is protected by the Federal Confidentiality of Alcohol and Drug Abuse Patient Records regulations: The Federal rules restrict any use of the information to criminally investigate or prosecute any alcohol or drug abuse patient.[facility] HospitalIn the event this information is protected by the Federal Confidentiality of Alcohol and Drug Abuse Patient Records regulations: The Federal rules restrict any use of the information to criminally investigate or prosecute any alcohol or drug abuse patient.[facility] HospitalIn the event this information is protected by the Federal Confidentiality of Alcohol and Drug Abuse Patient Records regulations: The Federal rules restrict any use of the information to criminally investigate or prosecute any alcohol or drug abuse patient.[facility] HospitalIn the event this information is protected by the Federal Confidentiality of Alcohol and Drug Abuse Patient Records regulations: The Federal rules restrict any use of the information to criminally investigate or prosecute any alcohol or drug abuse patient.[facility] HospitalIn the event this information is protected by the Federal Confidentiality of Alcohol and Drug Abuse Patient Records regulations: The Federal rules restrict any use of the information to criminally investigate or prosecute any alcohol or drug abuse patient.[facility] HospitalIn the event this information is protected by the Federal Confidentiality of Alcohol and Drug Abuse Patient Records regulations: The Federal rules restrict any use of the information to criminally investigate or prosecute any alcohol or drug abuse patient.[facility] HospitalIn the event this information is protected by the Federal Confidentiality of Alcohol and Drug Abuse Patient Records regulations: The Federal rules restrict any use of the information to criminally investigate or prosecute any alcohol or drug abuse patient.[facility] HospitalIn the event this information is protected by the Federal Confidentiality of Alcohol and Drug Abuse Patient Records regulations: The Federal rules restrict any use of the information to criminally investigate or prosecute any alcohol or drug abuse patient.[facility] HospitalIn the event this information is protected by the Federal Confidentiality of Alcohol and Drug Abuse Patient Records regulations: The Federal rules restrict any use of the information to criminally investigate or prosecute any alcohol or drug abuse patient.[facility] HospitalIn the event this information is protected by the Federal Confidentiality of Alcohol and Drug Abuse Patient Records regulations: The Federal rules restrict any use of the information to criminally investigate or prosecute any alcohol or drug abuse patient.[facility] HospitalIn the event this information is protected by the Federal Confidentiality of Alcohol and Drug Abuse Patient Records regulations: The Federal rules restrict any use of the information to criminally investigate or prosecute any alcohol or drug abuse patient.[facility] HospitalIn the event this information is protected by the Federal Confidentiality of Alcohol and Drug Abuse Patient Records regulations: The Federal rules restrict any use of the information to criminally investigate or prosecute any alcohol or drug abuse patient.[facility] HospitalIn the event this information is protected by the Federal Confidentiality of Alcohol and Drug Abuse Patient Records regulations: The Federal rules restrict any use of the information to criminally investigate or prosecute any alcohol or drug abuse patient.[facility] Reason for Visit (unrecogniz ed section and content) Reason Onset Date Comments Barky Cough 08/09/2021 Reason Onset Date Comments Refill Request 08/13/2021 Reason Comments Follow Up Reason Comments Endometrial Biopsy Specialty Diagnoses / Procedures Referred By Travis garcia Referred To Contact [facility] Diagnoses Menorrhagia with regular cycle Procedures ENDOMETRIAL BIOPSY ENDOMETRIAL BX W/WO ENDOCERVIX BX W/O DILAT SPX Jaylan Syed MD [address] [address] [facility] [address] [place] [address] Referral ID Status Reason Start Date Expiration Date V isits Requested Visits Authorized [id number] Closed Auto-Generate d Referral 09/19/2021 09/19/2022 1 1 Reason Comments CASINO FLOORPERSON Ultrasound Reason Comments Medication Question Reason Comments Pre-Op Visit Reason Comments Med Management Anxiety Depression Weight Management Reason Onset Date Comments Med Change Request 12/28/2021 Reason Onset Date Comments Refill Request 12/31/2021 patient wants br and name Ricky rx Reason Comments Breast Problem Reason Comments fax orders to [facility] Reason Comments Patient Question Reason Comments New Patient Here for evaluation of right breast flatter and nipple discomfort off and on last few months. Denies nipple discharge. States right breast feels warm at times. Specialty Diagnoses / Procedures Referred By Contleonardo t Referred To Contact Certified Nurse Practitioner / Surgical Oncology Diagnoses New Patient right breast flatter than the left-pain around nipple on right breast and breast feels warm to touch-no breast imaging. NPP mailed Procedures NEW DIAGNOSTIC BREAST CLINIC Self, Self Venita Nair CORPORATE ACCOUNTING MANAGER-METER/RELAY TECHNICIAN [address] [place] [address] Referral ID Status Reason Start Date Expiration Date V isits Requested Visits Authorized [id number] New Request 02/15/2022 03/12/2023 1 1 Specialty Diagnoses / Procedures Referred By Contac t Referred To Contact Diagnoses Breast pain Mass of right breast, unspecified quadrant Procedures MAMMO DIAGNOSTIC WITH MATA BILATERAL Venita Nair CORPORATE ACCOUNTING MANAGER-METER/RELAY TECHNICIAN [address] [id number] Referral ID Status Reason Start Date Expiration Date V isits Requested Visits Authorized [id number] New Request 02/15/2022 03/12/2023 1 1 Specialty Diagnoses / Procedures Referred By Contac t Referred To Contact Diagnoses Breast pain Mass of right breast, unspecified quadrant Procedures US BREAST LIMITED UNILATERAL RIGHT Venita Nair CORPORATE ACCOUNTING MANAGER-METER/RELAY TECHNICIAN [address] [id number] Referral ID Status Reason Start Date Expiration Date V isits Requested Visits Authorized [id number] New Request 02/15/2022 03/12/2023 1 1 Reason [...] Procedures EST SAME DAY Self Express Cl [facility] [address] [place] [address] Referral ID Status Reason Start Date Expiration Date Visits Requested Visits Authorized [id number] Pending Review Financial Clearance Required - Self [...] Referred To Contact Radiology / [facility] Diagnoses 2 Procedures XR CHEST Athy, Shima R, PA-C [address] [place] [address] Radio [facility] [address] [place] [address] Referral ID Status Reason Start Date Expiration Date V isits Requested Visits Authorized [id number] Closed Clearance Not Met -Financial Clearance Bypassed [...] Other Provider Active Start: July 05, 2024 Rug Receiving Clerk Relationship Specialty Start Date End Date Mena Vernon MD [address] [place] [address] PCP - General Internal Medicine 05/13/13 Rug Receiving Clerk Relationship Specialty Start Date End Date Mena Vernon MD [address] [place], [place] [address] PCP - General Internal Medicine 05/13/13 Rug Receiving Clerk Relationship Specialty Start Date End Date Mena Vernon MD [address] [place], [place] [address] PCP - General Internal Medicine 05/13/13 Rug Receiving Clerk Relationship Specialty Start Date End Date Mena Vernon MD [address] [place] [address] PCP - General Internal Medicine 05/13/13 Rug Receiving Clerk Relationship Specialty Start Date End Date Mena Vernon MD [address] [facility] [place] [address] PCP - General Internal Medicine 05/13/13 Rug Receiving Clerk Relationship Specialty Start Date End Date Mena Vernon MD [address] [facility] [place] [address] PCP - General Internal Medicine 05/13/13 Rug Receiving Clerk Relationship Specialty Start Date End Date Mena Vernon MD [address] [facility] [place] [address] PCP - General Internal Medicine 05/13/13 Rug Receiving Clerk Relationship Specialty Start Date End Date Mena Vernon MD [facility] [facility] [place] [address] PCP - General Internal Medicine 05/13/13 Rug Receiving Clerk Relationship Specialty Start Date End Date Mena Vernon MD [address] [facility] [place] [address] PCP - General Internal Medicine 05/13/13 Rug Receiving Clerk Relationship Specialty Start Date End Date Mena Vernon MD [address] [facility] [place] [address] PCP - General Internal Medicine 05/13/13 Rug Receiving Clerk Relationship Specialty Start Date End Date Mena Vernon MD [address] [facility] [place] [address] PCP - General Internal Medicine 02/15/22 Jaylan Syed MD [address] [place] [facility] [place] [address] Matrix Bath Operator Obstetrics & Gynecology 02/15/22 Rug Receiving Clerk Relationship Specialty Start Date End Date Mena Vernon MD [address] [facility] [place] [address] PCP - General Internal Medicine 02/15/22 Jaylan Syed MD [address] [facility] [place] [address] Matrix Bath Operator Obstetrics & Gynecology 02/15/22 Rug Receiving Clerk Relationship Specialty Start Date End Date Mena Vernon MD [address] [facility] [place] [address] PCP - General Internal Medicine 02/15/22 Jaylan Syed MD [address] [place] [place] [address] Matrix Bath Operator Obstetrics & Gynecology 02/15/22 Rug Receiving Clerk Relationship Specialty Start Date End Date Mena Vernon MD [address] [facility] [place] [address] PCP - General Internal Medicine 05/13/13 Rug Receiving Clerk Relationship Specialty Start Date End Date Mena Vernon MD [address] [facility] [place] [address] PCP - General Internal Medicine 05/13/13 Rug Receiving Clerk Relationship Specialty Start Date End Date Mena Vernon MD [address] [facility] [place] [address] PCP - General Internal Medicine 05/13/13 Team Status: Active Member Role Status Dates Dr. Mena Vernon MD Family Provider Active Dr. Mena Vernon MD Primary Care Provider Active Team Status: Inactive Member Role Status Dates Dr. Mena Vernon MD Primary Care Provider Active Dr. Johnny Barney MD Emergency Provider Active Rug Receiving Clerk Relationship Specialty Start Date End Date Mena Vernon MD [address] [facility] [place] [address] PCP - General Internal Medicine 05/13/13 Rug Receiving Clerk Relationship Specialty Start Date End Date Mena Vernon MD [address] [place] [address] PCP - General Internal Medicine 05/13/13 Rug Receiving Clerk Relationship Specialty Start Date End Date Mena Vernon MD [address] [place] [address] PCP - General Internal Medicine 05/13/13 Rug Receiving Clerk Relationship Specialty Start Date End Date Mena Vernon MD [address] [place] [address] PCP - General Internal Medicine 05/13/13 Rug Receiving Clerk Relationship Specialty Start Date End Date Mena Vernon MD [address] [place] [address] PCP - General Internal Medicine 05/13/13 Rug Receiving Clerk Relationship Specialty Start Date End Date Mena Vernon MD [address] [place] [address] PCP - General Internal Medicine 05/13/13 Rug Receiving Clerk Relationship Specialty Start Date End Date Mena Vernon MD [address] [place] [address] PCP - General Internal Medicine 05/13/13 Rug Receiving Clerk Relationship Specialty Start Date End Date Mena Vernon MD [address] [place] [address] PCP - General Internal Medicine 05/13/13 Rug Receiving Clerk Relationship Specialty Start Date End Date Mena Vernon MD [address] [place] [address] PCP - General Internal Medicine 05/13/13 Rug Receiving Clerk Relationship Specialty Start Date End Date Mena Vernon MD [address] [facility] [place] [address] PCP - General Internal Medicine 05/13/13 Rug Receiving Clerk Relationship Specialty Start Date End Date Mena Vernon MD [address] [facility] [place] [address] PCP - General Internal Medicine 05/13/13 Rug Receiving Clerk Relationship Specialty Start Date End Date Mena Vernon MD [address] [facility] [place] [address] PCP - General Internal Medicine 05/13/13 Rug Receiving Clerk Relationship Specialty Start Date End Date Mena Vernon MD [address] [facility] [place] [address] PCP - General Internal Medicine 05/13/13 Rug Receiving Clerk Relationship Specialty Start Date End Date Mena Vernon MD [address] [facility] [place] [address] PCP - General Internal Medicine 05/13/13 Rug Receiving Clerk Relationship Specialty Start Date End Date Mena Vernon MD [address] [facility] [place] [address] PCP - General Internal Medicine 05/13/13 Rug Receiving Clerk Relationship Specialty Start Date End Date Mena Vernon MD [address] [facility] [place] [address] PCP - General Internal Medicine 05/13/13 Rug Receiving Clerk Relationship Specialty Start Date End Date Mena Vernon MD [address] [facility] [place] [address] PCP - General Internal Medicine 05/13/13 Rug Receiving Clerk Relationship Specialty Start Date End Date Mena Vernon MD [address] [place] [address] PCP - General Internal Medicine 05/13/13 Deepti Redd, CORPORATE ACCOUNTING MANAGER.CUPROUS CHLORIDE OPERATOR [address] [place] [address] [facility] 02/16/24 Karol Vergara CORPORATE ACCOUNTING MANAGER.METER/RELAY TECHNICIAN [address] [place] [address] [facility] 02/16/24 Rug Receiving Clerk Relationship Specialty Start Date End Date Mena Vernon MD [address] [place] [address] PCP - General Internal Medicine 05/13/13 Deepti Redd, CORPORATE ACCOUNTING MANAGER.CUPROUS CHLORIDE OPERATOR [address] [place] [address] [facility] 02/16/24 Karol Vergara CORPORATE ACCOUNTING MANAGER.METER/RELAY TECHNICIAN [address] [place] [address] [facility] 02/16/24 Rug Receiving Clerk Relationship Specialty Start Date End Date Mena Vernon MD [address] [place] [address] PCP - General Internal Medicine 05/13/13 Deepti Redd, CORPORATE ACCOUNTING MANAGER.CUPROUS CHLORIDE OPERATOR [address] [facility] [place] [address] [facility] Internal [facility] 02/16/24 Karol Vergara APRN.METER/RELAY TECHNICIAN [address] [facility] [place] [address] [facility] Internal [facility] 02/16/24 Rug Receiving Clerk Relationship Specialty Start Date End Date Mena Vernon MD [address] [facility] [place] [address] PCP - General Internal Medicine 05/13/13 Deepti Redd APRN.CUPROUS CHLORIDE OPERATOR [address] [facility] [place] [address] [facility] Internal [facility] 02/16/24 Karol Vergara APRN.METER/RELAY TECHNICIAN [address] [facility], [place] [address] [facility] Internal [facility] 02/16/24 Team Status: Active Member Role Status [...] Start: July 05, 2024 Dr. Tristen Harrison , DO Other Provider Active Start: July 05, 2024 Team Status: Inactive Member Role Status Dates Dr. Mena Vernon MD Primary Care Provider Active Start: July 12, 2024 End: July 12, 2024 Dr. Tristen Harrison , Attending Provider Active Start: July 12, 2024 End: July 12, 2024 Dr. Tristen Harrison , DO Referring Provider Active Start: July 12, 2024 End: July 12, 2024 Rug Receiving Clerk Relationship Specialty Start Date End Date Mena Vernon MD [address] [facility] [place] [address] PCP - General Internal Medicine 05/13/13 Deepti Redd, CORPORATE ACCOUNTING MANAGER.CUPROUS CHLORIDE OPERATOR [address] [facility] [place] [address] [facility] 02/16/24 Karol Vergara CORPORATE ACCOUNTING MANAGER.METER/RELAY TECHNICIAN [address] [facility] [place] [address] [facility] 06/01/24 Rug Receiving Clerk Relationship Specialty Start Date End Date Mena Vernon MD [address] [facility] [place] [address] PCP - General Internal Medicine 05/13/13 Deepti Redd, CORPORATE ACCOUNTING MANAGER.CUPROUS CHLORIDE OPERATOR [address] [facility] [place] [address] [facility] 02/16/24 Karol Vergara CORPORATE ACCOUNTING MANAGER.METER/RELAY TECHNICIAN [address] [facility] [place] [address] [facility] Internal Medicine 06/01/24 Team Status: Active [...] Referring Provider Active Start: August 10, 2024 Rug Receiving Clerk Relationship Specialty Start Date End Date Mena Vernon MD [address] [place], [place] [address] PCP - General Internal Medicine 05/13/13 Karol Vergara CORPORATE ACCOUNTING MANAGER.METER/RELAY TECHNICIAN [address] [place] [address] [facility] 06/01/24 Deepti Redd, CORPORATE ACCOUNTING MANAGER.CUPROUS CHLORIDE OPERATOR [address] [facility] [place] [address] [facility] 07/28/24 Rug Receiving Clerk Relationship Specialty Start Date End Date Mena Vernon MD [address] [facility], [place] [address] PCP - General Internal Medicine 05/13/13 Karol Vergara, CORPORATE ACCOUNTING MANAGER.METER/RELAY TECHNICIAN [address] [place] [address] [facility] 06/01/24 Deepti Redd, CORPORATE ACCOUNTING MANAGER.CUPROUS CHLORIDE OPERATOR [address] [place] [address] [facility] 07/28/24 Rug Receiving Clerk Relationship Specialty Start Date End Date Mena Vernon MD [address] [place] [address] PCP - General Internal Medicine 05/13/13 Karol Vergara, CORPORATE ACCOUNTING MANAGER.METER/RELAY TECHNICIAN [address] [place] [address] [facility] 06/01/24 Deepti Redd, CORPORATE ACCOUNTING MANAGER.CUPROUS CHLORIDE OPERATOR [address] [place] [address] [facility] 07/28/24 INFORMATION SOURCE (unrecogn ized section and content) DATE CREATED AUTHOR 02/16/2022 [facility] DATE CREATED AUTHOR AUTHOR'S ORGANIZ ATION 11/09/2023 [facility] DATE CREATED AUTHOR AUTHOR'S ORGANIZ ATION 07/24/2024 [facility] DATE CREATED AUTHOR AUTHOR'S ORGANIZ ATION 11/14/2024 [facility] DATE CREATED AUTHOR AUTHOR'S ORGANIZ ATION 12/03/2024 [facility] FOR RECORDS PERTAINING TO PATIENTS WHO ARE [...] BE BASED ON THE PRIMARY CLINICAL RECORDS. [employer] [facility]. provides no warranty or guarantee of the accuracy or completeness of information in this document.
[2024-12-03] MEDS: 0.9% Normal Saline (1000mL) 1,000 ML 999 ML IV (17:42)
[2024-12-03 18:14] LABS: Mucous, Urine 0 SEEN /hpf (<or=2+)
[2024-12-03 18:19] LABS: Hematocrit 38.4 % (37-47); Hemoglobin 12.4 g/dL (12.0-15.0); Immature Granulocytes Count 0.010 X10^3/uL (0.0-0.0); Mean Corp Hgb Conc 32.3 g/dL (32-36); Mean Corpuscular Volume 80.2 fL (81-99); Mean Platelet Vol. 10.5 fl (6.2-12.0); NRBC Flagged by Analyzer 0 % (0-5); Platelet Count 347 K/mm3 (150-450); RBC Distribution Width CV 15.1 % (11.6-14.6); RBC Distribution Width SD 43.8 fl (35.1-43.9); Red Blood Count 4.79 M/mm3 (4.2-5.4); White Blood Count 4.7 K/mm3 (4.4-11.0)
[2024-12-03 18:22] LABS: Color, Urine Yellow (Yellow); Glucose, Dipstick Normal (Normal); Ketone-Dipstick Negative (Negative); Leukocyte Esterase-Dipstick Negative /ul (Negative); Nitrite-Dipstick Negative (Negative); Occult Blood-Urine Negative /ul (Negative); Protein-Dipstick 30 mg/dl (Negative); Specific Gravity, Urine 1.030 (1.002-1.030)
[2024-12-03 18:23] LABS: Urine Bilirubin Dipstick 1 mg/dL (Negative)
[2024-12-03 18:38] LABS: AST(SGOT) 1452 U/L (<=31); Alanine Aminotransfer ALT/SGPT 1428 U/L (<=34); Albumin, Serum 4.7 g/dL (3.5-5.0); Alkaline Phosphatase 164 U/L (35-104); Anion Gap 11 (5-15); BUN 9 mg/dL (4-19); BUN/Creat Ratio 14.1 RATIO (10-20); Calcium,Total 9.4 mg/dL (7.6-11.0); Carbon Dioxide 23.5 mmol/L (21.0-32.0); Chloride 105 mmol/L (98-108); Estimated Creatinine Clearance 134.15 ml/min (50-250); Globulin 2.5 g/dL (2.2-4.2); Glucose 95 mg/dL (70-99); Lipase 64 U/L (13-75); Potassium 4.0 mmol/L (3.3-5.1)
--- NOTE | 2024-12-03 19:21 | PCM.HP.STD ---
[facility] - General General Date of Admission: 12/03/24 Date of Service: 12/03/24 Chief Complaint: RUQ Abdominal Pain. HPI Narrative CANDICE WORLEY, is a 39 F with a past medical history of essential hypertension; on lisinopril, obesity (class II); with a BMI of 39.8 this admission, history of vaginal delivery x 3, former tobacco abuse (quit ~2009), ADHD; on dextroamphetamine-amphetamine twice daily, migraine headaches, history of depression with anxiety; currently not on treatment, GERD; on omeprazole and recent admission here from July 04, 2024 to July 05, 2024 for treatment of RUQ pain cholelithiasis and elevated LFTs with Dr. Austin of general surgery consulted at that time with CT scan of the abdomen pelvis with IV contrast revealing normal-appearing gallbladder and no duct dilatation with a corresponding gallbladder ultrasound that showed cholelithiasis with no evidence of acute cholecystitis with patient also having consultation with gastroenterology who noted unclear etiology but raised autoimmune hepatitis versus patient having passed a gallstone on her own as a possibility who now re-presents to [facility] ER complaining of RUQ pain. This patient was actually evaluated by Dr. Austin at ~9:24 AM earlier today for evaluation of persistent Right upper quadrant pain that began ~2 weeks ago. She informed the surgeon that she had epigastric abdominal pain that began at ~2 AM while and then tried to eat salad around 6 PM before eventually going to the ER at ~4:32 AM today. She also admits to associated nausea and GERD with the patient prescribed omeprazole by her PCP but she has yet to metal pickling equipment operator the prescription. According to Dr. Austin's note she planned to do cholecystectomy next week as long as insurance will pre-CERT which is expected to take "a couple weeks". She denies associated fever, chills, changes in vision, discharge from eyes, runny nose, sore throat, ear pain, chest pain, palpitations, heart racing, shortness of breath, cough, dysuria, hematuria, headache or rash. In the ER she was noted to have Hyperbilirubinemia; with a total bilirubin of 1.77 mg/dL in addition to evidence of Transaminitis; with AST 1,452 U/L, ALT 1,428 U/L and Alkaline Phosphatase of 164 U/L due to suspected Choledocholithiasis with a corresponding CT scan of the abdomen pelvis with IV contrast that revealed no acute findings in the abdomen or pelvis with scattered colonic diverticulosis without acute diverticulitis in addition to gallbladder ultrasound that revealed cholelithiasis without evidence of acute cholecystitis. I then spoke to the ER physician and recommended repeat GI consultation in this patient who has been admitted for similar complaints but now with worse laboratory findings. She was then admitted to the general medical floor for ongoing care for status expected to extend beyond 2 midnights. [facility] Medical History Cholelithiasis Wears glasses Depression Anxiety Alcohol use Migraine headache Former smoker Hypertension Hx of vaginal delivery ADHD Home Medications Medication Instructions Recorded Last Taken Type dextroamphetamine-amphetamine 30 30 mg PO 0800,1200 ADHD 11/08/21 12/02/24 History mg tablet (Adderall) multivitamin 1 tab PO DAILY supplement 11/08/21 12/02/24 History lisinopril 5 mg tablet 5 mg PO DAILY BP 07/04/24 12/03/24 History famotidine 20 mg tablet (Acid 20 mg PO DAILY gastrix reflux 12/03/24 12/03/24 History Remodeler (famotidine)) hydrocodone-acetaminophen 5-325mg 1 tab PO Q6H PRN pain 3 days #12 12/03/24 Unknown Rx 5mg-325mg tabs ketotifen fumarate 0.025 % (0.035 2 drp ophthalmic (eye) BID PRN 12/03/24 11/19/24 History %) eye drops allergy symptoms omeprazole 20 mg capsule,delayed 20 mg PO QDAY gastric reflux 12/03/24 12/03/24 History release Allergy/AdvReac Type Severity Reaction Status Date / Time metformin AdvReac Nausea/Vom/ Verified 12/03/24 20:48 Diarrhea Surgical History History of tonsillectomy and adenoidectomy Social History household members: spouse Smoking Status: Former smoker alcohol intake: current alcohol intake frequency: holidays/special occasions only substance use type: does not use ROS ROS Narrative Review of Systems: Constitutional: Patient denies fever or chills. Eyes: Patient denies change in vision or discharge from eyes. ENT: Patient has runny nose, sore throat or ear pain. Resp: Patient denies shortness of breath or cough. CV: Patient denies chest pain, palpitations, heart racing or lower extremity edema. GI: Patient admits to RUQ abdominal pain with nausea but she denies vomiting, diarrhea or constipation. : Patient denies dysuria or hematuria. MSK: Patient denies arthralgias or myalgias. Skin: Patient denies rash, abscess, wounds or jaundice. Psych: Patient denies symptoms of uncontrolled depression or anxiety. Neuro: Patient denies headache, paresthesias or focal neurologic deficits. Allergy: Patient denies lip swelling, tongue swelling or urticaria. Hematology: Patient denies easy bleeding or easy bruisability. Endocrinology: Patient denies polyuria, polydipsia, polyphagia or heat/cold intolerance. 14 point ROS otherwise negative except for positives noted above in HPI. Vital Signs Vital Signs Vital Signs: 12/03/24 15:01 12/03/24 17:03 12/03/24 17:04 Temperature 98.5 F Temperature Source Oral Pulse Rate 96 78 Respiratory Rate 18 18 Respiratory Effort Normal Non-Labored Blood Pressure 131/75 H 131/84 H Blood Pressure Mean 93 99 Pulse Ox 98 100 Oxygen Delivery Method Room Air Room Air Weight Weight: 217 lb 6.4 oz Body Mass Index (BMI) 39.7 Physical Exam Const alert, oriented x3 and no apparent distress Constitutional Narrative: Obese patient was nontoxic in appearance. General Appearance: cooperative HEENT normocephalic, head/scalp atraumatic, hearing grossly normal bilaterally and moist oral mucous membranes Eyes PERRL, EOMs intact bilaterally and conjunctivae normal Neck no lymphadenopathy, supple and no JVD Resp normal respiratory effort, no retractions, no use of accessory muscles and clear to auscultation bilaterally Cardio regular rate and regular rhythm GI soft to palpation and non-distended GI Narrative: Patient has mild tenderness to palpation in the RUQ with no guarding or rebound. Extremity normal to inspection, full ROM and no clubbing, cyanosis or edema Skin Skin Narrative: Patient has evidence of rash, abscess, wounds or jaundice. Neuro oriented x3, CN's II-XII intact bilaterally, moves all extremities and no focal motor deficits Sensorium / Orientation: awake, alert, oriented to person, oriented to place and oriented to time Speech: speech normal Psych affect normal Results Medical Records Data Attestation: I reviewed the patient's medical records Lab / Micro Data Attestation: I reviewed the patient's lab results. 12/04/24 06:05 12/04/24 06:05 Labs: Laboratory Results - last 24 hr 12/03/24 17:32: WBC 4.7, RBC 4.79, Hgb 12.4, Hct 38.4, MCV 80.2 L, MCH 25.9 L, MCHC 32.3, RDW Std Deviation 43.8, RDW Coeff of María 15.1 H, Plt Count 347, MPV 10.5, Immature Gran % (Auto) 0.200, Neut % (Auto) 75.0 H, Lymph % (Auto) 14.3 L, [facility] % (Auto) 9.2, Eos % (Auto) 0.9, Baso % (Auto) 0.4, Absolute Neuts (auto) 3.5, Absolute Lymphs (auto) 0.67 L, Nucleated RBC % 0, Sodium 139, Potassium 4.0, Chloride 105, Carbon Dioxide 23.5, Anion Gap 11, BUN 9, Creatinine 0.63 L, Estim Creat Clear Calc 134.15, Est GFR (MDRD) Non-Af 117, BUN/Creatinine Ratio 14.1, Glucose 95, Calcium 9.4, Total Bilirubin 1.77 H, AST 1452 H, ALT 1428 H, Alkaline Phosphatase 164 H, Total Protein 7.1, Albumin 4.7, Globulin 2.5, Albumin/Globulin Ratio 1.9, Lipase 64 12/03/24 17:40: Urine Color Yellow, Urine Clarity Sl. Cloudy, Urine pH 6.0, Ur Specific [place] 1.030, Urine Protein 30 H, Urine Glucose (UA) Normal, Urine Ketones Negative, Urine Occult Blood Negative, Urine Nitrite Negative, Urine Bilirubin 1 H, Urine Urobilinogen 1 H, Ur Leukocyte Esterase Negative Imaging Radiology Impression Abdomen/Pelvis CT 12/03/24 17:21 IMPRESSION: 1. No acute findings in the abdomen or pelvis. 2. Scattered colonic diverticulosis without acute diverticulitis. Reading [facility] Gallbladder Ultrasound 12/03/24 17:30 IMPRESSION: Cholelithiasis without evidence of acute cholecystitis. Reading Location: [facility] Assessment & Plan Assessment/Plan (1) Hyperbilirubinemia: (2) Transaminitis: (3) RUQ abdominal pain: (4) Cholelithiasis: QUALIFIERS: Biliary obstruction: without biliary obstruction Cholelithiasis location: other site Qualified Code(s): K80.80 - Other cholelithiasis without obstruction (5) Obesity (BMI 30-39.9): PLAN: Plan 1. Hyperbilirubinemia; with a total bilirubin of 1.77 mg/dL in addition to evidence of Transaminitis; with AST 1,452 U/L, ALT 1,428 U/L and Alkaline Phosphatase of 164 U/L due to suspected Choledocholithiasis - Admit to general medical floor. Keep strict NPO. Start empiric IV piperacillin-tazobactam and consult gastroenterology for consideration regarding ERCP this admission. Patient may also require liver biopsy if it has not already been done. Give pantoprazole 40 mg IV daily. Give ondansetron IV as needed for nausea or vomiting. Give IM promethazine as needed for breakthrough nausea. Give ketorolac IV as needed for [id number] (level 1-5/10) pain or fever. Give morphine IV as needed for severe (level 6-10/10) pain. Finally, we will also consult general surgeon who sent patient into the ER to be evaluated to help expedite potential cholecystectomy to avoid further serial readmission with patient also informing me general surgery is ordered a HIDA scan for the a.m. 2. Recent admission here from July 04, 2024 to July 05, 2024 for treatment of RUQ pain Cholelithiasis and elevated LFTs with Dr. Austin of general surgery consulted at that time with CT scan of the abdomen pelvis with IV contrast revealing normal-appearing gallbladder and no duct dilatation with a corresponding gallbladder ultrasound that showed cholelithiasis with no evidence of acute cholecystitis with patient also having consultation with gastroenterology who noted unclear etiology but raised autoimmune hepatitis versus patient having passed a gallstone on her own as a possibility complicating #1 - Noted. 3. Obesity (class II); with a BMI of 39.8 this admission adding to the burden of disease outlined in #1 & #2 - Weight loss will be recommended. Check TSH. This complicates her case and may hamper recovery. 4. Essential hypertension; on lisinopril - Hold oral medication in light of #1. Give hydralazine IV prn for systolic blood pressure > 160 mmHg. 5. History of vaginal delivery x 3 - Noted. 7. Former tobacco abuse (quit ~2009) - Noted. 8. ADHD; on dextroamphetamine-amphetamine twice daily - Restart this agent when patient cleared for oral intake. 9. Migraine headaches - Stable with no active complaints related to this issue at this time. 10. History of depression with anxiety; currently not on treatment - Stable. 11. GERD; on omeprazole - Patient started on IV pantoprazole for #1. 12. DVT prophylaxis - SCD's only with possible impending ERCP and/or liver biopsy. Total time: Approximately (but not less than) 55 minutes. Charges/Coding Visit Charges Inpatient E&M: 31858 Init Hosp L2
[2024-12-03 19:59] VITALS: BP 132/85; PULSE 78; RESP 18; O2SAT 98
--- OUTSIDE RECORDS SUMMARY | 2024-12-03 20:05 | XMS RPT_ITS | CCD ---
Author Organization [facility] ion Partnership [facility] Care Team Providers Care Felt Dyeing Machine Tender Name Role Phone Mena Vernon MD Primary [...] CASTAÑEDA, DR SAN Primary Care Unavailable Redd BIOLOGY LABORATORY ASSISTANT.RANGE MANAGEMENT SPECIALIST, Deepti Unavailable Jai BIOLOGY LABORATORY ASSISTANT.BIOMETRICS SPECIALIST, Karol Unavailable Jai BIOLOGY LABORATORY ASSISTANT.BIOMETRICS SPECIALIST, Karol Unavailable Saulo CASTAÑEDA, Dr. Mena Valenzuela Primary Care Provider [phone] Dr. Gavin Alford DO Emergency Provider [phone] Lemuel CASTAÑEDA, Dr. Martinez Admit Provider Lemuel CASTAÑEDA, Dr. Martinez Attending Provider Lemuel CASTAÑEDA, Dr. Martinez Other Provider Norman CASTAÑEDA, Dr. Martin Other Provider Hunter KING, Dr. Ramon Attending Provider Norman CASTAÑEDA, Dr. Martin Attending Provider [phone] Hunter KING, Dr. Ramon Other Provider Hunter KING, Dr. Ramon Referring Provider Jai BIOLOGY LABORATORY ASSISTANT.BIOMETRICS SPECIALIST, Karol Unavailable [phone] Hunter KING, Dr. Ramon Referring Provider Saulo CASTAÑEDA, Dr. Mena Valenzuela Referring Provider Bruna KING, Dr. Hill Attending Provider Bruna KING, Dr. Hill Referring Provider Redd BIOLOGY LABORATORY ASSISTANT.RANGE MANAGEMENT SPECIALIST, Deepti Unavailable [phone] JAYLAN SYED Attending Unavailable TALAMPAS, MENA D [...] adverse reactions 07-20-19 16 Other: See Comments [facility] (8 sources) Amphetamine aspartate / Amphetamine Sulfate / Dextroamphetamine saccharate / Dextroamphetamine Sulfate; Translations: [DEXTROAMPHETAMINE-A MPHETAMINE] Drug Allergy 05-25-19 Diarrhea [facility] (10 sources) metFORMIN; Translations: [METFORMIN] Drug Allergy 07-05-19 Diarrhea [facility] (1 source) metFORMIN Drug Allergy 12-04-19 [facility] Repository Medications Current Medications Medication [...] on above: Take 1 capsule by mo [facility] once daily for 7 days, THEN 3 capsules once daily for 7 days. Take one capsule bekah ly Do not start before August 08, 2021. Take 1 capsule by [facility] once daily for 7 days. Do not start before August 01, 2021. Take 1 capsule by [facility] once daily for 30 days. Do not start before August 14, 2021. Take 1 capsule by [facility] once daily for 30 days. lisinopril 5 mg oral tablet (20 sources) Angiotensin Converting Enzyme Inhibitor Start: 4 End: take 1 tablet by mouth once daily lisinopril (ZESTRIL) 5 mg tablet Take 1 tablet by mouth once daily. 90 tablet 3 04/19/2024 Active Comment on above: Take 1 tablet by [facility] once daily. Multiple Vitamin (multivitamin) capsule (3 [...] current use of drug therapy; Translations: [Other [facility]p (current) drug therapy] 04-19-2024 Episodic Other endocrine [...] 02-15-2022 02-15-2022 Other aftercare (1 source) Other mcfp (current) drug therapy; Translations: [Encounter for long-term [...] )on 12-03-2024 BUN/CRE 20.2 RATIO High 10-20 [facility] Comment on above: Performed By: #### L 500.3400, L501.2450, L100.0100, L500.2500 #### [facility] [address] [place], [address] Calcium [Mass/Vol] 9.5 mg/dL Normal 7.6-11.0 [facility] Comment on above: Performed By: #### L 500.3400, L501.2450, L100.0100, L500.2500 #### [facility] [address] [place], [address] Chloride [Moles/Vol] 102 mmol/L Normal 98-108 [facility] Comment on above: Performed By: #### L 500.3400, L501.2450, L100.0100, L500.2500 #### [facility] [address] [place], [address] CO2 [Moles/Vol] 25.6 mmol/L Normal 21.0-32.0 [facility] Comment on above: Performed By: #### L 500.3400, L501.2450, L100.0100, L500.2500 #### [facility] [address] [place], [address] Creatinine [Mass/Vol] 0.57 mg/dL Low 0.70-1.20 [facility] Comment on above: Performed By: #### L 500.3400, L501.2450, L100.0100, L500.2500 #### [facility] [address] [place], [address] ECRCL 148.60 ml/min Normal 50-250 [facility] Comment on above: Performed By: #### L 500.3400, L501.2450, L100.0100, L500.2500 #### [facility] [address] [place], [address] GAP 11 Normal 5-15 [facility] Comment on above: Performed By: #### L 500.3400, L501.2450, L100.0100, L500.2500 #### [facility] [address] [place], [address] GFR/1.73 sq M.predicted among non-blacks MDRD (S/P/Bld) [Vol rate/Area] 120 mL/min/{1.73_m2} Normal >60 [facility] Comment on above: Result Comment: mL/m in/1.73m2 CKD-EPI Creatinine Equation (2020) Performed By: #### L 500.3400, L501.2450, L100.0100, L500.2500 #### [facility] [address] [place], [address] Glucose [Mass/Vol] 89 mg/dL Normal 70-99 [facility] Comment on above: Performed By: #### L 500.3400, L501.2450, L100.0100, L500.2500 #### [facility] [address] [place], [address] Potassium [Moles/Vol] 3.6 mmol/L Normal 3.3-5.1 [facility] Comment on above: Performed By: #### L 500.3400, L501.2450, L100.0100, L500.2500 #### [facility] [address] [place], [address] Sodium [Moles/Vol] 138 mmol/L Normal 133-145 [facility] Comment on above: Performed By: #### L 500.3400, L501.2450, L100.0100, L500.2500 #### [facility] [address] [place], [address] Urea nitrogen [Mass/Vol] 12 mg/dL Normal 4-19 [facility] Comment on above: Performed By: #### L 500.3400, L501.2450, L100.0100, L500.2500 #### [facility] [address] [place], [address] CBC W/Diff, Automatedon 09-2 Absolute Lymph 1.93 X10 3/uL Normal 0.83-4.51 [facility] Comment on above: Performed By: #### L 500.3400, L501.2450, L100.0100, L500.2500 #### [facility] [address] [place], [address] Absolute Neut 4.2 X10 3/uL Normal 2.0-7.7 [facility] Comment on above: Performed By: #### L 500.3400, L501.2450, L100.0100, L500.2500 #### [facility] [address] [place], [address] Basophils/100 WBC (Bld) 0.7 % Normal 0-1 [facility] Comment on above: Performed By: #### L 500.3400, L501.2450, L100.0100, L500.2500 #### [facility] [address] [place], [address] Eosinophils/100 WBC (Bld) 1.8 % Normal 0-5 [facility] Comment on above: Performed By: #### L 500.3400, L501.2450, L100.0100, L500.2500 #### [facility] [address] [place], [address] Erythrocyte distribution width (RBC) [Ratio] 15.0 % High 11.6-14.6 [facility] Comment on above: Performed By: #### L 500.3400, L501.2450, L100.0100, L500.2500 #### [facility] [address] [place], [address] Hematocrit (Bld) [Volume fraction] 39.0 % Normal 37-47 [facility] Comment on above: Performed By: #### L 500.3400, L501.2450, L100.0100, L500.2500 #### [facility] [address] [place], [address] Hemoglobin (Bld) [Mass/Vol] 13.0 g/dL Normal 12.0-15. 0 [facility] Comment on above: Performed By: #### L 500.3400, L501.2450, L100.0100, L500.2500 #### [facility] [address] [place], [address] IG% 0.400 Normal 0.0-0.9 [facility] Comment on above: Result Comment: IG% - Immature Granulocytes (promyelocytes, myelocytes and metamyelocytes) > 1% indicates that a LEFT SHIFT is Present. Performed By: #### L 500.3400, L501.2450, L100.0100, L500.2500 #### [facility] [address] [place], [address] Lymphocytes/100 WBC (Bld) 27.4 % Normal 19-41 [facility] Comment on above: Performed By: #### L 500.3400, L501.2450, L100.0100, L500.2500 #### [facility] [address] [place], [address] MCH (RBC) [Entitic mass] 26.9 pg Low 27.0-32.0 [facility] Comment on above: Performed By: #### L 500.3400, L501.2450, L100.0100, L500.2500 #### [facility] [address] [place], [address] MCHC (RBC) [Mass/Vol] 33.3 g/dL Normal 32-36 [facility] Comment on above: Performed By: #### L 500.3400, L501.2450, L100.0100, L500.2500 #### [facility] [address] [place], [address] MCV (RBC) [Entitic vol] 80.6 fL Low 81-99 [facility] Comment on above: Performed By: #### L 500.3400, L501.2450, L100.0100, L500.2500 #### [facility] [address] [place], [address] Monocytes/100 WBC (Bld) 10.2 % High 0-10 [facility] Comment on above: Performed By: #### L 500.3400, L501.2450, L100.0100, L500.2500 #### [facility] [address] [place], [address] Neutrophils/100 WBC (Bld) 59.5 % Normal 47-70 [facility] Comment on above: Performed By: #### L 500.3400, L501.2450, L100.0100, L500.2500 #### [facility] [address] [place], [address] Nucleated RBC (Bld) [#/Vol] 0 10*3/uL Normal 0-5 [facility] Comment on above: Performed By: #### L 500.3400, L501.2450, L100.0100, L500.2500 #### [facility] [address] [place], [address] Platelet mean volume (Bld) [Entitic vol] 9.9 fL Normal 6.2-12.0 [facility] Comment on above: Performed By: #### L 500.3400, L501.2450, L100.0100, L500.2500 #### [facility] [address] [place], [address] Platelets (Bld) [#/Vol] 358 10*3/uL Normal 150-450 [facility] Comment on above: Performed By: #### L 500.3400, L501.2450, L100.0100, L500.2500 #### [facility] [address] [place], [address] RBC (Bld) [#/Vol] 4.84 10*6/uL Normal 4.2-5.4 [facility] Comment on above: Performed By: #### L 500.3400, L501.2450, L100.0100, L500.2500 #### [facility] [address] [place], [address] RDW SD 43.5 fl Normal 35.1-43.9 [facility] Comment on above: Performed By: #### L 500.3400, L501.2450, L100.0100, L500.2500 #### [facility] [address] [place], [address] WBC (Bld) [#/Vol] 7.1 10*3/uL Normal 4.4-11.0 [facility] Comment on above: Performed By: #### L 500.3400, L501.2450, L100.0100, L500.2500 #### [facility] [address] [place], [address] Lipaseon 12-03-2024 Lipase [Catalytic activity/Vol] 55 U/L Normal 13-75 [facility] Comment on above: Result Comment: Ronen baeza note: LIPASE revised reference range effective 22. New Lipase methodology. Expected to produce lower values than the previous assay method. NEW Reference Range: 13 - 75 U/L Performed By: #### L 500.3400, L501.2450, L100.0100, L500.2500 #### [facility] [address] [place], [address] Liver Profileon 12-03-2024 Albumin [Mass/Vol] 4.5 g/dL Normal 3.5-5.0 [facility] Comment on above: Performed By: #### L 500.3400, L501.2450, L100.0100, L500.2500 #### [facility] [address] [place], [address] ALK PHOS 72 U/L Normal 35-104 [facility] Comment on above: Performed By: #### L 500.3400, L501.2450, L100.0100, L500.2500 #### [facility] [address] [place], [address] ALT [Catalytic activity/Vol] 27 U/L Normal <=34 [facility] Comment on above: Performed By: #### L 500.3400, L501.2450, L100.0100, L500.2500 #### [facility] [address] [place], [address] AST [Catalytic activity/Vol] 37 U/L High <=31 [facility] Comment on above: Performed By: #### L 500.3400, L501.2450, L100.0100, L500.2500 #### [facility] [address] [place], [address] Bilirubin [Mass/Vol] 0.29 mg/dL Normal 0.00-1.30 [facility] Comment on above: Performed By: #### L 500.3400, L501.2450, L100.0100, L500.2500 #### [facility] [address] [place], [address] Bilirubin.direct [Mass/Vol] 0.15 mg/dL Normal 0.00-0.3 0 [facility] Comment on above: Performed By: #### L 500.3400, L501.2450, L100.0100, L500.2500 #### [facility] [address] [place], [address] Globulin (S) [Mass/Vol] 2.3 g/dL Normal 2.2-4.2 [facility] Comment on above: Performed By: #### L 500.3400, L501.2450, L100.0100, L500.2500 #### [facility] [address] [place], [address] T PROT 6.8 g/dL Normal 5.9-8.4 [facility] Comment on above: Performed By: #### L 500.3400, L501.2450, L100.0100, L500.2500 #### [facility] [address] [place], [address] ,Urineon 12-03-2024 Beta HCG ( test) Ql (U) Negative Normal [facility] Comment on above: Result Comment: Very dilute urine specimens, as indicated by a low specific gravity, may not contain patient care representative levels of hCG. If is still suspected, a first morning urine specimen should be collected 48 hours later and tested. Performed By: #### L 400.7600, L400.0001 #### [facility] [address] [place], [address] Urinalysis, Completeon 12-03 BACTERIA 2+ /hpf Normal None Seen [facility] Comment on above: Order Comment: CLEAN CATCH Performed By: #### L 400.0001, L400.7600 #### [facility] [address] [place], [address] EPI,SQUAMOUS 10-25 SEEN Normal 5-10 [facility] Comment on above: Order Comment: CLEAN CATCH Performed By: #### L 400.0001, L400.7600 #### [facility] [address] [place], [address] Mucus Ql (Urine sed) RARE Normal [facility] Comment on above: Order Comment: CLEAN CATCH Performed By: #### L 400.0001, L400.7600 #### [facility] [address] [place], [address] WBC 0-5 SEEN Normal 0-5 [facility] Comment on above: Order Comment: CLEAN CATCH Performed By: #### L 400.0001, L400.7600 #### [facility] [address] [place], [address] RBC 0 SEEN Normal 0-5 [facility] Comment on above: Order Comment: CLEAN CATCH Performed By: #### L 400.0001, L400.7600 #### [facility] [address] [place], [address] [facility] Telephone (INTWS) LIUDMILA WORLEY ([id number]) 1985 F Date Time Provider Department 11/09/24 [...] Status:Closed by EDELMIRA BAUGH on 11/09/24 Normal [facility] Absolute lymphocyte countOrd ered By: Sergio Mcfarland on 08-10-2024 Lymphocytes Auto (Unsp spec) [#/Vol] 1.20 10*3/uL 0.83-4.51 [facility] Absolute neutrophil countOrd ered By: Sergiomarissa Mcfarland on 08-10-2024 Neutrophils (Bld) [#/Vol] 2.9 10*3/uL 2.0-7.7 [facility] Anion gap in Serum or Plasma Ordered By: Sergio Mcfarland on 08-10-2024 Anion gap [Moles/Vol] 9 mmol/L 5-15 [facility] Automated lymphocyte count a s percentage of total leukocytesOrdered By: Sergiowilliam Mcfarland on 08-10-2024 Lymphocytes/100 WBC Auto (Unsp spec) 25.5 % 19-41 [facility] BUN/creatinine ratioOrdered By: Sergiowilliam Mcfarland on 08-10-2024 Urea nitrogen/Creatinine [Mass ratio] 16.5 mg/mg 10-20 [facility] Basophil percentageOrdered B y: Sergio Mcfarland on 08-10-2024 Basophils/100 WBC (Bld) 0.6 % 0-1 [facility] Bilirubin, totalOrdered By: Sergiowilliam Mcfarland on 08-10-2024 Bilirubin [Mass/Vol] 0.39 mg/dL 0.00-1.30 [facility] CBC W/Diff, Automatedon Absolute Lymph 1.20 X10 3/uL Normal 0.83-4.51 [facility] Comment on above: Performed By: #### L 500.3400, L501.2450, L100.0100, L500.2500 #### [facility] [address] [place], [address] Absolute Neut 2.9 X10 3/uL Normal 2.0-7.7 [facility] Comment on above: Performed By: #### L 500.3400, L501.2450, L100.0100, L500.2500 #### [facility] [address] [place], [address] Basophils/100 WBC (Bld) 0.6 % Normal 0-1 [facility] Comment on above: Performed By: #### L 500.3400, L501.2450, L100.0100, L500.2500 #### [facility] [address] [place], [address] Eosinophils/100 WBC (Bld) 2.3 % Normal 0-5 [facility] Comment on above: Performed By: #### L 500.3400, L501.2450, L100.0100, L500.2500 #### [facility] [address] [place], [address] Erythrocyte distribution width (RBC) [Ratio] 15.5 % High 11.6-14.6 [facility] Comment on above: Performed By: #### L 500.3400, L501.2450, L100.0100, L500.2500 #### [facility] [address] [place], [address] Hematocrit (Bld) [Volume fraction] 37.0 % Normal 37-47 [facility] Comment on above: Performed By: #### L 500.3400, L501.2450, L100.0100, L500.2500 #### [facility] [address] [place], [address] Hemoglobin (Bld) [Mass/Vol] 12.1 g/dL Normal 12.0-15. 0 [facility] Comment on above: Performed By: #### L 500.3400, L501.2450, L100.0100, L500.2500 #### [facility] [address] [place], [address] IG% 0.200 Normal 0.0-0.9 [facility] Comment on above: Result Comment: IG% - Immature Granulocytes (promyelocytes, myelocytes and metamyelocytes) > 1% indicates that a LEFT SHIFT is Present. Performed By: #### L 500.3400, L501.2450, L100.0100, L500.2500 #### [facility] [address] [place], [address] Lymphocytes/100 WBC (Bld) 25.5 % Normal 19-41 [facility] Comment on above: Performed By: #### L 500.3400, L501.2450, L100.0100, L500.2500 #### [facility] [address] [place], [address] MCH (RBC) [Entitic mass] 25.9 pg Low 27.0-32.0 [facility] Comment on above: Performed By: #### L 500.3400, L501.2450, L100.0100, L500.2500 #### [facility] [address] [place], [address] MCHC (RBC) [Mass/Vol] 32.7 g/dL Normal 32-36 [facility] Comment on above: Performed By: #### L 500.3400, L501.2450, L100.0100, L500.2500 #### [facility] [address] [place], [address] MCV (RBC) [Entitic vol] 79.1 fL Low 81-99 [facility] Comment on above: Performed By: #### L 500.3400, L501.2450, L100.0100, L500.2500 #### [facility] [address] [place], [address] Monocytes/100 WBC (Bld) 10.6 % High 0-10 [facility] Comment on above: Performed By: #### L 500.3400, L501.2450, L100.0100, L500.2500 #### [facility] [address] [place], [address] Neutrophils/100 WBC (Bld) 60.8 % Normal 47-70 [facility] Comment on above: Performed By: #### L 500.3400, L501.2450, L100.0100, L500.2500 #### [facility] [address] [place], [address] Nucleated RBC (Bld) [#/Vol] 0 10*3/uL Normal 0-5 [facility] Comment on above: Performed By: #### L 500.3400, L501.2450, L100.0100, L500.2500 #### [facility] [address] [place], [address] Platelet mean volume (Bld) [Entitic vol] 9.9 fL Normal 6.2-12.0 [facility] Comment on above: Performed By: #### L 500.3400, L501.2450, L100.0100, L500.2500 #### [facility] [address] [place], [address] Platelets (Bld) [#/Vol] 334 10*3/uL Normal 150-450 [facility] Comment on above: Performed By: #### L 500.3400, L501.2450, L100.0100, L500.2500 #### [facility] [address] [place], [address] RBC (Bld) [#/Vol] 4.68 10*6/uL Normal 4.2-5.4 [facility] Comment on above: Performed By: #### L 500.3400, L501.2450, L100.0100, L500.2500 #### [facility] [address] [place], [address] RDW SD 44.4 fl High 35.1-43.9 [facility] Comment on above: Performed By: #### L 500.3400, L501.2450, L100.0100, L500.2500 #### [facility] [address] [place], [address] WBC (Bld) [#/Vol] 4.7 10*3/uL Normal 4.4-11.0 [facility] Comment on above: Performed By: #### L 500.3400, L501.2450, L100.0100, L500.2500 #### [facility] [address] [place], [address] CRPon 08-10-2024 C-REACTIVE PROT 3.64 mg/L High 0.0-3.0 [facility] Comment on above: Performed By: #### L 500.3400, L501.2450, L100.0100, L500.2500 #### [facility] [address] [place], [address] Carbon dioxide, total [Moles /volume] in Central venous bloodOrdered By: Sergio Friend on 08-10-2024 CO2 [Moles/Vol] 23.7 mmol/L 21.0-32.0 [facility] Chloride assayOrdered By: Ra nila Mcfarland on 08-10-2024 Chloride [Moles/Vol] 105 mmol/L 98-108 [facility] Comprehensive Metabolic Prof ilon 08-10-2024 Albumin [Mass/Vol] 4.5 g/dL Normal 3.5-5.0 [facility] Comment on above: Performed By: #### L 500.3400, L501.2450, L100.0100, L500.2500 #### [facility] [address] [place], [address] Albumin/Globulin [Mass ratio] 1.7 {ratio} Normal 0.9-2.4 [facility] [facility] Comment on above: Performed By: #### L 500.3400, L501.2450, L100.0100, L500.2500 #### [facility] [address] [place], [address] ALK PHOS 88 U/L Normal 35-104 [facility] Comment on above: Performed By: #### L 500.3400, L501.2450, L100.0100, L500.2500 #### [facility] [address] [place], [address] ALT [Catalytic activity/Vol] 15 U/L Normal <=34 [facility] Comment on above: Performed By: #### L 500.3400, L501.2450, L100.0100, L500.2500 #### [facility] [address] [place], [address] AST [Catalytic activity/Vol] 18 U/L Normal <=31 [facility] Comment on above: Performed By: #### L 500.3400, L501.2450, L100.0100, L500.2500 #### [facility] [address] [place], [address] Bilirubin [Mass/Vol] 0.39 mg/dL Normal 0.00-1.30 [facility] Comment on above: Performed By: #### L 500.3400, L501.2450, L100.0100, L500.2500 #### [facility] [address] [place], [address] BUN/CRE 16.5 RATIO Normal 10-20 [facility] Comment on above: Performed By: #### L 500.3400, L501.2450, L100.0100, L500.2500 #### [facility] [address] [place], [address] Calcium [Mass/Vol] 9.2 mg/dL Normal 7.6-11.0 [facility] Comment on above: Performed By: #### L 500.3400, L501.2450, L100.0100, L500.2500 #### [facility] [address] [place], [address] Chloride [Moles/Vol] 105 mmol/L Normal 98-108 [facility] Comment on above: Performed By: #### L 500.3400, L501.2450, L100.0100, L500.2500 #### [facility] [address] [place], [address] CO2 [Moles/Vol] 23.7 mmol/L Normal 21.0-32.0 [facility] Comment on above: Performed By: #### L 500.3400, L501.2450, L100.0100, L500.2500 #### [facility] [address] [place], [address] Creatinine [Mass/Vol] 0.60 mg/dL Low 0.70-1.20 [facility] Comment on above: Performed By: #### L 500.3400, L501.2450, L100.0100, L500.2500 #### [facility] [address] [place], [address] GAP 9 Normal 5-15 [facility] Comment on above: Performed By: #### L 500.3400, L501.2450, L100.0100, L500.2500 #### [facility] [address] [place], [address] GFR/1.73 sq M.predicted among non-blacks MDRD (S/P/Bld) [Vol rate/Area] 119 mL/min/{1.73_m2} Normal >60 [facility] Comment on above: Result Comment: mL/m in/1.73m2 CKD-EPI Creatinine Equation (2020) Performed By: #### L 500.3400, L501.2450, L100.0100, L500.2500 #### [facility] [address] [place], [address] Globulin (S) [Mass/Vol] 2.6 g/dL Normal 2.2-4.2 [facility] Comment on above: Performed By: #### L 500.3400, L501.2450, L100.0100, L500.2500 #### [facility] [address] [place], [address] Glucose [Mass/Vol] 94 mg/dL Normal 70-99 [facility] Comment on above: Performed By: #### L 500.3400, L501.2450, L100.0100, L500.2500 #### [facility] [address] [place], [address] Potassium [Moles/Vol] 4.4 mmol/L Normal 3.3-5.1 [facility] Comment on above: Performed By: #### L 500.3400, L501.2450, L100.0100, L500.2500 #### [facility] [address] [place], [address] Sodium [Moles/Vol] 137 mmol/L Normal 133-145 [facility] Comment on above: Performed By: #### L 500.3400, L501.2450, L100.0100, L500.2500 #### [facility] [address] [place], [address] T PROT 7.1 g/dL Normal 5.9-8.4 [facility] Comment on above: Performed By: #### L 500.3400, L501.2450, L100.0100, L500.2500 #### [facility] [address] [place], [address] Urea nitrogen [Mass/Vol] 10 mg/dL Normal 4-19 [facility] Comment on above: Performed By: #### L 500.3400, L501.2450, L100.0100, L500.2500 #### [facility] [address] [place], [address] Eosinophil percentageOrdered By: Sergio Mcfarland on 08-10-2024 Eosinophils/100 WBC (Bld) 2.3 % 0-5 [facility] Erythrocyte Sed Rateon 08-10 SED RATE 6 mm/hr Normal 0-30 [facility] Comment on above: Performed By: #### L 500.3400, L501.2450, L100.0100, L500.2500 #### [facility] [address] [place], [place], [address] Erythrocyte distribution wid th ratioOrdered By: Sergio Mcfarland on 08-10-2024 Erythrocyte distribution width (RBC) [Ratio] 15.5 % High 11.6-14.6 [facility] Erythrocyte distribution wid th standard deviationOrdered By: Sergio Mcfarland on 08-10-2024 Erythrocyte distribution width (RBC) [Ratio] 44.4 fl High 35.1-43.9 [facility] Erythrocyte sedimentation ra teOrdered By: Sergio Mcfarland on 08-10-2024 ESR (Bld) [Velocity] 6 mm/h 0-30 [facility] Gastroenterology Visit Repor ton 08-10-2024 Gastroenterology Visit Report [facility] [address] [place] [address] OFFICE VISIT Date of Service: 08/10/24 MR#: [id number] Acct: [id number] Name: RUDYLIUDMILA MARQUIS Rep #: [id number] : 1985 Provider: Sergio Mcfarland DO Age/Sex: 38/F Location: [facility] Status: Signed Intake Vital Signs 07/05/24 11:05 [...] mg PO DAILY 07/04/24 08/10/24 Hi story [facility] Medical History Wears glasses Depression Anxiety Alcohol [...] the office today for hospital follow up. [facility] hospitalization 4..25 - 4.25 abd pain - [...] is a 38-year-old female who presented to [facility] ED on 07/04/2024 with RUQ [...] LFTs R79.89 (more content not included)... Normal [facility] Glomerular filtration rate ( GFR) estimation/1.73 sq m using serum, plasma, or whole bOrdered By: Sergio Mcfarland on 08-10-2024 GFR/1.73 sq M.predicted among non-blacks MDRD (S/P/Bld) [Vol rate/Area] 119 mL/min/{1.73_m2} >60 [facility] Comment on above: mL/min/1.73m2 CKD-EP I Creatinine Equation (2020) Hematocrit Auto (Bld) [Volum e fraction]Ordered By: Sergio Mcfarland on 08-10-2024 Hematocrit (Bld) [Volume fraction] 37.0 % 37-47 [facility] Hemoglobin measurementOrdere d By: Sergio Mcfarland on 08-10-2024 Hemoglobin (Bld) [Mass/Vol] 12.1 g/dL 12.0-15. 0 [facility] Immature granulocytes/100 WB C Auto (Bld)Ordered By: Sergio Mcfarland on 08-10-2024 Immature granulocytes/100 WBC (Bld) 0.200 % 0.0-0.9 [facility] Comment on above: IG% - Immature Granu locytes (promyelocytes, myelocytes and metamyelocytes) > 1% indicates that a LEFT SHIFT is Present. Laboratory - Chemistry and C hemistry - challengeOrdered By: Sergio Mcfarland on 08-10-2024 AST [Catalytic activity/Vol] 18 U/L <32 [facility] MCV (mean corpuscular volume ) determinationOrdered By: Sergio Mcfarland on 08-10-2024 MCV (RBC) [Entitic vol] 79.1 fL Low 81-99 [facility] Mean corpuscular hemoglobin (MCH) determinationOrdered By: Sergio Mcfarland on 08-10-2024 MCH (RBC) [Entitic mass] 25.9 pg Low 27.0-32.0 [facility] Mean corpuscular hemoglobin concentration (MCHC) determinationOrdered By: Sergio Mcfarland on 08-10-2024 MCHC (RBC) [Mass/Vol] 32.7 g/dL 32-36 [facility] Mean platelet volume determi nationOrdered By: Sergio Mcfarland on 08-10-2024 Platelet mean volume (Bld) [Entitic vol] 9.9 fL 6.2-12.0 [facility] Monocyte percentageOrdered B y: Sergio Mcfarland on 08-10-2024 Monocytes/100 WBC (Bld) 10.6 % High 0-10 [facility] Neutrophil percentageOrdered By: Sergio Mcfarland on 08-10-2024 Neutrophils/100 WBC (Bld) 60.8 % 47-70 [facility] Nucleated red blood cell per centageOrdered By: Sergio Mcfarland on 08-10-2024 Nucleated RBC/100 WBC (Bld) [Ratio] 0 % 0-5 [facility] Platelet countOrdered By: Ra nila Mcfarland on 08-10-2024 Platelets (Bld) [#/Vol] 334 10*3/uL 150-450 [facility] Potassium measurement (mass/ volume)Ordered By: Sergio Mcfarland on 08-10-2024 Potassium (Unsp spec) [Mass/Vol] 4.4 mmol/L 3.3-5.1 [facility] RBC Auto (Bld) [#/Vol]Ordere d By: Sergio Mcfarland on 08-10-2024 RBC (Bld) [#/Vol] 4.68 10*6/uL 4.2-5.4 [facility] Serum creatinine measurement (mass/volume)Ordered By: Sergio Mcfarland on 08-10-2024 Creatinine [Mass/Vol] 0.60 mg/dL Low 0.70-1.20 [facility] Serum globulin measurementOr dered By: Sergio Mcfarland on 08-10-2024 Globulin (S) [Mass/Vol] 2.6 g/dL 2.2-4.2 [facility] Serum glucose measurement (m ass/volume)Ordered By: Sergio Mcfarland on 08-10-2024 Glucose [Mass/Vol] 94 mg/dL 70-99 [facility] Serum or plasma C reactive p rotein measurement (mass/volume)Ordered By: Sergio Mcfarland on 08-10-2024 CRP [Mass/Vol] 3.64 mg/L High 0.0-3.0 [facility] Serum or plasma alanine wilde otransferase (ALT) measurementOrdered By: Sergio Mcfarland on 08-10-2024 ALT [Catalytic activity/Vol] 15 U/L <35 [facility] Serum or plasma albumin brian urement (mass/volume)Ordered By: Sergio Mcfarland on 08-10-2024 Albumin [Mass/Vol] 4.5 g/dL 3.5-5.0 [facility] Serum or plasma albumin/glob ulin mass ratioOrdered By: Sergio Mcfarland on 08-10-2024 Albumin/Globulin [Mass ratio] 1.7 {ratio} 0.9-2.4 [facility] Serum or plasma alkaline eduardo sphatase measurementOrdered By: Sergio Mcfarland on 08-10-2024 ALP [Catalytic activity/Vol] 88 U/L 35-104 [facility] Serum or plasma calcium brian urement (mass/volume)Ordered By: Sergio Mcfarland on 08-10-2024 Calcium [Mass/Vol] 9.2 mg/dL 7.6-11.0 [facility] Serum or plasma urea nitroge n measurement (mass/volume)Ordered By: Sergio Mcfarland on 08-10-2024 Urea nitrogen [Mass/Vol] 10 mg/dL 4-19 [facility] Sodium levelOrdered By: Caleb ann Friend on 08-10-2024 Sodium [Moles/Vol] 137 mmol/L 133-145 [facility] Total proteinOrdered By: Edgard prescott Friend on 08-10-2024 Protein [Mass/Vol] 7.1 g/dL 5.9-8.4 [facility] White blood cell (WBC) count Ordered By: Sergio Mcfarland on 08-10-2024 WBC (Bld) [#/Vol] 4.7 10*3/uL 4.4-11.0 [facility] 07-23-2024 DELMA Telephone (AGGENS4) LIUDMILA WORLEY ([id number]) 1985 F Date Time Provider Department 07/23/24 [...] Encounter Status:Closed by KAMRON HORTON on 07/23/24 [facility] CNOVon 07-21-2024 CNOV Office Visit (OBGYWM ) MEIRLIUDMILA ([id number]) 1985 F Date Time Provider Department 07/21/24 [...] wasn't her gallbladder. . 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 As applicable, any other physician, advance practice provider, medical student, or other health professional student that will be observing or involved in the sensitive examination for educational or training purposes was discussed with the Patient or Authorized Cracking Still Operator. The Patient or Authorized Cracking Still Operator has agreed to proceed with the sensitive [...] external genitalia normal, normal Bartholin's glands, urethra, Terry's glands, no vulvar lesions, no cervical lesions, [...] human papillomavir (more content not included)... Normal [facility] HIGH RISK HUMAN PAPILLOMA ANGEL (HPV), PCR FOR DETECTION AND GENOTYPINGon 07-21-2024 HPV 16 Ag Ql (Unsp spec) Not detected Normal Not detected [facility] Comment on above: Order Comment: Speci men Type: BLOOD SPECIMEN Ordering Facility: [facility] Address: [address] [place] [address] Performed By: #### 2 4331-1, 2276-4, 94563-7, 02585-8 #### [facility] CLIA [id number] [address] [place] [address] [place] [address] [place] HPV 18 Ag Ql (Unsp spec) Not detected Normal Not detected [facility] Comment on above: Order Comment: Speci men Type: BLOOD SPECIMEN Ordering Facility: [facility] Address: [address] [place] [address] Performed By: #### 2 4331-1, 2276-4, 40436-9, 46673-9 #### [facility] CLIA [id number] [address] [place] [address] [place] HPV 31+33+35+39+45+51+52+56+58+ 59+66+68 DNA DAVID+probe Ql (Cvx) Not detected Normal Not detected [facility] Comment on above: Order Comment: Speci men Type: BLOOD SPECIMEN Ordering Facility: [facility] Address: [address] [place] [address] Result Comment: High Risk HPV Other Type includes HPV types 31, 33, 35, 39, 45, 51, 52, 56, 58, 59, 66 and 68. Performed By: #### 2 4331-1, 2276-4, 09118-1, 90306-1 #### [facility] CLIA [id number] [address] [place] [address] [place] PAP TESTon 07-21-2024 ADEQUACY Normal [facility] Comment on above: Order Comment: Speci men Type: FLUID SPECIMEN Ordering Facility: [facility] Address: [address] [place] [address] Result Comment: Sati sfactory for interpretation. Transformation zone present Performed By: #### L [id number] #### [facility] CLIA [id number] [address] [place] [address] [place] CASE REPORT Normal [facility] Comment on above: Order Comment: Speci men Type: FLUID SPECIMEN Ordering Facility: [facility] Address: [address] [place] [address] Result Comment: Gyne cologic Cytology Report Case: [id number] Authorizing Provider: Jaylan Syed MD Collected: 07/21/2024 04:42 PM Ordering Location: OB/Gynecology Received: 07/22/2024 11:56 AM First Screen: Heard, [place], [place], ASCP Specimen: Pap Test, ThinPrep, Cervix Performed By: #### L [id number] #### [facility] CLIA [id number] [address] [place] [address] [place] CLINICAL HISTORY, CYTOLOGY, ENGINEERING VICE PRESIDENT Routine Exam Normal [facility] Comment on above: Order Comment: Speci men Type: FLUID SPECIMEN Ordering Facility: [facility] Address: [address] [place] [address] Performed By: #### L [id number] #### [facility] CLIA [id number] [address] [place], [place] [id number] [place] [facility] FINAL PERFORMING LAB Normal [facility] Comment on above: Order Comment: Speci men Type: FLUID SPECIMEN Ordering Facility: [facility] Address: [address] [place] [address] Result Comment: Tech nical component, trouble locater screening performed at: [facility], [address] [place] [address] CLIA: [id number] Diagnostic interpretation performed at: [facility], [address] [place] [address] CLIA# [id number] Site Manager: Santo Rudd MD Performed By: #### L [id number] #### [facility] CLIA [id number] [address] [place] [address] [place] INTERPRETATION, CYTOLOGY, ENGINEERING VICE PRESIDENT Normal [facility] Comment on above: Order Comment: Speci men Type: FLUID SPECIMEN Ordering Facility: [facility] Address: [address] [place] [address] Result Comment: Nega tive for intraepithelial lesion or malignancy. at 1358 EDT Performed By: #### L [id number] #### [facility] CLIA [id number] [address] [place], [place] [address] [place] LMP 07/16/2024 Normal [facility] Comment on above: Order Comment: Speci men Type: FLUID SPECIMEN Ordering Facility: [facility] Address: [address] [place] [address] Performed By: #### L [id number] #### [facility] CLIA [id number] [address] [place] [address] [place] PAP DISCLAIMER COMMENT The Pap Smear is a screening test for cervical cancer. False negative results occur with all screening tests, emphasizing the need for rescreening at recommended intervals, and clinical correlation. Normal [facility] Comment on above: Order Comment: Speci men Type: FLUID SPECIMEN Ordering Facility: [facility] Address: [address] [place] [address] Performed By: #### L [id number] #### [facility] CLIA [id number] [address] [place] [address] [place] PAP CRIB PAD MAKER COMMENT This specimen has been analyzed by the FDA-approved Dasher System, which uses digital imaging and an enhanced artificial intelligence image analysis algorithm to identify lux of interest on the microscopic slide, to assist the cook mess and pathologist in evaluating cells on ThinPrep Pap tests. Following analysis, lux of interest on the microscopic slide selected by the algorithm are reviewed by a cook mess. If a sample requires hierarchical review, the pathologist will review the same lux of interest selected by the algorithm prior to final interpretation. Normal [facility] Comment on above: Order Comment: Speci men Type: FLUID SPECIMEN Ordering Facility: [facility] Address: [address] [place] [address] Performed By: #### L [id number] #### [facility] CLIA [id number] [address] [place] [address] [place] Bilirubin directOrdered By: Tristen [place] on 07-12-2024 Bilirubin.direct [Mass/Vol] 0.10 mg/dL 0.00-0.3 0 [facility] Bilirubin, totalOrdered By: Tristen [place] on 07-12-2024 Bilirubin [Mass/Vol] 0.16 mg/dL 0.00-1.30 [facility] - Chemistry and C hemistry - challengeOrdered By: Tristen [place] on 07-12-2024 AST [Catalytic activity/Vol] 24 U/L <32 [facility] Liver Profileon 07-12-2024 Albumin [Mass/Vol] 4.5 g/dL Normal 3.5-5.0 [facility] Comment on above: Performed By: #### L 400.7600, L400.0001 #### [facility] [address] [place], [address] ALK PHOS 143 U/L High 35-104 [facility] Comment on above: Performed By: #### L 400.7600, L400.0001 #### [facility] [address] [place], [address] ALT [Catalytic activity/Vol] 113 U/L High <=34 [facility] Comment on above: Performed By: #### L 400.7600, L400.0001 #### [facility] [address] [place], [address] AST [Catalytic activity/Vol] 24 U/L Normal <=31 [facility] Comment on above: Performed By: #### L 400.7600, L400.0001 #### [facility] [address] [place], [address] Bilirubin [Mass/Vol] 0.16 mg/dL Normal 0.00-1.30 [facility] Comment on above: Performed By: #### L 400.7600, L400.0001 #### [facility] [address] [place], [address] Bilirubin.direct [Mass/Vol] 0.10 mg/dL Normal 0.00-0.3 0 [facility] Comment on above: Performed By: #### L 400.7600, L400.0001 #### [facility] [address] [place], [address] Globulin (S) [Mass/Vol] 3.0 g/dL Normal 2.2-4.2 [facility] Comment on above: Performed By: #### L 400.7600, L400.0001 #### [facility] [address] [place], [address] T PROT 7.5 g/dL Normal 5.9-8.4 [facility] Comment on above: Performed By: #### L 400.7600, L400.0001 #### [facility] [address] [place], [address] Serum globulin measurementOr dered By: Tristen [place] on 07-12-2024 Globulin (S) [Mass/Vol] 3.0 g/dL 2.2-4.2 [facility] Serum or plasma alanine wilde otransferase (ALT) measurementOrdered By: Tristen [place] on 07-12-2024 ALT [Catalytic activity/Vol] 113 U/L High <35 [facility] Serum or plasma albumin brian urement (mass/volume)Ordered By: Tristen [place] on 07-12-2024 Albumin [Mass/Vol] 4.5 g/dL 3.5-5.0 [facility] Serum or plasma alkaline eduardo sphatase measurementOrdered By: Tristen [place] on 07-12-2024 ALP [Catalytic activity/Vol] 143 U/L High 35-104 [facility] Total proteinOrdered By: Jerilyn [place] on 07-12-2024 Protein [Mass/Vol] 7.5 g/dL 5.9-8.4 [facility] ANCAon 07-09-2024 Atypical pANCA <1:20 Normal Neg:<1:20 [facility] Comment on above: Result Comment: The atypical pANCA pattern has been observed in a significant percentage of patients with ulcerative colitis, primary sclerosing cholangitis and autoimmune hepatitis. Performed By: #### L 500.3400, L501.2450, L100.0100, L500.2500 #### [facility] [address] [place], [address] Cytoplasmic Ab <1:20 Normal Neg:<1:20 [facility] Comment on above: Performed By: #### L 500.3400, L501.2450, L100.0100, L500.2500 #### [facility] [address] [place], [address] Perinuclear Ab. <1:20 Normal Neg:<1:20 [facility] Comment on above: Result Comment: The presence of positive fluorescence exhibiting P-ANCA or C-ANCA patterns alone is not specific for the diagnosis of Salbador's Granulomatosis (WG) or microscopic polyangiitis. Decisions about treatment should not be based solely on ANCA IFA results. The [employer] ANCA [employer] Consensus recommends follow up testing of positive sera with both NH- 3 and MPO-ANCA enzyme immunoassays. As many as 5% serum samples are positive only by EIA. Ref. AM J Clin Pathol 1999;111:507-513. Performed By: #### L 500.3400, L501.2450, L100.0100, L500.2500 #### [facility] [address] [place], [address] CMV Acute Antibody IgMon CMV Ab, IgM < 30.0 Normal 0.0-29.9 [facility] [facility] Comment on above: Result Comment: Nega tive <30.0 Equivocal 30.0 - 34.9 Positive >34.9 A positive result is generally indicative of acute infection, reactivation or persistent IgM production. Performed at: [facility] [address] [id number] Senior Analyst Programmer: Brett Jasso PhD, Phone: [phone] Performed at: [facility] [address] [id number] Senior Analyst Programmer: Renée Centeno MD, Phone: [phone] Performed By: #### L 500.3400, L501.2450, L100.0100, L500.2500 #### [facility] [address] [place], [address] Celiac AB,Comprehensiveon 05 -02-2025 IMMUNOGLOB A QN TNP Normal [facility] Comment on above: Performed By: #### L 500.3400, L501.2450, L100.0100, L500.2500 #### [facility] [address] [place], [place], [id number] EBV Acute Prof IgG / IgMon 0 5- EB Ab VCA, IgG 599.0 U/mL High 0.0-17.9 [facility] Comment on above: Result Comment: Nega tive <18.0 Equivocal 18.0 - 21.9 Positive >21.9 Performed By: #### L 500.3400, L501.2450, L100.0100, L500.2500 #### [facility] [address] [place], [place], [id number] EBV Ab VCA, IgM < 36.0 Normal 0.0-35.9 [facility] Comment on above: Result Comment: Nega tive <36.0 Equivocal 36.0 - 43.9 Positive >43.9 Performed By: #### L 500.3400, L501.2450, L100.0100, L500.2500 #### [facility] [address] [place], [place], [id number] EBV NuAg Ab,IgG 564.0 U/mL High 0.0-17.9 [facility] Comment on above: Result Comment: Nega tive <18.0 Equivocal 18.0 - 21.9 Positive >21.9 Performed By: #### L 500.3400, L501.2450, L100.0100, L500.2500 #### [facility] [address] [place], [address] INTERPRETATION Comment Normal . [facility] Comment on above: Result Comment: [...] #### L 500.3400, L501.2450, L100.0100, L500.2500 #### [facility] [address] [place], [address] Hepatitis Panel Acuteon -0 HEP B CORE,IgM Negative Normal Negative [facility] Comment on above: Performed By: #### L 400.7600, L400.0001 #### [facility] [address] [place], [address] HEP B SURF AG Negative Normal Negative [facility] Comment on above: Performed By: #### L 400.7600, L400.0001 #### [facility] [address] [place], [address] HEP C VIRUS AB Non-Reactive Normal Non Reactive [facility] Comment on above: Performed By: #### L 400.7600, L400.0001 #### [facility] [address] [place], [address] HEPATITIS A-IgM Negative Normal Negative [facility] Comment on above: Result Comment: A ne gative anti-HAV IgM result suggests no recent or current HAV infection. Performed By: #### L 400.7600, L400.0001 #### [facility] [address] [place], [address] FABRIZIO + Protein Elect, Serumon 07-09-2024 IMMUNOGLOB G QN TNP Normal [facility] Comment on above: Performed By: #### L 500.3400, L501.2450, L100.0100, L500.2500 #### [facility] [address] [place], [address] IgG Subclasseson 07-09-2024 IgG, SUBCLASS 1 430 mg/dL Normal 248-810 [facility] Comment on above: Performed By: #### L 500.3400, L501.2450, L100.0100, L500.2500 #### [facility] [address] [place], [address] IgG, SUBCLASS 2 178 mg/dL Normal 130-555 [facility] Comment on above: Performed By: #### L 500.3400, L501.2450, L100.0100, L500.2500 #### [facility] [address] [place], [address] IgG, SUBCLASS 3 56 mg/dL Normal 15-102 [facility] Comment on above: Performed By: #### L 500.3400, L501.2450, L100.0100, L500.2500 #### [facility] [address] [place], [address] IgG, SUBCLASS 4 7 mg/dL Normal 2-96 [facility] Comment on above: Performed By: #### L 500.3400, L501.2450, L100.0100, L500.2500 #### [facility] [address] [place], [address] IGG,QUANT 787 mg/dL Normal 586-1602 [facility] Comment on above: Performed By: #### L 500.3400, L501.2450, L100.0100, L500.2500 #### [facility] [address] [place], [address] Immunoglobulins G/A/M/Cristopher IMMUNOGLOB E QN 5 IU/mL Low 6-495 [facility] Comment on above: Performed By: #### L 500.3400, L501.2450, L100.0100, L500.2500 #### [facility] [address] [place], [address] L2100.0000on 07-09-2024 ACCA 24 units Normal 0-90 [facility] Comment on above: Result Comment: Nega tive: <80 Equivocal: 80-90 Positive: >90 Performed By: #### L 400.7600, L400.0001 #### [facility] [address] [place], [address] ALCA 10 units Normal 0-60 [facility] Comment on above: Result Comment: Nega tive:<55 Equivocal: 55-60 Positive: >60 Performed By: #### L 400.7600, L400.0001 #### [facility] [address] [place], [address] AMCA 18 units Normal 0-100 [facility] Comment on above: Result Comment: Nega tive: <90 Equivocal: 90-100 Positive: >100 This test was developed and its performance characteristics determined by [employer]. It has not been cleared or approved by the Food and Drug Administration. The FDA has determined that such clearance or approval is not necessary. Performed By: #### L 400.7600, L400.0001 #### [facility] [address] [facility] [address] Atypical pANCA Negative Normal Negative [facility] Comment on above: Performed By: #### L 400.7600, L400.0001 #### [facility] [address] [facility] [address] COMMENT Comment Normal . [facility] Comment on above: Result Comment: Mandy sarah is not suggestive of Inflammatory Bowel Disease Performed By: #### L 400.7600, L400.0001 #### [facility] [address] [facility] [address] Result Comment: Not infected with HCV unless early or acute infection is suspected (which may be delayed in an immunocompromised individual), or other evidence exists to indicate HCV infection. Jesika 12 units Normal 0-50 [facility] Comment on above: Result Comment: Nega tive: <45 Equivocal: 45-50 Positive: >50 Performed By: #### L 400.7600, L400.0001 #### [facility] [address] [place], [address] Liver Profileon 07-07-2024 ALB Normal 3.5-5.0 [facility] Comment on above: Result Comment: Canc elled via OM: Order cancelled - Patient discharged Performed By: #### L 500.3400 #### [facility] [address] [place], [address] ALK PHOS Normal 35-104 [facility] Comment on above: Result Comment: Canc elled via OM: Order cancelled - Patient discharged Performed By: #### L 500.3400 #### [facility] [address] [place], [address] ALT Normal <=34 [facility] Comment on above: Result Comment: Canc elled via OM: Order cancelled - Patient discharged Performed By: #### L 500.3400 #### [facility] [address] [place], [address] AST Normal <=31 [facility] Comment on above: Result Comment: Canc elled via OM: Order cancelled - Patient discharged Performed By: #### L 500.3400 #### [facility] [address] [place], [address] D BILI Normal 0.00-0.30 [facility] Comment on above: Result Comment: Canc elled via OM: Order cancelled - Patient discharged Performed By: #### L 500.3400 #### [facility] [address] [place], [address] T BILI Normal 0.00-1.30 [facility] Comment on above: Result Comment: Canc elled via OM: Order cancelled - Patient discharged Performed By: #### L 500.3400 #### [facility] [address] [place], [address] T PROT Normal 5.9-8.4 [facility] Comment on above: Result Comment: Canc elled via OM: Order cancelled - Patient discharged Performed By: #### L 348.4242 #### [facility] [address] [place], [place], [address] Anti-Mitochondrial ABon 04-2 ANTIMITOCHON AB <20.0 Normal 0.0-20.0 [facility] Comment on above: Result Comment: Nega tive 0.0 - 20.0 Equivocal 20.1 - 24.9 Positive >24.9 Mitochondrial (M2) Antibodies are found in 90-96% of patients with primary biliary cirrhosis. Performed at: [address] [id number] Senior Analyst Programmer: Brett Jasso PhD, Phone: [phone] Performed By: #### L 633.6493, L400.0001 #### [facility] [address] [place], [address] Anti-Smooth Muscle ABSon ANTISMOOTH MUSC 11 Units Normal 0-19 [facility] Comment on above: Result Comment: Nega tive 0 - 19 Weak positive 20 - 30 Moderate to strong positive >30 Actin Antibodies are found in 52-85% of patients with autoimmune hepatitis or chronic active hepatitis and in 22% of patients with primary biliary cirrhosis. Performed at: [address] [id number] Senior Analyst Programmer: Brett Jasso PhD, Phone: [phone] Performed By: #### L 947.1428, L400.0001 #### [facility] [address] [place], [place], [id number] L501.5101on 07-06-2024 GGTP 213 IU/L Abnormal 0-60 [facility] Comment on above: Result Comment: Perf ormed at: [address] [id number] Senior Analyst Programmer: Brett Jasso PhD, Phone: [phone] Performed By: #### L 501.5101 #### [facility] [address] [place], [address] Liver Profileon 07-06-2024 ALB Normal 3.5-5.0 [facility] Comment on above: Result Comment: Canc elled via OM: Order cancelled - Patient discharged Performed By: #### L 500.3400, L501.2450, L100.0100, L500.2500 #### [facility] [address] [place], [address] ALK PHOS Normal 35-104 [facility] Comment on above: Result Comment: Canc elled via OM: Order cancelled - Patient discharged Performed By: #### L 500.3400, L501.2450, L100.0100, L500.2500 #### [facility] [address] [place], [address] ALT Normal <=34 [facility] Comment on above: Result Comment: Canc elled via OM: Order cancelled - Patient discharged Performed By: #### L 500.3400, L501.2450, L100.0100, L500.2500 #### [facility] [address] [place], [address] AST Normal <=31 [facility] Comment on above: Result Comment: Canc elled via OM: Order cancelled - Patient discharged Performed By: #### L 500.3400, L501.2450, L100.0100, L500.2500 #### [facility] [address] [place], [address] D BILI Normal 0.00-0.30 [facility] Comment on above: Result Comment: Canc elled via OM: Order cancelled - Patient discharged Performed By: #### L 500.3400, L501.2450, L100.0100, L500.2500 #### [facility] [address] [place], [address] T BILI Normal 0.00-1.30 [facility] Comment on above: Result Comment: Canc elled via OM: Order cancelled - Patient discharged Performed By: #### L 500.3400, L501.2450, L100.0100, L500.2500 #### [facility] [address] [place], [address] T PROT Normal 5.9-8.4 [facility] Comment on above: Result Comment: Canc elled via OM: Order cancelled - Patient discharged Performed By: #### L 500.3400, L501.2450, L100.0100, L500.2500 #### [facility] [address] [place], [address] Abdomen/Pelvis W IV Cont ONL Yon 07-05-2024 Abdomen/Pelvis W IV Cont ONLY [facility] [address] [place] [address] Abdomen/Pelvis W IV Cont ONLY MR#: [id number] Acct: [id number] Name: LIUDMILA WORLEY Rep #: [id number] : 1985 F 38 From: Bernard Souza MD PCP: Dr. Mena Vernon MD Status: ADM IN Study: Abdomen/Pelvis W IV Cont ONLY Date of Exam: Exam# [id number] Ordering Dr: Sergio Mcfarland DO PROCEDURE: ABDOMEN/PELVIS [...] quadrant and pelvic free fluid. Reading Location: [id number] CC: Dr. Mena Vernon MD; Sergio Mcfarland DO [facility] Shift Lead: Signed Normal [facility] Absolute lymphocyte countOrd ered By: Juan Hdez on 07-05-2024 Lymphocytes Auto (Unsp spec) [#/Vol] 1.15 10*3/uL 0.83-4.51 [facility] Absolute neutrophil countOrd ered By: Juan Hdez on 07-05-2024 Neutrophils (Bld) [#/Vol] 2.8 10*3/uL 2.0-7.7 [facility] Albumin Elph [Mass/Vol]Order ed By: Sergio Mcfarland on 07-05-2024 Albumin [Mass/Vol] 3.6 g/dL 2.9-4.4 [facility] Anion gap in Serum or Plasma Ordered By: Juan Hdez on 07-05-2024 Anion gap [Moles/Vol] 8 mmol/L 5-15 [facility] Automated lymphocyte count a s percentage of total leukocytesOrdered By: Juan Hdez on 07-05-2024 Lymphocytes/100 WBC Auto (Unsp spec) 25.2 % 19-41 [facility] BUN/creatinine ratioOrdered By: Juan Hdez on 07-05-2024 Urea nitrogen/Creatinine [Mass ratio] 7.2 mg/mg Low 10-20 [facility] Basic Metabolic Profile (BMP )on 07-05-2024 BUN/CRE 7.2 RATIO Low 10-20 [facility] Comment on above: Performed By: #### L 500.3400, L501.2450, L100.0100, L500.2500 #### [facility] [address] [place], [address] Calcium [Mass/Vol] 8.3 mg/dL Normal 7.6-11.0 [facility] Comment on above: Performed By: #### L 500.3400, L501.2450, L100.0100, L500.2500 #### [facility] [address] [place], [address] Chloride [Moles/Vol] 107 mmol/L Normal 98-108 [facility] Comment on above: Performed By: #### L 500.3400, L501.2450, L100.0100, L500.2500 #### [facility] [address] [place], [address] CO2 [Moles/Vol] 25.2 mmol/L Normal 21.0-32.0 [facility] Comment on above: Performed By: #### L 500.3400, L501.2450, L100.0100, L500.2500 #### [facility] [address] [place], [address] Creatinine [Mass/Vol] 0.51 mg/dL Low 0.70-1.20 [facility] Comment on above: Performed By: #### L 500.3400, L501.2450, L100.0100, L500.2500 #### [facility] [address] [place], [address] ECRCL 166.71 ml/min Normal 50-250 [facility] Comment on above: Performed By: #### L 500.3400, L501.2450, L100.0100, L500.2500 #### [facility] [address] [place], [address] GAP 8 Normal 5-15 [facility] Comment on above: Performed By: #### L 500.3400, L501.2450, L100.0100, L500.2500 #### [facility] [address] [place], [address] GFR/1.73 sq M.predicted among non-blacks MDRD (S/P/Bld) [Vol rate/Area] 124 mL/min/{1.73_m2} Normal >60 [facility] Comment on above: Result Comment: mL/m in/1.73m2 CKD-EPI Creatinine Equation (2020) Performed By: #### L 500.3400, L501.2450, L100.0100, L500.2500 #### [facility] [address] [place], [address] Glucose [Mass/Vol] 91 mg/dL Normal 70-99 [facility] Comment on above: Performed By: #### L 500.3400, L501.2450, L100.0100, L500.2500 #### [facility] [address] [place], [address] Potassium [Moles/Vol] 3.8 mmol/L Normal 3.3-5.1 [facility] Comment on above: Performed By: #### L 500.3400, L501.2450, L100.0100, L500.2500 #### [facility] [address] [place], [address] Sodium [Moles/Vol] 140 mmol/L Normal 133-145 [facility] Comment on above: Performed By: #### L 500.3400, L501.2450, L100.0100, L500.2500 #### [facility] [address] [place], [address] Urea nitrogen [Mass/Vol] 4 mg/dL Normal 4-19 [facility] Comment on above: Performed By: #### L 500.3400, L501.2450, L100.0100, L500.2500 #### [facility] [address] [place], [address] Basophil percentageOrdered B y: Juan Hdez on 07-05-2024 Basophils/100 WBC (Bld) 0.9 % 0-1 [facility] Bilirubin directOrdered By: Juan Hdez on 07-05-2024 Bilirubin.direct [Mass/Vol] 0.70 mg/dL High 0.00-0.3 0 [facility] Bilirubin, totalOrdered By: Juan Hdez on 07-05-2024 Bilirubin [Mass/Vol] 1.21 mg/dL 0.00-1.30 [facility] CBC W/Diff, Automatedon 06-09 Absolute Lymph 1.15 X10 3/uL Normal 0.83-4.51 [facility] Comment on above: Performed By: #### L 500.3400, L501.2450, L100.0100, L500.2500 #### [facility] [address] [place], [address] Absolute Neut 2.8 X10 3/uL Normal 2.0-7.7 [facility] Comment on above: Performed By: #### L 500.3400, L501.2450, L100.0100, L500.2500 #### [facility] [address] [place], [address] Basophils/100 WBC (Bld) 0.9 % Normal 0-1 [facility] Comment on above: Performed By: #### L 500.3400, L501.2450, L100.0100, L500.2500 #### [facility] [address] [place], [address] Eosinophils/100 WBC (Bld) 3.5 % Normal 0-5 [facility] Comment on above: Performed By: #### L 500.3400, L501.2450, L100.0100, L500.2500 #### [facility] [address] [place], [address] Erythrocyte distribution width (RBC) [Ratio] 16.0 % High 11.6-14.6 [facility] Comment on above: Performed By: #### L 500.3400, L501.2450, L100.0100, L500.2500 #### [facility] [address] [place], [address] Hematocrit (Bld) [Volume fraction] 33.4 % Low 37-47 [facility] Comment on above: Performed By: #### L 500.3400, L501.2450, L100.0100, L500.2500 #### [facility] [address] [place], [address] Hemoglobin (Bld) [Mass/Vol] 10.9 g/dL Low 12.0-15. 0 [facility] Comment on above: Performed By: #### L 500.3400, L501.2450, L100.0100, L500.2500 #### [facility] [address] [place], [address] IG% 0.200 Normal 0.0-0.9 [facility] Comment on above: Result Comment: IG% - Immature Granulocytes (promyelocytes, myelocytes and metamyelocytes) > 1% indicates that a LEFT SHIFT is Present. Performed By: #### L 500.3400, L501.2450, L100.0100, L500.2500 #### [facility] [address] [place], [address] Lymphocytes/100 WBC (Bld) 25.2 % Normal 19-41 [facility] Comment on above: Performed By: #### L 500.3400, L501.2450, L100.0100, L500.2500 #### [facility] [address] [place], [address] MCH (RBC) [Entitic mass] 25.6 pg Low 27.0-32.0 [facility] Comment on above: Performed By: #### L 500.3400, L501.2450, L100.0100, L500.2500 #### [facility] [address] [place], [address] MCHC (RBC) [Mass/Vol] 32.6 g/dL Normal 32-36 [facility] Comment on above: Performed By: #### L 500.3400, L501.2450, L100.0100, L500.2500 #### [facility] [address] [place], [address] MCV (RBC) [Entitic vol] 78.4 fL Low 81-99 [facility] Comment on above: Performed By: #### L 500.3400, L501.2450, L100.0100, L500.2500 #### [facility] [address] [place], [address] Monocytes/100 WBC (Bld) 9.9 % Normal 0-10 [facility] Comment on above: Performed By: #### L 500.3400, L501.2450, L100.0100, L500.2500 #### [facility] [address] [place], [address] Neutrophils/100 WBC (Bld) 60.3 % Normal 47-70 [facility] Comment on above: Performed By: #### L 500.3400, L501.2450, L100.0100, L500.2500 #### [facility] [address] [place], [address] Nucleated RBC (Bld) [#/Vol] 0 10*3/uL Normal 0-5 [facility] Comment on above: Performed By: #### L 500.3400, L501.2450, L100.0100, L500.2500 #### [facility] [address] [place], [address] Platelet mean volume (Bld) [Entitic vol] 10.0 fL Normal 6.2-12.0 [facility] Comment on above: Performed By: #### L 500.3400, L501.2450, L100.0100, L500.2500 #### [facility] [address] [place], [address] Platelets (Bld) [#/Vol] 282 10*3/uL Normal 150-450 [facility] Comment on above: Performed By: #### L 500.3400, L501.2450, L100.0100, L500.2500 #### [facility] [address] [place], [address] RBC (Bld) [#/Vol] 4.26 10*6/uL Normal 4.2-5.4 [facility] Comment on above: Performed By: #### L 500.3400, L501.2450, L100.0100, L500.2500 #### [facility] [address] [place], [address] RDW SD 46.1 fl High 35.1-43.9 [facility] Comment on above: Performed By: #### L 500.3400, L501.2450, L100.0100, L500.2500 #### [facility] [address] [place], [address] WBC (Bld) [#/Vol] 4.6 10*3/uL Normal 4.4-11.0 [facility] Comment on above: Performed By: #### L 500.3400, L501.2450, L100.0100, L500.2500 #### [facility] [address] [place], [address] CRPon 07-05-2024 C-REACTIVE PROT 6.50 mg/L High 0.0-3.0 [facility] Comment on above: Performed By: #### L 400.7600, L400.0001 #### [facility] [address] [place], [address] CRP [Mass/Vol]Ordered By: Ra nila Mcfarland on 07-05-2024 C-Reactive Protein Extended Range 6.50 mg/L High 0.0-3.0 [facility] Calculated total iron bindin g capacityOrdered By: Sergio Mcfarland on 07-05-2024 Total Iron Binding Capacity 352 ug/dL 250-450 [facility] Carbon dioxide, total [Moles /volume] in Central venous bloodOrdered By: Juan Hdez on 07-05-2024 CO2 [Moles/Vol] 25.2 mmol/L 21.0-32.0 [facility] Chitobioside IgA antibody as sayOrdered By: Sergio Mcfarland on 07-05-2024 Chitobioside IgA IA Qn 24 units 0-90 [facility] Comment on above: Negative: <80 Equivo abelardo: 80-90 Positive: >90 Chloride assayOrdered By: Brian Hdez on 07-05-2024 Chloride [Moles/Vol] 107 mmol/L 98-108 [facility] Consultation - Surgicalon Consultation - Surgical [facility] Medical Records Department [address] [place] [address] Consultation - Surgical 07/05/24 0836 MR#: [id number] Acct: [id number] Name: LIUDMILA WORLEY Rep #: [id number] : 1985 38 From: Veronica Austin MD PCP: Dr. Mena Vernon MD Status:ADM IN Location: [place] [address] Assessment Plan Assessment/Plan (1) Cholelithiasis: (2) Elevated [...] be covering tomorrow. Veronica Austin M.D. Pager: [phone] [facility] [address] [place] [address], [facility], [address] [place] [id number] Office: [phone] HPI Consult Data Date of Consult: 07/05/24 [...] phos still remained mildly elevated at 191. [facility] Medical History Wears glasses Depression Anxiety Alcohol [...] HEENT normocepha (more content not included)... Normal [facility] Discharge Instructionon 06-09 Discharge Instruction [facility] Medical Records Department [address] [place] [address] Instructions for Home/Discharge Instructions 07/05/24 1332 MR#: [id number] Acct: [id number] Name: LIUDMILA WORLEY Rep #: [id number] : 1985 38 From: Tristen [place] DO [...] Liver Profile (Routine) Timeframe: 5 Days Facility: [facility] - Location: Laboratory Ordered By: [...] MD; Dr. Veronica Austin MD Signed Normal [facility] Eosinophil percentageOrdered By: Juan Hdez on 07-05-2024 Eosinophils/100 WBC (Bld) 3.5 % 0-5 [facility] Erythrocyte Sed Rateon 07-05 SED RATE 9 mm/hr Normal 0-30 [facility] Comment on above: Performed By: #### L 400.7600, L400.0001 #### [facility] [address] [place], [address] Erythrocyte distribution wid th (RBC) [Ratio]Ordered By: Juan Hdez on 07-05-2024 Erythrocyte distribution width (RBC) [Entitic vol] 46.1 fL High 35.1-43.9 [facility] Erythrocyte distribution wid th ratioOrdered By: Juan Hdez on 07-05-2024 Erythrocyte distribution width (RBC) [Ratio] 16.0 % High 11.6-14.6 [facility] Erythrocyte distribution wid th standard deviationOrdered By: Juan Hdez on 07-05-2024 Erythrocyte distribution width (RBC) [Ratio] 46.1 fl High 35.1-43.9 [facility] Erythrocyte sedimentation ra teOrdered By: Sergio Mcfarland on 07-05-2024 ESR (Bld) [Velocity] 9 mm/h 0-30 [facility] Estimation of creatinine jermain aranceOrdered By: Juan Hdez on 07-05-2024 Estimated Creatinine Clearance Calc 166.71 ml/min 50-250 [facility] Ferritinon 07-05-2024 Ferritin [Mass/Vol] 28 ng/mL Normal 22-378 [facility] Comment on above: Performed By: #### L 400.7600, L400.0001 #### [facility] [address] [place], [address] Ferritin [Mass/Vol] 23 ng/mL Normal 22-378 [facility] Comment on above: Performed By: #### L 500.3400, L501.2450, L100.0100, L500.2500 #### [facility] [address] [facility] [place], [address] GFR/1.73 sq M.predicted shala g non-blacks MDRD (S/P/Bld) [Vol rate/Area]Ordered By: Juan Hdez on 07-05-2024 Estimated GFR (MDRD) Non-Af Amer 124 >60 [facility] Comment on above: mL/min/1.73m2 CKD-EP I Creatinine Equation (2020) Glomerular filtration rate ( GFR) estimation/1.73 sq m using serum, plasma, or whole bOrdered By: Juan Hdez on 07-05-2024 GFR/1.73 sq M.predicted among non-blacks MDRD (S/P/Bld) [Vol rate/Area] 124 mL/min/{1.73_m2} >60 [facility] Comment on above: mL/min/1.73m2 CKD-EP I Creatinine Equation (2020) Hematocrit Auto (Bld) [Volum e fraction]Ordered By: Juan Hdez on 07-05-2024 Hematocrit (Bld) [Volume fraction] 33.4 % Low 37-47 [facility] Hemoglobin measurementOrdere d By: Juan Hdez on 07-05-2024 Hemoglobin (Bld) [Mass/Vol] 10.9 g/dL Low 12.0-15. 0 [facility] IgEOrdered By: Sergio valenzuela on 07-05-2024 IgE 5 IU/mL Low 6-495 [facility] Immature granulocytes/100 WB C Auto (Bld)Ordered By: Juan Hdez on 07-05-2024 Immature granulocytes/100 WBC (Bld) 0.200 % 0.0-0.9 [facility] Comment on above: IG% - Immature Granu locytes (promyelocytes, myelocytes and metamyelocytes) > 1% indicates that a LEFT SHIFT is Present. Interpretation of serum or p lasma protein pattern by immunofixation (narrative resultOrdered By: Sergio Mcfarland on 07-05-2024 Protein Fractions Immunofixation Kiran [Interp] Not Observed g/dL Not Observed [facility] Iron (Unsp spec) [Mass/Mass] Ordered By: Sergio Mcfarland on 07-05-2024 Iron [Mass/Vol] 258 ug/dL High 50-170 [facility] Iron measurement (mass/mass) Ordered By: Sergio Mcfarland on 07-05-2024 Iron (Unsp spec) [Mass/Mass] 258 ug/dL High 50-170 [facility] Iron saturation [Mass fracti on]Ordered By: Sergio Mcfarland on 07-05-2024 Iron Saturation 73.3 % High 13-59 [facility] Comment on above: Previous reported re sult: 73.0 %Edited by: BRENNA on 07/05/24:1215 AMENDED REPORT 07/05/24 1215 IRON SATURATION previously reported as: 73.0 H % Iron+Iron Binding Capacityon 07-05-2024 Iron [Mass/Vol] 258 ug/dL High 50-170 [facility] Comment on above: Performed By: #### L 400.7600, L400.0001 #### [facility] [address] [place], [address] UIBC 94 ug/dL Low 228-428 [facility] Comment on above: Performed By: #### L 400.7600, L400.0001 #### [facility] [address] [place], [address] Iron [Mass/Vol] 209 ug/dL High 50-170 [facility] Comment on above: Performed By: #### L 500.3400, L501.2450, L100.0100, L500.2500 #### [facility] [address] [place], [address] IRON SATURATION 66.0 High 13-59 [facility] Comment on above: Performed By: #### L 500.3400, L501.2450, L100.0100, L500.2500 #### [facility] [address] [place], [address] TIBC 316 ug/dL Normal 250-450 [facility] Comment on above: Performed By: #### L 500.3400, L501.2450, L100.0100, L500.2500 #### [facility] [address] [place], [address] UIBC 107 ug/dL Low 228-428 [facility] Comment on above: Performed By: #### L 500.3400, L501.2450, L100.0100, L500.2500 #### [facility] [address] [place], [address] Laboratory - Chemistry and C hemistry - challengeOrdered By: Juan Hdez on 07-05-2024 AST [Catalytic activity/Vol] 442 U/L High <32 [facility] - Miscellaneous t estsOrdered By: Sergio Mcfarland on 07-05-2024 Laboratory comment Kiran (Report) Comment . [facility] Comment on above: Pattern is not sugge stive of Inflammatory Bowel Disease Laminaribioside carbohydrate IgG antibody assayOrdered By: Sergio Mcfarland on 07-05-2024 Laminaribioside IgG IA Qn 10 units 0-60 [facility] Comment on above: Negative:<55 Equivoc al: 55-60 Positive: >60 Liver Profileon 07-05-2024 ALT [Catalytic activity/Vol] 726 U/L High <=34 [facility] Comment on above: Result Comment: AMENDED REPORT 07/05/24 0532 ALT previously reported as: 585 H U/L Performed By: #### L 500.3400, L501.2450, L100.0100, L500.2500 #### [facility] [address] [place], [address] Lymphocytes Auto (Unsp spec) [#/Vol]Ordered By: Juan Hdez on 07-05-2024 Lymphocytes (Bld) [#/Vol] 1.15 10*3/uL 0.83-4.5 1 [facility] Lymphocytes/100 WBC Auto (Un sp spec)Ordered By: Juan Hdez on 07-05-2024 Lymphocytes/100 WBC (Bld) 25.2 % 19-41 [facility] MCV (mean corpuscular volume ) determinationOrdered By: Juan Hdez on 07-05-2024 MCV (RBC) [Entitic vol] 78.4 fL Low 81-99 [facility] Mean corpuscular hemoglobin (MCH) determinationOrdered By: Juan Hdez on 07-05-2024 MCH (RBC) [Entitic mass] 25.6 pg Low 27.0-32.0 [facility] Mean corpuscular hemoglobin concentration (MCHC) determinationOrdered By: Juan Hdez on 07-05-2024 MCHC (RBC) [Mass/Vol] 32.6 g/dL 32-36 [facility] Mean platelet volume determi nationOrdered By: Juan Hdez on 07-05-2024 Platelet mean volume (Bld) [Entitic vol] 10.0 fL 6.2-12.0 [facility] Monocyte percentageOrdered B y: Juan Hdez on 07-05-2024 Monocytes/100 WBC (Bld) 9.9 % 0-10 [facility] Neutrophil percentageOrdered By: Juan Hdez on 07-05-2024 Neutrophils/100 WBC (Bld) 60.3 % 47-70 [facility] No Panel InformationOrdered By: Sergio Mcfarland on 07-05-2024 Addendum Document Comment . [facility] Comment on above: Protein electrophore sis scan will follow via computer,mail, or pop singer delivery. Hepatitis C Antibody Comment Comment . [facility] Comment on above: Not infected with HC V unless early or acute infection issuspected (which may be delayed in an immunocompromisedindividual), or other evidence exists to indicate HCVinfection. Tissue Transglutaminase IgG Ab 3 U/mL 0-5 [facility] Comment on above: Negative 0 - 5 Weak Positive 6 - 9 Positive >9 Unsaturated Iron Binding Capacity 94 ug/dL Low 228-428 [facility] Nucleated red blood cell per centageOrdered By: Juan Hdez on 07-05-2024 Nucleated RBC/100 WBC (Bld) [Ratio] 0 % 0-5 [facility] Platelet countOrdered By: Brian Hdez on 07-05-2024 Platelets (Bld) [#/Vol] 282 10*3/uL 150-450 [facility] Potassium (Unsp spec) [Mass/ Vol]Ordered By: Juan Hdez on 07-05-2024 Potassium [Moles/Vol] 3.8 mmol/L 3.3-5.1 [facility] Potassium measurement (mass/ volume)Ordered By: Juan Hdez on 07-05-2024 Potassium (Unsp spec) [Mass/Vol] 3.8 mmol/L 3.3-5.1 [facility] ,Urineon 07-05-2024 Beta HCG ( test) Ql (U) Negative Normal [facility] Comment on above: Order Comment: 411 Result Comment: Very dilute urine specimens, as indicated by a low specific gravity, may not contain patient care representative levels of hCG. If is still suspected, a first morning urine specimen should be collected 48 hours later and tested. Performed By: #### L 500.3400, L501.2450, L100.0100, L500.2500 #### [facility] [place], [address] RBC Auto (Bld) [#/Vol]Ordere d By: Juan Hdez on 07-05-2024 RBC (Bld) [#/Vol] 4.26 10*6/uL 4.2-5.4 [facility] Serum Eboni Alcala virus cap harsha IgM antibody assay (units/volume)Ordered By: Sergio Mcfarland on 07-05-2024 EBV capsid IgM Qn (S) [arb'U]/mL 0.0-35.9 [facility] Comment on above: Negative <36.0 Equiv ocal 36.0 - 43.9 Positive >43.9 Serum Eboni Alcala virus nuc lear IgG antibody assay (units/volume)Ordered By: Sergio Mcfarland on 07-05-2024 EBV nuclear IgG Qn (S) 564.0 U/mL High 0.0-17.9 [facility] Comment on above: Negative <18.0 Equiv ocal 18.0 - 21.9 Positive >21.9 Serum IgG subclass 1 measure ment (mass/volume)Ordered By: Sergio Mcfarland on 07-05-2024 IgG subclass 1 (S) [Mass/Vol] 430 mg/dL 248-810 [facility] Serum IgG subclass 2 measure ment (mass/volume)Ordered By: Sergio Mcfarland on 07-05-2024 IgG subclass 2 (S) [Mass/Vol] 178 mg/dL 130-555 [facility] Serum IgG subclass 3 measure ment (mass/volume)Ordered By: Sergio Mcfarland on 07-05-2024 IgG subclass 3 (S) [Mass/Vol] 56 mg/dL 15-102 [facility] Serum classic neutrophil cyt oplasmic antibody assay (units/volume)Ordered By: Sergio Mcfarland on 07-05-2024 Neutrophil cytoplasmic Ab.classic Qn (S) <1:20 titer Neg:<1:20 [facility] Serum creatinine measurement (mass/volume)Ordered By: Juan Hdez on 07-05-2024 Creatinine [Mass/Vol] 0.51 mg/dL Low 0.70-1.20 [facility] Serum globulin measurementOr dered By: Juan Hdez on 07-05-2024 Globulin (S) [Mass/Vol] 2.5 g/dL 2.2-4.2 [facility] Serum globulin measurement ( mass/volume)Ordered By: Sergio Mcfarland on 07-05-2024 Globulin (S) [Mass/Vol] 2.5 g/dL 2.2-3.9 [facility] Serum glucose measurement (m ass/volume)Ordered By: Juan Hdez on 07-05-2024 Glucose [Mass/Vol] 91 mg/dL 70-99 [facility] Serum mitochondria antibody detectionOrdered By: Sergio Mcfarland on 07-05-2024 Mitochondria Ab Ql (S) <20.0 Units 0.0-20.0 [facility] Comment on above: Negative 0.0 - 20.0 Equivocal 20.1 - 24.9 Positive >24.9Mitochondrial (M2) Antibodies are found in 90-96% ofpatients with primary biliary cirrhosis.Performed at: [facility] [id number] Director: Brett Jasso PhD, Phone: [phone] Serum or plasma C reactive p rotein measurement (mass/volume)Ordered By: Sergio Mcfarland on 07-05-2024 CRP [Mass/Vol] 6.50 mg/L High 0.0-3.0 [facility] Serum or plasma IgA measurem ent (mass/volume)Ordered By: Sergio Mcfarland on 07-05-2024 IgA [Mass/Vol] 106 mg/dL 87-352 [facility] Serum or plasma IgG measurem ent (mass/volume)Ordered By: Sergio Mcfarland on 07-05-2024 IgG [Mass/Vol] 787 mg/dL 586-1602 [facility] IgG [Mass/Vol] TNP [facility] Comment on above: Test not performed Serum or plasma actin IgG an tibody assay (units/volume)Ordered By: Sergio Mcfarland on 07-05-2024 Actin IgG Qn 11 Units 0-19 [facility] Comment on above: Negative 0 - 19 Weak positive 20 - 30 Moderate to strong positive >30 Actin Antibodies are found in 52-85% of patients with autoimmune hepatitis or chronic active hepatitis and in 22% of patients with primary biliary cirrhosis.Performed at: [facility] [id number] Director: Brett Jasso PhD, Phone: [phone] Serum or plasma alanine wilde otransferase (ALT) measurementOrdered By: Juan Hdez on 07-05-2024 ALT [Catalytic activity/Vol] 726 U/L High <35 [facility] Comment on above: Previous reported re sult: 585 U/LEdited by: AUTOINSandoval on 07/05/24:0532 AMENDED REPORT 07/05/24531 ALT previously reported as: 585 H U/L Serum or plasma albumin brian urement (mass/volume)Ordered By: Juan Hdze on 07-05-2024 Albumin [Mass/Vol] 3.6 g/dL 3.5-5.0 [facility] Serum or plasma alkaline eduardo sphatase measurementOrdered By: Juan Hdez on 07-05-2024 ALP [Catalytic activity/Vol] 191 U/L High 35-104 [facility] Serum or plasma alpha 1 glob ulin measurement by electrophoresis (mass/volume)Ordered By: Sergio Mcfarland on 07-05-2024 Alpha 1 globulin Elph [Mass/Vol] 0.2 g/dL 0.0-0.4 [facility] Alpha 1 globulin Elph [Mass/Vol] 0.7 g/dL 0.4-1.0 [facility] Serum or plasma beta globuli n measurement by electrophoresis (mass/volume)Ordered By: Sergio Mcfarland on 07-05-2024 Beta globulin Elph [Mass/Vol] 0.8 g/dL 0.7-1.3 [facility] Serum or plasma calcium brian urement (mass/volume)Ordered By: Juan Hdez on 07-05-2024 Calcium [Mass/Vol] 8.3 mg/dL 7.6-11.0 [facility] Serum or plasma cytomegalovi angel (CMV) IgM antibody assay (units/volume)Ordered By: Sergio Mcfarland on 07-05-2024 CMV IgM Qn < 30.0 AU/mL 0.0-29.9 [facility] Comment on above: Negative <30.0 Equiv ocal 30.0 - 34.9 Positive >34.9A positive result is generally indicative of acuteinfection, reactivation or persistent IgM production.Performed at: - [address] [id number] Director: Brett Jasso PhD, Phone: [phone] at: [facility] [id number] Director: Renée Centeno MD, Phone: [phone] Serum or plasma ferritin kenji surement (mass/volume)Ordered By: Sergio Mcfarland on 07-05-2024 Ferritin [Mass/Vol] 28 ng/mL 22-378 [facility] Serum or plasma gamma globul in measurement by electrophoresis (mass/volume)Ordered By: Sergio Mcfarland on 07-05-2024 Gamma globulin Elph [Mass/Vol] 0.8 g/dL 0.4-1.8 [facility] Serum or plasma hepatitis B virus surface antigen detection by immunoassayOrdered By: Sergio Mcfarland on 07-05-2024 HBV surface Ag IA Ql Negative Negative [facility] Serum or plasma immunoelectr ophoresis interpretation (nominal result)Ordered By: Sergio Mcfarland on 07-05-2024 Interpretation IEP [Interp] Comment . [facility] Comment on above: No monoclonality det ected. Serum or plasma iron saturat ion measurement (mass fraction)Ordered By: Sergio Mcfarland on 07-05-2024 Iron saturation [Mass fraction] 73.3 % High 13-59 [facility] Comment on above: Previous reported re sult: 73.0 %Edited by: AUTOINS on 07/05/24:1215 AMENDED REPORT 07/05/24 1215 IRON SATURATION previously reported as: 73.0 H % Serum or plasma mannobioside IgG antibody assay by immunoassay (units/volume)Ordered By: Sergio Mfcarland on 07-05-2024 Mannobioside IgG IA Qn 18 units 0-100 [facility] Comment on above: Negative: <90 Equivo abelardo: 90-100 Positive: >100 This test was developed and its performance characteristics determined by [employer]. It has not been cleared or approved by the Food and Drug Administration. The FDA has determined that such clearance or approval is not necessary. Serum or plasma protein brian urement (mass/volume)Ordered By: Sergio Mcfarland on 07-05-2024 Protein [Mass/Vol] 6.1 g/dL 6.0-8.5 [facility] Serum or plasma urea nitroge n measurement (mass/volume)Ordered By: Juan Hdez on 07-05-2024 Urea nitrogen [Mass/Vol] 4 mg/dL 4-19 [facility] Serum perinuclear neutrophil cytoplasmic antibody titer by immunofluorescenceOrdered By: Sergio Mcfarland on 07-05-2024 Neutrophil cytoplasmic Ab.perinuclear IF (S) [Titer] <1:20 titer Neg:<1:20 [facility] Comment on above: The presence of posi tive fluorescence exhibiting P-ANCA orC-ANCA patterns alone is not specific for the diagnosis ofWegener's Granulomatosis (WG) or microscopic polyangiitis.Decisions about treatment should not be based solely onANCA IFA results. The [employer] ANCA [employer] Consensusrecommends follow up testing of positive sera with both NH-3 and MPO-ANCA enzyme immunoassays. As many as 5% serumsamples are positive only by EIA. Ref. AM J Clin Fqftrz7602;111:507-513. Serum tissue transglutaminas e (tTG) IgA antibody assay (units/volume)Ordered By: Sergio Mcfarland on 07-05-2024 tTG IgA Qn (S) <2 U/mL 0-3 [facility] Comment on above: Negative 0 - 3 Weak Positive 4 - 10 Positive >10 Tissue Transglutaminase (tTG) has been identified as the endomysial antigen. Studies have demonstr- ated that endomysial IgA antibodies have over 99% specificity for gluten sensitive enteropathy. Sodium levelOrdered By: Mami Hdez on 07-05-2024 Sodium [Moles/Vol] 140 mmol/L 133-145 [facility] Total proteinOrdered By: Izabel Hdez on 07-05-2024 Protein [Mass/Vol] 6.2 g/dL 5.9-8.4 [facility] Urine testOrdered By: Helder Geiger on 07-05-2024 HCG ( test) Ql (U) Negative [facility] Comment on above: Very dilute urine sp ecimens, as indicated by a low specificgravity, may not contain patient care representative levels of hCG. If is still suspected, a first morning urinespecimen should be collected 48 hours later and tested. White blood cell (WBC) count Ordered By: Juan Hdez on 07-05-2024 WBC (Bld) [#/Vol] 4.6 10*3/uL 4.4-11.0 [facility] 12 Lead EKGon 07-04-2024 12 Lead EKG [facility] [address] [place] [address] 12 Lead EKG 07/04/24 0942 MR#: [id number] Acct: [id number] Name: LIUDMILA WORLEY Rep #: [id number] : 1985 38 From: Lizzeth Castro MD Attending Dr: Dr. Tristen [place] DO Status : DIS IN Ordering Dr: Gavin Alford DO Date: 07/04/24 Location: [facility] [place] Sex: F C Admitted: 07/04/24 Test Reason : GENRAL Blood Pressure : */* mmHG Vent. Rate : 78 BPM Atrial Rate : 78 BPM P-R Int : 160 ms QRS Dur : 102 ms QT Int : 382 ms P-R-T Axes : 42 66 27 degrees QTcB Int : 435 ms Normal sinus rhythm Normal ECG Confirmed by ELADIO CASTAÑEDA, JOSH ([id number]), makeup editor VERNELL MONTILLA ([id number]) on 07/07/2024 11:52:56 AM Referred By: Confirmed By: JOSH CASTRO MD 07/07/24 1152 Date Lizzeth Castro MD CC: Dr. Tristen [place] DO; Dr. Mena Vernon MD; Dr. Gavin Alford DO Signed Normal [facility] Absolute neutrophil countOrd ered By: Harshil Sanches on 07-04-2024 Neutrophils (Bld) [#/Vol] 6.0 10*3/uL 2.0-7.7 [facility] Activated partial thrombopla stin time (aPTT) in platelet poor plasma by coagulation aOrdered By: Gavin Alford on 07-04-2024 aPTT Coag (PPP) [Time] 23.9 s Low 24.1-36.2 [facility] Anion gap in Serum or Plasma Ordered By: Harshil Sanches on 07-04-2024 Anion gap [Moles/Vol] 13 mmol/L 07-22 [facility] BUN/creatinine ratioOrdered By: Harshil Sanches on 07-04-2024 Urea nitrogen/Creatinine [Mass ratio] 15.0 mg/mg 12-27 [facility] Basic Metabolic Profile (BMP )on 07-04-2024 BUN/CRE 15.0 RATIO Normal 12-27 [facility] Comment on above: Performed By: #### L 500.3400, L501.2450, L100.0100, L500.2500 #### [facility] [address] [place], [address] Calcium [Mass/Vol] 9.3 mg/dL Normal 7.6-11.0 [facility] Comment on above: Performed By: #### L 500.3400, L501.2450, L100.0100, L500.2500 #### [facility] [address] [place], [address] Chloride [Moles/Vol] 102 mmol/L Normal 98-108 [facility] Comment on above: Performed By: #### L 500.3400, L501.2450, L100.0100, L500.2500 #### [facility] [address] [place], [address] CO2 [Moles/Vol] 23.0 mmol/L Normal 21.0-32.0 [facility] Comment on above: Performed By: #### L 500.3400, L501.2450, L100.0100, L500.2500 #### [facility] [address] [place], [address] Creatinine [Mass/Vol] 0.56 mg/dL Low 0.70-1.20 [facility] Comment on above: Performed By: #### L 500.3400, L501.2450, L100.0100, L500.2500 #### [facility] [address] [place], [address] ECRCL 152.99 ml/min Normal 50-250 [facility] Comment on above: Performed By: #### L 500.3400, L501.2450, L100.0100, L500.2500 #### [facility] [address] [place], [address] GAP 13 Normal 5-15 [facility] Comment on above: Performed By: #### L 500.3400, L501.2450, L100.0100, L500.2500 #### [facility] [address] [place], [address] GFR/1.73 sq M.predicted among non-blacks MDRD (S/P/Bld) [Vol rate/Area] 121 mL/min/{1.73_m2} Normal >60 [facility] Comment on above: Result Comment: mL/m in/1.73m2 CKD-EPI Creatinine Equation (2020) Performed By: #### L 500.3400, L501.2450, L100.0100, L500.2500 #### [facility] [address] [place], [address] Glucose [Mass/Vol] 105 mg/dL High 70-99 [facility] Comment on above: Performed By: #### L 500.3400, L501.2450, L100.0100, L500.2500 #### [facility] [address] [place], [address] Potassium [Moles/Vol] 4.0 mmol/L Normal 3.3-5.1 [facility] Comment on above: Performed By: #### L 500.3400, L501.2450, L100.0100, L500.2500 #### [facility] [address] [place], [address] Sodium [Moles/Vol] 138 mmol/L Normal 133-145 [facility] Comment on above: Performed By: #### L 500.3400, L501.2450, L100.0100, L500.2500 #### [facility] [address] [place], [address] Urea nitrogen [Mass/Vol] 8 mg/dL Normal 4-19 [facility] Comment on above: Performed By: #### L 500.3400, L501.2450, L100.0100, L500.2500 #### [facility] [address] [place], [address] Basophil percentageOrdered B y: Harshil Sanches on 07-04-2024 Basophils/100 WBC (Bld) 0.3 % 0-1 [facility] Bilirubin Test strip Ql (U)O rdered By: Harshil Sanches on 07-04-2024 Bilirubin Ql (U) Negative Negative [facility] Bilirubin directOrdered By: Harshil Sanches on 07-04-2024 Bilirubin.direct [Mass/Vol] 0.54 mg/dL High 0.00-0.3 0 [facility] Bilirubin, totalOrdered By: Harshil Sanches on 07-04-2024 Bilirubin [Mass/Vol] 0.80 mg/dL 0.00-1.30 [facility] CBC W/Diff, Automatedon 06-09 Absolute Lymph 0.96 X10 3/uL Normal 0.83-4.51 [facility] Comment on above: Performed By: #### L 500.3400, L501.2450, L100.0100, L500.2500 #### [facility] [address] [place], [address] Absolute Neut 6.0 X10 3/uL Normal 2.0-7.7 [facility] Comment on above: Performed By: #### L 500.3400, L501.2450, L100.0100, L500.2500 #### [facility] [address] [place], [address] Basophils/100 WBC (Bld) 0.3 % Normal 0-1 [facility] Comment on above: Performed By: #### L 500.3400, L501.2450, L100.0100, L500.2500 #### [facility] [address] [place], [address] Eosinophils/100 WBC (Bld) 0.4 % Normal 0-5 [facility] Comment on above: Performed By: #### L 500.3400, L501.2450, L100.0100, L500.2500 #### [facility] [address] [place], [address] Erythrocyte distribution width (RBC) [Ratio] 15.9 % High 11.6-14.6 [facility] Comment on above: Performed By: #### L 500.3400, L501.2450, L100.0100, L500.2500 #### [facility] [address] [place], [address] Hematocrit (Bld) [Volume fraction] 36.0 % Low 37-47 [facility] Comment on above: Performed By: #### L 500.3400, L501.2450, L100.0100, L500.2500 #### [facility] [address] [place], [address] Hemoglobin (Bld) [Mass/Vol] 11.9 g/dL Low 12.0-15. 0 [facility] Comment on above: Performed By: #### L 500.3400, L501.2450, L100.0100, L500.2500 #### [facility] [address] [place], [address] IG% 0.400 Normal 0.0-0.9 [facility] Comment on above: Result Comment: IG% - Immature Granulocytes (promyelocytes, myelocytes and metamyelocytes) > 1% indicates that a LEFT SHIFT is Present. Performed By: #### L 500.3400, L501.2450, L100.0100, L500.2500 #### [facility] [address] [place], [address] Lymphocytes/100 WBC (Bld) 12.7 % Low 19-41 [facility] Comment on above: Performed By: #### L 500.3400, L501.2450, L100.0100, L500.2500 #### [facility] [address] [place], [address] MCH (RBC) [Entitic mass] 25.6 pg Low 27.0-32.0 [facility] Comment on above: Performed By: #### L 500.3400, L501.2450, L100.0100, L500.2500 #### [facility] [address] [place], [address] MCHC (RBC) [Mass/Vol] 33.1 g/dL Normal 32-36 [facility] Comment on above: Performed By: #### L 500.3400, L501.2450, L100.0100, L500.2500 #### [facility] [address] [place], [address] MCV (RBC) [Entitic vol] 77.4 fL Low 81-99 [facility] Comment on above: Performed By: #### L 500.3400, L501.2450, L100.0100, L500.2500 #### [facility] [address] [place], [address] Monocytes/100 WBC (Bld) 6.9 % Normal 0-10 [facility] Comment on above: Performed By: #### L 500.3400, L501.2450, L100.0100, L500.2500 #### [facility] [address] [place], [address] Neutrophils/100 WBC (Bld) 79.3 % High 47-70 [facility] Comment on above: Performed By: #### L 500.3400, L501.2450, L100.0100, L500.2500 #### [facility] [address] [place], [address] Nucleated RBC (Bld) [#/Vol] 0 10*3/uL Normal 0-5 [facility] Comment on above: Performed By: #### L 500.3400, L501.2450, L100.0100, L500.2500 #### [facility] [address] [place], [address] Platelet mean volume (Bld) [Entitic vol] 10.0 fL Normal 6.2-12.0 [facility] Comment on above: Performed By: #### L 500.3400, L501.2450, L100.0100, L500.2500 #### [facility] [address] [place], [address] Platelets (Bld) [#/Vol] 312 10*3/uL Normal 150-450 [facility] Comment on above: Performed By: #### L 500.3400, L501.2450, L100.0100, L500.2500 #### [facility] [address] [place], [address] RBC (Bld) [#/Vol] 4.65 10*6/uL Normal 4.2-5.4 [facility] Comment on above: Performed By: #### L 500.3400, L501.2450, L100.0100, L500.2500 #### [facility] [address] [place], [address] RDW SD 44.5 fl High 35.1-43.9 [facility] Comment on above: Performed By: #### L 500.3400, L501.2450, L100.0100, L500.2500 #### [facility] [address] [place], [address] WBC (Bld) [#/Vol] 7.6 10*3/uL Normal 4.4-11.0 [facility] Comment on above: Performed By: #### L 500.3400, L501.2450, L100.0100, L500.2500 #### [facility] [address] [place], [address] Carbon dioxide, total [Moles /volume] in Central venous bloodOrdered By: Harshil Sanches on 07-04-2024 CO2 [Moles/Vol] 23.0 mmol/L 21.0-32.0 [facility] Chest 1 View (Portable)on Chest 1 View (Portable) [facility] Imaging Services [address] [place] [address] Chest 1 View (Portable) MR#: [id number] Acct: [id number] Name: LIUDMILA WORLEY Rep #: [id number] : 1985 F 38 From: Alon sylvester MD PCP: Dr. Mena Vernon MD Status: REG ER Study: Chest 1 View (Portable) Date of Exam: 07/04/24 Exam# [id number] Ordering Dr: Gavin Alford DO PROCEDURE: CHEST 1 VIEW (PORTABLE) 07/04/2024 REASON FOR EXAM: PREOP TECHNIQUE: Frontal view of the chest. COMPARISON: None FINDINGS: Hardware: None Heart: Cardiac and mediastinal contours are stable. Lungs: The lungs are clear. Bones: The bones are unremarkable. Other: RAD/Chest 1 View (Portable) IMPRESSION: No Acute Findings. Reading Location: [facility] CC: Dr. Mena Vernon MD; Dr. Gavin Alford DO [facility] Shift Lead: Signed Normal [facility] Chloride assayOrdered By: Nancy Sanches on 07-04-2024 Chloride [Moles/Vol] 102 mmol/L 98-108 [facility] Emergency Department Summary on 07-04-2024 Emergency Department Summary [facility] Medical Records Department [address] [place] [address] Emergency Department Summary 07/04/24 MR#: [id number] Acct: [id number] Name: LIUDMILA WORLEY Rep #: [id number] : 1985 38 From: Harshil Sanches DO PCP: Dr. Mena Vernon MD Status:ADM IN Location: [facility] [id number] Gavin Alford DO on [...] flare October of last year diagnosed at [facility]. She is told to follow-up with her PCP she has not had any issues until yesterday evening she ate nodule cheese for lunch nothing for dinner. I spoke with on-call surgeon Dr. Austin, reviewed her imagings and labs along with labs from [facility]. Reported her AST was 100 at that [...] masses, no (more content not included)... Normal [facility] Eosinophil percentageOrdered By: Harshil Sanches on 07-04-2024 Eosinophils/100 WBC (Bld) 0.4 % 0-5 [facility] Epithelial cells.squamous LM Ql (Urine sed)Ordered By: Harshil Sanches on 07-04-2024 Epithelial cells.squamous LM.HPF (Urine sed) [#/Area] 0 /[HPF] 5-10 [facility] Erythrocyte distribution wid th (RBC) [Ratio]Ordered By: Harshil Sanches on 07-04-2024 Erythrocyte distribution width (RBC) [Entitic vol] 44.5 fL High 35.1-43.9 [facility] Erythrocyte distribution wid th ratioOrdered By: Harshil Sanches on 07-04-2024 Erythrocyte distribution width (RBC) [Ratio] 15.9 % High 11.6-14.6 [facility] Estimation of creatinine jermain aranceOrdered By: Harshil Sanches on 07-04-2024 Estimated Creatinine Clearance Calc 152.99 ml/min 50-250 [facility] GFR/1.73 sq M.predicted shala g non-blacks MDRD (S/P/Bld) [Vol rate/Area]Ordered By: Harshil Sanches on 07-04-2024 Estimated GFR (MDRD) Non-Af Amer 121 >60 [facility] Comment on above: mL/min/1.73m2 CKD-EP I Creatinine Equation (2020) Gallbladderon 07-04-2024 Gallbladder [facility] Imaging Services [address] [place] [address] Gallbladder MR#: [id number] Acct: [id number] Name: LIUDMILA WORLEY Rep #: [id number] : 1985 F 38 From: Lexus thomas MD PCP: Dr. Mena Vernon MD Status: REG ER Study: Gallbladder Date of Exam: 07/04/24 Exam# [id number] Ordering Dr: Harshil Sanches DO PROCEDURE: GALLBLADDER [...] sonographic evidence of acute cholecystitis. [facility] CC: Dr. Mena Vernon MD; Dr. Harshil Sanches DO [facility] Shift Lead: Signed Normal [facility] Gamma glutamyl transferase ( GGT) measurementOrdered By: Juan Hdez on 07-04-2024 Amylase [Catalytic activity/Vol] 213 U/L High 0-60 [facility] Comment on above: Performed at: [address] [id number] Director: Brett Jasso PhD, Phone: [phone] Glucose Ql (U)Ordered By: Nancy casianobetty Sanches on 07-04-2024 Urine Glucose (UA) Normal mg/dl Normal [facility] H AND P Exam - Hospitaliston 07-04-2024 H&P Exam - Hospitalist [facility] Medical Records Department [address] [place] [address] H P Exam - Hospitalist 07/04/24 1011 MR#: [id number] Acct: [id number] Name: LIUDMILA WORLEY Rep #: [id number] : 1985 38 From: Juan Hdez MD PCP: Dr. Mena Vernon MD Status:ADM IN Location: [facility] [place] [facility] [id number] HPI - General General Date of Admission: [...] pain October 2023 and she went to [facility] where she had ultrasound. She was told that she has a gallbladder stone and probably she has elevated transaminases as per Dr. Austin at that time. I tried to log into [employer] to check it but could not. She had right upper quadrant sonogram in ED shows cholelithiasis without features of acute cholecystitis. ED physician consulted and she wanted to admit under medicine with GI consult. [facility] Medical History Wears glasses Depression Anxiety Alcohol [...] Status: Nor (more content not included)... Normal [facility] Hematocrit Auto (Bld) [Volum e fraction]Ordered By: Harshil Sanches on 07-04-2024 Hematocrit (Bld) [Volume fraction] 36.0 % Low 37-47 [facility] Hemoglobin measurementOrdere d By: Harshil Sanches on 07-04-2024 Hemoglobin (Bld) [Mass/Vol] 11.9 g/dL Low 12.0-15. 0 [facility] Immature granulocytes/100 WB C Auto (Bld)Ordered By: Harhsil Sanches on 07-04-2024 Immature granulocytes/100 WBC (Bld) 0.400 % 0.0-0.9 [facility] Comment on above: IG% - Immature Granu locytes (promyelocytes, myelocytes and metamyelocytes) > 1% indicates that a LEFT SHIFT is Present. International normalized rat io (INR) calculationOrdered By: Gavin Alford on 07-04-2024 INR Coag (Bld) [Relative time] 1.0 {INR} [facility] Ketones Test strip Ql (U)Ord ered By: Harshil Sanches on 07-04-2024 Ketones Ql (U) Negative Negative [facility] Laboratory - Chemistry and C hemistry - challengeOrdered By: Harshil Sanches on 07-04-2024 AST [Catalytic activity/Vol] 594 U/L High <32 [facility] Lipaseon 07-04-2024 Lipase [Catalytic activity/Vol] 56 U/L Normal 13-75 [facility] Comment on above: Result Comment: Ronen baeza note: LIPASE revised reference range effective 22. New Lipase methodology. Expected to produce lower values than the previous assay method. NEW Reference Range: 13 - 75 U/L Performed By: #### L 500.3400, L501.2450, L100.0100, L500.2500 #### [facility] [address] [place], [address] Lipase measurementOrdered By : Harshil Sanches on 07-04-2024 Lipase [Catalytic activity/Vol] 56 U/L 13-75 [facility] Comment on above: Please note:LIPASE r evised reference range effective 22. New Lipase methodology. Expected to produce lower values than the previous assay method. NEW Reference Range: 13 - 75 U/L Liver Profileon 07-04-2024 Albumin [Mass/Vol] 4.2 g/dL Normal 3.5-5.0 [facility] Comment on above: Performed By: #### L 500.3400, L501.2450, L100.0100, L500.2500 #### [facility] [address] [place], [address] ALK PHOS 135 U/L High 35-104 [facility] Comment on above: Performed By: #### L 500.3400, L501.2450, L100.0100, L500.2500 #### [facility] [address] [place], [address] ALT [Catalytic activity/Vol] 352 U/L High <=34 [facility] Comment on above: Performed By: #### L 500.3400, L501.2450, L100.0100, L500.2500 #### [facility] [address] [place], [address] AST [Catalytic activity/Vol] 594 U/L High <=31 [facility] Comment on above: Performed By: #### L 500.3400, L501.2450, L100.0100, L500.2500 #### [facility] [address] [place], [address] Bilirubin [Mass/Vol] 0.80 mg/dL Normal 0.00-1.30 [facility] Comment on above: Performed By: #### L 500.3400, L501.2450, L100.0100, L500.2500 #### [facility] [address] [place], [address] Bilirubin.direct [Mass/Vol] 0.54 mg/dL High 0.00-0.3 0 [facility] Comment on above: Performed By: #### L 500.3400, L501.2450, L100.0100, L500.2500 #### [facility] [address] [place], [address] Globulin (S) [Mass/Vol] 2.4 g/dL Normal 2.2-4.2 [facility] Comment on above: Performed By: #### L 500.3400, L501.2450, L100.0100, L500.2500 #### [facility] [address] [place], [address] T PROT 6.6 g/dL Normal 5.9-8.4 [facility] Comment on above: Performed By: #### L 500.3400, L501.2450, L100.0100, L500.2500 #### [facility] [address] [place], [address] Lymphocytes Auto (Unsp spec) [#/Vol]Ordered By: Harshil Sanches on 07-04-2024 Lymphocytes (Bld) [#/Vol] 0.96 10*3/uL 0.83-4.5 1 [facility] Lymphocytes/100 WBC Auto (Un sp spec)Ordered By: Harshil Sanches on 07-04-2024 Lymphocytes/100 WBC (Bld) 12.7 % Low 19-41 [facility] MCV (mean corpuscular volume ) determinationOrdered By: Harshil Sanches on 07-04-2024 MCV (RBC) [Entitic vol] 77.4 fL Low 81-99 [facility] Magnesiumon 07-04-2024 Magnesium [Mass/Vol] 1.9 mg/dL Normal 1.5-2.2 [facility] Comment on above: Performed By: #### L 501.5200 #### [facility] [address] [place], [address] Magnesium (Unsp spec) [Mass/ Vol]Ordered By: Juan Hdez on 07-04-2024 Magnesium [Mass/Vol] 1.9 mg/dL 1.5-2.2 [facility] Magnesium measurement (mass/ volume)Ordered By: Juan Hdez on 07-04-2024 Magnesium (Unsp spec) [Mass/Vol] 1.9 mg/dL 1.5-2.2 [facility] Mean corpuscular hemoglobin (MCH) determinationOrdered By: Harshil Sanches on 07-04-2024 MCH (RBC) [Entitic mass] 25.6 pg Low 27.0-32.0 [facility] Mean corpuscular hemoglobin concentration (MCHC) determinationOrdered By: Harshil Sanches on 07-04-2024 MCHC (RBC) [Mass/Vol] 33.1 g/dL 32-36 [facility] Mean platelet volume determi nationOrdered By: Harshil Sanches on 07-04-2024 Platelet mean volume (Bld) [Entitic vol] 10.0 fL 6.2-12.0 [facility] Microscopic analysis of urin e for red blood cells (RBC)Ordered By: Harshil Sanches on 07-04-2024 Microscopic analysis of urine for red blood cells (RBC) 0 SEEN /hpf 0-5 [facility] Urine RBC 0 SEEN /hpf 0-5 [facility] Monocyte percentageOrdered B y: Harshil Sanches on 07-04-2024 Monocytes/100 WBC (Bld) 6.9 % 0-10 [facility] Mucus LM Ql (Urine sed)Order ed By: Harshil Sanches on 07-04-2024 Mucus Ql (Urine sed) 0 SEEN /hpf [facility] Neutrophil percentageOrdered By: Harshil Sanches on 07-04-2024 Neutrophils/100 WBC (Bld) 79.3 % High 47-70 [facility] Nitrite Test strip Ql (U)Ord ered By: Harshil Sanches on 07-04-2024 Nitrite Ql (U) Negative Negative [facility] Nucleated red blood cell per centageOrdered By: Harshil Sanches on 07-04-2024 Nucleated RBC/100 WBC (Bld) [Ratio] 0 % 0-5 [facility] Partial Thromboplast Timeon 07-04-2024 aPTT Coag (Bld) [Time] 23.9 s Low 24.1-36.2 [facility] Comment on above: Performed By: #### L 500.3400, L501.2450, L100.0100, L500.2500 #### [facility] [address] [place], [place], [address] Platelet countOrdered By: Nancy Sanches on 07-04-2024 Platelets (Bld) [#/Vol] 312 10*3/uL 150-450 [facility] Potassium (Unsp spec) [Mass/ Vol]Ordered By: Harshil Sanches on 07-04-2024 Potassium [Moles/Vol] 4.0 mmol/L 3.3-5.1 [facility] ,Urineon 07-04-2024 Beta HCG ( test) Ql (U) Negative Normal [facility] Comment on above: Result Comment: Very dilute urine specimens, as indicated by a low specific gravity, may not contain patient care representative levels of hCG. If is still suspected, a first morning urine specimen should be collected 48 hours later and tested. Performed By: #### L 400.7600, L400.0001 #### [facility] [address] [place], [address] Protein Test strip Ql (U)Ord ered By: Harshil Sanches on 07-04-2024 Protein Ql (U) 30 mg/dl High Negative [facility] Prothrombin Time w/INRon INR Coag (PPP) [Relative time] 1.0 {INR} Normal [facility] Comment on above: Performed By: #### L 500.3400, L501.2450, L100.0100, L500.2500 #### [facility] [address] [place], [address] Prothrombin timeOrdered By: Gavin Alford on 07-04-2024 PT Coag (PPP) [Time] 13.5 s Normal 11.7-14.9 [facility] Comment on above: Performed By: #### L 500.3400, L501.2450, L100.0100, L500.2500 #### [facility] [address] [place], [address] RBC Auto (Bld) [#/Vol]Ordere d By: Harshil Sanches on 07-04-2024 RBC (Bld) [#/Vol] 4.65 10*6/uL 4.2-5.4 [facility] Serum creatinine measurement (mass/volume)Ordered By: Harshil Sanches on 07-04-2024 Creatinine [Mass/Vol] 0.56 mg/dL Low 0.70-1.20 [facility] Serum globulin measurementOr dered By: Harshil Sanches on 07-04-2024 Globulin (S) [Mass/Vol] 2.4 g/dL 2.2-4.2 [facility] Serum glucose measurement (m ass/volume)Ordered By: Harshil Sanches on 07-04-2024 Glucose [Mass/Vol] 105 mg/dL High 70-99 [facility] Serum or plasma alanine wilde otransferase (ALT) measurementOrdered By: Harshil Sanches on 07-04-2024 ALT [Catalytic activity/Vol] 352 U/L High <35 [facility] Serum or plasma albumin brian urement (mass/volume)Ordered By: Harshil Sanches on 07-04-2024 Albumin [Mass/Vol] 4.2 g/dL 3.5-5.0 [facility] Serum or plasma alkaline eduardo sphatase measurementOrdered By: Harshil Sanches on 07-04-2024 ALP [Catalytic activity/Vol] 135 U/L High 35-104 [facility] Serum or plasma calcium brian urement (mass/volume)Ordered By: Harshil Sanches on 07-04-2024 Calcium [Mass/Vol] 9.3 mg/dL 7.6-11.0 [facility] Serum or plasma urea nitroge n measurement (mass/volume)Ordered By: Harshil Sanches on 07-04-2024 Urea nitrogen [Mass/Vol] 8 mg/dL 4-19 [facility] [facility] Sodium levelOrdered By: Chandan Sanches on 07-04-2024 Sodium [Moles/Vol] 138 mmol/L 133-145 [facility] Squamous epithelial cells de tection in urine sediment by light microscopyOrdered By: Harshil Sanches on 07-04-2024 Epithelial cells.squamous LM Ql (Urine sed) 0-5 SEEN /hpf 5-10 [facility] Total proteinOrdered By: Maynor Sanches on 07-04-2024 Protein [Mass/Vol] 6.6 g/dL 5.9-8.4 [facility] Type AND Screenon 07-04-2024 ABO and Rh group Nom (Bld) Blood group A B Rh(D) positive Normal [facility] Comment on above: Order Comment: S Performed By: #### L 500.3400, L501.2450, L100.0100, L500.2500 #### [facility] [address] [place], [address] Urinalysis, Completeon 07-04 EPI,SQUAMOUS 0-5 SEEN Normal 5-10 [facility] Comment on above: Order Comment: COLLE CTOR TO SPECIFY Performed By: #### L 400.7600, L400.0001 #### [facility] [address] [place], [address] WBC 0-5 SEEN Normal 0-5 [facility] Comment on above: Order Comment: COLLE CTOR TO SPECIFY Performed By: #### L 400.7600, L400.0001 #### [facility] [address] [place], [address] BACTERIA 0 SEEN Normal None Seen [facility] Comment on above: Order Comment: MILTON CTOR TO SPECIFY Performed By: #### L 400.7600, L400.0001 #### [facility] [address] [place], [address] Mucus Ql (Urine sed) 0 SEEN Normal [facility] Comment on above: Order Comment: MILTON CTOR TO SPECIFY Performed By: #### L 400.7600, L400.0001 #### [facility] [address] [place], [address] RBC 0 SEEN Normal 0-5 [facility] Comment on above: Order Comment: MILTON CTOR TO SPECIFY Performed By: #### L 400.7600, L400.0001 #### [facility] [address] [place], [address] Urine blood detectionOrdered By: Harshil Sanches on 07-04-2024 Urine Occult Blood Negative Negative [facility] Urine clarityOrdered By: Maynor Sanches on 07-04-2024 Clarity (U) Clear Clear [facility] Urine color determinationOrd ered By: Harshil Sanches on 07-04-2024 Color (U) Yellow Yellow [facility] Urine glucose detectionOrder ed By: Harshil Sanches on 07-04-2024 Glucose Ql (U) Normal mg/dl Normal [facility] Urine leukocyte esterase det ection by dipstickOrdered By: Harshil Sanches on 07-04-2024 Leukocyte esterase Test strip Ql (U) Negative Negative [facility] Urine pHOrdered By: Harshil means on 07-04-2024 pH (U) 7.0 [pH] 5.0 - 8.0 [facility] Urine testOrdered By: Harshil Sanches on 07-04-2024 HCG ( test) Ql (U) Negative [facility] Comment on above: Very dilute urine sp ecimens, as indicated by a low specificgravity, may not contain patient care representative levels of hCG. If is still suspected, a first morning urinespecimen should be collected 48 hours later and tested. Urine sediment bacteria coun t by microscopy (number/high power field)Ordered By: Harshil Sanches on 07-04-2024 Bacteria LM.HPF (Urine sed) [#/Area] 0 /[HPF] None Seen [facility] Urine specific gravity measu rementOrdered By: Harshil Sanches on 07-04-2024 Specific gravity (U) [Rel density] 1.010 1.002-1.03 0 [facility] Urine urobilinogen measureme ntOrdered By: Harshil Sanches on 07-04-2024 Urobilinogen Ql (U) Normal mg/dl Normal [facility] Urobilinogen Ql (U)Ordered B y: Harshil Sanches on 07-04-2024 Urine Urobilinogen Normal mg/dl Normal [facility] White blood cell (WBC) count Ordered By: Harshil Sanches on 07-04-2024 WBC (Bld) [#/Vol] 7.6 10*3/uL 4.4-11.0 [facility] White blood cell countOrdere d By: Harshil Sanches on 07-04-2024 Urine WBC 0-5 SEEN /hpf 0-5 [facility] White blood cell count 0-5 SEEN /hpf 0-5 [facility] aPTT Coag (PPP) [Time]Ordere d By: Gavin Alford on 07-04-2024 aPTT Coag (Bld) [Time] 23.9 s Low 24.1-36.2 [facility] CNPNon 05-17-2024 [facility] Telephone (INTMWS) LIUDMILA WORLEY ([id number]) 1985 F Date Time Provider Department 05/17/24 [...] Adderall Provider: Dr Vernon Insurance Company Name: [employer] Phone number: [phone] Patient ID number: [id number] Pharmacy Name: [facility] Telephone number: [phone] Leora Gambino MA 05/17/2024 1:35 PM Signed Tried to complete through covermymeds but would not process. Called [facility] at [phone] and completed with rep for adderall 30 [...] MA 05/24/2024 11:13 AM Signed Called [facility] [phone] and did not receive chart notes. 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] 01/08/2023 Encounter Status:Closed by ELYLA HUSSEIN on 05/25/24 Normal [facility] CBC panel Auto (Bld)on 04-19 Erythrocyte distribution width (RBC) [Ratio] 14.8 % Normal 11.5-15.0 [facility] Comment on above: Order Comment: Speci men Type: BLOOD SPECIMEN Ordering Facility: [facility] Address: [address] [place] [address] Performed By: #### 2 4331-1, 2276-4, 14331-8, 88464-6 #### [facility] CLIA [id number] [address] [place] [address] [place] Hematocrit (Bld) [Volume fraction] 37.3 % Normal 36.0-46.0 [facility] Comment on above: Order Comment: Speci men Type: BLOOD SPECIMEN Ordering Facility: [facility] Address: [address] [place] [address] Performed By: #### 2 4331-1, 2276-4, 15031-9, 28182-0 #### [facility] CLIA [id number] [address] [place] [address] [place] Hemoglobin (Bld) [Mass/Vol] 11.7 g/dL Normal 11.5-15. 5 [facility] Comment on above: Order Comment: Speci men Type: BLOOD SPECIMEN Ordering Facility: [facility] Address: [address] [place] [address] Performed By: #### 2 4331-1, 2276-4, 22115-7, 87643-5 #### [facility] CLIA [id number] [address] [place] [address] [place] MCH (RBC) [Entitic mass] 24.5 pg Low 26.0-34.0 [facility] Comment on above: Order Comment: Speci men Type: BLOOD SPECIMEN Ordering Facility: [facility] Address: [address] [place] [address] Performed By: #### 2 4331-1, 2276-4, 99492-3, 39548-9 #### [facility] CLIA [id number] [address] [place] [address] [place] MCHC (RBC) [Mass/Vol] 31.4 g/dL Normal 30.5-36.[address] [facility] Comment on above: Order Comment: Speci men Type: BLOOD SPECIMEN Ordering Facility: [facility] Address: [address] [place] [address] Performed By: #### 2 4331-1, 2276-4, 99082-7, 08390-7 #### [facility] CLIA [id number] [address] [place] [address] [place] MCV (RBC) [Entitic vol] 78.0 fL Low 80.0-100.0 [facility] Comment on above: Order Comment: Speci men Type: BLOOD SPECIMEN Ordering Facility: [facility] Address: [address] [place] [address] Performed By: #### 2 4331-1, 2276-4, 64451-7, 47043-0 #### [facility] CLIA [id number] [address] [place] [address] [place] Nucleated RBC (Bld) [#/Vol] 10*3/uL Normal <0.01 [facility] Comment on above: Order Comment: Speci men Type: BLOOD SPECIMEN Ordering Facility: [facility] Address: [address] [place] [address] Performed By: #### 2 4331-1, 2276-4, 46783-4, 65679-7 #### [facility] CLIA [id number] [address] [place] [address] [place] Platelet mean volume (Bld) [Entitic vol] 9.7 fL Normal 9.0-12.7 [facility] Comment on above: Order Comment: Speci men Type: BLOOD SPECIMEN Ordering Facility: [facility] Address: [address] [place] [address] Performed By: #### 2 4331-1, 2276-4, 10771-3, 02706-9 #### [facility] CLIA [id number] [address] [place] [address] [place] Platelets (Bld) [#/Vol] 378 10*3/uL Normal 150-400 [facility] Comment on above: Order Comment: Speci men Type: BLOOD SPECIMEN Ordering Facility: [facility] Address: [address] [place] [address] Performed By: #### 2 4331-1, 2276-4, 87685-5, 78418-4 #### [facility] CLIA [id number] [address] [place] [address] [place] RBC (Bld) [#/Vol] 4.78 10*6/uL Normal 3.90-5.20 [facility] Comment on above: Order Comment: Speci men Type: BLOOD SPECIMEN Ordering Facility: [facility] Address: [address] [place] [address] Performed By: #### 2 4331-1, 2276-4, 71114-0, 15783-1 #### [facility] CLIA [id number] [address] [place] [address] [place] WBC (Bld) [#/Vol] 5.07 10*3/uL Normal 3.70-11.00 [facility] Comment on above: Order Comment: Speci men Type: BLOOD SPECIMEN Ordering Facility: [facility] Address: [address] [place] [address] Performed By: #### 2 4331-1, 2276-4, 68371-8, 52921-3 #### [facility] CLIA [id number] [address] [place] [address] [place] CNOVon 04-19-2024 CNOV Office Visit (INTMWS ) LIUDMILA WORLEY ([id number]) 1985 F Date Time Provider Department 04/19/24 8:40 AM MENA VERNON INTMWS During your visit today, we recorded the following information about you: Pulse Respiration Blood pressure Weight 97/minute 16/minute 128/84 98 kg Mena Vernon MD 04/19/2024 9:45 AM Signed This note was created using [employer]. Subjective Liudmila Worley is a 38 year [...] trying to make healthier choices, such as [place] yogurt and fruit parfaits. She also reports [...] due to (more content not included)... Normal [facility] Comprehensive metabolic 2000 panelon 04-19-2024 Albumin [Mass/Vol] 4.4 g/dL Normal 3.9-4.9 [facility] Comment on above: Order Comment: Speci men Type: BLOOD SPECIMEN Ordering Facility: [facility] Address: [address] [place], [place] [address] Performed By: #### 2 4331-1, 2276-4, 49139-5, 73345-3 #### [facility] CLIA [id number] [address] [place] [address] [place] ALP [Catalytic activity/Vol] 100 U/L Normal 34-123 [facility] Comment on above: Order Comment: Speci men Type: BLOOD SPECIMEN Ordering Facility: [facility] Address: [address] [place] [address] Performed By: #### 2 4331-1, 6-4, 51512-8, 37701-9 #### [facility] CLIA [id number] [address] [place] [address] [place] ALT [Catalytic activity/Vol] 32 U/L Normal 7-38 [facility] Comment on above: Order Comment: Speci men Type: BLOOD SPECIMEN Ordering Facility: [facility] Address: [address] [place] [address] Performed By: #### 2 4331-1, 6-4, 48218-2, 57536-9 #### [facility] CLIA [id number] [address] [place] [address] [place] Anion gap [Moles/Vol] 8 mmol/L Normal 8-[address] [facility] Comment on above: Order Comment: Speci men Type: BLOOD SPECIMEN Ordering Facility: [facility] Address: [address] [place] [address] Performed By: #### 2 4331-1, 6-4, 70573-3, 76377-5 #### [facility] CLIA [id number] [address] [place] [address] [place] AST [Catalytic activity/Vol] 22 U/L Normal 13-35 [facility] Comment on above: Order Comment: Speci men Type: BLOOD SPECIMEN Ordering Facility: [facility] Address: [address] [place], [place] [address] Performed By: #### 2 4331-1, 2276-4, 31045-5, 41736-9 #### [facility] CLIA [id number] [address] [place] [address] [place] Bilirubin [Mass/Vol] 0.2 mg/dL Normal 0.2-1.3 [facility] Comment on above: Order Comment: Speci men Type: BLOOD SPECIMEN Ordering Facility: [facility] Address: [address] [place] [address] Performed By: #### 2 4331-1, 2276-4, 81522-3, 38082-4 #### [facility] CLIA [id number] [address] [place] [address] [place] Calcium [Mass/Vol] 9.6 mg/dL Normal 8.5-10.2 [facility] Comment on above: Order Comment: Speci men Type: BLOOD SPECIMEN Ordering Facility: [facility] Address: [address] [place] [address] Performed By: #### 2 4331-1, 2276-4, 94589-6, 05270-0 #### [facility] CLIA [id number] [address] [place] [address] [place] Chloride [Moles/Vol] 105 mmol/L Normal 98-107 [facility] Comment on above: Order Comment: Speci men Type: BLOOD SPECIMEN Ordering Facility: [facility] Address: [address] [place] [address] Performed By: #### 2 4331-1, 2276-4, 82741-2, 84772-7 #### [facility] CLIA [id number] [address] [place] [address] [place] CO2 [Moles/Vol] 24 mmol/L Normal 22-30 [facility] Comment on above: Order Comment: Speci men Type: BLOOD SPECIMEN Ordering Facility: [facility] Address: [address] [place] [address] Performed By: #### 2 4331-1, 2276-4, 00880-5, 78675-8 #### [facility] CLIA [id number] [address] [place] [address] [place] Creatinine [Mass/Vol] 0.59 mg/dL Normal 0.58-0.[address] [facility] Comment on above: Order Comment: Speci men Type: BLOOD SPECIMEN Ordering Facility: [facility] Address: [address] [place] [address] Performed By: #### 2 4331-1, 2276-4, 74241-5, 01286-5 #### [facility] CLIA [id number] [address] [place] [address] [place] Creatinine and Glomerular filtration rate.predicted panel (S/P/Bld) 120 mL/min/1.73m??? Normal >=60 [facility] Comment on above: Order Comment: Speci men Type: BLOOD SPECIMEN Ordering Facility: [facility] Address: [address] [place] [address] Result Comment: Angela mated Glomerular Filtration Rate [...] GFR. Performed By: #### 2 4331-1, 2276-4, 06631-7, 49339-3 #### [facility] CLIA [id number] [address] [place] [address] [place] Glucose [Mass/Vol] 91 mg/dL Normal 74-99 [facility] Comment on above: Order Comment: Speci men Type: BLOOD SPECIMEN Ordering Facility: [facility] Address: [address] [place] [address] Result Comment: The [place] [employer] (ADA) [...] 1). Performed By: #### 2 4331-1, 2276-4, 52775-9, 74343-5 #### [facility] CLIA [id number] [address] [place] [address] [place] Potassium [Moles/Vol] 4.2 mmol/L Normal 3.7-5.[address] [facility] Comment on above: Order Comment: Speci men Type: BLOOD SPECIMEN Ordering Facility: [facility] Address: [address] [place] [address] Performed By: #### 2 4331-1, 2276-4, 27608-1, 48385-1 #### [facility] CLIA [id number] [address] [place] [address] [place] Protein [Mass/Vol] 7.0 g/dL Normal 6.3-8.0 [facility] Comment on above: Order Comment: Chazi men Type: BLOOD SPECIMEN Ordering Facility: [facility] Address: [address] [place] [address] Performed By: #### 2 4331-1, 2276-4, 98419-7, 88693-2 #### [facility] CLIA [id number] [address] [place] [address] [place] Sodium [Moles/Vol] 137 mmol/L Normal 136-144 [facility] Comment on above: Order Comment: Chazi men Type: BLOOD SPECIMEN Ordering Facility: [facility] Address: [address] [place] [address] Performed By: #### 2 4331-1, 2275-4, 73963-1, 34619-6 #### [facility] CLIA [id number] [address] [place] [address] [place] Urea nitrogen [Mass/Vol] 10 mg/dL Normal 7-21 [facility] Comment on above: Order Comment: Speci men Type: BLOOD SPECIMEN Ordering Facility: [facility] Address: [address] [place] [address] Performed By: #### 2 4331-1, 2275-4, 73378-1, 77228-9 #### [facility] CLIA [id number] [address] [place] [address] [place] Ferritin SerPl-ncon 2024 Ferritin [Mass/Vol] 17.6 ng/mL Normal 14.7-205.1 [facility] Comment on above: Order Comment: Speci men Type: BLOOD SPECIMEN Ordering Facility: [facility] Address: [address] [place] [address] Performed By: #### 2 4331-1, 2275-, 97702-6, 20158-9 #### [facility] CLIA [id number] [address] [place] [address] [place] Iron and Iron binding capaci ty panelon 04-19-2024 Iron [Mass/Vol] 34 ug/dL Low 41-186 [facility] Comment on above: Order Comment: Speci men Type: BLOOD SPECIMEN Ordering Facility: [facility] Address: [address] [place] [address] Performed By: #### 2 4331-1, 2275-4, 42783-2, 17828-2 #### [facility] CLIA [id number] [address] [place], [place] [address] [place] Iron binding capacity [Mass/Vol] 407 ug/dL High 232-386 [facility] Comment on above: Order Comment: Speci men Type: BLOOD SPECIMEN Ordering Facility: [facility] Address: [address] [place] [address] Performed By: #### 2 4331-1, 2275-, 59684-2, 14119-6 #### [facility] CLIA [id number] [address] [place] [address] [place] Iron/TIBC [Molar ratio] 8.4 % Low 15.0-57.0 C [facility] Comment on above: Order Comment: Speci men Type: BLOOD SPECIMEN Ordering Facility: [facility] Address: [address] [place] [address] Performed By: #### 2 4331-1, 2275-06, 77258-3, 40464-1 #### [facility] CLIA [id number] [address] [place] [address] [place] Lipid 1996 panelon 5 Cholesterol [Mass/Vol] 200 mg/dL High <200 [facility] Comment on above: Order Comment: Speci men Type: BLOOD SPECIMEN Ordering Facility: [facility] Address: [address] [place] [address] Result Comment: <200 mg/dL, Desirable 200-239 mg/dL, Borderline high >239 mg/dL, High Performed By: #### 2 4331-1, 2275-06, 37591-1, 87299-2 #### [facility] CLIA [id number] [address] [place] [address] [place] Cholesterol in HDL [Mass/Vol] 47 mg/dL Normal >39 [facility] Comment on above: Order Comment: Speci men Type: BLOOD SPECIMEN Ordering Facility: [facility] Address: [address] [place] [address] Result Comment: 40-5 9 mg/dL, Acceptable >59 mg/dL, High: Negative risk factor for coronary heart disease <40 mg/dL, Low: Positive risk factor for coronary heart disease Performed By: #### 2 4331-1, 2275-4, 12694-0, 22323-3 #### [facility] CLIA [id number] [address] [place] [address] [place] Cholesterol in LDL [Mass/Vol] 143 mg/dL High <100 [facility] Comment on above: Order Comment: Chazi men Type: BLOOD SPECIMEN Ordering Facility: [facility] Address: [address] [place] [address] Result Comment: <100 mg/dL, Optimal 100-129 mg/dL, Near optimal/above optimal 130-159 mg/dL, Borderline high 160-189 mg/dL, High >189 mg/dL, Very high Secondary prevention optimal LDL Cholesterol levels are recommended to be < 70 mg/dL Performed By: #### 2 4331-1, 2275-4, 34085-8, 74219-6 #### [facility] CLIA [id number] [address] [place] [address] [place] Cholesterol in LDL/Cholesterol in HDL [Mass ratio] 3.04 {ratio} High <2.54 [facility] Comment on above: Order Comment: Kait brock Type: BLOOD SPECIMEN Ordering Facility: [facility] Address: [address] [place] [address] Result Comment: Reynaldo gutierrez: 1. National Cholesterol Education Program ATP III Guideline At-A-Glance Quick Desk Reference: National Heart, Lung, and Blood [place]. National Institutes of Health. 2001: NIH Publication No. 01-3305. 2. An International Atherosclerosis Society position paper: global recommendations for the management of dyslipidemia: executive summary, Atherosclerosis. 2014: 232(2):410-413. Performed By: #### 2 4331-1, 2275-4, 97557-5, 62068-4 #### [facility] CLIA [id number] [address] [place] [address] [place] Cholesterol in VLDL [Mass/Vol] 10 mg/dL Normal <30 [facility] Comment on above: Order Comment: Kait brock Type: BLOOD SPECIMEN Ordering Facility: [facility] Address: [address] [place] [address] Performed By: #### 2 4331-1, 6-4, 51902-0, 14812-8 #### [facility] CLIA [id number] [address] [place] [address] [place] Cholesterol non HDL [Mass/Vol] 153 mg/dL High <130 [facility] Comment on above: Order Comment: Speci men Type: BLOOD SPECIMEN Ordering Facility: [facility] Address: [address] [place] [address] Result Comment: <130 mg/dL, Optimal 130-159 mg/dL, Near optimal/above optimal 160-189 mg/dL, Borderline high 190-219 mg/dL, High >219 mg/dL, Very high Secondary prevention optimal non HDL Cholesterol levels are recommended to be <100 mg/dL Performed By: #### 2 4331-1, 2275-4, 72053-6, 85504-2 #### [facility] CLIA [id number] [address] [place] [place] [address] [place] Cholesterol.total/Cholester ol in HDL [Mass ratio] 4.26 {ratio} Normal <5.10 [facility] Comment on above: Order Comment: Speci men Type: BLOOD SPECIMEN Ordering Facility: [facility] Address: [address] [place] [address] Performed By: #### 2 4331-1, 2275-4, 98867-3, 55012-5 #### [facility] CLIA [id number] [address] [place] [address] [place] FASTING TIME 12 hrs Normal [facility] Comment on above: Order Comment: Speci men Type: BLOOD SPECIMEN Ordering Facility: [facility] Address: [address] [place] [address] Performed By: #### 2 4331-1, 2275-4, 93901-9, 92213-1 #### [facility] CLIA [id number] [address] [place] [address] [place] Triglyceride [Mass/Vol] 48 mg/dL Normal <150 C [facility] Comment on above: Order Comment: Speci men Type: BLOOD SPECIMEN Ordering Facility: [facility] Address: [address] [place] [address] [place] [address] Result Comment: <150 mg/dL, Normal 150-199 mg/dL, Borderline high 200-499 mg/dL, High >499 mg/dL, Very high Performed By: #### 2 4331-1, 2276-4, 14306-3, 86991-7 #### [facility] CLIA [id number] [address] [place] [address] [id number] [id number] [facility] CNOVon 04-14-2024 CNOV Office Visit (UCTR ) LIUDMILA WORLEY ([id number]) 1985 F Date Time Provider Department 04/14/24 7:45 PM ALIZA MCNAMARA [facility] During your visit today, we recorded the following information about you: Temperature Pulse Respiration Blood pressure 97.4 degrees 102/minute 16/minute 136/82 Weight 99.7 kg Aliza Mcnamara APRN.BIOMETRICS SPECIALIST 04/14/2024 8:08 PM Signed Subjective The history is provided by the patient. No supervising nurse was used. HPI Liudmila Worley is a [...] have confirmed and edited as necessary, the [facility] Review of Systems Constitutional: Negative [...] prompt ER evaluation. Aliza Mcnamara APRN.Aliza Gillespie APRN.BIOMETRICS SPECIALIST 04/14/2024 8:01 PM Signed Rest, increase water [...] tabletTake 1 (more content not included)... Normal [facility] LIUDMILA WORLEY ([id number]) 1985 F Date Time Provider Department 12/03/23 MENA VERNON INTMWS During your visit today, we recorded the following information about you: Aimee Ludwig RN 12/03/2023 10:49 AM Signed PRIOR AUTHORIZATION Medication for Prior Authorization: Adderall 30 mg (Brand Name) Insurance Company: [employer] Patient insurance ID number: [id number] SHARIFA Montanez Janice, LPN 12/03/2023 11:36 AM [...] an override. This was previously approved in [facility] until 04/26/24. Allergies As of [...] Status:Closed by LEYLA HUSSEIN on 12/03/23 Normal [facility] US ABDOMEN LIMITEDon 11-06-2 024 US ABDOMEN [...] 11/07/2023 10:46:03 AM Ordering Provider: DIEGO Wilde [facility] ([place]) .Auto Diffon 11-05-2023 Basophil, Absolute 0.0 10 3/mcL Normal 0.0-0.2 [facility] ([place]) Comment on above: Performed By: #### A DIFF, GFR, MDW, LIP, CMP, ANEU, CBC #### [address] [address] Basophils/100 WBC (Bld) 0.3 % Normal 0.0-2.5 A [facility] ([place]) Comment on above: Performed By: #### A DIFF, GFR, MDW, LIP, CMP, ANEU, CBC #### [address] [address] Eosinophil, Absolute 0.0 10 3/mcL Normal 0.0-0.4 [facility] ([place]) Comment on above: Performed By: #### A DIFF, GFR, MDW, LIP, CMP, ANEU, CBC #### [address] [address] Eosinophils/100 WBC (Bld) 0.3 % Normal 0.0-7.0 [facility] ([place]) Comment on above: Performed By: #### A DIFF, GFR, MDW, LIP, CMP, ANEU, CBC #### [address] [address] Lymphocyte, Absolute 0.7 10 3/mcL Low 0.8-3.9 [facility] ([place]) Comment on above: Performed By: #### A DIFF, GFR, MDW, LIP, CMP, ANEU, CBC #### [address] [address] Lymphocytes/100 WBC (Bld) 5.9 % Low 10.0-50.0 [facility] ([place]) Comment on above: Performed By: #### A DIFF, GFR, MDW, LIP, CMP, ANEU, CBC #### [address] [address] Monocyte, Absolute 0.6 10 3/mcL Normal 0.2-1.0 [facility] ([place]) Comment on above: Performed By: #### A DIFF, GFR, MDW, LIP, CMP, ANEU, CBC #### [address] [address] Monocytes/100 WBC (Bld) 5.1 % Normal 1.7-13.0 A [facility] ([place]) Comment on above: Performed By: #### A DIFF, GFR, MDW, LIP, CMP, ANEU, CBC #### [address] [address] Neutrophils/100 WBC (Bld) 88.4 % High 37.0-80.0 [facility] ([place]) Comment on above: Performed By: #### A DIFF, GFR, MDW, LIP, CMP, ANEU, CBC #### [address] [address] .GFRon 11-05-2023 GFR 123 ml/min/1.73sqm Normal [facility] ([place]) Comment on above: Result Comment: GFR Population [...] GFR, MDW, LIP, CMP, ANEU, CBC #### [address] [address] GFR Non- 101 ml/min/1.73sqm Normal [facility] ([place]) Comment on above: Result Comment: GFR Population [...] GFR, MDW, LIP, CMP, ANEU, CBC #### [address] [address] .MDWon 11-05-2023 Monocyte Distribution Width 18.53 Normal 0.00-20. 00 [facility] ([place]) Comment on above: Result Comment: For ED adult patients suspected of sepsis, MDW<=20.0 does not rule out sepsis or risk of sepsis Performed By: #### A DIFF, GFR, MDW, LIP, CMP, ANEU, CBC #### [address] [address] .NEUABSon 11-05-2023 Neutrophil, Absolute 10.6 10 3/mcL High 2.9-6.2 A [facility] ([place]) Comment on above: Performed By: #### A DIFF, GFR, MDW, LIP, CMP, ANEU, CBC #### [address] [address] CBCon 11-05-2023 Erythrocyte distribution width (RBC) [Ratio] 17.0 % High 11.5-14.5 [facility] ([place]) Comment on above: Performed By: #### A DIFF, GFR, MDW, LIP, CMP, ANEU, CBC #### [address] [address] Hematocrit (Bld) [Volume fraction] 36.9 % Low 37.0-47.0 [facility] ([place]) Comment on above: Performed By: #### A DIFF, GFR, MDW, LIP, CMP, ANEU, CBC #### [address] [address] Hgb 12.2 G/dL Normal 12.0-16.0 [facility] ([place]) Comment on above: Performed By: #### A DIFF, GFR, MDW, LIP, CMP, ANEU, CBC #### [place] [address] MCH (RBC) [Entitic mass] 25.4 pg Low 27.0-31.2 [facility] ([place]) Comment on above: Performed By: #### A DIFF, GFR, MDW, LIP, CMP, ANEU, CBC #### [address] [address] MCHC 33.1 G/dL Normal 33.0-37.0 [facility] ([place]) Comment on above: Performed By: #### A DIFF, GFR, MDW, LIP, CMP, ANEU, CBC #### [address] [address] MCV (RBC) [Entitic vol] 76.8 fL Low 80.0-94.0 A [facility] ([place]) Comment on above: Performed By: #### A DIFF, GFR, MDW, LIP, CMP, ANEU, CBC #### [address] [address] Platelet 386 10 3/mcL Normal 130-400 [facility] ([place]) Comment on above: Performed By: #### A DIFF, GFR, MDW, LIP, CMP, ANEU, CBC #### [address] [address] Platelet mean volume (Bld) [Entitic vol] 7.7 fL Normal 7.4-10.4 [facility] ([place]) Comment on above: Performed By: #### A DIFF, GFR, MDW, LIP, CMP, ANEU, CBC #### [address] [address] RBC 4.81 10 6/mcL Normal 4.20-5.40 [facility] ([place]) Comment on above: Performed By: #### A DIFF, GFR, MDW, LIP, CMP, ANEU, CBC #### [address] [address] WBC 12.0 10 3/mcL High 4.6-10.8 [facility] ([place]) Comment on above: Performed By: #### A DIFF, GFR, MDW, LIP, CMP, ANEU, CBC #### [address] [address] CMPon 11-05-2023 Albumin Level 4.0 G/dL Normal 3.5-5.0 [facility] ([place]) Comment on above: Performed By: #### A DIFF, GFR, MDW, LIP, CMP, ANEU, CBC #### [address] [address] Albumin/Globulin [Mass ratio] 1.3 {ratio} Normal 1.1-2.5 [facility] ([place]) Comment on above: Performed By: #### A DIFF, GFR, MDW, LIP, CMP, ANEU, CBC #### [address] [address] ALP [Catalytic activity/Vol] 107 U/L Normal 40-135 [facility] ([place]) Comment on above: Performed By: #### A DIFF, GFR, MDW, LIP, CMP, ANEU, CBC #### [address] [address] ALT [Catalytic activity/Vol] 81 U/L High 14-59 [facility] ([place]) Comment on above: Performed By: #### A DIFF, GFR, MDW, LIP, CMP, ANEU, CBC #### [address] [address] AST [Catalytic activity/Vol] 115 U/L High 10-40 [facility] ([place]) Comment on above: Performed By: #### A DIFF, GFR, MDW, LIP, CMP, ANEU, CBC #### [address] [address] Bili Total 1.0 mg/dL Normal 0.2-1.0 [facility] ([place]) Comment on above: Result Comment: Use of this assay is not recommended for patients undergoing treatment with eltrombopag due to the potential for falsely elevated results. Performed By: #### A DIFF, GFR, MDW, LIP, CMP, ANEU, CBC #### [address] [address] BUN/Creatinine Ratio 11 ratio Normal 7-27 [facility] ([place]) Comment on above: Performed By: #### A DIFF, GFR, MDW, LIP, CMP, ANEU, CBC #### [address] [address] Calcium [Mass/Vol] 9.6 mg/dL Normal 8.4-10.2 [facility] ([place]) Comment on above: Performed By: #### A DIFF, GFR, MDW, LIP, CMP, ANEU, CBC #### [address] [address] Chloride [Moles/Vol] 101 mmol/L Normal 98-107 [facility] ([place]) Comment on above: Performed By: #### A DIFF, GFR, MDW, LIP, CMP, ANEU, CBC #### [address] [address] CO2 [Moles/Vol] 29 mmol/L Normal 22-29 [facility] ([place]) Comment on above: Performed By: #### A DIFF, GFR, MDW, LIP, CMP, ANEU, CBC #### [address] [address] Creatinine [Mass/Vol] 0.66 mg/dL Normal 0.55-1.02 [facility] ([place]) Comment on above: Performed By: #### A DIFF, GFR, MDW, LIP, CMP, ANEU, CBC #### [address] [address] Electrolyte Balance 7.0 mEq/L Normal 4.0-15.0 [facility] ([place]) Comment on above: Performed By: #### A DIFF, GFR, MDW, LIP, CMP, ANEU, CBC #### [address] [address] Globulin 3.0 G/dL Normal [facility] ([place]) Comment on above: Performed By: #### A DIFF, GFR, MDW, LIP, CMP, ANEU, CBC #### [address] [address] Glucose [Mass/Vol] 103 mg/dL Normal 70-105 [facility] ([place]) Comment on above: Performed By: #### A DIFF, GFR, MDW, LIP, CMP, ANEU, CBC #### [address] [address] Potassium [Moles/Vol] 4.0 mmol/L Normal 3.5-5.1 [facility] ([place]) Comment on above: Performed By: #### A DIFF, GFR, MDW, LIP, CMP, ANEU, CBC #### [address] [address] Sodium [Moles/Vol] 137 mmol/L Normal 136-145 [facility] ([place]) Comment on above: Performed By: #### A DIFF, GFR, MDW, LIP, CMP, ANEU, CBC #### [address] [address] Total Protein 7.0 G/dL Normal 6.4-8.2 [facility] ([place]) Comment on above: Performed By: #### A DIFF, GFR, MDW, LIP, CMP, ANEU, CBC #### [address] [address] Urea nitrogen [Mass/Vol] 7 mg/dL Normal 7-18 [facility] ([place]) Comment on above: Performed By: #### A DIFF, GFR, MDW, LIP, CMP, ANEU, CBC #### [address] [address] LABORATORYOrdered By: SYSTEM SYSTEM on 11-05-2023 Albumin [...] 11-05-2023 Lipase Level 43 U/L Normal 16-77 [facility] ([place]) Comment on above: Performed By: #### A DIFF, GFR, MDW, LIP, CMP, ANEU, CBC #### [address] [address] PREGUon 11-05-2023 HCG ( test) Ql (U) Negative Normal [facility] ([place]) Comment on above: Performed By: #### U A, PREGU #### [address] [address] test (u) int Not detected Invalid Interpretation Code [facility] ([place]) Comment on above: Performed By: #### U A, PREGU #### [address] [address] UAon 11-05-2023 Color (U) Yellow Normal [facility] ([place]) Comment on above: Performed By: #### U A, PREGU #### [address] [address] Glucose (U) [Mass/Vol] Negative Normal Negative [facility] ([place]) Comment on above: Performed By: #### U A, PREGU #### [place] [address] Ketones Ql (U) Negative Normal Negative [facility] ([place]) Comment on above: Performed By: #### U A, PREGU #### [place] [address] UA Appear Clear Normal Clear [facility] ([place]) Comment on above: Performed By: #### U A, PREGU #### [place] [address] UA Blood Negative Normal Negative [facility] ([place]) Comment on above: Performed By: #### U A, PREGU #### [place] [address] UA Leuk Est Negative Normal Negative [facility] ([place]) Comment on above: Performed By: #### U A, PREGU #### [place] [address] UA Nitrite Negative Normal Negative [facility] ([place]) Comment on above: Performed By: #### U A, PREGU #### [place] [address] UA pH 6.5 Normal 5.0 - 8.0 [facility] ([place]) Comment on above: Performed By: #### U A, PREGU #### [place] [address] UA Protein Negative Normal Negative [facility] ([place]) Comment on above: Performed By: #### U A, PREGU #### [place] [address] UA Spec Grav 1.025 Normal 1.015-1.02 5 [facility] ([place]) Comment on above: Performed By: #### U A, PREGU #### [place] [address] UA Specimen Type Clean Catch Normal [facility] ([place]) Comment on above: Performed By: #### U A, PREGU #### [facility] [address] [place], [place] [address] UA Urobilinogen 0.2 E.U./dL Normal 0.2-1.0 [facility] ([place]) Comment on above: Performed By: #### U A, PREGU #### [facility] [address], [place] [address] Urobilinogen (U) [Mass/Vol] Negative Normal Negative [facility] ([place]) Comment on above: Performed By: #### U A, PREGU #### [facility] [address], [place] [address] STREP A MOLECULAR (POC)on Procedural Control Valid [facility] Strep A (POCT) Negative Negative [facility] XR Chest PA and Lateralon IMPRESSION: No acute radiographic abnormality. [facility] Lead: [facility] CENTER[facility] Transcribe Date/Time: May 29 2023 4:58P Dictated by : LIUDMILA ZARAGOZA MD This examination was interpreted and the report reviewed and electronically signed by: LIUDMILA ZARAGOZA MD on May 29 2023 5:00PM [facility] DIVISION OF RADIOLOGY * * *Final Report* [...] soft tissues: Unremarkable. DIVISION OF RADIOLOGY Provider, [facility] - 05/29/2023 * * *Final Report* [...] Unremarkable. IMPRESSION IMPRESSION: No acute radiographic abnormality. [facility] Shift Lead: [facility] Transcribe Date/Time: May 29 2023 4:58P Dictated by : LIUDMILA ZARAGOZA MD This examination was interpreted and the report reviewed and electronically signed by: LIUDMILA ZARAGOZA MD on May 29 2023 5:00PM EST [facility] Radiology Study observation (narrative) [facility] XR Chest PA and LateralOrder ed By: Ccf Provider on 05-29-2023 [facility] CBC panel Auto (Bld)on 04-22 Erythrocyte distribution width (RBC) [Ratio] 14.8 % 11.5 - 15.0 % [facility] Hematocrit (Bld) [Volume fraction] 38.7 % 36.0 - 46.0 % [facility] Hemoglobin (Bld) [Mass/Vol] 11.8 g/dL 11.5 - 15.5 g/dL [facility] MCH (RBC) [Entitic mass] 23.2 pg Low 26. 0 - 34.0 pg [facility] MCHC (RBC) [Mass/Vol] 30.5 g/dL 30.5 - 36.0 g/dL [facility] MCV (RBC) [Entitic vol] 76.2 fL Low 80.0 - 100.0 fL [facility] Nucleated RBC (Bld) [#/Vol] <0.01 k/ uL [facility] Platelet mean volume (Bld) [Entitic vol] 9.9 fL 9.0 - 12.7 fL [facility] Platelets (Bld) [#/Vol] 447 10*3/uL High 150 - 400 k/uL [facility] RBC (Bld) [#/Vol] 5.08 10*6/uL 3.90 - 5.20 m/uL [facility] WBC (Bld) [#/Vol] 4.94 10*3/uL 3.70 - 11.00 k/uL [facility] Comprehensive metabolic 2000 panelon 04-22-2023 Albumin [Mass/Vol] 4.6 g/dL 3.9 - 4.9 g/dL [facility] ALP [Catalytic activity/Vol] 92 U/L 34 - 123 U/L [facility] ALT [Catalytic activity/Vol] 14 U/L 7 - 38 U/L [facility] Anion gap [Moles/Vol] 10 mmol/L 9 - 18 mmol/L [facility] AST [Catalytic activity/Vol] 19 U/L 13 - 35 U/L [facility] Bilirubin [Mass/Vol] 0.4 mg/dL 0.2 - 1 .3 mg/dL [facility] Calcium [Mass/Vol] 9.3 mg/dL 8.5 - 10. 2 mg/dL [facility] Chloride [Moles/Vol] 102 mmol/L 97 - 10 5 mmol/L [facility] CO2 [Moles/Vol] 26 mmol/L 22 - 30 mmol/L [facility] Creatinine [Mass/Vol] 0.60 mg/dL 0.58 - 0.96 mg/dL [facility] Estimated Glomerular Filtration Rate 120 mL/min/1.73m >=60 mL/min/1.7 3m [facility] Glucose [Mass/Vol] 87 mg/dL 74 - 99 mg/dL [facility] Potassium [Moles/Vol] 4.2 mmol/L 3.7 - 5.1 mmol/L [facility] Protein [Mass/Vol] 7.2 g/dL 6.3 - 8.0 g/dL [facility] Sodium [Moles/Vol] 138 mmol/L 136 - 144 mmol/L [facility] Urea nitrogen [Mass/Vol] 7 mg/dL 7 - 21 mg/dL [facility] FERRITIN BLDon 04-22-2023 Ferritin [Mass/Vol] 11.4 ng/mL Low 14.7 - 205.1 ng/mL [facility] Iron and Iron binding capaci ty panelon 04-22-2023 Iron [Mass/Vol] 53 ug/dL 41 - 186 ug/dL [facility] Iron binding capacity [Mass/Vol] 498 ug/dL High 232 - 386 ug/dL [facility] Iron/TIBC [Molar ratio] 10.6 % Low 15.0 - 57.0 % [facility] Lipid 1996 panelon 4 Cholesterol [Mass/Vol] 241 mg/dL High <200 mg/dL Cl [facility] Cholesterol in HDL [Mass/Vol] 68 mg/dL >39 mg/dL [facility] Cholesterol in LDL [Mass/Vol] 153 mg/dL High <100 mg/dL [facility] Cholesterol in LDL/Cholesterol in HDL [Mass ratio] 2.25 {ratio} <2.54 [facility] Cholesterol in VLDL [Mass/Vol] 20 mg/dL <30 mg/dL [facility] Cholesterol non HDL [Mass/Vol] 173 mg/dL High <130 mg/dL [facility] Cholesterol.total/Cholester ol in HDL [Mass ratio] 3.54 {ratio} <5.10 [facility] Fasting Time 12 hrs [facility] Triglyceride [Mass/Vol] 99 mg/dL <150 mg/dL C [facility] CBC panel Auto (Bld)on 10-22 Erythrocyte distribution width (RBC) [Ratio] 16.2 % High 11.5 - 15.0 % [facility] Hematocrit (Bld) [Volume fraction] 36.0 % 36.0 - 46.0 % [facility] Hemoglobin (Bld) [Mass/Vol] 11.2 g/dL Low 11.5 - 15.5 g/dL [facility] MCH (RBC) [Entitic mass] 23.5 pg Low 26. 0 - 34.0 pg [facility] MCHC (RBC) [Mass/Vol] 31.1 g/dL 30.5 - 36.0 g/dL [facility] MCV (RBC) [Entitic vol] 75.5 fL Low 80.0 - 100.0 fL [facility] Nucleated RBC (Bld) [#/Vol] <0.01 k/ uL [facility] Platelet mean volume (Bld) [Entitic vol] 9.5 fL 9.0 - 12.7 fL [facility] Platelets (Bld) [#/Vol] 384 10*3/uL 150 - 400 k/uL [facility] RBC (Bld) [#/Vol] 4.77 10*6/uL 3.90 - 5.20 m/uL [facility] WBC (Bld) [#/Vol] 7.40 10*3/uL 3.70 - 11.00 k/uL [facility] DHEA-S BLDon 10-22-2022 DHEA-S [Mass/Vol] 218.5 ug/dL 60.9 - 337.0 ug/dL [facility] TESTOSTERONE TOTALon 023 Testosterone [Mass/Vol] 28 ng/dL <40 ng/dL C [facility] TSH Don 10-22-2022 TSH Qn 1.730 m[IU]/L 0.270 - 4.200 mIU/L [facility] MAMMO DIAGNOSTIC WITH MATA B ILATERALon 02-15-2022 MAMMO DIAGNOSTIC WITH MATA BILATERAL EXAM: MAMMO DIAGNOSTIC WITH MATA BILATERAL, US BREAST LIMITED UNILATERAL RIGHT, 02/15/2022 09:49 AM (accession [id number]), 02/15/2022 09:56 AM (accession [id number]) CLINICAL INDICATIONS: Palpable abnormality 10:00 right breast [...] Clinical correlation/managemen t. Recommendation Laterality: Right Normal [facility] MG Breast - bilateral Diagno sticon 02-15-2022 Sha Rodríguez MD - 02/15/2022 EXAM: MAMMO DIAGNOSTIC WITH MATA BILATERAL, US BREAST LIMITED UNILATERAL RIGHT, 02/15/2022 09:49 AM (accession [id number]), 02/15/2022 09:56 AM (accession [id number]) CLINICAL INDICATIONS: Palpable abnormality 10:00 right breast [...] Recommendation: Clinical correlation/managemen t. Recommendation Laterality: Right [facility] Radiology Study observation (narrative) [facility] No Panel Informationon 02-15 IMPRESSION: Negative bilateral mammogram and negative targeted right breast ultrasound. Clinical follow-up and management of the patient's symptoms recommended BI-RADS: 1: Negative Recommendation: Clinical correlation/managemen t. Recommendation Laterality: Right OLOGY EXAM: MAMMO DIAGNOSTIC WITH MATA BILATERAL, US BREAST LIMITED UNILATERAL RIGHT, 02/15/2022 09:49 AM (accession [id number]), 02/15/2022 09:56 AM (accession [id number]) CLINICAL INDICATIONS: Palpable abnormality 10:00 right breast [...] Panel InformationOrdered By: Sha Rodríguez on 02-15-2022 [facility] Work Phone: US BREAST LIMITED UNILATERAL RIGHTon 02-15-2022 US BREAST LIMITED UNILATERAL RIGHT EXAM: MAMMO DIAGNOSTIC WITH MATA BILATERAL, US BREAST LIMITED UNILATERAL RIGHT, 02/15/2022 09:49 AM (accession [id number]), 02/15/2022 09:56 AM (accession [id number]) CLINICAL INDICATIONS: Palpable abnormality 10:00 right breast [...] Clinical correlation/managemen t. Recommendation Laterality: Right Normal [facility] US Breast - right limitedon 02-15-2022 Radiology Study observation (narrative) [facility] Basophil percentageon 2021 WBC (Bld) [#/Vol] 4.9 10*3/uL 4.4-11.0 [facility]: Blood erythrocytes count (nu mber/volume)on 11-09-2021 RBC (Bld) [#/Vol] 4.58 10*6/uL 4.2-5.4 [facility] Work Phone: Blood hemoglobin measurement (mass/volume)on 11-09-2021 Hemoglobin (Bld) [Mass/Vol] 11.9 g/dL 12.0-15. 0 [facility] Work Phone: Blood platelet mean volumeon 11-09-2021 Platelet mean volume (Bld) [Entitic vol] 9.5 fL 6.2-12.0 [facility] Work Phone: Determination of erythrocyte mean corpuscular volume (MCV)on 11-09-2021 MCV (RBC) [Entitic vol] 81.4 fL 81-99 [facility] Work Phone: Hematocrit Auto (Bld) [Volum e fraction]on 11-09-2021 Hematocrit (Bld) [Volume fraction] 37.3 % 37-47 [facility] Work Phone: Laboratory - Chemistry and C hemistry - challengeon 11-09-2021 HCG ( test) Ql (U) Negative [facility] Work Phone: Comment on above: Very dilute urine sp ecimens, as indicated by a low specificgravity, may not contain patient care representative levels of hCG. If is still suspected, a first morning urinespecimen should be collected 48 hours later and tested. Laboratory - Hematology and Cell countson 11-09-2021 Erythrocyte distribution width (RBC) [Entitic vol] 42.7 fL 35.1-43.9 [facility] Work Phone: Erythrocyte distribution width (RBC) [Ratio] 14.6 % 11.6-14.6 [facility] Work Phone: MCH (RBC) [Entitic mass] 26.0 pg 27.0-32.0 [facility] Work Phone: MCHC Auto (RBC) [Mass/Vol]on 11-09-2021 MCHC (RBC) [Mass/Vol] 31.9 g/dL 32-36 [facility] Work Phone: Platelets bldon 11-09-2021 Platelets (Bld) [#/Vol] 351 10*3/uL 150-450 [facility] Work Phone: HCG QUAL UR B/Oon 10-10-2021 status Negative neg - pos [facility] Quality Check Yes [facility] CBC panel Auto (Bld)on 09-19 Erythrocyte distribution width (RBC) [Ratio] 14.7 % 11.5 - 15.0 % [facility] Hematocrit (Bld) [Volume fraction] 38.5 % 36.0 - 46.0 % [facility] Hemoglobin (Bld) [Mass/Vol] 12.8 g/dL 11.5 - 15.5 g/dL [facility] MCH (RBC) [Entitic mass] 26.4 pg 26. 0 - 34.0 pg [facility] MCHC (RBC) [Mass/Vol] 33.2 g/dL 30.5 - 36.0 g/dL [facility] MCV (RBC) [Entitic vol] 79.5 fL Low 80.0 - 100.0 fL [facility] Nucleated RBC (Bld) [#/Vol] 10*3/uL <0.01 k/ uL [facility] Platelet mean volume (Bld) [Entitic vol] 9.5 fL 9.0 - 12.7 fL [facility] Platelets (Bld) [#/Vol] 354 10*3/uL 150 - 400 k/uL [facility] RBC (Bld) [#/Vol] 4.84 10*6/uL 3.90 - 5.20 m/uL [facility] WBC (Bld) [#/Vol] 5.47 10*3/uL 3.70 - 11.00 k/uL [facility] Absolute lymphocyte counton 07-27-2021 Lymphocytes Auto (Unsp spec) [#/Vol] 0.61 10*3/uL 0.83-4.51 [facility] Work Phone: Basophil percentageon 2021 Basophil percentage 0-5 SEEN /hpf 0-5 [facility] Work Phone: Comment on above: Previous reported re sult: 0 SEEN /hpfEdited by: ALVARO on 07/27/21:1410 AMENDED REPORT 07/27/21 1410 WBC previously reported as: 0 SEEN /hpf Basophils/100 WBC (Bld) 0.2 % 0-1 [facility] Work Phone: [phone] Bilirubin [Mass/Vol] 0.50 mg/dL 0.20-1.00 [facility] Work Phone: [phone] Comment on above: For patients on eltr ombopag therapy, use of Dimension [place] TBIL is not recommended. Chloride [Moles/Vol] 105 mmol/L 98-107 [facility] Work Phone: Eosinophils/100 WBC (Bld) 0.3 % 0-5 [facility] Work Phone: Glucose [Mass/Vol] 92 mg/dL 74-106 [facility] Work Phone: Neutrophils (Bld) [#/Vol] 5.2 10*3/uL 2.0-7.7 [facility] Work Phone: Neutrophils/100 WBC (Bld) 81.0 % 47-70 [facility] Work Phone: Potassium [Moles/Vol] 3.6 mmol/L 3.5-5.1 [facility] Work Phone: Protein [Mass/Vol] 7.8 g/dL 6.4-8.2 [facility] Work Phone: Sodium [Moles/Vol] 138 mmol/L 136-145 [facility] Work Phone: WBC (Bld) [#/Vol] 6.4 10*3/uL 4.4-11.0 [facility] Work Phone: Bilirubin Test strip Ql (U)o n 07-27-2021 Bilirubin Ql (U) Negative Negative [facility] Work Phone: Blood erythrocytes count (nu mber/volume)on 07-27-2021 RBC (Bld) [#/Vol] 5.20 10*6/uL 4.2-5.4 [facility] Work Phone: Blood hemoglobin measurement (mass/volume)on 07-27-2021 Hemoglobin (Bld) [Mass/Vol] 13.8 g/dL 12.0-15. 0 [facility] Work Phone: Blood lymphocytes/100 leukoc yteson 07-27-2021 Lymphocytes/100 WBC (Bld) 9.5 % 19-41 [facility] Work Phone: Blood monocytes/100 leukocyt eson 07-27-2021 Monocytes/100 WBC (Bld) 8.7 % 0-10 [facility] Work Phone: Blood platelet mean volumeon 07-27-2021 Platelet mean volume (Bld) [Entitic vol] 9.6 fL 6.2-12.0 [facility] Work Phone: Determination of erythrocyte mean corpuscular volume (MCV)on 07-27-2021 MCV (RBC) [Entitic vol] 79.6 fL 81-99 [facility] Work Phone: Hematocrit Auto (Bld) [Volum e fraction]on 07-27-2021 Hematocrit (Bld) [Volume fraction] 41.4 % 37-47 [facility] Work Phone: Ketones Test strip Ql (U)on 07-27-2021 Ketones Ql (U) 5 mg/dl Negative [facility] Work Phone: Laboratory - Chemistry and C hemistry - challengeon 07-27-2021 HCG ( test) Ql (U) Negative [facility] Work Phone: Comment on above: Very dilute urine sp ecimens, as indicated by a low specificgravity, may not contain patient care representative levels of hCG. If is still suspected, a first morning urinespecimen should be collected 48 hours later and tested. ALP [Catalytic activity/Vol] 85 U/L 45-117 [facility] Work Phone: ALT [Catalytic activity/Vol] 20 U/L 13-56 [facility] Work Phone: CO2 [Moles/Vol] 25.0 mmol/L 21.0-32.0 [facility] Work Phone: Globulin (S) [Mass/Vol] 3.6 g/dL 2.2-4.2 [facility] Work Phone: Lipase [Catalytic activity/Vol] 139 U/L 73-393 [facility] Work Phone: Urea nitrogen/Creatinine [Mass ratio] 9.9 mg/mg 10-20 [facility] Work Phone: Laboratory - Hematology and Cell countson 07-27-2021 Erythrocyte distribution width (RBC) [Entitic vol] 40.9 fL 35.1-43.9 [facility] Work Phone: Erythrocyte distribution width (RBC) [Ratio] 14.1 % 11.6-14.6 [facility] Work Phone: Immature granulocytes/100 WBC (Bld) 0.300 % 0.0-0.9 [facility] Work Phone: Comment on above: IG% - Immature Granu locytes (promyelocytes, myelocytes and metamyelocytes) > 1% indicates that a LEFT SHIFT is Present. MCH (RBC) [Entitic mass] 26.5 pg 27.0-32.0 [facility] Work Phone: Nucleated RBC/100 WBC (Bld) [Ratio] 0 % 0-5 [facility] Work Phone: MCHC Auto (RBC) [Mass/Vol]on 07-27-2021 MCHC (RBC) [Mass/Vol] 33.3 g/dL 32-36 [facility] Work Phone: Mucus LM Ql (Urine sed)on Mucus Ql (Urine sed) 0 SEEN /hpf [facility] Work Phone: Nitrite Test strip Ql (U)on 07-27-2021 Nitrite Ql (U) Negative Negative [facility] Work Phone: No Panel Informationon 07-27 Estimated Creatinine Clearance Calc 103.75 ml/min [facility] Work Phone: Estimated GFR (MDRD) Amer 145 mL/min >60 [facility] Work Phone: Comment on above: GFR Calc Estimated GFR (MDRD) Non-Af Amer 120 mL/min >60 [facility] Work Phone: Comment on above: Non- GFR Calc Platelets bldon 07-27-2021 Platelets (Bld) [#/Vol] 343 10*3/uL 150-450 [facility] Work Phone: Protein Test strip Ql (U)on 07-27-2021 Protein Ql (U) 30 mg/dl Negative [facility] Work Phone: Serum or plasma albumin brian urement (mass/volume)on 07-27-2021 Albumin [Mass/Vol] 4.2 g/dL 3.2-5.0 [facility] Work Phone: Serum or plasma albumin/glob ulin mass ratioon 07-27-2021 Albumin/Globulin [Mass ratio] 1.2 {ratio} 0.9-2.4 [facility] Work Phone: Serum or plasma calcium brian urement (mass/volume)on 07-27-2021 Calcium [Mass/Vol] 9.1 mg/dL 8.5-10.1 [facility] Work Phone: Serum or plasma creatinine m easurement (mass/volume)on 07-27-2021 Creatinine [Mass/Vol] 0.61 mg/dL 0.55-1.02 [facility] Work Phone: Comment on above: The validity of the calculated GFR & GFRAA in patients over 70 years has not been determined. Clinical correlation is essential. Serum or plasma urea nitroge n measurement (mass/volume)on 07-27-2021 Urea nitrogen [Mass/Vol] 6 mg/dL 7-18 [facility] Work Phone: Squamous epithelial cells de tection in urine sediment by light microscopyon 07-27-2021 Epithelial cells.squamous LM Ql (Urine sed) 0-5 SEEN /hpf 5-10 [facility] Work Phone: Comment on above: Previous reported re sult: 0 SEEN /hpfEdited by: ALVARO on 07/27/21:1412 AMENDED REPORT 07/27/211411 SQUAM EPI previously reported as: 0 SEEN /hpf Thin prep Papanicolaou smear with manual screeningon 07-27-2021 Thin prep Papanicolaou smear with manual screening 12 U/L 15-37 [facility] Work Phone: Thin prep Papanicolaou smear with manual screening 8 5-15 [facility] Work Phone: Urine blood detectionon 07-09-2021 RBC Ql (U) Negative Negative [facility] Work Phone: [phone] RBC Ql (U) 0 SEEN /hpf 0-5 [facility] Work Phone: Urine clarityon 07-27-2021 Clarity (U) Sl. Cloudy Clear [facility] Work Phone: Urine color determinationon 07-27-2021 Color (U) Yellow Yellow [facility] Work Phone: Urine glucose detectionon Glucose Ql (U) Normal mg/dl Normal [facility] Work Phone: Urine leukocyte esterase det ection by dipstickon 07-27-2021 Leukocyte esterase Test strip Ql (U) 25 /ul Negative [facility] Work Phone: Urine pHon 07-27-2021 pH (U) 6.0 [pH] 5.0 - 8.0 [facility] Work Phone: Urine sediment bacteria coun t by microscopy (number/high power field)on 07-27-2021 Bacteria LM.HPF (Urine sed) [#/Area] RARE /hpf None Seen [facility] Work Phone: Comment on above: Previous reported re sult: 0 SEEN /hpfEdited by: ALVARO on 07/27/21:1413 AMENDED REPORT 07/27/211412 BACTERIA previously reported as: 0 SEEN /hpf Urine specific gravity measu rementon 07-27-2021 Specific gravity (U) [Rel density] 1.020 1.002-1.03 0 [facility] Work Phone: Urobilinogen Auto test strip Ql (U)on 07-27-2021 Urobilinogen Ql (U) Normal mg/dl Normal [facility] Work Phone: Vital Signs Date Time Vital Sign Value Performing Clinician Facility 07-21-2024 16:07-0400 Body height 160 cm Jaylan Syed MD Work Phone: [facility] 07-21-2024 16:07-0400 Body mass index (BMI) [Ratio] 38.09 kg/m2 Jaylan Syed MD Work Phone: [facility] 07-21-2024 16:07-0400 Body weight 97.52 kg Jaylan Syed MD Work Phone: [facility] 07-21-2024 16:07-0400 Diastolic blood pressure 88 mm[Hg] Jaylan Syed MD Work Phone: [facility] 07-21-2024 16:07-0400 Systolic blood pressure 134 mm[Hg] Jaylan Syed MD Work Phone: [facility] 07-05-2024 14:46-0400 Body temperature 97.2 [degF] Dr. Mena Vernon MD Work Phone: [facility] 07-05-2024 14:46-0400 Diastolic blood pressure 102 mm[Hg] Dr. Mena Vernon MD Work Phone: [facility] 07-05-2024 14:46-0400 Heart rate 78 /min Dr. Mena Vernon MD Work Phone: [facility] 07-05-2024 14:46-0400 Respiratory rate 16 /min Dr. Mena Vernon MD Work Phone: [facility] 07-05-2024 14:46-0400 SaO2% (BldA) [Mass fraction] 100 % Dr. Mena Vernon MD Work Phone: [facility] 07-05-2024 14:46-0400 Systolic blood pressure 138 mm[Hg] Dr. Mena Vernon MD Work Phone: [phone](276)074-748025 [place] [address] 07-05-2024 11:05-0400 Body height 157.[address] Mena Vernon MD Work Phone: [phone])790-225525 [place] [address] 07-05-2024 11:05-0400 Body mass index (BMI) [Ratio] 40 kg/m2 Dr. Mena Vernon MD Work Phone: 3(475)206-142625 [place] [address] 07-05-2024 11:05-0400 Body weight 99.[address] Mena Vernon MD Work Phone: 8(952)217-518825 [place] [address] 07-04-2024 09:46-0400 Body temperature 98.3 [degF] Dr. Mena Vernon MD Work Phone: 1(484)895-363425 [place] [address] 07-04-2024 09:46-0400 Diastolic blood pressure 68 mm[Hg] Dr. Mena Vernon MD Work Phone: 7(422)604-710025 [place] [address] 07-04-2024 09:46-0400 Heart rate 72 /min Dr. Mena Vernon MD Work Phone: 4(338)913-818625 [place] [address] 07-04-2024 09:46-0400 Respiratory rate 18 /min Dr. Mena Vernon MD Work Phone: 3(394)624-110925 [place] [address] 07-04-2024 09:46-0400 SaO2% (BldA) [Mass fraction] 100 % Dr. Mena Vernon MD Work Phone: 6(430)173-702425 [place] [address] 07-04-2024 09:46-0400 Systolic blood pressure 116 mm[Hg] Dr. Mena Vernon MD Work Phone: 5(452)236-952225 [place] [address] 07-04-2024 06:20-0400 Body height 157.[address] Mena Vernon MD Work Phone: 7(317)866-775525 [place] [address] 07-04-2024 06:20-0400 Body mass index (BMI) [Ratio] 40 kg/m2 Dr. Mena Vernon MD Work Phone: [facility] 07-04-2024 06:20-0400 Body weight 99.[address] Mena Vernon MD Work Phone: [facility] 04-19-2024 08:46-0500 Body mass index (BMI) [Ratio] 38.27 kg/m2 Mena Vernon MD Work Phone: [facility] 04-19-2024 08:46-0500 Body weight 98 kg Mena Vernon MD Work Phone: [facility] 04-19-2024 08:46-0500 Diastolic blood pressure 84 mm[Hg] Mena Vernon MD Work Phone: [facility] 04-19-2024 08:46-0500 Heart rate 97 /min Mena Vernon MD Work Phone: [facility] 04-19-2024 08:46-0500 Respiratory rate 16 /min Mena Vernon MD Work Phone: [facility] 04-19-2024 08:46-0500 Systolic blood pressure 128 mm[Hg] Mena Vernon MD Work Phone: [facility] 04-14-2024 19:52-0500 Body mass index (BMI) [Ratio] 38.94 kg/m2 Aliza Naima BIOLOGY LABORATORY ASSISTANT.BIOMETRICS SPECIALIST Work Phone: [facility] 04-14-2024 19:52-0500 Body temperature 97.39 [degF] Aliza Naima BIOLOGY LABORATORY ASSISTANT.BIOMETRICS SPECIALIST Work Phone: [facility] 04-14-2024 19:52-0500 Body weight 99.7 kg Aliza Naima BIOLOGY LABORATORY ASSISTANT.BIOMETRICS SPECIALIST Work Phone: [facility] 04-14-2024 19:52-0500 Diastolic blood pressure 82 mm[Hg] Aliza Naima BIOLOGY LABORATORY ASSISTANT.BIOMETRICS SPECIALIST Work Phone: [facility] 04-14-2024 19:52-0500 Heart rate 102 /min Aliza Naima BIOLOGY LABORATORY ASSISTANT.BIOMETRICS SPECIALIST Work Phone: [facility] 04-14-2024 19:52-0500 Respiratory rate 16 /min Aliza Mcnamara BIOLOGY LABORATORY ASSISTANT.BIOMETRICS SPECIALIST Work Phone: [facility] 04-14-2024 19:52-0500 SaO2% (BldA) [Mass fraction] 96 % Aliza Mcnamara BIOLOGY LABORATORY ASSISTANT.BIOMETRICS SPECIALIST Work Phone: [facility] 04-14-2024 19:52-0500 Systolic blood pressure 136 mm[Hg] Aliza Mcnamara BIOLOGY LABORATORY ASSISTANT.BIOMETRICS SPECIALIST Work Phone: [facility] 11-05-2023 17:15-0400 Blood Pressure Location DIEGO FOX MD [facility] 11-05-2023 17:15-0400 Blood Pressure Method DIEGO FOX MD [facility] 11-05-2023 17:15-0400 Body height 157.5 cm DIEGO FOX MD [facility] 11-05-2023 17:15-0400 Body temperature 97.88 [degF] DIEGO FOX MD [facility] 11-05-2023 17:15-0400 Body weight 98 kg DIEGO FOX MD [facility] 11-05-2023 17:15-0400 Diastolic Blood Pressure Non-Invasive 90 mm[Hg] DIEGO FOX MD [facility] 11-05-2023 17:15-0400 Heart rate 95 /min DIEGO FOX MD [facility] 11-05-2023 17:15-0400 Respiratory rate 16 /min DIEGO FOX MD [facility] 11-05-2023 17:15-0400 Systolic Blood Pressure Non-Invasive 128 mm[Hg] DIEGO FOX MD [facility] 10-03-2023 16:56-0400 Body mass index (BMI) [Ratio] 38.62 kg/m2 Mena Vernon MD Work Phone: [facility] 10-03-2023 16:56-0400 Body temperature 98.1 [degF] Mena Vernon MD Work Phone: [facility] 10-03-2023 16:56-0400 Body weight 98.88 kg Mena Vernon MD Work Phone: [facility] 10-03-2023 16:56-0400 Diastolic blood pressure 78 mm[Hg] Mena Vernon MD Work Phone: [facility] 10-03-2023 16:56-0400 Heart rate 120 /min Mena Vernon MD Work Phone: [facility] 10-03-2023 16:56-0400 Respiratory rate 18 /min Mena Vernon MD Work Phone: [facility] 10-03-2023 16:56-0400 SaO2% (BldA) [Mass fraction] 100 % Mena Vernon MD Work Phone: [facility] 10-03-2023 16:56-0400 Systolic blood pressure 138 mm[Hg] Mena Vernon MD Work Phone: [facility] 08-31-2023 09:03-0400 Body mass index (BMI) [Ratio] 37.88 kg/m2 Madhu Moomaw BIOLOGY LABORATORY ASSISTANT.BIOMETRICS SPECIALIST Work Phone: [facility] 08-31-2023 09:03-0400 Body temperature 97.3 [degF] Madhu Moomaw BIOLOGY LABORATORY ASSISTANT.BIOMETRICS SPECIALIST Work Phone: [facility] 08-31-2023 09:03-0400 Body weight 97 kg Madhu Moomaw BIOLOGY LABORATORY ASSISTANT.BIOMETRICS SPECIALIST Work Phone: [facility] 08-31-2023 09:03-0400 Diastolic blood pressure 97 mm[Hg] Madhu Moomaw BIOLOGY LABORATORY ASSISTANT.BIOMETRICS SPECIALIST Work Phone: [facility] Comment on above: no meds this am 08-31-2023 09:03-0400 Heart rate 87 /min Madhu Moomaw BIOLOGY LABORATORY ASSISTANT.BIOMETRICS SPECIALIST Work Phone: [facility] 08-31-2023 09:03-0400 Respiratory rate 18 /min Madhu Moomaw BIOLOGY LABORATORY ASSISTANT.BIOMETRICS SPECIALIST Work Phone: [facility] 08-31-2023 09:03-0400 SaO2% (BldA) [Mass fraction] 100 % Madhu Moomaw BIOLOGY LABORATORY ASSISTANT.BIOMETRICS SPECIALIST Work Phone: [facility] 08-31-2023 09:03-0400 Systolic blood pressure 155 mm[Hg] Madhu Moomaw BIOLOGY LABORATORY ASSISTANT.BIOMETRICS SPECIALIST Work Phone: [facility] Comment on above: no meds this am 05-29-2023 16:37-0400 Body temperature 97 [degF] Shima Athy PA-C Work Phone: [facility] 05-29-2023 16:37-0400 Body weight 99.5 kg Shima Athy PA-C Work Phone: [facility] 05-29-2023 16:37-0400 Diastolic blood pressure 120 mm[Hg] Shima Athy PA-C Work Phone: [facility] 05-29-2023 16:37-0400 Heart rate 116 /min Shima Athy PA-C Work Phone: [facility] 05-29-2023 16:37-0400 Respiratory rate 16 /min Shima Athy PA-C Work Phone: [facility] 05-29-2023 16:37-0400 SaO2% (BldA) [Mass fraction] 98 % Shima Athy PA-C Work Phone: [facility] 05-29-2023 16:37-0400 Systolic blood pressure 163 mm[Hg] Shima Athy PA-C Work Phone: [facility] 04-22-2023 09:05-0500 Diastolic blood pressure 88 mm[Hg] Mena Vernon MD Work Phone: [facility] 04-22-2023 09:05-0500 Systolic blood pressure 138 mm[Hg] Mena Vernon MD Work Phone: [facility] 04-22-2023 08:18-0500 Body weight 97.98 kg Mena Vernon MD Work Phone: [facility] 04-22-2023 08:18-0500 Heart rate 88 /min Mena Vernon MD Work Phone: [facility] 10-22-2022 09:00-0400 Body height 160 cm Jaylan Syed MD Work Phone: [facility] 10-22-2022 09:00-0400 Body weight 99.79 kg Jaylan Syed MD Work Phone: [facility] 10-22-2022 09:00-0400 Diastolic blood pressure 90 mm[Hg] Jaylan Syed MD Work Phone: [facility] 10-22-2022 09:00-0400 Systolic blood pressure 148 mm[Hg] Jaylan Syed MD Work Phone: [facility] 06-22-2022 16:43-0400 Body height 157.48 cm [facility] 06-22-2022 16:43-0400 Body mass index (BMI) [Ratio] 38.4 kg/m2 [facility] 06-22-2022 16:43-0400 Body temperature 97.8 [degF] [facility] 06-22-2022 16:43-0400 Body weight 95.25 kg [facility] 06-22-2022 16:43-0400 Diastolic blood pressure 90 mm[Hg] [facility] 06-22-2022 16:43-0400 Heart rate 94 /min [facility] 06-22-2022 16:43-0400 Respiratory rate 16 /min [facility] 06-22-2022 16:43-0400 SaO2% (BldA) [Mass fraction] 100 % [facility] 06-22-2022 16:43-0400 Systolic blood pressure 167 mm[Hg] [facility] 04-10-2022 11:18-0500 Body temperature 98.01 [degF] Mena Vernon MD Work Phone: [facility] 04-10-2022 11:18-0500 Body weight 94.35 kg Mena Vernon MD Work Phone: [facility] 04-10-2022 11:18-0500 Diastolic blood pressure 74 mm[Hg] Mena Vernon MD Work Phone: [facility] 04-10-2022 11:18-0500 Heart rate 104 /min Mena Vernon MD Work Phone: [facility] 04-10-2022 11:18-0500 Respiratory rate 18 /min Mena Vernon MD Work Phone: [facility] 04-10-2022 11:18-0500 SaO2% (BldA) [Mass fraction] 99 % Mena Vernon MD Work Phone: [facility] 04-10-2022 11:18-0500 Systolic blood pressure 130 mm[Hg] Mena Vernon MD Work Phone: [facility] 04-02-2022 19:58-0500 Body temperature 98.29 [degF] Krislyn Aberegg PA Work Phone: [facility] 04-02-2022 19:58-0500 Body weight 97.07 kg Krislyn Aberegg PA Work Phone: [facility] 04-02-2022 19:58-0500 Diastolic blood pressure 86 mm[Hg] Krislyn Aberegg PA Work Phone: [facility] 04-02-2022 19:58-0500 Heart rate 100 /min Krislyn Aberegg PA Work Phone: [facility] 04-02-2022 19:58-0500 Respiratory rate 16 /min Krislyn Aberegg PA Work Phone: [facility] 04-02-2022 19:58-0500 SaO2% (BldA) [Mass fraction] 99 % Krislyn Aberegg PA Work Phone: [facility] 04-02-2022 19:58-0500 Systolic blood pressure 138 mm[Hg] Krislyn Aberegg PA Work Phone: [facility] 02-15-2022 09:06-0500 Body height 162.6 cm Venita Joanie BIOLOGY LABORATORY ASSISTANT-BIOMETRICS SPECIALIST Work Phone: [facility] 02-15-2022 09:06-0500 Body mass index (BMI) [Ratio] 36.06 kg/m2 Venita Platte BIOLOGY LABORATORY ASSISTANT-BIOMETRICS SPECIALIST Work Phone: [facility] 02-15-2022 09:06-0500 Body temperature 98.29 [degF] Venita Platte BIOLOGY LABORATORY ASSISTANT-BIOMETRICS SPECIALIST Work Phone: [facility] 02-15-2022 09:06-0500 Body weight 95.3 kg Venita Joanie BIOLOGY LABORATORY ASSISTANT-BIOMETRICS SPECIALIST Work Phone: [facility] 02-15-2022 09:06-0500 Diastolic blood pressure 93 mm[Hg] Venita Platte BIOLOGY LABORATORY ASSISTANT-BIOMETRICS SPECIALIST Work Phone: [facility] 02-15-2022 09:06-0500 Heart rate 86 /min Venita Platte BIOLOGY LABORATORY ASSISTANT-BIOMETRICS SPECIALIST Work Phone: [facility] 02-15-2022 09:06-0500 Systolic blood pressure 162 mm[Hg] Venita Platte BIOLOGY LABORATORY ASSISTANT-BIOMETRICS SPECIALIST Work Phone: [facility] 01-28-2022 10:02-0500 Body weight 96.16 kg Kayla Ferrer MD Work Phone: [facility] 01-28-2022 10:02-0500 Diastolic blood pressure 90 mm[Hg] Kayla Ferrer MD Work Phone: [facility] 01-28-2022 10:02-0500 Systolic blood pressure 154 mm[Hg] Kayla Ferrer MD Work Phone: [facility] 11-09-2021 10:19-0400 Body temperature 97.1 [degF] [facility] Work Phone: 11-09-2021 10:19-0400 Diastolic blood pressure 90 mm[Hg] [facility] Work Phone: 11-09-2021 10:19-0400 Heart rate 68 /min [facility] Work Phone: 11-09-2021 10:19-0400 Respiratory rate 18 /min [facility] Work Phone: 11-09-2021 10:19-0400 SaO2% (BldA) [Mass fraction] 97 % [facility] Work Phone: 11-09-2021 10:19-0400 Systolic blood pressure 142 mm[Hg] [facility] Work Phone: 11-09-2021 07:24-0400 Body height 157.48 cm [facility] Work Phone: 11-09-2021 07:24-0400 Body mass index (BMI) [Ratio] 38.8 kg/m2 [facility] Work Phone: 11-09-2021 07:24-0400 Body weight 96.3 kg [facility] Work Phone: 10-23-2021 11:02-0400 Body height 160 cm Jaylan Syed MD Work Phone: [facility] 10-23-2021 11:02-0400 Body weight 96.16 kg Jaylan Syed MD Work Phone: [facility] 10-23-2021 11:02-0400 Diastolic blood pressure 96 mm[Hg] Jaylan Syed MD Work Phone: [facility] 10-23-2021 11:02-0400 Heart rate 96 /min Jaylan Syed MD Work Phone: [facility] 10-23-2021 11:02-0400 Respiratory rate 16 /min Jaylan Syed MD Work Phone: [facility] 10-23-2021 11:02-0400 Systolic blood pressure 142 mm[Hg] Jaylan Syed MD Work Phone: [facility] 10-10-2021 11:35-0400 Diastolic blood pressure 92 mm[Hg] Jaylan Syed MD Work Phone: [facility] 10-10-2021 11:35-0400 Systolic blood pressure 136 mm[Hg] Jaylan Syed MD Work Phone: [facility] 09-19-2021 09:13-0400 Body height 160 cm Jaylan Syed MD Work Phone: [facility] 09-19-2021 09:13-0400 Body weight 97.07 kg Jaylan Syed MD Work Phone: [facility] 09-19-2021 09:13-0400 Diastolic blood pressure 96 mm[Hg] Jaylan Syed MD Work Phone: [facility] 09-19-2021 09:13-0400 Systolic blood pressure 148 mm[Hg] Jaylan Syed MD Work Phone: [facility] 07-31-2021 10:47-0400 Diastolic blood pressure 90 mm[Hg] Mena Vernon MD Work Phone: [facility] 07-31-2021 10:47-0400 Heart rate 70 /min Mena Vernon MD Work Phone: [facility] 07-31-2021 10:47-0400 Systolic blood pressure 142 mm[Hg] Mena Vernon MD Work Phone: [facility] 07-27-2021 15:59-0400 Diastolic blood pressure 75 mm[Hg] [facility] Work Phone: 07-27-2021 15:59-0400 SaO2% (BldA) [Mass fraction] 95 % [facility] Work Phone: 07-27-2021 15:59-0400 Systolic blood pressure 141 mm[Hg] [facility] Work Phone: 07-27-2021 12:03-0400 Body height 157.48 cm [facility] Work Phone: 07-27-2021 12:03-0400 Body mass index (BMI) [Ratio] 36.6 kg/m2 [facility] Work Phone: 07-27-2021 12:03-0400 Body temperature 97.6 [degF] [facility] Work Phone: 07-27-2021 12:03-0400 Body weight 90.71 kg [facility] Work Phone: 07-27-2021 12:03-0400 Heart rate 104 /min [facility] Work Phone: 07-27-2021 12:03-0400 Respiratory rate 18 /min [facility] Work Phone: Encounters Encounter Date Encounter Type Care Provider Facility Start: 12-03-2024 End: 12-03-2024 ambulatory Mena Nicolas Vernon Facility:[facility] Start: 12-03-2024 End: 12-03-2024 Emergency department patient visit Mena Nicolas Vernon Facility:[facility] Start: 11-12-2024 End: 11-15-2024 Refill Mena Vernon MD Work Phone: [facility] [place] Comment on above: Refill Request Start: 11-09-2024 End: 11-09-2024 Telephone encounter Mena Vernon MD Work Phone: [facility] [place] Comment on above: FMLA form Start: 08-10-2024 End: 08-10-2024 Patient encounter procedure Sergio Mcfarland DO [facility] Work Phone: Start: 08-10-2024 End: 08-10-[address] Mena Vernon MD Work Phone: [facility] Work Phone: Start: 08-10-2024 End: 08-10-2024 ambulatory Mena Vernon Facility:[facility] Start: 08-03-2024 End: 10-03-2024 Follow-up encounter Jaylan Syed MD Work Phone: OB/Gynecology Start: 07-28-2024 End: 07-28-2024 ambulatory MENA VERNON Facility:[facility] Start: 07-23-2024 End: 07-23-2024 Telephone encounter Patricia Grimes MD Work Phone: [facility] Comment on above: Appointment Start: 07-21-2024 End: 07-21-2024 Patient encounter procedure Jaylan Syed MD Work Phone: OB/Gynecology Comment on above: Encounter for gyneco logical examination (general) (routine) without abnormal findings (Primary Dx); Screening for cervical cancer; Encounter for screening for human papillomavirus (HPV); BMI 38.0-38.9,adult Start: 07-21-2024 End: 07-21-2024 Patient encounter status Jaylan Syed MD Work Phone: [facility] Start: 07-21-2024 End: 07-21-2024 ambulatory JAYLAN SYED Facility:[facility] Start: 07-21-2024 Encounter for gynecological examination (general) (routine) without abnormal findings JAYLAN SYED [facility] Start: 07-12-2024 End: 07-12-[address] Mena Vernon MD Work Phone: [facility] Work Phone: Start: 07-12-2024 End: 07-12-[address] Tristen Harrison DO -Laboratory Work Phone: Start: 07-12-2024 End: 07-12-2024 ambulatory Tristen Harrison Facility:[facility] Start: 07-05-2024 Non-patient / Non-visit Dr. Beltre -[facility] Work Phone: Start: 07-05-2024 Non-patient / Non-visit Dr. Aman Austin MD -[facility] Start: 07-04-2024 ambulatory Juan Hdez Facility: [facility] Start: 07-04-2024 End: 07-05-2024 Evaluation and management of inpatient Dr. Juan Hdez MD -Medical [facility] 3 Work Phone: Start: 05-23-2024 End: 05-24-2024 ambulatory Mena eVrnon MD Work Phone: [facility] [place] Comment on above: PA ISSUE! Start: 05-17-2024 End: 05-25-2024 Telephone encounter Mena Vernon MD Work Phone: [facility] [place] Comment on above: Insurance Authorizat ion Start: 04-19-2024 End: 04-19-2024 ambulatory MENA VERNON Facility:[facility] Start: 04-19-2024 End: 04-19-2024 [facility] Start: 04-19-2024 End: 04-19-2024 Office outpatient visit 25 minutes Mena Vernon MD Work Phone: [facility] [place] Comment on above: Attention deficit hy peractivity disorder (ADHD), unspecified ADHD type (Primary Dx); Essential (primary) hypertension; Iron deficiency anemia, unspecified iron deficiency anemia type; Radiculopathy, thoracic region; Encounter for long-term current use of medication; Obesity, Class II, BMI 35-39.9 Start: 04-14-2024 End: 04-14-2024 ambulatory MENA VERNON Facility:[facility] Start: 04-14-2024 End: 04-14-2024 Patient encounter procedure Aliza Mcnamara APRN.BIOMETRICS SPECIALIST Work Phone: [facility] Comment on above: Viral URI (Primary D x); Acute cough Start: 02-02-2024 End: 02-02-2024 Refill Mena Vernon MD Work Phone: [facility] [place] Comment on above: Refill Request Start: 12-03-2023 End: 12-03-2023 Telephone encounter Mena Venron MD Work Phone: [facility] [place] Comment on above: Insurance Authorizat ion Start: 11-07-2023 End: 11-07-2023 ambulatory DIEGO FOX MD Facility:[facility] Start: 11-07-2023 End: 11-07-2023 Patient encounter procedure DIEGO FOX MD [facility] Start: 11-05-2023 End: 11-05-2023 Emergency department patient visit DIEGO FOX MD [facility] Start: 11-05-2023 End: 11-05-2023 Patient encounter procedure Joanie Pak APRN.BIOMETRICS SPECIALIST Work Phone: [facility] Comment on above: Right upper [...] comorbidity present Start: 10-03-2023 Refill Karol Vergara BIOLOGY LABORATORY ASSISTANT.BIOMETRICS SPECIALIST Work Phone: [facility] [place] Comment on above: Refill Request Start: 09-03-2023 Refill Karol Vergara BIOLOGY LABORATORY ASSISTANT.BIOMETRICS SPECIALIST Work Phone: [facility] [place] Comment on above: Refill Request Start: 08-31-2023 End: 08-31-2023 Patient encounter procedure Madhu Ames APRN.BIOMETRICS SPECIALIST Work Phone: [facility] Comment on [...] Mena rubio MD Work Phone: [facility] [place] Comment on above: Medication Problem ( Adderall) Medication Problem Start: 06-20-2023 Telephone encounter Jaylan Syed MD Work Phone: OB/Gynecology Comment on above: Vaginal Problem Start: 05-29-2023 End: 05-29-2023 Subsequent hospital visit by physician Xr [facility] [place] Work Phone: Radiology Comment on above: Acute [...] Mena rubio MD Work Phone: [facility] [place] Comment on above: Patient Question Start: 01-21-2023 ambulatory Mena gamboa MD Work Phone: [facility] [place] Comment on above: Medication change re quest Start: 01-09-2023 ambulatory Adilene eli MD Work Phone: Endocrinology Comment on above: Urgent Rx side effec ts Start: 11-14-2022 Refill Karol Vergara APRN.CNP Work Phone: [facility] [place] Comment on above: Refill Request Start: 10-22-2022 [...] encounter status Jaylan Syed MD Work Phone: [facility] Work Phone: Start: 07-17-2022 Refill Jaylan chung MD Work Phone: OB/Gynecology Comment on above: Refill Request Start: 07-15-2022 Telephone encounter Jaylan Syed MD Work Phone: OB/Gynecology Comment on above: Vaginal Problem Patient Update; Medi cation Request Start: 07-11-2022 Telephone encounter Mena rubio MD Work Phone: [facility] [place] Comment on above: Medication Problem ( Lexapro ) Start: 07-10-2022 End: 07-10-2022 Office outpatient visit 25 minutes Mena eVrnon MD Work Phone: [facility] [place] Comment on above: Attention deficit hy peractivity disorder (ADHD), unspecified ADHD type (Primary Dx); Anxiety and depression; Dry eyes Start: 06-22-2022 End: 06-22-2022 Emergency department patient visit [facility] Start: 04-23-2022 Telephone encounter Mena rubio [...] Patient encounter procedure Elizabeth LIEBERMAN Work Phone: [facility] Comment on above: URI, acute (Primary Dx); Nausea Start: 03-19-2022 Telephone encounter Mena rubio MD Work Phone: [facility] [place] Comment on above: Medication Problem Start: 02-15-2022 ambulatory VENITA NAIR Facility: [facility] Start: 02-15-2022 End: 02-15-2022 Subsequent hospital visit by physician Venita Nair BIOLOGY LABORATORY ASSISTANT-BIOMETRICS SPECIALIST Work Phone: [facility] [place] Comment on above: Arrived Start: 02-15-2022 End: 02-15-2022 Office outpatient new 45 minutes Venita Nair BIOLOGY LABORATORY ASSISTANT-BIOMETRICS SPECIALIST Work Phone: [facility] [place] Comment on above: Breast pain (Primary Dx); Mass of right breast, unspecified quadrant Start: 01-28-2022 Telephone encounter Mena rubio MD Work Phone: [facility] [place] Comment on above: fax orders to [facility] Patient Question Start: 01-28-2022 End: 01-28-2022 Patient encounter procedure Kayla Ferrer MD Work Phone: OB/Gynecology Comment on above: Breast pain (Primary Dx); Large breasts Start: 01-15-2022 Telephone encounter Mena rubio MD Work Phone: [facility] [place] Comment on above: Appointment Start: 12-31-2021 Refill Mena gamboa MD Work Phone: [facility] [place] Comment on above: Refill Request (que ent wants brand name Adderall rx) Start: 12-28-2021 Telephone encounter Mena rubio MD Work Phone: [facility] [place] Comment on above: Med Change Request Start: 11-26-2021 ambulatory Mena gamboa MD Work Phone: [facility] [place] Comment on above: Rx Question Start: 11-09-2021 End: 11-09-2021 ambulatory Jaylan Syed MD Work Phone: [facility] Work Phone: Comment on above: Encounter for steril ization (Primary Dx) Start: 11-09-2021 Patient encounter procedure Jaylan Syed MD Work Phone: [facility] Start: 11-09-2021 End: 11-09-2021 Admission to same day surgery center [facility] Day [facility] Start: 10-31-2021 End: 10-31-2021 Office outpatient visit 40 minutes Mena Vernon MD Work Phone: [facility] [place] Comment on above: Attention deficit hy peractivity [...] Mena rubio MD Work Phone: [facility] [place] Comment on above: Medication Question Start: 10-10-2021 [...] Mena gamboa MD Work Phone: [facility] [place] Comment on above: Refill Request Start: 08-09-2021 ambulatory Mena gamboa MD Work Phone: [facility] [place] Comment on above: Barky Cough Start: 07-31-2021 End: 07-31-2021 Office outpatient visit 40 minutes Mena Vernon MD Work Phone: [facility] [place] Comment on above: Attention deficit hy peractivity disorder (ADHD), unspecified ADHD type (Primary Dx); Tremor; Eyelid twitch; Acne vulgaris; Class 2 obesity due to excess calories with body mass index (BMI) of 37.0 to 37.9 in adult, unspecified whether serious comorbidity present Start: 07-27-2021 End: 07-27-2021 Emergency department patient visit [facility]Emergency Department Procedures Date Procedure Procedure [...] 08-31-2023 STREP A MOLECULAR (POC) Albert Gutierrez APRN.BIOMETRICS SPECIALIST Work Phone: Start: 05-29-2023 Radiologic exam ches t 2 views Shima Barney PA-C Work Phone: Start: 02-15-2022 Us breast uni real t haile with image limited Venita Nair BIOLOGY LABORATORY ASSISTANT-BIOMETRICS SPECIALIST Work Phone: Start: 02-15-2022 Diagnostic mammograp hy computer-aided detcj bi Venita Nair BIOLOGY LABORATORY ASSISTANT-BIOMETRICS SPECIALIST Work Phone: Start: 11-09-2021 Laparoscopic salpingectomy Start: 10-10-2021 Urine test visual color cmprsn meths Jaylan Syed MD Work Phone: Start: 07-31-2021 Adult depression scr eening assessment Mena Vernon MD Work Phone: Plan of Treatment Date Care Activity Detail Author Start: 07-21-2029 Screening for malignant neoplasm of cervix Cervical Cancer Screening [facility] Start: 12-08-2028 Tetanus vaccination [facility] Start: 12-08-2028 Urine microalbumin profile [place] [facility] Start: 07-28-2025 Annual PCP Team Chronic Disease Visit Annual PCP Team Chronic Disease Visit [facility] Start: 07-22-2025 End: 07-22-2025 Patient encounter procedure 07/22/2025 1:40 PM EDT Office Visit OB/Gynecology [address] [place] [id number] Jaylan Syed MD [address] [place] [address] annual OB/Gynecology Comment on above: annual Start: 07-04-2025 HPV TESTING HPV TESTING [facility] Start: 07-04-2025 PAP TESTING PAP TESTING [facility] Start: 07-04-2025 Screening for malignant neoplasm of cervix [facility] Start: 04-19-2025 Annual PCP Team Chronic Disease Visit Annual PCP Team Chronic Disease Visit [facility] Start: 04-19-2025 BP Controlled (<130/80) BP Controlled (<130/80) [facility] Start: 04-04-2025 End: 04-04-2025 Patient encounter procedure 04/04/2025 2:40 PM EST Office Visit [facility] [place] [address] [place] [address] Mena Vernon MD [address] [place] [address] 3 month f/u [facility] [place] Comment on above: 3 month f/u Start: 11-18-2024 End: 11-18-2024 Patient encounter procedure 11/18/2024 9:20 AM EDT Office Visit OB/Gynecology [address] [place] [id number] Kayla Denny MD [address] [place] [address] Ovarian cyst found on hospital stay, unrelated iss OB/Gynecology Comment on above: Ovarian cyst found on hospital stay, unr elated iss Start: 11-08-2024 Influenza vaccination [facility] Start: 10-27-2024 End: 10-27-2024 Patient encounter procedure 10/27/2024 10:40 AM EDT Office Visit [facility] [place] [address] [facility] [place] [address] Mena Vernon MD [address] [place] [address] 3 month f/u [facility] [place] Comment on above: 3 month f/u Start: 10-02-2024 Annual PCP Team Chronic Disease Visit Annual PCP Team Chronic Disease Visit [facility] Start: 09-06-2024 [facility] Comment on [facility]: Postponed from 11/09/2023 (Declined at t his time) Start: 08-10-2024 C reactive protein [Mass/volume] in Serum or Plasma [facility] Start: 08-10-2024 CBC W Auto Differential panel - Blood [facility] Start: 08-10-2024 Comprehensive metabolic 2000 panel - Serum or Plasma [facility] Start: 08-10-2024 Erythrocyte sedimentation rate [facility] Start: 07-28-2024 End: 07-28-2024 Patient encounter procedure 07/28/2024 9:20 AM EDT Office Visit [facility] [place] [address] [facility] [place] [address] Mena Vernon MD [address] [place] [address] 3 month follow up [facility] [place] Comment on above: 3 month follow up Start: 07-23-2024 End: 07-23-2024 Patient encounter procedure 07/23/2024 9:20 AM EDT Office Visit [facility] [place] [address] [facility] [place], [place] [address] Mena Vernon MD [address] [facility] [place] [address] 3 month follow up [facility] [place] Comment on above: 3 month follow up Start: 07-21-2024 End: 07-21-2024 Patient encounter procedure 07/21/2024 4:00 PM EDT Office Visit OB/Gynecology [address] [facility] [place] [place] [address] Jaylan Syed MD [address] [facility] [place] [address] Annual visit OB/Gynecology Comment on above: Annual visit Start: 07-20-2024 End: 07-20-2024 Patient encounter procedure 07/20/2024 8:20 AM EDT Office Visit [facility] [place] [address] [place] [address] Mena Vernon MD [address] [facility] [place] [address] 3 month follow up [facility] [place] Comment on above: 3 month follow up Start: 07-05-2024 Patient discharge [facility] Start: 07-05-2024 Cytomegalovirus IgM antibody assay [facility] Start: 07-05-2024 Immunoglobulin measurement [facility] Start: 07-05-2024 Laboratory test [facility] Start: 07-05-2024 Serum immunofixation [facility] Start: 07-05-2024 End: 07-05-2024 [facility] Start: 07-04-2024 Following clinical pathway protocol [facility] Start: 07-04-2024 Assessment of risk of venous thromboembolism [facility] Start: 07-04-2024 Incentive spirometry [facility] Start: 07-04-2024 Insertion of catheter into peripheral vein [facility] Start: 07-04-2024 Measuring intake and output [facility] Start: 07-04-2024 Oxygen therapy [facility] Start: 07-04-2024 Providing care according to standard [facility] Start: 07-04-2024 Referral to gastroenterology service [facility] Start: 07-04-2024 Referral to general surgeon [facility] Start: 07-04-2024 [facility] Start: 07-04-2024 Verification routine [facility] Start: 07-04-2024 Hospital admission, emergency, from emergency room, medical nature [facility] Start: 07-04-2024 Admission procedure [facility] Start: 07-04-2024 End: 07-04-2024 [facility] Start: 07-04-2024 Gamma glutamyl transferase measurement [facility] Start: 04-22-2024 Hepatitis B Vaccine (1 of 3 - 19+ 3-dose series) Hepatitis B Vaccine (1 of 3 - 19+ 3-dose series) [facility] Comment on above: Postponed from 08/14/2006 (Declined at t his time) Start: 04-22-2024 Hepatitis B Vaccine (1 of 3 - 3-dose series) Hepatitis B Vaccine (1 of 3 - 3-dose series) [facility] Comment on above: Postponed from 1987 (Declined at t his time) Start: 04-19-2024 End: 07-19-2024 CBC panel - Blood by Automated count [facility] Comment on above: Expected: 04/19/2024, Expires: Start: 04-19-2024 End: 07-19-2024 Comprehensive metabolic 2000 panel - Serum or Plasma [facility] Work Phone: Comment on above: Expected: 04/19/2024, Expires: Start: 04-19-2024 End: 07-19-2024 Ferritin [Mass/volume] in Serum or Plasma [facility] Comment on above: Expected: 04/19/2024, Expires: Start: 04-19-2024 End: 07-19-2024 Iron and Iron binding capacity panel - Serum or Plasma [facility] Comment on above: Expected: 04/19/2024, Expires: Start: 04-19-2024 End: 07-19-2024 Lipid 1996 panel - Serum or Plasma [facility] Comment on above: Expected: 04/19/2024, Expires: Start: 04-19-2024 End: 04-19-2024 Patient encounter procedure 04/19/2024 8:40 AM EST Office Visit [facility] [place] [address] [facility] [place] [address] Mena Vernon MD [address] [facility] [place] [address] 3 month follow up [facility] [place] Comment on above: 3 month follow up Start: 01-13-2024 End: 01-13-2024 Patient encounter procedure 01/13/2024 8:20 AM EST Office Visit [facility] [place] [address] [facility] [place] [address] Mena Vernon MD [address] [facility] [place] [address] 3 month follow up [facility] [place] Comment on above: 3 month follow up Start: 11-09-2023 Influenza vaccination [facility] Start: 10-24-2023 End: 10-24-2023 Patient encounter procedure 10/24/2023 9:00 AM EDT Office Visit OB/Gynecology [address] [place] [address] Jaylan Syed MD [address] [facility] [place] [address] annual OB/Gynecology Comment on above: annual Start: 10-03-2023 End: 10-03-2023 Patient encounter procedure 10/03/2023 4:20 PM EDT Office Visit [facility] [place] [address] [place] [address] Mena Vernon MD [address] [place] [address] 3 month follow up [facility] [place] Comment on above: 3 month follow up Start: 09-07-2023 Influenza [facility] above: Postponed from 11/08/2022 (Declined at t his time) Start: 04-10-2023 COVID-19 VACCINE (3 - Booster for Pfizer series) COVID-19 VACCINE (3 - Booster for Pfizer series) [facility] Comment on above: Postponed from 04/04/2021 (Declined at t his time) Start: 04-10-2023 COVID-19 VACCINE (3 - Pfizer series) COVID-19 VACCINE (3 - Pfizer series) [facility] Comment on above: Postponed from 04/04/2021 (Declined at t his time) Start: 04-10-2023 HEPATITIS B (1 of 3 - 3-dose series) HEPATITIS B (1 of 3 - 3-dose series) [facility] Comment on above: Postponed from 1987 (Declined at t his time) Start: 04-10-2023 Hepatitis B Vaccine (1 of 3 - 3-dose series) Hepatitis B Vaccine (1 of 3 - 3-dose series) [facility] Comment on above: Postponed from 1987 (Declined at t his time) Start: 11-08-2022 Covid-19 Vaccine ( season) Covid-19 Vaccine ( season) [facility] Start: 11-08-2022 Influenza vaccination [facility] Start: 09-06-2022 Influenza vaccination INFLUENZA (#1) [facility] Comment on above: Postponed from 11/08/2021 (Declined at t his time) Start: 07-31-2022 Adult depression screening assessment DEPRESSION SCREENING [facility] Start: 11-09-2021 Patient discharge [facility] Work Phone: Start: 11-09-2021 Ambulation without limitation [facility] Work Phone: Start: 11-09-2021 Medical regimen orders management [facility] Work Phone: Start: 11-09-2021 Medication education [facility] Work Phone: Start: 11-09-2021 Procedure discontinued [facility] Work Phone: Start: 11-09-2021 Taking patient vital signs [facility] Work Phone: Start: 11-09-2021 Vital signs measurements [facility] Work Phone: Start: 11-09-2021 [facility] Work Phone: Start: 11-08-2021 Influenza vaccination [facility] Start: 09-19-2021 End: 11-19-2021 Thyrotropin [Units/volume] in Serum or Plasma [facility] Work Phone: Comment on above: Expected: 09/19/2021, Expires: Start: 07-08-2021 COVID-19 VACCINE (3 - Booster for Pfizer series) COVID-19 VACCINE (3 - Booster for Pfizer series) [facility] Start: 04-04-2021 COVID-19 VACCINE (3 - Booster for Pfizer series) COVID-19 VACCINE (3 - Booster for Pfizer series) [facility] Start: 08-14-2014 HPV Vaccine (1 - 3-dose SCDM series) HPV Vaccine (1 - 3-dose SCDM series) [facility] Start: 08-14-2008 Screening for malignant neoplasm of cervix CERVICAL CANCER SCREENING DISCUSSION [facility] Start: 08-14-2006 Hepatitis B Vaccine (1 of 3 - 19+ 3-dose series) Hepatitis B Vaccine (1 of 3 - 19+ 3-dose series) [facility] Start: 08-14-2005 BP Controlled (<130/80) BP Controlled (<130/80) [facility] Start: 08-14-2005 HEPATITIS C SCREENING HEPATITIS C SCREENING [facility] Start: 08-14-2002 HIV screening HIV SCREENING DISCUSSION [facility] Start: 1987 HEPATITIS B (1 of 3 - 3-dose series) HEPATITIS B (1 of 3 - 3-dose series) [facility] Start: 1987 Hepatitis C screening HEPATITIS C VIRUS SCREENING [facility] Alanine aminotransfe rase [Enzymatic activity/volume] in Serum or Plasma [facility] Albumin [Mass/volume ] in Serum or Plasma [facility] Albumin [Moles/volum e] in Serum or Plasma [facility] Albumin/Globulin ratio [facility] Alkaline phosphatase [Enzymatic activity/volume] in Serum or Plasma [facility] Anion gap in Serum o r Plasma [facility] Bilirubin, total measurement [facility] BUN/Creatinine ratio [facility] Calcium [Mass/volume ] in Serum or Plasma [facility] Carbon dioxide, tota l [Moles/volume] in Central venous blood [facility] Chitobioside IgA Ab [Units/volume] in Serum or Plasma by Immunoassay [facility] Creatinine [Mass/vol ume] in Serum or Plasma [facility] End: 02-27-2023 Diagnostic mammography computer-aided detcj bi [facility] DIAGNOSTIC BILAT Radiology Routine Breast pain Large breasts 1 Occurrences starting 01/28/2022 until 02/27/2023 [facility] Work Phone: Comment on above: 1 Occurrences starting 01/28/2022 until 02/27/2023 Electrophoresis: [id number] [facility] Electrophoresis: alexa ma globulin [facility] Endometrial bx w/wo endocervix bx w/o dilat spx ENDOMETRIAL BIOPSY Procedures Routine Menorrhagia with regular cycle Ordered: 09/19/2021 [facility] Work Phone: Comment on above: Ordered: 09/19/2021 Eboni Alcala virus c apsid IgG Ab [Units/volume] in Serum [facility] Eboni Alcala virus c apsid IgM Ab [Units/volume] in Serum [facility] Eboni Alcala virus n uclear IgG Ab [Units/volume] in Cerebral spinal fluid [facility] Eboni-Alcala virus serologic test [facility] Gliadin peptide IgA Ab [Units/volume] in Serum [facility] Gliadin peptide IgG Ab [Units/volume] in Serum [facility] Globulin measurement [facility] Glucose [Mass/volume ] in Serum or Plasma [facility] Hepatic function panel [facility] Hepatitis A virus Ig M Ab [Presence] in Serum [facility] Hepatitis B core ant ibody measurement, IgM type [facility] Hepatitis B surface antigen measurement [facility] Hepatitis C antibody measurement [facility] IgA [Mass/volume] in Serum or Plasma [facility] IgE [Units/volume] i n Serum or Plasma [facility] IgG [Mass/volume] in Serum or Plasma [facility] IgG subclass 1 [Mass/volume] in Serum [facility] IgG subclass 2 [Mass/volume] in Serum [facility] IgG subclass 3 [Mass/volume] in Serum [facility] IgG subclass 4 [Mass/volume] in Serum [facility] IgM [Mass/volume] in Serum or Plasma [facility] Laboratory data interpretation [facility] Laminaribioside IgG Ab [Units/volume] in Serum or Plasma by Immunoassay [facility] Mannobioside IgG Ab [Units/volume] in Serum or Plasma by Immunoassay [facility] Measurement of funga l antibody [facility] Measurement of immunoglobulin A in serum specimen [facility] Measurement of renal function [facility] Mitochondria Ab [Pre sence] in Serum [facility] Neutrophil cytoplasm ic Ab.classic [Units/volume] in Serum [facility] Neutrophil cytoplasm ic Ab.perinuclear.atypical [Titer] in Serum by Immunofluorescence [facility] P-ANCA measurement [facility] PAP TEST PAP TEST Lab Rou satish Screening for cervical cancer Encounter for screening for human papillomavirus (HPV) Ordered: 07/21/2024 [facility] Work Phone: Comment on above: Ordered: 07/21/2024 Patient Education [facility] Work Phone: Patient referral [facility] Work Phone: PELVIC US I PELVIC US I An c Imaging Routine Menorrhagia with regular cycle Ordered: 09/19/2021 [facility] Work Phone: Comment on above: Ordered: 09/19/2021 Potassium measurement [facility] Protein electrophore sis panel - Serum or Plasma [facility] Serum chloride measurement [facility] Smooth muscle Ab [Pr esence] in Serum [facility] Sodium measurement [facility] SURGICAL PATHOLOGY SURGICAL PATH OLOGY Lab Routine Menorrhagia with regular cycle Ordered: 10/10/2021 [facility] Work Phone: Comment on above: Ordered: 10/10/2021 Tissue transglutamin ase IgA Ab [Units/volume] in Serum [facility] Total protein measurement [facility] TOX SCREEN ROUT UR TOX SCREEN RO UT UR Lab Routine Encounter for long-term current use of medication Ordered: 04/10/2022 [facility] Work Phone: Comment on above: Ordered: 04/10/2022 Urea nitrogen [Mass/ volume] in Serum or Plasma [facility] End: 02-27-2023 Us breast uni real time with image limited US BREAST LTD RT Radiology Routine Breast pain Large breasts 1 Occurrences starting 01/28/2022 until 02/27/2023 [facility] Work Phone: Comment on above: 1 Occurrences starting 01/28/2022 until 02/27/2023 [facility] Immunizations Immunization Date Immunization Notes Care Provider Brenda roldan 02-07-2021 influenza, injectabl e, quadrivalent, preservative free Mena Vernon MD Work Phone: [facility] 02-07-2021 influenza virus vaccine, unspecified formulation Venita Nair BIOLOGY LABORATORY ASSISTANT-BIOMETRICS SPECIALIST Work Phone: [facility] 12-08-2018 Influenza virus vaccine [facility] 12-08-2018 influenza, injectabl e, quadrivalent, preservative free Mena Vernon MD Work Phone: [facility] 12-08-2018 influenza, seasonal, injectable, preservative free Mena Vernon MD Work Phone: [facility] 12-08-2018 tetanus toxoid, redu tenisha diphtheria toxoid, and acellular pertussis vaccine, adsorbed [facility] 11-26-2018 influenza, injectabl e, quadrivalent, contains preservative Mena Vernon MD Work Phone: [facility] 11-11-2018 tetanus toxoid, redu tenisha diphtheria toxoid, and acellular pertussis vaccine, adsorbed Mena Vernon MD Work Phone: [facility] Work Phone: 03-12-2016 tetanus toxoid, redu tenisha diphtheria toxoid, and acellular pertussis vaccine, adsorbed Mena Vernon MD Work Phone: [facility] 02-08-2014 tetanus toxoid, redu tenisha diphtheria toxoid, and acellular pertussis vaccine, adsorbed Mena Vernon MD Work Phone: [facility] Payers Date Payer Category Payer Self-pay [id number] 2022 Unknown [id number] 2019 Medicaid [employer] [facility] [id number] 2019-Present [phone] [address] [place] [address] Medicaid [id number] 2019 Medicaid [id number] 2015 Unknown [id number] 2015 Unknown [id number] 1987 Unknown [id number] 1987 Unknown [id number] 1987 Unknown [id number] 1987 Unknown [id number] 1987 Unknown [id number] Self-pay SELF PAY INSURANCE [id number] Unknown [id number] Unknown [id number] Unknown [id number] [id number] Unknown [id number] Unknown [id number] Unknown [id number] Unknown [id number] Unknown [id number] Unknown [id number] Unknown [id number] Social History Date Type Detail Facility [facility] Work Phone: Start: 07-27-2021 End: 06-22-2022 Tobacco smoking status [facility] Unknown if ever smoked [facility] Start: 01-18-2019 None [facility] Start: 1985 Sex Assigned At Female [facility] Start: 12-28-2014 End: 07-21-2024 Tobacco smoking status ALIS Ex-smoker [facility] End: 06-03-2008 History of tobacco use Current smoker [facility] End: 06-03-2008 History of tobacco use Cigarette Smoker [facility] Start: 12-28-2014 End: 07-21-2024 Tobacco use and exposure Smokeless tobacco non-user [facility] Start: 07-31-2021 End: 07-21-2024 Alcohol intake Current non-drinker of alcohol (finding) [facility] Start: 04-30-2021 End: 07-10-2022 History SDOH Alcohol Frequency 3 [facility] Start: 04-30-2021 End: 07-10-2022 History SDOH Alcohol Std Drinks 1 [facility] Start: 04-30-2021 End: 07-10-2022 History SDOH Social Connections Membership 2 [facility] Start: 04-30-2021 History SDOH Physica l Activity MPS 6 [facility] Start: 04-30-2021 History SDOH Financial 4 [facility] Start: 11-23-2019 Education 21 [facility] Start: 11-09-2013 End: 01-28-2022 Tobacco Comment 2 Cigarettes per week [facility] Start: 1985 Sex Assigned At Not on file [facility] Start: 07-21-2021 End: 02-15-2022 Exposure to SARS-CoV-2 (event) Not sure [facility] Start: 02-15-2022 Alcohol intake Current drinke r of alcohol (finding) [facility] Start: 07-10-2022 History SDOH Social Connections Phone 5 [facility] Start: 07-10-2022 End: 11-12-2024 History of Social function [facility] Start: 07-10-2022 End: 11-12-2024 Social connection and isolation panel [facility] Do you belong to any clubs or organizations such as evangelical groups, unions, fraternal or athletic groups, or school groups? No [facility] Are you now , , , , never or living with a partner? [facility] How often to you hav e a drink containing alcohol? 2-4 times a month [facility] How many standard dr inks containing alcohol do you have on a typical day? 1 or 2 [facility] How often do you hav e 6 or more drinks on 1 occasion? Never [facility] How hard is it for y ou to pay for the very basics like food, housing, medical care, and heating Somewhat hard [facility] Start: 02-09-2012 Adult Depression Screening Assessment 1 [facility] Do you feel stress - tense, restless, nervous, or anxious, or unable to sleep at night because your mind is troubled all the time - these days [OSQ] Only a little [facility] (I/We) worried wheth er (my/our) food would run out before (I/we) got money to buy more. Never true [facility] In the past 12 month s, was there a time when you were not able to pay the mortgage or rent on time? Yes [facility] Start: 09-13-2021 Gender identity Identifies as female gender (finding) [facility] Start: 07-04-2024 End: 07-05-2024 Sex Female (finding) [facility] How often to you hav e a drink containing alcohol? Monthly or less [facility] Do you feel stress - tense, restless, nervous, or anxious, or unable to sleep at night because your mind is troubled all the time - these days [OSQ] To some extent [facility] NEGATED: Highlighted row [facility] NEGATED: Highlighted row Not [facility] Goals Date Patient Goal Desired Activity /State Functional Status Date Assessment Result Facility 11-12-2024 Total score [AUDIT-C] 1 11/13/19 11:16 AM EDT User, Mag [facility] 11-12-2024 How often to you hav e a drink containing alcohol? Monthly or less 11/12/2024 11:16 AM EDT User, Mag Monthly or less [facility] 11-12-[address] inks containing alcohol do you have on a typical day? 1 or 2 11/12/2024 11:16 AM EDT User, Asiat 1 or 2 [facility] 11-12-2024 How often do you hav e 6 or more drinks on 1 occasion? Never 11/12/2024 11:16 AM EDT User, Mychart Never [facility] 07-05-2024 Functional status Ambulates;Up ad maikol [facility] Work Phone: 11-05-2023 Functional Status Independent [facility] Saad sarmiento [facility] 11-05-2023 Functional Status Standard Safet y ID band on, Call device within reach, Bed in low position, Wheels locked, Upper/Half-Length side-rails up, personal items within reach, Bedside Cart Locked, Visitor at bedside [facility] 09-16-2014 Are you deaf, or do you have serious difficulty hearing No 09/16/2014 4:09 PM EDT Namrata Miguel Cma No [facility] 09-16-2014 Are you blind, or do you have serious difficulty seeing, even when wearing glasses No 09/16/2014 4:09 PM EDT Namrata Miguel Cma [facility] 09-16-2014 Do you have serious difficulty walking or climbing stairs No 09/16/2014 4:09 PM EDT Namrata Miguel Cma [facility] 09-16-2014 Do you have difficul ty dressing or bathing No 09/16/2014 4:09 PM EDT Namrata Miguel Cma [facility] 09-16-2014 Because of a physica l, mental, or emotional condition, do you have difficulty doing errands alone such as visiting a physician's office or shopping No 09/16/2014 4:09 PM EDT Namrata Miguel Cma [facility] Mental Status Date Assessment Result Facility 07-04-2024 Cognitive function Voice/Name [facility] Work Phone: 11-05-2023 Mental Status Orientation Oriented x 4 [facility] 11-05-2023 Mental Status [facility] 11-09-2021 Cognitive function Voice/Name [facility] Work Phone: 09-16-2014 Because of a physica l, mental, or emotional condition, do you have serious difficulty concentrating, remembering, or making decisions No 09/16/2014 4:09 PM EDT Namrata Miguel Cma [facility] Clinical Notes 11-11-2018 to 11-15-2024 Telephone Encounter [...] up. Last had VV July and April. [facility] 11-15-2024 Miscellaneous Notes Formattin g of this [...] 2024 11:51 AM documented in this encounter [facility] 11-12-2024 Telephone encount er Note Prescription Refill [...] Baugh LPN November 12, 2024 11:51 AM [facility] 11-09-2024 Telephone encount er Note Patients (Thien Worley) drops off FMLA form for . Form states that they need to be completed by 11/12/24. Patient is aware that provider is out until 11/12/24. Forms at nurse's desk Closed in error [facility] 11-09-2024 Miscellaneous Notes Formattin g of this note might be different from the original. Patients (Thien Worley) drops off FMLA form for . Form states that they need to be completed by 11/12/24. Patient is aware that provider is out until 11/12/24. Forms at nurse's desk Closed in error documented in this encounter [facility] 08-10-2024 Progress note [facility] 08-03-2024 Progress note Formatting of t his note might be different from the original. Send letter about normal pap if she does not have mychart. Jaylan Syed MD [facility] 08-03-2024 Miscellaneous Notes Send letter about normal pap if she does not have mychart. Jaylan Syed MD documented in this encounter [facility] 07-28-2024 Note HNO ID: [id number] Author: MENA VERNON MD Service: ? Author Type: Physician Type: Progress Notes Filed: 07/28/2024 13:04 Note Text: VIRTUAL VISIT PROGRESS NOTE This is a virtual visit using [employer] Zoom Video Visit. It required patient-provider interaction for the medical decision making as documented below. I have communicated my name and active licensure. The patient's identity and physical location were verified at the time of this visit. Either the patient or their legal patient care representative has been informed of the risks [...] is scheduled to follow up with a fireworks assembler, Dr. Mcfarland, on August 10. During her hospitalization, Liudmila experienced abdominal pain, which has since resolved. She recalls a similar episode in October, during which she was diagnosed with two gallstones at [facility]. She did not experience any pain after that episode and believes she may have passed the stones. Liudmila was kept NPO during her recent hospitalization and expresses frustration with the swgy-xzu-daiji instructions regarding her diet. She was eventually [...] referred to a bariatric specialist by her FAMILY PRACTICE NURSE PRACTITIONER, Dr. Syed, but has not yet pursued [...] SALPINGECTOMY Bilateral 11/09/2021 Laparoscopic B/L Salpingectomy at [facility]-Dr. Syed TONSILLECTOMY PRIMARY/SECONDARY FAMILY HISTORY Problem Relation [...] eyes as needed (more content not included)... [facility] 07-23-2024 Miscellaneous Notes Lvm for pt to c/b and schedule new pt appt with Dr. Grimes for Interested in wt loss and possible surgery per referral request from Dr. Syed. documented in this encounter [facility] 07-23-2024 Telephone encounter Note Lvm for pt to c/b and schedule new pt appt with Dr. Grimes for Interested in wt loss and possible surgery per referral request from Dr. Syed. [facility] 07-21-2024 Note HNO ID: [id number] Author: JAYLAN SYED MD Service: ? Author [...] wasn't her gallbladder. . 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 As applicable, any other physician, advance practice provider, medical student, or other health professional student that will be observing or involved in the sensitive examination for educational or training purposes was discussed with the Patient or Authorized Cracking Still Operator. The Patient or Authorized Cracking Still Operator has agreed to proceed with the sensitive [...] external genitalia normal, normal Bartholin's glands, urethra, Terry's glands, no vulvar lesions, no cervical lesions, [...] Desires wt management referal Jaylan Syed MD [facility] 07-21-2024 History of Presen t illness Narrative Liudmila is a 38 year old who presents for an annual gynecologic exam with complaints, GI issues. Had a hospitalization for abd. pain and dx w/ acute hepatitis as some type. Saw Friend. Not sure what to do now, was told it wasn't her gallbladder. . 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 As applicable, any other physician, advance practice provider, medical student, or other health professional student that will be observing or involved in the sensitive examination for educational or training purposes was discussed with the Patient or Authorized Cracking Still Operator. The Patient or Authorized Cracking Still Operator has agreed to proceed with the sensitive [...] external genitalia normal, normal Bartholin's glands, urethra, Terry's glands, no vulvar lesions, no cervical lesions, [...] Jaylan Syed MD documented in this encounter [facility] 07-05-2024 Consult note [facility] 07-05-2024 Discharge summary [facility] 07-05-2024 Note [facility] Medical Records Department [address] [place] [address] Discharge Summary 07/05/24 1333 MR#: [id number] Acct: [id number] Name: LIUDMILA WORLEY Rep #: [id number] : 1985 38 From: Tristen Harrison DO PCP: Dr. Mena Vernon MD Status:DIS IN Location: [facility] [id number] Providers Date of Admission: 07/04/24 Date of Discharge: 07/05/24 Primary Care Physician: Dr. Mena Vernon MD Consultations 07/04/24 10:59 Consult: Gastroenterology Routine Consulting Provider: [facility] Reason for Consult: acute cholecysitis EMERGENT [...] is a 38-year-old female who presented to [facility] ED on 07/04/2024 with RUQ [...] fluid for ex (more content not included)... [facility] 07-05-2024 Consult note [facility] 07-05-2024 Consult note Note Date/Time July 05, 2024 1:05pm [facility] Medical Records Department [address] [place] [address] Consultation - Surgical 07/05/24 0836 MR#: [id number] Acct: [id number] Name: LIUDMILA WORLEY Rep #:[id number] : 1985 38 From: Veronica Austin MD PCP: Dr. Mena Vernon MD Status:AD M IN Location: [facility] [id number] Assessment & Plan Assessment/Plan (1) Cholelithiasis: (2) [...] be covering tomorrow. Veronica Austin M.D. Pager: [phone] [facility] [address] [place] [address], [facility], [address] [place] [address] Office: [phone] HPI Consult Data Date of Consult: 07/05/24 [...] nausea and vomiting. Patient previously was seeing [facility] in October2023 and did have elevated LFTs at that time as well with the AST and ALT in [id number] the rest of the liver functions were [...] phos still remained mildly elevated at 191. [facility] Medical History Wears glasses Depression Anxiety Alcohol [...] Clarity Clear, Urine pH 7.0, Ur Specific [place] 1.010, Urine Protein 30 H, Urine Glucose [...] Neut % (Auto) 60.3, Lymph % (Auto) 25.2,[place] % (Auto) 9.9, Eos % (Auto) 3.5, [...] sonographic evidence of acute cholecystitis. [facility] 07/04/24 09:26 IMPRESSION: No Acute Findings. Reading [facility] Abdom[facility]/Pelvis CT 07/05/24 06:53 IMPRESSION: Nondistended gallbladder with appearance of edema, gallbladder fossa fluid for example coronal 49 concerning for possible cholecystitis, clinically correlate. No evidence of biliary ductal dilation. Small amount of left lower quadrant and pelvic free fluid. Reading Location: [facility] Charges/Coding Visit Charges Inpatient E&M: 98064 Init Hosp L3 07/05/24 1305 <Electronically signed by Veronica Austin MD> Cosigner Signature (if applicable): CC: Dr. Mena Vernon MD~ Signed [facility] Work Phone: 1(130) 439-278704-28-2025 Radiology Diagnostic study note [facility] Imaging Services [address] [place], [place] [address] Abdomen/Pelvis W IV Cont ONLY MR#: [id number] Acct: [id number] Name: LIUDMILA WORLEY Rep #: [id number] : 1985 F 38 From: Lucien Souza MD PCP: Dr. Mena Vernon MD Status: AD M IN Study:Abdomen/Pelvis W IV Cont ONLY Date of E xam: 07/05/24 Exam# [id number] Ordering Dr: Julissa Mcfarland DO PROCEDURE: ABDOMEN/PELVIS [...] quadrant and pelvic free fluid. Reading Location: [id number] CC: Dr. Mena Vernon MD; Sergio Friend, DO ~ [facility] Shift Lead: Signed [facility]04-27-2025 History and physical note Author Juan Hdez [facility] Note Date/Time July 04, 2024 11: 35am [facility] Medical Records Department [address] [facility] [place] [address] H&P Exam - Hospitalist 07/04/24 1011 MR#: [id number] Acct: [id number] Name: LIUDMILA WORLEY Rep #:[id number] : 1985 38 From: Juan Valenzuela PCP: Dr. Mena Vernon MD Status:AD M IN Location: DE3 [id number] HPI - General General Date of Admission: [...] pain October 2023 and she went to [facility] where she had ultrasound. She was told that she has a gallbladder stone and probably she has elevated transaminases as per Dr. Austin at that time. I tried to log into [employer] to check it but could not. She had right upper quadrant sonogram in ED shows cholelithiasis without features of acute cholecystitis. ED physician consulted and she wanted to admit under medicine with GI consult. [facility] Medical History Wears glasses Depression Anxiety Alcohol [...] 79.3 H, Lymph % (Auto) 12.7 L, Lajas % (Auto) 6.9, Eos % (Auto) 0.4, [...] Clarity Clear, Urine pH 7.0, Ur Specific [place] 1.010, Urine Protein 30 H, Urine Glucose [...] sonographic evidence of acute cholecystitis. Reading Location: [place] [address] Chest X-Ray 07/04/24 09:26 IMPRESSION: No Acute Findings. Reading Location: [facility] Assessment & Plan Assessment/Plan (1) Acute cholecystitis with acute cholangitis: PLAN: Plan This 38-year-old female is being admitted for right upper quadrant colicky pain for 1. Acute cholecystitis with cholelithiasis: [facility] IV fluid. Pain control. Lab evaluation shows normal WBC count,ALT 352 AST 594 elevated. ALP 135. Total bilirubin normal. Lipase normal. Right upper quadrant sonogram shows cholelithiasis with normal GB wall, no pericholecystic fluid. Clinically it seems patient has cholecystitis with biliary colic, Sherwood sign positive and elevated transaminases. ED physician consulted surgeon and wanted GI to see for therefore fireworks assembler consulted. I do not think antibiotic is [...] shock if needed Total time spent in gwps-vk-yqws encounter in discussion of advanced directive 17 minutes. Laboratory Results 07/04/24 06:36: WBC 7.6, RBC 4.65, Hgb 11.9 L, Hct 36.0 L, MCV 77.4 L, MCH 25.6 L, MCHC 33.1, RDW Std Deviation 44.5 H, RDW Coeff of María 15.9 H, Plt Count 312, MPV 10.0, Immature Gran % (Auto) 0.400, Neut % (Auto) 79.3 H, Lymph % (Auto) 12.7 L, Lajas % (Auto) 6.9, Eos % (Auto) 0.4, [...] Clarity Clear, Urine pH 7.0, Ur Specific [place] 1.010, Urine Protein 30 H, Urine Glucose [...] sonographic evidence of acute cholecystitis. [facility] 07/04/24 09:26 IMPRESSION: No Acute Findings. Reading Location: [facility] Charges/Coding Visit Charges Inpatient E&M: 84946 Init Hosp L3 Procedures Hospitalists Procedures: 01997 Advncd Care Plan 30 Min 07/04/24 1135 <Electronically signed by Juan Hdez MD> Cosigner Signature (if applicable): CC: Dr. Mena Vernon MD; Dr. Juan Hdez MD~ Signed [facility] Work Phone: 1(362) 304-741304-27-2025 Discharge summary Author Harshil Nguyenrus [facility] Note Date/Time July 04, 2024 10: 44am [facility] Medical Records Department [address] [place] [address] Emergency Department Summary 07/04/24 MR#: [id number] Acct: [id number] Name: LIUDMILA WORLEY Rep #:[id number] : 1985 38 From: Harshil Garcia PCP: Dr. Mena Vernon MD Status:AD M IN Location: MS3 [id number] Gavin Alford DO on [...] flare October of last year diagnosed at [facility]. She is told to follow-up with her PCP she has not had any issues until yesterday evening she ate nodule cheese for lunch nothing for dinner. I spoke with on-call surgeon Dr. Austin, reviewed her imagings and labs along with labs from [facility]. Reported her AST was 100 at that [...] Present Illness Chief Complaint: Abd Pain PFSH [facility] Medical History ADHD Alcohol use Anxiety Depression [...] History obtained from others: none Consults: none [facility] Narrative: The patient was initially hemodynamically stable, [...] final disposition This note was generated with [employer]. dictation software. It may contain incorrectwords, spelling, [...] 79.3 H Lymph % (Auto) 12.7 L Lajas % (Auto) 6.9 Eos % (Auto) 0.4 [...] MD [Primary Care Provider] - Print Language: Kittitian What to do if you have Problems For any increased pain, shortness of breath, bleeding, nausea or vomiting, chestpain, or any unexpected problems, contact your Primary Care Provider. Call [facility] ([phone]) or report to the closest Emergency Room. Call 911 if necessary. 07/04/24 0707 <Electronically signed by Harshil Sanches DO> Cosigner Signature (if applicable): CC: Dr. Mena Vernon MD ~ Signed [facility] Work Phone: 1(220) 757-390804-27-2025 Evaluation note* Diagnosis Onset Date Resolution Status Admit Date Acute cholecystitis with acu te cholangitis acute July 04, 2024 10:12am Cholelithiasis acute June 10:12am Elevated LFTs acute July 04, 2024 10:12am [facility] Work Phone: 1(465) 932-319804-27-2025 Evaluation note* Diagnosis Onset Date Resolution Status Admit Date Elevated LFTs acute July 04, 2024 10:12am Acute cholecystitis with acu te cholangitis resolved July 04, 2024 10:12am Cholelithiasis inactive June 10:12am [facility] Work Phone: 1(725) 837-837304-27-2025 Evaluation note* Diagnosis Onset Date Resolution Status Admit Date Elevated LFTs acute July 04, 2024 10:12am Acute cholecystitis with acu te cholangitis resolved July 04, 2024 10:12am Cholelithiasis inactive June 10:12am Elevated LFTs acute August 10, 2 025 9:06am [facility] Work Phone: 1(161) 842-689104-27-2025 History and physical note [facility] Medical Records Department [address] [place] [address] H&P Exam - Hospitalist 07/04/24 1011 MR#: [id number] Acct: [id number] Name: LIUDMILA WORLEY Rep #:[id number] : 1985 38 From: Juan Valenzuela PCP: Dr. Mena Vernon MD Status:AD M IN Location: [facility] [id number] HPI - General General Date of Admission: [...] pain October 2023 and she went to [facility] where she had ultrasound. She was toldthat [...] to admit under medicine with GI consult. [facility] Medical History Wears glasses Depression Anxiety Alcohol [...] 79.3 H, Lymph % (Auto) 12.7 L, Lajas % (Auto) 6.9, Eos % (Auto) 0.4, [...] Clarity Clear, Urine pH 7.0, Ur Specific [place] 1.010, Urine Protein 30 H, Urine Glucose [...] sonographic evidence of acute cholecystitis. Reading Location: [place] [address] Chest X-Ray 07/04/24 09:26 IMPRESSION: No Acute Findings. Reading Location: [facility] Assessment & Plan Assessment/Plan (1) Acute cholecystitis with acute cholangitis: PLAN: Plan This 38-year-old female is being admitted for right upper quadrant colicky pain for 1. Acute cholecystitis with cholelithiasis: [facility] IV fluid. Pain control. Lab evaluation shows normal WBC count,ALT 352 AST 594 elevated. ALP 135. Total bilirubin normal. Lipase normal. Right upper quadrant sonogram shows cholelithiasis with normal GB wall, no pericholecystic fluid. Clinically it seems patient has cholecystitis with biliary colic, Sherwood signpositive and elevated transaminases. ED physician consulted surgeon and wanted GI to see for therefore fireworks assembler consulted. I do not think antibiotic is [...] shock if needed Total time spent in yggs-qc-jcxg encounter in discussion of advanced directive 17 minutes. Laboratory Results 07/04/24 06:36: WBC 7.6, RBC 4.65, Hgb 11.9 L, Hct 36.0 L, MCV 77.4 L, MCH 25.6 L, MCHC 33.1, RDW Std Deviation 44.5 H, RDW Coeff of María 15.9 H, Plt Count 312, MPV 10.0, Immature Gran % (Auto) 0.400,Neut % (Auto) 79.3 H, Lymph % (Auto) 12.7 L, Lajas % (Auto) 6.9, Eos % (Auto) 0.4, [...] Clarity Clear, Urine pH 7.0, Ur Specific [place] 1.010, Urine Protein 30 H, Urine Glucose [...] sonographic evidence of acute cholecystitis. [facility] 07/04/24 09:26 IMPRESSION: No Acute Findings. Reading Location: [facility] Charges/Coding Visit Charges Inpatient E&M: 58979 Init Hosp L3 Procedures Hospitalists Procedures: 90023 Advncd Care Plan 30 Min 07/04/24 1135 Cosigner Signature (if applicable): CC: Dr. Mena Vernon MD; Dr. Juan Hdez MD~ Signed [facility]04-27-2025 Discharge summary [facility] Medical Records Department [address] [place] [address] Emergency Department Summary 07/04/24 MR#: [id number] Acct: [id number] Name: LIUDMILA WORLEY Rep #:[id number] : 1985 38 From: Harshil Garcia PCP: Dr. Mena Vernon MD Status:AD M IN Location: DE3 PI068-[address] Gavin Alford DO on [...] flare October of last year diagnosed at [facility]. She is told to follow-up with her PCP she has not had any issues until yesterday evening she ate nodule cheese for lunch nothing for dinner. I spoke with on-call surgeon Dr. Austin, reviewed her imagings and labs along with labs from [facility]. Reported her AST was 100 at that [...] Oxygen Delivery Method Room Air Room Air [facility] Narrative Medical decision making narrative: HISTORY OF [...] reviewed, Vital signs reviewed Constitutional: please see [facility] HENT: MMM Eyes: Pupils equal round and [...] History obtained from others: none Consults: none [facility] Narrative: The patient was initially hemodynamically stable, [...] final disposition This note was generated with BR[employer]. dictation software. It may contain incorrectwords, spelling, [...] 79.3 H Lymph % (Auto) 12.7 L Lajas % (Auto) 6.9 Eos % (Auto) 0.4 [...] MD [Primary Care Provider] - Print Language: Kittitian What to do if you have Problems For any increased pain, shortness of breath, bleeding, nausea or vomiting, chestpain, or any unexpected problems, contact your Primary Care Provider. Call [facility] ([phone]) or report tothe closest Emergency Room. Call 911 if necessary. 07/04/24 0707 Cosigner Signature (if applicable): CC: Dr. Mena Vernon MD ~ Signed [facility]04-27-2025 Radiology Diagnostic study note [facility] Imaging Services [address] [place] [address] Chest 1 View (Portable) MR#: [id number] Acct: [id number] Name: LIUDMILA WORLEY Rep #: [id number] : 1985 F 38 From: Lamar Patel MD PCP: Dr. Mena Vernon MD Status: RE G ER Study:Chest 1 View (Portable) Date of Exam: 07/04/24 Exam# [id number] Ordering Dr: Gavin Alford DO PROCEDURE: CHEST 1 VIEW (PORTABLE) 07/04/2024 REASON FOR EXAM: PREOP TECHNIQUE: Frontal view of the chest. COMPARISON: None FINDINGS: Hardware: None Heart: Cardiac and mediastinal contours are stable. Lungs: The lungs are clear. Bones: The bones are unremarkable. Other: RAD/Chest 1 View (Portable) IMPRESSION: No Acute Findings. [facility] CC: Dr. Mena Vernon MD; Dr. Gavin Alford DO ~ [facility] Shift Lead: Signed [facility]04-27-2025 Radiology Diagnostic study note [facility] Imaging Services [address] [place], [place] [id number] Gallbladder MR#: [id number] Acct: [id number] Name: LIUDMILA WORLEY Rep #: [id number] : 1985 F 38 From: Maynor Lopez MD PCP: Dr. Mena Vernon MD Status: RE G ER Study:Gallbladder Date of Exam: 07/04/24 Exam# [id number] Ordering Dr: Brenda Sanches DO PROCEDURE: GALLBLADDER [...] Vernon MD; Dr. Harshil Sanches DO ~ [facility] Shift Lead: Signed [facility]03-18-2025 Telephone encounter Note* Telephone Encounter - Leyla Hussein LPN - 05/25/2024 8:49 AM EDT Fax rec'd from [facility]. Approval for adderall 30mg from 05/24/24 to 05/23/26. Faxed to pharmacy and pt notified via my chart. [facility]03-18-2025 Miscellaneous Notes* Telephone Encounter - Leyla Hussein LPN - 05/25/2024 8:49 AM EDT Fax rec'd from [facility]. Approval for adderall 30mg from 05/24/24 to 05/23/26. Faxed to pharmacy and pt notified via my chart. * Telephone Encounter - Leora Gambino MA - 05/24/2024 11:13 AM EDT Called [facility] [phone] and did not receive chart notes. [facility] rep advised should re-submitted again for Name Brand : Adderall 30 mg BID and faxed chart notes Auth ID [id number] * Telephone Encounter - Leyla Hussein LPN [...] mg BID. Fax received yesterday was from [employer] submission. Leora Gambino MA * Telephone Encounter [...] but would not process. Called [facility] at [phone] and completed with rep for adderall 30 mg BID. Advised will notify office once decision made through fax Leora Gabmino MA * Telephone Encounter - Ashley Sprague [...] Adderall Provider: Dr Vernon Insurance Company Name: [employer] Phone number: [phone] Patient ID number: [id number] Pharmacy Name: [facility] Telephone number: [phone] [facility] Telephone encounter Note * Telephone Encounter - Leora Gambino MA - 05/24/2024 11:13 AM EDT Called [facility] [phone] and did not receive chart notes. [facility] meyer advised should re-submitted again for Name Brand : Adderall 30 mg BID and faxed chart notes Auth ID [id number] [facility]03-17-2025 Telephone encounter Note* Telephone Encounter - Leora Gambino MA - 05/24/2024 10:44 AM EDT Called [facility] [phone] and did not receive chart notes. [facility] meyer advised should re-submitted again for Name Brand : Adderall 30 mg BID and faxed chart notes Auth ID [id number] [facility]03-17-2025 Miscellaneous Notes* Telephone Encounter - Leora Gambino MA - 05/24/2024 10:44 AM EDT Called [facility] [phone] and did not receive chart notes. [facility] meyer advised should re-submitted again for Name Brand : Adderall 30 mg BID and faxed chart notes Auth ID [id number] documented [facility]03-12-2025 Telephone encounter Note * Telephone Encounter - Leyla Hussein LPN - 05/19/2024 4:12 PM EDT Denial rec'd. They note they need notes noting pt has positive effects with current treatment. Office notes faxed for review. [facility]03-11-2025 Telephone encounter Note* Telephone Encounter - Leora Gambino MA - 05/18/2024 11:04 AM EDT Called and spoke to [facility] PA is still in process that was done over the phone for Brand name ADDERALL 30 mg BID. Fax received yesterday was from covermymeds submission. Leora Gambino MA [facility]03-11-2025 Telephone encounter Note* Telephone Encounter - Ashley Sprague RN - 05/18/2024 10:36 AM EDT Pt states it is for the brand name Adderall to get the CHAZ [address]. She states [address] Vernon knows about this. [facility]03-11-2025 Telephone encounter Note* Telephone Encounter - Leyla Hussein LPN - 05/18/2024 8:18 AM EDT Fax rec'd from [facility] noting no PA is needed for dextroamphetamine/amphetamine. Please advise member enrolled in managed care plan to take their prescriptions to an in network pharmacy to have filled. Pt notified via my chart. [facility]03-10-2025 Telephone encounter Note* Telephone Encounter - Leora Gambino MA - 05/17/2024 1:34 PM EDT Tried to complete through covermymeds but would not process. Called [facility] at [phone] and completed with rep for adderall 30 mg BID. Advised will notify office once decision made through fax Leora Gambino MA [facility]03-10-2025 Telephone encounter Note* Telephone Encounter - Ashley [...] Adderall Provider: Dr Vernon Insurance Company Name: [employer] Phone number: [phone] Patient ID number: [id number] Pharmacy Name: [facility] Telephone number: [phone] [facility]02-10-2025 NoteHNO ID: [id number] Author: MENA VERNON MD Service: ? Author Type: Physician Type: Progress Notes Filed: 04/19/2024 09:45 Note Text: This note was created using [employer]. Subjective Liudmila Worley is a 38 year [...] trying to make healthier choices, such as Kuwaiti yogurt and fruit parfaits. She also reports [...] to alleviate pruritus. - Suggested trial of xids-dqe-yooadvi lidocaine patches for localized sympt (more content not included)...[facility]02-10-2025 History of Present illness Narrative* Mena Vernon MD - 04/19/2024 9:13 AM EST Images from the original note were not included. This note was created using LegalZoomriter. Subjective Liudmila Worley is a 38 year [...] trying to make healthier choices, such as Kuwaiti yogurt andfruit parfaits. She also reports experiencing [...] to alleviate pruritus. - Suggested trial of uxqa-vch-ivdaijt lidocaine patches for localized symptom relief. # [...] noted. Mena Vernon MD documented in this encounterKind[facility]02-05-2025 Instructions* Patient Instructions* Aliza Mcnamara APRN.BIOMETRICS SPECIALIST - 04/14/2024 8:01 PM EST Rest, increase [...] breath, inability to swallow. documented in this encounterKind[facility]02-05-2025 NoteHNO ID: [id number] Author: ALIZA MCNAMARA APRN.BIOMETRICS SPECIALIST Service: ? Author Type: Nurse Practitioner Type: Progress Notes Filed: 04/14/2024 20:08 Note Text: Subjective The history is provided by the patient. No supervising nurse was used. HPI Liudmila Worley is a [...] have confirmed and edited as necessary, the [facility] Review of Systems Constitutional: Negative [...] detail warranting prompt ER evaluation. Aliza Mcnamara APRN.[facility] History of Present illness Narrative* Aliza Mcnamara APRN.DELMA - 04/14/2024 7:48 PM EST Subjective The history is provided by the patient. No supervising nurse was used. HPI Liudmila Worley is a [...] have confirmed and edited as necessary, the [facility] Review of Systems Constitutional: Negative [...] evaluation. Aliza Mcnamara APRN.CNP documented in this encounterKind[facility] Healthcare11-25-2024 Telephone encounter Note * Telephone Encounter - [...] Syed LPN February 02, 2024 1:22 PM [facility]11-25-2024 Miscellaneous Notes* Telephone Encounter - Fariha Syed [...] 02, 2024 1:22 PM documented in this encounterKindred Healthcare09-25-2024 Telephone encounter Note * Telephone Encounter - Leyla Hussein LPN - 12/03/2023 11:34 AM EDT Covermymeds PA response is Information regarding your request Electronic prior authorization not supported as no PA required for NDC and for member's age. Called the pharmacy and reviewed. Pharmacist says they have to call insurance every month to get anoverride. This was previously approved in [employer] until 04/26/24. [facility]09-25-2024 Miscellaneous Notes* Telephone Encounter - Leyla Hussein LPN - 12/03/2023 11:34 AM EDT Covermymeds PA response is Information regarding your request Electronic prior authorization not supported as no PA required for NDC and for member's age. Called the pharmacy and reviewed. Pharmacist says they have to call insurance every month to get anoverride. This was previously approved in [employer] until 04/26/24. * Telephone Encounter - Leyla Hussein LPN - 12/03/2023 11:25 AM EDT Unable to complete electronically. Will try on covermymeds. * Telephone Encounter - Aimee Ludwig RN - 12/03/2023 10:47 AM EDT PRIOR AUTHORIZATION Medication for Prior Authorization: Adderall 30 mg (Brand Name) Insurance Company: [employer] Patient insurance ID number: [id number] Aimee Ludwig RN documented in this encounterKind[facility] Healthcare09-25-2024 Telephone encounter Note * Telephone Encounter - Leyla Hussein LPN - 12/03/2023 11:25 AM EDT Unable to complete electronically. Will try on covermymeds. [facility]09-25-2024 Telephone encounter Note* Telephone Encounter - Aimee Ludwig RN - 12/03/2023 10:47 AM EDT PRIOR AUTHORIZATION Medication for Prior Authorization: Adderall 30 mg (Brand Name) Insurance Company: [employer] Patient insurance ID number: [id number] Aimee Ludwig RN [facility]08-30-2024 Note ORIGINAL EXAMINATION: LIMITED ABDOMINAL ULTRASOUND11/07/2023 9:53 [...] Date: 11/07/2023 10:46:03 AM Ordering Provider: [facility] Hospital Discharge instructions Patient Education 11/05/2023 [...] foods again, start with small amounts of bknm-wz-epgmho, low- fat foods. These include apple sauce, [...] increase stomach acid. Don't use aspirin or oava-jsf-upciytk pain and fever medicines, if possible. This includes nonsteroidal anti-inflammatory drugs (NSAIDs). Lose excess weight. Finish eating at least 2 hours before you go to bed or lie down. Raise the head of your bed. 2937-2528 [employer]. [address] [place] [address]. All rights reserved. This information is not intended as a substitute for professional medical care. Always follow yourhealthcare professional's instructions. Follow Up Care 11/05/2023 17:11:21 With:MENA VERNON MD Address: [address] [place], [place] [address]- When:2-4 days [facility] 08-28-2024 Note Discharge Instructions Thank you for allowing [facility] to assist you with your healthcare needs. The following is importantdischarge information regarding your hospital visit. Diagnosis from Today's Visit Abdominal pain What to Do Next Instructions from Your Care Team No qualifying data available. Post Acute Orders No qualifying data available. You Need to Schedule the Following Appointments Follow Up with MENA VERNON MD When:Within 2-4 days Where:[address] [place], [place] [id number]- Allergies No Known Medication Allergies Medications Please [...] foods again, start with small amounts of bllr-xw-kbbdjh, low- fat foods. These include apple sauce, [...] increase stomach acid. Don't use aspirin or hbcw-dpm-dkdgkjz pain and fever medicines, if possible. This includes nonsteroidal anti-inflammatory drugs (NSAIDs). Lose excess weight. Finish eating at least 2 hours before you go to bed or lie down. Raise the head of your bed. 1319-5967 [employer]. [address] [place] [address], [place] [address]. All rights reserved. This information is not intended as a substitute for professional medical care. Always follow yourhealthcare professional's instructions. Additional Information VACCINATE! IT SAVES LIVES! Members of the community who have not yet received the COVID-19 vaccine and would like to receive it can visit one of [facility] vaccine clinics. There are many vaccine clinic locations within the [facility]. For locations and available times, please visit www.gettheshot.coronavirus.[place].gov/. It is important to note that some COVID mobile vaccine clinics are held outdoors and may be canceled in rainy or stormy conditions. To learn more about pediatric vaccinations (ages 5-11), we invite you to visit the [facility] webpage. https://www.[facility].org/pages/6856-Wvfcy-Wuxuauzktdm-Nznjkyzjnf-Sjzti-Pkj stions.htmlTo learn more about the COVID-19 vaccine, we invite you to visit the CDC website for a list of frequently asked questions. https://www.cdc.gov/coronavirus/2019-ncov/vaccines/faq.html [employer] Patient Portal Access Instructions: Stay connected with your healthcare team and access your personal medical information anytime with the [employer] Patient Portal. If you would like a full copy of your medical records please contact the [facility] Medical Records Department Friday through Friday between 8a.m. and 4:30p.m. Please follow the directions below to access the portal: 1.Access the email account you provided upon registration to the [facility].2.Look for an invitation email from [facility].3.Open the email and access the invitation link: Accept Invitation to [facility]4.Fill in the required lux to create your account. Sign into [email or web address] with your username and password that you [...] you will allow to register on the [employer] Patient Portal for access to your information. You can also access the [employer] Patient Portal on the [employer]. Simply click on "Health Records" under "HealthData" and then click on the [employer] logo. HOW TO SAFELY DISPOSE OF PRESCRIPTION [...] Call your local pharmacy or go to [email or web address] to find one close to you.3.Make use of household items: Use cat litter or old coffee grounds to dispose medications if other options arenot available. Mix your drugs with these household products, seal them in an airtight container andthrow it into the garbage. Call [facility]: [phone] to be sure your drugs can be [...] aware that I should contact my doctor. Patient/Cracking Still Operator Signature: Date/Time: Relationship to Patient: Witness Name/Signature: Date/Time: [facility] [id number] History of Present illness Narrative * Joanie [...] to a different ER. documented in this encounterKindred Healthcare07-26-2024 Instructions* Patient Instructions* Mena Vernon MD - 10/03/2023 5:58 PM EDT Iron --if take supplement, then Mon, Wed, Fri. Iron glycinate, gluconate, fumarate or succinate better tolerated to sulfate. Okay lower doses of iron around 20 range. Okay to take Q-hldcfa-sdlprp documented in this encounterKindred Healthcare07-26-2024 History of Present illness Narrative* Mena Vernon MD - 10/03/2023 5:25 PM EDT This note was created using LegalZoomriter. Subjective Liudmila Worley is a 38 year [...] Iron supplement as discussed. Follow up with ENGINEERING VICE PRESIDENT as needed 3. Primary hypertension I10 Stay [...] sleep. Mena Vernon MD documented in this encounterKindred Healthcare07-26-2024 Telephone encounter Note * Telephone Encounter - [...] Burgos MA October 03, 2023 2:48 PM [facility]07-26-2024 Miscellaneous Notes* Telephone Encounter - Deacon Burgos [...] 03, 2023 2:48 PM documented in this encounterKindred Healthcare06-26-2024 Telephone encounter Note * Telephone Encounter - [...] DERECK Alejandre September 03, 2023 1:11 PM [facility]06-26-2024 Miscellaneous Notes* Telephone Encounter - Delisa Rea [...] 03, 2023 1:11 PM documented in this encounterKindred Healthcare06-23-2024 History of Present illness Narrative* Madhu Ames APRN.BIOMETRICS SPECIALIST - 08/31/2023 9:13 AM EDT This note [...] (POC) Madhu Ames APRN.CNP documented in this encounterKindred Healthcare05-29-2024 Telephone encounter Note * Telephone Encounter - Karol Vergara APRN.CNP - 08/06/2023 12:41 PM EDT Addressed in another encounter [facility] Work Phone: [phone] Telephone encounter Note* Telephone Encounter - Karol Vergara APRN.CNP - 08/06/2023 12:41 PM EDT PDMP website checked and validated. All prescriptions have been APPROPRIATELY filled. No suspiciousactivity was identified. 08/06/2023 by Karol Vergara APRN.CNP [facility]05-29-2024 Miscellaneous Notes* Telephone Encounter - Karol Vergara [...] you. Carmen Rooney MA. documented in this encounterKindred Healthcare05-29-2024 Miscellaneous Notes* Telephone Encounter - Karol Vergara [...] you. Carmen Rooney MA. documented in this encounterKindred Healthcare05-29-2024 Telephone encounter Note * Telephone Encounter - Tereza Tobar RN - 08/06/2023 9:22 AM EDT Patient has been out of medication for 2 days. [facility]05-28-2024 Telephone encounter Note* Telephone Encounter - Carmen [...] Please advise. Thank you. Carmen Rooney MA. [facility]05-28-2024 Telephone encounter Note* Telephone Encounter - Carmen [...] Please advise. Thank you. Carmen Rooney MA. [facility]04-26-2024 Telephone encounter Note* Telephone Encounter - Deepti Redd APRN.CNS - 07/04/2023 9:06 AM EDT ok [facility]04-26-2024 Miscellaneous Notes* Telephone Encounter - Deepti Redd APRN.CNS - 07/04/2023 9:06 AM EDT ok * Telephone Encounter - Tereza Tobar RN - 07/04/2023 8:54 AM EDT Patient reports the adderall rx sent to [facility] yesterday was not generic, it was name brand. Reports the name brand is $850 The generic is $50 Reports she learned [facility] did not renew their contract with her insurance so adderall is no longer covered at [facility], but they are the only ones that have it. [facility] does not have it. Patient is willingto pay the $50 this month. Patient took her last pill yesterday. Pended for generic adderall. documented in this encounterKindred Healthcare04-26-2024 Telephone encounter Note * Telephone Encounter - Tereza Tobar RN - 07/04/2023 8:54 AM EDT Patient reports the adderall rx sent to [facility] yesterday was not generic, it was name brand. Reports the name brand is $850 The generic is $50 Reports she learned [facility] did not renew their contract with her insurance so adderall is no longer covered at [facility], but they are the only ones that have it. [facility] does not have it. Patient is willingto pay the $50 this month. Patient took her last pill yesterday. Pended for generic adderall. [facility]04-25-2024 Telephone encounter Note* Telephone Encounter - Deepti Redd APRN.CNS - 07/03/2023 4:17 PM EDT ok [facility]04-25-2024 Miscellaneous Notes* Telephone Encounter - Deepti Redd APRN.CNS - 07/03/2023 4:17 PM EDT ok * Telephone Encounter - Leanne Woods RN - 07/03/2023 2:27 PM EDT Patient calling to say [facility] pharmacy does not have brand name Adderall in stock. She is requesting script for generic Adderall be sent to [facility] retail pharmacy and she will pay out of pocket. Leanne Woods RN documented in this encounterKindred Healthcare04-25-2024 Telephone encounter Note * Telephone Encounter - Leanne Woods RN - 07/03/2023 2:27 PM EDT Patient calling to say [facility] pharmacy does not have brand name Adderall in stock. She is requesting script for generic Adderall be sent to [facility] retail pharmacy and she will pay out of pocket. Leanne Woods, RN [facility]04-25-2024 Telephone encounter Note* Telephone Encounter - Deepti Redd APRN.CNS - 07/03/2023 10:58 AM EDT ok [facility]04-25-2024 Miscellaneous Notes* Telephone Encounter - Deepti Redd APRN.CNS - 07/03/2023 10:58 AM EDT ok * Telephone Encounter - Kelly Bush LPN - 07/03/2023 9:32 AM EDT Pt called back and she wants request for Adderall to be sent to [facility] and the Brand name is what she wants not generic. Reason for switching pharmacy [facility] did not renew contract with the insurance pt has. No call back, only if a problem KAPIL: 04/22/23 NOV: 10/03/23 Kelly Bush LPN * Telephone Encounter - Veronica Thacker RN - 07/03/2023 8:48 AM EDT Pt calling and states she has to pay out of pocket this month for her Adderall so she needs the generic sent in to [facility] pharmacy. Call pt only if problem. Last OV 04/22/23 Next OV 10/03/23 documented in this encounterKindred Healthcare04-25-2024 Telephone encounter Note * Telephone Encounter - Kelly Bush LPN - 07/03/2023 9:32 AM EDT Pt called back and she wants request for Adderall to be sent to [facility] and the Brand name is what she wants not generic. Reason for switching pharmacy [facility] did not renew contract with the insurance pt has. No call back, only if a problem KAPIL: 04/22/23 NOV: 10/03/23 Kelly Bush LPN [facility]04-25-2024 Telephone encounter Note* Telephone Encounter - Veronica Thacker RN - 07/03/2023 8:48 AM EDT Pt calling and states she has to pay out of pocket this month for her Adderall so she needs the generic sent in to [facility] pharmacy. Call pt only if problem. Last OV 04/22/23 Next OV 10/03/23 [facility]04-12-2024 Miscellaneous Notes* Telephone Encounter - Lissa Neumann [...] sent. Lissa Neumann RN documented in this encounterKindred Healthcare03-21-2024 History of Present illness Narrative* Shima Barney PA-C - 05/29/2023 4:52 PM EDT This note was created using Top Hat. Subjective Liudmila Worley is a 37 year [...] Denies sick contacts. She did try some ahgf-ndu-qnjkyjz cough and cold medicines which did help [...] SALPINGECTOMY Bilateral 11/09/2021 Laparoscopic B/L Salpingectomy at [facility]-Dr. Syed TONSILLECTOMY PRIMARY/SECONDARY <AGE 14 FAMILY HISTORY [...] FRONTAL/LAT Shima Barney PA-C documented in this encounterKindred Healthcare03-21-2024 History of Present illness Narrative* Cheryl Polanco [...] PATIENT PRESENTS WITH AN IMPLANTABLE OR ATTACHED OPHTHALMIC MEDICAL TECHNOLOGIST: No RADIOLOGY DEPARTMENT: General X-ray: Exam(s) Completed: Chest X-Ray PERIPHERAL IV DATA: Not applicable SIGNED BY: RT Perry(Julissa) May 29, 2023 4:47 PM documented in this encounterKindred Healthcare02-20-2024 Miscellaneous Notes* Telephone Encounter - Leyla Hussein LPN - 04/29/2023 12:44 PM EST PA number is [id number] * Telephone Encounter - Leyla Hussein LPN - 04/29/2023 12:42 PM EST Pt notified. * Telephone Encounter - Leyla Hussein LPN - 04/29/2023 12:19 PM EST Rec'd approval from [facility]. This was approved from 04/29/23 to 04/26/24. Pharmacy notified. They say it's still not called [facility]. They have this corrected and they will notify the pharmacy. This call reference number is [id number]. * Telephone Encounter - Leyla Hussein LPN [...] 04/28/2023 3:33 PM EST PA completed via [facility] liudmila worley (Cisse: [id number]) Adderall 30MG tablets Status: Sent To Plan [...] Prior Auth. Please advise. documented in this encounterKindred Healthcare02-13-2024 History of Present illness Narrative* Mena Vernon MD - 04/22/2023 8:30 AM EST This note was created using LegalZoomriter. Subjective Liudmila Worley is a 37 year [...] the date of the service which included qsof-ye-tovl patient care, completing clinical documentation, obtaining and/or reviewing separately obtained history, performing a medically appropriate examination, counseling and educating the patient/family/caregiver, and ordering medications, tests, or procedures. Mena Vernon MD documented in this encounterKindred Healthcare11-17-2023 Miscellaneous Notes* Telephone Encounter - Tereza Tobar [...] Adderall 30 mg twice daily. 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 States [facility] Pharm is only open a couple of [...] review. Evita Madrigal RN documented in this encounterKindred Healthcare11-16-2023 Miscellaneous Notes* Telephone Encounter - Evita Madrigal RN - 01/23/2023 10:37 AM EST Patient calls to check on status of request of returning back to Adderall 30 mg twice daily and discontinuing the Adderall XR dose. Notified patient it was pending provider review. Changed request to TE. Evita Madrigal RN documented in this encounterKindred Healthcare11-03-2023 Miscellaneous Notes* Telephone Encounter - Adilene Jacobo [...] Left contact information in documented in this encounterKindred Healthcare09-08-2023 Miscellaneous Notes* Telephone Encounter - Mena Vernon [...] advise. Fariha Syed LPN documented in this encounterKindred Healthcare2023 Miscellaneous Notes* Telephone Encounter - Fariha Syed LPN - 10/22/2022 1:27 PM EDT Last office visit: 07/10/2022 Next appointment scheduled: 10/22/2022 Last labs: 06/19/2018 last tox screen Patient phones requesting refills as follows: Requested Prescriptions Pending Prescriptions Disp Refills ADDERALL 30 mg tablet 60 tablet 0 Sig: Take 1 tablet by mouth twice daily for 30 days. 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 Syed TONSILLECTOMY PRIMARY/SECONDARY <AGE 14 FAMILY HISTORY [...] external genitalia normal, normal Bartholin's glands, urethra, Terry's glands, no vulvar lesions, no cervical lesions, [...] this. Jaylan Syed MD documented in this encounterKindred Healthcare05-08-2023 Miscellaneous Notes* Telephone Encounter - Deepti Redd APRN.CNS - 07/15/2022 4:40 PM EDT Sent in by Dr Syed * Telephone Encounter - Ashley Sprague RN - 07/15/2022 9:15 AM EDT Pt called in and reports she is having vaginal burning and itching. She is asking if the provider would call in Fluconazole to [facility] pharmacy for her. I let Pt know [...] you. Ashley Sprague RN documented in this encounterKindred Healthcare05-08-2023 Miscellaneous Notes* Telephone Encounter - Robyn Perez RN - 07/15/2022 2:04 PM EDT Patient calling c/o yeast infection symptoms of vaginal itching/irritation. Asking for diflucan refill. Only call back with problems. Robyn Perez RN documented in this encounterKindred Healthcare05-04-2023 Miscellaneous Notes* Telephone Encounter - Leora Gambino Ma - 07/11/2022 9:06 AM EDT [employer] will not cover name brand lexapro and not willing to approve PA since not clinical evidence that generic ineffective. Spoke to patient who is aware and fine with generic being sent. Pleasesend rx Leora Gambino Ma documented in this encounterKindred Healthcare05-03-2023 History of Present illness Narrative* Mena Vernon MD - 07/10/2022 10:40 AM EDT VIRTUAL VISIT PROGRESS NOTE This is a virtual visit using Keep Me Certified video visit. It required patient-provider interaction for themedical decision making as documented below. I have communicated my name and active licensure. The patient's identity and physical location wereverified at the time of this visit. Either the patient or their legal patient care representative has been informed of the risks [...] SALPINGECTOMY Bilateral 11/09/2021 Laparoscopic B/L Salpingectomy at [facility]-Dr. Syed TONSILLECTOMY PRIMARY/SECONDARY <AGE 14 FAMILY HISTORY [...] ophthalmology. Mena Vernon MD documented in this encounterKindred Healthcare04-15-[address] Barney [facility] June 22, 2022 5:13pm Note Date/Time June 22, 2022 5:0 9pm [facility] Medical Records Department [address] [place] [address] Emergency Department Summary 06/22/22 MR#: [id number] Acct: [id number] Name: LIUDMILA WORLEY Rep #:[id number] : 1985 36 From: Johnny Barney MD PCP: Dr. Mena Vernon MD Status:NH E ER Location: ED HPI History of [...] your Primary Care Provider. Call [facility] ([phone]) or report to the closest Emergency Room. Call 911 if necessary. 06/22/223 <Electronically signed by Johnny Barney MD> Cosigner Signature (if applicable): CC: Dr. Mena Vernon MD ~ Signed [facility] Work Phone: [phone]) 837-952302-16-2023 Miscellaneous Notes* Telephone Encounter - Leyla Hussein LPN - 04/25/2022 9:30 AM EST Rec'd fax noting this was already approved until 03/18/23. * Telephone Encounter - Leyla Hussein LPN - 04/23/2022 2:49 PM EST LIUDMILA STACYRUDY (Cisse: [id number]) - [id number] Adderall 30MG tablets Status: Sent to Plan Created: April 20, 2022 Sent: April 23, 2022 documented in this encounterKindred Healthcare02-01-2023 History of Present illness Narrative* Mena Vernon MD - 04/10/2022 11:05 AM EST This note was created using Arsenal Vascularter. Subjective Liudmila Worley is a 36 year [...] management. Mena Vernon MD documented in this encounterKindred Healthcare01-24-2023 History of Present illness Narrative* MIO Meyer - 04/02/2022 8:14 PM EST This note was created using LegalZoomriter. Subjective Liudmila Worley is a 36 year [...] SALPINGECTOMY Bilateral 11/09/2021 Laparoscopic B/L Salpingectomy at [facility]-Dr. Syed TONSILLECTOMY PRIMARY/SECONDARY <AGE 14 ALLERGIES Seasonal [...] ER evaluation. MIO Meyer documented in this encounterKindred Healthcare01-12-2023 Miscellaneous Notes* Telephone Encounter - Leora Gambino Ma - 03/21/2022 9:52 AM EST Spoke to [facility] josef who advised stating need PA. Called [facility] and they advised name brand is approved appears issue on pharmacy end when running RX are not using correct code. Spoke to [facility] pharmacy again and josef stated needing CHAZ-9 so ran and went through. PA is approved and patient notified. Ref# [id number] Leora Gambino Ma * Telephone Encounter - Leyla Hussein LPN - 03/20/2022 10:52 AM EST Rec'd approval from [facility] for dextromphetamine/amthetamine 03/19/22 to 03/18/23. But this PA is for ADDERALL. Brand not generic. Will wait for that PA to be reviewed. * Telephone Encounter - Leora Gambino Ma - 03/19/2022 3:13 PM EST Prior Authorization has been completed online at [employer] for Adderall, will await response. [id number] Please keep encounter open until final decision [...] stock at this time. documented in this encounterKindred Healthcare12-09-2022 History of Present illness Narrative* Kamron Sharif - 02/15/2022 8:30 AM EST Patient offered a medical packaging operator for sensitive exam. Pt declined [facility] History and physical note* Venita Nair APRN-DELMA [...] y.o. 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 01/2022 Last PAP: 2021 [...] LIMITED UNILATERAL RIGHT, 02/15/2022 09:49 AM (accession [id number]), 02/15/2022 09:56 AM (accession [id number]) CLINICAL INDICATIONS: Palpable abnormality 10:00 right breast [...] capsule PIOTR Paul, AOP Breast Surgical Oncology [facility] [place] [facility] [place] [facility] P: [phone] [facility]12-[facility] History and physical note* PIOTR Cox - [...] y.o. premenopausal female who presents to the [facility] on 02/15/2022 for [...] in the UE. She presents to the [facility] today for evaluation. 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 01/2022 Last PAP: 2021 [...] LIMITED UNILATERAL RIGHT, 02/15/2022 09:49 AM (accession [id number]), 02/15/2022 09:56 AM (accession [id number]) CLINICAL INDICATIONS: Palpable abnormality 10:00 right breast [...] capsule PIOTR Paul, AOCNP [facility] [place] [facility] P: [phone] documented in this [facility]12-09-2022 History of Present illness Narrative* Alicia Adams RN - 02/15/2022 8:00 AM EST Liudmila Worley was offered and declined a Medical Rope Coiling Machine Operator for this exam/procedure/test 02/15/2022. documented in this [facility]11-21-2022 Miscellaneous Notes* Telephone Encounter - Aleshia Brito RN - 01/28/2022 3:19 PM EST Patient notified. States that she wishes to go to [facility]. Orders faxed. Aleshia Brito RN * Telephone Encounter - Kayla Ferrer MD - 01/28/2022 2:58 PM EST Yes, I told her at appt today that the wait was probably 4-5 weeks out but that I did not feel anything needed done emergently. I am ok with her waiting. If she desires sooner appt she can go to [facility]. * Telephone Encounter - Aleshia Brito RN [...] is on the waitlist. documented in this encounterKindred Healthcare11-21-2022 Miscellaneous Notes* Telephone Encounter - Annabelle Bolaños LPN - 01/28/2022 2:37 PM EST Patient calling asking that [facility]uma diagnostic mamm and ultrasound right breast order be faxed to [facility] to [phone]. Printed orders, face sheet and faxed as requested. documented in this encounterKindred Healthcare11-21-2022 Instructions* Patient Instructions* Kayla Ferrer MD - 01/28/2022 10:19 AM EST Breast Reconstruction Lobito Ruelas - [facility] [phone] [facility] [phone] Alan Sale[facility] [phone] Dr. Robbie Nolen [facility] [phone] Dr. Iron Fernandez [facility] [phone] documented in this encounterKindred Healthcare11-21-2022 History of Present illness Narrative* Kayla Ferrer MD - 01/28/2022 10:00 AM EST Rope Coiling Machine Operator offered: Patient declines. 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 Syed TONSILLECTOMY PRIMARY/SECONDARY <AGE 14 FAMILY HISTORY [...] which included preparing to see the patient, gkll-qp-zitm patient care, completing clinical documentation, obtaining and/or reviewing separately obtained history, performing a medically appropriate examination, counseling and educating the pat ient/family/caregiver, and ordering medications, tests, or procedures Medical Decision Making: Medical Decision Making Level: 1 - N/A Kayla Bustillo MD documented in this encounterKindred Healthcare11-08-2022 Miscellaneous Notes* Telephone Encounter - Wendy Obando Ma - 01/15/2022 11:19 AM EST PER LDT: Please make follow up appointments; AM in April any day F2F and VV next Left message for patient to call office documented in this encounterKindred Healthcare10-24-2022 Miscellaneous Notes* Telephone Encounter - Mena Vernon [...] 12/31/2021 4:49 PM EDT Rashard pharmacist from [facility] calling patient is requesting Brand [...] you. Annabelle Bolaños LPN documented in this encounterKindred Healthcare10-24-2022 Miscellaneous Notes* Telephone Encounter - Edelmira Marcial [...] prescription has been sent. documented in this encounterKindred Healthcare09-24-2022 Miscellaneous Notes* Telephone Encounter - Ashley Sprague [...] filled. Provider out of office, sending to [facility] to do on Friday. * Telephone Encounter - Marcia Saravia - 11/30/2021 8:55 AM EDT Patient Liudmila called checking if prescription-lisdexamfetamine (VYVANSE) 40 mg capsule, can be increased to 50 mg. Please advise, . documented in this encounterKindred Healthcare09-06-2022 History of Present illness Narrative* Jaylan Syed MD - 11/13/2021 12:39 PM EDT Laparoscopic bilateral salpingectomy at [facility] on 11/09/2021 without complication. Jaylan Syed MD documented in this encounterKindred Healthcare08-24-2022 History of Present illness Narrative* Mena Vernon MD - 10/31/2021 5:44 PM EDT VIRTUAL VISIT PROGRESS NOTE This is a virtual visit using Keep Me Certified video visit. It required patient-provider interaction for themedical decision making as documented below. Liudmila Worley is a 36 year old female seen for Medication check. 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 Panic attack first one at store--kids were with her. [place] warm; SOB, heart racing. happened before appointment [...] which included preparing to see the patient, vimw-br-rokg patient care, completing clinical documentation, counseling and educating the patient/family/caregiver, and ordering medications, tests, or procedures Mena Vernon MD documented in this encounterKindred Healthcare08-16-2022 History and physical note * Jaylan Syed [...] allergies Jaylan Syed M.D. documented in this encounterKindred Healthcare08-11-2022 Miscellaneous Notes* Telephone Encounter - Leyla Hussein [...] fill. Please advise and return her call. [facility] Pharmacy documented in this encounterKindred Healthcare08-03-2022 Instructions* Patient Instructions* Anna Nieto Ma - [...] to contact the office. 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 documented in this encounterKindred [facility]06-02-2022 Miscellaneous Notes* Telephone Encounter - Leyla Hussein [...] message on my chart. documented in this encounterKindred Healthcare05-24-2022 History of Present illness Narrative* Mena Vernon MD - 07/31/2021 11:02 AM EDT This note was created using LegalZoomriter. Subjective Liudmila Worley is a 35 year [...] about 4:30. Melencrot not effective. Teva at [facility]--this was fine. Issues with shortages [...] which included preparing to see the patient, [id number] patient care, completing clinical documentation, obtaining and/or reviewingseparately obtained history, performing a medically appropriate examination, counseling and educating the patient/family/caregiver and ordering medications, tests, or procedures. Mnea Vernon MD documented in this encounterKindred Healthcare09-04-2019 History of Past illness Narrative* Problem Noted [...] of this encounter (statuses as of 08/09/2021) [facility] History of Past illness Narrative* Problem Noted [...] of this encounter (statuses as of 08/16/2021) [facility] of Past illness Narrative* Problem Noted [...] of this encounter (statuses as of 09/19/2021) [facility] History of Past illness Narrative* Problem Noted [...] of this encounter (statuses as of 09/28/2021) [facility] of Past illness Narrative* Problem Noted [...] of this encounter (statuses as of 10/10/2021) [facility] of [facility] Narrative* Problem Noted [...] of this encounter (statuses as of 10/10/2021) [facility] of Past [facility] Narrative* Problem Noted [...] of this encounter (statuses as of 10/18/2021) [facility] of Past illness Narrative* Problem Noted [...] of this encounter (statuses as of 10/23/2021) [facility] of Past illness Narrative* Problem Noted [...] of this encounter (statuses as of 10/31/2021) [facility] of [facility] Narrative* Problem Noted [...] of this encounter (statuses as of 11/13/2021) [facility] Narrative* Problem Noted [...] of this encounter (statuses as of 12/01/2021) [facility] Narrative* Problem Noted [...] of this encounter (statuses as of 12/31/2021) [facility] Narrative* Problem Noted [...] of this encounter (statuses as of 01/01/2022) [facility] Narrative* Problem Noted [...] of this encounter (statuses as of 01/28/2022) [facility] Narrative* Problem Noted [...] of this encounter (statuses as of 01/28/2022) [facility] Narrative* Problem Noted [...] of this encounter (statuses as of 03/15/2022) [facility] Narrative* Problem Noted [...] of this encounter (statuses as of 03/21/2022) [facility] Narrative* Problem Noted [...] of this encounter (statuses as of 04/03/2022) [facility] Narrative* Problem Noted [...] of this encounter (statuses as of 04/25/2022) [facility] Narrative* Problem Noted [...] of this encounter (statuses as of 05/10/2022) [facility] Narrative* Problem Noted [...] of this encounter (statuses as of 07/11/2022) [facility] Narrative* Problem Noted [...] of this encounter (statuses as of 07/11/2022) [facility] Narrative* Problem Noted [...] of this encounter (statuses as of 07/16/2022) [facility] Narrative* Problem Noted [...] of this encounter (statuses as of 07/16/2022) [facility] Narrative* Problem Noted [...] of this encounter (statuses as of 07/17/2022) [facility] Narrative* Problem Noted [...] of this encounter (statuses as of 10/22/2022) [facility] Narrative* Problem Noted [...] of this encounter (statuses as of 10/24/2022) [facility] Narrative* Problem Noted [...] of this encounter (statuses as of 11/18/2022) [facility] Narrative* Problem Noted [...] of this encounter (statuses as of 01/11/2023) [facility] Narrative* Problem Noted [...] of this encounter (statuses as of 01/23/2023) [facility] Narrative* Problem Noted [...] of this encounter (statuses as of 01/24/2023) [facility] Narrative* Problem Noted [...] of this encounter (statuses as of 04/29/2023) [facility] Narrative* Problem Noted [...] of this encounter (statuses as of 05/19/2023) [facility] Narrative* Problem Noted [...] of this encounter (statuses as of 05/30/2023) [facility] Narrative* Problem Noted [...] of this encounter (statuses as of 06/20/2023) [facility] note Author Julianne Adams [facility] Note Date/Time July 05, 2024 2:5 4pm [facility] Medical Records Department [address] [place] [address] Counseling Note - Pharmacy 07/05/24 1454 MR#: [id number] Acct: [id number] Name: LIUDMILA WORLEY Rep #:[id number] : 1985 38 From: Julianne Adams PCP: Dr. Mena Vernon MD Status:AD M IN Y Location: DE3 HM737-3 Pharmacy [place] Med Reconciliation Pharmacy Service has performed discharge medication reconciliation for this patient. The patient's discharge medication list was reviewed for discrepancies and discrepancies were resolved. Medications at Discharge Home Medications dextroamphetamine-amphetamine 30 mg tablet (Adderall) 30 mg PO 0800,1200 11/08/21 multivitamin 1 tab PO DAILY 11/08/21 lisinopril 5 mg tablet 5 mg PO DAILY 07/04/24 07/05/24 1456 <Electronically signed by Julianne Adams> Date _ Julianne Romeder Cosigner Signature (if applicable): Date CC: ~ Signed [facility] Work Phone: Discharge summary Author Harshil Nguyenrus [facility] Note Date/Time July 04, 2024 10: 44am [facility] Medical Records Department [address] [place] [address] Emergency Department Summary 07/04/24 MR#: [id number] Acct: [id number] Name: LIUDMILA WORLEY Rep #:[id number] : 1985 38 From: Harshil Garcia PCP: Dr. Mena Vernon MD Status:AD M IN Location: MS3 FE732-[address] Gavin Alford DO on [...] flare October of last year diagnosed at [facility]. She is told to follow-up with her PCP she has not had any issues until yesterday evening she ate nodule cheese for lunch nothing for dinner. I spoke with on-call surgeon Dr. Austin, reviewed her imagings and labs along with labs from [facility]. Reported her AST was 100 at that [...] of Present Illness Chief Complaint: Abd Pain [facility] Medical History ADHD Alcohol use Anxiety [...] History obtained from others: none Consults: none [facility] Narrative: The patient was initially hemodynamically stable, [...] final disposition This note was generated with [employer]. dictation software. It may contain incorrectwords, spelling, [...] 79.3 H Lymph % (Auto) 12.7 L Lajas % (Auto) 6.9 Eos % (Auto) 0.4 [...] MD [Primary Care Provider] - Print Language: Kittitian What to do if you have Problems For any increased pain, shortness of breath, bleeding, nausea or vomiting, chestpain, or any unexpected problems, contact your Primary Care Provider. Call [facility] ([phone]) or report to the closest Emergency Room. Call 911 if necessary. 07/04/24 0707 <Electronically signed by Harshil Sanches DO> Cosigner Signature (if applicable): CC: Dr. Mena Vernon MD ~ Signed [facility] Work Phone: Discharge summary Author Tristen Harrison [facility] Note Date/Time July 05, 2024 2:2 5pm [facility] Medical Records Department [address] [place] [address] Instructions for Home/Discharge Instructions 07/05/24 1332 MR#: [id number] Acct: [id number] Name: LIUDMILA WORLEY Rep #:[id number] : 1985 38 From: Tristen mcclain DO [...] Liver Profile (Routine) Timeframe: 5 Days Facility: [facility] - Location: Laboratory Ordered By: [...] MD; Dr. Veronica Austin MD ~ Signed [facility] Work Phone: Evaluation + Plan note No data available for this section [facility] Evaluation noteNo assessment information available [facility] Work Phone: Evaluation note* Diagnosis Attention deficit hyperactivity disorder (ADHD), unspecified ADHD type [facility]* Diagnosis Encounter for gynecological examination with abnormal finding- Primary Routine gynecological examination Menorrhagia with regular cycle Excessive or frequent menstruation documented in this encounter [facility]* Diagnosis Attention deficit hyperactivity disorder (ADHD), unspecified ADHD type- Primary Tremor Abnormal involuntary movements Eyelid twitch Abnormal involuntary movements Acne vulgaris Other acne Class 2 obesity due to excess calories with body mass index (BMI) of 37.0 to 37.9 in adult, unspecified whether serious comorbidity present [facility]* Diagnosis Menorrhagia with regular cycle- Primary Excessive or frequent menstruation documented [facility] this encounter [facility]* Diagnosis Abnormal uterine bleeding (AUB)- Primary [facility]* Diagnosis Attention deficit hyperactivity disorder (ADHD), unspecified ADHD type documented [facility] this encounter [facility]* Diagnosis Encounter for sterilization- Primary Sterilization Preoperative examination Preoperative examination, unspecified [facility]* Diagnosis Attention deficit hyperactivity disorder (ADHD), unspecified ADHD type- Primary Anxiety and depression Dysthymic disorder Obesity due to excess calories without serious comorbidity, unspecified classification documented in this encounter [facility] note* Diagnosis Onset Date Resolution Status Sterilization acute [facility] Work Phone: Evaluation note* Diagnosis Encounter for sterilization- Primary Sterilization [facility]* Diagnosis Attention deficit hyperactivity disorder (ADHD), unspecified ADHD type documented [facility] this encounter [facility]* Diagnosis Attention deficit hyperactivity disorder (ADHD), unspecified ADHD type- Primary documented in this encounter [facility]* Diagnosis Breast pain- Primary Mastodynia Large breasts Hypertrophy of breast documented in this encounter [facility]* Diagnosis Breast pain- Primary Mastodynia Mass of right breast, unspecified quadrant Breast pain Mastodynia Mass of right breast, unspecified quadrant Breast pain Mastodynia Mass of right breast, unspecified quadrant [facility] Diagnosis Breast pain Mastodynia Mass of right breast, unspecified quadrant [facility] Diagnosis Breast pain Mastodynia Mass of right breast, unspecified quadrant [facility]* Diagnosis URI, acute- Primary Acute upper respiratory infections of unspecified site Nausea Nausea alone documented in this encounter [facility] note* Diagnosis Attention deficit hyperactivity disorder (ADHD), unspecified ADHD type- Primary Encounter for long-term current use of medication Encounter for immunization Need for other specified prophylactic vaccination against single bacterial disease documented in this encounter [facility] note* Diagnosis Attention deficit hyperactivity disorder (ADHD), unspecified ADHD type- Primary Anxiety and depression Dysthymic disorder Dry eyes Tear film insufficiency, unspecified documented in this encounter [facility] note* Diagnosis Feared complaint without diagnosis Person with feared complaint in whom no diagnosis was made documented in this encounter [facility] note* Diagnosis Encounter for gynecological examination with abnormal finding- Primary Routine gynecological examination Hirsutism Acne vulgaris Other acne Unintended weight gain Abnormal weight gain Class 2 obesity due to excess calories without serious comorbidity with body mass index (BMI) of 38.0 to 38.9 in adult documented in this encounter [facility] note* Diagnosis Attention deficit hyperactivity disorder (ADHD), unspecified ADHD type documented [facility] this encounter [facility]* Diagnosis Attention deficit hyperactivity disorder (ADHD), unspecified ADHD type documented in this encounter [facility]* Diagnosis Attention deficit hyperactivity disorder (ADHD), unspecified ADHD type- Primary Primary hypertension Unspecified essential hypertension Hypochromic microcytic anemia Iron deficiency anemia, unspecified Class 2 obesity due to excess calories with body mass index (BMI) of 38.0 to 38.9 in adult, unspecified whether serious comorbidity present Lipid screening Screening for lipoid disorders Encounter for long-term current use of medication documented [facility] this encounter [facility]* Diagnosis Viral URI- Primary Acute upper respiratory infections of unspecified site documented [facility] this encounter [facility]* Diagnosis Attention deficit hyperactivity disorder (ADHD), unspecified ADHD type documented [facility] this encounter [facility]* Diagnosis Attention deficit hyperactivity disorder (ADHD), unspecified ADHD type documented [facility] this encounter [facility]* Diagnosis Attention deficit hyperactivity disorder (ADHD), unspecified ADHD type- Primary documented in this encounter [facility]* Diagnosis Attention deficit hyperactivity disorder (ADHD), unspecified ADHD type [facility]* Diagnosis Sore throat- Primary Acute pharyngitis [facility]* Diagnosis Attention deficit hyperactivity disorder (ADHD), unspecified ADHD type documented [facility] this encounter [facility]* Diagnosis Right upper quadrant abdominal pain- Primary Abdominal pain, right upper quadrant Flank pain Abdominal pain, unspecified site documented in this encounter [facility]* Diagnosis Attention deficit hyperactivity disorder (ADHD), unspecified ADHD type- Primary Iron deficiency Iron deficiency anemia, unspecified Primary hypertension Unspecified essential hypertension Class 2 obesity due to excess calories with body mass index (BMI) of 38.0 to 38.9 in adult, unspecified whether serious comorbidity present documented [facility] encounter [facility]* Diagnosis Acute cough documented in this encounter [facility]* Diagnosis Attention deficit hyperactivity disorder (ADHD), unspecified ADHD type documented in this encounter [facility] note* Diagnosis Viral URI- Primary Acute upper respiratory infections of unspecified site Acute cough documented [facility] this encounter [facility]* Diagnosis Attention deficit hyperactivity disorder (ADHD), unspecified ADHD type- Primary Essential (primary) hypertension Unspecified essential hypertension Iron deficiency anemia, unspecified iron deficiency anemia type Radiculopathy, thoracic region Thoracic or lumbosacral neuritis or radiculitis, unspecified Encounter for long-term current use of medication Obesity, Class II, BMI 35-39.9 Obesity, unspecified documented in this encounter [facility] note* Diagnosis Encounter for gynecological examination (general) (routine) without abnormal findings- Primary Screening for cervical cancer Screening for malignant neoplasm of the cervix Encounter for screening for human papillomavirus (HPV) Special screening examination for human papillomavirus (HPV) BMI 38.0-38.9,adult Body Mass Index 38.0-38.9, adult documented in this encounter [facility] note* Diagnosis Attention deficit hyperactivity disorder (ADHD), unspecified ADHD type [facility] Additional Instructions 1. Disc continue application of triple antibiotic ointment. 2. If you wish to apply appointment use bacitracin ointment. 3. Take antibiotics until gone 4. If you develop temperature greater than 100 have shaking chills or red streak toward your groin [facility] Discharge instructions No data available for this section [facility] Instructions* Attachments The following attachments cannot be sent through Care Everywhere. * Breast Health ([facility]) ([place]itian) * Breast Pain (Mastalgia) ([facility]) ([place]) [facility] No data available for this section [facility] Progress note Author Sergio Mcfarland [facility] Note Date/Time August 10, 2024 9:48a m [facility] [address] [place] [address] OFFICE VISIT Date of Service: 08/10/24 MR#: [id number] Acct: [id number] Name: LIUDMILA WORLEY Rep #: [id number] : 1985 Provider: Sergio Mcfarland DO Age/Sex: 38/F Location: [facility] Status: Signed Intake Vital Signs 07/05/24 [...] to the office today for hospital followup. [facility] hospitalization 07.04.24 - 07.06.24 abd pain - [...] is a 38-year-old female who presented to [facility] ED on 07/04/2024 with RUQ [...] Cosigner Signature: Date (if applicable) CC: ~ [facility] Work Phone: Reason for referral (narrative)* Diagnostic Procedure Only (Routine) - Authorized Specialty Diagnoses / Procedures Referred By Travis garcia Referred To Contact [facility] Diagnoses Menorrhagia with regular cycle Procedures PELVIC US I US PELVIC NONOBSTETRIC REAL-TIME IMAGE COMPLETE Jaylan Syed MD [address] [place] [address] [address] [address] [place] [address] Referral ID Status Reason Start Date Expiration Date Visits Requested Visits Authorized [id number] Authorized Auto-Generat ed Referral 09/19/2021 09/19/2022 1 1 * Outpatient Procedure (Routine) - Authorized Specialty Diagnoses / Procedures Referred By Travis garcia Referred To Contact [facility] Diagnoses Menorrhagia with regular cycle Procedures ENDOMETRIAL BIOPSY ENDOMETRIAL BX W/WO ENDOCERVIX BX W/O DILAT SPX Jaylan Syed MD [address] [place] [address] [facility] [address] [place] [address] Referral ID Status Reason Start Date Expiration Date Visits Requested Visits Authorized [id number] Authorized Auto-Generat ed Referral 09/19/2021 09/19/2022 1 1 [facility] for referral (narrative)* Diagnostic Procedure Only (Routine) - Authorized Specialty Diagnoses / Procedures Referred By Travis garcia Referred To Contact [facility] Diagnoses Breast pain Large breasts Procedures US BREAST LTD RT US BREAST UNI REAL TIME WITH IMAGE LIMITED Kayla Denny MD [address] [place] [address] [facility] [address] [place] [address] Referral ID Status Reason Start Date Expiration Date Visits Requested Visits Authorized [id number] Authorized Auto-Generat ed Referral 2 02/27/2023 1 1 * Diagnostic Procedure Only (Routine) - Authorized Specialty Diagnoses / Procedures Referred By Travis garcia Referred To Contact [facility] Diagnoses Breast pain Large breasts Procedures MATA DIAGNOSTIC BILAT DIAGNOSTIC MAMMOGRAPHY COMPUTER-AIDED DETCJ BI Kayla Denny MD [address] [place] [address] [facility] [address] [place] [phone] Referral ID Status Reason Start Date Expiration Date Visits Requested Visits Authorized [id number] Authorized Auto-Generat ed Referral 02/27/2023 1 1 [facility] for referral (narrative)No reason for referral information availableWThe [facility] Work Phone: Chief Complaint and Reason for [...] July 27, 2021 1 2:43pm Power of Digital Campaign Specialist No July 27, 2021 12:43pm Advance Directive Response Recorded Date/ Time Advance Directives No April 8:45am Living Will No November 08 12:23pm Power of Digital Campaign Specialist No November 08, 2021 12:23pm Advance Directive Response Recorded Date/ Time Advance Directives No April 8:45am Living Will No June 22, 2022 4:46pm Power of Digital Campaign Specialist No June 22 4:46pm Advance Directive Response Recorded Date/ Time Do you have a Healthcare Power of Digital Campaign Specialist? No July 04, 2024 6:20am Advance Directives No April 8:45am Advance Directive Response Recorded Date/ Time Do you have a Healthcare Power of Digital Campaign Specialist? No July 04, 2024 11:02am Advance Directives No April 8:45am Reason for Referral Specialty Diagnoses / Procedures Referred By Contac t Referred To Contact Diagnoses Breast pain Mass of right breast, unspecified quadrant Procedures US BREAST LIMITED UNILATERAL RIGHT Venita Nair, BIOLOGY LABORATORY ASSISTANT-BIOMETRICS SPECIALIST [address] [place] [address] Referral ID Status Reason Start Date Expiration Date V isits Requested Visits Authorized [id number] New Request 02/15/2022 03/12/2023 1 1 Specialty Diagnoses / Procedures Referred By Contac t Referred To Contact Diagnoses Breast pain Mass of right breast, unspecified quadrant Procedures MAMMO DIAGNOSTIC WITH MATA BILATERAL Venita Nair, BIOLOGY LABORATORY ASSISTANT-BIOMETRICS SPECIALIST [address] [place] [address] Referral ID Status Reason Start Date Expiration Date V isits Requested Visits Authorized [id number] New Request 02/15/2022 03/12/2023 1 1 Specialty Diagnoses / Procedures Referred By Contac t Referred To Contact Diagnoses Attention deficit hyperactivity disorder (ADHD), unspecified ADHD type Mena Vernon MD [address] [place] [address] Referral ID Status Reason Start Date Expiration Date Visits Re quested Visits Authorized [id number] Closed 1 1 Referral ID Status Reason Start Date Expiration Date Visits Re quested Visits Authorized [id number] Closed 1 1 Referral ID Status Reason Start Date Expiration Date Visits Re quested Visits Authorized [id number] Closed 1 1 Specialty Diagnoses / Procedures Referred By Contac t Referred To Contact Diagnoses Anxiety and depression Mena Vernon MD [address] [place] [address] Referral ID Status Reason Start Date Expiration Date Visits Re quested Visits Authorized [id number] Closed 1 1 Referral ID Status Reason Start Date Expiration Date V isits Requested Visits Authorized [id number] Authorized 1 1 Referral ID Status Reason Start Date Expiration Date V isits Requested Visits Authorized [id number] Authorized 1 1 Referral ID Status Reason Start Date Expiration Date V isits Requested Visits Authorized [id number] Authorized 1 1 Specialty Diagnoses / Procedures Referred By Contac t Referred To Contact Diagnoses Class 2 obesity due to excess calories without serious comorbidity with body mass index (BMI) of 38.0 to 38.9 in adult Procedures [facility] WE[facility] PROGRAM OFFICE/OUTPATIENT NEW [facility] MDM 60-74 MINUTES Jaylan Syed MD [address] [place] [address] Referral ID Status Reason Start Date Expiration Date Visits Requested Visits Authorized [id number] Authorized PCP Requested Referral Auto-Generate d Referral 10/22/2022 10/22/2023 1 1 Referral ID Status Reason Start Date Expiration Date Visits Re quested Visits Authorized [id number] Closed 1 1 Specialty Diagnoses / Procedures Referred By Contac t Referred To Contact Diagnoses Attention deficit hyperactivity disorder (ADHD), unspecified ADHD type Deepti Redd APRN.RANGE MANAGEMENT SPECIALIST [address] [place] [address] Referral ID Status Reason Start Date Expiration Date Visits Re quested Visits Authorized [id number] Closed 1 1 Referral ID Status Reason Start Date Expiration Date Visits Re quested Visits Authorized [id number] Closed 1 1 Referral ID Status Reason Start Date Expiration Date Visits Re quested Visits Authorized [id number] Closed 1 1 Referral ID Status Reason Start Date Expiration Date Visits Re quested Visits Authorized [id number] Closed 1 1 Specialty Diagnoses / Procedures Referred By Contleonardo t Referred To Contact Diagnoses Attention deficit hyperactivity disorder (ADHD), unspecified ADHD type Karol Vergara APRN.BIOMETRICS SPECIALIST [address] [place] [address] Referral ID Status Reason Start Date Expiration Date Visits Re quested Visits Authorized [id number] Closed 1 1 Referral ID Status Reason Start Date Expiration Date Visits Re quested Visits Authorized [id number] Closed 1 1 Summary Purpose Family History [...] or prosecute any alcohol or drug abuse patient.[facility] HealthcareIn the event this information is protected by the Federal Confidentiality of Alcohol and Drug Abuse Patient Records regulations: The Federal rules restrict any use of the information to criminally investigate or prosecute any alcohol or drug abuse patient.[facility] HealthcareIn the event this information is protected by the Federal Confidentiality of Alcohol and Drug Abuse Patient Records regulations: The Federal rules restrict any use of the information to criminally investigate or prosecute any alcohol or drug abuse patient.[facility] HealthcareIn the event this information is protected by the Federal Confidentiality of Alcohol and Drug Abuse Patient Records regulations: The Federal rules restrict any use of the information to criminally investigate or prosecute any alcohol or drug abuse patient.[facility] HealthcareIn the event this information is protected by the Federal Confidentiality of Alcohol and Drug Abuse Patient Records regulations: The Federal rules restrict any use of the information to criminally investigate or prosecute any alcohol or drug abuse patient.[facility] HealthcareIn the event this information is protected by the Federal Confidentiality of Alcohol and Drug Abuse Patient Records regulations: The Federal rules restrict any use of the information to criminally investigate or prosecute any alcohol or drug abuse patient.[facility] HealthcareIn the event this information is protected by the Federal Confidentiality of Alcohol and Drug Abuse Patient Records regulations: The Federal rules restrict any use of the information to criminally investigate or prosecute any alcohol or drug abuse patient.[facility] HealthcareIn the event this information is protected by the Federal Confidentiality of Alcohol and Drug Abuse Patient Records regulations: The Federal rules restrict any use of the information to criminally investigate or prosecute any alcohol or drug abuse patient.[facility] HealthcareIn the event this information is protected by the Federal Confidentiality of Alcohol and Drug Abuse Patient Records regulations: The Federal rules restrict any use of the information to criminally investigate or prosecute any alcohol or drug abuse patient.[facility] HealthcareIn the event this information is protected by the Federal Confidentiality of Alcohol and Drug Abuse Patient Records regulations: The Federal rules restrict any use of the information to criminally investigate or prosecute any alcohol or drug abuse patient.[facility] HealthcareIn the event this information is protected by the Federal Confidentiality of Alcohol and Drug Abuse Patient Records regulations: The Federal rules restrict any use of the information to criminally investigate or prosecute any alcohol or drug abuse patient.[facility] HealthcareIn the event this information is protected by the Federal Confidentiality of Alcohol and Drug Abuse Patient Records regulations: The Federal rules restrict any use of the information to criminally investigate or prosecute any alcohol or drug abuse patient.[facility] HealthcareIn the event this information is protected by the Federal Confidentiality of Alcohol and Drug Abuse Patient Records regulations: The Federal rules restrict any use of the information to criminally investigate or prosecute any alcohol or drug abuse patient.[facility] HealthcareIn the event this information is protected by the Federal Confidentiality of Alcohol and Drug Abuse Patient Records regulations: The Federal rules restrict any use of the information to criminally investigate or prosecute any alcohol or drug abuse patient.[facility] HealthcareIn the event this information is protected by the Federal Confidentiality of Alcohol and Drug Abuse Patient Records regulations: The Federal rules restrict any use of the information to criminally investigate or prosecute any alcohol or drug abuse patient.[facility] HealthcareIn the event this information is protected by the Federal Confidentiality of Alcohol and Drug Abuse Patient Records regulations: The Federal rules restrict any use of the information to criminally investigate or prosecute any alcohol or drug abuse patient.[facility] HealthcareIn the event this information is protected by the Federal Confidentiality of Alcohol and Drug Abuse Patient Records regulations: The Federal rules restrict any use of the information to criminally investigate or prosecute any alcohol or drug abuse patient.[facility] HealthcareIn the event this information is protected by the Federal Confidentiality of Alcohol and Drug Abuse Patient Records regulations: The Federal rules restrict any use of the information to criminally investigate or prosecute any alcohol or drug abuse patient.[facility] HealthcareIn the event this information is protected by the Federal Confidentiality of Alcohol and Drug Abuse Patient Records regulations: The Federal rules restrict any use of the information to criminally investigate or prosecute any alcohol or drug abuse patient.[facility] HealthcareIn the event this information is protected by the Federal Confidentiality of Alcohol and Drug Abuse Patient Records regulations: The Federal rules restrict any use of the information to criminally investigate or prosecute any alcohol or drug abuse patient.[facility] HealthcareIn the event this information is protected by the Federal Confidentiality of Alcohol and Drug Abuse Patient Records regulations: The Federal rules restrict any use of the information to criminally investigate or prosecute any alcohol or drug abuse patient.[facility] HealthcareIn the event this information is protected by the Federal Confidentiality of Alcohol and Drug Abuse Patient Records regulations: The Federal rules restrict any use of the information to criminally investigate or prosecute any alcohol or drug abuse patient.[facility] HealthcareIn the event this information is protected by the Federal Confidentiality of Alcohol and Drug Abuse Patient Records regulations: The Federal rules restrict any use of the information to criminally investigate or prosecute any alcohol or drug abuse patient.[facility] HealthcareIn the event this information is protected by the Federal Confidentiality of Alcohol and Drug Abuse Patient Records regulations: The Federal rules restrict any use of the information to criminally investigate or prosecute any alcohol or drug abuse patient.[facility] HealthcareIn the event this information is protected by the Federal Confidentiality of Alcohol and Drug Abuse Patient Records regulations: The Federal rules restrict any use of the information to criminally investigate or prosecute any alcohol or drug abuse patient.[facility] HealthcareIn the event this information is protected by the Federal Confidentiality of Alcohol and Drug Abuse Patient Records regulations: The Federal rules restrict any use of the information to criminally investigate or prosecute any alcohol or drug abuse patient.[facility] HealthcareIn the event this information is protected by the Federal Confidentiality of Alcohol and Drug Abuse Patient Records regulations: The Federal rules restrict any use of the information to criminally investigate or prosecute any alcohol or drug abuse patient.[facility] HealthcareIn the event this information is protected by the Federal Confidentiality of Alcohol and Drug Abuse Patient Records regulations: The Federal rules restrict any use of the information to criminally investigate or prosecute any alcohol or drug abuse patient.[facility] HealthcareIn the event this information is protected by the Federal Confidentiality of Alcohol and Drug Abuse Patient Records regulations: The Federal rules restrict any use of the information to criminally investigate or prosecute any alcohol or drug abuse patient.[facility] HealthcareIn the event this information is protected by the Federal Confidentiality of Alcohol and Drug Abuse Patient Records regulations: The Federal rules restrict any use of the information to criminally investigate or prosecute any alcohol or drug abuse patient.[facility] HealthcareIn the event this information is protected by the Federal Confidentiality of Alcohol and Drug Abuse Patient Records regulations: The Federal rules restrict any use of the information to criminally investigate or prosecute any alcohol or drug abuse patient.[facility] HealthcareIn the event this information is protected by the Federal Confidentiality of Alcohol and Drug Abuse Patient Records regulations: The Federal rules restrict any use of the information to criminally investigate or prosecute any alcohol or drug abuse patient.[facility] HealthcareIn the event this information is protected by the Federal Confidentiality of Alcohol and Drug Abuse Patient Records regulations: The Federal rules restrict any use of the information to criminally investigate or prosecute any alcohol or drug abuse patient.[facility] HealthcareIn the event this information is protected by the Federal Confidentiality of Alcohol and Drug Abuse Patient Records regulations: The Federal rules restrict any use of the information to criminally investigate or prosecute any alcohol or drug abuse patient.[facility] HealthcareIn the event this information is protected by the Federal Confidentiality of Alcohol and Drug Abuse Patient Records regulations: The Federal rules restrict any use of the information to criminally investigate or prosecute any alcohol or drug abuse patient.[facility] HealthcareIn the event this information is protected by the Federal Confidentiality of Alcohol and Drug Abuse Patient Records regulations: The Federal rules restrict any use of the information to criminally investigate or prosecute any alcohol or drug abuse patient.[facility] HealthcareIn the event this information is protected by the Federal Confidentiality of Alcohol and Drug Abuse Patient Records regulations: The Federal rules restrict any use of the information to criminally investigate or prosecute any alcohol or drug abuse patient.[facility] HealthcareIn the event this information is protected by the Federal Confidentiality of Alcohol and Drug Abuse Patient Records regulations: The Federal rules restrict any use of the information to criminally investigate or prosecute any alcohol or drug abuse patient.[facility] HealthcareIn the event this information is protected by the Federal Confidentiality of Alcohol and Drug Abuse Patient Records regulations: The Federal rules restrict any use of the information to criminally investigate or prosecute any alcohol or drug abuse patient.[facility] HealthcareIn the event this information is protected by the Federal Confidentiality of Alcohol and Drug Abuse Patient Records regulations: The Federal rules restrict any use of the information to criminally investigate or prosecute any alcohol or drug abuse patient.[facility] HealthcareIn the event this information is protected by the Federal Confidentiality of Alcohol and Drug Abuse Patient Records regulations: The Federal rules restrict any use of the information to criminally investigate or prosecute any alcohol or drug abuse patient.[facility] HealthcareIn the event this information is protected by the Federal Confidentiality of Alcohol and Drug Abuse Patient Records regulations: The Federal rules restrict any use of the information to criminally investigate or prosecute any alcohol or drug abuse patient.[facility] HealthcareIn the event this information is protected by the Federal Confidentiality of Alcohol and Drug Abuse Patient Records regulations: The Federal rules restrict any use of the information to criminally investigate or prosecute any alcohol or drug abuse patient.[facility] HealthcareIn the event this information is protected by the Federal Confidentiality of Alcohol and Drug Abuse Patient Records regulations: The Federal rules restrict any use of the information to criminally investigate or prosecute any alcohol or drug abuse patient.[facility] HealthcareIn the event this information is protected by the Federal Confidentiality of Alcohol and Drug Abuse Patient Records regulations: The Federal rules restrict any use of the information to criminally investigate or prosecute any alcohol or drug abuse patient.[facility] HealthcareIn the event this information is protected by the Federal Confidentiality of Alcohol and Drug Abuse Patient Records regulations: The Federal rules restrict any use of the information to criminally investigate or prosecute any alcohol or drug abuse patient.[facility] HealthcareIn the event this information is protected by the Federal Confidentiality of Alcohol and Drug Abuse Patient Records regulations: The Federal rules restrict any use of the information to criminally investigate or prosecute any alcohol or drug abuse patient.[facility] HealthcareIn the event this information is protected by the Federal Confidentiality of Alcohol and Drug Abuse Patient Records regulations: The Federal rules restrict any use of the information to criminally investigate or prosecute any alcohol or drug abuse patient.[facility] HealthcareIn the event this information is protected by the Federal Confidentiality of Alcohol and Drug Abuse Patient Records regulations: The Federal rules restrict any use of the information to criminally investigate or prosecute any alcohol or drug abuse patient.[facility] HealthcareIn the event this information is protected by the Federal Confidentiality of Alcohol and Drug Abuse Patient Records regulations: The Federal rules restrict any use of the information to criminally investigate or prosecute any alcohol or drug abuse patient.[facility] HealthcareIn the event this information is protected by the Federal Confidentiality of Alcohol and Drug Abuse Patient Records regulations: The Federal rules restrict any use of the information to criminally investigate or prosecute any alcohol or drug abuse patient.[facility] HealthcareIn the event this information is protected by the Federal Confidentiality of Alcohol and Drug Abuse Patient Records regulations: The Federal rules restrict any use of the information to criminally investigate or prosecute any alcohol or drug abuse patient.[facility] HealthcareIn the event this information is protected by the Federal Confidentiality of Alcohol and Drug Abuse Patient Records regulations: The Federal rules restrict any use of the information to criminally investigate or prosecute any alcohol or drug abuse patient.[facility] HealthcareIn the event this information is protected by the Federal Confidentiality of Alcohol and Drug Abuse Patient Records regulations: The Federal rules restrict any use of the information to criminally investigate or prosecute any alcohol or drug abuse patient.[facility] HealthcareIn the event this information is protected by the Federal Confidentiality of Alcohol and Drug Abuse Patient Records regulations: The Federal rules restrict any use of the information to criminally investigate or prosecute any alcohol or drug abuse patient.[facility] HealthcareIn the event this information is protected by the Federal Confidentiality of Alcohol and Drug Abuse Patient Records regulations: The Federal rules restrict any use of the information to criminally investigate or prosecute any alcohol or drug abuse patient.[facility] HealthcareIn the event this information is protected by the Federal Confidentiality of Alcohol and Drug Abuse Patient Records regulations: The Federal rules restrict any use of the information to criminally investigate or prosecute any alcohol or drug abuse patient.[facility] HealthcareIn the event this information is protected by the Federal Confidentiality of Alcohol and Drug Abuse Patient Records regulations: The Federal rules restrict any use of the information to criminally investigate or prosecute any alcohol or drug abuse patient.[facility] Reason for Visit (unrecogniz ed section and content) Reason Onset Date Comments Barky Cough 08/09/2021 Reason Onset Date Comments Refill Request 08/13/2021 Reason Comments Follow Up Reason Comments Endometrial Biopsy Specialty Diagnoses / Procedures Referred By Travis garcia Referred To Contact [facility] Diagnoses Menorrhagia with regular cycle Procedures ENDOMETRIAL BIOPSY ENDOMETRIAL BX W/WO ENDOCERVIX BX W/O DILAT SPX Jaylan Syed MD [address] [place] [address] [facility] [address] [place] [address] Referral ID Status Reason Start Date Expiration Date V isits Requested Visits Authorized [id number] Closed Auto-Generate d Referral 09/19/2021 09/19/2022 1 1 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 Comments Medication Question Reason Comments Pre-Op Visit Reason Comments Med Management Anxiety Depression Weight Management Reason Onset Date Comments Med Change Request 12/28/2021 Reason Onset Date Comments Refill Request 12/31/2021 patient wants br and name Ricky rx Reason Comments Breast Problem Reason Comments fax orders to [facility] Reason Comments Patient Question Reason Comments New [...] DIAGNOSTIC BREAST CLINIC Self, Self Venita Nair BIOLOGY LABORATORY ASSISTANT-BIOMETRICS SPECIALIST [address] [place] [address] Referral ID Status Reason Start Date Expiration Date V isits Requested Visits Authorized [id number] New Request 02/15/2022 03/12/2023 1 1 Specialty Diagnoses / Procedures Referred By Contac t Referred To Contact Diagnoses Breast pain Mass of right breast, unspecified quadrant Procedures MAMMO DIAGNOSTIC WITH MATA BILATERAL Venita Nair BIOLOGY LABORATORY ASSISTANT-BIOMETRICS SPECIALIST [address] [id number] Referral ID Status Reason Start Date Expiration Date V isits Requested Visits Authorized [id number] New Request 02/15/2022 03/12/2023 1 1 Specialty Diagnoses / Procedures Referred By Contac t Referred To Contact Diagnoses Breast pain Mass of right breast, unspecified quadrant Procedures US BREAST LIMITED UNILATERAL RIGHT Venita Nair BIOLOGY LABORATORY ASSISTANT-BIOMETRICS SPECIALIST [address] [id number] Referral ID Status Reason Start Date Expiration Date V isits Requested Visits Authorized [id number] New Request 02/15/2022 03/12/2023 1 1 Reason [...] Procedures EST SAME DAY [facility] [address] [place] [address] Referral ID Status Reason Start Date Expiration Date Visits Requested Visits Authorized [id number] Pending Review Financial Clearance Required - Self [...] Referred To Contact Radiology / [facility] Diagnoses 2 Procedures XR CHEST Athy, Shima R, PA-C [address] [place] [address] [facility] [address] [place] [address] Referral ID Status Reason Start Date Expiration Date V isits Requested Visits Authorized [id number] Closed Clearance Not Met -Financial Clearance Bypassed [...] Other Provider Active Start: July 05, 2024 Felt Dyeing Machine Tender Relationship Specialty Start Date End Date Mena Vernon MD [address] [place] [address] PCP - General Internal Medicine 05/13/13 Felt Dyeing Machine Tender Relationship Specialty Start Date End Date Mena Vernon MD [address] [place], [place] [id number] PCP - General Internal Medicine 05/13/13 Felt Dyeing Machine Tender Relationship Specialty Start Date End Date Mena Vernon MD [address] [place], [place] [id number] PCP - General Internal Medicine 05/13/13 Felt Dyeing Machine Tender Relationship Specialty Start Date End Date Mena Vernon MD [address] [place] [address] PCP - General Internal Medicine 05/13/13 Felt Dyeing Machine Tender Relationship Specialty Start Date End Date Mena Vernon MD [address] [place] [address] PCP - General Internal Medicine 05/13/13 Felt Dyeing Machine Tender Relationship Specialty Start Date End Date Mena Vernon MD [address] [facility] [address] PCP - General Internal Medicine 05/13/13 Felt Dyeing Machine Tender Relationship Specialty Start Date End Date Mena Vernon MD [address] [facility] [address] PCP - General Internal Medicine 05/13/13 Felt Dyeing Machine Tender Relationship Specialty Start Date End Date Mena Vernon MD [facility] [address] PCP - General Internal Medicine 05/13/13 Felt Dyeing Machine Tender Relationship Specialty Start Date End Date Mena Vernon MD [address] [facility] [address] PCP - General Internal Medicine 05/13/13 Felt Dyeing Machine Tender Relationship Specialty Start Date End Date Mena Vernon MD [address] [place] [address] PCP - General Internal Medicine 05/13/13 Felt Dyeing Machine Tender Relationship Specialty Start Date End Date Mena Vernon MD [address] [facility] [place] [address] PCP - General Internal Medicine 02/15/22 Jaylan Syed MD [address] [facility] [address] Support Services Coordinator Obstetrics & Gynecology 02/15/22 Felt Dyeing Machine Tender Relationship Specialty Start Date End Date Mena Vernon MD [address] [facility] [place] [address] PCP - General Internal Medicine 02/15/22 Jaylan Syed MD [address] [place] [address] Support Services Coordinator Obstetrics & Gynecology 02/15/22 Felt Dyeing Machine Tender Relationship Specialty Start Date End Date Mena Vernon MD [address] [facility] [place] [address] PCP - General Internal Medicine 02/15/22 Jaylan Syed MD [address] [place] [address] Support Services Coordinator Obstetrics & Gynecology 02/15/22 Felt Dyeing Machine Tender Relationship Specialty Start Date End Date Mena Vernon MD [address] [facility] [address] PCP - General Internal Medicine 05/13/13 Felt Dyeing Machine Tender Relationship Specialty Start Date End Date Mena Vernon MD [address] [facility] [address] PCP - General Internal Medicine 05/13/13 Felt Dyeing Machine Tender Relationship Specialty Start Date End Date Mena Vernon MD [address] [facility] [address] PCP - General Internal Medicine 05/13/13 Team Status: Active Member Role Status Dates Dr. Mena Vernon MD Family Provider Active Dr. Mena Vernon MD Primary Care Provider Active Team Status: Inactive Member Role Status Dates Dr. Mena Vernon MD Primary Care Provider Active Dr. Johnny Barney MD Emergency Provider Active Felt Dyeing Machine Tender Relationship Specialty Start Date End Date Mena Vernon MD [address] [facility] [address] PCP - General Internal Medicine 05/13/13 Felt Dyeing Machine Tender Relationship Specialty Start Date End Date Mena Vernon MD [address] [place] [address] PCP - General Internal Medicine 05/13/13 Felt Dyeing Machine Tender Relationship Specialty Start Date End Date Mena Vernon MD [address] [place] [address] PCP - General Internal Medicine 05/13/13 Felt Dyeing Machine Tender Relationship Specialty Start Date End Date Mena Vernon MD [address] [place] [address] PCP - General Internal Medicine 05/13/13 Felt Dyeing Machine Tender Relationship Specialty Start Date End Date Mena Vernon MD [address] [place] [address] PCP - General Internal Medicine 05/13/13 Felt Dyeing Machine Tender Relationship Specialty Start Date End Date Mena Vernon MD [address] [place] [address] PCP - General Internal Medicine 05/13/13 Felt Dyeing Machine Tender Relationship Specialty Start Date End Date Mena Vernon MD [address] [place] [address] PCP - General Internal Medicine 05/13/13 Felt Dyeing Machine Tender Relationship Specialty Start Date End Date Mena Vernon MD [address] [place] [address] PCP - General Internal Medicine 05/13/13 Felt Dyeing Machine Tender Relationship Specialty Start Date End Date Mena Vernon MD [address] [place] [address] PCP - General Internal Medicine 05/13/13 Felt Dyeing Machine Tender Relationship Specialty Start Date End Date Mena Vernon MD [address] [facility] [address] PCP - General Internal Medicine 05/13/13 Felt Dyeing Machine Tender Relationship Specialty Start Date End Date Mena Vernon MD [address] [facility] [address] PCP - General Internal Medicine 05/13/13 Felt Dyeing Machine Tender Relationship Specialty Start Date End Date Mena Vernon MD [address] [facility] [address] PCP - General Internal Medicine 05/13/13 Felt Dyeing Machine Tender Relationship Specialty Start Date End Date Mena Vernon MD [address] [facility] [address] PCP - General Internal Medicine 05/13/13 Felt Dyeing Machine Tender Relationship Specialty Start Date End Date Mena Vernon MD [address] [facility] [address] PCP - General Internal Medicine 05/13/13 Felt Dyeing Machine Tender Relationship Specialty Start Date End Date Mena Vernon MD [address] [facility] [address] PCP - General Internal Medicine 05/13/13 Felt Dyeing Machine Tender Relationship Specialty Start Date End Date Mena Vernon MD [address] [facility] [address] PCP - General Internal Medicine 05/13/13 Felt Dyeing Machine Tender Relationship Specialty Start Date End Date Mena Vernon MD [address] [place] [address] PCP - General Internal Medicine 05/13/13 Felt Dyeing Machine Tender Relationship Specialty Start Date End Date Mena Vernon MD [address] [place] [address] PCP - General Internal Medicine 05/13/13 Deepti Redd, BIOLOGY LABORATORY ASSISTANT.RANGE MANAGEMENT SPECIALIST [address] [place] [address] Local Bulk Driver Internal Medicine 02/16/24 Karol Vergara BIOLOGY LABORATORY ASSISTANT.BIOMETRICS SPECIALIST [address] [place] [address] Local Bulk Driver Internal Medicine 02/16/24 Felt Dyeing Machine Tender Relationship Specialty Start Date End Date Mena Vernon MD [address] [place] [address] PCP - General Internal Medicine 05/13/13 Deepti Redd, BIOLOGY LABORATORY ASSISTANT.RANGE MANAGEMENT SPECIALIST [address] [place] [address] Local Bulk Driver Internal Medicine 02/16/24 Karol Vergara BIOLOGY LABORATORY ASSISTANT.BIOMETRICS SPECIALIST [address] [place] [address] Local Bulk Driver Internal Medicine 02/16/24 Felt Dyeing Machine Tender Relationship Specialty Start Date End Date Mena Vernon MD [address] [place] [address] PCP - General Internal Medicine 05/13/13 Deepti Redd, BIOLOGY LABORATORY ASSISTANT.RANGE MANAGEMENT SPECIALIST [address] [facility] [place] [address] [facility] 02/16/24 Karol Vergara APRN.BIOMETRICS SPECIALIST [address] [facility] [address] [facility] 02/16/24 Felt Dyeing Machine Tender Relationship Specialty Start Date End Date Mena Vernon MD [address] [facility] [address] PCP - General Internal Medicine 05/13/13 Deepti Redd APRN.RANGE MANAGEMENT SPECIALIST [address] [facility] [address] [facility] 02/16/24 Karol Vergara APRN.BIOMETRICS SPECIALIST [address] [facility], [place] [address] [facility] 02/16/24 Team Status: Active Member Role Status [...] July 12, 2024 End: July 12, 2024 Felt Dyeing Machine Tender Relationship Specialty Start Date End Date Mena Vernon MD [address] [facility] [address] PCP - General Internal Medicine 05/13/13 Deepti Redd, BIOLOGY LABORATORY ASSISTANT.RANGE MANAGEMENT SPECIALIST [address] [facility] [address] Local Bulk Driver Internal Medicine 02/16/24 Karol Vergara BIOLOGY LABORATORY ASSISTANT.BIOMETRICS SPECIALIST [address] [facility] [address] Local Bulk Driver Internal Medicine 06/01/24 Felt Dyeing Machine Tender Relationship Specialty Start Date End Date Mena Vernon MD [address] [facility] [address] PCP - General Internal Medicine 05/13/13 Deepti Redd, BIOLOGY LABORATORY ASSISTANT.RANGE MANAGEMENT SPECIALIST [address] [facility] [address] Local Bulk Driver Internal Medicine 02/16/24 Karol Vergara BIOLOGY LABORATORY ASSISTANT.BIOMETRICS SPECIALIST [address] [facility] [address] [facility] 06/01/24 Team Status: Active Member [...] Referring Provider Active Start: August 10, 2024 Felt Dyeing Machine Tender Relationship Specialty Start Date End Date Mena Vernon MD [address] [place], [place] [address] PCP - General Internal Medicine 05/13/13 Karol Vergara BIOLOGY LABORATORY ASSISTANT.BIOMETRICS SPECIALIST [address] [place] [address] Local Bulk Driver Internal Medicine 06/01/24 Deepti Redd, BIOLOGY LABORATORY ASSISTANT.RANGE MANAGEMENT SPECIALIST [address] [facility] [address] Local Bulk Driver Internal Medicine 07/28/24 Felt Dyeing Machine Tender Relationship Specialty Start Date End Date Mena Vernon MD [address] [facility] [place], [place] [address] PCP - General Internal Medicine 05/13/13 Karol Vergara, BIOLOGY LABORATORY ASSISTANT.BIOMETRICS SPECIALIST [address] [place] [address] Local Bulk Driver Internal Medicine 06/01/24 Deepti Redd, BIOLOGY LABORATORY ASSISTANT.RANGE MANAGEMENT SPECIALIST [address] [place] [address] Local Bulk Driver Internal Medicine 07/28/24 Felt Dyeing Machine Tender Relationship Specialty Start Date End Date Mena Vernon MD [address] [place] [address] PCP - General Internal Medicine 05/13/13 Karol Vergara, BIOLOGY LABORATORY ASSISTANT.BIOMETRICS SPECIALIST [address] [place] [address] Local Bulk Driver Internal Medicine 06/01/24 Deepti Redd, BIOLOGY LABORATORY ASSISTANT.RANGE MANAGEMENT SPECIALIST [address] [place] [address] Local Bulk Driver Internal Medicine 07/28/24 INFORMATION SOURCE (unrecogn ized section and content) DATE CREATED AUTHOR 02/16/2022 [facility] DATE CREATED AUTHOR AUTHOR'S ORGANIZ ATION 11/09/2023 [facility] ([place]) DATE CREATED AUTHOR AUTHOR'S ORGANIZ ATION 07/24/2024 [facility] DATE CREATED AUTHOR AUTHOR'S ORGANIZ ATION 11/14/2024 [facility] DATE CREATED AUTHOR AUTHOR'S ORGANIZ ATION 12/03/2024 [facility] FOR RECORDS PERTAINING TO PATIENTS WHO [...] BE BASED ON THE PRIMARY CLINICAL RECORDS. [facility]. provides no warranty or guarantee of the accuracy or completeness of information in this document.
[2024-12-03] MEDS: Piperacil/Tazobactam 3.375 GM in 0.9% Normal Saline (50mL MB+) 50 ML IV (20:06)
[2024-12-03 20:07] VITALS: BP 132/85; PULSE 74; RESP 16; TEMP 36.1; O2SAT 99
[2024-12-03 20:09] LABS: Squamous Epithelial Cells - UA 5-10 SEEN /hpf (5-10); Transitional Epithelial - Ur 0-5 SEEN /hpf (0-5)
[2024-12-03 20:10] LABS: Red Blood Cells-Urine 0-5 SEEN /hpf (0-5)
[2024-12-03 20:27] VITALS: BMI 39.8
[2024-12-03 20:28] VITALS: BP 131/82; PULSE 79; RESP 16; TEMP 36.6; O2SAT 100
[2024-12-03] MEDS: 0.9% Normal Saline (1000mL) 1,000 ML 125 ML IV (20:56)
[2024-12-03 21:45] LABS: Magnesium 2.2 mg/dL (1.5-2.2)
[2024-12-03] MEDS: Pantoprazole Sodium 40 MG in 0.9% Normal Saline (100mL MB+) 100 ML 330 MG IV (23:17)
[2024-12-03 23:43] VITALS: BP 134/86; PULSE 75; RESP 18; TEMP 36.7; O2SAT 99
--- NOTE | 2024-12-04 03:18 | EKG12_ITS ---
Test Reason : PRE-OP GALLBLADDER Blood Pressure : */* mmHG Vent. Rate : 71 BPM Atrial Rate : 71 BPM P-R Int : 154 ms QRS Dur : 98 ms QT Int : 396 ms P-R-T Axes : 36 72 57 degrees QTcB Int : 430 ms Normal sinus rhythm Normal ECG When compared with ECG of 04-Jul-2024 09:42, No significant change was found Confirmed by LISE CASTAÑEDA, DONTRELL ([id number]), photography editor TANISHA BARFIELD ([id number]) on 12/07/2024 8:14:39 AM Referred By: Confirmed By: DONTRELL LEZAMA MD
[2024-12-04 05:05] VITALS: BMI 40.1
--- NOTE | 2024-12-04 06:00 | NM_ITS ---
PROCEDURE: HEPATOBILLIARY IMAGING 12/04/2024 REASON FOR EXAM: ELEVATED LFT'S, CHOLELITHIASIS TECHNIQUE: Procedure Code: NMHIDA Modality: NM Procedure: HEPATOBILLIARY IMAGING Intravenous Choletec with planar imaging of the abdomen. RADIOPHARMACEUTICAL: 5.8 mCi of MDP COMPARISON: CT and ultrasound from yesterday FINDINGS: Normal uptake of radiotracer by the liver. The uptake is homogeneous no discrete lesion. There is normal excretion of radiotracer from the liver into the biliary tree and duodenum. There is no filling of the gallbladder with radiotracer. This is suggestive of cystic duct obstruction and cholecystitis. NM/Hepatobilliary Imaging IMPRESSION: No uptake of radiotracer within the gallbladder. Findings suggest cystic duct obstruction and cholecystitis Normal uptake of radiotracer within the liver, normal excretion into the biliar y tree and duodenum Reading Location: [id number]
[2024-12-04 06:18] VITALS: BP 95/56; PULSE 70; RESP 16; TEMP 36.6; O2SAT 100
[2024-12-04] MEDS: Piperacil/Tazobactam 3.375 GM in 0.9% Normal Saline (50mL MB+) 50 ML IV ×3 (06:21→21:38)
[2024-12-04] MEDS: 0.9% Normal Saline (1000mL) 1,000 ML 125 ML IV (06:21)
[2024-12-04 06:47] LABS: Hematocrit 38.1 % (37-47); Hemoglobin 12.3 g/dL (12.0-15.0); Immature Granulocytes Count 0.010 X10^3/uL (0.0-0.0); Mean Corp Hgb Conc 32.3 g/dL (32-36); Mean Corpuscular Volume 80.9 fL (81-99); Mean Platelet Vol. 10.7 fl (6.2-12.0); NRBC Flagged by Analyzer 0 % (0-5); Platelet Count 322 K/mm3 (150-450); RBC Distribution Width CV 15.3 % (11.6-14.6); RBC Distribution Width SD 45.8 fl (35.1-43.9); Red Blood Count 4.71 M/mm3 (4.2-5.4); White Blood Count 3.8 K/mm3 (4.4-11.0)
[2024-12-04 07:09] LABS: AST(SGOT) 645 U/L (<=31); Albumin, Serum 4.0 g/dL (3.5-5.0); Alkaline Phosphatase 177 U/L (35-104); Anion Gap 10 (5-15); BUN 7 mg/dL (4-19); BUN/Creat Ratio 12.2 RATIO (10-20); Calcium,Total 8.5 mg/dL (7.6-11.0); Carbon Dioxide 21.3 mmol/L (21.0-32.0); Chloride 108 mmol/L (98-108); Estimated Creatinine Clearance 148.43 ml/min (50-250); Globulin 2.4 g/dL (2.2-4.2); Glucose 90 mg/dL (70-99); Potassium 4.0 mmol/L (3.3-5.1)
[2024-12-04 07:23] LABS: Alanine Aminotransfer ALT/SGPT 1117 U/L (<=34)
--- NOTE | 2024-12-04 08:51 | PN.HOSP_ITS ---
Subjective Subjective Presented with continued frequent abdominal pain and an elevation in her bilirubin. AST and ALT are still elevated and elevated alk phos. Total T. bili is 1.72, plan for HIDA scan today Objective Data Objective Data Vital Signs: Vital Signs Temp Pulse Resp BP Pulse Ox O2 Del Method 97.8 F 70 16 95/56 L 100 Room Air 12/04/24 06:18 12/04/24 06:18 12/04/24 06:18 12/04/24 06:18 12/04/24 06:18 12/04/24 06:18 Oxygen Delivery Method Room Air Weight: 217 lb 13.067 oz Body Mass Index (BMI) 40.1 Intake & Output: Intake and Output for Last 24 Hours 12/03/24 12/04/24 12/05/24 03:59 03:59 03:59 Intake Total 1150 / 1150 1142.09 / 1142.09 Balance 1150 / 1150 1142.09 / 1142.09 Lab / Micro Data 12/04/24 06:05 12/04/24 06:05 Labs: Laboratory Results - last 24 hr 12/03/24 17:32: WBC 4.7, RBC 4.79, Hgb 12.4, Hct 38.4, MCV 80.2 L, MCH 25.9 L, MCHC 32.3, RDW Std Deviation 43.8, RDW Coeff of María 15.1 H, Plt Count 347, MPV 10.5, Immature Gran % (Auto) 0.200, Neut % (Auto) 75.0 H, Lymph % (Auto) 14.3 L, [facility] % (Auto) 9.2, Eos % (Auto) 0.9, Baso % (Auto) 0.4, Absolute Neuts (auto) 3.5, Absolute Lymphs (auto) 0.67 L, Nucleated RBC % 0, Sodium 139, Potassium 4.0, Chloride 105, Carbon Dioxide 23.5, Anion Gap 11, BUN 9, Creatinine 0.63 L, Estim Creat Clear Calc 134.15, Est GFR (MDRD) Non-Af 117, BUN/Creatinine Ratio 14.1, Glucose 95, Calcium 9.4, Magnesium 2.2, Total Bilirubin 1.77 H, AST 1452 H , ALT 1428 H, Alkaline Phosphatase 164 H, Total Protein 7.1, Albumin 4.7, Globulin 2.5, Albumin/Globulin Ratio 1.9, Lipase 64, TSH 1.780 12/03/24 17:40: Urine Color Yellow, Urine Clarity Sl. Cloudy, Urine pH 6.0, Ur Specific [place] 1.030, Urine Protein 30 H, Urine Glucose (UA) Normal, Urine Ketones Negative, Urine Occult Blood Negative, Urine Nitrite Negative, Urine Bilirubin 1 H, Urine Urobilinogen 1 H, Ur Leukocyte Esterase Negative, Urine RBC 0-5 SEEN, Urine WBC 0-5 SEEN, Ur Squamous Epith Cells 5-10 SEEN, Ur Transition Epith Cell 0-5 SEEN, Urine Bacteria 1+, Urine Mucus 0 SEEN 12/04/24 06:05: WBC 3.8 L, RBC 4.71, Hgb 12.3, Hct 38.1, MCV 80.9 L, MCH 26.1 L, MCHC 32.3, RDW Std Deviation 45.8 H, RDW Coeff of María 15.3 H, Plt Count 322, MPV 10.7, Immature Gran % (Auto) 0.300, Neut % (Auto) 61.7, Lymph % (Auto) 22.4, M adrián % (Auto) 12.4 H, Eos % (Auto) 2.4, Baso % (Auto) 0.8, Absolute Neuts (auto) 2.3, Absolute Lymphs (auto) 0.85, Nucleated RBC % 0, Sodium 139, Potassium 4.0, Chloride 108, Carbon Dioxide 21.3, Anion Gap 10, BUN 7, Creatinine 0.57 L, Estim Creat Clear Calc 148.43, Est GFR (MDRD) Non-Af 120, BUN/Creatinine Ratio 12.2, Glucose 90, Calcium 8.5, Phosphorus 2.8, Total Bilirubin 1.72 H, AST 645 H, ALT 1117 H, Alkaline Phosphatase 177 H, Total Protein 6.4, Albumin 4.0, Globulin 2.4, Albumin/Globulin Ratio 1.7 Radiography Diagnostic Testing: Radiology Impression Abdomen/Pelvis CT 12/03/24 17:21 IMPRESSION: 1. No acute findings in the abdomen or pelvis. 2. Scattered colonic diverticulosis without acute diverticulitis. Reading Location: [facility] Gallbladder Ultrasound 12/03/24 17:30 IMPRESSION: Cholelithiasis without evidence of acute cholecystitis. Reading Location: [facility] Physical Exam Narrative General: Alert, Oriented x3, Cooperative, No apparent distress HEENT: Atraumatic, PERRLA, EOMI, Normocephalic Oral: Moist Mucosa Neck: Supple, No JVD Lungs: Clear to auscultation, Normal air movement, No rhonchi, No wheeze, No rales Cardiovascular: Regular rate, Regular Rhythm, Normal S1, Normal S2, No murmurs Abdomen: Soft, RUQ TTP, Non-Distended, No Hepato-splenomegaly Extremities: No edema, Capillary Refill Less than 3 Seconds Skin: No rashes, No breakdown Musculoskeletal: No Tenderness to Palpation of Joints or Extremities Neurological: No focal neurological deficits, Motor Exam 5/5 strength throughout, Sensory exam intact to light touch and pain Psych/Mental Status: Normal Affect, Appropriate Assessment & Plan Assessment/Plan (1) Hyperbilirubinemia: (2) Transaminitis: (3) RUQ abdominal pain: (4) Cholelithiasis: QUALIFIERS: Cholelithiasis location: other site Biliary obstruction: without biliary obstruction Qualified Code(s): K80.80 - Other cholelithiasis without obstruction (5) Obesity (BMI 30-39.9): PLAN: Plan 1. Cholelithiasis with hyperbilirubinemia and elevated LFTs – HIDA scan is pending for today – Pain management – N.p.o. – Will consult general surgery for assistance – She had a gallbladder ultrasound on 12/03/2024 as she had an appointment with general surgery in the office on that day that demonstrated no cholecystitis with a normal common bile duct – Continue Zosyn and IV fluids 2. Essential HTN – Continue monitoring her blood pressures – Will hold lisinopril 3. GERD – Stable – Continue with IV PPI PPI DVT: SCDs Charges/Coding Visit Charges Inpatient E&M: 28353 Subs Hosp L2
--- NOTE | 2024-12-04 09:55 | MRI_ITS ---
PROCEDURE: MRCP ABDOMEN WITHOUT CONTRAST 12/04/2024 REASON FOR EXAM: ELEVATED LFTS TECHNIQUE: Procedure Code: MRI MRCP Modality: MR Procedure: MRCP ABDOMEN WITHOUT CONTRAST Multiplanar and multisequence images were obtained. CONTRAST: NONE. VOLUME: 0 mL COMPARISON: CT ABDOMEN PELVIS 2024 FINDINGS: The liver, pancreas, spleen, adrenals and kidneys are unremarkable. Multiple small choleliths in the gallbladder. No evidence of cholecystitis or choledocholithiasis. Peritoneum / Retroperitoneum: Unremarkable. Lymph Nodes: No lymphadenopathy. Major Vessels: Aorta, branches, and vena cava unremarkable. Bones: No destructive process. MRI/MRCP Abdomen without Contrast IMPRESSION: No evidence of choledocholithiasis. Multiple small cholelith's seen in the gal lbladder. Reading Location: [id number]
--- NOTE | 2024-12-04 09:57 | PN.SURG_ITS ---
Subjective Subjective Patient states her abdominal pain has resolved, patient just got back from HIDA scan did not show any movement of the contrast beyond the liver. Objective Data Objective Data Vital Signs: Vital Signs Temp Pulse Resp BP Pulse Ox O2 Del Method 97.8 F 70 16 95/56 L 100 Room Air 12/04/24 06:18 12/04/24 06:18 12/04/24 06:18 12/04/24 06:18 12/04/24 06:18 12/04/24 06:18 Oxygen Delivery Method Room Air Weight: 217 lb 13.067 oz Body Mass Index (BMI) 40.1 Intake & Output: Intake and Output for Last 24 Hours 12/02/24 12/03/24 12/04/24 23:59 23:59 23:59 Intake Total 1150 / 1150 1142.09 / 1142.09 Balance 1150 / 1150 1142.09 / 1142.09 Lab / Micro Data 12/05/24 03:44 12/05/24 03:44 Labs: Laboratory Results - last 24 hr 12/03/24 17:32: WBC 4.7, RBC 4.79, Hgb 12.4, Hct 38.4, MCV 80.2 L, MCH 25.9 L, MCHC 32.3, RDW Std Deviation 43.8, RDW Coeff of María 15.1 H, Plt Count 347, MPV 10.5, Immature Gran % (Auto) 0.200, Neut % (Auto) 75.0 H, Lymph % (Auto) 14.3 L, [place] % (Auto) 9.2, Eos % (Auto) 0.9, Baso % (Auto) 0.4, Absolute Neuts (auto) 3.5, Absolute Lymphs (auto) 0.67 L, Nucleated RBC % 0, Sodium 139, Potassium 4.0, Chloride 105, Carbon Dioxide 23.5, Anion Gap 11, BUN 9, Creatinine 0.63 L, Estim Creat Clear Calc 134.15, Est GFR (MDRD) Non-Af 117, BUN/Creatinine Ratio 14.1, Glucose 95, Calcium 9.4, Magnesium 2.2, Total Bilirubin 1.77 H, AST 1452 H , ALT 1428 H, Alkaline Phosphatase 164 H, Total Protein 7.1, Albumin 4.7, Globulin 2.5, Albumin/Globulin Ratio 1.9, Lipase 64, TSH 1.780 12/03/24 17:40: Urine Color Yellow, Urine Clarity Sl. Cloudy, Urine pH 6.0, Ur Specific [place] 1.030, Urine Protein 30 H, Urine Glucose (UA) Normal, Urine Ketones Negative, Urine Occult Blood Negative, Urine Nitrite Negative, Urine Bilirubin 1 H, Urine Urobilinogen 1 H, Ur Leukocyte Esterase Negative, Urine RBC 0-5 SEEN, Urine WBC 0-5 SEEN, Ur Squamous Epith Cells 5-10 SEEN, Ur Transition Epith Cell 0-5 SEEN, Urine Bacteria 1+, Urine Mucus 0 SEEN 12/04/24 06:05: WBC 3.8 L, RBC 4.71, Hgb 12.3, Hct 38.1, MCV 80.9 L, MCH 26.1 L, MCHC 32.3, RDW Std Deviation 45.8 H, RDW Coeff of María 15.3 H, Plt Count 322, MPV 10.7, Immature Gran % (Auto) 0.300, Neut % (Auto) 61.7, Lymph % (Auto) 22.4, M adrián % (Auto) 12.4 H, Eos % (Auto) 2.4, Baso % (Auto) 0.8, Absolute Neuts (auto) 2.3, Absolute Lymphs (auto) 0.85, Nucleated RBC % 0, Sodium 139, Potassium 4.0, Chloride 108, Carbon Dioxide 21.3, Anion Gap 10, BUN 7, Creatinine 0.57 L, Estim Creat Clear Calc 148.43, Est GFR (MDRD) Non-Af 120, BUN/Creatinine Ratio 12.2, Glucose 90, Calcium 8.5, Phosphorus 2.8, Total Bilirubin 1.72 H, AST 645 H, ALT 1117 H, Alkaline Phosphatase 177 H, Total Protein 6.4, Albumin 4.0, Globulin 2.4, Albumin/Globulin Ratio 1.7 Radiography Diagnostic Testing: Radiology Impression Abdomen/Pelvis CT 12/03/24 17:21 IMPRESSION: 1. No acute findings in the abdomen or pelvis. 2. Scattered colonic diverticulosis without acute diverticulitis. Reading Location: [facility] Gallbladder Ultrasound 12/03/24 17:30 IMPRESSION: Cholelithiasis without evidence of acute cholecystitis. Reading Location: [id number] Hepatobiliary Scan Nuclear Medicine 12/04/24 06:00 IMPRESSION: No uptake of radiotracer within the gallbladder. Findings suggest cystic duct obstruction and cholecystitis Normal uptake of radiotracer within the liver, normal excretion into the biliary tree and duodenum Reading Location: [facility] Physical Exam Const alert, oriented x3 and no apparent distress HEENT normocephalic and head/scalp atraumatic Resp normal respiratory effort Cardio regular rate GI soft to palpation and non-tender; Negative for non-distended Palpation: Negative for guarding Extremity no clubbing, cyanosis or edema Skin no rashes or lesions noted Neuro CN's II-XII intact bilaterally Psych mental status grossly normal Assessment & Plan Assessment/Plan (1) Hyperbilirubinemia: (2) Transaminitis: (3) RUQ abdominal pain: (4) Cholelithiasis: QUALIFIERS: Biliary obstruction: without biliary obstruction C holelithiasis location: other site Qualified Code(s): K80.80 - Other cholelithiasis without obstruction PLAN: Plan HIDA did not leave the liver. Will plan for an MRCP today--okay for diet after MRCP. GI also consulted. Question of this may be primary hepatocellular. Patient currently has no pain. Veronica Austin M.D. Pager: [phone] [facility] [address] [place] [address], [facility], [address] [place] [address] Office: [phone]
[2024-12-04 10:40] VITALS: BP 150/105; PULSE 84; RESP 16; TEMP 36.8; O2SAT 99
[2024-12-04] MEDS: 0.9% Saline Lock 10 ML Syringe IV ×2 (10:43→13:06)
[2024-12-04] MEDS: Pantoprazole Sodium 40 MG in 0.9% Normal Saline (100mL MB+) 100 ML 330 MG IV (10:43)
--- NOTE | 2024-12-04 11:25 | CASEMGMT ---
SHARIFA AHN milk collector CM to room to meet with pt for initial transition planning/care coordination assessment. SHARIFA AHN introduced self and role at [facility], pt voices understanding and consents to assessment. Pt is A&O and answers all questions appropriately at this time. Care providers, pharmacy, and demographics verified/updated. PCP: Dr Flood Specialists: Dr Mcfarland-GI, Dr Austin-surgeon Preferred Pharmacy:[facility] Retail Insurance: [facility] Prescription Benefit: yes LNOK: Thien Sánchez, . Mother, Ana Maria Living Arrangements: Pt lives with and 3 kids in a two story home with no steps to enter. Pt reports she is I in ADL/IADLs and denies concerns at home. Transportation: Pt drives self and denies concerns with transportation. DME:Denies HHC/SNF: Denies hx of either & no needs identified. 6 clicks: 24. Pt states no concerns with going home at time of discharge. Plan: Home Kolby MCKEON RN, CM
[2024-12-04 17:45] VITALS: BP 128/88; PULSE 77; RESP 16; TEMP 36.6; O2SAT 100
[2024-12-04 23:00] VITALS: BP 135/90; PULSE 83; RESP 16; TEMP 36.7; O2SAT 100
[2024-12-05 04:51] LABS: Hematocrit 35.0 % (37-47); Hemoglobin 11.4 g/dL (12.0-15.0); Immature Granulocytes Count 0.010 X10^3/uL (0.0-0.0); Mean Corp Hgb Conc 32.6 g/dL (32-36); Mean Corpuscular Volume 80.5 fL (81-99); Mean Platelet Vol. 10.3 fl (6.2-12.0); NRBC Flagged by Analyzer 0 % (0-5); Platelet Count 305 K/mm3 (150-450); RBC Distribution Width CV 15.4 % (11.6-14.6); RBC Distribution Width SD 45.3 fl (35.1-43.9); Red Blood Count 4.35 M/mm3 (4.2-5.4); White Blood Count 4.1 K/mm3 (4.4-11.0)
[2024-12-05 04:58] LABS: AST(SGOT) 212 U/L (<=31); Alanine Aminotransfer ALT/SGPT 685 U/L (<=34); Albumin, Serum 3.8 g/dL (3.5-5.0); Alkaline Phosphatase 164 U/L (35-104); Anion Gap 10 (5-15); BUN 5 mg/dL (4-19); BUN/Creat Ratio 9.6 RATIO (10-20); Calcium,Total 8.7 mg/dL (7.6-11.0); Carbon Dioxide 22.5 mmol/L (21.0-32.0); Chloride 107 mmol/L (98-108); Estimated Creatinine Clearance 151.08 ml/min (50-250); Globulin 2.4 g/dL (2.2-4.2); Glucose 96 mg/dL (70-99); Potassium 4.2 mmol/L (3.3-5.1)
[2024-12-05 05:00] VITALS: BP 133/95; PULSE 74; RESP 16; TEMP 36.7; O2SAT 100
[2024-12-05] MEDS: Piperacil/Tazobactam 3.375 GM in 0.9% Normal Saline (50mL MB+) 50 ML IV ×3 (05:57→22:21)
[2024-12-05 08:31] VITALS: BP 143/94; PULSE 81; RESP 16; TEMP 36.6; O2SAT 99
--- NOTE | 2024-12-05 09:02 | PN.SURG_ITS ---
Subjective Subjective Patient's MRCP showed gallstones normal common bile duct, patient's enzymes are decreasing and patient still has no abdominal pain, tolerated low fat diet. Objective Data Objective Data Vital Signs: Vital Signs Temp Pulse Resp BP Pulse Ox O2 Del Method 97.9 F 81 16 143/94 H 99 Room Air 12/05/24 08:31 12/05/24 08:31 12/05/24 08:31 12/05/24 08:31 12/05/24 08:31 12/05/24 08:32 Oxygen Delivery Method Room Air Weight: 217 lb 13.067 oz Body Mass Index (BMI) 40.1 Intake & Output: Intake and Output for Last 24 Hours 12/03/24 12/04/24 12/05/24 23:59 23:59 23:59 Intake Total 1150 / 1150 1792.09 / 1792.09 50 / 50 Balance 1150 / 1150 1792.09 / 1792.09 50 / 50 Lab / Micro Data 12/05/24 03:44 12/05/24 03:44 Labs: Laboratory Results - last 24 hr 12/05/24 03:44: WBC 4.1 L, RBC 4.35, Hgb 11.4 L, Hct 35.0 L, MCV 80.5 L, MCH 26.2 L, MCHC 32.6, RDW Std Deviation 45.3 H, RDW Coeff of María 15.4 H, Plt Count 305, MPV 10.3, Immature Gran % (Auto) 0.200, Neut % (Auto) 53.4, Lymph % (Auto) 30.0, [place] % (Auto) 11.8 H, Eos % (Auto) 3.9, Baso % (Auto) 0.7, Absolute Neuts (auto) 2.2, Absolute Lymphs (auto) 1.24, Nucleated RBC % 0, Sodium 140, Potassium 4.2, Chloride 107, Carbon Dioxide 22.5, Anion Gap 10, BUN 5, C reatinine 0.56 L, Estim Creat Clear Calc 151.08, Est GFR (MDRD) Non-Af 121, B UN/Creatinine Ratio 9.6 L, Glucose 96, Calcium 8.7, Total Bilirubin 0.63, AST 212 H, ALT 685 H, Alkaline Phosphatase 164 H, Total Protein 6.1, Albumin 3.8, Globulin 2.4, Albumin/Globulin Ratio 1.6 Radiography Diagnostic Testing: Radiology Impression Hepatobiliary Scan Nuclear Medicine 12/04/24 06:00 IMPRESSION: No uptake of radiotracer within the gallbladder. Findings suggest cystic duct obstruction and cholecystitis Normal uptake of radiotracer within the liver, normal excretion into the biliary tree and duodenum Reading Location: [facility] MRCP 12/04/24 09:55 IMPRESSION: No evidence of choledocholithiasis. Multiple small cholelith's seen in the gallbladder. Reading Location: [id number] Physical Exam Const oriented x3 and no apparent distress Resp normal respiratory effort Cardio regular rate GI soft to palpation and non-tender Inspection: Negative for abdominal distention Assessment & Plan Assessment/Plan (1) Hyperbilirubinemia: (2) Transaminitis: (3) RUQ abdominal pain: (4) Cholelithiasis: QUALIFIERS: Biliary obstruction: without biliary obstruction C holelithiasis location: other site Qualified Code(s): K80.80 - Other cholelithiasis without obstruction PLAN: Plan Patient MRCP did not show any abnormalities with the bile ducts, showed cholelithiasis, patient is not having pain and enzymes are decreasing. Will plan for a robotic/laparoscopic cholecystectomy with cholangiograms, possible liver biopsy tomorrow. Reviewed the anatomy with the patient and discussed the procedure: Robotic/laparoscopic cholecystectomy with possible cholangiograms, possible open. Review risks including but not limited to bleeding, infection, hernia, bile leak, retained gallstones requiring another procedure ERCP- Endoscopic Retrograde Cholangiopancreatography, injury to another organ (bile ducts, common bile duct, small bowel, etc.) and conversion to an open procedure. All questions were answered. Veronica Austin M.D. Pager: [phone] [facility] [address] [place] [address] Office: [phone]
--- NOTE | 2024-12-05 10:23 | PCM.PN.HOSP ---
Subjective Subjective LFTs are improving and total bilirubin has normalized. MRCP and HIDA scan were read as unremarkable. She may have passed a duct stone as she has multiple stones in her gallbladder Objective Data Objective Data Vital Signs: Vital Signs Temp Pulse Resp BP Pulse Ox O2 Del Method 97.9 F 81 16 143/94 H 99 Room Air 12/05/24 08:31 12/05/24 08:31 12/05/24 08:31 12/05/24 08:31 12/05/24 08:31 12/05/24 08:32 Oxygen Delivery Method Room Air Weight: 217 lb 13.067 oz Body Mass Index (BMI) 40.1 Intake & Output: Intake and Output for Last 24 Hours 12/04/24 12/05/24 12/06/24 03:59 03:59 03:59 Intake Total 1150 / 1150 1842.09 / 1842.09 Balance 1150 / 1150 1842.09 / 1842.09 Lab / Micro Data 12/05/24 03:44 12/05/24 03:44 Labs: Laboratory Results - last 24 hr 12/05/24 03:44: WBC 4.1 L, RBC 4.35, Hgb 11.4 L, Hct 35.0 L, MCV 80.5 L, MCH 26.2 L, MCHC 32.6, RDW Std Deviation 45.3 H, RDW Coeff of María 15.4 H, Plt Count 305, MPV 10.3, Immature Gran % (Auto) 0.200, Neut % (Auto) 53.4, Lymph % (Auto) 30.0, [place] % (Auto) 11.8 H, Eos % (Auto) 3.9, Baso % (Auto) 0.7, Absolute Neuts (auto) 2.2, Absolute Lymphs (auto) 1.24, Nucleated RBC % 0, Sodium 140, Potassium 4.2, Chloride 107, Carbon Dioxide 22.5, Anion Gap 10, BUN 5, Creatinine 0.56 L, Estim Creat Clear Calc 151.08, Est GFR (MDRD) Non-Af 121, BUN/Creatinine Ratio 9.6 L, Glucose 96, Calcium 8.7, Total Bilirubin 0.63, AST 212 H, ALT 685 H, Alkaline Phosphatase 164 H, Total Protein 6.1, Albumin 3.8, Globulin 2.4, Albumin/Globulin Ratio 1.6 Radiography Diagnostic Testing: Radiology Impression MRCP 12/04/24 09:55 IMPRESSION: No evidence of choledocholithiasis. Multiple small cholelith's seen in the gallbladder. Reading Location: [id number] Physical Exam Narrative General: Alert, Oriented x3, Cooperative, No apparent distress HEENT: Atraumatic, PERRLA, EOMI, Normocephalic Oral: Moist Mucosa Neck: Supple, No JVD Lungs: Clear to auscultation, Normal air movement, No rhonchi, No wheeze, No rales Cardiovascular: Regular rate, Regular Rhythm, Normal S1, Normal S2, No murmurs Abdomen: Soft, nontender, Non-Distended, No Hepato-splenomegaly Extremities: No edema, Capillary Refill Less than 3 Seconds Skin: No rashes, No breakdown Musculoskeletal: No Tenderness to Palpation of Joints or Extremities Neurological: No focal neurological deficits, Motor Exam 5/5 strength throughout, Sensory exam intact to light touch and pain Psych/Mental Status: Normal Affect, Appropriate Assessment & Plan Assessment/Plan (1) Hyperbilirubinemia: (2) Transaminitis: (3) RUQ abdominal pain: (4) Cholelithiasis: QUALIFIERS: Cholelithiasis location: other site Biliary obstruction: without biliary obstruction Qualified Code(s): K80.80 - Other cholelithiasis without obstruction (5) Obesity (BMI 30-39.9): PLAN: Plan 1. Cholelithiasis with hyperbilirubinemia and elevated LFTs – HIDA scan and MRCP were unremarkable – Pain management – N.p.o. at midnight – General Surgery will plan for cholecystectomy tomorrow as well as a intraoperative liver biopsy – She had a gallbladder ultrasound on 12/03/2024 as she had an appointment with general surgery in the office on that day that demonstrated no cholecystitis with a normal common bile duct – Continue Zosyn and IV fluids 2. Essential HTN – Continue monitoring her blood pressures – Will hold lisinopril 3. GERD – Stable – Continue with PPI DVT: SCDs Charges/Coding Visit Charges Inpatient E&M: 95369 Subs Hosp L2
[2024-12-05] MEDS: 0.9% Normal Saline (250mL Bag) 250 ML 15 ML IV (13:19)
[2024-12-05 17:25] VITALS: BP 126/81; PULSE 90; RESP 16; TEMP 36.4; O2SAT 99
[2024-12-05 21:21] VITALS: BP 164/116; PULSE 82
[2024-12-05 21:30] VITALS: BP 164/116; PULSE 82; RESP 16; TEMP 36.7; O2SAT 100
[2024-12-06] VITALS (14 sets, daily range): BP systolic 128–165; BP diastolic 77–107; PULSE 71–87; RESP 14–16; TEMP 36.3–36.8; O2SAT 98–100; BMI 40.1
[2024-12-06] MEDS: Piperacil/Tazobactam 3.375 GM in 0.9% Normal Saline (50mL MB+) 50 ML IV (05:33)
[2024-12-06 07:56] LABS: Hematocrit 38.7 % (37-47); Hemoglobin 12.4 g/dL (12.0-15.0); Immature Granulocytes Count 0.020 X10^3/uL (0.0-0.0); Mean Corp Hgb Conc 32.0 g/dL (32-36); Mean Corpuscular Volume 81.3 fL (81-99); Mean Platelet Vol. 10.4 fl (6.2-12.0); NRBC Flagged by Analyzer 0 % (0-5); Platelet Count 321 K/mm3 (150-450); RBC Distribution Width CV 15.0 % (11.6-14.6); RBC Distribution Width SD 44.5 fl (35.1-43.9); Red Blood Count 4.76 M/mm3 (4.2-5.4); White Blood Count 5.3 K/mm3 (4.4-11.0)
--- NOTE | 2024-12-06 08:25 | PN.HOSP_ITS ---
Subjective Subjective Doing well, awaiting surgery Objective Data Objective Data Vital Signs: Vital Signs Temp Pulse Resp BP Pulse Ox O2 Del Method 97.8 F 75 16 135/100 H 98 Room Air 12/06/24 08:01 12/06/24 08:01 12/06/24 08:01 12/06/24 08:01 12/06/24 08:01 12/06/24 08:01 Oxygen Delivery Method Room Air Weight: 218 lb 7.649 oz Body Mass Index (BMI) 40.1 Intake & Output: Intake and Output for Last 24 Hours 12/05/24 12/06/24 12/07/24 03:59 03:59 03:59 Intake Total 184. / 184. / 250 / 250 Balance 184. / 1841. 250 / 250 Lab / Micro Data 12/06/24 07:40 12/05/24 03:44 Labs: Laboratory Results - last 24 hr 12/06/24 07:40: WBC 5.3, RBC 4.76, Hgb 12.4, Hct 38.7, MCV 81.3, MCH 26.1 L, MCHC 32.0, RDW Std Deviation 44.5 H, RDW Coeff of María 15.0 H, Plt Count 321, MPV 10.4, Immature Gran % (Auto) 0.400, Neut % (Auto) 62.8, Lymph % (Auto) 22.0, M adrián % (Auto) 11.0 H, Eos % (Auto) 3.2, Baso % (Auto) 0.6, Absolute Neuts (auto) 3.3, Absolute Lymphs (auto) 1.16, Nucleated RBC % 0 Physical Exam Narrative General: Alert, Oriented x3, Cooperative, No apparent distress HEENT: Atraumatic, PERRLA, EOMI, Normocephalic Oral: Moist Mucosa Neck: Supple, No JVD Lungs: Clear to auscultation, Normal air movement, No rhonchi, No wheeze, No rales Cardiovascular: Regular rate, Regular Rhythm, Normal S1, Normal S2, No murmurs Abdomen: Soft, nontender, Non-Distended, No Hepato-splenomegaly Extremities: No edema, Capillary Refill Less than 3 Seconds Skin: No rashes, No breakdown Musculoskeletal: No Tenderness to Palpation of Joints or Extremities Neurological: No focal neurological deficits, Motor Exam 5/5 strength throughout, Sensory exam intact to light touch and pain Psych/Mental Status: Normal Affect, Appropriate Assessment & Plan Assessment/Plan (1) Hyperbilirubinemia: (2) Transaminitis: (3) RUQ abdominal pain: (4) Cholelithiasis: QUALIFIERS: Cholelithiasis location: other site Biliary obstruction: without biliary obstruction Qualified Code(s): K80.80 - Other cholelithiasis without obstruction PLAN: Plan 1. Cholelithiasis with hyperbilirubinemia and elevated LFTs – HIDA scan and MRCP were unremarkable – Pain management –N.p.o. today – General Surgery for cholecystectomy today as well as a intraoperative liver biopsy – Transaminitis is improving and hyperbilirubinemia resolved 2. Essential HTN – Continue monitoring her blood pressures – Will hold lisinopril 3. GERD – Stable – Continue with PPI DVT: SCDs Charges/Coding Visit Charges Inpatient E&M: 57803 Subs Hosp L2
[2024-12-06 09:00] LABS: AST(SGOT) 76 U/L (<=31); Alanine Aminotransfer ALT/SGPT 486 U/L (<=34); Albumin, Serum 4.0 g/dL (3.5-5.0); Alkaline Phosphatase 164 U/L (35-104); Anion Gap 11 (5-15); BUN 8 mg/dL (4-19); BUN/Creat Ratio 12.4 RATIO (10-20); Bilirubin, Direct 0.27 mg/dL (0.00-0.30); Calcium,Total 9.0 mg/dL (7.6-11.0); Carbon Dioxide 23.6 mmol/L (21.0-32.0); Chloride 105 mmol/L (98-108); Estimated Creatinine Clearance 136.70 ml/min (50-250); Globulin 2.6 g/dL (2.2-4.2); Glucose 91 mg/dL (70-99); Potassium 4.6 mmol/L (3.3-5.1)
--- NOTE | 2024-12-06 10:08 | PN.SURG_ITS ---
Subjective Subjective Patient evaluated resting comfortably in bed. She denies any concerns. She was questioning if she would go home today. Objective Data Objective Data Vital Signs: Vital Signs Temp Pulse Resp BP Pulse Ox O2 Del Method 97.8 F 75 16 135/100 H 98 Room Air 12/06/24 08:01 12/06/24 08:01 12/06/24 08:01 12/06/24 08:01 12/06/24 08:01 12/06/24 08:01 Oxygen Delivery Method Room Air Weight: 218 lb 7.649 oz Body Mass Index (BMI) 40.1 Intake & Output: Intake and Output for Last 24 Hours 12/04/24 12/05/24 12/06/24 23:59 23:59 23:59 Intake Total 1791. / 1791. / 350 / 350 Balance 1791. / 1791. / 350 / 350 Lab / Micro Data 12/06/24 07:40 12/06/24 07:40 Labs: Laboratory Results - last 24 hr 12/06/24 07:40: WBC 5.3, RBC 4.76, Hgb 12.4, Hct 38.7, MCV 81.3, MCH 26.1 L, MCHC 32.0, RDW Std Deviation 44.5 H, RDW Coeff of María 15.0 H, Plt Count 321, MPV 10.4, Immature Gran % (Auto) 0.400, Neut % (Auto) 62.8, Lymph % (Auto) 22.0, M adrián % (Auto) 11.0 H, Eos % (Auto) 3.2, Baso % (Auto) 0.6, Absolute Neuts (auto) 3.3, Absolute Lymphs (auto) 1.16, Nucleated RBC % 0, Sodium 139, Potassium 4.6, Chloride 105, Carbon Dioxide 23.6, Anion Gap 11, BUN 8, Creatinine 0.62 L, Estim Creat Clear Calc 136.70, Est GFR (MDRD) Non-Af 117, BUN/Creatinine Ratio 12.4, Glucose 91, Calcium 9.0, Total Bilirubin 0.45, Direct Bilirubin 0.27, AST 76 H, ALT 486 H, Alkaline Phosphatase 164 H, Total Protein 6.6, Albumin 4.0, Globulin 2.6 Assessment & Plan Assessment/Plan (1) Hyperbilirubinemia: (2) Cholelithiasis: QUALIFIERS: Cholelithiasis location: other site Biliary obstruction: without biliary obstruction Qualified Code(s): K80.80 - Other cholelithiasis without obstruction (3) Epigastric abdominal pain: PLAN: Plan I am following this patient in conjunction with Dr. Austin. She will independently evaluate this patient Labs reviewed. Liver enzymes are trending down Patient scheduled to undergo robotic trip with grams and liver biopsy Patient has had the opportunity to ask questions We will continue to monitor this patient Charges/Coding Visit Charges Inpatient E&M: 53176 [facility] Hosp L1 (no charge; pre-op)
[2024-12-06] MEDS: 0.9% Normal Saline (1000mL) 1,000 ML 15 ML IV (12:29)
[2024-12-06] MEDS: INDOCYANINE GREEN 3.75 MG in Syringe 1.5 ML 999 MG IV (12:29)
--- NOTE | 2024-12-06 12:51 | PRE.ANES_ITS ---
ASA Classification* ASA Classification ASA Classification: 3 Assessment & Plan Anesthesia* Anesthesia Assessment Anesthesia Assessment: Discussed sedation and/or anesthesia options, risks, benefits, and alternatives with patient/parents/legal guardian/POA. Questions invited. The patient/parents/legal guardian/POA seems to understand and agrees to proceed with anesthesia plan. Reviewed the physical assessment, medical history, allergy history and patient home medications list prior to surgery/procedure/anesthetic and documented any changes. Performed airway and anesthesia risk assessments. Anesthesia Type Anesthesia Type: General History Source History Obtained from:: Patient and Chart Anesthesia Focused Assessment* Temperature: 97.8 F Pulse Rate: 75 Blood Pressure: 135/100 Respiratory Rate: 16 Pulse Ox: 98 Oxygen Delivery Method: Room Air Airway Assessment Mouth opens: >3 cm Mallampati Score: II Teeth Condition: Intact Labs Anesthesia Preop lab: CBC WBC, (4.4-11.0) 5.3 K/mm3 Today, 07:40 RBC, (4.2-5.4) 4.76 M/mm3 Today, 07:40 Hgb, (12.0-15.0) 12.4 g/dL Today, 07:40 Hct, (37-47) 38.7 % Today, 07:40 Plt Count, (150-450) 321 K/mm3 Today, 07:40 CHEMISTRY Potassium, (3.3-5.1) 4.6 mmol/L Today, 07:40 Sodium, (133-145) 139 mmol/L Today, 07:40 Magnesium, (1.5-2.2) 2.2 mg/dL 12/03/24, 17:32 Phosphorus, (2.7-4.5) 2.8 mg/dL 12/04/24, 06:05 BUN, (4-19) 8 mg/dL Today, 07:40 Creatinine, (0.70-1.20) 0.62 mg/dL L Today, 07:40 Glucose, (70-99) 91 mg/dL Today, 07:40 TSH, (0.300-4.200) 1.780 uIU/mL 12/03/24, 17:32 COAG PT, (11.7-14.9) 13.5 SECONDS 07/04/24, 09:40 Urine Test Negative Negative 12/03/24, 03:38 Pre-Assessment Diagnosis/Proposed Procedure Planned Operative Procedure(s): Laparoscopic cholecystectomy with possible intraoperative cholangiogram Anesthesia History 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 When Was Last Pacemaker Check QUESTION #4 FULL TEXT: You/Your Family Experience fever (hyperthermia) with Anesthesia Last Oral Intake Last Oral intake: Last Oral Intake NPO since Meds taken in AM with sips of water? 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 Female HX of Motion Sickness HX of N/V After Surgery Non-Smoker Duration of Surgery greater than 60 minutes Number of Risk Factors PONV Score Height & Weight Height & Weight: Anesthesia: Height & Weight Height 5 ft 2 in 12/03/24 20:27 Weight: 99.1 kg 12/06/24 05:56 Body Mass Index (BMI) 40.1 12/06/24 05:56 Respiratory Assessment Respiratory Assessment - telecommunications field technician: Respiratory Tract Infection Hx - telecommunications field technician Hx Respiratory Tract Infection No 12/04/24 10:33 STOP Sleep Apnea STOP Sleep Apnea - telecommunications field technician: STOP Sleep Apnea - telecommunications field technician Hx Hypertension Yes 12/03/24 20:27 Hx Sleep Apnea No 12/03/24 20:27 CPAP BIPAP Do you snore loudly (louder No 12/03/24 20:27 than talking or can be heard Do you often feel tired/ No 12/03/24 20:27 fatigued/ sleepy during daytime? Has anyone observed you stop No 12/03/24 20:27 breathing during sleep? STOP Results Negative 12/03/24 20:27 QUESTION #5 FULL TEXT : Do you snore loudly (louder than talking or can be heard through closed doors)? 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 Specify any problems Hx of Preganancy in last 3 No 12/03/24 20:27 Months Nurse Filling Out Transfusion EVIZZO 12/03/24 20:27 & Questions: Date: 12/03/24 12/03/24 20:27 Time: 20:33 12/03/24 20:27 Patient unable to answer at this time (ie. confused, unrespo /Reproduction History /Reproductive History - telecommunications field technician: /Reproductive Hx- telecommunications field technician Hx Now No 12/04/24 12:16 Gestational Age (in weeks): EDC: Hx Hx Para Hx Section SAB No 12/04/24 12:16 Active Medications Active Medications: Current Medications Generic Name Dose Route Start Last Admin Trade Name Freq PRN Reason Stop Dose Admin Hydralazine HCl 5 mg 12/03/24 22:03 12/05/24 21:21 Hydralazine 20 Mg/Ml Vial IV 5 mg Q8H PRN PRN Administration SBP GREATER THAN 160 Protocol Sodium Chloride 250 mls @ 15 mls/hr 12/03/24 20:28 12/06/24 08:04 IV Infused .[id number] PRN Infusion Saline Flush Sodium Chloride 250 mls @ 15 mls/hr 12/03/24 20:28 IV .[id number] PRN Additional IVPB Infusion Piperacillin Sod/Tazobactam 50 mls @ 12.5 mls/hr 12/04/24 06:00 12/06/24 09:43 Sod 3.375 gm/ Sodium Chloride IV Infused Q8 AMAYA Infusion Cefazolin Sodium 2 gm/ Sodium 110 mls @ 200 mls/hr 12/06/24 12:20 Chloride IV 12/06/24 12:52 INTRAOP ONE Sodium Chloride 1,000 mls @ 15 mls/hr 12/06/24 12:15 12/06/24 12:29 IV 15 mls/hr .Q48H AMAYA Administration Ketorolac Tromethamine 15 mg 12/03/24 22:03 12/03/24 22:43 Ketorolac 15 Mg/Ml Vial IV 12/08/24 22:04 15 mg Q8H PRN PRN Administration Pain 1-5/10 or Fever Non-Formulary Medication 2 drp 12/03/24 22:03 Ketotifen Fumarate OPHTHALMIC BID PRN PRN allergy symptoms Ondansetron HCl 4 mg 12/03/24 22:03 Ondansetron 4 Mg/2 Ml Vial IV Q4H PRN PRN NAUSEA/VOMITING Pantoprazole Sodium 40 mg 12/05/24 10:00 12/06/24 08:04 Pantoprazole Sodium 40 Mg Tablet PO Not Given DAILY AMAYA Polyethylene Glycol 17 gm 12/05/24 21:30 12/06/24 08:04 Polyethylene Glycol 3350 17 Gm Packet PO Not Given DAILY AMAYA Promethazine HCl 12.5 mg 12/03/24 22:03 Promethazine 25 Mg/Ml Syringe IM Q4H PRN PRN BREAKTHROUGH NAUSEA Sodium Chloride 10 - 40 ml 12/03/24 20:28 12/04/24 13:06 0.9% Saline Lock 10 Ml Syringe IV 20 ml UD PRN Administration SALINE FLUSH PFSH Medical History Cholelithiasis Wears glasses Depression Anxiety Alcohol use Migraine headache Former smoker Hypertension Hx of vaginal delivery ADHD Home Medications Medication Instructions Recorded Last Taken Type dextroamphetamine-amphetamine 30 30 mg PO 0800,1200 AD HD 11/08/21 12/02/24 History mg tablet (Adderall) multivitamin 1 tab PO DAILY supplement 12/02/24 History lisinopril 5 mg tablet 5 mg PO DAILY BP 07/04/24 History famotidine 20 mg tablet (Acid 20 mg PO DAILY gastrix r eflux 12/03/24 12/03/24 History [employer] (famotidine)) hydrocodone-acetaminophen 5-325mg 1 tab PO Q6H PRN nico n 3 days #12 12/03/24 Unknown Rx 5mg-325mg tabs ketotifen fumarate 0.025 % (0.035 2 drp ophthalmic (ey e) BID PRN 12/03/24 11/19/24 History %) eye drops allergy symptoms omeprazole 20 mg capsule,delayed 20 mg PO QDAY gastric reflux 12/03/24 12/03/24 History release Allergy/AdvReac Type Severity Reaction Status Date / Time metformin AdvReac Nausea/Vom/ Verified 12/03/24 20:48 Diarrhea Surgical History History of tonsillectomy and adenoidectomy Social History household members: spouse Smoking Status: Former smoker alcohol intake: current alcohol intake frequency: holidays/special occasions only substance use type: does not use Review of Systems (Anesthesia) ROS Narrative System reviewed and no additional complaints, except as documented. Physical Exam Const alert, oriented x3 and average body habitus Nutritional Appearance: morbidly obese Resp normal respiratory effort, normal air movement and clear to auscultation bilaterally Cardio regular rate and regular rhythm Neuro oriented x3 and moves all extremities
[2024-12-06] MEDS: Midazolam 2 MG/2 ML Syringe IV (13:24)
[2024-12-06] MEDS: Cefazolin 1 GM/5 ML Vial 2 GM IV (13:24)
[2024-12-06] MEDS: Lidocaine 1% (5 ml sdv) 5 ML Vial IV (13:33)
--- NOTE | 2024-12-06 13:45 | RAD_ITS ---
PROCEDURE: CHOLANGIOGRAM/ O R,INITIAL 12/06/2024 REASON FOR EXAM: MYRNA TECHNIQUE: Procedure Code: RADCHO Modality: DX Procedure: CHOLANGIOGRAM/ O R,INITIAL COMPARISON: None. FINDINGS: Intraoperative cholangiogram following cholecystectomy is unremarkable. Fluoro time: 11.4 seconds. Cumulative dose: 16.8 mGy RAD/Cholangiogram/ O R,Initial IMPRESSION: As per findings. Reading Location: [place] [address]
[2024-12-06] MEDS: Lactated Ringers 1,000 ML 1000 ML IV (14:02)
[2024-12-06] MEDS: Ketorolac 30 MG/ML Syringe IV (14:05)
--- NOTE | 2024-12-06 14:26 | PRE.ANES_ITS ---
Assessment & Plan Anesthesia* Anesthesia Assessment Anesthesia Assessment: Discussed sedation and/or anesthesia options, risks, benefits, and alternatives with patient/parents/legal guardian/POA. Questions invited. The patient/parents/legal guardian/POA seems to understand and agrees to proceed with anesthesia plan. Reviewed the physical assessment, medical history, allergy history and patient home medications list prior to surgery/procedure/anesthetic and documented any changes. Performed airway and anesthesia risk assessments. Anesthesia Focused Assessment* Temperature: 97.8 F Pulse Rate: 75 Blood Pressure: 135/100 Respiratory Rate: 16 Pulse Ox: 98 Labs Anesthesia Preop lab: CBC WBC, (4.4-11.0) 5.3 K/mm3 Today, 07:40 RBC, (4.2-5.4) 4.76 M/mm3 Today, 07:40 Hgb, (12.0-15.0) 12.4 g/dL Today, 07:40 Hct, (37-47) 38.7 % Today, 07:40 Plt Count, (150-450) 321 K/mm3 Today, 07:40 CHEMISTRY Potassium, (3.3-5.1) 4.6 mmol/L Today, 07:40 Sodium, (133-145) 139 mmol/L Today, 07:40 Magnesium, (1.5-2.2) 2.2 mg/dL 12/03/24, 17:32 Phosphorus, (2.7-4.5) 2.8 mg/dL 12/04/24, 06:05 BUN, (4-19) 8 mg/dL Today, 07:40 Creatinine, (0.70-1.20) 0.62 mg/dL L Today, 07:40 Glucose, (70-99) 91 mg/dL Today, 07:40 TSH, (0.300-4.200) 1.780 uIU/mL 12/03/24, 17:32 COAG PT, (11.7-14.9) 13.5 SECONDS 07/04/24, 09:40 Urine Test Negative Negative 12/03/24, 03:38 Pre-Assessment Diagnosis/Proposed Procedure Planned Operative Procedure(s): Laparoscopic cholecystectomy with possible intraoperative cholangiogram Anesthesia History 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 When Was Last Pacemaker Check QUESTION #4 FULL TEXT: You/Your Family Experience fever (hyperthermia) with Anesthesia Last Oral Intake Last Oral intake: Last Oral Intake NPO since Meds taken in AM with sips of water? 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 Female HX of Motion Sickness HX of N/V After Surgery Non-Smoker Duration of Surgery greater than 60 minutes Number of Risk Factors PONV Score Height & Weight Height & Weight: Anesthesia: Height & Weight Height 5 ft 2 in 12/03/24 20:27 Weight: 99.1 kg 12/06/24 05:56 Body Mass Index (BMI) 40.1 12/06/24 05:56 Respiratory Assessment Respiratory Assessment - perfume and toilet water maker: Respiratory Tract Infection Hx - perfume and toilet water maker Hx Respiratory Tract Infection No 12/04/24 10:33 STOP Sleep Apnea STOP Sleep Apnea - perfume and toilet water maker: STOP Sleep Apnea - perfume and toilet water maker Hx Hypertension Yes 12/03/24 20:27 Hx Sleep Apnea No 12/03/24 20:27 CPAP BIPAP Do you snore loudly (louder No 12/03/24 20:27 than talking or can be heard Do you often feel tired/ No 12/03/24 20:27 fatigued/ sleepy during daytime? Has anyone observed you stop No 12/03/24 20:27 breathing during sleep? STOP Results Negative 12/03/24 20:27 QUESTION #5 FULL TEXT : Do you snore loudly (louder than talking or can be heard through closed doors)? 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 Specify any problems Hx of Preganancy in last 3 No 12/03/24 20:27 Months Nurse Filling Out Transfusion EVIZZO 12/03/24 20:27 & Questions: Date: 12/03/24 12/03/24 20:27 Time: 20:12/03/24 20:27 Patient unable to answer at this time (ie. confused, unrespo /Reproduction History /Reproductive History - perfume and toilet water maker: /Reproductive Hx- perfume and toilet water maker Hx Now No 12/04/24 12:16 Gestational Age (in weeks): EDC: Hx Hx Para Hx Section SAB No 12/04/24 12:16 Active Medications Active Medications: Current Medications Generic Name Dose Route Start Last Admin Trade Name Freq PRN Reason Stop Dose Admin Hydralazine HCl 5 mg 12/03/24 22:03 12/05/24 21:21 Hydralazine 20 Mg/Ml Vial IV 5 mg Q8H PRN PRN Administration SBP GREATER THAN 160 Protocol Sodium Chloride 250 mls @ 15 mls/hr 12/03/24 20:28 12/06/24 08:04 IV Infused .[id number] PRN Infusion Saline Flush Sodium Chloride 250 mls @ 15 mls/hr 12/03/24 20:28 IV .[id number] PRN Additional IVPB Infusion Piperacillin Sod/Tazobactam 50 mls @ 12.5 mls/hr 12/04/24 06:00 12/06/24 09:43 Sod 3.375 gm/ Sodium Chloride IV Infused Q8 AMAYA Infusion Sodium Chloride 1,000 mls @ 15 mls/hr 12/06/24 12:15 12/06/24 12:29 IV 15 mls/hr .Q48H AMAYA Administration Ketorolac Tromethamine 15 mg 12/03/24 22:03 12/03/24 22:43 Ketorolac 15 Mg/Ml Vial IV 12/08/24 22:04 15 mg Q8H PRN PRN Administration Pain 1-5/10 or Fever Non-Formulary Medication 2 drp 12/03/24 22:03 Ketotifen Fumarate OPHTHALMIC BID PRN PRN allergy symptoms Ondansetron HCl 4 mg 12/03/24 22:03 Ondansetron 4 Mg/2 Ml Vial IV Q4H PRN PRN NAUSEA/VOMITING Pantoprazole Sodium 40 mg 12/05/24 10:00 12/06/24 08:04 Pantoprazole Sodium 40 Mg Tablet PO Not Given DAILY AMAYA Polyethylene Glycol 17 gm 12/05/24 21:30 12/06/24 08:04 Polyethylene Glycol 3350 17 Gm Packet PO Not Given DAILY AMAYA Promethazine HCl 12.5 mg 12/03/24 22:03 Promethazine 25 Mg/Ml Syringe IM Q4H PRN PRN BREAKTHROUGH NAUSEA Sodium Chloride 10 - 40 ml 12/03/24 20:28 12/04/24 13:06 0.9% Saline Lock 10 Ml Syringe IV 20 ml UD PRN Administration SALINE FLUSH PFSH Medical History Cholelithiasis Wears glasses Depression Anxiety Alcohol use Migraine headache Former smoker Hypertension Hx of vaginal delivery ADHD Home Medications Medication Instructions Recorded Last Taken Type dextroamphetamine-amphetamine 30 30 mg PO 0800,1200 AD HD 11/08/21 12/02/24 History mg tablet (Adderall) multivitamin 1 tab PO DAILY supplement 12/02/24 History lisinopril 5 mg tablet 5 mg PO DAILY BP 07/04/24 History famotidine 20 mg tablet (Acid 20 mg PO DAILY gastrix r eflux 12/03/24 12/03/24 History [employer] (famotidine)) hydrocodone-acetaminophen 5-325mg 1 tab PO Q6H PRN nico n 3 days #12 12/03/24 Unknown Rx 5mg-325mg tabs ketotifen fumarate 0.025 % (0.035 2 drp ophthalmic (ey e) BID PRN 12/03/24 11/19/24 History %) eye drops allergy symptoms omeprazole 20 mg capsule,delayed 20 mg PO QDAY gastric reflux 12/03/24 12/03/24 History release Allergy/AdvReac Type Severity Reaction Status Date / Time metformin AdvReac Nausea/Vom/ Verified 12/03/24 20:48 Diarrhea Surgical History History of tonsillectomy and adenoidectomy Social History household members: spouse Smoking Status: Former smoker alcohol intake: current alcohol intake frequency: holidays/special occasions only substance use type: does not use Review of Systems (Anesthesia) ROS Narrative System reviewed and no additional complaints, except as documented.
[2024-12-06] MEDS: Bupiv/Epi 0.25% 30 ML Vial (15:10)
--- NOTE | 2024-12-06 15:21 | OP.PCM_ITS ---
Operative Report (Standard) Operative Information Date of Procedure: 12/06/24 Pre-Operative Diagnosis: Cholelithiasis, elevated LFTs Post-Operative Diagnosis: Same Surgery/Procedure Performed: Robotic cholecystectomy with ICG and cholangiograms, liver biopsy patient account liaison: Yes Physician Assistant Surgery: Marco Hays Tasks completed by assistant manager of operations: Opening & closing and Other (no qualified customer care assistant was available for the case.) Type of Anesthesia: General/Supplemental RN Documented Start/Stop Times: Operation Date: 12/06/24 12:20 Case Time Into Pre-Op 12/06/24 12:09 Out of Pre-Op 12/06/24 13:18 Anesthesia Start 12/06/24 13:24 Into Room 12/06/24 13:24 Procedure Start 12/06/24 13:48 Procedure End 12/06/24 15:18 Anesthesia End 12/06/24 15:27 Out of Room 12/06/24 15:27 Into Recovery 12/06/24 15:31 Out of Recovery 12/06/24 16:46 Procedure Start Time: 13:48 Procedure Stop Time: 15:18 Select all DRAINS/GRAFTS/IMPLANTS that apply: None Special Medications: Ancef 2 g IV x 1 Estimated Blood Loss: < 10 cc Specimen collected: Yes Description of specimen(s) removed: Gallbladder Description of surgery: Indications: this is a 39 year-old female who developed abdominal pain/nausea/vomiting and on workup was found to have cholelithiasis, elevated liver functions which did improve on their own. Robotic/laparoscopic cholecystectomy with liver biopsy was elected. Description procedure: The patient was placed on operating table in supine position. A timeout was completed verifying correct patient, procedure, site, position and special equipment prior to beginning procedure. General Anesthesia was induced. The abdomen was prepped and draped in usual sterile fashion. An incision was made in the natural skin line below the umbilicus. The fascia was elevated and incised. The peritoneum was elevated and incised. Entry into the peritoneum was confirmed visually and no bowel was noted in the vicinity of the incision. Martin trocar was placed. The abdomen was insufflated with carbon dioxide to a pressure of 12-15 mmHg. Patient tolerated insufflation well. The laparoscope was then inserted and abdomen inspected. No injuries from initial trocar placement were noted. Additional trochars were then inserted in the following locations 8 mm trocar left upper quadrant and 2 more 8 mm trochars in right lower quadrant and left lower quadrant. The abdomen was inspected no abnormalities were found. The table is placed in reverse Trendelenburg position with the right side up. Robot was docked. The adhesions between the gallbladder and omentum were taken down carefully. The dome of the gallbladder was grasped with atraumatic grasper passed through the lateral port and retracted over the dome of the liver. Infundibulum was then grasped with atraumatic grasper through the midclavicular port and retracted to the right lower quadrant. This maneuver exposed Calot's triangle. The peritoneum overlying the gallbladder infundibulum was then incised and cystic duct and artery identified and circumferentially dissected. ICG was used to visualize the cystic duct. RUQ entry was used for angiocath for the cholangiograms. Enterotomy was made with scissors in cystic duct to accommodate the catheter. Cholangiogram showed good filling of right and left bile ducts, CBD with good flow into duodenum. The cystic duct and artery were then doubly clipped and divided close to the gallbladder. The gallbladder then dissected from its peritoneal attachments by electrocautery. Hemostasis was checked. The gallbladder fossa was irrigated with saline and hemostasis obtained. There is no evidence of bleeding from the gallbladder fossa or cystic artery leakage of bile from the cystic duct stump. Temno biopsy needle was used for liver biopsy- entry from RUQ- cautery was used for hemostasis of the liver biopsy site. Robot was undocked. The gallbladder was removed using the endoscopic retrieval bag through the umbilical port. The gallbladder is passed off table as specimen. Secondary trochars removed under direct vision. No bleeding was noted the trocar sites. The laparoscope was withdrawn and umbilical trocar removed. The abdomen was allowed to collapse. The fascia of the 12 mm trocar was closed with a [id number] 0 Vicryl suture. The skin was closed with sutures of 4-0 Monocryl and Steri-Strips. The patient was extubated. The patient tolerated procedure well and was taken to the postanesthesia care unit in stable condition. Surgical Findings: See operative report Complications Complications: No
--- NOTE | 2024-12-06 15:23 | PCM.DC.SUM ---
Providers Date of Admission: 12/03/24 Primary Care Physician: Dr. Harriett Flood MD Consultations 12/03/24 22:03 Consult: Gastroenterology Routine Consulting Provider: [facility] Reason for Consult: Hyperbilirubinemia with Transaminitis suspect Choledocholithiasis. EMERGENT Consult: No Notified: Yes Date Notified: 12/03/24 Time Notified: 19:51 Method of Notification: ED Physician Initiated Consult: General Surgery Routine Consulting Provider: Veronica Austin Reason for Consult: RUQ pain with Hyperbilirubiinemia and Transaminitis. EMERGENT Consult: No Notified: Yes Date Notified: 12/03/24 Time Notified: 19:52 Method of Notification: Verbal Reason For Visit: SUSPECTED CHOLEDOCHOLITHIASIS WITH Diagnosis Discharge Diagnosis (1) Hyperbilirubinemia: Status: Acute Code(s): E80.6 - Other disorders of bilirubin metabolism (2) Cholelithiasis: Status: Acute Code(s): K80.20 - Calculus of gallbladder without cholecystitis without obstruction Qualifiers: Biliary obstruction: without biliary obstruction Cholelithiasis location: other site Qualified Code(s): K80.80 - Other cholelithiasis without obstruction (3) Epigastric abdominal pain: Status: Acute Code(s): R10.13 - Epigastric pain Medications at Discharge Home Medications dextroamphetamine-amphetamine 30 mg tablet (Adderall) 30 mg PO 0800,1200 ADHD 11/08/21 multivitamin 1 tab PO DAILY supplement 11/08/21 lisinopril 5 mg tablet 5 mg PO DAILY BP 07/04/24 famotidine 20 mg tablet (Acid Financial Services Auditor (famotidine)) 20 mg PO DAILY gastrix reflux 12/03/24 hydrocodone-acetaminophen 5-325mg 5mg-325mg 1 tab PO Q6H PRN pain 3 days #12 tabs 12/03/24 ketotifen fumarate 0.025 % (0.035 %) eye drops 2 drp ophthalmic (eye) BID PRN allergy symptoms 12/03/24 omeprazole 20 mg capsule,delayed release 20 mg PO QDAY gastric reflux 12/03/24 oxycodone 5 mg capsule 5 mg PO Q6H PRN pain 3 days #14 caps 12/06/24 Hospital Course Operations cholecystecomy Procedures None Summary of Care Provided Minutes Spent on Discharge: 36 Hospital Course: Per HPI: CANDICE WORLEY, is a 39 F with a past medical history of essential hypertension; on lisinopril, obesity (class II); with a BMI of 39.8 this admission, history of vaginal delivery x 3, former tobacco abuse (quit ~2009), ADHD; on dextroamphetamine-amphetamine twice daily, migraine headaches, history of depression with anxiety; currently not on treatment, GERD; on omeprazole and recent admission here from July 04, 2024 to July 05, 2024 for treatment of RUQ pain cholelithiasis and elevated LFTs with Dr. Austin of general surgery consulted at that time with CT scan of the abdomen pelvis with IV contrast revealing normal-appearing gallbladder and no duct dilatation with a corresponding gallbladder ultrasound that showed cholelithiasis with no evidence of acute cholecystitis with patient also having consultation with gastroenterology who noted unclear etiology but raised autoimmune hepatitis versus patient having passed a gallstone on her own as a possibility who now re-presents to [facility] ER complaining of RUQ pain. This patient was actually evaluated by Dr. Austin at ~9:24 AM earlier today for evaluation of persistent Right upper quadrant pain that began ~2 weeks ago. She informed the surgeon that she had epigastric abdominal pain that began at ~2 AM while and then tried to eat salad around 6 PM before eventually going to the ER at ~4:32 AM today. She also admits to associated nausea and GERD with the patient prescribed omeprazole by her PCP but she has yet to pickle solution maker the prescription. According to Dr. Austin's note she planned to do cholecystectomy next week as long as insurance will pre-CERT which is expected to take "a couple weeks". She denies associated fever, chills, changes in vision, discharge from eyes, runny nose, sore throat, ear pain, chest pain, palpitations, heart racing, shortness of breath, cough, dysuria, hematuria, headache or rash. In the ER she was noted to have Hyperbilirubinemia; with a total bilirubin of 1.77 mg/dL in addition to evidence of Transaminitis; with AST 1,452 U/L, ALT 1,428 U/L and Alkaline Phosphatase of 164 U/L due to suspected Choledocholithiasis with a corresponding CT scan of the abdomen pelvis with IV contrast that revealed no acute findings in the abdomen or pelvis with scattered colonic diverticulosis without acute diverticulitis in addition to gallbladder ultrasound that revealed cholelithiasis without evidence of acute cholecystitis. I then spoke to the ER physician and recommended repeat GI consultation in this patient who has been admitted for similar complaints but now with worse laboratory findings. She was then admitted to the general medical floor for ongoing care for status expected to extend beyond 2 midnights. Hospital Course: 1. Cholelithiasis with concern for cholecystitis with hyperbilirubinemia and elevated LFTs status postcholecystectomy with liver biopsy on 12/06/2024–39-year-old female presented to the hospital with recurrent issues with right upper quadrant abdominal pain consistent with cholecystitis. She does have cholelithiasis but no obvious signs of cholecystitis on imaging. She did have a HIDA scan and an MRCP both of which were unremarkable, there was note of multiple gallstones in her gallbladder. She did also have hyperbilirubinemia which did resolve indicating that she may have had choledocholithiasis that passed but no obvious signs on MRCP. She was started on Zosyn and IV fluids here in the hospital but she underwent a cholecystectomy and liver biopsy on 12/06/2024. I discussed with her the plan for discharge she expressed understanding the risk and benefits going home and is okay with going home. I do recommend outpatient follow-up with general surgery as well as follow-up with gastroenterology as indicated. 2. Essential hypertension, GERD, ADHD are chronic medical conditions which complicate her care. Her home medications were continued where appropriate. Weight / BMI Weight Weight: 218 lb 7.649 oz Body Mass Index (BMI) 40.1 ABG / Lab / Microbiology Data 12/06/24 07:40 12/06/24 07:40 Laboratory: Laboratory Results - last 24 hr 12/06/24 07:40: WBC 5.3, RBC 4.76, Hgb 12.4, Hct 38.7, MCV 81.3, MCH 26.1 L, MCHC 32.0, RDW Std Deviation 44.5 H, RDW Coeff of María 15.0 H, Plt Count 321, MPV 10.4, Immature Gran % (Auto) 0.400, Neut % (Auto) 62.8, Lymph % (Auto) 22.0, [place] % (Auto) 11.0 H, Eos % (Auto) 3.2, Baso % (Auto) 0.6, Absolute Neuts (auto) 3.3, Absolute Lymphs (auto) 1.16, Nucleated RBC % 0, Sodium 139, Potassium 4.6, Chloride 105, Carbon Dioxide 23.6, Anion Gap 11, BUN 8, Creatinine 0.62 L, Estim Creat Clear Calc 136.70, Est GFR (MDRD) Non-Af 117, BUN/Creatinine Ratio 12.4, Glucose 91, Calcium 9.0, Total Bilirubin 0.45, Direct Bilirubin 0.27, AST 76 H, ALT 486 H, Alkaline Phosphatase 164 H, Total Protein 6.6, Albumin 4.0, Globulin 2.6 Radiography Diagnostic Testing: Radiology Impression Cholangiogram 12/06/24 13:45 IMPRESSION: As per findings. Reading Location: [place] [id number] D/C Instructions DC O2, CPAP, BIPAP Needs Home O2 Discharge instructions: No Meaningful Use Info Meaningful Use Meaningful Use Diagnoses (Choose all that apply): None applicable Discharge Plan Admission Admit Date/Time: 12/03/24 19:48 Attending Provider: Tommy Jon Primary Care Provider: Harriett Flood Consulting Providers: Juan Hdez; Veronica Austin Instructions Additional Instructions / Restrictions: Okay to take ibuprofen 400-600 mg PO q6hr PRN and Tylenol 650 to 1000 mg p.o. every 6 hours as needed along with the oxycodone. Take all pain meds with food. Oxycodone can cause constipation recommend taking daily stool softener (i.e. Colace/docusate) while taking the pain meds. Recommend starting some MiraLAX in 1 to 2 days if no bowel movement. If still no bowel movement the following day recommend taking additional MiraLAX versus magnesium citrate half the bottle and waiting 4-6 hours if still no results take the other half the bottle. Discharge Orders/Prescriptions Prescriptions: New oxycodone 5 mg capsule 5 mg PO Q6H PRN (Reason: pain) 3 Days Qty: 14 0RF Continued omeprazole 20 mg capsule,delayed release(DR/EC) 20 mg PO QDAY multivitamin Tablet 1 tab PO DAILY dextroamphetamine-amphetamine [Adderall] 30 mg tablet 30 mg PO 0800,1200 famotidine [Acid Financial Services Auditor (famotidine)] 20 mg tablet 20 mg PO DAILY lisinopril 5 mg tablet 5 mg PO DAILY ketotifen fumarate 0.025 % (0.035 %) drops 2 drp ophthalmic (eye) BID PRN (Reason: allergy symptoms) hydrocodone-acetaminophen 5-325 mg tablet 1 tab PO Q6H PRN (Reason: pain) 3 Days Qty: 12 0RF Patient Comments: "filled it, but didn't take any" Referrals / Follow Up: Harriett Flood MD [Primary Care Provider, Internal Medicine] Disposition Disposition (needs filled in before D/C Order can be placed): Home, Self Care Charges/Coding Visit Charges Inpatient E&M: 81261 Disch Hosp >30min
--- NOTE | 2024-12-06 15:23 | EX.PCM.DISCH ---
Discharge Instructions Diet Discharge Diet: Light diet - advance as tolerated Activity Discharge Activity: May Not Drive (while taking narcotic pain medications.) May shower in (days): 1 Lifting Restrictions: no lifting >20 lbs x 2 wks, no strenuous exercise for 4 wks Dressing / Incision Call your doctor if your incision/area has: Continuous Slow Oozing, Sudden Increased Bleeding, Increased Pain/ Swelling, Increased Redness, Foul Smelling Discharge and Swelling at the incision site Call your doctor if you observe: Fever of 101 or Higher Remove Dressing in: 2 days Cleanse incision/area with: Soap & Water Additional Dressing/Incision Instructions:: Steri-Strips will fall off in 7 to 10 days, if they do not fall off okay to remove after 10 days. Follow Up Care Please Follow Up With: Veronica Austin MD When: Call the office for a follow-up appointment 2 weeks; after 5 PM and on the weekends call [phone] with any concerns. Test Results: Test results from this visit will be discussed in further detail at your follow-up appointment, if applicable. Discharge Plan Admission Admit Date/Time: 12/03/24 19:48 Attending Provider: Tommy Jon Primary Care Provider: Harriett Flood Consulting Providers: Juan Hdez; Veronica Austin Instructions Additional Instructions / Restrictions: Okay to take ibuprofen 400-600 mg PO q6hr PRN and Tylenol 650 to 1000 mg p.o. every 6 hours as needed along with the oxycodone. Take all pain meds with food. Oxycodone can cause constipation recommend taking daily stool softener (i.e. Colace/docusate) while taking the pain meds. Recommend starting some MiraLAX in 1 to 2 days if no bowel movement. If still no bowel movement the following day recommend taking additional MiraLAX versus magnesium citrate half the bottle and waiting 4-6 hours if still no results take the other half the bottle. Discharge Orders/Prescriptions Prescriptions: New oxycodone 5 mg capsule 5 mg PO Q6H PRN (Reason: pain) 3 Days Qty: 14 0RF Continued omeprazole 20 mg capsule,delayed release(DR/EC) 20 mg PO QDAY multivitamin Tablet 1 tab PO DAILY dextroamphetamine-amphetamine [Adderall] 30 mg tablet 30 mg PO 0800,1200 famotidine [Acid Supervisor Twisting Department (famotidine)] 20 mg tablet 20 mg PO DAILY lisinopril 5 mg tablet 5 mg PO DAILY ketotifen fumarate 0.025 % (0.035 %) drops 2 drp ophthalmic (eye) BID PRN (Reason: allergy symptoms) hydrocodone-acetaminophen 5-325 mg tablet 1 tab PO Q6H PRN (Reason: pain) 3 Days Qty: 12 0RF Patient Comments: "filled it, but didn't take any" Referrals / Follow Up: Harriett Flood MD [Primary Care Provider, Internal Medicine] Disposition Disposition (needs filled in before D/C Order can be placed): Home, Self Care
[2024-12-06] MEDS: fentaNYL 100 MCG/2 ML Ampul 200 MCG IV (15:26)
--- NOTE | 2024-12-06 15:40 | PCM.POST.ANE ---
Anesthesia: Postop Eval I Current Vital Signs Temperature: 97.8 F Pulse Rate: 86 Blood Pressure: 154/99 Respiratory Rate: 16 Pulse Ox: 100 Oxygen Delivery Method: Room Air Assessment Airway patent: Yes Spontaneous unlabored respirations: Yes Mental status: Awake and Calm nausea: No Vomiting: No Anesthesia Complication: No Fluid Hydration Crystalloid volume administer (ml): 1,000 Total IV fluid infused: 1,000 Progress Note Anesthesia document: Postop Eval 1 completed: Yes
--- NOTE | 2024-12-06 18:14 | POSTOPAN2_ITS ---
Anesthesia Postop Eval I Sum Postop Eval Completion status Anesthesia document: Postop Eval 1 completed: Yes Anesthesia Postop Eval I Summary Anesthesia Postop Eval I Summary: Anesthesia Postop Eval I: Assessment Summary Airway patent Yes 12/06/24 15:41 THERAPEUTIC RADIOLOGIST.[email or web address] Spontaneous unlabored Yes 12/06/24 15:41 THERAPEUTIC RADIOLOGIST.[email or web address] respirations Mental status Awake,Calm 12/06/24 15:41 THERAPEUTIC RADIOLOGIST.[email or web address] nausea No 12/06/24 15:41 THERAPEUTIC RADIOLOGIST.[email or web address] Vomiting No 12/06/24 15:41 THERAPEUTIC RADIOLOGIST.[email or web address] Anesthesia Postop Eval I: Fluid Summary Crystalloid volume administer 1,000 12/06/24 15:41 THERAPEUTIC RADIOLOGIST.[email or web address] (ml) Colloids volume administered ( ml) Blood Product volume administered (ml) Total IV fluid infused 1,000 12/06/24 15:41 THERAPEUTIC RADIOLOGIST.NUNO Anesthesia Postop Eval I: Summary Notes Anesthesia Complication No 12/06/24 15:41 THERAPEUTIC RADIOLOGIST.NUNO Anesthesia Complication Comment: Post-operative progress note Anesthesia: Postop Eval II Evaluation Mental status: Awake and Calm Pain Level: 1 nausea: No Vomiting: No Complications Anesthesia Complication: No
--- NOTE | 2024-12-06 18:14 | PCM.POSTANE2 ---
Anesthesia Postop Eval I Sum Postop Eval Completion status Anesthesia document: Postop Eval 1 completed: Yes Anesthesia Postop Eval I Summary Anesthesia Postop Eval I Summary: Anesthesia Postop Eval I: Assessment Summary Airway patent Yes 12/06/24 15:41 [email or web address] Spontaneous unlabored Yes 12/06/24 15:41 [email or web address] respirations Mental status Awake,Calm 12/06/24 15:41 RESUME [email or web address].[email or web address] nausea No 12/06/24 15:41 RESUME WRITER.[email or web address] Vomiting No 12/06/24 15:41 RESUME [email or web address].[email or web address] Anesthesia Postop Eval I: Fluid Summary Crystalloid volume administer 1,000 12/06/24 15:41 [email or web address] (ml) Colloids volume administered ( ml) Blood Product volume administered (ml) Total IV fluid infused 1,000 12/06/24 15:41 RESUME [email or web address].[email or web address] Anesthesia Postop Eval I: Summary Notes Anesthesia Complication No 12/06/24 15:41 RESUME [email or web address].[email or web address] Anesthesia Complication Comment: Post-operative progress note Anesthesia: Postop Eval II Evaluation Mental status: Awake and Calm Pain Level: 1 nausea: No Vomiting: No Complications Anesthesia Complication: No
[2024-12-07 09:50] LABS: Pathology Sent to OSU SEE PATHOLOGY REPORT
== END 2024-12-06 19:55 | disposition home or self-care (01) ==
LOC: ED 17:36 → MS3 20:06
PROVIDERS: Surgery; Admitting Provider Internal Medicine; Emergency Provider Emergency Medicine; PCP Internal Medicine; Visit Provider Family Medicine
PROC: 0FT44ZZ Resection of Gallbladder, Percutaneous Endoscopic Approach (ICD-10-PCS; CPT 47562; principal; 2024-12-06 12:00)
DX: K80.10 Calculus of gallbladder with chronic cholecystitis without obstruction (principal); E66.812 Obesity, class 2; I10 Essential (primary) hypertension; E80.6 Other disorders of bilirubin metabolism; K21.9 Gastro-esophageal reflux disease without esophagitis; G43.909 Migraine, unspecified, not intractable, without status migrainosus; F41.8 Other specified anxiety disorders; K57.30 Diverticulosis of large intestine without perforation or abscess without bleeding; Z68.39 Body mass index [BMI] 39.0-39.9, adult; Z87.891 Personal history of nicotine dependence; R74.01 Elevation of levels of liver transaminase levels; R79.89 Other specified abnormal findings of blood chemistry; F90.9 Attention-deficit hyperactivity disorder, unspecified type
CPT/HCPCS: 47563; S2900; 00790; 47000; 36415; 74177; 74181; 74300; 76000; 76705; 78226; 80048; 80053; 80076; 81001; 81025; 83690; 83735; 84100; 84443; 85025; 93005; 94668; 96361; 96365; 96366; 96367; 96374; 96375; 99221; 99283; 99284; A9537; Q9967; A4216; G0378; J2405